=== PATIENT | male | born 1940 | race Caucasian/White ===

== ENCOUNTER → 2016-04-26 | Outpatient (CLI) | payer MEDICARE ==
[~2016-04-26] MED LIST: /PANT40TA PO; ADV250INH INH; ATOR1TAB19 PO; BISO5TAB5 PO; COUM10TA PO; COUM7.5T PO; COUMADIN PO; DOCU100C PO; DOCU100T PO; FERR325T3 PO; FLUT1LOT; FLUT50SP; FURO20TA2 PO; K-TA10TA2 PO; LASI40TA PO; LEVO500T PO; LIPI10TA PO; LOSA50TA20 PO; META28.32 PO; METAMUCIL PO; MICR10CA PO; MIRA3350 PO; ONE50TAB PO; POTA20IN PO; SPIR1CAP INH; SPIR25TA2 PO; SPRIVIA INH; TYLE325T5 PO; VITAMIN PO; XOPEAER INH; [UNRECOGNIZED DRUG - OTHER] INH; coumadin PO
[2016-04-26 09:19] LABS: INR 2.83
== END ==
LOC: M LAB 08:28
PROVIDERS: ATTEND Internal Medicine Cardiovascular Disease
DX: I48.91 Unspecified atrial fibrillation (principal)

== ENCOUNTER → 2016-05-17 | Outpatient (CLI) | payer MEDICARE ==
[2016-05-17 08:11] LABS: INR 2.14
== END ==
LOC: M LAB 07:39
PROVIDERS: ATTEND Internal Medicine Cardiovascular Disease
DX: I48.91 Unspecified atrial fibrillation (principal)

== ENCOUNTER → 2016-05-24 | Outpatient (CLI) | payer MEDICARE ==
[2016-05-24 09:26] LABS: INR 2.49
== END ==
LOC: M LAB 08:04
PROVIDERS: ATTEND Nurse Practitioner Family
DX: I48.91 Unspecified atrial fibrillation (principal); Z51.81 Encounter for therapeutic drug level monitoring; Z79.01 Long term (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 of anticoagulants

== ENCOUNTER → 2016-06-07 | Outpatient (CLI) | payer MEDICARE ==
[2016-06-07 10:12] LABS: INR 2.6
== END ==
LOC: M LAB 09:26
PROVIDERS: ATTEND Nurse Practitioner Family
DX: Z51.81 Encounter for therapeutic drug level monitoring (principal); Z79.01 Long term (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 of anticoagulants

== ENCOUNTER → 2016-07-05 | Outpatient (CLI) | payer MEDICARE ==
[2016-07-05 09:51] LABS: INR 2.32
== END ==
LOC: M LAB 08:46
PROVIDERS: ATTEND Physician Assistant
DX: I48.91 Unspecified atrial fibrillation (principal)

== ENCOUNTER → 2016-07-17 | Outpatient (CLI) | payer MEDICARE ==
[2016-07-17 10:16] LABS: ALBUMIN 3.3 GM/DL (3.2-5.2); ALBUMIN/GLOBULIN RATIO 1.06 (1.00-1.93); ALKALINE PHOSPHATASE 48 U/L (45-117); ALT/SGPT 16 U/L (12-78); ANION GAP 7 MEQ/L (8-16); AST/SGOT 14 U/L (15-37); BILIRUBIN,TOTAL 0.3 MG/DL (0.2-1.0); BLOOD UREA NITROGEN 24 MG/DL (7-18); CALCIUM LEVEL 7.7 MG/DL (8.8-10.2); CARBON DIOXIDE LEVEL 28 MEQ/L (21-32); CHLORIDE LEVEL 106 MEQ/L (98-107); CHOLESTEROL LEVEL 144 MG/DL (<200); CREATININE FOR GFR 1.23 MG/DL (0.70-1.30); GLOMERULAR FILTRATION RATE > 60.0 (>42); GLUCOSE, FASTING 101 MG/DL (83-110); SODIUM LEVEL 141 MEQ/L (136-145); TOTAL PROTEIN 6.4 GM/DL (6.4-8.2); TRIGLYCERIDES LEVEL 134 MG/DL (<150)
== END ==
LOC: M LAB 09:22
PROVIDERS: ATTEND Physician Assistant
DX: I25.10 Atherosclerotic heart disease of native coronary artery without angina pectoris (principal)

== ENCOUNTER → 2016-08-02 | Outpatient (CLI) | payer MEDICARE ==
[2016-08-02 10:15] LABS: INR 3.05
== END ==
LOC: M LAB 09:32
PROVIDERS: ATTEND Nurse Practitioner Family
DX: Z51.81 Encounter for therapeutic drug level monitoring (principal); Z79.01 Long term (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 of anticoagulants

== ENCOUNTER → 2016-08-30 | Outpatient (CLI) | payer MEDICARE ==
[2016-08-30 08:47] LABS: INR 3.04
== END ==
LOC: M LAB 08:21
PROVIDERS: ATTEND Nurse Practitioner Family
DX: I48.91 Unspecified atrial fibrillation (principal); Z51.81 Encounter for therapeutic drug level monitoring; Z79.01 Long term (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 of anticoagulants

== ENCOUNTER → 2016-09-27 | Outpatient (CLI) | payer MEDICARE ==
[2016-09-27 08:08] LABS: MEAN CORPUSCULAR HEMOGLOBIN 31.9 pg (27.0-33.0); MEAN CORPUSCULAR HGB CONC 32.4 g/dl (32.0-36.5); MEAN CORPUSCULAR VOLUME 98.3 fl (80.0-96.0); RED CELL DISTRIBUTION WIDTH 14.6 % (11.5-14.5)
[2016-09-27 08:43] LABS: ALBUMIN 3.2 GM/DL (3.2-5.2); CALCIUM LEVEL 7.9 MG/DL (8.8-10.2); CREATININE FOR GFR 1.32 MG/DL (0.70-1.30); GLOMERULAR FILTRATION RATE 56.3 (>42); MAGNESIUM LEVEL 2.7 MG/DL (1.8-2.4); PHOSPHORUS LEVEL 3.3 MG/DL (2.5-4.9); POTASSIUM SERUM 4.2 MEQ/L (3.5-5.1)
== END ==
LOC: M LAB 07:37
PROVIDERS: ATTEND Physician Assistant
DX: I50.32 Chronic diastolic (congestive) heart failure (principal); I48.2 Chronic atrial fibrillation; Z95.2 Presence of prosthetic heart valve; Z51.81 Encounter for therapeutic drug level monitoring; Z79.01 Long term (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 of anticoagulants

== ENCOUNTER → 2016-09-27 | Outpatient (CLI) | payer MEDICARE ==
[2016-09-27 08:26] LABS: INR 3.13
== END ==
LOC: M LAB 07:39
PROVIDERS: ATTEND Nurse Practitioner Family
DX: Z51.81 Encounter for therapeutic drug level monitoring (principal); Z79.01 Long term (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 of anticoagulants; I48.91 Unspecified atrial fibrillation

== ENCOUNTER → 2016-10-25 | Outpatient (CLI) | payer MEDICARE ==
[~2016-10-25] MED LIST changes: +ASPI81TA21 PO; +ATOR1TAB21 PO; -DOCU100C PO; +DOCU100C16 PO; +ERGO500014 PO; +FLON1SPR; +FOLI1TAB4 PO; +FURO40TA2 PO; +LEVAINH INH; +LOSA25TA8 PO; +METO5TA; +NITR0.4S14 SL; +OMEP20CA3 PO; +OMEP40CA2 PO; +OPTI0.5D5 OS; +POTA1TAB14 PO; +PROAAER10 INH; +SPIR1AER INH; +VITA10006 PO; +VITA200028 PO; +VITMTA PO; -XOPEAER INH
[2016-10-25 10:49] LABS: INR 2.85
== END ==
LOC: M LAB 09:52
PROVIDERS: ATTEND Nurse Practitioner Family
DX: I48.91 Unspecified atrial fibrillation (principal); Z79.01 Long term (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 of anticoagulants

== ENCOUNTER 2016-11-17 17:10 | Inpatient (IN) | payer MEDICARE ==
[~2016-11-17] VITALS: Ht 182.9 cm; Wt 127.5 kg
[~2016-11-17 17:10] MED LIST changes: -ASPI81TA21 PO; -ATOR1TAB21 PO; -ERGO500014 PO; -FLON1SPR; -FOLI1TAB4 PO; -FURO40TA2 PO; -LOSA25TA8 PO; -METO5TA; -NITR0.4S14 SL; -OMEP20CA3 PO; -OMEP40CA2 PO; -OPTI0.5D5 OS; -POTA1TAB14 PO; -PROAAER10 INH; -SPIR1AER INH; -VITA10006 PO; -VITA200028 PO; -VITMTA PO
[2016-11-17] MEDS ORDERED: METO5TA (17:43)
[2016-11-17] MEDS ORDERED: NS 500 ML IV ONE (18:15)
[2016-11-17 18:29] LABS: BASO # 0.1 K/mm3 (0.0-0.2); BASO % 0.7 % (0.0-1.0); EOS # 0.2 K/mm3 (0.0-0.50); EOS % 2.4 % (0.0-3.0); LARGE UNSTAINED CELL # 0.1 K/mm3 (0.0-0.4); LARGE UNSTAINED CELL % 1.4 % (0.0-4.0); LYMPH % 11.1 % (24.0-44.0); MEAN CORPUSCULAR HEMOGLOBIN 31.8 pg (27.0-33.0); MEAN CORPUSCULAR HGB CONC 32.7 g/dl (32.0-36.5); MEAN CORPUSCULAR VOLUME 97.3 fl (80.0-96.0); MONO # 0.6 K/mm3 (0.0-0.8); MONO % 6.8 % (0.0-5.0); NEUTROPHILS # 6.3 K/mm3 (1.8-7.7); NEUTROPHILS % 77.6 % (36.0-66.0); PLATELET COUNT, AUTOMATED 285 k/mm3 (150-450); RED CELL DISTRIBUTION WIDTH 13.8 % (11.5-14.5); WHITE BLOOD COUNT 8.1 K/mm3 (4.0-10.0)
[2016-11-17 18:37] LABS: INR 3.24
--- NOTE | 2016-11-17 18:40 | REP ---
REASON: Renal failure. COMPARISON: Multiple, latest, 01/26/2015. The technique utilized in obtaining the radiograph has magnified the cardiac silhouette and accentuated the interstitial markings. There is global cardiomegaly status quo. There has been previous median sternotomy. There are chronic lung base changes. No acute patchy parenchymal opacities or pleural effusions have developed. There is no change in the osseous structures. IMPRESSION: Cardiomegaly and chronic changes without evidence of acute cardiopulmonary disease. Signed by Ganesh Jacobson DO 11/17/2016 07:52 P
[2016-11-17 18:47] LABS: CALCIUM LEVEL 8.5 MG/DL (8.8-10.2); CREATININE FOR GFR 3.05 MG/DL (0.70-1.30); GLOMERULAR FILTRATION RATE 21.4 (>42); POTASSIUM SERUM 3.4 MEQ/L (3.5-5.1)
[2016-11-17] MEDS ORDERED: ATOR1TAB21 PO (19:48)
[2016-11-17] MEDS ORDERED: POTA1TAB14 PO (19:51)
[2016-11-17] MEDS ORDERED: VITA10006 PO (19:52)
[2016-11-17] MEDS ORDERED: NITR0.4S14 SL (19:52)
[2016-11-17] MEDS ORDERED: VITMTA PO (19:52)
[2016-11-17] MEDS ORDERED: ASPI81TA21 PO (19:52)
[2016-11-17] MEDS ORDERED: OMEP20CA3 PO (19:53)
[2016-11-17] MEDS: ADVAIR HFA 115/21MCG INHALER INH SCH (21:00)
[2016-11-17] MEDS ORDERED: NS 1,000 ML IV SCH (21:20)
[2016-11-17] MEDS ORDERED: ONDANSETRON 4MG/2ML VIAL (J2405) IV PRN (21:30)
[2016-11-17] MEDS ORDERED: POTASSIUM CHLORIDE 10 MEQ SR TABLET PO ONE (21:30)
[2016-11-17] MEDS ORDERED: NITROGLYCERIN 0.4 MG SUBL TABLET SL PRN (21:30)
--- NOTE | 2016-11-17 21:41 | HPEPDOC ---
Medical History and Physical Date of Admission History and Physical PRIMARY CARE PROVIDER: Dr. Tiago Jo ATTENDING: Dr. Matteo Martin CHIEF COMPLAINT: Abnormal labs HISTORY OF PRESENT ILLNESS: This is a 76-year-old male past history of diastolic heart failure, hypertension , aortic stenosis status post aortic valve replacement as well as atrial fibrillation on Coumadin, chronic interstitial fibrosis, hypertension, BLANE not on CPAP who presents with notable abnormal labs. The patient has been having lower extremity edema which has been managed by his primary care physician. Patient states that he had his Lasix increased followed by addition of metolazone over the past 10 days. The patient states that the swelling is significantly improved. 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 Patient was then advised to go to the emergency department. Patient states he is urinating well. Denies any dysuria. No chest pain/ shortness of breath/palpitations. No nausea/vomiting/abdominal pain. PAST MEDICAL HISTORY: As per HPI PAST SURGICAL HISTORY: AVR, CAD status post PCI, tonsillectomy SOCIAL HISTORY: History of tobacco abuse 2 packs per day 30 years. Quit many years ago. No alcohol or illicit drug use. FAMILY HISTORY: Noncontributory ALLERGIES: Please see below. REVIEW OF SYSTEMS: HEENT: [Denies sore throat/headache] CARDIOVASCULAR: [Denies chest pain/palpitations] RESPIRATORY: [Denies shortness of breath/cough] GASTROINTESTINAL: [denies nausea/vomiting] GENITOURINARY: [Denies dysuria/urinary urgency]. MUSCULOSKELETAL: [Denies myalgias/arthralgias] NEUROLOGICAL: [Denies any focal weakness] HOME MEDICATIONS: Please see below. PHYSICAL EXAMINATION: Vitals: (see below) General: No acute distress, laying comfortably in bed. HEENT: Moist mucous membranes. Neck: No JVD or lymphadenopathy Cardiac: Irregularly irregular, No murmurs Pulm: Clear to auscultation b/l. No wheezing, rhonchi Abd: NT/ND + BS Ext: 1+ pitting edema bilateral lower extremities. No cyanosis. LABORATORY DATA: See below. IMAGING: Chest x-ray 11/17/16 IMPRESSION:Cardiomegaly and chronic changes without evidence of acute cardiopulmonary disease. MICROBIOLOGY: Please see below. ASSESSMENT/PLAN: 1. Acute renal failure secondary to diuretics as well as losartan. We will hold Lasix, metolazone, spironolactone. Gentle hydration. Continue to monitor renal function. Nephrology consulted. 2. History of diastolic heart failure- compensated. Diuretics on hold. 3. History of atrial fibrillation- on Coumadin. Supratherapeutic. Coumadin held at this time. Consider restarting if INR less than 3 tomorrow. 4. Hypertension- patient is relatively hypotensive on admission. Improved with hydration. Hold losartan and diuretics. 5. History of obstructive sleep apnea not on CPAP- states he'll be going for another sleep study soon. 6. Chronic anemia- no acute bleeding at this time. States he has a colonoscopy scheduled for Sunday with plan to bridge him to heparin prior to the colonoscopy. 7. 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 History of CAD status post PCI- on beta johnnie, aspirin, statin. ? If aspirin should be continued with his current anticoagulation. DVT prophylaxis- on Coumadin Patient followed by Dr. Martin starting 11/18/16 at 7 AM. Vital Signs Vital Signs Date Time Temp Pulse Resp B/P (MAP) Pulse Ox O2 Delivery O2 Flow Rate FiO2 11/17/16 20:10 60 16 99/47 (64) 96 Room Air 11/17/16 17:11 97.6 Laboratory Data Labs 24H Laboratory Tests 2 11/17/16 17:58: White Blood Count 8.1, Red Blood Count 2.98L, Hemoglobin 9.5L, Hematocrit 29.0L , Mean Corpuscular Volume 97.3H, Mean Corpuscular Hemoglobin 31.8, Mean Corpuscular Hemoglobin Concent 32.7, Red Cell Distribution Width 13.8, Platelet Count 285, Neutrophils (%) (Auto) 77.6H, Lymphocytes (%) (Auto) 11.1L, Monocytes (%) (Auto) 6.8H, Eosinophils (%) (Auto) 2.4, Basophils (%) (Auto) 0.7 , Neutrophils # (Auto) 6.3, Lymphocytes # (Auto) 1.0L, Monocytes # (Auto) 0.6, Eosinophils # (Auto) 0.2, Basophils # (Auto) 0.1, Large Unclassified Cells % 1.4 , Large Unclassified Cells # 0.1, Prothrombin Time 34.6H, Prothromb Time International Ratio 3.24, Activated Partial Thromboplast Time 47.9H, Anion Gap 13, Glomerular Filtration Rate 21.4L, Blood Urea Nitrogen 105H, Creatinine 3.05H , Sodium Level 137, Potassium Level 3.4L, Chloride Level 92L, Carbon Dioxide Level 32, Calcium Level 8.5L, Thyroid Stimulating Hormone (TSH) 5.870H 11/17/16 18:46: Urine Appearance CLEAR, Urine Color YELLOW, Urine pH 5.0, Urine Specific Avenue 1.012, Urine Protein NEGATIVE, Urine Glucose (UA) NEGATIVE, Urine Ketones NEGATIVE, Urine Urobilinogen 0.2, Urine Bilirubin NEGATIVE, Urine Leukocyte Esterase 1+H, Urine Blood NEGATIVE, Urine Nitrite NEGATIVE, Urine WBC (Auto) 6H, Urine RBC (Auto) 4H, Urine Hyaline Casts (Auto) 38, Urine Bacteria ( Auto) NEGATIVE, Urine Squamous Epithelial Cells 0, Urine Amorphous Sediment SMALLH, Urine Mucus (Auto) SMALL, Urine Sperm (Auto) CBC/BMP Laboratory Tests 11/17/16 17:58 Red Blood Count 2.98 L, Mean Corpuscular Volume 97.3 H, Mean Corpuscular Hemoglobin 31.8, Mean Corpuscular Hemoglobin Concent 32.7, Red Cell Distribution Width 13.8, Neutrophils (%) (Auto) 77.6 H, Lymphocytes (%) (Auto) 11.1 L, Monocytes (%) (Auto) 6.8 H, Eosinophils (%) (Auto) 2.4, Basophils (%) ( Auto) 0.7, Neutrophils # (Auto) 6.3, Lymphocytes # (Auto) 1.0 L, Monocytes # ( Auto) 0.6, Eosinophils # (Auto) 0.2, Basophils # (Auto) 0.1, Calcium Level 8.5 L Home Medications Scheduled Ascorbic Acid (Vitamin C) 1,000 Mg Tab, 1,000 MG PO DAILY Aspirin (Aspir-Low) 81 Mg Tab, 81 MG PO DAILY Atorvastatin Calcium (Atorvastatin Calcium) 20 Mg Tab, 20 MG PO QHS Bisoprolol Fumarate (Bisoprolol Fumarate) 5 Mg Tab, 5 MG PO QAM Ferrous Sulfate (Ferrous Sulfate) 325 Mg Tab, 325 MG PO BID Furosemide (Furosemide) 20 Mg Tab, 30 MG PO TID Losartan Potassium (Losartan Potassium) 50 Mg Tab, 50 MG PO QHS Multivitamins *[facility] STOCKED* (Thera M Plus *[facility] STOCKED*) 1 Tab Tab, 1 TAB PO DAILY Omeprazole (Omeprazole) 20 Mg Cap, 20 MG PO DAILY Polyethylene Glycol (Miralax) 1 Pow Pow, 17 GM PO DAILY Potassium Chloride (Potassium Chloride ER) 20 Meq Tab, 20 MEQ PO DAILY Salmeterol/Fluticasone (Advair Diskus 250-50 Mcg/Dose) 14 Puff/Inhaler Aerp, 1 PUFF INH BID Spironolactone (Spironolactone) 25 Mg Tab, 25 MG PO DAILY Tiotropium [place] Monohydrate (Spiriva Handihaler) 18 Mcg Cap, 18 MCG INH QHS Warfarin Sod (Coumadin) 10 Mg Tab, 10 MG PO 2XW SUNDAY AND THURSDAYS Warfarin Sod (Coumadin) 7.5 Mg Tab, 7.5 MG PO 5XW MON, WED, SUN, SAT, SUN Scheduled PRN Nitroglycerin (Nitroglycerin) 0.4 Mg Sub, 0.4 MG SL Q5MP PRN for CHEST PAIN Allergies Coded Allergies: No Known Drug Allergy (Unverified Allergy, Unknown, 07/24/12) NICOLE YAN MD Nov 17, 2016 21:41
[2016-11-17] MEDS: ATORVASTATIN 20 MG TAB PO SCH (22:46)
[2016-11-17 23:15] VITALS: BP 122/55
[2016-11-18] VITALS: BP 122/55
[2016-11-18 04:00] VITALS: BP 122/58
[2016-11-18] MEDS: TIOTROPIUM INHALER/CAPSULE (SPIRIVA) INH SCH (07:17)
[2016-11-18 07:35] LABS: MEAN CORPUSCULAR HEMOGLOBIN 33.1 pg (27.0-33.0); MEAN CORPUSCULAR HGB CONC 33.3 g/dl (32.0-36.5); MEAN CORPUSCULAR VOLUME 99.4 fl (80.0-96.0); RED CELL DISTRIBUTION WIDTH 13.9 % (11.5-14.5)
[2016-11-18 07:43] LABS: INR 3.68
[2016-11-18 07:57] LABS: ALBUMIN 3.3 GM/DL (3.2-5.2); ALBUMIN/GLOBULIN RATIO 0.92 (1.00-1.93); BILIRUBIN,TOTAL 0.2 MG/DL (0.2-1.0); CALCIUM LEVEL 8.7 MG/DL (8.8-10.2); CREATININE FOR GFR 2.03 MG/DL (0.70-1.30); GLOMERULAR FILTRATION RATE 34.3 (>42); POTASSIUM SERUM 3.5 MEQ/L (3.5-5.1); TOTAL PROTEIN 6.9 GM/DL (6.4-8.2)
[2016-11-18 08:00] VITALS: BP 111/56
[2016-11-18] MEDS ORDERED: POTASSIUM CHLORIDE 10 MEQ SR TABLET PO ONE (08:30)
[2016-11-18] MEDS: MIRALAX *UNIT DOSE* 17GM PACKET PO SCH (09:38)
[2016-11-18] MEDS: ASCORBIC ACID 500 MG TAB PO SCH (09:38)
[2016-11-18] MEDS: OMEPRAZOLE 20 MG CAP PO SCH (09:39)
[2016-11-18] MEDS: FERROUS SULFATE 325MG TAB PO SCH ×2 (09:39→21:37)
[2016-11-18] MEDS: ASPIRIN 81 MG ENTERIC TAB PO SCH (09:39)
[2016-11-18] MEDS: MULTIVITAMINS/MINERALS THERAP 1 TAB PO SCH (09:39)
[2016-11-18] MEDS: BISOPROLOL FUMARATE 5 MG TAB PO SCH (09:42)
[2016-11-18] MEDS: ADVAIR HFA 115/21MCG INHALER INH SCH ×2 (10:52→19:51)
--- NOTE | 2016-11-18 11:47 | IPN ---
DATE OF EXAM: 11/18/2016 SUBJECTIVE: Today, the patient tells me that he is feeling well. He tells me that he has not felt unwell throughout the last week. e denies chest pain, shortness of breath, fevers, chills, nausea, vomiting, or diarrhea. OBJECTIVE: Vital Signs: Temperature 97.5. Pulse 63, irregularly irregular. Respiratory rate 18. Blood pressure (BP) 122/58. Oxygen saturation 97% on room air. General: He is a very pleasant, obese, elderly, man sitting in a recliner. He does not appear to be in any acute distress whatsoever. HEENT: Cranial nerves II-XII grossly intact. He has moist mucous membranes. No elevation of central venous pressure (CVP). He does have enlarged neck. Cardiovascular Exam: S1, S2, irregularly irregular. Respiratory Exam: Clear to auscultation. Abdominal Exam: Grossly obese. Bowel sounds are present. The abdomen is soft. Extremities: He does have trace edema bilaterally. LABORATORY STUDIES: Today, WBC 7.0, hemoglobin 9.1, hematocrit 27.2, platelet count 234. Chemistry panel: Sodium 135, potassium 3.5, chloride 95, bicarbonate 31, BUN 94, down from 105, creatinine 2.0, down from 3.0. He had a TSH, which was mildly elevated at 5.7. INR is 3.6. It is mildly abnormal. IMAGING: The patient had a chest x-ray that revealed cardiomegaly and chronic changes without evidence of acute cardiopulmonary disease. ASSESSMENT AND PLAN: This is a 76-year-old man with acute on chronic kidney disease. PROBLEMS: 1. Acute on chronic kidney disease. The patient is on a diuretic and his diuretic has recently been titrated up with the addition of metolazone. It appears though he has been over diuresed. At this time, his diuretics have been held. He has been gently hydrated and his renal function is returning to his baseline. Creatinine is 2 today. His baseline appears to be approximately 1.2. We will continue him on metolazone and aldactone, as well as his angiotensin receptor johnnie (ARB). Nephrology has been consulted at the time of admission. 2. History of diastolic heart failure. The patient appears compensated. He does have bilateral peripheral edema. I suspect it may be related to chronic venous stasis. 3. Atrial fibrillation. He is on Coumadin. His international normalized ratio (INR) is supratherapeutic and thus, his Coumadin is being held. 4. Hypertension. His BP was soft at the time of admission. His antihypertensives. Some of them are on hold secondary to the kidney injury. We are gently hydrating him. 5. History of obstructive sleep apnea. The patient is noncompliant with continuous positive airway pressure (CPAP). He is scheduled to undergo a repeat sleep study soon. 6. Chronic anemia. He has a colonoscopy scheduled for on Sunday, and I suspect he will be able to be discharged prior to then and he will be able to make that appointment. 7. Aortic stenosis status post aortic valve replacement. 8. Coronary artery disease status post PCI. He is on aspirin, beta-johnnie and a statin. 9. Deep vein thrombosis (DVT) prophylaxis. He has a supratherapeutic INR. 10. Gastroesophageal reflux disease. He is on omeprazole. DISPOSITION: I suspect the patient may be able to be discharged as early as tomorrow.
[2016-11-18 12:00] VITALS: BP 123/56
[2016-11-18 12:17] LABS: MAGNESIUM LEVEL 3.2 MG/DL (1.8-2.4); PERCENT SATURATION 17.4 % (19.7-37.4)
[2016-11-18 16:00] VITALS: BP 143/65
[2016-11-18 20:00] VITALS: BP 149/67
[2016-11-18] MEDS: ATORVASTATIN 20 MG TAB PO SCH (21:37)
[2016-11-19] VITALS: BP 143/65
--- NOTE | 2016-11-19 02:31 | ECGEPIP ---
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
[2016-11-19 04:00] VITALS: BP 126/58
--- NOTE | 2016-11-19 05:28 | IPN ---
DATE OF SERVICE: 11/18/2016 Mr. Roy is seen this morning on his bedside. He is sitting in the chair and feels well. He was seen last evening due to acute renal failure. He has been receiving intravenous (IV) fluid. He reports eating well and denies any nausea, vomiting, dyspnea or chest pain. PHYSICAL EXAMINATION: Temperature 97.6 degrees Fahrenheit, heart rate 60 per minute and respiratory rate 18 per minute. Blood pressure 118/83 mmHg and oxygen saturation 97% on room air. Head is atraumatic. Neck is supple and without any jugular venous distention (JVD) or thyroid enlargement. He has mild hepatojugular reflux. Heart sounds are irregular with prosthetic valve sounds. Lungs sound clear to auscultation bilaterally. Abdomen: Soft and nontender and without palpable organomegaly. Bowel sounds normal. Extremities have no cyanosis or clubbing. He does have trace of ankle edema. Neurologically, he is awake, alert and oriented times three. Today's labs show sodium 135 and potassium 3.5. BUN 94 and creatinine 2.03. Chloride is 31. WBC count 7.0, hemoglobin 9.1 and hematocrit 27.3. PROBLEMS: 1. Acute renal failure superimposed on chronic kidney disease. Related to prerenal azotemia caused by over diuresis. The patient was given intravenous (IV) fluid. His oral intake is also adequate. I will stop his IV fluid in view of his prior history of congestive heart failure and atrial fibrillation. His diuretics will remain on hold for the next 24 hours. 2. Hypokalemia. Potassium is being replaced with oral potassium chloride 40 mEq. His magnesium level is also being checked. 3. Anemia most likely related to iron deficiency caused by chronic blood loss. Iron studies are being added. Depending upon his iron results, we will give him either IV iron or consider with Aranesp. At present, we will continue with oral iron supplement. 4. History of diastolic congestive heart failure and atrial fibrillation. His ventricular rate is well-controlled. Volume status is well-compensated. We will continue to hold his diuretics for next 24 hours.
[2016-11-19 05:34] LABS: MEAN CORPUSCULAR HEMOGLOBIN 33.1 pg (27.0-33.0); MEAN CORPUSCULAR HGB CONC 33.3 g/dl (32.0-36.5); MEAN CORPUSCULAR VOLUME 99.5 fl (80.0-96.0); RED CELL DISTRIBUTION WIDTH 13.4 % (11.5-14.5); WHITE BLOOD COUNT 6.9 K/mm3 (4.0-10.0)
[2016-11-19 05:46] LABS: CALCIUM LEVEL 8.5 MG/DL (8.8-10.2); CREATININE FOR GFR 1.52 MG/DL (0.70-1.30); GLOMERULAR FILTRATION RATE 47.8 (>42); POTASSIUM SERUM 3.7 MEQ/L (3.5-5.1)
[2016-11-19] MEDS: ADVAIR HFA 115/21MCG INHALER INH SCH ×2 (07:08→19:50)
[2016-11-19] MEDS: TIOTROPIUM INHALER/CAPSULE (SPIRIVA) INH SCH (07:08)
[2016-11-19 08:00] VITALS: BP 124/60
[2016-11-19 08:21] LABS: INR 3.5
[2016-11-19] MEDS: ASCORBIC ACID 500 MG TAB PO SCH (08:51)
[2016-11-19] MEDS: OMEPRAZOLE 20 MG CAP PO SCH (08:51)
[2016-11-19] MEDS: MULTIVITAMINS/MINERALS THERAP 1 TAB PO SCH (08:51)
[2016-11-19] MEDS: FERROUS SULFATE 325MG TAB PO SCH ×2 (08:51→21:15)
[2016-11-19] MEDS: ASPIRIN 81 MG ENTERIC TAB PO SCH (08:51)
[2016-11-19] MEDS: MIRALAX *UNIT DOSE* 17GM PACKET PO SCH (08:51)
[2016-11-19] MEDS: BISOPROLOL FUMARATE 5 MG TAB PO SCH (08:54)
--- NOTE | 2016-11-19 09:56 | CR ---
DATE OF CONSULTATION: 11/17/2016 REQUESTING: Beny Wall MD REASON FOR CONSULTATION: Acute renal failure. HISTORY OF PRESENT ILLNESS: Mr. Roy is 76-year-old gentleman with known history of diastolic congestive heart failure, hypertension, aortic stenosis, status post aortic valve replacement and atrial fibrillation. The patient and his report that he had worsening leg edema due to which his diuretic was increased by the primary physician with addition of metolazone. He did diurese; however, yesterday he had labs done by the cardiology office and his BUN was noticed to be above 90 and creatinine close to 3 due to which he was sent to the emergency room. His repeat labs in the emergency room showed about 100 mg of BUN and creatinine 3.0. He is admitted and a nephrology consultation was requested. The patient is seen in the evening of November 17. PAST MEDICAL AND SURGICAL HISTORY SIGNIFICANT FOR: 1. Longstanding atrial fibrillation. 2. Aortic stenosis, status post aortic valve replacement. 3. Hypertension. 4. Diastolic congestive heart failure. 5. History of obstructive sleep apnea on CPAP. 6. History of chronic interstitial fibrosis. 7. History of hyperlipidemia. 8. History of gastroesophageal reflux disease. 9. History of anemia. MEDICATIONS: Home medications include vitamin C 1000 mg daily, aspirin 81 mg daily, atorvastatin 20 mg daily, bisoprolol 5 mg daily, ferrous sulfate 325 mg twice a day, Lasix 30 mg three times a day, metolazone 2.5 mg daily for last week or 10 days, losartan 50 mg daily, multivitamin one tablet daily, omeprazole 20 mg daily, MiraLax one packet daily, potassium chloride 20 mEq daily, Advair discus 250/50 twice a day, spironolactone 25 mg daily, Spiriva inhaler 18 mcg daily, Coumadin 10 mg on Sunday and and 7.5 mg daily rest of the week. ALLERGIES: He has no known drug allergies. PERSONAL AND SOCIAL HISTORY: The patient is and lives with his . He quit smoking many years ago and did have history of two packs of smoking daily. There is no history of alcohol or drug use. FAMILY HISTORY: Negative for end-stage renal disease. REVIEW OF SYSTEMS: The patient denies any fever or chills. He reports not feeling well for the last couple of weeks. Initially had worsening leg edema and increasing shortness of breath. His leg edema has improved. However, he still did not feel very well. Ears, nose and throat are unremarkable. Cardiovascular system: Significant for history of atrial fibrillation and prior aortic valve replacement with metallic valve. He has been on chronic anticoagulation. GASTROINTESTINAL (GI) SYSTEM: Negative for nausea, vomiting or diarrhea. He denies any rectal bleeding or black colored stools. GENITOURINARY () SYSTEM: Negative for dysuria, hematuria or kidney stones. His baseline kidney function is about stage III. ENDOCRINE SYSTEM: Negative for diabetes or thyroid problems. HEMATOLOGICAL SYSTEM: Significant for anemia and chronic anticoagulation. PSYCHOSOCIAL SYSTEM: Negative for depression, anxiety. NEUROLOGICAL SYSTEM: Negative for seizures or stroke. SKIN: Negative for rash or ulcers. MUSCULOSKELETAL SYSTEM: Significant for increasing leg edema. He denies any significant arthritis. PHYSICAL EXAMINATION: The patient is awake and alert at the time of my visit. His is also present in the room. Temperature 97.5 degrees Fahrenheit, Heart rate 64 per minute and respiratory rate 18 per minute. Blood pressure 122/58 mmHg and oxygen saturation 97% on room air. HEAD: Atraumatic. Ears, nose and throat are unremarkable. NECK: Supple and without any jugular venous distension (JVD). There is no thyroid enlargement. HEART: Sounds are irregular with prosthetic valve click. LUNGS: Sound clear to auscultation bilaterally. ABDOMEN: Soft and nontender and without palpable organomegaly. Bowel sounds are normal. EXTREMITIES: Have trace of chronic edema on his ankles. There is no cyanosis or clubbing. SKIN: Has no rash or ulcers. NEUROLOGICAL: He is awake, alert and oriented times three. LABORATORY DATA: Sodium 137 and potassium 3.4. BUN 105 and creatinine 3.05. Glucose 120, calcium 8.5. Thyroid simulating hormone (TSH) level is 5.87. White blood count (WBC) 8.1, hemoglobin 9.5 and hematocrit 29.0. INR 3.24. Urinalysis showed 6 white blood cells and 4 red blood cells. There is no protein or blood on the dipstick. Chest x-ray done in the emergency room showed cardiomegaly with chronic changes and no evidence of effusion or infiltrate. PROBLEMS: 1. Acute renal failure superimposed on chronic kidney disease. The patient is known to have stage III of chronic kidney disease at baseline. His serum creatinine has been in the range of 1.3 mg/dL earlier this year. Now his kidney function has worsened significantly. Acute renal failure is related to over diuresis. The patient is receiving IV fluid at 60 per hour. His diuretics have already been stopped. Will need to use caution in giving him IV fluids as he had congestive heart failure with shortness of breath and increased leg edema for which he required increased diuretic dose. We will reevaluate him in the morning. 2. History of congestive heart failure and atrial fibrillation. His ventricular rate is well-controlled. At present, he is well compensated. His diuretics have been put on hold. He is receiving IV fluid and will have to monitor closely. 3. Anemia and possibility of gastrointestinal (GI) blood loss. He has been on chronic anticoagulation with INR 3.24. It is possible that he may have some low grade blood loss. We will add iron studies to his lab work. At present, there is no indication for transfusion and will have to monitor his complete blood count (CBC). 4. Hypokalemia is related to diuretics. We will replace his potassium with oral potassium chloride and recheck his electrolytes. Will also check his magnesium level. I thank you for involving me in the care of Mr. Roy. I will follow him along with you.
[2016-11-19] MEDS ORDERED: POTASSIUM CHLORIDE 10 MEQ SR TABLET PO ONE (12:00)
--- NOTE | 2016-11-19 12:37 | IPN ---
DATE: 11/19/2016 SUBJECTIVE: The patient feels well. He is asymptomatic as he has been throughout his entire presentation. OBJECTIVE: VITAL SIGNS: Temperature 98,1, pulse 70, respiratory rate 18, blood pressure 124/60, oxygen saturation 97% on room air. GENERAL: He is a pleasant, elderly man sitting on a couch. He does not appear to be in any acute distress. HEENT: Cranial nerves II-XII are grossly intact. Moist mucous membranes. CARDIOVASCULAR EXAM: S1, S2, regular. He has a mechanical S2. RESPIRATORY EXAM: Clear. ABDOMINAL EXAM: Obese. EXTREMITIES: No clubbing or cyanosis. There is 1+ edema bilaterally. LABORATORY STUDIES: WBC 6.9, hemoglobin 8.8, hematocrit 26.5, platelet count 232. Chemistry panel: Sodium 141, potassium 3.7, repleted, chloride 101, bicarbonate 32, BUN 75 down from a peak of 105, creatinine 1.5 down from a peak of 3. His iron level is low. TSH is slightly elevated. INR today is 3.5. No new imaging. ASSESSMENT AND PLAN: This is a 76-year-old man with acute on chronic kidney disease. PROBLEMS: 1. Acute on chronic kidney disease. Dr. John's help has been appreciated. His diuretics are on hold. His renal function is improving. He is no longer on IV fluids. We are replacing his potassium. 2. Chronic anemia. The patient has been undergoing an outpatient preparation for colonoscopy this coming Sunday. The patient follows with Dr. Barriga and as per Dr. Barriga, related to his mechanical aortic valve, he is not to be bridged with Lovenox. His international normalized ratio (INR) should be allowed to naturally come down and be started on a heparin drip when his INR is below 2.5. Once his INR is appropriately low, he can then undergo colonoscopy with Dr. Giles. Following the colonoscopy, he will have to be bridged once again on the heparin drip until his INR is therapeutic once again 2.5 to .5. The patient will remain inpatient for the duration of this. I suspect it will take a week and a half given his elevated INR today. I think the earliest he would be able to have a colonoscopy is Sunday, but I think it is more likely Sunday. I did discuss the case with Dr. Giles, and we confirmed the plan. 3. History of diastolic congestive heart failure. Appears fairly well compensated. He does have bilateral peripheral edema. It may be related to chronic venous stasis. 4. Atrial fibrillation. He is anticoagulated with Coumadin and will be anticoagulated as outlined above. 5. Hypertension. Some of his antihypertensives had been held at the time of admission. 6. Obstructive sleep apnea. He is noncompliant with continuous positive airway pressure (CPAP). He is scheduled to undergo a repeat sleep study in the near future. 7. Aortic stenosis, status post mechanical aortic valve. Anticoagulation as outlined above. 8. Coronary artery disease, status post percutaneous coronary intervention. He is on aspirin, beta johnnie and a statin. 9. Gastroesophageal reflux disease. He is on omeprazole. 10. Deep vein thrombosis (DVT) prophylaxis. He is therapeutic with Coumadin. DISPOSITION: The patient will likely be here for a week and a half until his colonoscopy is completed, can be bridged from a heparin drip back to Coumadin therapeutic. MTDD
[2016-11-19 12:51] VITALS: BP 143/65
[2016-11-19 18:00] VITALS: BP 118/60
--- NOTE | 2016-11-19 19:24 | IPN ---
DATE: 11/19/3016 Mr. Roy is seen this morning on his bedside. He is sitting in the chair at the time of my visit. He is feeling well and denies any complaints at this time. There is no dyspnea, chest pain, nausea or vomiting. On physical examination, temperature 97.7 degrees Fahrenheit, heart rate 70 per minute and respiratory rate 18 per minute. Blood pressure 143/65 mmHg and oxygen saturation 97% on room air. He weighed 126 kg today. Intake and output records from yesterday showed total intake 2100 and output 600 mL. Head is atraumatic. Neck is supple and without any significant jugular venous distention (JVD). There is no thyroid enlargement and trachea is midline. Ears, nose and throat are unremarkable. Heart exam reveals irregular rhythm with prosthetic valve sounds. There is no gallop. Lungs sound clear to auscultation bilaterally. Abdomen is soft, obese and nontender. Bowel sounds are normal and there is no palpable organomegaly. Extremities have no cyanosis or clubbing. Lower extremity edema is about 1+ around the ankles. Skin has no rash or ulcers. Neurologically, he is awake, alert and oriented times three. Today's labs show WBC count 6.9, hemoglobin 8.8 and hematocrit 26.5. Platelets 232. Sodium 141 and potassium 3.7. BUN 75 and creatinine 1.52. PROBLEMS: 1. Acute renal failure superimposed on chronic kidney disease. Acute renal failure was most likely caused by dehydration and has improved significantly since his diuretics were put on hold since admission. He remains off diuretics and will monitor for next 24 hours. At this point, his volume status remains well compensated. He is not receiving any more IV fluid. 2. Congestive heart failure. Volume status seems clinically well compensated. Diuretics will remain on hold. 3. Anemia. The patient does have worsening anemia with hemodilution. He also has mild iron deficiency. He is in need for colonoscopy and I agree for it. In view of his chronic anticoagulation, he will be bridged with heparin due to his prosthetic aortic valve and atrial fibrillation. We will continue to monitor his renal function and electrolytes.
[2016-11-19] MEDS: ATORVASTATIN 20 MG TAB PO SCH (21:15)
[2016-11-19 22:00] VITALS: BP 130/62
[2016-11-20 02:00] VITALS: BP 110/53
[2016-11-20 05:46] LABS: INR 3.08
[2016-11-20 05:50] LABS: CALCIUM LEVEL 8.8 MG/DL (8.8-10.2); CREATININE FOR GFR 1.46 MG/DL (0.70-1.30); GLOMERULAR FILTRATION RATE 50.1 (>42)
[2016-11-20 06:00] VITALS: BP 145/65
[2016-11-20 06:01] LABS: MEAN CORPUSCULAR HEMOGLOBIN 32.8 pg (27.0-33.0); MEAN CORPUSCULAR HGB CONC 32.9 g/dl (32.0-36.5); RED CELL DISTRIBUTION WIDTH 13.6 % (11.5-14.5); WHITE BLOOD COUNT 8.2 K/mm3 (4.0-10.0)
[2016-11-20] MEDS: TIOTROPIUM INHALER/CAPSULE (SPIRIVA) INH SCH (07:07)
[2016-11-20] MEDS: ADVAIR HFA 115/21MCG INHALER INH SCH ×2 (07:07→19:46)
[2016-11-20] MEDS ORDERED: FUROSEMIDE 40 MG TAB PO ONE (09:30)
[2016-11-20] MEDS: MIRALAX *UNIT DOSE* 17GM PACKET PO SCH (09:42)
[2016-11-20] MEDS: FERROUS SULFATE 325MG TAB PO SCH ×2 (09:43→20:21)
[2016-11-20] MEDS: OMEPRAZOLE 20 MG CAP PO SCH (09:43)
[2016-11-20] MEDS: ASPIRIN 81 MG ENTERIC TAB PO SCH (09:43)
[2016-11-20] MEDS: ASCORBIC ACID 500 MG TAB PO SCH (09:43)
[2016-11-20] MEDS: BISOPROLOL FUMARATE 5 MG TAB PO SCH (09:43)
[2016-11-20] MEDS: MULTIVITAMINS/MINERALS THERAP 1 TAB PO SCH (09:43)
[2016-11-20 10:00] VITALS: BP 131/93
[2016-11-20 14:00] VITALS: BP 147/66
--- NOTE | 2016-11-20 17:16 | IPN ---
DATE: 11/20/2016 SUBJECTIVE: The patient feels well. He has no complaints. He remains asymptomatic. He denies lightheadedness, dizziness, shortness of breath, or dyspnea on exertion. OBJECTIVE: VITAL SIGNS: Temperature 96.8, pulse 71, respiratory rate 16, blood pressure 145/65, oxygen saturation 95% on room air. GENERAL: He is a pleasant, elderly, obese, man sitting in a recliner. He does not appear to be in any acute distress whatsoever. HEENT: Cranial nerves II-XII are grossly intact. He has moist mucous membranes. No elevation in his central venous pressure (CVP). CARDIOVASCULAR EXAM: S1, S2, regular, he has a mechanical S2. RESPIRATORY EXAM: Clear. ABDOMINAL EXAM: Obese. Bowel sounds are present. Abdomen is soft. EXTREMITIES: No clubbing or cyanosis. There is 1+ edema bilaterally. LABORATORY STUDIES: WBC 8.2, hemoglobin 8.1, hematocrit 24.9, platelet count 218. Chemistry panel: Sodium 143, potassium 4.0, chloride 104, bicarbonate 31, BUN 65, creatinine 1.4. INR today is 3.0. No new imaging. ASSESSMENT AND PLAN: This is a 76-year-old man with acute on chronic kidney disease. 1. Acute on chronic kidney disease. Dr. John's help is appreciated. His diuretic has been restarted today. His presentation was most consistent with a prerenal azotemia secondary to overdiuresis. His electrolytes are being optimized. 2. Chronic anemia. The patient had been undergoing outpatient preparation for colonoscopy. As per Dr. Barriga and Dr. Giles, related to his mechanical aortic valve, he is not a candidate to be bridged with Lovenox. At this time, we are holding his Coumadin. Normally, his goal is to be therapeutic at 2.5 to 3.5. Once his INR has drifted down to less than 2.5, he should be started on a heparin drip. Once his INR is less than 1.5 or approaching 1.5, we should notify Dr. Giles and arrange for bowel preparation for colonoscopy the following day. When his INR is below 1.5, probably following this he should be resumed on a heparin drip and Coumadin and bridge him back to a therapeutic INR. The patient is on iron supplementation and will receive Aranesp via Dr. John. 3. Diastolic congestive heart failure. Appears fairly compensated. He does have bilateral peripheral edema, may be related to chronic venous stasis. 4. Atrial fibrillation. He is anticoagulated with Coumadin. He is rate controlled with bisoprolol. 5. Hypertension. His antihypertensives were held at the time of admission. Should he become hypertensive, could consider resuming these as he is no longer hypotensive. 6. Obstructive sleep apnea. He is noncompliant with continuous positive airway pressure (CPAP). He is scheduled to undergo a repeat outpatient sleep study in the near future. 7. Aortic stenosis status post mechanical aortic valve. Anticoagulation as outlined above. 8. Coronary artery disease. He is on an aspirin, statin, and a beta johnnie. 9. Gastroesophageal reflux disease. He is on omeprazole. 10. Deep venous thrombosis (DVT) prophylaxis. He is on Coumadin as outlined above.
--- NOTE | 2016-11-20 17:52 | IPN ---
DATE: 11/20/2016 Mr. Roy is seen this morning on his bedside. He is sitting in the chair and feels well. He denies any dyspnea, chest pain, nausea or vomiting. He has been ambulating and denies any dizziness. PHYSICAL EXAMINATION: Temperature 96.8 degrees Fahrenheit, heart rate 70 per minute and respiratory rate 16 per minute. Blood pressure 145/65 mmHg and oxygen saturation 95% on room air. His head is atraumatic. Neck is supple and without thyroid enlargement. His neck veins are mildly distended. There is no oral thrush or ulcers and pupils are equal and reactive to light. His heart sounds are irregular in rhythm with prosthetic valve sounds. Lungs have slightly diminished breath sounds at bases. Abdomen obese, soft and nontender. Extremities have no cyanosis or clubbing. He does have at least 1+ leg edema. Neurologically he is awake, alert and oriented times three. Today's labs showed WBC count 8.2, hemoglobin 7.7 and hematocrit 23.5. INR is 3.08. Sodium 143 and potassium 4.0. BUN 65 and creatinine 1.46. PROBLEMS: 1. Acute renal failure superimposed on chronic kidney disease. Significant improvement in kidney function is noted. He does have at least stage III of chronic kidney disease at baseline. He was over diuresed and has been off diuretics. 2. Congestive heart failure. The patient has diastolic congestive heart failure and has been off diuretics since admission. Now he has started to develop increasing leg edema once again. I am going to resume Lasix 40 mg once a day by mouth and will monitor closely. 3. Anemia. Most likely he has GI blood loss. He is going to have a colonoscopy done over the next few days. He will require bridge therapy for anticoagulation. He continues with iron supplement twice a day and a dose of Aranesp 200 mcg will be given.
[2016-11-20 18:00] VITALS: BP 148/64
[2016-11-20] MEDS: ATORVASTATIN 20 MG TAB PO SCH (20:21)
[2016-11-20 22:00] VITALS: BP 133/64
[2016-11-21 02:00] VITALS: BP 114/52
[2016-11-21 05:40] LABS: MEAN CORPUSCULAR HEMOGLOBIN 33.6 pg (27.0-33.0); MEAN CORPUSCULAR HGB CONC 33.4 g/dl (32.0-36.5); MEAN CORPUSCULAR VOLUME 100.5 fl (80.0-96.0); WHITE BLOOD COUNT 10.1 K/mm3 (4.0-10.0)
[2016-11-21 05:57] LABS: INR 2.21
[2016-11-21 06:00] VITALS: BP 137/68
[2016-11-21 06:10] LABS: CALCIUM LEVEL 9.1 MG/DL (8.8-10.2); CREATININE FOR GFR 1.46 MG/DL (0.70-1.30); GLOMERULAR FILTRATION RATE 50.1 (>42); POTASSIUM SERUM 3.3 MEQ/L (3.5-5.1)
[2016-11-21] MEDS ORDERED: POTASSIUM CHLORIDE 10 MEQ SR TABLET PO ONE (07:15)
[2016-11-21] MEDS: TIOTROPIUM INHALER/CAPSULE (SPIRIVA) INH SCH (08:23)
[2016-11-21] MEDS: ADVAIR HFA 115/21MCG INHALER INH SCH ×2 (08:23→19:45)
[2016-11-21] MEDS: ASCORBIC ACID 500 MG TAB PO SCH (08:34)
[2016-11-21] MEDS: ASPIRIN 81 MG ENTERIC TAB PO SCH (08:35)
[2016-11-21] MEDS: FERROUS SULFATE 325MG TAB PO SCH ×2 (08:35→21:07)
[2016-11-21] MEDS: MIRALAX *UNIT DOSE* 17GM PACKET PO SCH (08:35)
[2016-11-21] MEDS: MULTIVITAMINS/MINERALS THERAP 1 TAB PO SCH (08:35)
[2016-11-21] MEDS: FUROSEMIDE 40 MG TAB PO SCH (08:35)
[2016-11-21] MEDS: OMEPRAZOLE 20 MG CAP PO SCH (08:35)
[2016-11-21] MEDS: BISOPROLOL FUMARATE 5 MG TAB PO SCH (08:37)
[2016-11-21] MEDS ORDERED: DARBEPOETIN 300 MCG/0.6 ML *NON-DIALYSIS* SYRINGE (J0881) SC SCH ×2 (09:00→11:25)
[2016-11-21] MEDS ORDERED: DARBEPOETIN 100 MCG/0.5 ML *NON-DIALYSIS* SYRINGE (J0881) SC SCH (09:00)
[2016-11-21] MEDS ORDERED: HEPARIN SOD (PORCINE) 5000 UNITS/ML VIAL IV PRN (09:15)
[2016-11-21 10:00] VITALS: BP 120/80
[2016-11-21] MEDS: HEPARIN DRIP 25,000 UNITS in APPROPRIATE DILUENT 1 EA IV SCH (13:25)
[2016-11-21 14:00] VITALS: BP 120/58
--- NOTE | 2016-11-21 19:40 | IPN ---
DATE: 11/21/2016 Patient seen and examined. No acute events overnight. Denies any chest pain, pressure, or discomfort. Denies any shortness of breath, lightheadedness. Currently asymptomatic. VITAL SIGNS: Temperature 98.8, pulse 65, respirations 18, blood pressure 120/58, pulse oximetry 98% on room air. LABORATORY DATA: WBC 10.1, hemoglobin and hematocrit 8/24, platelets 231. Chemistry: Sodium 142, potassium 3.2, chloride 101, bicarbonate 32, BUN 54, creatinine 1.46. PHYSICAL EXAMINATION: GENERAL: Patient pleasant, obese, in no acute distress. HEENT: Normocephalic, atraumatic. Moist mucous membranes. Cranial nerves II-XII grossly intact. CARDIAC: Regular rate and rhythm. Normal S1, S2. ABDOMEN: Soft, nontender, obese. Positive bowel sounds. EXTREMITIES: Trace edema, bilateral lower extremities. ASSESSMENT AND PLAN: This is a 76-year-old male patient with underlying medical history of diastolic heart failure, hypertension, aortic stenosis with mechanical aortic valve replacement, atrial fibrillation, on Coumadin, chronic interstitial fibrosis, hypertension, obstructive sleep apnea, not on CPAP, presented with: 1. Acute on chronic kidney disease secondary to over-diuresis. Nephrology consulted. Laboratory consistent with prerenal azotemia from over-diuresis. Currently diuretics on hold. Will restart on Lasix 40 mg by mouth daily by nephrology. 2. Chronic anemia, getting preparation for colonoscopy, as per Dr. Barriga and Dr. Giles. Due to mechanical aortic valve, patient needs to be bridged on heparin drip. Not a candidate for bridging with Lovenox. Holding Coumadin. Patient started on heparin drip given INR is less than 2.5. Once INR is about 1.5, we will prep the patient for colonoscopy. Aranesp has been ordered by Dr. John. Followup hemoglobin and hematocrit. Transfuse as needed. 3. Chronic diastolic congestive heart failure. Continue Lasix. Strict intake and output, daily weight. 4. Edema possibly secondary to chronic venous stasis. 5. Atrial fibrillation. Patient on Coumadin. Coumadin has been on hold. Heparin drip. Continue bisoprolol. 6. Hypertension. Patient restarted on Lasix by nephrology. Continue on Zebeta. 7. Chronic obstructive pulmonary disease (COPD). Continue Advair and Spiriva nebulizer treatment. 8. Obstructive sleep apnea, noncompliant with CPAP. Repeat sleep study as outpatient. 9. Aortic stenosis with mechanical valve, on anticoagulation as outlined above. Heparin drip. Followup PT/PTT. 10. Coronary artery disease. Aspirin, statin, beta johnnie. 11. Gastroesophageal reflux disease (GERD). Continue proton pump inhibitor (PPI). 12. Deep vein thrombosis (DVT) prophylaxis. Patient on heparin drip at this point in time. DISPOSITION: Pending colonoscopy.
[2016-11-21] MEDS: POTASSIUM CHLORIDE 10 MEQ SR TABLET PO SCH (21:07)
[2016-11-21] MEDS: ATORVASTATIN 20 MG TAB PO SCH (21:07)
--- NOTE | 2016-11-21 21:54 | IPN ---
DATE: 11/21/2016 Mr. Roy is seen this morning on his bedside. He is sitting in the chair and denies any complaints. Yesterday Lasix was started due to increasing leg edema. The patient denies any dyspnea or chest pain. He has no nausea or vomiting. He is waiting for his coagulopathy to improve for possible colonoscopy during this hospitalization. PHYSICAL EXAMINATION: Temperature 97.7 degrees Fahrenheit, heart rate 72 per minute and respiratory rate 20 per minute. Blood pressure 137/68 mmHg and oxygen saturation 97% on room air. Intake and output records from yesterday showed total intake 1200 and output 2700. His weight is essentially unchanged. Head is atraumatic. Neck is supple and jugular venous distension (JVD) is not visible sitting upright. Lungs: Have slightly diminished breath sounds at bases. Heart: Sounds are irregular and prosthetic valve click is audible. Abdomen: Soft and nontender and without any palpable organomegaly. Bowel sounds are normal. Extremities: Have 2+ edema now extending up to mid calf area. There is no cyanosis or clubbing. Neurologically he is awake, alert and oriented times three. Skin is without any rash or ulcers. Today's labs show WBC count 10.1, hemoglobin 8.0 and hematocrit 24.0. Platelets 231. His INR is 2.21. Sodium 142 and potassium 3.3. BUN 54 and creatinine 1.46. PROBLEMS: 1. Acute renal failure superimposed on chronic kidney disease. His acute renal failure seems to have completely resolved. Serum creatinine has leveled off and this is probably close to his baseline kidney function. 2. Acute on chronic diastolic congestive heart failure. His diuretics have been on hold due to over diuresis and acute renal failure. Will resume Lasix 40 mg daily yesterday as he has developed increasing leg edema once again. He responded very well and will continue with the same. 3. Hypokalemia. This is related to diuretic use. The patient has been given 40 mg potassium chloride this morning and will continue with 20 mEq twice a day. Electrolytes will be checked again tomorrow morning. 4. Anemia with possible blood loss. No significant change for the last 2 days. The patient has been on chronic anticoagulation and possibly has low grade gastrointestinal (GI) bleed. He is going to have a colonoscopy and is waiting for bridge therapy. He has already been started on oral iron supplement. He was given Aranesp 200 mcg this morning.
[2016-11-21 22:00] VITALS: BP 124/61
[2016-11-22 02:00] VITALS: BP 152/70
[2016-11-22 06:00] VITALS: BP 118/57
[2016-11-22 08:03] LABS: MEAN CORPUSCULAR HEMOGLOBIN 33.3 pg (27.0-33.0); MEAN CORPUSCULAR VOLUME 100.9 fl (80.0-96.0); RED CELL DISTRIBUTION WIDTH 14.4 % (11.5-14.5)
[2016-11-22] MEDS: ADVAIR HFA 115/21MCG INHALER INH SCH ×2 (08:11→20:09)
[2016-11-22] MEDS: TIOTROPIUM INHALER/CAPSULE (SPIRIVA) INH SCH (08:11)
[2016-11-22] MEDS: MULTIVITAMINS/MINERALS THERAP 1 TAB PO SCH (08:17)
[2016-11-22] MEDS: OMEPRAZOLE 20 MG CAP PO SCH (08:17)
[2016-11-22 08:18] LABS: INR 1.67
[2016-11-22] MEDS: FUROSEMIDE 40 MG TAB PO SCH (08:18)
[2016-11-22] MEDS: ASCORBIC ACID 500 MG TAB PO SCH (08:18)
[2016-11-22] MEDS: MIRALAX *UNIT DOSE* 17GM PACKET PO SCH (08:18)
[2016-11-22] MEDS: FERROUS SULFATE 325MG TAB PO SCH ×2 (08:18→20:15)
[2016-11-22] MEDS: POTASSIUM CHLORIDE 10 MEQ SR TABLET PO SCH ×2 (08:18→20:15)
[2016-11-22] MEDS: ASPIRIN 81 MG ENTERIC TAB PO SCH (08:18)
[2016-11-22] MEDS: BISOPROLOL FUMARATE 5 MG TAB PO SCH (08:19)
[2016-11-22 09:20] LABS: CALCIUM LEVEL 8.8 MG/DL (8.8-10.2); CREATININE FOR GFR 1.54 MG/DL (0.70-1.30); GLOMERULAR FILTRATION RATE 47.1 (>42); POTASSIUM SERUM 3.6 MEQ/L (3.5-5.1)
[2016-11-22 10:00] VITALS: BP 129/62
[2016-11-22] MEDS: HEPARIN DRIP 25,000 UNITS in APPROPRIATE DILUENT 1 EA IV SCH (10:11)
[2016-11-22] MEDS ORDERED: MOM 30ML SUSPENSION UDC PO ONE (10:15)
[2016-11-22] MEDS ORDERED: SPIRONOLACTONE 25 MG TAB PO ONE (10:45)
[2016-11-22 14:00] VITALS: BP_SYST 126; BP_SYST 133; BP_DIAS 63; BP_DIAS 64
[2016-11-22] MEDS ORDERED: GOLYTELY SOLN 4000 ML BTL PO ONE (17:30)
[2016-11-22] MEDS: ATORVASTATIN 20 MG TAB PO SCH (20:14)
--- NOTE | 2016-11-22 21:14 | IPN ---
DATE: 11/22/2016 Patient seen and examined. No acute events overnight. Denies any fevers, chills, chest pain, pressure, or discomfort. Denies any melena. Denies any shortness of breath, nausea or vomiting. Tolerating oral. VITAL SIGNS: Temperature 98.1, pulse 65, respirations 16, blood pressure 133/63, pulse oximetry 96% on room air. LABORATORY DATA: WBC 9, hemoglobin and hematocrit 7.9/24, platelets 2381. Chemistry: Sodium 140, potassium 3.8, chloride 100, bicarbonate 30, BUN 47, creatinine 1.45. PHYSICAL EXAMINATION: GENERAL: Pleasant, obese, in no acute distress. HEENT: Normocephalic, atraumatic. Moist mucous membranes. Cranial nerves II-XII grossly intact. CARDIAC: Regular, S1, S2. Systolic murmur detected. ABDOMEN: Soft, nontender, obese. Positive bowel sounds. EXTREMITIES: Trace edema bilateral lower extremities. ASSESSMENT AND PLAN: This is a 76-year-old male patient with underlying medical history of diastolic heart failure, hypertension, aortic stenosis with mechanical valve replacement, atrial fibrillation on Coumadin, chronic interstitial fibrosis, hypertension, obstructive sleep apnea not on CPAP, presented with acute on chronic kidney disease due to over-diuresis. PROBLEMS: 1. Acute on chronic kidney disease due to over diureses. Nephrology has been consulted. Laboratory consistent with prerenal azotemia from over diuresis. Diuretics initially on hold currently. Restart Lasix and spironolactone by nephrology. Follow up kidney function. 2. Chronic anemia. Patient is getting preparation for colonoscopy, but according to Dr. Barriga and Dr. Giles, patient due to mechanical aortic valve needs to be bridged on heparin drip. Not a candidate for bridging with Lovenox. Holding Coumadin. Patient INR is 1.6. Will be ready for colonoscopy tomorrow. Will start heparin drip three hours prior to procedure. Aranesp has been ordered by Dr. John. Transfuse 1 unit packed red blood cells. Followup hemoglobin and hematocrit. 3. Chronic diastolic congestive heart failure. Lasix and spironolactone has been restarted by Dr. John. Strict intake and output, follow up renal function, daily weight. 4. Lower extremity edema with chronic venous stasis also. Supportive care, leg elevation. 5. Atrial fibrillation. Patient on Coumadin which has been on hold. Continue Heparin drip. Continue bisoprolol. 6. Hypertension. Patient on Lasix and spironolactone and bisoprolol. Monitor blood pressure. 7. Chronic obstructive pulmonary disease (COPD). Patient on Advair and Spiriva. Continue to monitor. Nebulizer treatment. 8. Obstructive sleep apnea, noncompliant with CPAP. Repeat sleep study as outpatient. Obstructive sleep apnea protocol. 9. Aortic stenosis with mechanical valve, on anticoagulation, outlined as above. Heparin drip. Followup PT/PTT. Restart Coumadin right after the procedure. 10. Coronary artery disease. Aspirin, statin, beta johnnie. 11. Gastroesophageal reflux disease (GERD). Continue proton pump inhibitor (PPI). 12. Deep vein thrombosis (DVT) prophylaxis. Patient on heparin drip. [place] heparin drip three hours prior to procedure. DISPOSITION: Pending colonoscopy and therapeutic INR.
[2016-11-22 22:00] VITALS: BP_SYST 144; BP_SYST 155; BP_DIAS 65; BP_DIAS 68
[2016-11-23] VITALS (7 sets, daily range): BP systolic 119–143; BP diastolic 58–75
[2016-11-23] MEDS ORDERED: GOLYTELY SOLN 4000 ML BTL PO ONE (05:30)
[2016-11-23] MEDS ORDERED: AMPICILLIN SOD 2 GM in D5W MINI-BAG PLUS 100 ML IV SCH (06:00)
[2016-11-23] MEDS ORDERED: GENTAMICIN 120 MG in D5W 50 ML IV SCH (06:00)
--- NOTE | 2016-11-23 06:39 | IPN ---
DATE: 11/22/2016 SUBJECTIVE: Mr. Roy is seen this morning on his bedside. He is sitting in the chair. He has been started on intravenous (IV) heparin drip and Coumadin has been stopped. There is a plan for colonoscopy due to ongoing gastrointestinal (GI) bleed. The patient denies any dyspnea or chest pain. He has no nausea, vomiting, fever or chills. PHYSICAL EXAMINATION: Temperature 98.3 degrees Fahrenheit, heart rate 72 per minute and respiratory rate 18 per minute. Blood pressure 126/64 mmHg and oxygen saturation 95% on room air. Head is atraumatic. Neck is supple and without any jugular venous distention (JVD) sitting upright or thyroid enlargement. Ears, nose and throat are unremarkable. Heart exam reveals irregular rhythm with prosthetic valve sounds. Lung sounds clear to auscultation bilaterally. Abdomen soft and nontender and without a palpable organomegaly. Bowel sounds are normal. Extremities have no cyanosis or clubbing. He has at least 1+ leg edema reaching up to midcalf area. LABORATORY DATA: Today's labs show WBC count 9.0, hemoglobin 7.9 and hematocrit 24.0. Platelets 238. His chemistry today showed a sodium level 140 and potassium 3.6. BUN 47 and creatinine 1.54. PROBLEMS: 1. Diastolic congestive heart failure. He is slightly decompensated. He has been started on Lasix 40 mg daily and I am going to add spironolactone 25 mg daily in view of hypokalemia. 2. Hypokalemia related to diuretic use. The patient is already on potassium chloride 20 mEq twice a day with improved potassium level. We are also adding spironolactone 25 mg daily. 3. Acute and chronic kidney disease. This is most likely his baseline kidney function with creatinine between 1.4-1.5 mg/dL. Electrolytes are stable and we will continue to monitor his kidney function while he is being prepped for colonoscopy. 4. Anemia and anticoagulation. The patient has been on chronic anticoagulation due to atrial fibrillation and prosthetic aortic valve. He is going to be transfused one unit of packed red blood cells (RBCs) today. He was given Aranesp 200 mcg yesterday.
[2016-11-23 06:44] LABS: INR 1.37
[2016-11-23 06:51] LABS: MEAN CORPUSCULAR HEMOGLOBIN 32.6 pg (27.0-33.0); RED CELL DISTRIBUTION WIDTH 14.6 % (11.5-14.5); WHITE BLOOD COUNT 8.3 K/mm3 (4.0-10.0)
[2016-11-23 07:12] LABS: CALCIUM LEVEL 8.6 MG/DL (8.8-10.2); CREATININE FOR GFR 1.51 MG/DL (0.70-1.30); GLOMERULAR FILTRATION RATE 48.2 (>42); POTASSIUM SERUM 3.2 MEQ/L (3.5-5.1)
[2016-11-23] MEDS ORDERED: POTASSIUM CHLORIDE 10 MEQ SR TABLET PO ONE (08:00)
[2016-11-23] MEDS: ADVAIR HFA 115/21MCG INHALER INH SCH ×2 (08:31→19:50)
[2016-11-23] MEDS: TIOTROPIUM INHALER/CAPSULE (SPIRIVA) INH SCH (08:31)
[2016-11-23 08:50] LABS: MAGNESIUM LEVEL 2.6 MG/DL (1.8-2.4)
[2016-11-23] MEDS: ASCORBIC ACID 500 MG TAB PO SCH (08:57)
[2016-11-23] MEDS: ASPIRIN 81 MG ENTERIC TAB PO SCH (08:57)
[2016-11-23] MEDS: OMEPRAZOLE 20 MG CAP PO SCH (08:57)
[2016-11-23] MEDS: POTASSIUM CHLORIDE 10 MEQ SR TABLET PO SCH ×2 (08:57→20:27)
[2016-11-23] MEDS: MULTIVITAMINS/MINERALS THERAP 1 TAB PO SCH (08:57)
[2016-11-23] MEDS: FERROUS SULFATE 325MG TAB PO SCH ×2 (08:58→20:27)
[2016-11-23] MEDS: SPIRONOLACTONE 25 MG TAB PO SCH (08:58)
[2016-11-23] MEDS: FUROSEMIDE 40 MG TAB PO SCH (08:58)
[2016-11-23] MEDS: BISOPROLOL FUMARATE 5 MG TAB PO SCH (08:58)
[2016-11-23] MEDS: MIRALAX *UNIT DOSE* 17GM PACKET PO SCH (08:59)
[2016-11-23] MEDS ORDERED: LIDOCAINE 2% INJ 100 MG/5 ML SDV (FOR ANES.) As Ordered ONE (09:59)
[2016-11-23] MEDS ORDERED: PROPOFOL 200 MG/20 ML VIAL As Ordered ONE ×4 (09:59→11:41)
[2016-11-23] MEDS ORDERED: PHENYLephrine HCL 500 MCG/5 ML (100MCG/ML) SYRINGE (J2370) As Ordered ONE (10:44)
[2016-11-23] MEDS ORDERED: UNASYN 1.5 GM VIAL As Ordered ONE (11:11)
[2016-11-23] MEDS ORDERED: GENTAMICIN SULF INJ 80MG/2ML VIAL (J1580) As Ordered ONE ×2 (11:12→11:14)
[2016-11-23] MEDS ORDERED: ePHEDrine SULFATE 25 MG/5 ML(5MG/ML) SYRINGE As Ordered ONE (11:16)
[2016-11-23] MEDS ORDERED: ONDANSETRON 4MG/2ML VIAL (J2405) As Ordered ONE (11:28)
--- NOTE | 2016-11-23 11:58 | ROOR ---
Patient Name: Ronal Roy Procedure Date: 11/23/2016 9:35 AM Date of : 1940 Age: 76 Gender: Male Note Status: Finalized Procedure: Upper GI endoscopy Indications: Unexplained iron deficiency anemia Providers: Dick HERBERT MD Referring MD: 2. Inpatient 2. Inpatient, ASHLEIGH POLO MD Requesting Provider: Medicines: Monitored Anesthesia Care Complications: No immediate complications. Procedure: Pre-Anesthesia Assessment: - The heart rate, respiratory rate, oxygen saturations, blood pressure, adequacy of pulmonary ventilation, and response to care were monitored throughout the procedure. The Endoscope was introduced through the mouth, and advanced to the second part of duodenum. The upper GI endoscopy was accomplished without difficulty. The patient tolerated the procedure well. Findings: Small Hiatal Hernia. The esophagus was normal. The stomach was normal. The examined duodenum was normal. Biopsies for histology were taken with a cold forceps for evaluation of celiac disease. Impression: - Small Hiatal Hernia. - Normal esophagus. - Normal stomach. - Normal examined duodenum. Biopsied. Recommendation: - Perform a colonoscopy. Dick Herbert MD Dick HERBERT MD 11/23/2016 11:58:30 AM This report has been signed electronically. Number of Addenda: 0 Note Initiated On: 11/23/2016 9:35 AM Estimated Blood Loss: Estimated blood loss: none. Estimated blood loss: none.
--- NOTE | 2016-11-23 12:06 | ROOR ---
Patient Name: Ronal Roy Procedure Date: 11/23/2016 9:36 AM Date of : 1940 Age: 76 Room: Main OR Gender: Male Note Status: Finalized Procedure: Colonoscopy Indications: High risk colon cancer surveillance: Personal history of colonic polyps Providers: Dick HERBERT MD Referring MD: 2. Inpatient 2. Inpatient, ASHLEIGH POLO MD Requesting Provider: Medicines: Monitored Anesthesia Care Complications: No immediate complications. Procedure: Pre-Anesthesia Assessment: - The heart rate, respiratory rate, oxygen saturations, blood pressure, adequacy of pulmonary ventilation, and response to care were monitored throughout the procedure. The Colonoscope was introduced through the anus and advanced to the cecum, identified by appendiceal orifice and ileocecal valve. The colonoscopy was performed without difficulty. The patient tolerated the procedure well. The quality of the bowel preparation was good. Findings: The perianal and digital rectal examinations were normal. A 5 mm polyp was found in the cecum. The polyp was sessile. The polyp was removed with a cold snare. Resection and retrieval were complete. Four sessile polyps were found in the proximal transverse colon and hepatic flexure. The polyps were 5 to 8 mm in size. These polyps were removed with a cold snare. Resection and retrieval were complete. To prevent bleeding after the polypectomy, three hemostatic clips were successfully placed. Two sessile polyps were found in the splenic flexure. The polyps were 5 to 6 mm in size. These polyps were removed with a cold snare. Resection and retrieval were complete. To prevent bleeding after the polypectomy, one hemostatic clip was successfully placed. There was no bleeding at the end of the procedure. Two sessile polyps were found in the sigmoid colon. The polyps were 5 to 6 mm in size. These polyps were removed with a cold snare. Resection and retrieval were complete. To prevent bleeding after the polypectomy, one hemostatic clip was successfully placed. Impression: - One 5 mm polyp in the cecum, removed with a cold snare. Resected and retrieved. - Four 5 to 8 mm polyps in the proximal transverse colon and at the hepatic flexure, removed with a cold snare. Resected and retrieved. 3 Clips were placed. - Two 5 to 6 mm polyps at the splenic flexure, removed with a cold snare. Resected and retrieved. 1 Clip was placed. - Two 5 to 6 mm polyps in the sigmoid colon, removed with a cold snare. Resected and retrieved. 1 Clip was placed. - Mild sigmoid diverticulosis. - The Colonoscopy was otherwise normal. Recommendation: - Await pathology results. - Telephone endoscopist for pathology results in 2 weeks. - Resume regular diet. - Resume heparin at prior dose today. Dick Herbert MD Dick HERBERT MD 11/23/2016 12:06:31 PM This report has been signed electronically. Number of Addenda: 0 Note Initiated On: 11/23/2016 9:36 AM Estimated Blood Loss: Estimated blood loss: none.
[2016-11-23] MEDS: HEPARIN DRIP 25,000 UNITS in APPROPRIATE DILUENT 1 EA IV SCH (13:13)
[2016-11-23] MEDS: ATORVASTATIN 20 MG TAB PO SCH (20:27)
[2016-11-23] MEDS: WARFARIN SOD 7.5 MG TAB PO SCH (20:27)
--- NOTE | 2016-11-23 22:17 | IPN ---
DATE: 11/23/2016 The patient seen and examined. The patient had pulled out his IV without realizing it with earlier, but has gotten better this morning. Currently alert and oriented times three. Underwent esophagogastroduodenoscopy (EGD) colonoscopy with polyps removed, but no bleeding source. Has received 1 unit of packed red blood cells (PRBC) today for a total of 2 units during this hospital stay. Denies any chest pain, pressure, discomfort, shortness of breath. VITAL SIGNS: Temperature 97.9, pulse 65, respirations 18, blood pressure 123/58, pulse oximetry 95% on room air. LABORATORY: White blood count (WBC) 8.3, hemoglobin and hematocrit 7.4/22.5. The patient lost significant blood from pulling on the IV without noticed. Platelets 240. Chemistry: Sodium 141, potassium 3.2, chloride 100, bicarbonate 35, BUN 36, creatine 1.5, magnesium 2.6, PHYSICAL EXAMINATION: GENERAL: The patient is comfort, in no acute distress. Alert and oriented times three. HEENT: Normocephalic, atraumatic. CARDIAC: Regular rate and rhythm. Soft systolic murmur detected, 05/29. ABDOMEN: Soft, nontender. PULMONARY: Bilaterally clear to auscultation. EXTREMITIES: Trace edema in bilateral lower extremities. ASSESSMENT AND PLAN: This is a 76-year-old male patient with underlying medical history of diastolic heart failure, hypertension, aortic stenosis with mechanical valve, atrial fibrillation on Coumadin, chronic interstitial fibrosis, hypertension, obstructive sleep apnea, not on CPAP, presented with acute on chronic renal failure due to over diuresis. PROBLEM: 1. Acute on chronic kidney disease due to over diuresis. Nephrology has been consulted. Laboratory consistent with prerenal azotemia, diuretic initially has been on hold, currently retarded Lasix and spironolactone by nephrology. Followup kidney function. 2. Chronic anemia. The patient is getting preparation for colonoscopy, status post colonoscopy and esophagogastroduodenoscopy (EGD) with polyps removed. No other bleeding source. As per Dr. Barriga, the patient will need to be bridged with heparin drip, not a candidate for Lovenox. The patient is currently on heparin drip. Coumadin has been restarted. Transfused a total of 2 units packed red blood cells during this hospital stay. The patient did lose significant blood from pulling out the IV from heparin drip. 3. Chronic diastolic congestive heart failure. The patient is on Lasix and spironolactone, restarted by Dr. John. Strict input and output, daily weight, followup kidney function. 4. Lower extremity edema with chronic venous stasis. Supportive care. Management as above, leg elevation. 5. Atrial fibrillation. The patient is on Coumadin. Heparin drip bridged to Coumadin. Continue bisoprolol. 6. Hypertension. Continue Lasix, spironolactone and bisoprolol. Monitor blood pressure. 7. Chronic obstructive pulmonary disease (COPD). Continue Advair and Spiriva nebulizer treatment. 8. Obstructive sleep apnea. Noncompliant with CPAP. Repeat sleep study needed as outpatient or as a protocol. 9. Aortic stenosis with mechanical valve on anticoagulation. Heparin drip bridged to Coumadin as this time. Followup PT/INR. Coumadin restarted. 10. Coronary artery disease. Aspirin, statin and beta johnnie. 11. Gastroesophageal reflux disease (GERD). Continue proton pump inhibitor (PPI). 12. Deep vein thrombosis (DVT) prophylaxis. Heparin drip bridged to Coumadin. DISPOSITION: Pending therapeutic INR.
[2016-11-24 02:00] VITALS: BP 133/64
[2016-11-24 06:00] VITALS: BP 157/73
[2016-11-24] MEDS ORDERED: HEPARIN 25,000 UNITS/250 ML D5W BAG (100 UNITS/ML) As Ordered ONE (06:09)
[2016-11-24] MEDS: HEPARIN DRIP 25,000 UNITS in APPROPRIATE DILUENT 1 EA IV SCH (06:18)
[2016-11-24 06:19] LABS: MEAN CORPUSCULAR HEMOGLOBIN 32.7 pg (27.0-33.0); MEAN CORPUSCULAR HGB CONC 33.5 g/dl (32.0-36.5); MEAN CORPUSCULAR VOLUME 97.6 fl (80.0-96.0); RED CELL DISTRIBUTION WIDTH 15.7 % (11.5-14.5); WHITE BLOOD COUNT 8.7 K/mm3 (4.0-10.0)
[2016-11-24 06:31] LABS: INR 1.27
[2016-11-24 06:38] LABS: CALCIUM LEVEL 8.8 MG/DL (8.8-10.2); CREATININE FOR GFR 1.34 MG/DL (0.70-1.30); GLOMERULAR FILTRATION RATE 55.3 (>42); MAGNESIUM LEVEL 2.7 MG/DL (1.8-2.4); POTASSIUM SERUM 3.7 MEQ/L (3.5-5.1)
[2016-11-24] MEDS: TIOTROPIUM INHALER/CAPSULE (SPIRIVA) INH SCH (07:44)
[2016-11-24] MEDS: ADVAIR HFA 115/21MCG INHALER INH SCH ×2 (07:45→19:15)
--- NOTE | 2016-11-24 08:12 | IPN ---
DATE OF SERVICE: 11/23/2016 Mr. Roy is seen this morning on his bedside. He is sitting in the chair receiving blood transfusion. He is scheduled for colonoscopy later today. The patient denies any dyspnea, chest pain, fever, chills, nausea or vomiting. PHYSICAL EXAMINATION: Temperature 98 degrees Fahrenheit, heart rate 82 per minute and respiratory rate 18 per minute. Blood pressure 148/90 mmHg and oxygen saturation 96% on room air. Head is atraumatic. Neck veins are not visible sitting upright. Ears, nose and throat are unremarkable. Heart sounds are irregular with prosthetic valve sounds. Lungs sound clear to auscultation bilaterally. Abdomen soft and nontender without palpable organomegaly. Extremities have 2+ leg edema up to mid calf area. Skin has no rash or ulcers. Neurologically, he is awake, alert and oriented times three. Today's labs show WBC count 8.3, hemoglobin 7.4 and hematocrit 22.5. Platelets 240. Sodium 141 and potassium 3.2. BUN is 36 and creatinine 1.51. PROBLEMS: 1. Diastolic congestive heart failure. Volume status remains slightly decompensated with leg edema. Spironolactone 25 mg daily was added yesterday. He also remains on Lasix 40 mg daily. His weight is essentially unchanged for the last 4 days. Today he is nothing by mouth and has received his bowel preparation. I will hold off on adjusting diuretics due to risk of dehydration. Will recheck tomorrow morning. 2. Acute on chronic kidney disease. Kidney function is stable at this level and this is most likely his baseline. 3. Hypokalemia related to diuretic use. Potassium-sparing diuretic has already been added since yesterday. He is also receiving potassium chloride 20 mEq twice a day and another dose of 40 mg has been given this morning. 4. Blood loss anemia. The patient is receiving two more units of packed red blood cells (RBCs) today. He is scheduled for colonoscopy today.
[2016-11-24] MEDS: MULTIVITAMINS/MINERALS THERAP 1 TAB PO SCH (09:15)
[2016-11-24] MEDS: FERROUS SULFATE 325MG TAB PO SCH ×2 (09:15→20:46)
[2016-11-24] MEDS: OMEPRAZOLE 20 MG CAP PO SCH (09:15)
[2016-11-24] MEDS: FUROSEMIDE 40 MG TAB PO SCH ×2 (09:15→20:46)
[2016-11-24] MEDS: SPIRONOLACTONE 25 MG TAB PO SCH (09:15)
[2016-11-24] MEDS: ASPIRIN 81 MG ENTERIC TAB PO SCH (09:15)
[2016-11-24] MEDS: POTASSIUM CHLORIDE 10 MEQ SR TABLET PO SCH ×2 (09:16→20:46)
[2016-11-24] MEDS: MIRALAX *UNIT DOSE* 17GM PACKET PO SCH (09:16)
[2016-11-24] MEDS: BISOPROLOL FUMARATE 5 MG TAB PO SCH (09:16)
[2016-11-24 14:00] VITALS: BP 139/63
[2016-11-24] MEDS: WARFARIN SOD 7.5 MG TAB PO SCH (16:19)
[2016-11-24 20:30] LABS: INR 1.29
[2016-11-24] MEDS: ATORVASTATIN 20 MG TAB PO SCH (20:46)
[2016-11-24 22:00] VITALS: BP 149/70
--- NOTE | 2016-11-24 22:08 | IPN ---
DATE: 11/24/2016 The patient seen and examined. No acute events overnight. Denies any chest pain, pressure or discomfort. Denies any fevers, chills, lightheadedness. Tolerating oral. VITAL SIGNS: Temperature 98.2, pulse 72, respirations 20, blood pressure 139/63, pulse oximetry 95% on room air. LABORATORY: White blood count (WBC) 8.7, hemoglobin and hematocrit 9.6/28.7, platelets 223. Chemistry: Sodium 141, potassium 3.7, chloride 103, bicarbonate 29, BUN 29, creatine 1.34. PHYSICAL EXAMINATION: GENERAL: The patient is alert and oriented times three. No acute distress. HEENT: Normocephalic, atraumatic. PULMONARY: Bilaterally clear to auscultation. CARDIAC: Regular rate and rhythm. Normal S1, S2. Systolic 2/6 murmur. ABDOMEN: Soft, nontender. Positive bowel sounds. EXTREMITIES: Trace edema in bilateral lower extremities. ASSESSMENT AND PLAN: This is a 76-year-old male patient with underlying medical history of diastolic heart failure, hypertension, aortic stenosis with mechanical valve, atrial fibrillation on Coumadin, chronic interstitial fibrosis, hypertension, obstructive sleep apnea, not on CPAP, presented with acute on chronic renal failure due to over diuresis. PROBLEM: 1. Acute on chronic kidney disease due to over diuresis. Nephrology has been consulted. Laboratory consistent with prerenal azotemia. Diuretic initially on hold, currently restarted back on Lasix and spironolactone by nephrology. Followup kidney function. 2. Chronic anemia. The patient is getting prepared for colonoscopy, status post colonoscopy and esophagogastroduodenoscopy (EGD). Colonoscopy with polyp removal. No active source of bleeding. The patient will need to be bridged back to Coumadin from heparin drip. Followup INR. PT and PTT. Received 2 units of packed red blood cell during this hospital stay. 3. Chronic diastolic congestive heart failure. The patient is on Lasix and spironolactone, as per nephrology. Strict input and output, daily weight, followup kidney function. 4. Lower extremity edema. Supportive care. Diuretic as above. Leg elevation. Strict input and output, daily weights. 5. Atrial fibrillation. The patient is on heparin drip bridging to Coumadin. Continue bisoprolol. 6. Hypertension. Continue Lasix, spironolactone and bisoprolol. Monitor blood pressure. 7. Chronic obstructive pulmonary disease (COPD). Continue Advair and Spiriva nebulizer treatment. 8. Obstructive sleep apnea. Noncompliant with CPAP. Repeat sleep study as needed as outpatient. Followup obstructive sleep apnea protocol. 9. Aortic stenosis with mechanical valve on anticoagulation. Heparin drip bridged to Coumadin. Followup INR. 10. Coronary artery disease. Continue aspirin, statin and beta johnnie. 11. Gastroesophageal reflux disease (GERD). Continue proton pump inhibitor (PPI). 12. Deep vein thrombosis (DVT) prophylaxis. Heparin drip bridging to Coumadin. DISPOSITION: Pending therapeutic INR.
[2016-11-25 02:00] VITALS: BP 134/60
[2016-11-25 06:00] VITALS: BP 137/65
[2016-11-25 06:25] LABS: INR 1.35; MEAN CORPUSCULAR HEMOGLOBIN 32.9 pg (27.0-33.0); MEAN CORPUSCULAR HGB CONC 33.3 g/dl (32.0-36.5); MEAN CORPUSCULAR VOLUME 98.8 fl (80.0-96.0); RED CELL DISTRIBUTION WIDTH 15.1 % (11.5-14.5); WHITE BLOOD COUNT 8.1 K/mm3 (4.0-10.0)
[2016-11-25 06:32] LABS: CALCIUM LEVEL 8.2 MG/DL (8.8-10.2); CREATININE FOR GFR 1.41 MG/DL (0.70-1.30); GLOMERULAR FILTRATION RATE 52.2 (>42); MAGNESIUM LEVEL 2.4 MG/DL (1.8-2.4)
[2016-11-25] MEDS: TIOTROPIUM INHALER/CAPSULE (SPIRIVA) INH SCH (08:37)
[2016-11-25] MEDS: ADVAIR HFA 115/21MCG INHALER INH SCH ×2 (08:37→19:16)
[2016-11-25] MEDS: FUROSEMIDE 40 MG TAB PO SCH ×2 (08:40→20:45)
[2016-11-25] MEDS: MIRALAX *UNIT DOSE* 17GM PACKET PO SCH (08:40)
[2016-11-25] MEDS: OMEPRAZOLE 20 MG CAP PO SCH (08:40)
[2016-11-25] MEDS: MULTIVITAMINS/MINERALS THERAP 1 TAB PO SCH (08:40)
[2016-11-25] MEDS: BISOPROLOL FUMARATE 5 MG TAB PO SCH (08:40)
[2016-11-25] MEDS: ASPIRIN 81 MG ENTERIC TAB PO SCH (08:40)
[2016-11-25] MEDS: SPIRONOLACTONE 25 MG TAB PO SCH (08:40)
[2016-11-25] MEDS: POTASSIUM CHLORIDE 10 MEQ SR TABLET PO SCH ×2 (08:40→20:46)
[2016-11-25] MEDS: FERROUS SULFATE 325MG TAB PO SCH ×2 (08:40→20:45)
[2016-11-25 10:00] VITALS: BP 144/63
[2016-11-25] MEDS: SENOKOT S TAB PO SCH ×2 (10:38→20:45)
[2016-11-25 11:46] LABS: INR 1.38
--- NOTE | 2016-11-25 13:15 | IPN ---
DATE OF SERVICE: 11/24/2016 SUBJECTIVE: The patient was seen and examined at the bedside today morning. He was sitting in the sofa. He denies any active complaints today. His renal function continues to improve. The patient has been restarted on heparin drip. The patient got the upper GI, endoscopy, and colonoscopy done yesterday. There was no active source of bleeding. However, multiple colonic polyps were removed. Pathology is still pending. REVIEW OF SYSTEMS: The patient denies any fever, chills, rigors, headache, nausea, vomiting, chest pain, shortness of breath, pain abdomen, or diarrhea. The patient still reports lower extremity edema. The rest of review of systems is negative. OBJECTIVE: Vital signs: Temperature is 97.7 degrees Fahrenheit, blood pressure is 157/73, pulse is 67, respiratory rate of 18, saturating 97% on room air. Intake and output: Urine output recorded is 350 mL so far today. Weight in the bed scale is 127.5 kg. PHYSICAL EXAMINATION: General: The patient is awake, alert, oriented times three, sitting in the sofa, in no apparent distress. Head and neck examination: Extraocular muscles intact. Pupils equally round and reactive to light. Mucous membranes are moist. Neck is supple. There is no jugular venous distention (JVD). Cardiovascular: The patient has a mechanical aortic valve click. Otherwise, no murmur, rub, and gallop Respiratory: Chest is clear to auscultation bilaterally. Bilateral equal air entry. No rales or rhonchi. Abdomen is soft, obese. Positive bowel sounds. Nontender. No ascites. No organomegaly. Musculoskeletal: The patient has 2+ edema of the bilateral lower extremities. Pulses are 2+. No clubbing or cyanosis. Central nervous system (CHIEF ARCHITECT): No focal neurologic deficit. Power is 5/5 in all extremities. Skin: No rashes or ulcers. Psychiatric: Normal mood and affect. LABORATORY RESULTS: CBC showed a WBC 8.7, hemoglobin 9.6, platelets are 223. PTT is 104. BMP showed sodium 141, potassium 3.7, chloride 103, bicarbonate 29, BUN 29, creatinine is 1.34, magnesium is 2.7. CURRENT INPATIENT MEDICATIONS: The patient's medications were all reviewed by me. His ampicillin and gentamicin have been stopped. Vitamin C was also stopped by me today. He is currently on heparin drip. He continues to be on Lasix 40 mg by mouth daily and spironolactone 25 mg by mouth daily. ASSESSMENT: A 76-year-old male with diastolic congestive heart failure, acute kidney injury superimposed on chronic kidney disease, and blood-loss anemia. PLAN: 1. Acute kidney injury superimposed on chronic kidney disease. The patient's renal function is improving. Creatinine is down to 1.3 now. Okay to continue the current dose of diuretics. 2. Decompensated diastolic congestive heart failure. The patient continues to have lower extremity edema. He is currently on Lasix 40 mg daily and spironolactone 25 mg daily. His bed scale weight continues to be the same. I am going to increase the Lasix dose to 40 mg by mouth twice a day. 3. Hypokalemia. It was secondary to aggressive diuresis. Potassium level is better now with the combination of spironolactone and potassium chloride 20 mEq by mouth twice a day. 4. Anemia. The patient got upper and lower GI endoscopy, which was negative for active bleeding. He has received 2 units of packed red blood cells (RBCs) during this admission. Hemoglobin is stable at 9.6. He also was receiving Aranesp 200 mcg subcutaneous. He got one dose on Sunday. Continue to monitor for now. The rest of the management is as per primary team. DISCHARGE PLANNING: It is okay to discharge the patient from nephrology standpoint when his international normalized ratio (INR) is therapeutic. He needs to followup in nephrology about 2 weeks after discharge from the hospital.
[2016-11-25 14:00] VITALS: BP 137/63
[2016-11-25] MEDS: WARFARIN SOD 5 MG TAB PO SCH (16:08)
[2016-11-25 17:42] LABS: INR 1.43
[2016-11-25] MEDS: HEPARIN DRIP 25,000 UNITS in APPROPRIATE DILUENT 1 EA IV SCH (17:53)
[2016-11-25 18:00] VITALS: BP 140/62
[2016-11-25] MEDS: ATORVASTATIN 20 MG TAB PO SCH (20:45)
[2016-11-25 22:00] VITALS: BP 153/72
--- NOTE | 2016-11-25 22:24 | IPN ---
DATE: 11/25/2016 The patient seen and examined. No acute events overnight. Denies any fevers, chills, chest pain, pressure or discomfort. VITAL SIGNS: Temperature 98, pulse 77, respirations 17, blood pressure 140/62, pulse oximetry 96% on room air. LABORATORY: White blood count (WBC) 8.1, hemoglobin and hematocrit 9.2/27.8, platelets 226. Chemistry: Sodium 143, potassium 4, chloride 104, bicarbonate 29, BUN 26, creatine 1.4. PHYSICAL EXAMINATION: GENERAL: The patient is obese, alert and oriented times three. No acute distress. HEENT: Normocephalic, atraumatic. PULMONARY: Bilaterally clear to auscultation. CARDIAC: Regular rate and rhythm. Normal S1, S2. Systolic 2/6 murmur. ABDOMEN: Soft, nontender. Positive bowel sounds. EXTREMITIES: Trace edema in bilateral lower extremities. ASSESSMENT AND PLAN: This is a 76-year-old male patient with underlying medical history of diastolic heart failure, hypertension, aortic stenosis with mechanical valve, atrial fibrillation on Coumadin, chronic interstitial fibrosis, hypertension, obstructive sleep apnea, not on CPAP, presented with acute on chronic renal failure due to over diuresis. PROBLEM: 1. Acute on chronic kidney disease due to over diuresis. Nephrology has been consulted. Laboratory consistent with prerenal azotemia. Diuretic initially on hold, currently restarted back on Lasix and spironolactone by nephrology. Kidney function has returned to baseline. 2. Chronic anemia. The patient is getting prepared for colonoscopy, status post colonoscopy and esophagogastroduodenoscopy (EGD) with polyp removal. No active source of bleeding. Per cardiology, the patient can be bridged back to Coumadin from heparin drip. Followup INR. Followup coagulation. Received 2 units of packed red blood cell during this hospital stay. 3. Chronic diastolic congestive heart failure. The patient is on Lasix and spironolactone, as per nephrology. Strict input and output, daily weight, followup kidney function. 4. Constipation. Continue current bowel regimen. 5. Lower extremity edema. Supportive care. Diuretic as above. Leg elevation. Strict input and output, daily weights. 6. Atrial fibrillation. The patient is on heparin drip bridging to Coumadin. Continue bisoprolol. 7. Hypertension. Continue Lasix, spironolactone and bisoprolol. Monitor blood pressure. 8. Chronic obstructive pulmonary disease (COPD). Continue Advair and Spiriva nebulizer treatment. 9. Obstructive sleep apnea. Noncompliant with CPAP. Will need outpatient repeat sleep study. Followup obstructive sleep apnea protocol. 10. Aortic stenosis with mechanical valve on anticoagulation. Heparin drip bridged to Coumadin. Followup coags. 11. Coronary artery disease. Continue aspirin, statin and beta johnnie. 12. Gastroesophageal reflux disease (GERD). Continue proton pump inhibitor (PPI). 13. Deep vein thrombosis (DVT) prophylaxis. Heparin drip bridging to Coumadin. DISPOSITION: Pending therapeutic INR.
[2016-11-26 02:00] VITALS: BP 154/70
[2016-11-26 06:00] VITALS: BP 146/67
[2016-11-26 06:12] LABS: MEAN CORPUSCULAR HEMOGLOBIN 32.9 pg (27.0-33.0); MEAN CORPUSCULAR HGB CONC 33.3 g/dl (32.0-36.5); MEAN CORPUSCULAR VOLUME 98.8 fl (80.0-96.0); RED CELL DISTRIBUTION WIDTH 15.1 % (11.5-14.5); WHITE BLOOD COUNT 8.3 K/mm3 (4.0-10.0)
[2016-11-26 06:30] LABS: INR 1.75
[2016-11-26 06:31] LABS: CALCIUM LEVEL 8.5 MG/DL (8.8-10.2); CREATININE FOR GFR 1.42 MG/DL (0.70-1.30); GLOMERULAR FILTRATION RATE 51.7 (>42); MAGNESIUM LEVEL 2.1 MG/DL (1.8-2.4)
[2016-11-26] MEDS: TIOTROPIUM INHALER/CAPSULE (SPIRIVA) INH SCH (08:12)
[2016-11-26] MEDS: ADVAIR HFA 115/21MCG INHALER INH SCH ×2 (08:13→19:28)
[2016-11-26] MEDS: MULTIVITAMINS/MINERALS THERAP 1 TAB PO SCH (08:42)
[2016-11-26] MEDS: ASPIRIN 81 MG ENTERIC TAB PO SCH (08:42)
[2016-11-26] MEDS: BISOPROLOL FUMARATE 5 MG TAB PO SCH (08:42)
[2016-11-26] MEDS: FERROUS SULFATE 325MG TAB PO SCH ×2 (08:42→20:38)
[2016-11-26] MEDS: MIRALAX *UNIT DOSE* 17GM PACKET PO SCH (08:42)
[2016-11-26] MEDS: SPIRONOLACTONE 25 MG TAB PO SCH (08:42)
[2016-11-26] MEDS: FUROSEMIDE 40 MG TAB PO SCH (08:42)
[2016-11-26] MEDS: OMEPRAZOLE 20 MG CAP PO SCH (08:42)
[2016-11-26] MEDS: POTASSIUM CHLORIDE 10 MEQ SR TABLET PO SCH ×2 (08:43→20:38)
[2016-11-26] MEDS: SENOKOT S TAB PO SCH ×2 (08:43→20:38)
[2016-11-26 10:00] VITALS: BP 141/63
--- NOTE | 2016-11-26 13:30 | IPN ---
DATE OF SERVICE: 11/26/2016 The patient seen and examined. No acute events overnight. Reported one small episode of blood-tinged sputum. Denies any chest pain, pressure, discomfort. Denies any fevers or chills. As per the patient, he occasionally has hemorrhoid bleeding, and he was passing particularly large stool this morning. VITAL SIGNS: Temperature 98.1, pulse 63, respirations 18, blood pressure 141/63, pulse oximetry 96% on room air. LABORATORY: White blood count (WBC) 8.3, hemoglobin and hematocrit 3.2 over 25, platelets 215. Chemistry: Sodium 140, potassium 4, chloride 104, bicarbonate 30, BUN 31, creatine 1.42. PHYSICAL EXAMINATION: GENERAL: The patient is alert and oriented times three. No acute distress. Obese. HEENT: Normocephalic, atraumatic. PULMONARY: Bilaterally clear to auscultation. CARDIAC: Regular rate and rhythm. Normal S1, S2. 2/6 systolic murmur. ABDOMEN: Soft, nontender. Positive bowel sounds. EXTREMITIES: Trace edema in bilateral lower extremities. ASSESSMENT AND PLAN: This is a 76-year-old male patient with underlying medical history of diastolic heart failure, hypertension, aortic stenosis and aortic valve, atrial fibrillation on Coumadin, chronic interstitial fibrosis, hypertension, obstructive sleep apnea, not on continuous positive airway pressure (CPAP), presented with acute on chronic renal failure due to overdiuresis. PROBLEMS: 1. Acute on chronic kidney disease due to overdiuresis. Nephrology has been consulted. Laboratory consistent with prerenal azotemia. Diuretic initially has been on hold, currently back on Lasix and spironolactone by nephrology. Adjustments per nephrology. Kidney function returned to baseline. 2. Chronic anemia. The patient is status post colonoscopy and esophagogastroduodenoscopy (EGD), as per the patient's director visual, Dr. Barriga, the patient will need to be bridged from heparin back to Coumadin. Followup international normalized ratio (INR). Received a total of 3 units of packed red blood cell during this hospital stay. 3. Chronic diastolic congestive heart failure. Compensated. Continue Lasix and spironolactone. Strict input and output, daily weights. Followup kidney function. 4. Constipation. Bowel regimen as prescribed. 5. Lower extremity edema. Supportive care. Diuretic as above. Leg elevation. Strict input and output, daily weights. 6. Atrial fibrillation. The patient on heparin drip, bridging to Coumadin. Continue bisoprolol. 7. Hypertension. Continue Lasix, spironolactone, and bisoprolol. Monitor blood pressure. 8. Chronic obstructive pulmonary disease (COPD). Continue Advair and Spiriva nebulizer treatment. 9. Obstructive sleep apnea. Noncompliant with CPAP. Will need outpatient repeat sleep studies. 10. Aortic stenosis with mechanical valve, on anticoagulation. Heparin bridged to Coumadin. Followup coags. 11. Coronary arterial disease. Aspirin, statin, beta blockers, and spironolactone. 12. Gastroesophageal reflux disease (GERD). Continue proton pump inhibitor (PPI). 13. Deep vein thrombosis (DVT) prophylaxis. Heparin drip bridging to Coumadin with a goal international normalized ratio (INR) of 1.5 to 3.5. DISPOSITION: Pending therapeutic INR.
[2016-11-26 14:00] VITALS: BP 126/60
[2016-11-26] MEDS: HEPARIN DRIP 25,000 UNITS in APPROPRIATE DILUENT 1 EA IV SCH (15:14)
[2016-11-26 15:23] LABS: INR 1.98
[2016-11-26] MEDS ORDERED: FUROSEMIDE 20 MG TAB PO SCH (17:00)
[2016-11-26] MEDS: WARFARIN SOD 5 MG TAB PO SCH (17:44)
--- NOTE | 2016-11-26 20:15 | IPN ---
DATE: 11/25/2016 SUBJECTIVE: Patient was seen and examined at the bedside today morning. He was sitting in the bed. No apparent distress. He continues to have on intravenous (IV) heparin drip. His Lasix dose was increased yesterday. He reports increased urine output at this time. REVIEW OF SYSTEMS: Patient denies any fevers, chills, rigors, headache, nausea, vomiting, chest pain, shortness of breath, pain in abdomen, constipation, or diarrhea. Patient does report persistent lower extremity edema. OBJECTIVE: Vital signs: Temperature is 98 degrees Fahrenheit, blood pressure is 144/63, pulse is 57, respiratory rate of 70, saturating 95% on room air. Intake and output: Urine output recorded is 1200 mL yesterday, 700 mL so far today since overnight. Weight in the bed scale is 128.7 kg, which is actually 1 kg above his weight yesterday. PHYSICAL EXAMINATION: GENERAL: Patient is awake, alert, oriented times three, sitting in the bed. No apparent distress. HEAD AND NECK: Extraocular muscles intact. Pupils equally round and reactive to light. Mucous membranes are moist. Neck is supple. There is no jugular venous distention (JVD). CARDIOVASCULAR: Patient has a prosthetic aortic valvular click. Otherwise no murmur, rub, or gallop. RESPIRATORY: Chest is clear to auscultation bilaterally. Bilateral equal air entry. No rales or rhonchi. ABDOMEN: Abdomen is soft, obese. Positive bowel sounds. No ascites. No organomegaly. MUSCULOSKELETAL: Patient has 2+ pitting edema of the bilateral lower extremities. Pulses are 2+. No cyanosis. SKIN: No rashes or ulcers. CENTRAL NERVOUS SYSTEM: Power is 5/5 in all extremities. No focal deficit at this time. LABORATORY REVIEW: CBC showed a WBC of 8.1, hemoglobin 9.2, platelets of 266. BMP showed sodium 143, potassium is 4, chloride 104, bicarbonate 29, BUN 26, creatinine is 1.4. CURRENT INPATIENT MEDICATIONS: Patient's medications were all reviewed by me. His Lasix dose was increased to 40 mg by mouth twice a day. There is no other change in the medications today apart from changes in warfarin dose, which has been increased to 10 mg by mouth daily, because his INR is still 1.38 today. ASSESSMENT: A 76-year-old male with diastolic congestive heart failure, acute kidney injury, and blood loss anemia. PLAN: 1. Acute kidney injury. Patient's creatinine is fluctuating around 1.3-1.4. Most likely it is close to his baseline. I will continue the diuresis at this time. 2. Diastolic congestive heart failure. Patient still has significant lower extremity edema. I increased his Lasix dose to 40 mg by mouth twice a day. Patient was taking a total of 90 mg Lasix daily at home. Continue the spironolactone 25 mg daily. Continue potassium 20 mEq by mouth twice a day. If patient does not respond well to current dose of Lasix, then his dose will be increased to 60 mg twice a day. 3. Blood loss anemia. His hemoglobin is stable at 9.2. Continue to monitor for now. Patient also gets Aranesp 200 mcg subcutaneous on Sunday as well.
[2016-11-26] MEDS: ATORVASTATIN 20 MG TAB PO SCH (20:38)
[2016-11-26 22:00] VITALS: BP 150/65
[2016-11-26 23:23] LABS: INR 1.94
[2016-11-27 02:00] VITALS: BP 161/72
[2016-11-27 05:57] LABS: MEAN CORPUSCULAR HEMOGLOBIN 32.5 pg (27.0-33.0); MEAN CORPUSCULAR HGB CONC 33.6 g/dl (32.0-36.5); MEAN CORPUSCULAR VOLUME 96.7 fl (80.0-96.0); RED CELL DISTRIBUTION WIDTH 15.7 % (11.5-14.5); WHITE BLOOD COUNT 8.7 K/mm3 (4.0-10.0)
[2016-11-27 06:00] VITALS: BP 125/69
[2016-11-27 06:05] LABS: INR 2.08
[2016-11-27 06:27] LABS: CALCIUM LEVEL 8.9 MG/DL (8.8-10.2); CREATININE FOR GFR 1.5 MG/DL (0.70-1.30); GLOMERULAR FILTRATION RATE 48.6 (>42); POTASSIUM SERUM 4.2 MEQ/L (3.5-5.1)
[2016-11-27] MEDS: TIOTROPIUM INHALER/CAPSULE (SPIRIVA) INH SCH (07:17)
[2016-11-27] MEDS: ADVAIR HFA 115/21MCG INHALER INH SCH (07:17)
[2016-11-27] MEDS: MIRALAX *UNIT DOSE* 17GM PACKET PO SCH (08:51)
[2016-11-27] MEDS: SPIRONOLACTONE 25 MG TAB PO SCH (08:51)
[2016-11-27] MEDS: MULTIVITAMINS/MINERALS THERAP 1 TAB PO SCH (08:51)
[2016-11-27] MEDS: ASPIRIN 81 MG ENTERIC TAB PO SCH (08:51)
[2016-11-27 08:52] VITALS: BP 128/68
[2016-11-27] MEDS: BISOPROLOL FUMARATE 5 MG TAB PO SCH (08:52)
[2016-11-27] MEDS: SENOKOT S TAB PO SCH (08:53)
[2016-11-27] MEDS: FERROUS SULFATE 325MG TAB PO SCH (08:53)
[2016-11-27] MEDS: OMEPRAZOLE 20 MG CAP PO SCH (08:53)
[2016-11-27] MEDS: POTASSIUM CHLORIDE 10 MEQ SR TABLET PO SCH (08:54)
[2016-11-27] MEDS ORDERED: FUROSEMIDE 40 MG TAB PO SCH (09:00)
[2016-11-27 10:00] VITALS: BP 130/63
--- NOTE | 2016-11-27 10:27 | IPN ---
DATE: 11/26/2016 SUBJECTIVE: The patient was seen and examined at the bedside today morning. He is sitting on the sofa, does not having active complaint. He continues to be on IV heparin drip. There is no significant change in the patient's weight despite twice a day dose of Lasix at this time. REVIEW OF SYSTEMS: The patient denies any fevers, chills, rigors, headache, nausea, vomiting, chest pain, shortness of breath, pain in abdomen, constipation, diarrhea and he reports persistent lower extremity edema. OBJECTIVE: VITAL SIGNS: Temperature is 98.1 degrees Fahrenheit, blood pressure is 141/63, pulse is 63, respiratory rate of 18, saturating 96% on room air. Intake and output: Urine output recorded is 1.8 liters yesterday, 1250 mL so far today since overnight. Weight in the bed scale is 128.5 kg, which is almost the same for the last three to four days. PHYSICAL EXAMINATION: The patient is awake, alert and oriented times three, sitting on a sofa in no apparent distress. HEAD AND NECK EXAM: Extraocular muscles intact. Pupils equally round and reactive to light. Mucous membranes are moist. Neck is supple. There is no jugular venous distension (JVD). CARDIOVASCULAR: S1, S2. Mechanically aortic valve click, otherwise no murmur, rub or gallop. RESPIRATORY: Chest is clear to auscultation bilaterally. Bilateral equal air entry. No rales or rhonchi. ABDOMEN: Soft, obese, positive bowel sounds. Nontender, no ascites, no organomegaly. MUSCULOSKELETAL : The patient has 2+ pitting edema at the bilateral lower extremities. Pulses are 2+. No clubbing or cyanosis. CENTRAL NERVOUS SYSTEM: No focal neurological deficit. Power is 5/5 in all extremities. PSYCHIATRIC: Normal mood and affect. LABORATORY REVIEW: Complete blood count (CBC) showed a white blood count (WBC) of 8.3, hemoglobin 8.3, platelets are 215. Basic metabolic panel (BMP) showed sodium of 140, potassium 4, chloride 104, bicarbonate is 30, BUN 31, creatine 1.42, it was 1.41 yesterday, calcium 8.5, magnesium 2.1 MICROBIOLOGY: Stool for occult blood is positive. CURRENT INPATIENT MEDICATIONS: The patient's medications were all reviewed by me. I have stopped his Lasix 40 mg twice a day and I have changed the dose to 60 mg twice a day now. There is no other change in the medications today. He continues to be on warfarin 10 mg by mouth daily. ASSESSMENT: 76-year-old male with diastolic congestive heart failure, acute kidney injury superimposed on chronic kidney disease and blood loss anemia. PLAN: 1. Acute kidney injury superimposed on chronic kidney disease. The patient's creatine has come down to 1.3 and has been fluctuating between 1.3 and 1.4. Continue the diuretics at this time. 2. Decompensated diastolic congestive heart failure. The patient still has significant 2+ lower extremity edema. He is responding well to the diuretics. However, he is not in negative fluid balance. I have increased the Lasix dose to 60 mg by mouth twice a day. 3. Blood loss anemia. The patient's endoscopies are negative, but his fecal occult blood testing is positive. His hemoglobin has dropped from 9.2 to 8.3. Continue to monitor complete blood count (CBC). If it drops below 9, then he would need a packed red blood cells (PRBC) transfusion.
[2016-11-27] MEDS ORDERED: SPIR25TA2 PO (11:33)
[2016-11-27] MEDS ORDERED: FURO40TA2 PO (11:33)
--- NOTE | 2016-11-27 13:22 | IPN ---
DATE: 11/27/2016 SUBJECTIVE: The patient was seen and examined at the bedside today morning. He is sitting on the sofa. He continues to be on IV heparin drip at this time. The patient's Lasix dose was increased yesterday. He made about 3.7 liters of urine. There is a slight bump in his creatinine from 1.4 to 1.5 today. REVIEW OF SYSTEMS: The patient denies any fevers, chills, rigors, headache, nausea, vomiting, chest pain, shortness of breath, pain in abdomen, constipation, diarrhea. He does report persistent lower extremity edema. The rest of the review of systems is negative. OBJECTIVE: VITAL SIGNS: Temperature is 98 degrees Fahrenheit, blood pressure is 130/63, pulse is 65, respiratory rate of 18, saturating 98% on room air. Intake and output: Urine output recorded is 3.7 liters yesterday, 1.7 liter so far today since overnight. Weight on the bed scale is 127.5 kg. PHYSICAL EXAMINATION: The patient is awake, alert and oriented times three, sitting on a sofa in no apparent distress. HEAD AND NECK EXAM: Extraocular muscles intact. Pupils equally round and reactive to light. Mucous membranes are moist. Neck is supple. There is no jugular venous distension (JVD). CARDIOVASCULAR: S1, S2. Regular rate. The patient has mechanical aortic valve click, otherwise no murmur, rub or gallop. RESPIRATORY: Chest is clear to auscultation bilaterally. Bilateral equal air entry. No rales or rhonchi. ABDOMEN: Soft, obese, nontender. Positive bowel sounds. MUSCULOSKELETAL : The patient has 2+ pitting edema at the bilateral lower extremities. Pulses are 2+. No clubbing or cyanosis. CENTRAL NERVOUS SYSTEM: No focal neurological deficit. Power is 5/5 in all extremities. PSYCHIATRIC: Normal mood and affect. LABORATORY REVIEW: Complete blood count (CBC) showed a white blood count (WBC) of 8.7, hemoglobin 9, platelets are 215. Basic metabolic panel (BMP) showed sodium of 140, potassium 4.2, chloride 104, bicarbonate is 30, BUN 29, creatine 1.5, it was 1.4 yesterday, calcium 8.9, magnesium 2. CURRENT INPATIENT MEDICATIONS: The patient's medications were all reviewed by me. His Lasix dose has been changed to 40 mg by mouth twice a day by the primary team. He continues to be on spironolactone 25 mg daily and potassium chloride 20 mEq by mouth twice a day. There is no other change in the medications at this time. ASSESSMENT: 76-year-old male with diastolic congestive heart failure, acute kidney injury superimposed on chronic kidney disease and blood loss anemia. PLAN: 1. Acute kidney injury superimposed on chronic kidney disease. The patient's creatine has fluctuating around 1.4; however, I see a small bump in the creatinine because of diuresis, it is up to 1.5 now. Primary team has already decreased the diuretic dose to 40 mg by mouth twice a day. 2. Decompensated diastolic congestive heart failure. The patient's diuretic dose has been decreased to 40 mg by mouth twice a day. He can go home on the current dose and the dose will be adjusted as an outpatient if needed. 3. Blood loss anemia. The patient's hemoglobin is stable at 9. No need for a blood transfusion at this time. The patient was given Aranesp during this admission. He will be followed up as an outpatient for any need to continue Aranesp or Procrit injections. DISCHARGE PLANNING: It is okay to discharge the patient from a nephrology standpoint, he needs to followup with nephrology within 2 weeks after discharge from the hospital. Plan of care was discussed with the hospitalist, Dr. Mell Arteaga.
--- NOTE | 2016-11-27 16:47 | DSES ---
DATE OF ADMISSION: 11/17/2016 DATE OF DISCHARGE: 11/27/2016 DUMPSTER OPERATOR: Dr. John and Dr. Ritchie XEROX MACHINE ASSEMBLER: Dr. Giles PRIMARY CARE PROVIDER: Dr. Tiago Jo FINAL DIAGNOSES: 1. Acute on chronic kidney disease. 2. Chronic anemia. 3. Colonic polyp. 4. Chronic diastolic congestive heart failure. 5. Constipation. 6. Lower extremity edema. 7. Atrial fibrillation. 8. Hypertension. 9. Chronic obstructive pulmonary disease (COPD). 10. Aortic stenosis. 11. Obstructive sleep apnea. 12. Coronary artery disease. 13. Gastroesophageal reflux disease (GERD). HISTORY OF PRESENT ILLNESS: This is a 76-year-old male patient with underlying medical history of diastolic congestive heart failure, hypertension, aortic stenosis status post aortic valve replacement as well as atrial fibrillation on Coumadin, chronic interstitial fibrosis, hypertension, obstructive sleep apnea not on continuous positive airway pressure (CPAP) who presented with abnormal laboratories. The patient has been having lower extremity edema which has been managed by primary care provider. The patient states that his Lasix has been increased followed by addition of metolazone over the past 10 days and he states that his swelling has significantly improved. The patient had gone sap consultant and had been sent to the laboratory to get his kidney function checked. The patient had been advised to come to the emergency room. The patient has been urinating well. He denies any dysuria, chest pain, pressure or discomfort, nausea, vomiting, abdominal pain. HOSPITAL COURSE: In the hospital, the patient was found to be in acute on chronic renal sufficiency. Diuretics have been on hold. IV fluids for gentle hydration were initially provided. The patient's kidney function returned to baseline. Nephrology was consulted for further management of diuretics and diuretics have been slowly added back to the patient's medication regimen. In the meantime, the patient does need an esophagogastroduodenoscopy (EGD) and colonoscopy for chronic anemia workup which has been planned prior to admission. Dr. Barriga has decided that given the patient's mechanical valve the patient needs to bridged with heparin and subsequently Coumadin was on hold. The patient placed on heparin drip once international normalized ratio (INR) is below 2.5 and the patient was scoped by Dr. Giles with EGD/colonoscopy with no active bleeding and found polyp that was taken. Pathology was sent. Subsequently, the patient was restarted on Coumadin, bridged from heparin back to Coumadin. Currently, INR is 2.08. Case discussed with Dr. Barriga who is comfortable sending the patient home with an INR above 2 to continue to take the Coumadin and recheck INR as outpatient. The patient has a goal INR of 2.5, but at home ranges from 2.1 to about 3.2. The patient currently tolerating oral, able to ambulate, in no acute distress, comfortable. VITAL SIGNS: Temperature 98, pulse 65, respiratory rate 18, blood pressure 130/63, pulse oximetry 98% on room air. GENERAL: The patient is obese, alert and oriented times three, in no acute distress. HEENT: Normocephalic, atraumatic. PULMONARY: Bilaterally clear to auscultation. CARDIAC: Regular rate and rhythm with normal S1, S2. A 2/6 systolic murmur. ABDOMEN: Soft, nontender. Positive bowel sounds. EXTREMITIES: Trace edema of bilateral lower extremities. LABORATORY DATA: WBC 8.7, hemoglobin and hematocrit 9/26.9, platelets 217. Chemistry: Sodium 140, potassium 4.2, chloride 104, bicarbonate 30, BUN 29, creatinine 1.5. DISCHARGE MEDICATIONS: - Lasix 40 mg by mouth twice a day - spironolactone 25 mg by mouth every morning - vitamin C 1000 mg by mouth daily - aspirin 81 mg by mouth daily - atorvastatin 20 mg by mouth at bedtime - bisoprolol 5 mg by mouth every morning - ferrous sulfate 325 mg by mouth twice a day - multivitamin one tablet by mouth daily - sublingual nitroglycerin 0.4 mg as needed - omeprazole 20 mg by mouth daily - MiraLAX 17 grams by mouth daily - potassium chloride 20 mEq by mouth daily - Advair Diskus 250/50 mcg combination twice a day - Spiriva 18 mcg inhalation at bedtime - Coumadin 10 mg by mouth twice a week and 7.5 mg by mouth five times a week DISCHARGE INSTRUCTIONS: The patient is instructed to followup with track vehicle repairer in 7-10 days and primary care provider in five days, check international normalized ratio (INR) with primary care provider, adjustment of diuretics as per track vehicle repairer, daily weight, and return to the hospital if symptoms worsen.
== END 2016-11-27 15:17 | disposition home or self-care (01) | DRG 682 ==
LOC: M ED 17:10 → M ED INP 21:20 → M PCU 23:09 → M MSPAV 11-19 12:48
PROVIDERS: ADMIT Internal Medicine; ATTEND Hospitalist
PROC: 30233N1 Transfusion of Nonautologous Red Blood Cells into Peripheral Vein, Percutaneous Approach (ICD-10-PCS; 2016-11-22)
PROC: 0DBL8ZX Excision of Transverse Colon, Via Natural or Artificial Opening Endoscopic, Diagnostic (ICD-10-PCS; 2016-11-23)
PROC: 0DBN8ZX Excision of Sigmoid Colon, Via Natural or Artificial Opening Endoscopic, Diagnostic (ICD-10-PCS; 2016-11-23)
PROC: 0DBH8ZX Excision of Cecum, Via Natural or Artificial Opening Endoscopic, Diagnostic (ICD-10-PCS; 2016-11-23)
PROC: 0DB98ZX Excision of Duodenum, Via Natural or Artificial Opening Endoscopic, Diagnostic (ICD-10-PCS; principal; 2016-11-23 09:40)
DX: N17.9 Acute kidney failure, unspecified (principal); I50.33 Acute on chronic diastolic (congestive) heart failure; I13.0 Hypertensive heart and chronic kidney disease with heart failure and stage 1 through stage 4 chronic kidney disease, or unspecified chronic kidney disease; I48.2 Chronic atrial fibrillation; K21.9 Gastro-esophageal reflux disease without esophagitis; I25.10 Atherosclerotic heart disease of native coronary artery without angina pectoris; G47.33 Obstructive sleep apnea (adult) (pediatric); I35.0 Nonrheumatic aortic (valve) stenosis; J44.9 Chronic obstructive pulmonary disease, unspecified; K59.00 Constipation, unspecified; D50.0 Iron deficiency anemia secondary to blood loss (chronic); Z79.01 Long term (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 of anticoagulants; Z95.2 Presence of prosthetic heart valve; J84.10 Pulmonary fibrosis, unspecified; Z79.899 Other long term (current) drug therapy; Z87.891 Personal history of nicotine dependence; E87.6 Hypokalemia; E78.5 Hyperlipidemia, unspecified; Z91.19 Patient's noncompliance with other medical treatment and regimen; K44.9 Diaphragmatic hernia without obstruction or gangrene; K57.30 Diverticulosis of large intestine without perforation or abscess without bleeding

== ENCOUNTER → 2016-11-17 | Outpatient (CLI) | payer MEDICARE ==
[2016-11-17 15:23] LABS: ALBUMIN 3.6 GM/DL (3.2-5.2); CALCIUM LEVEL 8.7 MG/DL (8.8-10.2); CREATININE FOR GFR 2.73 MG/DL (0.70-1.30); GLOMERULAR FILTRATION RATE 24.3 (>42); MAGNESIUM LEVEL 3.2 MG/DL (1.8-2.4); PHOSPHORUS LEVEL 4.7 MG/DL (2.5-4.9); POTASSIUM SERUM 3.7 MEQ/L (3.5-5.1)
== END ==
LOC: M LAB 14:24
PROVIDERS: ATTEND Physician Assistant
DX: I50.32 Chronic diastolic (congestive) heart failure (principal); I48.2 Chronic atrial fibrillation

== ENCOUNTER → 2016-11-28 | Outpatient (CLI) | payer MEDICARE ==
[~2016-11-28] MED LIST changes: +ASPI81TA21 PO; +ATOR1TAB21 PO; +ERGO500014 PO; +FLON1SPR; +FOLI1TAB4 PO; +FURO40TA2 PO; +LOSA25TA8 PO; +METO5TA; +NITR0.4S14 SL; +OMEP20CA3 PO; +OMEP40CA2 PO; +OPTI0.5D5 OS; +POTA1TAB14 PO; +PROAAER10 INH; +SPIR1AER INH; +VITA10006 PO; +VITA200028 PO; +VITMTA PO
[2016-11-28 12:32] LABS: INR 2.28
== END ==
LOC: M LAB 11:16
PROVIDERS: ATTEND Nurse Practitioner Family
DX: I48.91 Unspecified atrial fibrillation (principal); Z79.01 Long term (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 of anticoagulants; Z51.81 Encounter for therapeutic drug level monitoring

== ENCOUNTER → 2016-11-30 | Outpatient (CLI) | payer MEDICARE ==
[2016-11-30 10:47] LABS: INR 2.62
== END ==
LOC: M LAB 09:44
PROVIDERS: ATTEND Nurse Practitioner Family
DX: I48.91 Unspecified atrial fibrillation (principal); Z79.01 Long term (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 of anticoagulants

== ENCOUNTER → 2016-12-05 | Outpatient (CLI) | payer MEDICARE ==
[~2016-12-05] MED LIST changes: +E-Z-PAQUE 96% w/w SUSP 176GM BTL As Ordered ONE
--- NOTE | 2016-12-05 17:44 | REP ---
SMALL BOWEL FOLLOW THROUGH: The procedure was performed by EDMOND Blum under the direct supervision of the Dr. Peñaloza. All imaging was reviewed with Dr Peñaloza prior to dictation. Standard barium small bowel series was performed with multiple overhead radiographs. In addition, the small bowel was fluoroscopically examined. FINDINGS: The small bowel is normal in course and caliber. There are no intrinsic or extrinsic mass lesions identified. The transit time was approximately 15 minutes. The terminal ileum appeared normal under fluoroscopic examination. IMPRESSION: Unremarkable small bowel follow through. Fluoroscopy time was 55 seconds. Reviewed by EDMOND Zelaya 12/06/2016 08:05 AEdited and Signed by Tanmay Peñaloza MD 12/06/2016 05:01 P
== END ==
LOC: M RAD 10:15
PROVIDERS: ATTEND Internal Medicine Gastroenterology
DX: D62 Acute posthemorrhagic anemia (principal)

== ENCOUNTER → 2016-12-08 | Outpatient (REF) | payer MEDICARE ==
[~2016-12-08] MED LIST changes: -E-Z-PAQUE 96% w/w SUSP 176GM BTL As Ordered ONE
[2016-12-08 13:59] LABS: FOLATE 5.1 NG/ML (>5.4)
[2016-12-08 14:01] LABS: PERCENT SATURATION 32.5 % (19.7-50.0)
== END ==
LOC: M LAB REF 13:01
PROVIDERS: ATTEND Internal Medicine Nephrology
DX: D50.9 Iron deficiency anemia, unspecified (principal)

== ENCOUNTER → 2016-12-14 | Outpatient (CLI) | payer MEDICARE ==
[2016-12-14 10:07] LABS: INR 3.32
== END ==
LOC: M LAB 09:30
PROVIDERS: ATTEND Physician Assistant
DX: I48.91 Unspecified atrial fibrillation (principal); Z51.81 Encounter for therapeutic drug level monitoring; Z79.01 Long term (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 of anticoagulants

== ENCOUNTER → 2016-12-15 | Outpatient (REF) | payer MEDICARE | LOC: M LAB REF 16:53 | PROVIDERS: ATTEND Internal Medicine Nephrology | DX: D50.9 Iron deficiency anemia, unspecified (principal) ==

== ENCOUNTER 2016-12-20 14:08 | Observation (INO) | payer MEDICARE ==
[~2016-12-20] VITALS: Ht 188 cm; Wt 126.9 kg
[~2016-12-20 14:08] MED LIST changes: -ERGO500014 PO; -FLON1SPR; -FOLI1TAB4 PO; -LOSA25TA8 PO; -OMEP40CA2 PO; -OPTI0.5D5 OS; -PROAAER10 INH; -SPIR1AER INH; -VITA200028 PO
[2016-12-20] MEDS ORDERED: FOLI1TAB4 PO (14:18)
[2016-12-20] MEDS ORDERED: VITA200028 PO (14:18)
--- NOTE | 2016-12-20 15:16 | REP ---
CT Head without contrast HISTORY: Dizziness COMPARISON: None Areas of decreased attenuation are present in the periventricular white matter. This represents small-vessel ischemic disease. There is no intraparenchymal hemorrhage, acute infarct, mass or midline shift. The ventricular system and cortical sulci as well as subarachnoid space in the posterior fossa are dilated consistent with moderate volume loss. There is no extra cerebral collection. There is no fracture. The visualized sinuses are clear. IMPRESSION: 1. Small vessel ischemic disease. 2. Moderate volume loss. Signed by Davonte Louise MD 12/20/2016 03:08 P
[2016-12-20 15:39] LABS: BASO % 0.6 % (0.0-1.0); EOS # 0.2 K/mm3 (0.0-0.50); EOS % 2.5 % (0.0-3.0); LARGE UNSTAINED CELL # 0.1 K/mm3 (0.0-0.4); LARGE UNSTAINED CELL % 0.9 % (0.0-4.0); LYMPH # 0.6 K/mm3 (1.5-4.5); LYMPH % 7.5 % (24.0-44.0); MEAN CORPUSCULAR HEMOGLOBIN 30.9 pg (27.0-33.0); MEAN CORPUSCULAR HGB CONC 32.1 g/dl (32.0-36.5); MONO # 0.5 K/mm3 (0.0-0.8); MONO % 6.8 % (0.0-5.0); NEUTROPHILS # 5.7 K/mm3 (1.8-7.7); NEUTROPHILS % 81.5 % (36.0-66.0); PLATELET COUNT, AUTOMATED 279 k/mm3 (150-450)
[2016-12-20 15:46] LABS: INR 3.89
[2016-12-20 15:53] LABS: ANION GAP 7 MEQ/L (8-16); BLOOD UREA NITROGEN 38 MG/DL (7-18); CALCIUM LEVEL 8.9 MG/DL (8.8-10.2); CARBON DIOXIDE LEVEL 27 MEQ/L (21-32); CHLORIDE LEVEL 107 MEQ/L (98-107); CREATININE FOR GFR 1.46 MG/DL (0.70-1.30); GLOMERULAR FILTRATION RATE 50.1 (>42); GLUCOSE, FASTING 102 MG/DL (83-110); POTASSIUM SERUM 4.6 MEQ/L (3.5-5.1); SODIUM LEVEL 141 MEQ/L (136-145)
[2016-12-20] MEDS ORDERED: LOSA25TA8 PO (16:44)
[2016-12-20] MEDS ORDERED: PROAAER10 INH (16:44)
[2016-12-20] MEDS ORDERED: SPIR25TA2 PO (16:46)
[2016-12-20] MEDS ORDERED: FURO40TA2 PO (16:46)
[2016-12-20] MEDS ORDERED: ONDANSETRON 4MG/2ML VIAL (J2405) IV PRN (17:15)
[2016-12-20] MEDS ORDERED: ALBUTEROL 90 MCG/ACT 8GM HFA INHALER INH PRN (17:15)
[2016-12-20] MEDS ORDERED: ACETAMINOPHEN TAB 650MG DOSE (2X325MG) PO PRN (17:15)
[2016-12-20] MEDS ORDERED: FUROSEMIDE 40 MG/4 ML VIAL (J1940) IV ONE (17:45)
[2016-12-20] MEDS ORDERED: ERGO500014 PO (18:27)
[2016-12-20 20:15] VITALS: BP 155/69
[2016-12-20] MEDS: TIOTROPIUM INHALER/CAPSULE (SPIRIVA) INH SCH (21:00)
[2016-12-20] MEDS: ADVAIR HFA 115/21MCG INHALER INH SCH (21:19)
[2016-12-20] MEDS: FUROSEMIDE 40 MG TAB PO SCH (21:56)
[2016-12-20] MEDS: SENOKOT S TAB PO SCH (21:56)
[2016-12-20] MEDS: LOSARTAN 25 MG TAB PO SCH (21:56)
[2016-12-20] MEDS: FOLIC ACID 1 MG TAB PO SCH (21:57)
[2016-12-20] MEDS: FERROUS SULFATE 325MG TAB PO SCH (21:57)
[2016-12-20] MEDS: ATORVASTATIN 20 MG TAB PO SCH (21:57)
[2016-12-20 22:00] VITALS: BP 136/79
[2016-12-20 22:05] VITALS: BP 131/73
[2016-12-20 22:10] VITALS: BP 135/73
[2016-12-21 06:00] VITALS: BP 139/64
[2016-12-21 06:05] VITALS: BP 137/61
[2016-12-21 06:10] VITALS: BP 156/62
[2016-12-21 06:48] LABS: MEAN CORPUSCULAR HEMOGLOBIN 31.4 pg (27.0-33.0); MEAN CORPUSCULAR HGB CONC 33.3 g/dl (32.0-36.5); MEAN CORPUSCULAR VOLUME 94.3 fl (80.0-96.0); RED CELL DISTRIBUTION WIDTH 14.1 % (11.5-14.5); WHITE BLOOD COUNT 8.1 K/mm3 (4.0-10.0)
[2016-12-21 06:53] LABS: INR 3.12
[2016-12-21 06:59] LABS: CALCIUM LEVEL 8.5 MG/DL (8.8-10.2); CREATININE FOR GFR 1.38 MG/DL (0.70-1.30); GLOMERULAR FILTRATION RATE 53.5 (>42); MAGNESIUM LEVEL 2.6 MG/DL (1.8-2.4)
[2016-12-21] MEDS: ADVAIR HFA 115/21MCG INHALER INH SCH ×2 (07:13→20:43)
--- NOTE | 2016-12-21 07:38 | HPE ---
DATE OF ADMISSION: 12/20/2016 PRIMARY CARE PROVIDER: Tiago Jo MD TOOL AND DIE SUPERVISOR: Dick Giles M.D. CHIEF COMPLAINT: Weakness. HISTORY OF PRESENT ILLNESS: This is a 76-year-old male patient with underlying medical history of mechanical aortic valve replacement on Coumadin, coronary arterial disease with PCI, tonsillectomy, diastolic heart failure, chronic kidney disease (CKD), atrial fibrillation, chronic interstitial fibrosis, hypertension, obstructive sleep apnea not on CPAP recently discharged from the hospital with esophagogastroduodenoscopy (EGD) colonoscopy that was done showing to be negative. During the hospital stay, the patient received a total of 3 units of packed red blood cells, as well as acute on chronic renal insufficiency due to over diuresis. The patient was discharged from the hospital after esophagogastroduodenoscopy (EGD) and colonoscopy. Subsequently was following with Dr. Dick Giles with capsule endoscopy, was in the process of following with Dr. Tiago Jo today; in the process of visiting, the patient felt a bit weak this morning, a bit shaken with a similar symptom last time when the patient was anemic, subsequently came to the hospital found to have hemoglobin of 7.5. Subsequently, the patient was admitted. The patient is hemodynamically stable. Orthostatic negative. Currently, reported back to baseline before even transfused. Denies any shortness of breath, chest pain, pressure or discomfort. At baseline does have 1+ bilateral lower extremity edema. Denies any coughing, shortness of breath, urinary complaints, abdominal pain, nausea, vomiting, diarrhea. The patient at baseline is constipated making bowel movement every two to three days that is brown and dark, but otherwise does not have any diarrhea or melena. Recently, the patient had the capsule endoscopy done on Sunday. Unfortunately, Dr. Dick Giles is away on vacation. I called Dr. Batista, who has given the number to call to see if the capsule endoscopy report is available. The number is [phone]; will attempt to do so tomorrow. ALLERGIES: No known drug allergies. PAST MEDICAL HISTORY: 1. Chronic kidney disease (CKD) 2 Diastolic congestive heart failure (CHF). 3. Hypertension. 4. Aortic stenosis with mechanical aortic valve. 5. Atrial fibrillation on Coumadin 6. Chronic interstitial fibrosis. 7. Hypertension. 8. Sleep apnea, not on CPAP. 9. History of fecal occult positive. 10. History of anemia undergoing gastrointestinal (GI) work up. PAST SURGICAL HISTORY: 1. Aortic valve replacement. 2. Coronary artery disease with stent. 3. Tonsillectomy. SOCIAL HISTORY: The patient smokes two packs per day for 30 years, quit many years ago. No alcohol or illicit drug use FAMILY HISTORY: Noncontributory. ALLERGIES: No known drug allergies. REVIEW OF SYSTEMS: Report shakiness and weakness that has improved. HOME MEDICATIONS: - vitamin D 22656 units by mouth per week - nitroglycerin sublingual 0.4 mg as needed - Coumadin 7.5 mg five times a week and 10 mg twice a week - ProAir as needed - vitamin C 1000 mg by mouth daily - aspirin 81 mg by mouth daily - Lipitor 20 mg by mouth at bedtime (q.h.s.) - bisoprolol 5 mg by mouth daily - ferrous sulfate 325 mg by mouth twice a day - folic acid 1 mg by mouth daily - Lasix 40 mg by mouth twice a day - losartan 25 mg by mouth every p.m. - multivitamins one tablet by mouth daily - omeprazole 20 mg by mouth daily - MiraLAX by mouth daily - potassium chloride 20 mEq by mouth daily - Advair 250/50 mcg inhalation twice a day - spironolactone 25 mg by mouth daily - Spiriva 18 mcg inhalation daily. PHYSICAL EXAMINATION: VITAL SIGNS: Temperature 98.8, pulse 67, respirations 18, blood pressure (BP) 144/65, pulse oximetry 98% on room air. GENERAL: The patient is alert and oriented times three in no acute distress. HEENT: Normocephalic, atraumatic. PULMONARY: Bilateral clear to auscultation. CARDIAC: Regular rate and rhythm. Normal S1, S2, 3/6 systolic murmur. ABDOMEN: Soft and nontender. Positive bowel sounds. EXTREMITIES: 1+ edema bilateral lower extremities. LABORATORY: White blood count (WBC) 7, hemoglobin and hematocrit 7.5/23.3, platelets 278. Chemistry: Sodium 141, potassium 4.6, chloride 107, bicarbonate 27, BUN 38, creatine 1.45, cardiac enzymes negative times 1. INR 3.88. ASSESSMENT AND PLAN: This is a 79-year-old male patient with underlying medical history of diastolic congestive heart failure, hypertension, aortic stenosis with biomechanical aortic valve, atrial fibrillation on Coumadin, chronic interstitial fibrosis, hypertension, obstructive sleep apnea, chronic kidney disease (CKD), he is not CPAP at home, admitted for symptomatic anemia. PROBLEMS: 1. Symptomatic anemia. The patient had a full work up including esophagogastroduodenoscopy (EGD) and colonoscopy and had just had capsule endoscopy done on Sunday. Will attempt to get report. Continue proton pump inhibitor (PPI). Iron supplement, fully supplementation. Monitor hemoglobin and hematocrit. Transfuse 1 unit of packed red blood cells (PRBC). The patient's INR is supra-therapeutic. Will hold Coumadin today. 2. Supra-therapeutic INR. Will hold Coumadin 7.5 mg daily. 3. Chronic diastolic congestive heart failure compensated. Will give Lasix during transfusion. Continue Lasix and spironolactone. Strict input and output and daily weights. 4. Constipation. Continue bowel regimen. 5. Atrial fibrillation. The patient is on Coumadin. Will followup INR. Continue bisoprolol. 6. Aortic valve. Goal INR of 2.5 to 3.5. Holding Coumadin today. Will also restart Coumadin tomorrow. 7. Hypertension. Continue bisoprolol, spironolactone, Lasix and monitor blood pressure. Continue losartan. 8. Chronic obstructive pulmonary disease (COPD). Continue Advair and Spiriva nebulizer treatment. 9. Obstructive sleep apnea. Will monitor closely. Does not use CPAP yet. 10. Coronary arteria disease. Continue aspirin, statin and beta blockers, spirolactone and Lasix. Monitor blood pressure. 11. Gastroesophageal reflux disease (GERD). Continue proton pump inhibitor (PPI). 12. Deep vein thrombosis (DVT) prophylaxis on Coumadin with supra-therapeutic INR. DISPOSITION: Pending transfusion and will attempt to get capsule endoscopy report. The patient currently is hemodynamically stable, orthostatic negative. Will monitor the patient on medical surgical floor.
[2016-12-21 08:48] LABS: ALBUMIN 3.1 GM/DL (3.2-5.2)
[2016-12-21] MEDS ORDERED: OMEPRAZOLE 20 MG CAP PO SCH (09:00)
[2016-12-21] MEDS: MULTIVITAMINS/MINERALS THERAP 1 TAB PO SCH (10:06)
[2016-12-21] MEDS: FUROSEMIDE 40 MG TAB PO SCH ×2 (10:06→21:55)
[2016-12-21] MEDS: POTASSIUM CHLORIDE 10 MEQ SR TABLET PO SCH (10:07)
[2016-12-21] MEDS: SPIRONOLACTONE 25 MG TAB PO SCH (10:07)
[2016-12-21] MEDS: SENOKOT S TAB PO SCH ×2 (10:07→21:00)
[2016-12-21] MEDS: FERROUS SULFATE 325MG TAB PO SCH ×2 (10:07→21:55)
[2016-12-21] MEDS: MIRALAX *UNIT DOSE* 17GM PACKET PO SCH (10:07)
[2016-12-21] MEDS: BISOPROLOL FUMARATE 5 MG TAB PO SCH (10:08)
[2016-12-21] MEDS: ASCORBIC ACID 500 MG TAB PO SCH (10:08)
[2016-12-21] MEDS: ASPIRIN 81 MG ENTERIC TAB PO SCH (10:08)
[2016-12-21 14:00] VITALS: BP 140/63
[2016-12-21] MEDS ORDERED: WARFARIN SOD 7.5 MG TAB PO SCH (17:00)
[2016-12-21 18:50] LABS: CALCIUM LEVEL 8.6 MG/DL (8.8-10.2); CREATININE FOR GFR 1.4 MG/DL (0.70-1.30); GLOMERULAR FILTRATION RATE 52.6 (>42); POTASSIUM SERUM 4.4 MEQ/L (3.5-5.1)
[2016-12-21] MEDS: ATORVASTATIN 20 MG TAB PO SCH (21:55)
[2016-12-21] MEDS: LOSARTAN 25 MG TAB PO SCH (21:55)
[2016-12-21] MEDS: FOLIC ACID 1 MG TAB PO SCH (21:55)
[2016-12-21] MEDS: OMEPRAZOLE 20 MG CAP PO SCH (21:56)
[2016-12-21 22:00] VITALS: BP 164/78
[2016-12-22] MEDS: TIOTROPIUM INHALER/CAPSULE (SPIRIVA) INH SCH (05:06)
--- NOTE | 2016-12-22 05:57 | ECGEPIP ---
Stationary ECG Study [facility] - ED Test Date: 2016-12-20 Pat Name: YESSENIA BECK Department: Room: - Gender: M Aerodynamicist: SANDY : 1940 Requested By: Dudley Diaz Order Number: [id number] Reading MD: Dudley Wilson Measurements Intervals [place] Rate: 74 P: VT: 0 QRS: 9 QRSD: 121 T: 48 QT: 424 QTc: 471 Interpretive Statements ATRIAL FIBRILLATION MODERATE INTRAVENTRICULAR CONDUCTION DELAY NSTTW ABNORMALITIES SIMILAR TO 11/17/16 Electronically Signed On 12-22-2016 5:56:40 EDT by Dudley Wilson
[2016-12-22 06:00] VITALS: BP_SYST 146; BP_SYST 158; BP_SYST 161; BP_DIAS 65; BP_DIAS 76; BP_DIAS 77
[2016-12-22 06:52] LABS: MEAN CORPUSCULAR HEMOGLOBIN 31.5 pg (27.0-33.0); MEAN CORPUSCULAR HGB CONC 33.2 g/dl (32.0-36.5); MEAN CORPUSCULAR VOLUME 95.1 fl (80.0-96.0); RED CELL DISTRIBUTION WIDTH 14.5 % (11.5-14.5); WHITE BLOOD COUNT 7.9 K/mm3 (4.0-10.0)
[2016-12-22 06:58] LABS: INR 2.68
[2016-12-22 07:07] LABS: CALCIUM LEVEL 8.9 MG/DL (8.8-10.2); CREATININE FOR GFR 1.37 MG/DL (0.70-1.30); GLOMERULAR FILTRATION RATE 53.9 (>42); MAGNESIUM LEVEL 2.7 MG/DL (1.8-2.4)
[2016-12-22] MEDS: ADVAIR HFA 115/21MCG INHALER INH SCH (07:15)
[2016-12-22] MEDS ORDERED: COUM7.5T PO ×2 (08:34→10:42)
[2016-12-22] MEDS: ASCORBIC ACID 500 MG TAB PO SCH (08:45)
[2016-12-22] MEDS: ASPIRIN 81 MG ENTERIC TAB PO SCH (08:45)
[2016-12-22] MEDS: MIRALAX *UNIT DOSE* 17GM PACKET PO SCH (08:45)
[2016-12-22] MEDS: FERROUS SULFATE 325MG TAB PO SCH (08:45)
[2016-12-22] MEDS: POTASSIUM CHLORIDE 10 MEQ SR TABLET PO SCH (08:45)
[2016-12-22 08:46] VITALS: BP 146/65
[2016-12-22] MEDS: MULTIVITAMINS/MINERALS THERAP 1 TAB PO SCH (08:46)
[2016-12-22] MEDS: SPIRONOLACTONE 25 MG TAB PO SCH (08:46)
[2016-12-22] MEDS: BISOPROLOL FUMARATE 5 MG TAB PO SCH (08:46)
[2016-12-22] MEDS: FUROSEMIDE 40 MG TAB PO SCH (08:46)
[2016-12-22] MEDS: SENOKOT S TAB PO SCH (08:46)
[2016-12-22] MEDS: OMEPRAZOLE 20 MG CAP PO SCH (08:47)
[2016-12-22] MEDS ORDERED: VITAMIN D 50,000 UNITS CAPSULE (ERGOCALCIFEROL 1.25MG) PO SCH (09:00)
[2016-12-22] MEDS ORDERED: OMEP40CA2 PO (10:40)
--- NOTE | 2016-12-23 20:24 | DS.PDOC ---
Discharge Summary General Date of Admission Dec 20, 2016 at 17:11 Date of Discharge 12/22/2016 Attending Physician: MJ RICHARD MD Discharge Summary Primary Care Physician: Tiago Jo MD PROCEDURES PERFORMED DURING STAY: None. ADMITTING DIAGNOSES: 1. Symptomatic Anemia 2. Supra-therapeutic INR. 3. Chronic CHF. 4. Constipation, chronic 5. Atrial fibrillation 6. Mechanical Aortic Valve 7. Hypertension 8. COPD 9. CAD 10. GERD 11. BLANE DISCHARGE DIAGNOSES: 1. Symptomatic Anemia 2. Supra-therapeutic INR. 3. Chronic CHF. 4. Constipation, chronic 5. Atrial fibrillation 6. Mechanical Aortic Valve 7. Hypertension 8. COPD 9. CAD 10. GERD 11. BLANE COMPLICATIONS/CHIEF COMPLAINT: Weakness. Symptomatic Anemia. HISTORY OF PRESENT ILLNESS: Patient is a 76-year-old male with past medical history significant for aortic valve replacement on Coumadin, coronary artery disease, diastolic heart failure, chronic kidney disease, atrial fibrillation, hypertension, CPAP was recently discharged the hospital with EGD and colonoscopy that was done to be negative. During hospital stay patient received a total of 3 units of blood. Patient was discharged after procedures performed. Subsequently patient received a capsule endoscopy from Dr. Giles. Patient was in the process of following up with Dr. Jo, primary care doctor today. While visiting his primary care doctor the patient felt a bit weak shaken with similar symptoms the last time patient was anemic. Patient came to the hospital essentially found to have a hemoglobin was 7.5. Patient was then admitted under hospital service. Patient is highly hemodynamically stable at admission. In the ER patient had a type and screen performed. Patient was given 1 unit of blood. Patient was subsequently admitted to hospital service. CT of head did not reveal any acute changes. This was performed due to patient's weakness. HOSPITAL COURSE: While patient was admitted called Dr. Giles's office to obtain results of Colonoscopy. However the test was not resulted and Dr. Giles is unavailable at this time. Patient will have to follow up with this an outpatient setting. Patient was given 2 more units of blood. H&H was followed and remained stable. Patient's hemoglobin increased to 7.9 after first dose of blood from the ER. Then increased to 9.3 after receiving 2 units of blood. Patient's hemoglobin on discharge is 9.8. Patient's dose of Coumadin was held first night of admission due to supratherapeutic INR. Subsequent INR was within therapeutic range and Coumadin was continued. Patient did not have any signs of bleeding. Patient was on her symptomatic and weak. Denied any lightheadedness. DISCHARGE MEDICATIONS: Please see below. ALLERGIES: Please see below. PHYSICAL EXAMINATION ON DISCHARGE: VITAL SIGNS: Please see below. GENERAL: Alert. Orientated. Comfortable sitting up in his chair. HEENT: Atraumatic. No rhinorrhea. Extraocular muscles intact. NECK: No enlarged lymph nodes or masses. No JVD. CARDIOVASCULAR EXAMINATION: Systolic murmur 3 out of 6. RESPIRATORY EXAMINATION: Clear to auscultation bilaterally. No wheezing or rhonchi. ABDOMINAL EXAMINATION: Soft and nontender. Bowel sounds to auscultation. EXTREMITIES: +1 lower extremity edema. SKIN: No new rashes or lesions. NEUROLOGICAL EXAMINATION: Speech intact. PSYCHIATRIC EXAMINATION: Normal affect. LABORATORY DATA: Please see below. IMAGING:Head CT impression 1. Small vessel ischemic disease. 2. Moderate volume loss. PROGNOSIS: Stable. ACTIVITY: As tolerated. DIET: 2 g sodium diet DISCHARGE PLAN: Home DISPOSITION: Home, Self-Care. DISCHARGE INSTRUCTIONS: 1. Patient is to have PT/INR and CBC checked in the next 2 weeks on Sunday and . Results sent to Dr. Jo. 2. Patient is to follow-up with Dr. Jo, primary care doctor. 3. Patient is to follow-up with Dr. Giles. To obtain results of capsule endoscopy. 4. Decreased patient's warfarin dose to 7.5 mg daily. Stopped patient's omeprazole 20 mg and started patient on omeprazole 40 mg twice a day. DISCHARGE CONDITION: Stable TIME SPENT ON DISCHARGE: Greater than 30 minutes. Vital Signs/I&Os Vital Signs Date Time Temp Pulse Resp B/P (MAP) Pulse Ox O2 Delivery O2 Flow Rate FiO2 12/22/16 08:46 70 146/65 12/22/16 08:00 Room Air 12/22/16 06:00 96.2 20 96 I&O- Last 24 Hours up to 6 AM 12/23/16 05:59 Intake Total 360 ml Output Total 0 ml Balance 360 ml Laboratory Data Labs 24H Laboratory Tests 2 12/23/16 11:39: Lab Scanned Report Transfusion Record Discharge Medications Scheduled Ascorbic Acid (Vitamin C) 1,000 Mg Tab, 1,000 MG PO DAILY, (Reported) Aspirin (Aspir-Low) 81 Mg Tab, 81 MG PO DAILY, (Reported) Atorvastatin Calcium (Atorvastatin Calcium) 20 Mg Tab, 20 MG PO QHS, (Reported) Bisoprolol Fumarate (Bisoprolol Fumarate) 5 Mg Tab, 5 MG PO QAM, (Reported) Ergocalciferol (Ergocalciferol) 50,000 Unit Cap, 50,000 UNIT PO QWEEK, (Reported ) FRIDAYS Ferrous Sulfate (Ferrous Sulfate) 325 Mg Tab, 325 MG PO BID, (Reported) Folic Acid (Folic Acid) 1 Mg Tab, 1 MG PO QPM, (Reported) Furosemide (Furosemide) 40 Mg Tab, 40 MG PO BID, (Reported) Losartan Potassium (Losartan Potassium) 25 Mg Tab, 25 MG PO QPM, (Reported) Multivitamins *[facility] STOCKED* (Thera M Plus *[facility] STOCKED*) 1 Tab Tab, 1 TAB PO DAILY, (Reported) Omeprazole (Omeprazole) 40 Mg Cap, 40 MG PO BID Polyethylene Glycol (Miralax) 1 Pow Pow, 17 GM PO DAILY, (Reported) Potassium Chloride (Potassium Chloride ER) 20 Meq Tab, 20 MEQ PO DAILY, ( Reported) Salmeterol/Fluticasone (Advair Diskus 250-50 Mcg/Dose) 14 Puff/Inhaler Aerp, 1 PUFF INH BID, (Reported) Spironolactone (Spironolactone) 25 Mg Tab, 25 MG PO DAILY, (Reported) Tiotropium Clawson Monohydrate (Spiriva Handihaler) 18 Mcg Cap, 18 MCG INH QPM, (Reported) Warfarin Sod (Coumadin) 7.5 Mg Tab, 7.5 MG PO DAILY Everyday Scheduled PRN Albuterol Sulfate (Proair Hfa) 108 Mcg/Act Aer, 2 PUFF INH QID PRN for SHORTNESS OF BREATH, (Reported) Nitroglycerin (Nitroglycerin) 0.4 Mg Sub, 0.4 MG SL Q5MP PRN for CHEST PAIN, ( Reported) Allergies Coded Allergies: No Known Drug Allergy (Unverified Allergy, Unknown, 07/24/12) GME ATTESTATION GME ATTESTATION My preceptor for this patient encounter was physically present in the building during the encounter and was fully available. As needed, all aspects of the patient interview, examination, medical decision making process, and medical care plan development were reviewed and approved by the preceptor. Preceptor is aware and concurs with the plan as stated in the body of this note and will attest to such by his/her cosignature. YOUSUF MCRAE DO Dec 23, 2016 20:13 MJ RICHARD MD Dec 25, 2016 15:18
== END 2016-12-22 10:55 | disposition home or self-care (01) ==
LOC: M ED 14:08 → M ED INP 17:11 → M MS5PR 19:40
PROVIDERS: ADMIT Hospitalist; ATTEND Internal Medicine
DX: D64.9 Anemia, unspecified (principal); R79.1 Abnormal coagulation profile; I50.32 Chronic diastolic (congestive) heart failure; K59.00 Constipation, unspecified; I48.91 Unspecified atrial fibrillation; Z95.2 Presence of prosthetic heart valve; I25.10 Atherosclerotic heart disease of native coronary artery without angina pectoris; K21.9 Gastro-esophageal reflux disease without esophagitis; I10 Essential (primary) hypertension; J44.9 Chronic obstructive pulmonary disease, unspecified; G47.33 Obstructive sleep apnea (adult) (pediatric); N18.9 Chronic kidney disease, unspecified; Z79.01 Long term (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 of anticoagulants; Z79.82 Long term (current) use of aspirin; Z79.899 Other long term (current) drug therapy; Z98.61 Coronary angioplasty status; Z87.891 Personal history of nicotine dependence
CPT/HCPCS: 36415; 36430; 70450; 80048; 82040; 82550; 82553; 83735; 84484; 85014; 85018; 85025; 85027; 85610; 86850; 86900; 86901; 86920; 93005; 93041; 94640; 94760; 96374; 97161; 99285; G0378; J1940; P9016

== ENCOUNTER → 2016-12-26 | Outpatient (CLI) | payer MEDICARE ==
[~2016-12-26] MED LIST changes: +ERGO500014 PO; +FLON1SPR; +FOLI1TAB4 PO; +LOSA25TA8 PO; +OMEP40CA2 PO; +OPTI0.5D5 OS; +PROAAER10 INH; +SPIR1AER INH; +VITA200028 PO
[2016-12-26 10:15] LABS: MEAN CORPUSCULAR HEMOGLOBIN 31.7 pg (27.0-33.0); MEAN CORPUSCULAR HGB CONC 33.1 g/dl (32.0-36.5); MEAN CORPUSCULAR VOLUME 95.8 fl (80.0-96.0); RED CELL DISTRIBUTION WIDTH 14.7 % (11.5-14.5); WHITE BLOOD COUNT 7.5 K/mm3 (4.0-10.0)
[2016-12-26 10:20] LABS: INR 2.78
== END ==
LOC: M LAB 08:37
PROVIDERS: ATTEND Internal Medicine
DX: D64.9 Anemia, unspecified (principal); Z79.01 Long term (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 of anticoagulants

== ENCOUNTER → 2016-12-28 | Outpatient (CLI) | payer MEDICARE ==
[2016-12-28 08:20] LABS: MEAN CORPUSCULAR HEMOGLOBIN 31.2 pg (27.0-33.0); MEAN CORPUSCULAR VOLUME 97.5 fl (80.0-96.0); RED CELL DISTRIBUTION WIDTH 14.8 % (11.5-14.5); WHITE BLOOD COUNT 7.7 K/mm3 (4.0-10.0)
[2016-12-28 08:26] LABS: INR 3.15
== END ==
LOC: M LAB 07:54
PROVIDERS: ATTEND Internal Medicine
DX: D64.9 Anemia, unspecified (principal); Z79.01 Long term (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 of anticoagulants

== ENCOUNTER → 2017-01-01 | Outpatient (CLI) | payer MEDICARE ==
[2017-01-01 10:38] LABS: MEAN CORPUSCULAR HEMOGLOBIN 31.5 pg (27.0-33.0); MEAN CORPUSCULAR HGB CONC 32.4 g/dl (32.0-36.5); MEAN CORPUSCULAR VOLUME 97.1 fl (80.0-96.0); RED CELL DISTRIBUTION WIDTH 14.9 % (11.5-14.5)
[2017-01-01 10:45] LABS: INR 3.28
== END ==
LOC: M LAB 09:15
PROVIDERS: ATTEND Internal Medicine
DX: D64.9 Anemia, unspecified (principal); Z95.2 Presence of prosthetic heart valve

== ENCOUNTER 2017-01-04 16:56 | Observation (INO) | payer MEDICARE ==
[~2017-01-04] VITALS: Ht 182.9 cm; Wt 129.7 kg
[~2017-01-04 16:56] MED LIST changes: -FLON1SPR; -OPTI0.5D5 OS; -SPIR1AER INH
[2017-01-04 17:52] LABS: BASO % 0.7 % (0.0-1.0); EOS # 0.2 K/mm3 (0.0-0.50); EOS % 2.9 % (0.0-3.0); LARGE UNSTAINED CELL # 0.1 K/mm3 (0.0-0.4); LARGE UNSTAINED CELL % 1.2 % (0.0-4.0); LYMPH # 0.6 K/mm3 (1.5-4.5); LYMPH % 8.2 % (24.0-44.0); MEAN CORPUSCULAR HEMOGLOBIN 31.1 pg (27.0-33.0); MEAN CORPUSCULAR VOLUME 97.2 fl (80.0-96.0); MONO # 0.6 K/mm3 (0.0-0.8); MONO % 8.7 % (0.0-5.0); NEUTROPHILS # 5.5 K/mm3 (1.8-7.7); NEUTROPHILS % 78.3 % (36.0-66.0); PLATELET COUNT, AUTOMATED 225 k/mm3 (150-450); RED CELL DISTRIBUTION WIDTH 15.4 % (11.5-14.5)
[2017-01-04 17:57] LABS: INR 2.74
[2017-01-04 18:14] LABS: CALCIUM LEVEL 7.4 MG/DL (8.8-10.2); CREATININE FOR GFR 1.45 MG/DL (0.70-1.30); GLOMERULAR FILTRATION RATE 50.5 (>42); POTASSIUM SERUM 4.4 MEQ/L (3.5-5.1)
[2017-01-04] MEDS ORDERED: ACETAMINOPHEN TAB 650MG DOSE (2X325MG) PO PRN (20:00)
[2017-01-04] MEDS ORDERED: COUM7.5T PO (20:03)
[2017-01-04] MEDS ORDERED: OPTI0.5D5 OS (20:03)
[2017-01-04] MEDS ORDERED: FLON1SPR (20:03)
[2017-01-04] MEDS ORDERED: SPIR1AER INH (20:03)
[2017-01-04] MEDS ORDERED: OMEP40CA2 PO (20:03)
[2017-01-04] MEDS ORDERED: ALBUTEROL 90 MCG/ACT 8GM HFA INHALER INH PRN (20:15)
--- NOTE | 2017-01-04 20:46 | HPEPDOC ---
General Date of Admission Jan 04, 2017 at 19:59 Attending Physician: RAISSA MITCHELL DO Chief Complaint The patient is a 76-year-old male admitted with a reason for visit of Anemia. History of Present Illness PCP: Tiago Jo MD Patient is a 76 yo male with past medical history significant for anemia, mechanical aortic valve, HTN, COPD, CAD, GERD, and BLANE presents to the ER with anemia. Patient was recently admitted to [facility] for symptomatic anemia and was discharged 2 weeks ago. Patient was discharged to home with the plan of checking CBC and INR twice a week for 2 weeks with results sent to primary care doctor and director of research center respectively. Today he had CBC done and hgb was 8.5, which is down from 9.8 on discharge 12/22/16. Was sent over to emergency room by his PCP. Patient denies any symptoms. Before last admission patient had episode where he was getting in his car and became tired and weak. Nothing like that since discharge. Has some SOB but explains that this is chronic. Has not changed since discharge. Had some cough but explains he always has this and has not changed. He has had work up for GI bleed done by Dr. Giles. Patient has had a colonoscopy and EGD which had negative results. He also had a capsule endoscopy which were not conclusive for a bleed. Patient explains that it did not show active bleeding but some dark spots. Was told they could be old blood or from iron supplements. Has a scan scheduled for next 01/11/17 at [facility] for further workup to find the source of bleeding. Today patient denies any bleeding. No blood in his stool or dark tarry stools. Last bowel movement was this afternoon, regular for him. Color was dark brown. Has BM every 3 days or so. No lightheadedness, dizziness, weakness, chest pain, abdominal pain, nausea, vomiting, bloating, reflux. No new medications since discharge. Home Medications Scheduled (Spiriva Respimat) 1.25 Mcg/Act Aer, 1.25 MCG INH DAILY, (Reported) Ascorbic Acid (Vitamin C) 1,000 Mg Tab, 1,000 MG PO DAILY, (Reported) Aspirin (Aspir-Low) 81 Mg Tab, 81 MG PO DAILY, (Reported) Atorvastatin Calcium (Atorvastatin Calcium) 20 Mg Tab, 20 MG PO QHS, (Reported) Bisoprolol Fumarate (Bisoprolol Fumarate) 5 Mg Tab, 5 MG PO QAM, (Reported) Ergocalciferol (Ergocalciferol) 50,000 Unit Cap, 50,000 UNIT PO ASDIRECTED, ( Reported) SUNDAY AT DINNERTIME Ferrous Sulfate (Ferrous Sulfate) 325 Mg Tab, 325 MG PO BID, (Reported) Folic Acid (Folic Acid) 1 Mg Tab, 1 MG PO QPM, (Reported) Furosemide (Furosemide) 40 Mg Tab, 40 MG PO BID, (Reported) Losartan Potassium (Losartan Potassium) 25 Mg Tab, 25 MG PO QPM, (Reported) Multivitamins *[facility] STOCKED* (Thera M Plus *[facility] STOCKED*) 1 Tab Tab, 1 TAB PO DAILY, (Reported) Omeprazole (Omeprazole) 40 Mg Cap, 40 MG PO BID, (Reported) Polyethylene Glycol (Miralax) 1 Pow Pow, 17 GM PO DAILY, (Reported) Potassium Chloride (Potassium Chloride ER) 20 Meq Tab, 20 MEQ PO DAILY, ( Reported) Salmeterol/Fluticasone (Advair Diskus 250-50 Mcg/Dose) 14 Puff/Inhaler Aerp, 1 PUFF INH BID, (Reported) Spironolactone (Spironolactone) 25 Mg Tab, 25 MG PO DAILY, (Reported) Warfarin Sod (Coumadin) 7.5 Mg Tab, 7.5 MG PO QPM, (Reported) Scheduled PRN (Refresh Optive 0.5-0.9 %) 1 Aramis Aramis, 1 DROP OS DAILY PRN for DRY EYES, ( Reported) (Flonase Allergy Relief) 50 Mcg/Act Spr, 100 MCG NA DAILY PRN for NASAL CONGESTION, (Reported) Albuterol Sulfate (Proair Hfa) 108 Mcg/Act Aer, 2 PUFF INH QID PRN for SHORTNESS OF BREATH, (Reported) Nitroglycerin (Nitroglycerin) 0.4 Mg Sub, 0.4 MG SL NITRO PRN for CHEST PAIN, ( Reported) Allergies Coded Allergies: No Known Drug Allergy (Unverified Allergy, Unknown, 01/04/17) Past Medical History Medical History Anemia Mechanical heart valve, 2000 CAD, 1 stent placed CHF, echo 06/06. LVEF 60% HTN COPD GERD BLANE- does not wear CPAP Surgical History Cardiac stents x1 Heart valves, aortic Tonsillectomy, adenoidectomy Cataracts, bilaterally Social History Former smoker, quit 17 years ago, smoked 1 ppd for 50 years. Drinks etoh occasionally, at most 1 beer a week, 6 beers a month. No illegal or illicit drugs. No sick contacts. No recent travel. 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 Lives at home with . Review of Symptoms Other systems Gen: no fevers, chills, fatigue, malaise. HEENT: no headache, trauma. eye: No vision changes, blurry, double vision. ears: No hearing changes. Throat: no difficulty or painful swallowing. Chest: no chest pain or palpitations. Respiratory: Chronic SOB, cough. No change since last admission. Abdomen: No pain, N/v, diarrhea, constipation. Last BM today. : no dysuria, frequency. Extremity: No focal weakness. Neuro: No numbness or weakness. MSK: Some low back pain, chronic for a few months. No change. Skin: No new rashes or lesions. Physical Examination General Exam: Positive: Alert, Cooperative, No Acute Distress Eye Exam: Positive: PERRLA, Conjunctiva & lids normal, EOMI, Negative: Sclera icteric ENT Exam: Positive: Atraumatic Neck Exam: Positive: Supple, Negative: thyromegaly Chest Exam: Positive: Clear to auscultation, Negative: Rhonchi, Wheezing Heart Exam: Positive: Rate Normal, Murmurs (Systolic murmur 3/6 ) Abdomen Exam: Positive: Normal bowel sounds, Soft, Negative: Tenderness, Hepatospenomegaly Extremity Exam: Positive: Edema (Lower extremity edema +2, up to the knees bilaterally. ), Negative: Clubbing, Cyanosis Skin Exam: Positive: Nl turgor and temperature, Negative: Rash, Breakdown Neuro Exam: Positive: Normal Gait, Normal Speech Psych Exam: Positive: Mental status NL Vital Signs Vital Signs Date Time Temp Pulse Resp B/P (MAP) Pulse Ox O2 Delivery O2 Flow Rate FiO2 01/04/17 17:44 74 119/57 (77) 70 110/53 (72) 74 111/51 (71) 01/04/17 16:57 98.1 18 94 Room Air Laboratory Data Labs 24H Laboratory Tests 2 01/04/17 17:27: White Blood Count 7.0, Red Blood Count 2.74L, Hemoglobin 8.5L, Hematocrit 26.6L , Mean Corpuscular Volume 97.2H, Mean Corpuscular Hemoglobin 31.1, Mean Corpuscular Hemoglobin Concent 32.0, Red Cell Distribution Width 15.4H, Platelet Count 225, Neutrophils (%) (Auto) 78.3H, Lymphocytes (%) (Auto) 8.2L, Monocytes (%) (Auto) 8.7H, Eosinophils (%) (Auto) 2.9, Basophils (%) (Auto) 0.7 , Neutrophils # (Auto) 5.5, Lymphocytes # (Auto) 0.6L, Monocytes # (Auto) 0.6, Eosinophils # (Auto) 0.2, Basophils # (Auto) 0.0, Large Unclassified Cells % 1.2 , Large Unclassified Cells # 0.1, Prothrombin Time 30.2H, Prothromb Time International Ratio 2.74, Anion Gap 10, Glomerular Filtration Rate 50.5, Blood Urea Nitrogen 31H, Creatinine 1.45H, Sodium Level 144, Potassium Level 4.4, Chloride Level 108H, Carbon Dioxide Level 26, Calcium Level 7.4L CBC/BMP Laboratory Tests 01/04/17 17:27 Red Blood Count 2.74 L, Mean Corpuscular Volume 97.2 H, Mean Corpuscular Hemoglobin 31.1, Mean Corpuscular Hemoglobin Concent 32.0, Red Cell Distribution Width 15.4 H, Neutrophils (%) (Auto) 78.3 H, Lymphocytes (%) (Auto ) 8.2 L, Monocytes (%) (Auto) 8.7 H, Eosinophils (%) (Auto) 2.9, Basophils (%) ( Auto) 0.7, Neutrophils # (Auto) 5.5, Lymphocytes # (Auto) 0.6 L, Monocytes # ( Auto) 0.6, Eosinophils # (Auto) 0.2, Basophils # (Auto) 0.0, Calcium Level 7.4 L Assessment/Plan Acute on chronic anemia Patient has decreased hgb since discharge 2 weeks ago. Continued to drop. Hgb today 8.5 vs 9.8 on discharge. No signs of active bleeding. Patient is not symptomatic, no lightheadedness, dizziness. No episodes of feeling weak like previous admission. Not orthostatic in the ED. Patient consented for blood. Giving 2 units of packed red blood cells. Monitor patient's fluid status, I+O. Monitor patient's H+H every 6 hours. Stool occult blood ordered. Results of capsule endoscopy were inconclusive. Patient has scheduled scan outpatient next . Continue patient's omeprazole 40 mg BID. Was increased at last admission. Ordering iron studies, folate and B12. Patient is on ferrous sulfate. Continue while in hospital. Aortic, mechanical heart valve Patient had this placed in 1999. Is on Coumadin for anticoagulation. INR goal 2.5-3.5. Patient is therapeutic today. Takes 7.5 mg Warfarin daily. Monitor PT/INR. HTN Monitor patient's BP. Continue home medications Bisoprolol, Furosemide, Spironolactone, Lorsartan 25 mg . CHF Last echo 06/06. LVEF 60% Continue home medications Furosemide 40 mg BID, Spironolactone 25 mg daily. Monitor patient's I+O. Lower extremity edema, 2+ to knees bilaterally. COPD Continue Advair. Does not wear oxygen at home. History of CAD Patient has sublingual nitroglycerin at home, has not used recently. History of 1 stent. On Aspirin 81 mg. BLANE Patient does not wear CPAP. Too claustrophobic. GERD Continue patient's omeprazole 40 mg BID. Plan / VTE VTE Prophylaxis Ordered?: Yes (Home warfarin dose, 7.5 mg daily ) Plan Plan Admitted to med/surg for observation. Will be followed by Dr. Akbar 01/05/17. Disposition 2 gm sodium diet. GME ATTESTATION GME ATTESTATION My preceptor for this patient encounter was physically present in the building during the encounter and was fully available. As needed, all aspects of the patient interview, examination, medical decision making process, and medical care plan development were reviewed and approved by the preceptor. Preceptor is aware and concurs with the plan as stated in the body of this note and will attest to such by his/her cosignature. YOUSUF MCRAE DO Jan 04, 2017 20:24
[2017-01-04 20:50] VITALS: BP 145/69
[2017-01-04] MEDS ORDERED: LOSARTAN 25 MG TAB PO SCH (21:00)
[2017-01-04] MEDS ORDERED: ATORVASTATIN 20 MG TAB PO SCH (21:00)
[2017-01-04] MEDS: FERROUS SULFATE 325MG TAB PO SCH (22:00)
[2017-01-04] MEDS: OMEPRAZOLE 20 MG CAP PO SCH (22:00)
[2017-01-04 23:45] LABS: REASON FOR REVIEW COMPREHENSIVE REVIEW
[2017-01-05 00:09] LABS: PERCENT SATURATION 33.1 % (19.7-50.0)
[2017-01-05] MEDS: ADVAIR HFA 115/21MCG INHALER INH SCH ×2 (02:28→07:55)
[2017-01-05 06:00] VITALS: BP 144/66
[2017-01-05 07:05] LABS: BASO # 0.1 K/mm3 (0.0-0.2); BASO % 0.8 % (0.0-1.0); EOS # 0.2 K/mm3 (0.0-0.50); EOS % 2.8 % (0.0-3.0); LARGE UNSTAINED CELL # 0.1 K/mm3 (0.0-0.4); LARGE UNSTAINED CELL % 1.4 % (0.0-4.0); LYMPH # 0.6 K/mm3 (1.5-4.5); LYMPH % 8.9 % (24.0-44.0); MEAN CORPUSCULAR HGB CONC 33.3 g/dl (32.0-36.5); MEAN CORPUSCULAR VOLUME 95.9 fl (80.0-96.0); MONO # 0.6 K/mm3 (0.0-0.8); MONO % 8.3 % (0.0-5.0); NEUTROPHILS # 5.6 K/mm3 (1.8-7.7); NEUTROPHILS % 77.7 % (36.0-66.0); PLATELET COUNT, AUTOMATED 249 k/mm3 (150-450); RED CELL DISTRIBUTION WIDTH 15.7 % (11.5-14.5); WHITE BLOOD COUNT 7.2 K/mm3 (4.0-10.0)
[2017-01-05 07:08] LABS: INR 2.78
[2017-01-05 07:25] LABS: CALCIUM LEVEL 8.4 MG/DL (8.8-10.2); CREATININE FOR GFR 1.37 MG/DL (0.70-1.30); GLOMERULAR FILTRATION RATE 53.9 (>42); MAGNESIUM LEVEL 2.6 MG/DL (1.8-2.4)
[2017-01-05] MEDS ORDERED: BISOPROLOL FUMARATE 5 MG TAB PO SCH (09:00)
[2017-01-05] MEDS ORDERED: MULTIVITAMINS/MINERALS THERAP 1 TAB PO SCH (09:00)
[2017-01-05] MEDS ORDERED: ASPIRIN 81 MG ENTERIC TAB PO SCH (09:00)
[2017-01-05] MEDS ORDERED: FUROSEMIDE 40 MG TAB PO SCH (09:00)
[2017-01-05] MEDS ORDERED: ASCORBIC ACID 500 MG TAB PO SCH (09:00)
[2017-01-05] MEDS ORDERED: SPIRONOLACTONE 25 MG TAB PO SCH (09:00)
[2017-01-05] MEDS ORDERED: POTASSIUM CHLORIDE 10 MEQ SR TABLET PO SCH (09:00)
[2017-01-05 09:55] VITALS: BP 144/66
[2017-01-05] MEDS: FERROUS SULFATE 325MG TAB PO SCH (09:55)
[2017-01-05] MEDS: OMEPRAZOLE 20 MG CAP PO SCH (09:56)
[2017-01-05 12:47] LABS: FOLATE > 24.0 NG/ML (>5.4); VITAMIN B12 LEVEL 356 PG/ML (247-911)
--- NOTE | 2017-01-05 15:54 | DSES ---
DATE OF ADMISSION: 01/04/2017 DATE OF DISCHARGE: 01/05/2017 ATTENDING PHYSICIAN: Arlene Akbar MD PRIMARY CARE PROVIDER: Tiago Jo MD REFERRING PHYSICIAN: Tiago Jo MD CONSULTING PHYSICIANS: None. CONDITION ON DISCHARGE: Stable. FINAL DIAGNOSES: Acute on chronic anemia. PROCEDURES: None. HISTORY OF PRESENT ILLNESS: The patient is a 76-year-old male with a past medical history significant for anemia, mechanical aortic valve, hypertension, chronic obstructive pulmonary disease (COPD), coronary artery disease, obstructive sleep apnea and gastroesophageal reflux disease (GERD) who presented to the ER after he was found to have a low hemoglobin on CBC. The patient was discharged two weeks ago and was discharged with a hemoglobin of 9.8. On followup as an outpatient his hemoglobin was 8.5. The patient was subsequently sent to the emergency room for evaluation by his primary care provider. The patient denied any symptoms with negative orthostatic. The patient had previously received a workup by Dr. Giles where he had a colonoscopy and EGD, which did not reveal any significant source of his bleeding. The patient also had a capsular endoscopy which was also inconclusive for bleeding. The patient is scheduled to have a bleeding scan completed on , January 11, 2017 at [facility]. HOSPITAL COURSE: 1. Acute on chronic anemia. Presented with a hemoglobin of 8.5, down from his hemoglobin on discharge which was 9.8, symptomatically. The patient was asymptomatic. Denied any lightheadedness, dizziness, episodes of weakness or fatigue. Physical was nonrevealing. He had negative orthostatics in the emergency room. The patient received 2 units of packed red blood cells. His hemoglobin responded appropriately and has remained stable. The patient was advised to continue with his home medications, omeprazole 40 twice a day and to followup with his scheduled bleeding scan to be performed next . 2. 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 INR goal of 2.5 to 3.5. Has remained within therapeutic range. Continue with warfarin. 3. Hypertension. The patient's blood pressure remains well controlled. Will continue with home blood pressure medications, bisoprolol and furosemide, spironolactone and losartan. 4. Congestive heart failure (CHF). Previous echocardiogram completed in May 2013, which revealed an ejection fraction of 60%. The patient was continued with his home dose medication of furosemide, spironolactone. 5. Chronic obstructive pulmonary disease. No evidence of acute exacerbation. Continue with inhaled therapy from home. 6. History of coronary artery disease. Continue with home medications including aspirin. 7. Obstructive sleep apnea. The patient does not wear CPAP given claustrophobia. 8. Gastroesophageal reflux disease (GERD). Continue with patient's omeprazole. 9. Deep venous thrombosis (DVT) prophylaxis. (Sequential compression devices as well as on full anticoagulation with warfarin). DISCHARGE MEDICATIONS: The patient has been discharged home on the following medications: - albuterol 2 puffs inhaled four times a day as needed shortness of breath - ascorbic acid 1000 mg by mouth daily - aspirin 81 mg by mouth daily - atorvastatin 200 mg by mouth at bedtime - bisoprolol 5 mg by mouth every a.m. - ergocalciferol 50,000 units by mouth as directed - ferrous sulfate 325 mg by mouth twice a day - Flonase allergy relief 100 mcg in each nostril daily - folic acid 1 mg by mouth every p.m. - furosemide 40 mg by mouth twice a day - losartan 25 mg by mouth every p.m. - multivitamins one tablet by mouth daily - nitroglycerin 0.4 mg sublingual to be taken as needed chest pain - omeprazole 40 mg by mouth twice a day - MiraLAX 17 grams by mouth daily - potassium chloride 20 mEq by mouth daily - Refresh Optive one drop in each eye daily as needed dry eyes - Advair Diskus 250/50 mcg dose, one puff inhaled twice a day - Spiriva 1.25 mcg inhaled daily - spironolactone 25 mg by mouth daily - warfarin 7.5 mg by mouth every p.m. DISCHARGE INSTRUCTIONS: The patient has been advised to followup with his primary care provider and the bleeding scan within the next 7 days. He has been advised to remain compliant with the treatment plan and medications and to return to the emergency room if he experiences any problems. Time spent on discharge: Greater than 35 minutes.
[2017-01-05] MEDS ORDERED: WARFARIN SOD 7.5 MG TAB PO SCH (17:00)
[2017-01-05] MEDS ORDERED: VITAMIN D 50,000 UNITS CAPSULE (ERGOCALCIFEROL 1.25MG) PO SCH (18:00)
[2017-01-05] MEDS ORDERED: FOLIC ACID 1 MG TAB PO SCH (21:00)
== END 2017-01-05 12:28 | disposition home or self-care (01) ==
LOC: M ED 16:56 → M ED INP 19:59 → M MSPAV 20:53
PROVIDERS: ADMIT Internal Medicine; ATTEND Internal Medicine
DX: D64.9 Anemia, unspecified (principal); Z95.2 Presence of prosthetic heart valve; Z79.01 Long term (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 of anticoagulants; D53.9 Nutritional anemia, unspecified; I10 Essential (primary) hypertension; J44.9 Chronic obstructive pulmonary disease, unspecified; Z79.82 Long term (current) use of aspirin; Z79.899 Other long term (current) drug therapy; K21.9 Gastro-esophageal reflux disease without esophagitis
CPT/HCPCS: 36415; 36430; 80048; 82607; 82728; 82746; 83550; 83735; 85014; 85018; 85025; 85027; 85610; 86850; 86900; 86901; 86920; 94640; 99284; G0378; P9016

== ENCOUNTER → 2017-01-04 | Outpatient (CLI) | payer MEDICARE ==
[2017-01-04 09:51] LABS: MEAN CORPUSCULAR HGB CONC 33.1 g/dl (32.0-36.5); MEAN CORPUSCULAR VOLUME 96.8 fl (80.0-96.0); RED CELL DISTRIBUTION WIDTH 15.2 % (11.5-14.5); WHITE BLOOD COUNT 6.4 K/mm3 (4.0-10.0)
[2017-01-04 10:00] LABS: INR 2.81
== END ==
LOC: M LAB 08:50
PROVIDERS: ATTEND Internal Medicine
DX: Z51.81 Encounter for therapeutic drug level monitoring (principal); Z79.01 Long term (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 of anticoagulants; D64.9 Anemia, unspecified; Z95.2 Presence of prosthetic heart valve

== ENCOUNTER → 2017-01-08 | Outpatient (CLI) | payer MEDICARE ==
[~2017-01-08] MED LIST changes: +FLON1SPR; +OPTI0.5D5 OS; +SPIR1AER INH
[2017-01-08 14:17] LABS: INR 2.85
== END ==
LOC: M LAB 13:22
PROVIDERS: ATTEND Physician Assistant
DX: I48.91 Unspecified atrial fibrillation (principal)

== ENCOUNTER → 2017-01-15 | Outpatient (CLI) | payer MEDICARE ==
[2017-01-15 10:10] LABS: INR 2.58
== END ==
LOC: M LAB 09:10
PROVIDERS: ATTEND Nurse Practitioner Family
DX: I48.91 Unspecified atrial fibrillation (principal)

== ENCOUNTER → 2017-02-06 | Outpatient (CLI) | payer MEDICARE ==
[2017-02-06 11:35] LABS: INR 3.32
== END ==
LOC: M LAB 10:31
PROVIDERS: ATTEND Nurse Practitioner Family
DX: I48.91 Unspecified atrial fibrillation (principal)

== ENCOUNTER → 2017-03-01 | Outpatient (CLI) | payer MEDICARE ==
[2017-03-01 12:01] LABS: INR 2.27
== END ==
LOC: M LAB 11:03
PROVIDERS: ATTEND Nurse Practitioner Family
DX: Z51.81 Encounter for therapeutic drug level monitoring (principal); Z79.01 Long term (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 of anticoagulants; I48.91 Unspecified atrial fibrillation

== ENCOUNTER → 2017-03-12 | Outpatient (CLI) | payer MEDICARE ==
[2017-03-12 10:37] LABS: INR 3.15
== END ==
LOC: M LAB 09:50
PROVIDERS: ATTEND Physician Assistant
DX: I48.91 Unspecified atrial fibrillation (principal); Z51.81 Encounter for therapeutic drug level monitoring; Z79.01 Long term (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 of anticoagulants

== ENCOUNTER → 2017-03-12 | Outpatient (CLI) | payer MEDICARE ==
[2017-03-12 10:20] LABS: MEAN CORPUSCULAR HEMOGLOBIN 31.2 pg (27.0-33.0); MEAN CORPUSCULAR HGB CONC 31.9 g/dl (32.0-36.5); MEAN CORPUSCULAR VOLUME 97.7 fl (80.0-96.0); PLATELET COUNT, AUTOMATED 197 10^3/uL (150-450); RED CELL DISTRIBUTION WIDTH 13.3 % (11.5-14.5); WHITE BLOOD COUNT 6.4 10^3/uL (4.0-10.0)
[2017-03-12 10:56] LABS: ALBUMIN 3.5 GM/DL (3.2-5.2); ALBUMIN/GLOBULIN RATIO 1.09 (1.00-1.93); BILIRUBIN,TOTAL 0.3 MG/DL (0.2-1.0); CALCIUM LEVEL 8.5 MG/DL (8.8-10.2); CREATININE FOR GFR 1.52 MG/DL (0.70-1.30); GLOMERULAR FILTRATION RATE 47.8 (>42); POTASSIUM SERUM 4.2 MEQ/L (3.5-5.1); TOTAL PROTEIN 6.7 GM/DL (6.4-8.2)
== END ==
LOC: M LAB 09:53
PROVIDERS: ATTEND Internal Medicine
DX: D64.9 Anemia, unspecified (principal); R73.01 Impaired fasting glucose; E78.5 Hyperlipidemia, unspecified; I48.91 Unspecified atrial fibrillation; Z51.81 Encounter for therapeutic drug level monitoring; Z79.01 Long term (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 of anticoagulants

== ENCOUNTER → 2017-03-13 | Outpatient (REF) | payer MEDICARE ==
[2017-03-13 14:21] LABS: REASON FOR REVIEW COMPREHENSIVE REVIEW
[2017-03-13 14:42] LABS: FERRITIN 38 NG/ML (26-388); PERCENT SATURATION 39.8 % (19.7-50.0); TOTAL IRON BINDING CAPACITY 349 UG/DL (250-450); TOTAL PROTEIN 6.9 GM/DL (6.4-8.2)
[2017-03-14 14:06] LABS: ALBUMIN 3.73 GM/DL (3.29-5.55); GAMMA GLOBULIN % 17.5 % (11.1-18.8)
== END ==
LOC: M LAB REF 13:39
PROVIDERS: ATTEND Internal Medicine Medical Oncology
DX: D64.9 Anemia, unspecified (principal)

== ENCOUNTER → 2017-04-03 | Outpatient (CLI) | payer MEDICARE ==
[2017-04-03 10:10] LABS: INR 2.93
== END ==
LOC: M LAB 09:12
PROVIDERS: ATTEND Physician Assistant
DX: Z51.81 Encounter for therapeutic drug level monitoring (principal); Z79.01 Long term (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 of anticoagulants; I48.91 Unspecified atrial fibrillation

== ENCOUNTER → 2017-04-19 | Outpatient (CLI) | payer MEDICARE ==
[2017-04-19 13:36] LABS: INR 3.53
== END ==
LOC: M LAB 12:00
DX: I48.2 Chronic atrial fibrillation (principal)
CPT/HCPCS: 85610

== ENCOUNTER → 2017-05-09 | Outpatient (CLI) | payer MEDICARE ==
[2017-05-09 09:44] LABS: INR 2.77; PROTHROMBIN TIME 30.5 SECONDS (12.4-14.5)
== END ==
LOC: M LAB 09:09
DX: I48.91 Unspecified atrial fibrillation (principal)
CPT/HCPCS: 85610

== ENCOUNTER → 2017-05-21 | Outpatient (CLI) | payer MEDICARE ==
[2017-05-21 11:03] LABS: INR 2.43; PROTHROMBIN TIME 27.4 SECONDS (12.4-14.5)
== END ==
LOC: M LAB 10:12
DX: I48.91 Unspecified atrial fibrillation (principal)
CPT/HCPCS: 85610

== ENCOUNTER → 2017-06-07 | Outpatient (CLI) | payer MEDICARE ==
[2017-06-07 09:35] LABS: INR 3.99
== END ==
LOC: M LAB 08:15
DX: I48.91 Unspecified atrial fibrillation (principal)
CPT/HCPCS: 85610

== ENCOUNTER → 2017-06-12 | Outpatient (CLI) | payer MEDICARE ==
[2017-06-12 09:34] LABS: INR 2.74; PROTHROMBIN TIME 30.2 SECONDS (12.4-14.5)
== END ==
LOC: M LAB 08:58
DX: I48.91 Unspecified atrial fibrillation (principal); Z79.01 Long term (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 of anticoagulants
CPT/HCPCS: 85610

== ENCOUNTER → 2017-06-19 | Outpatient (CLI) | payer MEDICARE ==
[2017-06-19 07:15] LABS: INR 2.79; PROTHROMBIN TIME 30.6 SECONDS (12.4-14.5)
== END ==
LOC: M LAB 06:50
DX: I48.91 Unspecified atrial fibrillation (principal)
CPT/HCPCS: 85610

== ENCOUNTER → 2017-07-02 | Outpatient (REF) | payer MEDICARE ==
[2017-07-04 08:06] LABS: ERYTHROPOIETIN 22.7 mIU/mL (2.6-18.5)
== END ==
LOC: M LAB REF 17:23
DX: D50.9 Iron deficiency anemia, unspecified (principal)
CPT/HCPCS: 82668

== ENCOUNTER → 2017-07-17 | Outpatient (CLI) | payer MEDICARE ==
[2017-07-17 10:56] LABS: INR 3.84; PROTHROMBIN TIME 39.7 SECONDS (12.4-14.5)
== END ==
LOC: M LAB 10:21
DX: I48.91 Unspecified atrial fibrillation (principal)
CPT/HCPCS: 85610

== ENCOUNTER → 2017-08-28 | Outpatient (CLI) | payer MEDICARE ==
[2017-08-28 10:22] LABS: INR 3.07; PROTHROMBIN TIME 33.1 SECONDS (12.4-14.5)
== END ==
LOC: M LAB 09:26
DX: I48.91 Unspecified atrial fibrillation (principal)
CPT/HCPCS: 85610

== ENCOUNTER → 2017-09-12 | Outpatient (CLI) | payer MEDICARE ==
[2017-09-12 08:58] LABS: INR 3.31; PROTHROMBIN TIME 35.2 SECONDS (12.4-14.5)
== END ==
LOC: M LAB 08:16
DX: I48.91 Unspecified atrial fibrillation (principal)
CPT/HCPCS: 85610

== ENCOUNTER → 2017-10-10 | Outpatient (CLI) | payer MEDICARE ==
[2017-10-10 09:19] LABS: INR 2.41; PROTHROMBIN TIME 27.2 SECONDS (12.4-14.5)
== END ==
LOC: M LAB 08:26
DX: I48.91 Unspecified atrial fibrillation (principal)
CPT/HCPCS: 85610

== ENCOUNTER → 2017-10-31 | Outpatient (REF) | payer MEDICARE ==
[2017-11-02 08:55] LABS: ERYTHROPOIETIN 50.8 mIU/mL (2.6-18.5)
== END ==
LOC: M LAB REF 17:46
DX: D46.4 Refractory anemia, unspecified (principal)
CPT/HCPCS: 82668

== ENCOUNTER → 2017-11-07 | Outpatient (CLI) | payer MEDICARE ==
[2017-11-07 09:40] LABS: INR 3.56; PROTHROMBIN TIME 36.4 SECONDS (12.1-14.4)
== END ==
LOC: M LAB 09:11
DX: I48.91 Unspecified atrial fibrillation (principal)
CPT/HCPCS: 85610

== ENCOUNTER → 2017-11-21 | Outpatient (CLI) | payer MEDICARE ==
[2017-11-21 11:37] LABS: INR 2.93; PROTHROMBIN TIME 31.2 SECONDS (12.1-14.4)
== END ==
LOC: M LAB 11:02
DX: Z51.81 Encounter for therapeutic drug level monitoring (principal); Z79.02 Long term (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 of antithrombotics/antiplatelets; I48.91 Unspecified atrial fibrillation
CPT/HCPCS: 85610

== ENCOUNTER → 2017-12-25 | Outpatient (CLI) | payer MEDICARE ==
[2017-12-25 10:55] LABS: INR 2.57; PROTHROMBIN TIME 28.1 SECONDS (12.1-14.4)
== END ==
LOC: M LAB 09:41
DX: I48.91 Unspecified atrial fibrillation (principal)
CPT/HCPCS: 85610

== ENCOUNTER → 2018-01-10 | Outpatient (CLI) | payer MEDICARE ==
[2018-01-10 10:42] LABS: INR 2.75; PROTHROMBIN TIME 29.7 SECONDS (12.1-14.4)
== END ==
LOC: M LAB 09:48
DX: I48.91 Unspecified atrial fibrillation (principal)
CPT/HCPCS: 85610

== ENCOUNTER → 2018-01-17 | Outpatient (CLI) | payer MEDICARE ==
[2018-01-17 11:26] LABS: PROTHROMBIN TIME 28.4 SECONDS (12.1-14.4)
== END ==
LOC: M LAB 10:11
DX: Z51.81 Encounter for therapeutic drug level monitoring (principal); Z79.01 Long term (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 of anticoagulants; I48.91 Unspecified atrial fibrillation
CPT/HCPCS: 36415

== ENCOUNTER 2018-02-10 15:47 | Inpatient (IN) | payer MEDICARE ==
[2018-02-10 17:12] LABS: BASO # 0.1 10^3/uL (0.0-0.2); BASO % 0.5 % (0.0-1.0); EOS # 0.1 10^3/uL (0.0-0.50); EOS % 0.5 % (0.0-3.0); HEMATOCRIT 25.3 % (42.0-52.0); HEMOGLOBIN 8.2 g/dl (13.5-17.5); IMMATURE GRANULOCYTE % 1.4 % (0-3.0); LYMPH # 0.7 10^3/uL (1.5-4.5); LYMPH % 6.3 % (24.0-44.0); MEAN CORPUSCULAR HEMOGLOBIN 32.3 pg (27.0-33.0); MEAN CORPUSCULAR HGB CONC 32.4 g/dl (32.0-36.5); MEAN CORPUSCULAR VOLUME 99.6 fl (80.0-96.0); MONO # 1.4 10^3/uL (0.0-0.8); MONO % 11.9 % (0.0-5.0); NEUTROPHILS # 9.4 10^3/uL (1.8-7.7); NEUTROPHILS % 79.4 % (36.0-66.0); PLATELET COUNT, AUTOMATED 225 10^3/uL (150-450); RED BLOOD COUNT 2.54 10^6/uL (4.30-6.10); RED CELL DISTRIBUTION WIDTH 16.2 % (11.5-14.5); WHITE BLOOD COUNT 11.8 10^3/uL (4.0-10.0)
[2018-02-10 17:15] LABS: INR 4.86; PROTHROMBIN TIME 46.7 SECONDS (12.1-14.4)
[2018-02-10 17:16] LABS: PARTIAL THROMBOPLASTIN TIME 58.1 SECONDS (25.4-37.6)
[2018-02-10 17:38] LABS: ALBUMIN 3.2 GM/DL (3.2-5.2); ALKALINE PHOSPHATASE 54 U/L (45-117); ALT/SGPT 19 U/L (12-78); ANION GAP 12 MEQ/L (8-16); AST/SGOT 16 U/L (7-37); BILIRUBIN,DIRECT < 0.1 MG/DL (0.0-0.2); BILIRUBIN,TOTAL 0.3 MG/DL (0.2-1.0); BLOOD UREA NITROGEN 108 MG/DL (7-18); CALCIUM LEVEL 8.1 MG/DL (8.8-10.2); CARBON DIOXIDE LEVEL 32 MEQ/L (21-32); CHLORIDE LEVEL 94 MEQ/L (98-107); CPK CREATINE PHOSPHOKINASE 71 U/L (39-308); CREATININE FOR GFR 2.21 MG/DL (0.70-1.30); FREE T4 0.97 NG/DL (0.76-1.46); GLUCOSE, FASTING 85 MG/DL (70-100); MAGNESIUM LEVEL 2.6 MG/DL (1.8-2.4); MB/CK RELATIVE INDEX 3.38 (< OR =4); POTASSIUM SERUM 3.5 MEQ/L (3.5-5.1); SODIUM LEVEL 138 MEQ/L (136-145); TOTAL PROTEIN 6.4 GM/DL (6.4-8.2); TROPONIN I < 0.02 NG/ML (< 0.10)
[2018-02-10 17:57] LABS: LACTIC ACID SEPSIS PROTOCOL 1.9 MMOL/L (0.4-2.0)
[2018-02-10] MEDS: NS 500 ML IV (18:36)
[2018-02-10 19:02] LABS: IMMEDIATE SPIN CROSSMATCH 1 1
[2018-02-10] MEDS ORDERED: ACETAMINOPHEN TAB 650MG DOSE (2X325MG) PO (21:30)
[2018-02-10] MEDS ORDERED: ONDANSETRON 4MG/2ML VIAL (J2405) IV (21:30)
[2018-02-10] MEDS ORDERED: ALBUTEROL 90 MCG/ACT 8GM HFA INHALER INH (21:30)
[2018-02-10] MEDS ORDERED: FLUTICASONE PROP 0.05% NASAL SPRAY 16 GM (FLONASE) (21:30)
[2018-02-10] MEDS ORDERED: NITROGLYCERIN 0.4 MG SUBL TABLET SL (21:45)
[2018-02-10] MEDS: ATORVASTATIN 20 MG TAB PO (23:11)
[2018-02-10] MEDS: FERROUS SULFATE 325MG TAB PO (23:11)
[2018-02-10] MEDS: FOLIC ACID 1 MG TAB PO (23:11)
[2018-02-10] MEDS: OMEPRAZOLE 20 MG CAP PO (23:11)
[2018-02-10] MEDS: TORSEMIDE 20 MG TAB PO (23:13)
[2018-02-10] MEDS: LOSARTAN 25 MG TAB PO (23:13)
[2018-02-11 06:32] LABS: HEMATOCRIT 27.7 % (42.0-52.0); MEAN CORPUSCULAR HEMOGLOBIN 31.6 pg (27.0-33.0); MEAN CORPUSCULAR HGB CONC 32.5 g/dl (32.0-36.5); MEAN CORPUSCULAR VOLUME 97.2 fl (80.0-96.0); PLATELET COUNT, AUTOMATED 217 10^3/uL (150-450); RED BLOOD COUNT 2.85 10^6/uL (4.30-6.10); RED CELL DISTRIBUTION WIDTH 16.9 % (11.5-14.5); WHITE BLOOD COUNT 10.7 10^3/uL (4.0-10.0)
[2018-02-11 06:43] LABS: INR 4.03; PROTHROMBIN TIME 40.2 SECONDS (12.1-14.4)
[2018-02-11 06:50] LABS: ANION GAP 10 MEQ/L (8-16); BLOOD UREA NITROGEN 105 MG/DL (7-18); CALCIUM LEVEL 9.1 MG/DL (8.8-10.2); CARBON DIOXIDE LEVEL 32 MEQ/L (21-32); CHLORIDE LEVEL 95 MEQ/L (98-107); CREATININE FOR GFR 2.21 MG/DL (0.70-1.30); GLUCOSE, FASTING 111 MG/DL (70-100); POTASSIUM SERUM 3.4 MEQ/L (3.5-5.1); SODIUM LEVEL 137 MEQ/L (136-145)
[2018-02-11] MEDS: TIOTROPIUM INHALER/CAPSULE (SPIRIVA) INH (06:59)
[2018-02-11] MEDS: ADVAIR HFA 115/21MCG INHALER INH ×2 (06:59→19:54)
[2018-02-11] MEDS: MULTIVITAMINS/MINERALS THERAP 1 TAB PO (08:48)
[2018-02-11] MEDS: ALLOPURINOL 300 MG TAB PO (08:48)
[2018-02-11] MEDS: OMEPRAZOLE 20 MG CAP PO ×2 (08:48→21:35)
[2018-02-11] MEDS: CALCIUM/VITAMIN D 500 MG TAB PO (08:48)
[2018-02-11] MEDS: MIRALAX *UNIT DOSE* 17GM PACKET PO (08:48)
[2018-02-11] MEDS: POTASSIUM CHLORIDE 10 MEQ SR TABLET PO ×2 (08:48→09:00)
[2018-02-11] MEDS: FERROUS SULFATE 325MG TAB PO ×2 (08:48→21:35)
[2018-02-11] MEDS ORDERED: SPIRONOLACTONE 25 MG TAB PO (09:00)
[2018-02-11] MEDS: BISOPROLOL FUMARATE 5 MG TAB PO (09:00)
[2018-02-11] MEDS ORDERED: NS 750 ML IV (17:30)
[2018-02-11 18:01] LABS: HEMATOCRIT 27.1 % (42.0-52.0); HEMOGLOBIN 8.8 g/dl (13.5-17.5)
[2018-02-11] MEDS: NS 500 ML IV (19:48)
[2018-02-11] MEDS: FOLIC ACID 1 MG TAB PO (21:35)
[2018-02-11] MEDS: ATORVASTATIN 20 MG TAB PO (21:35)
[2018-02-12 09:36] LABS: HEMATOCRIT 27.9 % (42.0-52.0); HEMOGLOBIN 8.9 g/dl (13.5-17.5); MEAN CORPUSCULAR HGB CONC 31.9 g/dl (32.0-36.5); MEAN CORPUSCULAR VOLUME 100.4 fl (80.0-96.0); PLATELET COUNT, AUTOMATED 207 10^3/uL (150-450); RED BLOOD COUNT 2.78 10^6/uL (4.30-6.10); RED CELL DISTRIBUTION WIDTH 17.2 % (11.5-14.5); WHITE BLOOD COUNT 8.8 10^3/uL (4.0-10.0)
[2018-02-12 09:46] LABS: INR 3.49; PROTHROMBIN TIME 35.8 SECONDS (12.1-14.4)
[2018-02-12 10:04] LABS: ALBUMIN 3.3 GM/DL (3.2-5.2); ALBUMIN/GLOBULIN RATIO 0.85 (1.00-1.93); ALKALINE PHOSPHATASE 58 U/L (45-117); ALT/SGPT 17 U/L (12-78); ANION GAP 8 MEQ/L (8-16); AST/SGOT 18 U/L (7-37); BILIRUBIN,TOTAL 0.3 MG/DL (0.2-1.0); BLOOD UREA NITROGEN 86 MG/DL (7-18); CALCIUM LEVEL 9.2 MG/DL (8.8-10.2); CARBON DIOXIDE LEVEL 31 MEQ/L (21-32); CHLORIDE LEVEL 100 MEQ/L (98-107); CREATININE FOR GFR 1.89 MG/DL (0.70-1.30); GLOMERULAR FILTRATION RATE 37.1 (>42); GLUCOSE, FASTING 126 MG/DL (70-100); POTASSIUM SERUM 3.5 MEQ/L (3.5-5.1); SODIUM LEVEL 139 MEQ/L (136-145); TOTAL PROTEIN 7.2 GM/DL (6.4-8.2)
[2018-02-12] MEDS: ADVAIR HFA 115/21MCG INHALER INH ×2 (10:23→21:47)
[2018-02-12] MEDS: OMEPRAZOLE 20 MG CAP PO ×2 (10:31→20:10)
[2018-02-12] MEDS: BISOPROLOL FUMARATE 5 MG TAB PO (10:31)
[2018-02-12] MEDS: POTASSIUM CHLORIDE 10 MEQ SR TABLET PO (10:32)
[2018-02-12] MEDS: ALLOPURINOL 300 MG TAB PO (10:32)
[2018-02-12] MEDS: MULTIVITAMINS/MINERALS THERAP 1 TAB PO (10:32)
[2018-02-12] MEDS: CALCIUM/VITAMIN D 500 MG TAB PO (10:33)
[2018-02-12] MEDS: MIRALAX *UNIT DOSE* 17GM PACKET PO (10:33)
[2018-02-12] MEDS: FERROUS SULFATE 325MG TAB PO ×2 (10:33→20:10)
[2018-02-12 11:36] LABS: IMMEDIATE SPIN CROSSMATCH 1 1
[2018-02-12] MEDS: TIOTROPIUM INHALER/CAPSULE (SPIRIVA) INH (15:15)
[2018-02-12] MEDS: TORSEMIDE 20 MG TAB PO (16:58)
[2018-02-12] MEDS: WARFARIN SOD 5 MG TAB PO (16:58)
[2018-02-12 17:21] LABS: HEMATOCRIT 29.1 % (42.0-52.0); HEMOGLOBIN 9.5 g/dl (13.5-17.5)
[2018-02-12] MEDS: FOLIC ACID 1 MG TAB PO (20:10)
[2018-02-12] MEDS: ATORVASTATIN 20 MG TAB PO (20:10)
[2018-02-13 05:59] LABS: HEMATOCRIT 29.7 % (42.0-52.0); HEMOGLOBIN 9.6 g/dl (13.5-17.5); MEAN CORPUSCULAR HEMOGLOBIN 31.9 pg (27.0-33.0); MEAN CORPUSCULAR HGB CONC 32.3 g/dl (32.0-36.5); MEAN CORPUSCULAR VOLUME 98.7 fl (80.0-96.0); PLATELET COUNT, AUTOMATED 212 10^3/uL (150-450); RED BLOOD COUNT 3.01 10^6/uL (4.30-6.10); RED CELL DISTRIBUTION WIDTH 16.8 % (11.5-14.5); WHITE BLOOD COUNT 11.2 10^3/uL (4.0-10.0)
[2018-02-13 06:12] LABS: INR 2.88; PROTHROMBIN TIME 30.8 SECONDS (12.1-14.4)
[2018-02-13 06:26] LABS: ANION GAP 7 MEQ/L (8-16); BLOOD UREA NITROGEN 62 MG/DL (7-18); CALCIUM LEVEL 8.9 MG/DL (8.8-10.2); CARBON DIOXIDE LEVEL 31 MEQ/L (21-32); CHLORIDE LEVEL 101 MEQ/L (98-107); CREATININE FOR GFR 1.77 MG/DL (0.70-1.30); GLUCOSE, FASTING 115 MG/DL (70-100); MAGNESIUM LEVEL 2.5 MG/DL (1.8-2.4); POTASSIUM SERUM 3.4 MEQ/L (3.5-5.1); SODIUM LEVEL 139 MEQ/L (136-145)
[2018-02-13] MEDS: ADVAIR HFA 115/21MCG INHALER INH (08:16)
[2018-02-13] MEDS: TIOTROPIUM INHALER/CAPSULE (SPIRIVA) INH (08:16)
[2018-02-13] MEDS: FERROUS SULFATE 325MG TAB PO (08:46)
[2018-02-13] MEDS: POTASSIUM CHLORIDE 10 MEQ SR TABLET PO ×2 (08:46→08:47)
[2018-02-13] MEDS: BISOPROLOL FUMARATE 5 MG TAB PO (08:46)
[2018-02-13] MEDS: ALLOPURINOL 300 MG TAB PO (08:46)
[2018-02-13] MEDS: OMEPRAZOLE 20 MG CAP PO (08:46)
[2018-02-13] MEDS: TORSEMIDE 20 MG TAB PO (08:46)
[2018-02-13] MEDS: MULTIVITAMINS/MINERALS THERAP 1 TAB PO (08:46)
[2018-02-13] MEDS: MIRALAX *UNIT DOSE* 17GM PACKET PO (08:47)
[2018-02-13] MEDS: CALCIUM/VITAMIN D 500 MG TAB PO (08:47)
== END 2018-02-13 12:01 | disposition home or self-care (01) | DRG 812 ==
LOC: M MSPAV 02-11 14:46 → M ED 15:47 → M ED INP 21:26
PROC: 30233N1 Transfusion of Nonautologous Red Blood Cells into Peripheral Vein, Percutaneous Approach (ICD-10-PCS; principal; 2018-02-10)
DX: D64.9 Anemia, unspecified (principal); I13.0 Hypertensive heart and chronic kidney disease with heart failure and stage 1 through stage 4 chronic kidney disease, or unspecified chronic kidney disease; I50.9 Heart failure, unspecified; R79.1 Abnormal coagulation profile; I95.1 Orthostatic hypotension; J44.9 Chronic obstructive pulmonary disease, unspecified; K59.09 Other constipation; I25.10 Atherosclerotic heart disease of native coronary artery without angina pectoris; I48.91 Unspecified atrial fibrillation; N18.9 Chronic kidney disease, unspecified; E78.5 Hyperlipidemia, unspecified; K21.9 Gastro-esophageal reflux disease without esophagitis; Z87.891 Personal history of nicotine dependence; Z79.51 Long term (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 of inhaled steroids; Z79.01 Long term (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 of anticoagulants; Z95.2 Presence of prosthetic heart valve; Z79.899 Other long term (current) drug therapy

== ENCOUNTER → 2018-02-20 | Outpatient (CLI) | payer MEDICARE ==
[2018-02-20 11:56] LABS: INR 3.53; PROTHROMBIN TIME 36.2 SECONDS (12.1-14.4)
== END ==
LOC: M LAB 10:55
DX: Z51.81 Encounter for therapeutic drug level monitoring (principal); Z79.01 Long term (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 of anticoagulants; Z95.2 Presence of prosthetic heart valve
CPT/HCPCS: 85610

== ENCOUNTER → 2018-03-06 | Outpatient (CLI) | payer MEDICARE ==
[2018-03-06 10:56] LABS: INR 3.42; PROTHROMBIN TIME 35.3 SECONDS (12.1-14.4)
== END ==
LOC: M LAB 10:08
DX: Z95.2 Presence of prosthetic heart valve (principal)
CPT/HCPCS: 85610

== ENCOUNTER → 2018-03-13 | Outpatient (CLI) | payer MEDICARE ==
[2018-03-13 10:35] LABS: INR 3.71; PROTHROMBIN TIME 37.6 SECONDS (12.1-14.4)
== END ==
LOC: M LAB 09:33
DX: Z95.2 Presence of prosthetic heart valve (principal); Z79.01 Long term (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 of anticoagulants
CPT/HCPCS: 85610

== ENCOUNTER → 2018-04-01 | Outpatient (CLI) | payer MEDICARE ==
[2018-04-01 10:08] LABS: INR 4.08; PROTHROMBIN TIME 40.6 SECONDS (12.1-14.4)
== END ==
LOC: M LAB 08:56
DX: Z51.81 Encounter for therapeutic drug level monitoring (principal); Z79.01 Long term (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 of anticoagulants; Z95.2 Presence of prosthetic heart valve
CPT/HCPCS: 85610

== ENCOUNTER → 2018-04-09 | Outpatient (CLI) | payer MEDICARE ==
[~2018-04-09] MED LIST changes: +CALC600T68 PO; +COUM1TAB17 PO; +DEMA20TA6 PO; +FOLI1TAB11 PO; -FOLI1TAB4 PO; +LOSA25TA14 PO; -LOSA25TA8 PO; +LOSA50TA88 PO; +METO25TA PO; +REFR0.5D8 OS; +SPIR-10 PO; -SPIR25TA2 PO; +TORS20TA2 PO; +WARF-21 PO; +ZYLO300T6 PO
[2018-04-09 11:02] LABS: INR 3.79; PROTHROMBIN TIME 38.3 SECONDS (12.1-14.4)
== END ==
LOC: M LAB 10:09
PROVIDERS: ATTEND Physician Assistant
DX: Z51.81 Encounter for therapeutic drug level monitoring (principal); Z79.01 Long term (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 of anticoagulants; Z95.2 Presence of prosthetic heart valve

== ENCOUNTER → 2018-05-29 | Outpatient (CLI) | payer MEDICARE ==
[2018-05-29 11:26] LABS: INR 2.71; PROTHROMBIN TIME 29.4 SECONDS (12.1-14.4)
== END ==
LOC: M LAB 10:30
PROVIDERS: ATTEND Physician Assistant
DX: Z95.2 Presence of prosthetic heart valve (principal); Z79.01 Long term (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 of anticoagulants

== ENCOUNTER → 2018-06-25 | Outpatient (CLI) | payer MEDICARE ==
[2018-06-25 10:40] LABS: INR 2.65; PROTHROMBIN TIME 28.8 SECONDS (12.1-14.4)
== END ==
LOC: M LAB 09:49
PROVIDERS: ATTEND Physician Assistant
DX: Z95.2 Presence of prosthetic heart valve (principal); Z79.01 Long term (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 of anticoagulants

== ENCOUNTER → 2018-07-23 | Outpatient (CLI) | payer MEDICARE ==
[~2018-07-23] MED LIST changes: -/PANT40TA PO; +PROT1TAB2 PO
[2018-07-23 11:25] LABS: INR 2.73; PROTHROMBIN TIME 29.5 SECONDS (12.1-14.4)
== END ==
LOC: M LAB 10:49
PROVIDERS: ATTEND Physician Assistant
DX: Z51.81 Encounter for therapeutic drug level monitoring (principal); Z95.2 Presence of prosthetic heart valve; Z79.01 Long term (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 of anticoagulants

== ENCOUNTER → 2018-08-20 | Outpatient (CLI) | payer MEDICARE ==
[~2018-08-20] MED LIST changes: +CALC1TAB8 PO; -CALC600T68 PO; -ERGO500014 PO; +VITA500045 PO
[2018-08-20 09:48] LABS: INR 2.6; PROTHROMBIN TIME 28.4 SECONDS (12.1-14.4)
== END ==
LOC: M LAB 09:19
PROVIDERS: ATTEND Physician Assistant
DX: Z95.2 Presence of prosthetic heart valve (principal); Z79.01 Long term (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 of anticoagulants

== ENCOUNTER → 2018-09-17 | Outpatient (CLI) | payer MEDICARE ==
[2018-09-17 10:15] LABS: INR 2.2; PROTHROMBIN TIME 24.9 SECONDS (12.1-14.4)
== END ==
LOC: M LAB 09:06
PROVIDERS: ATTEND Physician Assistant
DX: Z95.2 Presence of prosthetic heart valve (principal); Z79.01 Long term (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 of anticoagulants

== ENCOUNTER → 2018-10-01 | Outpatient (CLI) | payer MEDICARE ==
[2018-10-01 09:38] LABS: INR 3.23; PROTHROMBIN TIME 33.8 SECONDS (12.1-14.4)
== END ==
LOC: M LAB 08:04
PROVIDERS: ATTEND Physician Assistant
DX: Z95.2 Presence of prosthetic heart valve (principal)

== ENCOUNTER → 2018-10-21 | Outpatient (CLI) | payer MEDICARE ==
[~2018-10-21] MED LIST changes: +BISO5TAB14 PO; +OMEP1CAP73 PO; -OMEP20CA3 PO; -OMEP40CA2 PO; +OMEP40CA97 PO
[2018-10-21 09:37] LABS: INR 3.6; PROTHROMBIN TIME 35.9 SECONDS (11.8-14.0)
== END ==
LOC: M LAB 08:21
PROVIDERS: ATTEND Physician Assistant
DX: Z51.81 Encounter for therapeutic drug level monitoring (principal); Z79.01 Long term (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 of anticoagulants; Z95.2 Presence of prosthetic heart valve

== ENCOUNTER → 2018-11-04 | Outpatient (CLI) | payer MEDICARE ==
[2018-11-04 10:02] LABS: INR 3.65; PROTHROMBIN TIME 36.3 SECONDS (11.8-14.0)
== END ==
LOC: M LAB 09:01
PROVIDERS: ATTEND Physician Assistant
DX: Z79.01 Long term (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 of anticoagulants (principal); Z95.2 Presence of prosthetic heart valve

== ENCOUNTER → 2018-11-25 | Outpatient (CLI) | payer MEDICARE ==
[~2018-11-25] MED LIST changes: -BISO5TAB14 PO; -OMEP1CAP73 PO; +OMEP20CA4 PO; +OMEP40CA2 PO; -OMEP40CA97 PO
[2018-11-25 08:58] LABS: INR 3.52; PROTHROMBIN TIME 35.3 SECONDS (11.8-14.0)
== END ==
LOC: M LAB 08:16
PROVIDERS: ATTEND Physician Assistant
DX: Z95.2 Presence of prosthetic heart valve (principal); Z79.01 Long term (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 of anticoagulants

== ENCOUNTER → 2018-12-10 | Outpatient (CLI) | payer MEDICARE ==
[2018-12-10 09:53] LABS: INR 2.98; PROTHROMBIN TIME 30.9 SECONDS (11.8-14.0)
== END ==
LOC: M LAB 08:43
PROVIDERS: ATTEND Physician Assistant
DX: Z95.2 Presence of prosthetic heart valve (principal)

== ENCOUNTER → 2019-01-08 | Outpatient (CLI) | payer MEDICARE ==
[~2019-01-08] MED LIST changes: +BISO5TAB9 PO
[2019-01-08 10:20] LABS: INR 2.33; PROTHROMBIN TIME 25.4 SECONDS (11.8-14.0)
== END ==
LOC: M LAB 09:12
PROVIDERS: ATTEND Physician Assistant
DX: Z95.2 Presence of prosthetic heart valve (principal); Z79.01 Long term (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 of anticoagulants

== ENCOUNTER → 2019-01-22 | Outpatient (CLI) | payer MEDICARE ==
[2019-01-22 08:19] LABS: INR 2.44; PROTHROMBIN TIME 26.3 SECONDS (11.8-14.0)
== END ==
LOC: M LAB 07:45
PROVIDERS: ATTEND Physician Assistant
DX: Z95.2 Presence of prosthetic heart valve (principal)

== ENCOUNTER → 2019-02-05 | Outpatient (CLI) | payer MEDICARE ==
[~2019-02-05] MED LIST changes: -OMEP40CA2 PO; +OMEP40CA97 PO
[2019-02-05 11:28] LABS: INR 2.52
== END ==
LOC: M LAB 10:52
PROVIDERS: ATTEND Physician Assistant
DX: Z95.2 Presence of prosthetic heart valve (principal); Z79.01 Long term (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 of anticoagulants

== ENCOUNTER → 2019-02-19 | Outpatient (CLI) | payer MEDICARE ==
[2019-02-19 12:39] LABS: INR 2.64; PROTHROMBIN TIME 28.1 SECONDS (11.8-14.0)
== END ==
LOC: M LAB 11:44
PROVIDERS: ATTEND Physician Assistant
DX: Z51.81 Encounter for therapeutic drug level monitoring (principal); Z79.01 Long term (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 of anticoagulants; Z95.2 Presence of prosthetic heart valve

== ENCOUNTER → 2019-03-06 | Outpatient (CLI) | payer MEDICARE ==
[2019-03-06 11:56] LABS: INR 3.14; PROTHROMBIN TIME 32.2 SECONDS (11.8-14.0)
== END ==
LOC: M LAB 10:34
PROVIDERS: ATTEND Physician Assistant
DX: Z51.81 Encounter for therapeutic drug level monitoring (principal); Z79.01 Long term (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 of anticoagulants; Z95.2 Presence of prosthetic heart valve; I48.21 Permanent atrial fibrillation

== ENCOUNTER → 2019-04-01 | Outpatient (CLI) | payer MEDICARE ==
[~2019-04-01] MED LIST changes: +OMEP-172 PO; -OMEP20CA4 PO
[2019-04-01 11:37] LABS: INR 3.32; PROTHROMBIN TIME 33.7 SECONDS (11.8-14.0)
== END ==
LOC: M LAB 10:41
PROVIDERS: ATTEND Physician Assistant
DX: Z79.01 Long term (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 of anticoagulants (principal); Z95.2 Presence of prosthetic heart valve

== ENCOUNTER → 2019-04-29 | Outpatient (CLI) | payer MEDICARE ==
[2019-04-29 08:51] LABS: INR 4.2; PROTHROMBIN TIME 40.7 SECONDS (11.8-14.0)
== END ==
LOC: M LAB 08:01
PROVIDERS: ATTEND Physician Assistant
DX: Z51.81 Encounter for therapeutic drug level monitoring (principal); Z79.01 Long term (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 of anticoagulants; I48.21 Permanent atrial fibrillation

== ENCOUNTER → 2019-05-06 | Outpatient (CLI) | payer MEDICARE ==
[~2019-05-06] MED LIST changes: +BISO5TAB14 PO; -BISO5TAB9 PO; -OMEP-172 PO; +OMEP1CAP73 PO
[2019-05-06 08:26] LABS: INR 3.44; PROTHROMBIN TIME 34.7 SECONDS (11.8-14.0)
== END ==
LOC: M LAB 07:40
PROVIDERS: ATTEND Physician Assistant
DX: Z51.81 Encounter for therapeutic drug level monitoring (principal); Z79.01 Long term (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 of anticoagulants; I48.21 Permanent atrial fibrillation

== ENCOUNTER → 2019-05-27 | Outpatient (CLI) | payer MEDICARE ==
[2019-05-27 09:28] LABS: INR 3.36
== END ==
LOC: M LAB 08:33
PROVIDERS: ATTEND Physician Assistant
DX: Z51.81 Encounter for therapeutic drug level monitoring (principal); Z79.01 Long term (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 of anticoagulants; Z95.2 Presence of prosthetic heart valve

== ENCOUNTER → 2019-06-23 | Outpatient (CLI) | payer MEDICARE ==
[2019-06-23 09:11] LABS: INR 2.62; PROTHROMBIN TIME 27.9 SECONDS (11.8-14.0)
== END ==
LOC: M LAB 07:41
PROVIDERS: ATTEND Physician Assistant
DX: Z51.81 Encounter for therapeutic drug level monitoring (principal); Z79.01 Long term (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 of anticoagulants; I48.21 Permanent atrial fibrillation

== ENCOUNTER → 2019-07-16 | Outpatient (CLI) | payer MEDICARE ==
[2019-07-16 11:42] LABS: INR 2.71; PROTHROMBIN TIME 28.6 SECONDS (11.8-14.0)
== END ==
LOC: M LAB 10:47
PROVIDERS: ATTEND Physician Assistant
DX: Z51.81 Encounter for therapeutic drug level monitoring (principal); Z79.01 Long term (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 of anticoagulants; I48.21 Permanent atrial fibrillation

== ENCOUNTER → 2019-08-21 | Outpatient (CLI) | payer MEDICARE ==
[2019-08-21 09:46] LABS: INR 2.26; PROTHROMBIN TIME 24.7 SECONDS (11.8-14.0)
== END ==
LOC: M LAB 08:54
PROVIDERS: ATTEND Physician Assistant
DX: I48.21 Permanent atrial fibrillation (principal)

== ENCOUNTER → 2019-09-03 | Outpatient (CLI) | payer MEDICARE ==
[2019-09-03 10:07] LABS: INR 2.75
== END ==
LOC: M LAB 09:24
PROVIDERS: ATTEND Physician Assistant
DX: I48.21 Permanent atrial fibrillation (principal); Z79.01 Long term (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 of anticoagulants

== ENCOUNTER → 2019-09-29 | Outpatient (CLI) | payer MEDICARE ==
[~2019-09-29] MED LIST changes: -COUM7.5T PO; +COUM7.5T6 PO
[2019-09-29 11:48] LABS: INR 4.24
== END ==
LOC: M LAB 10:47
PROVIDERS: ATTEND Physician Assistant
DX: Z51.81 Encounter for therapeutic drug level monitoring (principal); Z79.01 Long term (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 of anticoagulants; I48.21 Permanent atrial fibrillation

== ENCOUNTER → 2019-10-14 | Outpatient (CLI) | payer MEDICARE ==
[2019-10-14 10:50] LABS: PROTHROMBIN TIME 48.7 SECONDS (11.8-14.0)
[2019-10-14 12:57] LABS: INR 5.26
== END ==
LOC: M LAB 09:46
PROVIDERS: ATTEND Physician Assistant
DX: I48.21 Permanent atrial fibrillation (principal); Z79.01 Long term (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 of anticoagulants

== ENCOUNTER → 2019-10-20 | Outpatient (CLI) | payer MEDICARE ==
[2019-10-20 09:26] LABS: INR 2.26; PROTHROMBIN TIME 24.8 SECONDS (11.8-14.0)
== END ==
LOC: M LAB 08:52
PROVIDERS: ATTEND Physician Assistant
DX: Z51.81 Encounter for therapeutic drug level monitoring (principal); Z79.01 Long term (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 of anticoagulants; I48.21 Permanent atrial fibrillation

== ENCOUNTER → 2019-10-27 | Outpatient (CLI) | payer MEDICARE ==
[2019-10-27 09:42] LABS: INR 2.91; PROTHROMBIN TIME 30.3 SECONDS (11.8-14.0)
== END ==
LOC: M LAB 09:01
PROVIDERS: ATTEND Physician Assistant
DX: I48.21 Permanent atrial fibrillation (principal)

== ENCOUNTER → 2019-11-10 | Outpatient (CLI) | payer MEDICARE ==
[2019-11-10 10:11] LABS: INR 2.53; PROTHROMBIN TIME 27.1 SECONDS (11.8-14.0)
== END ==
LOC: M LAB 09:22
PROVIDERS: ATTEND Physician Assistant
DX: I48.21 Permanent atrial fibrillation (principal); Z79.01 Long term (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 of anticoagulants

== ENCOUNTER → 2019-12-09 | Outpatient (CLI) | payer MEDICARE ==
[2020-01-27 10:48] LABS: INR 2.12; PROTHROMBIN TIME 24.2 SECONDS (12.5-14.3)
== END ==
LOC: M LAB 10:06
PROVIDERS: ATTEND Physician Assistant
DX: I48.21 Permanent atrial fibrillation (principal); Z79.01 Long term (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 of anticoagulants

== ENCOUNTER → 2019-12-23 | Outpatient (CLI) | payer MEDICARE ==
[2019-12-23 09:58] LABS: INR 1.97; PROTHROMBIN TIME 22.9 SECONDS (11.8-14.0)
== END ==
LOC: M LAB 08:13
PROVIDERS: ATTEND Physician Assistant
DX: Z51.81 Encounter for therapeutic drug level monitoring (principal); Z79.01 Long term (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 of anticoagulants; I48.21 Permanent atrial fibrillation

== ENCOUNTER → 2020-01-12 | Outpatient (CLI) | payer MEDICARE ==
[2020-01-12 09:58] LABS: INR 3.26
== END ==
LOC: M LAB 08:40
PROVIDERS: ATTEND Physician Assistant
DX: I48.21 Permanent atrial fibrillation (principal); Z79.01 Long term (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 of anticoagulants

== ENCOUNTER → 2020-02-10 | Outpatient (CLI) | payer MEDICARE ==
[2020-02-10 11:20] LABS: INR 2.26; PROTHROMBIN TIME 25.5 SECONDS (12.5-14.3)
== END ==
LOC: M LAB 09:32
PROVIDERS: ATTEND Physician Assistant
DX: I48.21 Permanent atrial fibrillation (principal); Z79.01 Long term (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 of anticoagulants

== ENCOUNTER → 2020-02-25 | Outpatient (CLI) | payer MEDICARE ==
[2020-02-25 08:35] LABS: INR 2.48; PROTHROMBIN TIME 27.4 SECONDS (12.5-14.3)
== END ==
LOC: M LAB 08:05
PROVIDERS: ATTEND Physician Assistant
DX: I48.0 Paroxysmal atrial fibrillation (principal)

== ENCOUNTER → 2020-03-25 | Outpatient (CLI) | payer MEDICARE ==
[2020-03-25 11:42] LABS: INR 3.38
== END ==
LOC: M LAB 10:54
PROVIDERS: ATTEND Physician Assistant
DX: I48.21 Permanent atrial fibrillation (principal); Z79.01 Long term (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 of anticoagulants

== ENCOUNTER → 2020-04-12 | Outpatient (CLI) | payer MEDICARE ==
[2020-04-12 10:34] LABS: INR 2.43
== END ==
LOC: M LAB 09:42
PROVIDERS: ATTEND Physician Assistant
DX: I48.21 Permanent atrial fibrillation (principal); Z79.01 Long term (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 of anticoagulants

== ENCOUNTER 2020-04-29 15:17 | Inpatient (IN) | payer MEDICARE ==
[~2020-04-29] VITALS: Ht 182.9 cm; Wt 107.2 kg
[2020-04-29] MEDS ORDERED: NALOXONE INJ 0.4MG/1ML VIAL (J2310 PER 1MG) IV STA ×2 (15:49→16:18)
[2020-04-29 16:07] LABS: BASO % 0.3 % (0.0-1.0); EOS % 0.1 % (0.0-3.0); HEMATOCRIT 35.8 % (42.0-52.0); HEMOGLOBIN 11.1 g/dl (13.5-17.5); LYMPH # 0.5 10^3/uL (1.5-5.0); LYMPH % 3.8 % (24.0-44.0); MEAN CORPUSCULAR HEMOGLOBIN 32.9 pg (27.0-33.0); MEAN CORPUSCULAR VOLUME 106.2 fl (80.0-96.0); MONO % 8.1 % (0.0-5.0); NEUTROPHILS # 11.1 10^3/uL (1.5-8.5); NEUTROPHILS % 86.9 % (36.0-66.0); PLATELET COUNT, AUTOMATED 177 10^3/uL (150-450); RED BLOOD COUNT 3.37 10^6/uL (4.30-6.10); WHITE BLOOD COUNT 12.8 10^3/uL (4.0-10.0)
--- NOTE | 2020-04-29 16:07 | REP ---
INDICATION: Altered Mental Status. COMPARISON: Comparison CT studies of the brain are reviewed from February 10, 2018 and December 20, 2016.. TECHNIQUE: Helical scanning is acquired. 5 mm axial images were reformatted. Coronal MPR images were generated. FINDINGS: Bone window settings demonstrate an intact bony calvarium. There is no evidence of skull fracture or incidental bony calvarial lesion. The visualized paranasal sinuses appear clear. No intraorbital abnormality is seen. On soft tissue window setting images; the lateral, third, and fourth ventricles are normal in size and position. Peñaloza-white differentiation pattern is normal above and below the tentorium. There are is no evidence of intracranial hemorrhage. No mass, edema, infarction, or midline shift is seen. No extra-axial fluid collection is appreciated. There is mild vascular calcification in the distal internal carotid arteries bilaterally. There is fullness in the right side of the posterior nasal cavity question nasal polyp. This area is not included in the field of view on previous brain CTs. There is generalized volume loss moderate in degree. IMPRESSION: Vascular calcification and generalized volume loss. Question right posterior nasal polyp. No acute intracranial abnormality.. <Electronically signed by Tony Apodaca > 04/29/20 [id number]
--- NOTE | 2020-04-29 16:08 | REP ---
INDICATION: Altered Mental Status. COMPARISON: Comparison study February 10, 2018. TECHNIQUE: Portable upright AP chest radiograph. FINDINGS: Median sternotomy wires are noted. Monitoring electrodes are seen. Cardiomegaly is again observed unchanged. Lungs are exposed at a somewhat lesser level of inspiration. Pulmonary vasculature is cephalized and somewhat indistinct. There is no evidence of pleural effusion or diffuse interstitial edema. No focal infiltrate is seen.. IMPRESSION: Cardiomegaly, cephalization and some vascular congestion suspected. Lesser level of inspiration. Prior sternotomy. No focal infiltrate.. <Electronically signed by Tony Apodaca > 04/29/20 [id number]
[2020-04-29 16:14] LABS: ABG BASE EXCESS -3.8 (-2.0-2.0); ABG HCO3 22.6 MEQ/L (22.0-26.0); ABG O2 SATURATION 97.3 % (95.0-99.0); ABG PARTIAL PRESSURE CO2 46.4 mmHg (35.0-45.0); ABG PARTIAL PRESSURE O2 96.7 mmHg (75.0-100.0); ABG STANDARD HCO3 21.3 MEQ/L (22.0-26.0); ABG pH (ARTERIAL) 7.305 UNITS (7.350-7.450)
[2020-04-29 16:22] LABS: INR 2.87; PROTHROMBIN TIME 30.7 SECONDS (12.5-14.3)
[2020-04-29 16:23] LABS: PARTIAL THROMBOPLASTIN TIME 43.8 SECONDS (24.2-38.5)
[2020-04-29 16:28] LABS: OSMOLALITY SERUM 316 MOSM/KG (280-301)
[2020-04-29 16:38] LABS: ACETAMINOPHEN LEVEL 29.8 UG/ML (10.0-30.0); ALBUMIN 3.8 GM/DL (3.2-5.2); ALT/SGPT 20 U/L (12-78); BILIRUBIN,DIRECT 0.2 MG/DL (0.0-0.2); BILIRUBIN,TOTAL 0.5 MG/DL (0.2-1.0); BLOOD UREA NITROGEN 58 MG/DL (7-18); CALCIUM LEVEL 8.4 MG/DL (8.8-10.2); CARBON DIOXIDE LEVEL 31 MEQ/L (21-32); CHLORIDE LEVEL 106 MEQ/L (98-107); CK-MB VALUE MASS 12.1 NG/ML (<3.6); CPK CREATINE PHOSPHOKINASE 556 U/L (39-308); CREATININE FOR GFR 2.15 MG/DL (0.70-1.30); ETHYL ALCOHOL (ETHANOL) 0.003 % (0.000-0.010); GLOMERULAR FILTRATION RATE 31.7 (>42); GLUCOSE, FASTING 121 MG/DL (70-100); MB/CK RELATIVE INDEX 2.18 (< OR =4); POTASSIUM SERUM 5.2 MEQ/L (3.5-5.1); SALICYLATE LEVEL < 1.7 MG/DL (5.0-30.0); SODIUM LEVEL 140 MEQ/L (136-145); TOTAL PROTEIN 7.3 GM/DL (6.4-8.2); TROPONIN I 0.02 NG/ML (< 0.10)
[2020-04-29] MEDS ORDERED: WARFARIN SOD 5MG TAB PO SCH (17:00)
[2020-04-29] MEDS ORDERED: NS 1,000 ML IV ONE (17:00)
[2020-04-29] MEDS ORDERED: GLUCAGON INJ 1MG VIAL SC PRN (19:00)
[2020-04-29] MEDS ORDERED: GLUCOSE 4GM CHEW TABLET PO PRN (19:00)
[2020-04-29] MEDS ORDERED: DEXTROSE 50% 50 ML SYRINGE IV PRN (19:00)
--- NOTE | 2020-04-29 19:32 | HPEPDOC ---
[facility] Medical History & Physical Date of Admission Apr 29, 2020 Date of Service: Apr 29, 2020 History and Physical CHIEF COMPLAINT: Unresponsive HISTORY OF PRESENT ILLNESS: Obtained from medical records 80-year-old male with history of mechanical aortic valve on chronic warfarin, hypertension, anemia, COPD, CAD, reflux, BLANE was brought in by ambulance after the patient was found unresponsive in his car by his after being up all night sleeping on his chair due to epistaxis and using Q-tips to stop the bleeding. Patient was found to be mumbling by EMS and incomprehensible. He had no tonic-clonic activity and remained confused and mumbling despite multiple Narcan's in the ER, CT of the head was negative for acute intracranial abnormality. Glucose was 121. Ammonia was normal at 15. He was afebrile chest x- ray was negative. Urine and urine tox screen are still pending. Hospitalist was called to admit for altered mental status. Mild rhabdomyolysis, leukocytosis. PAST MEDICAL HISTORY: Anemia. Mechanical aortic valve. 1999 CAD. One stent, CHF, EF of 60%, hypertension, COPD, gastroesophageal reflux, obstructive sleep apnea, no CPAP PAST SURGICAL HISTORY: Coronary artery stent 1. Aortic valve replacement, mechanical valve, tonsillectomy, adenoidectomy, bilateral cataract surgery SOCIAL HISTORY: , Lives with at home. Former smoker, 1 pack a day for 50 years. Occasional alcohol use, about 6 beers a month. No recreational drug use. 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 REVIEW OF SYSTEMS: Could not be obtained as patient is confused HOME MEDICATIONS: Please see below. PHYSICAL EXAMINATION: VITAL SIGNS: See below GENERAL APPEARANCE: No respiratory distress Has spontaneous movements, mumbling, not answering questions HEENT: Bilateral pinpoint pupils, not following commands. No JVD, no thyromegaly. Dry blood clots on bilateral nares. Dry mucous membranes CARDIOVASCULAR: S1, S2, irregularly irregular. Mechanical click at the aortic area LUNGS: Diminished bilateral crackles ABDOMEN: Obese, doughy positive bowel sounds 4 quadrants distended. No rebound, guarding EXTREMITIES: Chronic venous stasis changes, + pitting edema NEURO:. Face is symmetric, not following commands, mumbling incomprehensible in point pupils bilaterally. Unable to assess motor function due to altered mental status, not following commands. No posturing. DTRs intact. Negative Babinski LABORATORY DATA: See below. IMAGING: See below MICROBIOLOGY: Please see below. ASSESSMENT: 80-year-old male with history of mechanical aortic valve on chronic warfarin, hypertension, anemia, COPD, CAD, reflux, BLANE was brought in by ambulance after the patient was found unresponsive in his car by his after being up all night sleeping on his chair due to epistaxis and using Q-tips to stop the bleeding. Patient was found to be mumbling by EMS and incomprehensible. He had no tonic-clonic activity and remained confused and mumbling despite multiple Narcan's in the ER, CT of the head was negative for acute intracranial abnormality. Glucose was 121. Ammonia was normal at 15. He was afebrile chest x- ray was negative. Urine and urine tox screen are still pending. Hospitalist was called to admit for altered mental status. Mild rhabdomyolysis, leukocytosis. Syncope -CT head no acute intracranial abnormality, no hemorrhage -Telemetry -EKG A. fib, chronic, with ST depressions, troponin negative -Echocardiogram ordered -Repeat CT head at 6 AM on 04/30/2020 to rule out CVA/hemorrhage -Neurochecks every 4 hourly -EEG and prolactin level -Ammonia level was normal -Patient has respiratory acidosis with repeat ABG pending Epistaxis -No recurrent episode -Keep O2 sat greater than 90% -May resume patient's warfarin due to Mechanical aortic valve Acute metabolic encephalopathy -Mild rhabdomyolysis With acute and chronic renal failure , status post syncope at home -Ammonia level normal -respiratory acidosis will be reevaluated with repeat ABG -No improvement with Narcan -CT head negative for acute CVA or hemorrhage -Neurochecks every 4 hourly -Recheck CT head in the morning. Rule out CVA and hemorrhage -Chest x-ray has no infection despite slight leukocytosis awaiting UA -May need to start on antibiotics if The patient becomes febrile or UA suspicious for UTI -Check pro calcitonin. if elevated, Empiric antibiotics are to be started -EEG in the morning and check prolactin level, rule out seizures -seizure and aspiration precautions -Swallow eval to rule out aspiration. Head of bed elevation -Unable to obtain MRI due to mechanical aortic valve Acute on chronic renal failure stage III -torsemide held for now since not in acute respiratory distress or hypoxic -cxr-cephalization -if bnp>1000, may need diuresis Respiratory acidosis -repeat abg pending -if worsens, may need pulm consult and bipap BLANE noncompliant w cpap -repeat abg -continuous pulse ox Mechanical aortic valve -resume warfarin inr goal 2.5-3.5 -hold if repeat ct head 04/30/20 show hemorrhage Uncontrolled hypertension -if no signs of aspiration, may give po meds -if needed, iv metoprolol or nitro paste for bp control Chronic anemia/ recent epistaxis -no acute need for rbc transfusion -monitor recurrent epistaxis Hypothyroidism -check thyroid profile COPD with chronic hypercarbia -recheck abg pending CAD status post stent -resume home meds if no aspiration signs Mild leukocytosis -no empiric abx -not septic -check procalcitonin, esr, crp, ua w reflex cs. Mild rhabdomyolysis -s/p syncope -received ivfluids, but cxr cephalization -if bnp<1000, may try ivfluids since acute on ckd3 code:full diet: npo except meds if no signs of aspiration aspiration precautions dvt prophylaxis: warfarin Vital Signs Vital Signs Date Time Temp Pulse Resp B/P (MAP) Pulse Ox O2 Delivery O2 Flow Rate FiO2 04/29/20 18:47 70 93 04/29/20 18:46 132/60 (84) 04/29/20 18:17 16 04/29/20 15:36 98.2 Room Air Laboratory Data Labs 24H Laboratory Tests 2 04/29/20 15:51: POC Troponin I (Misc) 0.02 04/29/20 15:57: POC Glucose (Misc Panel) 119H, POC Sodium (Misc Panel) 139, POC Potassium (Misc Panel) 5.1, POC Chloride (Misc Panel) 104, POC Total CO2 (Misc Panel) 29.0H, POC Blood Urea Nitrogen (Misc Panel 54H, POC Ionized Calcium (Misc Panel) 4.4L, POC Creatinine (Misc Panel) 2.2H, POC Hematocrit (Misc Panel) 36.0L, Blood Gas Bicarbonate Standard 21.3L, Arterial Blood pH 7.305L, Arterial Blood Partial Pressure CO2 46.4H, Arterial Blood Partial Pressure O2 96.7, Arterial Blood Total CO2 24.0, Arterial Blood HCO3 22.6, Arterial Blood Base Excess -3.8L, Arterial Blood Oxygen Saturation 97.3 04/29/20 15:58: Immature Granulocyte % (Auto) 0.8, Neutrophils (%) (Auto) 86.9H, Lymphocytes (%) (Auto) 3.8L, Monocytes (%) (Auto) 8.1H, Eosinophils (%) (Auto) 0.1, Basophils (%) (Auto) 0.3, Neutrophils # (Auto) 11.1H, Lymphocytes # (Auto) 0.5L, Monocytes # (Auto) 1.0H, Eosinophils # (Auto) 0.0, Basophils # (Auto) 0.0, Nucleated Red Blood Cells % (auto) 0.0, Prothrombin Time 30.7H, Prothromb Time International Ratio 2.87, Activated Partial Thromboplast Time 43.8H, Anion Gap 3L, Glomerular Filtration Rate 31.7L, Osmolality 316H, Lactic Acid Level 1.7, Calcium Level 8.4L, Total Bilirubin 0.5, Direct Bilirubin 0.2, Aspartate Amino Transf (AST/SGOT) 23, Alanine Aminotransferase (ALT/SGPT) 20, Alkaline Phosphatase 76, Ammonia 15, Total Creatine Kinase 556H, Creatine Kinase MB 12.1H, Creatine Kinase MB Relative Index 2.18, Troponin I 0.02, Total Protein 7.3, Albumin 3.8, Albumin/Globulin Ratio 1.1, Thyroid Stimulating Hormone (TSH) 12.500H, Salicy lates Level < 1.7L, Acetaminophen Level 29.8, Ethyl Alcohol Level 0.003 CBC/BMP Laboratory Tests 04/29/20 15:58 Microbiology Microbiology 04/29/20 Respiratory Virus Panel (PCR) ([facility]) - Final, Complete Home Medications Scheduled Allopurinol (Zyloprim) 300 Mg Tab, 300 MG PO DAILY Atorvastatin Calcium (Atorvastatin Calcium) 20 Mg Tab, 20 MG PO QHS Bisoprolol Fumarate (Bisoprolol Fumarate) 5 Mg Tab, 5 MG PO QAM Calcium Carbonate/Vitamin D3 (Calcium 600-Vit D3 400 Tablet) 1 Tab Tab, 1 TAB PO DAILY Ferrous Sulfate (Ferrous Sulfate) 325 Mg Tab, 325 MG PO BID Folic Acid (Folic Acid) 1 Mg Tab, 1 MG PO QPM Multivitamins (Thera M Plus Tablet) 1 Tab Tab, 1 TAB PO DAILY Omeprazole (Omeprazole) 40 Mg Cap, 40 MG PO BID Polyethylene Glycol 3350 (Miralax) 1 Pow Pow, 1 DOSE PO DAILY Potassium Chloride (Potassium Chloride) 20 Meq Tab, 20 MEQ PO DAILY Salmeterol/Fluticasone (Advair 250-50 Diskus) 14 Puff/Inhaler Aerp, 1 PUFF INH BID Spironolactone (Spironolactone) 25 Mg Tab, 25 MG PO DAILY Tiotropium Eugene (Spiriva Respimat) 1.25 Mcg/Act Aer, 1.25 MCG INH DAILY Torsemide (Demadex) 20 Mg Tab, 40 MG PO DAILY Warfarin Sodium (Coumadin) 5 Mg Tab, 5 MG PO 2XWK SUNDAY, SUNDAY Warfarin Sodium (Warfarin Sodium) 7.5 Mg Tab, 7.5 MG PO 5XW SUNDAY, SUNDAY, SUNDAY, SUNDAY, SUNDAY Scheduled PRN Albuterol Sulfate (Proair Hfa) 108 Mcg/Act Aer, 2 PUFF INH QID PRN for SHORTNESS OF BREATH Carboxymethylcellulose Sodium (Refresh Tears) 0.5 % Aramis, 1 DROP OS DAILY PRN for DRY EYES Fluticasone Propionate (Flonase Allergy Relief) 50 Mcg/Act Spr, 100 MCG NA DAILY PRN for NASAL CONGESTION Nitroglycerin (Nitroglycerin) 0.4 Mg Sub, 0.4 MG SL NITRO PRN for CHEST PAIN Allergies Coded Allergies: No Known Allergies (Unverified , 08/20/18) A-FIB/CHADSVASC A-FIB History Current/History of A-Fib/PAF?: Yes Current PO Anticoag Therapy: Yes Age/Risk Factor Scoring CHADSVASC: CHADSVASC Response (Comments) Value Age Risk Factor Age >/= 75 years old 2 Gender Risk Factor Male 0 Hx of CHF Yes 1 Hx of HTN Yes 1 Hx of Stroke/TIA/or VTE No 0 Hx of Diabetes No 0 Hx of Vascular Disease No 0 Total 4 Treatment Treatment ordered: Warfarin KELLEY VACA MD Apr 29, 2020 19:12
[2020-04-29] MEDS ORDERED: TORS20TA2 PO (19:34)
[2020-04-29] MEDS ORDERED: METO25TA PO (19:35)
[2020-04-29] MEDS ORDERED: POTA1TAB14 PO (19:35)
[2020-04-29 19:36] LABS: ABG BASE EXCESS -2.5 (-2.0-2.0); ABG HCO3 25.4 MEQ/L (22.0-26.0); ABG O2 SATURATION 93.2 % (95.0-99.0); ABG PARTIAL PRESSURE CO2 58.9 mmHg (35.0-45.0); ABG PARTIAL PRESSURE O2 71.2 mmHg (75.0-100.0); ABG STANDARD HCO3 22.3 MEQ/L (22.0-26.0); ABG TOTAL CO2 27.2 MEQ/L (23.0-31.0); ABG pH (ARTERIAL) 7.252 UNITS (7.350-7.450)
[2020-04-29] MEDS ORDERED: SINE25TA5 PO (19:36)
[2020-04-29] MEDS ORDERED: COQ1200C PO (19:36)
[2020-04-29] MEDS ORDERED: PT COMMENT (19:37)
[2020-04-29 20:07] LABS: C REACTIVE PROTEIN QUANTITATIV 1.02 MG/DL (0.00-0.30)
[2020-04-29 20:29] LABS: PROLACTIN 17.8 NG/ML (2.1-17.7)
[2020-04-29] MEDS ORDERED: ATORVASTATIN 20 MG TAB PO SCH (21:00)
[2020-04-29] MEDS: FERROUS SULFATE 325MG TAB PO SCH (21:00)
[2020-04-29] MEDS ORDERED: CEFEPIME HCL 2 GM in D5W MINI-BAG PLUS 50 ML IV SCH (22:30)
[2020-04-30] VITALS (22 sets, daily range): BP systolic 115–157; BP diastolic 56–67; O2SAT 98–99
[2020-04-30 00:03] LABS: CK-MB VALUE MASS 16.7 NG/ML (<3.6); MB/CK RELATIVE INDEX 2.24 (< OR =4); TROPONIN I 0.02 NG/ML (< 0.10)
[2020-04-30 00:15] LABS: ABG BASE EXCESS -0.2 (-2.0-2.0); ABG HCO3 28.8 MEQ/L (22.0-26.0); ABG O2 SATURATION 98.9 % (95.0-99.0); ABG PARTIAL PRESSURE O2 144.1 mmHg (75.0-100.0); ABG STANDARD HCO3 24.3 MEQ/L (22.0-26.0); ABG pH (ARTERIAL) 7.223 UNITS (7.350-7.450)
[2020-04-30 00:16] LABS: ABG PARTIAL PRESSURE CO2 71.5 mmHg (35.0-45.0)
[2020-04-30] MEDS: CEFEPIME HCL 1 GM in D5W MINI-BAG PLUS 50 ML IV SCH ×3 (00:50→22:29)
[2020-04-30] MEDS ORDERED: VANCOMYCIN HCL 1,000 MG, VIAL MATE ADAPTER 1 EACH in D5W 250 ML IV ONE (01:00)
[2020-04-30] MEDS ORDERED: FUROSEMIDE 100MG/10ML VIAL (J1940) IV ONE (01:00)
[2020-04-30] MEDS ORDERED: MIDAZOLAM INJ 2MG/2ML VIAL (J2250 PER 1MG) As Ordered ONE ×2 (01:04→01:05)
[2020-04-30] MEDS ORDERED: PROPOFOL 1,000 MG/100 ML VIAL As Ordered ONE (01:04)
[2020-04-30 01:18] LABS: AMPHETAMINES LEVEL URINE NEGATIVE (NEGATIVE); BARBITURATES URINE NEGATIVE (NEGATIVE); BENZODIAZEPINES URINE NEGATIVE (NEGATIVE); CANNABINOIDS URINE NEGATIVE (NEGATIVE); COCAINE METABOLITE URINE NEGATIVE (NEGATIVE); METHADONE URINE NEGATIVE (NEGATIVE); OPIATES URINE POSITIVE (NEGATIVE); PHENCYCLIDINE URINE NEGATIVE (NEGATIVE)
[2020-04-30] MEDS ORDERED: propofoL 1,000 MG in IV 1 EA IV SCH ×2 (01:20→13:20)
[2020-04-30] MEDS ORDERED: MIDAZOLAM INJ 2MG/2ML VIAL (J2250 PER 1MG) IV PRN (01:30)
[2020-04-30] MEDS: VANCOMYCIN HCL 1,000 MG, VIAL MATE ADAPTER 1 EACH in D5W 250 ML IV SCH ×2 (01:37→23:42)
[2020-04-30] MEDS ORDERED: CETACAINE SPRAY 5GM As Ordered ONE (01:55)
[2020-04-30 03:24] LABS: ABG BASE EXCESS 1.2 (-2.0-2.0); ABG HCO3 26.8 MEQ/L (22.0-26.0); ABG O2 SATURATION 97.3 % (95.0-99.0); ABG PARTIAL PRESSURE CO2 46.5 mmHg (35.0-45.0); ABG PARTIAL PRESSURE O2 91.1 mmHg (75.0-100.0); ABG STANDARD HCO3 25.6 MEQ/L (22.0-26.0); ABG TOTAL CO2 28.2 MEQ/L (23.0-31.0); ABG pH (ARTERIAL) 7.378 UNITS (7.350-7.450)
[2020-04-30] MEDS: PANTOPRAZOLE 40MG VIAL (C9113 PER 1) IV SCH (04:06)
[2020-04-30] MEDS: propofoL 1,000 MG in IV 1 EA IV SCH ×3 (05:54→19:49)
[2020-04-30] MEDS ORDERED: LEVOTHYROXINE 25MCG TABLET (0.025MG) PO SCH (06:00)
--- NOTE | 2020-04-30 06:50 | REPVR ---
PROCEDURE INFORMATION: Exam: CT Head Without Contrast Exam date and time: 04/30/2020 6:00 AM Age: 80 years old Clinical indication: Injury or trauma; Fall; Concussion/head injury; Consciousness not specified; Additional info: Fall on warfarin R/O ich AMS TECHNIQUE: Imaging protocol: Computed tomography of the head without contrast. Radiation optimization: All CT scans at this facility use at least one of these dose optimization techniques: automated exposure control; mA and/or kV adjustment per patient size (includes targeted exams where dose is matched to clinical indication); or iterative reconstruction. COMPARISON: CT Head without contrast 04/29/2020 3:47 PM FINDINGS: Brain: Symmetric caliber of the cortical sulci. Mild small vessel ischemic change. Dural calcifications. No acute post-traumatic brain injury. Cerebral ventricles: Normal configuration of the ventricles. Bones/joints: No acute calvarial injury. Paranasal sinuses: Low-grade mucoperiosteal disease in the sinuses. Mastoid air cells: No mastoid effusion. Vasculature: Vascular calcification. Soft tissues: No significant scalp hematoma. Nasopharynx: Fluid in the posterior nasopharynx. IMPRESSION: No acute post-traumatic brain injury. Electronically signed by: Steve Mcgraw On 04/30/2020 06:50:50 AM
[2020-04-30 07:17] LABS: HEMATOCRIT 32.9 % (42.0-52.0); MEAN CORPUSCULAR HEMOGLOBIN 32.5 pg (27.0-33.0); MEAN CORPUSCULAR HGB CONC 30.4 g/dl (32.0-36.5); MEAN CORPUSCULAR VOLUME 106.8 fl (80.0-96.0); PLATELET COUNT, AUTOMATED 165 10^3/uL (150-450); RED BLOOD COUNT 3.08 10^6/uL (4.30-6.10); WHITE BLOOD COUNT 11.3 10^3/uL (4.0-10.0)
[2020-04-30 07:32] LABS: INR 2.96; PROTHROMBIN TIME 31.5 SECONDS (12.5-14.3)
[2020-04-30 08:11] LABS: CALCIUM LEVEL 8.3 MG/DL (8.8-10.2); CK-MB VALUE MASS 18.1 NG/ML (<3.6); CREATININE FOR GFR 1.84 MG/DL (0.70-1.30); FREE THYROXINE INDEX 2.7 % (1.4-3.8); MB/CK RELATIVE INDEX 1.25 (< OR =4); POTASSIUM SERUM 4.6 MEQ/L (3.5-5.1); THYROID STIMULATING HORMONE 4.75 uIU/ML (0.358-3.740); THYROXINE (T4) 7.2 UG/DL (4.5-12.0); TROPONIN I 0.02 NG/ML (< 0.10)
--- NOTE | 2020-04-30 08:16 | CCN ---
CRITICAL CARE NOTE DATE: 04/30/2020 SUBJECTIVE: I was called to the emergency department to evaluate this 80-year-old male admitted earlier in the day, but remaining in the emergency department awaiting a bed placement. Apparently, based on my review of the notes, he was experiencing epistaxis and altered level of consciousness and was brought to the hospital. He is on chronic anticoagulation therapy for an aortic valve replacement. He was described on admission to be confused. On review of his electronic health record, he has obstructive lung disease related to a 50-pack year smoking history, coronary artery disease, aortic valvular replacement, obstructive sleep apnea syndrome, and hypertension. OBJECTIVE: GENERAL APPEARANCE: On my arrival, the patient is obtunded with twitching clonic movement. There is old blood from his nose and mouth. A BiPAP mask is in place. VITAL SIGNS: His temperature is 98, pulse rate 63, respirations 12 and noneffective, blood pressure 118/70. HEENT: Old blood is appreciated in his nose. His neck is quite thick. Pupils are pinpoint and nonreactive. Oropharynx is crowded with old blood in the retropharyngeal space. His jugular veins are difficult to appreciate. HEART: Sounds are distant. There is a prosthetic heart sound. RESPIRATORY: Breath sounds with diffuse rales bilaterally. Chest is symmetric and moves minimally with ineffective respiratory efforts. ABDOMEN: Soft and obesity. EXTREMITIES: Show gross edema and clonic activity. DIAGNOSTIC STUDIES: His white cell count is 12, hemoglobin 11.1, hematocrit 35.8, platelet count 177,000. Differential white cell count shows 86.9 neutrophils. The electrolytes are sodium 140, potassium 5.2, chloride 106, CO2 of 31, BUN 58, creatinine 2.15, glucose 121. His calcium is 8.4 and an albumin of 3.8. CPK of 556, MB fraction 2.18. His troponin on admission was 0.02. The procalcitonin was 17.8. TSH 12.5. B-type natriuretic peptide 3869. Arterial blood gas on admission showed a pH of 7.30, pCO2 of 46, pO2 of 96. Subsequently pH 7.25, pCO2 of 58, pO2 of 71. Now on BiLevel therapy, pH 7.22, pCO2 of 71, and pO2 of 144. IMAGING: Chest x-ray shows interstitial edema. IMPRESSION AND PLAN: The primarily problem requiring critical attention is acute hypoxic hypercarbic respiratory failure. The patient will require endotracheal tube intubation and mechanical ventilatory support. We will follow arterial blood gases thereafter. Pulmonary edema: I will give him a dose of Lasix and monitor urine output. A Boyle catheter has just been placed. Hypothyroidism: TSH is up but T4 is not. Chronic obstructive pulmonary disease (COPD): We will initiate beta-agonist therapy via nebulizer. Deep vein thrombosis (DVT) prophylaxis: The patient is on chronic anticoagulation therapy. Ulcer prophylaxis: Will be addressed with IV Protonix. The patient's condition is critical. Prognosis is guarded. CRITICAL CARE TIME: 146 minutes spent in the provision of bedside critical care and coordination, exclusive of any procedure time. MTDD
[2020-04-30] MEDS: IPRATROPIUM 0.5MG/ALBUTEROL 2.5MG INH SOL UD 3ML (DUONEB) NEB SCH ×4 (08:19→19:50)
[2020-04-30] MEDS: FERROUS SULFATE 325MG TAB PO SCH (09:00)
[2020-04-30] MEDS ORDERED: CALCIUM/VITAMIN D 500 MG TAB PO SCH (09:00)
[2020-04-30] MEDS ORDERED: MULTIVITAMINS/MINERALS THERAP 1 TAB PO SCH (09:00)
[2020-04-30] MEDS ORDERED: bisoproloL fumarate 5 MG TAB PO SCH (09:00)
[2020-04-30] MEDS ORDERED: allopurinoL 300 MG TAB PO SCH (09:00)
[2020-04-30] MEDS ORDERED: FOLIC ACID 1 MG TAB PO SCH (09:00)
--- NOTE | 2020-04-30 09:43 | RO ---
OPERATIVE NOTE DATE OF OPERATION: 04/30/2020 PREOPERATIVE DIAGNOSIS: Hypercarbia. POSTOPERATIVE DIAGNOSIS: Hypercarbia. PROCEDURE PERFORMED: Emergent endotracheal tube intubation. INDICATIONS FOR PROCEDURE: The patient was seen in the emergency department with ineffective respiratory efforts, worsening respiratory acidosis, and hypercarbia despite the use of noninvasive ventilation. A GlideScope was prepared and inserted into the patient's upper airway after 2 mg of Versed. Copious blood and secretions were suctioned free. The epiglottis was visualized, as were the vocal cords. A #8 endotracheal tube was placed through the vocal cords to a distance of 24 cm. The balloon was inflated, CO2 was appreciated on the monitor, and good bilateral breath sounds were auscultated. The tube was connected to a mechanical ventilator and a postprocedural chest x-ray is pending. There were no complications.
[2020-04-30] MEDS: CHLORHEXIDINE GLUCONATE 0.12 % 15ML UDC (PERIDEX ORAL RINSE) MT SCH ×2 (11:18→19:49)
[2020-04-30 12:52] LABS: CK-MB VALUE MASS 24.4 NG/ML (<3.6); MB/CK RELATIVE INDEX 1.13 (< OR =4); TROPONIN I 0.03 NG/ML (< 0.10)
--- NOTE | 2020-04-30 12:52 | IPNPDOC ---
Date Seen The patient was seen on 04/30/20. Progress Note SUBJECTIVE: Patient was intubated yesterday due to worsening. Acute hypercarbic respiratory failure from decompensated congestive heart failure and diuresed well with IV Lasix 80 mg with improvement in his creatinine. He is currently sedated and unable to obtain review of system no recurrent episodes of epistaxis but continues to have dried clots in his bilateral nares. , No fever or chills ove rnight but on broad-spectrum antibiotics day #2. OBJECTIVE: PHYSICAL EXAMINATION: VITAL SIGNS: See below Input and output input 795.5 mL output 05/29/1948, -1854 mL Weight 120.7 kg GENERAL APPEARANCE: Sedated with orogastric tube, endotracheal tube. HEENT: Bilateral pinpoint pupils,JVD, no thyromegaly. Dry blood clots on bilateral nares. Dry mucous membranes OG and ET tube CARDIOVASCULAR: S1, S2, irregularly irregular. LUNGS: Diminished bilateral crackles ABDOMEN: Obese, doughy positive bowel sounds 4 quadrants distended. No rebound, guarding EXTREMITIES: Chronic venous stasis changes, + pitting edema NEURO: Sedated, symmetric LABORATORY DATA: See below. IMAGING: See below MICROBIOLOGY: Please see below. ASSESSMENT: 80-year-old male with history of mechanical aortic valve on chronic warfarin, hypertension, anemia, COPD, CAD, reflux, BLANE was brought in by ambulance after the patient was found unresponsive in his car by his after being up all night sleeping on his chair due to epistaxis and using Q-tips to stop the bleeding. Patient was found to be mumbling by EMS and incomprehensible. He had no tonic-clonic activity and remained confused and mumbling despite multiple N arcan's in the ER, CT of the head was negative for acute intracranial abnormality. Glucose was 121. Ammonia was normal at 15. He was afebrile chest x- ray was negative. Urine and urine tox screen are still pending. Hospitalist was called to admit for altered mental status, found to be in decompensated congestive heart failure with acute hypercapnic respiratory failure requiring intubation and diuresis overnight. Acute CHF exacerbation with preserved systolic function/diastolic dysfunction -Complicated by acute respiratory acidosis and hypercapnic respiratory failure requiring intubation and mechanical ventilation on 04/29/2020 -Ventilatory management by architectural design lecturer -Diuresis well and remains in negative balance after giving Lasix 80 mg intravenously yesterday -On strict I's and O's, daily weights and fluid restriction Acute hypercarbic respiratory failure with acute Respiratory acidosis -Due to his decompensated congestive heart failure managed with diuresis -Currently intubated, and mechanically ventilated managed by architectural design lecturer Acute metabolic encephalopathy -Due to acute respiratory acidosis and hypercarbic respiratory failure from decompensated congestive heart failure with preserved systolic function -Currently sedated -On broad-spectrum IV antibiotics until culture results are final Acute on chronic kidney disease stage III -Due to congestive heart failure exacerbation on Lasix diuresis, strict I's and O's, daily weights and fluid restriction. Daily monitoring of BMP Epistaxis -No recurrent episode -Keep O2 sat greater than 90% -resumed patient's warfarin due to Mechanical aortic valve BLANE noncompliant w cpap Mechanical aortic valve -resumed warfarin inr goal 2.5-3.5 -CT head negative for acute hemorrhage Hypertension -Controlled -Sedated Chronic anemia/ recent epistaxis -no acute need for rbc transfusion -monitor recurrent epistaxis Hypothyroidism -T4 is normal. No need for supplementation COPD, compensated -Nebulizer -Currently intubated and vented CAD status post stent -Negative troponins overnight code:full diet: npo except meds if no signs of aspiration aspiration precautions VS, I&O, 24H, Fishbone Vital Signs/I&O Vital Signs Date Time Temp Pulse Resp B/P (MAP) Pulse Ox O2 Delivery O2 Flow Rate FiO2 04/30/20 11:57 61 99 Ventilator 04/30/20 11:55 125/60 (81) 04/30/20 11:00 98.8 22 40.0 04/30/20 08:15 40 I&O- Last 24 Hours up to 6 AM 04/30/20 05:59 Intake Total 1690 ml Output Total 1600 ml Balance 90 ml Laboratory Data 24H LABS Laboratory Tests 2 04/29/20 15:51: POC Troponin I (Misc) 0.02 04/29/20 15:57: POC Glucose (Misc Panel) 119H, POC Sodium (Misc Panel) 139, POC Potassium (Misc Panel) 5.1, POC Chloride (Misc Panel) 104, POC Total CO2 (Misc Panel) 29.0H, POC Blood Urea Nitrogen (Misc Panel 54H, POC Ionized Calcium (Misc Panel) 4.4L, POC Creatinine (Misc Panel) 2.2H, POC Hematocrit (Misc Panel) 36.0L, Blood Gas Bicarbonate Standard 21.3L, Arterial Blood pH 7.305L, Arterial Blood Partial Pressure CO2 46.4H, Arterial Blood Partial Pressure O2 96.7, Arterial Blood Total CO2 24.0, Arterial Blood HCO3 22.6, Arterial Blood Base Excess -3.8L, Arterial Blood Oxygen Saturation 97.3 04/29/20 15:58: Immature Granulocyte % (Auto) 0.8, Neutrophils (%) (Auto) 86.9H, Lymphocytes (%) (Auto) 3.8L, Monocytes (%) (Auto) 8.1H, Eosinophils (%) (Auto) 0.1, Basophils (%) (Auto) 0.3, Neutrophils # (Auto) 11.1H, Lymphocytes # (Auto) 0.5L, Monocytes # (Auto) 1.0H, Eosinophils # (Auto) 0.0, Basophils # (Auto) 0.0, Nucleated Red Blood Cells % (auto) 0.0, Prothrombin Time 30.7H, Prothromb Time International Ratio 2.87, Activated Partial Thromboplast Time 43.8H, Anion Gap 3L, Glomerular Filtration Rate 31.7L, Osmolality 316H, Lactic Acid Level 1.7, Calcium Level 8.4L, Total Bilirubin 0.5, Direct Bilirubin 0.2, Aspartate Amino Transf (AST/SGOT) 23, Alanine Aminotransferase (ALT/SGPT) 20, Alkaline Phosphatase 76, Ammonia 15, Total Creatine Kinase 556H, Creatine Kinase MB 12.1H, Creatine Kinase MB Relative Index 2.18, Troponin I 0.02, Total Protein 7.3, Albumin 3.8, Albumin/Globulin Ratio 1.1, Thyroid Stimulating Hormone (TSH) 12.500H, Salicylates Level < 1.7L, Acetaminophen Level 29.8, Ethyl Alcohol Level 0.003 04/29/20 19:27: Blood Gas Bicarbonate Standard 22.3, Arterial Blood pH 7.252L, Arterial Blood Partial Pressure CO2 58.9H, Arterial Blood Partial Pressure O2 71.2L, Arterial Blood Total CO2 27.2, Arterial Blood HCO3 25.4, Arterial Blood Base Excess - 2.5L, Arterial Blood Oxygen Saturation 93.2L 04/29/20 19:28: Erythrocyte Sedimentation Rate 59H, C-Reactive Protein, Quantitative 1.02H, [id number] Natriuretic Peptide 3869H, Procalcitonin <0.05, Free Thyroxine 1.00, Prolactin 17.8H 04/29/20 23:19: Total Creatine Kinase 746H, Creatine Kinase MB 16.7H, Creatine Kinase MB Relative Index 2.24, Troponin I 0.02 04/30/20 00:08: Blood Gas Bicarbonate Standard 24.3, Arterial Blood pH 7.223*L, Arterial Blood Partial Pressure CO2 71.5*H, Arterial Blood Partial Pressure O2 144.1H, Arterial Blood Total CO2 31.0, Arterial Blood HCO3 28.8H, Arterial Blood Base Excess - 0.2, Arterial Blood Oxygen Saturation 98.9 04/30/20 00:46: Urine Color YELLOW, Urine Appearance CLEAR, Urine pH 5.0, Urine Specific [place] 1.018, Urine Protein NEGATIVE, Urine Glucose (UA) NEGATIVE, Urine Ketones NEGATIVE, Urine Blood NEGATIVE, Urine Nitrite NEGATIVE, Urine Bilirubin NEGATIVE, Urine Urobilinogen 0.2, Urine Leukocyte Esterase NEGATIVE, Urine WBC (Auto) 1, Urine RBC (Auto) 0, Urine Hyaline Casts (Auto) 3, Urine Bacteria (Auto) NEGATIVE, Urine Squamous Epithelial Cells 0, Urine Sperm (Auto) , Urine Opiates Screen POSITIVEH, Urine Methadone Screen NEGATIVE, Urine Barbiturates Screen NEGATIVE, Urine Phencyclidine Screen NEGATIVE, Urine Amphetamines Screen NEGATIVE, Urine Benzodiazepines Screen NEGATIVE, Urine Cocaine Metabolite Screen NEGATIVE, Urine Cannabinoids Screen NEGATIVE 04/30/20 03:19: Blood Gas Bicarbonate Standard 25.6, Arterial Blood pH 7.378, Arterial Blood Partial Pressure CO2 46.5H, Arterial Blood Partial Pressure O2 91.1, Arterial Blood Total CO2 28.2, Arterial Blood HCO3 26.8H, Arterial Blood Base Excess 1.2, Arterial Blood Oxygen Saturation 97.3 04/30/20 07:09: Nucleated Red Blood Cells % (auto) 0.0, Prothrombin Time 31.5H, Prothromb Time I nternational Ratio 2.96, Anion Gap 6L, Glomerular Filtration Rate 38.0L, Calcium Level 8.3L, Total Creatine Kinase 1448#H, Creatine Kinase MB 18.1H, Creatine Kinase MB Relative Index 1.25, Troponin I 0.02, Thyroid Stimulating Hormone (TSH) 4.750H, Free Thyroxine Index 2.7, Thyroxine (T4) 7.2, Triiodothyronine (T3) Uptake 38 04/30/20 11:48: CBC/BMP Laboratory Tests 04/29/20 15:58 04/30/20 07:09 Microbiology Microbiology 04/29/20 Blood Culture, Received Pending 04/29/20 Blood Culture, Received Pending 04/29/20 Respiratory Virus Panel (PCR) ([facility]) - Final, Complete KELLEY VACA MD Apr 30, 2020 12:39
[2020-04-30] MEDS ORDERED: WARFARIN SOD 7.5MG TAB PO SCH (17:00)
[2020-04-30] MEDS: FUROSEMIDE 100MG/10ML VIAL (J1940) IV SCH (17:15)
[2020-04-30 18:51] LABS: CK-MB VALUE MASS 23.5 NG/ML (<3.6); TROPONIN I 0.04 NG/ML (< 0.10)
--- NOTE | 2020-04-30 21:31 | ECGEPIP ---
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
[2020-05-01] VITALS (45 sets, daily range): BP systolic 105–177; BP diastolic 54–110
[2020-05-01] MEDS: PANTOPRAZOLE 40MG VIAL (C9113 PER 1) IV SCH (01:47)
[2020-05-01] MEDS: propofoL 1,000 MG in IV 1 EA IV SCH ×4 (02:17→23:32)
[2020-05-01 05:37] LABS: HEMATOCRIT 31.7 % (42.0-52.0); MEAN CORPUSCULAR HEMOGLOBIN 33.6 pg (27.0-33.0); MEAN CORPUSCULAR HGB CONC 31.5 g/dl (32.0-36.5); MEAN CORPUSCULAR VOLUME 106.4 fl (80.0-96.0); PLATELET COUNT, AUTOMATED 162 10^3/uL (150-450); RED BLOOD COUNT 2.98 10^6/uL (4.30-6.10); WHITE BLOOD COUNT 12.5 10^3/uL (4.0-10.0)
[2020-05-01 05:51] LABS: INR 2.23; PROTHROMBIN TIME 25.2 SECONDS (12.5-14.3)
[2020-05-01 05:58] LABS: CALCIUM LEVEL 8.4 MG/DL (8.8-10.2); CREATININE FOR GFR 1.77 MG/DL (0.70-1.30); GLOMERULAR FILTRATION RATE 39.7 (>42); POTASSIUM SERUM 4.2 MEQ/L (3.5-5.1)
[2020-05-01] MEDS: SUCRALFATE SUSP 1GM/10ML UD PO SCH ×3 (06:00→18:05)
[2020-05-01 06:09] LABS: ABG BASE EXCESS -0.3 (-2.0-2.0); ABG HCO3 24.2 MEQ/L (22.0-26.0); ABG PARTIAL PRESSURE CO2 39.2 mmHg (35.0-45.0); ABG PARTIAL PRESSURE O2 116.1 mmHg (75.0-100.0); ABG STANDARD HCO3 24.2 MEQ/L (22.0-26.0); ABG TOTAL CO2 25.4 MEQ/L (23.0-31.0); ABG pH (ARTERIAL) 7.409 UNITS (7.350-7.450)
--- NOTE | 2020-05-01 07:55 | REP ---
INDICATION: ett COMPARISON: 04/29/2020 TECHNIQUE: Portable AP view of the chest FINDINGS: Endotracheal tube approaches the quynh and warrants re-evaluation. Nasogastric tube courses below the left hemidiaphragm in satisfactory position. Cardiac silhouette is stable. Bilateral interstitial prominence suggesting pulmonary vascular congestion is unchanged. New bibasilar opacities suggesting consolidations and possible small pleural effusions are now suspected/increased. No pneumothorax. IMPRESSION: 1. Endotracheal tube approaches the quynh. 2. Subtle increased bibasilar opacities suggesting areas of consolidation and possible small effusions now suggested. 3. Diffuse interstitial prominence raising the possibility of interstitial edema unchanged. <Electronically signed by Young Garcia > 05/01/20 [id number]
[2020-05-01] MEDS ORDERED: PANTOPRAZOLE 40MG VIAL (C9113 PER 1) IV ONE (08:00)
[2020-05-01] MEDS: IPRATROPIUM 0.5MG/ALBUTEROL 2.5MG INH SOL UD 3ML (DUONEB) NEB SCH ×4 (08:01→20:06)
[2020-05-01] MEDS: CHLORHEXIDINE GLUCONATE 0.12 % 15ML UDC (PERIDEX ORAL RINSE) MT SCH ×2 (09:16→22:09)
[2020-05-01] MEDS: PANTOPRAZOLE SODIUM 40 MG in D5W 50 ML IV SCH ×4 (09:16→22:27)
[2020-05-01] MEDS: FUROSEMIDE 100MG/10ML VIAL (J1940) IV SCH ×2 (09:17→17:02)
[2020-05-01] MEDS: CEFEPIME HCL 1 GM in D5W MINI-BAG PLUS 50 ML IV SCH ×2 (11:30→22:27)
--- NOTE | 2020-05-01 11:44 | IPNPDOC ---
Date Seen The patient was seen on 05/01/20. Progress Note SUBJECTIVE: Per nursing, patient continues to have bloody suction via the orogastric tube and tracheal tube. Hemoglobin remained stable. Patient's warfarin has been held and he has been placed on Protonix IV as well as Carafate via the orogastric tube. Per general surgery. Continue with supportive measures for now. No need to do an emergent EGD since hemoglobin and hematocrit and vital signs are stable Patient remains sedated and intubated, diuresed well overnight, but with slow elevation in total CK but creatinine remains at stage III. Unable to obtain review of systems the patient is sedated OBJECTIVE: PHYSICAL EXAMINATION: VITAL SIGNS: See below GEN. APPEARANCE: Sedated with orogastric tube with bloody drainage. Coffee- ground, endotracheal tube. HEENT: Bilateral pinpoint pupils,JVD, no thyromegaly. Dry blood clots on bilateral nares. Dry mucous membranes OG and ET tube CARDIOVASCULAR: S1, S2, irregularly irregular. , Not tachycardic LUNGS: Diminished ABDOMEN: Obese, doughy positive bowel sounds 4 quadrants distended. No rebound, guarding EXTREMITIES: Chronic venous stasis changes, + pitting edema NEURO: Sedated, symmetric LABORATORY DATA: See below. IMAGING: See below MICROBIOLOGY: Please see below. ASSESSMENT: 80-year-old male with history of mechanical aortic valve on chronic warfarin, hypertension, anemia, COPD, CAD, reflux, BLANE was brought in by ambulance after the patient was found unresponsive in his car by his after being up all night sleeping on his chair due to epistaxis and using Q-tips to stop the bleeding. Patient was found to be mumbling by EMS and incomprehensible. He had no tonic-clonic activity and remained confused and mumbling despite multiple Narcan's in the ER, CT of the head was negative for acute intracranial abnormality. Glucose was 121. Ammonia was normal at 15. He was afebrile chest x- ray was negative. Urine and urine tox screen are still pending. Hospitalist was called to admit for altered mental status, found to be in decompensated congestive heart failure with acute hypercapnic respiratory failure requiring intubation and diuresis overnight. Acute CHF exacerbation with preserved systolic function/diastolic dysfunction -Complicated by acute respiratory acidosis and hypercapnic respiratory failure requiring intubation and mechanical ventilation on 04/29/2020 -Ventilatory management by career portals teacher -Diuresis well and remains in negative balance -On IV Lasix 80 mg twice a day fluid restriction 2 L -On strict I's and O's, daily weights Acute hypercarbic respiratory failure with acute Respiratory acidosis -Due to his decompensated congestive heart failure managed with diuresis -Currently intubated, and mechanically ventilated managed by career portals teacher Acute GI bleed -In the setting of chronic warfarin for mechanical aortic valve. Patient's hemoglobin, hematocrit, as well as vital signs remained stable without any acute indication for emergent endoscopy. -If patient requires rbc transfusion, we'll need to consider reversing patient's warfarin. -For now. Patient has been off warfarin currently an IV Protonix drip and Carafate every 6 hours Acute metabolic encephalopathy -Due to acute respiratory acidosis and hypercarbic respiratory failure from decompensated congestive heart failure with preserved systolic function -Currently sedated -On broad-spectrum IV antibiotics until culture results are final Acute on chronic kidney disease stage III -Due to congestive heart failure exacerbation on Lasix diuresis, strict I's and O's, daily weights and fluid restriction. Daily monitoring of BMP Epistaxis -No recurrent episode -Keep O2 sat greater than 90% BLANE noncompliant w cpap Mechanical aortic valve -Held anticoagulation due to active GI bleed. No signs of acute anemia requiring rbc transfusion -CT head negative for acute hemorrhage Hypertension -Controlled -Sedated Chronic anemia/ recent epistaxis -no acute need for rbc transfusion -monitor recurrent epistaxis Hypothyroidism -T4 is normal. No need for supplementation COPD, compensated -Nebulizer -Currently intubated and vented CAD status post stent -Negative troponins code:full diet: npo orogastric tube. Nutrition is consulted VS, I&O, 24H, [facility] Vital Signs/I&O Vital Signs Date Time Temp Pulse Resp B/P (MAP) Pulse Ox O2 Delivery O2 Flow Rate FiO2 05/01/20 11:14 35 05/01/20 11:01 77 149/65 (93) 99 Ventilator 05/01/20 10:01 22 05/01/20 09:31 97.4 04/30/20 11:00 40.0 I&O- Last 24 Hours up to 6 AM 05/01/20 06:00 Intake Total 710.5 ml Output Total 3475 ml Balance -2764.5 ml Laboratory Data 24H LABS Laboratory Tests 2 04/30/20 11:48: Total Creatine Kinase 2158H, Creatine Kinase MB 24.4H, Creatine Kinase MB Relative Index 1.13, Troponin I 0.03# 04/30/20 17:53: Total Creatine Kinase 2357H, Creatine Kinase MB 23.5H, Creatine Kinase MB Relative Index 1.00, Troponin I 0.04# 04/30/20 17:55: Bedside Glucose (Misc Panel) 111H 04/30/20 23:52: Bedside Glucose (Misc Panel) 130H 05/01/20 04:55: Nucleated Red Blood Cells % (auto) 0.0, Prothrombin Time 25.2H, Prothromb Time International Ratio 2.23, Anion Gap 5L, Glomerular Filtration Rate 39.7L, Calcium Level 8.4L 05/01/20 05:58: Blood Gas Bicarbonate Standard 24.2, Arterial Blood pH 7.409, Arterial Blood Partial Pressure CO2 39.2, Arterial Blood Partial Pressure O2 116.1H, Arterial Blood Total CO2 25.4, Arterial Blood HCO3 24.2, Arterial Blood Base Excess -0.3, Arterial Blood Oxygen Saturation 98.0 CBC/BMP Laboratory Tests 05/01/20 04:55 Microbiology Microbiology 04/29/20 Blood Culture - Preliminary, Resulted No growth after 24 hours . All specim... 04/29/20 Blood Culture - Preliminary, Resulted No growth after 24 hours . All specim... 04/29/20 Respiratory Virus Panel (PCR) ([facility]) - Final, Complete KELLEY VACA MD May 01, 2020 11:44
[2020-05-01 12:38] LABS: HEMATOCRIT 33.4 % (42.0-52.0); HEMOGLOBIN 10.5 g/dl (13.5-17.5)
--- NOTE | 2020-05-01 16:07 | CCN ---
CRITICAL CARE NOTE DATE: 05/01/2020 SUBJECTIVE: The patient is seen in the intensive care unit intubated, mechanically ventilated, sedate with propofol, and critically ill. This is hospital day #, endotracheal tube day #2. There are some spontaneous breaths over the mechanically ventilated breaths. Nursing has noted bloody secretions in both the endotracheal tube and the nasogastric tube today. OBJECTIVE: VITAL SIGNS: At bedside, his temperature is 97, pulse rate 76, respirations 19, blood pressure 145/65, and oxygen saturation 98% on 40% FiO2. INTAKE AND OUTPUT: For the past 24 hours 1066 in and 4450 out; since midnight 568 in and 1825 out and he is diuresing well. GENERAL APPEARANCE: At bedside, he is ill-appearing. HEENT: His endotracheal tube is at 24 cm. Orogastric tube is in good position. Secretions are bloody. NECK: Supple. Jugular veins are distended. Carotid upstrokes sluggish. HEART: Sounds are irregular with a prosthetic heart sound. Breath sounds are coarse throughout with scattered rhonchi. ABDOMEN: Soft with intact bowel sounds right lower quadrant. EXTREMITIES: Show pulses x4. There is gross edema of the legs bilaterally. DIAGNOSTIC STUDIES: The white blood cell count is 12.5, hemoglobin is down to 10, hematocrit 31.7. Repeat hemoglobin showed 10.5 and 33.4. Platelet count is 162,000. Electrolytes are sodium 145, potassium 4.2, chloride 110, CO2 of 30, BUN 58, creatinine 1.77 down from 1.84, glucose 120, calcium 8.4. Arterial blood gas show a pH of 7.40, pCO2 of 39, pO2 of 116. Chest x-ray shows better aeration bilaterally and formal report is pending. MEDICATIONS: On medications review, this is day #3 of Cefepime and vancomycin. He is receiving Lasix 80 mg q. 12 hours. Coumadin has been held. There is a Protonix drip. ASSESSMENT AND PLAN: The primary problem requiring critical attention is acute hypoxic hypercarbic respiratory failure. Arterial blood gases are acceptable on the current ventilator settings. Given his fluid status and bleeding diathesis, I am not inclined to further wean him today. Pulmonary edema The patient is responding to diuretics. Mucosal hemorrhage - Hemoglobin and hematocrit are holding at this point. Surgery has been consulted and Coumadin has been stopped. Deep vein thrombosis (DVT) prophylaxis We will begin sequential hose. Ulcer prophylaxis is in place. Nutritional support Tube feedings could be considered if the bloody secretions are controlled. The patient's condition remains critical. Prognosis is guarded. I have reviewed and updated the intensive care unit (ICU) team. CRITICAL CARE TIME: 126 minutes was spent in the provision of bedside critical care and coordination, exclusive of any procedure times.
[2020-05-01 23:16] LABS: HEMATOCRIT 31.8 % (42.0-52.0); HEMOGLOBIN 9.9 g/dl (13.5-17.5)
[2020-05-02] VITALS (29 sets, daily range): BP systolic 125–187; BP diastolic 60–85; O2SAT 93
[2020-05-02] MEDS: SUCRALFATE SUSP 1GM/10ML UD PO SCH ×5 (00:26→23:52)
[2020-05-02] MEDS: VANCOMYCIN HCL 1,000 MG, VIAL MATE ADAPTER 1 EACH in D5W 250 ML IV SCH (00:27)
[2020-05-02] MEDS: PANTOPRAZOLE SODIUM 40 MG in D5W 50 ML IV SCH ×4 (03:58→19:38)
[2020-05-02 04:05] LABS: HEMOGLOBIN 10.6 g/dl (13.5-17.5); MEAN CORPUSCULAR HEMOGLOBIN 33.1 pg (27.0-33.0); MEAN CORPUSCULAR HGB CONC 31.2 g/dl (32.0-36.5); MEAN CORPUSCULAR VOLUME 106.3 fl (80.0-96.0); PLATELET COUNT, AUTOMATED 154 10^3/uL (150-450); WHITE BLOOD COUNT 16.9 10^3/uL (4.0-10.0)
[2020-05-02 04:31] LABS: CALCIUM LEVEL 8.1 MG/DL (8.8-10.2); CREATININE FOR GFR 1.58 MG/DL (0.70-1.30); GLOMERULAR FILTRATION RATE 45.3 (>42); POTASSIUM SERUM 3.7 MEQ/L (3.5-5.1)
[2020-05-02 06:10] LABS: ABG BASE EXCESS 1.9 (-2.0-2.0); ABG HCO3 25.9 MEQ/L (22.0-26.0); ABG O2 SATURATION 98.4 % (95.0-99.0); ABG PARTIAL PRESSURE CO2 37.8 mmHg (35.0-45.0); ABG PARTIAL PRESSURE O2 116.9 mmHg (75.0-100.0); ABG STANDARD HCO3 26.2 MEQ/L (22.0-26.0); ABG pH (ARTERIAL) 7.453 UNITS (7.350-7.450)
[2020-05-02] MEDS: propofoL 1,000 MG in IV 1 EA IV SCH (06:35)
[2020-05-02] MEDS: IPRATROPIUM 0.5MG/ALBUTEROL 2.5MG INH SOL UD 3ML (DUONEB) NEB SCH ×2 (07:20→11:14)
[2020-05-02 07:37] LABS: INR 1.83; PROTHROMBIN TIME 21.6 SECONDS (12.5-14.3)
--- NOTE | 2020-05-02 09:12 | REP ---
INDICATION: ett COMPARISON: 05/01/2020 TECHNIQUE: Portable AP view of the chest FINDINGS: Endotracheal tube appears to be approximately 2.5 cm above the quynh. Nasogastric tube courses below left hemidiaphragm. Stable cardiomegaly. Lung ken demonstrate indistinct pulmonary vasculature, cephalization, and increased interstitial markings along with bibasilar opacities suggesting atelectasis and pleural fluid. Differential diagnosis includes CHF and pneumonia. IMPRESSION: Nonspecific findings similar to prior examination. Differential diagnosis includes CHF and pneumonia. <Electronically signed by Young Garcia > 05/02/20 [id number]
[2020-05-02] MEDS: CHLORHEXIDINE GLUCONATE 0.12 % 15ML UDC (PERIDEX ORAL RINSE) MT SCH (09:21)
[2020-05-02 10:56] LABS: CALCIUM LEVEL 8.2 MG/DL (8.8-10.2); CK-MB VALUE MASS 1.3 NG/ML (<3.6); CREATININE FOR GFR 1.46 MG/DL (0.70-1.30); GLOMERULAR FILTRATION RATE 49.6 (>42); MB/CK RELATIVE INDEX 0.3 (< OR =4); POTASSIUM SERUM 3.6 MEQ/L (3.5-5.1); TROPONIN I 0.04 NG/ML (< 0.10)
--- NOTE | 2020-05-02 11:26 | IPNPDOC ---
Date Seen The patient was seen on 05/02/20. Progress Note SUBJECTIVE: remains sedated and intubated, unable to obtain ROS. off AC due to bloody OG tube, off lasix due to hypernatremia. hemoglobin and blood pressure stable. will start on OG tube feeds to prevent further dehydration. OBJECTIVE: PHYSICAL EXAMINATION: VITAL SIGNS: See below GEN. APPEARANCE: Sedated with orogastric tube with bloody drainage, subsided. HEENT: no thyromegaly. Dry blood clots on bilateral nares. Dry mucous membranes OG and ET tube CARDIOVASCULAR: S1, S2, irregularly irregular. , Not tachycardic LUNGS: Diminished ABDOMEN: Obese, doughy positive bowel sounds 4 quadrants distended. No rebound, guarding EXTREMITIES: Chronic venous stasis changes, + pitting edema NEURO: Sedated, symmetric LABORATORY DATA: See below. IMAGING: See below MICROBIOLOGY: Please see below. ASSESSMENT: 80-year-old male with history of mechanical aortic valve on chronic warfarin, hypertension, anemia, COPD, CAD, reflux, BLANE was brought in by ambulance after the patient was found unresponsive in his car by his after being up all night sleeping on his chair due to epistaxis and using Q-tips to stop the bleeding. Patient was found to be mumbling by EMS and incomprehensible. He had no tonic-clonic activity and remained confused and mumbling despite multiple Narcan's in the ER, CT of the head was negative for acute intracranial abnormality. Glucose was 121. Ammonia was normal at 15. He was afebrile chest x- ray was negative. Urine and urine tox screen are still pending. Hospitalist was called to admit for altered mental status, found to be in decompensated congestive heart failure with acute hypercapnic respiratory failure requiring intubation and diuresis overnight. Acute CHF exacerbation with preserved systolic function/diastolic dysfunction -Complicated by acute respiratory acidosis, hypoxic, adn hypercapnic respiratory failure requiring intubation and mechanical ventilation on 04/29/2020 -Ventilatory management by edi coordinator -diuresed well but iv lasix discontinued due to hypernatremia -On strict I's and O's, daily weights Acute hypercarbic and hypoxic respiratory failure with acute Respiratory acidosis -Due to his decompensated congestive heart failure -s/p lasix now held due to hypernatremia -Currently intubated, and mechanically ventilated managed by edi coordinator Acute GI bleed -In the setting of chronic warfarin for mechanical aortic valve. -Patient's hemoglobin, hematocrit, as well as vital signs remained stable without any acute indication for emergent endoscopy. -If patient requires rbc transfusion, we'll need to consider reversing patient's warfarin. -For now. Patient has been off warfarin currently an IV Protonix drip and Carafate every 6 hours -per surgery Dr. Zavala, hold off on EGD and treat conservatively with protonix gtt since hemoglobin and vitals are stable without persistent bleed and not needing rbc transfusion yet. -continue to monitor hgb and hematocrit. Acute metabolic encephalopathy -Due to acute respiratory acidosis , hypoxia and hypercarbic respiratory failure -due to decompensated congestive heart failure with preserved systolic function -Currently sedated -On broad-spectrum IV antibiotics Acute on chronic kidney disease stage III -Due to congestive heart failure exacerbation on Lasix diuresis, strict I's and O's, daily weights and fluid restriction. Daily monitoring of BMP ?Pneumonia -Bilateral infiltrates persistent on CXR , diuresed for the past 3 days but with increased wbc low grade temp 100.0 -on day #3 vancomycine and cefepime -obtain ET tube culture and sensitivity Epistaxis -No recurrent episode -Keep O2 sat greater than 90% BLANE noncompliant w cpap Mechanical aortic valve -Held anticoagulation due to active GI bleed. No signs of acute anemia requiring rbc transfusion -CT head negative for acute hemorrhage Hypertension -Controlled -Sedated Chronic anemia/ recent epistaxis/bloody OG tube GI bleed -no acute need for rbc transfusion -monitor recurrent epistaxis Hypothyroidism -T4 is normal. No need for supplementation COPD, compensated -Nebulizer -Currently intubated and vented CAD status post stent -Negative troponins code:full diet: npo orogastric tube. Nutrition is consulted. will need to start tube feedings. VS, I&O, 24H, [facility] Vital Signs/I&O Vital Signs Date Time Temp Pulse Resp B/P (MAP) Pulse Ox O2 Delivery O2 Flow Rate FiO2 05/02/20 10:01 89 22 140/63 (88) 97 Ventilator 40 05/02/20 08:00 97.0 04/30/20 11:00 40.0 I&O- Last 24 Hours up to 6 AM 05/02/20 06:00 Intake Total 996.0 ml Output Total 2825 ml Balance -1829.0 ml Laboratory Data 24H LABS Laboratory Tests 2 05/01/20 11:39: Bedside Glucose (Misc Panel) 153H 05/01/20 18:21: Bedside Glucose (Misc Panel) 143H 05/01/20 22:58: Vancomycin Level Trough 10.5 05/02/20 00:07: Bedside Glucose (Misc Panel) 137H 05/02/20 03:59: Nucleated Red Blood Cells % (auto) 0.0, Prothrombin Time 21.6H, Prothromb Time International Ratio 1.83, Anion Gap 5L, Glomerular Filtration Rate 45.3, Calcium Level 8.1L 05/02/20 05:27: Bedside Glucose (Misc Panel) 133H 05/02/20 05:43: Blood Gas Bicarbonate Standard 26.2H, Arterial Blood pH 7.453H, Arterial Blood Partial Pressure CO2 37.8, Arterial Blood Partial Pressure O2 116.9H, Arterial Blood Total CO2 27.0, Arterial Blood HCO3 25.9, Arterial Blood Base Excess 1.9, Arterial Blood Oxygen Saturation 98.4 05/02/20 09:48: CBC/BMP Laboratory Tests 05/01/20 11:55 05/01/20 22:58 05/02/20 03:59 Microbiology Microbiology 04/29/20 Blood Culture - Preliminary, Resulted No Growth after 48 hours. All Specime... 04/29/20 Blood Culture - Preliminary, Resulted No Growth after 48 hours. All Specime... 04/29/20 Respiratory Virus Panel (PCR) ([facility]) - Final, Complete KELLEY VACA MD May 02, 2020 11:12
[2020-05-02] MEDS: CEFEPIME HCL 1 GM in D5W MINI-BAG PLUS 50 ML IV SCH ×2 (11:55→22:13)
[2020-05-02 13:05] LABS: HEMATOCRIT 32.6 % (42.0-52.0); HEMOGLOBIN 9.9 g/dl (13.5-17.5)
[2020-05-02] MEDS ORDERED: VANCOMYCIN HCL 750 MG, VIAL MATE ADAPTER 1 EACH in D5W 250 ML IV SCH (17:00)
[2020-05-02] MEDS: NITROGLYCERIN 2% OINT 1 GM *U/D* PKT TOP SCH ×2 (17:28→22:13)
[2020-05-02] MEDS: hydrALAZINE 20MG/ML 1ML VIAL (J0360 PER 20MG) IV PRN (17:29)
[2020-05-02] MEDS ORDERED: VANCOMYCIN HCL 500 MG in D5W MINI-BAG PLUS 100 ML IV SCH (18:00)
[2020-05-02] MEDS ORDERED: FUROSEMIDE 100MG/10ML VIAL (J1940) IV ONE (18:00)
--- NOTE | 2020-05-02 18:09 | REP ---
INDICATION: sob COMPARISON: 05/02/2020 at 8:55 a.m. TECHNIQUE: Portable AP view of the chest FINDINGS: The mediastinum and cardiac silhouette are stable with cardiomegaly again suggested. Endotracheal tube and nasogastric tube have been removed. The lung ken demonstrate suspected increasing bibasilar opacities (left greater than right) along with increased interstitial markings. IMPRESSION: Endotracheal and nasogastric tube have been removed. Findings suggest increased basilar opacities (left greater than right). Differential diagnosis includes multifocal pneumonia as well as possible CHF <Electronically signed by Young Garcia > 05/02/20 [id number]
[2020-05-02 18:19] LABS: CALCIUM LEVEL 8.4 MG/DL (8.8-10.2); CREATININE FOR GFR 1.36 MG/DL (0.70-1.30); GLOMERULAR FILTRATION RATE 53.8 (>42); POTASSIUM SERUM 3.7 MEQ/L (3.5-5.1)
[2020-05-03] VITALS (16 sets, daily range): BP systolic 141–171; BP diastolic 65–107
[2020-05-03] MEDS: PANTOPRAZOLE SODIUM 40 MG in D5W 50 ML IV SCH ×2 (00:22→04:28)
[2020-05-03 00:24] LABS: CALCIUM LEVEL 9.2 MG/DL (8.8-10.2); CREATININE FOR GFR 1.42 MG/DL (0.70-1.30); GLOMERULAR FILTRATION RATE 51.2 (>42); POTASSIUM SERUM 3.4 MEQ/L (3.5-5.1)
[2020-05-03 00:25] LABS: HEMATOCRIT 32.7 % (42.0-52.0); HEMOGLOBIN 10.1 g/dl (13.5-17.5)
[2020-05-03] MEDS: NITROGLYCERIN 2% OINT 1 GM *U/D* PKT TOP SCH ×6 (01:16→22:26)
[2020-05-03] MEDS: KCL 10MEQ/100ML SWI (KRUN) 10 MEQ in IV 1 EA IV SCH ×5 (01:19→12:32)
[2020-05-03 01:22] LABS: ABG BASE EXCESS 3.3 (-2.0-2.0); ABG HCO3 26.3 MEQ/L (22.0-26.0); ABG O2 SATURATION 97.9 % (95.0-99.0); ABG PARTIAL PRESSURE CO2 34.3 mmHg (35.0-45.0); ABG PARTIAL PRESSURE O2 105.5 mmHg (75.0-100.0); ABG STANDARD HCO3 27.4 MEQ/L (22.0-26.0); ABG TOTAL CO2 27.3 MEQ/L (23.0-31.0); ABG pH (ARTERIAL) 7.502 UNITS (7.350-7.450)
[2020-05-03] MEDS: hydrALAZINE 20MG/ML 1ML VIAL (J0360 PER 20MG) IV PRN ×2 (02:17→09:41)
[2020-05-03] MEDS: SUCRALFATE SUSP 1GM/10ML UD PO SCH ×4 (05:37→23:56)
[2020-05-03 06:02] LABS: HEMOGLOBIN 10.1 g/dl (13.5-17.5); MEAN CORPUSCULAR HEMOGLOBIN 32.9 pg (27.0-33.0); MEAN CORPUSCULAR HGB CONC 30.6 g/dl (32.0-36.5); MEAN CORPUSCULAR VOLUME 107.5 fl (80.0-96.0); PLATELET COUNT, AUTOMATED 168 10^3/uL (150-450); RED BLOOD COUNT 3.07 10^6/uL (4.30-6.10)
[2020-05-03 06:33] LABS: CALCIUM LEVEL 8.9 MG/DL (8.8-10.2); CREATININE FOR GFR 1.35 MG/DL (0.70-1.30); GLOMERULAR FILTRATION RATE 54.3 (>42); POTASSIUM SERUM 3.2 MEQ/L (3.5-5.1)
[2020-05-03 06:41] LABS: INR 1.68; PROTHROMBIN TIME 20.1 SECONDS (12.5-14.3)
--- NOTE | 2020-05-03 07:15 | ECHO ---
DATE OF PROCEDURE: 04/30/2020 Age: 80 Gender: Male Height: 72 inches Weight: 266 pounds Body surface area: 2.4 m2 PATIENT LOCATION: Inpatient PCU, Room 3217. REFERRING PHYSICIAN: Antionette Nix MD INDICATIONS: Syncope. Prosthetic aortic valve. Atrial fibrillation. MEASUREMENTS: 2D Measurements: RV 5.6 cm LV 5.0 cm Septum 1.4 cm Posterior wall 1.3 cm Aortic Root 3.5 cm LA 6.2 cm LVEF 75% Doppler Measurements: AV 3.16 m/s LVOT 0.97 m/s LVOT diameter 2.1 cm Mean AV systolic gradient 26 mmHg Dimensionless index 0.29 MV-E 120 Early mitral deceleration time 180 msec E prime medial 6, E prime lateral 10 Average E/E prime ratio 15/PCWP - 20 mmHg PV 1.1 m/s Pulmonary artery acceleration time 92 msec RVSP 65 mmHg IVC 2.5 cm COMMENTS: Underlying atrial fibrillation with controlled ventricular response. No intraventricular conduction disturbance. Occasional isolated PVCs. Technically challenging study in light of the patients body habitus, but diagnostically useful information was still obtained. M-mode and two-dimensional echocardiography was performed with pulse, continuous wave, color flow, and tissue Doppler studies. Mild symmetrical left ventricular wall thickening with hyperkinetic wall motion. Grossly dilated left atrium with current estimated mean left atrial pressure that was at least mildly increased. Prominently dilated right heart chambers with right ventricular free wall hypokinesis and Doppler evidence of severe pulmonary hypertension. Prominently dilated IVC with absent respiratory collapse in keeping with right heart failure. Normal aortic dimensions. Mechanical prosthetic aortic valve with appropriate function. Mild degenerative changes of the mitral valve apparatus with adequate leaflet excursion and no posterior systolic buckling, but at least moderate insufficiency. Normal appearing tricuspid valve with at least moderate insufficiency. No apparent intracardiac mass or pericardial effusion. MTDD
[2020-05-03] MEDS: PANTOPRAZOLE 40MG VIAL (C9113 PER 1) IV SCH ×2 (09:34→22:18)
--- NOTE | 2020-05-03 09:52 | CCN ---
CRITICAL CARE NOTE DATE: 05/02/2020 The patient is seen in the intensive care unit, intubated, mechanically ventilated, critically ill, this is hospital day #4, endotracheal tube day #4. Over the past 24 hours, bleeding from his nasogastric (NG) tube and endogastric (EG) tube has subsided. At bedside, his temperature is 97, maximum temperature (T-max) for the past 24 hours 100, pulse rate 89, respirations 22, blood pressure 140/63, oxygen saturation of 97% is the result of 40% oxygen. His intake and output for the past 24 hours: 926 in, 3125 out, since midnight 695 in, 500 out. At bedside, he is ill-appearing, somewhat cachectic, his oral mucosa is pink. The endotracheal tube is at 24 cm. Orogastric tube is draining bilious material. There is no stridor, no adenopathy. Heart sounds are irregularly irregular with a prosthetic sound. Breath sounds are coarse expiratory phase, somewhat prolonged. Abdomen is soft. Extremities show decreased tone consistent with sedation. DIAGNOSTIC STUDIES: His white cell count is 16.9, hemoglobin is 10.6, hematocrit 34, platelet count 154,000. Electrolytes are sodium 149, potassium 3.6, chloride 112, CO2 32, BUN 44, creatinine down to 1.46, glucose 135, his CPK is 439, beta natriuretic peptide remains elevated at 5000. Chest x-ray was reviewed and the tubes and lines are in good position, there is no new infiltrate. On review of medications, this is day #3 of cefepime, day #3 of vancomycin, he is on a propofol drip. The primary problems requiring critical attention is: Hypoxic respiratory failure. Given his response to diuretics, his gas exchange has improved, will proceed with weaning and attempt to extubate to an aerosol mask. Pulmonary edema. The beta natriuretic peptide is still quite elevated. He is likely to need additional diuresis. Mucosal hemorrhage. Hemoglobin and hematocrit seems better. The bleeding appears to have resolved with conservative therapy. Deep venous thrombosis (DVT) prophylaxis is being addressed now with sequential hose until his bleeding diathesis can be sorted out. Ulcer prophylaxis is being addressed with Protonix. 97 minutes was spent in the provision of bedside critical care and coordination among services in the intensive care unit (ICU) team exclusive of any time for procedures.
--- NOTE | 2020-05-03 10:02 | IPNPDOC ---
Date Seen The patient was seen on 05/03/20. Progress Note SUBJECTIVE: extubated 05/02/20 but aspiration risk. no hematemesis or recurrent epistaxis. still confused. unable to do ROS. OBJECTIVE: PHYSICAL EXAMINATION: VITAL SIGNS: See below GEN. APPEARANCE: aaox1 person only. confused. no respiratory distress HEENT: no thyromegaly. Dry blood clots on bilateral nares. Dry mucous membranes chapped lips with dried blood on his lips CARDIOVASCULAR: S1, S2, irregularly irregular, Not tachycardic LUNGS: Diminished rhonchi ABDOMEN: Obese, doughy positive bowel sounds 4 quadrants distended. No rebound, guarding EXTREMITIES: Chronic venous stasis changes, 2+ pitting edema b/l NEURO: aaox 1, face is symmetric, tongue midline, too weak and confused to fol low commands, but with purposeful movements. negative babinski. LABORATORY DATA: See below. IMAGING: See below MICROBIOLOGY: Please see below. ASSESSMENT: 80-year-old male with history of mechanical aortic valve on chronic warfarin, hypertension, anemia, COPD, CAD, reflux, BLANE was brought in by ambulance after the patient was found unresponsive in his car by his after being up all night sleeping on his chair due to epistaxis and using Q-tips to stop the bleeding. Patient was found to be mumbling by EMS and incomprehensible. He had no tonic-clonic activity and remained confused and mumbling despite multiple Narcan's in the ER, CT of the head was negative for acute intracranial abno rmality. Glucose was 121. Ammonia was normal at 15. He was afebrile chest x-ray was negative. Urine and urine tox screen are still pending. Hospitalist was called to admit for altered mental status, found to be in decompensated congestive heart failure with acute hypercapnic respiratory failure requiring intubation and diuresis overnight. Acute CHF exacerbation with preserved systolic function/diastolic dysfunction -Complicated by acute respiratory acidosis, hypoxic, and hypercapnic respiratory failure requiring intubation and mechanical ventilation on 04/29/2020 -s/p intubation on admission -extubated 05/02/20 -still fluid overloaded, but npo for now due to aspiration risk. -iv lasix bid. monitor for hypernatremia -On strict I's and O's, daily weights Acute hypercarbic and hypoxic respiratory failure with acute Respiratory acidosis -Due to his decompensated congestive heart failure -resolved with intubation and mechanical ventilation -exutbated 05/02/20 Acute metabolic encephalopathy -s/p extubation -secondary to pna and chf -since off warfarin for gi bleed, concern for cva due to mechanical aortic valve -check stat ct head w/o contrast -continue abx until negative cultures finalized Acute GI bleed -In the setting of chronic warfarin for mechanical aortic valve. -Patient's hemoglobin, hematocrit, as well as vital signs remained stable without any acute indication for emergent endoscopy. -For now. Patient has been off warfarin -on ppi and carafate -per surgery Dr. Zavala, hold off on EGD and treat conservatively -speech eval today for aspiration risk Hypokalemia -iv supplement due to npo for speech eval for aspiration Acute on chronic kidney disease stage III -Due to congestive heart failure exacerbation on Lasix diuresis, strict I's and O's, daily weights and fluid restriction. Daily monitoring of BMP ?Pneumonia -Bilateral infiltrates persistent on CXR , diuresed -on day #4 vancomycine and cefepime -awaiting sputum culture-if negative dc abx. Epistaxis -No recurrent episode -Keep O2 sat greater than 90% BLANE noncompliant w cpap Mechanical aortic valve -Held anticoagulation due to active GI bleed. No signs of acute anemia requiring rbc transfusion -CT head negative for acute hemorrhage on admission -repeat stat ct w/o contrast since confused w/o ac to rule out cva Hypertension -unControlled -await speech eval before resuming po meds -nitro ointment q4hrs Chronic anemia/ recent epistaxis/bloody OG tube GI bleed -no acute need for rbc transfusion -monitor recurrent epistaxis Hypothyroidism -T4 is normal. No need for supplementation COPD, compensated -Nebulizer CAD status post stent -Negative troponins code:full aru screen compression stockings for now until gi bleed stable. VS, I&O, 24H, Fishbone Vital Signs/I&O Vital Signs Date Time Temp Pulse Resp B/P (MAP) Pulse Ox O2 Delivery O2 Flow Rate FiO2 05/03/20 09:41 171/77 05/03/20 06:01 91 26 96 Nasal Cannula 2.0 05/03/20 04:01 97.8 05/02/20 17:13 40 I&O- Last 24 Hours up to 6 AM 05/03/20 06:00 Intake Total 923 ml Output Total 3725 ml Balance -2802 ml Laboratory Data 24H LABS Laboratory Tests 2 05/02/20 17:38: Anion Gap 6L, Glomerular Filtration Rate 53.8, Calcium Level 8.4L 05/02/20 23:51: Anion Gap 2L, Glomerular Filtration Rate 51.2, Calcium Level 9.2, Whole Blood Ionized Calcium 4.4L, Magnesium Level 3.0H 05/03/20 00:19: Bedside Glucose (Misc Panel) 145H 05/03/20 01:06: Blood Gas Bicarbonate Standard 27.4H, Arterial Blood pH 7.502H, Arterial Blood Partial Pressure CO2 34.3L, Arterial Blood Partial Pressure O2 105.5H, Arterial Blood Total CO2 27.3, Arterial Blood HCO3 26.3H, Arterial Blood Base Excess 3.3H, Arterial Blood Oxygen Saturation 97.9 05/03/20 05:45: Nucleated Red Blood Cells % (auto) 0.0, Prothrombin Time 20.1H, Prothromb Time International Ratio 1.68, Bedside Glucose (Misc Panel) 116H, Anion Gap 7L, Glomerular Filtration Rate 54.3, Calcium Level 8.9 CBC/BMP Laboratory Tests 05/02/20 12:50 05/02/20 17:38 05/02/20 23:51 05/03/20 05:45 Microbiology Microbiology 05/02/20 Gram Stain - Final, Resulted 05/02/20 Sputum Culture, Resulted Pending 04/29/20 Blood Culture - Preliminary, Resulted No Growth after 72 hours. All specime... 04/29/20 Blood Culture - Preliminary, Resulted No Growth after 72 hours. All specime... 04/29/20 Respiratory Virus Panel (PCR) ([facility]) - Final, Complete KELLEY VACA MD May 03, 2020 10:02
--- NOTE | 2020-05-03 10:31 | REP ---
INDICATION: off warfarin mechanical aortic valve gibleed ams COMPARISON: 04/30/2020 TECHNIQUE: Axial noncontrast images from the skull base to the thoracic inlet with coronal reformations. This CT examination was performed using the following dose reduction techniques: Automated exposure control, adjustment of mA and/or kv according to the patient's size, and use of iterative reconstruction technique. FINDINGS: Age-related atrophy and microvascular ischemic changes are appreciated. The ventricles and sulci are symmetric. Peñaloza-white differentiation is maintained. There is no evidence for acute intracranial hemorrhage, mass/mass effect, pathology or infarction. No extra-axial fluid collection. Calvarium is intact. Paranasal sinuses and mastoid air cells are clear. IMPRESSION: Age related atrophy and microvascular ischemic changes. No acute intracranial hemorrhage, infarction, or mass/mass effect. <Electronically signed by Young Garcia > 05/03/20 1024
[2020-05-03] MEDS: CEFEPIME HCL 1 GM in D5W MINI-BAG PLUS 50 ML IV SCH (11:19)
[2020-05-03 12:17] LABS: HEMATOCRIT 34.3 % (42.0-52.0); HEMOGLOBIN 10.4 g/dl (13.5-17.5)
[2020-05-03] MEDS: KCL 40MEQ IN D5/0.45NS 1000ML 1,000 ML IV SCH (14:19)
[2020-05-03 17:16] LABS: CALCIUM LEVEL 8.9 MG/DL (8.8-10.2); CREATININE FOR GFR 1.25 MG/DL (0.70-1.30); GLOMERULAR FILTRATION RATE 59.3 (>42); POTASSIUM SERUM 3.4 MEQ/L (3.5-5.1)
[2020-05-03] MEDS: VANCOMYCIN HCL 1,000 MG, VIAL MATE ADAPTER 1 EACH in D5W 250 ML IV SCH (17:39)
[2020-05-03] MEDS: VANCOMYCIN HCL 500 MG in D5W MINI-BAG PLUS 100 ML IV SCH (19:44)
[2020-05-04] VITALS: BP 162/68
[2020-05-04] MEDS: CEFEPIME HCL 1 GM in D5W MINI-BAG PLUS 50 ML IV SCH ×3 (00:05→22:47)
[2020-05-04 00:18] LABS: HEMATOCRIT 32.8 % (42.0-52.0)
[2020-05-04] MEDS: NITROGLYCERIN 2% OINT 1 GM *U/D* PKT TOP SCH ×6 (02:57→21:41)
[2020-05-04 04:00] VITALS: BP 160/52
[2020-05-04 05:59] LABS: HEMATOCRIT 33.3 % (42.0-52.0); HEMOGLOBIN 10.1 g/dl (13.5-17.5); MEAN CORPUSCULAR HEMOGLOBIN 33.1 pg (27.0-33.0); MEAN CORPUSCULAR HGB CONC 30.3 g/dl (32.0-36.5); MEAN CORPUSCULAR VOLUME 109.2 fl (80.0-96.0); PLATELET COUNT, AUTOMATED 190 10^3/uL (150-450); RED BLOOD COUNT 3.05 10^6/uL (4.30-6.10); WHITE BLOOD COUNT 11.7 10^3/uL (4.0-10.0)
[2020-05-04] MEDS: SUCRALFATE SUSP 1GM/10ML UD PO SCH ×3 (06:00→17:52)
[2020-05-04 06:18] LABS: INR 1.84; PROTHROMBIN TIME 21.6 SECONDS (12.5-14.3)
[2020-05-04 06:25] LABS: CALCIUM LEVEL 9.1 MG/DL (8.8-10.2); CREATININE FOR GFR 1.33 MG/DL (0.70-1.30); GLOMERULAR FILTRATION RATE 55.2 (>42); POTASSIUM SERUM 3.7 MEQ/L (3.5-5.1)
[2020-05-04 08:00] VITALS: BP 166/77
[2020-05-04] MEDS ORDERED: PREVNAR 13 VACCINE SYRINGE IM ONE (09:00)
[2020-05-04] MEDS: KCL 40MEQ IN D5/0.45NS 1000ML 1,000 ML IV SCH (09:30)
[2020-05-04] MEDS: PANTOPRAZOLE 40MG VIAL (C9113 PER 1) IV SCH ×2 (09:30→21:23)
[2020-05-04] MEDS ORDERED: LIDOCAINE 1% MDV 20ML VIAL As Ordered ONE (11:30)
[2020-05-04 12:00] VITALS: BP 160/75
[2020-05-04 12:59] LABS: HEMATOCRIT 34.8 % (42.0-52.0); HEMOGLOBIN 10.7 g/dl (13.5-17.5)
[2020-05-04 16:00] VITALS: BP 150/62
[2020-05-04] MEDS: VANCOMYCIN HCL 1,000 MG, VIAL MATE ADAPTER 1 EACH in D5W 250 ML IV SCH (18:07)
--- NOTE | 2020-05-04 18:40 | REP ---
PROCEDURE NAME: PICC LINE INSERTION W/SITERITE CLINICAL INFORMATION: TPN. COMPARISON: None. PROCEDURE DESCRIPTION: The procedure was performed by EDMOND Gonzales, under the direct supervision of Dr. Peñaloza. The risks and benefits of the procedure were explained to the patient and an informed consent was obtained both verbally and written. Directly prior to the start of the procedure a formal time-out was completed in the procedure room. The left basilic vein was localized using ultrasound guidance. The skin was prepped and draped in sterile fashion. One mL of 1% lidocaine 10 mg/mL was used as a local anesthetic. Using ultrasound guidance the left basilic vein was cannulated, and a 0.018 guidewire was inserted and advanced to the level of SVC using fluoroscopic guidance. The needle was removed and a 5.5 Mosotho dilator and peel-away sheath was inserted over the guidewire. A 5.5 Mosotho dual lumen catheter was cut to a length of 50 cm. The dilator was removed and the catheter was inserted over the guidewire with the tip ending at the level of the SVC. The peel-away sheath was removed and the catheter was flushed with heparinized saline as per hospital protocol. The catheter was affixed to the skin and a sterile dressing was applied. The patient tolerated the procedure well and there were no immediate complications. CONCLUSION: PICC line insertion into the left basilic vein. 0.1 minutes of fluoroscopy time was utilized for this procedure. Some fluoroscopic images are performed with last image hold technology. These images require no additional radiation. <Electronically signed by Jessica Villanueva > 05/04/20 [id number] <Electronically signed by Tanmay Peñaloza > 05/04/20 1836
[2020-05-04] MEDS: VANCOMYCIN HCL 500 MG in D5W MINI-BAG PLUS 100 ML IV SCH (19:50)
[2020-05-04 20:00] VITALS: BP 148/64
[2020-05-04] MEDS: SODIUM CHLORIDE 0.9% INJ 10 ML SYR IV SCH (21:23)
--- NOTE | 2020-05-04 22:57 | IPNPDOC ---
Subjective Date Seen The patient was seen on 05/04/20. Subjective Chief Complaint/HPI Mr. Roy is a 80 year old male with mechanical aortic valve who is here with acute hypoxic, hypercapnic respiratory failure and AMS. He was extubated on 05/02/2020. This morning, he was lethargic, but denied any chest pain or shortness of breath. Objective Physical Examination General Exam: Positive: Cooperative; Negative: Alert Eye Exam: Negative: Sclera icteric Chest Exam: Positive: Rhonchi, Diminished Heart Exam: Positive: Rate Normal, Irregular Rhythm Abdomen Exam: Positive: Normal bowel sounds, Soft Extremity Exam: Positive: Edema (Bilatera pitting) Psych Exam: Negative: Mental status NL Assessment /Plan Assessment Mr. Roy is a 80 year old male with mechanical aortic valve who is here with acute hypoxic, hypercapnic respiratory failure and AMS. He has weaned down to 1L of NC. Still confused this morning. Otherwise, continues with TPN as NPO due to bleed from OG tube and lethargy. Pending ability to restart diet and restart Warfarin Plan/VTE VTE Prophylaxis Ordered?: Yes Plan 1. Acute hypoxic and hypercapnic respiratory failure -Due to acute CHF exacerbation -Extubated on 05/02/20 2. Acute CHF exacerbation -Preserved systolic function/Diastolic dysfunction -I/O's and daily weights -Lasix held for hypernatremia 3. Hypernatremia -May be from dehydration -Unable to tolerate oral diet -On TPN -Monitor BMP 4. Acute GI bleed -In the setting of chronic warfarin for mechanical aortic valve -H&H has been stable off of warfarin -On PPI and Carafate 5. Acute metabolic encephalopathy -Secondary to PNA and CHF -No safe diet due to the lethargy. 6. Pneumonia -CXR demonstrates bilateral infiltrates -On Vancomycin and Cefepime 7. Hypokalemia -Has not tolerate oral diet -IV supplement 8. Acute on chronic kidney disease stage III -Due to CHF on Lasix -I&O's and daily weights -Monitor BMP 9. Mechanical aortic valve -Anticoagulation held due to GI bleed -Will need to restart anticoagulation when available 10. DVT ppx -No chemical ppx due to GI bleed Disposition: Will need rehab when medical stable. Pending resolution of bleed, restarting diet, and restarting warfarin. VS, I&O, 24H, Fishbone Vital Signs/I&O Vital Signs Date Time Temp Pulse Resp B/P (MAP) Pulse Ox O2 Delivery O2 Flow Rate FiO2 05/04/20 21:41 181/85 05/04/20 20:00 97.7 60 20 93 Nasal Cannula 1.0 05/02/20 17:13 40 I&O- Last 24 Hours up to 6 AM 05/04/20 06:00 Intake Total 1300 ml Output Total 2050 ml Balance -750 ml Laboratory Data 24H LABS Laboratory Tests 2 05/04/20 00:31: Bedside Glucose (Misc Panel) 109 05/04/20 05:28: Nucleated Red Blood Cells % (auto) 0.0, Prothrombin Time 21.6H, Prothromb Time International Ratio 1.84, Anion Gap 4L, Glomerular Filtration Rate 55.2, Calcium Level 9.1 05/04/20 13:12: Bedside Glucose (Misc Panel) 113H 05/04/20 16:54: Vancomycin Level Trough 15.3 05/04/20 17:12: Bedside Glucose (Misc Panel) 105 CBC/BMP Laboratory Tests 05/03/20 23:45 05/04/20 05:28 05/04/20 12:47 Microbiology Microbiology 05/02/20 Gram Stain - Final, Complete 05/02/20 Sputum Culture - Final, Complete Staphylococcus Aureus 04/29/20 Blood Culture - Preliminary, Resulted No Growth after 72 hours. All specime... 04/29/20 Blood Culture - Preliminary, Resulted No Growth after 72 hours. All specime... 04/29/20 Respiratory Virus Panel (PCR) ([facility]) - Final, Complete TRINY FRAZIER DO May 04, 2020 22:57
[2020-05-05] VITALS: BP 154/78
[2020-05-05] MEDS: NITROGLYCERIN 2% OINT 1 GM *U/D* PKT TOP SCH ×6 (02:38→22:39)
[2020-05-05] MEDS: KCL 40MEQ IN D5/0.45NS 1000ML 1,000 ML IV SCH (02:38)
[2020-05-05 03:09] LABS: HEMATOCRIT 33.5 % (42.0-52.0); HEMOGLOBIN 10.1 g/dl (13.5-17.5)
[2020-05-05 04:00] VITALS: BP 142/82
[2020-05-05] MEDS: SUCRALFATE SUSP 1GM/10ML UD PO SCH ×4 (06:00→13:58)
[2020-05-05] MEDS: SODIUM CHLORIDE 0.9% INJ 10 ML SYR IV SCH ×2 (06:09→17:21)
[2020-05-05 06:44] LABS: HEMATOCRIT 33.6 % (42.0-52.0); MEAN CORPUSCULAR HEMOGLOBIN 32.7 pg (27.0-33.0); MEAN CORPUSCULAR HGB CONC 29.8 g/dl (32.0-36.5); MEAN CORPUSCULAR VOLUME 109.8 fl (80.0-96.0); PLATELET COUNT, AUTOMATED 187 10^3/uL (150-450); RED BLOOD COUNT 3.06 10^6/uL (4.30-6.10); WHITE BLOOD COUNT 10.7 10^3/uL (4.0-10.0)
[2020-05-05 07:03] LABS: CALCIUM LEVEL 9.2 MG/DL (8.8-10.2); CREATININE FOR GFR 1.45 MG/DL (0.70-1.30)
[2020-05-05 07:07] LABS: INR 2.24; PROTHROMBIN TIME 25.3 SECONDS (12.5-14.3)
[2020-05-05 07:22] VITALS: BP 157/74
[2020-05-05] MEDS: PANTOPRAZOLE 40MG VIAL (C9113 PER 1) IV SCH ×2 (08:17→20:24)
[2020-05-05] MEDS: D5W 1,000 ML IV SCH ×3 (08:17→22:19)
[2020-05-05] MEDS ORDERED: SLF 3 ML SYR IV PRN (09:15)
[2020-05-05] MEDS: CEFEPIME HCL 1 GM in D5W MINI-BAG PLUS 50 ML IV SCH ×2 (10:56→22:38)
[2020-05-05] MEDS: SLF 3 ML SYR IV SCH ×2 (10:57→22:09)
[2020-05-05 12:00] VITALS: BP 141/72
[2020-05-05 12:38] LABS: HEMOGLOBIN 10.2 g/dl (13.5-17.5)
[2020-05-05 13:11] LABS: CALCIUM LEVEL 9.3 MG/DL (8.8-10.2); CREATININE FOR GFR 1.42 MG/DL (0.70-1.30); GLOMERULAR FILTRATION RATE 51.2 (>42)
[2020-05-05 16:00] VITALS: BP 158/73
[2020-05-05 16:32] LABS: CALCIUM LEVEL 8.6 MG/DL (8.8-10.2); CREATININE FOR GFR 1.41 MG/DL (0.70-1.30); GLOMERULAR FILTRATION RATE 51.6 (>42); POTASSIUM SERUM 3.9 MEQ/L (3.5-5.1)
[2020-05-05 18:06] LABS: CREATININE,RANDOM URINE 80.3 MG/DL
[2020-05-05] MEDS: VANCOMYCIN HCL 1,000 MG, VIAL MATE ADAPTER 1 EACH in D5W 250 ML IV SCH (18:10)
[2020-05-05] MEDS ORDERED: D5W 500 ML IV ONE (18:30)
--- NOTE | 2020-05-05 19:16 | IPNPDOC ---
Subjective Date Seen The patient was seen on 05/05/20. Subjective Chief Complaint/HPI Mr. Roy is a 80 year old male with mechanical aortic valve who is here with acute hypoxic, hypercapnic respiratory failure and AMS. He was extubated on 05/02/2020. This morning, he was lethargic, but denied any chest pain or dyspnea. Hyponatremic continue to worsen despite D5W. Consulted nephrology, recommendations appreciated. Objective Physical Examination General Exam: Positive: Cooperative; Negative: Alert Eye Exam: Negative: Sclera icteric Chest Exam: Positive: Rhonchi, Diminished Heart Exam: Positive: Rate Normal, Irregular Rhythm Abdomen Exam: Positive: Normal bowel sounds, Soft Extremity Exam: Positive: Edema (Bilatera pitting) Psych Exam: Negative: Mental status NL Assessment /Plan Assessment Mr. Roy is a 80 year old male with mechanical aortic valve who is here with acute hypoxic, hypercapnic respiratory failure and AMS. He has weaned down to 1L of NC. Still confused this morning. Otherwise, continues with NPO due to bleed from OG tube and lethargy. Pending ability to restart diet and restart Warfarin. Otherwise, patient is hypernatremic despite D5W. Nephrology consulted, recommendations appreciated. Patient has a 9L free water deficit. Plan/VTE VTE Prophylaxis Ordered?: Yes Plan 1. Acute hypoxic and hypercapnic respiratory failure -Due to acute CHF exacerbation -Extubated on 05/02/20 2. Acute CHF exacerbation -Preserved systolic function/Diastolic dysfunction -I/O's and daily weights -Lasix held for hypernatremia 3. Hypernatremia -Nephrology consulted, recommendations appreciated -Patient is 9L free water behind -On D5W and frequent BMP checks 4. Acute GI bleed -In the setting of chronic warfarin for mechanical aortic valve -H&H has been stable off of warfarin -On PPI and Carafate 5. Acute metabolic encephalopathy -Secondary to PNA and CHF -No safe diet due to the lethargy. 6. Pneumonia -CXR demonstrates bilateral infiltrates -On Vancomycin and Cefepime 7. Hypokalemia -Has not tolerate oral diet -IV supplement 8. Acute on chronic kidney disease stage III -Due to CHF on Lasix -I&O's and daily weights -Monitor BMP 9. Mechanical aortic valve -Anticoagulation held due to GI bleed -Will need to restart anticoagulation when available 10. DVT ppx -No chemical ppx due to GI bleed Disposition: Will need rehab when medical stable. Pending resolution of hypernatremia, bleed, restarting diet, and restarting warfarin. [facility]O, [facility] Vital Signs Date Time Temp Pulse Resp B/P (MAP) Pulse Ox O2 Delivery O2 Flow Rate FiO2 05/05/20 17:20 158/73 05/05/20 16:00 99.3 86 22 94 Nasal Cannula 1.0 05/02/20 17:13 40 I&O- Last 24 Hours up to 6 AM 05/05/20 06:00 Intake Total 740 ml Output Total 2300 ml Balance -1560 ml Laboratory Data 24H LABS Laboratory Tests 2 05/05/20 02:54: Bedside Glucose (Misc Panel) 110 05/05/20 06:19: Nucleated Red Blood Cells % (auto) 0.0, Prothrombin Time 25.3H, Prothromb Time International Ratio 2.24, Anion Gap 1L, Glomerular Filtration Rate 50.0, Calcium Level 9.2 05/05/20 12:06: Anion Gap 2L, Glomerular Filtration Rate 51.2, Calcium Level 9.3 05/05/20 15:31: Anion Gap 4L, Glomerular Filtration Rate 51.6, Calcium Level 8.6L 05/05/20 17:23: Urine Random Creatinine 80.3, Urine Random Sodium 22, Urine Random Chloride 19, Vancomycin Level Trough 13.2 CBC/BMP Laboratory Tests 05/05/20 03:00 05/05/20 06:19 05/05/20 12:06 05/05/20 15:31 Microbiology Microbiology 05/02/20 Gram Stain - Final, Complete 05/02/20 Sputum Culture - Final, Complete Staphylococcus Aureus 04/29/20 Blood Culture - Final, Complete NO GROWTH AFTER 5 DAYS 04/29/20 Blood Culture - Final, Complete NO GROWTH AFTER 5 DAYS 04/29/20 Respiratory Virus Panel (PCR) ([facility]) - Final, Complete TRINY FRAZIER DO May 05, 2020 19:16
[2020-05-05 20:00] VITALS: BP 139/90
[2020-05-05] MEDS: VANCOMYCIN HCL 500 MG in D5W MINI-BAG PLUS 100 ML IV SCH (20:24)
[2020-05-05 21:20] LABS: CALCIUM LEVEL 8.5 MG/DL (8.8-10.2); CREATININE FOR GFR 1.44 MG/DL (0.70-1.30); GLOMERULAR FILTRATION RATE 50.4 (>42); POTASSIUM SERUM 3.7 MEQ/L (3.5-5.1)
[2020-05-06] VITALS: BP 163/70
[2020-05-06 00:27] LABS: HEMATOCRIT 33.2 % (42.0-52.0); HEMOGLOBIN 10.1 g/dl (13.5-17.5)
[2020-05-06 00:49] LABS: CALCIUM LEVEL 8.5 MG/DL (8.8-10.2); CREATININE FOR GFR 1.36 MG/DL (0.70-1.30); GLOMERULAR FILTRATION RATE 53.8 (>42); POTASSIUM SERUM 3.7 MEQ/L (3.5-5.1)
[2020-05-06] MEDS: D5W 1,000 ML IV SCH ×3 (02:28→17:32)
[2020-05-06] MEDS: NITROGLYCERIN 2% OINT 1 GM *U/D* PKT TOP SCH ×6 (03:11→20:51)
[2020-05-06 04:00] VITALS: BP 140/73
[2020-05-06] MEDS: SODIUM CHLORIDE 0.9% INJ 10 ML SYR IV SCH ×2 (05:55→17:39)
[2020-05-06] MEDS: SLF 3 ML SYR IV SCH ×3 (05:55→20:51)
[2020-05-06 06:25] LABS: HEMATOCRIT 33.1 % (42.0-52.0); HEMOGLOBIN 10.1 g/dl (13.5-17.5); MEAN CORPUSCULAR HEMOGLOBIN 33.7 pg (27.0-33.0); MEAN CORPUSCULAR HGB CONC 30.5 g/dl (32.0-36.5); MEAN CORPUSCULAR VOLUME 110.3 fl (80.0-96.0); PLATELET COUNT, AUTOMATED 165 10^3/uL (150-450); WHITE BLOOD COUNT 10.5 10^3/uL (4.0-10.0)
[2020-05-06 06:34] LABS: INR 2.42; PROTHROMBIN TIME 26.8 SECONDS (12.5-14.3)
[2020-05-06 06:47] LABS: CALCIUM LEVEL 8.2 MG/DL (8.8-10.2); CREATININE FOR GFR 1.34 MG/DL (0.70-1.30); GLOMERULAR FILTRATION RATE 54.7 (>42); POTASSIUM SERUM 3.8 MEQ/L (3.5-5.1)
[2020-05-06 07:57] VITALS: BP 162/68
[2020-05-06] MEDS ORDERED: KCL 20MEQ IN 100ML SWI (KRUN) 20 MEQ in IV 1 EA IV ONE ×2 (08:00)
[2020-05-06 09:00] LABS: ALBUMIN 2.5 GM/DL (3.2-5.2); BILIRUBIN,DIRECT 0.4 MG/DL (0.0-0.2); BILIRUBIN,TOTAL 0.9 MG/DL (0.2-1.0); TOTAL PROTEIN 5.8 GM/DL (6.4-8.2)
[2020-05-06] MEDS ORDERED: DESMOPRESSIN ACETATE 0.1 MG TAB PO SCH (09:00)
[2020-05-06] MEDS: PANTOPRAZOLE 40MG VIAL (C9113 PER 1) IV SCH ×2 (09:38→20:49)
[2020-05-06] MEDS: ceFAZolin SOD 2 GM in IV 1 EA IV SCH ×2 (09:38→17:38)
[2020-05-06 10:49] LABS: CALCIUM LEVEL 8.3 MG/DL (8.8-10.2); CREATININE FOR GFR 1.29 MG/DL (0.70-1.30); GLOMERULAR FILTRATION RATE 57.2 (>42); POTASSIUM SERUM 3.7 MEQ/L (3.5-5.1)
[2020-05-06 11:10] LABS: VANCOMYCIN LEVEL TROUGH 15.9 UG/ML (10.0-20.0)
[2020-05-06 11:59] VITALS: BP 149/67
--- NOTE | 2020-05-06 12:22 | IPNPDOC ---
Subjective Date Seen The patient was seen on 05/06/20. Subjective Chief Complaint/HPI Mr. Roy is a 80 year old male with mechanical aortic valve who is here with acute hypoxic, hypercapnic respiratory failure and AMS. He was extubated on 05/02/2020. Nephrology has been managing fluids, sodium is now moving in the right direction. This morning, he appeared more awake. Speech swallow therapy felt more comfortable trying a bedside cookie swallow. Otherwise when I spoke with the patient, denied any chest pain or dyspnea. He felt hungry and felt ready to eat. If he remains more awake, speech swallow to try bedside cookie swallow evaluation. Otherwise, if he becomes lethargic, we'll try again tomorrow. Objective Physical Examination General Exam: Positive: Alert, Cooperative Eye Exam: Negative: Sclera icteric Chest Exam: Positive: Rhonchi, Diminished Heart Exam: Positive: Rate Normal, Irregular Rhythm Abdomen Exam: Positive: Normal bowel sounds, Soft Extremity Exam: Positive: Edema (Bilatera pitting) Psych Exam: Positive: Mood NL Assessment /Plan Assessment Mr. Roy is a 80 year old male with mechanical aortic valve who is here with acute hypoxic, hypercapnic respiratory failure and AMS. He has weaned down to 1L of NC. Still confused this morning. Otherwise, continues with NPO due to bleed from OG tube and lethargy. Pending ability to restart diet and restart Warfarin. This morning he appears more awake. Pending recommendations from speech/swallow therapy. Otherwise, patient is hypernatremic despite D5W. Nephrology consulted, recommendations appreciated. Patient has a 9L free water deficit. Nephrology has been managing patient's fluids and sodium is moving the right direction. Plan/VTE VTE Prophylaxis Ordered?: Yes Plan 1. Acute hypoxic and hypercapnic respiratory failure -Due to acute CHF exacerbation -Extubated on 05/02/20 2. Acute CHF exacerbation -Preserved systolic function/Diastolic dysfunction -I/O's and daily weights -Lasix held for hypernatremia 3. Hypernatremia -Nephrology consulted, recommendations appreciated -Patient is 9L free water behind -On D5W and frequent BMP checks 4. Acute GI bleed -In the setting of chronic warfarin for mechanical aortic valve -H&H has been stable off of warfarin -On PPI and Carafate 5. Acute metabolic encephalopathy -Secondary to PNA and CHF -No safe diet due to the lethargy. 6. Pneumonia -CXR demonstrates bilateral infiltrates -On Vancomycin and Cefepime 7. Hypokalemia -Has not tolerate oral diet -IV supplement 8. Acute on chronic kidney disease stage III -Due to CHF on Lasix -I&O's and daily weights -Monitor BMP 9. Mechanical aortic valve -Anticoagulation held due to GI bleed -Will need to restart anticoagulation when available 10. DVT ppx -No chemical ppx due to GI bleed Disposition: Will need rehab when medical stable. Pending resolution of hypernatremia and bleed. Also pending diet and warfarin dosing. VS, I&O, 24H, Fishbone Vital Signs/I&O Vital Signs Date Time Temp Pulse Resp B/P (MAP) Pulse Ox O2 Delivery O2 Flow Rate FiO2 05/06/20 11:59 98.5 58 20 149/67 (94) 94 05/06/20 07:57 Nasal Cannula 1.0 05/02/20 17:13 40 I&O- Last 24 Hours up to 6 AM 05/06/20 06:00 Intake Total 4290 ml Output Total 1900 ml Balance 2390 ml Laboratory Data 24H LABS Laboratory Tests 2 05/05/20 15:31: Anion Gap 4L, Glomerular Filtration Rate 51.6, Calcium Level 8.6L 05/05/20 17:23: Urine Random Creatinine 80.3, Urine Random Sodium 22, Urine Random Chloride 19, Vancomycin Level Trough 13.2 05/05/20 20:00: Anion Gap 4L, Glomerular Filtration Rate 50.4, Calcium Level 8.5L 05/05/20 22:46: Urine Random Osmolality 581 05/06/20 00:17: Anion Gap 1L, Glomerular Filtration Rate 53.8, Calcium Level 8.5L 05/06/20 06:01: Anion Gap 5L, Glomerular Filtration Rate 54.7, Calcium Level 8.2L, Nucleated Red Blood Cells % (auto) 0.0, Prothrombin Time 26.8H, Prothromb Time International Ratio 2.42, Osmolality 337H, Total Bilirubin 0.9, Direct Bilirubin 0.4H, Aspartate Amino Transf (AST/SGOT) 30, Alanine Aminotransferase (ALT/SGPT) 29, Alkaline Phosphatase 49, Total Protein 5.8L, Albumin 2.5L, Albumin/Globulin Ratio 0.8 05/06/20 09:56: Anion Gap 5L, Glomerular Filtration Rate 57.2, Calcium Level 8.3L, Vancomycin Level Trough 15.9 05/06/20 10:08: Urine Random Osmolality 589, Urine Random Sodium 27 CBC/BMP Laboratory Tests 05/05/20 15:31 05/05/20 20:00 05/06/20 00:17 05/06/20 06:01 05/06/20 09:56 Microbiology Microbiology 05/02/20 Gram Stain - Final, Complete 05/02/20 Sputum Culture - Final, Complete Staphylococcus Aureus 04/29/20 Blood Culture - Final, Complete NO GROWTH AFTER 5 DAYS 04/29/20 Blood Culture - Final, Complete NO GROWTH AFTER 5 DAYS 04/29/20 Respiratory Virus Panel (PCR) ([facility]) - Final, Complete TRINY FRAZIER DO May 06, 2020 12:22
[2020-05-06] MEDS ORDERED: BARIUM SULFATE 700 MG TABLET (E-Z-DISK) As Ordered ONE (12:40)
[2020-05-06] MEDS ORDERED: VARIBAR PUDDING 40% w/v 230ML TUBE As Ordered ONE (12:41)
[2020-05-06] MEDS ORDERED: E-Z-PAQUE 96% w/w SUSP 176GM BTL As Ordered ONE (12:42)
[2020-05-06] MEDS ORDERED: VARIBAR NECTAR 40% w/v 240ML SUSP BTL As Ordered ONE (12:42)
--- NOTE | 2020-05-06 14:42 | CR ---
INPATIENT CONSULTATION DATE: 05/05/2020 REQUESTING PHYSICIAN: Ino Campa D.O. REASON FOR CONSULTATION: Management of severe hypernatremia. HISTORY OF PRESENT ILLNESS: Mr. Ronal Roy is a 80-year-old male with a past medical history of coronary artery disease, congestive heart failure, hypertension, chronic kidney disease, who initially presented to the hospital on April 29, 2020 after he was found to be unresponsive in his car by his . At that time, he was having epistaxis. He was initially admitted under the hospitalist service with syncope, epistaxis and metabolic encephalopathy and acute renal failure superimposed on chronic kidney disease stage 3. He was given I.V. fluid hydration. Later on, patient developed acute hypoxic and hypercapnic respiratory failure with CHF. He was intubated in the ICU. He was diuresed aggressively with I.V. diuretics. Patient's creatinine on arrival was 2.1, which had improved to 1.25 on May 03, 2020. He was given I.V. diuretics up until May 02, however, his sodium level started getting worse. He developed hypernatremia with a sodium of 161 today morning. Medical team started the patient on I.V. D5W, however despite that, his sodium went up to 162. Nephrology service was called for further help in the management of this patient. The patient needed my immediate attention. I emergently saw the patient at the bedside. History was obtained from the medical team and from patient's chart. He is unable to provide any history at this time. He is very confused and obtunded. I was told by the nursing staff that he has not been eating any food for the last 3 or 4 days. PAST MEDICAL HISTORY: Past medical history of chronic kidney disease stage 3, history of coronary artery disease; status post stent, history of aortic valve replacement, heart failure with preserved ejection fraction, COPD, gastroesophageal reflux disease, and recent congestive heart failure, and he was in the ICU a few days ago. PAST SURGICAL HISTORY: Status post coronary artery stenting, status post aortic valve replacement, status post tonsillectomy, adenoidectomy, bilateral cataract surgery. FAMILY HISTORY: No significant family history of end-stage renal disease. SOCIAL HISTORY: Patient lives at home with his . He is a former smoker. There is no significant history of illicit drug abuse. ALLERGIES: No known drug allergies. REVIEW OF SYSTEMS: I was unable to do any reliable review of systems. PHYSICAL EXAMINATION: VITAL SIGNS: Temperature 98.2 degrees Fahrenheit, blood pressure 157/74, pulse 72, respiratory rate 22, saturating 92% on nasal cannula at 1 liter. HEAD/NECK: Pupils are equally round and reactive to light. Mucous membranes are very dry. Neck is supple. There is no JVD. CARDIOVASCULAR: S1, S2, regular rate. No edema of the bilateral lower extremities. RESPIRATORY: Chest is clear to auscultation bilaterally. Bilateral equal air entry. No rales or rhonchi. ABDOMEN: Soft, positive bowel sounds, nontender. No organomegaly. GENITOURINARY: She has an indwelling Boyle catheter. MUSCULOSKELETAL: No clubbing or cyanosis. Pulses are 2+. ESCALATOR OPERATOR: Patient is very confused and obtunded and drowsy. He answers one or two questions and he is unable to communicate or follow other commands. LABORATORY REVIEW: CBC showed WBC 10.7, hemoglobin 10, platelets 187,000. Urine; random creatinine 80.3, sodium 22, chloride 19. Fractional excretion of sodium is less than 1%. BMP showed sodium 164, potassium 3.9, chloride 130, bicarb 30, BUN 49, creatinine 1.41, glucose 145, calcium 8.6. Vancomycin trough is 13.2. MICROBIOLOGY: Sputum grew Staph Aureus on May 02. CURRENT INPATIENT MEDICATIONS: Patient's medications were all reviewed by myself. Patient is currently on I.V. Cefepime. I gave him a bolus of D5W 500 cc. He was getting D5W at 150 cc an hour, I increased the rate to 175 cc an hour. He continues to be on I.V. Vancomycin as well. He is getting Heparin subcutaneously, Protonix 40 mg I.V. twice a day. He is supposed to be on Carafate, but he is not taking it because of n.p.o. status, and I have stopped that. ASSESSMENT AND PLAN: 1. Severe hypernatremia: Patient's fractional excretion of sodium is less than 1%. He has not been eating or drinking anything for the last three days. He was also being given diuretics. I think it is secondary to combination of use of diuretics and decreased oral intake. Patient has total 9 liter free water deficit. As mentioned above, he was given I.V. D5W bolus and his I.V. fluid rate has been increased. I would try to replete at least half of his fluid over the next 24 hours and the rest of the half over the next 48 to 72 hours. I am also going to check his urine osmolality right now and in the morning to make sure that patient does not have diabetes insipidus. 2. Chronic kidney disease stage 3: Patient's best creatinine was 1.2 two days ago. At this point, creatinine has bumped up to 1.4, which I think is secondary to volume depletion and I am hoping that his renal function should improve back to baseline with I.V. Dextrose water infusion. 3. Heart failure with preserved ejection fraction, diastolic dysfunction: Patient's Lasix was held two days ago. He is hypernatremic. He does not have any signs of fluid overload. He is clinically dry at this time. 4. Metabolic encephalopathy: I think it is a combination of electrolyte abnormalities and recent ICU stay and intubation. If he is unable to eat after correction of hypernatremia, I am going to start him on TPN. He already has PICC line placed. 5. Recent pneumonia: Patient is currently on Vancomycin and Cefepime. The rest of the management is as per medical team. Thank you for involving me in the care of this patient. I shall be happy to follow the patient along with you tomorrow morning.
[2020-05-06 14:58] LABS: CALCIUM LEVEL 8.6 MG/DL (8.8-10.2); CREATININE FOR GFR 1.32 MG/DL (0.70-1.30); GLOMERULAR FILTRATION RATE 55.7 (>42); POTASSIUM SERUM 3.8 MEQ/L (3.5-5.1)
[2020-05-06 16:00] VITALS: BP 167/79
--- NOTE | 2020-05-06 17:12 | REP ---
INDICATION: evaluate swallowing ability. COMPARISON: None. TECHNIQUE: The procedure was performed by Jessica Villanueva [facility], under the direct supervision of Dr. Peñaloza. The procedure was performed with Nela Powers, from speech pathology present. 5 ml aliquots of nectar, thin pudding, and honey thick consistency barium was administered. FINDINGS: Aspiration was visualized with both on honey and nectar thick consistency barium. The detailed report of this examination will be provided by speech pathology. IMPRESSION: Aspiration was visualized with both honey and nectar thick consistency barium, a detailed report will be provided by speech pathology. 1.6 minutes of fluoroscopy time was utilized for this procedure. Some fluoroscopic images are performed with last image hold technology. These images require no additional radiation <Electronically signed by Jessica Villanueva > 05/06/20 1345 <Electronically signed by Tanmay Peñaloza > 05/06/20 [id number]
[2020-05-06 19:12] LABS: CALCIUM LEVEL 8.5 MG/DL (8.8-10.2); CREATININE FOR GFR 1.28 MG/DL (0.70-1.30); GLOMERULAR FILTRATION RATE 57.7 (>42); POTASSIUM SERUM 3.7 MEQ/L (3.5-5.1)
[2020-05-06 20:00] VITALS: BP 152/70
--- NOTE | 2020-05-06 20:15 | IPNPDOC ---
Subjective Date Seen The patient was seen on 05/06/20. Subjective Chief Complaint/HPI Pt was admitted yesterday for severe hypernatremia. Pt is awake and responds to questions, better than yesterday, however continues to be confused. Nursing staff reports no overnight events. General: Reports: ROS Unobtainable Objective Physical Examination General Exam: Positive: Cooperative (pt still appears lethargic, however, he is more alert than yesterday and no longer obtunded) Eye Exam: Positive: Conjunctiva & lids normal ENT Exam: Positive: Atraumatic Chest Exam: Positive: Clear to auscultation, Normal air movement; Negative: Rales, Rhonchi, Wheezing, Diminished Heart Exam: Positive: Rate Normal, Regular Rhythm Abdomen Exam: Positive: Normal bowel sounds, Soft Extremity Exam: Negative: Edema Psych Exam: Negative: Mental status NL, Mood NL Assessment /Plan Assessment # Severe hypernatremia: Pt's sodium is improving as free water deficit is being replaced with D5W. However, pt's urine osmolality remains under 600. Therefore, pt was given desmopressin 0.1 mg PO bid. Although, pt's hypernatremia is likely secondary to extreme dehydration from decreased oral intake and diuretic use. # Chronic kidney disease stage 3: Patient's creatinine is trending back to pt's baseline of 1.2. # Heart failure with preserved ejection fraction, diastolic dysfunction: continue to hold pt's lasix, pt is clinically dry and has a FWD of 5L at this time. # Metabolic encephalopathy: Pt is doing a lot better today. Still appears confused. Will continue to correct underlying hypernatremia and continue to monitor resulting encephalopathy. # Recent pneumonia: started on cefazolin today, being managed by medical team. Plan/VTE VTE Prophylaxis Ordered?: No GME ATTESTATION My faculty preceptor for this patient encounter was physically present during the encounter and was fully available. All aspects of the patient interview, examination, medical decision making process, and medical care plan development were reviewed and approved by the faculty preceptor. The faculty preceptor is aware and concurs with the plan as stated in the body of this note and will attest to such by his/her cosignature. VS, I&O, 24H, Fishbone Vital Signs/I&O Vital Signs Date Time Temp Pulse Resp B/P (MAP) Pulse Ox O2 Delivery O2 Flow Rate FiO2 05/06/20 17:38 167/69 05/06/20 16:00 98.3 71 20 92 Room Air 05/06/20 07:57 1.0 05/02/20 17:13 40 I&O- Last 24 Hours up to 6 AM 05/06/20 05:59 Intake Total 4290 ml Output Total 2050 ml Balance 2240 ml Laboratory Data 24H LABS Laboratory Tests 2 05/05/20 20:00: Anion Gap 4L, Glomerular Filtration Rate 50.4, Calcium Level 8.5L 05/05/20 22:46: Urine Random Osmolality 581 05/06/20 00:17: Anion Gap 1L, Glomerular Filtration Rate 53.8, Calcium Level 8.5L 05/06/20 06:01: Anion Gap 5L, Glomerular Filtration Rate 54.7, Calcium Level 8.2L, Nucleated Red Blood Cells % (auto) 0.0, Prothrombin Time 26.8H, Prothromb Time International Ratio 2.42, Osmolality 337H, Total Bilirubin 0.9, Direct Bilirubin 0.4H, Aspartate Amino Transf (AST/SGOT) 30, Alanine Aminotransferase (ALT/SGPT) 29, Alkaline Phosphatase 49, Total Protein 5.8L, Albumin 2.5L, Albumin/Globulin Ratio 0.8 05/06/20 09:56: Anion Gap 5L, Glomerular Filtration Rate 57.2, Calcium Level 8.3L, Vancomycin Level Trough 15.9 05/06/20 10:08: Urine Random Osmolality 589, Urine Random Sodium 27 05/06/20 14:04: Anion Gap 3L, Glomerular Filtration Rate 55.7, Calcium Level 8.6L 05/06/20 14:50: Bedside Glucose (Misc Panel) 103 05/06/20 17:28: Bedside Glucose (Misc Panel) 120H 05/06/20 18:35: Anion Gap 3L, Glomerular Filtration Rate 57.7, Calcium Level 8.5L CBC/BMP Laboratory Tests 05/05/20 20:00 05/06/20 00:17 05/06/20 06:01 05/06/20 09:56 05/06/20 14:04 05/06/20 18:35 Microbiology Microbiology 05/02/20 Gram Stain - Final, Complete 05/02/20 Sputum Culture - Final, Complete Staphylococcus Aureus 04/29/20 Blood Culture - Final, Complete NO GROWTH AFTER 5 DAYS 04/29/20 Blood Culture - Final, Complete NO GROWTH AFTER 5 DAYS 04/29/20 Respiratory Virus Panel (PCR) ([facility]) - Final, Complete Attending Note Attending Note Hypernatremia Metabolic encephalopathy Aspiration and pneumonia Failed swallow Eval CHF Cont D5W. If TPN is started then special formula low sodium TPN will be ordered. Abx for pneumonia. No diuretics. 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 Melchor Ritchie DO May 06, 2020 20:15 JODEE RITCHIE MD May 09, 2020 15:23
[2020-05-06] MEDS: DESMOPRESSIN ACETATE 1 MCG in NS 50 ML IV SCH (21:01)
[2020-05-06 22:26] LABS: CALCIUM LEVEL 8.1 MG/DL (8.8-10.2); CREATININE FOR GFR 1.32 MG/DL (0.70-1.30); GLOMERULAR FILTRATION RATE 55.7 (>42); POTASSIUM SERUM 3.9 MEQ/L (3.5-5.1)
[2020-05-07] VITALS: BP 105/57
[2020-05-07] MEDS: ceFAZolin SOD 2 GM in IV 1 EA IV SCH ×3 (02:45→18:44)
[2020-05-07] MEDS: NITROGLYCERIN 2% OINT 1 GM *U/D* PKT TOP SCH ×6 (02:47→22:25)
[2020-05-07 04:00] VITALS: BP 166/71
[2020-05-07] MEDS: SODIUM CHLORIDE 0.9% INJ 10 ML SYR IV SCH ×3 (05:18→22:23)
[2020-05-07 05:37] LABS: HEMATOCRIT 33.6 % (42.0-52.0); HEMOGLOBIN 10.1 g/dl (13.5-17.5); MEAN CORPUSCULAR HGB CONC 30.1 g/dl (32.0-36.5); MEAN CORPUSCULAR VOLUME 109.8 fl (80.0-96.0); PLATELET COUNT, AUTOMATED 160 10^3/uL (150-450); RED BLOOD COUNT 3.06 10^6/uL (4.30-6.10); WHITE BLOOD COUNT 11.3 10^3/uL (4.0-10.0)
[2020-05-07 05:49] LABS: INR 2.52; PROTHROMBIN TIME 27.8 SECONDS (12.5-14.3)
[2020-05-07 06:16] LABS: CALCIUM LEVEL 8.1 MG/DL (8.8-10.2); CREATININE FOR GFR 1.25 MG/DL (0.70-1.30); GLOMERULAR FILTRATION RATE 59.3 (>42); POTASSIUM SERUM 3.7 MEQ/L (3.5-5.1)
[2020-05-07] MEDS: SLF 3 ML SYR IV SCH ×3 (06:16→22:25)
[2020-05-07 08:00] VITALS: BP 138/80
[2020-05-07] MEDS: PANTOPRAZOLE 40MG VIAL (C9113 PER 1) IV SCH ×2 (08:44→22:23)
[2020-05-07] MEDS: D5W 1,000 ML IV SCH ×2 (08:45→11:56)
[2020-05-07 09:07] LABS: OSMOLALITY URINE 604 MOSM/KG (500-800)
[2020-05-07] MEDS: DESMOPRESSIN ACETATE 1 MCG in NS 50 ML IV SCH ×2 (09:18→22:23)
[2020-05-07 09:35] LABS: SODIUM,RANDOM URINE 50 MEQ/L
[2020-05-07 12:00] VITALS: BP 151/75
[2020-05-07] MEDS ORDERED: KCL 20MEQ IN 100ML SWI (KRUN) 20 MEQ in IV 1 EA IV ONE ×4 (12:00→22:15)
--- NOTE | 2020-05-07 12:37 | IPNPDOC ---
Subjective Date Seen The patient was seen on 05/07/20. Subjective Chief Complaint/HPI Mr. Roy is a 80 year old male with mechanical aortic valve who is here with acute hypoxic, hypercapnic respiratory failure and AMS. He was extubated on 05/02/2020. Yesterday, he did not have a safe diet. Will try again today with speech/swallow. Otherwise, this morning, he is feeling more fatigued. If he is still not safe to have a diet, we will need to start TPN. Objective Physical Examination General Exam: Positive: Cooperative (pt still appears lethargic, however, he is more alert than yesterday and no longer obtunded) Eye Exam: Positive: Conjunctiva & lids normal ENT Exam: Positive: Atraumatic Chest Exam: Positive: Clear to auscultation, Normal air movement; Negative: Rales, Rhonchi, Wheezing, Diminished Heart Exam: Positive: Rate Normal, Regular Rhythm Abdomen Exam: Positive: Normal bowel sounds, Soft Extremity Exam: Negative: Edema Psych Exam: Positive: Other (fatigued) Assessment /Plan Assessment Mr. Roy is a 80 year old male with mechanical aortic valve who is here with acute hypoxic, hypercapnic respiratory failure and AMS. He has weaned down to 1L of NC. Still confused this morning. Otherwise, continues with NPO due to bleed from OG tube and lethargy. Pending ability to restart diet and restart Warfarin. This morning he appears more awake. Pending recommendations from speech/swallow therapy. Otherwise, patient is hypernatremic despite D5W. Nephrology consulted, recommendations appreciated. Patient has a 9L free water deficit. Nephrology has been managing patient's fluids and sodium is moving the right direction. Changed antibiotics to cefazolin since sputum culture grew MSSA. Otherwise, waiting to see if patient has a safe diet. If no safe diet, will need to start TPN Plan/VTE VTE Prophylaxis Ordered?: Yes Plan 1. Acute hypoxic and hypercapnic respiratory failure -Due to acute CHF exacerbation -Extubated on 05/02/20 2. Acute CHF exacerbation -Preserved systolic function/Diastolic dysfunction -I/O's and daily weights -Lasix held for hypernatremia 3. Hypernatremia -Nephrology consulted, recommendations appreciated -Patient is 9L free water behind -On D5W and frequent BMP checks 4. Acute GI bleed -In the setting of chronic warfarin for mechanical aortic valve -H&H has been stable off of warfarin -On PPI and Carafate 5. Acute metabolic encephalopathy -Secondary to PNA and CHF -No safe diet due to the lethargy. 6. Pneumonia -CXR demonstrates bilateral infiltrates -Sputum culture grew MSSA -Switch antibiotics to Cefazolin 7. Hypokalemia -Has not tolerate oral diet -IV supplement 8. Acute on chronic kidney disease stage III -Due to CHF on Lasix -I&O's and daily weights -Monitor BMP 9. Mechanical aortic valve -Anticoagulation held due to GI bleed -Will need to restart anticoagulation when available 10. DVT ppx -No chemical ppx due to GI bleed. SCD and TEDs Disposition: Will need rehab when medical stable. Pending resolution of hypernatremia and bleed. Also pending diet and warfarin dosing. If no safe diet today, then would need to start TPN VS, I&O, 24H, Fishbone Vital Signs/I&O Vital Signs Date Time Temp Pulse Resp B/P (MAP) Pulse Ox O2 Delivery O2 Flow Rate FiO2 05/07/20 10:56 138/80 05/07/20 08:00 97.8 65 20 92 Room Air 05/06/20 07:57 1.0 05/02/20 17:13 40 I&O- Last 24 Hours up to 6 AM 05/07/20 05:59 Intake Total 1825 ml Output Total 1800 ml Balance 25 ml Laboratory Data 24H LABS Laboratory Tests 2 05/06/20 14:04: Anion Gap 3L, Glomerular Filtration Rate 55.7, Calcium Level 8.6L 05/06/20 14:50: Bedside Glucose (Misc Panel) 103 05/06/20 17:28: Bedside Glucose (Misc Panel) 120H 05/06/20 18:35: Anion Gap 3L, Glomerular Filtration Rate 57.7, Calcium Level 8.5L 05/06/20 21:43: Urine Random Osmolality 595 05/06/20 21:49: Anion Gap 4L, Glomerular Filtration Rate 55.7, Calcium Level 8.1L 05/07/20 05:20: Anion Gap 5L, Glomerular Filtration Rate 59.3, Calcium Level 8.1L, Nucleated Red Blood Cells % (auto) 0.0, Prothrombin Time 27.8H, Prothromb Time International Ratio 2.52 05/07/20 08:50: Urine Random Osmolality 604, Urine Random Sodium 50 CBC/BMP Laboratory Tests 05/06/20 14:04 05/06/20 18:35 05/06/20 21:49 05/07/20 05:20 Microbiology Microbiology 05/02/20 Gram Stain - Final, Complete 05/02/20 Sputum Culture - Final, Complete Staphylococcus Aureus 04/29/20 Blood Culture - Final, Complete NO GROWTH AFTER 5 DAYS 04/29/20 Blood Culture - Final, Complete NO GROWTH AFTER 5 DAYS 04/29/20 Respiratory Virus Panel (PCR) ([facility]) - Final, Complete TRINY FRAZIER DO May 07, 2020 12:37
[2020-05-07 13:17] LABS: ALBUMIN 2.4 GM/DL (3.2-5.2); BLOOD UREA NITROGEN 32 MG/DL (7-18); CALCIUM LEVEL 8.7 MG/DL (8.8-10.2); CARBON DIOXIDE LEVEL 28 MEQ/L (21-32); CHLORIDE LEVEL 123 MEQ/L (98-107); GLOMERULAR FILTRATION RATE > 60.0 (>42); GLUCOSE, FASTING 116 MG/DL (70-100); PHOSPHORUS LEVEL 3.4 MG/DL (2.5-4.9); POTASSIUM SERUM 3.9 MEQ/L (3.5-5.1); SODIUM LEVEL 156 MEQ/L (136-145)
[2020-05-07 13:42] LABS: ALBUMIN 2.7 GM/DL (3.2-5.2); PHOSPHORUS LEVEL 3.2 MG/DL (2.5-4.9)
--- NOTE | 2020-05-07 14:17 | REP ---
INDICATION: Crackles in lungs. COMPARISON: 05/02/2020. TECHNIQUE: SINGLE PORTABLE AP VIEW OF THE CHEST WAS PERFORMED. FINDINGS: Cardiomegaly persists. The mediastinal silhouette is unchanged. Multiple sternal wires are present. Bibasilar infiltrates have improved with mild residual. Left arm PICC line is visualized with the tip at the junction of the superior vena cava and right atrium. IMPRESSION: Improved bibasilar infiltrates. Minimal bibasilar residual. <Electronically signed by Tanmay Peñaloza > 05/07/20 [id number]
[2020-05-07 16:00] VITALS: BP 148/79
[2020-05-07] MEDS ORDERED: AMINO AC/ELECTROLYTE/DEX/CALC 2,000 ML IV SCH (18:00)
[2020-05-07] MEDS ORDERED: FAT EMULSION IV 20% 500 ML IV SCH (18:00)
[2020-05-07] MEDS ORDERED: HumaLOG INSULIN (NovoLOG) PER UNIT SC SCH (18:00)
[2020-05-07 19:59] LABS: CREATININE FOR GFR 3.32 MG/DL (0.70-1.30); GLOMERULAR FILTRATION RATE 19.2 (>42); POTASSIUM SERUM 3.4 MEQ/L (3.5-5.1)
[2020-05-07 20:00] VITALS: BP 145/81
[2020-05-07 22:06] LABS: ALBUMIN 2.4 GM/DL (3.2-5.2); BLOOD UREA NITROGEN 33 MG/DL (7-18); CALCIUM LEVEL 8.4 MG/DL (8.8-10.2); CARBON DIOXIDE LEVEL 27 MEQ/L (21-32); CHLORIDE LEVEL 123 MEQ/L (98-107); CREATININE FOR GFR 1.17 MG/DL (0.70-1.30); GLOMERULAR FILTRATION RATE > 60.0 (>42); GLUCOSE, FASTING 119 MG/DL (70-100); PHOSPHORUS LEVEL 3.2 MG/DL (2.5-4.9); POTASSIUM SERUM 3.9 MEQ/L (3.5-5.1); SODIUM LEVEL 154 MEQ/L (136-145)
--- NOTE | 2020-05-07 23:03 | IPN ---
NEPHROLOGY PROGRESS NOTE DATE: 05/07/2020 SUBJECTIVE: Patient was seen and examined at the bedside today morning. He is slightly drowsy today as compared with yesterday. He failed the swallow evaluation yesterday. Barium swallow showed that he was aspirating. Most of his oral medications have been stopped. I switched his DDAVP to I.V. injections. He continues to be on I.V. D5W; rate was decreased because he has been started on DDAVP and I suspect that his urine output will drop. He still remains hypernatremic despite being on I.V. D5 for the last two days. OBJECTIVE: VITAL SIGNS: Temperature 97.5 degrees Fahrenheit, blood pressure 151/75, pulse 69, respiratory rate 20, saturating 93% on room air. INTAKE AND OUTPUT: Urine output recorded as 1.4 liters yesterday and 1.7 liters so far today since overnight. Weight in the bed scale is 108.2 kg. PHYSICAL EXAMINATION: GENERAL: Patient is awake, alert, oriented x2, laying in bed, in no respiratory distress. HEAD/NECK: Extraocular muscles intact. Pupils equally round and reactive to light. He has crusting on his upper lip. He is not wearing nasal cannula today. Tongue is still very dry. Neck is supple. There is no JVD. CARDIOVASCULAR: S1, S2, regular rate. No edema of the bilateral lower extremities. RESPIRATORY: Chest is clear to auscultation bilaterally. Bilateral equal air entry. No rales or rhonchi. ABDOMEN: Soft, positive bowel sounds, nontender. No organomegaly. GENITOURINARY: He has an indwelling Boyle catheter. MUSCULOSKELETAL: No clubbing or cyanosis. Pulses are 2+. ARTIST COLOR SEPARATION: He is slightly drowsy today. He opens up eyes and answers few questions. LABORATORY REVIEW: CBC showed WBC 11.3, hemoglobin 10.1, platelets 160,000. INR 2.5. Urine osmolality today morning 604. BMP latest one showed sodium 156, potassium 3.9, chloride 123, bicarb 28, BUN 32, creatinine 1.2. Calcium 8.7. IMAGING: A chest x-ray was done today, which showed improved bibasilar infiltrate, minimal bibasilar residue. Esophageal x-ray was done yesterday, which showed aspiration was visualized in both honey and nectar thick consistency barium. CURRENT INPATIENT MEDICATIONS: Patient's medications were all reviewed by myself. He was started on Cefazolin 2 grams I.V. every 8 hours. He continues to be on D5W at 125 cc an hour. He was started on Desmopressin 1 mcg I.V. twice a day. He was given a dose of KCl 20 mEq I.V. times one dose. He is on Protonix 40 mg I.V. twice a day. No other significant change in the medications today as compared with yesterday. ASSESSMENT AND PLAN: 1. Hypernatremia: It is secondary to patient's inability to drink anything. He was also on diuretics up until May 02. Patient is also making a lot of urine and he is not adequately concentrating his urine. Urine osmolality has been persistently less than 600 for the last three labs. After starting Desmopressin, his osmolality is slightly better. I will check his osmolality level tomorrow as well. Continue the D5W at this time. 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 2. Hypokalemia: Patient was given a dose of I.V. potassium chloride. 3. Acute renal failure superimposed on chronic kidney disease: Patient's creatinine has improved to 1.2 with I.V. fluid hydration. 4. Nutrition: Patient has failed swallow evaluation. He will need to start total parenteral nutrition. I would start him on special formula nutrition with low sodium tomorrow morning. 5. Congestive heart failure with diastolic dysfunction: Patient's diuretics are on hold because of volume depletion and hypernatremia. 6. Pneumonia: Patient is on Cefazolin. Chest x-ray is improving.
[2020-05-08] VITALS (7 sets, daily range): BP systolic 127–145; BP diastolic 58–67
[2020-05-08] MEDS: ceFAZolin SOD 2 GM in IV 1 EA IV SCH ×3 (03:00→18:23)
[2020-05-08] MEDS: NITROGLYCERIN 2% OINT 1 GM *U/D* PKT TOP SCH ×6 (03:01→21:33)
[2020-05-08 05:31] LABS: HEMATOCRIT 32.3 % (42.0-52.0); MEAN CORPUSCULAR HEMOGLOBIN 33.3 pg (27.0-33.0); MEAN CORPUSCULAR VOLUME 107.7 fl (80.0-96.0); PLATELET COUNT, AUTOMATED 155 10^3/uL (150-450); WHITE BLOOD COUNT 10.6 10^3/uL (4.0-10.0)
[2020-05-08] MEDS: D5W 1,000 ML IV SCH (05:35)
[2020-05-08] MEDS: SLF 3 ML SYR IV SCH ×3 (05:38→21:33)
[2020-05-08 05:41] LABS: INR 2.55
[2020-05-08 05:48] LABS: BLOOD UREA NITROGEN 34 MG/DL (7-18); CALCIUM LEVEL 8.6 MG/DL (8.8-10.2); CARBON DIOXIDE LEVEL 28 MEQ/L (21-32); CHLORIDE LEVEL 120 MEQ/L (98-107); CREATININE FOR GFR 1.19 MG/DL (0.70-1.30); GLOMERULAR FILTRATION RATE > 60.0 (>42); GLUCOSE, FASTING 113 MG/DL (70-100); POTASSIUM SERUM 3.9 MEQ/L (3.5-5.1); SODIUM LEVEL 152 MEQ/L (136-145)
[2020-05-08] MEDS: DESMOPRESSIN ACETATE 1 MCG in NS 50 ML IV SCH ×2 (10:00→21:32)
[2020-05-08] MEDS: PANTOPRAZOLE 40MG VIAL (C9113 PER 1) IV SCH ×2 (10:00→21:32)
[2020-05-08 11:19] LABS: BLOOD UREA NITROGEN 31 MG/DL (7-18); CALCIUM LEVEL 7.9 MG/DL (8.8-10.2); CARBON DIOXIDE LEVEL 28 MEQ/L (21-32); CHLORIDE LEVEL 121 MEQ/L (98-107); CREATININE FOR GFR 1.15 MG/DL (0.70-1.30); GLOMERULAR FILTRATION RATE > 60.0 (>42); GLUCOSE, FASTING 100 MG/DL (70-100); POTASSIUM SERUM 4.1 MEQ/L (3.5-5.1); SODIUM LEVEL 153 MEQ/L (136-145)
[2020-05-08] MEDS ORDERED: D5W 1000ML IV ONE (13:00)
--- NOTE | 2020-05-08 14:43 | IPNPDOC ---
Subjective Date Seen The patient was seen on 05/08/20. Subjective Chief Complaint/HPI Patient and nursing staff report no acute events overnight. Patient was seen at bedside and is able to follow directions. He appears to be less confused than yesterday however, continues to remain lethargic. General: Reports: ROS Unobtainable Objective Physical Examination General Exam: Positive: Cooperative (pt still appears lethargic, however, he is more alert than yesterday and no longer obtunded) Eye Exam: Positive: Conjunctiva & lids normal ENT Exam: Positive: Atraumatic Chest Exam: Positive: Clear to auscultation, Normal air movement; Negative: Rales, Rhonchi, Wheezing, Diminished Heart Exam: Positive: Rate Normal, Regular Rhythm Abdomen Exam: Positive: Normal bowel sounds, Soft Extremity Exam: Negative: Edema Psych Exam: Positive: Other (fatigued) Assessment /Plan Assessment # Hypernatremia: Patient's urine osmolality continues to be less than 600. If the next urine osmolality remains less than 600. Then the patient will be started on chlorothiazide (IV, since pt has poor oral intake and swallow) for nephrogenic diabetes insipidus. # Hypokalemia: Resolved. Mixed IV fluid 500 mL bolus will be given before starting the TPN. # Acute renal failure on chronic kidney disease: Patient's creatinine continues to improve on with I.V. fluid hydration. However, IV fluid will be stopped after another mixed IV fluid 500 mL bolus is given due to starting TPN. # Nutrition: Patient has failed swallow evaluation. TPN has been ordered. # Congestive heart failure with diastolic dysfunction: Continue to hold diuretics due to volume repletion and hypernatremia. # Pneumonia: Patient is on Cefazolin. Chest x-ray continues to show signs of improvement. Plan/VTE VTE Prophylaxis Ordered?: Yes VS, I&O, 24H, Fishbone Vital Signs/I&O Vital Signs Date Time Temp Pulse Resp B/P (MAP) Pulse Ox O2 Delivery O2 Flow Rate FiO2 05/08/20 12:00 97.7 73 22 144/67 (92) 93 Room Air 05/06/20 07:57 1.0 05/02/20 17:13 40 I&O- Last 24 Hours up to 6 AM 05/08/20 06:00 Intake Total 2350 ml Output Total 1750 ml Balance 600 ml Laboratory Data 24H LABS Laboratory Tests 2 05/07/20 16:32: Bedside Glucose (Misc Panel) 120H 05/07/20 18:53: Anion Gap 11, Glomerular Filtration Rate 19.2L, Calcium Level 7.0#L 05/07/20 20:52: Bedside Glucose (Misc Panel) 108 05/07/20 21:27: Anion Gap 4L, Glomerular Filtration Rate > 60.0, Calcium Level 8.4#L, Phosphorus Level 3.2, Albumin 2.4L 05/08/20 05:16: Nucleated Red Blood Cells % (auto) 0.0, Prothrombin Time 28.0H, Prothromb Time International Ratio 2.55, Anion Gap 4L, Glomerular Filtration Rate > 60.0, Calcium Level 8.6L 05/08/20 10:33: Anion Gap 4L, Glomerular Filtration Rate > 60.0, Calcium Level 7.9L 05/08/20 12:26: Bedside Glucose (Misc Panel) 104 CBC/BMP Laboratory Tests 05/07/20 18:53 05/07/20 21:27 05/08/20 05:16 05/08/20 10:33 Microbiology Microbiology 05/02/20 Gram Stain - Final, Complete 05/02/20 Sputum Culture - Final, Complete Staphylococcus Aureus 04/29/20 Blood Culture - Final, Complete NO GROWTH AFTER 5 DAYS 04/29/20 Blood Culture - Final, Complete NO GROWTH AFTER 5 DAYS 04/29/20 Respiratory Virus Panel (PCR) ([facility]) - Final, Complete GME ATTESTATION GME ATTESTATION My faculty preceptor for this patient encounter was physically present during the encounter and was fully available. All aspects of the patient interview, examination, medical decision making process, and medical care plan development were reviewed and approved by the faculty preceptor. The faculty preceptor is aw are and concurs with the plan as stated in the body of this note and will attest to such by his/her cosignature. Attending Note Attending Note PErsistent Hypernatremia Inability to swallow. Pneumonia Metabolic encephalopathy D5W switched to TPN with low sodium. cont DDAVP. DDAVP to be stopped once sodium improves to normal. Melchor Ritchie DO May 08, 2020 14:43 JODEE RITCHIE MD May 09, 2020 16:26
--- NOTE | 2020-05-08 15:14 | IPNPDOC ---
Subjective Date Seen The patient was seen on 05/08/20. Subjective Chief Complaint/HPI Mr. Roy is a 80 year old male with mechanical aortic valve who is here with acute hypoxic, hypercapnic respiratory failure and AMS. He was extubated on 05/02/2020. No safe diet at this time. Nephrology has started TPN. When I saw patient this morning, he was very lethargic and sleepy, but arousable. Denies chest pain. Dyspnea not any worse then prior Objective Physical Examination General Exam: Positive: Cooperative (pt still lethargic, but arousable) Eye Exam: Positive: Conjunctiva & lids normal ENT Exam: Positive: Atraumatic Chest Exam: Positive: Clear to auscultation, Normal air movement; Negative: Rales, Rhonchi, Wheezing, Diminished Heart Exam: Positive: Rate Normal, Regular Rhythm Abdomen Exam: Positive: Normal bowel sounds, Soft Extremity Exam: Negative: Edema Psych Exam: Positive: Other (fatigued) Assessment /Plan Assessment Mr. Roy is a 80 year old male with mechanical aortic valve who is here with acute hypoxic, hypercapnic respiratory failure and AMS. He has weaned down to 1L of NC. Still confused this morning. Otherwise, continues with NPO due to bleed from OG tube and lethargy. Pending ability to restart diet and restart Warfarin. This morning he appears more awake. Pending recommendations from speech/swallow therapy. Otherwise, patient is hypernatremic despite D5W. Nephrology consulted, recommendations appreciated. Patient has a 9L free water deficit. Nephrology has been managing patient's fluids and sodium is moving the right direction. Changed antibiotics to cefazolin since sputum culture grew MSSA. Otherwise, waiting to see if patient has a safe diet. Currently no safe diet. On TPN Plan/VTE VTE Prophylaxis Ordered?: Yes Plan 1. Acute hypoxic and hypercapnic respiratory failure -Due to acute CHF exacerbation -Extubated on 05/02/20 2. Acute CHF exacerbation -Preserved systolic function/Diastolic dysfunction -I/O's and daily weights -Lasix held for hypernatremia 3. Hypernatremia -Nephrology consulted, recommendations appreciated -Patient is 9L free water behind -On D5W and frequent BMP checks 4. Acute GI bleed -In the setting of chronic warfarin for mechanical aortic valve -H&H has been stable off of warfarin -On PPI and Carafate 5. Acute metabolic encephalopathy -Secondary to PNA and CHF -No safe diet -On TPN 6. Pneumonia -CXR demonstrates bilateral infiltrates -Sputum culture grew MSSA -Switch antibiotics to Cefazolin 7. Hypokalemia -Has not tolerate oral diet -IV supplement 8. Acute on chronic kidney disease stage III -Due to CHF on Lasix -I&O's and daily weights -Monitor BMP 9. Mechanical aortic valve -Anticoagulation held due to GI bleed -Will need to restart anticoagulation when available 10. DVT ppx -No chemical ppx due to GI bleed. SCD and TEDs Disposition: Will need rehab when medical stable. Pending resolution of hypernatremia and bleed. Also pending diet and warfarin dosing. Currently no safe diet, on TPN VS, I&O, 24H, Fishbone Vital Signs/I&O Vital Signs Date Time Temp Pulse Resp B/P (MAP) Pulse Ox O2 Delivery O2 Flow Rate FiO2 05/08/20 14:38 144/67 05/08/20 12:00 97.7 73 22 93 Room Air 05/06/20 07:57 1.0 05/02/20 17:13 40 I&O- Last 24 Hours up to 6 AM 05/08/20 06:00 Intake Total 2350 ml Output Total 1750 ml Balance 600 ml Laboratory Data 24H LABS Laboratory Tests 2 05/07/20 16:32: Bedside Glucose (Misc Panel) 120H 05/07/20 18:53: Anion Gap 11, Glomerular Filtration Rate 19.2L, Calcium Level 7.0#L 05/07/20 20:52: Bedside Glucose (Misc Panel) 108 05/07/20 21:27: Anion Gap 4L, Glomerular Filtration Rate > 60.0, Calcium Level 8.4#L, Phosphorus Level 3.2, Albumin 2.4L 05/08/20 05:16: Nucleated Red Blood Cells % (auto) 0.0, Prothrombin Time 28.0H, Prothromb Time International Ratio 2.55, Anion Gap 4L, Glomerular Filtration Rate > 60.0, Calcium Level 8.6L 05/08/20 10:33: Anion Gap 4L, Glomerular Filtration Rate > 60.0, Calcium Level 7.9L 05/08/20 12:26: Bedside Glucose (Misc Panel) 104 05/08/20 14:40: CBC/BMP Laboratory Tests 05/07/20 18:53 05/07/20 21:27 05/08/20 05:16 05/08/20 10:33 Microbiology Microbiology 05/02/20 Gram Stain - Final, Complete 05/02/20 Sputum Culture - Final, Complete Staphylococcus Aureus 04/29/20 Blood Culture - Final, Complete NO GROWTH AFTER 5 DAYS 04/29/20 Blood Culture - Final, Complete NO GROWTH AFTER 5 DAYS 04/29/20 Respiratory Virus Panel (PCR) ([facility]) - Final, Complete TRINY FRAZIER DO May 08, 2020 15:14
[2020-05-08 15:31] LABS: OSMOLALITY URINE 626 MOSM/KG (500-800)
[2020-05-08 15:33] LABS: SODIUM,RANDOM URINE 63 MEQ/L
[2020-05-08 15:40] LABS: BLOOD UREA NITROGEN 31 MG/DL (7-18); CALCIUM LEVEL 8.2 MG/DL (8.8-10.2); CARBON DIOXIDE LEVEL 29 MEQ/L (21-32); CHLORIDE LEVEL 118 MEQ/L (98-107); CREATININE FOR GFR 1.14 MG/DL (0.70-1.30); GLOMERULAR FILTRATION RATE > 60.0 (>42); GLUCOSE, FASTING 106 MG/DL (70-100); POTASSIUM SERUM 3.9 MEQ/L (3.5-5.1); SODIUM LEVEL 152 MEQ/L (136-145)
[2020-05-08] MEDS: HumaLOG INSULIN (NovoLOG) PER UNIT SC SCH (18:00)
[2020-05-08] MEDS ORDERED: SODIUM ACETATE IV SCH ×5 (18:00)
[2020-05-08] MEDS ORDERED: [UNRECOGNIZED DRUG - OTHER] IV SCH ×5 (18:00)
[2020-05-08] MEDS ORDERED: FAT EMULSION IV 20% 500 ML IV SCH (18:00)
[2020-05-08] MEDS ORDERED: MAGNESIUM SULFATE IV SCH ×5 (18:00)
[2020-05-08] MEDS ORDERED: POTASSIUM PHOSPHATE IV SCH ×5 (18:00)
[2020-05-08] MEDS: SODIUM CHLORIDE 0.9% INJ 10 ML SYR IV SCH (18:24)
[2020-05-08 19:14] LABS: BLOOD UREA NITROGEN 28 MG/DL (7-18); CALCIUM LEVEL 7.5 MG/DL (8.8-10.2); CARBON DIOXIDE LEVEL 27 MEQ/L (21-32); CHLORIDE LEVEL 121 MEQ/L (98-107); CREATININE FOR GFR 1.05 MG/DL (0.70-1.30); GLOMERULAR FILTRATION RATE > 60.0 (>42); GLUCOSE, FASTING 79 MG/DL (70-100); SODIUM LEVEL 153 MEQ/L (136-145)
[2020-05-08 22:07] LABS: BLOOD UREA NITROGEN 29 MG/DL (7-18); CALCIUM LEVEL 8.6 MG/DL (8.8-10.2); CARBON DIOXIDE LEVEL 27 MEQ/L (21-32); CHLORIDE LEVEL 119 MEQ/L (98-107); CREATININE FOR GFR 1.11 MG/DL (0.70-1.30); GLOMERULAR FILTRATION RATE > 60.0 (>42); GLUCOSE, FASTING 130 MG/DL (70-100); POTASSIUM SERUM 3.8 MEQ/L (3.5-5.1); SODIUM LEVEL 150 MEQ/L (136-145)
[2020-05-09] VITALS: BP 144/62
[2020-05-09] MEDS: HumaLOG INSULIN (NovoLOG) PER UNIT SC SCH ×4 (00:18→18:00)
[2020-05-09] MEDS: ceFAZolin SOD 2 GM in IV 1 EA IV SCH ×3 (01:46→18:04)
[2020-05-09] MEDS: NITROGLYCERIN 2% OINT 1 GM *U/D* PKT TOP SCH ×6 (01:47→21:24)
[2020-05-09 02:23] LABS: BLOOD UREA NITROGEN 30 MG/DL (7-18); CALCIUM LEVEL 8.4 MG/DL (8.8-10.2); CARBON DIOXIDE LEVEL 26 MEQ/L (21-32); CHLORIDE LEVEL 120 MEQ/L (98-107); CREATININE FOR GFR 1.06 MG/DL (0.70-1.30); GLOMERULAR FILTRATION RATE > 60.0 (>42); GLUCOSE, FASTING 114 MG/DL (70-100); POTASSIUM SERUM 3.6 MEQ/L (3.5-5.1); SODIUM LEVEL 150 MEQ/L (136-145)
[2020-05-09 04:00] VITALS: BP 150/64
[2020-05-09] MEDS: SLF 3 ML SYR IV SCH ×3 (06:07→23:49)
[2020-05-09] MEDS: SODIUM CHLORIDE 0.9% INJ 10 ML SYR IV SCH ×2 (06:07→18:05)
[2020-05-09 06:16] LABS: HEMATOCRIT 33.1 % (42.0-52.0); MEAN CORPUSCULAR HGB CONC 30.2 g/dl (32.0-36.5); MEAN CORPUSCULAR VOLUME 109.2 fl (80.0-96.0); PLATELET COUNT, AUTOMATED 159 10^3/uL (150-450); RED BLOOD COUNT 3.03 10^6/uL (4.30-6.10); WHITE BLOOD COUNT 9.9 10^3/uL (4.0-10.0)
[2020-05-09 06:20] LABS: INR 1.93; PROTHROMBIN TIME 22.5 SECONDS (12.5-14.3)
[2020-05-09 06:34] LABS: BLOOD UREA NITROGEN 30 MG/DL (7-18); CARBON DIOXIDE LEVEL 28 MEQ/L (21-32); CHLORIDE LEVEL 118 MEQ/L (98-107); CREATININE FOR GFR 1.06 MG/DL (0.70-1.30); GLOMERULAR FILTRATION RATE > 60.0 (>42); GLUCOSE, FASTING 122 MG/DL (70-100); POTASSIUM SERUM 3.7 MEQ/L (3.5-5.1); SODIUM LEVEL 150 MEQ/L (136-145)
[2020-05-09 08:00] VITALS: BP 127/57
[2020-05-09] MEDS: DESMOPRESSIN ACETATE 1 MCG in NS 50 ML IV SCH ×2 (08:47→21:18)
[2020-05-09] MEDS: PANTOPRAZOLE 40MG VIAL (C9113 PER 1) IV SCH ×2 (08:47→21:18)
[2020-05-09 12:00] VITALS: BP 130/78
--- NOTE | 2020-05-09 14:22 | IPNPDOC ---
Subjective Date Seen The patient was seen on 05/09/20. Subjective Chief Complaint/HPI Mr. Roy is a 80 year old male with mechanical aortic valve who is here with acute hypoxic, hypercapnic respiratory failure and AMS. He was extubated on 05/02/2020. No safe diet at this time. Nephrology has started TPN. When seen this morning, he appears more awake. His speech is not back to normal, and some words are difficult to understand, but he appears better than yesterday. He denies any chest pain or worsening dyspnea. Objective Physical Examination General Exam: Positive: Cooperative (pt still lethargic, but arousable) Eye Exam: Positive: Conjunctiva & lids normal ENT Exam: Positive: Atraumatic Chest Exam: Positive: Clear to auscultation, Normal air movement; Negative: Rales, Rhonchi, Wheezing, Diminished Heart Exam: Positive: Rate Normal, Regular Rhythm Abdomen Exam: Positive: Normal bowel sounds, Soft Extremity Exam: Negative: Edema Psych Exam: Positive: Other (fatigued) Assessment /Plan Assessment Mr. Roy is a 80 year old male with mechanical aortic valve who is here with acute hypoxic, hypercapnic respiratory failure and AMS. He has weaned down to 1L of NC. Still confused this morning. Otherwise, continues with NPO due to bleed from OG tube and lethargy. Pending ability to restart diet and restart Warfarin. This morning he appears more awake. Pending recommendations from speech/swallow therapy. Otherwise, patient is hypernatremic despite D5W. Nephrology consulted, recommendations appreciated. Patient has a 9L free water deficit. Nephrology has been managing patient's fluids and sodium is moving the right direction. Changed antibiotics to cefazolin since sputum culture grew MSSA. Otherwise, waiting to see if patient has a safe diet. Currently no safe diet. On TPN Plan/VTE VTE Prophylaxis Ordered?: Yes Plan 1. Acute hypoxic and hypercapnic respiratory failure -Due to acute CHF exacerbation -Extubated on 05/02/20 2. Acute CHF exacerbation -Preserved systolic function/diastolic dysfunction -I/O's and daily weights -Lasix held for hypernatremia 3. Hypernatremia -Nephrology consulted, recommendations appreciated -Patient is 9L free water behind -Resolving 4. Acute GI bleed -In the setting of chronic warfarin for mechanical aortic valve -H&H has been stable off of warfarin -On PPI and Carafate 5. Acute metabolic encephalopathy -Secondary to PNA and CHF -No safe diet -On TPN 6. Pneumonia -CXR demonstrates bilateral infiltrates -Sputum culture grew MSSA -Switch antibiotics to Cefazolin 7. Hypokalemia -Has not tolerate oral diet -IV supplement 8. Acute on chronic kidney disease stage III -Due to CHF on Lasix -I&O's and daily weights -Monitor BMP 9. Mechanical aortic valve -Anticoagulation held due to GI bleed -Will need to restart anticoagulation when available 10. DVT ppx -No chemical ppx due to GI bleed. SCD and TEDs Disposition: Will need rehab when medical stable. Pending resolution of hypernatremia and bleed. Also pending diet and warfarin dosing. Currently no safe diet, on TPN VS, I&O, 24H, Fishbone Vital Signs/I&O Vital Signs Date Time Temp Pulse Resp B/P (MAP) Pulse Ox O2 Delivery O2 Flow Rate FiO2 05/09/20 14:04 130/78 05/09/20 12:00 97.5 89 19 97 Room Air 05/06/20 07:57 1.0 I&O- Last 24 Hours up to 6 AM 05/09/20 06:00 Intake Total 1150.25 ml Output Total 1950 ml Balance -799.75 ml Laboratory Data 24H LABS Laboratory Tests 2 05/08/20 14:40: Urine Random Osmolality 626, Urine Random Sodium 63, Anion Gap 5L, Glomerular Filtration Rate > 60.0, Calcium Level 8.2L 05/08/20 17:09: Bedside Glucose (Misc Panel) 86 05/08/20 18:33: Anion Gap 5L, Glomerular Filtration Rate > 60.0, Calcium Level 7.5L 05/08/20 21:37: Anion Gap 4L, Glomerular Filtration Rate > 60.0, Calcium Level 8.6L 05/08/20 23:21: Bedside Glucose (Misc Panel) 118H 05/09/20 01:54: Anion Gap 4L, Glomerular Filtration Rate > 60.0, Calcium Level 8.4L 05/09/20 05:41: Anion Gap 4L, Glomerular Filtration Rate > 60.0, Calcium Level 8.0L, Nucleated Red Blood Cells % (auto) 0.0, Prothrombin Time 22.5H, Prothromb Time International Ratio 1.93 05/09/20 05:52: Bedside Glucose (Misc Panel) 120H 05/09/20 09:36: Osmolality 316H 05/09/20 12:06: Bedside Glucose (Misc Panel) 111H CBC/BMP Laboratory Tests 05/08/20 14:40 05/08/20 18:33 05/08/20 21:37 05/09/20 01:54 05/09/20 05:41 Microbiology Microbiology 05/02/20 Gram Stain - Final, Complete 05/02/20 Sputum Culture - Final, Complete Staphylococcus Aureus 04/29/20 Blood Culture - Final, Complete NO GROWTH AFTER 5 DAYS 04/29/20 Blood Culture - Final, Complete NO GROWTH AFTER 5 DAYS 04/29/20 Respiratory Virus Panel (PCR) ([facility]) - Final, Complete TRINY FRAZIER DO May 09, 2020 14:21
[2020-05-09 16:00] VITALS: BP 128/48
[2020-05-09] MEDS ORDERED: FAT EMULSION IV 20% 500 ML IV SCH (18:00)
[2020-05-09] MEDS ORDERED: POTASSIUM PHOSPHATE IV SCH ×4 (18:00)
[2020-05-09] MEDS ORDERED: [UNRECOGNIZED DRUG - OTHER] IV SCH ×4 (18:00)
[2020-05-09] MEDS ORDERED: MAGNESIUM SULFATE IV SCH ×4 (18:00)
[2020-05-09 20:00] VITALS: BP 159/72
[2020-05-10] VITALS: BP 150/58
[2020-05-10] MEDS: ceFAZolin SOD 2 GM in IV 1 EA IV SCH ×3 (02:49→16:49)
[2020-05-10] MEDS: NITROGLYCERIN 2% OINT 1 GM *U/D* PKT TOP SCH ×6 (02:50→21:03)
[2020-05-10 04:00] VITALS: BP 146/67
[2020-05-10 04:49] LABS: HEMOGLOBIN 9.8 g/dl (13.5-17.5); MEAN CORPUSCULAR HEMOGLOBIN 32.8 pg (27.0-33.0); MEAN CORPUSCULAR HGB CONC 30.6 g/dl (32.0-36.5); PLATELET COUNT, AUTOMATED 168 10^3/uL (150-450); RED BLOOD COUNT 2.99 10^6/uL (4.30-6.10); WHITE BLOOD COUNT 9.3 10^3/uL (4.0-10.0)
[2020-05-10 05:05] LABS: INR 1.18; PROTHROMBIN TIME 15.2 SECONDS (12.5-14.3)
[2020-05-10 05:17] LABS: BLOOD UREA NITROGEN 27 MG/DL (7-18); CALCIUM LEVEL 7.9 MG/DL (8.8-10.2); CARBON DIOXIDE LEVEL 25 MEQ/L (21-32); CHLORIDE LEVEL 120 MEQ/L (98-107); CREATININE FOR GFR 0.92 MG/DL (0.70-1.30); GLOMERULAR FILTRATION RATE > 60.0 (>42); GLUCOSE, FASTING 140 MG/DL (70-100); POTASSIUM SERUM 3.6 MEQ/L (3.5-5.1); SODIUM LEVEL 151 MEQ/L (136-145)
[2020-05-10] MEDS: HumaLOG INSULIN (NovoLOG) PER UNIT SC SCH ×4 (06:00→17:46)
[2020-05-10] MEDS: SLF 3 ML SYR IV SCH ×3 (06:25→21:02)
[2020-05-10] MEDS: SODIUM CHLORIDE 0.9% INJ 10 ML SYR IV SCH ×2 (06:52→17:47)
[2020-05-10 08:00] VITALS: BP 157/68
[2020-05-10] MEDS: PANTOPRAZOLE 40MG VIAL (C9113 PER 1) IV SCH ×2 (08:28→21:02)
[2020-05-10] MEDS ORDERED: D5W 500 ML IV ONE ×2 (08:30→20:15)
[2020-05-10 12:00] VITALS: BP 124/57
[2020-05-10] MEDS: SALIVA SUBSTITUTE(MOUTHKOTE) BTL MT SCH ×3 (13:00→21:02)
[2020-05-10 16:00] VITALS: BP 111/57
[2020-05-10] MEDS ORDERED: FAT EMULSION IV 20% 500 ML IV SCH (18:00)
[2020-05-10] MEDS ORDERED: MAGNESIUM SULFATE IV SCH ×6 (18:00)
[2020-05-10] MEDS ORDERED: POTASSIUM PHOSPHATE IV SCH ×6 (18:00)
[2020-05-10] MEDS ORDERED: [UNRECOGNIZED DRUG - OTHER] IV SCH ×6 (18:00)
--- NOTE | 2020-05-10 18:41 | IPNPDOC ---
Subjective Date Seen The patient was seen on 05/10/20. Subjective Chief Complaint/HPI Mr. Roy is a 80 year old male with mechanical aortic valve who is here with acute hypoxic, hypercapnic respiratory failure and AMS. He was extubated on 05/02/2020. No safe diet at this time. Nephrology has started TPN. This morning, he appears stronger. Denies chest pain or dyspnea. Voice is still horse. Objective Physical Examination General Exam: Positive: Cooperative (pt still appears lethargic, however, he is more alert than yesterday and no longer obtunded) Eye Exam: Positive: Conjunctiva & lids normal ENT Exam: Positive: Atraumatic Chest Exam: Positive: Clear to auscultation, Normal air movement; Negative: Rales, Rhonchi, Wheezing, Diminished Heart Exam: Positive: Rate Normal, Regular Rhythm Abdomen Exam: Positive: Normal bowel sounds, Soft Extremity Exam: Negative: Edema Neuro Exam: Negative: Normal Speech (voice hoarse) Psych Exam: Positive: Mood NL Assessment /Plan Assessment Mr. Roy is a 80 year old male with mechanical aortic valve who is here with acute hypoxic, hypercapnic respiratory failure and AMS. He has weaned down to 1L of NC. Still confused this morning. Otherwise, continues with NPO due to bleed from OG tube and lethargy. Pending ability to restart diet and restart Warfarin. This morning he appears more awake. Pending recommendations from speech/swallow therapy. Otherwise, patient is hypernatremic despite D5W. Nephrology consulted, recommendations appreciated. Patient has a 9L free water deficit. Nephrology has been managing patient's fluids and sodium is moving the right direction. Changed antibiotics to cefazolin since sputum culture grew MSSA. Otherwise, waiting to see if patient has a safe diet. Currently no safe diet. On TPN Plan/VTE VTE Prophylaxis Ordered?: Yes Plan 1. Acute hypoxic and hypercapnic respiratory failure -Due to acute CHF exacerbation -Extubated on 05/02/20 2. Acute CHF exacerbation -Preserved systolic function/diastolic dysfunction -I/O's and daily weights -Lasix held for hypernatremia 3. Hypernatremia -Nephrology consulted, recommendations appreciated -Patient is 9L free water behind -Resolving 4. Acute GI bleed -In the setting of chronic warfarin for mechanical aortic valve -H&H has been stable off of warfarin -On PPI and Carafate 5. Acute metabolic encephalopathy -Secondary to PNA and CHF -No safe diet -On TPN 6. Pneumonia -CXR demonstrates bilateral infiltrates -Sputum culture grew MSSA -Switch antibiotics to Cefazolin 7. Hypokalemia -Has not tolerate oral diet -IV supplement 8. Acute on chronic kidney disease stage III -Due to CHF on Lasix -I&O's and daily weights -Monitor BMP 9. Mechanical aortic valve -Anticoagulation held due to GI bleed -Will need to restart anticoagulation when available 10. DVT ppx -No chemical ppx due to GI bleed. SCD and TEDs Disposition: Will need rehab when medical stable. Pending resolution of hypernatremia and bleed. Also pending diet and warfarin dosing. Currently no safe diet, on TPN. When he can swallow may be the safest time to restart warfarin. Concerns about oral bleeding and choking on blood. VS, I&O, 24H, Fishbone Vital Signs/I&O Vital Signs Date Time Temp Pulse Resp B/P (MAP) Pulse Ox O2 Delivery O2 Flow Rate FiO2 05/10/20 17:48 138/72 05/10/20 16:00 98.3 60 22 95 Room Air 05/10/20 12:00 1.0 I&O- Last 24 Hours up to 6 AM 05/10/20 06:00 Intake Total 1400 ml Output Total 1075 ml Balance 325 ml Laboratory Data 24H LABS Laboratory Tests 2 05/09/20 23:47: Bedside Glucose (Misc Panel) 120H 05/10/20 04:33: Nucleated Red Blood Cells % (auto) 0.0, Prothrombin Time 15.2H, Prothromb Time International Ratio 1.18, Anion Gap 6L, Glomerular Filtration Rate > 60.0, Calcium Level 7.9L, Phosphorus Level 3.0 05/10/20 06:35: Bedside Glucose (Misc Panel) 130H 05/10/20 08:33: Urine Random Osmolality 651 05/10/20 13:11: Bedside Glucose (Misc Panel) 133H 05/10/20 17:06: Bedside Glucose (Misc Panel) 129H CBC/BMP Laboratory Tests 05/10/20 04:33 Microbiology Microbiology 05/02/20 Gram Stain - Final, Complete 05/02/20 Sputum Culture - Final, Complete Staphylococcus Aureus TRINY FRAZIER 18, 2021 18:41
[2020-05-10 20:00] VITALS: BP 152/67
[2020-05-10 21:36] LABS: MAGNESIUM LEVEL 2.4 MG/DL (1.8-2.4); PHOSPHORUS LEVEL 2.7 MG/DL (2.5-4.9)
--- NOTE | 2020-05-10 23:03 | IPN ---
NEPHROLOGY PROGRESS NOTE DATE: 05/10/2020 SUBJECTIVE: Ronal was seen and examined this morning at the bedside. Nursing staff reports no acute overnight events. The patient answers most questions appropriately. He is able to tell me his name. He thinks that the year is 2019 and that Julianna is president. He denies shortness of breath. He continues on TPN and has not had a repeat swallow evaluation yet this week. His speech is stills somewhat difficult to comprehend. PHYSICAL EXAMINATION: VITAL SIGNS: Temperature 98.4, pulse 59, respiratory rate 20, blood pressure 124/57, saturating 95% on one liter nasal cannula. INTAKE AND OUTPUT: Intake yesterday was reported as 690 which I believe must be incorrect as TPN was running at 100 mL per hour. His urine output was recorded as 1,375. Weight in the bed scale today is 108.5 kg. GENERAL APPEARANCE: The patient is seen lying in bed awake and alert. He answers simple questions appropriately including his name, his location, and thinks the year is 2019. Speech is somewhat garbled. He makes eye contact. HEENT: Mucous membranes are very dry with thick secretions. NECK: Supple. Nasal cannula is in place. Jugular veins are not elevated. HEART: Bradycardic and irregular, S1, S2. There is no leg edema. LUNGS: Symmetric air entry bilaterally. No crackles or rales. There is no accessory muscle use. He is comfortable on nasal cannula. ABDOMEN: Soft. GENITOURINARY: Indwelling Boyle catheter. NEUROLOGICAL: He is cooperative with the physical exam and answers most simple questions appropriately. LABORATORY STUDIES: Labs today show sodium 151, potassium 3.6, bicarbonate 25, BUN 27, creatinine 0.9, phosphorous 3.0, hemoglobin 9.8. INPATIENT MEDICATIONS: The patient's medications were reviewed by myself. He is ordered for a d5w 500 mL bolus this morning and another 500 mL bolus in the evening. His DDAVP remains on hold. He continues on TPN. His insulin was adjusted by the primary service. The remainder of medications are unchanged from prior. PROBLEMS: 1. Hypernatremia - The patient has a free water deficit of about 4 liters. He is written for TPN with low sodium (hypotonic). I have also given him d5w over the course of the day, one liter in total. His DDAVP is on hold. His urine osmolality is concentrated at 650. 2. Hypokalemia he is receiving potassium supplementation with the TPN. 3. History of systolic and diastolic congestive heart failure his diuretics are on hold. He has a free water deficit. Continue with hypotonic fluid at this time. 4. Nutrition the patient remains n.p.o. His mentation has improved this week. He should have a repeat swallow evaluation. For the present time, new orders are written for a special formula TPN.
[2020-05-11] VITALS (7 sets, daily range): BP systolic 133–156; BP diastolic 61–70
[2020-05-11] MEDS: NITROGLYCERIN 2% OINT 1 GM *U/D* PKT TOP SCH ×6 (01:45→22:07)
[2020-05-11] MEDS: ceFAZolin SOD 2 GM in IV 1 EA IV SCH ×3 (01:45→18:26)
[2020-05-11] MEDS: SODIUM CHLORIDE 0.9% INJ 10 ML SYR IV SCH ×2 (05:08→18:24)
[2020-05-11] MEDS: SLF 3 ML SYR IV SCH ×3 (05:09→22:07)
[2020-05-11] MEDS: HumaLOG INSULIN (NovoLOG) PER UNIT SC SCH ×4 (06:00→18:22)
[2020-05-11 06:16] LABS: HEMOGLOBIN 9.8 g/dl (13.5-17.5); MEAN CORPUSCULAR HEMOGLOBIN 33.2 pg (27.0-33.0); MEAN CORPUSCULAR HGB CONC 31.6 g/dl (32.0-36.5); MEAN CORPUSCULAR VOLUME 105.1 fl (80.0-96.0); PLATELET COUNT, AUTOMATED 172 10^3/uL (150-450); RED BLOOD COUNT 2.95 10^6/uL (4.30-6.10); WHITE BLOOD COUNT 9.6 10^3/uL (4.0-10.0)
[2020-05-11 06:27] LABS: INR 1.22; PROTHROMBIN TIME 15.7 SECONDS (12.5-14.3)
[2020-05-11 06:38] LABS: BLOOD UREA NITROGEN 29 MG/DL (7-18); CALCIUM LEVEL 8.3 MG/DL (8.8-10.2); CARBON DIOXIDE LEVEL 25 MEQ/L (21-32); CHLORIDE LEVEL 116 MEQ/L (98-107); CREATININE FOR GFR 0.89 MG/DL (0.70-1.30); GLOMERULAR FILTRATION RATE > 60.0 (>42); GLUCOSE, FASTING 109 MG/DL (70-100); POTASSIUM SERUM 3.8 MEQ/L (3.5-5.1); SODIUM LEVEL 145 MEQ/L (136-145)
[2020-05-11] MEDS: PANTOPRAZOLE 40MG VIAL (C9113 PER 1) IV SCH ×2 (07:54→22:06)
[2020-05-11] MEDS: SALIVA SUBSTITUTE(MOUTHKOTE) BTL MT SCH ×4 (07:54→22:07)
[2020-05-11] MEDS ORDERED: BISACODYL 10 MG SUPP PR PRN (10:00)
[2020-05-11] MEDS ORDERED: FLEET ENEMA PR PRN (10:00)
--- NOTE | 2020-05-11 13:02 | IPNPDOC ---
Date Seen The patient was seen on 05/11/20. Progress Note SUBJECTIVE: Repeat swallow evaluation today. afebrile. denies sob, cp,pressure, cough productive of sputum. no bowel movement. still on tpn due to aspiration risk. sodium 145 today. OBJECTIVE: PHYSICAL EXAMINATION: VITAL SIGNS: See below GEN. APPEARANCE: aaox2 person and place. able to say [facility] and his name, but did not know the date. no respiratory distress HEENT: no thyromegaly. Dry mucous membranes CARDIOVASCULAR: S1, S2, irregularly irregular, Not tachycardic LUNGS: Diminished ABDOMEN: Obese, doughy positive bowel sounds 4 quadrants distended. No rebound, guarding EXTREMITIES: Chronic venous stasis changes, + pitting edema b/l LABORATORY DATA: See below. IMAGING: See below MICROBIOLOGY: Please see below. ASSESSMENT: 80-year-old male with history of mechanical aortic valve on chronic warfarin, hypertension, anemia, COPD, CAD, reflux, BLANE was brought in by ambulance after the patient was found unresponsive in his car by his after being up all night sleeping on his chair due to epistaxis and using Q-tips to stop the bleeding. Patient was found to be mumbling by EMS and incomprehensible. He had no tonic-clonic activity and remained confused and mumbling despite multiple Narcan's in the ER, CT of the head was negative for acute intracranial abnorm ality. Glucose was 121. Ammonia was normal at 15. He was afebrile chest x-ray was negative. Urine and urine tox screen are still pending. Hospitalist was called to admit for altered mental status, found to be in decompensated congestive heart failure with acute hypercapnic respiratory failure requiring intubation, mechanical ventilation, s/p extubation 05/02/20. Acute CHF exacerbation with preserved systolic function/diastolic dysfunction -Complicated by acute respiratory acidosis, hypoxic, and hypercapnic respiratory failure requiring intubation and mechanical ventilation on 04/29/2020 -s/p intubation on admission -extubated 05/02/20 -On strict I's and O's, daily weights -on no diuretics due to severe water deficit from npo status from aspiration risk. -nephrology consulted for fluid balance mgt. -on TPN. sodium improved Acute hypercarbic and hypoxic respiratory failure with acute Respiratory acidosis, resolved -Due to his decompensated congestive heart failure -resolved with intubation and mechanical ventilation -extubated 05/02/20 Acute metabolic encephalopathy -s/p extubation -secondary to pna and chf -since off warfarin for gi bleed, concern for cva due to mechanical aortic valve -negative ct head w/o contrast -completing 14days abx for mssa pna Acute GI bleed -In the setting of chronic warfarin for mechanical aortic valve. -Patient's hemoglobin, hematocrit, as well as vital signs remained stable without any acute indication for emergent endoscopy. -For now. Patient has been off warfarin -on ppi and carafate -per surgery Dr. Zavala, hold off on EGD and treat conservatively -repeat speech eval today for aspiration risk Hypokalemia -resolved with supplementation Acute on chronic kidney disease stage III -Due to congestive heart failure exacerbation s/p Lasix diuresis -on strict I's and O's, daily weights -security guard consulted. MSSA Pneumonia -Bilateral infiltrates -s/p vancomycin and cefepime -on iv cefazolin -to complete a total of 14 days abx Epistaxis -No recurrent episode -Keep O2 sat greater than 90% BLANE noncompliant w cpap Mechanical aortic valve -Held anticoagulation due to active GI bleed. No signs of acute anemia requiring rbc transfusion -CT head negative for acute hemorrhage on admission -repeat stat ct w/o contrast negative Hypertension -stable Chronic anemia/ recent epistaxis/bloody OG tube GI bleed -no acute need for rbc transfusion -monitor recurrent epistaxis Hypothyroidism -T4 is normal. No need for supplementation COPD, compensated -Nebulizer CAD status post stent -Negative troponins code:full disposition: await speech eval. if fails again, will need a feeding tube. VS, I&O, 24H, [facility] Vital Signs/I&O Vital Signs Date Time Temp Pulse Resp B/P (MAP) Pulse Ox O2 Delivery O2 Flow Rate FiO2 05/11/20 07:15 97.6 66 18 135/61 (85) 93 Nasal Cannula 2.0 I&O- Last 24 Hours up to 6 AM 05/11/20 06:00 Intake Total 100 ml Output Total 1450 ml Balance -1350 ml Laboratory Data 24H LABS Laboratory Tests 2 05/10/20 08:33: Urine Random Osmolality 651 05/10/20 13:11: Bedside Glucose (Misc Panel) 133H 05/10/20 17:06: Bedside Glucose (Misc Panel) 129H 05/10/20 20:51: Phosphorus Level 2.7, Magnesium Level 2.4 05/11/20 00:13: Bedside Glucose (Misc Panel) 146H 05/11/20 05:04: Nucleated Red Blood Cells % (auto) 0.0, Prothrombin Time 15.7H, Prothromb Time International Ratio 1.22, Anion Gap 4L, Glomerular Filtration Rate > 60.0, Calcium Level 8.3L 05/11/20 05:11: Bedside Glucose (Misc Panel) 114H CBC/BMP Laboratory Tests 05/11/20 05:04 Microbiology Microbiology 05/02/20 Gram Stain - Final, Complete 05/02/20 Sputum Culture - Final, Complete Staphylococcus Aureus KELLEY VACA MD May 11, 2020 07:50
--- NOTE | 2020-05-11 17:27 | IPNPDOC ---
Subjective Date Seen The patient was seen on 05/11/20. Subjective Chief Complaint/HPI Pt seen and examined. Oriented to person and place. Still NPO. Speech is mumbled and hard to decipher. Nursing staff reports no overnight events. General: Reports: ROS Unobtainable Objective Physical Examination General Exam: Positive: Cooperative (pt still appears lethargic, however, he is more alert than yesterday and no longer obtunded), No Acute Distress Eye Exam: Positive: Conjunctiva & lids normal ENT Exam: Positive: Atraumatic Chest Exam: Positive: Clear to auscultation, Normal air movement; Negative: Rales, Rhonchi, Wheezing, Diminished Heart Exam: Positive: Rate Normal, Regular Rhythm Abdomen Exam: Positive: Normal bowel sounds, Soft Neuro Exam: Negative: Normal Speech (voice hoarse) Psych Exam: Positive: Mood NL Assessment /Plan Assessment # Hypernatremia due to osmotic diureses: Resolved and sodium within normal range however hemains NPO. Continue hypotonic TPN. New orders written. He is off DDAVP / D5w. # Hypokalemia: Potassium supplementation with the TPN. # History of systolic and diastolic congestive heart failure: Volume status is acceptable. Continue with hypotonic TPN at this time. Diuretics held. Will resume when indicated. # Nutrition: Pt is NPO. Repeat swallow evaluation and continue TPN in the meantime. Might need tube feeds. Plan/VTE VTE Prophylaxis Ordered?: No GME ATTESTATION My faculty preceptor for this patient encounter was physically present during the encounter and was fully available. All aspects of the patient interview, examination, medical decision making process, and medical care plan development were reviewed and approved by the faculty preceptor. The faculty preceptor is aware and concurs with the plan as stated in the body of this note and will attest to such by his/her cosignature. ATTENDING NOTE Now eunatremic. Still NPO. Continue hypotonic TPN. Orders written. Oriented x 2 at time of visit. Might need G-tube and tube feeds. Remains off diuretics and stable volume status. VS, I&O, 24H, Fishbone Vital Signs/I&O Vital Signs Date Time Temp Pulse Resp B/P (MAP) Pulse Ox O2 Delivery O2 Flow Rate FiO2 05/11/20 16:14 96.8 69 18 135/63 (87) 95 Room Air 05/11/20 07:15 2.0 I&O- Last 24 Hours up to 6 AM 05/11/20 06:00 Intake Total 100 ml Output Total 1450 ml Balance -1350 ml Laboratory Data 24H LABS Laboratory Tests 2 05/10/20 20:51: Phosphorus Level 2.7, Magnesium Level 2.4 05/11/20 00:13: Bedside Glucose (Misc Panel) 146H 05/11/20 05:04: Nucleated Red Blood Cells % (auto) 0.0, Prothrombin Time 15.7H, Prothromb Time International Ratio 1.22, Anion Gap 4L, Glomerular Filtration Rate > 60.0, Calcium Level 8.3L 05/11/20 05:11: Bedside Glucose (Misc Panel) 114H 05/11/20 11:16: Bedside Glucose (Misc Panel) 139H CBC/BMP Laboratory Tests 05/11/20 05:04 Microbiology Microbiology 05/02/20 Gram Stain - Final, Complete 05/02/20 Sputum Culture - Final, Complete Staphylococcus Aureus Melchor Ritchie DO May 11, 2020 17:27 OSIEL BAKER DO May 16, 2020 15:31
[2020-05-11] MEDS ORDERED: [UNRECOGNIZED DRUG - OTHER] IV SCH ×4 (18:00)
[2020-05-11] MEDS ORDERED: MAGNESIUM SULFATE IV SCH ×4 (18:00)
[2020-05-11] MEDS ORDERED: FAT EMULSION IV 20% 500 ML IV SCH (18:00)
[2020-05-11] MEDS ORDERED: POTASSIUM PHOSPHATE IV SCH ×4 (18:00)
[2020-05-12] MEDS: SODIUM CHLORIDE 0.9% INJ 10 ML SYR IV PRN ×2 (00:58→21:29)
[2020-05-12] MEDS: HumaLOG INSULIN (NovoLOG) PER UNIT SC SCH ×4 (00:58→18:07)
[2020-05-12] MEDS: NITROGLYCERIN 2% OINT 1 GM *U/D* PKT TOP SCH ×6 (01:02→21:31)
[2020-05-12] MEDS: ceFAZolin SOD 2 GM in IV 1 EA IV SCH ×3 (01:02→18:07)
[2020-05-12 05:35] LABS: HEMATOCRIT 30.1 % (42.0-52.0); HEMOGLOBIN 9.6 g/dl (13.5-17.5); MEAN CORPUSCULAR HEMOGLOBIN 33.3 pg (27.0-33.0); MEAN CORPUSCULAR HGB CONC 31.9 g/dl (32.0-36.5); MEAN CORPUSCULAR VOLUME 104.5 fl (80.0-96.0); PLATELET COUNT, AUTOMATED 172 10^3/uL (150-450); RED BLOOD COUNT 2.88 10^6/uL (4.30-6.10); WHITE BLOOD COUNT 11.2 10^3/uL (4.0-10.0)
[2020-05-12 06:00] VITALS: BP 140/85
[2020-05-12 06:05] LABS: BLOOD UREA NITROGEN 31 MG/DL (7-18); CALCIUM LEVEL 8.2 MG/DL (8.8-10.2); CARBON DIOXIDE LEVEL 26 MEQ/L (21-32); CHLORIDE LEVEL 116 MEQ/L (98-107); CREATININE FOR GFR 0.93 MG/DL (0.70-1.30); GLOMERULAR FILTRATION RATE > 60.0 (>42); GLUCOSE, FASTING 118 MG/DL (70-100); POTASSIUM SERUM 3.7 MEQ/L (3.5-5.1); SODIUM LEVEL 145 MEQ/L (136-145)
[2020-05-12 06:07] LABS: INR 1.23; PROTHROMBIN TIME 15.8 SECONDS (12.5-14.3)
[2020-05-12] MEDS: SODIUM CHLORIDE 0.9% INJ 10 ML SYR IV SCH ×2 (06:44→18:05)
[2020-05-12] MEDS: SLF 3 ML SYR IV SCH ×3 (06:45→21:29)
[2020-05-12] MEDS: SALIVA SUBSTITUTE(MOUTHKOTE) BTL MT SCH ×4 (09:09→21:28)
[2020-05-12] MEDS: PANTOPRAZOLE 40MG VIAL (C9113 PER 1) IV SCH ×2 (09:09→21:28)
--- NOTE | 2020-05-12 12:04 | IPNPDOC ---
Date Seen The patient was seen on 05/12/20. Progress Note SUBJECTIVE: still requiring 2 person assistance, but slightly improved upper body strength in pulling himself up from bed. no fever or chills, but increased wbc. swallow-eval -still w dysphagia/aspiration. on TPN managed by nephrology w normal sodium. no mental status changes. denies cough and sob. c/o generalized weakness, but cooperative w PT. no c/o dizziness or lightheadedness when he got up from bed. no recurrent epistaxis or hematemesis since off warfarin for mechanical aortic valve. OBJECTIVE: PHYSICAL EXAMINATION: VITAL SIGNS: See below GEN. APPEARANCE: aaox2 person and place. no respiratory distress no conversational dyspnea HEENT: no thyromegaly. moist mucous membranes CARDIOVASCULAR: S1, S2, irregularly irregular, Not tachycardic LUNGS: Diminished ABDOMEN: Obese, doughy positive bowel sounds 4 quadrants distended. No rebound, guarding.dove w clear yellow urine EXTREMITIES: Chronic venous stasis changes, + pitting edema b/l LABORATORY DATA: See below. IMAGING: See below MICROBIOLOGY: Please see below. ASSESSMENT: 80-year-old male with history of mechanical aortic valve on chronic warfarin, hypertension, anemia, COPD, CAD, reflux, BLANE was brought in by ambulance after the patient was found unresponsive in his car by his after being up all night sleeping on his chair due to epistaxis and using Q-tips to stop the bleeding. Patient was found to be mumbling by EMS and incomprehensible. He had no tonic-clonic activity and remained confused and mumbling despite multiple Narcan's in the ER, CT of the head was negative for acute intracranial abnormal ity. Glucose was 121. Ammonia was normal at 15. He was afebrile chest x-ray was negative. Urine and urine tox screen are still pending. Hospitalist was called to admit for altered mental status, found to be in decompensated congestive heart failure with acute hypercapnic respiratory failure requiring intubation, mechanical ventilation, s/p extubation 05/02/20. Acute CHF exacerbation with preserved systolic function/diastolic dysfunction -Complicated by acute respiratory acidosis, hypoxic, and hypercapnic respiratory failure requiring intubation and mechanical ventilation on 04/29/2020 -s/p intubation on admission -extubated 05/02/20 -On strict I's and O's, daily weights -on no diuretics due to severe water deficit from npo status from aspiration risk. -nephrology consulted for fluid balance mgt. -on TPN. sodium normal 145 Acute hypercarbic and hypoxic respiratory failure with acute Respiratory acidosis, resolved -Due to his decompensated congestive heart failure -resolved with intubation and mechanical ventilation -extubated 05/02/20 Acute metabolic encephalopathy,resolved -s/p extubation -secondary to pna and chf -since off warfarin for gi bleed, concern for cva due to mechanical aortic valve -negative ct head w/o contrast -completing 14days abx for mssa pna Acute GI bleed -In the setting of chronic warfarin for mechanical aortic valve. -Patient's hemoglobin, hematocrit, as well as vital signs remained stable without any acute indication for emergent endoscopy. -For now. Patient has been off warfarin -on ppi and carafate -per surgery Dr. Zavala, hold off on EGD and treat conservatively -start on heparin iv gtt w/o bolus and monitor h&h Hypokalemia -resolved with supplementation Acute on chronic kidney disease stage III -Due to congestive heart failure exacerbation s/p Lasix diuresis -on strict I's and O's, daily weights -rubber gasket inspector trimmer consulted. MSSA Pneumonia -Bilateral infiltrates -s/p vancomycin and cefepime -on iv cefazolin -to complete a total of 14 days abx Epistaxis -No recurrent episode -Keep O2 sat greater than 90% BLANE noncompliant w cpap Mechanical aortic valve -Held anticoagulation with warfarin on admission due to epistaxis and bloody coffee ground suctioning via OG tube when intubated and ventilated from possible GI bleed. -CT head negative for acute hemorrhage on admission -repeat stat ct w/o contrast negative -will start on iv heparin gtt and monitor h&h Hypertension -stable Chronic anemia/ recent epistaxis/bloody OG tube GI bleed -no acute need for rbc transfusion -monitor recurrent epistaxis while iv heparin gtt started Hypothyroidism -T4 is normal. No need for supplementation COPD, compensated -Nebulizer CAD status post stent -Negative troponins code:full VS, I&O, 24H, Fishbone Vital Signs/I&O Vital Signs Date Time Temp Pulse Resp B/P (MAP) Pulse Ox O2 Delivery O2 Flow Rate FiO2 05/12/20 10:40 127/53 05/12/20 06:00 99.0 54 18 94 05/11/20 16:33 Room Air 05/11/20 07:15 2.0 I&O- Last 24 Hours up to 6 AM 05/12/20 06:00 Intake Total 2430 ml Output Total 1800 ml Balance 630 ml Laboratory Data 24H LABS Laboratory Tests 2 05/11/20 17:19: Bedside Glucose (Misc Panel) 126H 05/11/20 23:47: Bedside Glucose (Misc Panel) 122H 05/12/20 05:08: Nucleated Red Blood Cells % (auto) 0.0, Prothrombin Time 15.8H, Prothromb Time International Ratio 1.23, Anion Gap 3L, Glomerular Filtration Rate > 60.0, Calcium Level 8.2L 05/12/20 06:01: Bedside Glucose (Misc Panel) 155H CBC/BMP Laboratory Tests 05/12/20 05:08 Microbiology Microbiology 05/02/20 Gram Stain - Final, Complete 05/02/20 Sputum Culture - Final, Complete Staphylococcus Aureus KELLEY VACA MD May 12, 2020 12:04
[2020-05-12] MEDS ORDERED: HEPARIN SOD (PORCINE) 5000UNITS/ML 1ML VIAL/SYRINGE IV PRN (12:15)
--- NOTE | 2020-05-12 13:29 | IPN ---
PROGRESS NOTE DATE: 05/12/2020 SUBJECTIVE: Ronal is seen and examined this morning at the bedside. I found him to be quite oriented and conversational today. He was able to tell me the name of the hospital, the year, he inquired regarding the election news and he was cooperative with the physical exam. He still continues on TPN and has dysphagia and aspiration with swallow evaluation. PHYSICAL EXAMINATION: VITAL SIGNS: Temperature 99, pulse 54, respiratory rate 18, blood pressure 140/85, saturating 94% on room air. INTAKE AND OUTPUT: Intake yesterday was 2,430. Urine output was 1,550. Weight in the bed scale today is 108.7 kg. GENERAL: The patient was seen awake, alert, oriented x2, in no apparent distress. HEENT: Extraocular muscles intact. Tongue is very dry. Mucous membranes are gummy. HEART: Heart sounds are bradycardic. There is trace peripheral edema. LUNGS: Lungs sounds are symmetric without crackle or rale. He is seen on room air. There is no tachypnea nor accessory muscle use. ABDOMEN: Soft and nontender. GENITOURINARY: Shows indwelling Boyle catheter. MUSCULOSKELETAL: He moves all four extremities on command. There is no clubbing or cyanosis. LABORATORY STUDIES: Sodium 145, potassium 3.7, chloride 116, BUN 31, creatinine 0.9, Magnesium 2.4, phosphorous 2.7, hemoglobin 9.6, platelets 172,000. INPATIENT MEDICATIONS: The patient's medications were reviewed by myself. He is in for special formula TPN. His insulin was adjusted by the primary service. He was started on Heparin drip by the primary team. PROBLEMS: 1. Status post hypernatremia: Sodium level in the past two days has stabilized at 145 with special formula hypotonic TPN. He is no longer requiring D5W and his DDAVP was likewise discontinued several days ago. We will continue with the TPN until the patient is able to tolerate p.o. At this point, I feel he still needs special order TPN, so nephrology will continue to follow him for the time-being. 2. Hypokalemia: He was receiving adequate potassium supplementation with the TPN in the form of potassium phosphate. 3. History of systolic and diastolic congestive heart failure: His diuretics have been on hold since April. His free water deficit has resolved. He is saturating while on room air. His salt levels have stabilized. Diuretics will be resumed when indicated. 4. Status post metabolic encephalopathy: His mentation has been improving on a daily basis and was multifactorial and due to critical illness, pneumonia, congestive heart failure, ventilator dependent respiratory failure and severe and significant hypernatremia. He is going to need extensive rehabilitation and may need PEG tube if he can not pass swallow eval. MTDD
[2020-05-12 14:00] VITALS: BP 117/51
[2020-05-12 14:15] LABS: INR 1.17; PROTHROMBIN TIME 15.1 SECONDS (12.5-14.3)
[2020-05-12] MEDS: HEPARIN DRIP 25,000 UNITS in IV 1 EA IV SCH (14:51)
[2020-05-12] MEDS ORDERED: POTASSIUM PHOSPHATE IV SCH ×6 (18:00)
[2020-05-12] MEDS ORDERED: MAGNESIUM SULFATE IV SCH ×6 (18:00)
[2020-05-12] MEDS ORDERED: FAT EMULSION IV 20% 500 ML IV SCH (18:00)
[2020-05-12] MEDS ORDERED: [UNRECOGNIZED DRUG - OTHER] IV SCH ×6 (18:00)
[2020-05-12 19:46] VITALS: BP 111/67
[2020-05-13] MEDS: HumaLOG INSULIN (NovoLOG) PER UNIT SC SCH ×4 (00:07→18:00)
[2020-05-13] MEDS: NITROGLYCERIN 2% OINT 1 GM *U/D* PKT TOP SCH ×5 (02:25→18:35)
[2020-05-13] MEDS: ceFAZolin SOD 2 GM in IV 1 EA IV SCH ×3 (02:25→18:30)
[2020-05-13 05:11] LABS: HEMATOCRIT 31.2 % (42.0-52.0); HEMOGLOBIN 9.9 g/dl (13.5-17.5); MEAN CORPUSCULAR HEMOGLOBIN 32.7 pg (27.0-33.0); MEAN CORPUSCULAR HGB CONC 31.7 g/dl (32.0-36.5); PLATELET COUNT, AUTOMATED 189 10^3/uL (150-450); RED BLOOD COUNT 3.03 10^6/uL (4.30-6.10)
[2020-05-13 05:15] VITALS: BP 147/60
[2020-05-13 05:26] LABS: INR 1.22; PROTHROMBIN TIME 15.7 SECONDS (12.5-14.3)
[2020-05-13] MEDS: SODIUM CHLORIDE 0.9% INJ 10 ML SYR IV SCH ×2 (06:00→18:00)
[2020-05-13] MEDS: SLF 3 ML SYR IV SCH ×3 (06:13→22:00)
[2020-05-13] MEDS: HEPARIN DRIP 25,000 UNITS in IV 1 EA IV SCH ×3 (06:15→21:23)
[2020-05-13 06:34] LABS: BLOOD UREA NITROGEN 24 MG/DL (7-18); CALCIUM LEVEL 8.6 MG/DL (8.8-10.2); CARBON DIOXIDE LEVEL 24 MEQ/L (21-32); CHLORIDE LEVEL 111 MEQ/L (98-107); CREATININE FOR GFR 0.91 MG/DL (0.70-1.30); GLOMERULAR FILTRATION RATE > 60.0 (>42); GLUCOSE, FASTING 110 MG/DL (70-100); NT-PRO BNP 938 PG/ML (<450); POTASSIUM SERUM 3.8 MEQ/L (3.5-5.1); SODIUM LEVEL 143 MEQ/L (136-145)
[2020-05-13 06:52] LABS: PARTIAL THROMBOPLASTIN TIME 191.6 SECONDS (24.2-38.5)
[2020-05-13 10:00] VITALS: BP 152/54
--- NOTE | 2020-05-13 10:09 | REP ---
INDICATION: left arm edema r/o dvt COMPARISON: None. TECHNIQUE: Peñaloza scale and color Doppler evaluation left upper extremity using linear high frequency transducer. FINDINGS: Ultrasound examination of the left upper extremity demonstrates normal compressibility, flow and wave patterns in response to respiration and augmentation. There is no evidence for deep venous thrombosis. PICC line identified extending into the basilic vein. IMPRESSION: No evidence for deep venous thrombosis. <Electronically signed by Young Garcia > 05/13/20 [id number]
[2020-05-13] MEDS: SALIVA SUBSTITUTE(MOUTHKOTE) BTL MT SCH ×4 (10:18→21:25)
[2020-05-13] MEDS: PANTOPRAZOLE 40MG VIAL (C9113 PER 1) IV SCH ×2 (10:21→21:25)
--- NOTE | 2020-05-13 11:55 | IPNPDOC ---
Date Seen The patient was seen on 05/13/20. Progress Note SUBJECTIVE: persistent dysphagia, slow to speak but w/o expressive or receptive aphasia. restarted oniv heparin gtt to monitor for bleeding either gi or epistaxis to get pt back on warfarin for mechanical aortic valve prophylaxis. low grade temp 100, but denies any new symptoms still w cough. OBJECTIVE: PHYSICAL EXAMINATION: VITAL SIGNS: See below GEN. APPEARANCE:slow to speak. face is symmetric appropriate aaox2 person and place only appropriate clotted blood in philtrum and left nares. no respiratory distress HEENT: no thyromegaly. drymucous membranes CARDIOVASCULAR: S1, S2, irregularly irregular, Not tachycardic LUNGS: Diminished ABDOMEN: Obese, doughy positive bowel sounds 4 quadrants distended. No rebound, guarding.dove w clear yellow urine EXTREMITIES: Chronic venous stasis changes, + pitting edema b/l LABORATORY DATA: See below. IMAGING: See below MICROBIOLOGY: Please see below. ASSESSMENT: 80-year-old male with history of mechanical aortic valve on chronic warfarin, hypertension, anemia, COPD, CAD, reflux, BLANE was brought in by ambulance after the patient was found unresponsive in his car by his after being up all night sleeping on his chair due to epistaxis and using Q-tips to stop the bleeding. Patient was found to be mumbling by EMS and incomprehensible. He had no tonic-clonic activity and remained confused and mumbling despite multiple Narcan's in the ER, CT of the head was negative for acute intracranial abnormality. Glucose was 121. Ammonia was normal at 15. He was afebrile chest x- ray was negative. Urine and urine tox screen are still pending. Hospitalist was called to admit for altered mental status, found to be in decompensated conges tive heart failure with acute hypercapnic respiratory failure requiring intubation, mechanical ventilation, s/p extubation 05/02/20. Acute CHF exacerbation with preserved systolic function/diastolic dysfunction Acute hypercarbic and hypoxic respiratory failure with acute Respiratory acidosis s/p intubation/extubation/mechanical ventilation Acute metabolic encephalopathy,resolved Acute GI bleed-In the setting of chronic warfarin for mechanical aortic valve. Hypernatremia/Dehydration Dysphagia Aspiration MSSA Pneumonia Epistaxis BLANE noncompliant w cpap Acute blood loss from epistaxis and gi loss Mechanical aortic valve Hypertension Hypothyroidism COPD, compensated CAD status post stent acute metabolic encephalopathy PLAN: to complete 14days abx for MSSA PNA, still on TPN managed by nephrology. still dysphagic and aspiration risk. repeat CT head to r/o CVA. back on heparin to bridge w warfarin to target inr 2.5 to 3.5 if no recurrent epistaxis or gi bleed. hemoglobin stable. ARU screen. still w dove. VS, I&O, 24H, Fishbone Vital Signs/I&O Vital Signs Date Time Temp Pulse Resp B/P (MAP) Pulse Ox O2 Delivery O2 Flow Rate FiO2 05/13/20 10:00 97.4 57 34 152/54 (86) 99 Room Air 05/11/20 07:15 2.0 I&O- Last 24 Hours up to 6 AM 05/13/20 06:00 Intake Total 2730 ml Output Total 1450 ml Balance 1280 ml Laboratory Data 24H LABS Laboratory Tests 2 05/12/20 11:54: Bedside Glucose (Misc Panel) 112H 05/12/20 13:29: Prothrombin Time 15.1H, Prothromb Time International Ratio 1.17, Activated Partial Thromboplast Time 30.0 05/12/20 16:50: Bedside Glucose (Misc Panel) 116H 05/12/20 21:05: Activated Partial Thromboplast Time 48.6H 05/12/20 23:46: Bedside Glucose (Misc Panel) 111H 05/13/20 05:03: Nucleated Red Blood Cells % (auto) 0.0, Prothrombin Time 15.7H, Prothromb Time International Ratio 1.22, Activated Partial Thromboplast Time 191.6*H, Anion Gap 8, Glomerular Filtration Rate > 60.0, Calcium Level 8.6L, TX-Rgr-L-Type Natriuretic Peptide 938H 05/13/20 05:53: Bedside Glucose (Misc Panel) 106 CBC/BMP Laboratory Tests 05/13/20 05:03 KELLEY VACA MD May 13, 2020 11:55
--- NOTE | 2020-05-13 12:56 | REP ---
INDICATION: mechanical aortic valve off warfarin, ams r/o cva. COMPARISON: Comparison is made with multiple prior studies dated May 03, 2020, April 30, 2020, and February 10, 2018.. TECHNIQUE: Helical scanning is acquired. 5 mm axial images were reformatted. Coronal MPR images were generated. FINDINGS: Bone window settings demonstrate an intact bony calvarium. There is no evidence of skull fracture or incidental bony calvarial lesion. The visualized paranasal sinuses appear clear. No intraorbital abnormality is seen. On soft tissue window setting images; the lateral, third, and fourth ventricles are normal in size and position. Peñaloza-white differentiation pattern is normal above and below the tentorium. There are is no evidence of intracranial hemorrhage. No mass, edema, infarction, or midline shift is seen. No extra-axial fluid collection is appreciated. Fairly extensive vascular calcifications again noted at the skull base. There is generalized volume loss as before. Minimal small vessel changes are noted. IMPRESSION: Mild small vessel changes vascular calcification and generalized volume loss again noted. No acute intracranial abnormality.. <Electronically signed by Tony Apodaca > 05/13/20 1020
[2020-05-13 13:24] VITALS: BP 147/54
--- NOTE | 2020-05-13 15:54 | IPN ---
PROGRESS NOTE DATE: 05/13/2020 SUBJECTIVE: Ronal is seen and examined this morning at the bedside. Nursing staff reports he was oriented times two this morning. He seems to wax and wane. He remains dysphagic and continues on total parenteral nutrition (TPN). Has not been requiring any oxygen and denies any complaints when I see him. Had low-grade fever of 100.0 early this morning. Temperature current 96.8, pulse 70, respiratory rate 34, blood pressure 147/54, saturating 99% on room air. Intake yesterday was 1989. Urine output was 1450. Weight in the bed scale today is 10.5 kg. General: Patient is seen lying in bed, elderly male in no apparent distress. Makes eye contact. Tongue is dry. Neck is supple. Jugular veins are not elevated. Heart sounds are irregular. There is trace peripheral edema. Lungs show anterior auscultation only. Symmetric breath sounds, diminished at the bases. Abdomen is obese and soft. He does not grimace to palpation. Genitourinary shows indwelling Boyle catheter. Neurologic: His mentation waxes and wanes. He is oriented times two at the time of my visit. LABORATORY DATA: Sodium 143, potassium 3.8, bicarbonate 24, BUN 24, creatinine 0.9. BNP 938. Hemoglobin 9.9, platelets 189. Head CT this morning shows no acute abnormality. Duplex of the left arm is negative for deep venous thrombosis (DVT). INPATIENT MEDICATIONS: Orders for TPN are written. His remainder of medications show heparin drip which was adjusted by the primary service, insulin which was adjusted by the primary service, and no other medications changes the past 24 hours. PROBLEMS: 1. Chronic Right heart failure. Echocardiogram from April 30 reviewed. Patient's hypernatremia has resolved. In terms of nutrition, he remains wholly TPN dependent. I added a brain natriuretic peptide (BNP) on to the labs today, and it is 950. Will likely need to resume maintenance diuretic over the next couple of days. He is not yet taking PO. 2. Status post hypernatremia. Patient's severe hypernatremia has resolved and not recurred for the past 3 days. He is on special ordered TPN, which is hypotonic. I would continue the same for now, and his orders are reformulated daily based on his electrolytes. 3. Metabolic encephalopathy. Patient's mentation has improved this week as compared to prior. On most days when I see him, he is at least oriented times two. His electrolyte abnormalities have significantly improved, but he is still TPN dependent and dysphagic. Primary team got an up-to-date head CT. His orders for TPN are re-written. His Boyle can be discontinued with postvoid check. MTDD
[2020-05-13] MEDS ORDERED: POTASSIUM PHOSPHATE IV SCH ×4 (18:00)
[2020-05-13] MEDS ORDERED: MAGNESIUM SULFATE IV SCH ×4 (18:00)
[2020-05-13] MEDS ORDERED: [UNRECOGNIZED DRUG - OTHER] IV SCH ×4 (18:00)
[2020-05-13] MEDS ORDERED: FAT EMULSION IV 20% 500 ML IV SCH (18:00)
--- NOTE | 2020-05-13 18:06 | IPNPDOC ---
Subjective Date Seen The patient was seen on 05/13/20. Subjective Chief Complaint/HPI Pt seen and examined. He was somnolent. Could not answer questions. Nursing staff denied any overnight events. Remains NPO. General: Reports: ROS Unobtainable Objective Physical Examination General Exam: Positive: No Acute Distress (somnolent) Eye Exam: Positive: Conjunctiva & lids normal, Other Eye Symptoms (could not open eyes to command) ENT Exam: Positive: Atraumatic Chest Exam: Positive: Clear to auscultation, Normal air movement; Negative: Rales, Rhonchi, Wheezing, Diminished Heart Exam: Positive: Rate Normal, Regular Rhythm Abdomen Exam: Positive: Normal bowel sounds, Soft Neuro Exam: Negative: Normal Speech (voice hoarse, garbled speech at times) Psych Exam: Positive: Mood NL Assessment /Plan Assessment # S/p hypernatremia: Patient's severe hypernatremia has resolved, continue special ordered TPN (hypotonic) as placed today (orders are reformulated daily, based on his electrolytes). # Chronic Right heart failure: volume status acceptable. Not presently on diure tic. # Metabolic encephalopathy: Patient's mentation is waxing and waning. Has periods when he is more alert per nurse. Remains NPO and on TPN. May require peg placement. Electrolyte abnormalities have resolved. Plan/VTE VTE Prophylaxis Ordered?: Yes (SCDs) GME ATTESTATION My faculty preceptor for this patient encounter was physically present during the encounter and was fully available. All aspects of the patient interview, examination, medical decision making process, and medical care plan development were reviewed and approved by the faculty preceptor. The faculty preceptor is aware and concurs with the plan as stated in the body of this note and will attest to such by his/her cosignature. ATTENDING NOTE Pt seen and examined. Discussed with hospitalist. Remains on TPN and orders written. Electrolytes acceptable. VS, I&O, 24H, Fishbone Vital Signs/I&O Vital Signs Date Time Temp Pulse Resp B/P (MAP) Pulse Ox O2 Delivery O2 Flow Rate FiO2 05/13/20 14:56 147/54 05/13/20 13:24 96.8 70 40 95 Room Air 05/11/20 07:15 2.0 l I&O- Last 24 Hours up to 6 AM 05/13/20 06:00 Intake Total 2730 ml Output Total 1450 ml Balance 1280 ml Laboratory Data 24H LABS Laboratory Tests 2 05/12/20 21:05: Activated Partial Thromboplast Time 48.6H 05/12/20 23:46: Bedside Glucose (Misc Panel) 111H 05/13/20 05:03: Activated Partial Thromboplast Time 191.6*H, Nucleated Red Blood Cells % (auto) 0.0, Prothrombin Time 15.7H, Prothromb Time International Ratio 1.22, Anion Gap 8, Glomerular Filtration Rate > 60.0, Calcium Level 8.6L, VS-Mtf-F-Type Natriuretic Peptide 938H 05/13/20 05:53: Bedside Glucose (Misc Panel) 106 05/13/20 12:07: Bedside Glucose (Misc Panel) 120H 05/13/20 14:27: Activated Partial Thromboplast Time 100.1H CBC/BMP Laboratory Tests 05/13/20 05:03 Melchor Ritchie DO May 13, 2020 18:06 OSIEL BAKER DO May 25, 2020 11:36
[2020-05-13 22:00] VITALS: BP 138/64
[2020-05-14] MEDS: NITROGLYCERIN 2% OINT 1 GM *U/D* PKT TOP SCH ×7 (02:00→22:01)
[2020-05-14 03:16] VITALS: BP 130/90
[2020-05-14] MEDS: ceFAZolin SOD 2 GM in IV 1 EA IV SCH ×3 (03:24→17:08)
[2020-05-14] MEDS: SODIUM CHLORIDE 0.9% INJ 10 ML SYR IV SCH ×2 (05:29→17:11)
[2020-05-14] MEDS: HumaLOG INSULIN (NovoLOG) PER UNIT SC SCH ×4 (05:53→17:10)
[2020-05-14] MEDS: SLF 3 ML SYR IV SCH ×3 (05:54→21:58)
[2020-05-14 05:56] LABS: HEMOGLOBIN 9.2 g/dl (13.5-17.5); MEAN CORPUSCULAR HEMOGLOBIN 32.6 pg (27.0-33.0); MEAN CORPUSCULAR HGB CONC 31.7 g/dl (32.0-36.5); MEAN CORPUSCULAR VOLUME 102.8 fl (80.0-96.0); PLATELET COUNT, AUTOMATED 204 10^3/uL (150-450); RED BLOOD COUNT 2.82 10^6/uL (4.30-6.10); WHITE BLOOD COUNT 9.7 10^3/uL (4.0-10.0)
[2020-05-14 06:00] VITALS: BP 144/69
[2020-05-14 06:10] LABS: INR 1.17; PROTHROMBIN TIME 15.2 SECONDS (12.5-14.3)
[2020-05-14 06:12] LABS: PARTIAL THROMBOPLASTIN TIME 95.5 SECONDS (24.2-38.5)
[2020-05-14 06:14] LABS: BLOOD UREA NITROGEN 22 MG/DL (7-18); CALCIUM LEVEL 8.2 MG/DL (8.8-10.2); CARBON DIOXIDE LEVEL 25 MEQ/L (21-32); CHLORIDE LEVEL 111 MEQ/L (98-107); CREATININE FOR GFR 0.79 MG/DL (0.70-1.30); GLOMERULAR FILTRATION RATE > 60.0 (>42); GLUCOSE, FASTING 123 MG/DL (70-100); POTASSIUM SERUM 3.8 MEQ/L (3.5-5.1); SODIUM LEVEL 143 MEQ/L (136-145)
[2020-05-14] MEDS: HEPARIN DRIP 25,000 UNITS in IV 1 EA IV SCH ×3 (08:14→11:21)
[2020-05-14] MEDS: PANTOPRAZOLE 40MG VIAL (C9113 PER 1) IV SCH ×2 (09:20→21:58)
[2020-05-14] MEDS: SALIVA SUBSTITUTE(MOUTHKOTE) BTL MT SCH ×5 (09:20→21:58)
[2020-05-14 10:32] LABS: MAGNESIUM LEVEL 2.1 MG/DL (1.8-2.4); PHOSPHORUS LEVEL 3.3 MG/DL (2.5-4.9)
--- NOTE | 2020-05-14 11:28 | IPNPDOC ---
Date Seen The patient was seen on 05/14/20. Progress Note SUBJECTIVE: still an aspiration risk, unable to give oral intake. on tpn. no fever chills. still coughs w shite sputum. no epistaxis or coffee ground emesis. denies brbpr or black stools since iv heparin started. unable to take warfarin due to aspiration risk OBJECTIVE: PHYSICAL EXAMINATION: VITAL SIGNS: See below GEN. APPEARANCE:no distress no pallor or cyanosis HEENT: no thyromegaly. drymucous membranes dried blood in philtrum CARDIOVASCULAR: S1, S2, irregularly irregular, Not tachycardic LUNGS: Diminished ABDOMEN: Obese, doughy positive bowel sounds 4 quadrants distended. No rebound, guarding.dove w clear yellow urine EXTREMITIES: Chronic venous stasis changes, + pitting edema b/l LABORATORY DATA: See below. IMAGING: See below MICROBIOLOGY: Please see below. ASSESSMENT: 80-year-old male with history of mechanical aortic valve on chronic warfarin, hypertension, anemia, COPD, CAD, reflux, BLANE was brought in by ambulance after the patient was found unresponsive in his car by his after being up all night sleeping on his chair due to epistaxis and using Q-tips to stop the bleeding. Patient was found to be mumbling by EMS and incomprehensible. He had no tonic-clonic activity and remained confused and mumbling despite multiple Narcan's in the ER, CT of the head was negative for acute intracranial abnormality. Glucose was 121. Ammonia was normal at 15. He was afebrile chest x- ray was negative. Urine and urine tox screen are still pending. Hospitalist was called to admit for altered mental status, found to be in decompensated congestive heart failure with acute hypercapnic respiratory failure requiring intubation, mechanical ventilation, s/p extubation 05/02/20. Acute CHF exacerbation with preserved systolic function/diastolic dysfunction Acute hypercarbic and hypoxic respiratory failure with acute Respiratory acidosis s/p intubation/extubation/mechanical ventilation Acute metabolic encephalopathy,resolved Acute GI bleed-In the setting of chronic warfarin for mechanical aortic valve. Hypernatremia/Dehydration Dysphagia Aspiration MSSA Pneumonia Epistaxis BLANE noncompliant w cpap Acute blood loss from epistaxis and gi loss Mechanical aortic valve Hypertension Hypothyroidism COPD, compensated CAD status post stent acute metabolic encephalopathy PLAN: still on TPN due to aspiration risk. will need to discuss PEG tube w vs tpn for another week and recheck swallow eval next sunday. pt will need to resume warfarin. repeat ct head no cva . will need aru once medically stable nephrology corrected pt's water deficit with normal sodium. VS, I&O, 24H, Fishbone Vital Signs/I&O Vital Signs Date Time Temp Pulse Resp B/P (MAP) Pulse Ox O2 Delivery O2 Flow Rate FiO2 05/14/20 09:28 150/63 05/14/20 06:00 97.8 76 28 96 Room Air 05/11/20 07:15 2.0 I&O- Last 24 Hours up to 6 AM 05/14/20 06:00 Intake Total 0 ml Output Total 1175 ml Balance -1175 ml Laboratory Data 24H LABS Laboratory Tests 2 05/13/20 12:07: Bedside Glucose (Misc Panel) 120H 05/13/20 14:27: Activated Partial Thromboplast Time 100.1H 05/13/20 17:50: Bedside Glucose (Misc Panel) 122H 05/13/20 21:43: Activated Partial Thromboplast Time 89.8H 05/14/20 03:23: Bedside Glucose (Misc Panel) 123H 05/14/20 05:28: Nucleated Red Blood Cells % (auto) 0.0, Prothrombin Time 15.2H, Prothromb Time International Ratio 1.17, Activated Partial Thromboplast Time 95.5H, Anion Gap 7L, Glomerular Filtration Rate > 60.0, Calcium Level 8.2L, Phosphorus Level 3.3, Magnesium Level 2.1 05/14/20 05:48: Bedside Glucose (Misc Panel) 116H 05/14/20 11:23: Bedside Glucose (Misc Panel) 125H CBC/BMP Laboratory Tests 05/14/20 05:28 KELLEY VACA MD May 14, 2020 11:28
[2020-05-14 13:12] VITALS: BP 119/45
[2020-05-14] MEDS: WARFARIN SOD 5MG TAB PO SCH (17:09)
[2020-05-14] MEDS ORDERED: MAGNESIUM SULFATE IV SCH ×6 (18:00)
[2020-05-14] MEDS ORDERED: [UNRECOGNIZED DRUG - OTHER] IV SCH ×6 (18:00)
[2020-05-14] MEDS ORDERED: POTASSIUM PHOSPHATE IV SCH ×6 (18:00)
[2020-05-14] MEDS ORDERED: FAT EMULSION IV 20% 500 ML IV SCH (18:00)
--- NOTE | 2020-05-14 20:37 | IPN ---
PROGRESS NOTE DATE: 05/14/2020 SUBJECTIVE: Ronal was seen and examined this morning at the bedside. I found him oriented x1 at the time of my visit. He continues on room air. He continues on TPN and he is not taking oral intake. His electrolytes remain stable. Nursing staff denies any acute events. PHYSICAL EXAMINATION: VITAL SIGNS: Temperature 97.8, pulse 76, respiratory rate 16, blood pressure 119/45, saturating 95% on room air. INTAKE AND OUTPUT: Intake yesterday was 740. Urine output yesterday was 1,525. Weight in the bed scale today is 108.7 kg. GENERAL: The patient is seen lying in bed, an elderly male, drowsy but arousable, only oriented to himself. HEENT: He does not make eye contact. Tongue is very dry. NECK: Supple. Jugular veins are not elevated. HEART: Heart sounds are irregular S1, S2. There is dependent edema in the sacrum, but no peripheral edema. LUNGS: Lung sounds are symmetric. There is no tachypnea. There is no crackle or rale. ABDOMEN: Obese and soft. He does not grimace to palpation. GENITOURINARY: Shows catheter with clear yellow urine. NEUROLOGIC: He is oriented only to person. He does not follow commands and his speech is mostly incoherent today. SKIN: Warm and dry. Normal turgor. LABORATORY STUDIES: Sodium 143, potassium 3.8, bicarbonate 25, BUN 22, creatinine 0.7. Magnesium 2.1, phosphorous 3.3, hemoglobin 9.2, platelets 204,000. INR 1.1. INPATIENT MEDICATIONS: Reviewed by myself. He continues on TPN and he was started on Coumadin 5 mg p.o. daily. The remainder of his medications are unchanged as compared to yesterday. PROBLEMS: 1. Failure to thrive with poor nutrition: The patient's mentation remains waxing and waning. He was only oriented x1 at the time of my visit. He continues on TPN and new orders are written for today. His electrolytes are all acceptable. 2. Chronic right heart failure: Echocardiogram from April 30 noted. Volume status remains compensated. He is on room air. He is currently not on any diuretic and we will keep an eye on his volume status. Continue daily weights and monitoring urine output. [facility]
[2020-05-14 22:00] VITALS: BP 124/57
[2020-05-15] MEDS: HumaLOG INSULIN (NovoLOG) PER UNIT SC SCH ×5 (01:13→23:25)
[2020-05-15] MEDS: ceFAZolin SOD 2 GM in IV 1 EA IV SCH ×3 (01:14→18:19)
[2020-05-15] MEDS: NITROGLYCERIN 2% OINT 1 GM *U/D* PKT TOP SCH ×6 (01:18→23:24)
[2020-05-15] MEDS: HEPARIN DRIP 25,000 UNITS in IV 1 EA IV SCH ×2 (03:36→15:53)
[2020-05-15 06:00] VITALS: BP 128/52
[2020-05-15] MEDS: SODIUM CHLORIDE 0.9% INJ 10 ML SYR IV SCH ×2 (06:00→18:00)
[2020-05-15] MEDS: SLF 3 ML SYR IV SCH ×3 (06:46→23:24)
[2020-05-15 06:50] LABS: HEMATOCRIT 29.2 % (42.0-52.0); HEMOGLOBIN 9.3 g/dl (13.5-17.5); MEAN CORPUSCULAR HEMOGLOBIN 32.9 pg (27.0-33.0); MEAN CORPUSCULAR HGB CONC 31.8 g/dl (32.0-36.5); MEAN CORPUSCULAR VOLUME 103.2 fl (80.0-96.0); PLATELET COUNT, AUTOMATED 204 10^3/uL (150-450); RED BLOOD COUNT 2.83 10^6/uL (4.30-6.10); WHITE BLOOD COUNT 8.4 10^3/uL (4.0-10.0)
[2020-05-15 06:58] LABS: INR 1.12; PROTHROMBIN TIME 14.7 SECONDS (12.5-14.3)
[2020-05-15 07:00] LABS: PARTIAL THROMBOPLASTIN TIME 78.5 SECONDS (24.2-38.5)
[2020-05-15 07:10] LABS: BLOOD UREA NITROGEN 22 MG/DL (7-18); CALCIUM LEVEL 8.5 MG/DL (8.8-10.2); CARBON DIOXIDE LEVEL 24 MEQ/L (21-32); CHLORIDE LEVEL 113 MEQ/L (98-107); CREATININE FOR GFR 0.83 MG/DL (0.70-1.30); GLOMERULAR FILTRATION RATE > 60.0 (>42); GLUCOSE, FASTING 92 MG/DL (70-100); SODIUM LEVEL 142 MEQ/L (136-145)
[2020-05-15] MEDS: SALIVA SUBSTITUTE(MOUTHKOTE) BTL MT SCH ×3 (09:56→18:20)
[2020-05-15] MEDS: PANTOPRAZOLE 40MG VIAL (C9113 PER 1) IV SCH ×2 (09:56→23:24)
[2020-05-15] MEDS ORDERED: FUROSEMIDE 40MG/4ML VIAL (J1940) IV ONE (11:15)
--- NOTE | 2020-05-15 12:01 | IPNPDOC ---
Date Seen The patient was seen on 05/15/20. Progress Note SUBJECTIVE: c/o nasal dryness. advanced to pureed diet with thickened liquids,resumed on warfarin with heparin iv gtt as bridge . denies sob despite tpn and heparin iv gtt. OBJECTIVE: PHYSICAL EXAMINATION: VITAL SIGNS: See below GEN. APPEARANCE:no distress aao to person. pleasant slow to follow commands but appropriate. speech is fluent HEENT: no thyromegaly. drymucous membranes dried blood in philtrum CARDIOVASCULAR: S1, S2, irregularly irregular, Not tachycardic LUNGS: Diminished ABDOMEN: Obese, doughy positive bowel sounds 4 quadrants distended. No rebound, guarding.dove w clear yellow urine EXTREMITIES: Chronic venous stasis changes, + pitting edema b/l LABORATORY DATA: See below. IMAGING: See below MICROBIOLOGY: Please see below. ASSESSMENT: 80-year-old male with history of mechanical aortic valve on chronic warfarin, hypertension, anemia, COPD, CAD, reflux, BLANE was brought in by ambulance after the patient was found unresponsive in his car by his after being up all night sleeping on his chair due to epistaxis and using Q-tips to stop the bleeding. Patient was found to be mumbling by EMS and incomprehensible. He had no tonic-clonic activity and remained confused and mumbling despite multiple Narcan's in the ER, CT of the head was negative for acute intracranial abnormality. Glucose was 121. Ammonia was normal at 15. He was afebrile chest x- ray was negative. Urine and urine tox screen are still pending. Hospitalist was called to admit for altered mental status, found to be in decompensated congestive heart failure with acute hypercapnic respiratory failure requiring intubation, mechanical ventilation, s/p extubation 05/02/20. Acute CHF exacerbation with preserved systolic function/diastolic dysfunction Acute hypercarbic and hypoxic respiratory failure with acute Respiratory acidosis s/p intubation/extubation/mechanical ventilation Acute metabolic encephalopathy,resolved Acute GI bleed-In the setting of chronic warfarin for mechanical aortic valve. Hypernatremia/Dehydration Dysphagia Aspiration MSSA Pneumonia Epistaxis BLANE noncompliant w cpap Acute blood loss from epistaxis and gi loss Mechanical aortic valve Hypertension Hypothyroidism COPD, compensated CAD status post stent acute metabolic encephalopathy PLAN: now on pureed diet w thickened liquids. still on tpn until able to tolerate full diet. po meds resumed. dc heparin iv gtt once inr 2.5, and continue to monitor for gi bleed or recurrent epistaxis. sodium stable. aru screen. activity as tolerated,but needing 2person assist right now. says she would want him home w home PT, but pt still unable to be independent onADLs. VS, I&O, 24H, Fishbone Vital Signs/I&O Vital Signs Date Time Temp Pulse Resp B/P (MAP) Pulse Ox O2 Delivery O2 Flow Rate FiO2 05/15/20 06:49 128/55 05/15/20 06:00 97.9 66 22 96 Room Air 05/11/20 07:15 2.0 I&O- Last 24 Hours up to 6 AM 05/15/20 06:00 Intake Total 1414 ml Output Total 1750 ml Balance -336 ml Laboratory Data 24H LABS Laboratory Tests 2 05/14/20 11:23: Bedside Glucose (Misc Panel) 125H 05/14/20 16:22: Bedside Glucose (Misc Panel) 111H 05/15/20 00:29: Bedside Glucose (Misc Panel) 293H 05/15/20 05:29: Prothrombin Time 14.7H, Prothromb Time International Ratio 1.12, Activated Partial Thromboplast Time 78.5H, Anion Gap 5L, Glomerular Filtration Rate > 60.0, Calcium Level 8.5L 05/15/20 05:30: Nucleated Red Blood Cells % (auto) 0.0 05/15/20 06:07: Bedside Glucose (Misc Panel) 104 CBC/BMP Laboratory Tests 05/15/20 05:29 05/15/20 05:30 KELLEY VACA MD May 15, 2020 08:10
[2020-05-15 14:00] VITALS: BP 147/64
[2020-05-15] MEDS ORDERED: WARFARIN SOD 5MG TAB PO ONE (17:00)
[2020-05-15] MEDS ORDERED: MAGNESIUM SULFATE IV SCH ×4 (18:00)
[2020-05-15] MEDS ORDERED: [UNRECOGNIZED DRUG - OTHER] IV SCH ×4 (18:00)
[2020-05-15] MEDS ORDERED: POTASSIUM PHOSPHATE IV SCH ×4 (18:00)
[2020-05-15] MEDS: WARFARIN SOD 5MG TAB PO SCH (18:22)
[2020-05-15 22:00] VITALS: BP 156/58
[2020-05-15 22:54] VITALS: BP 133/57
[2020-05-16] MEDS: ceFAZolin SOD 2 GM in IV 1 EA IV SCH ×3 (02:57→18:00)
[2020-05-16] MEDS: NITROGLYCERIN 2% OINT 1 GM *U/D* PKT TOP SCH ×3 (02:57→09:48)
[2020-05-16] MEDS: SODIUM CHLORIDE 0.9% INJ 10 ML SYR IV SCH ×2 (05:29→18:00)
[2020-05-16] MEDS: HumaLOG INSULIN (NovoLOG) PER UNIT SC SCH ×2 (05:52→12:52)
[2020-05-16] MEDS: SLF 3 ML SYR IV SCH ×3 (05:53→21:28)
[2020-05-16] MEDS: HEPARIN DRIP 25,000 UNITS in IV 1 EA IV SCH ×2 (05:55→21:24)
[2020-05-16 06:00] VITALS: BP 128/55
[2020-05-16 06:26] LABS: HEMATOCRIT 29.2 % (42.0-52.0); HEMOGLOBIN 9.2 g/dl (13.5-17.5); MEAN CORPUSCULAR HEMOGLOBIN 32.7 pg (27.0-33.0); MEAN CORPUSCULAR HGB CONC 31.5 g/dl (32.0-36.5); MEAN CORPUSCULAR VOLUME 103.9 fl (80.0-96.0); PLATELET COUNT, AUTOMATED 222 10^3/uL (150-450); RED BLOOD COUNT 2.81 10^6/uL (4.30-6.10)
[2020-05-16 06:38] LABS: INR 1.16; PROTHROMBIN TIME 15.1 SECONDS (12.5-14.3)
[2020-05-16 06:40] LABS: PARTIAL THROMBOPLASTIN TIME 92.2 SECONDS (24.2-38.5)
[2020-05-16 06:49] LABS: ALBUMIN 2.2 GM/DL (3.2-5.2); BLOOD UREA NITROGEN 22 MG/DL (7-18); CALCIUM LEVEL 8.5 MG/DL (8.8-10.2); CARBON DIOXIDE LEVEL 27 MEQ/L (21-32); CHLORIDE LEVEL 109 MEQ/L (98-107); CREATININE FOR GFR 0.92 MG/DL (0.70-1.30); GLOMERULAR FILTRATION RATE > 60.0 (>42); GLUCOSE, FASTING 117 MG/DL (70-100); PHOSPHORUS LEVEL 3.3 MG/DL (2.5-4.9); POTASSIUM SERUM 3.8 MEQ/L (3.5-5.1); SODIUM LEVEL 143 MEQ/L (136-145)
--- NOTE | 2020-05-16 09:09 | IPNPDOC ---
Date Seen The patient was seen on 05/16/20. Progress Note SUBJECTIVE: no new complaints. denies n/v/abd pain, tolerating his pureed diet thickened liquids, but not eating 100% yet so still on tpn. no c/o sob but w slight cough. no diarrhea. OBJECTIVE: PHYSICAL EXAMINATION: VITAL SIGNS: See below GEN. APPEARANCE:no no distress HEENT: no thyromegaly. no jvd CARDIOVASCULAR: S1, S2, irregularly irregular, Not tachycardic LUNGS: Diminished ABDOMEN: Obese, doughy positive bowel sounds 4 quadrants distended. No rebound, guarding.dove w clear yellow urine EXTREMITIES: Chronic venous stasis changes, + pitting edema b/l LABORATORY DATA: See below. IMAGING: See below MICROBIOLOGY: Please see below. ASSESSMENT: 80-year-old male with history of mechanical aortic valve on chronic warfarin, hypertension, anemia, COPD, CAD, reflux, BLANE was brought in by ambulance after the patient was found unresponsive in his car by his after being up all night sleeping on his chair due to epistaxis and using Q-tips to stop the bleeding. Patient was found to be mumbling by EMS and incomprehensible. He had no tonic-clonic activity and remained confused and mumbling despite multiple Narcan's in the ER, CT of the head was negative for acute intracranial abnormality. Glucose was 121. Ammonia was normal at 15. He was afebrile chest x- ray was negative. Urine and urine tox screen are still pending. Hospitalist was called to admit for altered mental status, found to be in decompensated congestive heart failure with acute hypercapnic respiratory failure requiring intubation, mechanical ventilation, s/p extubation 05/02/20. Acute CHF exacerbation with preserved systolic function/diastolic dysfunction Acute hypercarbic and hypoxic respiratory failure with acute Respiratory acidosis s/p intubation/extubation/mechanical ventilation Acute metabolic encephalopathy,resolved Acute GI bleed-In the setting of chronic warfarin for mechanical aortic valve. Hypernatremia/Dehydration Dysphagia Aspiration MSSA Pneumonia Epistaxis BLANE noncompliant w cpap Acute blood loss from epistaxis and gi loss Mechanical aortic valve Hypertension Hypothyroidism COPD, compensated CAD status post stent acute metabolic encephalopathy PLAN: nephrology managing fluid balance. tpn until taking 100% of his meals. heat curer consulted. repeat swallow eval to eval for thin liquids in a few days. aru screen still on heparin iv gtt until inr 2.5 with warfarin increased to 7.5daily. despite being off warfarin, no cva on ct head x 3. VS, I&O, 24H, Fishbone Vital Signs/I&O Vital Signs Date Time Temp Pulse Resp B/P (MAP) Pulse Ox O2 Delivery O2 Flow Rate FiO2 05/16/20 06:00 98.0 55 31 128/55 (79) 95 Room Air 05/11/20 07:15 2.0 I&O- Last 24 Hours up to 6 AM 05/16/20 06:00 Intake Total 2448 ml Output Total 2525 ml Balance -77 ml Laboratory Data 24H LABS Laboratory Tests 2 05/15/20 11:51: Bedside Glucose (Misc Panel) 103 05/15/20 17:49: Bedside Glucose (Misc Panel) 111H 05/15/20 23:01: Bedside Glucose (Misc Panel) 119H 05/16/20 05:35: Nucleated Red Blood Cells % (auto) 0.0, Prothrombin Time 15.1H, Prothromb Time International Ratio 1.16, Activated Partial Thromboplast Time 92.2H, Anion Gap 7L, Glomerular Filtration Rate > 60.0, Calcium Level 8.5L, Phosphorus Level 3.3, Albumin 2.2L 05/16/20 05:47: Bedside Glucose (Misc Panel) 133H CBC/BMP Laboratory Tests 05/16/20 05:35 KELLEY VACA MD May 16, 2020 09:05
[2020-05-16 09:38] LABS: NT-PRO BNP 534 PG/ML (<450)
[2020-05-16] MEDS: PANTOPRAZOLE 40MG VIAL (C9113 PER 1) IV SCH ×2 (09:39→21:28)
--- NOTE | 2020-05-16 10:11 | REP ---
INDICATION: sob. COMPARISON: 05/07/2020 TECHNIQUE: Portable FINDINGS: The technique utilized in obtaining the radiograph has magnified the cardiac silhouette and accentuated the interstitial markings. The interstitial markings have increased compared to the prior exam. Left lower lobe discoid opacities have developed. There is minimal right CP angle blunting. There is cardiomegaly accentuated by technique. Note is again made of previous median sternotomy. The tip of the PICC line catheter is unchanged and again seen in the superior vena cava. There is no change in the osseous structures. IMPRESSION: Mild interstitial edema is suspected upon chronic changes with bibasilar subsegmental atelectatic change and fibrotic change. <Electronically signed by Ganesh Jacobson > 05/16/20 1000
[2020-05-16] MEDS ORDERED: FUROSEMIDE 40MG/4ML VIAL (J1940) IV ONE (10:45)
--- NOTE | 2020-05-16 11:04 | IPN ---
PROGRESS NOTE DATE: 05/15/2020 Mr. Roy is seen this morning on his bedside. He is awake and able to answer some simple questions, though he does not seem to be fully oriented. He remains on total parenteral nutrition (TPN) due to inability to swallow. REVIEW OF SYSTEMS: Otherwise unremarkable and patient is not able to provide much information himself. PHYSICAL EXAMINATION: Temperature 97.9 degrees Fahrenheit, heart rate 66 per minute, respiratory rate 22 per minute, blood pressure 130/56 mmHg and oxygen saturation 96% on room air. INTAKE AND OUPUT: Records from yesterday are almost even. His weight is up by a couple of pounds to 110.4 kg. HEAD: Atraumatic. NECK: Supple. Jugular venous distention (JVD) is elevated, at least about 10 cm above sternal angle. HEART SOUNDS: Regular. LUNGS: Diminished breath sounds and basilar rales. ABDOMEN: Protuberant and nontender. Bowel sounds are normal. EXTREMITIES: Without any cyanosis or clubbing. NEUROLOGIC: He is awake and able to answer simple questions by saying yes or no. He does not seem to be fully oriented. LABORATORY DATA: Today's laboratories show WBC 8.4, hemoglobin 9.3 and hematocrit 29.2, platelets 204. Sodium 142, potassium 4.0, chloride 113, CO2 24, BUN 22, creatinine 0.83, glucose 92, calcium 8.5. PROBLEMS: 1. Congestive heart failure. His volume status is slightly decompensated. He has known history of right-sided heart failure. I am going to give him one dose of Lasix 40 mg intravenously today. We will use diuretic as needed for now. 2. Hypernatremia. Sodium level has corrected and remains stable. He is currently receiving hypotonic TPN. 3. Nutrition. Patient has not been able to swallow due to altered mentation and has been on TPN for just over a week. His TPN orders are being written. 4. Anemia. At present, anemia has been stable and does not need any adjunct intervention. 5. Hypertension. Blood pressure seems well-controlled. No changes are being made today.
--- NOTE | 2020-05-16 13:50 | IPN ---
PROGRESS NOTE DATE: 05/16/2020 SUBJECTIVE: Mr. Roy is seen this morning on his bedside. He is awake and able to have a conversation. Nursing staff reports that he was able to eat breakfast this morning with some assistance. The patient denies any nausea or vomiting. OBJECTIVE: VITAL SIGNS: Temperature 98 degrees Fahrenheit, heart rate 56 per minute, respiratory rate 18 per minute, blood pressure 143/62 mmHg, and oxygen saturation 95% on room air. INTAKE AND OUTPUT: From yesterday shows a negative fluid balance of about 850 mL. HEAD: Atraumatic. NECK: Supple. JVD is about 8-9 cm above the sternal angle. HEART: Sounds are regular. LUNGS: Diminished breath sounds at the bases. ABDOMEN: Soft and nontender. Bowel sounds are normal. EXTREMITIES: Without any cyanosis or clubbing. NEUROLOGIC: He seems to be much improved and able to have a conversation. LABORATORY DATA: Today's labs show a WBC count of 8.0, hemoglobin 9.2, and hematocrit 29.2. Sodium 143, potassium 3.8, CO2 of 27, BUN 22, and creatinine 0.92. Calcium 8.5 and phosphorus 3.3. BNP level is down to 534. PROBLEMS: 1. Congestive heart failure. Volume status has improved with intravenous Lasix one dose 40 mg given yesterday. I am going to give him one more dose of Lasix today 40 mg. 2. Hypertension. Blood pressure seems to be well-controlled. I am going to stop the nitroglycerin paste and we will monitor him closely. He is going to receive another dose of Lasix 40 mg today, which will help with his blood pressure also. 3. Nutrition. The patient is able to eat now and I am going to stop the total parenteral nutrition (TPN). 4. Hypernatremia. It was related to dehydration and has improved. His sodium level has remained normal for several days. TPN is being stopped and we will monitor his electrolytes over the next few days. He is not able to swallow very well and has been on thickened liquids, which might lead to hypernatremia again. In that situation, we will discuss further options. 5. Anemia. So far his anemia is stable and he does not need any urgent intervention.
[2020-05-16 14:00] VITALS: BP 122/55
[2020-05-16] MEDS ORDERED: WARFARIN SOD 7.5MG TAB PO SCH (17:00)
[2020-05-16] MEDS ORDERED: HumaLOG INSULIN (NovoLOG) PER UNIT SC SCH (18:00)
[2020-05-16] MEDS ORDERED: MAGNESIUM SULFATE IV SCH ×4 (18:00)
[2020-05-16] MEDS ORDERED: POTASSIUM PHOSPHATE IV SCH ×4 (18:00)
[2020-05-16] MEDS ORDERED: [UNRECOGNIZED DRUG - OTHER] IV SCH ×4 (18:00)
[2020-05-16 22:00] VITALS: BP 139/63
[2020-05-17] MEDS: ceFAZolin SOD 2 GM in IV 1 EA IV SCH ×2 (01:58→11:05)
[2020-05-17] MEDS: SODIUM CHLORIDE 0.9% INJ 10 ML SYR IV SCH ×2 (05:32→17:27)
[2020-05-17] MEDS: SLF 3 ML SYR IV SCH ×3 (05:33→21:29)
[2020-05-17 06:00] VITALS: BP 136/82
[2020-05-17 06:33] LABS: HEMATOCRIT 31.5 % (42.0-52.0); HEMOGLOBIN 9.9 g/dl (13.5-17.5); MEAN CORPUSCULAR HEMOGLOBIN 32.5 pg (27.0-33.0); MEAN CORPUSCULAR HGB CONC 31.4 g/dl (32.0-36.5); MEAN CORPUSCULAR VOLUME 103.3 fl (80.0-96.0); PLATELET COUNT, AUTOMATED 223 10^3/uL (150-450); RED BLOOD COUNT 3.05 10^6/uL (4.30-6.10)
[2020-05-17 06:40] LABS: INR 1.44; PROTHROMBIN TIME 17.9 SECONDS (12.5-14.3)
[2020-05-17 06:42] LABS: PARTIAL THROMBOPLASTIN TIME 102.2 SECONDS (24.2-38.5)
[2020-05-17 07:12] LABS: BLOOD UREA NITROGEN 23 MG/DL (7-18); CALCIUM LEVEL 8.6 MG/DL (8.8-10.2); CARBON DIOXIDE LEVEL 29 MEQ/L (21-32); CHLORIDE LEVEL 110 MEQ/L (98-107); CREATININE FOR GFR 0.87 MG/DL (0.70-1.30); GLOMERULAR FILTRATION RATE > 60.0 (>42); GLUCOSE, FASTING 92 MG/DL (70-100); POTASSIUM SERUM 3.9 MEQ/L (3.5-5.1); SODIUM LEVEL 144 MEQ/L (136-145)
[2020-05-17] MEDS: PANTOPRAZOLE 40MG VIAL (C9113 PER 1) IV SCH ×2 (08:44→21:28)
--- NOTE | 2020-05-17 10:15 | IPNPDOC ---
Date Seen The patient was seen on 05/17/20. Progress Note SUBJECTIVE: tolerating his pureed diet and thickened liquids w/o signs of aspiration. slow to feed himself w some dysmetria, but does well w assistance. tpn discontinued yesterday. heparin iv gtt w warfarin but still subtherapeutic inr for [facility] aortic valve. denies hematemesis, coffee ground emesis, n/v/ brbpr, melena. OBJECTIVE: PHYSICAL EXAMINATION: VITAL SIGNS: See below GEN. APPEARANCE:no no distress HEENT: no thyromegaly. no jvd no use of acc resp mm CARDIOVASCULAR: S1, S2, irregularly irregular, Not tachycardic LUNGS: Diminished no rales ABDOMEN: Obese, doughy positive bowel sounds 4 quadrants distended. No rebound, guarding.dove w clear yellow urine EXTREMITIES: Chronic venous stasis changes, + pitting edema b/l LABORATORY DATA: See below. IMAGING: See below MICROBIOLOGY: Please see below. ASSESSMENT: 80-year-old male with history of mechanical aortic valve on chronic warfarin, hypertension, anemia, COPD, CAD, reflux, BLANE was brought in by ambulance after the patient was found unresponsive in his car by his after being up all night sleeping on his chair due to epistaxis and using Q-tips to stop the bleeding. Patient was found to be mumbling by EMS and incomprehensible. He had no tonic-clonic activity and remained confused and mumbling despite multiple Narcan's in the ER, CT of the head was negative for acute intracranial abnormality. Glucose was 121. Ammonia was normal at 15. He was afebrile chest x- ray was negative. Urine and urine tox screen are still pending. Hospitalist was called to admit for altered mental status, found to be in decompensated congestive heart failure with acute hypercapnic respiratory failure requiring intubation, mechanical ventilation, s/p extubation 05/02/20. Acute CHF exacerbation with preserved systolic function/diastolic dysfunction Acute hypercarbic and hypoxic respiratory failure with acute Respiratory acidosis s/p intubation/extubation/mechanical ventilation -fluid balance managed by nephrology -off tpn -still on strict i/o daily weights Acute metabolic encephalopathy,resolved -treated for mssa abx Acute GI bleed-In the setting of chronic warfarin for mechanical aortic valve. -resolved -back on ac with iv heparin gtt bridged w warfarin, subtherapeutic Hypernatremia/Dehydration -managed by nephrology -resolved -off tpn Dysphagia/ Aspiration -on pureed diet and thickened liquids -repeat swallow eval MSSA Pneumonia -iv unasyn -afebrile no wbc Epistaxis -resolved BLANE noncompliant w cpap -chronic Acute blood loss from epistaxis and gi loss -stable hemoglobin Hypertension -controlled Hypothyroidism -on synthroid COPD, compensated -off prednisone CAD status post stent -no acute ischemic complaints ARU screen await repeat swallow eval to check if pt can tolerate thin liquids. VS, I&O, 24H, Fishbone Vital Signs/I&O Vital Signs Date Time Temp Pulse Resp B/P (MAP) Pulse Ox O2 Delivery O2 Flow Rate FiO2 05/17/20 06:00 97.3 73 24 136/82 (100) 96 Room Air 05/11/20 07:15 2.0 I&O- Last 24 Hours up to 6 AM 05/17/20 06:00 Intake Total 1653 ml Output Total 2825 ml Balance -1172 ml Laboratory Data 24H LABS Laboratory Tests 2 05/16/20 11:54: Bedside Glucose (Misc Panel) 117H 05/17/20 06:04: Nucleated Red Blood Cells % (auto) 0.0, Prothrombin Time 17.9H, Prothromb Time International Ratio 1.44, Activated Partial Thromboplast Time 102.2H, Anion Gap 5L, Glomerular Filtration Rate > 60.0, Calcium Level 8.6L CBC/BMP Laboratory Tests 05/17/20 06:04 KELLEY VACA MD May 17, 2020 09:32
[2020-05-17] MEDS: HEPARIN DRIP 25,000 UNITS in IV 1 EA IV SCH (11:03)
[2020-05-17 14:00] VITALS: BP 151/60
[2020-05-17] MEDS ORDERED: WARFARIN SOD 5MG TAB PO ONE (17:00)
--- NOTE | 2020-05-17 20:13 | IPN ---
NEPHROLOGY PROGRESS NOTE DATE: 05/17/2020 SUBJECTIVE: Mr. Roy is seen this morning on at his bedside. He is sitting in the bed awake and alert and talking normal. He reports eating well. His TPN was stopped yesterday and he was given a dose of Lasix. He denies any shortness of breath and oxygen saturation is 97% on room air. PHYSICAL EXAMINATION: VITAL SIGNS: Temperature 97 degrees Fahrenheit, heart rate 62 per minute, respiratory rate 20 per minute, blood pressure 136/82 mm of mercury and oxygen saturation is 96% on room air. INTAKE AND OUTPUT: Records show a negative fluid balance of about 600 mL over the last 24 hours. HEENT: His head is atraumatic. NECK: Supple and JVD minimally elevated now. HEART: Regular. LUNGS: Slightly diminished breath sounds at the bases. ABDOMEN: Soft and nontender and bowel sounds are normal. EXTREMITIES: Without any cyanosis or clubbing. LABORATORY STUDIES: Today's labs show a WBC count 8.0, hemoglobin 9.9 and hematocrit 31.5. Sodium 144, potassium 3.9, BUN 23 and creatinine 0.87. Glucose is 92 and calcium 8.6. PROBLEMS: 1. Congestive heart failure at present his volume status is very well compensated and I would not give him any more diuretics. He is on thickened liquids and is oral intake has been just barely adequate. TPN has already been stopped. 2. Hypernatremia his sodium level has been stable for the last several days. TPN has been stopped, and he will continue with a regular diet and normal oral fluid intake. 3. Nutrition - This patient is now eating well and TPN has already been stopped. PLAN: From a renal standpoint the patient is doing well and I am going to sign off. Please do not hesitate to call back should you need any further assistance.
[2020-05-17] MEDS: MIRALAX *UNIT DOSE* 17GM PACKET PO SCH (21:28)
[2020-05-17] MEDS: SENOKOT S TAB PO SCH (21:28)
[2020-05-17 22:00] VITALS: BP 137/54
[2020-05-18] MEDS: HEPARIN DRIP 25,000 UNITS in IV 1 EA IV SCH ×2 (01:54→16:38)
[2020-05-18 06:00] VITALS: BP 144/59
[2020-05-18] MEDS: SLF 3 ML SYR IV SCH (06:18)
[2020-05-18] MEDS: SODIUM CHLORIDE 0.9% INJ 10 ML SYR IV SCH ×2 (06:19→16:30)
[2020-05-18 07:20] LABS: HEMOGLOBIN 10.6 g/dl (13.5-17.5); MEAN CORPUSCULAR HEMOGLOBIN 32.4 pg (27.0-33.0); MEAN CORPUSCULAR HGB CONC 31.2 g/dl (32.0-36.5); PLATELET COUNT, AUTOMATED 220 10^3/uL (150-450); RED BLOOD COUNT 3.27 10^6/uL (4.30-6.10)
[2020-05-18 07:29] LABS: INR 2.03; PROTHROMBIN TIME 23.4 SECONDS (12.5-14.3)
[2020-05-18 07:51] LABS: BLOOD UREA NITROGEN 19 MG/DL (7-18); CALCIUM LEVEL 8.9 MG/DL (8.8-10.2); CARBON DIOXIDE LEVEL 28 MEQ/L (21-32); CHLORIDE LEVEL 108 MEQ/L (98-107); GLOMERULAR FILTRATION RATE > 60.0 (>42); GLUCOSE, FASTING 79 MG/DL (70-100); POTASSIUM SERUM 4.1 MEQ/L (3.5-5.1); SODIUM LEVEL 144 MEQ/L (136-145)
[2020-05-18 08:32] LABS: PARTIAL THROMBOPLASTIN TIME 175.2 SECONDS (24.2-38.5)
[2020-05-18] MEDS: SENOKOT S TAB PO SCH ×2 (08:57→20:12)
[2020-05-18] MEDS: MIRALAX *UNIT DOSE* 17GM PACKET PO SCH ×2 (08:57→20:12)
[2020-05-18] MEDS: PANTOPRAZOLE 40MG TAB (PROTONIX) PO SCH ×2 (08:58→20:12)
[2020-05-18 14:00] VITALS: BP 143/61
[2020-05-18 15:49] LABS: INR 2.17; PROTHROMBIN TIME 24.7 SECONDS (12.5-14.3)
[2020-05-18 15:51] LABS: PARTIAL THROMBOPLASTIN TIME 109.1 SECONDS (24.2-38.5)
--- NOTE | 2020-05-18 16:07 | IPNPDOC ---
Text Note Date of Service The patient was seen on 05/18/20. NOTE SUBJECTIVE: Swallowing is improving. Now on pureed diet with nectar thick liq. Able to swallow meds whole. Patient reports that he is feeling better getting stronger. PHYSICAL EXAMINATION: VITAL SIGNS: See below GEN. APPEARANCE: Sitting up in bed in no distress, alert and awake and oriented. HEENT: NC, AT, moist mucous membranes, anicteric eyes. NECK: no thyromegaly. no JVD CARDIOVASCULAR: S1, S2, irregularly irregular, Not tachycardic, no rub or murmur or gallop LUNGS: Diminished air entry overall, no added sounds. ABDOMEN: Obese, soft , nontender, not distended, bowel sounds positive, no organomegaly appreciated. EXTREMITIES: Chronic venous stasis changes, Trace edema LABORATORY DATA and radiology : Reviewed ASSESSMENT and PLAN: 80-year-old male with history of mechanical aortic valve on chronic warfarin, hypertension, anemia, COPD, CAD, reflux, BLANE was brought in by ambulance after the patient was found unresponsive in his car by his after being up all night sleeping on his chair due to epistaxis and using Q-tips to stop the bleeding. Patient was found to be mumbling by EMS and incomprehensible. He had no tonic-clonic activity and remained confused and mumbling despite multiple Narcan's in the ER, CT of the head was negative for acute intracranial abnormality. Glucose was 121. Ammonia was normal at 15. He was afebrile chest x- ray was negative. Urine and urine tox screen are still pending. Hospitalist was called to admit for altered mental status, found to be in decompensated congestive heart failure with acute hypercapnic respiratory failure requiring intubation, mechanical ventilation, s/p extubation 05/02/20. Acute CHF exacerbation with preserved systolic function/diastolic dysfunction fluid balance managed by nephrology off tpn still on strict i/o daily weights S/P Acute hypercarbic and hypoxic respiratory failure with acute Respiratory acidosis s/p intubation/extubation/mechanical ventilation due to COPD and BLANE with acute CHF Acute metabolic encephalopathy,resolved due to hypercarbia Acute GI bleed-In the setting of chronic warfarin for mechanical aortic valve. resolved back on ac with iv heparin gtt bridged w warfarin Hypernatremia/Dehydration managed by nephrology resolved off tpn Dysphagia/ Aspiration on pureed diet and thickened liquids repeat swallow eval MSSA Pneumonia finished Unasyn. Epistaxis resolved BLANE noncompliant w cpap chronic Acute blood loss from epistaxis and gi loss stable hemoglobin Hypertension controlled Hypothyroidism on synthroid COPD, compensated off prednisone CAD status post stent no acute ischemic complaints ARU screen await repeat swallow eval to check if pt can tolerate thin liquids. VS,Fishbone, I+O VS, Fishbone, I+O Laboratory Tests 05/18/20 06:27 Vital Signs Date Time Temp Pulse Resp B/P (MAP) Pulse Ox O2 Delivery O2 Flow Rate FiO2 05/18/20 14:00 97.5 69 18 143/61 (88) 94 Room Air I&O- Last 24 Hours up to 6 AM 05/18/20 06:00 Intake Total 1188 ml Output Total 1250 ml Balance -62 ml ALEX MORENO MD May 18, 2020 15:55
[2020-05-18] MEDS ORDERED: WARFARIN SOD 7.5MG TAB PO SCH (17:00)
[2020-05-18 22:00] VITALS: BP 148/64
[2020-05-19 04:26] LABS: HEMATOCRIT 32.7 % (42.0-52.0); HEMOGLOBIN 10.1 g/dl (13.5-17.5); MEAN CORPUSCULAR HGB CONC 30.9 g/dl (32.0-36.5); MEAN CORPUSCULAR VOLUME 103.5 fl (80.0-96.0); PLATELET COUNT, AUTOMATED 210 10^3/uL (150-450); RED BLOOD COUNT 3.16 10^6/uL (4.30-6.10); WHITE BLOOD COUNT 6.2 10^3/uL (4.0-10.0)
[2020-05-19 04:38] LABS: INR 2.6; PROTHROMBIN TIME 28.4 SECONDS (12.5-14.3)
[2020-05-19 04:39] LABS: PARTIAL THROMBOPLASTIN TIME 81.2 SECONDS (24.2-38.5)
[2020-05-19 04:55] LABS: BLOOD UREA NITROGEN 18 MG/DL (7-18); CALCIUM LEVEL 8.9 MG/DL (8.8-10.2); CARBON DIOXIDE LEVEL 32 MEQ/L (21-32); CHLORIDE LEVEL 107 MEQ/L (98-107); CREATININE FOR GFR 0.86 MG/DL (0.70-1.30); GLOMERULAR FILTRATION RATE > 60.0 (>42); GLUCOSE, FASTING 87 MG/DL (70-100); POTASSIUM SERUM 3.8 MEQ/L (3.5-5.1); SODIUM LEVEL 144 MEQ/L (136-145)
[2020-05-19] MEDS: SODIUM CHLORIDE 0.9% INJ 10 ML SYR IV SCH (05:43)
[2020-05-19 06:00] VITALS: BP 150/64
[2020-05-19 07:08] LABS: FERRITIN 117 NG/ML (26-388); IRON (FE) 44 UG/DL (65-175); PERCENT SATURATION 19.6 % (19.7-50.0); TOTAL IRON BINDING CAPACITY 224 UG/DL (250-450)
[2020-05-19] MEDS ORDERED: TIOTROPIUM INHALER/CAPSULE (SPIRIVA) INH SCH (08:00)
[2020-05-19] MEDS: MIRALAX *UNIT DOSE* 17GM PACKET PO SCH (09:09)
[2020-05-19] MEDS: PANTOPRAZOLE 40MG TAB (PROTONIX) PO SCH (09:09)
[2020-05-19] MEDS: SENOKOT S TAB PO SCH (09:10)
--- NOTE | 2020-05-19 10:29 | DS.PDOC ---
Discharge Summary General Date of Admission Apr 29, 2020 at 17:47 Date of Discharge 05/19/20 Discharge Summary PROCEDURES PERFORMED DURING STAY: [None]. DISCHARGE DIAGNOSES: Acute respiratory failure with hypercarbia Acute on chronic CHF exacerbation with preserved EF Acute metabolic encephalopathy Acute on chronic right heart failure Severe Pulmonary hypertension Valvular heart disease with moderate Mitral Regurgitation and mod TR. Mechanical Prosthetic Aortic Valve Chronic atrial fibrillation MSSA pneumonia Acute on Chronic anemia due to Epistaxis and GIB. Epistaxis Acute GIB Hypernatremia resolved Dysphagia. Acute urinary retention SECONDARY DIAGNOSIS: COPD BLANE untreated. CAD s/p stent x 1 Chronic CHF with preserved EF Hypertension Mechanical Aortic valve in 1999 HTN CKD stage 3 GERD Chronic Anemia. Hypothyroid Parkinsonism Gout Hiatal hernia EGD 2014 Colonic polyps, Tubulovillous adenomas, colonoscopy 2014 Diverticulosis, colonoscopy 2014 COMPLICATIONS/CHIEF COMPLAINT: Syncope. HOSPITAL COURSE: 80-year-old male with history of mechanical aortic valve on chronic warfarin, hypertension, anemia, COPD, CAD, reflux, BLANE was brought in by ambulance after the patient was found unresponsive in his car by his after being up all night sleeping on his chair due to epistaxis and using Q-tips to stop the bleeding. Patient was found to be mumbling by EMS and incomprehensible. He had no tonic-clonic activity and remained confused and mumbling despite multiple Narcan's in the ER, CT of the head was negative for acute intracranial abnormality. Glucose was 121. Ammonia was normal at 15. He was afebrile chest x- ray was negative. Hospitalist was called to admit for altered mental status. He was admitted for acute metabolic encephalopathy and found to have acute hypercarbic respiratory failure and decompensated congestive heart failure requiring intubation, mechanical ventilation, s/p extubation 05/02/20. Hospital course was complicated by MSSA pneumonia, Acute GIB , epistaxis, Hypernatremia and development of dysphagia. Patient is very weak and decompensated after prolonged hospitalization and is much below his baseline functional capacity. He was evaluated by PT/OT and reccomended continued rehab after discharge. Patient is being discharged to ARU for continued rehab. Acute CHF with preserved EF patient in Afib during echo so diastolic function could not be determined. now resolved . appears to be Euvolemic at present. strict i/o, daily weights All diuretics are on hold at present. Follow nephrology recommendations on restarting diuretics. S/P Acute hypercarbic and hypoxic respiratory failure with acute Respiratory acidosis s/p intubation/extubation/mechanical ventilation due to COPD and BLANE with acute CHF Acute metabolic encephalopathy,resolved due to hypercarbia Severe pulmonary hypertension with acute on chronic right heart failure all diuretics are on hold at present. Acute GI bleed-In the setting of chronic warfarin for mechanical aortic valve. resolved back on ac with warfarin INR goal 2.5 to 3.5 Hypernatremia/Dehydration due to poor oral intake and overdiuresis managed by nephrology resolved All diuretics are on hold at present. Dysphagia/ Aspiration on pureed diet and thickened liquids repeat swallow eval MSSA Pneumonia finished Unasyn. Epistaxis resolved BLANE noncompliant w cpap chronic Acute on Chronic anemia Acute blood loss anemia from epistaxis and gi loss stable hemoglobin will check iron profile, vit b12 and folate levels EGD and Colonoscopy done in 2017. Last seen Dr Silvana Rees in 2019 : Impression was Refractory normocytic to macrocytic anemia without nutritional deficiencies in the setting of chronic renal insufficiency, COPD, anticoagulation for mechanical heart valve, negative SPEP, and baseline erythropoietin 32 (elevated above reference, low with respect to possible MDS diagnosis). Needs to Follow again with Hematology after discharge. Restart iron and folic acid. Hypertension restart bisoprolol. Hypothyroidism on synthroid COPD, compensated off prednisone restart home inhalers advair, spiriva and albuterol prn. CAD status post stent no acute issues restart statin and bisoprolol Parkinson's disease restart sinemet. Acute urinary retention needed straight cath. Gout/ hyperuricemia restart allopurinol. DISCHARGE MEDICATIONS: Please see below. ALLERGIES: Please see below. PHYSICAL EXAMINATION ON DISCHARGE: VITAL SIGNS: Please see below. GEN. APPEARANCE: Sitting up in bed in no distress, alert and awake and oriented. HEENT: NC, AT, moist mucous membranes, anicteric eyes. NECK: no thyromegaly. no JVD CARDIOVASCULAR: S1, S2, irregularly irregular, Not tachycardic, systolic murmur present, click present or gallop LUNGS: Diminished air entry overall, no added sounds. ABDOMEN: Obese, soft , nontender, not distended, bowel sounds positive, no organomegaly appreciated. EXTREMITIES: Chronic venous stasis changes, Trace edema LABORATORY DATA: Please see below. ACTIVITY: [As tolerated]. DIET: Pureed with [place] thick liquids. DISCHARGE PLAN: ARU DISCHARGE INSTRUCTIONS: Follow up with Nephrology after discharge for CKD stage 3 Follow up with Hematology after discharge from ARU for chronic anemia Follow up with Cardiology after discharge. DISCHARGE CONDITION: [Stable]. TIME SPENT ON DISCHARGE: 35 minutes. Vital Signs/I&Os Vital Signs Date Time Temp Pulse Resp B/P (MAP) Pulse Ox O2 Delivery O2 Flow Rate FiO2 05/18/20 22:00 97.5 66 22 148/64 (92) 96 Room Air I&O- Last 24 Hours up to 6 AM 05/19/20 07:00 Intake Total 340 ml Output Total 1050 ml Balance -710 ml Laboratory Data Labs 24H Laboratory Tests 2 05/18/20 06:27: Nucleated Red Blood Cells % (auto) 0.0, Prothrombin Time 23.4H, Prothromb Time International Ratio 2.03, Activated Partial Thromboplast Time 175.2*H, Anion Gap 8, Glomerular Filtration Rate > 60.0, Calcium Level 8.9 05/18/20 15:19: Prothrombin Time 24.7H, Prothromb Time International Ratio 2.17, Activated Partial Thromboplast Time 109.1H 05/18/20 22:27: Activated Partial Thromboplast Time 72.4H 05/19/20 04:16: Nucleated Red Blood Cells % (auto) 0.0, Prothrombin Time 28.4H, Prothromb Time International Ratio 2.60, Activated Partial Thromboplast Time 81.2H, Anion Gap 5L, Glomerular Filtration Rate > 60.0, Calcium Level 8.9 CBC/BMP Laboratory Tests 05/18/20 06:27 05/19/20 04:16 Discharge Medications Scheduled Allopurinol (Zyloprim) 300 Mg Tab, 300 MG PO DAILY, (Reported) Atorvastatin Calcium (Atorvastatin Calcium) 20 Mg Tab, 20 MG PO QHS, (Reported) Bisoprolol Fumarate (Bisoprolol Fumarate) 5 Mg Tab, 5 MG PO QAM, (Reported) Calcium Carbonate/Vitamin D3 (Calcium 600-Vit D3 400 Tablet) 1 Tab Tab, 1 TAB PO DAILY, (Reported) Carbidopa/Levodopa (Sinemet 25-100 mg Tablet) 1 Each Tablet, 1 TAB PO TID, (Reported) Ferrous Sulfate (Ferrous Sulfate) 325 Mg Tab, 325 MG PO DAILY, (Reported) Folic Acid (Folic Acid) 1 Mg Tab, 1 MG PO QPM, (Reported) Metolazone (Metolazone) 2.5 Mg Tablet, 2.5 MG PO 1XWK, (Reported) SUNDAYS WITH EXTRA 20MEQ KCL Multivitamins (Thera M Plus Tablet) 1 Tab Tab, 1 TAB PO DAILY, (Reported) Omeprazole (Omeprazole) 40 Mg Cap, 40 MG PO BID, (Reported) Polyethylene Glycol 3350 (Miralax) 1 Pow Pow, 1 DOSE PO DAILY, (Reported) Potassium Chloride (Potassium Chloride) 20 Meq Tab, 20 MEQ PO DAILY, (Reported) Potassium Chloride (Potassium Chloride) 20 Meq Tablet.er, 20 MEQ PO 1XWK, (Reported) SUNDAYS WITH 2.5MG METOLAZONE Salmeterol/Fluticasone (Advair 250-50 Diskus) 14 Puff/Inhaler Aerp, 1 PUFF INH BID, (Reported) Spironolactone (Spironolactone) 25 Mg Tab, 25 MG PO DAILY, (Reported) Tiotropium [place] (Spiriva Respimat) 1.25 Mcg/Act Aer, 1.25 MCG INH DAILY, (Reported) Torsemide (Torsemide) 20 Mg Tablet, 40 MG PO BID, (Reported) Ubidecarenone (Co Q-10) 200 Mg Capsule, 200 MG PO DAILY, (Reported) Warfarin Sodium (Coumadin) 5 Mg Tab, 5 MG PO 4XWK, (Reported) SUN, YOAN, THUR, SAT Warfarin Sodium (Warfarin Sodium) 7.5 Mg Tab, 7.5 MG PO 3XW, (Reported) MWF Scheduled PRN Albuterol Sulfate (Proair Hfa) 108 Mcg/Act Aer, 2 PUFF INH QID PRN for SHORTNESS OF BREATH, (Reported) Carboxymethylcellulose Sodium (Refresh Tears) 0.5 % [place], 1 DROP OS DAILY PRN for DRY EYES, (Reported) Fluticasone Propionate (Flonase Allergy Relief) 50 Mcg/Act Spr, 100 MCG NA DAILY PRN for NASAL CONGESTION, (Reported) Nitroglycerin (Nitroglycerin) 0.4 Mg Sub, 0.4 MG SL NITRO PRN for CHEST PAIN, (Reported) Miscellaneous Medications [Pt Comment] , (Reported) MED LIST AND LAST DOSE OBTAINED FROM Allergies Coded Allergies: No Known Allergies (Unverified , 08/20/18) ALEX MORENO MD May 19, 2020 06:19
[2020-05-19] MEDS ORDERED: bisoproloL fumarate 5 MG TAB PO SCH (10:30)
[2020-05-19] MEDS ORDERED: ALBUTEROL 90 MCG/ACT 8GM HFA INHALER INH PRN (10:30)
[2020-05-19 11:28] VITALS: BP 146/66
[2020-05-19 12:11] LABS: FOLATE 15.7 NG/ML
[2020-05-19] MEDS ORDERED: TORS20TA2 PO (13:00)
== END 2020-05-19 14:17 | DRG 208 ==
LOC: M ED 15:17 → EDBD 15:17 → M ED INP 17:47 → M PCU 04-30 14:45 → M MSPAV 05-11 16:34
PROVIDERS: ADMIT General Practice; ATTEND Internal Medicine Nephrology
PROC: 5A1935Z Respiratory Ventilation, Less than 24 Consecutive Hours (ICD-10-PCS; principal; 2020-04-30)
PROC: 02HV33Z Insertion of Infusion Device into Superior Vena Cava, Percutaneous Approach (ICD-10-PCS; 2020-05-04)
DX: J96.02 Acute respiratory failure with hypercapnia (principal); G93.41 Metabolic encephalopathy; I50.43 Acute on chronic combined systolic (congestive) and diastolic (congestive) heart failure; J15.211 Pneumonia due to Methicillin susceptible Staphylococcus aureus; J81.1 Chronic pulmonary edema; M62.82 Rhabdomyolysis; N17.9 Acute kidney failure, unspecified; I13.0 Hypertensive heart and chronic kidney disease with heart failure and stage 1 through stage 4 chronic kidney disease, or unspecified chronic kidney disease; E87.2 Acidosis; K92.2 Gastrointestinal hemorrhage, unspecified; D68.32 Hemorrhagic disorder due to extrinsic circulating anticoagulants; E87.0 Hyperosmolality and hypernatremia; I48.20 Chronic atrial fibrillation, unspecified; D62 Acute posthemorrhagic anemia; J44.9 Chronic obstructive pulmonary disease, unspecified; I27.20 Pulmonary hypertension, unspecified; I08.1 Rheumatic disorders of both mitral and tricuspid valves; R04.0 Epistaxis; R13.10 Dysphagia, unspecified; R31.9 Hematuria, unspecified; I25.10 Atherosclerotic heart disease of native coronary artery without angina pectoris; Z95.2 Presence of prosthetic heart valve; K44.9 Diaphragmatic hernia without obstruction or gangrene; E03.9 Hypothyroidism, unspecified; G20 Parkinson's disease; M10.9 Gout, unspecified; K57.30 Diverticulosis of large intestine without perforation or abscess without bleeding; N18.30 Chronic kidney disease, stage 3 unspecified; Z79.01 Long term (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 of anticoagulants; G47.33 Obstructive sleep apnea (adult) (pediatric); Z79.899 Other long term (current) drug therapy; Z87.891 Personal history of nicotine dependence; Z91.19 Patient's noncompliance with other medical treatment and regimen; E87.6 Hypokalemia

== ENCOUNTER 2020-05-19 11:29 | Inpatient (IN) | payer MEDICARE ==
[~2020-05-19] VITALS: Ht 182.9 cm; Wt 110.4 kg
[~2020-05-19 11:29] MED LIST changes: +COQ1200C PO; +PT COMMENT; +SINE25TA5 PO
[2020-05-19] MEDS ORDERED: TORS20TA2 PO (13:00)
--- OUTSIDE RECORDS SUMMARY | 2020-05-19 14:28 | CCD | Continuity of Care Document ---
Author Author Ronal JO M.D. Organization Unknown Address [address] [address] Phone [phone] Care Team Providers Care Exercise Instruct Name Role Phone Lorenzo Haddad D.O. AUTM [phone] Anna Marie Barnes AUTM [phone] Problems Active Problems Provider Date Impaired fasting glycemia Tiago Jo M.D. Onset: Allergic rhinitis Tiago Jo M.D. Onset: 3 Chronic obstructive lung disease Tiago Jo M.D. Ons et: 02/05/2013 Atrial fibrillation Tiago Jo M.D. Onset: 3 Benign essential hypertension Tiago Jo M.D. Onset: 02/05/2013 Obstructive sleep apnea syndrome Tiago Jo M.D. Ons et: 02/05/2013 Chronic obstructive lung disease Tiago Jo M.D. Ons et: 01/25/2015 Essential hypertension Tiago Jo M.D. Onset: 2014 Social History Type Date Description Comments Sex Unknown ETOH Use Occasionally consumes beer Tobacco Use Start: Unknown End: Unknown Patient is a former smoker Quit 1999 Recreational Drug Use Denies Drug Use Allergies, Adverse Reactions, Alerts Active Allergies Reaction Severity Comments Date No Known Drug Allergy 2012 Medications Active Medications SIG Qnty Indications Ordering Provide r Date Albuterol Sulfate HFA 108(90Base) mcg/Act Aerosol Inhale 2 Puffs By Mouth Every 4 Hours as Needed For Sh ortness Of Breath 25.5units Tiago Jo M.D. 02/10/2020 Wixela Inhub 250-50mcg/Dose Aeroso l Inhale 1 Inhalation In The Morning And AT Night 180DisTiago Connor M.D. 08/28/2019 Shingrix 50mcg/0.5ML Suspension Re c as directed 1Tiago Parker M.D. 11/23/19 19 Polyethylene Glycol 3350 3350NF Po wder Dilute 1 Capful(17GM)Once Daily Disolved In 4-8 Oz Of Liquid 527Tiago Parker M.D. 10/29/2017 Spiriva Respimat 1.25mcg/Act Aeros ol Inhale 1 puff By Mouth Once Daily 12Jamaal Parker M.D. 05/10/2015 Potassium Chloride ER 20Meq Tablet s ER 1 by mouth qd 90taTiago Castillo M.D. 04/13/20 15 Nebulizer Compressor/Dualfilter/7' Tubin g/Aerosol T/Mthpiece Kit use for Xopenex neb treatments every 4 h ours as needed for sob or wheezing j44.9 COPD 1unTiago Bridges M.D. 04/13/2015 Flonase Allergy Relief 50mcg/Act Suspension 1-2 sprays 1-2 times daily each nostril daily 1Tiago Parker M.D. 10/14/2014 Ferrous Sulfate 325(65Fe) mg Table ts Take 1 Tablet By Mouth Twice A Day 180Tiago Khalil M.D. 07/03/2014 Bisoprolol Fumarate 5mg Tablets 1 by mouth every day 90tafrancesca Haddad D.O., FAAFP Metolazone 2.5mg Tablets (hold) one by mouth every sunday Unknown Carbidopa-Levodopa 25-100mg Tablet s 1/2 tab tid Anna Marie Barnes Omeprazole 40mg Capsules DR take 1 capsule by mouth twice a day 180capTiago Olguin M.D. Allopurinol 300mg Tablets 1 by mouth every day Unknown Atorvastatin Calcium 20mg Tablets take 1 tablet by mouth every day 90tafrancesca Haddad D.O., FAAFP Spironolactone 25mg Tablets take 1 tablet by mouth once daily 90tabs Tiago Jo M.D. Torsemide 20mg Tablets 1 tab po q am & 2 tabs q pm Tiago Jo M.D. Multi Vitamin Daily Tablets 1 by mouth every day otc OTC Unknown Folic Acid 1mg Tablets 1 by mouth every day Unknown Refresh Tears 0.5% Solution as directed Unknown Nitrostat 0.4mg Tablets Sub 1 sl every 5 min for chest pain. may take up to 3 doses at which point also seek medical attention. Unknown Warfarin Sodium Tablets as directed by cardiology Unknown Medications Administered in Office Medication SIG Qnty Indications Ordering Provider Date Injection (SC)/(Im) Injection Tiago Jo M.D. 02/05/2013 Immunizations CPT Code Status Date Vaccine Lot # [id number] Given 02/07/2017 Influenza Virus Vaccine, Quadrivalent, Slit Virus, Im Use 3Y & Up [id number] 91539 Given 04/13/2015 Influenza Vaccin e (Fluzone) 3Yrs Of Age Or Older Medicare Plans [id number] 67941 Given 03/23/2014 Influenza Vaccin e (Fluzone) 3Yrs Of Age Or Older Medicare Plans [id number] 66574 Given 10/16/2013 Zoster (Shingles) Vaccine [id number] Given 02/05/2013 Influenza Vaccin e (Fluzone) 3Yrs Of Age Or Older Medicare Plans [id number] Given 02/05/2013 Influenza Virus Vac. Split Virus Individuals 3 Years And Above [id number] Vital Signs Date Vital Result Comment 04/07/2020 1:54pm BP Systolic 122 mmHg BP Diastolic 66 mmHg Body Temperature 97.9 F Heart Rate 64 /min Respiratory Rate 18 /min Height 72 inches 6'0" [place] Body Weight 178 lb O2 % BldC Oximetry 97 % 02/17/2020 3:20pm BP Systolic 138 mmHg BP Diastolic 60 mmHg Body Temperature 97.3 F Heart Rate 58 /min Respiratory Rate 14 /min Height 72 inches 6'0" Weight 250.00 lb [place] Body Weight 178 lb BMI (Body Mass Index) 33.9 kg/m2 O2 % BldC Oximetry 97 % Results Test Acquired Date Facility Test Result H/L Range Note Basic Metabolic Panel 04/07/2020 [facility] Glu 87 mg/dL 70 - 110 1 BUN 41 mg/dL High 8 - 23 Creat 1.3 mg/dL High 0.7 - 1.2 BUN/Creatinine Ratio 30.6 CALC Co2 28.1 mmol/L 22.0 - 29.0 CA 9.0 mg/dL 8.6 - 10.2 Na 138 mmol/L 136 - 145 K 3.8 mmol/L 3.5 - 5.1 CL 98.2 mmol/L 98.0 - 107.0 Anion Gap 15 mmol/L eGFR 60 # Calc 2 eGFR Non-Afr. [place] 52 # Calc 3 CBC 04/07/2020 [facility] WBC 7.8 10E3/uL 4.1 - 10.9 RBC 3.45 10E6/uL Low 4.20 - 6.30 HGB 11.5 g/dL Low 12.0 - 18.0 HCT 34.7 % Low 37.0 - 51.0 MCV 100.6 fL High 80.0 - 97.0 MCH 33.3 pg High 26.0 - 32.0 MCHC 33.1 g/dL 31.0 - 36.0 PLT 205 10E3/uL 140 - 440 RDW-CV 16.1 % High 11.5 - 14.5 Lym% 9.2 % Low 10.0 - 58.5 Neut% 77.1 % 37.0 - 92.0 MXD% 13.7 % 0.1 - 24.0 Lym# 0.7 10E3/uL 0.6 - 4.1 Neut# 6.0 % 2.0 - 7.8 MXD# 1.1 10E3/uL 0.0 - 1.8 MPV 11.0 fL 9.0 - 13.0 Prothrombin Time/Inr 03/25/2020 [facility] ( [facility]) [phone] Prothrombin Time 35.0 seconds High 12.5-14.3 Inr 3.38 Normal 4 CBC 03/01/2020 [facility] WBC 6.7 10E3/uL 4.1 - 10.9 5 RBC 3.51 10E6/uL Low 4.20 - 6.30 HGB 11.4 g/dL Low 12.0 - 18.0 HCT 34.7 % Low 37.0 - 51.0 MCV 98.9 fL High 80.0 - 97.0 MCH 32.5 pg High 26.0 - 32.0 MCHC 32.9 g/dL 31.0 - 36.0 PLT 149 10E3/uL 140 - 440 RDW-CV 15.4 % High 11.5 - 14.5 Lym% 10.0 % 10.0 - 58.5 Neut% 75.8 % 37.0 - 92.0 MXD% 14.2 % 0.1 - 24.0 Lym# 0.7 10E3/uL 0.6 - 4.1 Neut# 5.0 % 2.0 - 7.8 MXD# 1.0 10E3/uL 0.0 - 1.8 MPV 10.9 fL 9.0 - 13.0 CMP 03/01/2020 [facility] Glu 98 mg/dL 70 - 110 BUN 35 mg/dL High 8 - 23 Creat 1.4 mg/dL High 0.7 - 1.2 BUN/Creatinine Ratio 24.6 CALC Na 138 mmol/L 136 - 145 K 4.3 mmol/L 3.5 - 5.1 CL 101.8 mmol/L 98.0 - 107.0 Co2 24.3 mmol/L 22.0 - 29.0 CA 9.1 mg/dL 8.6 - 10.2 TP 6.2 g/dL Low 6.6 - 8.7 Alb 3.7 g/dL 3.5 - 5.2 A/G Ratio 1.5 CALC Globulin 2.5 CALC Alp 66.3 U/L 40 - 129 Alt (SGPT) 2 U/L 0 - 41 Ast (Sgot) 15 U/L 0 - 40 Tbili 0.40 mg/dL 0.0 - 1.2 Osmolality-Calculated 284.0 CALC Anion Gap 16 mmol/L eGFR 55 # Calc 6 eGFR Non-Afr. [place] 47 # Calc 7 Lipid Panel 03/01/2020 [facility] Chol 140 mg/dL 0 - 200 Trig 110 mg/dL 35 - 200 HDL 32 mg/dL Low 35 - 55 LDL_C 86 Calc 75 - 129 Cho/HDL Ratio 4.4 CALC Prothrombin Time/Inr 02/25/2020 [facility] ( [facility]) [phone] Prothrombin Time 27.4 seconds High 12.5-14.3 Inr 2.48 Normal 8 CMP 02/17/2020 [facility] Glu 106 mg/dL 70 - 110 9 BUN 81 mg/dL High 8 - 23 Creat 1.9 mg/dL High 0.7 - 1.2 BUN/Creatinine Ratio 41.9 Calc Na 134 mmol/L Low 136 - 145 K 3.5 mmol/L 3.5 - 5.1 CL 89.1 mmol/L Low 98.0 - 107.0 Co2 28.1 mmol/L 22.0 - 29.0 CA 9.9 mg/dL 8.6 - 10.2 TP 7.6 g/dL 6.6 - 8.7 Alb 4.4 g/dL 3.5 - 5.2 A/G Ratio 1.4 Calc Globulin 3.2 Calc Alp 82.2 U/L 40 - 129 Alt (SGPT) 9 U/L 0 - 41 Ast (Sgot) 22 U/L 0 - 40 Tbili 0.84 mg/dL 0.0 - 1.2 Osmolality-Calculated 293.2 Calc Anion Gap 20 mmol/L eGFR 38 # Calc 10 eGFR Non-Afr. [place] 33 # Calc 11 CBC 02/17/2020 [facility] WBC 11.3 10E3/uL High 4.1 - 10.9 RBC 4.22 10E6/uL 4.20 - 6.30 HGB 13.8 g/dL 12.0 - 18.0 HCT 40.8 % 37.0 - 51.0 MCV 96.7 fL 80.0 - 97.0 MCH 32.7 pg High 26.0 - 32.0 MCHC 33.8 g/dL 31.0 - 36.0 PLT 186 10E3/uL 140 - 440 RDW-CV 14.7 % High 11.5 - 14.5 Lym% 8.0 % Low 10.0 - 58.5 Neut% 75.7 % 37.0 - 92.0 MXD% 16.3 % 0.1 - 24.0 Lym# 0.9 10E3/uL 0.6 - 4.1 Neut# 8.6 % High 2.0 - 7.8 MXD# 1.8 10E3/uL 0.0 - 1.8 MPV 12.4 fL 9.0 - 13.0 PT With Inr-Therapy 02/17/2020 [facility] Eryn sue Prothrombin Time-Therapy 43.0 International Normalized Ratio 3.6 Prothrombin Time/Inr 02/10/2020 [facility]) [phone] Prothrombin Time 25.5 seconds High 12.5-14.3 Inr 2.26 Normal 12 Prothrombin Time/Inr 01/12/2020 [facility]) [phone] Prothrombin Time 34.0 seconds High 12.5-14.3 Inr 3.26 Normal 13 CBC 12/30/2019 [facility] WBC 6.7 10E3/uL 4.1 - 10.9 RBC 3.50 10E6/uL Low 4.20 - 6.30 HGB 11.8 g/dL Low 12.0 - 18.0 HCT 34.8 % Low 37.0 - 51.0 MCV 99.4 fL High 80.0 - 97.0 MCH 33.7 pg High 26.0 - 32.0 MCHC 33.9 g/dL 31.0 - 36.0 PLT 157 10E3/uL 140 - 440 RDW-CV 14.8 % High 11.5 - 14.5 Lym% 9.4 % Low 10.0 - 58.5 Neut% 75.8 % 37.0 - 92.0 MXD% 14.8 % 0.1 - 24.0 Lym# 0.6 10E3/uL 0.6 - 4.1 Neut# 5.1 % 2.0 - 7.8 MXD# 1.0 10E3/uL 0.0 - 1.8 MPV 11.7 fL 9.0 - 13.0 Basic Metabolic Panel 12/30/2019 [facility] Glu 96 mg/dL 70 - 110 BUN 31 mg/dL High 8 - 23 Creat 1.4 mg/dL High 0.7 - 1.2 BUN/Creatinine Ratio 23.0 CALC Co2 23.0 mmol/L 22.0 - 29.0 CA 8.6 mg/dL 8.6 - 10.2 Na 139 mmol/L 136 - 145 K 4.4 mmol/L 3.5 - 5.1 CL 105.2 mmol/L 98.0 - 107.0 Anion Gap 15 mmol/L eGFR 55 # Calc 14 eGFR Non-Afr. [place] 47 # Calc 15 Laboratory test finding 12/25/2019 [facility] Occult Blood NEG Neg Prothrombin Time/Inr 12/23/2019 [facility]) [phone] Prothrombin Time 22.9 seconds High 11.8-14.0 Inr 1.97 Normal 16 Prothrombin Time/Inr 11/10/2019 [facility] ( [facility]) [phone] Prothrombin Time 27.1 seconds High 11.8-14.0 Inr 2.53 Normal 17 CBC 11/07/2019 [facility] WBC 6.4 10E3/uL 4.1 - 10.9 18 RBC 3.35 10E6/uL Low 4.20 - 6.30 HGB 11.2 g/dL Low 12.0 - 18.0 HCT 33.2 % Low 37.0 - 51.0 MCV 99.1 fL High 80.0 - 97.0 MCH 33.4 pg High 26.0 - 32.0 MCHC 33.7 g/dL 31.0 - 36.0 PLT 173 10E3/uL 140 - 440 RDW-CV 16.0 % High 11.5 - 14.5 Lym% 9.1 % Low 10.0 - 58.5 Neut% 73.1 % 37.0 - 92.0 MXD% 17.8 % 0.1 - 24.0 Lym# 0.6 10E3/uL 0.6 - 4.1 Neut# 4.7 % 2.0 - 7.8 MXD# 1.1 10E3/uL 0.0 - 1.8 MPV 10.5 fL 9.0 - 13.0 CMP 11/07/2019 [facility] Glu 103 mg/dL 70 - 110 BUN 28 mg/dL High 8 - 23 Creat 1.3 mg/dL High 0.7 - 1.2 BUN/Creatinine Ratio 22.4 CALC Na 139 mmol/L 136 - 145 K 3.8 mmol/L 3.5 - 5.1 CL 103.6 mmol/L 98.0 - 107.0 Co2 26.8 mmol/L 22.0 - 29.0 CA 8.5 mg/dL Low 8.6 - 10.2 TP 6.8 g/dL 6.6 - 8.7 Alb 3.9 g/dL 3.5 - 5.2 A/G Ratio 1.3 CALC Globulin 2.9 CALC Alp 75.9 U/L 40 - 129 Alt (SGPT) 11 U/L 0 - 41 Ast (Sgot) 16 U/L 0 - 40 Tbili 0.55 mg/dL 0.0 - 1.2 Osmolality-Calculated 284.0 CALC Anion Gap 13 mmol/L eGFR 60 # Calc 19 eGFR Non-Afr. [place] 52 # Calc 20 Lipid Panel 11/07/2019 [facility] Chol 156 mg/dL 0 - 200 Trig 118 mg/dL 35 - 200 HDL 35 mg/dL 35 - 55 LDL_C 97 Calc 75 - 129 Cho/HDL Ratio 4.4 Calc Prothrombin Time/Inr 10/27/2019 [facility] ( [facility]) [phone] Prothrombin Time 30.3 seconds High 11.8-14.0 Inr 2.91 Normal 21 Prothrombin Time/Inr 10/20/2019 [facility] ( [facility]) [phone] Prothrombin Time 24.8 seconds High 11.8-14.0 Inr 2.26 Normal 22 Prothrombin Time/Inr 10/14/2019 [facility] ( [facility]) [phone] Prothrombin Time 48.7 seconds High 11.8-14.0 Inr 5.26 Critical high 23 1 NORMAL RANGES Age WBC RBC HGB HCT MCV PLT Adult M 4.1-10.9 4.20-6.30 12.0-18.0 37.0-51.0 80-97 140-440 Adult F 4.1-10.9 4.04-5.48 12.0-18.0 37.0-51.0 80-97 140-440 0 -1 Yr 5.0-20.0 3.9-5.9 15-18 MV: 44 MV: 91 MV: 277 2-9 Yr. 6.0-17.0 3.8-5.4 11-13 MV: 37 MV: 78 MV: 300 10 Yrs. 5.0-13.0 3.8-5.4 12-15 MV: 39 MV: 80 MV: 250 NOTE: * FOR ADULT BLACK MALES AND FEMALES, NORMAL WBC IS 2.9-7.7 K/ML * FOR ADULT BLACK MALES AND FEMALES, NORMAL RBC,HGB, AND HCT IS 5% LESS SOURCE FOR DATA: [employer] 1800 OPERATION MANUAL( AUTOMATED BLOOD COUNTS AND DIFF.) APPENDIX B-3 CHRONIC KIDNEY DISEASE STAGING PER NKF: MALE GFR INTERPRETATION: 20-49 YRS: >60 mL/min Normal 50-59 YRS: >56 mL/min Normal 60-69 YRS: >49 mL/min Normal 70-79 YRS: >42 mL/min Normal 80 and above >35 mL/min Normal FEMALE GRF INTERPRETATION: 20-39 YRS: >60 mL/min Normal 40-49 YRS: >58 mL/min Normal 50-59 YRS: >51 mL/min Normal 60-69 YRS: >45 mL/min Normal 70-79 YRS: >39 mL/min Normal 80 and above >32 mL/min Normal 2 CKD-EPI 3 CKD-EPI 4 THERAPUTIC HUMAN INR VALUES INDICATIONS NORMAL RANGES PROPHYLAXIS/TREATMENT OF: VENOUS THROMBOSIS 2.0-3.0 PULMONARY EMBOLISM 2.0-3.0 PREVENTION OF SYSTEMIC EMBOLISM FROM: TISSUE HEART VALVES 2.0-3.0 ACUTE MYOCARDIAL INFARCTION 2.0-3.0 VALVULAR HEART DISEASE 2.0-3.0 ATRIAL FIBRILLATION 2.0-3.0 MECHANICAL VALVES(HIGH RISK) 2.5-3.5 RECURRENT MYOCARDIAL INFARCTION 2.5-3.5 5 NORMAL RANGES Age WBC RBC HGB HCT MCV PLT Adult M 4.1-10.9 4.20-6.30 12.0-18.0 37.0-51.0 80-97 140-440 Adult F 4.1-10.9 4.04-5.48 12.0-18.0 37.0-51.0 80-97 140-440 0 -1 Yr 5.0-20.0 3.9-5.9 15-18 MV: 44 MV: 91 MV: 277 2-9 Yr. 6.0-17.0 3.8-5.4 11-13 MV: 37 MV: 78 MV: 300 10 Yrs. 5.0-13.0 3.8-5.4 12-15 MV: 39 MV: 80 MV: 250 NOTE: * FOR ADULT BLACK MALES AND FEMALES, NORMAL WBC IS 2.9-7.7 K/ML * FOR ADULT BLACK MALES AND FEMALES, NORMAL RBC,HGB, AND HCT IS 5% LESS SOURCE FOR DATA: [employer] 1800 OPERATION MANUAL( AUTOMATED BLOOD COUNTS AND DIFF.) APPENDIX B-3 CHRONIC KIDNEY DISEASE STAGING PER NKF: MALE GFR INTERPRETATION: 20-49 YRS: >60 mL/min Normal 50-59 YRS: >56 mL/min Normal 60-69 YRS: >49 mL/min Normal 70-79 YRS: >42 mL/min Normal 80 and above >35 mL/min Normal FEMALE GRF INTERPRETATION: 20-39 YRS: >60 mL/min Normal 40-49 YRS: >58 mL/min Normal 50-59 YRS: >51 mL/min Normal 60-69 YRS: >45 mL/min Normal 70-79 YRS: >39 mL/min Normal 80 and above >32 mL/min NormalCLASSIFICATION CHOLESTEROL FOR ADULTS CHILDREN/ADOLESCENTS* DESIRABLE: <200 MG/DL <170 MG/DL BORDER-LINE HIGH RISK: 200-239 MG/DL 170-199 MG/DL HIGH RISK: >240 MG/DL >200 MG/DL CLASS. FOR PRIMARY LDL CHOL PREVENTION: LDL CHOL-CHILD/ADOLESCENTS* DESIRABLE: <130 MG/DL <110 MG/DL BORDERLINE-HIGH RISK: 130-159 MG/DL 110-129 MG/DL HIGH RISK: >160 MG/DL >130 MG/DL *CHILDREN AND ADOLESCENTS REPRESENTS INDIVIDUALA AGED 2-19 YEARS EXCLUSIVE. 6 CKD-EPI 7 CKD-EPI 8 THERAPUTIC HUMAN INR VALUES INDICATIONS NORMAL RANGES PROPHYLAXIS/TREATMENT OF: VENOUS THROMBOSIS 2.0-3.0 PULMONARY EMBOLISM 2.0-3.0 PREVENTION OF SYSTEMIC EMBOLISM FROM: TISSUE HEART VALVES 2.0-3.0 ACUTE MYOCARDIAL INFARCTION 2.0-3.0 VALVULAR HEART DISEASE 2.0-3.0 ATRIAL FIBRILLATION 2.0-3.0 MECHANICAL VALVES(HIGH RISK) 2.5-3.5 RECURRENT MYOCARDIAL INFARCTION 2.5-3.5 9 NORMAL RANGES Age WBC RBC HGB HCT MCV PLT Adult M 4.1-10.9 4.20-6.30 12.0-18.0 37.0-51.0 80-97 140-440 Adult F 4.1-10.9 4.04-5.48 12.0-18.0 37.0-51.0 80-97 140-440 0 -1 Yr 5.0-20.0 3.9-5.9 15-18 MV: 44 MV: 91 MV: 277 2-9 Yr. 6.0-17.0 3.8-5.4 11-13 MV: 37 MV: 78 MV: 300 10 Yrs. 5.0-13.0 3.8-5.4 12-15 MV: 39 MV: 80 MV: 250 NOTE: * FOR ADULT BLACK MALES AND FEMALES, NORMAL WBC IS 2.9-7.7 K/ML * FOR ADULT BLACK MALES AND FEMALES, NORMAL RBC,HGB, AND HCT IS 5% LESS SOURCE FOR DATA: [employer] 1800 OPERATION MANUAL( AUTOMATED BLOOD COUNTS AND DIFF.) APPENDIX B-3 CHRONIC KIDNEY DISEASE STAGING PER NKF: MALE GFR INTERPRETATION: 20-49 YRS: >60 mL/min Normal 50-59 YRS: >56 mL/min Normal 60-69 YRS: >49 mL/min Normal 70-79 YRS: >42 mL/min Normal 80 and above >35 mL/min Normal FEMALE GRF INTERPRETATION: 20-39 YRS: >60 mL/min Normal 40-49 YRS: >58 mL/min Normal 50-59 YRS: >51 mL/min Normal 60-69 YRS: >45 mL/min Normal 70-79 YRS: >39 mL/min Normal 80 and above >32 mL/min Normal 10 CKD-EPI 11 CKD-EPI 12 THERAPUTIC HUMAN INR VALUES INDICATIONS NORMAL RANGES PROPHYLAXIS/TREATMENT OF: VENOUS THROMBOSIS 2.0-3.0 PULMONARY EMBOLISM 2.0-3.0 PREVENTION OF SYSTEMIC EMBOLISM FROM: TISSUE HEART VALVES 2.0-3.0 ACUTE MYOCARDIAL INFARCTION 2.0-3.0 VALVULAR HEART DISEASE 2.0-3.0 ATRIAL FIBRILLATION 2.0-3.0 MECHANICAL VALVES(HIGH RISK) 2.5-3.5 RECURRENT MYOCARDIAL INFARCTION 2.5-3.5 13 THERAPUTIC HUMAN INR VALUES INDICATIONS NORMAL RANGES PROPHYLAXIS/TREATMENT OF: VENOUS THROMBOSIS 2.0-3.0 PULMONARY EMBOLISM 2.0-3.0 PREVENTION OF SYSTEMIC EMBOLISM FROM: TISSUE HEART VALVES 2.0-3.0 ACUTE MYOCARDIAL INFARCTION 2.0-3.0 VALVULAR HEART DISEASE 2.0-3.0 ATRIAL FIBRILLATION 2.0-3.0 MECHANICAL VALVES(HIGH RISK) 2.5-3.5 RECURRENT MYOCARDIAL INFARCTION 2.5-3.5 14 CKD-EPI 15 CKD-EPI 16 THERAPUTIC HUMAN INR VALUES INDICATIONS NORMAL RANGES PROPHYLAXIS/TREATMENT OF: VENOUS THROMBOSIS 2.0-3.0 PULMONARY EMBOLISM 2.0-3.0 PREVENTION OF SYSTEMIC EMBOLISM FROM: TISSUE HEART VALVES 2.0-3.0 ACUTE MYOCARDIAL INFARCTION 2.0-3.0 VALVULAR HEART DISEASE 2.0-3.0 ATRIAL FIBRILLATION 2.0-3.0 MECHANICAL VALVES(HIGH RISK) 2.5-3.5 RECURRENT MYOCARDIAL INFARCTION 2.5-3.5 17 THERAPUTIC HUMAN INR VALUES INDICATIONS NORMAL RANGES PROPHYLAXIS/TREATMENT OF: VENOUS THROMBOSIS 2.0-3.0 PULMONARY EMBOLISM 2.0-3.0 PREVENTION OF SYSTEMIC EMBOLISM FROM: TISSUE HEART VALVES 2.0-3.0 ACUTE MYOCARDIAL INFARCTION 2.0-3.0 VALVULAR HEART DISEASE 2.0-3.0 ATRIAL FIBRILLATION 2.0-3.0 MECHANICAL VALVES(HIGH RISK) 2.5-3.5 RECURRENT MYOCARDIAL INFARCTION 2.5-3.5 18 NORMAL RANGES Age WBC RBC HGB HCT MCV PLT Adult M 4.1-10.9 4.20-6.30 12.0-18.0 37.0-51.0 80-97 140-440 Adult F 4.1-10.9 4.04-5.48 12.0-18.0 37.0-51.0 80-97 140-440 0 -1 Yr 5.0-20.0 3.9-5.9 15-18 MV: 44 MV: 91 MV: 277 2-9 Yr. 6.0-17.0 3.8-5.4 11-13 MV: 37 MV: 78 MV: 300 10 Yrs. 5.0-13.0 3.8-5.4 12-15 MV: 39 MV: 80 MV: 250 NOTE: * FOR ADULT BLACK MALES AND FEMALES, NORMAL WBC IS 2.9-7.7 K/ML * FOR ADULT BLACK MALES AND FEMALES, NORMAL RBC,HGB, AND HCT IS 5% LESS SOURCE FOR DATA: [employer] 1800 OPERATION MANUAL( AUTOMATED BLOOD COUNTS AND DIFF.) APPENDIX B-3 CHRONIC KIDNEY DISEASE STAGING PER NKF: MALE GFR INTERPRETATION: 20-49 YRS: >60 mL/min Normal 50-59 YRS: >56 mL/min Normal 60-69 YRS: >49 mL/min Normal 70-79 YRS: >42 mL/min Normal 80 and above >35 mL/min Normal FEMALE GRF INTERPRETATION: 20-39 YRS: >60 mL/min Normal 40-49 YRS: >58 mL/min Normal 50-59 YRS: >51 mL/min Normal 60-69 YRS: >45 mL/min Normal 70-79 YRS: >39 mL/min Normal 80 and above >32 mL/min NormalCLASSIFICATION CHOLESTEROL FOR ADULTS CHILDREN/ADOLESCENTS* DESIRABLE: <200 MG/DL <170 MG/DL BORDER-LINE HIGH RISK: 200-239 MG/DL 170-199 MG/DL HIGH RISK: >240 MG/DL >200 MG/DL CLASS. FOR PRIMARY LDL CHOL PREVENTION: LDL CHOL-CHILD/ADOLESCENTS* DESIRABLE: <130 MG/DL <110 MG/DL BORDERLINE-HIGH RISK: 130-159 MG/DL 110-129 MG/DL HIGH RISK: >160 MG/DL >130 MG/DL *CHILDREN AND ADOLESCENTS REPRESENTS INDIVIDUALA AGED 2-19 YEARS EXCLUSIVE. 19 CKD-EPI 20 CKD-EPI 21 THERAPUTIC HUMAN INR VALUES INDICATIONS NORMAL RANGES PROPHYLAXIS/TREATMENT OF: VENOUS THROMBOSIS 2.0-3.0 PULMONARY EMBOLISM 2.0-3.0 PREVENTION OF SYSTEMIC EMBOLISM FROM: TISSUE HEART VALVES 2.0-3.0 ACUTE MYOCARDIAL INFARCTION 2.0-3.0 VALVULAR HEART DISEASE 2.0-3.0 ATRIAL FIBRILLATION 2.0-3.0 MECHANICAL VALVES(HIGH RISK) 2.5-3.5 RECURRENT MYOCARDIAL INFARCTION 2.5-3.5 22 THERAPUTIC HUMAN INR VALUES INDICATIONS NORMAL RANGES PROPHYLAXIS/TREATMENT OF: VENOUS THROMBOSIS 2.0-3.0 PULMONARY EMBOLISM 2.0-3.0 PREVENTION OF SYSTEMIC EMBOLISM FROM: TISSUE HEART VALVES 2.0-3.0 ACUTE MYOCARDIAL INFARCTION 2.0-3.0 VALVULAR HEART DISEASE 2.0-3.0 ATRIAL FIBRILLATION 2.0-3.0 MECHANICAL VALVES(HIGH RISK) 2.5-3.5 RECURRENT MYOCARDIAL INFARCTION 2.5-3.5 23 THERAPUTIC HUMAN INR VALUES INDICATIONS NORMAL RANGES PROPHYLAXIS/TREATMENT OF: VENOUS THROMBOSIS 2.0-3.0 PULMONARY EMBOLISM 2.0-3.0 PREVENTION OF SYSTEMIC EMBOLISM FROM: TISSUE HEART VALVES 2.0-3.0 ACUTE MYOCARDIAL INFARCTION 2.0-3.0 VALVULAR HEART DISEASE 2.0-3.0 ATRIAL FIBRILLATION 2.0-3.0 MECHANICAL VALVES(HIGH RISK) 2.5-3.5 RECURRENT MYOCARDIAL INFARCTION 2.5-3.5 Procedures Description No Information Available Medical Devices Description No Information Available Encounters Type Date Location Provider Dx Diagnosis Office Visit 04/07/2020 2:00p [facility] Tiago Jo M. D. N17.9 Acute kidney failure, unspecified Office Visit 02/17/2020 2:45p [facility] Tiago Jo M. D. R19.7 Diarrhea, unspecified Z79.01 intermediate card tender (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 of a nticoagulants Office Visit 12/30/2019 2:30p [facility] Tiago Jo M. D. D64.9 Anemia, unspecified I10 Essential (primary) hyperten tosiha Office Visit 11/26/2019 3:40p [facility] Tiago Jo M. D. I10 Essential (primary) hypertension E78.5 Hyperlipidemia, unspecified R73.01 Impaired fasting glucose I48.91 Unspecified atrial fibrillat ion J44.9 Chronic obstructive pulmonar y disease, unspecified G20 Parkinson's disease Assessments Date Code Description Provider 04/07/2020 N17.9 Acute kidney failure, unspecifie d Tiago Jo M.D. 03/08/2020 N17.9 Acute kidney failure, unspecifie d Tiago Jo M.D. 03/01/2020 I10 Essential (primary) hypertension Tiago Jo M.D. 03/01/2020 E78.[address], [address] [facility] 02/17/2020 R19.7 Diarrhea, unspecified Tiago Jo M.D. 02/17/2020 Z79.01 assisted (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 of antic oagulants Tiago Jo M.D. 12/30/2019 D64.9 Anemia, unspecified Ramiro Jo M.D. 12/30/2019 I10 Essential (primary) hypertension Tiago Jo M.D. 12/25/2019 D64.9 Anemia, unspecified Ramiro Jo M.D. 11/26/2019 I10 Essential (primary) hypertension Tiago Jo M.D. 11/26/2019 E78.5 Hyperlipidemia, unspecified [facility] Tiago huston M.D. 11/26/2019 R73.01 Impaired fasting glucose Tiago May M.D. 11/26/2019 I48.91 Unspecified atrial fibrillation Tiago Jo M.D. 11/26/2019 J44.9 Chronic obstructive pulmonary di sease, unspecified Tiago Jo M.D. 11/26/2019 G20 Parkinson's disease Ramiro Jo M.D. 11/07/2019 I10 Essential (primary) hypertension Tiago Jo M.D. 11/07/2019 E78.5 Hyperlipidemia, unspecified [facility] Tiago huston M.D. Plan of Treatment Future Appointment(s):* 05/31/2020 9:00 am - Laboratory [place] [facility] at [facility] * 06/09/2020 1:30 pm - Tiago Jo M.D. at [facility] Functional Status Description No Information Available Mental Status Description No Information Available Referrals Refer to Dr Reason for Referral Status Appt Date Dixie Moffett possible Parkinsons- eval and rx Sent 12/01/2019 [facility] [address] [id number] [phone]
--- OUTSIDE RECORDS SUMMARY | 2020-05-19 14:28 | CCD | Continuity of Care Document ---
Author Author Ronal JO M.D. Organization Unknown Address [address] [address] Phone [phone] Care Team Providers Care Hvac Operations Technician Name Role Phone Lorenzo Haddad D.O. AUTM [phone] Anna Marie Barnes AUTM [phone] Problems Active Problems Provider Date Impaired fasting [...] Anna Marie Barnes Omeprazole 40mg Capsules DR Take 1 Capsule By Mouth Twice A Day 180capTiago Olguin M.D. Allopurinol 300mg Tablets 1 [...] CPT Code Status Date Vaccine Lot # 35190 Given 02/07/2017 Influenza Virus Vaccine, Quadrivalent, Slit Virus, Im Use 3Y & Up [id number] 95323 Given 04/13/2015 Influenza Vaccin e (Fluzone) 3Yrs Of Age Or Older Medicare Plans [id number] Given 03/23/2014 Influenza Vaccin e (Fluzone) 3Yrs Of Age Or Older Medicare Plans [id number] 73454 Given 10/16/2013 Zoster (Shingles) Vaccine 39058 Given 02/05/2013 Influenza Vaccin e (Fluzone) 3Yrs Of Age Or Older Medicare Plans 48656 Given 02/05/2013 Influenza Virus Vac. Split Virus Individuals 3 Years And Above [id number] Vital Signs Date Vital Result Comment 04/07/2020 1:54pm BP Systolic 122 mmHg BP Diastolic 66 mmHg Body Temperature 97.9 F Heart Rate 64 /min Respiratory Rate 18 /min Height 72 inches 6'0" [place] Body Weight 178 lb O2 % BldC Oximetry 97 % 02/17/2020 3:20pm BP Systolic 138 mmHg BP Diastolic 60 mmHg Body Temperature 97.3 F Heart Rate 58 /min Respiratory Rate 14 /min Height 72 inches 6'0" Weight 250.00 lb [place] Body Weight 178 lb BMI (Body Mass [...] eGFR 60 # Calc 2 eGFR Non-Afr. Romanian 52 # Calc 3 CBC 04/07/2020 [facility]house [...] fL 9.0 - 13.0 Prothrombin Time/Inr 03/25/2020 [facility] ( [facility]) [phone] Prothrombin Time 35.0 seconds High 12.5-14.3 Inr [...] eGFR 55 # Calc 6 eGFR Non-Afr. Romanian 47 # Calc 7 Lipid Panel 03/01/2020 [facility] Chol 140 mg/dL 0 - 200 Trig 110 mg/dL 35 - 200 HDL 32 mg/dL Low 35 - 55 LDL_C 86 Calc 75 - 129 Cho/HDL Ratio 4.4 CALC Prothrombin Time/Inr 02/25/2020 [facility] ( [facility]) [phone] Prothrombin Time 27.4 seconds High 12.5-14.3 Inr [...] eGFR 38 # Calc 10 eGFR Non-Afr. Romanian 33 # Calc 11 CBC 02/17/2020 [facility] [...] 9.0 - 13.0 PT With Inr-Therapy 02/17/2020 [facility] Eryn sue Prothrombin Time-Therapy 43.0 International Normalized Ratio 3.6 Prothrombin Time/Inr 02/10/2020 [facility]) [phone] Prothrombin Time 25.5 seconds High 12.5-14.3 Inr 2.26 Normal 12 Prothrombin Time/Inr 01/12/2020 [facility]) [phone] Prothrombin Time 34.0 seconds High 12.5-14.3 Inr [...] eGFR 55 # Calc 14 eGFR Non-Afr. Romanian 47 # Calc 15 Laboratory test finding 12/25/2019 [facility] Occult Blood NEG Neg Prothrombin Time/Inr 12/23/2019 [facility]) [phone] Prothrombin Time 22.9 seconds High 11.8-14.0 Inr 1.97 Normal 16 Prothrombin Time/Inr 11/10/2019 [facility] ( [facility]) [phone] Prothrombin Time 27.1 seconds High 11.8-14.0 Inr [...] eGFR 60 # Calc 19 eGFR Non-Afr. Romanian 52 # Calc 20 Lipid Panel 11/07/2019 [facility] Chol 156 mg/dL 0 - 200 Trig 118 mg/dL 35 - 200 HDL 35 mg/dL 35 - 55 LDL_C 97 Calc 75 - 129 Cho/HDL Ratio 4.4 Calc Prothrombin Time/Inr 10/27/2019 [facility] ( [facility]) [phone] Prothrombin Time 30.3 seconds High 11.8-14.0 Inr 2.91 Normal 21 Prothrombin Time/Inr 10/20/2019 [facility] ( [facility]) [phone] Prothrombin Time 24.8 seconds High 11.8-14.0 Inr 2.26 Normal 22 Prothrombin Time/Inr 10/14/2019 [facility] ( [facility]) [phone] Prothrombin Time 48.7 seconds High 11.8-14.0 Inr [...] HCT IS 5% LESS SOURCE FOR DATA: [employer] 1800 OPERATION MANUAL( AUTOMATED BLOOD COUNTS AND [...] HCT IS 5% LESS SOURCE FOR DATA: [employer] 1800 OPERATION MANUAL( AUTOMATED BLOOD COUNTS AND [...] HCT IS 5% LESS SOURCE FOR DATA: [employer] 1800 OPERATION MANUAL( AUTOMATED BLOOD COUNTS AND [...] Provider Dx Diagnosis Office Visit 04/07/2020 2:00p [place] [facility] Tiago Jo M. D. N17.9 Acute kidney failure, unspecified Office Visit 02/17/2020 2:45p [place] [facility] Tiago Jo M. D. 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 D. D64.9 Anemia, unspecified I10 Essential (primary) hyperten toshia Office Visit 11/26/2019 3:40p [place] [facility] Tiago Jo M. D. I10 Essential [...] Tiago Jo M.D. 03/01/2020 E78.5 [facility], [facility] 02/17/2020 R19.7 Diarrhea, unspecified Tiago Jo M.D. 02/17/2020 Z79.01 correction (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 of antic oagulants Tiago Jo M.D. 12/30/2019 D64.9 Anemia, unspecified Ramiro Jo M.D. 12/30/2019 I10 Essential (primary) hypertension Tiago Jo M.D. 12/25/2019 D64.9 Anemia, unspecified Ramiro Jo M.D. 11/26/2019 I10 Essential (primary) hypertension Tiago Jo M.D. 11/26/2019 E78.5 Hyperlipidemia, unspecified [facility] Tiago huston M.D. 11/26/2019 R73.01 Impaired fasting glucose Tiago May M.D. 11/26/2019 I48.91 Unspecified atrial fibrillation Tiago Jo M.D. 11/26/2019 J44.9 Chronic obstructive pulmonary di sease, unspecified Tiago Jo M.D. 11/26/2019 G20 Parkinson's disease Ramiro Jo M.D. 11/07/2019 I10 Essential (primary) hypertension Tiago Jo M.D. 11/07/2019 E78.5 Hyperlipidemia, unspecified [facility] iTago huston M.D. Plan of Treatment Future Appointment(s):* 05/31/2020 9:00 am - Laboratory [place] Schedule at [facility] * 06/09/2020 1:30 pm - Tiago Jo M.D. at [facility] Functional Status Description No Information Available Mental Status Description No Information Available Referrals Refer to Dr Reason for Referral Status Appt Date Dixie Moffett possible Parkinsons- eval and rx Sent 12/01/2019 [facility] [address] [address] [phone]
--- OUTSIDE RECORDS SUMMARY | 2020-05-19 14:28 | CCD | Continuity of Care Document ---
Author Author Ronal JO M.D. Organization Unknown Address [address] [address] Phone [phone] Care Team Providers Care Tobacco Weigher Name Role Phone Lorenzo Haddad D.O. AUTM [phone] Anna Marie Barnes AUTM [phone] Problems Active Problems Provider Date Impaired fasting [...] sprays 1-2 times daily each nostril daily 1Tiaog Parker M.D. 10/14/2014 Ferrous Sulfate 325(65Fe) mg [...] CPT Code Status Date Vaccine Lot # 75581 Given 02/07/2017 Influenza Virus Vaccine, Quadrivalent, Slit Virus, Im Use 3Y & Up [id number] 11582 Given 04/13/2015 Influenza Vaccin e (Fluzone) 3Yrs Of Age Or Older Medicare Plans [id number] 79528 Given 03/23/2014 Influenza Vaccin e (Fluzone) 3Yrs Of Age Or Older Medicare Plans [id number] 24068 Given 10/16/2013 Zoster (Shingles) Vaccine 39818 Given 02/05/2013 Influenza Vaccin e (Fluzone) 3Yrs Of Age Or Older Medicare Plans 52531 Given 02/05/2013 Influenza Virus Vac. Split Virus Individuals 3 Years And Above [id number] Vital Signs Date Vital Result Comment 04/07/2020 1:54pm BP Systolic 122 mmHg BP Diastolic 66 mmHg Body Temperature 97.9 F Heart Rate 64 /min Respiratory Rate 18 /min Height 72 inches 6'0" [employer] Body Weight 178 lb O2 % BldC Oximetry 97 % 02/17/2020 3:20pm BP Systolic 138 mmHg BP Diastolic 60 mmHg Body Temperature 97.3 F Heart Rate 58 /min Respiratory Rate 14 /min Height 72 inches 6'0" Weight 250.00 lb [employer] Body Weight 178 lb BMI (Body Mass Index) 33.9 kg/m2 O2 % BldC Oximetry 97 % Results Test Acquired Date Facility Test Result H/L Range Note Prothrombin Time/Inr 04/12/2020 [facility] ( [facility]) [phone] Prothrombin Time 27.0 seconds High 12.5-14.3 Inr 2.43 Normal 1 Basic Metabolic Panel 04/07/2020 [facility]house Glu 87 mg/dL 70 - 110 2 BUN 41 mg/dL High 8 - 23 Creat 1.3 mg/dL High 0.7 - 1.2 BUN/Creatinine Ratio 30.6 CALC Co2 28.1 mmol/L 22.0 - 29.0 CA 9.0 mg/dL 8.6 - 10.2 Na 138 mmol/L 136 - 145 K 3.8 mmol/L 3.5 - 5.1 CL 98.2 mmol/L 98.0 - 107.0 Anion Gap 15 mmol/L eGFR 60 # Calc 3 eGFR Non-Afr. [place] Islander 52 # Calc 4 CBC 04/07/2020 [facility] WBC 7.8 10E3/uL 4.1 [...] fL 9.0 - 13.0 Prothrombin Time/Inr 03/25/2020 [facility] ( [facility]) [phone] Prothrombin Time 35.0 seconds High 12.5-14.3 Inr 3.38 Normal 5 CBC 03/01/2020 [facility] WBC 6.7 10E3/uL 4.1 - 10.9 6 RBC 3.51 10E6/uL Low 4.20 - 6.30 [...] Gap 16 mmol/L eGFR 55 # Calc 7 eGFR Non-Afr. [place] Island[place] 47 # Calc 8 Lipid Panel 03/01/2020 [facility] Chol 140 mg/dL 0 - 200 Trig 110 mg/dL 35 - 200 HDL 32 mg/dL Low 35 - 55 LDL_C 86 Calc 75 - 129 Cho/HDL Ratio 4.4 CALC Prothrombin Time/Inr 02/25/2020 [facility] ( [facility]) [phone] Prothrombin Time 27.4 seconds High 12.5-14.3 Inr 2.48 Normal 9 CMP 02/17/2020 [facility] Glu 106 mg/dL 70 - 110 10 BUN 81 mg/dL High 8 - 23 [...] Gap 20 mmol/L eGFR 38 # Calc 11 eGFR Non-Afr. [place] Island[place] 33 # Calc 12 CBC 02/17/2020 [facility] WBC 11.3 10E3/uL High [...] 9.0 - 13.0 PT With [facility]-Therapy [facility] Prothrombin Time-Therapy 43.0 International Normalized Ratio 3.6 Prothrombin Time/Inr 02/10/2020 [facility] ( [facility]) [phone] Prothrombin Time 25.5 seconds High 12.5-14.3 Inr 2.26 Normal 13 Prothrombin Time/Inr 01/12/2020 [facility] ( [facility]) [phone] Prothrombin Time 34.0 seconds High 12.5-14.3 Inr 3.26 Normal 14 CBC 12/30/2019 [facility] WBC 6.7 10E3/uL 4.1 [...] Gap 15 mmol/L eGFR 55 # Calc 15 eGFR Non-Afr. [place] Island[place] 47 # Calc 16 Laboratory test finding 12/25/2019 [facility] Occult Blood NEG Neg Prothrombin Time/Inr 12/23/2019 [facility] ( [facility]) [phone] Prothrombin Time 22.9 seconds High 11.8-14.0 Inr 1.97 Normal 17 Prothrombin Time/Inr 11/10/2019 [facility] ( [facility]) [phone] Prothrombin Time 27.1 seconds High 11.8-14.0 Inr 2.53 Normal 18 CBC 11/07/2019 [facility] WBC 6.4 10E3/uL 4.1 - 10.9 19 RBC 3.35 10E6/uL Low 4.20 - 6.30 [...] Gap 13 mmol/L eGFR 60 # Calc 20 eGFR Non-Afr. [place] Island[place] 52 # Calc 21 Lipid Panel 11/07/2019 [facility] Chol 156 mg/dL 0 - 200 Trig 118 mg/dL 35 - 200 HDL 35 mg/dL 35 - 55 LDL_C 97 Calc 75 - 129 Cho/HDL Ratio 4.4 Calc Prothrombin Time/Inr 10/27/2019 [facility] ( [facility]) [phone] Prothrombin Time 30.3 seconds High 11.8-14.0 Inr 2.91 Normal 22 Prothrombin Time/Inr 10/20/2019 [facility] ( [facility]) [phone] Prothrombin Time 24.8 seconds High 11.8-14.0 Inr 2.26 Normal 23 Prothrombin Time/Inr 10/14/2019 [facility] ( [facility]) [phone] Prothrombin Time 48.7 seconds High 11.8-14.0 Inr 5.26 Critical high 24 1 THERAPUTIC HUMAN INR VALUES INDICATIONS NORMAL RANGES PROPHYLAXIS/TREATMENT OF: VENOUS THROMBOSIS 2.0-3.0 PULMONARY EMBOLISM 2.0-3.0 PREVENTION OF SYSTEMIC EMBOLISM FROM: TISSUE HEART VALVES 2.0-3.0 ACUTE MYOCARDIAL INFARCTION 2.0-3.0 VALVULAR HEART DISEASE 2.0-3.0 ATRIAL FIBRILLATION 2.0-3.0 MECHANICAL VALVES(HIGH RISK) 2.5-3.5 RECURRENT MYOCARDIAL INFARCTION 2.5-3.5 2 NORMAL RANGES Age WBC RBC HGB HCT [...] HCT IS 5% LESS SOURCE FOR DATA: [employer] 1800 OPERATION MANUAL( AUTOMATED BLOOD COUNTS AND [...] Normal 80 and above >32 mL/min Normal 3 CKD-EPI 4 CKD-EPI 5 THERAPUTIC HUMAN INR VALUES INDICATIONS NORMAL RANGES PROPHYLAXIS/TREATMENT OF: VENOUS THROMBOSIS 2.0-3.0 PULMONARY EMBOLISM 2.0-3.0 PREVENTION OF SYSTEMIC EMBOLISM FROM: TISSUE HEART VALVES 2.0-3.0 ACUTE MYOCARDIAL INFARCTION 2.0-3.0 VALVULAR HEART DISEASE 2.0-3.0 ATRIAL FIBRILLATION 2.0-3.0 MECHANICAL VALVES(HIGH RISK) 2.5-3.5 RECURRENT MYOCARDIAL INFARCTION 2.5-3.5 6 NORMAL RANGES Age WBC RBC HGB HCT [...] HCT IS 5% LESS SOURCE FOR DATA: [employer] 1800 OPERATION MANUAL( AUTOMATED BLOOD COUNTS AND [...] ADOLESCENTS REPRESENTS INDIVIDUALA AGED 2-19 YEARS EXCLUSIVE. 7 CKD-EPI 8 CKD-EPI 9 THERAPUTIC HUMAN INR VALUES INDICATIONS NORMAL RANGES PROPHYLAXIS/TREATMENT OF: VENOUS THROMBOSIS 2.0-3.0 PULMONARY EMBOLISM 2.0-3.0 PREVENTION OF SYSTEMIC EMBOLISM FROM: TISSUE HEART VALVES 2.0-3.0 ACUTE MYOCARDIAL INFARCTION 2.0-3.0 VALVULAR HEART DISEASE 2.0-3.0 ATRIAL FIBRILLATION 2.0-3.0 MECHANICAL VALVES(HIGH RISK) 2.5-3.5 RECURRENT MYOCARDIAL INFARCTION 2.5-3.5 10 NORMAL RANGES Age WBC RBC HGB HCT [...] HCT IS 5% LESS SOURCE FOR DATA: [employer] 1800 OPERATION MANUAL( AUTOMATED BLOOD COUNTS AND [...] Normal 80 and above >32 mL/min Normal 11 CKD-EPI 12 CKD-EPI 13 THERAPUTIC HUMAN INR VALUES INDICATIONS NORMAL RANGES PROPHYLAXIS/TREATMENT OF: VENOUS THROMBOSIS 2.0-3.0 PULMONARY EMBOLISM 2.0-3.0 PREVENTION OF SYSTEMIC EMBOLISM FROM: TISSUE HEART VALVES 2.0-3.0 ACUTE MYOCARDIAL INFARCTION 2.0-3.0 VALVULAR HEART DISEASE 2.0-3.0 ATRIAL FIBRILLATION 2.0-3.0 MECHANICAL VALVES(HIGH RISK) 2.5-3.5 RECURRENT MYOCARDIAL INFARCTION 2.5-3.5 14 THERAPUTIC HUMAN INR VALUES INDICATIONS NORMAL RANGES PROPHYLAXIS/TREATMENT OF: VENOUS THROMBOSIS 2.0-3.0 PULMONARY EMBOLISM 2.0-3.0 PREVENTION OF SYSTEMIC EMBOLISM FROM: TISSUE HEART VALVES 2.0-3.0 ACUTE MYOCARDIAL INFARCTION 2.0-3.0 VALVULAR HEART DISEASE 2.0-3.0 ATRIAL FIBRILLATION 2.0-3.0 MECHANICAL VALVES(HIGH RISK) 2.5-3.5 RECURRENT MYOCARDIAL INFARCTION 2.5-3.5 15 CKD-EPI 16 CKD-EPI 17 THERAPUTIC HUMAN INR VALUES INDICATIONS NORMAL RANGES PROPHYLAXIS/TREATMENT OF: VENOUS THROMBOSIS 2.0-3.0 PULMONARY EMBOLISM 2.0-3.0 PREVENTION OF SYSTEMIC EMBOLISM FROM: TISSUE HEART VALVES 2.0-3.0 ACUTE MYOCARDIAL INFARCTION 2.0-3.0 VALVULAR HEART DISEASE 2.0-3.0 ATRIAL FIBRILLATION 2.0-3.0 MECHANICAL VALVES(HIGH RISK) 2.5-3.5 RECURRENT MYOCARDIAL INFARCTION 2.5-3.5 18 THERAPUTIC HUMAN INR VALUES INDICATIONS NORMAL RANGES PROPHYLAXIS/TREATMENT OF: VENOUS THROMBOSIS 2.0-3.0 PULMONARY EMBOLISM 2.0-3.0 PREVENTION OF SYSTEMIC EMBOLISM FROM: TISSUE HEART VALVES 2.0-3.0 ACUTE MYOCARDIAL INFARCTION 2.0-3.0 VALVULAR HEART DISEASE 2.0-3.0 ATRIAL FIBRILLATION 2.0-3.0 MECHANICAL VALVES(HIGH RISK) 2.5-3.5 RECURRENT MYOCARDIAL INFARCTION 2.5-3.5 19 NORMAL RANGES Age WBC RBC HGB HCT [...] HCT IS 5% LESS SOURCE FOR DATA: [employer] 1800 OPERATION MANUAL( AUTOMATED BLOOD COUNTS AND [...] ADOLESCENTS REPRESENTS INDIVIDUALA AGED 2-19 YEARS EXCLUSIVE. 20 CKD-EPI 21 CKD-EPI 22 THERAPUTIC HUMAN INR VALUES INDICATIONS NORMAL [...] VALVES(HIGH RISK) 2.5-3.5 RECURRENT MYOCARDIAL INFARCTION 2.5-3.5 24 THERAPUTIC HUMAN INR VALUES INDICATIONS NORMAL RANGES [...] Provider Dx Diagnosis Office Visit 04/07/2020 2:00p [place] [facility] Tiago Jo M. D. N17.9 Acute kidney failure, unspecified Office Visit 02/17/2020 2:45p [place] [facility] Tiago Jo M. D. 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 D. D64.9 Anemia, unspecified I10 Essential (primary) hyperten toshia Office Visit 11/26/2019 3:40p [place] [facility] Tiago Jo M. D. I10 Essential [...] Tiago Jo M.D. 03/01/2020 E78.5 [facility], [facility] 02/17/2020 R19.7 Diarrhea, unspecified Tiago Jo M.D. 02/17/2020 Z79.01 intermediate (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 of antic oagulants Tiago Jo M.D. 12/30/2019 D64.9 Anemia, unspecified Ramiro oJ M.D. 12/30/2019 I10 Essential (primary) hypertension Tiago Jo M.D. 12/25/2019 D64.9 Anemia, unspecified Ramiro Jo M.D. 11/26/2019 I10 Essential (primary) hypertension Tiago Jo M.D. 11/26/2019 E78.5 [facility]lipidemia, [facility] 11/26/2019 R73.01 Impaired fasting glucose Tiago May M.D. 11/26/2019 I48.91 Unspecified atrial fibrillation Tiago Jo M.D. 11/26/2019 J44.9 Chronic obstructive pulmonary di sease, unspecified Tiago Jo M.D. 11/26/2019 G20 Parkinson's disease Ramiro Jo M.D. 11/07/2019 I10 Essential (primary) hypertension Tiago Jo M.D. 11/07/2019 E78.5 Hyperlipidemia, unspecified [facility] Tiago huston M.D. Plan of Treatment Future Appointment(s):* 05/31/2020 9:00 am - Laboratory [place] Schedule at [facility] * 06/09/2020 1:30 pm - Tiago Jo M.D. at [facility] Functional Status Description No Information Available Mental Status Description No Information Available Referrals Refer to Dr Reason for Referral Status Appt Date Dixie Moffett possible Parkinsons- eval and rx Sent 12/01/2019 [facility] [address] [address] [phone]
--- OUTSIDE RECORDS SUMMARY | 2020-05-19 14:28 | CCD | Continuity of Care Document ---
Author Author Ronal DOAN PA-C Organization Unknown Address [address] [place] [address], [facility] [place] [address] Phone [phone] Care Team Providers Care Esthetician Facialist Name Role Phone Tiago Jo MD AUTM [phone] Eboni Doan-C AUTM [phone] Shar Turner MD AUTM [phone] Lorenzo Haddad DO AUTM [phone] Gay De León MD AUTM [phone] Rory Ritchie MD AUTM [phone] Silvana Rees MD AUTM [phone] Sharri Barnes AUTM [phone] Problems Active Problems Provider Date Chronic diastolic heart failure Eboni Doan PA-C Onset: 03/29/2011 Benign hypertensive heart disease with congestive card iac failure Eboni Doan PA-C Onset: 03/29/2011 Atrial fibrillation Eboni Doan PA-C Onset: 03/29/2011 Electrocardiogram abnormal Eboni Doan PA-C Onset: 03/29 Aortic valve disorder Eboni Doan PA-C Onset: 03/29/2011 Heart valve replacement Eboni Doan PA-C Onset: 03/29/20 11 Pure hypercholesterolemia Eboni Doan PA-C Onset: 2010 Obesity Eboni Doan, PA-C Onset: 03/29/2011 Obstructive sleep apnea syndrome Eboni Doan PA-C Onset: 03/29/2011 Chronic atrial fibrillation Eboni Doan PA-C Onset: 03/23 Patient post percutaneous transluminal coronary angiop lasty Eboni Doan PA-C Onset: 04/26/2016 Coronary atherosclerosis Eboni Doan PA-C Onset: 017 Dietary management surveillance Eboni Doan PA-C Onset: 02/20/2017 Chronic pulmonary heart disease Eboni Doan PA-C Onset: 02/20/2017 Mitral valve disorder Eboni Doan PA-C Onset: 08/24/2017 Social History Type Date Description Comments Sex Unknown Tobacco Use Start: Unknown End: Unknown Former Cigarette Smo ker Smoked for 30 years up to 1 1/2 ppd quit in 1999 ETOH Use Occasionally consumes alcohol Tobacco Use Start: Unknown End: Unknown Patient is a former smoker up to 1 1/2 ppd x40 yrs, quit 1998 Smoking Status Reviewed: 02/05/20 Patient is a former smoker up to 1 1/2 ppd x40 yrs, quit 1998 Exercise Type/Frequency Does yardwork three time s a week Exercise Type/Frequency Does housework 3 times a week Exercise Limitations Joint Pain knees Exercise Limitations Shortness Of Breath Exercise Limitations Back Pain Allergies, Adverse Reactions, Alerts Description No Known Drug Allergies Medications Active Medications SIG Qnty Indications Ordering Provide r Date Torsemide 20mg Tablets 2 by mouth twice a day Rory Ritchie MD 020 Klor-Con M20 20Meq Tablets ER 1 by mouth daily except 2 po mondays and fridays I50.32 Unknown 02/04/2020 Metolazone 2.5mg Tablets 1 tab by mouth mondays and fridays Rory Ritchie MD Carbidopa-Levodopa 25-100mg Tablet s 1/2 po tid Martina Barnes MD 02/04/2020 Warfarin Sodium 5mg Tablets 2-3 tablets by mouth or as directed 270tabs I48.2 Tony Ndiaye MD 01/05/20 20 Wixela Inhub 250-50mcg/Dose Aeroso l once daily as directed Unknown 08/05/[address] 1 by mouth every day Unknown 09/11/2018 Spiriva Respimat 1.25mcg/Act Aeros ol use as directed Unknown 02/28/2018 Allopurinol 300mg Tablets 1 by mouth every day Unknown 12/06/2017 Ferrous Sulfate 325(65Fe) mg Table ts 1 by mouth every day Rory Ritchie MD 018 Atorvastatin Calcium 20mg Tablets 1 by mouth every night at bedtime 90tabs Tony Ndiaye MD 08/23/2017 Calcium 500+D High Potency [id number] Tablets 1 by mouth daily Unknown 05/01/2017 Folic Acid 1mg Tablets 1 by mouth every day Unknown 02/19/2017 Nitroglycerin 0.4mg Tablets Sub 1 tab sl every 5 min times 3 doses as needed chest disc 25tabs I25.10 J jasen Ndiaye MD 04/25/2016 Proair HFA 108(90Base) mcg/Act Aer osol 2 puffs by mouth as needed Unknown 016 Refresh Optive Advanced 0.5-1-0.5% Solution 1-2 drops each eye as needed Mike De León MD 09/29/2015 Polyethylene Glycol 3350 Powder 17 grams by mouth daily in 4-8oz liquid twice daily Dick Landin MD 10/05/2014 Spironolactone 25mg Tablets 1 po daily 90tabs I50.32 Tony Ndiaye MD 07/02/2013 Fluticasone Propionate 50mcg/Act Suspension 1 spray each nostril daily prn Unknown 06/10/2008 Bisoprolol Fumarate 5mg Tablets 1 by mouth daily 90tabs I50.32 Tony Ndiaye MD 03/18/2008 I48.2 Multivitamins Tablets 1 PO D Davonte Marroquin MD Advair Diskus 250/50 Misc 1 inh po bid Tiago Jo MD Immunizations Description No Information Available Vital Signs Date Vital Result Comment 02/05/2020 1:28pm Weight 253.00 lb Home Weight 255lb Height 72 inches 6'0" BMI (Body Mass Index) 34.3 kg/m2 Heart Rate 60 /min Regular Respiratory Rate 16 /min BP Systolic Right Arm 118 mmHg sitting, large cuf f BP Diastolic Right Arm 68 mmHg sitting, large cu ff BP Systolic Left Arm 122 mmHg sitting BP Diastolic Left Arm 68 mmHg sitting 08/06/2019 11:06am Weight 277.00 lb Home Weight 274lb home weight Height 72 inches 6'0" BMI (Body Mass Index) 37.6 kg/m2 Heart Rate 60 /min Irregular Respiratory Rate 16 /min BP Systolic Right Arm 132 mmHg sitting, large cuf f BP Diastolic Right Arm 68 mmHg sitting, large cu ff BP Systolic Left Arm 128 mmHg sitting BP Diastolic Left Arm 68 mmHg sitting Results Test Acquired Date Facility Test Result H/L Range Note Prothrombin Time/Inr 04/12/2020 [facility] enter [phone] Prothrombin Time 27.0 seconds High 12.5-14.3 Inr 2.43 Normal 1 Prothrombin Time/Inr 03/25/2020 [facility] enter [phone] Prothrombin Time 35.0 seconds High 12.5-14.3 Inr 3.38 Normal 2 Prothrombin Time/Inr 02/25/2020 [facility] enter [phone] Prothrombin Time 27.4 seconds High 12.5-14.3 Inr 2.48 Normal 3 Prothrombin Time/Inr 02/10/2020 [facility] enter [phone] Prothrombin Time 25.5 seconds High 12.5-14.3 Inr 2.26 Normal 4 Prothrombin Time/Inr 01/12/2020 [facility] enter [phone] Prothrombin Time 34.0 seconds High 12.5-14.3 Inr 3.26 Normal 5 BMP 12/30/2019 [facility] (315)- - Calcium Ser/Plasma Mass/Vol 8.6 Sodium 139 Carbon Dioxide Ser/Plasm 23.0 Chloride Serum/Plasma 105.2 Potassium 4.4 Glucose 96 70-110 Blood Urea Nitrogen 31 High 8-23 Creatinine 1.4 High 0.7-1.2 G F R -- CBC without Differential 12/30/2019 [facility] (315)- - White Blood Count 6.7 4.1-10.9 Red Blood Count 3.50 Low 4.20-6.30 Platelets 157 140-440 Hemoglobin 11.8 Low 12.0-18.0 Hematocrit 34.8 Low 37.0-51.0 Prothrombin Time/Inr 12/23/2019 [facility] enter [phone] Prothrombin Time 22.9 seconds High 11.8-14.0 Inr 1.97 Normal 6 PT/Inr 12/09/2019 [facility] - not interfaced (315)- - P T 24.2 I N R 2.12 Prothrombin Time/Inr 12/09/2019 [facility] enter [phone] Prothrombin Time 24.2 seconds High 12.5-14.3 Inr 2.12 Normal 7 Prothrombin Time/Inr 11/10/2019 [facility] enter [phone] Prothrombin Time 27.1 seconds High 11.8-14.0 Inr 2.53 Normal 8 Lab Results 11/07/2019 [facility] CCD Impor t WBC 6.4 10E3/uL 4.1-10.9 9 RBC 3.35 10E6/uL Low 4.20-6.30 HGB 11.2 g/dL Low 12.0-18.0 HCT 33.2 % Low 37.0-51.0 MCV 99.1 fL High 80.0-97.0 MCH 33.4 pg High 26.0-32.0 MCHC 33.7 g/dL 31.0-36.0 PLT 173 10E3/uL 140-440 RDW-CV 16.0 % High 11.5-14.5 Lym% 9.1 % Low 10.0-58.5 Neut% 73.1 % 37.0-92.0 MXD% 17.8 % 0.1-24.0 Lym# 0.6 10E3/uL 0.6-4.1 Neut# 4.7 % 2.0-7.8 MXD# 1.1 10E3/uL 0.0-1.8 MPV 10.5 fL 9.0-13.0 Glu 103 mg/dL 70-110 BUN 28 mg/dL High 8-23 Creat 1.3 mg/dL High 0.7-1.2 BUN/Creatinine Ratio 22.4 CALC Na 139 mmol/L 136-145 K 3.8 mmol/L 3.5-5.1 CL 103.6 mmol/L 98.0-107.0 Co2 26.8 mmol/L 22.0-29.0 CA 8.5 mg/dL Low 8.6-10.2 TP 6.8 g/dL 6.6-8.7 Alb 3.9 g/dL 3.5-5.2 A/G Ratio 1.3 CALC Globulin 2.9 CALC Alp 75.9 U/L 40-129 Alt (SGPT) 11 U/L 0-41 Ast (Sgot) 16 U/L 0-40 Tbili 0.55 mg/dL 0.0-1.2 Osmolality-Calculated 284.0 CALC Anion Gap 13 mmol/L eGFR 60 # 10 eGFR Non-Afr. Zimbabwean 52 # 11 Chol 156 mg/dL 0-200 Trig 118 mg/dL 35-200 HDL 35 mg/dL 35-55 LDL_C 97 Calc 75-129 Cho/HDL Ratio 4.4 Calc Prothrombin Time/Inr 10/27/2019 [facility] enter [phone] Prothrombin Time 30.3 seconds High 11.8-14.0 Inr 2.91 Normal 12 Prothrombin Time/Inr 10/20/2019 [facility] [phone] Prothrombin Time 24.8 seconds High 11.8-14.0 Inr 2.26 Normal 13 Prothrombin Time/Inr 10/14/2019 [facility] [phone] Prothrombin Time 48.7 seconds High 11.8-14.0 Inr 5.26 Critical high 14 1 THERAPUTIC HUMAN INR VALUES INDICATIONS NORMAL RANGES PROPHYLAXIS/TREATMENT OF: VENOUS THROMBOSIS 2.0-3.0 PULMONARY EMBOLISM 2.0-3.0 PREVENTION OF SYSTEMIC EMBOLISM FROM: TISSUE HEART VALVES 2.0-3.0 ACUTE MYOCARDIAL INFARCTION 2.0-3.0 VALVULAR HEART DISEASE 2.0-3.0 ATRIAL FIBRILLATION 2.0-3.0 MECHANICAL VALVES(HIGH RISK) 2.5-3.5 RECURRENT MYOCARDIAL INFARCTION 2.5-3.5 2 THERAPUTIC HUMAN INR VALUES INDICATIONS NORMAL RANGES PROPHYLAXIS/TREATMENT OF: VENOUS THROMBOSIS 2.0-3.0 PULMONARY EMBOLISM 2.0-3.0 PREVENTION OF SYSTEMIC EMBOLISM FROM: TISSUE HEART VALVES 2.0-3.0 ACUTE MYOCARDIAL INFARCTION 2.0-3.0 VALVULAR HEART DISEASE 2.0-3.0 ATRIAL FIBRILLATION 2.0-3.0 MECHANICAL VALVES(HIGH RISK) 2.5-3.5 RECURRENT MYOCARDIAL INFARCTION 2.5-3.5 3 THERAPUTIC HUMAN INR VALUES INDICATIONS NORMAL RANGES PROPHYLAXIS/TREATMENT OF: VENOUS THROMBOSIS 2.0-3.0 PULMONARY EMBOLISM 2.0-3.0 PREVENTION OF SYSTEMIC EMBOLISM FROM: TISSUE HEART VALVES 2.0-3.0 ACUTE MYOCARDIAL INFARCTION 2.0-3.0 VALVULAR HEART DISEASE 2.0-3.0 ATRIAL FIBRILLATION 2.0-3.0 MECHANICAL VALVES(HIGH RISK) 2.5-3.5 RECURRENT MYOCARDIAL INFARCTION 2.5-3.5 4 THERAPUTIC HUMAN INR VALUES INDICATIONS NORMAL RANGES PROPHYLAXIS/TREATMENT OF: VENOUS THROMBOSIS 2.0-3.0 PULMONARY EMBOLISM 2.0-3.0 PREVENTION OF SYSTEMIC EMBOLISM FROM: TISSUE HEART VALVES 2.0-3.0 ACUTE MYOCARDIAL INFARCTION 2.0-3.0 VALVULAR HEART DISEASE 2.0-3.0 ATRIAL FIBRILLATION 2.0-3.0 MECHANICAL VALVES(HIGH RISK) 2.5-3.5 RECURRENT MYOCARDIAL INFARCTION 2.5-3.5 5 THERAPUTIC HUMAN INR VALUES INDICATIONS NORMAL RANGES PROPHYLAXIS/TREATMENT OF: VENOUS THROMBOSIS 2.0-3.0 PULMONARY EMBOLISM 2.0-3.0 PREVENTION OF SYSTEMIC EMBOLISM FROM: TISSUE HEART VALVES 2.0-3.0 ACUTE MYOCARDIAL INFARCTION 2.0-3.0 VALVULAR HEART DISEASE 2.0-3.0 ATRIAL FIBRILLATION 2.0-3.0 MECHANICAL VALVES(HIGH RISK) 2.5-3.5 RECURRENT MYOCARDIAL INFARCTION 2.5-3.5 6 THERAPUTIC HUMAN INR VALUES INDICATIONS NORMAL RANGES PROPHYLAXIS/TREATMENT OF: VENOUS THROMBOSIS 2.0-3.0 PULMONARY EMBOLISM 2.0-3.0 PREVENTION OF SYSTEMIC EMBOLISM FROM: TISSUE HEART VALVES 2.0-3.0 ACUTE MYOCARDIAL INFARCTION 2.0-3.0 VALVULAR HEART DISEASE 2.0-3.0 ATRIAL FIBRILLATION 2.0-3.0 MECHANICAL VALVES(HIGH RISK) 2.5-3.5 RECURRENT MYOCARDIAL INFARCTION 2.5-3.5 7 THERAPUTIC HUMAN INR VALUES INDICATIONS NORMAL RANGES PROPHYLAXIS/TREATMENT OF: VENOUS THROMBOSIS 2.0-3.0 PULMONARY EMBOLISM 2.0-3.0 PREVENTION OF SYSTEMIC EMBOLISM FROM: TISSUE HEART VALVES 2.0-3.0 ACUTE MYOCARDIAL INFARCTION 2.0-3.0 VALVULAR HEART DISEASE 2.0-3.0 ATRIAL FIBRILLATION 2.0-3.0 MECHANICAL VALVES(HIGH RISK) 2.5-3.5 RECURRENT MYOCARDIAL INFARCTION 2.5-3.5 8 THERAPUTIC HUMAN INR VALUES INDICATIONS NORMAL [...] HCT IS 5% LESS SOURCE FOR DATA: [employer] 1800 OPERATION MANUAL( AUTOMATED BLOOD COUNTS AND [...] ADOLESCENTS REPRESENTS INDIVIDUALA AGED 2-19 YEARS EXCLUSIVE. 10 CKD-EPI 11 CKD-EPI 12 THERAPUTIC HUMAN [...] RISK) 2.5-3.5 RECURRENT MYOCARDIAL INFARCTION 2.5-3.5 Procedures Date Code Description Status 03/25/2020 88112 Anticoagulant MGMT F or Patient Taking Warfarin, Inc Review & Intr Completed 02/26/2020 25080 Anticoagulant MGMT F or Patient Taking Warfarin, Inc Review & Intr Completed 02/10/2020 35043 Anticoagulant MGMT F or Patient Taking Warfarin, Inc Review & Intr Completed 02/05/2020 49415 ECG 12-Lead Completed 01/12/2020 07474 Anticoagulant MGMT F or Patient Taking Warfarin, Inc Review & Intr Completed 12/23/2019 22255 Anticoagulant MGMT F or Patient Taking Warfarin, Inc Review & Intr Completed 12/12/2019 47414 Anticoagulant MGMT F or Patient Taking Warfarin, Inc Review & Intr Completed 11/10/2019 95529 Anticoagulant MGMT F or Patient Taking Warfarin, Inc Review & Intr Completed 10/21/2019 00923 Anticoagulant MGMT F or Patient Taking Warfarin, Inc Review & Intr Completed 10/14/2019 09818 Anticoagulant MGMT F or Patient Taking Warfarin, Inc Review & Intr Completed Medical Devices Description No Information Available Encounters Type Date Location Provider Dx Diagnosis Office Visit 02/05/2020 1:00p Main Office Eboni Doan PA-C I25.1 0 Athscl heart disease of [place] coronary artery w/o ang pctrs Z95.5 Presence of coronary angiopl asty implant and graft I50.32 Chronic diastolic (congestiv e) heart failure I11.0 Hypertensive heart disease w ith heart failure I48.21 Permanent atrial fibrillatio n R94.31 Abnormal electrocardiogram [ ECG] [EKG] I35.0 Nonrheumatic aortic (valve) stenosis Z95.2 Presence of prosthetic heart valve I34.0 Nonrheumatic mitral (valve) insufficiency E78.00 Pure hypercholesterolemia, u nspecified I27.81 Cor pulmonale (chronic) G47.33 Obstructive sleep apnea (janice lt) (pediatric) Z71.3 Dietary counseling and surve illance Assessments Date Code Description Provider 03/25/2020 I48.21 Permanent atrial fibrillation Ponce Blue PA-C 03/25/2020 Z79.01 half-way (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 of antic oagulants Eboni Doan PA-C 03/25/2020 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 Eboni Doan PA-C 02/26/2020 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.01 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 (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 of 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 oagulants Eboni Vivasenow, PA-C 02/26/2020 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 Eboni E Ortegaenow, PA-C 02/10/2020 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 Eboni E Ortegaenow, PA-C 02/05/2020 I25.10 Atherosclerotic heart disease of [place] coronary artery with Eboni E Ortegaenow, PA-C 02/05/2020 Z95.5 Presence of coronary angioplasty implant and graft Eboni E Ortegaenow, PA-C 02/05/2020 I50.32 Chronic diastolic (congestive) h eart failure Eboni E Ortegaenow, PA-C 02/05/2020 I11.0 Hypertensive heart disease with heart failure Eboni E Ortegaenow, PA-C 02/05/2020 I48.21 Permanent atrial fibrillation Ponce Levineenow, PA-C 02/05/2020 R94.31 Abnormal electrocardiogram [ECG] [EKG] Eboni E Symenow, PA-C 02/05/2020 I35.0 Nonrheumatic aortic (valve) sten osis Eboni Reyna Symenow, PA-C 02/05/2020 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 Eboni E Ortegaenow, PA-C 02/05/2020 I34.0 Nonrheumatic mitral (valve) insu fficiency Eboni Beckw, PA-C 02/05/2020 E78.00 Pure hypercholesterolemia, unspe cified Eboni E Ortegaenow, PA-C 02/05/2020 I27.81 Cor pulmonale (chronic) Eboni Reyna S ymenow, PA-C 02/05/2020 G47.33 Obstructive sleep apnea (adult) (pediatric) Eboni E Ortegaenow, PA-C 02/05/2020 Z71.3 Dietary counseling and surveilla nce Eboni E Ortegaenow, PA-C 01/12/2020 I48.21 Permanent atrial fibrillation Ponce Levineenow, PA-C 01/12/2020 Z79.01 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 (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 of antic oagulants Eboni E Ortegaenow, PA-C 12/23/2019 Z79.01 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 (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 of antic oagulants FREDDY Connors 12/12/2019 I48.21 Permanent atrial fibrillation Ponce aysha Doan PA-C 12/12/2019 Z79.01 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 (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 of antic oagulants Eboni Doan PA-C 11/10/2019 I48.21 Permanent atrial fibrillation Ponce olmstead DEE DEE HiltonC 11/10/2019 Z79.01 half-way (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 of antic oagulants DEE DEE GaitanC 10/21/2019 I48.21 Permanent atrial fibrillation Ponce Gilliland FREDDY Doan-C 10/21/2019 Z79.01 half-way (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 of antic oagulants DEE DEE GaitanC 10/14/2019 Z79.01 half-way (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 of antic oagulants FREDDY Connors Plan of Treatment Future Appointment(s):* 08/10/2020 1:00 pm - Eboni Doan PA-C at Main Office 02/05/2020 - Eboni Doan PA-C* I25.10 Atherosclerotic heart disease of [place] coronary artery with * Z95.5 Presence of coronary angioplasty implant and graft * I50.32 Chronic diastolic (congestive) heart failure* Recommendations:* Follow a 2 grams sodium diet and 50 ounces fluid restriction per 24 hour and do daily weights. Call the office for weight gain of 3 lbs or more. * I11.0 Hypertensive heart disease with heart failure * I48.21 Permanent atrial fibrillation * R94.31 Abnormal electrocardiogram [ECG] [EKG] * I35.0 Nonrheumatic aortic (valve) stenosis* New Xrays:* US Echocardiogram Transthoracic W Doppler And Color Flow, Scheduled: 04/23/20 * Z95.2 Presence of prosthetic heart valve* New Xrays:* US Echocardiogram Transthoracic W Doppler And Color Flow, Scheduled: 04/23/20 * Recommendations:* You require antibiotics prior to any dental work and some surgical procedures. * I34.0 Nonrheumatic mitral (valve) insufficiency* New Xrays:* US Echocardiogram Transthoracic W Doppler And Color Flow, Scheduled: 04/23/20 * E78.00 Pure hypercholesterolemia, unspecified * I27.81 Cor pulmonale (chronic) * G47.33 Obstructive sleep apnea (adult) (pediatric) * Z71.3 Dietary counseling and surveillance* Recommendations:* Follow a low fat/low cholesterol diet and do as much aerobic exercise as you can tolerate. * All * Follow up:* 6 month follow up (per patient request). Request last lipids from PCP. Functional Status Functional Condition Comment Date Status Independent with all ADL's Activ e Mental Status Description No Information Available Referrals Description No Information Available
--- OUTSIDE RECORDS SUMMARY | 2020-05-19 14:29 | CCD | Continuity of Care Document ---
Author Author Ronal JO M.D. Organization Unknown Address [address] [address] Phone [phone] Care Team Providers Care Manager Port Name Role Phone Lorenzo Haddad D.O. AUTM [phone] Anna Marie Barnes AUTM [phone] Problems Active Problems Provider Date Impaired fasting [...] Shingrix 50mcg/0.5ML Suspension Re c as directed 1Tiaog Parker M.D. 11/23/19 19 Polyethylene Glycol 3350 [...] CPT Code Status Date Vaccine Lot # [id number] Given 02/07/2017 Influenza Virus Vaccine, Quadrivalent, Slit Virus, Im Use 3Y & Up [id number] Given 04/13/2015 Influenza Vaccin e (Fluzone) 3Yrs Of Age Or Older Medicare Plans [id number] 82737 Given 03/23/2014 Influenza Vaccin e (Fluzone) 3Yrs Of Age Or Older Medicare Plans [id number] 50031 Given 10/16/2013 Zoster (Shingles) Vaccine 97815 Given 02/05/2013 Influenza Vaccin e (Fluzone) 3Yrs Of Age Or Older Medicare Plans 48917 Given 02/05/2013 Influenza Virus Vac. Split Virus Individuals 3 Years And Above [id number] Vital Signs Date Vital Result Comment 04/07/2020 1:54pm BP Systolic 122 mmHg BP Diastolic 66 mmHg Body Temperature 97.9 F Heart Rate 64 /min Respiratory Rate 18 /min Height 72 inches 6'0" [place] Body Weight 178 lb O2 % BldC Oximetry 97 % 02/17/2020 3:20pm BP Systolic 138 mmHg BP Diastolic 60 mmHg Body Temperature 97.3 F Heart Rate 58 /min Respiratory Rate 14 /min Height 72 inches 6'0" Weight 250.00 lb [place] Body Weight 178 lb BMI (Body Mass [...] eGFR 60 # Calc 2 eGFR Non-Afr. Moldovan 52 # Calc 3 Prothrombin Time/Inr 03/25/2020 [facility] ( [facility]) [phone] Prothrombin Time 35.0 seconds High 12.5-14.3 Inr [...] eGFR 55 # Calc 6 eGFR Non-Afr. Moldovan 47 # Calc 7 Lipid Panel 03/01/2020 [facility] Chol 140 mg/dL 0 - 200 Trig 110 mg/dL 35 - 200 HDL 32 mg/dL Low 35 - 55 LDL_C 86 Calc 75 - 129 Cho/HDL Ratio 4.4 CALC Prothrombin Time/Inr 02/25/2020 [facility] ( [facility]) [phone] Prothrombin Time 27.4 seconds High 12.5-14.3 Inr [...] eGFR 38 # Calc 10 eGFR Non-Afr. Moldovan 33 # Calc 11 CBC 02/17/2020 [facility] [...] 9.0 - 13.0 PT With Inr-Therapy 02/17/2020 [facility] Prothrombin Time-Therapy 43.0 International Normalized Ratio 3.6 Prothrombin Time/Inr 02/10/2020 [facility] ( [facility]) [phone] Prothrombin Time 25.5 seconds High 12.5-14.3 Inr 2.26 Normal 12 Prothrombin Time/Inr 01/12/2020 [facility] ( [facility]) [phone] Prothrombin Time 34.0 seconds High 12.5-14.3 Inr [...] eGFR 55 # Calc 14 eGFR Non-Afr. Moldovan 47 # Calc 15 Laboratory test finding 12/25/2019 [facility] Occult Blood NEG Neg Prothrombin Time/Inr 12/23/2019 [facility] ( [facility]) [phone] Prothrombin Time 22.9 seconds High 11.8-14.0 Inr 1.97 Normal 16 Prothrombin Time/Inr 11/10/2019 [facility] ( [facility]) [phone] Prothrombin Time 27.1 seconds High 11.8-14.0 Inr [...] eGFR 60 # Calc 19 eGFR Non-Afr. Moldovan 52 # Calc 20 Lipid Panel 11/07/2019 [facility] Chol 156 mg/dL 0 - 200 Trig 118 mg/dL 35 - 200 HDL 35 mg/dL 35 - 55 LDL_C 97 Calc 75 - 129 Cho/HDL Ratio 4.4 Calc Prothrombin Time/Inr 10/27/2019 [facility]) [phone] Prothrombin Time 30.3 seconds High 11.8-14.0 Inr 2.91 Normal 21 Prothrombin Time/Inr 10/20/2019 [facility]) [phone] Prothrombin Time 24.8 seconds High 11.8-14.0 Inr 2.26 Normal 22 Prothrombin Time/Inr 10/14/2019 [facility]) [phone] Prothrombin Time 48.7 seconds High 11.8-14.0 Inr [...] HCT IS 5% LESS SOURCE FOR DATA: [place] 1800 OPERATION MANUAL( AUTOMATED BLOOD COUNTS AND [...] HCT IS 5% LESS SOURCE FOR DATA: [place] 1800 OPERATION MANUAL( AUTOMATED BLOOD COUNTS AND [...] HCT IS 5% LESS SOURCE FOR DATA: [place] 1800 OPERATION MANUAL( AUTOMATED BLOOD COUNTS AND [...] Provider Dx Diagnosis Office Visit 04/07/2020 2:00p [place] [facility] Tiago Jo M. D. N17.9 Acute kidney failure, unspecified Office Visit 02/17/2020 2:45p [facility] Tiago Jo M. D. R19.7 Diarrhea, unspecified Z79.01 alf (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 of a nticoagulants Office Visit 12/30/2019 2:30p [facility] Tiago Jo M. D. D64.9 Anemia, unspecified I10 Essential (primary) hyperten toshia Office Visit 11/26/2019 3:40p [facility] Tiago Jo M. D. I10 Essential [...] Tiago Jo M.D. 03/01/2020 E78.5 [facility], [facility] 02/17/2020 R19.7 Diarrhea, unspecified Tiago Jo M.D. 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 12/30/2019 D64.9 Anemia, unspecified Ramiro Jo M.D. 12/30/2019 I10 Essential (primary) hypertension Tiago Jo M.D. 12/25/2019 D64.9 Anemia, ofeliaified Ramiro Jo M.D. 11/26/2019 I10 Essential (primary) hypertension Tiago Jo M.D. 11/26/2019 E78.5 Hyperlipidemia, unspecified Tiago Doe M.D. 11/26/2019 R73.01 Impaired fasting glucose Tiago May M.D. 11/26/2019 I48.91 Unspecified atrial fibrillation Tiago Jo M.D. 11/26/2019 J44.9 Chronic obstructive pulmonary di sease, unspecified Tiago Jo M.D. 11/26/2019 G20 Parkinson's disease Ramiro Jo M.D. 11/07/2019 I10 Essential (primary) hypertension Tiago Jo M.D. 11/07/2019 E78.5 Hyperlipidemia, unspecified [facility] Tiago huston M.D. Plan of Treatment Future Appointment(s):* 05/31/2020 9:00 am - Laboratory [place] Schedule at [facility] * 06/09/2020 1:30 pm - Tiago oJ M.D. at [facility] Functional Status Description No Information Available Mental Status Description No Information Available Referrals Refer to Reason for Referral Status Appt Date Dixie Moffett possible Parkinsons- eval and rx Sent 12/01/2019 [facility] [address] [address] [phone]
--- OUTSIDE RECORDS SUMMARY | 2020-05-19 14:29 | CCD | Continuity of Care Document ---
Author Author Ronal JO M.D. Organization Unknown Address [address] [address] Phone [phone] Care Team Providers Care Tire And Tube Repairer Name Role Phone Lorenzo Haddad D.O. AUTM [phone] Anna Marie Barnes AUTM [phone] Problems Active Problems Provider Date Impaired fasting [...] CPT Code Status Date Vaccine Lot # 52894 Given 02/07/2017 Influenza Virus Vaccine, Quadrivalent, Slit Virus, Im Use 3Y & Up [id number] 76037 Given 04/13/2015 Influenza Vaccin e (Fluzone) 3Yrs Of Age Or Older Medicare Plans [id number] 02120 Given 03/23/2014 Influenza Vaccin e (Fluzone) 3Yrs Of Age Or Older Medicare Plans [id number] 01061 Given 10/16/2013 Zoster (Shingles) Vaccine 62622 Given 02/05/2013 Influenza Vaccin e (Fluzone) 3Yrs Of Age Or Older Medicare Plans 95445 Given 02/05/2013 Influenza Virus Vac. Split Virus Individuals 3 Years And Above [id number] Vital Signs Date Vital Result Comment 04/07/2020 1:54pm BP Systolic 122 mmHg BP Diastolic 66 mmHg Body Temperature 97.9 F Heart Rate 64 /min Respiratory Rate 18 /min Height 72 inches 6'0" [place] Body Weight 178 lb O2 % BldC Oximetry 97 % 02/17/2020 3:20pm BP Systolic 138 mmHg BP Diastolic 60 mmHg Body Temperature 97.3 F Heart Rate 58 /min Respiratory Rate 14 /min Height 72 inches 6'0" Weight 250.00 lb [place] Body Weight 178 lb BMI (Body Mass Index) 33.9 kg/m2 O2 % BldC Oximetry 97 % Results Test Acquired Date Facility Test Result H/L Range Note Prothrombin Time/Inr 03/25/2020 [facility] ( Interface) [phone] Prothrombin Time 35.0 seconds High 12.5-14.3 Inr 3.38 Normal 1 CBC 03/01/2020 [facility] WBC 6.7 10E3/uL 4.1 - 10.9 2 RBC 3.51 10E6/uL Low 4.20 - 6.30 [...] Gap 16 mmol/L eGFR 55 # Calc 3 eGFR Non-Afr. Croatian 47 # Calc 4 Lipid Panel 03/01/2020 [facility] Chol 140 mg/dL 0 - 200 Trig 110 mg/dL 35 - 200 HDL 32 mg/dL Low 35 - 55 LDL_C 86 Calc 75 - 129 Cho/HDL Ratio 4.4 CALC Prothrombin Time/Inr 02/25/2020 [facility] ( [facility]) [phone] Prothrombin Time 27.4 seconds High 12.5-14.3 Inr 2.48 Normal 5 CMP 02/17/2020 [facility] Glu 106 mg/dL 70 - 110 6 BUN 81 mg/dL High 8 - 23 [...] Gap 20 mmol/L eGFR 38 # Calc 7 eGFR Non-Afr. Croatian 33 # Calc 8 CBC 02/17/2020 [facility] WBC 11.3 10E3/uL High [...] 9.0 - 13.0 PT With In[facility]-Therapy [facility]-Therapy 43.0 International Normalized Ratio 3.6 Prothrombin Time/Inr 02/10/2020 [facility] ( Interface) [phone] Prothrombin Time 25.5 seconds High 12.5-14.3 Inr 2.26 Normal 9 Prothrombin Time/Inr 01/12/2020 [facility] ( Interface) [phone] Prothrombin Time 34.0 seconds High 12.5-14.3 Inr 3.26 Normal 10 CBC 12/30/2019 [facility] WBC 6.7 10E3/uL 4.1 [...] Gap 15 mmol/L eGFR 55 # Calc 11 eGFR Non-Afr. Croatian 47 # Calc 12 Laboratory test finding 12/25/2019 [facility] Occult Blood NEG Neg Prothrombin Time/Inr 12/23/2019 [facility] ( Interface) [phone] Prothrombin Time 22.9 seconds High 11.8-14.0 Inr 1.97 Normal 13 Prothrombin Time/Inr 11/10/2019 [facility] ( Interface) [phone] Prothrombin Time 27.1 seconds High 11.8-14.0 Inr 2.53 Normal 14 CBC 11/07/2019 [facility] WBC 6.4 10E3/uL 4.1 - 10.9 15 RBC 3.35 10E6/uL Low 4.20 - 6.30 [...] Gap 13 mmol/L eGFR 60 # Calc 16 eGFR Non-Afr. Croatian 52 # Calc 17 Lipid Panel 11/07/2019 [facility] Chol 156 mg/dL 0 - 200 Trig 118 mg/dL 35 - 200 HDL 35 mg/dL 35 - 55 LDL_C 97 Calc 75 - 129 Cho/HDL Ratio 4.4 Calc Prothrombin Time/Inr 10/27/2019 [facility] ( Interface) [phone] Prothrombin Time 30.3 seconds High 11.8-14.0 Inr 2.91 Normal 18 Prothrombin Time/Inr 10/20/2019 [facility] ( Interface) [phone] Prothrombin Time 24.8 seconds High 11.8-14.0 Inr 2.26 Normal 19 Prothrombin Time/Inr 10/14/2019 [facility] ( Interface) [phone] Prothrombin Time 48.7 seconds High 11.8-14.0 Inr 5.26 Critical high 20 1 THERAPUTIC HUMAN INR VALUES INDICATIONS NORMAL [...] HCT IS 5% LESS SOURCE FOR DATA: [employer] 1800 OPERATION MANUAL( AUTOMATED BLOOD COUNTS AND [...] ADOLESCENTS REPRESENTS INDIVIDUALA AGED 2-19 YEARS EXCLUSIVE. 3 CKD-EPI 4 CKD-EPI 5 THERAPUTIC HUMAN [...] Normal 80 and above >32 mL/min Normal 7 CKD-EPI 8 CKD-EPI 9 THERAPUTIC HUMAN INR VALUES INDICATIONS NORMAL RANGES PROPHYLAXIS/TREATMENT OF: VENOUS THROMBOSIS 2.0-3.0 PULMONARY EMBOLISM 2.0-3.0 PREVENTION OF SYSTEMIC EMBOLISM FROM: TISSUE HEART VALVES 2.0-3.0 ACUTE MYOCARDIAL INFARCTION 2.0-3.0 VALVULAR HEART DISEASE 2.0-3.0 ATRIAL FIBRILLATION 2.0-3.0 MECHANICAL VALVES(HIGH RISK) 2.5-3.5 RECURRENT MYOCARDIAL INFARCTION 2.5-3.5 10 THERAPUTIC HUMAN INR VALUES INDICATIONS NORMAL RANGES PROPHYLAXIS/TREATMENT OF: VENOUS THROMBOSIS 2.0-3.0 PULMONARY EMBOLISM 2.0-3.0 PREVENTION OF SYSTEMIC EMBOLISM FROM: TISSUE HEART VALVES 2.0-3.0 ACUTE MYOCARDIAL INFARCTION 2.0-3.0 VALVULAR HEART DISEASE 2.0-3.0 ATRIAL FIBRILLATION 2.0-3.0 MECHANICAL VALVES(HIGH RISK) 2.5-3.5 RECURRENT MYOCARDIAL INFARCTION 2.5-3.5 11 CKD-EPI 12 CKD-EPI 13 THERAPUTIC HUMAN [...] RISK) 2.5-3.5 RECURRENT MYOCARDIAL INFARCTION 2.5-3.5 15 NORMAL RANGES Age WBC RBC HGB HCT [...] ADOLESCENTS REPRESENTS INDIVIDUALA AGED 2-19 YEARS EXCLUSIVE. 16 CKD-EPI 17 CKD-EPI 18 THERAPUTIC HUMAN INR VALUES INDICATIONS NORMAL RANGES PROPHYLAXIS/TREATMENT OF: VENOUS THROMBOSIS 2.0-3.0 PULMONARY EMBOLISM 2.0-3.0 PREVENTION OF SYSTEMIC EMBOLISM FROM: TISSUE HEART VALVES 2.0-3.0 ACUTE MYOCARDIAL INFARCTION 2.0-3.0 VALVULAR HEART DISEASE 2.0-3.0 ATRIAL FIBRILLATION 2.0-3.0 MECHANICAL VALVES(HIGH RISK) 2.5-3.5 RECURRENT MYOCARDIAL INFARCTION 2.5-3.5 19 THERAPUTIC HUMAN INR VALUES INDICATIONS NORMAL RANGES PROPHYLAXIS/TREATMENT OF: VENOUS THROMBOSIS 2.0-3.0 PULMONARY EMBOLISM 2.0-3.0 PREVENTION OF SYSTEMIC EMBOLISM FROM: TISSUE HEART VALVES 2.0-3.0 ACUTE MYOCARDIAL INFARCTION 2.0-3.0 VALVULAR HEART DISEASE 2.0-3.0 ATRIAL FIBRILLATION 2.0-3.0 MECHANICAL VALVES(HIGH RISK) 2.5-3.5 RECURRENT MYOCARDIAL INFARCTION 2.5-3.5 20 THERAPUTIC HUMAN INR VALUES INDICATIONS NORMAL RANGES [...] Provider Dx Diagnosis Office Visit 04/07/2020 2:00p [place] [facility] Tiago Jo M. D. N17.9 Acute kidney failure, unspecified Office Visit 02/17/2020 2:45p [facility] [facility] Tiago Jo M. D. R19.7 Diarrhea, unspecified Z79.01 residential (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 of a nticoagulants Office Visit 12/30/2019 2:30p [place] [facility] Tiago Jo M. D. D64.9 Anemia, unspecified I10 Essential (primary) hyperten toshia Office Visit 11/26/2019 3:40p [place] Tiago Jo M. D. I10 Essential [...] Tiago Jo M.D. 03/01/2020 E78.5 Hyperlipidemia, unspecified [facility] Tiago huston M.D. 02/17/2020 R19.7 Diarrhea, unspecified Tiago Jo M.D. 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 12/30/2019 D64.9 Anemia, unspecified Ramiro Jo M.D. 12/30/2019 I10 Essential (primary) hypertension Tiago Jo M.D. 12/25/2019 D64.9 Anemia, unspecified Ramiro Jo M.D. 11/26/2019 I10 Essential (primary) hypertension Tiago Jo M.D. 11/26/2019 E78.5 Hyperlipidemia, unspecified [facility] Tiago huston M.D. 11/26/2019 R73.01 Impaired fasting glucose Tiago May M.D. 11/26/2019 I48.91 Unspecified atrial fibrillation Tiago Jo M.D. 11/26/2019 J44.9 Chronic obstructive pulmonary di sease, unspecified Tiago Jo M.D. 11/26/2019 G20 Parkinson's disease Ramiro Jo M.D. 11/07/2019 I10 Essential (primary) hypertension Tiago Jo M.D. 11/07/2019 E78.5 Hyperlipidemia, unspecified [facility] Tiago huston M.D. Plan of Treatment No Information Available Functional Status Description No Information Available Mental Status Description No Information Available Referrals Refer to Dr Reason for Referral Status Appt Date Dixie Moffett possible Parkinsons- eval and rx Sent 12/01/2019 [facility] [address] [place], [place] [id number] [phone]
--- OUTSIDE RECORDS SUMMARY | 2020-05-19 14:29 | CCD | Continuity of Care Document ---
Author Author Eduarda Tamir Ronal Webster Organization Unknown Address 3 [facility] [address] [place] [address] Phone [phone] Care Team Providers Care Baggage Security Checker Name Role Phone Lorenzo Haddad D.O. AUTM [phone] Anna Marie Barnes AUTM [phone] Problems Active Problems Provider Date Impaired fasting [...] SIG Qnty Indications Ordering Provide r Date Metolazone 2.5mg Tablets (Hold) one by mouth on Sunday and Sunday 30tabs Tiago Jo M. D. 02/17/2020 Albuterol Sulfate HFA 108(90Base) mcg/Act Aerosol Inhale 2 Puffs By Mouth Every 4 Hours as Needed For Sh ortness Of Breath 25.5unTiago Bridges M.D. 02/10/2020 Wixela Inhub 250-50mcg/Dose Aeroso l Inhale 1 Inhalation In The Morning And AT Night 180DisTiago Connor M.D. 08/28/2019 Shingrix 50mcg/0.5ML Suspension Re c as directed 1unTiago Bridges M.D. 11/23/19 19 Polyethylene Glycol 3350 3350NF Po wder Dilute 1 Capful(17GM)Once Daily Disolved In 4-8 Oz Of Liquid 527unTiago Bridges M.D. 10/29/2017 Spiriva Respimat 1.25mcg/Act Aeros ol Inhale 1 puff By Mouth Once Daily 12unJamaal Bridges M.D. 05/10/2015 Potassium Chloride ER 20Meq Tablet [...] 1 Tablet By Mouth Twice A Day 180taTiago Castillo M.D. 07/03/2014 Bisoprolol Fumarate 5mg Tablets 1 by mouth every day 90tafrancesca Haddad D.O., FAAFP Carbidopa-Levodopa 25-100mg Tablet s 1/2 tab tid [...] CPT Code Status Date Vaccine Lot # 79594 Given 02/07/2017 Influenza Virus Vaccine, Quadrivalent, Slit Virus, Im Use 3Y & Up [id number] 04756 Given 04/13/2015 Influenza Vaccin e (Fluzone) 3Yrs Of Age Or Older Medicare Plans [id number] 70245 Given 03/23/2014 Influenza Vaccin e (Fluzone) 3Yrs Of Age Or Older Medicare Plans [id number] 60234 Given 10/16/2013 Zoster (Shingles) Vaccine 03935 Given 02/05/2013 Influenza Vaccin e (Fluzone) 3Yrs Of Age Or Older Medicare Plans 49687 Given 02/05/2013 Influenza Virus Vac. Split Virus Individuals 3 Years And Above [id number] Vital Signs Date Vital Result Comment 02/17/2020 3:20pm BP Systolic 138 mmHg BP Diastolic 60 mmHg Body Temperature 97.3 F Heart Rate 58 /min Respiratory Rate 14 /min Height 72 inches 6'0" Weight 250.00 lb [place] Body Weight 178 lb BMI (Body Mass Index) 33.9 kg/m2 O2 % BldC Oximetry 97 % 12/30/2019 2:37pm BP Systolic 128 mmHg BP Diastolic 76 mmHg Body Temperature 98.3 F Heart Rate 68 /min Respiratory Rate 18 /min Height 72 inches 6'0" Weight 277.00 lb [place] Body Weight 178 lb BMI (Body Mass Index) 37.6 kg/m2 O2 % BldC Oximetry 94 % Results Test Acquired Date Facility Test Result H/L Range Note CBC 03/01/2020 [facility] WBC 6.7 10E3/uL 4.1 - 10.9 1 RBC 3.51 10E6/uL Low 4.20 - 6.30 [...] Gap 16 mmol/L eGFR 55 # Calc 2 eGFR Non-Afr. Nicaraguan 47 # Calc 3 Lipid Panel 03/01/2020 [facility] Chol 140 mg/dL 0 - 200 Trig 110 mg/dL 35 - 200 HDL 32 mg/dL Low 35 - 55 LDL_C 86 Calc 75 - 129 Cho/HDL Ratio 4.4 CALC Prothrombin Time/Inr 02/25/2020 [facility] ( [facility]) [phone] Prothrombin Time 27.4 seconds High 12.5-14.3 Inr 2.48 Normal 4 CMP 02/17/2020 [facility] Glu 106 mg/dL 70 - 110 5 BUN 81 mg/dL High 8 - 23 [...] Gap 20 mmol/L eGFR 38 # Calc 6 eGFR Non-Afr. Nicaraguan 33 # Calc 7 CBC 02/17/2020 [facility] WBC 11.3 10E3/uL High [...] 9.0 - 13.0 [facility] 43.0 International Normalized Ratio 3.6 Prothrombin Time/Inr 02/10/2020 [facility] ( Interface) [phone] Prothrombin Time 25.5 seconds High 12.5-14.3 Inr 2.26 Normal 8 Prothrombin Time/Inr 01/12/2020 [facility] ( Interface) [phone] Prothrombin Time 34.0 seconds High 12.5-14.3 Inr 3.26 Normal 9 Basic Metabolic Panel 12/30/2019 [facility] Glu 96 [...] Gap 15 mmol/L eGFR 55 # Calc 10 eGFR Non-Afr. Nicaraguan 47 # Calc 11 CBC 12/30/2019 [facility] WBC 6.7 10E3/uL 4.1 [...] 1.8 MPV 11.7 fL 9.0 - 13.0 Laboratory test finding 12/25/2019 [facility] Occult Blood NEG Neg Prothrombin Time/Inr 12/23/2019 [facility] ( Interface) [phone] Prothrombin Time 22.9 seconds High 11.8-14.0 Inr 1.97 Normal 12 Prothrombin Time/Inr 11/10/2019 [facility] ( Interface) [phone] Prothrombin Time 27.1 seconds High 11.8-14.0 Inr 2.53 Normal 13 CBC 11/07/2019 [facility] WBC 6.4 10E3/uL 4.1 - 10.9 14 RBC 3.35 10E6/uL Low 4.20 - 6.30 [...] Gap 13 mmol/L eGFR 60 # Calc 15 eGFR Non-Afr. Nicaraguan 52 # Calc 16 Lipid Panel 11/07/2019 [facility] Chol 156 mg/dL 0 - 200 Trig 118 mg/dL 35 - 200 HDL 35 mg/dL 35 - 55 LDL_C 97 Calc 75 - 129 Cho/HDL Ratio 4.4 Calc Prothrombin Time/Inr 10/27/2019 [facility]) [phone] Prothrombin Time 30.3 seconds High 11.8-14.0 Inr 2.91 Normal 17 Prothrombin Time/Inr 10/20/2019 [facility]) [phone] Prothrombin Time 24.8 seconds High 11.8-14.0 Inr 2.26 Normal 18 Prothrombin Time/Inr 10/14/2019 [facility]) [phone] Prothrombin Time 48.7 seconds High 11.8-14.0 Inr 5.26 Critical high 19 Prothrombin Time/Inr 09/29/2019 [facility]) [phone] Prothrombin Time 41.0 seconds High 11.8-14.0 Inr 4.24 Normal 20 Prothrombin Time/Inr 09/03/2019 [facility]) [phone] Prothrombin Time 29.0 seconds High 11.8-14.0 Inr 2.75 Normal 21 1 NORMAL RANGES Age WBC RBC HGB [...] HCT IS 5% LESS SOURCE FOR DATA: [employer] 1800 OPERATION MANUAL( AUTOMATED BLOOD COUNTS AND [...] ADOLESCENTS REPRESENTS INDIVIDUALA AGED 2-19 YEARS EXCLUSIVE. 2 CKD-EPI 3 CKD-EPI 4 THERAPUTIC HUMAN [...] HCT IS 5% LESS SOURCE FOR DATA: [employer] 1800 OPERATION MANUAL( AUTOMATED BLOOD COUNTS AND [...] Normal 80 and above >32 mL/min Normal 6 CKD-EPI 7 CKD-EPI 8 THERAPUTIC HUMAN INR VALUES INDICATIONS NORMAL RANGES PROPHYLAXIS/TREATMENT OF: VENOUS THROMBOSIS 2.0-3.0 PULMONARY EMBOLISM 2.0-3.0 PREVENTION OF SYSTEMIC EMBOLISM FROM: TISSUE HEART VALVES 2.0-3.0 ACUTE MYOCARDIAL INFARCTION 2.0-3.0 VALVULAR HEART DISEASE 2.0-3.0 ATRIAL FIBRILLATION 2.0-3.0 MECHANICAL VALVES(HIGH RISK) 2.5-3.5 RECURRENT MYOCARDIAL INFARCTION 2.5-3.5 9 THERAPUTIC HUMAN INR VALUES INDICATIONS NORMAL RANGES PROPHYLAXIS/TREATMENT OF: VENOUS THROMBOSIS 2.0-3.0 PULMONARY EMBOLISM 2.0-3.0 PREVENTION OF SYSTEMIC EMBOLISM FROM: TISSUE HEART VALVES 2.0-3.0 ACUTE MYOCARDIAL INFARCTION 2.0-3.0 VALVULAR HEART DISEASE 2.0-3.0 ATRIAL FIBRILLATION 2.0-3.0 MECHANICAL VALVES(HIGH RISK) 2.5-3.5 RECURRENT MYOCARDIAL INFARCTION 2.5-3.5 10 CKD-EPI 11 CKD-EPI 12 THERAPUTIC HUMAN [...] RISK) 2.5-3.5 RECURRENT MYOCARDIAL INFARCTION 2.5-3.5 14 NORMAL RANGES Age WBC RBC HGB HCT [...] ADOLESCENTS REPRESENTS INDIVIDUALA AGED 2-19 YEARS EXCLUSIVE. 15 CKD-EPI 16 CKD-EPI 17 THERAPUTIC HUMAN [...] VALVES(HIGH RISK) 2.5-3.5 RECURRENT MYOCARDIAL INFARCTION 2.5-3.5 21 THERAPUTIC HUMAN INR VALUES INDICATIONS NORMAL [...] Date Location Provider Dx Diagnosis Office Visit 02/17/2020 2:45p [place] [facility] Tiago Jo M. D. R19.7 Diarrhea, unspecified Z79.01 [facility] (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 of a nticoagulants Office Visit 12/30/2019 2:30p [place] [facility] Tiago Jo M. D. D64.9 Anemia, unspecified I10 Essential (primary) hyperten toshia Office Visit 11/26/2019 3:40p [place] [facility] Tiago Jo M. D. I10 Essential (primary) hypertension E78.5 Hyperlipidemia, unspecified R73.01 Impaired fasting glucose I48.91 Unspecified atrial fibrillat ion J44.9 Chronic obstructive pulmonar y disease, unspecified G20 Parkinson's disease Assessments Date Code Description Provider 03/01/2020 I10 Essential (primary) hypertension Tiago Jo M.D. 03/01/2020 E78.5 Hyperlipidemia, unspecified [facility] Tiago huston M.D. 02/17/2020 R19.7 Diarrhea, unspecified Tiago Jo M.D. 02/17/2020 Z79.01 [facility] (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 of antic oagulants Tiago Jo M.D. 12/30/2019 D64.9 Anemia, unspecified Ramiro Jo M.D. 12/30/2019 I10 Essential (primary) hypertension Tiago Jo M.D. 12/25/2019 D64.9 Anemia, unspecified Ramiro Jo M.D. 11/26/2019 I10 Essential (primary) hypertension Tiago Jo M.D. 11/26/2019 E78.5 Hyperlipidemia, [facility] 11/26/2019 R73.01 Impaired fasting glucose Tiago May M.D. 11/26/2019 I48.91 Unspecified atrial fibrillation Tiago Jo M.D. 11/26/2019 J44.9 Chronic obstructive pulmonary di sease, unspecified Tiago Jo M.D. 11/26/2019 G20 Parkinson's disease Ramiro Jo M.D. 11/07/2019 I10 Essential (primary) hypertension Tiago Jo M.D. 11/07/2019 E78.5 Hyperlipidemia, unspecified [facility] Tiago huston M.D. Plan of Treatment Future Appointment(s):* 03/08/2020 1:30 pm - Tiago Jo M.D. at [place] [facility] Functional Status Description No Information Available Mental Status Description No Information Available Referrals Refer to Dr Reason for Referral Status Appt Date Dixie Moffett possible Parkinsons- eval and rx Sent 12/01/2019 [facility] [address] [address] [phone]
--- OUTSIDE RECORDS SUMMARY | 2020-05-19 14:29 | CCD | Continuity of Care Document ---
Author Author Ronal JO M.D. Organization Unknown Address [address] [address] Phone [phone] Care Team Providers Care Design Eng Name Role Phone Lorenzo Haddad D.O. AUTM [phone] Anna Marie Barnes AUTM [phone] Problems Active Problems Provider Date Impaired fasting [...] CPT Code Status Date Vaccine Lot # 20941 Given 02/07/2017 Influenza Virus Vaccine, Quadrivalent, Slit Virus, Im Use 3Y & Up [id number] 68397 Given 04/13/2015 Influenza Vaccin e (Fluzone) 3Yrs Of Age Or Older Medicare Plans [id number] 73309 Given 03/23/2014 Influenza Vaccin e (Fluzone) 3Yrs Of Age Or Older Medicare Plans [id number] 16143 Given 10/16/2013 Zoster (Shingles) Vaccine 67399 Given 02/05/2013 Influenza Vaccin e (Fluzone) 3Yrs Of Age Or Older Medicare Plans 28096 Given 02/05/2013 Influenza Virus Vac. Split Virus Individuals 3 Years And Above [id number] Vital Signs Date Vital Result Comment 02/17/2020 3:20pm BP Systolic 138 mmHg BP Diastolic 60 mmHg Body Temperature 97.3 F Heart Rate 58 /min Respiratory Rate 14 /min Height 72 inches 6'0" Weight 250.00 lb [place] Body Weight 178 lb BMI (Body Mass Index) 33.9 kg/m2 O2 % BldC Oximetry 97 % 12/30/2019 2:37pm BP Systolic 128 mmHg BP Diastolic 76 mmHg Body Temperature 98.3 F Heart Rate 68 /min Respiratory Rate 18 /min Height 72 inches 6'0" Weight 277.00 lb [place] Body Weight 178 lb BMI (Body Mass [...] eGFR 55 # Calc 2 eGFR Non-Afr. Yemeni 47 # Calc 3 Lipid Panel 03/01/2020 [facility] Chol 140 mg/dL 0 - 200 Trig 110 mg/dL 35 - 200 HDL 32 mg/dL Low 35 - 55 LDL_C 86 Calc 75 - 129 Cho/HDL Ratio 4.4 CALC Prothrombin Time/Inr 02/25/2020 [facility] ( [facility]) [phone] Prothrombin Time 27.4 seconds High 12.5-14.3 Inr [...] eGFR 38 # Calc 6 eGFR Non-Afr. Yemeni 33 # Calc 7 CBC 02/17/2020 [facility] [...] 9.0 - 13.0 PT [facility]-Therapy 43.0 International Normalized Ratio 3.6 Prothrombin Time/Inr 02/10/2020 [facility] ( Interface) [phone] Prothrombin Time 25.5 seconds High 12.5-14.3 Inr 2.26 Normal 8 Prothrombin Time/Inr 01/12/2020 [facility] ( [facility]) [phone] Prothrombin Time 34.0 seconds High 12.5-14.3 Inr [...] eGFR 55 # Calc 10 eGFR Non-Afr. Yemeni 47 # Calc 11 CBC 12/30/2019 [facility] [...] 9.0 - 13.0 Laboratory test finding 12/25/2019 [facility] Occ[facility] Blood NEG Neg Prothrombin Time/Inr 12/23/2019 [facility] ( [facility]) [phone] Prothrombin Time 22.9 seconds High 11.8-14.0 Inr 1.97 Normal 12 Prothrombin Time/Inr 11/10/2019 [facility] ( [facility]) [phone] Prothrombin Time 27.1 seconds High 11.8-14.0 Inr [...] eGFR 60 # Calc 15 eGFR Non-Afr. Yemeni 52 # Calc 16 Lipid Panel 11/07/2019 [facility] Chol 156 mg/dL 0 - 200 Trig 118 mg/dL 35 - 200 HDL 35 mg/dL 35 - 55 LDL_C 97 Calc 75 - 129 Cho/HDL Ratio 4.4 Calc Prothrombin Time/Inr 10/27/2019 [facility] ( [facility]) [phone] Prothrombin Time 30.3 seconds High 11.8-14.0 Inr 2.91 Normal 17 Prothrombin Time/Inr 10/20/2019 [facility]) [phone] Prothrombin Time 24.8 seconds High 11.8-14.0 Inr 2.26 Normal 18 Prothrombin Time/Inr 10/14/2019 [facility] ( [facility]) [phone] Prothrombin Time 48.7 seconds High 11.8-14.0 Inr 5.26 Critical high 19 Prothrombin Time/Inr 09/29/2019 [facility]) [phone] Prothrombin Time 41.0 seconds High 11.8-14.0 Inr 4.24 Normal 20 1 NORMAL RANGES Age WBC RBC HGB [...] HCT IS 5% LESS SOURCE FOR DATA: [employer] 1800 OPERATION MANUAL( AUTOMATED BLOOD COUNTS AND [...] HCT IS 5% LESS SOURCE FOR DATA: [employer] 1800 OPERATION MANUAL( AUTOMATED BLOOD COUNTS AND [...] Date Location Provider Dx Diagnosis Office Visit 03/08/2020 1:30p [place] [facility] Tiago Jo M. D. N17.9 Acute kidney failure, unspecified Office Visit 02/17/2020 2:45p [place] [facility] Tiago Jo M. D. 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 D. D64.9 Anemia, unspecified I10 Essential (primary) hyperten toshia Office Visit 11/26/2019 3:40p [place] [facility] Tiago Jo M. D. I10 Essential (primary) hypertension E78.5 Hyperlipidemia, unspecified R73.01 Impaired fasting glucose I48.91 Unspecified atrial fibrillat ion J44.9 Chronic obstructive pulmonar y disease, unspecified G20 Parkinson's disease Assessments Date Code Description Provider 03/08/2020 N17.9 Acute kidney failure, unspecifie d Tiago Jo M.D. 03/01/2020 I10 Essential (primary) hypertension Tiago Jo M.D. 03/01/2020 E78.5 Hyperlipidemia, unspecified [facility] Tiago huston M.D. 02/17/2020 R19.7 Diarrhea, unspecified Tiago Jo M.D. 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 12/30/2019 D64.9 Anemia, unspecified Ramiro Jo M.D. 12/30/2019 I10 Essential (primary) hypertension Tiago Jo M.D. 12/25/2019 D64.9 Anemia, unspecified Ramiro Jo M.D. 11/26/2019 I10 Essential (primary) hypertension Tiago Jo M.D. 11/26/2019 E78.5 Hyperlipidemia, unspecified [facility] Tiago huston M.D. 11/26/2019 R73.01 Impaired fasting glucose Tiago May M.D. 11/26/2019 I48.91 Unspecified atrial fibrillation Tiago Jo M.D. 11/26/2019 J44.9 Chronic obstructive pulmonary di sease, unspecified Tiago Jo M.D. 11/26/2019 G20 Parkinson's disease Ramiro oJ M.D. 11/07/2019 I10 Essential (primary) hypertension Tiago Jo M.D. 11/07/2019 E78.5 Hyperlipidemia, unspecified [facility] Tiago huston M.D. Plan of Treatment No Information Available Functional Status Description No Information Available Mental Status Description No Information Available Referrals Refer to Dr Reason for Referral Status Appt Dixie Cortes possible Parkinsons- eval and rx Sent 12/01/2019 [facility] [address] [place], [place] [address] [phone]
--- OUTSIDE RECORDS SUMMARY | 2020-05-19 14:29 | CCD | Continuity of Care Document ---
Author Author Ronal JO M.D. Organization Unknown Address [address] [address] Phone [phone] Care Team Providers Care Lapel Baster Name Role Phone Lorenzo Haddad D.O. AUTM [phone] Anna Marie Barnes AUTM [phone] Problems Active Problems Provider Date Impaired fasting [...] CPT Code Status Date Vaccine Lot # [id number] Given 02/07/2017 Influenza Virus Vaccine, Quadrivalent, Slit Virus, Im Use 3Y & Up [id number] 29027 Given 04/13/2015 Influenza Vaccin e (Fluzone) 3Yrs Of Age Or Older Medicare Plans [id number] 34983 Given 03/23/2014 Influenza Vaccin e (Fluzone) 3Yrs Of Age Or Older Medicare Plans [id number] 66279 Given 10/16/2013 Zoster (Shingles) Vaccine 12469 Given 02/05/2013 Influenza Vaccin e (Fluzone) 3Yrs Of Age Or Older Medicare Plans 80442 Given 02/05/2013 Influenza Virus Vac. Split Virus Individuals 3 Years And Above [id number] Vital Signs Date Vital Result Comment 04/07/2020 1:54pm BP Systolic 122 mmHg BP Diastolic 66 mmHg Body Temperature 97.9 F Heart Rate 64 /min Respiratory Rate 18 /min Height 72 inches 6'0" [place] Body Weight 178 lb O2 % BldC Oximetry 97 % 02/17/2020 3:20pm BP Systolic 138 mmHg BP Diastolic 60 mmHg Body Temperature 97.3 F Heart Rate 58 /min Respiratory Rate 14 /min Height 72 inches 6'0" Weight 250.00 lb [place] Body Weight 178 lb BMI (Body Mass [...] eGFR 60 # Calc 2 eGFR Non-Afr. [place] 52 # Calc 3 CBC 04/07/2020 [facility]PA/Inhouse [...] fL 9.0 - 13.0 Prothrombin Time/Inr 03/25/2020 [facility] ( [facility]) [phone] Prothrombin Time 35.0 seconds High 12.5-14.3 Inr [...] eGFR 55 # Calc 6 eGFR Non-Afr. [place] 47 # Calc 7 Lipid Panel 03/01/2020 [facility]Inhouse Chol 140 mg/dL 0 - 200 Trig 110 mg/dL 35 - 200 HDL 32 mg/dL Low 35 - 55 LDL_C 86 Calc 75 - 129 Cho/HDL Ratio 4.4 CALC Prothrombin Time/Inr 02/25/2020 [facility] ( [facility]) [phone] Prothrombin Time 27.4 seconds High 12.5-14.3 Inr [...] eGFR 38 # Calc 10 eGFR Non-Afr. [place] 33 # Calc 11 CBC 02/17/2020 [facility]PA/Inhouse [...] 9.0 - 13.0 PT With Inr-Therapy 02/17/[address] [facility] sue Prothrombin Time-Therapy 43.0 International Normalized Ratio 3.6 Prothrombin Time/Inr 02/10/2020 [facility]) [phone] Prothrombin Time 25.5 seconds High 12.5-14.3 Inr 2.26 Normal 12 Prothrombin Time/Inr 01/12/2020 [facility]) [phone] Prothrombin Time 34.0 seconds High 12.5-14.3 Inr [...] eGFR 55 # Calc 14 eGFR Non-Afr. [place] 47 # Calc 15 Laboratory test finding 12/25/2019 [facility] Occult Blood NEG Neg Prothrombin Time/Inr 12/23/2019 [facility]) [phone] Prothrombin Time 22.9 seconds High 11.8-14.0 Inr 1.97 Normal 16 Prothrombin Time/Inr 11/10/2019 [facility] ( [facility]) [phone] Prothrombin Time 27.1 seconds High 11.8-14.0 Inr [...] eGFR 60 # Calc 19 eGFR Non-Afr. [place] 52 # Calc 20 Lipid Panel 11/07/2019 [facility]house Chol 156 mg/dL 0 - 200 Trig 118 mg/dL 35 - 200 HDL 35 mg/dL 35 - 55 LDL_C 97 Calc 75 - 129 Cho/HDL Ratio 4.4 Calc Prothrombin Time/Inr 10/27/2019 [facility] ( [facility]) [phone] Prothrombin Time 30.3 seconds High 11.8-14.0 Inr 2.91 Normal 21 Prothrombin Time/Inr 10/20/2019 [facility] ( [facility]) [phone] Prothrombin Time 24.8 seconds High 11.8-14.0 Inr 2.26 Normal 22 Prothrombin Time/Inr 10/14/2019 [facility] ( [facility]) [phone] Prothrombin Time 48.7 seconds High 11.8-14.0 Inr [...] HCT IS 5% LESS SOURCE FOR DATA: [employer] 1800 OPERATION MANUAL( AUTOMATED BLOOD COUNTS AND [...] HCT IS 5% LESS SOURCE FOR DATA: [employer] 1800 OPERATION MANUAL( AUTOMATED BLOOD COUNTS AND [...] HCT IS 5% LESS SOURCE FOR DATA: [employer] 1800 OPERATION MANUAL( AUTOMATED BLOOD COUNTS AND [...] Provider Dx Diagnosis Office Visit 04/07/2020 2:00p [place] [facility] Tiago Jo M. D. N17.9 Acute kidney failure, unspecified Office Visit 02/17/2020 2:45p [place] [facility] Tiago Jo M. D. 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 D. D64.9 Anemia, unspecified I10 Essential (primary) hyperten toshia Office Visit 11/26/2019 3:40p [place] [facility] Tiago Jo M. D. I10 Essential [...] Tiago Jo M.D. 03/01/2020 E78.5 Hyperlipidemia, [facility] 02/17/2020 R19.7 Diarrhea, unspecified Tiago Jo M.D. 02/17/2020 Z79.01 retirement (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 of antic oagulants Tiago Jo M.D. 12/30/2019 D64.9 Anemia, unspecified Ramiro Jo M.D. 12/30/2019 I10 Essential (primary) hypertension Tiago Jo M.D. 12/25/2019 D64.9 Anemia, unspecified Ramiro Jo M.D. 11/26/2019 I10 Essential (primary) hypertension Tiago Jo M.D. 11/26/2019 E78.5 Hyperlipidemia, unspecified [facility] Tiago huston M.D. 11/26/2019 R73.01 Impaired fasting glucose Tiago May M.D. 11/26/2019 I48.91 Unspecified atrial fibrillation Tiago Jo M.D. 11/26/2019 J44.9 Chronic obstructive pulmonary di sease, unspecified Tiago Jo M.D. 11/26/2019 G20 Parkinson's disease Ramiro Jo M.D. 11/07/2019 I10 Essential (primary) hypertension Tiago Jo M.D. 11/07/2019 E78.5 Hyperlipidemia, unspecified [facility] Tiago huston M.D. Plan of Treatment Future Appointment(s):* 05/31/2020 9:00 am - Laboratory [place] Schedule at [facility] * 06/09/2020 1:30 pm - Tiago Jo M.D. at [facility] Functional Status Description No Information Available Mental Status Description No Information Available Referrals Refer to Dr Reason for Referral Status Appt Date Dixie Moffett possible Parkinsons- eval and rx Sent 12/01/2019 [facility] [address] [address] [phone]
--- OUTSIDE RECORDS SUMMARY | 2020-05-19 14:30 | CCD | Continuity of Care Document ---
Author Author Eduarda Tamir Ronal Webster Organization Unknown Address 3 [facility] [address] [place] [address] Phone [phone] Care Team Providers Care Bolt Cutter Name Role Phone Lorenzo Haddad D.O. AUTM [phone] Anna Marie Barnes AUTM [phone] Problems Active Problems Provider Date Impaired fasting [...] CPT Code Status Date Vaccine Lot # 09242 Given 02/07/2017 Influenza Virus Vaccine, Quadrivalent, Slit Virus, Im Use 3Y & Up [id number] 27129 Given 04/13/2015 Influenza Vaccin e (Fluzone) 3Yrs Of Age Or Older Medicare Plans [id number] 13973 Given 03/23/2014 Influenza Vaccin e (Fluzone) 3Yrs Of Age Or Older Medicare Plans [id number] 88595 Given 10/16/2013 Zoster (Shingles) Vaccine 49368 Given 02/05/2013 Influenza Vaccin e (Fluzone) 3Yrs Of Age Or Older Medicare Plans 52169 Given 02/05/2013 Influenza Virus Vac. Split Virus Individuals 3 Years And Above [id number] Vital Signs Date Vital Result Comment 02/17/2020 3:20pm BP Systolic 138 mmHg BP Diastolic 60 mmHg Body Temperature 97.3 F Heart Rate 58 /min Respiratory Rate 14 /min Height 72 inches 6'0" Weight 250.00 lb [place] Body Weight 178 lb BMI (Body Mass Index) 33.9 kg/m2 O2 % BldC Oximetry 97 % 12/30/2019 2:37pm BP Systolic 128 mmHg BP Diastolic 76 mmHg Body Temperature 98.3 F Heart Rate 68 /min Respiratory Rate 18 /min Height 72 inches 6'0" Weight 277.00 lb [place] Body Weight 178 lb BMI (Body Mass Index) 37.6 kg/m2 O2 % BldC Oximetry 94 % Results Test Acquired Date Facility Test Result H/L Range Note Prothrombin Time/Inr 02/25/2020 [facility] ( [facility]) [phone] Prothrombin Time 27.4 seconds High 12.5-14.3 Inr 2.48 Normal 1 CMP 02/17/2020 [facility]house Glu 106 mg/dL 70 - 110 2 BUN 81 mg/dL High 8 - 23 [...] Gap 20 mmol/L eGFR 38 # Calc 3 eGFR Non-Afr. Cymro 33 # Calc 4 CBC 02/17/2020 [facility]house WBC 11.3 10E3/uL High [...] 9.0 - 13.0 PT With [facility] Pro[facility]rombin Time-Therapy 43.0 International Normalized Ratio 3.6 Prothrombin Time/Inr 02/10/2020 [facility] ( [facility]) [phone] Prothrombin Time 25.5 seconds High 12.5-14.3 Inr 2.26 Normal 5 Prothrombin Time/Inr 01/12/2020 [facility] ( [facility]) [phone] Prothrombin Time 34.0 seconds High 12.5-14.3 Inr 3.26 Normal 6 Basic Metabolic Panel 12/30/2019 [facility]Inhouse Glu 96 [...] Gap 15 mmol/L eGFR 55 # Calc 7 eGFR Non-Afr. Cymro 47 # Calc 8 CBC 12/30/2019 [facility] WBC 6.7 10E3/uL 4.1 [...] 9.0 - 13.0 Laboratory test finding 12/25/2019 [facility] Occult Blood NEG Neg Prothrombin Time/Inr 12/23/2019 [facility] ( [facility]) [phone] Prothrombin Time 22.9 seconds High 11.8-14.0 Inr 1.97 Normal 9 Prothrombin Time/Inr 11/10/2019 [facility] ( [facility]) [phone] Prothrombin Time 27.1 seconds High 11.8-14.0 Inr 2.53 Normal 10 CMP 11/07/2019 [facility] Glu 103 mg/dL 70 - 110 11 BUN 28 mg/dL High 8 - 23 [...] Gap 13 mmol/L eGFR 60 # Calc 12 eGFR Non-Afr. [place]ym[place] 52 # Calc 13 Lipid Panel 11/07/2019 [facility]house Chol 156 mg/dL 0 - 200 Trig 118 mg/dL 35 - 200 HDL 35 mg/dL 35 - 55 LDL_C 97 Calc 75 - 129 Cho/HDL Ratio 4.4 Calc CBC 11/07/2019 [facility]house WBC 6.4 10E3/uL 4.1 - 10.9 RBC 3.35 10E6/uL Low 4.20 - 6.30 [...] 1.8 MPV 10.5 fL 9.0 - 13.0 Prothrombin Time/Inr 10/27/2019 [facility]) [phone] Prothrombin Time 30.3 seconds High 11.8-14.0 Inr 2.91 Normal 14 Prothrombin Time/Inr 10/20/2019 [facility]) [phone] Prothrombin Time 24.8 seconds High 11.8-14.0 Inr 2.26 Normal 15 Prothrombin Time/Inr 10/14/2019 [facility] ( [facility]) [phone] Prothrombin Time 48.7 seconds High 11.8-14.0 Inr 5.26 Critical high 16 Prothrombin Time/Inr 09/29/2019 [facility]) [phone] Prothrombin Time 41.0 seconds High 11.8-14.0 Inr 4.24 Normal 17 Prothrombin Time/Inr 09/03/2019 [facility]) [phone] Prothrombin Time 29.0 seconds High 11.8-14.0 Inr 2.75 Normal 18 1 THERAPUTIC HUMAN INR VALUES INDICATIONS NORMAL [...] HCT IS 5% LESS SOURCE FOR DATA: [employer] 1800 OPERATION MANUAL( AUTOMATED BLOOD COUNTS AND [...] RISK) 2.5-3.5 RECURRENT MYOCARDIAL INFARCTION 2.5-3.5 7 CKD-EPI 8 CKD-EPI 9 THERAPUTIC HUMAN [...] RISK) 2.5-3.5 RECURRENT MYOCARDIAL INFARCTION 2.5-3.5 11 NORMAL RANGES Age WBC RBC HGB HCT [...] HCT IS 5% LESS SOURCE FOR DATA: [employer] 1800 OPERATION MANUAL( AUTOMATED BLOOD COUNTS AND [...] ADOLESCENTS REPRESENTS INDIVIDUALA AGED 2-19 YEARS EXCLUSIVE. 12 CKD-EPI 13 CKD-EPI 14 THERAPUTIC HUMAN INR VALUES INDICATIONS NORMAL RANGES PROPHYLAXIS/TREATMENT OF: VENOUS THROMBOSIS 2.0-3.0 PULMONARY EMBOLISM 2.0-3.0 PREVENTION OF SYSTEMIC EMBOLISM FROM: TISSUE HEART VALVES 2.0-3.0 ACUTE MYOCARDIAL INFARCTION 2.0-3.0 VALVULAR HEART DISEASE 2.0-3.0 ATRIAL FIBRILLATION 2.0-3.0 MECHANICAL VALVES(HIGH RISK) 2.5-3.5 RECURRENT MYOCARDIAL INFARCTION 2.5-3.5 15 THERAPUTIC HUMAN INR VALUES INDICATIONS NORMAL RANGES PROPHYLAXIS/TREATMENT OF: VENOUS THROMBOSIS 2.0-3.0 PULMONARY EMBOLISM 2.0-3.0 PREVENTION OF SYSTEMIC EMBOLISM FROM: TISSUE HEART VALVES 2.0-3.0 ACUTE MYOCARDIAL INFARCTION 2.0-3.0 VALVULAR HEART DISEASE 2.0-3.0 ATRIAL FIBRILLATION 2.0-3.0 MECHANICAL VALVES(HIGH RISK) 2.5-3.5 RECURRENT MYOCARDIAL INFARCTION 2.5-3.5 16 THERAPUTIC HUMAN INR VALUES INDICATIONS NORMAL [...] Provider Dx Diagnosis Office Visit 02/17/2020 2:45p [place] [facility] Tiago Jo M. D. R19.7 Diarrhea, unspecified Z79.01 half-way (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 of a nticoagulants Office Visit 12/30/2019 2:30p [place] [facility] Tiago Jo M. D. D64.9 Anemia, unspecified I10 Essential (primary) hyperten toshia Office Visit 11/26/2019 3:40p [place] [facility] Tiago Jo M. D. I10 Essential (primary) hypertension E78.5 Hyperlipidemia, unspecified R73.01 Impaired fasting glucose I48.91 Unspecified atrial fibrillat ion J44.9 Chronic obstructive pulmonar y disease, unspecified G20 Parkinson's disease Assessments Date Code Description Provider 02/17/2020 R19.7 Diarrhea, unspecified Tiago Jo M.D. 02/17/2020 Z79.01 half-way (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 of antic oagulants Tiago Jo M.D. 12/30/2019 D64.9 Anemia, unspecified Ramiro Jo M.D. 12/30/2019 I10 Essential (primary) hypertension Tiago Jo M.D. 12/25/2019 D64.9 Anemia, unspecified Ramiro Jo M.D. 11/26/2019 I10 Essential (primary) hypertension Tiago Jo M.D. 11/26/2019 E78.5 [facility], [facility] 11/26/2019 R73.01 Impaired fasting glucose Tiago May M.D. 11/26/2019 I48.91 Unspecified atrial fibrillation Tiago Jo M.D. 11/26/2019 J44.9 Chronic obstructive pulmonary di sease, unspecified Tiago Jo M.D. 11/26/2019 G20 Parkinson's disease Ramiro Jo M.D. 11/07/2019 I10 Essential (primary) hypertension Tiago Jo M.D. 11/07/2019 E78.5 [facility], [facility] Plan of Treatment Future Appointment(s):* 03/08/2020 1:30 pm - Tiago Jo M.D. at [facility] Functional Status Description No Information Available Mental Status Description No Information Available Referrals Refer to Dr Reason for Referral Status Appt Date Dixie Moffett possible Parkinsons- eval and rx Sent 12/01/2019 [facility] [address] [address] [phone]
--- OUTSIDE RECORDS SUMMARY | 2020-05-19 14:30 | CCD | Continuity of Care Document ---
Author Author Ronal DOAN PA-C Organization Unknown Address [address] [place] [address], [facility] [place] [address] Phone [phone] Care Team Providers Care Social Sciences Research Scientist Name Role Phone Tiago Jo MD AUTM [phone] Eboni Doan-C AUTM [phone] Shar Turner MD AUTM [phone] Lorenzo Haddad DO AUTM [phone] Gay De León MD AUTM [phone] Rory Ritchie MD AUTM [phone] Silvana Rees MD AUTM [phone] Sharri Barnes AUTM [phone] Problems Active Problems Provider Date Chronic diastolic heart failure Eboni Doan PA-C Onset: 03/29/2011 Benign hypertensive heart disease with congestive card iac failure Eboni Doan PA-C Onset: 03/29/2011 Atrial fibrillation Eboni Doan PA-C Onset: 03/29/2011 Electrocardiogram abnormal Eboni Doan PA-C Onset: 03/29 Aortic valve disorder Eboni Doan PA-C Onset: 03/29/2011 Heart valve replacement Eboni Doan PA-C Onset: 03/29/20 11 Pure hypercholesterolemia Eboin Doan PA-C Onset: 2010 Obesity Eboni Doan, [...] Ndiaye MD 08/23/2017 Calcium 500+D High Potency [id number] Tablets 1 by mouth daily Unknown 05/01/2017 [...] Result H/L Range Note Prothrombin Time/Inr 02/25/2020 [facility] [phone] Prothrombin Time 27.4 seconds High 12.5-14.3 Inr 2.48 Normal 1 Prothrombin Time/Inr 02/10/2020 [facility] enter [phone] Prothrombin Time 25.5 seconds High 12.5-14.3 Inr 2.26 Normal 2 Prothrombin Time/Inr 01/12/2020 [facility] enter [phone] Prothrombin Time 34.0 seconds High 12.5-14.3 Inr 3.26 Normal 3 BMP 12/30/2019 [facility] (315)- - Calcium [...] Hematocrit 34.8 Low 37.0-51.0 Prothrombin Time/Inr 12/23/2019 [facility] enter [phone] Prothrombin Time 22.9 seconds High 11.8-14.0 Inr 1.97 Normal 4 PT/Inr 12/09/2019 [facility] - not interfaced (315)- - P T 24.2 I N R 2.12 Prothrombin Time/Inr 12/09/2019 [facility] enter [phone] Prothrombin Time 24.2 seconds High 12.5-14.3 Inr 2.12 Normal 5 Prothrombin Time/Inr 11/10/2019 [facility] enter [phone] Prothrombin Time 27.1 seconds High 11.8-14.0 Inr 2.53 Normal 6 Lab Results 11/07/2019 [facility] CCD Impor t WBC 6.4 10E3/uL 4.1-10.9 7 RBC 3.35 10E6/uL Low 4.20-6.30 HGB 11.2 [...] Anion Gap 13 mmol/L eGFR 60 # 8 eGFR Non-Afr. [place] Islander 52 # 9 Chol 156 mg/dL 0-200 Trig 118 mg/dL 35-200 HDL 35 mg/dL 35-55 LDL_C 97 Calc 75-129 Cho/HDL Ratio 4.4 Calc Prothrombin Time/Inr 10/27/2019 [facility] enter [phone] Prothrombin Time 30.3 seconds High 11.8-14.0 Inr 2.91 Normal 10 Prothrombin Time/Inr 10/20/2019 [facility] enter [phone] Prothrombin Time 24.8 seconds High 11.8-14.0 Inr 2.26 Normal 11 Prothrombin Time/Inr 10/14/2019 [facility] enter [phone] Prothrombin Time 48.7 seconds High 11.8-14.0 Inr 5.26 Critical high 12 Prothrombin Time/Inr 09/29/2019 [facility] enter [phone] Prothrombin Time 41.0 seconds High 11.8-14.0 Inr 4.24 Normal 13 Renal Profile 09/04/2019 [facility] (315)- - Glucose 108 High 70-100 Blood Urea Nitrogen 26.1 High 5-21 Creatinine 1.21 0.6-1.5 GFR (Calculated) 58 Sodium 139.3 136-146 Potassium 3.76 3.5-5.3 Chloride 104.6 98-110 Carbon Dioxide 32.8 High 20-32 Calcium 8.15 Low 8.4-10.4 Phosphorus 2.83 Albumin 3.9 3.5-4.7 CBC without Differential 09/04/2019 [facility] (315)- - White Blood Count 8.1 4.3-10.9 Red Blood Count 3.93 Low 4.70-6.20 Platelets 256 130-400 Hemoglobin 12.8 Low 13.0-17.0 Hematocrit 38.3 Low 39.0-50.0 Laboratory test finding 09/04/2019 [facility] (315)- - Magnesium Level 2.17 Prothrombin Time/Inr 09/03/2019 [facility] enter [phone] Prothrombin Time 29.0 seconds High 11.8-14.0 Inr 2.75 Normal 14 1 THERAPUTIC HUMAN INR VALUES INDICATIONS [...] RISK) 2.5-3.5 RECURRENT MYOCARDIAL INFARCTION 2.5-3.5 7 NORMAL RANGES Age WBC RBC HGB HCT [...] HCT IS 5% LESS SOURCE FOR DATA: [employer] 1800 OPERATION MANUAL( AUTOMATED BLOOD COUNTS AND [...] ADOLESCENTS REPRESENTS INDIVIDUALA AGED 2-19 YEARS EXCLUSIVE. 8 CKD-EPI 9 CKD-EPI 10 THERAPUTIC HUMAN INR VALUES INDICATIONS NORMAL RANGES PROPHYLAXIS/TREATMENT OF: VENOUS THROMBOSIS 2.0-3.0 PULMONARY EMBOLISM 2.0-3.0 PREVENTION OF SYSTEMIC EMBOLISM FROM: TISSUE HEART VALVES 2.0-3.0 ACUTE MYOCARDIAL INFARCTION 2.0-3.0 VALVULAR HEART DISEASE 2.0-3.0 ATRIAL FIBRILLATION 2.0-3.0 MECHANICAL VALVES(HIGH RISK) 2.5-3.5 RECURRENT MYOCARDIAL INFARCTION 2.5-3.5 11 THERAPUTIC HUMAN INR VALUES INDICATIONS NORMAL RANGES PROPHYLAXIS/TREATMENT OF: VENOUS THROMBOSIS 2.0-3.0 PULMONARY EMBOLISM 2.0-3.0 PREVENTION OF SYSTEMIC EMBOLISM FROM: TISSUE HEART VALVES 2.0-3.0 ACUTE MYOCARDIAL INFARCTION 2.0-3.0 VALVULAR HEART DISEASE 2.0-3.0 ATRIAL FIBRILLATION 2.0-3.0 MECHANICAL VALVES(HIGH RISK) 2.5-3.5 RECURRENT MYOCARDIAL INFARCTION 2.5-3.5 12 THERAPUTIC HUMAN INR VALUES INDICATIONS NORMAL [...] INFARCTION 2.5-3.5 Procedures Date Code Description Status 02/10/2020 01409 Anticoagulant MGMT F or Patient Taking Warfarin, Inc Review & Intr Completed 02/05/2020 85683 ECG 12-Lead Completed 01/12/2020 48651 Anticoagulant MGMT F or Patient Taking Warfarin, Inc Review & Intr Completed 12/23/2019 32829 Anticoagulant MGMT F or Patient Taking Warfarin, Inc Review & Intr Completed 12/12/2019 29770 Anticoagulant MGMT F or Patient Taking Warfarin, Inc Review & Intr Completed 11/10/2019 13306 Anticoagulant MGMT F or Patient Taking Warfarin, Inc Review & Intr Completed 10/21/2019 10813 Anticoagulant MGMT F or Patient Taking Warfarin, Inc Review & Intr Completed 10/14/2019 55053 Anticoagulant MGMT F or Patient Taking Warfarin, Inc Review & Intr Completed 09/29/2019 08277 Anticoagulant MGMT F or Patient Taking Warfarin, Inc Review & Intr Completed 09/03/2019 07288 Anticoagulant MGMT F or Patient Taking Warfarin, Inc Review & Intr Completed Medical Devices Description No Information Available Encounters Type Date Location Provider Dx Diagnosis Office Visit 02/05/2020 1:00p Main Office Eboni Doan PA-C I25.1 0 Athscl heart disease of [place] coronary artery w/o ang pctrs Z95.5 Presence [...] surve illance Assessments Date Code Description Provider 02/10/2020 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 Eboni Reyna Symenow, PA-C 02/05/2020 I25.10 Atherosclerotic heart disease of [place] coronary artery with Eboni Doan, PA-C 02/05/2020 Z95.5 Presence of coronary angioplasty implant and graft Eboni Beckw, PA-C 02/05/2020 I50.32 Chronic diastolic (congestive) h eart failure Eboni Vivasenow, PA-C 02/05/2020 I11.0 Hypertensive heart disease with heart failure Eboni Reyna Symenow, PA-C 02/05/2020 I48.21 Permanent atrial fibrillation Ka aysha Reyna Symenow, PA-C 02/05/2020 R94.31 Abnormal electrocardiogram [ECG] [EKG] Eboni E Symenow, PA-C 02/05/2020 I35.0 Nonrheumatic aortic (valve) sten osis Eboni Reyna Symenow, PA-C 02/05/2020 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 Eboni Reyna Symenow, PA-C 02/05/2020 I34.0 Nonrheumatic mitral (valve) insu fficiency Eboni Reyna Symenow, PA-C 02/05/2020 E78.00 Pure hypercholesterolemia, unspe cified Eboni Reyna Symenow, PA-C 02/05/2020 I27.81 Cor pulmonale (chronic) Eboni Wang ymenow, PA-C 02/05/2020 G47.33 Obstructive sleep apnea (adult) (pediatric) Eboni Reyna Symenow, PA-C 02/05/2020 Z71.3 Dietary counseling and surveilla nce Eboni Reyna Symenow, PA-C 01/12/2020 I48.21 Permanent atrial fibrillation Ponce Gilliland Maverick, PA-C 01/12/2020 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.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 Eboni Doan PA-C 12/23/2019 Z79.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 FREDDY Connors 12/12/2019 I48.21 Permanent atrial fibrillation Ponce Gilliland Maverick PA-C 12/12/2019 Z79.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 Eboni Doan, PA-C 11/10/2019 I48.21 Permanent atrial fibrillation Ka aysha Reyna Maverick, PA-C 11/10/2019 Z79.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 Eboni Doan PA-C 10/21/2019 I48.21 Permanent atrial fibrillation Ka aysha Reyna Maverick, PA-C 10/21/2019 Z79.01 skilled nursing (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 of antic oagulants Eboni Doan PA-C 10/14/2019 Z79.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 FREDDY Connors 09/29/2019 Z79.01 skilled nursing (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 of antic oagulants FREDDY Gaitan-C 09/03/2019 I48.21 Permanent atrial fibrillation Ponce Gilliland Maverick PA-C 09/03/2019 Z79.01 skilled nursing (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 of antic oagulants Eboni Doan PA-C Plan of Treatment Future Appointment(s):* 08/10/2020 1:00 pm - Eboni Doan PA-C at Main Office 02/05/2020 - Eboni Doan PA-C* I25.10 Atherosclerotic heart disease of [place] coronary artery with * Z95.5 Presence of [...]
--- OUTSIDE RECORDS SUMMARY | 2020-05-19 14:30 | CCD | Continuity of Care Document ---
Author Author Eduarda Tamir Ronal Webster Organization Unknown Address 3 [facility] 3 [place] [address] Phone [phone] Care Team Providers Care Director Of Services Name Role Phone Lorenzo Haddad D.O. AUTM [phone] Anna Marie Barnes AUTM [phone] Problems Active Problems Provider Date Impaired fasting [...] CPT Code Status Date Vaccine Lot # 54810 Given 02/07/2017 Influenza Virus Vaccine, Quadrivalent, Slit Virus, Im Use 3Y & Up [id number] 79667 Given 04/13/2015 Influenza Vaccin e (Fluzone) 3Yrs Of Age Or Older Medicare Plans [id number] 01589 Given 03/23/2014 Influenza Vaccin e (Fluzone) 3Yrs Of Age Or Older Medicare Plans [id number] 57354 Given 10/16/2013 Zoster (Shingles) Vaccine 94534 Given 02/05/2013 Influenza Vaccin e (Fluzone) 3Yrs Of Age Or Older Medicare Plans 50919 Given 02/05/2013 Influenza Virus Vac. Split Virus Individuals 3 Years And Above [id number] Vital Signs Date Vital Result Comment 02/17/2020 3:20pm BP Systolic 138 mmHg BP Diastolic 60 mmHg Body Temperature 97.3 F Heart Rate 58 /min Respiratory Rate 14 /min Height 72 inches 6'0" Weight 250.00 lb [place] Body Weight 178 lb BMI (Body Mass Index) 33.9 kg/m2 O2 % BldC Oximetry 97 % 12/30/2019 2:37pm BP Systolic 128 mmHg BP Diastolic 76 mmHg Body Temperature 98.3 F Heart Rate 68 /min Respiratory Rate 18 /min Height 72 inches 6'0" Weight 277.00 lb [place] Body Weight 178 lb BMI (Body Mass [...] 1.8 MPV 10.9 fL 9.0 - 13.0 Prothrombin Time/Inr 02/25/2020 [facility] ( [facility]) [phone] Prothrombin Time 27.4 seconds High 12.5-14.3 Inr 2.48 Normal 2 CMP 02/17/2020 [facility] Glu 106 mg/dL 70 - 110 3 BUN 81 mg/dL High 8 - 23 [...] Gap 20 mmol/L eGFR 38 # Calc 4 eGFR Non-Afr. Brazilian 33 # Calc 5 CBC 02/17/2020 [facility] WBC 11.3 10E3/uL High [...] 9.0 - 13.0 PT With [facility]-The[facility] [facility]bin Time-Therapy 43.0 International Normalized Ratio 3.6 Prothrombin Time/Inr 02/10/2020 [facility] ( [facility]) [phone] Prothrombin Time 25.5 seconds High 12.5-14.3 Inr 2.26 Normal 6 Prothrombin Time/Inr 01/12/2020 [facility] ( [facility]) [phone] Prothrombin Time 34.0 seconds High 12.5-14.3 Inr 3.26 Normal 7 Basic Metabolic Panel 12/30/2019 [facility] Glu 96 [...] Gap 15 mmol/L eGFR 55 # Calc 8 eGFR Non-Afr. Brazilian 47 # Calc 9 CBC 12/30/2019 [facility] WBC 6.7 10E3/uL 4.1 [...] 9.0 - 13.0 Laboratory test finding 12/25/2019 [facility] Occult Blood NEG Neg Prothrombin Time/Inr 12/23/2019 [facility] ( [facility]) [phone] Prothrombin Time 22.9 seconds High 11.8-14.0 Inr 1.97 Normal 10 Prothrombin Time/Inr 11/10/2019 [facility] ( [facility]) [phone] Prothrombin Time 27.1 seconds High 11.8-14.0 Inr 2.53 Normal 11 CBC 11/07/2019 [facility] WBC 6.4 10E3/uL 4.1 - 10.9 12 RBC 3.35 10E6/uL Low 4.20 - 6.30 [...] Gap 13 mmol/L eGFR 60 # Calc 13 eGFR Non-Afr. Brazilian 52 # Calc 14 Lipid Panel 11/07/2019 [facility] Chol 156 mg/dL 0 - 200 Trig 118 mg/dL 35 - 200 HDL 35 mg/dL 35 - 55 LDL_C 97 Calc 75 - 129 Cho/HDL Ratio 4.4 Calc Prothrombin Time/Inr 10/27/2019 [facility] ( [facility]) [phone] Prothrombin Time 30.3 seconds High 11.8-14.0 Inr 2.91 Normal 15 Prothrombin Time/Inr 10/20/2019 [facility] ( [facility]) [phone] Prothrombin Time 24.8 seconds High 11.8-14.0 Inr 2.26 Normal 16 Prothrombin Time/Inr 10/14/2019 [facility] ( [facility]) [phone] Prothrombin Time 48.7 seconds High 11.8-14.0 Inr 5.26 Critical high 17 Prothrombin Time/Inr 09/29/2019 [facility] ( [facility]) [phone] Prothrombin Time 41.0 seconds High 11.8-14.0 Inr 4.24 Normal 18 Prothrombin Time/Inr 09/03/2019 [facility] ( [facility]) [phone] Prothrombin Time 29.0 seconds High 11.8-14.0 Inr 2.75 Normal 19 1 NORMAL RANGES Age WBC RBC HGB [...] REPRESENTS INDIVIDUALA AGED 2-19 YEARS EXCLUSIVE. 2 THERAPUTIC HUMAN INR VALUES INDICATIONS NORMAL RANGES PROPHYLAXIS/TREATMENT OF: VENOUS THROMBOSIS 2.0-3.0 PULMONARY EMBOLISM 2.0-3.0 PREVENTION OF SYSTEMIC EMBOLISM FROM: TISSUE HEART VALVES 2.0-3.0 ACUTE MYOCARDIAL INFARCTION 2.0-3.0 VALVULAR HEART DISEASE 2.0-3.0 ATRIAL FIBRILLATION 2.0-3.0 MECHANICAL VALVES(HIGH RISK) 2.5-3.5 RECURRENT MYOCARDIAL INFARCTION 2.5-3.5 3 NORMAL RANGES Age WBC RBC HGB HCT [...] HCT IS 5% LESS SOURCE FOR DATA: [employer] 1800 OPERATION MANUAL( AUTOMATED BLOOD COUNTS AND [...] Normal 80 and above >32 mL/min Normal 4 CKD-EPI 5 CKD-EPI 6 THERAPUTIC HUMAN INR VALUES INDICATIONS NORMAL [...] RISK) 2.5-3.5 RECURRENT MYOCARDIAL INFARCTION 2.5-3.5 8 CKD-EPI 9 CKD-EPI 10 THERAPUTIC HUMAN [...] RISK) 2.5-3.5 RECURRENT MYOCARDIAL INFARCTION 2.5-3.5 12 NORMAL RANGES Age WBC RBC HGB HCT [...] HCT IS 5% LESS SOURCE FOR DATA: [employer] 1800 OPERATION MANUAL( AUTOMATED BLOOD COUNTS AND [...] ADOLESCENTS REPRESENTS INDIVIDUALA AGED 2-19 YEARS EXCLUSIVE. 13 CKD-EPI 14 CKD-EPI 15 THERAPUTIC HUMAN INR VALUES INDICATIONS NORMAL [...] Provider Dx Diagnosis Office Visit 02/17/2020 2:45p [place] Tiago Jo M. D. R19.7 Diarrhea, unspecified Z79.01 senior living (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 of a nticoagulants Office Visit 12/30/2019 2:30p [facility] Tiago Jo M. D. D64.9 Anemia, unspecified I10 Essential (primary) hyperten toshia Office Visit 11/26/2019 3:40p [facility] Tiago Jo M. D. I10 Essential (primary) hypertension E78.5 Hyperlipidemia, unspecified R73.01 Impaired fasting glucose I48.91 Unspecified atrial fibrillat ion J44.9 Chronic obstructive pulmonar y disease, unspecified G20 Parkinson's disease Assessments Date Code Description Provider 02/17/2020 R19.7 Diarrhea, unspecified Tiago Jo M.D. 02/17/2020 Z79.01 senior living (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 of antic oagulants Tiago Jo M.D. 12/30/2019 D64.9 Anemia, unspecified Ramiro Jo M.D. 12/30/2019 I10 Essential (primary) hypertension Tiago Jo M.D. 12/25/2019 D64.9 Anemia, unspecified Ramiro Jo M.D. 11/26/2019 I10 Essential (primary) hypertension Tiago Jo M.D. 11/26/2019 E78.5 Hyperlipidemia, unspecified [facility] Tiago huston M.D. 11/26/2019 R73.01 Impaired fasting glucose Tiago May M.D. 11/26/2019 I48.91 Unspecified atrial fibrillation Tiago Jo M.D. 11/26/2019 J44.9 Chronic obstructive pulmonary di sease, unspecified Tiago Jo M.D. 11/26/2019 G20 Parkinson's disease Ramiro Jo M.D. 11/07/2019 I10 Essential (primary) hypertension Tiago Jo M.D. 11/07/2019 E78.5 Hyperlipidemia, unspecified [facility] Tiago huston M.D. Plan of Treatment Future Appointment(s):* 03/08/2020 1:30 pm - Tiago Jo M.D. at [facility] Functional Status Description No Information Available Mental Status Description No Information Available Referrals Refer to Reason for Referral Status Appt Date Dixie Moffett possible Parkinsons- eval and rx Sent 12/01/2019 [facility] [address] [place] [address] [phone]
--- OUTSIDE RECORDS SUMMARY | 2020-05-19 14:30 | CCD | Continuity of Care Document ---
Author Author Eduarda Tamir Ronal Webster Organization Unknown Address 3 [facility] 3 [place] [address] Phone [phone] Care Team Providers Care Retail Sales Associate Bilingual Name Role Phone Lorenzo Haddad D.O. AUTM [phone] Anna Marie Barnes AUTM [phone] Problems Active Problems Provider Date Impaired fasting glycemia Tiago Jo M.D. Onset: Allergic rhinitis Tiago Jo M.D. Onset: 3 Chronic obstructive lung disease Tiago oJ M.D. Ons et: 02/05/2013 Atrial fibrillation Tiago [...] CPT Code Status Date Vaccine Lot # 20191 Given 02/07/2017 Influenza Virus Vaccine, Quadrivalent, Slit Virus, Im Use 3Y & Up [id number] 17280 Given 04/13/2015 Influenza Vaccin e (Fluzone) 3Yrs Of Age Or Older Medicare Plans [id number] 13505 Given 03/23/2014 Influenza Vaccin e (Fluzone) 3Yrs Of Age Or Older Medicare Plans [id number] 16630 Given 10/16/2013 Zoster (Shingles) Vaccine 02208 Given 02/05/2013 Influenza Vaccin e (Fluzone) 3Yrs Of Age Or Older Medicare Plans 26205 Given 02/05/2013 Influenza Virus Vac. Split Virus Individuals 3 Years And Above [id number] Vital Signs Date Vital Result Comment 02/17/2020 3:20pm BP Systolic 138 mmHg BP Diastolic 60 mmHg Body Temperature 97.3 F Heart Rate 58 /min Respiratory Rate 14 /min Height 72 inches 6'0" Weight 250.00 lb [place] Body Weight 178 lb BMI (Body Mass Index) 33.9 kg/m2 O2 % BldC Oximetry 97 % 12/30/2019 2:37pm BP Systolic 128 mmHg BP Diastolic 76 mmHg Body Temperature 98.3 F Heart Rate 68 /min Respiratory Rate 18 /min Height 72 inches 6'0" Weight 277.00 lb [place] Body Weight 178 lb BMI (Body Mass [...] eGFR 55 # Calc 2 eGFR Non-Afr. Brazilian 47 # Calc 3 Lipid Panel 03/01/2020 [facility] Chol 140 mg/dL 0 - 200 Trig 110 mg/dL 35 - 200 HDL 32 mg/dL Low 35 - 55 LDL_C 86 Calc 75 - 129 Cho/HDL Ratio 4.4 CALC Prothrombin Time/Inr 02/25/2020 [facility] ( [facility]) [phone] Prothrombin Time 27.4 seconds High 12.5-14.3 Inr [...] eGFR 38 # Calc 6 eGFR Non-Afr. Brazilian 33 # Calc 7 CBC 02/17/2020 [facility] [...] 9.0 - 13.0 PT With [facility]-The[facility] 43.0 International Normalized Ratio 3.6 Prothrombin Time/Inr 02/10/2020 [facility] ( [facility]) [phone] Prothrombin Time 25.5 seconds High 12.5-14.3 Inr 2.26 Normal 8 Prothrombin Time/Inr 01/12/2020 [facility] ( [facility]) [phone] Prothrombin Time 34.0 seconds High 12.5-14.3 Inr [...] eGFR 55 # Calc 10 eGFR Non-Afr. Brazilian 47 # Calc 11 CBC 12/30/2019 [facility] [...] 9.0 - 13.0 Laboratory test finding 12/25/2019 [facility] Occult Blood NEG Neg Prothrombin Time/Inr 12/23/2019 [facility] ( [facility]) [phone] Prothrombin Time 22.9 seconds High 11.8-14.0 Inr 1.97 Normal 12 Prothrombin Time/Inr 11/10/2019 [facility] ( [facility]) [phone] Prothrombin Time 27.1 seconds High 11.8-14.0 Inr [...] eGFR 60 # Calc 15 eGFR Non-Afr. Brazilian 52 # Calc 16 Lipid Panel 11/07/2019 [facility] Chol 156 mg/dL 0 - 200 Trig 118 mg/dL 35 - 200 HDL 35 mg/dL 35 - 55 LDL_C 97 Calc 75 - 129 Cho/HDL Ratio 4.4 Calc Prothrombin Time/Inr 10/27/2019 [facility]) [phone] Prothrombin Time 30.3 seconds High 11.8-14.0 Inr 2.91 Normal 17 Prothrombin Time/Inr 10/20/2019 [facility]) [phone] Prothrombin Time 24.8 seconds High 11.8-14.0 Inr 2.26 Normal 18 Prothrombin Time/Inr 10/14/2019 [facility]) [phone] Prothrombin Time 48.7 seconds High 11.8-14.0 Inr 5.26 Critical high 19 Prothrombin Time/Inr 09/29/2019 [facility]) [phone] Prothrombin Time 41.0 seconds High 11.8-14.0 Inr 4.24 Normal 20 Prothrombin Time/Inr 09/03/2019 [facility]) [phone] Prothrombin Time 29.0 seconds High 11.8-14.0 Inr [...] HCT IS 5% LESS SOURCE FOR DATA: [employer] 1800 OPERATION MANUAL( AUTOMATED BLOOD COUNTS AND [...] HCT IS 5% LESS SOURCE FOR DATA: [employer] 1800 OPERATION MANUAL( AUTOMATED BLOOD COUNTS AND [...] Provider Dx Diagnosis Office Visit 02/17/2020 2:45p [place] [facility] Tiago Jo M. D. R19.7 Diarrhea, unspecified Z79.01 detention (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 of a nticoagulants Office Visit 12/30/2019 2:30p [place] [facility] Tiago Jo M. D. D64.9 Anemia, unspecified I10 Essential (primary) hyperten toshia Office Visit 11/26/2019 3:40p [place] [facility] Tiago Jo M. D. I10 Essential (primary) hypertension E78.5 Hyperlipidemia, unspecified R73.01 Impaired fasting glucose I48.91 Unspecified atrial fibrillat ion J44.9 Chronic obstructive pulmonar y disease, unspecified G20 Parkinson's disease Assessments Date Code Description Provider 02/17/2020 R19.7 Diarrhea, unspecified Tiago Jo M.D. 02/17/2020 Z79.01 detention (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 of antic oagulants Tiago Jo M.D. 12/30/2019 D64.9 Anemia, unspecified Ramiro Jo M.D. 12/30/2019 I10 Essential (primary) hypertension Tiago Jo M.D. 12/25/2019 D64.9 Anemia, unspecified Ramiro Jo M.D. 11/26/2019 I10 Essential (primary) hypertension Tiago Jo M.D. 11/26/2019 E78.5 Hyperlipidemia, unspecified [facility] Tiago huston M.D. 11/26/2019 R73.01 Impaired fasting glucose Tiago May M.D. 11/26/2019 I48.91 Unspecified atrial fibrillation Tiago Jo M.D. 11/26/2019 J44.9 Chronic obstructive pulmonary di sease, unspecified Tiago Jo M.D. 11/26/2019 G20 Parkinson's disease Ramiro Jo M.D. 11/07/2019 I10 Essential (primary) hypertension Tiago Jo M.D. 11/07/2019 E78.5 Hyperlipidemia, unspecified [facility] Tiago huston M.D. Plan of Treatment Future Appointment(s):* 03/08/2020 1:30 pm - Tiago Jo M.D. at [place] [facility] Functional Status Description No Information Available Mental Status Description No Information Available Referrals Refer to Dr Reason for Referral Status Appt Date Dixie Moffett possible Parkinsons- eval and rx Sent 12/01/2019 [facility] [address] [address] [phone]
--- OUTSIDE RECORDS SUMMARY | 2020-05-19 14:30 | CCD | Continuity of Care Document ---
Author Author Ronal DOAN PA-C Organization Unknown Address [address] [place] [address], [facility] [place] [address] Phone [phone] Care Team Providers Care Fairing Worker Name Role Phone Tiago Jo MD AUTM [phone] Eboni Doan-C AUTM [phone] Shar Turner MD AUTM [phone] Lorenzo Haddad DO AUTM [phone] Gay De León MD AUTM [phone] Rory Ritchie MD AUTM [phone] Silvana Rees MD AUTM [phone] Sharri Barnes AUTM [phone] Problems Active Problems Provider Date Chronic diastolic [...] PA-C Onset: 02/20/2017 Mitral valve disorder Eboni Dona PA-C Onset: 08/24/2017 Social History Type Date [...] Ndiaye MD 08/23/2017 Calcium 500+D High Potency [id number] Tablets 1 by mouth daily Unknown 05/01/2017 [...] Result H/L Range Note Prothrombin Time/Inr 02/25/2020 [facility] [employer] [facility] enter [phone] Prothrombin Time 27.4 seconds High 12.5-14.3 Inr 2.48 Normal 1 Prothrombin Time/Inr 02/10/2020 [facility] enter [phone] Prothrombin Time 25.5 seconds High 12.5-14.3 Inr 2.26 Normal 2 Prothrombin Time/Inr 01/12/2020 [facility] [employer] enter [phone] Prothrombin Time 34.0 seconds High 12.5-14.3 Inr [...] Hematocrit 34.8 Low 37.0-51.0 Prothrombin Time/Inr 12/23/2019 [facility] enter [phone] Prothrombin Time 22.9 seconds High 11.8-14.0 Inr 1.97 Normal 4 PT/Inr 12/09/2019 [facility] - not interfaced [phone] P T 24.2 I N R 2.12 Prothrombin Time/Inr 12/09/2019 [facility] enter [phone] Prothrombin Time 24.2 seconds High 12.5-14.3 Inr 2.12 Normal 5 Prothrombin Time/Inr 11/10/2019 [facility] [phone] Prothrombin Time 27.1 seconds High 11.8-14.0 Inr [...] mmol/L eGFR 60 # 8 eGFR Non-Afr. Nauruan 52 # 9 Chol 156 mg/dL 0-200 Trig 118 mg/dL 35-200 HDL 35 mg/dL 35-55 LDL_C 97 Calc 75-129 Cho/HDL Ratio 4.4 Calc Prothrombin Time/Inr 10/27/2019 [facility] enter [phone] Prothrombin Time 30.3 seconds High 11.8-14.0 Inr 2.91 Normal 10 Prothrombin Time/Inr 10/20/2019 [facility] enter [phone] Prothrombin Time 24.8 seconds High 11.8-14.0 Inr 2.26 Normal 11 Prothrombin Time/Inr 10/14/2019 [facility] enter [phone] Prothrombin Time 48.7 seconds High 11.8-14.0 Inr 5.26 Critical high 12 Prothrombin Time/Inr 09/29/2019 [facility] enter [phone] Prothrombin Time 41.0 seconds High 11.8-14.0 Inr [...] - Magnesium Level 2.17 Prothrombin Time/Inr 09/03/2019 [facility] enter [phone] Prothrombin Time 29.0 seconds High 11.8-14.0 Inr [...] HCT IS 5% LESS SOURCE FOR DATA: [employer] 1800 OPERATION MANUAL( AUTOMATED BLOOD COUNTS AND [...] 2.5-3.5 Procedures Date Code Description Status 02/10/2020 67596 Anticoagulant MGMT F or Patient Taking Warfarin, Inc Review & Intr Completed 02/05/2020 99301 ECG 12-Lead Completed 01/12/2020 84501 Anticoagulant MGMT F or Patient Taking Warfarin, Inc Review & Intr Completed 12/23/2019 56084 Anticoagulant MGMT F or Patient Taking Warfarin, Inc Review & Intr Completed 12/12/2019 46050 Anticoagulant MGMT F or Patient Taking Warfarin, Inc Review & Intr Completed 11/10/2019 10551 Anticoagulant MGMT F or Patient Taking Warfarin, Inc Review & Intr Completed 10/21/2019 75728 Anticoagulant MGMT F or Patient Taking Warfarin, Inc Review & Intr Completed 10/14/2019 84685 Anticoagulant MGMT F or Patient Taking Warfarin, Inc Review & Intr Completed 09/29/2019 43266 Anticoagulant MGMT F or Patient Taking Warfarin, Inc Review & Intr Completed 09/03/2019 87181 Anticoagulant MGMT F or Patient Taking Warfarin, Inc Review & Intr Completed Medical Devices Description No Information Available Encounters Type Date Location Provider Dx Diagnosis Office Visit 02/05/2020 1:00p Main Office Eboni Doan PA-C 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 Z95.5 Presence [...] PA-C 02/05/2020 I25.10 Atherosclerotic heart disease of [place] coronary artery with Eboni Doan, PA-C 02/05/2020 [...] fibrillation Ponce Gilliland Maverick, PA-C 01/12/2020 Z79.01 emt intermediate (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 of antic oagulants Eboni Doan PA-C 12/23/2019 Z79.01 emt intermediate (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 of antic oagulants FREDDY Connors 12/12/2019 I48.21 Permanent atrial fibrillation Ponce Gilliland Maverick PA-C 12/12/2019 Z79.01 emt intermediate (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 of antic oagulants Eboni Doan, PA-C 11/10/2019 I48.21 Permanent atrial fibrillation Ka aysha Reyna Maverick, PA-C 11/10/2019 Z79.01 emt intermediate (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 of antic oagulants Eboni Doan PA-C 10/21/2019 I48.21 Permanent atrial fibrillation Ka aysha Reyna Maverick, PA-C 10/21/2019 Z79.01 alf (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 of antic oagulants Eboni Doan PA-C 10/14/2019 Z79.01 emt intermediate (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 of antic oagulants FREDDY Connors 09/29/2019 Z79.01 alf (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 of antic oagulants FREDDY Gaitan-C 09/03/2019 I48.21 Permanent atrial fibrillation Ponce Gilliland Maverick PA-C 09/03/2019 Z79.01 alf (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 of antic oagulants Eboni Doan PA-C Plan of Treatment Future Appointment(s):* 08/10/2020 1:00 pm - Eboni Doan PA-C at Main Office 02/05/2020 - Eboni Doan PA-C* I25.10 Atherosclerotic heart disease of [place] coronary artery with * Z95.5 Presence of [...]
--- OUTSIDE RECORDS SUMMARY | 2020-05-19 14:31 | CCD | Continuity of Care Document ---
Author Author Ronal BARBOZA Organization Unknown Address [address] [place] [address] Phone [phone] Care Team Providers Care Overlock Sewing Machine Operator Name Role Phone Tiago Jo M.D. AUTM [phone] Problems Active Problems Provider Date Tremor Edwige Barnes M.D. Onset: 12/01/2019 Social History Type Date Description Comments Sex Unknown Allergies, Adverse Reactions, Alerts Description No Information Available Medications Active Medications SIG Qnty Indications Ordering Provide r Date Sinemet 25-100mg Tablets 1/2 tablet by mouth three times a day 45tabs Edwige Barnes M.D. 12/03 Immunizations Description No Information Available Vital Signs Description No Information Available Results Description No Information Available Procedures Date Code Description Status 02/19/2020 27904 EEG Recording Awake & Asleep Com pleted 02/19/2020 40091 EEG Recording Awake & Asleep Com pleted 12/13/2019 76662 MRI Spine Lumbar W/O Contrast Co mpleted 12/13/2019 55155 MRI Spine Lumbar W/O Contrast Co mpleted 12/13/2019 82166 MRI Brain W/O Contrast Completed 12/13/2019 97200 MRI Brain W/O Contrast Completed 12/08/2019 19566 Nerve Conduction 13+ Studies Com pleted 12/08/2019 84397 Needle Electromyography Complete , Five Or More Muscles Studied Completed 12/08/2019 65337 Needle Electromyography Complete , Five Or More Muscles Studied Completed Medical Devices Description No Information Available Encounters Type Date Location Provider Dx Diagnosis Office Visit 12/01/2019 2:00p Main office - [place] Edwige Barnes M.D. R26.2 Difficulty in walking, not elsewhere classified R20.2 Paresthesia of skin G20 Parkinson's disease M62.9 Disorder of muscle, unspecif ied Assessments Date Code Description Provider 02/19/2020 G25.0 Essential tremor Edwige Cameron, M .D. 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 12/13/2019 G20 Parkinson's disease MRI 12/13/2019 M62.9 Disorder of muscle, unspecified Martina Cameron, M.D. 12/13/2019 M62.9 Disorder of muscle, unspecified MRI 12/13/2019 R26.2 Difficulty in walking, not elsew here classified Martina Cameron, M.D. 12/13/2019 R26.2 Difficulty in walking, not elsew here classified MRI 12/13/2019 R20.2 Paresthesia of skin Martina Cameron, M.D. 12/13/2019 R20.2 Paresthesia of skin MRI 12/08/2019 R26.2 Difficulty in walking, not elsew here classified Martina Cameron, M.D. 12/08/2019 M54.5 Low back pain Martina Cameron, M.D . 12/08/2019 M54.16 Radiculopathy, lumbar region Abd ul Cameron, M.D. 12/08/2019 R20.2 Paresthesia of skin Martina Cameron, M.D. 12/08/2019 G60.9 Hereditary and idiopathic neurop athy, unspecified Martina Cameron, M.D. 12/01/2019 R26.2 Difficulty in walking, not elsew here classified Edwige Cameron, M.D. 12/01/2019 R20.2 Paresthesia of skin Edwige Cameron , M.D. 12/01/2019 G20 Parkinson's disease Edwige Cameron , M.D. 12/01/2019 M62.9 Disorder of muscle, unspecified Edwige Cameron, M.DKyleigh Plan of Treatment Future Appointment(s):* 02/23/2020 8:15 am - Edwige Barnes M.D. at Main office - [place] Functional Status Description No Information Available Mental Status Description No Information Available Referrals Description No Information Available
--- OUTSIDE RECORDS SUMMARY | 2020-05-19 14:31 | CCD | Continuity of Care Document ---
Author Author Ronal BARBOZA Organization Unknown Address [address] [place] [address] Phone [phone] Care Team Providers Care Punch Press Operator Name Role Phone Tiago Jo M.D. AUTM [phone] Problems Active Problems Provider Date Tremor Edwige [...] Information Available Procedures Date Code Description Status 12/13/2019 95023 MRI Spine Lumbar W/O Contrast Co mpleted 12/13/2019 70373 MRI Spine Lumbar W/O Contrast Co mpleted 12/13/2019 05703 MRI Brain W/O Contrast Completed 12/13/2019 80542 MRI Brain W/O Contrast Completed 12/08/2019 99192 Nerve Conduction 13+ Studies Com pleted 12/08/2019 97982 Needle Electromyography Complete , Five Or More Muscles Studied Completed 12/08/2019 63428 Needle Electromyography Complete , Five Or More Muscles Studied Completed Medical Devices Description No Information Available Encounters Type Date Location Provider Dx Diagnosis Office Visit 12/01/2019 2:00p [place] M.[place]. R26.2 Difficulty in walking, not elsewhere classified R20.2 Paresthesia of skin G20 Parkinson's disease M62.9 Disorder of muscle, unspecif ied Assessments Date Code Description Provider 12/13/2019 G20 Parkinson's disease Martina Barnes M.D. 12/13/2019 G20 Parkinson's disease MRI 12/13/2019 [...] 12/01/2019 M62.9 Disorder of muscle, unspecified Edwige Barnes M.D. Plan of Treatment Future Appointment(s):* 02/23/2020 8:15 am - Edwige Barnes M.D. at Main [facility] * 02/20/2020 11:00 am - [facility] at [facility] Functional Status Description No Information Available Mental Status Description No Information Available Referrals Description No Information Available
--- OUTSIDE RECORDS SUMMARY | 2020-05-19 14:31 | CCD | Continuity of Care Document ---
Author Author Ej/Ronal WALLACE Organization Unknown Address [address] [place] [address] Phone [phone] Care Team Providers Care Pond Tender Name Role Phone Tiago Jo M.D. AUTM [phone] Problems Active Problems Provider Date Tremor Edwige [...] Available Procedures Date Code Description Status 02/19/2020 73724 EEG Recording Awake & Asleep Com pleted 12/13/2019 21838 MRI Spine Lumbar W/O Contrast Co mpleted 12/13/2019 34138 MRI Spine Lumbar W/O Contrast Co mpleted 12/13/2019 83145 MRI Brain W/O Contrast Completed 12/13/2019 20000 MRI Brain W/O Contrast Completed 12/08/2019 45390 Nerve Conduction 13+ Studies Com pleted 12/08/2019 59721 Needle Electromyography Complete , Five Or More Muscles Studied Completed 12/08/2019 76421 Needle Electromyography Complete , Five Or More Muscles Studied Completed Medical Devices Description No Information Available Encounters Type Date Location Provider Dx Diagnosis Office Visit 12/01/2019 2:00p Main office - [place] Edwige Barnes M.D. 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 at Main office - [place] Functional Status Description No Information Available Mental Status Description No Information Available Referrals Description No Information Available
--- OUTSIDE RECORDS SUMMARY | 2020-05-19 14:31 | CCD | Continuity of Care Document ---
Author Author Ronal JO M.D. Organization Unknown Address [address] [address] Phone [phone] Care Team Providers Care Fish Hatchery Superintendent Name Role Phone Lorenzo Haddad D.O. AUTM [phone] Anna Marie Barnes AUTM [phone] Problems Active Problems Provider Date Impaired fasting [...] Shingrix 50mcg/0.5ML Suspension Re c as directed 1Taigo Parker M.D. 11/23/19 19 Polyethylene Glycol 3350 [...] CPT Code Status Date Vaccine Lot # [id number] Given 02/07/2017 Influenza Virus Vaccine, Quadrivalent, Slit Virus, Im Use 3Y & Up [id number] 06074 Given 04/13/2015 Influenza Vaccin e (Fluzone) 3Yrs Of Age Or Older Medicare Plans [id number] 96084 Given 03/23/2014 Influenza Vaccin e (Fluzone) 3Yrs Of Age Or Older Medicare Plans [id number] 95447 Given 10/16/2013 Zoster (Shingles) Vaccine 21256 Given 02/05/2013 Influenza Vaccin e (Fluzone) 3Yrs Of Age Or Older Medicare Plans 22113 Given 02/05/2013 Influenza Virus Vac. Split Virus Individuals 3 Years And Above [id number] Vital Signs Date Vital Result Comment 02/17/2020 3:20pm BP Systolic 138 mmHg BP Diastolic 60 mmHg Body Temperature 97.3 F Heart Rate 58 /min Respiratory Rate 14 /min Height 72 inches 6'0" Weight 250.00 lb [place] Body Weight 178 lb BMI (Body Mass Index) 33.9 kg/m2 O2 % BldC Oximetry 97 % 12/30/2019 2:37pm BP Systolic 128 mmHg BP Diastolic 76 mmHg Body Temperature 98.3 F Heart Rate 68 /min Respiratory Rate 18 /min Height 72 inches 6'0" Weight 277.00 lb [place] Body Weight 178 lb BMI (Body Mass Index) 37.6 kg/m2 O2 % BldC Oximetry 94 % Results Test Acquired Date Facility Test Result H/L Range Note Prothrombin Time/Inr 02/25/2020 [facility] ( [facility]) [phone] Prothrombin Time 27.4 seconds High 12.5-14.3 Inr [...] eGFR 38 # Calc 3 eGFR Non-Afr. [place]amese 33 # Calc 4 CBC 02/17/2020 [facility] [...] PT With [facility]-The[facility] [facility] Prothrombin Time-Therapy 43.0 International Normalized Ratio 3.6 Prothrombin Time/Inr 02/10/2020 [facility] ( [facility]) [phone] Prothrombin Time 25.5 seconds High 12.5-14.3 Inr 2.26 Normal 5 Prothrombin Time/Inr 01/12/2020 [facility] ( [facility]) [phone] Prothrombin Time 34.0 seconds High 12.5-14.3 Inr [...] eGFR 55 # Calc 7 eGFR Non-Afr. [place] 47 # Calc 8 CBC 12/30/2019 [facility] [...] 9.0 - 13.0 Laboratory test finding 12/25/2019 [facility] Occult Blood NEG Neg Prothrombin Time/Inr 12/23/2019 [facility] ( [facility]) [phone] Prothrombin Time 22.9 seconds High 11.8-14.0 Inr 1.97 Normal 9 Prothrombin Time/Inr 11/10/2019 [facility] ( [facility]) [phone] Prothrombin Time 27.1 seconds High 11.8-14.0 Inr [...] eGFR 60 # Calc 12 eGFR Non-Afr. [place] 52 # Calc 13 Lipid Panel 11/07/2019 [...] fL 9.0 - 13.0 Prothrombin Time/Inr 10/27/2019 [facility] ( [facility]) [phone] Prothrombin Time 30.3 seconds High 11.8-14.0 Inr 2.91 Normal 14 Prothrombin Time/Inr 10/20/2019 [facility] ( [facility]) [phone] Prothrombin Time 24.8 seconds High 11.8-14.0 Inr 2.26 Normal 15 Prothrombin Time/Inr 10/14/2019 [facility] ( [facility]) [phone] Prothrombin Time 48.7 seconds High 11.8-14.0 Inr 5.26 Critical high 16 Prothrombin Time/Inr 09/29/2019 [facility] ( [facility]) [phone] Prothrombin Time 41.0 seconds High 11.8-14.0 Inr 4.24 Normal 17 Prothrombin Time/Inr 09/03/2019 [facility] ( [facility]) [phone] Prothrombin Time 29.0 seconds High 11.8-14.0 Inr [...] HCT IS 5% LESS SOURCE FOR DATA: [employer] 1800 OPERATION MANUAL( AUTOMATED BLOOD COUNTS AND [...] HCT IS 5% LESS SOURCE FOR DATA: [employer] 1800 OPERATION MANUAL( AUTOMATED BLOOD COUNTS AND [...] Provider Dx Diagnosis Office Visit 02/17/2020 2:45p [place] [facility] Tiago Jo M. D. 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 D. D64.9 Anemia, unspecified I10 Essential (primary) hyperten toshia Office Visit 11/26/2019 3:40p [place] [facility] Tiago Jo M. D. I10 Essential (primary) hypertension E78.5 Hyperlipidemia, unspecified R73.01 Impaired fasting glucose I48.91 Unspecified atrial fibrillat ion J44.9 Chronic obstructive pulmonar y disease, unspecified G20 Parkinson's disease Assessments Date Code Description Provider 02/17/2020 R19.7 Diarrhea, unspecified Tiago Jo M.D. 02/17/2020 Z79.01 [facility] (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 of antic oagulants Tiago Jo M.D. 12/30/2019 D64.9 Anemia, unspecified Ramiro Jo M.D. 12/30/2019 I10 Essential (primary) hypertension Tiago Jo M.D. 12/25/2019 D64.9 Anemia, unspecified Ramiro Jo M.D. 11/26/2019 I10 Essential (primary) hypertension Tiago Jo M.D. 11/26/2019 E78.5 Hyperlipidemia, unspecified [facility] 11/26/2019 R73.01 Impaired fasting glucose Tiago May M.D. 11/26/2019 I48.91 Unspecified atrial fibrillation Tiago Jo M.D. 11/26/2019 J44.9 Chronic obstructive pulmonary di sease, unspecified Tiago Jo M.D. 11/26/2019 G20 Parkinson's disease Ramiro Jo M.D. 11/07/2019 I10 Essential (primary) hypertension Tiago Jo M.D. 11/07/2019 E78.5 Hyperlipidemia, unspecified [facility] Plan of Treatment Future Appointment(s):* 03/08/2020 1:30 pm - Tiago Jo M.D. at [place] Office * 03/01/2020 9:00 am - Laboratory [place] Schedule at [facility] Functional Status Description No Information Available Mental Status Description No Information Available Referrals Refer to Dr Reason for Referral Status Appt Date Dixie Moffett possible Parkinsons- eval and rx Sent 12/01/2019 [facility] [address] [address] [phone]
--- OUTSIDE RECORDS SUMMARY | 2020-05-19 14:31 | CCD | Continuity of Care Document ---
Author Author Ronal JO M.D. Organization Unknown Address [address] [address] Phone [phone] Care Team Providers Care Music Composer Name Role Phone Lorenzo Haddad D.O. AUTM [phone] Anna Marie Barnes AUTM [phone] Problems Active Problems Provider Date Impaired fasting [...] Ordering Provider Date Injection (SC)/(Im) Injection Tiago oJ M.D. 02/05/2013 Immunizations CPT Code Status Date Vaccine Lot # 12260 Given 02/07/2017 Influenza Virus Vaccine, Quadrivalent, Slit Virus, Im Use 3Y & Up [id number] 18585 Given 04/13/2015 Influenza Vaccin e (Fluzone) 3Yrs Of Age Or Older Medicare Plans [id number] 59648 Given 03/23/2014 Influenza Vaccin e (Fluzone) 3Yrs Of Age Or Older Medicare Plans [id number] 08748 Given 10/16/2013 Zoster (Shingles) Vaccine 19197 Given 02/05/2013 Influenza Vaccin e (Fluzone) 3Yrs Of Age Or Older Medicare Plans 89050 Given 02/05/2013 Influenza Virus Vac. Split Virus Individuals 3 Years And Above [id number] Vital Signs Date Vital Result Comment 02/17/2020 3:20pm BP Systolic 138 mmHg BP Diastolic 60 mmHg Body Temperature 97.3 F Heart Rate 58 /min Respiratory Rate 14 /min Height 72 inches 6'0" Weight 250.00 lb [place] Body Weight 178 lb BMI (Body Mass Index) 33.9 kg/m2 O2 % BldC Oximetry 97 % 12/30/2019 2:37pm BP Systolic 128 mmHg BP Diastolic 76 mmHg Body Temperature 98.3 F Heart Rate 68 /min Respiratory Rate 18 /min Height 72 inches 6'0" Weight 277.00 lb [place] Body Weight 178 lb BMI (Body Mass Index) 37.6 kg/m2 O2 % BldC Oximetry 94 % Results Test Acquired Date Facility Test Result H/L Range Note CMP 02/17/2020 [facility] Glu 106 mg/dL 70 - 110 1 BUN 81 mg/dL High 8 - 23 [...] Gap 20 mmol/L eGFR 38 # Calc 2 eGFR Non-Afr. Congolese 33 # Calc 3 CBC 02/17/2020 [facility] WBC 11.3 10E3/uL High [...] 9.0 - 13.0 PT [facility] Prothrombin Time-Therapy 43.0 International Normalized Ratio 3.6 Prothrombin Time/Inr 02/10/2020 [facility] ( [facility]) [phone] Prothrombin Time 25.5 seconds High 12.5-14.3 Inr 2.26 Normal 4 Prothrombin Time/Inr 01/12/2020 [facility] ( [facility]) [phone] Prothrombin Time 34.0 seconds High 12.5-14.3 Inr 3.26 Normal 5 Basic Metabolic Panel 12/30/2019 [facility] Glu 96 [...] Gap 15 mmol/L eGFR 55 # Calc 6 eGFR Non-Afr. Congolese 47 # Calc 7 CBC 12/30/2019 [facility] WBC 6.7 10E3/uL 4.1 [...] 9.0 - 13.0 Laboratory test finding 12/25/2019 [facility] Occult Blood NEG Neg Prothrombin Time/Inr 12/23/2019 [facility] ( [facility]) [phone] Prothrombin Time 22.9 seconds High 11.8-14.0 Inr 1.97 Normal 8 Prothrombin Time/Inr 11/10/2019 [facility] ( [facility]) [phone] Prothrombin Time 27.1 seconds High 11.8-14.0 Inr 2.53 Normal 9 CMP 11/07/2019 [facility] Glu 103 mg/dL 70 - 110 10 BUN 28 mg/dL High 8 - 23 [...] Gap 13 mmol/L eGFR 60 # Calc 11 eGFR Non-Afr. Congolese 52 # Calc 12 Lipid Panel 11/07/2019 [facility] Chol 156 mg/dL [...] fL 9.0 - 13.0 Prothrombin Time/Inr 10/27/2019 [facility] ( [facility]) [phone] Prothrombin Time 30.3 seconds High 11.8-14.0 Inr 2.91 Normal 13 Prothrombin Time/Inr 10/20/2019 [facility] ( [facility]) [phone] Prothrombin Time 24.8 seconds High 11.8-14.0 Inr 2.26 Normal 14 Prothrombin Time/Inr 10/14/2019 [facility] ( [facility]) [phone] Prothrombin Time 48.7 seconds High 11.8-14.0 Inr 5.26 Critical high 15 Prothrombin Time/Inr 09/29/2019 [facility] ( [facility]) [phone] Prothrombin Time 41.0 seconds High 11.8-14.0 Inr 4.24 Normal 16 Prothrombin Time/Inr 09/03/2019 [facility] ( [facility]) [phone] Prothrombin Time 29.0 seconds High 11.8-14.0 Inr 2.75 Normal 17 1 NORMAL RANGES Age WBC RBC HGB [...] HCT IS 5% LESS SOURCE FOR DATA: [employer] 1800 OPERATION MANUAL( AUTOMATED BLOOD COUNTS AND [...] RISK) 2.5-3.5 RECURRENT MYOCARDIAL INFARCTION 2.5-3.5 6 CKD-EPI 7 CKD-EPI 8 THERAPUTIC HUMAN [...] HCT IS 5% LESS SOURCE FOR DATA: [employer] 1800 OPERATION MANUAL( AUTOMATED BLOOD COUNTS AND [...] ADOLESCENTS REPRESENTS INDIVIDUALA AGED 2-19 YEARS EXCLUSIVE. 11 CKD-EPI 12 CKD-EPI 13 THERAPUTIC HUMAN [...] Provider Dx Diagnosis Office Visit 02/17/2020 2:45p [place] [facility] Tiago Jo M. D. 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 D. D64.9 Anemia, unspecified I10 Essential (primary) hyperten toshia Office Visit 11/26/2019 3:40p [place] [facility] Tiago Jo M. D. I10 Essential (primary) hypertension E78.5 Hyperlipidemia, unspecified R73.01 Impaired fasting glucose I48.91 Unspecified atrial fibrillat ion J44.9 Chronic obstructive pulmonar y disease, unspecified G20 Parkinson's disease Assessments Date Code Description Provider 02/17/2020 R19.7 Diarrhea, unspecified Tiago Jo M.D. 02/17/2020 Z79.01 group home (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 of antic oagulants Tiago Jo M.D. 12/30/2019 D64.9 Anemia, unspecified Ramiro Jo M.D. 12/30/2019 I10 Essential (primary) hypertension Tiago Jo M.D. 12/25/2019 D64.9 Anemia, unspecified Ramiro Jo M.D. 11/26/2019 I10 Essential (primary) hypertension Tiago Jo M.D. 11/26/2019 E78.5 Hyperlipidemia, unspecified [facility] Tiago huston M.D. 11/26/2019 R73.01 Impaired fasting glucose Tiago May M.D. 11/26/2019 I48.91 Unspecified atrial fibrillation Tiago Jo M.D. 11/26/2019 J44.9 Chronic obstructive pulmonary di sease, unspecified Tiago Jo M.D. 11/26/2019 G20 Parkinson's disease Ramiro Jo M.D. 11/07/2019 I10 Essential (primary) hypertension Tiago Jo M.D. 11/07/2019 E78.5 Hyperlipidemia, unspecified [facility] Tiago huston M.D. Plan of Treatment Future Appointment(s):* 03/08/2020 1:30 pm - Tiago Jo M.D. at [facility] * 03/01/2020 9:00 am - Laboratory [place] Schedule at [facility] Functional Status Description No Information Available Mental Status Description No Information Available Referrals Refer to Reason for Referral Status Appt Date Dixie Moffett possible Parkinsons- eval and rx Sent 12/01/2019 [facility] [address] [address] [phone]
--- OUTSIDE RECORDS SUMMARY | 2020-05-19 14:31 | CCD | Continuity of Care Document ---
Author Author Ronal BARNES M.D. Organization Unknown Address [address] [place] [address] Phone [phone] Care Team Providers Care Motorcycle Sales Associate Name Role Phone Tiago Jo M.D. AUTM [phone] Problems Active Problems Provider Date Tremor Edwige Barnes M.D. Onset: 12/01/2019 Social History Type Date Description Comments Sex Unknown Allergies, Adverse Reactions, Alerts Description No Information Available Medications Active Medications SIG Qnty Indications Ordering Provide r Date Sinemet 25-100mg Tablets 1 tablet by mouth three times a day 90tabs Edwige Barnes M.D. 12/04/2019 Immunizations Description No Information Available Vital Signs Description No Information Available Results Description No Information Available Procedures Date Code Description Status 02/20/2020 30202 Sympathetic Skin Responses Compl eted 02/20/2020 08602 Test Autonomic Nervous System, C ardiovagal Innervation Completed 02/19/2020 98268 EEG Recording Awake & Asleep Com pleted 02/19/2020 15506 EEG Recording Awake & Asleep Com pleted 12/13/2019 48007 MRI Spine Lumbar W/O Contrast Co mpleted 12/13/2019 94986 MRI Spine Lumbar W/O Contrast Co mpleted 12/13/2019 07185 MRI Brain W/O Contrast Completed 12/13/2019 07873 MRI Brain W/O Contrast Completed 12/08/2019 99793 Nerve Conduction 13+ Studies Com pleted 12/08/2019 82912 Needle Electromyography Complete , Five Or More Muscles Studied Completed 12/08/2019 39266 Needle Electromyography Complete , Five Or More Muscles Studied Completed Medical Devices Description No Information Available Encounters Type Date Location Provider Dx Diagnosis Office Visit 12/01/2019 2:00p Main office - [place] Edwige Cameron, M.D. R26.2 Difficulty in walking, not elsewhere classified R20.2 Paresthesia of skin G20 Parkinson's disease M62.9 Disorder of muscle, unspecif ied Assessments Date Code Description Provider 02/20/2020 G20 Parkinson's disease Ans/VS 02/20/2020 G60.8 Other hereditary and idiopathic neuropathies Ans/VS 02/19/2020 G25.0 Essential tremor Edwige Cameron, M [...] unspecified Edwige Barnes M.D. Plan of Treatment No Information Available Functional Status Description No Information Available Mental Status Description No Information Available Referrals Description No Information Available
--- OUTSIDE RECORDS SUMMARY | 2020-05-19 14:31 | CCD | Continuity of Care Document ---
Author Author Ej/Ronal WALLACE Organization Unknown Address [address] [place] [address] Phone [phone] Care Team Providers Care System Administrator Name Role Phone Tiago Jo M.D. AUTM [phone] Problems Active Problems Provider Date Tremor Edwige [...] Available Procedures Date Code Description Status 02/20/2020 04770 Sympathetic Skin Responses Compl eted 02/20/2020 77811 Sympathetic Skin Responses Compl eted 02/20/2020 99841 Test Autonomic Nervous System, C ardiovagal Innervation Completed 02/20/2020 71076 Test Autonomic Nervous System, C ardiovagal Innervation Completed 02/19/2020 48174 EEG Recording Awake & Asleep Com pleted 02/19/2020 85585 EEG Recording Awake & Asleep Com pleted 12/13/2019 18320 MRI Spine Lumbar W/O Contrast Co mpleted 12/13/2019 33081 MRI Spine Lumbar W/O Contrast Co mpleted 12/13/2019 89421 MRI Brain W/O Contrast Completed 12/13/2019 68241 MRI Brain W/O Contrast Completed 12/08/2019 44939 Nerve Conduction 13+ Studies Com pleted 12/08/2019 42351 Needle Electromyography Complete , Five Or More Muscles Studied Completed 12/08/2019 31558 Needle Electromyography Complete , Five Or More Muscles Studied Completed Medical Devices Description No Information Available Encounters Type Date Location Provider Dx Diagnosis Office Visit 02/23/2020 8:15a [place] M47.897 Other spondylosis, lumbosacral region G20 Parkinson's disease G60.9 Hereditary and idiopathic ne uropathy, unspecified R26.2 Difficulty in walking, not e lsewhere classified Office Visit 12/01/2019 2:00p Main office - [place] Edwige Barnes M.D. R26.2 Difficulty in walking, not elsewhere classified R20.2 Paresthesia of skin G20 Parkinson's disease M62.9 Disorder of muscle, unspecif ied Assessments Date Code Description Provider 02/23/2020 M47.897 Other spondylosis, lumbosacral r egion Edwige Barnes M.D. 02/23/2020 G20 Parkinson's disease Edwige Barnes M.D. 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 02/23/2020 R26.2 Difficulty in walking, not elsew here classified Edwige Barnes M.D. 02/20/2020 G20 Parkinson's disease Edwige Barnes M.D. 02/20/2020 G20 Parkinson's disease Ans/VS 02/20/2020 G60.8 Other hereditary and idiopathic neuropathies Edwige Barnes M.D. 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 12/13/2019 G20 Parkinson's disease MRI 12/13/2019 M62.9 Disorder of muscle, unspecified Martina Barnes M.D. 12/13/2019 M62.9 Disorder of muscle, unspecified MRI 12/13/2019 R26.2 Difficulty in walking, not elsew here classified Martina Barnes M.D. 12/13/2019 R26.2 Difficulty in walking, not [...] M62.9 Disorder of muscle, unspecified Edwige Cameron, M.D. Plan of Treatment No Information Available Functional Status Description No Information Available Mental Status Description No Information Available Referrals Description No Information Available
--- OUTSIDE RECORDS SUMMARY | 2020-05-19 14:31 | CCD | Continuity of Care Document ---
Author Author Ronal BARNES M.D. Organization Unknown Address [address] [place] [address] Phone [phone] Care Team Providers Care Sales Development Manager Name Role Phone Tiago Jo M.D. AUTM [phone] Problems Active Problems Provider Date Tremor Edwige [...] Available Procedures Date Code Description Status 02/20/2020 46902 Sympathetic Skin Responses Compl eted 02/20/2020 46786 Test Autonomic Nervous System, C ardiovagal Innervation Completed 02/19/2020 84866 EEG Recording Awake & Asleep Com pleted 02/19/2020 07419 EEG Recording Awake & Asleep Com pleted 12/13/2019 66292 MRI Spine Lumbar W/O Contrast Co mpleted 12/13/2019 77861 MRI Spine Lumbar W/O Contrast Co mpleted 12/13/2019 09051 MRI Brain W/O Contrast Completed 12/13/2019 76511 MRI Brain W/O Contrast Completed 12/08/2019 97838 Nerve Conduction 13+ Studies Com pleted 12/08/2019 67002 Needle Electromyography Complete , Five Or More Muscles Studied Completed 12/08/2019 40251 Needle Electromyography Complete , Five Or More Muscles Studied Completed Medical Devices Description No Information Available Encounters Type Date Location Provider Dx Diagnosis Office Visit 02/23/2020 8:15a [place] M.[place] M47.897 Other spondylosis, lumbosacral region G20 Parkinson's disease G60.9 Hereditary and idiopathic ne uropathy, unspecified R26.2 Difficulty in walking, not e lsewhere classified Office Visit 12/01/2019 2:00p [place] M.[place]. R26.2 Difficulty in walking, not [...] 12/13/2019 M62.9 Disorder of muscle, unspecified Martina CameronApolloDKyleigh 12/13/2019 M62.9 Disorder of muscle, unspecified MRI 12/13/2019 R26.2 Difficulty in walking, not elsew here classified Martina CameronApolloDKyleigh 12/13/2019 R26.2 Difficulty in walking, not elsew here classified MRI 12/13/2019 R20.2 Paresthesia of skin Martina CameronMayur jorgensen 12/13/2019 R20.2 Paresthesia of skin MRI 12/08/2019 R26.2 Difficulty in walking, not elsew here classified Martina Cameron, M.D. 12/08/2019 M54.5 Low back pain Martina Cameron, M.D . 12/08/2019 M54.16 Radiculopathy, lumbar region Abd ul Cameron, M.D. 12/08/2019 R20.2 Paresthesia of skin Martina Cameron, M.D. 12/08/2019 G60.9 Hereditary and idiopathic neurop athy, unspecified Martina Cameron, M.DKyleigh 12/01/2019 R26.2 Difficulty in walking, not elsew here classified Edwige Cameron, M.D. 12/01/2019 R20.2 Paresthesia of skin Edwige Cameron , M.DKyleigh 12/01/2019 G20 Parkinson's disease Edwige Cameron , M.DKyleigh 12/01/2019 M62.9 Disorder of muscle, unspecified Edwigeus Cameron M.D. Plan of Treatment No Information Available Functional Status Description No Information Available Mental Status Description No Information Available Referrals Description No Information Available
--- OUTSIDE RECORDS SUMMARY | 2020-05-19 14:33 | CCD ---
Author Author [facility] Organization [facility] Address Unknown Phone Unavailable Care Team Providers Care Certified Adaptive Physical Educator Name Role Phone KiranwMary Ellen PA Unavailable Unavailable Symenow, Mary Ellen Lyn PA Unavailable Unavailable Symenow, Mary Ellen Lyn PA Unavailable Unavailable Symenow, Mary Ellen Lyn PA Unavailable Unavailable Symenow, Mary Ellen Lyn PA Unavailable Unavailable Symenow, Mary Ellen Lyn PA Unavailable Unavailable Symenow, Mary Ellen Lyn PA Unavailable Unavailable Symenow, Mary Ellen Lyn PA Unavailable Unavailable Symenow, Mary Ellen Lyn PA Unavailable Unavailable Symenow, Mary Ellen Lny PA Unavailable Unavailable Symenow, Mary Ellen Lyn PA Unavailable Unavailable Symenow, Mary Ellen Lyn PA Unavailable Unavailable Symenow, Mary Ellen Lyn PA Unavailable Unavailable Symenow, Mary Ellen Lyn PA Unavailable Unavailable Symenow, Mary Ellen Lyn PA Unavailable Unavailable Symenow, Mary Ellen Lyn PA Unavailable Unavailable Symenow, Mary Ellen Lyn PA Unavailable Unavailable Symenow, Mary Ellen Lyn PA Unavailable Unavailable Symenow, Mary Ellen Lyn PA Unavailable Unavailable Symenow, Mary Ellen Lyn PA Unavailable Unavailable Symenow, Mary Ellen Lyn PA Unavailable Unavailable Symenow, Mary Ellen Lyn PA Unavailable Unavailable Symenow, Mary Ellen Lyn PA Unavailable Unavailable Symenow, Mary Ellen Lyn PA Unavailable Unavailable Symenow, Mary Ellen Lyn PA Unavailable Unavailable Symenow, Mary Ellen Eboni PA Unavailable Unavailable Symenow, Mary Ellen Eboni PA Unavailable Unavailable Symenow, Mary Ellen Eboni PA Unavailable Unavailable Symenow, Mary Ellen Eboni PA Unavailable Unavailable Symenow, Mary Ellen Eboni PA Unavailable Unavailable Symenow, Mary Ellen Eboni PA Unavailable Unavailable Symenow, Mary Ellen Eboni PA Unavailable Unavailable Symenow, Mary Ellen Eboni PA Unavailable Unavailable Symenow, Mary Ellen Eboni PA Unavailable Unavailable Symenow, Mary Ellen Eboni PA Unavailable Unavailable Symenow, Mary Ellen Eboni PA Unavailable Unavailable MERT, DARIN MD Unavailable Unavailable MERT, DARIN MD Unavailable Unavailable MERT, DARIN MD Unavailable Unavailable MERT, DARIN MD Unavailable Unavailable MERT, DARIN MD Unavailable Unavailable MERT, DARIN MD Unavailable Unavailable MERT, DARIN MD Unavailable Unavailable MERT, DARIN MD Unavailable Unavailable MERT, DARIN MD Unavailable Unavailable MERT, DARIN MD Unavailable Unavailable MERT, DARIN MD Unavailable Unavailable MERT, DARIN MD Unavailable Unavailable MERT, DARIN MD Unavailable Unavailable MERT, DARIN MD Unavailable Unavailable MERT, DARIN MD Unavailable Unavailable MERT, DARIN MD Unavailable Unavailable MERT, DARIN MD Unavailable Unavailable MERT, DARIN MD Unavailable Unavailable MERT, DARIN MD Unavailable Unavailable MERT, DARIN MD Unavailable Unavailable MERT, DARIN MD Unavailable Unavailable MERT, DARIN MD Unavailable Unavailable MERT, DARIN MD Unavailable Unavailable MRET, DARIN MD Unavailable Unavailable MERT, DARIN MD Unavailable Unavailable MERT, DARIN MD Unavailable Unavailable MERT, DARIN MD Unavailable Unavailable MERT, DARIN MD Unavailable Unavailable MERT, DARIN MD Unavailable Unavailable MERT, DARIN MD Unavailable Unavailable MERT, DARIN MD Unavailable Unavailable MERT, DARIN MD Unavailable Unavailable MERT, DARIN MD Unavailable Unavailable MERT, DARIN MD Unavailable Unavailable MERT, DARIN MD Unavailable Unavailable MERT, DARIN MD Unavailable Unavailable MERT, DARIN MD Unavailable Unavailable MERT, DARIN MD Unavailable Unavailable MERT, DARIN MD Unavailable Unavailable MERT, DARIN MD Unavailable Unavailable Solomon POLO MD Unavailable Unavailable Solomon POLO MD Unavailable Unavailable Solomon POLO MD Unavailable Unavailable Solomon POLO MD Unavailable Unavailable Solomon POLO MD Unavailable Unavailable Solomon POLO MD Unavailable Unavailable Solomon POLO MD Unavailable Unavailable Solomon POLO MD Unavailable Unavailable CHRIST H ASHLEIGH FAIRCHILD Unavailable Unavailable CHRIST H ASHLEIGH FAIRCHILD Unavailable Unavailable CHRIST H ASHLEIGH FAIRCHILD Unavailable Unavailable CHRIST H ASHLEIGH FAIRCHILD Unavailable Unavailable CHRIST H ASHLEIGH FAIRCHILD Unavailable Unavailable CHRIST H ASHLEIGH FAIRCHILD Unavailable Unavailable CHRIST H ASHLEIGH FAIRCHILD Unavailable Unavailable CHRIST H ASHLEIGH FAIRCHILD Unavailable Unavailable CHRIST H ASHLEIGH FAIRCHILD Unavailable Unavailable CHRIST H ASHLEIGH FAIRCHILD Unavailable Unavailable CHRIST, H ASHLEIGH FAIRCHILD Unavailable Unavailable CHRIST H ASHLEIGH FAIRCHILD Unavailable Unavailable CHRIST, H ASHLEIGH FAIRCHILD Unavailable Unavailable CHRIST H ASHLEIGH FAIRCHILD Unavailable Unavailable CHRIST H ASHLEIGH FAIRCHILD Unavailable Unavailable CHRIST H ASHLEIGH FAIRCHILD Unavailable Unavailable CHRIST H ASHLEIGH FAIRCHILD Unavailable Unavailable CHRSIT H ASHLEIGH FAIRCHILD Unavailable Unavailable CHRIST H ASHLEIGH FAIRCHILD Unavailable Unavailable CHRIST H ASHLEIGH FAIRCHILD Unavailable Unavailable CHRIST H ASHLEIGH FAIRCHILD Unavailable Unavailable Solomon POLO MD Unavailable Unavailable Solomon POLO MD Unavailable Unavailable Solomon POLO MD Unavailable Unavailable CHRIST H ASHLEIGH FAIRCHILD Unavailable Unavailable Solomon POLO MD Unavailable Unavailable Solomon POLO MD Unavailable Unavailable CHRIST H ASHLEIGH FAIRCHILD Unavailable Unavailable Solomon POLO MD Unavailable Unavailable Solomon POLO MD Unavailable Unavailable Solomon POLO MD Unavailable Unavailable Solomon POLO MD Unavailable Unavailable Solomon POLO MD Unavailable Unavailable Solomon POLO MD Unavailable Unavailable Solomon POLO MD Unavailable Unavailable Solomon POLO MD Unavailable Unavailable Solomon POLO MD Unavailable Unavailable Solomon POLO MD Unavailable Unavailable Solomon POLO MD Unavailable Unavailable Solomon POLO MD Unavailable Unavailable Solomon POLO MD Unavailable Unavailable Solomon POLO MD Unavailable Unavailable Solomon POLO MD Unavailable Unavailable Solomon POLO MD Unavailable Unavailable Solomon POLO MD Unavailable Unavailable Solomon POLO MD Unavailable Unavailable Solomon POLO MD Unavailable Unavailable Solomon POLO MD Unavailable Unavailable Solomon POLO MD Unavailable Unavailable Solomon POLO MD Unavailable Unavailable Solomon POLO MD Unavailable Unavailable Solomon POLO MD Unavailable Unavailable Solomon POLO MD Unavailable Unavailable Solomon POLO MD Unavailable Unavailable Solomon POLO MD Unavailable Unavailable Solomon POLO MD Unavailable Unavailable Solomon POLO MD Unavailable Unavailable Solomon POLO MD Unavailable Unavailable Solomon POLO MD Unavailable Unavailable Solomon POLO MD Unavailable Unavailable Solomon POLO MD Unavailable Unavailable Solomon POLO MD Unavailable Unavailable Solomon POLO MD Unavailable Unavailable Solomon POLO MD Unavailable Unavailable Solomon POLO MD Unavailable Unavailable Solomon POLO MD Unavailable Unavailable Solomon POLO MD Unavailable Unavailable Solomon POLO MD Unavailable Unavailable Re-disclosure Warning The records that you are about to access may contain information from federally-assisted alcohol or drug abuse programs. If such information is present, then the following federally mandated warning applies: This information has been disclosed to you from records protected by federal confidentiality rules (42 CFR part 2). The federal rules prohibit you from making any further disclosure of this information unless further disclosure is expressly permitted by the written consent of the person to whom it pertains or as otherwise permitted by 42 CFR part 2. A general authorization for the release of medical or other information is NOT sufficient for this purpose. The Federal rules restrict any use of the information to criminally investigate or prosecute any alcohol or drug abuse patient.The records that you are about to access may contain highly sensitive health information, the redisclosure of which is protected by Article 27-F of the [facility] Public Health law. If you continue you may have access to information: Regarding HIV / AIDS; Provided by facilities licensed or operated by the [facility] Office of Mental Health; or Provided by the [facility] Office for People With Developmental Disabilities. If such information is present, then the following [facility] mandated warning applies: This information has been disclosed to you from confidential records which are protected by state law. State law prohibits you from making any further disclosure of this information without the specific written consent of the person to whom it pertains, or as otherwise permitted by law. Any unauthorized further disclosure in violation of state law may result in a fine or half-way sentence or both. A general authorization for the release of medical or other information is NOT sufficient authorization for further disc losure. Family History Family Member Name Family Member Gender Family Member Status Date o f Status Description Data Source(s) Unknown Unknown Problem [facility] ([facility] Unknown Unknown Problem [facility] ([facility] ) mother Dx age 91 Encounters Encounter Providers Location Date Indications Data Source(s ) Outpatient Attender: ASHLEIGH POLO MD [place] [facility] 01:00:00 PM EST [facility] ([facility] Outpatient Attender: ASHLEIGH [place] [facility] 12:30:00 PM EST [facility] ([facility] Office Visit Attender: DARIN PAINTING MD Main [facility] 02/23/2020 07:15:00 AM EST [facility] ([facility] Outpatient Attender: ASHLEIGH POLO MD [place] [facility] 02:45:00 PM EDT [facility] ([facility] Outpatient Attender: Eboni HAYES Main Office 02/05/2020 01:00:00 PM EDT [facility] ([facility]) Outpatient Attender: ASHLEIGH POLO MD [place] [facility] 11/2019 02:30:00 PM EDT MED[facility] Outpatient Attender: DARIN PAINTING MD Main office - [facility] 12/01/2019 02:00:00 PM EDT [facility] ([facility] Outpatient Attender: ASHLEIGH POLO MD [place] [facility] 08/2019 03:40:00 PM EDT [facility] ([facility] Outpatient Attender: ASHLEIGH [place] [facility] 02:30:00 PM EDT [facility] ([facility] Outpatient Attender: Eboni HAYES Main Office 08/06/2019 11:30:00 AM EDT [facility] ([facility]) Medications Medication Brand Name Start Date Product Form Dose Route Admi nistrative Instructions Pharmacy Instructions Status Indications Reaction Description Data Source(s) Metolazone 2.5 MG Oral Tablet Metolazone ORAL acti ve [facility] ([facility] 60 ACTUAT Albuterol 0.09 MG/ACTUAT Metered Dose Inhaler Albu terol Sulfate HFA 02/10/2020 12:00:00 AM EDT RESPIRATORY active [facility] ([facility] torsemide 20 MG Oral Tablet Torsemide 02/04/2020 12:00:00 AM EDT ORAL active [facility] ([facility]) Carbidopa 25 MG / Levodopa 100 MG Oral Tablet Carbidopa-Levo dopa 02/04/2020 12:00:00 AM EDT ORAL active M EDENT ([facility]) Klor-Con M20 Klor-Con M20 02/04/2020 12:00:00 AM EDT ORAL active [facility] ([facility]) Metolazone 2.5 MG Oral Tablet Metolazone 02/04/2020 12:00:00 AM EDT ORAL active [facility] ([facility]) Warfarin Sodium 5 MG Oral Tablet Warfarin Sodium 01/05/2020 12:00:00 AM EDT ORAL active [facility] ([facility] Carbidopa 25 MG / Levodopa 100 MG Oral Tablet [Sinemet] Sine met 12/04/2019 12:00:00 AM EDT ORAL active M EDENT ([facility]) Wixela Inhub Wixela Inhub 08/28/2019 12:00:00 AM EDT active [facility] ([facility] Wixela Inhub Wixela Inhub 08/06/2019 12:00:00 AM EDT completed [facility] ([facility] Fluticasone propionate 0.5 MG/ML Topical Cream Fluticasone P ropionate 08/06/2019 12:00:00 AM EDT completed [facility] ([facility] Wixela Inhub Wixela Inhub 08/05/2019 12:00:00 AM EDT active [facility] ([facility]) Fluticasone propionate 0.5 MG/ML Topical Cream Fluticasone P ropionate 08/05/2019 12:00:00 AM EDT active [facility] ([facility]) Insurance Providers Payer name Policy type / Coverage type Policy ID Covered republican ID Covered republican's relationship to luz Policy Luz Plan Information AARP HE[employer] CARE OPTIONS [id number] SP [id number] MEDICARE [id number] SP [id number] AARP O [id number] S [id number] MEDICARE C [id number] S [id number] MEDICARE COMPLETE [id number] SP [id number] [facility] Part B [id number] Self [id number] BC/[facility] Part B [id number] Self [id number] [employer] Commercial [id number] Self [id number] [employer] BC/BS [facility] Part B [id number] Self [id number] BCBS Medicare Blue U/W Commercial [id number] Self [id number] [employer] Commercial [id number] Self [id number] MVP Commercial [id number] Self [id number] BC/BS [facility] Part B [id number] Self [id number] BC/BS [facility] Part B [id number] Self [id number] [employer] Commercial [id number] Self [id number] [employer] BC/BS [facility] Part B [id number] Self [id number] BCBS Medicare Blue U/W Commercial [id number] Self [id number] [employer] Commercial [id number] Self [id number] BC/BS [facility] Part B [id number] Self [id number] BC/BS [facility] Part B [id number] Self [id number] [employer] Commercial [id number] Self [id number] [employer] BC/BS [facility] Part B [id number] Self [id number] BCBS Medicare Blue U/W Commercial [id number] Self [id number] [employer] Commercial [id number] Self [id number] BC/BS [facility] Part B [id number] Self [id number] BC/BS [facility] Part B [id number] Self [id number] [employer] Commercial [id number] Self [id number] [employer] [facility] [id number] Self [id number] BCBS Medicare Blue U/W Commercial [id number] Self [id number] [employer] Commercial [id number] Self [id number] [facility] [id number] Self [id number] [facility] [id number] Self [id number] [employer] Commercial [id number] Self [id number] [employer] BC/BS [facility] Part B [id number] Self [id number] BCBS Medicare Blue U/W Commercial [id number] Self [id number] [employer] Commercial [id number] Self [id number] BC/BS [facility] Part B [id number] Self [id number] BC/BS [facility] Part B [id number] Self [id number] [employer] Commercial [id number] Self [id number] [employer] BC/BS [facility] Part B [id number] Self [id number] BCBS Medicare Blue U/W Commercial [id number] Self [id number] [employer] Commercial [id number] Self [id number] BC/BS [facility] Part B [id number] Self [id number] BC/BS [facility] Part B [id number] Self [id number] [employer] Commercial [id number] Self [id number] [employer] BC/BS [facility] Part B [id number] Self [id number] BCBS Medicare Blue U/W Commercial [id number] Self [id number] [employer] Commercial [id number] Self [id number] BC/BS [facility] Part B [id number] Self [id number] BC/BS [facility] Part B [id number] Self [id number] [employer] Commercial [id number] Self [id number] [employer] BC/BS [facility] Part B [id number] Self [id number] BCBS Medicare Blue U/W Commercial [id number] Self [id number] [employer] Commercial [id number] Self [id number] Medicare Blue Ppo Commercial [id number] Self [id number] [facility] Medicare Commercial [id number] Self [id number] MEDICARE COMPLETE [id number] SP [id number] MEDICARE COMPLETE-[facility] [id number] S [id number] MEDICARE [id number] SP [id number] MEDICARE COMPLETE [id number] SP [id number] BC/BS [facility] Part B [id number] Self [id number] BC/BS [facility] Part B [id number] Self [id number] [employer] Commercial [id number] Self [id number] [employer] BC/BS [facility] Part B [id number] Self [id number] BCBS Medicare Blue U/W Commercial [id number] Self [id number] [facility] Commercial [id number] Self [id number] Medicare Blue Ppo Commercial [id number] Self [id number] [facility] Medicare Commercial [id number] Self [id number] BC/BS [facility] Part B [id number] Self [id number] BC/BS [facility] Part B [id number] Self [id number] [employer] Commercial [id number] Self [id number] [employer] BC/BS [facility] Part B [id number] Self [id number] BCBS Medicare Blue U/W Commercial [id number] Self [id number] [facility] Commercial [id number] Self [id number] [facility] Commercial Self BCBS Medicare Blue U/W Commercial Self [employer] Commercial Self BC/BS [facility] Part B Self BC/BS [facility] Part B Self [employer] Commercial Self Excell[employer] BC/BS [facility] Part B Self [facility] MEDICARE [id number] Kandace [id number] [facility]-Medicare Solutions Commercial Self MEDICARE BLUE PPO 306 [id number] SP [id number] [facility] [id number] SP [id number] MEDICARE BLUE PPO 306 [id number] SP [id number] BCBS - Medicare Blue Ppo Commercial Self [employer]LL[employer] BCBS P [id number] S [id number] EX[employer] BCBS P [id number] S [id number] [employer] BCBS P UNAVAILABLE S UNAV AILABLE [id number] Problems, Conditions, and Diagnoses Code Display Name Description Problem Type Effective Dates Data Source(s) 43032329 Tremor Tremor Problem 12/01/2019 12:00:00 AM ED Jing SNYDER ([facility] ) Surgeries/Procedures Procedure Description Date Indications Data Source(s) Anticoagulant MGMT For Patient Taking Warfarin, Inc Review & Intr 03/25/2020 12:00:00 AM EST [facility] ([facility]) Anticoagulant MGMT For Patient Taking Warfarin, Inc Review & Intr 02/26/2020 12:00:00 AM EST [facility] ([facility]) TSTG ANS FUNCJ CARDIOVAGAL INNERVAJ PARASYMP 0 12:00:00 AM EDT MEDENT ([facility] ) TSTG ANS FUNCJ CARDIOVAGAL INNERVAJ PARASYMP 0 12:00:00 AM EDT MED[facility] ([facility] ) TESTING AUTONOMIC NERVOUS SYSTEM FUNCTION 02/20/2020 1 2:00:00 AM EDT MED[facility] ([facility] ) TESTING AUTONOMIC NERVOUS SYSTEM FUNCTION 02/20/2020 1 2:00:00 AM EDT MED[facility] ([facility] ) ELECTROENCEPHALOGRAM W/REC AWAKE&ASLEEP 02/19/2020 12: 00:00 AM EDT MED[facility] ([facility] ) ELECTROENCEPHALOGRAM W/REC AWAKE&ASLEEP 02/19/2020 12: 00:00 AM EDT MED[facility] ([facility] ) Anticoagulant MGMT For Patient Taking Warfarin, Inc Review & Intr 02/10/2020 12:00:00 AM EDT [facility] ([facility]) ECG ROUTINE ECG W/LEAST 12 LDS W/I&R 02/05/2020 12:00: 00 AM EDT [facility] ([facility]) Anticoagulant MGMT For Patient Taking Warfarin, Inc Review & Intr 01/12/2020 12:00:00 AM EDT [facility] ([facility]) Anticoagulant MGMT For Patient Taking Warfarin, Inc Review & Intr 12/23/2019 12:00:00 AM EDT [facility] ([facility]) MRI BRAIN BRAIN STEM W/O CONTRAST MATERIAL 12/13/2019 12:00:00 AM EDT MED[facility] ([facility] ) MRI BRAIN BRAIN STEM W/O CONTRAST MATERIAL 12/13/2019 12:00:00 AM EDT MED[facility] ([facility] ) MRI SPINAL CANAL LUMBAR W/O CONTRAST MATERIAL 12/13/19 20 12:00:00 AM EDT MED[facility] ([facility] ) MRI SPINAL CANAL LUMBAR W/O CONTRAST MATERIAL 12/13/19 12:00:00 AM EDT MED[facility] ([facility] ) Anticoagulant MGMT For Patient Taking Warfarin, Inc Review & Intr 12/12/2019 12:00:00 AM EDT [facility] ([facility]) Needle electromyography, each extremity, with related paraspinal areas, when performed, done with nerve conduction, amplitude and latency/velocity study; complete, five or more muscles studied, innervated by three or more nerves or four or more spinal levels (list separately in addition to the code for primary procedure). 12/08/2019 12:00:00 AM EDT MEDEN T ([facility], ) Needle electromyography, each extremity, with related paraspinal areas, when performed, done with nerve conduction, amplitude and latency/velocity study; complete, five or more muscles studied, innervated by three or more nerves or four or more spinal levels (list separately in addition to the code for primary procedure). 12/08/2019 12:00:00 AM EDT MEDEN T ([facility], ) 08102 Nerve conduction studies 13 or more studies NEW 201212/08/2019 12:00:00 AM EDT MED[facility] ([facility] ) Anticoagulant MGMT For Patient Taking Warfarin, Inc Review & Intr 11/10/2019 12:00:00 AM EDT [facility] ([facility]) Anticoagulant MGMT For Patient Taking Warfarin, Inc Review & Intr 10/21/2019 12:00:00 AM EDT [facility] ([facility]) Anticoagulant MGMT For Patient Taking Warfarin, Inc Review & Intr 10/14/2019 12:00:00 AM EDT [facility] ([facility]) Anticoagulant MGMT For Patient Taking Warfarin, Inc Review & Intr 09/29/2019 12:00:00 AM EDT [facility] ([facility]) Anticoagulant MGMT For Patient Taking Warfarin, Inc Review & Intr 09/03/2019 12:00:00 AM EDT [facility] ([facility]) Anticoagulant MGMT For Patient Taking Warfarin, Inc Review & Intr 08/21/2019 12:00:00 AM EDT [facility] ([facility]) ECG ROUTINE ECG W/LEAST 12 LDS W/I&R 08/06/2019 12:00: 00 AM EDT [facility] ([facility]) Anticoagulant MGMT For Patient Taking Warfarin, Inc Review & Intr 07/16/2019 12:00:00 AM EDT [facility] ([facility]) Anticoagulant MGMT For Patient Taking Warfarin, Inc Review & Intr 06/23/2019 12:00:00 AM EST [facility] ([facility]) Anticoagulant MGMT For Patient Taking Warfarin, Inc Review & Intr 05/28/2019 12:00:00 AM EST [facility] ([facility]) Anticoagulant MGMT For Patient Taking Warfarin, Inc Review & Intr 05/06/2019 12:00:00 AM EST [facility] ([facility]) Anticoagulant MGMT For Patient Taking Warfarin, Inc Review & Intr 04/29/2019 12:00:00 AM EST [facility] ([facility]) Anticoagulant MGMT For Patient Taking Warfarin, Inc Review & Intr 04/02/2019 12:00:00 AM EST [facility] ([facility]) Results ID Date Data Source [id number] 04/29/2020 05:38:00 PM EST [facility] Name Value Range Interpretation Code Description Data Annette rce(s) Supporting Document(s) SARS-CoV-2 (COVID 19) NEGATIVE - SARS-CoV-2 (COVID19) [facility] This lab was ordered by [facility] a nd reported by [facility]. ID Date Data Source [id number] 04/12/2020 09:51:00 AM EST [facility] [place] Value Range Interpretation Code Description Data Annette rce(s) Supporting Document(s) Prothrombin Time 27.0 s 12.5-14.3 [facility] ([facility]) Inr 2.43 [facility] ([facility]) THERAPUTIC HUMAN INR VALUES INDICATIONS NORMAL RANGES PROPHYLAXIS/TREATMENT OF: VENOUS THROMBOSIS 2.0-3.0 PULMONARY EMBOLISM 2.0-3.0 PREVENTION OF SYSTEMIC EMBOLISM FROM: TISSUE HEART VALVES 2.0-3.0 ACUTE MYOCARDIAL INFARCTION 2.0-3.0 VALVULAR HEART DISEASE 2.0-3.0 ATRIAL FIBRILLATION 2.0-3.0 MECHANICAL VALVES(HIGH RISK) 2.5-3.5 RECURRENT MYOCARDIAL INFARCTION 2.5-3.5 ID Date Data Source [id number] 04/12/2020 09:51:00 AM EST [facility] ([facility] Name Value Range Interpretation Code Description Data Annette rce(s) Supporting Document(s) Inr 2.43 Normal (applies to non-numeric resul ts) [facility] ([facility] THERAPUTIC HUMAN INR VALUES INDICATIONS NORMAL RANGES PROPHYLAXIS/TREATMENT OF: VENOUS THROMBOSIS 2.0-3.0 PULMONARY EMBOLISM 2.0-3.0 PREVENTION OF SYSTEMIC EMBOLISM FROM: TISSUE HEART VALVES 2.0-3.0 ACUTE MYOCARDIAL INFARCTION 2.0-3.0 VALVULAR HEART DISEASE 2.0-3.0 ATRIAL FIBRILLATION 2.0-3.0 MECHANICAL VALVES(HIGH RISK) 2.5-3.5 RECURRENT MYOCARDIAL INFARCTION 2.5-3.5 Prothrombin Time 27.0 s 12.5-14.3 Above high normal M [facility] ([facility] ID Date Data Source [id number] 04/07/2020 02:05:00 PM EST [facility] ([facility] Name Value Range Interpretation Code Description Data Annette e(s) Supporting Document(s) WBC 7.8 10E3/uL 4.1-10.9 [facility] ([facility] NORMAL RANGES Age WBC RBC HGB HCT [...] HCT IS 5% LESS SOURCE FOR DATA: Enlighted 1800 OPERATION MANUAL( AUTOMATED BLOOD COUNTS AND [...] Normal 80 and above >32 mL/min Normal HGB 11.5 g/dL 12.0-18.0 Below low normal [facility] ( [facility] NORMAL RANGES Age WBC RBC HGB HCT [...] HCT IS 5% LESS SOURCE FOR DATA: Enlighted 1800 OPERATION MANUAL( AUTOMATED BLOOD COUNTS AND [...] Normal 80 and above >32 mL/min Normal RBC 3.45 10E6/uL 4.20-6.30 Below low normal [facility] ([facility] NORMAL RANGES Age WBC RBC HGB HCT [...] HCT IS 5% LESS SOURCE FOR DATA: Enlighted 1800 OPERATION MANUAL( AUTOMATED BLOOD COUNTS AND [...] Normal 80 and above >32 mL/min Normal MCV 100.6 fL 80.0-97.0 Above high normal [facility] ([facility] NORMAL RANGES Age WBC RBC HGB HCT [...] HCT IS 5% LESS SOURCE FOR DATA: Enlighted 1800 OPERATION MANUAL( AUTOMATED BLOOD COUNTS AND [...] Normal 80 and above >32 mL/min Normal HCT 34.7 % 37.0-51.0 Below low normal [facility] ( [facility] NORMAL RANGES Age WBC RBC HGB HCT [...] HCT IS 5% LESS SOURCE FOR DATA: Enlighted 1800 OPERATION MANUAL( AUTOMATED BLOOD COUNTS AND [...] Normal 80 and above >32 mL/min Normal MCHC 33.1 g/dL 31.0-36.0 [facility] ([facility] NORMAL RANGES Age WBC RBC HGB HCT [...] HCT IS 5% LESS SOURCE FOR DATA: Enlighted 1800 OPERATION MANUAL( AUTOMATED BLOOD COUNTS AND [...] Normal 80 and above >32 mL/min Normal PLT 205 10E3/uL 140-440 [facility] NORMAL RANGES Age WBC RBC HGB HCT [...] HCT IS 5% LESS SOURCE FOR DATA: Enlighted 1800 OPERATION MANUAL( AUTOMATED BLOOD COUNTS AND [...] Normal 80 and above >32 mL/min Normal MCH 33.3 pg 26.0-32.0 Above high normal [facility] ([facility] NORMAL RANGES Age WBC RBC HGB HCT [...] Normal 80 and above >32 mL/min Normal RDW-CV 16.1 % 11.5-14.5 Above high normal [facility] ([facility] NORMAL RANGES Age WBC RBC HGB HCT [...] HCT IS 5% LESS SOURCE FOR DATA: Enlighted 1800 OPERATION MANUAL( AUTOMATED BLOOD COUNTS AND [...] Normal 80 and above >32 mL/min Normal Lym% 9.2 % 10.0-58.5 Below low normal [facility] ( [facility] NORMAL RANGES Age WBC RBC HGB HCT [...] HCT IS 5% LESS SOURCE FOR DATA: Enlighted 1800 OPERATION MANUAL( AUTOMATED BLOOD COUNTS AND [...] Normal 80 and above >32 mL/min Normal Neut% 77.1 % 37.0-92.0 [facility] ([facility] NORMAL RANGES Age WBC RBC HGB HCT [...] HCT IS 5% LESS SOURCE FOR DATA: Enlighted 1800 OPERATION MANUAL( AUTOMATED BLOOD COUNTS AND [...] Normal 80 and above >32 mL/min Normal MXD% 13.7 % 0.1-24.0 [facility] ([facility] NORMAL RANGES Age WBC RBC HGB HCT [...] HCT IS 5% LESS SOURCE FOR DATA: Enlighted 1800 OPERATION MANUAL( AUTOMATED BLOOD COUNTS AND [...] Normal 80 and above >32 mL/min Normal MXD# 1.1 10E3/uL 0.0-1.8 [facility] ([facility] NORMAL RANGES Age WBC RBC HGB HCT [...] HCT IS 5% LESS SOURCE FOR DATA: Enlighted 1800 OPERATION MANUAL( AUTOMATED BLOOD COUNTS AND [...] Normal 80 and above >32 mL/min Normal Neut# 6.0 % 2.0-7.8 [facility] ([facility] NORMAL RANGES Age WBC RBC HGB HCT [...] HCT IS 5% LESS SOURCE FOR DATA: Enlighted 1800 OPERATION MANUAL( AUTOMATED BLOOD COUNTS AND [...] Normal 80 and above >32 mL/min Normal Lym# 0.7 10E3/uL 0.6-4.1 [facility] ([facility] NORMAL RANGES Age WBC RBC HGB HCT [...] HCT IS 5% LESS SOURCE FOR DATA: Enlighted 1800 OPERATION MANUAL( AUTOMATED BLOOD COUNTS AND [...] Normal 80 and above >32 mL/min Normal MPV 11.0 fL 9.0-13.0 [facility] ([facility] NORMAL RANGES Age WBC RBC HGB HCT [...] HCT IS 5% LESS SOURCE FOR DATA: Enlighted 1800 OPERATION MANUAL( AUTOMATED BLOOD COUNTS AND [...] Normal 80 and above >32 mL/min Normal ID Date Data Source [id number] 04/07/2020 02:05:00 PM EST [facility] ([facility] Name Value Range Interpretation Code Description Data Annette rce(s) Supporting Document(s) BUN 41 mg/dL 8-23 Above high normal [facility] ([facility] NORMAL RANGES Age WBC RBC HGB HCT [...] HCT IS 5% LESS SOURCE FOR DATA: [employer] DYN 1800 OPERATION MANUAL( AUTOMATED BLOOD COUNTS [...] Normal 80 and above >32 mL/min Normal Glu 87 mg/dL 70-110 [facility] ([facility] NORMAL RANGES Age WBC RBC HGB HCT [...] HCT IS 5% LESS SOURCE FOR DATA: Enlighted 1800 OPERATION MANUAL( AUTOMATED BLOOD COUNTS AND [...] Normal 80 and above >32 mL/min Normal BUN/Creatinine Ratio 30.6 [facility]C [facility] NORMAL RANGES Age WBC RBC HGB HCT [...] HCT IS 5% LESS SOURCE FOR DATA: Enlighted 1800 OPERATION MANUAL( AUTOMATED BLOOD COUNTS AND [...] Normal 80 and above >32 mL/min Normal Creat 1.3 mg/dL 0.7-1.2 Above high normal [facility] ([facility] NORMAL RANGES Age WBC RBC HGB HCT [...] HCT IS 5% LESS SOURCE FOR DATA: Enlighted 1800 OPERATION MANUAL( AUTOMATED BLOOD COUNTS AND [...] Normal 80 and above >32 mL/min Normal CA 9.0 mg/dL 8.6-10.2 [facility] ([facility] NORMAL RANGES Age WBC RBC HGB HCT [...] HCT IS 5% LESS SOURCE FOR DATA: Enlighted 1800 OPERATION MANUAL( AUTOMATED BLOOD COUNTS AND [...] Normal 80 and above >32 mL/min Normal Co2 28.1 mmol/L 22.0-29.0 [facility] ([facility] NORMAL RANGES Age WBC RBC HGB HCT [...] HCT IS 5% LESS SOURCE FOR DATA: Enlighted 1800 OPERATION MANUAL( AUTOMATED BLOOD COUNTS AND [...] Normal 80 and above >32 mL/min Normal Na 138 mmol/L 136-145 [facility] ([facility] NORMAL RANGES Age WBC RBC HGB HCT [...] HCT IS 5% LESS SOURCE FOR DATA: Enlighted 1800 OPERATION MANUAL( AUTOMATED BLOOD COUNTS AND [...] Normal 80 and above >32 mL/min Normal K 3.8 mmol/L 3.5-5.1 [facility] ([facility] NORMAL RANGES Age WBC RBC HGB HCT [...] HCT IS 5% LESS SOURCE FOR DATA: Enlighted 1800 OPERATION MANUAL( AUTOMATED BLOOD COUNTS AND [...] Normal 80 and above >32 mL/min Normal Anion Gap 15 mmol/L [facility] NORMAL RANGES Age WBC RBC HGB HCT [...] HCT IS 5% LESS SOURCE FOR DATA: Enlighted 1800 OPERATION MANUAL( AUTOMATED BLOOD COUNTS AND [...] Normal 80 and above >32 mL/min Normal CL 98.2 mmol/L 98.0-107.0 [employer] ([facility] NORMAL RANGES Age WBC RBC HGB HCT [...] Normal 80 and above >32 mL/min Normal eGFR 60 # [facility] ( [facility] NORMAL RANGES Age WBC RBC HGB HCT [...] HCT IS 5% LESS SOURCE FOR DATA: Enlighted 1800 OPERATION MANUAL( AUTOMATED BLOOD COUNTS AND [...] Normal 80 and above >32 mL/min Normal eGFR Non-Afr. Welsh 52 # [facility] ([facility] NORMAL RANGES Age WBC RBC HGB HCT MCV PLT Adult M 4.1-10.9 4.20-6.30 12.0-18.0 37.0-51.0 80-97 140-440 Adult F 4.1-10.9 4.04-5.48 12.0-18.0 37.0-51.0 80- 140-440 0 -1 Yr 5.0-20.0 3.9-5.9 15-18 [...] HCT IS 5% LESS SOURCE FOR DATA: Enlighted 1800 OPERATION MANUAL( AUTOMATED BLOOD COUNTS AND [...] Normal 80 and above >32 mL/min Normal ID Date Data Source [id number] 03/25/2020 11:05:00 AM EST [facility] Name Value Range Interpretation Code Description Data Annette rce(s) Supporting Document(s) Inr 3.38 [facility] ([facility]) THERAPUTIC HUMAN INR VALUES INDICATIONS NORMAL RANGES PROPHYLAXIS/TREATMENT OF: VENOUS THROMBOSIS 2.0-3.0 PULMONARY EMBOLISM 2.0-3.0 PREVENTION OF SYSTEMIC EMBOLISM FROM: TISSUE HEART VALVES 2.0-3.0 ACUTE MYOCARDIAL INFARCTION 2.0-3.0 VALVULAR HEART DISEASE 2.0-3.0 ATRIAL FIBRILLATION 2.0-3.0 MECHANICAL VALVES(HIGH RISK) 2.5-3.5 RECURRENT MYOCARDIAL INFARCTION 2.5-3.5 Prothrombin Time 35.0 s 12.5-14.3 [facility] ([facility]) ID Date Data Source [id number] 03/25/2020 11:05:00 AM EST MED[facility] ([facility] Name Value Range Interpretation Code Description Data Annette rce(s) Supporting Document(s) Prothrombin Time 35.0 s 12.5-14.3 Above high normal M EDENT ([facility] Inr 3.38 Normal (applies to non-numeric resul ts) [facility] ([facility] THERAPUTIC HUMAN INR VALUES INDICATIONS NORMAL RANGES PROPHYLAXIS/TREATMENT OF: VENOUS THROMBOSIS 2.0-3.0 PULMONARY EMBOLISM 2.0-3.0 PREVENTION OF SYSTEMIC EMBOLISM FROM: TISSUE HEART VALVES 2.0-3.0 ACUTE MYOCARDIAL INFARCTION 2.0-3.0 VALVULAR HEART DISEASE 2.0-3.0 ATRIAL FIBRILLATION 2.0-3.0 MECHANICAL VALVES(HIGH RISK) 2.5-3.5 RECURRENT MYOCARDIAL INFARCTION 2.5-3.5 ID Date Data Source [id number] 03/01/2020 09:02:00 AM EST [facility] ([facility] Name Value Range Interpretation Code Description Data Annette [facility](s) Supporting Document(s) Chol 140 mg/dL 0-200 [facility] ([facility] NORMAL RANGES Age WBC RBC HGB HCT [...] HCT IS 5% LESS SOURCE FOR DATA: Enlighted 1800 OPERATION MANUAL( AUTOMATED BLOOD COUNTS AND [...] DESIRABLE: <130 MG/DL <110 MG/DL BORDERLINE-HIGH RISK: 130- 159 MG/DL 110-129 MG/DL HIGH RISK: >160 MG/DL >130 MG/DL *CHILDREN AND ADOLESCENTS REPRESENTS INDIVIDUALA AGED 2-19 YEARS EXCLUSIVE. Trig 110 mg/dL 35-200 [facility] ([facility] NORMAL RANGES Age WBC RBC HGB HCT [...] HCT IS 5% LESS SOURCE FOR DATA: Enlighted 1800 OPERATION MANUAL( AUTOMATED BLOOD COUNTS AND [...] DESIRABLE: <130 MG/DL <110 MG/DL BORDERLINE-HIGH RISK: 130- 159 MG/DL 110-129 MG/DL HIGH RISK: >160 MG/DL >130 MG/DL *CHILDREN AND ADOLESCENTS REPRESENTS INDIVIDUALA AGED 2-19 YEARS EXCLUSIVE. LDL_C 86 Calc 75-129 [facility] NORMAL RANGES Age WBC RBC HGB HCT [...] HCT IS 5% LESS SOURCE FOR DATA: Enlighted 1800 OPERATION MANUAL( AUTOMATED BLOOD COUNTS AND [...] DESIRABLE: <130 MG/DL <110 MG/DL BORDERLINE-HIGH RISK: 130- 159 MG/DL 110-129 MG/DL HIGH RISK: >160 MG/DL >130 MG/DL *CHILDREN AND ADOLESCENTS REPRESENTS INDIVIDUALA AGED 2-19 YEARS EXCLUSIVE. Cholesterol in HDL [Mass/volume] in Serum or Plasma 32 mg/dL 35-55 Below low normal [facility] ([facility] NORMAL RANGES Age WBC RBC HGB HCT [...] HCT IS 5% LESS SOURCE FOR DATA: Enlighted 1800 OPERATION MANUAL( AUTOMATED BLOOD COUNTS AND [...] DESIRABLE: <130 MG/DL <110 MG/DL BORDERLINE-HIGH RISK: 130- 159 MG/DL 110-129 MG/DL HIGH RISK: >160 MG/DL >130 MG/DL *CHILDREN AND ADOLESCENTS REPRESENTS INDIVIDUALA AGED 2-19 YEARS EXCLUSIVE. Cho/HDL Ratio 4.4 CALC [facility] ([facility] NORMAL RANGES Age WBC RBC HGB HCT [...] HCT IS 5% LESS SOURCE FOR DATA: Enlighted 1800 OPERATION MANUAL( AUTOMATED BLOOD COUNTS AND [...] DESIRABLE: <130 MG/DL <110 MG/DL BORDERLINE-HIGH RISK: 130- 159 MG/DL 110-129 MG/DL HIGH RISK: >160 MG/DL >130 MG/DL *CHILDREN AND ADOLESCENTS REPRESENTS INDIVIDUALA AGED 2-19 YEARS EXCLUSIVE. ID Date Data Source [id number] 03/01/2020 09:02:00 AM EST [facility] ([facility] Name Value Range Interpretation Code Description Data Annette rce(s) Supporting Document(s) BUN 35 mg/dL 8-23 Above high normal [facility] ([facility] NORMAL RANGES Age WBC RBC HGB HCT [...] DESIRABLE: <130 MG/DL <110 MG/DL BORDERLINE-HIGH RISK: 130- 159 MG/DL 110-129 MG/DL HIGH RISK: >160 MG/DL >130 MG/DL *CHILDREN AND ADOLESCENTS REPRESENTS INDIVIDUALA AGED 2-19 YEARS EXCLUSIVE. Glu 98 mg/dL 70-110 [facility] ([facility] NORMAL RANGES Age WBC RBC HGB HCT [...] HCT IS 5% LESS SOURCE FOR DATA: Enlighted 1800 OPERATION MANUAL( AUTOMATED BLOOD COUNTS AND [...] DESIRABLE: <130 MG/DL <110 MG/DL BORDERLINE-HIGH RISK: 130- 159 MG/DL 110-129 MG/DL HIGH RISK: >160 MG/DL >130 MG/DL *CHILDREN AND ADOLESCENTS REPRESENTS INDIVIDUALA AGED 2-19 YEARS EXCLUSIVE. BUN/Creatinine Ratio 24.6 CALC [facility] ([facility] NORMAL RANGES Age WBC RBC HGB HCT [...] HCT IS 5% LESS SOURCE FOR DATA: Enlighted 1800 OPERATION MANUAL( AUTOMATED BLOOD COUNTS AND [...] DESIRABLE: <130 MG/DL <110 MG/DL BORDERLINE-HIGH RISK: 130- 159 MG/DL 110-129 MG/DL HIGH RISK: >160 MG/DL >130 MG/DL *CHILDREN AND ADOLESCENTS REPRESENTS INDIVIDUALA AGED 2-19 YEARS EXCLUSIVE. Creat 1.4 mg/dL 0.7-1.2 Above high normal [facility] ([facility] NORMAL RANGES Age WBC RBC HGB HCT [...] HCT IS 5% LESS SOURCE FOR DATA: Enlighted 1800 OPERATION MANUAL( AUTOMATED BLOOD COUNTS AND [...] DESIRABLE: <130 MG/DL <110 MG/DL BORDERLINE-HIGH RISK: 130- 159 MG/DL 110-129 MG/DL HIGH RISK: >160 MG/DL >130 MG/DL *CHILDREN AND ADOLESCENTS REPRESENTS INDIVIDUALA AGED 2-19 YEARS EXCLUSIVE. Na 138 mmol/L 136-145 [facility] ([facility] NORMAL RANGES Age WBC RBC HGB HCT [...] HCT IS 5% LESS SOURCE FOR DATA: Enlighted 1800 OPERATION MANUAL( AUTOMATED BLOOD COUNTS AND [...] DESIRABLE: <130 MG/DL <110 MG/DL BORDERLINE-HIGH RISK: 130- 159 MG/DL 110-129 MG/DL HIGH RISK: >160 MG/DL >130 MG/DL *CHILDREN AND ADOLESCENTS REPRESENTS INDIVIDUALA AGED 2-19 YEARS EXCLUSIVE. K 4.3 mmol/L 3.5-5.1 [facility] ([facility] NORMAL RANGES Age WBC RBC HGB HCT [...] HCT IS 5% LESS SOURCE FOR DATA: Enlighted 1800 OPERATION MANUAL( AUTOMATED BLOOD COUNTS AND [...] DESIRABLE: <130 MG/DL <110 MG/DL BORDERLINE-HIGH RISK: 130- 159 MG/DL 110-129 MG/DL HIGH RISK: >160 MG/DL >130 MG/DL *CHILDREN AND ADOLESCENTS REPRESENTS INDIVIDUALA AGED 2-19 YEARS EXCLUSIVE. CL 101.8 mmol/L 98.0-107.0 [facility] ([facility] NORMAL RANGES Age WBC RBC HGB HCT [...] HCT IS 5% LESS SOURCE FOR DATA: [employer] DYN 1800 OPERATION MANUAL( AUTOMATED BLOOD COUNTS [...] DESIRABLE: <130 MG/DL <110 MG/DL BORDERLINE-HIGH RISK: 130- 159 MG/DL 110-129 MG/DL HIGH RISK: >160 MG/DL >130 MG/DL *CHILDREN AND ADOLESCENTS REPRESENTS INDIVIDUALA AGED 2-19 YEARS EXCLUSIVE. Co2 24.3 mmol/L 22.0-29.0 [facility] ([facility] NORMAL RANGES Age WBC RBC HGB HCT [...] HCT IS 5% LESS SOURCE FOR DATA: Enlighted 1800 OPERATION MANUAL( AUTOMATED BLOOD COUNTS AND [...] DESIRABLE: <130 MG/DL <110 MG/DL BORDERLINE-HIGH RISK: 130- 159 MG/DL 110-129 MG/DL HIGH RISK: >160 MG/DL >130 MG/DL *CHILDREN AND ADOLESCENTS REPRESENTS INDIVIDUALA AGED 2-19 YEARS EXCLUSIVE. TP 6.2 g/dL 6.6-8.7 Below low normal [facility] ( [facility] NORMAL RANGES Age WBC RBC HGB HCT [...] HCT IS 5% LESS SOURCE FOR DATA: Enlighted 1800 OPERATION MANUAL( AUTOMATED BLOOD COUNTS AND [...] DESIRABLE: <130 MG/DL <110 MG/DL BORDERLINE-HIGH RISK: 130- 159 MG/DL 110-129 MG/DL HIGH RISK: >160 MG/DL >130 MG/DL *CHILDREN AND ADOLESCENTS REPRESENTS INDIVIDUALA AGED 2-19 YEARS EXCLUSIVE. CA 9.1 mg/dL 8.6-10.2 [facility] ([facility] NORMAL RANGES Age WBC RBC HGB HCT [...] HCT IS 5% LESS SOURCE FOR DATA: Enlighted 1800 OPERATION MANUAL( AUTOMATED BLOOD COUNTS AND [...] DESIRABLE: <130 MG/DL <110 MG/DL BORDERLINE-HIGH RISK: 130- 159 MG/DL 110-129 MG/DL HIGH RISK: >160 MG/DL >130 MG/DL *CHILDREN AND ADOLESCENTS REPRESENTS INDIVIDUALA AGED 2-19 YEARS EXCLUSIVE. Alb 3.7 g/dL 3.5-5.2 [facility] ([facility] NORMAL RANGES Age WBC RBC HGB HCT [...] HCT IS 5% LESS SOURCE FOR DATA: Enlighted 1800 OPERATION MANUAL( AUTOMATED BLOOD COUNTS AND [...] DESIRABLE: <130 MG/DL <110 MG/DL BORDERLINE-HIGH RISK: 130- 159 MG/DL 110-129 MG/DL HIGH RISK: >160 MG/DL >130 MG/DL *CHILDREN AND ADOLESCENTS REPRESENTS INDIVIDUALA AGED 2-19 YEARS EXCLUSIVE. A/G Ratio 1.5 CALC [facility] ([facility] NORMAL RANGES Age WBC RBC HGB HCT [...] HCT IS 5% LESS SOURCE FOR DATA: Enlighted 1800 OPERATION MANUAL( AUTOMATED BLOOD COUNTS AND [...] DESIRABLE: <130 MG/DL <110 MG/DL BORDERLINE-HIGH RISK: 130- 159 MG/DL 110-129 MG/DL HIGH RISK: >160 MG/DL >130 MG/DL *CHILDREN AND ADOLESCENTS REPRESENTS INDIVIDUALA AGED 2-19 YEARS EXCLUSIVE. Alp 66.3 U/L 40-129 [facility] NORMAL RANGES Age WBC RBC HGB HCT [...] HCT IS 5% LESS SOURCE FOR DATA: Enlighted 1800 OPERATION MANUAL( AUTOMATED BLOOD COUNTS AND [...] DESIRABLE: <130 MG/DL <110 MG/DL BORDERLINE-HIGH RISK: 130- 159 MG/DL 110-129 MG/DL HIGH RISK: >160 MG/DL >130 MG/DL *CHILDREN AND ADOLESCENTS REPRESENTS INDIVIDUALA AGED 2-19 YEARS EXCLUSIVE. Globulin 2.5 CALC [facility] ([facility] NORMAL RANGES Age WBC RBC HGB HCT [...] HCT IS 5% LESS SOURCE FOR DATA: Enlighted 1800 OPERATION MANUAL( AUTOMATED BLOOD COUNTS AND [...] DESIRABLE: <130 MG/DL <110 MG/DL BORDERLINE-HIGH RISK: 130- 159 MG/DL 110-129 MG/DL HIGH RISK: >160 MG/DL >130 MG/DL *CHILDREN AND ADOLESCENTS REPRESENTS INDIVIDUALA AGED 2-19 YEARS EXCLUSIVE. Alt (SGPT) 2 U/L 0-41 [facility] ([facility] NORMAL RANGES Age WBC RBC HGB HCT [...] HCT IS 5% LESS SOURCE FOR DATA: Enlighted 1800 OPERATION MANUAL( AUTOMATED BLOOD COUNTS AND [...] DESIRABLE: <130 MG/DL <110 MG/DL BORDERLINE-HIGH RISK: 130- 159 MG/DL 110-129 MG/DL HIGH RISK: >160 MG/DL >130 MG/DL *CHILDREN AND ADOLESCENTS REPRESENTS INDIVIDUALA AGED 2-19 YEARS EXCLUSIVE. Ast (Sgot) 15 U/L 0-40 [facility] ([facility] NORMAL RANGES Age WBC RBC HGB HCT [...] HCT IS 5% LESS SOURCE FOR DATA: Enlighted 1800 OPERATION MANUAL( AUTOMATED BLOOD COUNTS AND [...] DESIRABLE: <130 MG/DL <110 MG/DL BORDERLINE-HIGH RISK: 130- 159 MG/DL 110-129 MG/DL HIGH RISK: >160 MG/DL >130 MG/DL *CHILDREN AND ADOLESCENTS REPRESENTS INDIVIDUALA AGED 2-19 YEARS EXCLUSIVE. Tbili 0.40 mg/dL 0.0-1.2 [facility] ([facility] NORMAL RANGES Age WBC RBC HGB HCT [...] HCT IS 5% LESS SOURCE FOR DATA: Enlighted 1800 OPERATION MANUAL( AUTOMATED BLOOD COUNTS AND [...] DESIRABLE: <130 MG/DL <110 MG/DL BORDERLINE-HIGH RISK: 130- 159 MG/DL 110-129 MG/DL HIGH RISK: >160 MG/DL >130 MG/DL *CHILDREN AND ADOLESCENTS REPRESENTS INDIVIDUALA AGED 2-19 YEARS EXCLUSIVE. Osmolality-Calculated 284.0 CALC [facility] ([facility] NORMAL RANGES Age WBC RBC HGB HCT [...] DESIRABLE: <130 MG/DL <110 MG/DL BORDERLINE-HIGH RISK: 130- 159 MG/DL 110-129 MG/DL HIGH RISK: >160 MG/DL >130 MG/DL *CHILDREN AND ADOLESCENTS REPRESENTS INDIVIDUALA AGED 2-19 YEARS EXCLUSIVE. eGFR 55 # [facility] ( [facility] NORMAL RANGES Age WBC RBC HGB HCT [...] HCT IS 5% LESS SOURCE FOR DATA: Enlighted 1800 OPERATION MANUAL( AUTOMATED BLOOD COUNTS AND [...] DESIRABLE: <130 MG/DL <110 MG/DL BORDERLINE-HIGH RISK: 130- 159 MG/DL 110-129 MG/DL HIGH RISK: >160 MG/DL >130 MG/DL *CHILDREN AND ADOLESCENTS REPRESENTS INDIVIDUALA AGED 2-19 YEARS EXCLUSIVE. Anion Gap 16 mmol/L [facility] ([facility] NORMAL RANGES Age WBC RBC HGB HCT [...] HCT IS 5% LESS SOURCE FOR DATA: Enlighted 1800 OPERATION MANUAL( AUTOMATED BLOOD COUNTS AND [...] DESIRABLE: <130 MG/DL <110 MG/DL BORDERLINE-HIGH RISK: 130- 159 MG/DL 110-129 MG/DL HIGH RISK: >160 MG/DL >130 MG/DL *CHILDREN AND ADOLESCENTS REPRESENTS INDIVIDUALA AGED 2-19 YEARS EXCLUSIVE. eGFR Non-Afr. Welsh 47 # [facility] ([facility] NORMAL RANGES Age WBC RBC HGB HCT [...] DESIRABLE: <130 MG/DL <110 MG/DL BORDERLINE-HIGH RISK: 130- 159 MG/DL 110-129 MG/DL HIGH RISK: >160 MG/DL >130 MG/DL *CHILDREN AND ADOLESCENTS REPRESENTS INDIVIDUALA AGED 2-19 YEARS EXCLUSIVE. ID Date Data Source [id number] 03/01/2020 09:02:00 AM EST [facility] ([facility] Name Value Range Interpretation Code Description Data Annette rce(s) Supporting Document(s) WBC 6.7 10E3/uL 4.1-10.9 [facility] NORMAL RANGES Age WBC RBC HGB HCT [...] HCT IS 5% LESS SOURCE FOR DATA: Enlighted 1800 OPERATION MANUAL( AUTOMATED BLOOD COUNTS AND [...] DESIRABLE: <130 MG/DL <110 MG/DL BORDERLINE-HIGH RISK: 130- 159 MG/DL 110-129 MG/DL HIGH RISK: >160 MG/DL >130 MG/DL *CHILDREN AND ADOLESCENTS REPRESENTS INDIVIDUALA AGED 2-19 YEARS EXCLUSIVE. RBC 3.51 10E6/uL 4.20-6.30 Below low normal [facility] ([facility] NORMAL RANGES Age WBC RBC HGB HCT [...] HCT IS 5% LESS SOURCE FOR DATA: Enlighted 1800 OPERATION MANUAL( AUTOMATED BLOOD COUNTS AND [...] DESIRABLE: <130 MG/DL <110 MG/DL BORDERLINE-HIGH RISK: 130- 159 MG/DL 110-129 MG/DL HIGH RISK: >160 MG/DL >130 MG/DL *CHILDREN AND ADOLESCENTS REPRESENTS INDIVIDUALA AGED 2-19 YEARS EXCLUSIVE. HGB 11.4 g/dL 12.0-18.0 Below low normal [facility] ( [facility] NORMAL RANGES Age WBC RBC HGB HCT [...] HCT IS 5% LESS SOURCE FOR DATA: Enlighted 1800 OPERATION MANUAL( AUTOMATED BLOOD COUNTS AND [...] DESIRABLE: <130 MG/DL <110 MG/DL BORDERLINE-HIGH RISK: 130- 159 MG/DL 110-129 MG/DL HIGH RISK: >160 MG/DL >130 MG/DL *CHILDREN AND ADOLESCENTS REPRESENTS INDIVIDUALA AGED 2-19 YEARS EXCLUSIVE. MCV 98.9 fL 80.0-97.0 Above high normal [facility] ([facility] NORMAL RANGES Age WBC RBC HGB HCT [...] HCT IS 5% LESS SOURCE FOR DATA: Enlighted 1800 OPERATION MANUAL( AUTOMATED BLOOD COUNTS AND [...] DESIRABLE: <130 MG/DL <110 MG/DL BORDERLINE-HIGH RISK: 130- 159 MG/DL 110-129 MG/DL HIGH RISK: >160 MG/DL >130 MG/DL *CHILDREN AND ADOLESCENTS REPRESENTS INDIVIDUALA AGED 2-19 YEARS EXCLUSIVE. HCT 34.7 % 37.0-51.0 Below low normal [facility] ( [facility] NORMAL RANGES Age WBC RBC HGB HCT [...] HCT IS 5% LESS SOURCE FOR DATA: Enlighted 1800 OPERATION MANUAL( AUTOMATED BLOOD COUNTS AND [...] DESIRABLE: <130 MG/DL <110 MG/DL BORDERLINE-HIGH RISK: 130- 159 MG/DL 110-129 MG/DL HIGH RISK: >160 MG/DL >130 MG/DL *CHILDREN AND ADOLESCENTS REPRESENTS INDIVIDUALA AGED 2-19 YEARS EXCLUSIVE. MCH 32.5 pg 26.0-32.0 Above high normal [facility] ([facility] NORMAL RANGES Age WBC RBC HGB HCT [...] HCT IS 5% LESS SOURCE FOR DATA: Enlighted 1800 OPERATION MANUAL( AUTOMATED BLOOD COUNTS AND [...] DESIRABLE: <130 MG/DL <110 MG/DL BORDERLINE-HIGH RISK: 130- 159 MG/DL 110-129 MG/DL HIGH RISK: >160 MG/DL >130 MG/DL *CHILDREN AND ADOLESCENTS REPRESENTS INDIVIDUALA AGED 2-19 YEARS EXCLUSIVE. MCHC 32.9 g/dL 31.0-36.0 [facility] ([facility] NORMAL RANGES Age WBC RBC HGB HCT [...] HCT IS 5% LESS SOURCE FOR DATA: Enlighted 1800 OPERATION MANUAL( AUTOMATED BLOOD COUNTS AND [...] DESIRABLE: <130 MG/DL <110 MG/DL BORDERLINE-HIGH RISK: 130- 159 MG/DL 110-129 MG/DL HIGH RISK: >160 MG/DL >130 MG/DL *CHILDREN AND ADOLESCENTS REPRESENTS INDIVIDUALA AGED 2-19 YEARS EXCLUSIVE. PLT 149 10E3/uL 140-440 [facility] ([facility] NORMAL RANGES Age WBC RBC HGB HCT [...] HCT IS 5% LESS SOURCE FOR DATA: Enlighted 1800 OPERATION MANUAL( AUTOMATED BLOOD COUNTS AND [...] DESIRABLE: <130 MG/DL <110 MG/DL BORDERLINE-HIGH RISK: 130- 159 MG/DL 110-129 MG/DL HIGH RISK: >160 MG/DL >130 MG/DL *CHILDREN AND ADOLESCENTS REPRESENTS INDIVIDUALA AGED 2-19 YEARS EXCLUSIVE. Neut% 75.8 % 37.0-92.0 [facility] ([facility] NORMAL RANGES Age WBC RBC HGB HCT [...] HCT IS 5% LESS SOURCE FOR DATA: Enlighted 1800 OPERATION MANUAL( AUTOMATED BLOOD COUNTS AND [...] DESIRABLE: <130 MG/DL <110 MG/DL BORDERLINE-HIGH RISK: 130- 159 MG/DL 110-129 MG/DL HIGH RISK: >160 MG/DL >130 MG/DL *CHILDREN AND ADOLESCENTS REPRESENTS INDIVIDUALA AGED 2-19 YEARS EXCLUSIVE. Lym% 10.0 % 10.0-58.5 [facility] ([facility] NORMAL RANGES Age WBC RBC HGB HCT [...] HCT IS 5% LESS SOURCE FOR DATA: Enlighted 1800 OPERATION MANUAL( AUTOMATED BLOOD COUNTS AND [...] DESIRABLE: <130 MG/DL <110 MG/DL BORDERLINE-HIGH RISK: 130- 159 MG/DL 110-129 MG/DL HIGH RISK: >160 MG/DL >130 MG/DL *CHILDREN AND ADOLESCENTS REPRESENTS INDIVIDUALA AGED 2-19 YEARS EXCLUSIVE. RDW-CV 15.4 % 11.5-14.5 Above high normal [facility] ([facility] NORMAL RANGES Age WBC RBC HGB HCT [...] DESIRABLE: <130 MG/DL <110 MG/DL BORDERLINE-HIGH RISK: 130- 159 MG/DL 110-129 MG/DL HIGH RISK: >160 MG/DL >130 MG/DL *CHILDREN AND ADOLESCENTS REPRESENTS INDIVIDUALA AGED 2-19 YEARS EXCLUSIVE. Lym# 0.7 10E3/uL 0.6-4.1 [facility] ([facility] NORMAL RANGES Age WBC RBC HGB HCT [...] HCT IS 5% LESS SOURCE FOR DATA: Enlighted 1800 OPERATION MANUAL( AUTOMATED BLOOD COUNTS AND [...] DESIRABLE: <130 MG/DL <110 MG/DL BORDERLINE-HIGH RISK: 130- 159 MG/DL 110-129 MG/DL HIGH RISK: >160 MG/DL >130 MG/DL *CHILDREN AND ADOLESCENTS REPRESENTS INDIVIDUALA AGED 2-19 YEARS EXCLUSIVE. MXD% 14.2 % 0.1-24.0 [facility] ([facility] NORMAL RANGES Age WBC RBC HGB HCT [...] HCT IS 5% LESS SOURCE FOR DATA: Enlighted 1800 OPERATION MANUAL( AUTOMATED BLOOD COUNTS AND [...] DESIRABLE: <130 MG/DL <110 MG/DL BORDERLINE-HIGH RISK: 130- 159 MG/DL 110-129 MG/DL HIGH RISK: >160 MG/DL >130 MG/DL *CHILDREN AND ADOLESCENTS REPRESENTS INDIVIDUALA AGED 2-19 YEARS EXCLUSIVE. MXD# 1.0 10E3/uL 0.0-1.8 [employer] ([facility] NORMAL RANGES Age WBC RBC HGB HCT [...] HCT IS 5% LESS SOURCE FOR DATA: [employer] DYN 1800 OPERATION MANUAL( AUTOMATED BLOOD COUNTS [...] DESIRABLE: <130 MG/DL <110 MG/DL BORDERLINE-HIGH RISK: 130- 159 MG/DL 110-129 MG/DL HIGH RISK: >160 MG/DL >130 MG/DL *CHILDREN AND ADOLESCENTS REPRESENTS INDIVIDUALA AGED 2-19 YEARS EXCLUSIVE. Neut# 5.0 % 2.0-7.8 [facility] ([facility] NORMAL RANGES Age WBC RBC HGB HCT [...] HCT IS 5% LESS SOURCE FOR DATA: Enlighted 1800 OPERATION MANUAL( AUTOMATED BLOOD COUNTS AND [...] DESIRABLE: <130 MG/DL <110 MG/DL BORDERLINE-HIGH RISK: 130- 159 MG/DL 110-129 MG/DL HIGH RISK: >160 MG/DL >130 MG/DL *CHILDREN AND ADOLESCENTS REPRESENTS INDIVIDUALA AGED 2-19 YEARS EXCLUSIVE. MPV 10.9 fL 9.0-13.0 [facility] NORMAL RANGES Age WBC RBC HGB HCT [...] HCT IS 5% LESS SOURCE FOR DATA: Enlighted 1800 OPERATION MANUAL( AUTOMATED BLOOD COUNTS AND [...] DESIRABLE: <130 MG/DL <110 MG/DL BORDERLINE-HIGH RISK: 130- 159 MG/DL 110-129 MG/DL HIGH RISK: >160 MG/DL >130 MG/DL *CHILDREN AND ADOLESCENTS REPRESENTS INDIVIDUALA AGED 2-19 YEARS EXCLUSIVE. ID Date Data Source [id number] 02/25/2020 08:11:00 AM EST [facility] ([facility]) Name Value Range Interpretation Code Description Data Annette rce(s) Supporting Document(s) Prothrombin Time 27.4 s 12.5-14.3 [facility] ([facility]) Inr 2.48 [facility] ([facility]) THERAPUTIC HUMAN INR VALUES INDICATIONS NORMAL RANGES PROPHYLAXIS/TREATMENT OF: VENOUS THROMBOSIS 2.0-3.0 PULMONARY EMBOLISM 2.0-3.0 PREVENTION OF SYSTEMIC EMBOLISM FROM: TISSUE HEART VALVES 2.0-3.0 ACUTE MYOCARDIAL INFARCTION 2.0-3.0 VALVULAR HEART DISEASE 2.0-3.0 ATRIAL FIBRILLATION 2.0-3.0 MECHANICAL VALVES(HIGH RISK) 2.5-3.5 RECURRENT MYOCARDIAL INFARCTION 2.5-3.5 ID Date Data Source [id number] 02/25/2020 08:11:00 AM EST [facility] ([facility] Name Value Range Interpretation Code Description Data Annette rce(s) Supporting Document(s) Prothrombin Time 27.4 s 12.5-14.3 Above high normal M [facility] ([facility] Inr 2.48 Normal (applies to non-numeric resul ts) [facility] ([facility] THERAPUTIC HUMAN INR VALUES INDICATIONS NORMAL RANGES PROPHYLAXIS/TREATMENT OF: VENOUS THROMBOSIS 2.0-3.0 PULMONARY EMBOLISM 2.0-3.0 PREVENTION OF SYSTEMIC EMBOLISM FROM: TISSUE HEART VALVES 2.0-3.0 ACUTE MYOCARDIAL INFARCTION 2.0-3.0 VALVULAR HEART DISEASE 2.0-3.0 ATRIAL FIBRILLATION 2.0-3.0 MECHANICAL VALVES(HIGH RISK) 2.5-3.5 RECURRENT MYOCARDIAL INFARCTION 2.5-3.5 ID Date Data Source [id number] 02/17/2020 03:19:00 PM EDT [facility] ([employer] [facility] Name Value Range Interpretation Code Description Data Annette rce(s) Supporting Document(s) INR in Platelet poor plasma by Coagulation assay 3.6 [facility] ([facility] Prothrombin Time-Therapy 43.0 MED[facility] T ([facility] ID Date Data Source [id number] 02/17/2020 03:19:00 PM EDT [facility] ([facility] Name Value Range Interpretation Code Description Data Annette rce(s) Supporting Document(s) WBC 11.3 10E3/uL 4.1-10.9 Above high normal [facility] T ([facility] NORMAL RANGES Age WBC RBC HGB HCT [...] HCT IS 5% LESS SOURCE FOR DATA: Enlighted 1800 OPERATION MANUAL( AUTOMATED BLOOD COUNTS AND [...] Normal 80 and above >32 mL/min Normal RBC 4.22 10E6/uL 4.20-6.30 [facility] ([facility] NORMAL RANGES Age WBC RBC HGB HCT [...] HCT IS 5% LESS SOURCE FOR DATA: Enlighted 1800 OPERATION MANUAL( AUTOMATED BLOOD COUNTS AND [...] Normal 80 and above >32 mL/min Normal HCT 40.8 % 37.0-51.0 [facility] ([facility] NORMAL RANGES Age WBC RBC HGB HCT [...] HCT IS 5% LESS SOURCE FOR DATA: Enlighted 1800 OPERATION MANUAL( AUTOMATED BLOOD COUNTS AND [...] Normal 80 and above >32 mL/min Normal HGB 13.8 g/dL 12.0-18.0 [facility] ([facility] NORMAL RANGES Age WBC RBC HGB HCT [...] HCT IS 5% LESS SOURCE FOR DATA: Enlighted 1800 OPERATION MANUAL( AUTOMATED BLOOD COUNTS AND [...] Normal 80 and above >32 mL/min Normal MCV 96.7 fL 80.0-97.0 [facility] ([facility] NORMAL RANGES Age WBC RBC HGB HCT [...] HCT IS 5% LESS SOURCE FOR DATA: Enlighted 1800 OPERATION MANUAL( AUTOMATED BLOOD COUNTS AND [...] Normal 80 and above >32 mL/min Normal MCH 32.7 pg 26.0-32.0 Above high normal [facility] ([facility] NORMAL RANGES Age WBC RBC HGB HCT [...] HCT IS 5% LESS SOURCE FOR DATA: Enlighted 1800 OPERATION MANUAL( AUTOMATED BLOOD COUNTS AND [...] Normal 80 and above >32 mL/min Normal PLT 186 10E3/uL 140-440 [facility] ([facility] NORMAL RANGES Age WBC RBC HGB HCT [...] HCT IS 5% LESS SOURCE FOR DATA: Enlighted 1800 OPERATION MANUAL( AUTOMATED BLOOD COUNTS AND [...] Normal 80 and above >32 mL/min Normal MCHC 33.8 g/dL 31.0-36.0 [facility] NORMAL RANGES Age WBC RBC HGB HCT [...] Normal 80 and above >32 mL/min Normal RDW-CV 14.7 % 11.5-14.5 Above high normal [facility] ([facility] NORMAL RANGES Age WBC RBC HGB HCT [...] HCT IS 5% LESS SOURCE FOR DATA: Enlighted 1800 OPERATION MANUAL( AUTOMATED BLOOD COUNTS AND [...] Normal 80 and above >32 mL/min Normal Lym% 8.0 % 10.0-58.5 Below low normal [facility] ( [facility] NORMAL RANGES Age WBC RBC HGB HCT [...] HCT IS 5% LESS SOURCE FOR DATA: Enlighted 1800 OPERATION MANUAL( AUTOMATED BLOOD COUNTS AND [...] Normal 80 and above >32 mL/min Normal Neut% 75.7 % 37.0-92.0 [facility] ([facility] NORMAL RANGES Age WBC RBC HGB HCT [...] HCT IS 5% LESS SOURCE FOR DATA: Enlighted 1800 OPERATION MANUAL( AUTOMATED BLOOD COUNTS AND [...] Normal 80 and above >32 mL/min Normal Lym# 0.9 10E3/uL 0.6-4.1 [facility] ([facility] NORMAL RANGES Age WBC RBC HGB HCT [...] HCT IS 5% LESS SOURCE FOR DATA: Enlighted 1800 OPERATION MANUAL( AUTOMATED BLOOD COUNTS AND [...] Normal 80 and above >32 mL/min Normal MXD% 16.3 % 0.1-24.0 [facility] ([facility] NORMAL RANGES Age WBC RBC HGB HCT [...] HCT IS 5% LESS SOURCE FOR DATA: Enlighted 1800 OPERATION MANUAL( AUTOMATED BLOOD COUNTS AND [...] Normal 80 and above >32 mL/min Normal Neut# 8.6 % 2.0-7.8 Above high normal [facility] ([facility] NORMAL RANGES Age WBC RBC HGB HCT [...] HCT IS 5% LESS SOURCE FOR DATA: Enlighted 1800 OPERATION MANUAL( AUTOMATED BLOOD COUNTS AND [...] Normal 80 and above >32 mL/min Normal MXD# 1.8 10E3/uL 0.0-1.8 [facility] ([facility] NORMAL RANGES Age WBC RBC HGB HCT [...] HCT IS 5% LESS SOURCE FOR DATA: Enlighted 1800 OPERATION MANUAL( AUTOMATED BLOOD COUNTS AND [...] Normal 80 and above >32 mL/min Normal MPV 12.4 fL 9.0-13.0 [facility] NORMAL RANGES Age WBC RBC HGB HCT [...] HCT IS 5% LESS SOURCE FOR DATA: Enlighted 1800 OPERATION MANUAL( AUTOMATED BLOOD COUNTS AND [...] Normal 80 and above >32 mL/min Normal ID Date Data Source [id number] 02/17/2020 03:19:00 PM EDT [facility] ([facility] Name Value Range Interpretation Code Description Data Annette rce(s) Supporting Document(s) Glu 106 mg/dL 70-110 [facility] NORMAL RANGES Age WBC RBC HGB HCT [...] HCT IS 5% LESS SOURCE FOR DATA: [employer] DYN 1800 OPERATION MANUAL( AUTOMATED BLOOD COUNTS [...] Normal 80 and above >32 mL/min Normal BUN 81 mg/dL 8-23 Above high normal [facility] ([facility] NORMAL RANGES Age WBC RBC HGB HCT [...] HCT IS 5% LESS SOURCE FOR DATA: Enlighted 1800 OPERATION MANUAL( AUTOMATED BLOOD COUNTS AND [...] Normal 80 and above >32 mL/min Normal Creat 1.9 mg/dL 0.7-1.2 Above high normal [facility] ([facility] NORMAL RANGES Age WBC RBC HGB HCT [...] HCT IS 5% LESS SOURCE FOR DATA: Enlighted 1800 OPERATION MANUAL( AUTOMATED BLOOD COUNTS AND [...] Normal 80 and above >32 mL/min Normal BUN/Creatinine Ratio 41.9 Calc [facility] ([facility] NORMAL RANGES Age WBC RBC HGB HCT [...] HCT IS 5% LESS SOURCE FOR DATA: Enlighted 1800 OPERATION MANUAL( AUTOMATED BLOOD COUNTS AND [...] Normal 80 and above >32 mL/min Normal Na 134 mmol/L 136-145 Below low normal [facility] ( [facility] NORMAL RANGES Age WBC RBC HGB HCT [...] HCT IS 5% LESS SOURCE FOR DATA: Enlighted 1800 OPERATION MANUAL( AUTOMATED BLOOD COUNTS AND [...] Normal 80 and above >32 mL/min Normal K 3.5 mmol/L 3.5-5.1 [facility] ([facility] NORMAL RANGES Age WBC RBC HGB HCT [...] HCT IS 5% LESS SOURCE FOR DATA: Enlighted 1800 OPERATION MANUAL( AUTOMATED BLOOD COUNTS AND [...] Normal 80 and above >32 mL/min Normal CA 9.9 mg/dL 8.6-10.2 [facility] ([facility] NORMAL RANGES Age WBC RBC HGB HCT [...] HCT IS 5% LESS SOURCE FOR DATA: Enlighted 1800 OPERATION MANUAL( AUTOMATED BLOOD COUNTS AND [...] Normal 80 and above >32 mL/min Normal CL 89.1 mmol/L 98.0-107.0 Below low normal [facility] ([facility] NORMAL RANGES Age WBC RBC HGB HCT [...] HCT IS 5% LESS SOURCE FOR DATA: Enlighted 1800 OPERATION MANUAL( AUTOMATED BLOOD COUNTS AND [...] Normal 80 and above >32 mL/min Normal Co2 28.1 mmol/L 22.0-29.0 [facility] ([facility] NORMAL RANGES Age WBC RBC HGB HCT [...] HCT IS 5% LESS SOURCE FOR DATA: Enlighted 1800 OPERATION MANUAL( AUTOMATED BLOOD COUNTS AND [...] Normal 80 and above >32 mL/min Normal A/G Ratio 1.4 Calc [facility] NORMAL RANGES Age WBC RBC HGB HCT [...] Normal 80 and above >32 mL/min Normal Alb 4.4 g/dL 3.5-5.2 [facility] NORMAL RANGES Age WBC RBC HGB HCT [...] HCT IS 5% LESS SOURCE FOR DATA: Enlighted 1800 OPERATION MANUAL( AUTOMATED BLOOD COUNTS AND [...] Normal 80 and above >32 mL/min Normal TP 7.6 g/dL 6.6-8.7 [facility] ([facility] NORMAL RANGES Age WBC RBC HGB HCT [...] HCT IS 5% LESS SOURCE FOR DATA: Enlighted 1800 OPERATION MANUAL( AUTOMATED BLOOD COUNTS AND [...] Normal 80 and above >32 mL/min Normal Globulin 3.2 Calc [facility] ([facility] NORMAL RANGES Age WBC RBC HGB HCT [...] HCT IS 5% LESS SOURCE FOR DATA: Enlighted 1800 OPERATION MANUAL( AUTOMATED BLOOD COUNTS AND [...] Normal 80 and above >32 mL/min Normal Alp 82.2 U/L 40-129 [facility] NORMAL RANGES Age WBC RBC HGB HCT [...] HCT IS 5% LESS SOURCE FOR DATA: Enlighted 1800 OPERATION MANUAL( AUTOMATED BLOOD COUNTS AND [...] Normal 80 and above >32 mL/min Normal Alt (SGPT) 9 U/L 0-41 [facility] ([facility] NORMAL RANGES Age WBC RBC HGB HCT [...] HCT IS 5% LESS SOURCE FOR DATA: Enlighted 1800 OPERATION MANUAL( AUTOMATED BLOOD COUNTS AND [...] Normal 80 and above >32 mL/min Normal Tbili 0.84 mg/dL 0.0-1.2 [facility] ([facility] NORMAL RANGES Age WBC RBC HGB HCT [...] HCT IS 5% LESS SOURCE FOR DATA: Enlighted 1800 OPERATION MANUAL( AUTOMATED BLOOD COUNTS AND [...] Normal 80 and above >32 mL/min Normal Ast (Sgot) 22 U/L 0-40 [facility] NORMAL RANGES Age WBC RBC HGB HCT [...] HCT IS 5% LESS SOURCE FOR DATA: Enlighted 1800 OPERATION MANUAL( AUTOMATED BLOOD COUNTS AND [...] Normal 80 and above >32 mL/min Normal Osmolality-Calculated 293.2 Calc [facility] ([facility] NORMAL RANGES Age WBC RBC HGB HCT [...] HCT IS 5% LESS SOURCE FOR DATA: Enlighted 1800 OPERATION MANUAL( AUTOMATED BLOOD COUNTS AND [...] Normal 80 and above >32 mL/min Normal Anion Gap 20 mmol/L [facility] ([facility] NORMAL RANGES Age WBC RBC HGB HCT [...] HCT IS 5% LESS SOURCE FOR DATA: Enlighted 1800 OPERATION MANUAL( AUTOMATED BLOOD COUNTS AND [...] Normal 80 and above >32 mL/min Normal eGFR 38 # [facility] ( [facility] NORMAL RANGES Age WBC RBC HGB HCT [...] Normal 80 and above >32 mL/min Normal eGFR Non-Afr. Welsh 33 # [facility] ([facility] NORMAL RANGES Age WBC RBC HGB HCT [...] HCT IS 5% LESS SOURCE FOR DATA: Enlighted 1800 OPERATION MANUAL( AUTOMATED BLOOD COUNTS AND [...] Normal 80 and above >32 mL/min Normal ID Date Data Source [id number] 02/10/2020 10:05:00 AM EDT [facility] ([facility]) Name Value Range Interpretation Code Description Data Annette rce(s) Supporting Document(s) Prothrombin Time 25.5 s 12.5-14.3 [facility] ([facility]) Inr 2.26 [facility] ([facility]) THERAPUTIC HUMAN INR VALUES INDICATIONS NORMAL RANGES PROPHYLAXIS/TREATMENT OF: VENOUS THROMBOSIS 2.0-3.0 PULMONARY EMBOLISM 2.0-3.0 PREVENTION OF SYSTEMIC EMBOLISM FROM: TISSUE HEART VALVES 2.0-3.0 ACUTE MYOCARDIAL INFARCTION 2.0-3.0 VALVULAR HEART DISEASE 2.0-3.0 ATRIAL FIBRILLATION 2.0-3.0 MECHANICAL VALVES(HIGH RISK) 2.5-3.5 RECURRENT MYOCARDIAL INFARCTION 2.5-3.5 ID Date Data Source [id number] 02/10/2020 10:05:00 AM EDT [facility] ([facility] Name Value Range Interpretation Code Description Data Annette rce(s) Supporting Document(s) Prothrombin Time 25.5 s 12.5-14.3 Above high normal M [facility] ([facility] Inr 2.26 Normal (applies to non-numeric resul ts) [facility] ([facility] THERAPUTIC HUMAN INR VALUES INDICATIONS NORMAL RANGES PROPHYLAXIS/TREATMENT OF: VENOUS THROMBOSIS 2.0-3.0 PULMONARY EMBOLISM 2.0-3.0 PREVENTION OF SYSTEMIC EMBOLISM FROM: TISSUE HEART VALVES 2.0-3.0 ACUTE MYOCARDIAL INFARCTION 2.0-3.0 VALVULAR HEART DISEASE 2.0-3.0 ATRIAL FIBRILLATION 2.0-3.0 MECHANICAL VALVES(HIGH RISK) 2.5-3.5 RECURRENT MYOCARDIAL INFARCTION 2.5-3.5 ID Date Data Source [id number] 01/12/2020 08:57:00 AM EDT [facility] [place] Range Interpretation Code Description Data Annette rce(s) Supporting Document(s) Inr 3.26 [facility] ([facility]) THERAPUTIC HUMAN INR VALUES INDICATIONS NORMAL RANGES PROPHYLAXIS/TREATMENT OF: VENOUS THROMBOSIS 2.0-3.0 PULMONARY EMBOLISM 2.0-3.0 PREVENTION OF SYSTEMIC EMBOLISM FROM: TISSUE HEART VALVES 2.0-3.0 ACUTE MYOCARDIAL INFARCTION 2.0-3.0 VALVULAR HEART DISEASE 2.0-3.0 ATRIAL FIBRILLATION 2.0-3.0 MECHANICAL VALVES(HIGH RISK) 2.5-3.5 RECURRENT MYOCARDIAL INFARCTION 2.5-3.5 Prothrombin Time 34.0 s 12.5-14.3 [facility] [place] Data Source [id number] 01/12/2020 08:57:00 AM EDT [facility] ([facility] Name Value Range Interpretation Code Description Data Annette rce(s) Supporting Document(s) Prothrombin Time 34.0 s 12.5-14.3 Above high normal M [facility] ([facility] Inr 3.26 Normal (applies to non-numeric resul ts) [facility] ([facility] THERAPUTIC HUMAN INR VALUES INDICATIONS NORMAL RANGES PROPHYLAXIS/TREATMENT OF: VENOUS THROMBOSIS 2.0-3.0 PULMONARY EMBOLISM 2.0-3.0 PREVENTION OF SYSTEMIC EMBOLISM FROM: TISSUE HEART VALVES 2.0-3.0 ACUTE MYOCARDIAL INFARCTION 2.0-3.0 VALVULAR HEART DISEASE 2.0-3.0 ATRIAL FIBRILLATION 2.0-3.0 MECHANICAL VALVES(HIGH RISK) 2.5-3.5 RECURRENT MYOCARDIAL INFARCTION 2.5-3.5 ID Date Data Source [id number] 12/30/2019 02:49:00 PM EDT [facility] ([facility] Name Value Range Interpretation Code Description Data Annette rce(s) Supporting Document(s) Glu 96 mg/dL 70-110 [facility] NORMAL RANGES Age WBC RBC HGB HCT [...] HCT IS 5% LESS SOURCE FOR DATA: Enlighted 1800 [employer]PER[employer] MANUAL( AUTOMATED BLOOD COUNTS AND [...] Normal 80 and above >32 mL/min Normal BUN 31 mg/dL 8-23 Above high normal [facility] ([facility] NORMAL RANGES Age WBC RBC HGB HCT [...] HCT IS 5% LESS SOURCE FOR DATA: Enlighted 1800 OPERATION MANUAL( AUTOMATED BLOOD COUNTS AND [...] Normal 80 and above >32 mL/min Normal Creat 1.4 mg/dL 0.7-1.2 Above high normal [facility] ([facility] NORMAL RANGES Age WBC RBC HGB HCT [...] HCT IS 5% LESS SOURCE FOR DATA: Enlighted 1800 OPERATION MANUAL( AUTOMATED BLOOD COUNTS AND [...] Normal 80 and above >32 mL/min Normal BUN/Creatinine Ratio 23.0 [facility] NORMAL RANGES Age WBC RBC HGB HCT [...] HCT IS 5% LESS SOURCE FOR DATA: Enlighted 1800 OPERATION MANUAL( AUTOMATED BLOOD COUNTS AND [...] Normal 80 and above >32 mL/min Normal CA 8.6 mg/dL 8.6-10.2 [facility] NORMAL RANGES Age WBC RBC HGB HCT [...] HCT IS 5% LESS SOURCE FOR DATA: Enlighted 1800 OPERATION MANUAL( AUTOMATED BLOOD COUNTS AND [...] Normal 80 and above >32 mL/min Normal Co2 23.0 mmol/L 22.0-29.0 [facility] ([facility] NORMAL RANGES Age WBC RBC HGB HCT [...] HCT IS 5% LESS SOURCE FOR DATA: Enlighted 1800 OPERATION MANUAL( AUTOMATED BLOOD COUNTS AND [...] Normal 80 and above >32 mL/min Normal Na 139 mmol/L 136-145 [facility] ([facility] NORMAL RANGES Age WBC RBC HGB HCT [...] HCT IS 5% LESS SOURCE FOR DATA: Enlighted 1800 OPERATION MANUAL( AUTOMATED BLOOD COUNTS AND [...] Normal 80 and above >32 mL/min Normal K 4.4 mmol/L 3.5-5.1 [facility] ([facility] NORMAL RANGES Age WBC RBC HGB HCT [...] HCT IS 5% LESS SOURCE FOR DATA: Enlighted 1800 OPERATION MANUAL( AUTOMATED BLOOD COUNTS AND [...] Normal 80 and above >32 mL/min Normal CL 105.2 mmol/L 98.0-107.0 [facility] ([facility] NORMAL RANGES Age WBC RBC HGB HCT [...] HCT IS 5% LESS SOURCE FOR DATA: Enlighted 1800 OPERATION MANUAL( AUTOMATED BLOOD COUNTS AND [...] Normal 80 and above >32 mL/min Normal Anion Gap 15 mmol/L [facility] NORMAL RANGES Age WBC RBC HGB HCT [...] HCT IS 5% LESS SOURCE FOR DATA: Enlighted 1800 OPERATION MANUAL( AUTOMATED BLOOD COUNTS AND [...] Normal 80 and above >32 mL/min Normal eGFR 55 # [facility] ( [facility] CKD-EPI eGFR Non-Afr. Welsh 47 # [facility] ([facility] CKD-EPI ID Date Data Source [id number] 12/30/2019 02:49:00 PM EDT [facility] ([facility] Name Value Range Interpretation Code Description Data Annette rce(s) Supporting Document(s) WBC 6.7 10E3/uL 4.1-10.9 [facility] ([facility] NORMAL RANGES Age WBC RBC HGB HCT [...] HCT IS 5% LESS SOURCE FOR DATA: Enlighted 1800 OPERATION MANUAL( AUTOMATED BLOOD COUNTS AND [...] Normal 80 and above >32 mL/min Normal RBC 3.50 10E6/uL 4.20-6.30 Below low normal [facility] ([facility] NORMAL RANGES Age WBC RBC HGB HCT [...] HCT IS 5% LESS SOURCE FOR DATA: Enlighted 1800 OPERATION MANUAL( AUTOMATED BLOOD COUNTS AND [...] Normal 80 and above >32 mL/min Normal HGB 11.8 g/dL 12.0-18.0 Below low normal [facility] ( [facility] NORMAL RANGES Age WBC RBC HGB HCT [...] HCT IS 5% LESS SOURCE FOR DATA: Enlighted 1800 OPERATION MANUAL( AUTOMATED BLOOD COUNTS AND [...] Normal 80 and above >32 mL/min Normal HCT 34.8 % 37.0-51.0 Below low normal [facility] ( [facility] NORMAL RANGES Age WBC RBC HGB HCT [...] HCT IS 5% LESS SOURCE FOR DATA: Enlighted 1800 OPERATION MANUAL( AUTOMATED BLOOD COUNTS AND [...] Normal 80 and above >32 mL/min Normal MCV 99.4 fL 80.0-97.0 Above high normal [facility] ([facility] NORMAL RANGES Age WBC RBC HGB HCT [...] HCT IS 5% LESS SOURCE FOR DATA: Enlighted 1800 OPERATION MANUAL( AUTOMATED BLOOD COUNTS AND [...] Normal 80 and above >32 mL/min Normal MCH 33.7 pg 26.0-32.0 Above high normal [facility] ([facility] NORMAL RANGES Age WBC RBC HGB HCT [...] HCT IS 5% LESS SOURCE FOR DATA: Enlighted 1800 OPERATION MANUAL( AUTOMATED BLOOD COUNTS AND [...] Normal 80 and above >32 mL/min Normal MCHC 33.9 g/dL 31.0-36.0 [facility] NORMAL RANGES Age WBC RBC HGB HCT [...] HCT IS 5% LESS SOURCE FOR DATA: Enlighted 1800 OPERATION MANUAL( AUTOMATED BLOOD COUNTS AND [...] Normal 80 and above >32 mL/min Normal PLT 157 10E3/uL 140-440 [facility] NORMAL RANGES Age WBC RBC HGB HCT [...] HCT IS 5% LESS SOURCE FOR DATA: Enlighted 1800 OPERATION MANUAL( AUTOMATED BLOOD COUNTS AND [...] Normal 80 and above >32 mL/min Normal RDW-CV 14.8 % 11.5-14.5 Above high normal [facility] ([facility] NORMAL RANGES Age WBC RBC HGB HCT [...] HCT IS 5% LESS SOURCE FOR DATA: [employer] DYN 1800 OPERATION MANUAL( AUTOMATED BLOOD COUNTS [...] Normal 80 and above >32 mL/min Normal Neut% 75.8 % 37.0-92.0 [facility] ([facility] NORMAL RANGES Age WBC RBC HGB HCT [...] HCT IS 5% LESS SOURCE FOR DATA: Enlighted 1800 OPERATION MANUAL( AUTOMATED BLOOD COUNTS AND [...] Normal 80 and above >32 mL/min Normal Lym% 9.4 % 10.0-58.5 Below low normal [facility] ( [facility] NORMAL RANGES Age WBC RBC HGB HCT [...] HCT IS 5% LESS SOURCE FOR DATA: Enlighted 1800 OPERATION MANUAL( AUTOMATED BLOOD COUNTS AND [...] Normal 80 and above >32 mL/min Normal MXD% 14.8 % 0.1-24.0 [facility] ([facility] NORMAL RANGES Age WBC RBC HGB HCT [...] HCT IS 5% LESS SOURCE FOR DATA: Enlighted 1800 OPERATION MANUAL( AUTOMATED BLOOD COUNTS AND [...] Normal 80 and above >32 mL/min Normal Lym# 0.6 10E3/uL 0.6-4.1 [facility] ([facility] NORMAL RANGES Age WBC RBC HGB HCT [...] HCT IS 5% LESS SOURCE FOR DATA: Enlighted 1800 OPERATION MANUAL( AUTOMATED BLOOD COUNTS AND [...] Normal 80 and above >32 mL/min Normal Neut# 5.1 % 2.0-7.8 [facility] ([facility] NORMAL RANGES Age WBC RBC HGB HCT [...] HCT IS 5% LESS SOURCE FOR DATA: Enlighted 1800 OPERATION MANUAL( AUTOMATED BLOOD COUNTS AND [...] Normal 80 and above >32 mL/min Normal MXD# 1.0 10E3/uL 0.0-1.8 [facility] ([facility] NORMAL RANGES Age WBC RBC HGB HCT [...] HCT IS 5% LESS SOURCE FOR DATA: Enlighted 1800 OPERATION MANUAL( AUTOMATED BLOOD COUNTS AND [...] Normal 80 and above >32 mL/min Normal MPV 11.7 fL 9.0-13.0 [facility] NORMAL RANGES Age WBC RBC HGB HCT [...] HCT IS 5% LESS SOURCE FOR DATA: Enlighted 1800 OPERATION MANUAL( AUTOMATED BLOOD COUNTS AND [...] Normal 80 and above >32 mL/min Normal ID Date Data Source [id number] 12/30/2019 01:32:00 PM EDT [facility] ([facility]) Name Value Range Interpretation Code Description Data Annette rce(s) Supporting Document(s) Platelets 157 140-440 [facility] ([facility]) White Blood Count 6.7 4.1-10.9 [facility] ([facility]) Red Blood Count 3.50 4.20-6.30 [facility] ([facility]) Hemoglobin 11.8 12.0-18.0 [facility] ([facility]) Hematocrit 34.8 37.0-51.0 [facility] ([facility]) ID Date Data Source [id number] 12/30/2019 01:32:00 PM EDT [facility] ([facility]) Name Value Range Interpretation Code Description Data Annette rce(s) Supporting Document(s) Calcium [Mass/volume] in Serum or Plasma 8.6 [facility] ([facility]) Sodium 139 [facility] ([facility]) Carbon dioxide, total [Moles/volume] in Serum or Plasma 23.0 [facility] ([facility]) Chloride [Moles/volume] in Serum or Plasma 105.2 [facility] ([facility]) Potassium [Moles/volume] in Serum or Plasma 4.4 [facility] ([facility]) Glomerular filtration rate/1.73 sq M.pre dicted [Volume Rate/Area] in Serum or Plasma by Creatinine-based formula (MDRD) Laboratory test result [facility] ([facility]) Creatinine 1.4 0.7-1.2 [facility] ([facility]) Blood Urea Nitrogen 31 8-23 [facility] ([facility]) Glucose 96 70-110 [facility] ([facility]) ID Date Data Source [id number] 12/25/2019 11:20:00 AM EDT [facility] ([facility] Name Value Range Interpretation Code Description Data Annette rce(s) Supporting Document(s) Occult Blood Laboratory test result [facility] ([facility] ID Date Data Source [id number] 12/23/2019 08:23:00 AM EDT [facility] ([facility] Name Value Range Interpretation Code Description Data Annette rce(s) Supporting Document(s) Prothrombin Time 22.9 s 11.8-14.0 [facility] ([facility] Inr 1.97 [facility] ([facility]) THERAPUTIC HUMAN INR VALUES INDICATIONS NORMAL RANGES PROPHYLAXIS/TREATMENT OF: VENOUS THROMBOSIS 2.0-3.0 PULMONARY EMBOLISM 2.0-3.0 PREVENTION OF SYSTEMIC EMBOLISM FROM: TISSUE HEART VALVES 2.0-3.0 ACUTE MYOCARDIAL INFARCTION 2.0-3.0 VALVULAR HEART DISEASE 2.0-3.0 ATRIAL FIBRILLATION 2.0-3.0 MECHANICAL VALVES(HIGH RISK) 2.5-3.5 RECURRENT MYOCARDIAL INFARCTION 2.5-3.5 ID Date Data Source [id number] 12/23/2019 08:23:00 AM EDT [facility] ([facility] Name Value Range Interpretation Code Description Data Annette rce(s) Supporting Document(s) Prothrombin Time 22.9 s 11.8-14.0 Above high normal M [facility] ([facility] Inr 1.97 Normal (applies to non-numeric resul ts) [facility] ([facility] THERAPUTIC HUMAN INR VALUES INDICATIONS NORMAL RANGES PROPHYLAXIS/TREATMENT OF: VENOUS THROMBOSIS 2.0-3.0 PULMONARY EMBOLISM 2.0-3.0 PREVENTION OF SYSTEMIC EMBOLISM FROM: TISSUE HEART VALVES 2.0-3.0 ACUTE MYOCARDIAL INFARCTION 2.0-3.0 VALVULAR HEART DISEASE 2.0-3.0 ATRIAL FIBRILLATION 2.0-3.0 MECHANICAL VALVES(HIGH RISK) 2.5-3.5 RECURRENT MYOCARDIAL INFARCTION 2.5-3.5 ID Date Data Source [id number] 12/09/2019 03:30:00 PM EDT [facility] ([facility] Name Value Range Interpretation Code Description Data Annette rce(s) Supporting Document(s) P T 24.2 [facility] ([facility]) I N R 2.12 [facility] ([facility]) ID Date Data Source [id number] 12/09/2019 10:15:00 AM EDT [facility] ([facility] Name Value Range Interpretation Code Description Data Annette rce(s) Supporting Document(s) Prothrombin Time 24.2 s 12.5-14.3 [facility] ([facility] Inr 2.12 [facility] ([facility]) THERAPUTIC HUMAN INR VALUES INDICATIONS NORMAL RANGES PROPHYLAXIS/TREATMENT OF: VENOUS THROMBOSIS 2.0-3.0 PULMONARY EMBOLISM 2.0-3.0 PREVENTION OF SYSTEMIC EMBOLISM FROM: TISSUE HEART VALVES 2.0-3.0 ACUTE MYOCARDIAL INFARCTION 2.0-3.0 VALVULAR HEART DISEASE 2.0-3.0 ATRIAL FIBRILLATION 2.0-3.0 MECHANICAL VALVES(HIGH RISK) 2.5-3.5 RECURRENT MYOCARDIAL INFARCTION 2.5-3.5 ID Date Data Source [id number] 11/10/2019 09:30:00 AM EDT [facility] ([facility] Name Value Range Interpretation Code Description Data Annette rce(s) Supporting Document(s) Prothrombin Time 27.1 s 11.8-14.0 [facility] ([facility] Inr 2.53 [facility] ([facility]) THERAPUTIC HUMAN INR VALUES INDICATIONS NORMAL RANGES PROPHYLAXIS/TREATMENT OF: VENOUS THROMBOSIS 2.0-3.0 PULMONARY EMBOLISM 2.0-3.0 PREVENTION OF SYSTEMIC EMBOLISM FROM: TISSUE HEART VALVES 2.0-3.0 ACUTE MYOCARDIAL INFARCTION 2.0-3.0 VALVULAR HEART DISEASE 2.0-3.0 ATRIAL FIBRILLATION 2.0-3.0 MECHANICAL VALVES(HIGH RISK) 2.5-3.5 RECURRENT MYOCARDIAL INFARCTION 2.5-3.5 ID Date Data Source [id number] 11/10/2019 09:30:00 AM EDT [facility] ([facility] Name Value Range Interpretation Code Description Data Annette rce(s) Supporting Document(s) Prothrombin Time 27.1 s 11.8-14.0 Above high normal M [facility] ([facility] Inr 2.53 Normal (applies to non-numeric resul ts) [facility] ([facility] THERAPUTIC HUMAN INR VALUES INDICATIONS NORMAL RANGES PROPHYLAXIS/TREATMENT OF: VENOUS THROMBOSIS 2.0-3.0 PULMONARY EMBOLISM 2.0-3.0 PREVENTION OF SYSTEMIC EMBOLISM FROM: TISSUE HEART VALVES 2.0-3.0 ACUTE MYOCARDIAL INFARCTION 2.0-3.0 VALVULAR HEART DISEASE 2.0-3.0 ATRIAL FIBRILLATION 2.0-3.0 MECHANICAL VALVES(HIGH RISK) 2.5-3.5 RECURRENT MYOCARDIAL INFARCTION 2.5-3.5 ID Date Data Source [id number] 11/07/2019 09:43:00 AM EDT [facility] ([facility]) Name Value Range Interpretation Code Description Data Annette rce(s) Supporting Document(s) RBC 3.35 10E6/uL 4.-630 [facility] ([facility]) NORMAL RANGES Age WBC RBC HGB HCT [...] HCT IS 5% LESS SOURCE FOR DATA: Enlighted 1800 OPERATION MANUAL( AUTOMATED BLOOD COUNTS AND [...] ADOLESCENTS REPRESENTS INDIVIDUALA AGED 2-19 YEARS EXCLUSIVE. WBC 6.4 10E3/uL 4.1-10.9 [facility] ([facility]) NORMAL RANGES Age WBC RBC HGB HCT [...] HCT IS 5% LESS SOURCE FOR DATA: Enlighted 1800 OPERATION MANUAL( AUTOMATED BLOOD COUNTS AND [...] ADOLESCENTS REPRESENTS INDIVIDUALA AGED 2-19 YEARS EXCLUSIVE. HGB 11.2 g/dL 12.0-18.0 [facility] ([facility]) NORMAL RANGES Age WBC RBC HGB HCT [...] HCT IS 5% LESS SOURCE FOR DATA: Enlighted 1800 OPERATION MANUAL( AUTOMATED BLOOD COUNTS AND [...] ADOLESCENTS REPRESENTS INDIVIDUALA AGED 2-19 YEARS EXCLUSIVE. HCT 33.2 % 37.0-51.0 [facility] ([facility]) NORMAL RANGES Age WBC RBC HGB HCT [...] HCT IS 5% LESS SOURCE FOR DATA: Enlighted 1800 OPERATION MANUAL( AUTOMATED BLOOD COUNTS AND [...] ADOLESCENTS REPRESENTS INDIVIDUALA AGED 2-19 YEARS EXCLUSIVE. MCV 99.1 fL 80.0-97.0 [facility] ([facility]) NORMAL RANGES Age WBC RBC HGB HCT [...] HCT IS 5% LESS SOURCE FOR DATA: Enlighted 1800 OPERATION MANUAL( AUTOMATED BLOOD COUNTS AND [...] ADOLESCENTS REPRESENTS INDIVIDUALA AGED 2-19 YEARS EXCLUSIVE. MCHC 33.7 g/dL 31.0-36.0 [facility] ([facility]) NORMAL RANGES Age WBC RBC HGB HCT [...] HCT IS 5% LESS SOURCE FOR DATA: Enlighted 1800 OPERATION MANUAL( AUTOMATED BLOOD COUNTS AND [...] ADOLESCENTS REPRESENTS INDIVIDUALA AGED 2-19 YEARS EXCLUSIVE. MCH 33.4 pg 26.0-32.0 [facility] ([facility]) NORMAL RANGES Age WBC RBC HGB HCT [...] HCT IS 5% LESS SOURCE FOR DATA: Enlighted 1800 OPERATION MANUAL( AUTOMATED BLOOD COUNTS AND [...] ADOLESCENTS REPRESENTS INDIVIDUALA AGED 2-19 YEARS EXCLUSIVE. PLT 173 10E3/uL 140-440 [facility] ([facility]) NORMAL RANGES Age WBC RBC HGB HCT [...] HCT IS 5% LESS SOURCE FOR DATA: Enlighted 1800 OPERATION MANUAL( AUTOMATED BLOOD COUNTS AND [...] ADOLESCENTS REPRESENTS INDIVIDUALA AGED 2-19 YEARS EXCLUSIVE. Lym% 9.1 % 10.0-58.5 [facility] ([facility]) NORMAL RANGES Age WBC RBC HGB HCT [...] HCT IS 5% LESS SOURCE FOR DATA: Enlighted 1800 OPERATION MANUAL( AUTOMATED BLOOD COUNTS AND [...] ADOLESCENTS REPRESENTS INDIVIDUALA AGED 2-19 YEARS EXCLUSIVE. RDW-CV 16.0 % 11.5-14.5 [facility] ([facility]) NORMAL RANGES Age WBC RBC HGB HCT [...] HCT IS 5% LESS SOURCE FOR DATA: Enlighted 1800 OPERATION MANUAL( AUTOMATED BLOOD COUNTS AND [...] ADOLESCENTS REPRESENTS INDIVIDUALA AGED 2-19 YEARS EXCLUSIVE. Lym# 0.6 10E3/uL 0.6-4.1 [facility] ([facility]) NORMAL RANGES Age WBC RBC HGB HCT [...] HCT IS 5% LESS SOURCE FOR DATA: Enlighted 1800 OPERATION MANUAL( AUTOMATED BLOOD COUNTS AND [...] ADOLESCENTS REPRESENTS INDIVIDUALA AGED 2-19 YEARS EXCLUSIVE. Neut% 73.1 % 37.0-92.0 [facility] ([facility]) NORMAL RANGES Age WBC RBC HGB HCT [...] HCT IS 5% LESS SOURCE FOR DATA: Enlighted 1800 OPERATION MANUAL( AUTOMATED BLOOD COUNTS AND [...] ADOLESCENTS REPRESENTS INDIVIDUALA AGED 2-19 YEARS EXCLUSIVE. MXD% 17.8 % 0.1-24.0 [facility] ([facility]) NORMAL RANGES Age WBC RBC HGB HCT [...] HCT IS 5% LESS SOURCE FOR DATA: Enlighted 1800 OPERATION MANUAL( AUTOMATED BLOOD COUNTS AND [...] ADOLESCENTS REPRESENTS INDIVIDUALA AGED 2-19 YEARS EXCLUSIVE. Neutrophils [#/volume] in [place] by Manual count 4.7 % 2.0-7.8 [facility] ([facility]) NORMAL RANGES Age WBC RBC HGB HCT [...] HCT IS 5% LESS SOURCE FOR DATA: Enlighted 1800 OPERATION MANUAL( AUTOMATED BLOOD COUNTS AND [...] DESIRABLE: <130 MG/DL <110 MG/DL BORDERLINE-HIGH RISK: 130- 159 MG/DL 110-129 MG/DL HIGH RISK: >160 MG/DL >130 MG/DL *CHILDREN AND ADOLESCENTS REPRESENTS INDIVIDUALA AGED 2-19 YEARS EXCLUSIVE. MXD# 1.1 10E3/uL 0.0-1.8 [facility] ([facility]) NORMAL RANGES Age WBC RBC HGB HCT [...] HCT IS 5% LESS SOURCE FOR DATA: Enlighted 1800 OPERATION MANUAL( AUTOMATED BLOOD COUNTS AND [...] DESIRABLE: <130 MG/DL <110 MG/DL BORDERLINE-HIGH RISK: 130- 159 MG/DL 110-129 MG/DL HIGH RISK: >160 MG/DL >130 MG/DL *CHILDREN AND ADOLESCENTS REPRESENTS INDIVIDUALA AGED 2-19 YEARS EXCLUSIVE. Platelet mean volume [Entitic volume] in Blood by Kathy 10.5 f L 9.0-13.0 [facility] ([facility]) NORMAL RANGES Age WBC RBC HGB HCT [...] HCT IS 5% LESS SOURCE FOR DATA: Enlighted 1800 OPERATION MANUAL( AUTOMATED BLOOD COUNTS AND [...] ADOLESCENTS REPRESENTS INDIVIDUALA AGED 2-19 YEARS EXCLUSIVE. Glu 103 mg/dL 70-110 [facility] ([facility]) NORMAL RANGES Age WBC RBC HGB HCT [...] HCT IS 5% LESS SOURCE FOR DATA: Enlighted 1800 OPERATION MANUAL( AUTOMATED BLOOD COUNTS AND [...] ADOLESCENTS REPRESENTS INDIVIDUALA AGED 2-19 YEARS EXCLUSIVE. BUN 28 mg/dL 8- [facility]) NORMAL RANGES Age WBC RBC HGB HCT [...] ADOLESCENTS REPRESENTS INDIVIDUALA AGED 2-19 YEARS EXCLUSIVE. Na 139 mmol/L 136-145 [facility] ([facility]) NORMAL RANGES Age WBC RBC HGB HCT [...] HCT IS 5% LESS SOURCE FOR DATA: Enlighted 1800 OPERATION MANUAL( AUTOMATED BLOOD COUNTS AND [...] ADOLESCENTS REPRESENTS INDIVIDUALA AGED 2-19 YEARS EXCLUSIVE. Creat 1.3 mg/dL 0.7-1.2 [facility] ([facility]) NORMAL RANGES Age WBC RBC HGB HCT [...] HCT IS 5% LESS SOURCE FOR DATA: Enlighted 1800 OPERATION MANUAL( AUTOMATED BLOOD COUNTS AND [...] ADOLESCENTS REPRESENTS INDIVIDUALA AGED 2-19 YEARS EXCLUSIVE. Urea nitrogen/Creatinine [Mass Ratio] in Serum or Plasma 22.4 CALC [facility] ([facility]) NORMAL RANGES Age WBC RBC HGB HCT [...] HCT IS 5% LESS SOURCE FOR DATA: [employer] DYN 1800 OPERATION MANUAL( AUTOMATED BLOOD COUNTS [...] ADOLESCENTS REPRESENTS INDIVIDUALA AGED 2-19 YEARS EXCLUSIVE. K 3.8 mmol/L 3.5-5.1 [facility] ([facility]) NORMAL RANGES Age WBC RBC HGB HCT [...] HCT IS 5% LESS SOURCE FOR DATA: Enlighted 1800 OPERATION MANUAL( AUTOMATED BLOOD COUNTS AND [...] ADOLESCENTS REPRESENTS INDIVIDUALA AGED 2-19 YEARS EXCLUSIVE. CL 103.6 mmol/L 98.0-107.0 [facility] ([facility]) NORMAL RANGES Age WBC RBC HGB HCT [...] HCT IS 5% LESS SOURCE FOR DATA: Enlighted 1800 OPERATION MANUAL( AUTOMATED BLOOD COUNTS AND [...] ADOLESCENTS REPRESENTS INDIVIDUALA AGED 2-19 YEARS EXCLUSIVE. TP 6.8 g/dL 6.6-8.7 [facility] ([facility]) NORMAL RANGES Age WBC RBC HGB HCT [...] HCT IS 5% LESS SOURCE FOR DATA: [employer] DYN 1800 OPERATION MANUAL( AUTOMATED BLOOD COUNTS [...] ADOLESCENTS REPRESENTS INDIVIDUALA AGED 2-19 YEARS EXCLUSIVE. Co2 26.8 mmol/L 22.0-29.0 [facility] ([facility]) NORMAL RANGES Age WBC RBC HGB HCT [...] HCT IS 5% LESS SOURCE FOR DATA: Enlighted 1800 OPERATION MANUAL( AUTOMATED BLOOD COUNTS AND [...] ADOLESCENTS REPRESENTS INDIVIDUALA AGED 2-19 YEARS EXCLUSIVE. CA 8.5 mg/dL 8.6-10.2 [facility] ([facility]) NORMAL RANGES Age WBC RBC HGB HCT [...] HCT IS 5% LESS SOURCE FOR DATA: Enlighted 1800 OPERATION MANUAL( AUTOMATED BLOOD COUNTS AND [...] ADOLESCENTS REPRESENTS INDIVIDUALA AGED 2-19 YEARS EXCLUSIVE. Alb 3.9 g/dL 3.5-5.2 [facility] ([facility]) NORMAL RANGES Age WBC RBC HGB HCT [...] HCT IS 5% LESS SOURCE FOR DATA: Enlighted 1800 OPERATION MANUAL( AUTOMATED BLOOD COUNTS AND [...] ADOLESCENTS REPRESENTS INDIVIDUALA AGED 2-19 YEARS EXCLUSIVE. A/G Ratio 1.3 CALC [facility] ([facility] [place]) NORMAL RANGES Age WBC RBC HGB HCT [...] HCT IS 5% LESS SOURCE FOR DATA: Enlighted 1800 OPERATION MANUAL( AUTOMATED BLOOD COUNTS AND [...] ADOLESCENTS REPRESENTS INDIVIDUALA AGED 2-19 YEARS EXCLUSIVE. Alp 75.9 U/L 40-129 [facility] ([facility]) NORMAL RANGES Age WBC RBC HGB HCT [...] HCT IS 5% LESS SOURCE FOR DATA: Enlighted 1800 OPERATION MANUAL( AUTOMATED BLOOD COUNTS AND [...] ADOLESCENTS REPRESENTS INDIVIDUALA AGED 2-19 YEARS EXCLUSIVE. Alanine aminotransferase [Enzymatic activity/volume] in Seru m or Plasma 11 U/L 0-41 [facility] ([facility]) NORMAL RANGES Age WBC RBC HGB HCT [...] HCT IS 5% LESS SOURCE FOR DATA: Enlighted 1800 OPERATION MANUAL( AUTOMATED BLOOD COUNTS AND [...] ADOLESCENTS REPRESENTS INDIVIDUALA AGED 2-19 YEARS EXCLUSIVE. Globulin [Mass/volume] in Serum by calculation 2.9 CALC [facility] ([facility]) NORMAL RANGES Age WBC RBC HGB HCT [...] HCT IS 5% LESS SOURCE FOR DATA: Enlighted 1800 OPERATION MANUAL( AUTOMATED BLOOD COUNTS AND [...] DESIRABLE: <130 MG/DL <110 MG/DL BORDERLINE-HIGH RISK: 130- 159 MG/DL 110-129 MG/DL HIGH RISK: >160 MG/DL >130 MG/DL *CHILDREN AND ADOLESCENTS REPRESENTS INDIVIDUALA AGED 2-19 YEARS EXCLUSIVE. Osmolality-Calculated 284.0 CALC [facility] ([facility]) NORMAL RANGES Age WBC RBC HGB HCT [...] HCT IS 5% LESS SOURCE FOR DATA: Enlighted 1800 OPERATION MANUAL( AUTOMATED BLOOD COUNTS AND [...] DESIRABLE: <130 MG/DL <110 MG/DL BORDERLINE-HIGH RISK: 130- 159 MG/DL 110-129 MG/DL HIGH RISK: >160 MG/DL >130 MG/DL *CHILDREN AND ADOLESCENTS REPRESENTS INDIVIDUALA AGED 2-19 YEARS EXCLUSIVE. Aspartate aminotransferase [Enzymatic activity/volume] in Serum or Plasma 16 U/L 0-40 [facility] ([facility]) NORMAL RANGES Age WBC RBC HGB HCT [...] HCT IS 5% LESS SOURCE FOR DATA: Enlighted 1800 OPERATION MANUAL( AUTOMATED BLOOD COUNTS AND [...] ADOLESCENTS REPRESENTS INDIVIDUALA AGED 2-19 YEARS EXCLUSIVE. Tbili 0.55 mg/dL 0.0-1.2 [facility] ([facility]) NORMAL RANGES Age WBC RBC HGB HCT [...] HCT IS 5% LESS SOURCE FOR DATA: Enlighted 1800 OPERATION MANUAL( AUTOMATED BLOOD COUNTS AND [...] ADOLESCENTS REPRESENTS INDIVIDUALA AGED 2-19 YEARS EXCLUSIVE. Anion gap in Serum or Plasma 13 mmol/L [facility] ([facility]) NORMAL RANGES Age WBC RBC HGB HCT [...] HCT IS 5% LESS SOURCE FOR DATA: Enlighted 1800 OPERATION MANUAL( AUTOMATED BLOOD COUNTS AND [...] ADOLESCENTS REPRESENTS INDIVIDUALA AGED 2-19 YEARS EXCLUSIVE. eGFR 60 # [facility] ( [facility]) NORMAL RANGES Age WBC RBC HGB HCT [...] HCT IS 5% LESS SOURCE FOR DATA: Enlighted 1800 OPERATION MANUAL( AUTOMATED BLOOD COUNTS AND [...] ADOLESCENTS REPRESENTS INDIVIDUALA AGED 2-19 YEARS EXCLUSIVE. eGFR Non-Afr. Welsh 52 # [facility] ([facility]) NORMAL RANGES Age WBC RBC HGB HCT [...] HCT IS 5% LESS SOURCE FOR DATA: Enlighted 1800 OPERATION MANUAL( AUTOMATED BLOOD COUNTS AND [...] ADOLESCENTS REPRESENTS INDIVIDUALA AGED 2-19 YEARS EXCLUSIVE. Chol 156 mg/dL 0-200 [facility] ([facility]) NORMAL RANGES Age WBC RBC HGB HCT [...] HCT IS 5% LESS SOURCE FOR DATA: Enlighted 1800 OPERATION MANUAL( AUTOMATED BLOOD COUNTS AND [...] ADOLESCENTS REPRESENTS INDIVIDUALA AGED 2-19 YEARS EXCLUSIVE. LDL_C 97 Calc 75-129 [facility] ([facility]iology [facility]) NORMAL RANGES Age WBC RBC HGB HCT [...] HCT IS 5% LESS SOURCE FOR DATA: [employer] DYN 1800 OPERATION MANUAL( AUTOMATED BLOOD COUNTS [...] ADOLESCENTS REPRESENTS INDIVIDUALA AGED 2-19 YEARS EXCLUSIVE. Trig 118 mg/dL 35-200 [facility] ([facility]) NORMAL RANGES Age WBC RBC HGB HCT [...] HCT IS 5% LESS SOURCE FOR DATA: Enlighted 1800 OPERATION MANUAL( AUTOMATED BLOOD COUNTS AND [...] ADOLESCENTS REPRESENTS INDIVIDUALA AGED 2-19 YEARS EXCLUSIVE. Cholesterol in HDL [Mass/volume] in Serum or Plasma 35 mg/dL 35-55 [facility] ([facility]) NORMAL RANGES Age WBC RBC HGB HCT [...] HCT IS 5% LESS SOURCE FOR DATA: Enlighted 1800 OPERATION MANUAL( AUTOMATED BLOOD COUNTS AND [...] DESIRABLE: <130 MG/DL <110 MG/DL BORDERLINE-HIGH RISK: 130- 159 MG/DL 110-129 MG/DL HIGH RISK: >160 MG/DL >130 MG/DL *CHILDREN AND ADOLESCENTS REPRESENTS INDIVIDUALA AGED 2-19 YEARS EXCLUSIVE. Cho/HDL Ratio 4.4 Calc [facility] ([facility]) NORMAL RANGES Age WBC RBC HGB HCT [...] HCT IS 5% LESS SOURCE FOR DATA: Enlighted 1800 OPERATION MANUAL( AUTOMATED BLOOD COUNTS AND [...] DESIRABLE: <130 MG/DL <110 MG/DL BORDERLINE-HIGH RISK: 130- 159 MG/DL 110-129 MG/DL HIGH RISK: >160 MG/DL >130 MG/DL *CHILDREN AND ADOLESCENTS REPRESENTS INDIVIDUALA AGED 2-19 YEARS EXCLUSIVE. ID Date Data Source [id number] 11/07/2019 09:43:00 AM EDT [facility] ([facility] Name Value Range Interpretation Code Description Data Annette rce(s) Supporting Document(s) Chol 156 mg/dL 0-200 [facility] ([facility] NORMAL RANGES Age WBC RBC HGB HCT [...] HCT IS 5% LESS SOURCE FOR DATA: Enlighted 1800 OPERATION MANUAL( AUTOMATED BLOOD COUNTS AND [...] DESIRABLE: <130 MG/DL <110 MG/DL BORDERLINE-HIGH RISK: 130- 159 MG/DL 110-129 MG/DL HIGH RISK: >160 MG/DL >130 MG/DL *CHILDREN AND ADOLESCENTS REPRESENTS INDIVIDUALA AGED 2-19 YEARS EXCLUSIVE. Trig 118 mg/dL 35-200 [facility] ([facility] NORMAL RANGES Age WBC RBC HGB HCT [...] HCT IS 5% LESS SOURCE FOR DATA: [employer] DYN 1800 OPERATION MANUAL( AUTOMATED BLOOD COUNTS [...] DESIRABLE: <130 MG/DL <110 MG/DL BORDERLINE-HIGH RISK: 130- 159 MG/DL 110-129 MG/DL HIGH RISK: >160 MG/DL >130 MG/DL *CHILDREN AND ADOLESCENTS REPRESENTS INDIVIDUALA AGED 2-19 YEARS EXCLUSIVE. Cholesterol in HDL [Mass/volume] in Serum or Plasma 35 mg/dL 35-55 [facility] ([facility] NORMAL RANGES Age WBC RBC HGB HCT [...] HCT IS 5% LESS SOURCE FOR DATA: Enlighted 1800 OPERATION MANUAL( AUTOMATED BLOOD COUNTS AND [...] DESIRABLE: <130 MG/DL <110 MG/DL BORDERLINE-HIGH RISK: 130- 159 MG/DL 110-129 MG/DL HIGH RISK: >160 MG/DL >130 MG/DL *CHILDREN AND ADOLESCENTS REPRESENTS INDIVIDUALA AGED 2-19 YEARS EXCLUSIVE. LDL_C 97 Calc 75-129 [facility] ([facility] NORMAL RANGES Age WBC RBC HGB HCT [...] HCT IS 5% LESS SOURCE FOR DATA: Enlighted 1800 OPERATION MANUAL( AUTOMATED BLOOD COUNTS AND [...] DESIRABLE: <130 MG/DL <110 MG/DL BORDERLINE-HIGH RISK: 130- 159 MG/DL 110-129 MG/DL HIGH RISK: >160 MG/DL >130 MG/DL *CHILDREN AND ADOLESCENTS REPRESENTS INDIVIDUALA AGED 2-19 YEARS EXCLUSIVE. Cho/HDL Ratio 4.4 Calc [employer] ([facility] NORMAL RANGES Age WBC RBC HGB HCT [...] HCT IS 5% LESS SOURCE FOR DATA: [employer] DYN 1800 OPERATION MANUAL( AUTOMATED BLOOD COUNTS [...] DESIRABLE: <130 MG/DL <110 MG/DL BORDERLINE-HIGH RISK: 130- 159 MG/DL 110-129 MG/DL HIGH RISK: >160 MG/DL >130 MG/DL *CHILDREN AND ADOLESCENTS REPRESENTS INDIVIDUALA AGED 2-19 YEARS EXCLUSIVE. ID Date Data Source [id number] 11/07/2019 09:43:00 AM EDT [facility] ([facility] Name Value Range Interpretation Code Description Data Annette rce(s) Supporting Document(s) BUN 28 mg/dL 8-23 Above high normal [facility] ([facility] NORMAL RANGES Age WBC RBC HGB HCT [...] HCT IS 5% LESS SOURCE FOR DATA: Enlighted 1800 OPERATION MANUAL( AUTOMATED BLOOD COUNTS AND [...] DESIRABLE: <130 MG/DL <110 MG/DL BORDERLINE-HIGH RISK: 130- 159 MG/DL 110-129 MG/DL HIGH RISK: >160 MG/DL >130 MG/DL *CHILDREN AND ADOLESCENTS REPRESENTS INDIVIDUALA AGED 2-19 YEARS EXCLUSIVE. Glu 103 mg/dL 70-110 L[facility] ([facility] NORMAL RANGES Age WBC RBC HGB HCT [...] HCT IS 5% LESS SOURCE FOR DATA: Enlighted 1800 OPERATION MANUAL( AUTOMATED BLOOD COUNTS AND [...] DESIRABLE: <130 MG/DL <110 MG/DL BORDERLINE-HIGH RISK: 130- 159 MG/DL 110-129 MG/DL HIGH RISK: >160 MG/DL >130 MG/DL *CHILDREN AND ADOLESCENTS REPRESENTS INDIVIDUALA AGED 2-19 YEARS EXCLUSIVE. Creat 1.3 mg/dL 0.7-1.2 Above high normal [facility] ([facility] NORMAL RANGES Age WBC RBC HGB HCT [...] HCT IS 5% LESS SOURCE FOR DATA: Enlighted 1800 OPERATION MANUAL( AUTOMATED BLOOD COUNTS AND [...] DESIRABLE: <130 MG/DL <110 MG/DL BORDERLINE-HIGH RISK: 130- 159 MG/DL 110-129 MG/DL HIGH RISK: >160 MG/DL >130 MG/DL *CHILDREN AND ADOLESCENTS REPRESENTS INDIVIDUALA AGED 2-19 YEARS EXCLUSIVE. Na 139 mmol/L 136-145 [facility] ([facility] NORMAL RANGES Age WBC RBC HGB HCT [...] HCT IS 5% LESS SOURCE FOR DATA: Enlighted 1800 OPERATION MANUAL( AUTOMATED BLOOD COUNTS AND [...] DESIRABLE: <130 MG/DL <110 MG/DL BORDERLINE-HIGH RISK: 130- 159 MG/DL 110-129 MG/DL HIGH RISK: >160 MG/DL >130 MG/DL *CHILDREN AND ADOLESCENTS REPRESENTS INDIVIDUALA AGED 2-19 YEARS EXCLUSIVE. BUN/Creatinine Ratio 22.4 CALC [facility] ([facility] NORMAL RANGES Age WBC RBC HGB HCT [...] HCT IS 5% LESS SOURCE FOR DATA: Enlighted 1800 OPERATION MANUAL( AUTOMATED BLOOD COUNTS AND [...] DESIRABLE: <130 MG/DL <110 MG/DL BORDERLINE-HIGH RISK: 130- 159 MG/DL 110-129 MG/DL HIGH RISK: >160 MG/DL >130 MG/DL *CHILDREN AND ADOLESCENTS REPRESENTS INDIVIDUALA AGED 2-19 YEARS EXCLUSIVE. K 3.8 mmol/L 3.5-5.1 [facility] ([facility] NORMAL RANGES Age WBC RBC HGB HCT [...] HCT IS 5% LESS SOURCE FOR DATA: Enlighted 1800 OPERATION MANUAL( AUTOMATED BLOOD COUNTS AND [...] DESIRABLE: <130 MG/DL <110 MG/DL BORDERLINE-HIGH RISK: 130- 159 MG/DL 110-129 MG/DL HIGH RISK: >160 MG/DL >130 MG/DL *CHILDREN AND ADOLESCENTS REPRESENTS INDIVIDUALA AGED 2-19 YEARS EXCLUSIVE. CL 103.6 mmol/L 98.0-107.0 [facility] NORMAL RANGES Age WBC RBC HGB HCT [...] HCT IS 5% LESS SOURCE FOR DATA: Enlighted 1800 OPERATION MANUAL( AUTOMATED BLOOD COUNTS AND [...] DESIRABLE: <130 MG/DL <110 MG/DL BORDERLINE-HIGH RISK: 130- 159 MG/DL 110-129 MG/DL HIGH RISK: >160 MG/DL >130 MG/DL *CHILDREN AND ADOLESCENTS REPRESENTS INDIVIDUALA AGED 2-19 YEARS EXCLUSIVE. Co2 26.8 mmol/L 22.0-29.0 [facility] ([facility] NORMAL RANGES Age WBC RBC HGB HCT [...] HCT IS 5% LESS SOURCE FOR DATA: Enlighted 1800 OPERATION MANUAL( AUTOMATED BLOOD COUNTS AND [...] DESIRABLE: <130 MG/DL <110 MG/DL BORDERLINE-HIGH RISK: 130- 159 MG/DL 110-129 MG/DL HIGH RISK: >160 MG/DL >130 MG/DL *CHILDREN AND ADOLESCENTS REPRESENTS INDIVIDUALA AGED 2-19 YEARS EXCLUSIVE. TP 6.8 g/dL 6.6-8.7 [facility] ([facility] NORMAL RANGES Age WBC RBC HGB HCT [...] HCT IS 5% LESS SOURCE FOR DATA: Enlighted 1800 OPERATION MANUAL( AUTOMATED BLOOD COUNTS AND [...] DESIRABLE: <130 MG/DL <110 MG/DL BORDERLINE-HIGH RISK: 130- 159 MG/DL 110-129 MG/DL HIGH RISK: >160 MG/DL >130 MG/DL *CHILDREN AND ADOLESCENTS REPRESENTS INDIVIDUALA AGED 2-19 YEARS EXCLUSIVE. CA 8.5 mg/dL 8.6-10.2 Below low normal [facility] ( [facility] NORMAL RANGES Age WBC RBC HGB HCT [...] HCT IS 5% LESS SOURCE FOR DATA: Enlighted 1800 OPERATION MANUAL( AUTOMATED BLOOD COUNTS AND [...] DESIRABLE: <130 MG/DL <110 MG/DL BORDERLINE-HIGH RISK: 130- 159 MG/DL 110-129 MG/DL HIGH RISK: >160 MG/DL >130 MG/DL *CHILDREN AND ADOLESCENTS REPRESENTS INDIVIDUALA AGED 2-19 YEARS EXCLUSIVE. Alb 3.9 g/dL 3.5-5.2 [facility] ([facility] NORMAL RANGES Age WBC RBC HGB HCT [...] HCT IS 5% LESS SOURCE FOR DATA: [employer] DYN 1800 OPERATION MANUAL( AUTOMATED BLOOD COUNTS [...] DESIRABLE: <130 MG/DL <110 MG/DL BORDERLINE-HIGH RISK: 130- 159 MG/DL 110-129 MG/DL HIGH RISK: >160 MG/DL >130 MG/DL *CHILDREN AND ADOLESCENTS REPRESENTS INDIVIDUALA AGED 2-19 YEARS EXCLUSIVE. A/G Ratio 1.3 CALC [facility] ([facility] NORMAL RANGES Age WBC RBC HGB HCT [...] HCT IS 5% LESS SOURCE FOR DATA: Enlighted 1800 OPERATION MANUAL( AUTOMATED BLOOD COUNTS AND [...] DESIRABLE: <130 MG/DL <110 MG/DL BORDERLINE-HIGH RISK: 130- 159 MG/DL 110-129 MG/DL HIGH RISK: >160 MG/DL >130 MG/DL *CHILDREN AND ADOLESCENTS REPRESENTS INDIVIDUALA AGED 2-19 YEARS EXCLUSIVE. Alp 75.9 U/L 40-129 [facility] ([facility] NORMAL RANGES Age WBC RBC HGB HCT [...] HCT IS 5% LESS SOURCE FOR DATA: Enlighted 1800 OPERATION MANUAL( AUTOMATED BLOOD COUNTS AND [...] DESIRABLE: <130 MG/DL <110 MG/DL BORDERLINE-HIGH RISK: 130- 159 MG/DL 110-129 MG/DL HIGH RISK: >160 MG/DL >130 MG/DL *CHILDREN AND ADOLESCENTS REPRESENTS INDIVIDUALA AGED 2-19 YEARS EXCLUSIVE. Globulin 2.9 CALC [employer] ([facility] NORMAL RANGES Age WBC RBC HGB HCT [...] HCT IS 5% LESS SOURCE FOR DATA: Enlighted 1800 OPERATION MANUAL( AUTOMATED BLOOD COUNTS AND [...] DESIRABLE: <130 MG/DL <110 MG/DL BORDERLINE-HIGH RISK: 130- 159 MG/DL 110-129 MG/DL HIGH RISK: >160 MG/DL >130 MG/DL *CHILDREN AND ADOLESCENTS REPRESENTS INDIVIDUALA AGED 2-19 YEARS EXCLUSIVE. Alt (SGPT) 11 U/L 0-41 [facility] NORMAL RANGES Age WBC RBC HGB HCT [...] HCT IS 5% LESS SOURCE FOR DATA: Enlighted 1800 OPERATION MANUAL( AUTOMATED BLOOD COUNTS AND [...] DESIRABLE: <130 MG/DL <110 MG/DL BORDERLINE-HIGH RISK: 130- 159 MG/DL 110-129 MG/DL HIGH RISK: >160 MG/DL >130 MG/DL *CHILDREN AND ADOLESCENTS REPRESENTS INDIVIDUALA AGED 2-19 YEARS EXCLUSIVE. Tbili 0.55 mg/dL 0.0-1.2 [facility] ([facility] NORMAL RANGES Age WBC RBC HGB HCT [...] HCT IS 5% LESS SOURCE FOR DATA: [employer] DYN 1800 OPERATION MANUAL( AUTOMATED BLOOD COUNTS [...] DESIRABLE: <130 MG/DL <110 MG/DL BORDERLINE-HIGH RISK: 130- 159 MG/DL 110-129 MG/DL HIGH RISK: >160 MG/DL >130 MG/DL *CHILDREN AND ADOLESCENTS REPRESENTS INDIVIDUALA AGED 2-19 YEARS EXCLUSIVE. Ast (Sgot) 16 U/L 0-40 [facility] NORMAL RANGES Age WBC RBC HGB HCT [...] HCT IS 5% LESS SOURCE FOR DATA: Enlighted 1800 OPERATION MANUAL( AUTOMATED BLOOD COUNTS AND [...] DESIRABLE: <130 MG/DL <110 MG/DL BORDERLINE-HIGH RISK: 130- 159 MG/DL 110-129 MG/DL HIGH RISK: >160 MG/DL >130 MG/DL *CHILDREN AND ADOLESCENTS REPRESENTS INDIVIDUALA AGED 2-19 YEARS EXCLUSIVE. Osmolality-Calculated 284.0 CALC [facility] ([facility] NORMAL RANGES Age WBC RBC HGB HCT [...] HCT IS 5% LESS SOURCE FOR DATA: Enlighted 1800 OPERATION MANUAL( AUTOMATED BLOOD COUNTS AND [...] DESIRABLE: <130 MG/DL <110 MG/DL BORDERLINE-HIGH RISK: 130- 159 MG/DL 110-129 MG/DL HIGH RISK: >160 MG/DL >130 MG/DL *CHILDREN AND ADOLESCENTS REPRESENTS INDIVIDUALA AGED 2-19 YEARS EXCLUSIVE. Anion Gap 13 mmol/L [facility] NORMAL RANGES Age WBC RBC HGB HCT [...] HCT IS 5% LESS SOURCE FOR DATA: Enlighted 1800 OPERATION MANUAL( AUTOMATED BLOOD COUNTS AND [...] DESIRABLE: <130 MG/DL <110 MG/DL BORDERLINE-HIGH RISK: 130- 159 MG/DL 110-129 MG/DL HIGH RISK: >160 MG/DL >130 MG/DL *CHILDREN AND ADOLESCENTS REPRESENTS INDIVIDUALA AGED 2-19 YEARS EXCLUSIVE. eGFR 60 # [facility] ( [facility] NORMAL RANGES Age WBC RBC HGB HCT [...] HCT IS 5% LESS SOURCE FOR DATA: Enlighted 1800 OPERATION MANUAL( AUTOMATED BLOOD COUNTS AND [...] DESIRABLE: <130 MG/DL <110 MG/DL BORDERLINE-HIGH RISK: 130- 159 MG/DL 110-129 MG/DL HIGH RISK: >160 MG/DL >130 MG/DL *CHILDREN AND ADOLESCENTS REPRESENTS INDIVIDUALA AGED 2-19 YEARS EXCLUSIVE. eGFR Non-Afr. Welsh 52 # [facility] ([facility] NORMAL RANGES Age WBC RBC HGB HCT [...] HCT IS 5% LESS SOURCE FOR DATA: Enlighted 1800 OPERATION MANUAL( AUTOMATED BLOOD COUNTS AND [...] DESIRABLE: <130 MG/DL <110 MG/DL BORDERLINE-HIGH RISK: 130- 159 MG/DL 110-129 MG/DL HIGH RISK: >160 MG/DL >130 MG/DL *CHILDREN AND ADOLESCENTS REPRESENTS INDIVIDUALA AGED 2-19 YEARS EXCLUSIVE. ID Date Data Source [id number] 11/07/2019 09:43:00 AM EDT [facility] ([facility] Name Value Range Interpretation Code Description Data Annette rce(s) Supporting Document(s) WBC 6.4 10E3/uL 4.1-10.9 [facility] ([facility] NORMAL RANGES Age WBC RBC HGB HCT [...] HCT IS 5% LESS SOURCE FOR DATA: Enlighted 1800 OPERATION MANUAL( AUTOMATED BLOOD COUNTS AND [...] DESIRABLE: <130 MG/DL <110 MG/DL BORDERLINE-HIGH RISK: 130- 159 MG/DL 110-129 MG/DL HIGH RISK: >160 MG/DL >130 MG/DL *CHILDREN AND ADOLESCENTS REPRESENTS INDIVIDUALA AGED 2-19 YEARS EXCLUSIVE. RBC 3.35 10E6/uL 4.20-6.30 Below low normal [facility] ([facility] NORMAL RANGES Age WBC RBC HGB HCT [...] HCT IS 5% LESS SOURCE FOR DATA: Enlighted 1800 OPERATION MANUAL( AUTOMATED BLOOD COUNTS AND [...] DESIRABLE: <130 MG/DL <110 MG/DL BORDERLINE-HIGH RISK: 130- 159 MG/DL 110-129 MG/DL HIGH RISK: >160 MG/DL >130 MG/DL *CHILDREN AND ADOLESCENTS REPRESENTS INDIVIDUALA AGED 2-19 YEARS EXCLUSIVE. HGB 11.2 g/dL 12.0-18.0 Below low normal [facility] ( [facility] NORMAL RANGES Age WBC RBC HGB HCT [...] HCT IS 5% LESS SOURCE FOR DATA: Enlighted 1800 OPERATION MANUAL( AUTOMATED BLOOD COUNTS AND [...] DESIRABLE: <130 MG/DL <110 MG/DL BORDERLINE-HIGH RISK: 130- 159 MG/DL 110-129 MG/DL HIGH RISK: >160 MG/DL >130 MG/DL *CHILDREN AND ADOLESCENTS REPRESENTS INDIVIDUALA AGED 2-19 YEARS EXCLUSIVE. HCT 33.2 % 37.0-51.0 Below low normal [facility] ( [facility] NORMAL RANGES Age WBC RBC HGB HCT [...] DESIRABLE: <130 MG/DL <110 MG/DL BORDERLINE-HIGH RISK: 130- 159 MG/DL 110-129 MG/DL HIGH RISK: >160 MG/DL >130 MG/DL *CHILDREN AND ADOLESCENTS REPRESENTS INDIVIDUALA AGED 2-19 YEARS EXCLUSIVE. MCV 99.1 fL 80.0-97.0 Above high normal [facility] ([facility] NORMAL RANGES Age WBC RBC HGB HCT [...] HCT IS 5% LESS SOURCE FOR DATA: Enlighted 1800 OPERATION MANUAL( AUTOMATED BLOOD COUNTS AND [...] DESIRABLE: <130 MG/DL <110 MG/DL BORDERLINE-HIGH RISK: 130- 159 MG/DL 110-129 MG/DL HIGH RISK: >160 MG/DL >130 MG/DL *CHILDREN AND ADOLESCENTS REPRESENTS INDIVIDUALA AGED 2-19 YEARS EXCLUSIVE. MCH 33.4 pg 26.0-32.0 Above high normal [facility] ([facility] NORMAL RANGES Age WBC RBC HGB HCT [...] HCT IS 5% LESS SOURCE FOR DATA: Enlighted 1800 OPERATION MANUAL( AUTOMATED BLOOD COUNTS AND [...] DESIRABLE: <130 MG/DL <110 MG/DL BORDERLINE-HIGH RISK: 130- 159 MG/DL 110-129 MG/DL HIGH RISK: >160 MG/DL >130 MG/DL *CHILDREN AND ADOLESCENTS REPRESENTS INDIVIDUALA AGED 2-19 YEARS EXCLUSIVE. MCHC 33.7 g/dL 31.0-36.0 [facility] ([facility] NORMAL RANGES Age WBC RBC HGB HCT [...] HCT IS 5% LESS SOURCE FOR DATA: [employer] DYN 1800 OPERATION MANUAL( AUTOMATED BLOOD COUNTS [...] DESIRABLE: <130 MG/DL <110 MG/DL BORDERLINE-HIGH RISK: 130- 159 MG/DL 110-129 MG/DL HIGH RISK: >160 MG/DL >130 MG/DL *CHILDREN AND ADOLESCENTS REPRESENTS INDIVIDUALA AGED 2-19 YEARS EXCLUSIVE. RDW-CV 16.0 % 11.5-14.5 Above high normal [facility] ([facility] NORMAL RANGES Age WBC RBC HGB HCT [...] HCT IS 5% LESS SOURCE FOR DATA: Enlighted 1800 OPERATION MANUAL( AUTOMATED BLOOD COUNTS AND [...] DESIRABLE: <130 MG/DL <110 MG/DL BORDERLINE-HIGH RISK: 130- 159 MG/DL 110-129 MG/DL HIGH RISK: >160 MG/DL >130 MG/DL *CHILDREN AND ADOLESCENTS REPRESENTS INDIVIDUALA AGED 2-19 YEARS EXCLUSIVE. PLT 173 10E3/uL 140-440 [facility] ([facility] NORMAL RANGES Age WBC RBC HGB HCT [...] HCT IS 5% LESS SOURCE FOR DATA: Enlighted 1800 OPERATION MANUAL( AUTOMATED BLOOD COUNTS AND [...] DESIRABLE: <130 MG/DL <110 MG/DL BORDERLINE-HIGH RISK: 130- 159 MG/DL 110-129 MG/DL HIGH RISK: >160 MG/DL >130 MG/DL *CHILDREN AND ADOLESCENTS REPRESENTS INDIVIDUALA AGED 2-19 YEARS EXCLUSIVE. MXD% 17.8 % 0.1-24.0 [facility] ([facility] NORMAL RANGES Age WBC RBC HGB HCT [...] HCT IS 5% LESS SOURCE FOR DATA: Enlighted 1800 OPERATION MANUAL( AUTOMATED BLOOD COUNTS AND [...] DESIRABLE: <130 MG/DL <110 MG/DL BORDERLINE-HIGH RISK: 130- 159 MG/DL 110-129 MG/DL HIGH RISK: >160 MG/DL >130 MG/DL *CHILDREN AND ADOLESCENTS REPRESENTS INDIVIDUALA AGED 2-19 YEARS EXCLUSIVE. Neut% 73.1 % 37.0-92.0 [facility] ([facility] NORMAL RANGES Age WBC RBC HGB HCT [...] HCT IS 5% LESS SOURCE FOR DATA: Enlighted 1800 OPERATION MANUAL( AUTOMATED BLOOD COUNTS AND [...] DESIRABLE: <130 MG/DL <110 MG/DL BORDERLINE-HIGH RISK: 130- 159 MG/DL 110-129 MG/DL HIGH RISK: >160 MG/DL >130 MG/DL *CHILDREN AND ADOLESCENTS REPRESENTS INDIVIDUALA AGED 2-19 YEARS EXCLUSIVE. Lym% 9.1 % 10.0-58.5 Below low normal [facility] ( [facility] NORMAL RANGES Age WBC RBC HGB HCT [...] HCT IS 5% LESS SOURCE FOR DATA: Enlighted 1800 OPERATION MANUAL( AUTOMATED BLOOD COUNTS AND [...] DESIRABLE: <130 MG/DL <110 MG/DL BORDERLINE-HIGH RISK: 130- 159 MG/DL 110-129 MG/DL HIGH RISK: >160 MG/DL >130 MG/DL *CHILDREN AND ADOLESCENTS REPRESENTS INDIVIDUALA AGED 2-19 YEARS EXCLUSIVE. Lym# 0.6 10E3/uL 0.6-4.1 [facility] ([facility] NORMAL RANGES Age WBC RBC HGB HCT [...] HCT IS 5% LESS SOURCE FOR DATA: Enlighted 1800 OPERATION MANUAL( AUTOMATED BLOOD COUNTS AND [...] DESIRABLE: <130 MG/DL <110 MG/DL BORDERLINE-HIGH RISK: 130- 159 MG/DL 110-129 MG/DL HIGH RISK: >160 MG/DL >130 MG/DL *CHILDREN AND ADOLESCENTS REPRESENTS INDIVIDUALA AGED 2-19 YEARS EXCLUSIVE. Neut# 4.7 % 2.0-7.8 [facility] ([facility] NORMAL RANGES Age WBC RBC HGB HCT [...] HCT IS 5% LESS SOURCE FOR DATA: Enlighted 1800 OPERATION MANUAL( AUTOMATED BLOOD COUNTS AND [...] DESIRABLE: <130 MG/DL <110 MG/DL BORDERLINE-HIGH RISK: 130- 159 MG/DL 110-129 MG/DL HIGH RISK: >160 MG/DL >130 MG/DL *CHILDREN AND ADOLESCENTS REPRESENTS INDIVIDUALA AGED 2-19 YEARS EXCLUSIVE. MXD# 1.1 10E3/uL 0.0-1.8 [facility] ([facility] NORMAL RANGES Age WBC RBC HGB HCT [...] HCT IS 5% LESS SOURCE FOR DATA: Enlighted 1800 OPERATION MANUAL( AUTOMATED BLOOD COUNTS AND [...] DESIRABLE: <130 MG/DL <110 MG/DL BORDERLINE-HIGH RISK: 130- 159 MG/DL 110-129 MG/DL HIGH RISK: >160 MG/DL >130 MG/DL *CHILDREN AND ADOLESCENTS REPRESENTS INDIVIDUALA AGED 2-19 YEARS EXCLUSIVE. MPV 10.5 fL 9.0-13.0 [facility] ([facility] NORMAL RANGES Age WBC RBC HGB HCT [...] HCT IS 5% LESS SOURCE FOR DATA: Enlighted 1800 OPERATION MANUAL( AUTOMATED BLOOD COUNTS AND [...] DESIRABLE: <130 MG/DL <110 MG/DL BORDERLINE-HIGH RISK: 130- 159 MG/DL 110-129 MG/DL HIGH RISK: >160 MG/DL >130 MG/DL *CHILDREN AND ADOLESCENTS REPRESENTS INDIVIDUALA AGED 2-19 YEARS EXCLUSIVE. ID Date Data Source [id number] 10/27/2019 09:17:00 AM EDT LILL[facility] ([facility]) Name Value Range Interpretation Code Description Data Annette rce(s) Supporting Document(s) Prothrombin Time 30.3 s 11.8-14.0 [facility] ([facility]) Inr 2.91 [facility] ([facility]) THERAPUTIC HUMAN INR VALUES INDICATIONS NORMAL RANGES PROPHYLAXIS/TREATMENT OF: VENOUS THROMBOSIS 2.0-3.0 PULMONARY EMBOLISM 2.0-3.0 PREVENTION OF SYSTEMIC EMBOLISM FROM: TISSUE HEART VALVES 2.0-3.0 ACUTE MYOCARDIAL INFARCTION 2.0-3.0 VALVULAR HEART DISEASE 2.0-3.0 ATRIAL FIBRILLATION 2.0-3.0 MECHANICAL VALVES(HIGH RISK) 2.5-3.5 RECURRENT MYOCARDIAL INFARCTION 2.5-3.5 ID Date Data Source [id number] 10/27/2019 09:17:00 AM EDT [facility] ([facility] Name Value Range Interpretation Code Description Data Annette rce(s) Supporting Document(s) Prothrombin Time 30.3 s 11.8-14.0 Above high normal M [facility] ([facility] Inr 2.91 Normal (applies to non-numeric resul ts) [facility] ([facility] THERAPUTIC HUMAN INR VALUES INDICATIONS NORMAL RANGES PROPHYLAXIS/TREATMENT OF: VENOUS THROMBOSIS 2.0-3.0 PULMONARY EMBOLISM 2.0-3.0 PREVENTION OF SYSTEMIC EMBOLISM FROM: TISSUE HEART VALVES 2.0-3.0 ACUTE MYOCARDIAL INFARCTION 2.0-3.0 VALVULAR HEART DISEASE 2.0-3.0 ATRIAL FIBRILLATION 2.0-3.0 MECHANICAL VALVES(HIGH RISK) 2.5-3.5 RECURRENT MYOCARDIAL INFARCTION 2.5-3.5 ID Date Data Source [id number] 10/20/2019 08:58:00 AM EDT [facility] ([facility]) Name Value Range Interpretation Code Description Data Annette rce(s) Supporting Document(s) Prothrombin Time 24.8 s 11.8-14.0 [facility] ([facility]) Inr 2.26 [facility] ([facility]) THERAPUTIC HUMAN INR VALUES INDICATIONS NORMAL RANGES PROPHYLAXIS/TREATMENT OF: VENOUS THROMBOSIS 2.0-3.0 PULMONARY EMBOLISM 2.0-3.0 PREVENTION OF SYSTEMIC EMBOLISM FROM: TISSUE HEART VALVES 2.0-3.0 ACUTE MYOCARDIAL INFARCTION 2.0-3.0 VALVULAR HEART DISEASE 2.0-3.0 ATRIAL FIBRILLATION 2.0-3.0 MECHANICAL VALVES(HIGH RISK) 2.5-3.5 RECURRENT MYOCARDIAL INFARCTION 2.5-3.5 ID Date Data Source [id number] 10/20/2019 08:58:00 AM EDT [facility] ([facility] Name Value Range Interpretation Code Description Data Annette rce(s) Supporting Document(s) Inr 2.26 Normal (applies to non-numeric resul ts) [facility] ([facility] THERAPUTIC HUMAN INR VALUES INDICATIONS NORMAL RANGES PROPHYLAXIS/TREATMENT OF: VENOUS THROMBOSIS 2.0-3.0 PULMONARY EMBOLISM 2.0-3.0 PREVENTION OF SYSTEMIC EMBOLISM FROM: TISSUE HEART VALVES 2.0-3.0 ACUTE MYOCARDIAL INFARCTION 2.0-3.0 VALVULAR HEART DISEASE 2.0-3.0 ATRIAL FIBRILLATION 2.0-3.0 MECHANICAL VALVES(HIGH RISK) 2.5-3.5 RECURRENT MYOCARDIAL INFARCTION 2.5-3.5 Prothrombin Time 24.8 s 11.8-14.0 Above high normal M [facility] ([facility] ID Date Data Source [id number] 10/14/2019 09:55:00 AM EDT [facility] ([facility] Name Value Range Interpretation Code Description Data Annette rce(s) Supporting Document(s) Prothrombin Time 48.7 s 11.8-14.0 Above high normal M [facility] ([facility] Inr 5.26 Above upper panic limits [facility] ([facility] THERAPUTIC HUMAN INR VALUES INDICATIONS NORMAL RANGES PROPHYLAXIS/TREATMENT OF: VENOUS THROMBOSIS 2.0-3.0 PULMONARY EMBOLISM 2.0-3.0 PREVENTION OF SYSTEMIC EMBOLISM FROM: TISSUE HEART VALVES 2.0-3.0 ACUTE MYOCARDIAL INFARCTION 2.0-3.0 VALVULAR HEART DISEASE 2.0-3.0 ATRIAL FIBRILLATION 2.0-3.0 MECHANICAL VALVES(HIGH RISK) 2.5-3.5 RECURRENT MYOCARDIAL INFARCTION 2.5-3.5 ID Date Data Source [id number] 10/14/2019 09:55:00 AM EDT [facility] ([facility]) Name Value Range Interpretation Code Description Data Annette rce(s) Supporting Document(s) Prothrombin Time 48.7 s 11.8-14.0 [facility] ([facility]) Inr 5.26 Above upper panic limits [facility]EN T ([facility]) THERAPUTIC HUMAN INR VALUES INDICATIONS NORMAL RANGES PROPHYLAXIS/TREATMENT OF: VENOUS THROMBOSIS 2.0-3.0 PULMONARY EMBOLISM 2.0-3.0 PREVENTION OF SYSTEMIC EMBOLISM FROM: TISSUE HEART VALVES 2.0-3.0 ACUTE MYOCARDIAL INFARCTION 2.0-3.0 VALVULAR HEART DISEASE 2.0-3.0 ATRIAL FIBRILLATION 2.0-3.0 MECHANICAL VALVES(HIGH RISK) 2.5-3.5 RECURRENT MYOCARDIAL INFARCTION 2.5-3.5 ID Date Data Source [id number] 09/29/2019 10:58:00 AM EDT [facility] ([facility] Name Value Range Interpretation Code Description Data Annette rce(s) Supporting Document(s) Prothrombin Time 41.0 s 11.8-14.0 Above high normal M [facility] ([facility] Inr 4.24 Normal (applies to non-numeric resul ts) [facility] ([facility] THERAPUTIC HUMAN INR VALUES INDICATIONS NORMAL RANGES PROPHYLAXIS/TREATMENT OF: VENOUS THROMBOSIS 2.0-3.0 PULMONARY EMBOLISM 2.0-3.0 PREVENTION OF SYSTEMIC EMBOLISM FROM: TISSUE HEART VALVES 2.0-3.0 ACUTE MYOCARDIAL INFARCTION 2.0-3.0 VALVULAR HEART DISEASE 2.0-3.0 ATRIAL FIBRILLATION 2.0-3.0 MECHANICAL VALVES(HIGH RISK) 2.5-3.5 RECURRENT MYOCARDIAL INFARCTION 2.5-3.5 ID Date Data Source [id number] 09/29/2019 10:58:00 AM EDT [facility] ([facility]) Name Value Range Interpretation Code Description Data Annette rce(s) Supporting Document(s) Prothrombin Time 41.0 s 11.8-14.0 [facility] ([facility]) Inr 4.24 [facility] ([facility]) THERAPUTIC HUMAN INR VALUES INDICATIONS NORMAL RANGES PROPHYLAXIS/TREATMENT OF: VENOUS THROMBOSIS 2.0-3.0 PULMONARY EMBOLISM 2.0-3.0 PREVENTION OF SYSTEMIC EMBOLISM FROM: TISSUE HEART VALVES 2.0-3.0 ACUTE MYOCARDIAL INFARCTION 2.0-3.0 VALVULAR HEART DISEASE 2.0-3.0 ATRIAL FIBRILLATION 2.0-3.0 MECHANICAL VALVES(HIGH RISK) 2.5-3.5 RECURRENT MYOCARDIAL INFARCTION 2.5-3.5 ID Date Data Source [id number] 09/04/2019 03:40:00 PM EDT [facility] ([facility]) Name Value Range Interpretation Code Description Data Annette rce(s) Supporting Document(s) Magnesium Level 2.17 [facility] ([facility] [place]) ID Date Data Source [id number] 09/04/2019 03:40:00 PM EDT [facility] ([facility]) Name Value Range Interpretation Code Description Data Annette rce(s) Supporting Document(s) White Blood Count 8.1 4.3-10.9 [facility] ([facility]) Hemoglobin 12.8 13.0-17.0 [facility] ([facility] [place]) Platelets 256 130-400 [facility] [place] Red Blood Count 3.93 4.70-6.20 [facility] ([facility]) Hematocrit 38.3 39.0-50.0 [facility] ([facility] [place]) ID Date Data Source [id number] 09/04/2019 03:40:00 PM EDT [facility] ([facility]) Name Value Range Interpretation Code Description Data Annette rce(s) Supporting Document(s) Blood Urea Nitrogen 26.1 5-21 [facility] ([facility]) Glucose 108 70-100 [facility] ([facility] [place] Creatinine 1.21 0.6-1.5 [facility] ([facility] [place]) Sodium 139.3 136-146 [facility] [place] Glomerular filtration rate/1.73 sq M.pre dicted [Volume Rate/Area] in Serum or Plasma by Creatinine-based formula (MDRD) 58 [facility] ([facility] [place]) Potassium 3.76 3.5-5.3 [facility] [place] Chloride 104.6 98-110 [facility] [place] Carbon Dioxide 32.8 20-32 [facility] ([facility] [place]) Phosphorus 2.83 [facility] ([facility] [place]) Calcium 8.15 8.4-10.4 [facility] ([facility] [place] Albumin 3.9 3.5-4.7 [facility] ([facility] [place] ID Date Data Source [id number] 09/03/2019 09:35:00 AM EDT [facility] ([facility] Name Value Range Interpretation Code Description Data Annette rce(s) Supporting Document(s) Prothrombin Time 29.0 s 11.8-14.0 Above high normal M [facility] ([facility] Inr 2.75 Normal (applies to non-numeric resul ts) [facility] ([facility] THERAPUTIC HUMAN INR VALUES INDICATIONS NORMAL RANGES PROPHYLAXIS/TREATMENT OF: VENOUS THROMBOSIS 2.0-3.0 PULMONARY EMBOLISM 2.0-3.0 PREVENTION OF SYSTEMIC EMBOLISM FROM: TISSUE HEART VALVES 2.0-3.0 ACUTE MYOCARDIAL INFARCTION 2.0-3.0 VALVULAR HEART DISEASE 2.0-3.0 ATRIAL FIBRILLATION 2.0-3.0 MECHANICAL VALVES(HIGH RISK) 2.5-3.5 RECURRENT MYOCARDIAL INFARCTION 2.5-3.5 ID Date Data Source [id number] 09/03/2019 09:35:00 AM EDT [facility] ([facility] Name Value Range Interpretation Code Description Data Annette rce(s) Supporting Document(s) Prothrombin Time 29.0 s 11.8-14.0 [facility] Inr 2.75 [facility] ([facility] THERAPUTIC HUMAN INR VALUES INDICATIONS NORMAL RANGES PROPHYLAXIS/TREATMENT OF: VENOUS THROMBOSIS 2.0-3.0 PULMONARY EMBOLISM 2.0-3.0 PREVENTION OF SYSTEMIC EMBOLISM FROM: TISSUE HEART VALVES 2.0-3.0 ACUTE MYOCARDIAL INFARCTION 2.0-3.0 VALVULAR HEART DISEASE 2.0-3.0 ATRIAL FIBRILLATION 2.0-3.0 MECHANICAL VALVES(HIGH RISK) 2.5-3.5 RECURRENT MYOCARDIAL INFARCTION 2.5-3.5 ID Date Data Source [id number] 08/21/2019 09:15:00 AM EDT [facility] ([facility] Name Value Range Interpretation Code Description Data Annette rce(s) Supporting Document(s) Inr 2.26 Normal (applies to non-numeric resul ts) [facility] ([facility] THERAPUTIC HUMAN INR VALUES INDICATIONS NORMAL RANGES PROPHYLAXIS/TREATMENT OF: VENOUS THROMBOSIS 2.0-3.0 PULMONARY EMBOLISM 2.0-3.0 PREVENTION OF SYSTEMIC EMBOLISM FROM: TISSUE HEART VALVES 2.0-3.0 ACUTE MYOCARDIAL INFARCTION 2.0-3.0 VALVULAR HEART DISEASE 2.0-3.0 ATRIAL FIBRILLATION 2.0-3.0 MECHANICAL VALVES(HIGH RISK) 2.5-3.5 RECURRENT MYOCARDIAL INFARCTION 2.5-3.5 Prothrombin Time 24.7 s 11.8-14.0 Above high normal M [facility] ([facility] ID Date Data Source [id number] 08/21/2019 09:15:00 AM EDT [facility] ([facility]) Name Value Range Interpretation Code Description Data Annette rce(s) Supporting Document(s) Prothrombin Time 24.7 s 11.8-14.0 [facility] ([facility]) Inr 2.26 [facility] ([facility]) THERAPUTIC HUMAN INR VALUES INDICATIONS NORMAL RANGES PROPHYLAXIS/TREATMENT OF: VENOUS THROMBOSIS 2.0-3.0 PULMONARY EMBOLISM 2.0-3.0 PREVENTION OF SYSTEMIC EMBOLISM FROM: TISSUE HEART VALVES 2.0-3.0 ACUTE MYOCARDIAL INFARCTION 2.0-3.0 VALVULAR HEART DISEASE 2.0-3.0 ATRIAL FIBRILLATION 2.0-3.0 MECHANICAL VALVES(HIGH RISK) 2.5-3.5 RECURRENT MYOCARDIAL INFARCTION 2.5-3.5 ID Date Data Source [id number] 08/06/2019 02:57:00 PM EDT [facility] ([facility] Name Value Range Interpretation Code Description Data Annette rce(s) Supporting Document(s) WBC 7.7 10E3/uL 4.1-10.9 [facility] ([facility] CLASSIFICATION CHOLESTEROL FO R ADULTS CHILDREN/ADOLESCENTS* DESIRABLE: <200 MG/DL <170 MG/DL BORDER-LINE HIGH RISK: 200-239 MG/DL 170-199 MG/DL HIGH RISK: >240 MG/DL >200 MG/DL CLASS. FOR PRIMARY LDL CHOL PREVENTION: LDL CHOL-CHILD/ADOLESCENTS* DESIRABLE: <130 MG/DL <110 MG/DL BORDERLINE-HIGH RISK: 130-159 MG/DL 110-129 MG/DL HIGH RISK: >160 MG/DL >130 MG/DL *CHILDREN AND ADOLESCENTS REPRESENTS INDIVIDUALA AGED 2-19 YEARS EXCLUSIVE. CHRONIC KIDNEY DISEASE STAGING PER NKF: MALE [...] mL/min Normal 80 and above >32 mL/min NormalNORMAL RANGES Age WBC RBC HGB HCT MCV PLT Adult M 4.1-10.9 4.20-6.30 12.0-18.0 37.0-51.0 80-97 140-440 Adult F 4.1-10.9 4.04-5.48 12.0-18.0 37.0-51.0 80-97 140-440 0- 1 Yr 5.0-20.0 3.9-5.9 15-18 MV: 44 MV: 91 MV: 277 2-9 Yr. 6.0-17.0 3.8-5.4 11-13 MV: 37 MV: 78 MV: 300 10 Yrs. 5.0-13.0 3.8-5.4 12-15 MV: 39 MV: 80 MV: 250 NOTE: * FOR ADULT BLACK MALES AND FEMALES, NORMAL WBC IS 2.9-7.7 K/ML * FOR ADULT BLACK MALES AND FEMALES, NORMAL RBC,HGB, AND HCT IS 5% LESS SOURCE FOR DATA: [employer] DYN 1800 OPERATION MANUAL( AUTOMATED BLOOD COUNTS AND DIFF.) APPENDIX B-3 RBC 3.88 10E6/uL 4.20-6.30 Below low normal [facility] ([facility] CLASSIFICATION CHOLESTEROL FO R ADULTS CHILDREN/ADOLESCENTS* DESIRABLE: <200 MG/DL <170 MG/DL BORDER-LINE HIGH RISK: 200-239 MG/DL 170-199 MG/DL HIGH RISK: >240 MG/DL >200 MG/DL CLASS. FOR PRIMARY LDL CHOL PREVENTION: LDL CHOL-CHILD/ADOLESCENTS* DESIRABLE: <130 MG/DL <110 MG/DL BORDERLINE-HIGH RISK: 130-159 MG/DL 110-129 MG/DL HIGH RISK: >160 MG/DL >130 MG/DL *CHILDREN AND ADOLESCENTS REPRESENTS INDIVIDUALA AGED 2-19 YEARS EXCLUSIVE. CHRONIC KIDNEY DISEASE STAGING PER NKF: MALE [...] mL/min Normal 80 and above >32 mL/min NormalNORMAL RANGES Age WBC RBC HGB HCT MCV PLT Adult M 4.1-10.9 4.20-6.30 12.0-18.0 37.0-51.0 80-97 140-440 Adult F 4.1-10.9 4.04-5.48 12.0-18.0 37.0-51.0 80-97 140-440 0- 1 Yr 5.0-20.0 3.9-5.9 15-18 MV: 44 MV: 91 MV: 277 2-9 Yr. 6.0-17.0 3.8-5.4 11-13 MV: 37 MV: 78 MV: 300 10 Yrs. 5.0-13.0 3.8-5.4 12-15 MV: 39 MV: 80 MV: 250 NOTE: * FOR ADULT BLACK MALES AND FEMALES, NORMAL WBC IS 2.9-7.7 K/ML * FOR ADULT BLACK MALES AND FEMALES, NORMAL RBC,HGB, AND HCT IS 5% LESS SOURCE FOR DATA: [employer] 1800 OPERATION MANUAL( AUTOMATED BLOOD COUNTS AND DIFF.) APPENDIX B-3 MCV 96.9 fL 80.0-97.0 [facility] ([facility] CLASSIFICATION CHOLESTEROL FO R ADULTS CHILDREN/ADOLESCENTS* DESIRABLE: <200 MG/DL <170 MG/DL BORDER-LINE HIGH RISK: 200-239 MG/DL 170-199 MG/DL HIGH RISK: >240 MG/DL >200 MG/DL CLASS. FOR PRIMARY LDL CHOL PREVENTION: LDL CHOL-CHILD/ADOLESCENTS* DESIRABLE: <130 MG/DL <110 MG/DL BORDERLINE-HIGH RISK: 130-159 MG/DL 110-129 MG/DL HIGH RISK: >160 MG/DL >130 MG/DL *CHILDREN AND ADOLESCENTS REPRESENTS INDIVIDUALA AGED 2-19 YEARS EXCLUSIVE. CHRONIC KIDNEY DISEASE STAGING PER NKF: MALE [...] mL/min Normal 80 and above >32 mL/min NormalNORMAL RANGES Age WBC RBC HGB HCT MCV PLT Adult M 4.1-10.9 4.20-6.30 12.0-18.0 37.0-51.0 80-97 140-440 Adult F 4.1-10.9 4.04-5.48 12.0-18.0 37.0-51.0 80-97 140-440 0- 1 Yr 5.0-20.0 3.9-5.9 15-18 MV: 44 MV: [...] AUTOMATED BLOOD COUNTS AND DIFF.) APPENDIX B-3 MCH 32.2 pg 26.0-32.0 Above high normal [facility] ([facility] CLASSIFICATION CHOLESTEROL FO R ADULTS CHILDREN/ADOLESCENTS* DESIRABLE: <200 MG/DL <170 MG/DL BORDER-LINE HIGH RISK: 200-239 MG/DL 170-199 MG/DL HIGH RISK: >240 MG/DL >200 MG/DL CLASS. FOR PRIMARY LDL CHOL PREVENTION: LDL CHOL-CHILD/ADOLESCENTS* DESIRABLE: <130 MG/DL <110 MG/DL BORDERLINE-HIGH RISK: 130-159 MG/DL 110-129 MG/DL HIGH RISK: >160 MG/DL >130 MG/DL *CHILDREN AND ADOLESCENTS REPRESENTS INDIVIDUALA AGED 2-19 YEARS EXCLUSIVE. CHRONIC KIDNEY DISEASE STAGING PER NKF: MALE [...] mL/min Normal 80 and above >32 mL/min NormalNORMAL RANGES Age WBC RBC HGB HCT MCV PLT Adult M 4.1-10.9 4.20-6.30 12.0-18.0 37.0-51.0 80-97 140-440 Adult F 4.1-10.9 4.04-5.48 12.0-18.0 37.0-51.0 80-97 140-440 0- 1 Yr 5.0-20.0 3.9-5.9 15-18 MV: 44 MV: 91 MV: 277 2-9 Yr. 6.0-17.0 3.8-5.4 11-13 MV: 37 MV: 78 MV: 300 10 Yrs. 5.0-13.0 3.8-5.4 12-15 MV: 39 MV: 80 MV: 250 NOTE: * FOR ADULT BLACK MALES AND FEMALES, NORMAL WBC IS 2.9-7.7 K/ML * FOR ADULT BLACK MALES AND FEMALES, NORMAL RBC,HGB, AND HCT IS 5% LESS SOURCE FOR DATA: [employer] 1800 OPERATION MANUAL( AUTOMATED BLOOD COUNTS AND DIFF.) APPENDIX B-3 HGB 12.5 g/dL 12.0-18.0 [facility] CLASSIFICATION CHOLESTEROL FO R ADULTS CHILDREN/ADOLESCENTS* DESIRABLE: <200 MG/DL <170 MG/DL BORDER-LINE HIGH RISK: 200-239 MG/DL 170-199 MG/DL HIGH RISK: >240 MG/DL >200 MG/DL CLASS. FOR PRIMARY LDL CHOL PREVENTION: LDL CHOL-CHILD/ADOLESCENTS* DESIRABLE: <130 MG/DL <110 MG/DL BORDERLINE-HIGH RISK: 130-159 MG/DL 110-129 MG/DL HIGH RISK: >160 MG/DL >130 MG/DL *CHILDREN AND ADOLESCENTS REPRESENTS INDIVIDUALA AGED 2-19 YEARS EXCLUSIVE. CHRONIC KIDNEY DISEASE STAGING PER NKF: MALE [...] mL/min Normal 80 and above >32 mL/min NormalNORMAL RANGES Age WBC RBC HGB HCT MCV PLT Adult M 4.1-10.9 4.20-6.30 12.0-18.0 37.0-51.0 80-97 140-440 Adult F 4.1-10.9 4.04-5.48 12.0-18.0 37.0-51.0 80-97 140-440 0- 1 Yr 5.0-20.0 3.9-5.9 15-18 MV: 44 MV: 91 MV: 277 2-9 Yr. 6.0-17.0 3.8-5.4 11-13 MV: 37 MV: 78 MV: 300 10 Yrs. 5.0-13.0 3.8-5.4 12-15 MV: 39 MV: 80 MV: 250 NOTE: * FOR ADULT BLACK MALES AND FEMALES, NORMAL WBC IS 2.9-7.7 K/ML * FOR ADULT BLACK MALES AND FEMALES, NORMAL RBC,HGB, AND HCT IS 5% LESS SOURCE FOR DATA: [employer] DYN 1800 OPERATION MANUAL( AUTOMATED BLOOD COUNTS AND DIFF.) APPENDIX B-3 HCT 37.6 % 37.0-51.0 [facility] ([facility] CLASSIFICATION CHOLESTEROL FO R ADULTS CHILDREN/ADOLESCENTS* DESIRABLE: <200 MG/DL <170 MG/DL BORDER-LINE HIGH RISK: 200-239 MG/DL 170-199 MG/DL HIGH RISK: >240 MG/DL >200 MG/DL CLASS. FOR PRIMARY LDL CHOL PREVENTION: LDL CHOL-CHILD/ADOLESCENTS* DESIRABLE: <130 MG/DL <110 MG/DL BORDERLINE-HIGH RISK: 130-159 MG/DL 110-129 MG/DL HIGH RISK: >160 MG/DL >130 MG/DL *CHILDREN AND ADOLESCENTS REPRESENTS INDIVIDUALA AGED 2-19 YEARS EXCLUSIVE. CHRONIC KIDNEY DISEASE STAGING PER NKF: MALE [...] mL/min Normal 80 and above >32 mL/min NormalNORMAL RANGES Age WBC RBC HGB HCT MCV PLT Adult M 4.1-10.9 4.20-6.30 12.0-18.0 37.0-51.0 80-97 140-440 Adult F 4.1-10.9 4.04-5.48 12.0-18.0 37.0-51.0 80-97 140-440 0- 1 Yr 5.0-20.0 3.9-5.9 15-18 MV: 44 MV: [...] AUTOMATED BLOOD COUNTS AND DIFF.) APPENDIX B-3 MCHC 33.2 g/dL 31.0-36.0 [facility] ([facility] CLASSIFICATION CHOLESTEROL FO R ADULTS CHILDREN/ADOLESCENTS* DESIRABLE: <200 MG/DL <170 MG/DL BORDER-LINE HIGH RISK: 200-239 MG/DL 170-199 MG/DL HIGH RISK: >240 MG/DL >200 MG/DL CLASS. FOR PRIMARY LDL CHOL PREVENTION: LDL CHOL-CHILD/ADOLESCENTS* DESIRABLE: <130 MG/DL <110 MG/DL BORDERLINE-HIGH RISK: 130-159 MG/DL 110-129 MG/DL HIGH RISK: >160 MG/DL >130 MG/DL *CHILDREN AND ADOLESCENTS REPRESENTS INDIVIDUALA AGED 2-19 YEARS EXCLUSIVE. CHRONIC KIDNEY DISEASE STAGING PER NKF: MALE [...] mL/min Normal 80 and above >32 mL/min NormalNORMAL RANGES Age WBC RBC HGB HCT MCV PLT Adult M 4.1-10.9 4.20-6.30 12.0-18.0 37.0-51.0 80-97 140-440 Adult F 4.1-10.9 4.04-5.48 12.0-18.0 37.0-51.0 80-97 140-440 0- 1 Yr 5.0-20.0 3.9-5.9 15-18 MV: 44 MV: [...] AUTOMATED BLOOD COUNTS AND DIFF.) APPENDIX B-3 PLT 165 10E3/uL 140-440 [facility] ([facility] CLASSIFICATION CHOLESTEROL FO R ADULTS CHILDREN/ADOLESCENTS* DESIRABLE: <200 MG/DL <170 MG/DL BORDER-LINE HIGH RISK: 200-239 MG/DL 170-199 MG/DL HIGH RISK: >240 MG/DL >200 MG/DL CLASS. FOR PRIMARY LDL CHOL PREVENTION: LDL CHOL-CHILD/ADOLESCENTS* DESIRABLE: <130 MG/DL <110 MG/DL BORDERLINE-HIGH RISK: 130-159 MG/DL 110-129 MG/DL HIGH RISK: >160 MG/DL >130 MG/DL *CHILDREN AND ADOLESCENTS REPRESENTS INDIVIDUALA AGED 2-19 YEARS EXCLUSIVE. CHRONIC KIDNEY DISEASE STAGING PER NKF: MALE [...] mL/min Normal 80 and above >32 mL/min NormalNORMAL RANGES Age WBC RBC HGB HCT MCV PLT Adult M 4.1-10.9 4.20-6.30 12.0-18.0 37.0-51.0 80-97 140-440 Adult F 4.1-10.9 4.04-5.48 12.0-18.0 37.0-51.0 80-97 140-440 0- 1 Yr 5.0-20.0 3.9-5.9 15-18 MV: 44 MV: 91 MV: 277 2-9 Yr. 6.0-17.0 3.8-5.4 11-13 MV: 37 MV: 78 MV: 300 10 Yrs. 5.0-13.0 3.8-5.4 12-15 MV: 39 MV: 80 MV: 250 NOTE: * FOR ADULT BLACK MALES AND FEMALES, NORMAL WBC IS 2.9-7.7 K/ML * FOR ADULT BLACK MALES AND FEMALES, NORMAL RBC,HGB, AND HCT IS 5% LESS SOURCE FOR DATA: [employer] DYN 1800 OPERATION MANUAL( AUTOMATED BLOOD COUNTS AND DIFF.) APPENDIX B-3 RDW-CV 13.9 % 11.5-14.5 [facility] CLASSIFICATION CHOLESTEROL FO R ADULTS CHILDREN/ADOLESCENTS* DESIRABLE: <200 MG/DL <170 MG/DL BORDER-LINE HIGH RISK: 200-239 MG/DL 170-199 MG/DL HIGH RISK: >240 MG/DL >200 MG/DL CLASS. FOR PRIMARY LDL CHOL PREVENTION: LDL CHOL-CHILD/ADOLESCENTS* DESIRABLE: <130 MG/DL <110 MG/DL BORDERLINE-HIGH RISK: 130-159 MG/DL 110-129 MG/DL HIGH RISK: >160 MG/DL >130 MG/DL *CHILDREN AND ADOLESCENTS REPRESENTS INDIVIDUALA AGED 2-19 YEARS EXCLUSIVE. CHRONIC KIDNEY DISEASE STAGING PER NKF: MALE [...] mL/min Normal 80 and above >32 mL/min NormalNORMAL RANGES Age WBC RBC HGB HCT MCV PLT Adult M 4.1-10.9 4.20-6.30 12.0-18.0 37.0-51.0 80-97 140-440 Adult F 4.1-10.9 4.04-5.48 12.0-18.0 37.0-51.0 80-97 140-440 0- 1 Yr 5.0-20.0 3.9-5.9 15-18 MV: 44 MV: 91 MV: 277 2-9 Yr. 6.0-17.0 3.8-5.4 11-13 MV: 37 MV: 78 MV: 300 10 Yrs. 5.0-13.0 3.8-5.4 12-15 MV: 39 MV: 80 MV: 250 NOTE: * FOR ADULT BLACK MALES AND FEMALES, NORMAL WBC IS 2.9-7.7 K/ML * FOR ADULT BLACK MALES AND FEMALES, NORMAL RBC,HGB, AND HCT IS 5% LESS SOURCE FOR DATA: [employer] 1800 OPERATION MANUAL( AUTOMATED BLOOD COUNTS AND DIFF.) APPENDIX B-3 MXD% 13.3 % 0.1-24.0 [facility] ([facility] CLASSIFICATION CHOLESTEROL FO R ADULTS CHILDREN/ADOLESCENTS* DESIRABLE: <200 MG/DL <170 MG/DL BORDER-LINE HIGH RISK: 200-239 MG/DL 170-199 MG/DL HIGH RISK: >240 MG/DL >200 MG/DL CLASS. FOR PRIMARY LDL CHOL PREVENTION: LDL CHOL-CHILD/ADOLESCENTS* DESIRABLE: <130 MG/DL <110 MG/DL BORDERLINE-HIGH RISK: 130-159 MG/DL 110-129 MG/DL HIGH RISK: >160 MG/DL >130 MG/DL *CHILDREN AND ADOLESCENTS REPRESENTS INDIVIDUALA AGED 2-19 YEARS EXCLUSIVE. CHRONIC KIDNEY DISEASE STAGING PER NKF: MALE [...] mL/min Normal 80 and above >32 mL/min NormalNORMAL RANGES Age WBC RBC HGB HCT MCV PLT Adult M 4.1-10.9 4.20-6.30 12.0-18.0 37.0-51.0 80-97 140-440 Adult F 4.1-10.9 4.04-5.48 12.0-18.0 37.0-51.0 80-97 140-440 0- 1 Yr 5.0-20.0 3.9-5.9 15-18 MV: 44 MV: 91 MV: 277 2-9 Yr. 6.0-17.0 3.8-5.4 11-13 MV: 37 MV: 78 MV: 300 10 Yrs. 5.0-13.0 3.8-5.4 12-15 MV: 39 MV: 80 MV: 250 NOTE: * FOR ADULT BLACK MALES AND FEMALES, NORMAL WBC IS 2.9-7.7 K/ML * FOR ADULT BLACK MALES AND FEMALES, NORMAL RBC,HGB, AND HCT IS 5% LESS SOURCE FOR DATA: [employer] OPERATION MANUAL( AUTOMATED BLOOD COUNTS AND DIFF.) APPENDIX B-3 Lym% 10.4 % 10.0-58.5 [facility] ([facility] CLASSIFICATION CHOLESTEROL FO R ADULTS CHILDREN/ADOLESCENTS* DESIRABLE: <200 MG/DL <170 MG/DL BORDER-LINE HIGH RISK: 200-239 MG/DL 170-199 MG/DL HIGH RISK: >240 MG/DL >200 MG/DL CLASS. FOR PRIMARY LDL CHOL PREVENTION: LDL CHOL-CHILD/ADOLESCENTS* DESIRABLE: <130 MG/DL <110 MG/DL BORDERLINE-HIGH RISK: 130-159 MG/DL 110-129 MG/DL HIGH RISK: >160 MG/DL >130 MG/DL *CHILDREN AND ADOLESCENTS REPRESENTS INDIVIDUALA AGED 2-19 YEARS EXCLUSIVE. CHRONIC KIDNEY DISEASE STAGING PER NKF: MALE [...] mL/min Normal 80 and above >32 mL/min NormalNORMAL RANGES Age WBC RBC HGB HCT MCV PLT Adult M 4.1-10.9 4.20-6.30 12.0-18.0 37.0-51.0 80-97 140-440 Adult F 4.1-10.9 4.04-5.48 12.0-18.0 37.0-51.0 80-97 140-440 0- 1 Yr 5.0-20.0 3.9-5.9 15-18 MV: 44 MV: 91 MV: 277 2-9 Yr. 6.0-17.0 3.8-5.4 11-13 MV: 37 MV: 78 MV: 300 10 Yrs. 5.0-13.0 3.8-5.4 12-15 MV: 39 MV: 80 MV: 250 NOTE: * FOR ADULT BLACK MALES AND FEMALES, NORMAL WBC IS 2.9-7.7 K/ML * FOR ADULT BLACK MALES AND FEMALES, NORMAL RBC,HGB, AND HCT IS 5% LESS SOURCE FOR DATA: [employer] OPERATION MANUAL( AUTOMATED BLOOD COUNTS AND DIFF.) APPENDIX B-3 Neut% 76.3 % 37.0-92.0 [facility] CLASSIFICATION CHOLESTEROL FO R ADULTS CHILDREN/ADOLESCENTS* DESIRABLE: <200 MG/DL <170 MG/DL BORDER-LINE HIGH RISK: 200-239 MG/DL 170-199 MG/DL HIGH RISK: >240 MG/DL >200 MG/DL CLASS. FOR PRIMARY LDL CHOL PREVENTION: LDL CHOL-CHILD/ADOLESCENTS* DESIRABLE: <130 MG/DL <110 MG/DL BORDERLINE-HIGH RISK: 130-159 MG/DL 110-129 MG/DL HIGH RISK: >160 MG/DL >130 MG/DL *CHILDREN AND ADOLESCENTS REPRESENTS INDIVIDUALA AGED 2-19 YEARS EXCLUSIVE. CHRONIC KIDNEY DISEASE STAGING PER NKF: MALE [...] mL/min Normal 80 and above >32 mL/min NormalNORMAL RANGES Age WBC RBC HGB HCT MCV PLT Adult M 4.1-10.9 4.20-6.30 12.0-18.0 37.0-51.0 80-97 140-440 Adult F 4.1-10.9 4.04-5.48 12.0-18.0 37.0-51.0 80-97 140-440 0- 1 Yr 5.0-20.0 3.9-5.9 15-18 MV: 44 MV: [...] AUTOMATED BLOOD COUNTS AND DIFF.) APPENDIX B-3 Lym# 0.8 10E3/uL 0.6-4.1 [facility] ([facility] CLASSIFICATION CHOLESTEROL FO R ADULTS CHILDREN/ADOLESCENTS* DESIRABLE: <200 MG/DL <170 MG/DL BORDER-LINE HIGH RISK: 200-239 MG/DL 170-199 MG/DL HIGH RISK: >240 MG/DL >200 MG/DL CLASS. FOR PRIMARY LDL CHOL PREVENTION: LDL CHOL-CHILD/ADOLESCENTS* DESIRABLE: <130 MG/DL <110 MG/DL BORDERLINE-HIGH RISK: 130-159 MG/DL 110-129 MG/DL HIGH RISK: >160 MG/DL >130 MG/DL *CHILDREN AND ADOLESCENTS REPRESENTS INDIVIDUALA AGED 2-19 YEARS EXCLUSIVE. CHRONIC KIDNEY DISEASE STAGING PER NKF: MALE [...] mL/min Normal 80 and above >32 mL/min NormalNORMAL RANGES Age WBC RBC HGB HCT MCV PLT Adult M 4.1-10.9 4.20-6.30 12.0-18.0 37.0-51.0 80-97 140-440 Adult F 4.1-10.9 4.04-5.48 12.0-18.0 37.0-51.0 80-97 140-440 0- 1 Yr 5.0-20.0 3.9-5.9 15-18 MV: 44 MV: 91 MV: 277 2-9 Yr. 6.0-17.0 3.8-5.4 11-13 MV: 37 MV: 78 MV: 300 10 Yrs. 5.0-13.0 3.8-5.4 12-15 MV: 39 MV: 80 MV: 250 NOTE: * FOR ADULT BLACK MALES AND FEMALES, NORMAL WBC IS 2.9-7.7 K/ML * FOR ADULT BLACK MALES AND FEMALES, NORMAL RBC,HGB, AND HCT IS 5% LESS SOURCE FOR DATA: [employer] 1800 OPERATION MANUAL( AUTOMATED BLOOD COUNTS AND DIFF.) APPENDIX B-3 Neut# 5.9 % 2.0-7.8 [facility] ([facility] CLASSIFICATION CHOLESTEROL FO R ADULTS CHILDREN/ADOLESCENTS* DESIRABLE: <200 MG/DL <170 MG/DL BORDER-LINE HIGH RISK: 200-239 MG/DL 170-199 MG/DL HIGH RISK: >240 MG/DL >200 MG/DL CLASS. FOR PRIMARY LDL CHOL PREVENTION: LDL CHOL-CHILD/ADOLESCENTS* DESIRABLE: <130 MG/DL <110 MG/DL BORDERLINE-HIGH RISK: 130-159 MG/DL 110-129 MG/DL HIGH RISK: >160 MG/DL >130 MG/DL *CHILDREN AND ADOLESCENTS REPRESENTS INDIVIDUALA AGED 2-19 YEARS EXCLUSIVE. CHRONIC KIDNEY DISEASE STAGING PER NKF: MALE [...] mL/min Normal 80 and above >32 mL/min NormalNORMAL RANGES Age WBC RBC HGB HCT MCV PLT Adult M 4.1-10.9 4.20-6.30 12.0-18.0 37.0-51.0 80-97 140-440 Adult F 4.1-10.9 4.04-5.48 12.0-18.0 37.0-51.0 80-97 140-440 0- 1 Yr 5.0-20.0 3.9-5.9 15-18 MV: 44 MV: 91 MV: 277 2-9 Yr. 6.0-17.0 3.8-5.4 11-13 MV: 37 MV: 78 MV: 300 10 Yrs. 5.0-13.0 3.8-5.4 12-15 MV: 39 MV: 80 MV: 250 NOTE: * FOR ADULT BLACK MALES AND FEMALES, NORMAL WBC IS 2.9-7.7 K/ML * FOR ADULT BLACK MALES AND FEMALES, NORMAL RBC,HGB, AND HCT IS 5% LESS SOURCE FOR DATA: [employer] 1800 OPERATION MANUAL( AUTOMATED BLOOD COUNTS AND DIFF.) APPENDIX B-3 MXD# 1.0 10E3/uL 0.0-1.8 [facility] ([facility] CLASSIFICATION CHOLESTEROL FO R ADULTS CHILDREN/ADOLESCENTS* DESIRABLE: <200 MG/DL <170 MG/DL BORDER-LINE HIGH RISK: 200-239 MG/DL 170-199 MG/DL HIGH RISK: >240 MG/DL >200 MG/DL CLASS. FOR PRIMARY LDL CHOL PREVENTION: LDL CHOL-CHILD/ADOLESCENTS* DESIRABLE: <130 MG/DL <110 MG/DL BORDERLINE-HIGH RISK: 130-159 MG/DL 110-129 MG/DL HIGH RISK: >160 MG/DL >130 MG/DL *CHILDREN AND ADOLESCENTS REPRESENTS INDIVIDUALA AGED 2-19 YEARS EXCLUSIVE. CHRONIC KIDNEY DISEASE STAGING PER NKF: MALE [...] mL/min Normal 80 and above >32 mL/min NormalNORMAL RANGES Age WBC RBC HGB HCT MCV PLT Adult M 4.1-10.9 4.20-6.30 12.0-18.0 37.0-51.0 80-97 140-440 Adult F 4.1-10.9 4.04-5.48 12.0-18.0 37.0-51.0 80-97 140-440 0- 1 Yr 5.0-20.0 3.9-5.9 15-18 MV: 44 MV: [...] AUTOMATED BLOOD COUNTS AND DIFF.) APPENDIX B-3 MPV 11.5 fL 9.0-13.0 [facility] CLASSIFICATION CHOLESTEROL FO R ADULTS CHILDREN/ADOLESCENTS* DESIRABLE: <200 MG/DL <170 MG/DL BORDER-LINE HIGH RISK: 200-239 MG/DL 170-199 MG/DL HIGH RISK: >240 MG/DL >200 MG/DL CLASS. FOR PRIMARY LDL CHOL PREVENTION: LDL CHOL-CHILD/ADOLESCENTS* DESIRABLE: <130 MG/DL <110 MG/DL BORDERLINE-HIGH RISK: 130-159 MG/DL 110-129 MG/DL HIGH RISK: >160 MG/DL >130 MG/DL *CHILDREN AND ADOLESCENTS REPRESENTS INDIVIDUALA AGED 2-19 YEARS EXCLUSIVE. CHRONIC KIDNEY DISEASE STAGING PER NKF: MALE [...] mL/min Normal 80 and above >32 mL/min NormalNORMAL RANGES Age WBC RBC HGB HCT MCV PLT Adult M 4.1-10.9 4.20-6.30 12.0-18.0 37.0-51.0 80-97 140-440 Adult F 4.1-10.9 4.04-5.48 12.0-18.0 37.0-51.0 80-97 140-440 0- 1 Yr 5.0-20.0 3.9-5.9 15-18 MV: 44 MV: 91 MV: 277 2-9 Yr. 6.0-17.0 3.8-5.4 11-13 MV: 37 MV: 78 MV: 300 10 Yrs. 5.0-13.0 3.8-5.4 12-15 MV: 39 MV: 80 MV: 250 NOTE: * FOR ADULT BLACK MALES AND FEMALES, NORMAL WBC IS 2.9-7.7 K/ML * FOR ADULT BLACK MALES AND FEMALES, NORMAL RBC,HGB, AND HCT IS 5% LESS SOURCE FOR DATA: [employer] OPERATION MANUAL( AUTOMATED BLOOD COUNTS AND DIFF.) APPENDIX B-3 ID Date Data Source [id number] 08/06/2019 02:57:00 PM EDT [facility] ([facility] Name Value Range Interpretation Code Description Data Annette rce(s) Supporting Document(s) Chol 166 mg/dL 0-200 [facility] ([facility] CLASSIFICATION CHOLESTEROL FO R ADULTS CHILDREN/ADOLESCENTS* DESIRABLE: <200 MG/DL <170 MG/DL BORDER-LINE HIGH RISK: 200-239 MG/DL 170-199 MG/DL HIGH RISK: >240 MG/DL >200 MG/DL CLASS. FOR PRIMARY LDL CHOL PREVENTION: LDL CHOL-CHILD/ADOLESCENTS* DESIRABLE: <130 MG/DL <110 MG/DL BORDERLINE-HIGH RISK: 130-159 MG/DL 110-129 MG/DL HIGH RISK: >160 MG/DL >130 MG/DL *CHILDREN AND ADOLESCENTS REPRESENTS INDIVIDUALA AGED 2-19 YEARS EXCLUSIVE. CHRONIC KIDNEY DISEASE STAGING PER NKF: MALE [...] mL/min Normal 80 and above >32 mL/min NormalNORMAL RANGES Age WBC RBC HGB HCT MCV PLT Adult M 4.1-10.9 4.20-6.30 12.0-18.0 37.0-51.0 80-97 140-440 Adult F 4.1-10.9 4.04-5.48 12.0-18.0 37.0-51.0 80-97 140-440 0- 1 Yr 5.0-20.0 3.9-5.9 15-18 MV: 44 MV: [...] AUTOMATED BLOOD COUNTS AND DIFF.) APPENDIX B-3 Trig 129 mg/dL 35-200 [facility] CLASSIFICATION CHOLESTEROL FO R ADULTS CHILDREN/ADOLESCENTS* DESIRABLE: <200 MG/DL <170 MG/DL BORDER-LINE HIGH RISK: 200-239 MG/DL 170-199 MG/DL HIGH RISK: >240 MG/DL >200 MG/DL CLASS. FOR PRIMARY LDL CHOL PREVENTION: LDL CHOL-CHILD/ADOLESCENTS* DESIRABLE: <130 MG/DL <110 MG/DL BORDERLINE-HIGH RISK: 130-159 MG/DL 110-129 MG/DL HIGH RISK: >160 MG/DL >130 MG/DL *CHILDREN AND ADOLESCENTS REPRESENTS INDIVIDUALA AGED 2-19 YEARS EXCLUSIVE. CHRONIC KIDNEY DISEASE STAGING PER NKF: MALE [...] mL/min Normal 80 and above >32 mL/min NormalNORMAL RANGES Age WBC RBC HGB HCT MCV PLT Adult M 4.1-10.9 4.20-6.30 12.0-18.0 37.0-51.0 80-97 140-440 Adult F 4.1-10.9 4.04-5.48 12.0-18.0 37.0-51.0 80-97 140-440 0- 1 Yr 5.0-20.0 3.9-5.9 15-18 MV: 44 MV: 91 MV: 277 2-9 Yr. 6.0-17.0 3.8-5.4 11-13 MV: 37 MV: 78 MV: 300 10 Yrs. 5.0-13.0 3.8-5.4 12-15 MV: 39 MV: 80 MV: 250 NOTE: * FOR ADULT BLACK MALES AND FEMALES, NORMAL WBC IS 2.9-7.7 K/ML * FOR ADULT BLACK MALES AND FEMALES, NORMAL RBC,HGB, AND HCT IS 5% LESS SOURCE FOR DATA: [employer] 1800 OPERATION MANUAL( AUTOMATED BLOOD COUNTS AND DIFF.) APPENDIX B-3 Cho/HDL Ratio 4.8 CALC [employer] ([facility] CLASSIFICATION CHOLESTEROL FO R ADULTS CHILDREN/ADOLESCENTS* DESIRABLE: <200 MG/DL <170 MG/DL BORDER-LINE HIGH RISK: 200-239 MG/DL 170-199 MG/DL HIGH RISK: >240 MG/DL >200 MG/DL CLASS. FOR PRIMARY LDL CHOL PREVENTION: LDL CHOL-CHILD/ADOLESCENTS* DESIRABLE: <130 MG/DL <110 MG/DL BORDERLINE-HIGH RISK: 130-159 MG/DL 110-129 MG/DL HIGH RISK: >160 MG/DL >130 MG/DL *CHILDREN AND ADOLESCENTS REPRESENTS INDIVIDUALA AGED 2-19 YEARS EXCLUSIVE. CHRONIC KIDNEY DISEASE STAGING PER NKF: MALE [...] mL/min Normal 80 and above >32 mL/min NormalNORMAL RANGES Age WBC RBC HGB HCT MCV PLT Adult M 4.1-10.9 4.20-6.30 12.0-18.0 37.0-51.0 80-97 140-440 Adult F 4.1-10.9 4.04-5.48 12.0-18.0 37.0-51.0 80-97 140-440 0- 1 Yr 5.0-20.0 3.9-5.9 15-18 MV: 44 MV: 91 MV: 277 2-9 Yr. 6.0-17.0 3.8-5.4 11-13 MV: 37 MV: 78 MV: 300 10 Yrs. 5.0-13.0 3.8-5.4 12-15 MV: 39 MV: 80 MV: 250 NOTE: * FOR ADULT BLACK MALES AND FEMALES, NORMAL WBC IS 2.9-7.7 K/ML * FOR ADULT BLACK MALES AND FEMALES, NORMAL RBC,HGB, AND HCT IS 5% LESS SOURCE FOR DATA: [employer] 1800 OPERATION MANUAL( AUTOMATED BLOOD COUNTS AND DIFF.) APPENDIX B-3 LDL_C 106 Calc 75-129 [facility] CLASSIFICATION CHOLESTEROL FO R ADULTS CHILDREN/ADOLESCENTS* DESIRABLE: <200 MG/DL <170 MG/DL BORDER-LINE HIGH RISK: 200-239 MG/DL 170-199 MG/DL HIGH RISK: >240 MG/DL >200 MG/DL CLASS. FOR PRIMARY LDL CHOL PREVENTION: LDL CHOL-CHILD/ADOLESCENTS* DESIRABLE: <130 MG/DL <110 MG/DL BORDERLINE-HIGH RISK: 130-159 MG/DL 110-129 MG/DL HIGH RISK: >160 MG/DL >130 MG/DL *CHILDREN AND ADOLESCENTS REPRESENTS INDIVIDUALA AGED 2-19 YEARS EXCLUSIVE. CHRONIC KIDNEY DISEASE STAGING PER NKF: MALE [...] mL/min Normal 80 and above >32 mL/min NormalNORMAL RANGES Age WBC RBC HGB HCT MCV PLT Adult M 4.1-10.9 4.20-6.30 12.0-18.0 37.0-51.0 80-97 140-440 Adult F 4.1-10.9 4.04-5.48 12.0-18.0 37.0-51.0 80-97 140-440 0- 1 Yr 5.0-20.0 3.9-5.9 15-18 MV: 44 MV: 91 MV: 277 2-9 Yr. 6.0-17.0 3.8-5.4 11-13 MV: 37 MV: 78 MV: 300 10 Yrs. 5.0-13.0 3.8-5.4 12-15 MV: 39 MV: 80 MV: 250 NOTE: * FOR ADULT BLACK MALES AND FEMALES, NORMAL WBC IS 2.9-7.7 K/ML * FOR ADULT BLACK MALES AND FEMALES, NORMAL RBC,HGB, AND HCT IS 5% LESS SOURCE FOR DATA: [employer] 1800 OPERATION MANUAL( AUTOMATED BLOOD COUNTS AND DIFF.) APPENDIX B-3 Cholesterol in HDL [Mass/volume] in Serum or Plasma 35 mg/dL 35-55 [facility] ([facility] CLASSIFICATION CHOLESTEROL FO R ADULTS CHILDREN/ADOLESCENTS* DESIRABLE: <200 MG/DL <170 MG/DL BORDER-LINE HIGH RISK: 200-239 MG/DL 170-199 MG/DL HIGH RISK: >240 MG/DL >200 MG/DL CLASS. FOR PRIMARY LDL CHOL PREVENTION: LDL CHOL-CHILD/ADOLESCENTS* DESIRABLE: <130 MG/DL <110 MG/DL BORDERLINE-HIGH RISK: 130-159 MG/DL 110-129 MG/DL HIGH RISK: >160 MG/DL >130 MG/DL *CHILDREN AND ADOLESCENTS REPRESENTS INDIVIDUALA AGED 2-19 YEARS EXCLUSIVE. CHRONIC KIDNEY DISEASE STAGING PER NKF: MALE [...] mL/min Normal 80 and above >32 mL/min NormalNORMAL RANGES Age WBC RBC HGB HCT MCV PLT Adult M 4.1-10.9 4.20-6.30 12.0-18.0 37.0-51.0 80-97 140-440 Adult F 4.1-10.9 4.04-5.48 12.0-18.0 37.0-51.0 80-97 140-440 0- 1 Yr 5.0-20.0 3.9-5.9 15-18 MV: 44 MV: 91 MV: 277 2-9 Yr. 6.0-17.0 3.8-5.4 11-13 MV: 37 MV: 78 MV: 300 10 Yrs. 5.0-13.0 3.8-5.4 12-15 MV: 39 MV: 80 MV: 250 NOTE: * FOR ADULT BLACK MALES AND FEMALES, NORMAL WBC IS 2.9-7.7 K/ML * FOR ADULT BLACK MALES AND FEMALES, NORMAL RBC,HGB, AND HCT IS 5% LESS SOURCE FOR DATA: [employer] 1800 OPERATION MANUAL( AUTOMATED BLOOD COUNTS AND DIFF.) APPENDIX B-3 ID Date Data Source [id number] 08/06/2019 02:57:00 PM EDT [facility] ([facility] Name Value Range Interpretation Code Description Data Annette rce(s) Supporting Document(s) BUN 35 mg/dL 8-23 Above high normal [facility] ([facility] CLASSIFICATION CHOLESTEROL FO R ADULTS CHILDREN/ADOLESCENTS* DESIRABLE: <200 MG/DL <170 MG/DL BORDER-LINE HIGH RISK: 200-239 MG/DL 170-199 MG/DL HIGH RISK: >240 MG/DL >200 MG/DL CLASS. FOR PRIMARY LDL CHOL PREVENTION: LDL CHOL-CHILD/ADOLESCENTS* DESIRABLE: <130 MG/DL <110 MG/DL BORDERLINE-HIGH RISK: 130-159 MG/DL 110-129 MG/DL HIGH RISK: >160 MG/DL >130 MG/DL *CHILDREN AND ADOLESCENTS REPRESENTS INDIVIDUALA AGED 2-19 YEARS EXCLUSIVE. CHRONIC KIDNEY DISEASE STAGING PER NKF: MALE [...] mL/min Normal 80 and above >32 mL/min NormalNORMAL RANGES Age WBC RBC HGB HCT MCV PLT Adult M 4.1-10.9 4.20-6.30 12.0-18.0 37.0-51.0 80-97 140-440 Adult F 4.1-10.9 4.04-5.48 12.0-18.0 37.0-51.0 80-97 140-440 0- 1 Yr 5.0-20.0 3.9-5.9 15-18 MV: 44 MV: [...] AUTOMATED BLOOD COUNTS AND DIFF.) APPENDIX B-3 Glu 108 mg/dL 70-110 [facility] CLASSIFICATION CHOLESTEROL FO R ADULTS CHILDREN/ADOLESCENTS* DESIRABLE: <200 MG/DL <170 MG/DL BORDER-LINE HIGH RISK: 200-239 MG/DL 170-199 MG/DL HIGH RISK: >240 MG/DL >200 MG/DL CLASS. FOR PRIMARY LDL CHOL PREVENTION: LDL CHOL-CHILD/ADOLESCENTS* DESIRABLE: <130 MG/DL <110 MG/DL BORDERLINE-HIGH RISK: 130-159 MG/DL 110-129 MG/DL HIGH RISK: >160 MG/DL >130 MG/DL *CHILDREN AND ADOLESCENTS REPRESENTS INDIVIDUALA AGED 2-19 YEARS EXCLUSIVE. CHRONIC KIDNEY DISEASE STAGING PER NKF: MALE [...] mL/min Normal 80 and above >32 mL/min NormalNORMAL RANGES Age WBC RBC HGB HCT MCV PLT Adult M 4.1-10.9 4.20-6.30 12.0-18.0 37.0-51.0 80-97 140-440 Adult F 4.1-10.9 4.04-5.48 12.0-18.0 37.0-51.0 80-97 140-440 0- 1 Yr 5.0-20.0 3.9-5.9 15-18 MV: 44 MV: [...] AUTOMATED BLOOD COUNTS AND DIFF.) APPENDIX B-3 Creat 1.4 mg/dL 0.7-1.2 Above high normal [facility] ([facility] CLASSIFICATION CHOLESTEROL FO R ADULTS CHILDREN/ADOLESCENTS* DESIRABLE: <200 MG/DL <170 MG/DL BORDER-LINE HIGH RISK: 200-239 MG/DL 170-199 MG/DL HIGH RISK: >240 MG/DL >200 MG/DL CLASS. FOR PRIMARY LDL CHOL PREVENTION: LDL CHOL-CHILD/ADOLESCENTS* DESIRABLE: <130 MG/DL <110 MG/DL BORDERLINE-HIGH RISK: 130-159 MG/DL 110-129 MG/DL HIGH RISK: >160 MG/DL >130 MG/DL *CHILDREN AND ADOLESCENTS REPRESENTS INDIVIDUALA AGED 2-19 YEARS EXCLUSIVE. CHRONIC KIDNEY DISEASE STAGING PER NKF: MALE [...] mL/min Normal 80 and above >32 mL/min NormalNORMAL RANGES Age WBC RBC HGB HCT MCV PLT Adult M 4.1-10.9 4.20-6.30 12.0-18.0 37.0-51.0 80-97 140-440 Adult F 4.1-10.9 4.04-5.48 12.0-18.0 37.0-51.0 80-97 140-440 0- 1 Yr 5.0-20.0 3.9-5.9 15-18 MV: 44 MV: 91 MV: 277 2-9 Yr. 6.0-17.0 3.8-5.4 11-13 MV: 37 MV: 78 MV: 300 10 Yrs. 5.0-13.0 3.8-5.4 12-15 MV: 39 MV: 80 MV: 250 NOTE: * FOR ADULT BLACK MALES AND FEMALES, NORMAL WBC IS 2.9-7.7 K/ML * FOR ADULT BLACK MALES AND FEMALES, NORMAL RBC,HGB, AND HCT IS 5% LESS SOURCE FOR DATA: [employer] 1800 OPERATION MANUAL( AUTOMATED BLOOD COUNTS AND DIFF.) APPENDIX B-3 K 4.5 mmol/L 3.5-5.1 [facility] CLASSIFICATION CHOLESTEROL FO R ADULTS CHILDREN/ADOLESCENTS* DESIRABLE: <200 MG/DL <170 MG/DL BORDER-LINE HIGH RISK: 200-239 MG/DL 170-199 MG/DL HIGH RISK: >240 MG/DL >200 MG/DL CLASS. FOR PRIMARY LDL CHOL PREVENTION: LDL CHOL-CHILD/ADOLESCENTS* DESIRABLE: <130 MG/DL <110 MG/DL BORDERLINE-HIGH RISK: 130-159 MG/DL 110-129 MG/DL HIGH RISK: >160 MG/DL >130 MG/DL *CHILDREN AND ADOLESCENTS REPRESENTS INDIVIDUALA AGED 2-19 YEARS EXCLUSIVE. CHRONIC KIDNEY DISEASE STAGING PER NKF: MALE [...] mL/min Normal 80 and above >32 mL/min NormalNORMAL RANGES Age WBC RBC HGB HCT MCV PLT Adult M 4.1-10.9 4.20-6.30 12.0-18.0 37.0-51.0 80-97 140-440 Adult F 4.1-10.9 4.04-5.48 12.0-18.0 37.0-51.0 80-97 140-440 0- 1 Yr 5.0-20.0 3.9-5.9 15-18 MV: 44 MV: [...] AUTOMATED BLOOD COUNTS AND DIFF.) APPENDIX B-3 BUN/Creatinine Ratio 25.6 CALC [facility] ([facility] CLASSIFICATION CHOLESTEROL FO R ADULTS CHILDREN/ADOLESCENTS* DESIRABLE: <200 MG/DL <170 MG/DL BORDER-LINE HIGH RISK: 200-239 MG/DL 170-199 MG/DL HIGH RISK: >240 MG/DL >200 MG/DL CLASS. FOR PRIMARY LDL CHOL PREVENTION: LDL CHOL-CHILD/ADOLESCENTS* DESIRABLE: <130 MG/DL <110 MG/DL BORDERLINE-HIGH RISK: 130-159 MG/DL 110-129 MG/DL HIGH RISK: >160 MG/DL >130 MG/DL *CHILDREN AND ADOLESCENTS REPRESENTS INDIVIDUALA AGED 2-19 YEARS EXCLUSIVE. CHRONIC KIDNEY DISEASE STAGING PER NKF: MALE [...] mL/min Normal 80 and above >32 mL/min NormalNORMAL RANGES Age WBC RBC HGB HCT MCV PLT Adult M 4.1-10.9 4.20-6.30 12.0-18.0 37.0-51.0 80-97 140-440 Adult F 4.1-10.9 4.04-5.48 12.0-18.0 37.0-51.0 80-97 140-440 0- 1 Yr 5.0-20.0 3.9-5.9 15-18 MV: 44 MV: 91 MV: 277 2-9 Yr. 6.0-17.0 3.8-5.4 11-13 MV: 37 MV: 78 MV: 300 10 Yrs. 5.0-13.0 3.8-5.4 12-15 MV: 39 MV: 80 MV: 250 NOTE: * FOR ADULT BLACK MALES AND FEMALES, NORMAL WBC IS 2.9-7.7 K/ML * FOR ADULT BLACK MALES AND FEMALES, NORMAL RBC,HGB, AND HCT IS 5% LESS SOURCE FOR DATA: [employer] 1800 OPERATION MANUAL( AUTOMATED BLOOD COUNTS AND DIFF.) APPENDIX B-3 Na 139 mmol/L 136-145 [facility] ([facility] CLASSIFICATION CHOLESTEROL FO R ADULTS CHILDREN/ADOLESCENTS* DESIRABLE: <200 MG/DL <170 MG/DL BORDER-LINE HIGH RISK: 200-239 MG/DL 170-199 MG/DL HIGH RISK: >240 MG/DL >200 MG/DL CLASS. FOR PRIMARY LDL CHOL PREVENTION: LDL CHOL-CHILD/ADOLESCENTS* DESIRABLE: <130 MG/DL <110 MG/DL BORDERLINE-HIGH RISK: 130-159 MG/DL 110-129 MG/DL HIGH RISK: >160 MG/DL >130 MG/DL *CHILDREN AND ADOLESCENTS REPRESENTS INDIVIDUALA AGED 2-19 YEARS EXCLUSIVE. CHRONIC KIDNEY DISEASE STAGING PER NKF: MALE [...] mL/min Normal 80 and above >32 mL/min NormalNORMAL RANGES Age WBC RBC HGB HCT MCV PLT Adult M 4.1-10.9 4.20-6.30 12.0-18.0 37.0-51.0 80-97 140-440 Adult F 4.1-10.9 4.04-5.48 12.0-18.0 37.0-51.0 80-97 140-440 0- 1 Yr 5.0-20.0 3.9-5.9 15-18 MV: 44 MV: 91 MV: 277 2-9 Yr. 6.0-17.0 3.8-5.4 11-13 MV: 37 MV: 78 MV: 300 10 Yrs. 5.0-13.0 3.8-5.4 12-15 MV: 39 MV: 80 MV: 250 NOTE: * FOR ADULT BLACK MALES AND FEMALES, NORMAL WBC IS 2.9-7.7 K/ML * FOR ADULT BLACK MALES AND FEMALES, NORMAL RBC,HGB, AND HCT IS 5% LESS SOURCE FOR DATA: [employer] 1800 OPERATION MANUAL( AUTOMATED BLOOD COUNTS AND DIFF.) APPENDIX B-3 CA 9.3 mg/dL 8.6-10.2 [facility] CLASSIFICATION CHOLESTEROL FO R ADULTS CHILDREN/ADOLESCENTS* DESIRABLE: <200 MG/DL <170 MG/DL BORDER-LINE HIGH RISK: 200-239 MG/DL 170-199 MG/DL HIGH RISK: >240 MG/DL >200 MG/DL CLASS. FOR PRIMARY LDL CHOL PREVENTION: LDL CHOL-CHILD/ADOLESCENTS* DESIRABLE: <130 MG/DL <110 MG/DL BORDERLINE-HIGH RISK: 130-159 MG/DL 110-129 MG/DL HIGH RISK: >160 MG/DL >130 MG/DL *CHILDREN AND ADOLESCENTS REPRESENTS INDIVIDUALA AGED 2-19 YEARS EXCLUSIVE. CHRONIC KIDNEY DISEASE STAGING PER NKF: MALE [...] mL/min Normal 80 and above >32 mL/min NormalNORMAL RANGES Age WBC RBC HGB HCT MCV PLT Adult M 4.1-10.9 4.20-6.30 12.0-18.0 37.0-51.0 80-97 140-440 Adult F 4.1-10.9 4.04-5.48 12.0-18.0 37.0-51.0 80-97 140-440 0- 1 Yr 5.0-20.0 3.9-5.9 15-18 MV: 44 MV: [...] AUTOMATED BLOOD COUNTS AND DIFF.) APPENDIX B-3 Co2 24.5 mmol/L 22.0-29.0 [facility] ([facility] CLASSIFICATION CHOLESTEROL FO R ADULTS CHILDREN/ADOLESCENTS* DESIRABLE: <200 MG/DL <170 MG/DL BORDER-LINE HIGH RISK: 200-239 MG/DL 170-199 MG/DL HIGH RISK: >240 MG/DL >200 MG/DL CLASS. FOR PRIMARY LDL CHOL PREVENTION: LDL CHOL-CHILD/ADOLESCENTS* DESIRABLE: <130 MG/DL <110 MG/DL BORDERLINE-HIGH RISK: 130-159 MG/DL 110-129 MG/DL HIGH RISK: >160 MG/DL >130 MG/DL *CHILDREN AND ADOLESCENTS REPRESENTS INDIVIDUALA AGED 2-19 YEARS EXCLUSIVE. CHRONIC KIDNEY DISEASE STAGING PER NKF: MALE [...] mL/min Normal 80 and above >32 mL/min NormalNORMAL RANGES Age WBC RBC HGB HCT MCV PLT Adult M 4.1-10.9 4.20-6.30 12.0-18.0 37.0-51.0 80-97 140-440 Adult F 4.1-10.9 4.04-5.48 12.0-18.0 37.0-51.0 80-97 140-440 0- 1 Yr 5.0-20.0 3.9-5.9 15-18 MV: 44 MV: 91 MV: 277 2-9 Yr. 6.0-17.0 3.8-5.4 11-13 MV: 37 MV: 78 MV: 300 10 Yrs. 5.0-13.0 3.8-5.4 12-15 MV: 39 MV: 80 MV: 250 NOTE: * FOR ADULT BLACK MALES AND FEMALES, NORMAL WBC IS 2.9-7.7 K/ML * FOR ADULT BLACK MALES AND FEMALES, NORMAL RBC,HGB, AND HCT IS 5% LESS SOURCE FOR DATA: [employer] 1800 OPERATION MANUAL( AUTOMATED BLOOD COUNTS AND DIFF.) APPENDIX B-3 CL 101.9 mmol/L 98.0-107.0 [facility] ([facility] CLASSIFICATION CHOLESTEROL FO R ADULTS CHILDREN/ADOLESCENTS* DESIRABLE: <200 MG/DL <170 MG/DL BORDER-LINE HIGH RISK: 200-239 MG/DL 170-199 MG/DL HIGH RISK: >240 MG/DL >200 MG/DL CLASS. FOR PRIMARY LDL CHOL PREVENTION: LDL CHOL-CHILD/ADOLESCENTS* DESIRABLE: <130 MG/DL <110 MG/DL BORDERLINE-HIGH RISK: 130-159 MG/DL 110-129 MG/DL HIGH RISK: >160 MG/DL >130 MG/DL *CHILDREN AND ADOLESCENTS REPRESENTS INDIVIDUALA AGED 2-19 YEARS EXCLUSIVE. CHRONIC KIDNEY DISEASE STAGING PER NKF: MALE [...] mL/min Normal 80 and above >32 mL/min NormalNORMAL RANGES Age WBC RBC HGB HCT MCV PLT Adult M 4.1-10.9 4.20-6.30 12.0-18.0 37.0-51.0 80-97 140-440 Adult F 4.1-10.9 4.04-5.48 12.0-18.0 37.0-51.0 80-97 140-440 0- 1 Yr 5.0-20.0 3.9-5.9 15-18 MV: 44 MV: [...] AUTOMATED BLOOD COUNTS AND DIFF.) APPENDIX B-3 TP 7.0 g/dL 6.6-8.7 [facility] CLASSIFICATION CHOLESTEROL FO R ADULTS CHILDREN/ADOLESCENTS* DESIRABLE: <200 MG/DL <170 MG/DL BORDER-LINE HIGH RISK: 200-239 MG/DL 170-199 MG/DL HIGH RISK: >240 MG/DL >200 MG/DL CLASS. FOR PRIMARY LDL CHOL PREVENTION: LDL CHOL-CHILD/ADOLESCENTS* DESIRABLE: <130 MG/DL <110 MG/DL BORDERLINE-HIGH RISK: 130-159 MG/DL 110-129 MG/DL HIGH RISK: >160 MG/DL >130 MG/DL *CHILDREN AND ADOLESCENTS REPRESENTS INDIVIDUALA AGED 2-19 YEARS EXCLUSIVE. CHRONIC KIDNEY DISEASE STAGING PER NKF: MALE [...] mL/min Normal 80 and above >32 mL/min NormalNORMAL RANGES Age WBC RBC HGB HCT MCV PLT Adult M 4.1-10.9 4.20-6.30 12.0-18.0 37.0-51.0 80-97 140-440 Adult F 4.1-10.9 4.04-5.48 12.0-18.0 37.0-51.0 80-97 140-440 0- 1 Yr 5.0-20.0 3.9-5.9 15-18 MV: 44 MV: [...] AUTOMATED BLOOD COUNTS AND DIFF.) APPENDIX B-3 Alb 4.1 g/dL 3.5-5.2 [facility] CLASSIFICATION CHOLESTEROL FO R ADULTS CHILDREN/ADOLESCENTS* DESIRABLE: <200 MG/DL <170 MG/DL BORDER-LINE HIGH RISK: 200-239 MG/DL 170-199 MG/DL HIGH RISK: >240 MG/DL >200 MG/DL CLASS. FOR PRIMARY LDL CHOL PREVENTION: LDL CHOL-CHILD/ADOLESCENTS* DESIRABLE: <130 MG/DL <110 MG/DL BORDERLINE-HIGH RISK: 130-159 MG/DL 110-129 MG/DL HIGH RISK: >160 MG/DL >130 MG/DL *CHILDREN AND ADOLESCENTS REPRESENTS INDIVIDUALA AGED 2-19 YEARS EXCLUSIVE. CHRONIC KIDNEY DISEASE STAGING PER NKF: MALE [...] mL/min Normal 80 and above >32 mL/min NormalNORMAL RANGES Age WBC RBC HGB HCT MCV PLT Adult M 4.1-10.9 4.20-6.30 12.0-18.0 37.0-51.0 80-97 140-440 Adult F 4.1-10.9 4.04-5.48 12.0-18.0 37.0-51.0 80-97 140-440 0- 1 Yr 5.0-20.0 3.9-5.9 15-18 MV: 44 MV: 91 MV: 277 2-9 Yr. 6.0-17.0 3.8-5.4 11-13 MV: 37 MV: 78 MV: 300 10 Yrs. 5.0-13.0 3.8-5.4 12-15 MV: 39 MV: 80 MV: 250 NOTE: * FOR ADULT BLACK MALES AND FEMALES, NORMAL WBC IS 2.9-7.7 K/ML * FOR ADULT BLACK MALES AND FEMALES, NORMAL RBC,HGB, AND HCT IS 5% LESS SOURCE FOR DATA: [employer] 1800 OPERATION MANUAL( AUTOMATED BLOOD COUNTS AND DIFF.) APPENDIX B-3 A/G Ratio 1.4 CALC [facility] ([facility] CLASSIFICATION CHOLESTEROL FO R ADULTS CHILDREN/ADOLESCENTS* DESIRABLE: <200 MG/DL <170 MG/DL BORDER-LINE HIGH RISK: 200-239 MG/DL 170-199 MG/DL HIGH RISK: >240 MG/DL >200 MG/DL CLASS. FOR PRIMARY LDL CHOL PREVENTION: LDL CHOL-CHILD/ADOLESCENTS* DESIRABLE: <130 MG/DL <110 MG/DL BORDERLINE-HIGH RISK: 130-159 MG/DL 110-129 MG/DL HIGH RISK: >160 MG/DL >130 MG/DL *CHILDREN AND ADOLESCENTS REPRESENTS INDIVIDUALA AGED 2-19 YEARS EXCLUSIVE. CHRONIC KIDNEY DISEASE STAGING PER NKF: MALE [...] mL/min Normal 80 and above >32 mL/min NormalNORMAL RANGES Age WBC RBC HGB HCT MCV PLT Adult M 4.1-10.9 4.20-6.30 12.0-18.0 37.0-51.0 80-97 140-440 Adult F 4.1-10.9 4.04-5.48 12.0-18.0 37.0-51.0 80-97 140-440 0- 1 Yr 5.0-20.0 3.9-5.9 15-18 MV: 44 MV: 91 MV: 277 2-9 Yr. 6.0-17.0 3.8-5.4 11-13 MV: 37 MV: 78 MV: 300 10 Yrs. 5.0-13.0 3.8-5.4 12-15 MV: 39 MV: 80 MV: 250 NOTE: * FOR ADULT BLACK MALES AND FEMALES, NORMAL WBC IS 2.9-7.7 K/ML * FOR ADULT BLACK MALES AND FEMALES, NORMAL RBC,HGB, AND HCT IS 5% LESS SOURCE FOR DATA: [employer] 1800 OPERATION MANUAL( AUTOMATED BLOOD COUNTS AND DIFF.) APPENDIX B-3 Globulin 2.9 CALC [facility] CLASSIFICATION CHOLESTEROL FO R ADULTS CHILDREN/ADOLESCENTS* DESIRABLE: <200 MG/DL <170 MG/DL BORDER-LINE HIGH RISK: 200-239 MG/DL 170-199 MG/DL HIGH RISK: >240 MG/DL >200 MG/DL CLASS. FOR PRIMARY LDL CHOL PREVENTION: LDL CHOL-CHILD/ADOLESCENTS* DESIRABLE: <130 MG/DL <110 MG/DL BORDERLINE-HIGH RISK: 130-159 MG/DL 110-129 MG/DL HIGH RISK: >160 MG/DL >130 MG/DL *CHILDREN AND ADOLESCENTS REPRESENTS INDIVIDUALA AGED 2-19 YEARS EXCLUSIVE. CHRONIC KIDNEY DISEASE STAGING PER NKF: MALE [...] mL/min Normal 80 and above >32 mL/min NormalNORMAL RANGES Age WBC RBC HGB HCT MCV PLT Adult M 4.1-10.9 4.20-6.30 12.0-18.0 37.0-51.0 80-97 140-440 Adult F 4.1-10.9 4.04-5.48 12.0-18.0 37.0-51.0 80-97 140-440 0- 1 Yr 5.0-20.0 3.9-5.9 15-18 MV: 44 MV: [...] AUTOMATED BLOOD COUNTS AND DIFF.) APPENDIX B-3 Alp 74.9 U/L 40-129 [facility] ([facility] CLASSIFICATION CHOLESTEROL FO R ADULTS CHILDREN/ADOLESCENTS* DESIRABLE: <200 MG/DL <170 MG/DL BORDER-LINE HIGH RISK: 200-239 MG/DL 170-199 MG/DL HIGH RISK: >240 MG/DL >200 MG/DL CLASS. FOR PRIMARY LDL CHOL PREVENTION: LDL CHOL-CHILD/ADOLESCENTS* DESIRABLE: <130 MG/DL <110 MG/DL BORDERLINE-HIGH RISK: 130-159 MG/DL 110-129 MG/DL HIGH RISK: >160 MG/DL >130 MG/DL *CHILDREN AND ADOLESCENTS REPRESENTS INDIVIDUALA AGED 2-19 YEARS EXCLUSIVE. CHRONIC KIDNEY DISEASE STAGING PER NKF: MALE [...] mL/min Normal 80 and above >32 mL/min NormalNORMAL RANGES Age WBC RBC HGB HCT MCV PLT Adult M 4.1-10.9 4.20-6.30 12.0-18.0 37.0-51.0 80-97 140-440 Adult F 4.1-10.9 4.04-5.48 12.0-18.0 37.0-51.0 80-97 140-440 0- 1 Yr 5.0-20.0 3.9-5.9 15-18 MV: 44 MV: 91 MV: 277 2-9 Yr. 6.0-17.0 3.8-5.4 11-13 MV: 37 MV: 78 MV: 300 10 Yrs. 5.0-13.0 3.8-5.4 12-15 MV: 39 MV: 80 MV: 250 NOTE: * FOR ADULT BLACK MALES AND FEMALES, NORMAL WBC IS 2.9-7.7 K/ML * FOR ADULT BLACK MALES AND FEMALES, NORMAL RBC,HGB, AND HCT IS 5% LESS SOURCE FOR DATA: [employer] DYN 1800 OPERATION MANUAL( AUTOMATED BLOOD COUNTS AND DIFF.) APPENDIX B-3 Alt (SGPT) 10 U/L 0-41 [facility] ([facility] CLASSIFICATION CHOLESTEROL FO R ADULTS CHILDREN/ADOLESCENTS* DESIRABLE: <200 MG/DL <170 MG/DL BORDER-LINE HIGH RISK: 200-239 MG/DL 170-199 MG/DL HIGH RISK: >240 MG/DL >200 MG/DL CLASS. FOR PRIMARY LDL CHOL PREVENTION: LDL CHOL-CHILD/ADOLESCENTS* DESIRABLE: <130 MG/DL <110 MG/DL BORDERLINE-HIGH RISK: 130-159 MG/DL 110-129 MG/DL HIGH RISK: >160 MG/DL >130 MG/DL *CHILDREN AND ADOLESCENTS REPRESENTS INDIVIDUALA AGED 2-19 YEARS EXCLUSIVE. CHRONIC KIDNEY DISEASE STAGING PER NKF: MALE [...] mL/min Normal 80 and above >32 mL/min NormalNORMAL RANGES Age WBC RBC HGB HCT MCV PLT Adult M 4.1-10.9 4.20-6.30 12.0-18.0 37.0-51.0 80-97 140-440 Adult F 4.1-10.9 4.04-5.48 12.0-18.0 37.0-51.0 80-97 140-440 0- 1 Yr 5.0-20.0 3.9-5.9 15-18 MV: 44 MV: 91 MV: 277 2-9 Yr. 6.0-17.0 3.8-5.4 11-13 MV: 37 MV: 78 MV: 300 10 Yrs. 5.0-13.0 3.8-5.4 12-15 MV: 39 MV: 80 MV: 250 NOTE: * FOR ADULT BLACK MALES AND FEMALES, NORMAL WBC IS 2.9-7.7 K/ML * FOR ADULT BLACK MALES AND FEMALES, NORMAL RBC,HGB, AND HCT IS 5% LESS SOURCE FOR DATA: [employer] DYN 1800 OPERATION MANUAL( AUTOMATED BLOOD COUNTS AND DIFF.) APPENDIX B-3 Osmolality-Calculated 286.9 [facility] ([facility] CLASSIFICATION CHOLESTEROL FO R ADULTS CHILDREN/ADOLESCENTS* DESIRABLE: <200 MG/DL <170 MG/DL BORDER-LINE HIGH RISK: 200-239 MG/DL 170-199 MG/DL HIGH RISK: >240 MG/DL >200 MG/DL CLASS. FOR PRIMARY LDL CHOL PREVENTION: LDL CHOL-CHILD/ADOLESCENTS* DESIRABLE: <130 MG/DL <110 MG/DL BORDERLINE-HIGH RISK: 130-159 MG/DL 110-129 MG/DL HIGH RISK: >160 MG/DL >130 MG/DL *CHILDREN AND ADOLESCENTS REPRESENTS INDIVIDUALA AGED 2-19 YEARS EXCLUSIVE. CHRONIC KIDNEY DISEASE STAGING PER NKF: MALE [...] mL/min Normal 80 and above >32 mL/min NormalNORMAL RANGES Age WBC RBC HGB HCT MCV PLT Adult M 4.1-10.9 4.20-6.30 12.0-18.0 37.0-51.0 80-97 140-440 Adult F 4.1-10.9 4.04-5.48 12.0-18.0 37.0-51.0 80-97 140-440 0- 1 Yr 5.0-20.0 3.9-5.9 15-18 MV: 44 MV: 91 MV: 277 2-9 Yr. 6.0-17.0 3.8-5.4 11-13 MV: 37 MV: 78 MV: 300 10 Yrs. 5.0-13.0 3.8-5.4 12-15 MV: 39 MV: 80 MV: 250 NOTE: * FOR ADULT BLACK MALES AND FEMALES, NORMAL WBC IS 2.9-7.7 K/ML * FOR ADULT BLACK MALES AND FEMALES, NORMAL RBC,HGB, AND HCT IS 5% LESS SOURCE FOR DATA: [employer] 1800 OPERATION MANUAL( AUTOMATED BLOOD COUNTS AND DIFF.) APPENDIX B-3 Ast (Sgot) 16 U/L 0-40 [facility] CLASSIFICATION CHOLESTEROL FO R ADULTS CHILDREN/ADOLESCENTS* DESIRABLE: <200 MG/DL <170 MG/DL BORDER-LINE HIGH RISK: 200-239 MG/DL 170-199 MG/DL HIGH RISK: >240 MG/DL >200 MG/DL CLASS. FOR PRIMARY LDL CHOL PREVENTION: LDL CHOL-CHILD/ADOLESCENTS* DESIRABLE: <130 MG/DL <110 MG/DL BORDERLINE-HIGH RISK: 130-159 MG/DL 110-129 MG/DL HIGH RISK: >160 MG/DL >130 MG/DL *CHILDREN AND ADOLESCENTS REPRESENTS INDIVIDUALA AGED 2-19 YEARS EXCLUSIVE. CHRONIC KIDNEY DISEASE STAGING PER NKF: MALE [...] mL/min Normal 80 and above >32 mL/min NormalNORMAL RANGES Age WBC RBC HGB HCT MCV PLT Adult M 4.1-10.9 4.20-6.30 12.0-18.0 37.0-51.0 80-97 140-440 Adult F 4.1-10.9 4.04-5.48 12.0-18.0 37.0-51.0 80-97 140-440 0- 1 Yr 5.0-20.0 3.9-5.9 15-18 MV: 44 MV: 91 MV: 277 2-9 Yr. 6.0-17.0 3.8-5.4 11-13 MV: 37 MV: 78 MV: 300 10 Yrs. 5.0-13.0 3.8-5.4 12-15 MV: 39 MV: 80 MV: 250 NOTE: * FOR ADULT BLACK MALES AND FEMALES, NORMAL WBC IS 2.9-7.7 K/ML * FOR ADULT BLACK MALES AND FEMALES, NORMAL RBC,HGB, AND HCT IS 5% LESS SOURCE FOR DATA: [employer] 1800 OPERATION MANUAL( AUTOMATED BLOOD COUNTS AND DIFF.) APPENDIX B-3 Tbili 0.39 mg/dL 0.0-1.2 [facility] ([facility] CLASSIFICATION CHOLESTEROL FO R ADULTS CHILDREN/ADOLESCENTS* DESIRABLE: <200 MG/DL <170 MG/DL BORDER-LINE HIGH RISK: 200-239 MG/DL 170-199 MG/DL HIGH RISK: >240 MG/DL >200 MG/DL CLASS. FOR PRIMARY LDL CHOL PREVENTION: LDL CHOL-CHILD/ADOLESCENTS* DESIRABLE: <130 MG/DL <110 MG/DL BORDERLINE-HIGH RISK: 130-159 MG/DL 110-129 MG/DL HIGH RISK: >160 MG/DL >130 MG/DL *CHILDREN AND ADOLESCENTS REPRESENTS INDIVIDUALA AGED 2-19 YEARS EXCLUSIVE. CHRONIC KIDNEY DISEASE STAGING PER NKF: MALE [...] mL/min Normal 80 and above >32 mL/min NormalNORMAL RANGES Age WBC RBC HGB HCT MCV PLT Adult M 4.1-10.9 4.20-6.30 12.0-18.0 37.0-51.0 80-97 140-440 Adult F 4.1-10.9 4.04-5.48 12.0-18.0 37.0-51.0 80-97 140-440 0- 1 Yr 5.0-20.0 3.9-5.9 15-18 MV: 44 MV: [...] AUTOMATED BLOOD COUNTS AND DIFF.) APPENDIX B-3 Anion Gap 18 mmol/L [facility] CLASSIFICATION CHOLESTEROL FO R ADULTS CHILDREN/ADOLESCENTS* DESIRABLE: <200 MG/DL <170 MG/DL BORDER-LINE HIGH RISK: 200-239 MG/DL 170-199 MG/DL HIGH RISK: >240 MG/DL >200 MG/DL CLASS. FOR PRIMARY LDL CHOL PREVENTION: LDL CHOL-CHILD/ADOLESCENTS* DESIRABLE: <130 MG/DL <110 MG/DL BORDERLINE-HIGH RISK: 130-159 MG/DL 110-129 MG/DL HIGH RISK: >160 MG/DL >130 MG/DL *CHILDREN AND ADOLESCENTS REPRESENTS INDIVIDUALA AGED 2-19 YEARS EXCLUSIVE. CHRONIC KIDNEY DISEASE STAGING PER NKF: MALE [...] mL/min Normal 80 and above >32 mL/min NormalNORMAL RANGES Age WBC RBC HGB HCT MCV PLT Adult M 4.1-10.9 4.20-6.30 12.0-18.0 37.0-51.0 80-97 140-440 Adult F 4.1-10.9 4.04-5.48 12.0-18.0 37.0-51.0 80-97 140-440 0- 1 Yr 5.0-20.0 3.9-5.9 15-18 MV: 44 MV: 91 MV: 277 2-9 Yr. 6.0-17.0 3.8-5.4 11-13 MV: 37 MV: 78 MV: 300 10 Yrs. 5.0-13.0 3.8-5.4 12-15 MV: 39 MV: 80 MV: 250 NOTE: * FOR ADULT BLACK MALES AND FEMALES, NORMAL WBC IS 2.9-7.7 K/ML * FOR ADULT BLACK MALES AND FEMALES, NORMAL RBC,HGB, AND HCT IS 5% LESS SOURCE FOR DATA: [employer] 1800 OPERATION MANUAL( AUTOMATED BLOOD COUNTS AND DIFF.) APPENDIX B-3 eGFR 55 # MEDENT ( [facility] CLASSIFICATION CHOLESTEROL FO R ADULTS CHILDREN/ADOLESCENTS* DESIRABLE: <200 MG/DL <170 MG/DL BORDER-LINE HIGH RISK: 200-239 MG/DL 170-199 MG/DL HIGH RISK: >240 MG/DL >200 MG/DL CLASS. FOR PRIMARY LDL CHOL PREVENTION: LDL CHOL-CHILD/ADOLESCENTS* DESIRABLE: <130 MG/DL <110 MG/DL BORDERLINE-HIGH RISK: 130-159 MG/DL 110-129 MG/DL HIGH RISK: >160 MG/DL >130 MG/DL *CHILDREN AND ADOLESCENTS REPRESENTS INDIVIDUALA AGED 2-19 YEARS EXCLUSIVE. CHRONIC KIDNEY DISEASE STAGING PER NKF: MALE [...] mL/min Normal 80 and above >32 mL/min NormalNORMAL RANGES Age WBC RBC HGB HCT MCV PLT Adult M 4.1-10.9 4.20-6.30 12.0-18.0 37.0-51.0 80-97 140-440 Adult F 4.1-10.9 4.04-5.48 12.0-18.0 37.0-51.0 80-97 140-440 0- 1 Yr 5.0-20.0 3.9-5.9 15-18 MV: 44 MV: 91 MV: 277 2-9 Yr. 6.0-17.0 3.8-5.4 11-13 MV: 37 MV: 78 MV: 300 10 Yrs. 5.0-13.0 3.8-5.4 12-15 MV: 39 MV: 80 MV: 250 NOTE: * FOR ADULT BLACK MALES AND FEMALES, NORMAL WBC IS 2.9-7.7 K/ML * FOR ADULT BLACK MALES AND FEMALES, NORMAL RBC,HGB, AND HCT IS 5% LESS SOURCE FOR DATA: [employer]ed 1800 OPERATION MANUAL( AUTOMATED BLOOD COUNTS AND DIFF.) APPENDIX B-3 eGFR Non-Afr. Welsh 47 # [facility] ([facility] CLASSIFICATION CHOLESTEROL FO R ADULTS CHILDREN/ADOLESCENTS* DESIRABLE: <200 MG/DL <170 MG/DL BORDER-LINE HIGH RISK: 200-239 MG/DL 170-199 MG/DL HIGH RISK: >240 MG/DL >200 MG/DL CLASS. FOR PRIMARY LDL CHOL PREVENTION: LDL CHOL-CHILD/ADOLESCENTS* DESIRABLE: <130 MG/DL <110 MG/DL BORDERLINE-HIGH RISK: 130-159 MG/DL 110-129 MG/DL HIGH RISK: >160 MG/DL >130 MG/DL *CHILDREN AND ADOLESCENTS REPRESENTS INDIVIDUALA AGED 2-19 YEARS EXCLUSIVE. CHRONIC KIDNEY DISEASE STAGING PER NKF: MALE [...] mL/min Normal 80 and above >32 mL/min NormalNORMAL RANGES Age WBC RBC HGB HCT MCV PLT Adult M 4.1-10.9 4.20-6.30 12.0-18.0 37.0-51.0 80-97 140-440 Adult F 4.1-10.9 4.04-5.48 12.0-18.0 37.0-51.0 80-97 140-440 0- 1 Yr 5.0-20.0 3.9-5.9 15-18 MV: 44 MV: [...] AUTOMATED BLOOD COUNTS AND DIFF.) APPENDIX B-3 ID Date Data Source [id number] 07/16/2019 10:56:00 AM EDT LILLIAN ([facility]) Name Value Range Interpretation Code Description Data Annette rce(s) Supporting Document(s) Inr 2.71 LILLIAN (Cardiology A [facility] of [facility]) THERAPUTIC HUMAN INR VALUES INDICATIONS NORMAL RANGES PROPHYLAXIS/TREATMENT OF: VENOUS THROMBOSIS 2.0-3.0 PULMONARY EMBOLISM 2.0-3.0 PREVENTION OF SYSTEMIC EMBOLISM FROM: TISSUE HEART VALVES 2.0-3.0 ACUTE MYOCARDIAL INFARCTION 2.0-3.0 VALVULAR HEART DISEASE 2.0-3.0 ATRIAL FIBRILLATION 2.0-3.0 MECHANICAL VALVES(HIGH RISK) 2.5-3.5 RECURRENT MYOCARDIAL INFARCTION 2.5-3.5 Prothrombin Time 28.6 s 11.8-14.0 MEDENT ([facility]) ID Date Data Source [id number] 07/16/2019 10:56:00 AM EDT MEDENT ([facility] Name Value Range Interpretation Code Description Data Annette rce(s) Supporting Document(s) Prothrombin Time 28.6 s 11.8-14.0 Above high normal M EDENT ([facility] Inr 2.71 Normal (applies to non-numeric resul ts) MEDENT ([facility] THERAPUTIC HUMAN INR VALUES INDICATIONS NORMAL RANGES PROPHYLAXIS/TREATMENT OF: VENOUS THROMBOSIS 2.0-3.0 PULMONARY EMBOLISM 2.0-3.0 PREVENTION OF SYSTEMIC EMBOLISM FROM: TISSUE HEART VALVES 2.0-3.0 ACUTE MYOCARDIAL INFARCTION 2.0-3.0 VALVULAR HEART DISEASE 2.0-3.0 ATRIAL FIBRILLATION 2.0-3.0 MECHANICAL VALVES(HIGH RISK) 2.5-3.5 RECURRENT MYOCARDIAL INFARCTION 2.5-3.5 ID Date Data Source [id number] 06/23/2019 07:50:00 AM EST MEDENT ([facility]) Name Value Range Interpretation Code Description Data Annette rce(s) Supporting Document(s) Inr 2.62 MEDENT (Cardiology A [facility]) THERAPUTIC HUMAN INR VALUES INDICATIONS NORMAL RANGES PROPHYLAXIS/TREATMENT OF: VENOUS THROMBOSIS 2.0-3.0 PULMONARY EMBOLISM 2.0-3.0 PREVENTION OF SYSTEMIC EMBOLISM FROM: TISSUE HEART VALVES 2.0-3.0 ACUTE MYOCARDIAL INFARCTION 2.0-3.0 VALVULAR HEART DISEASE 2.0-3.0 ATRIAL FIBRILLATION 2.0-3.0 MECHANICAL VALVES(HIGH RISK) 2.5-3.5 RECURRENT MYOCARDIAL INFARCTION 2.5-3.5 Prothrombin Time 27.9 s 11.8-14.0 MEDENT ([facility]) ID Date Data Source [id number] 05/27/2019 08:42:00 AM EST MEDENT (Cardi ology [facility]) Name Value Range Interpretation Code Description Data Annette rce(s) Supporting Document(s) Prothrombin Time 34.0 s 11.8-14.0 [facility] ([facility]) Inr 3.36 MEDENT ([facility]) THERAPUTIC HUMAN INR VALUES INDICATIONS NORMAL RANGES PROPHYLAXIS/TREATMENT OF: VENOUS THROMBOSIS 2.0-3.0 PULMONARY EMBOLISM 2.0-3.0 PREVENTION OF SYSTEMIC EMBOLISM FROM: TISSUE HEART VALVES 2.0-3.0 ACUTE MYOCARDIAL INFARCTION 2.0-3.0 VALVULAR HEART DISEASE 2.0-3.0 ATRIAL FIBRILLATION 2.0-3.0 MECHANICAL VALVES(HIGH RISK) 2.5-3.5 RECURRENT MYOCARDIAL INFARCTION 2.5-3.5 ID Date Data Source [id number] 05/06/2019 11:09:00 AM EST [facility] ([facility]) Name Value Range Interpretation Code Description Data Annette rce(s) Supporting Document(s) Magnesium Level 2.25 [facility] ([facility]) ID Date Data Source [id number] 05/06/2019 11:09:00 AM EST [facility] ([facility]) Name Value Range Interpretation Code Description Data Annette rce(s) Supporting Document(s) White Blood Count 7.4 5.0-10.0 MEDENT (Card iology [facility]) Red Blood Count 3.73 4.70-6.10 MEDENT (Cardio logy [facility]) Platelets 231 172-450 MEDENT ([facility]iology [facility]) Hematocrit 37.0 42.0-52.0 MEDENT (Cardiology [facility]) Hemoglobin 12.0 14.0-18.0 MEDENT (Cardiology [facility]) ID Date Data Source [id number] 05/06/2019 11:09:00 AM EST [facility] ([facility]) Name Value Range Interpretation Code Description Data Annette rce(s) Supporting Document(s) Glucose 111 70-100 MEDENT ([facility]) Blood Urea Nitrogen 27.9 5-21 MEDENT (Ca rdiology [facility]) Sodium 140.3 136-146 MEDENT ([facility]iology [facility]) Glomerular filtration rate/1.73 sq M.pre dicted [Volume Rate/Area] in Serum or Plasma by Creatinine-based formula (MDRD) 51 MEDENT ([facility]) Creatinine 1.34 0.6-1.5 MEDENT ([facility]) Chloride 100.4 98-110 MEDENT (Cardiology A [facility]) Potassium 3.85 3.5-5.3 MEDENT ([facility]) Carbon Dioxide 31.8 20-32 MEDENT (Cardiol ogy [facility]) Albumin 4.2 3.5-4.7 [facility] Phosphorus 3.12 MEDENT ([facility]) Calcium 9.49 8.4-10.4 MEDENT ([facility]iology [facility]) ID Date Data Source [id number] 05/06/2019 07:48:00 AM EST [facility] ([facility] Name Value Range Interpretation Code Description Data Annette rce(s) Supporting Document(s) Prothrombin Time 34.7 s 11.8-14.0 [facility] ([facility]) Inr 3.44 MED[facility] ([facility] THERAPUTIC HUMAN INR VALUES INDICATIONS NORMAL RANGES PROPHYLAXIS/TREATMENT OF: VENOUS THROMBOSIS 2.0-3.0 PULMONARY EMBOLISM 2.0-3.0 PREVENTION OF SYSTEMIC EMBOLISM FROM: TISSUE HEART VALVES 2.0-3.0 ACUTE MYOCARDIAL INFARCTION 2.0-3.0 VALVULAR HEART DISEASE 2.0-3.0 ATRIAL FIBRILLATION 2.0-3.0 MECHANICAL VALVES(HIGH RISK) 2.5-3.5 RECURRENT MYOCARDIAL INFARCTION 2.5-3.5 ID Date Data Source [id number] 04/29/2019 08:11:00 AM EST [facility] ([facility] Name Value Range Interpretation Code Description Data Annette rce(s) Supporting Document(s) Prothrombin Time 40.7 s 11.8-14.0 [facility] ([facility]) Inr 4.20 [facility] ([facility] THERAPUTIC HUMAN INR VALUES INDICATIONS NORMAL RANGES PROPHYLAXIS/TREATMENT OF: VENOUS THROMBOSIS 2.0-3.0 PULMONARY EMBOLISM 2.0-3.0 PREVENTION OF SYSTEMIC EMBOLISM FROM: TISSUE HEART VALVES 2.0-3.0 ACUTE MYOCARDIAL INFARCTION 2.0-3.0 VALVULAR HEART DISEASE 2.0-3.0 ATRIAL FIBRILLATION 2.0-3.0 MECHANICAL VALVES(HIGH RISK) 2.5-3.5 RECURRENT MYOCARDIAL INFARCTION 2.5-3.5 ID Date Data Source [id number] 04/29/2019 08:11:00 AM EST MEDENT ([facility] Name Value Range Interpretation Code Description Data Annette rce(s) Supporting Document(s) Inr 4.20 Normal (applies to non-numeric resul ts) MEDENT ([facility] THERAPUTIC HUMAN INR VALUES INDICATIONS NORMAL RANGES PROPHYLAXIS/TREATMENT OF: VENOUS THROMBOSIS 2.0-3.0 PULMONARY EMBOLISM 2.0-3.0 PREVENTION OF SYSTEMIC EMBOLISM FROM: TISSUE HEART VALVES 2.0-3.0 ACUTE MYOCARDIAL INFARCTION 2.0-3.0 VALVULAR HEART DISEASE 2.0-3.0 ATRIAL FIBRILLATION 2.0-3.0 MECHANICAL VALVES(HIGH RISK) 2.5-3.5 RECURRENT MYOCARDIAL INFARCTION 2.5-3.5 Prothrombin Time 40.7 s 11.8-14.0 Above high normal M EDENT ([facility] ID Date Data Source [id number] 04/01/2019 10:53:00 AM EST MEDENT ([facility]) Name Value Range Interpretation Code Description Data Annette rce(s) Supporting Document(s) Inr 3.32 [facility] THERAPUTIC HUMAN INR VALUES INDICATIONS NORMAL RANGES PROPHYLAXIS/TREATMENT OF: VENOUS THROMBOSIS 2.0-3.0 PULMONARY EMBOLISM 2.0-3.0 PREVENTION OF SYSTEMIC EMBOLISM FROM: TISSUE HEART VALVES 2.0-3.0 ACUTE MYOCARDIAL INFARCTION 2.0-3.0 VALVULAR HEART DISEASE 2.0-3.0 ATRIAL FIBRILLATION 2.0-3.0 MECHANICAL VALVES(HIGH RISK) 2.5-3.5 RECURRENT MYOCARDIAL INFARCTION 2.5-3.5 Prothrombin Time 33.7 s 11.8-14.0 [facility] ([facility]) Procedure Social History Code Duration Value Status Description Data Source(s ) Smoking 02/05/2020 12:00:00 AM EDT Patient is a former smoker completed Patient is a former smoker MEDENT ([facility]) Vital Signs ID Date Data Source [id number] Name Value Range Interpretation Code Description Data Source(s) Oxygen saturation in Arterial blood by Pulse oximetry 97 % 97 % [facility] ([facility] [place] body weight 178 [lb_av] 178 [lb_av] MEDEN T ([facility] Body height 72 [in_i] 72 [in_i] MEDENT ([facility] 6'0" Respiratory rate 18 /min 18 /min MEDENT ( [facility] Heart rate 64 /min 64 /min MED[facility] ([facility] Body temperature 97.9 [degF] 97.9 [degF] MED[facility] ([facility] Diastolic blood pressure 66 mm[Hg] 66 mm[Hg] MED[facility] ([facility] Systolic blood pressure 122 mm[Hg] 122 mm[Hg] M EDENT ([facility] Oxygen saturation in Arterial blood by Pulse oximetry 97 % 97 % MED[facility] ([facility] Body mass index (BMI) [Ratio] 33.9 kg/m2 33.9 k g/m2 MED[facility] ([facility] [place] body weight 178 [lb_av] 178 [lb_av] MEDEN T ([facility] Body weight 250.00 [lb_av] 250.00 [lb_av] MEDEN T ([facility] Body height 72 [in_i] 72 [in_i] MEDENT ([facility] 6'0" Respiratory rate 14 /min 14 /min MEDENT ( [facility] Heart rate 58 /min 58 /min MED[facility] ([facility] Body temperature 97.3 [degF] 97.3 [degF] MED[facility] ([facility] Diastolic blood pressure 60 mm[Hg] 60 mm[Hg] MED[facility] ([facility] Systolic blood pressure 138 mm[Hg] 138 mm[Hg] M EDENT ([facility] Diastolic blood pressure 68 mm[Hg] 68 mm[Hg] MEDENT ([facility]) sitting Systolic blood pressure 122 mm[Hg] 122 mm[Hg] M EDENT ([facility]) sitting Diastolic blood pressure 68 mm[Hg] 68 mm[Hg] MEDENT ([facility]) sitting, large cuff Systolic blood pressure 118 mm[Hg] 118 mm[Hg] M EDENT ([facility]) sitting, large cuff Body height 72 [in_i] 72 [in_i] MEDENT ([facility]i [facility]) 6'0" Body weight 253.00 [lb_av] 253.00 [lb_av] MEDEN T ([facility]) Respiratory rate 16 /min 16 /min MEDENT ( [facility]) Heart rate 60 /min 60 /min MEDENT ([facility]io [facility]) Regular Body mass index (BMI) [Ratio] 34.3 kg/m2 34.3 k g/m2 MEDENT ([facility]) Body weight 125.647 kg 125.647 [facility] Body mass index (BMI) [Ratio] 37.6 kg/m2 37.6 k g/m2 [facility] Body weight 277.00 [lb_av] 277.00 [lb_av] MEDEN T ([facility]) Body height 72 [in_i] 72 [in_i] [facility] ([facility]) 6'0" Diastolic blood pressure 62 mm[Hg] 62 mm[Hg] [facility] ([facility]) Systolic blood pressure 152 mm[Hg] 152 mm[Hg] [facility] Body mass index (BMI) [Ratio] 37.6 kg/m2 37.6 k g/m2 MEDENT ([facility] [place] body weight 178 [lb_av] 178 [lb_av] MEDEN T ([facility] Body weight 277.00 [lb_av] 277.00 [lb_av] MEDEN T ([facility] Body height 72 [in_i] 72 [in_i] MEDENT ([facility] 6'0" Respiratory rate 18 /min 18 /min MEDENT ( [facility] Heart rate 68 /min 68 /min MEDENT ([facility] Body temperature 98.3 [degF] 98.3 [degF] MEDENT ([facility] Diastolic blood pressure 76 mm[Hg] 76 mm[Hg] MEDENT ([facility] Systolic blood pressure 128 mm[Hg] 128 mm[Hg] M EDENT ([facility] Oxygen saturation in Arterial blood by Pulse oximetry 94 % 94 % MEDENT ([facility] Oxygen saturation in Arterial blood by Pulse oximetry 98 % 98 % MEDENT ([facility] Body mass index (BMI) [Ratio] 36.9 kg/m2 36.9 k g/m2 MEDENT ([facility] [place] body weight 178 [lb_av] 178 [lb_av] MEDEN T ([facility] Body weight 272.00 [lb_av] 272.00 [lb_av] MEDEN T ([facility] Body height 72 [in_i] 72 [in_i] MEDENT ([facility] 6'0" Respiratory rate 18 /min 18 /min MEDENT ( [facility] Heart rate 60 /min 60 /min MEDENT ([facility] Body temperature 97.9 [degF] 97.9 [degF] MEDENT ([facility] Diastolic blood pressure 58 mm[Hg] 58 mm[Hg] MEDENT ([facility] Systolic blood pressure 130 mm[Hg] 130 mm[Hg] M EDENT ([facility] Oxygen saturation in Arterial blood by Pulse oximetry 96 % 96 % MEDENT ([facility] Body mass index (BMI) [Ratio] 37.3 kg/m2 37.3 k g/m2 MEDENT ([facility] Body weight 275.00 [lb_av] 275.00 [lb_av] MEDEN T ([facility] Body height 72 [in_i] 72 [in_i] MEDENT ([facility] 6'0" Respiratory rate 18 /min 18 /min MEDENT ( [facility] Heart rate 52 /min 52 /min MEDENT ([facility] Body temperature 97.3 [degF] 97.3 [degF] MEDENT ([facility] Diastolic blood pressure 66 mm[Hg] 66 mm[Hg] MEDENT ([facility] Systolic blood pressure 126 mm[Hg] 126 mm[Hg] M EDENT ([facility] Diastolic blood pressure 68 mm[Hg] 68 mm[Hg] MEDENT ([facility]) sitting Systolic blood pressure 128 mm[Hg] 128 mm[Hg] M EDENT ([facility]) sitting Diastolic blood pressure 68 mm[Hg] 68 mm[Hg] MEDENT ([facility]) sitting, large cuff Systolic blood pressure 132 mm[Hg] 132 mm[Hg] M EDENT ([facility]) sitting, large cuff Respiratory rate 16 /min 16 /min MEDENT ( [facility]) Heart rate 60 /min 60 /min MEDENT ([facility]io [facility]y [facility]) Irregular Body mass index (BMI) [Ratio] 37.6 kg/m2 37.6 k g/m2 MEDENT ([facility]) Body height 72 [in_i] 72 [in_i] MEDENT ([facility]i [facility]) 6'0" Body weight 277.00 [lb_av] 277.00 [lb_av] NAVYA T ([facility])
[2020-05-19 14:43] VITALS: BP 152/66
[2020-05-19] MEDS ORDERED: ACETAMINOPHEN TAB 650MG DOSE (2X325MG) PO PRN (16:30)
[2020-05-19] MEDS ORDERED: NITROGLYCERIN 0.4 MG SUBL TABLET SL PRN (16:30)
[2020-05-19] MEDS ORDERED: BISACODYL 10 MG SUPP PR PRN (16:30)
[2020-05-19] MEDS ORDERED: WARFARIN SOD 3MG TAB PO SCH (17:00)
[2020-05-19] MEDS: SUCRALFATE 1 GM TAB PO SCH ×2 (17:30→20:26)
[2020-05-19] MEDS: IPRATROPIUM 0.5MG/ALBUTEROL 2.5MG INH SOL UD 3ML (DUONEB) NEB SCH (19:57)
[2020-05-19 20:00] VITALS: BP 126/78
[2020-05-19] MEDS: ADVAIR HFA 230/21MCG INHALER INH SCH (20:00)
[2020-05-19] MEDS: DOCUSATE SODIUM 100MG CAPSULE PO SCH (20:26)
[2020-05-19] MEDS: FLUTICASONE PROP 0.05% NASAL SPRAY 16 GM (FLONASE) NARES SCH (20:26)
[2020-05-19] MEDS: ATORVASTATIN 20 MG TAB PO SCH (20:26)
[2020-05-19] MEDS: OMEPRAZOLE 20 MG CAP PO SCH (20:26)
[2020-05-19] MEDS: SENNA 8.6 MG TAB (SENOKOT) PO SCH (20:26)
[2020-05-19] MEDS: SINEMET 25-100 MG TAB PO SCH (20:26)
[2020-05-19] MEDS: REMEDY PHYTOPLEX Z-GUARD PASTE 113GM TUBE (FROM STOREROOM PRODUCT) TOP SCH (20:27)
[2020-05-20 06:06] VITALS: BP 150/72
[2020-05-20] MEDS: TIOTROPIUM INHALER/CAPSULE (SPIRIVA) INH SCH (07:18)
[2020-05-20] MEDS: ADVAIR HFA 230/21MCG INHALER INH SCH ×2 (07:19→20:07)
[2020-05-20] MEDS: IPRATROPIUM 0.5MG/ALBUTEROL 2.5MG INH SOL UD 3ML (DUONEB) NEB SCH ×4 (07:19→20:00)
[2020-05-20] MEDS: REMEDY PHYTOPLEX Z-GUARD PASTE 113GM TUBE (FROM STOREROOM PRODUCT) TOP SCH ×3 (09:00→21:13)
[2020-05-20] MEDS: OMEPRAZOLE 20 MG CAP PO SCH ×2 (09:13→21:13)
[2020-05-20] MEDS: SINEMET 25-100 MG TAB PO SCH ×3 (09:13→21:13)
[2020-05-20] MEDS: FOLIC ACID 1 MG TAB PO SCH (09:13)
[2020-05-20] MEDS: CALCIUM/VITAMIN D 500 MG TAB PO SCH (09:13)
[2020-05-20] MEDS: allopurinoL 300 MG TAB PO SCH (09:13)
--- NOTE | 2020-05-20 09:13 | HPEPDOC ---
Development Specialist Note DATE OF ADMISSION: 05-19-20 DATE OF SERVICE: 05-19-20 TIME OF ADMISSION: Please refer to physician's admission order. SOURCE OF ADMISSION INFORMATION: [facility] record and patient CHIEF COMPLAINT: metabolic encephalopathy HISTORY OF PRESENT ILLNESS: 80M pmh mechanical aortic valve on Coumadin, CAD with one stent, HTN, Parkinsons disease, chronic anemia, COPD, CAD, BLANE (not on CPAP) who was found unresponsive at home following and presented to [facility] ED on 04-29-20 where he was found to have respiratory acidosis with hypercarbia due to CHF exacerbation. He was placed on ventilator, placed on broad spectrum antibiotics, and diuresed. He had a GI bleed which was treated conservatively with PPI and Carafate. He was extubated 05-02-20 and diagnosed with a multifocal pneumonia with sputum cultures growing MSSA. He was kept NPO and received TPN for, followed closely by renal for volume status, AMINA, and hypernatremia. He cognition improved and he was evaluated by AIR CREW OFFICER who placed him on a puree diet with nectar thickened liquids. He was placed on a heparin drip and transitioned back to Warfarin with no worsening anemia. He was noted to be very weak in therapy requiring assistance in mobility and ADLs and deemed medically appropriate for discharge to ARU on 05-19-20. REVIEW OF SYSTEMS: The following is a completed review of systems and has been reviewed. Review of systems otherwise unremarkable. PAIN: Patient self reports no pain EYES: No recent vision changes EARS, NOSE, & THROAT: + dysphagia CARDIOVASCULAR: Denies chest pain or palpitations PULMONARY: Denies shortness of breath GASTROINTESTINAL: Denies constipation/diarrhea GENITOURINARY: denies dysuria MUSCULOSKELETAL: generalized weakness NEUROLOGICAL: +bilat UE tremor HEMATOLOGICAL: denies easy bruising SKIN: denies rash PSYCHIATRIC: Unremarkable All other review of systems found to be negative. PAST MEDICAL HISTORY: as per HPI PAST SURGICAL HISTORY: As per HPI and tonsillectomy, adenoidectomy, bilat cataract surgery ALLERGIES: Please see below. MEDICATIONS: Please see below. SOCIAL HISTORY: Former smoker, occasional ETOH, no illicit drugs DIET: puree and nectar thickened liquid PHYSICAL EXAMINATION: VITAL SIGNS: Please see below. GENERAL: Pleasant and cooperative. No acute distress. HEENT: PERRL. Extraocular movements intact. Clear conjunctiva CARDIOVASCULAR: Regular rate and rhythm. No murmurs, rubs, or gallops LUNGS: Clear to auscultation bilaterally. No wheezes. No rhonchi ABDOMEN: Soft, nontender, nondistended. Positive bowel sounds. Normal active bowel sounds NEUROLOGICAL: Alert and oriented times three. Cranial nerves II through XII grossly intact. Sensation grossly intact EXTREMITIES: 5\5 strength bilateral upper extremities. 5\5 strength right lower extremity. 5/5 strength in left lower extremity. SKIN: sacral erythema LABORATORY DATA: Please see below. IMAGING:[Imaging documentation personally reviewed by record]. FUNCTIONAL STATUS: Premorbid: Independent with all activities of daily life as well as mobility On Admission: Mod-Max assist for bed mobility, functional transfers, dressing, toileting GOALS: Mod-I household distances ambulation with RW, functional transfers, dressing, toileting, supervision for bathing ASSESSMENT:80-year-old M with past medical history of Aortic stenosis with mechanical valve who presents status post hypoxic hypercapnic respiratory failure requiring ventilation and CHF exacerbation PLAN: 1. Rehab- PT/TO advance mobility and ADLs, strengthen/stretch/maintain ROM all 4 limbs -AIR CREW OFFICER- cookie swallow ordered for tomorrow, c/u puree and nectar for now 2. Neuro- hx of Parkinsons with Sinemet held during acute care stay contributing to mobility impairments, will resume -recent metabolic encephalopathy, avoid deliriogenic meds, and monitor for electrolye abnormalities 3. cardiac- mechanical aortic valve s/p heparin bridge, c/u coumadin goal INR 2.5-3.5, monitor for GI bleed -chronic diastolic CHF with recent exacerbation, c/u diuretic, renal following to assist -HTN c/u BP meds, medicine consulted to assist in overall management 4. Resp- s/p IV antibiotics for MSSA PNA, c/u breathing treatments -hx of COPD and BLANE, 02 ordered goal 88-92% 5. GI- hx of GI bleed, c/u sucralfate and omeprazole BID 6. DVT ppx- on warfarin 7. Pain-tylenol prn 8. renal- recent AMINA, resolved, however renal agrees to follow patient on ARU to monitor 8. Dispo- TBD POST ADMISSION PHYSICIAN EVALUATION: Medical and functional status: Description of medical status, medical assessment: As above. Rehabilitation diagnosis and current and prior cold morbid medical conditions as above. Risk of complications and plans to mitigate them as above. Description of functional status current status is as above. Prior status as above. Status compared to preadmission: There are no clinically significant differences between the patient's current status and the information described on the preadmission screening document. Treatment plan anticipated: Treatment plan is as described above. Required disciplines including physical therapy, occupational therapy, others as noted above. Intensity of services: 3 hours a day, 6 days a week. Special considerations: There are no specific special or safety considerations that would likely preclude immediate implementation of an intensive rehabilitation program or subsequently influence the plan of care ATTESTATION: Considering all the information above, it is my best judgment that this patient requires intensive rehabilitation therapy as described above and an inpatient hospital environment due to the complexity of nursing, medical, and rehabilitation needs required by the patient. Furthermore, this patient can reasonably be expected to participate in an benefit from an inpatient rehabilitation stay with an interdisciplinary team approach to the delivery of rehabilitation care under the direction and supervision of rehabilitation physician PROGNOSIS: good ESTIMATED LENGTH OF STAY:14-18 days. PROJECTED DISCHARGE DESTINATION: Home with family support and any durable medical equipment required to increase functional safety and mobility. TIME SPENT COUNSELING AND COORDINATING INITIAL CARE: Greater than 70 minutes. Vital Signs Vital Sign - Last 24 Hours 05/19/20 05/19/20 05/19/20 05/19/20 14:43 20:00 20:01 20:01 Temp 97.2 97.8 Pulse 55 57 73 74 Resp 17 18 17 16 B/P (MAP) 152/66 (94) 126/78 (94) Pulse Ox 93 96 O2 Delivery Room Air Room Air 05/20/20 06:06 Temp 98.0 Pulse 65 Resp 18 B/P (MAP) 150/72 (98) Pulse Ox 94 O2 Delivery Room Air Home Medications Scheduled Allopurinol (Zyloprim) 300 Mg Tab, 300 MG PO DAILY, (Reported) Atorvastatin Calcium (Atorvastatin Calcium) 20 Mg Tab, 20 MG PO QHS, (Reported) Bisoprolol Fumarate (Bisoprolol Fumarate) 5 Mg Tab, 5 MG PO QAM, (Reported) Calcium Carbonate/Vitamin D3 (Calcium 600-Vit D3 400 Tablet) 1 Tab Tab, 1 TAB PO DAILY, (Reported) Carbidopa/Levodopa (Sinemet 25-100 mg Tablet) 1 Each Tablet, 1 TAB PO TID, (Reported) Ferrous Sulfate (Ferrous Sulfate) 325 Mg Tab, 325 MG PO DAILY, (Reported) Folic Acid (Folic Acid) 1 Mg Tab, 1 MG PO QPM, (Reported) Multivitamins (Thera M Plus Tablet) 1 Tab Tab, 1 TAB PO DAILY, (Reported) Omeprazole (Omeprazole) 40 Mg Cap, 40 MG PO BID, (Reported) Polyethylene Glycol 3350 (Miralax) 1 Pow Pow, 1 DOSE PO DAILY, (Reported) Salmeterol/Fluticasone (Advair 250-50 Diskus) 14 Puff/Inhaler Aerp, 1 PUFF INH BID, (Reported) Spironolactone (Spironolactone) 25 Mg Tab, 25 MG PO DAILY, (Reported) Tiotropium [place] (Spiriva Respimat) 1.25 Mcg/Act Aer, 1.25 MCG INH DAILY, (Reported) Torsemide (Torsemide) 20 Mg Tablet, 20 MG PO DAILY Ubidecarenone (Co Q-10) 200 Mg Capsule, 200 MG PO DAILY, (Reported) Warfarin Sodium (Coumadin) 5 Mg Tab, 5 MG PO 4XWK, (Reported) SUN, YOAN, CANDY, SAT Warfarin Sodium (Warfarin Sodium) 7.5 Mg Tab, 7.5 MG PO 3XW, (Reported) MWF Scheduled PRN Albuterol Sulfate (Proair Hfa) 108 Mcg/Act Aer, 2 PUFF INH QID PRN for SHORTNESS OF BREATH, (Reported) Carboxymethylcellulose Sodium (Refresh Tears) 0.5 % Aramis, 1 DROP OS DAILY PRN for DRY EYES, (Reported) Fluticasone Propionate (Flonase Allergy Relief) 50 Mcg/Act Spr, 100 MCG NA DAILY PRN for NASAL CONGESTION, (Reported) Nitroglycerin (Nitroglycerin) 0.4 Mg Sub, 0.4 MG SL NITRO PRN for CHEST PAIN, (Reported) Allergies Coded Allergies: No Known Allergies (Unverified , 08/20/18) A-FIB/CHADSVASC A-FIB History Current/History of A-Fib/PAF?: Yes Current PO Anticoag Therapy: Yes BRIAN LOPEZ MD May 20, 2020 09:13
[2020-05-20] MEDS: TORSEMIDE 20 MG TAB PO SCH (09:14)
[2020-05-20] MEDS: SUCRALFATE 1 GM TAB PO SCH ×4 (09:14→21:13)
[2020-05-20] MEDS: FERROUS GLUCONATE 324 MG TAB PO SCH (09:14)
[2020-05-20] MEDS: bisoproloL fumarate 5 MG TAB PO SCH (09:14)
[2020-05-20] MEDS: DOCUSATE SODIUM 100MG CAPSULE PO SCH ×2 (09:14→21:13)
[2020-05-20] MEDS: MULTIVITAMINS/MINERALS THERAP 1 TAB PO SCH (09:14)
[2020-05-20] MEDS: FLUTICASONE PROP 0.05% NASAL SPRAY 16 GM (FLONASE) NARES SCH ×2 (09:16→21:12)
[2020-05-20 10:05] LABS: BASO # 0.1 10^3/uL (0.0-0.2); BASO % 1.2 % (0.0-1.0); EOS # 0.2 10^3/uL (0.0-0.5); EOS % 3.9 % (0.0-3.0); HEMATOCRIT 35.4 % (42.0-52.0); HEMOGLOBIN 11.2 g/dl (13.5-17.5); LYMPH # 0.6 10^3/uL (1.5-5.0); LYMPH % 10.9 % (24.0-44.0); MEAN CORPUSCULAR HEMOGLOBIN 33.1 pg (27.0-33.0); MEAN CORPUSCULAR HGB CONC 31.6 g/dl (32.0-36.5); MEAN CORPUSCULAR VOLUME 104.7 fl (80.0-96.0); MONO # 0.8 10^3/uL (0.0-0.8); MONO % 13.2 % (0.0-5.0); NEUTROPHILS # 4.1 10^3/uL (1.5-8.5); NEUTROPHILS % 70.3 % (36.0-66.0); PLATELET COUNT, AUTOMATED 228 10^3/uL (150-450); RED BLOOD COUNT 3.38 10^6/uL (4.30-6.10); WHITE BLOOD COUNT 5.9 10^3/uL (4.0-10.0)
[2020-05-20 10:22] LABS: INR 3.42; PROTHROMBIN TIME 35.3 SECONDS (12.5-14.3)
[2020-05-20 10:33] LABS: ALBUMIN 2.9 GM/DL (3.2-5.2); ALT/SGPT 15 U/L (12-78); BILIRUBIN,TOTAL 0.4 MG/DL (0.2-1.0); BLOOD UREA NITROGEN 17 MG/DL (7-18); CALCIUM LEVEL 9.2 MG/DL (8.8-10.2); CARBON DIOXIDE LEVEL 31 MEQ/L (21-32); CHLORIDE LEVEL 107 MEQ/L (98-107); CREATININE FOR GFR 1.04 MG/DL (0.70-1.30); GLOMERULAR FILTRATION RATE > 60.0 (>42); GLUCOSE, FASTING 125 MG/DL (70-100); POTASSIUM SERUM 3.9 MEQ/L (3.5-5.1); SODIUM LEVEL 142 MEQ/L (136-145); TOTAL PROTEIN 6.6 GM/DL (6.4-8.2)
[2020-05-20 14:00] VITALS: BP 167/73
--- NOTE | 2020-05-20 16:15 | IPNPDOC ---
Subjective Date Seen The patient was seen on 05/20/20. Subjective Chief Complaint/HPI Does not have any complaints this morning. No acute events overnight. No fever or chills. Alert and oriented x 3 Objective Physical Examination General Exam: Positive: Alert, Cooperative, No Acute Distress Eye Exam: Positive: PERRLA, Conjunctiva & lids normal, EOMI; Negative: Sclera icteric ENT Exam: Positive: Atraumatic, Mucous membr. moist/pink, Pharynx Normal Neck Exam: Positive: Supple; Negative: JVD, thyromegaly Chest Exam: Positive: Normal air movement, Other (some bibasal crackles. ) Heart Exam: Positive: Rate Normal, Irregular Rhythm, Normal S1, Normal S2, Murmurs; Negative: Rubs Abdomen Exam: Positive: Normal bowel sounds, Soft; Negative: Tenderness Extremity Exam: Negative: Clubbing, Cyanosis, Edema Neuro Exam: Positive: Normal Speech, Normal Tone Assessment /Plan Assessment 80-year-old male with history of mechanical aortic valve on chronic warfarin, hypertension, anemia, COPD, CAD, reflux, BLANE was brought in by ambulance after the patient was found unresponsive in his car by his after being up all night sleeping on his chair due to epistaxis and using Q-tips to stop the bleeding. Patient was found to be mumbling by EMS and incomprehensible. He had no tonic-clonic activity and remained confused and mumbling despite multiple Narcan's in the ER, CT of the head was negative for acute intracranial abnormality. Glucose was 121. Ammonia was normal at 15. He was afebrile chest x- ray was negative. He was admitted to the hospital on 04/29/20 for acute metabolic encephalopathy and found to have acute hypercarbic respiratory failure and decompensated congestive heart failure requiring intubation, mechanical ventilation, s/p extubation 05/02/20. Hospital course was complicated by MSSA pneumonia, Acute GIB , epistaxis, Hypernatremia and development of dysphagia. Patient is very weak and decompensated after prolonged hospitalization and is much below his baseline functional capacity. Patient was discharged to ARU to continue with Rehab. Generalized muscular deconditioning from prolonged hospitalization Gait instability. PT/OT as per ARU Dysphagia/ Aspiration on pureed diet and thickened liquids repeat swallow eval Chronic CHF with preserved EF patient in Afib during echo so diastolic function could not be determined. Appears to be Euvolemic at present. strict i/o, daily weights Restart Torsemide 20 mg daily Follow nephrology recommendations for further diuretics S/P Acute hypercarbic and hypoxic respiratory failure with acute Respiratory acidosis s/p intubation/extubation/mechanical ventilation due to COPD and BLANE with acute CHF Severe pulmonary hypertension with chronic right heart failure Discussed with Nephro will slowly restart diuretics. will restart on torsemide 20 mg daily. S/p MSSA Pneumonia finished Unasyn. GI bleed-In the setting of chronic warfarin for mechanical aortic valve. resolved back on ac with warfarin INR goal 2.5 to 3.5 Hypernatremia/Dehydration due to poor oral intake and overdiuresis resolved will restart diuretics slowly as needed. BLANE noncompliant w cpap chronic Hypertension bisoprolol. Hypothyroidism synthroid COPD, compensated off prednisone inhalers advair, spiriva and albuterol prn. CAD status post stent no acute issues statin and bisoprolol Parkinson's disease Sinemet. Acute urinary retention Now resolved. Did not need straight cath Gout/ hyperuricemia allopurinol. Acute on Chronic anemia Acute blood loss anemia from epistaxis and gi loss stable hemoglobin iron profile, vit b12 and folate levels do not show any deficiency. EGD and Colonoscopy done in 2017. Last seen Dr Silvana Rees in 2019 : Impression was Refractory normocytic to macrocytic anemia without nutritional deficiencies in the setting of chronic renal insufficiency, COPD, anticoagulation for mechanical heart valve, negative SPEP, and baseline erythropoietin 32 (elevated above reference, low with respect to possible MDS diagnosis). Restart iron and folic acid. Follow up with Hematology on discharge. Plan/VTE VTE Prophylaxis Ordered?: Yes VS, I&O, 24H, Fishbone Vital Signs/I&O Vital Signs Date Time Temp Pulse Resp B/P (MAP) Pulse Ox O2 Delivery O2 Flow Rate FiO2 05/20/20 06:06 98.0 65 18 150/72 (98) 94 Room Air I&O- Last 24 Hours up to 6 AM 05/20/20 06:00 Intake Total 315 ml Output Total 1100 ml Balance -785 ml ALEX MORENO MD May 20, 2020 08:21
[2020-05-20] MEDS ORDERED: WARFARIN SOD 4MG TAB PO SCH (17:00)
--- NOTE | 2020-05-20 18:40 | IPN ---
PROGRESS NOTE DATE: 05/20/2020 Mr. Roy is seen today in acute rehabilitation floor. He was transferred from medical floor to rehabilitation. He was followed for hypernatremia, acute kidney injury and nutrition needs, taking his feeds by mouth without any significant problems; however, remains on thickened liquids. He denies any nausea, vomiting, dyspnea or chest pain. His diuretics that were on hold are now gradually being resumed and Dr. Hall has already restarted torsemide 20 mg daily. I was requested to follow him for need for his diuretics, as he does have history of congestive heart failure and recent history of acute kidney injury and hypernatremia. PHYSICAL EXAMINATION: Patient is sitting in the chair and feels comfortable. He was talking to his on the phone. Temperature 98 degrees Fahrenheit, heart rate 65 per minute, respiratory rate 18 per minute, blood pressure 150/72 mmHg, oxygen saturation 94% on room air. HEAD: Atraumatic. NECK: Supple and jugular venous distention (JVD) not elevated sitting upright. LUNGS: Clear to auscultation. HEART SOUNDS: Regular. ABDOMEN: Soft and nontender. Bowel sounds are normal. EXTREMITIES: Without any cyanosis or clubbing. There is only trace extremity edema and he is wearing compression stockings. LABORATORY DATA: Today's laboratories show WBC 5.9, hemoglobin 11. 2, hematocrit 35.4, platelets 228. Sodium 142, potassium 3.9, chloride 107, CO2 31, BUN 17, creatinine 1.04. Total protein 6.6, albumin 2.8. His liver function tests (LFTs) are within normal limits. PROBLEMS: 1. Hypernatremia. His sodium level has remained normal although his diuretics have been resumed. Torsemide 20 mg daily is appropriate. Patient is on fluid restriction, which will be continued. 2. Diastolic congestive heart failure. His volume status is well-compensated at present and he is on torsemide 20 mg daily along with fluid restriction. No changes are needed at this time. 3. Acute kidney injury (AMINA). His kidney function has recovered and remains stable. Electrolytes are within normal range. All in all, from a medical standpoint and renal standpoint, patient is doing well and we will continue to follow him as needed.
[2020-05-20 20:00] VITALS: BP 144/74
[2020-05-20] MEDS: ATORVASTATIN 20 MG TAB PO SCH (21:13)
[2020-05-20] MEDS: SENNA 8.6 MG TAB (SENOKOT) PO SCH (21:13)
[2020-05-21 06:00] VITALS: BP 143/66
[2020-05-21] MEDS: FOLIC ACID 1 MG TAB PO SCH (07:45)
[2020-05-21] MEDS: FERROUS GLUCONATE 324 MG TAB PO SCH (07:45)
[2020-05-21] MEDS: CALCIUM/VITAMIN D 500 MG TAB PO SCH (07:45)
[2020-05-21] MEDS: SUCRALFATE 1 GM TAB PO SCH ×4 (07:45→20:57)
[2020-05-21] MEDS: bisoproloL fumarate 5 MG TAB PO SCH (07:45)
[2020-05-21] MEDS: TORSEMIDE 20 MG TAB PO SCH (07:45)
[2020-05-21] MEDS: MULTIVITAMINS/MINERALS THERAP 1 TAB PO SCH (07:45)
[2020-05-21] MEDS: allopurinoL 300 MG TAB PO SCH (07:45)
[2020-05-21] MEDS: OMEPRAZOLE 20 MG CAP PO SCH ×2 (07:45→20:58)
[2020-05-21] MEDS: REMEDY PHYTOPLEX Z-GUARD PASTE 113GM TUBE (FROM STOREROOM PRODUCT) TOP SCH ×3 (07:46→20:59)
[2020-05-21] MEDS: SINEMET 25-100 MG TAB PO SCH ×3 (07:46→20:58)
[2020-05-21] MEDS: FLUTICASONE PROP 0.05% NASAL SPRAY 16 GM (FLONASE) NARES SCH ×2 (07:46→20:58)
[2020-05-21] MEDS: DOCUSATE SODIUM 100MG CAPSULE PO SCH ×2 (07:46→20:57)
[2020-05-21 07:56] LABS: INR 3.02
[2020-05-21] MEDS: IPRATROPIUM 0.5MG/ALBUTEROL 2.5MG INH SOL UD 3ML (DUONEB) NEB SCH ×3 (08:00→19:45)
[2020-05-21] MEDS: ADVAIR HFA 230/21MCG INHALER INH SCH ×2 (08:51→19:44)
[2020-05-21] MEDS: TIOTROPIUM INHALER/CAPSULE (SPIRIVA) INH SCH (08:52)
--- NOTE | 2020-05-21 09:47 | IPNPDOC ---
PM&R Progress Note DATE OF SERVICE: May 21, 2020 [employer] Progress Note Subjective Patient seen in his room waiting for the cookie swallow. He reports he is feeling well overall. REVIEW OF SYSTEMS: The following is a completed review of systems and has been reviewed. Review of systems otherwise unremarkable. PAIN: Patient self reports no pain EYES: No recent vision changes EARS, NOSE, & THROAT: + dysphagia CARDIOVASCULAR: Denies chest pain or palpitations PULMONARY: Denies shortness of breath GASTROINTESTINAL: Denies constipation/diarrhea GENITOURINARY: denies dysuria MUSCULOSKELETAL: generalized weakness NEUROLOGICAL: +bilat UE tremor HEMATOLOGICAL: denies easy bruising SKIN: denies rash PSYCHIATRIC: Unremarkable All other review of systems found to be negative. PHYSICAL EXAMINATION: VITAL SIGNS: Please see below. GENERAL: Pleasant and cooperative. No acute distress. HEENT: PERRL. Extraocular movements intact. Clear conjunctiva CARDIOVASCULAR: Regular rate and rhythm. No murmurs, rubs, or gallops LUNGS: Clear to auscultation bilaterally. No wheezes. No rhonchi ABDOMEN: Soft, nontender, nondistended. Positive bowel sounds. Normal active bowel sounds NEUROLOGICAL: Alert and oriented times three. Cranial nerves II through XII grossly intact. Sensation grossly intact EXTREMITIES: 5\5 strength bilateral upper extremities. 5\5 strength right lower extremity. 5/5 strength in left lower extremity. SKIN: sacral erythema ASSESSMENT:80-year-old M with past medical history of Aortic stenosis with mechanical valve who presents status post hypoxic hypercapnic respiratory failu re requiring ventilation and CHF exacerbation PLAN: 1. 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 Neuro- hx of Parkinsons with Sinemet held during acute care stay contributing to mobility impairments, will resume -recent metabolic encephalopathy, avoid deliriogenic meds, and monitor for electrolye abnormalities 3. cardiac- mechanical aortic valve s/p heparin bridge, c/u coumadin goal INR 2.5-3.5, monitor for GI bleed -chronic diastolic CHF with recent exacerbation, c/u diuretic, renal following to assist -HTN c/u BP meds, medicine consulted to assist in overall management 4. Resp- s/p IV antibiotics for MSSA PNA, c/u breathing treatments -hx of COPD and BLANE, 02 ordered goal 88-92% 5. GI- hx of GI bleed, c/u sucralfate and omeprazole BID 6. DVT ppx- on warfarin 7. Pain-tylenol prn 8. renal- recent AMINA, resolved, however renal agrees to follow patient on ARU to monitor 8. Dispo- TBD Allergies Coded Allergies: No Known Allergies (Unverified , 08/20/18) Vital Signs Vital Signs Date Time Temp Pulse Resp B/P (MAP) Pulse Ox O2 Delivery O2 Flow Rate FiO2 05/21/20 07:45 72 143/66 05/21/20 06:00 97.1 18 96 Room Air Laboratory Data Labs 24H Laboratory Tests 2 05/21/20 07:05: Prothrombin Time 32.0H, Prothromb Time International Ratio 3.02 Current Medications Current Medications Current Medications Medications (Trade) Dose Ordered Sig/Yeyo Route PRN Reason Start Time Stop Time Status Last Admin Dose Admin Acetaminophen (Tylenol Tab) 650 mg Q4HP PRN PO fever/MILD PAIN (PS 1-4) 05/19/20 16:30 Albuterol/ Ipratropium (Duoneb (Ipr 0.5mg/Alb 2.5mg)) 3 ml RQID NEB 05/19/20 20:00 05/20/20 15:00 Allopurinol (Zyloprim) 300 mg DAILY PO 05/20/20 09:00 05/21/20 07:45 Atorvastatin Calcium (Lipitor) 20 mg QHS PO 05/19/20 21:00 05/20/20 21:13 Bisacodyl (Dulcolax Suppository) 10 mg DAILYPRN PRN OR CONSTIPATION 05/19/20 16:30 Bisoprolol Fumarate (Zebeta) 5 mg DAILY PO 05/20/20 09:00 05/21/20 07:45 Calcium/Vitamin D (Oscal D) 500 mg DAILY PO 05/20/20 09:00 05/21/20 07:45 Carbidopa/Levodopa (Sinemet 25/100) 1 tab TID PO 05/19/20 21:00 05/21/20 07:46 Docusate Sodium (Colace) 100 mg BID PO 05/19/20 21:00 05/20/20 21:13 Ferrous Gluconate (Fergon) 324 mg DAILY PO 05/20/20 09:00 05/21/20 07:45 Fluticasone Propionate (Flonase 0.05% Nasal [place]) 1 spray BID NARES 05/19/20 21:00 05/21/20 07:46 Folic Acid (Folic Acid) 1 mg DAILY PO 05/20/20 09:00 05/21/20 07:45 Multivitamins (Theragram-M) 1 tab DAILY PO 05/20/20 09:00 05/21/20 07:45 Nitroglycerin (Nitrostat (1/ 150)) 0.4 mg Q5MP PRN SL CHEST PAIN 05/19/20 16:30 Omeprazole (PriLOSEC) 40 mg BID PO 05/19/20 21:00 05/21/20 07:45 Salmeterol Xinafoate/ Fluticasone (Advair Hfa ) 2 puff BID INH 05/19/20 21:00 05/21/20 08:51 Senna (Senokot) 1 tab QHS PO 05/19/20 21:00 05/20/20 21:13 Sucralfate (Carafate) 1 gm ACHS PO 05/19/20 17:30 05/21/20 07:45 Tiotropium [place] (Spiriva Handihaler) 1 inhalation DAILY@08 INH 05/20/20 08:00 05/21/20 08:52 Torsemide (Demadex) 20 mg DAILY PO 05/20/20 09:00 05/21/20 07:45 Warfarin Sodium (Coumadin) 4 mg DAILY@17 PO 05/20/20 17:00 05/20/20 16:59 Warfarin Sodium (Coumadin) 6 mg DAILY@17 PO 05/19/20 17:00 05/20/20 11:43 DC 05/19/20 17:30 BRIAN LOPEZ MD May 21, 2020 09:47
[2020-05-21] MEDS: VANICREAM MOISTURIZING SKIN CREAM 113GM TUBE TOP SCH ×2 (13:30→20:59)
[2020-05-21 14:00] VITALS: BP 140/66
[2020-05-21] MEDS ORDERED: BARIUM SULFATE 700 MG TABLET (E-Z-DISK) As Ordered ONE (14:09)
[2020-05-21] MEDS ORDERED: VARIBAR PUDDING 40% w/v 230ML TUBE As Ordered ONE (14:09)
[2020-05-21] MEDS ORDERED: VARIBAR NECTAR 40% w/v 240ML SUSP BTL As Ordered ONE (14:09)
[2020-05-21] MEDS ORDERED: E-Z-PAQUE 96% w/w SUSP 176GM BTL As Ordered ONE (14:09)
--- NOTE | 2020-05-21 14:59 | REP ---
INDICATION: dysphagia. COMPARISON: None. TECHNIQUE: The procedure was performed by EDMOND Gonzales, under the direct supervision of Dr. Apodaca. The procedure was performed with Nela Powers from speech pathology present. 5 ml aliquots of thin, pudding, mixed fruit, soft food, nectar thick and pill consistency barium was administered. FINDINGS: No aspiration or penetration was visualized during the exam. The detailed report of this examination will be provided by speech pathology. IMPRESSION: Unremarkable cookie swallow, a detailed report will be provided by speech pathology. 2.0 minutes of fluoroscopy time was utilized for this procedure. Some fluoroscopic images are performed with last image hold technology. These images require no additional radiation <Electronically signed by Jessica Villanueva > 05/21/20 [id number] <Electronically signed by Tony Apodaca > 05/21/20 [id number]
[2020-05-21] MEDS: WARFARIN SOD 5MG TAB PO SCH (16:31)
[2020-05-21 20:00] VITALS: BP 138/70
[2020-05-21] MEDS: SENNA 8.6 MG TAB (SENOKOT) PO SCH (20:57)
[2020-05-21] MEDS: ATORVASTATIN 20 MG TAB PO SCH (20:58)
[2020-05-22 05:25] VITALS: BP 152/67
[2020-05-22] MEDS: ADVAIR HFA 230/21MCG INHALER INH SCH ×2 (07:19→21:41)
[2020-05-22] MEDS: TIOTROPIUM INHALER/CAPSULE (SPIRIVA) INH SCH (07:19)
[2020-05-22] MEDS: IPRATROPIUM 0.5MG/ALBUTEROL 2.5MG INH SOL UD 3ML (DUONEB) NEB SCH ×4 (07:22→20:00)
[2020-05-22 08:10] LABS: BASO # 0.1 10^3/uL (0.0-0.2); BASO % 0.8 % (0.0-1.0); EOS # 0.3 10^3/uL (0.0-0.5); EOS % 3.8 % (0.0-3.0); HEMOGLOBIN 10.6 g/dl (13.5-17.5); LYMPH # 0.7 10^3/uL (1.5-5.0); LYMPH % 10.2 % (24.0-44.0); MEAN CORPUSCULAR HEMOGLOBIN 32.9 pg (27.0-33.0); MEAN CORPUSCULAR HGB CONC 32.1 g/dl (32.0-36.5); MEAN CORPUSCULAR VOLUME 102.5 fl (80.0-96.0); MONO % 14.5 % (0.0-5.0); NEUTROPHILS # 4.6 10^3/uL (1.5-8.5); NEUTROPHILS % 69.8 % (36.0-66.0); PLATELET COUNT, AUTOMATED 177 10^3/uL (150-450); RED BLOOD COUNT 3.22 10^6/uL (4.30-6.10); WHITE BLOOD COUNT 6.6 10^3/uL (4.0-10.0)
[2020-05-22 08:25] LABS: BLOOD UREA NITROGEN 17 MG/DL (7-18); CALCIUM LEVEL 8.7 MG/DL (8.8-10.2); CARBON DIOXIDE LEVEL 27 MEQ/L (21-32); CHLORIDE LEVEL 103 MEQ/L (98-107); CREATININE FOR GFR 1.03 MG/DL (0.70-1.30); GLOMERULAR FILTRATION RATE > 60.0 (>42); GLUCOSE, FASTING 83 MG/DL (70-100); SODIUM LEVEL 140 MEQ/L (136-145)
[2020-05-22 08:31] LABS: INR 3.2; PROTHROMBIN TIME 33.5 SECONDS (12.5-14.3)
[2020-05-22] MEDS: CALCIUM/VITAMIN D 500 MG TAB PO SCH (08:49)
[2020-05-22] MEDS: TORSEMIDE 20 MG TAB PO SCH (08:49)
[2020-05-22] MEDS: FERROUS GLUCONATE 324 MG TAB PO SCH (08:49)
[2020-05-22] MEDS: DOCUSATE SODIUM 100MG CAPSULE PO SCH ×2 (08:49→20:37)
[2020-05-22] MEDS: SINEMET 25-100 MG TAB PO SCH ×3 (08:49→20:38)
[2020-05-22] MEDS: FOLIC ACID 1 MG TAB PO SCH (08:49)
[2020-05-22] MEDS: bisoproloL fumarate 5 MG TAB PO SCH (08:49)
[2020-05-22] MEDS: MULTIVITAMINS/MINERALS THERAP 1 TAB PO SCH (08:49)
[2020-05-22] MEDS: OMEPRAZOLE 20 MG CAP PO SCH ×2 (08:49→20:38)
[2020-05-22] MEDS: allopurinoL 300 MG TAB PO SCH (08:49)
[2020-05-22] MEDS: VANICREAM MOISTURIZING SKIN CREAM 113GM TUBE TOP SCH ×2 (08:50→20:39)
[2020-05-22] MEDS: FLUTICASONE PROP 0.05% NASAL SPRAY 16 GM (FLONASE) NARES SCH ×2 (08:50→20:38)
[2020-05-22] MEDS: SUCRALFATE 1 GM TAB PO SCH ×4 (08:52→20:38)
[2020-05-22] MEDS: REMEDY PHYTOPLEX Z-GUARD PASTE 113GM TUBE (FROM STOREROOM PRODUCT) TOP SCH ×3 (08:55→20:39)
[2020-05-22 14:00] VITALS: BP 134/78
[2020-05-22] MEDS: WARFARIN SOD 5MG TAB PO SCH (16:14)
[2020-05-22 20:00] VITALS: BP 141/63
[2020-05-22] MEDS: SENNA 8.6 MG TAB (SENOKOT) PO SCH (20:38)
[2020-05-22] MEDS: ATORVASTATIN 20 MG TAB PO SCH (20:38)
--- NOTE | 2020-05-22 23:22 | IPN ---
NEPHROLOGY PROGRESS NOTE DATE: 05/22/2020 SUBJECTIVE: The patient was seen and examined at the bedside today morning in the Rehab Unit. He is awake and alert. He denies any active complaints. He continues to be on low dose diuretics. Sodium level is within the acceptable range. He got a cookie swallow test done yesterday which was found to be normal. There was no aspiration noted. OBJECTIVE: VITAL SIGNS: Temperature is 98.7 degrees Fahrenheit, blood pressure 134/78, pulse is 74, respiratory rate of 18, saturating 94% on room air. INTAKE AND OUTPUT: There is no urine output recorded. He is having some incontinent voids. Weight in the bed scale is not available. PHYSICAL EXAMINATION: GENERAL APPEARANCE: The patient is awake, alert, oriented x2, laying in bed in no apparent distress. HEAD AND NECK: Extraocular muscles intact. Pupils are equally round and reactive to light. Mucous membranes are moist. Neck is supple. There is no jugular venous distention. CARDIOVASCULAR: S1, S2, regular rate. EXTREMITIES: Trace edema of the bilateral lower extremities. RESPIRATORY: Chest is clear to auscultation bilaterally. Bilaterally currently no rales or rhonchi. ABDOMEN: Soft, positive bowel sounds, nontender, no organomegaly. MUSCULOSKELETAL: No clubbing, no cyanosis. Pulses are 2+. LAB REVIEW: CBC showed a white blood cell count of 6.6, hemoglobin 10.6, platelet count 177. BMP showed sodium 140, potassium 4, chloride 103, bicarbonate 27, BUN 17, creatinine is 1.03. IMAGING: Cookie swallow test was done yesterday which showed unremarkable swallowing. CURRENT INPATIENT MEDICATIONS: The patient's medications were all reviewed by myself. She continues to be on Torsemide 20 mg p.o. daily. No other significant change in the medications today as compared with yesterday. ASSESSMENT AND PLAN: 1. Lower extremity edema it is controlled with the current dose of Torsemide. Volume status is optimized. 2. Hypernatremia it has resolved now. The patient does not have any difficulty with swallowing. His cookie swallow test was normal yesterday. 3. Chronic diastolic congestive heart failure - continue Torsemide 20 mg p.o. daily. Continue Bisoprolol 5 mg p.o. daily. 4. Chronic gout secondary to chronic kidney disease - continue Allopurinol 300 mg p.o. daily.
[2020-05-23 05:31] VITALS: BP 139/70
[2020-05-23] MEDS: IPRATROPIUM 0.5MG/ALBUTEROL 2.5MG INH SOL UD 3ML (DUONEB) NEB SCH ×4 (07:10→20:15)
[2020-05-23] MEDS: TIOTROPIUM INHALER/CAPSULE (SPIRIVA) INH SCH (07:10)
[2020-05-23] MEDS: ADVAIR HFA 230/21MCG INHALER INH SCH ×2 (07:10→20:15)
[2020-05-23] MEDS: CALCIUM/VITAMIN D 500 MG TAB PO SCH (07:34)
[2020-05-23] MEDS: MULTIVITAMINS/MINERALS THERAP 1 TAB PO SCH (07:34)
[2020-05-23] MEDS: OMEPRAZOLE 20 MG CAP PO SCH ×2 (07:34→20:46)
[2020-05-23] MEDS: allopurinoL 300 MG TAB PO SCH (07:34)
[2020-05-23] MEDS: FERROUS GLUCONATE 324 MG TAB PO SCH (07:35)
[2020-05-23] MEDS: SINEMET 25-100 MG TAB PO SCH ×3 (07:35→20:45)
[2020-05-23] MEDS: TORSEMIDE 20 MG TAB PO SCH (07:35)
[2020-05-23] MEDS: DOCUSATE SODIUM 100MG CAPSULE PO SCH ×2 (07:35→20:45)
[2020-05-23] MEDS: FOLIC ACID 1 MG TAB PO SCH (07:35)
[2020-05-23] MEDS: bisoproloL fumarate 5 MG TAB PO SCH (07:35)
[2020-05-23] MEDS: SUCRALFATE 1 GM TAB PO SCH ×4 (07:35→20:45)
[2020-05-23] MEDS: REMEDY PHYTOPLEX Z-GUARD PASTE 113GM TUBE (FROM STOREROOM PRODUCT) TOP SCH ×3 (07:37→20:46)
[2020-05-23] MEDS: VANICREAM MOISTURIZING SKIN CREAM 113GM TUBE TOP SCH ×2 (07:37→20:46)
[2020-05-23] MEDS: FLUTICASONE PROP 0.05% NASAL SPRAY 16 GM (FLONASE) NARES SCH ×2 (07:37→20:46)
[2020-05-23 08:17] LABS: INR 3.56; PROTHROMBIN TIME 36.4 SECONDS (12.5-14.3)
[2020-05-23 14:00] VITALS: BP 130/62
[2020-05-23] MEDS: WARFARIN SOD 4MG TAB PO SCH (16:32)
[2020-05-23 20:00] VITALS: BP 142/68
[2020-05-23] MEDS: ATORVASTATIN 20 MG TAB PO SCH (20:45)
[2020-05-23] MEDS: SENNA 8.6 MG TAB (SENOKOT) PO SCH (20:45)
[2020-05-24 06:00] VITALS: BP 135/71
[2020-05-24 07:05] LABS: BASO # 0.1 10^3/uL (0.0-0.2); BASO % 0.9 % (0.0-1.0); EOS # 0.2 10^3/uL (0.0-0.5); EOS % 2.9 % (0.0-3.0); HEMATOCRIT 31.4 % (42.0-52.0); HEMOGLOBIN 9.9 g/dl (13.5-17.5); LYMPH # 0.5 10^3/uL (1.5-5.0); LYMPH % 7.7 % (24.0-44.0); MEAN CORPUSCULAR HEMOGLOBIN 32.2 pg (27.0-33.0); MEAN CORPUSCULAR HGB CONC 31.5 g/dl (32.0-36.5); MEAN CORPUSCULAR VOLUME 102.3 fl (80.0-96.0); MONO # 0.8 10^3/uL (0.0-0.8); MONO % 11.5 % (0.0-5.0); NEUTROPHILS % 75.9 % (36.0-66.0); PLATELET COUNT, AUTOMATED 168 10^3/uL (150-450); RED BLOOD COUNT 3.07 10^6/uL (4.30-6.10); WHITE BLOOD COUNT 6.5 10^3/uL (4.0-10.0)
[2020-05-24 07:26] LABS: BLOOD UREA NITROGEN 15 MG/DL (7-18); CALCIUM LEVEL 8.4 MG/DL (8.8-10.2); CARBON DIOXIDE LEVEL 30 MEQ/L (21-32); CHLORIDE LEVEL 103 MEQ/L (98-107); CREATININE FOR GFR 1.11 MG/DL (0.70-1.30); GLOMERULAR FILTRATION RATE > 60.0 (>42); GLUCOSE, FASTING 91 MG/DL (70-100); POTASSIUM SERUM 3.6 MEQ/L (3.5-5.1); SODIUM LEVEL 141 MEQ/L (136-145)
[2020-05-24 07:33] LABS: INR 3.17; PROTHROMBIN TIME 33.2 SECONDS (12.5-14.3)
[2020-05-24] MEDS: IPRATROPIUM 0.5MG/ALBUTEROL 2.5MG INH SOL UD 3ML (DUONEB) NEB SCH ×4 (07:43→19:35)
[2020-05-24] MEDS: ADVAIR HFA 230/21MCG INHALER INH SCH ×2 (07:43→19:35)
[2020-05-24] MEDS: TIOTROPIUM INHALER/CAPSULE (SPIRIVA) INH SCH (07:43)
[2020-05-24] MEDS: SINEMET 25-100 MG TAB PO SCH ×3 (08:51→20:56)
[2020-05-24] MEDS: allopurinoL 300 MG TAB PO SCH (08:51)
[2020-05-24] MEDS: MULTIVITAMINS/MINERALS THERAP 1 TAB PO SCH (08:51)
[2020-05-24] MEDS: CALCIUM/VITAMIN D 500 MG TAB PO SCH (08:52)
[2020-05-24] MEDS: TORSEMIDE 20 MG TAB PO SCH (08:52)
[2020-05-24] MEDS: bisoproloL fumarate 5 MG TAB PO SCH (08:52)
[2020-05-24] MEDS: OMEPRAZOLE 20 MG CAP PO SCH ×2 (08:52→20:56)
[2020-05-24] MEDS: FERROUS GLUCONATE 324 MG TAB PO SCH (08:52)
[2020-05-24] MEDS: FOLIC ACID 1 MG TAB PO SCH (08:52)
[2020-05-24] MEDS: DOCUSATE SODIUM 100MG CAPSULE PO SCH ×2 (08:52→20:56)
[2020-05-24] MEDS: SUCRALFATE 1 GM TAB PO SCH ×4 (09:03→20:56)
[2020-05-24] MEDS: FLUTICASONE PROP 0.05% NASAL SPRAY 16 GM (FLONASE) NARES SCH ×2 (09:05→20:55)
[2020-05-24] MEDS: VANICREAM MOISTURIZING SKIN CREAM 113GM TUBE TOP SCH ×2 (09:17→20:56)
[2020-05-24] MEDS: REMEDY PHYTOPLEX Z-GUARD PASTE 113GM TUBE (FROM STOREROOM PRODUCT) TOP SCH ×3 (09:20→20:56)
--- NOTE | 2020-05-24 11:17 | IPNPDOC ---
PM&R Progress Note DATE OF SERVICE: May 24, 2020 Wardrobe Attendant Progress Note Subjective Patient seen in his room stating he feels much stronger and is hoping to go home soon. He denies any enw chest pain, worsening arm tremor, or difficulty ezra thing. REVIEW OF SYSTEMS: The following is a completed review of systems and has been reviewed. Review of systems otherwise unremarkable. PAIN: Patient self reports no pain EYES: No recent vision changes EARS, NOSE, & THROAT: + dysphagia CARDIOVASCULAR: Denies chest pain or palpitations PULMONARY: Denies shortness of breath GASTROINTESTINAL: Denies constipation/diarrhea GENITOURINARY: denies dysuria MUSCULOSKELETAL: generalized weakness NEUROLOGICAL: +bilat UE tremor HEMATOLOGICAL: denies easy bruising SKIN: denies rash PSYCHIATRIC: Unremarkable All other review of systems found to be negative. PHYSICAL EXAMINATION: VITAL SIGNS: Please see below. GENERAL: Pleasant and cooperative. No acute distress. HEENT: PERRL. Extraocular movements intact. Clear conjunctiva CARDIOVASCULAR: Regular rate and rhythm. No murmurs, rubs, or gallops LUNGS: Clear to auscultation bilaterally. No wheezes. No rhonchi ABDOMEN: Soft, nontender, nondistended. Positive bowel sounds. Normal active bowel sounds NEUROLOGICAL: Alert and oriented times three. Cranial nerves II through XII grossly intact. Sensation grossly intact EXTREMITIES: 5\5 strength bilateral upper extremities. 5\5 strength right lower extremity. 5/5 strength in left lower extremity. SKIN: sacral erythema ASSESSMENT:80-year-old M with past medical history of Aortic stenosis with mechanical valve who presents status post hypoxic hypercapnic respiratory failure requiring ventilation and CHF exacerbation PLAN: 1. 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 Neuro- hx of Parkinsons with Sinemet held during acute care stay contributing to mobility impairments, will resume -recent metabolic encephalopathy, avoid deliriogenic meds, and monitor for electrolye abnormalities 3. cardiac- mechanical aortic valve s/p heparin bridge, c/u Coumadin goal INR 2.5-3.5, monitor for GI bleed -chronic diastolic CHF with recent exacerbation, c/u diuretic, renal following to assist -HTN c/u BP meds, medicine consulted to assist in overall management 4. Resp- s/p IV antibiotics for MSSA PNA, c/u breathing treatments -hx of COPD and BLANE, 02 ordered goal 88-92% 5. GI- hx of GI bleed, c/u sucralfate and omeprazole BID 6. DVT ppx- on warfarin 7. Pain-tylenol prn 8. renal- recent AMINA, resolved, however renal agrees to follow patient on ARU to monitor 8. Dispo- TBD Allergies Coded Allergies: No Known Allergies (Unverified , 08/20/18) Vital Signs Vital Signs Date Time Temp Pulse Resp B/P (MAP) Pulse Ox O2 Delivery O2 Flow Rate FiO2 05/24/20 08:52 80 130/70 05/24/20 06:00 97.9 20 96 Room Air Laboratory Data CBC/BMP Laboratory Tests 05/24/20 06:29 Labs 24H Laboratory Tests 2 05/24/20 06:29: Immature Granulocyte % (Auto) 1.1, Neutrophils (%) (Auto) 75.9H, Lymphocytes (%) (Auto) 7.7L, Monocytes (%) (Auto) 11.5H, Eosinophils (%) (Auto) 2.9, Basophils (%) (Auto) 0.9, Neutrophils # (Auto) 5.0, Lymphocytes # (Auto) 0.5L, Monocytes # (Auto) 0.8, Eosinophils # (Auto) 0.2, Basophils # (Auto) 0.1, Nucleated Red Blood Cells % (auto) 0.0, Prothrombin Time 33.2H, Prothromb Time International Ratio 3.17, Anion Gap 8, Glomerular Filtration Rate > 60.0, Calcium Level 8.4L Current Medications Current Medications Current Medications Medications (Trade) Dose Ordered Sig/Yeyo Route PRN Reason Start Time Stop Time Status Last Admin Dose Admin Acetaminophen (Tylenol Tab) 650 mg Q4HP PRN PO fever/MILD PAIN (PS 1-4) 05/19/20 16:30 Albuterol/ Ipratropium (Duoneb (Ipr 0.5mg/Alb 2.5mg)) 3 ml RQID NEB 05/19/20 20:00 05/24/20 11:11 Allopurinol (Zyloprim) 300 mg DAILY PO 05/20/20 09:00 05/24/20 08:51 Atorvastatin Calcium (Lipitor) 20 mg QHS PO 05/19/20 21:00 05/23/20 20:45 Bisacodyl (Dulcolax Suppository) 10 mg DAILYPRN PRN [place] CONSTIPATION 05/19/20 16:30 Bisoprolol Fumarate (Zebeta) 5 mg DAILY PO 05/20/20 09:00 05/24/20 08:52 Calcium/Vitamin D (Oscal D) 500 mg DAILY PO 05/20/20 09:00 05/24/20 08:52 Carbidopa/Levodopa (Sinemet 25/100) 1 tab TID PO 05/19/20 21:00 05/24/20 08:51 Docusate Sodium (Colace) 100 mg BID PO 05/19/20 21:00 05/24/20 08:52 Emollient Cream (Vanicream) bilat arms and legs BID TOP 05/21/20 13:30 05/24/20 09:17 Ferrous Gluconate (Fergon) 324 mg DAILY PO 05/20/20 09:00 05/24/20 08:52 Fluticasone Propionate (Flonase 0.05% Nasal [place]) 1 spray BID NARES 05/19/20 21:00 05/24/20 09:05 Folic Acid (Folic Acid) 1 mg DAILY PO 05/20/20 09:00 05/24/20 08:52 Multivitamins (Theragram-M) 1 tab DAILY PO 05/20/20 09:00 05/24/20 08:51 Nitroglycerin (Nitrostat (1/ 150)) 0.4 mg Q5MP PRN SL CHEST PAIN 05/19/20 16:30 Omeprazole (PriLOSEC) 40 mg BID PO 05/19/20 21:00 05/24/20 08:52 Salmeterol Xinafoate/ Fluticasone (Advair Hfa 230/ 21) 2 puff BID INH 05/19/20 21:00 05/24/20 07:43 Senna (Senokot) 1 tab QHS PO 05/19/20 21:00 05/23/20 20:45 Sucralfate (Carafate) 1 gm ACHS PO 05/19/20 17:30 05/24/20 09:03 Tiotropium [place] (Spiriva Handihaler) 1 inhalation DAILY@08 INH 05/20/20 08:00 2/1/21 07:43 Torsemide (Demadex) 20 mg DAILY PO 05/20/20 09:00 05/24/20 08:52 Warfarin Sodium (Coumadin) 4 mg DAILY@17 PO 05/20/20 17:00 05/21/20 09:46 DC 05/20/20 16:59 Warfarin Sodium (Coumadin) 4 mg DAILY@17 PO 05/23/20 17:00 05/23/20 16:32 Warfarin Sodium (Coumadin) 5 mg DAILY@17 PO 05/21/20 17:00 05/23/20 09:54 DC 05/22/20 16:14 Warfarin Sodium (Coumadin) 6 mg DAILY@17 PO 05/19/20 17:00 05/20/20 11:43 DC 05/19/20 17:30 BRIAN LOPEZ MD May 24, 2020 11:17
--- NOTE | 2020-05-24 12:36 | IPN ---
PROGRESS NOTE DATE: 05/24/2020 SUBJECTIVE: Patient was seen and examined at the bedside today morning in the rehab unit. He was sitting up on the sofa. He denies any active complaints. He reports that his lower extremity edema is getting better. His labs were all reviewed. Renal function is stable. Electrolytes are within the acceptable range. OBJECTIVE: VITAL SIGNS: Temperature is 97.9 degrees Fahrenheit, blood pressure is 135/71, pulse is 80, respiratory 20, saturating 96% on room air. INTAKE AND OUTPUT: Urine output recorded as 1 liter yesterday, 275 ml so far today since overnight. Weight on the bed scale was 113.3 kg yesterday. PHYSICAL EXAMINATION: GENERAL: The patient is awake, alert and oriented x3, sitting up on the sofa, in no apparent distress. HEAD AND NECK: Extraocular movements are intact. Pupils equally round and reactive to light. Mucous membranes are moist. Neck is supple. There is no JVD. CARDIOVASCULAR: S1 and S2, regular rate. There is 1+ edema of the bilateral lower extremities up to mid garcia. RESPIRATORY: Chest is clear to auscultation bilaterally. Bilateral equal air entry. No rales or rhonchi. ABDOMEN: Soft, positive bowel sounds. Nontender. No organomegaly. MUSCULOSKELETAL: No clubbing or cyanosis. Pulses are 2+. LABORATORY DATA: CBC showed a WBC of 6.5, hemoglobin of 9.9, platelets of 168,000. BMP showed a sodium of 141, potassium 3.6, chloride 103, bicarbonate 30, BUN 15, creatinine is 1.1. CURRENT INPATIENT MEDICATIONS: The patient's medications were all reviewed by myself. He continues to be on torsemide 20 mg p.o. daily, no other significant change in the medications today as compared with yesterday. ASSESSMENT AND PLAN: 1. Lower extremity edema. It is stable and improving with torsemide 20 mg p.o. daily, continue current dose. 2. Chronic diastolic congestive heart failure, volume status is optimized with torsemide as mentioned above. Continue current dose of Bisoprolol 5 mg daily. 3. Chronic kidney disease Stage II. Renal function is stable. Creatinine has been fluctuating between 1 to 1.1. 4. Disposition: The patient's renal function and electrolytes are within the acceptable range. Nephrology Service is going to sign out off at this moment. Patient will need to follow with Nephrology Office after discharge from the hospital. Please call Nephrology for any help in the management of this patient during this hospitalization.
[2020-05-24 14:00] VITALS: BP 150/65
[2020-05-24] MEDS: WARFARIN SOD 4MG TAB PO SCH (17:20)
[2020-05-24 20:00] VITALS: BP 145/66
[2020-05-24] MEDS: SENNA 8.6 MG TAB (SENOKOT) PO SCH (20:55)
[2020-05-24] MEDS: ATORVASTATIN 20 MG TAB PO SCH (20:55)
[2020-05-25 06:00] VITALS: BP 143/56
[2020-05-25 07:26] LABS: INR 2.62; PROTHROMBIN TIME 28.6 SECONDS (12.5-14.3)
[2020-05-25] MEDS: ADVAIR HFA 230/21MCG INHALER INH SCH ×2 (07:40→19:57)
[2020-05-25] MEDS: IPRATROPIUM 0.5MG/ALBUTEROL 2.5MG INH SOL UD 3ML (DUONEB) NEB SCH ×4 (07:40→19:57)
[2020-05-25] MEDS: TIOTROPIUM INHALER/CAPSULE (SPIRIVA) INH SCH (07:40)
[2020-05-25] MEDS: MULTIVITAMINS/MINERALS THERAP 1 TAB PO SCH (08:53)
[2020-05-25] MEDS: TORSEMIDE 20 MG TAB PO SCH ×3 (08:53→20:38)
[2020-05-25] MEDS: FERROUS GLUCONATE 324 MG TAB PO SCH (08:53)
[2020-05-25] MEDS: CALCIUM/VITAMIN D 500 MG TAB PO SCH (08:53)
[2020-05-25] MEDS: allopurinoL 300 MG TAB PO SCH (08:53)
[2020-05-25] MEDS: OMEPRAZOLE 20 MG CAP PO SCH ×2 (08:53→20:38)
[2020-05-25] MEDS: SINEMET 25-100 MG TAB PO SCH ×3 (08:53→20:37)
[2020-05-25] MEDS: FOLIC ACID 1 MG TAB PO SCH (08:53)
[2020-05-25] MEDS: FLUTICASONE PROP 0.05% NASAL SPRAY 16 GM (FLONASE) NARES SCH ×2 (08:54→20:39)
[2020-05-25] MEDS: bisoproloL fumarate 5 MG TAB PO SCH (08:54)
[2020-05-25] MEDS: REMEDY PHYTOPLEX Z-GUARD PASTE 113GM TUBE (FROM STOREROOM PRODUCT) TOP SCH ×3 (08:55→20:39)
[2020-05-25] MEDS: VANICREAM MOISTURIZING SKIN CREAM 113GM TUBE TOP SCH ×2 (08:56→20:39)
[2020-05-25] MEDS: DOCUSATE SODIUM 100MG CAPSULE PO SCH ×2 (08:58→20:38)
[2020-05-25] MEDS: SUCRALFATE 1 GM TAB PO SCH ×4 (09:03→20:37)
--- NOTE | 2020-05-25 10:32 | IPNPDOC ---
PM&R Progress Note DATE OF SERVICE: May 25, 2020 Patient Care Technician Progress Note Subjective Patient seen walking in therapy stating he feels well and notices his legs are more swollen. REVIEW OF SYSTEMS: The following is a completed review of systems and has been reviewed. Review of systems otherwise unremarkable. PAIN: Patient self reports no pain EYES: No recent vision changes EARS, NOSE, & THROAT: + dysphagia CARDIOVASCULAR: Denies chest pain or palpitations PULMONARY: Denies shortness of breath GASTROINTESTINAL: Denies constipation/diarrhea GENITOURINARY: denies dysuria MUSCULOSKELETAL: generalized weakness NEUROLOGICAL: +bilat UE tremor HEMATOLOGICAL: denies easy bruising SKIN: denies rash PSYCHIATRIC: Unremarkable All other review of systems found to be negative. PHYSICAL EXAMINATION: VITAL SIGNS: Please see below. GENERAL: Pleasant and cooperative. No acute distress. HEENT: PERRL. Extraocular movements intact. Clear conjunctiva CARDIOVASCULAR: Regular rate and rhythm. No murmurs, rubs, or gallops LUNGS: Clear to auscultation bilaterally. No wheezes. No rhonchi ABDOMEN: Soft, nontender, nondistended. Positive bowel sounds. Normal active bowel sounds NEUROLOGICAL: Alert and oriented times three. Cranial nerves II through XII grossly intact. Sensation grossly intact EXTREMITIES: 5\5 strength bilateral upper extremities. 5\5 strength right lower extremity. 5/5 strength in left lower extremity. bilat LE edema L>R SKIN: sacral erythema ASSESSMENT:80-year-old M with past medical history of Aortic stenosis with mechanical valve who presents status post hypoxic hypercapnic respiratory failure requiring ventilation and CHF exacerbation PLAN: 1. 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 Neuro- hx of Parkinsons with Sinemet held during acute care stay contributing to mobility impairments, will resume -recent metabolic encephalopathy, avoid deliriogenic meds, and monitor for electrolyte abnormalities 3. cardiac- mechanical aortic valve s/p heparin bridge, c/u Coumadin goal INR 2.5-3.5, monitor for GI bleed -chronic diastolic CHF with recent exacerbation, c/u diuretic will increase torsemide to 20 mg BID for worsening LE edema and fluid restrict with daily weights, renal following to assist -HTN c/u BP meds, medicine consulted to assist in overall management 4. Resp- s/p IV antibiotics for MSSA PNA, c/u breathing treatments -hx of COPD and BLANE, 02 ordered goal 88-92% 5. GI- hx of GI bleed, c/u sucralfate and omeprazole BID 6. DVT ppx- on warfarin -will order dopplers for bilat LE swelling 7. Pain-tylenol prn 8. renal- recent AMINA, resolved, however renal agrees to follow patient on ARU to monitor 8. Dispo- TBD Allergies Coded Allergies: No Known Allergies (Unverified , 08/20/18) Vital Signs Vital Signs Date Time Temp Pulse Resp B/P (MAP) Pulse Ox O2 Delivery O2 Flow Rate FiO2 05/25/20 08:54 80 140/60 05/25/20 06:00 98.0 18 96 Room Air Laboratory Data Labs 24H Laboratory Tests 2 05/25/20 06:58: Prothrombin Time 28.6H, Prothromb Time International Ratio 2.62 Current Medications Current Medications Current Medications Medications (Trade) Dose Ordered Sig/Yeyo Route PRN Reason Start Time Stop Time Status Last Admin Dose Admin Acetaminophen (Tylenol Tab) 650 mg Q4HP PRN PO fever/MILD PAIN (PS 1-4) 05/19/20 16:30 Albuterol/ Ipratropium (Duoneb (Ipr 0.5mg/Alb 2.5mg)) 3 ml RQID NEB 05/19/20 20:00 05/24/20 16:11 Allopurinol (Zyloprim) 300 mg DAILY PO 05/20/20 09:00 05/25/20 08:53 Atorvastatin Calcium (Lipitor) 20 mg QHS PO 05/19/20 21:00 05/24/20 20:55 Bisacodyl (Dulcolax Suppository) 10 mg DAILYPRN PRN [place] CONSTIPATION 05/19/20 16:30 Bisoprolol Fumarate (Zebeta) 5 mg DAILY PO 05/20/20 09:00 05/25/20 08:54 Calcium/Vitamin D (Oscal D) 500 mg DAILY PO 05/20/20 09:00 05/25/20 08:53 Carbidopa/Levodopa (Sinemet 25/100) 1 tab TID PO 05/19/20 21:00 05/25/20 08:53 Docusate Sodium (Colace) 100 mg BID PO 05/19/20 21:00 05/24/20 20:56 Emollient Cream (Vanicream) bilat arms and legs BID TOP 05/21/20 13:30 05/25/20 08:56 Ferrous Gluconate (Fergon) 324 mg DAILY PO 05/20/20 09:00 05/25/20 08:53 Fluticasone Propionate (Flonase 0.05% Nasal [place]) 1 spray BID NARES 05/19/20 21:00 05/25/20 08:54 Folic Acid (Folic Acid) 1 mg DAILY PO 05/20/20 09:00 05/25/20 08:53 Multivitamins (Theragram-M) 1 tab DAILY PO 05/20/20 09:00 05/25/20 08:53 Nitroglycerin (Nitrostat (1/ 150)) 0.4 mg Q5MP PRN SL CHEST PAIN 05/19/20 16:30 Omeprazole (PriLOSEC) 40 mg BID PO 05/19/20 21:00 05/25/20 08:53 Salmeterol Xinafoate/ Fluticasone (Advair Hfa / ) 2 puff BID INH 05/19/20 21:00 05/25/20 07:40 Senna (Senokot) 1 tab QHS PO 05/19/20 21:00 05/24/20 20:55 Sucralfate (Carafate) 1 gm ACHS PO 05/19/20 17:30 05/25/20 09:03 Tiotropium [place] (Spiriva Handihaler) 1 inhalation DAILY@08 INH 05/20/20 08:00 05/25/20 07:40 Torsemide (Demadex) 20 mg BID PO 05/25/20 17:30 UNV Torsemide (Demadex) 20 mg DAILY PO 05/20/20 09:00 05/25/20 10:29 DC 05/25/20 08:53 Warfarin Sodium (Coumadin) 4 mg DAILY@17 PO 05/20/20 17:00 05/21/20 09:46 DC 05/20/20 16:59 Warfarin Sodium (Coumadin) 4 mg DAILY@17 PO 05/23/20 17:00 05/25/20 09:36 DC 05/24/20 17:20 Warfarin Sodium (Coumadin) 5 mg DAILY@17 PO 05/21/20 17:00 05/23/20 09:54 DC 05/22/20 16:14 Warfarin Sodium (Coumadin) 5 mg DAILY@17 PO 05/25/20 17:00 Warfarin Sodium (Coumadin) 6 mg DAILY@17 PO 05/19/20 17:00 05/20/20 11:43 DC 05/19/20 17:30 BRIAN LOPEZ MD May 25, 2020 10:32
[2020-05-25 14:00] VITALS: BP 142/60
--- NOTE | 2020-05-25 16:38 | REP ---
INDICATION: swelling COMPARISON: None. TECHNIQUE: Real time compression and duplex Doppler interrogation of the bilateral lower extremity deep venous system is performed. FINDINGS: Bilaterally, the common femoral, superficial femoral and popliteal veins are fully compressible with transducer pressure and demonstrate normal spontaneous and phasic flow, without evidence of deep venous thrombosis. IMPRESSION: No evidence of deep venous thrombosis of the bilateral lower extremity femoral popliteal venous system. <Electronically signed by Tanmay Peñaloza > 05/25/20 1021
[2020-05-25] MEDS ORDERED: WARFARIN SOD 5MG TAB PO SCH (17:00)
[2020-05-25 20:00] VITALS: BP 146/67
[2020-05-25] MEDS: ATORVASTATIN 20 MG TAB PO SCH (20:38)
[2020-05-25] MEDS: SENNA 8.6 MG TAB (SENOKOT) PO SCH (20:38)
[2020-05-26 06:00] VITALS: BP 140/72
[2020-05-26 07:22] LABS: BASO # 0.1 10^3/uL (0.0-0.2); BASO % 0.8 % (0.0-1.0); EOS # 0.2 10^3/uL (0.0-0.5); EOS % 3.1 % (0.0-3.0); HEMATOCRIT 32.5 % (42.0-52.0); HEMOGLOBIN 10.4 g/dl (13.5-17.5); LYMPH # 0.6 10^3/uL (1.5-5.0); LYMPH % 9.5 % (24.0-44.0); MEAN CORPUSCULAR HEMOGLOBIN 32.8 pg (27.0-33.0); MEAN CORPUSCULAR VOLUME 102.5 fl (80.0-96.0); MONO # 0.7 10^3/uL (0.0-0.8); MONO % 11.4 % (0.0-5.0); NEUTROPHILS # 4.7 10^3/uL (1.5-8.5); NEUTROPHILS % 73.6 % (36.0-66.0); PLATELET COUNT, AUTOMATED 165 10^3/uL (150-450); RED BLOOD COUNT 3.17 10^6/uL (4.30-6.10); WHITE BLOOD COUNT 6.4 10^3/uL (4.0-10.0)
[2020-05-26 07:32] LABS: INR 2.32
[2020-05-26] MEDS: TIOTROPIUM INHALER/CAPSULE (SPIRIVA) INH SCH (07:32)
[2020-05-26] MEDS: ADVAIR HFA 230/21MCG INHALER INH SCH ×2 (07:32→21:50)
[2020-05-26] MEDS: IPRATROPIUM 0.5MG/ALBUTEROL 2.5MG INH SOL UD 3ML (DUONEB) NEB SCH ×4 (07:32→21:45)
[2020-05-26 07:48] LABS: BLOOD UREA NITROGEN 15 MG/DL (7-18); CALCIUM LEVEL 8.7 MG/DL (8.8-10.2); CARBON DIOXIDE LEVEL 32 MEQ/L (21-32); CHLORIDE LEVEL 103 MEQ/L (98-107); CREATININE FOR GFR 1.09 MG/DL (0.70-1.30); GLOMERULAR FILTRATION RATE > 60.0 (>42); GLUCOSE, FASTING 92 MG/DL (70-100); POTASSIUM SERUM 3.3 MEQ/L (3.5-5.1); SODIUM LEVEL 143 MEQ/L (136-145)
[2020-05-26] MEDS: CALCIUM/VITAMIN D 500 MG TAB PO SCH (08:17)
[2020-05-26] MEDS: FERROUS GLUCONATE 324 MG TAB PO SCH (08:17)
[2020-05-26] MEDS: SUCRALFATE 1 GM TAB PO SCH ×4 (08:17→21:16)
[2020-05-26] MEDS: allopurinoL 300 MG TAB PO SCH (08:17)
[2020-05-26] MEDS: SINEMET 25-100 MG TAB PO SCH ×3 (08:17→21:16)
[2020-05-26] MEDS: TORSEMIDE 20 MG TAB PO SCH ×2 (08:17→16:37)
[2020-05-26] MEDS: FOLIC ACID 1 MG TAB PO SCH (08:17)
[2020-05-26] MEDS: bisoproloL fumarate 5 MG TAB PO SCH (08:17)
[2020-05-26] MEDS: OMEPRAZOLE 20 MG CAP PO SCH ×2 (08:17→21:16)
[2020-05-26] MEDS: MULTIVITAMINS/MINERALS THERAP 1 TAB PO SCH (08:17)
[2020-05-26] MEDS: DOCUSATE SODIUM 100MG CAPSULE PO SCH ×2 (08:18→21:16)
[2020-05-26] MEDS: FLUTICASONE PROP 0.05% NASAL SPRAY 16 GM (FLONASE) NARES SCH ×2 (08:18→21:00)
[2020-05-26] MEDS: REMEDY PHYTOPLEX Z-GUARD PASTE 113GM TUBE (FROM STOREROOM PRODUCT) TOP SCH ×3 (08:18→21:00)
[2020-05-26] MEDS: VANICREAM MOISTURIZING SKIN CREAM 113GM TUBE TOP SCH ×2 (08:19→21:00)
[2020-05-26] MEDS ORDERED: POTASSIUM CHLORIDE 10 MEQ SR TABLET PO ONE (09:15)
[2020-05-26 14:00] VITALS: BP 135/76
--- NOTE | 2020-05-26 15:17 | IPNPDOC ---
PM&R Progress Note DATE OF SERVICE: May 26, 2020 Psych Tech Progress Note Subjective Patient seen in his room with his following family training and they both feel comfortable with him going home Sunday. REVIEW OF SYSTEMS: The following is a completed review of systems and has been reviewed. Review of systems otherwise unremarkable. PAIN: Patient self reports no pain EYES: No recent vision changes EARS, NOSE, & THROAT: + dysphagia CARDIOVASCULAR: Denies chest pain or palpitations PULMONARY: Denies shortness of breath GASTROINTESTINAL: Denies constipation/diarrhea GENITOURINARY: denies dysuria MUSCULOSKELETAL: generalized weakness NEUROLOGICAL: +bilat UE tremor HEMATOLOGICAL: denies easy bruising SKIN: denies rash PSYCHIATRIC: Unremarkable All other review of systems found to be negative. PHYSICAL EXAMINATION: VITAL SIGNS: Please see below. GENERAL: Pleasant and cooperative. No acute distress. HEENT: PERRL. Extraocular movements intact. Clear conjunctiva CARDIOVASCULAR: Regular rate and rhythm. No murmurs, rubs, or gallops LUNGS: Clear to auscultation bilaterally. No wheezes. No rhonchi ABDOMEN: Soft, nontender, nondistended. Positive bowel sounds. Normal active bowel sounds NEUROLOGICAL: Alert and oriented times three. Cranial nerves II through XII grossly intact. Sensation grossly intact EXTREMITIES: 5\5 strength bilateral upper extremities. 5\5 strength right lower extremity. 5/5 strength in left lower extremity. bilat LE edema L>R (improving) SKIN: sacral erythema ASSESSMENT:80-year-old M with past medical history of Aortic stenosis with mechanical valve who presents status post hypoxic hypercapnic respiratory failure requiring ventilation and CHF exacerbation PLAN: 1. 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 Neuro- hx of Parkinsons with Sinemet held during acute care stay contributing to mobility impairments, will resume -recent metabolic encephalopathy, avoid deliriogenic meds, and monitor for electrolyte abnormalities 3. cardiac- mechanical aortic valve s/p heparin bridge, c/u Coumadin goal INR 2.5-3.5, monitor for GI bleed -chronic diastolic CHF with recent exacerbation, c/u diuretic torsemide to 20 mg BID for worsening LE edema and fluid restrict with daily weights, renal following to assist- edema improving -HTN c/u BP meds, medicine consulted to assist in overall management 4. Resp- s/p IV antibiotics for MSSA PNA, c/u breathing treatments -hx of COPD and BLANE, 02 ordered goal 88-92% 5. GI- hx of GI bleed, c/u sucralfate and omeprazole BID 6. DVT ppx- on warfarin -dopplers negative, edema improving 7. Pain-tylenol prn 8. renal- recent AMINA, resolved, fu with renal outpatient 8. Dispo- 05-28-20 to home, progressing towards goals Allergies Coded Allergies: No Known Allergies (Unverified , 08/20/18) Vital Signs Vital Signs Date Time Temp Pulse Resp B/P (MAP) Pulse Ox O2 Delivery O2 Flow Rate FiO2 05/26/20 14:00 98.2 87 19 135/76 (95) 95 Room Air Laboratory Data CBC/BMP Laboratory Tests 05/26/20 06:41 Labs 24H Laboratory Tests 2 05/26/20 06:41: Immature Granulocyte % (Auto) 1.6, Neutrophils (%) (Auto) 73.6H, Lymphocytes (%) (Auto) 9.5L, Monocytes (%) (Auto) 11.4H, Eosinophils (%) (Auto) 3.1H, Basophils (%) (Auto) 0.8, Neutrophils # (Auto) 4.7, Lymphocytes # (Auto) 0.6L, Monocytes # (Auto) 0.7, Eosinophils # (Auto) 0.2, Basophils # (Auto) 0.1, Nucleated Red Blood Cells % (auto) 0.0, Prothrombin Time 26.0H, Prothromb Time International Ratio 2.32, Anion Gap 8, Glomerular Filtration Rate > 60.0, Calcium Level 8.7L Current Medications Current Medications Current Medications Medications (Trade) Dose Ordered Sig/Yeyo Route PRN Reason Start Time Stop Time Status Last Admin Dose Admin Acetaminophen (Tylenol Tab) 650 mg Q4HP PRN PO fever/MILD PAIN (PS 1-4) 05/19/20 16:30 Albuterol/ Ipratropium (Duoneb (Ipr 0.5mg/Alb 2.5mg)) 3 ml RQID NEB 05/19/20 20:00 05/26/20 14:34 Allopurinol (Zyloprim) 300 mg DAILY PO 05/20/20 09:00 05/26/20 08:17 Atorvastatin Calcium (Lipitor) 20 mg QHS PO 05/19/20 21:00 05/25/20 20:38 Bisacodyl (Dulcolax Suppository) 10 mg DAILYPRN PRN [place] CONSTIPATION 05/19/20 16:30 Bisoprolol Fumarate (Zebeta) 5 mg DAILY PO 05/20/20 09:00 05/26/20 08:17 Calcium/Vitamin D (Oscal D) 500 mg DAILY PO 05/20/20 09:00 05/26/20 08:17 Carbidopa/Levodopa (Sinemet 25/100) 1 tab TID PO 05/19/20 21:00 05/26/20 08:17 Docusate Sodium (Colace) 100 mg BID PO 05/19/20 21:00 05/25/20 20:38 Emollient Cream (Vanicream) bilat arms and legs BID TOP 05/21/20 13:30 05/26/20 08:19 Ferrous Gluconate (Fergon) 324 mg DAILY PO 05/20/20 09:00 05/26/20 08:17 Fluticasone Propionate (Flonase 0.05% Nasal [place]) 1 spray BID NARES 05/19/20 21:00 05/26/20 08:18 Folic Acid (Folic Acid) 1 mg DAILY PO 05/20/20 09:00 05/26/20 08:17 Multivitamins (Theragram-M) 1 tab DAILY PO 05/20/20 09:00 05/26/20 08:17 Nitroglycerin (Nitrostat (1/ 150)) 0.4 mg Q5MP PRN SL CHEST PAIN 05/19/20 16:30 Omeprazole (PriLOSEC) 40 mg BID PO 05/19/20 21:00 05/26/20 08:17 Potassium Chloride (Micro-K Extencaps) 10 meq DAILY PO 05/27/20 09:00 Salmeterol Xinafoate/ Fluticasone (Advair Hfa ) 2 puff BID INH 05/19/20 21:00 05/26/20 07:32 Senna (Senokot) 1 tab QHS PO 05/19/20 21:00 05/25/20 20:38 Sucralfate (Carafate) 1 gm ACHS PO 05/19/20 17:30 05/26/20 12:19 Tiotropium [place] (Spiriva Handihaler) 1 inhalation DAILY@08 INH 05/20/20 08:00 05/26/20 07:32 Torsemide (Demadex) 20 mg BID PO 05/25/20 17:30 05/26/20 00:49 DC 05/25/20 20:38 Torsemide (Demadex) 20 mg BID@0730,1730 PO 05/26/20 07:30 05/26/20 08:17 Torsemide (Demadex) 20 mg DAILY PO 05/20/20 09:00 05/25/20 10:29 DC 05/25/20 08:53 Warfarin Sodium (Coumadin) 4 mg DAILY@17 PO 05/20/20 17:00 05/21/20 09:46 DC 05/20/20 16:59 Warfarin Sodium (Coumadin) 4 mg DAILY@17 PO 05/23/20 17:00 05/25/20 09:36 DC 05/24/20 17:20 Warfarin Sodium (Coumadin) 5 mg DAILY@17 PO 05/21/20 17:00 05/23/20 09:54 DC 05/22/20 16:14 Warfarin Sodium (Coumadin) 5 mg DAILY@17 PO 05/25/20 17:00 05/26/20 09:08 DC 05/25/20 16:22 Warfarin Sodium (Coumadin) 6 mg DAILY@17 PO 05/19/20 17:00 05/20/20 11:43 DC 05/19/20 17:30 Warfarin Sodium (Coumadin) 6 mg DAILY@17 PO 05/26/20 17:00 BRIAN LOPEZ MD May 26, 2020 15:17
[2020-05-26] MEDS: WARFARIN SOD 3MG TAB PO SCH (16:37)
[2020-05-26 20:00] VITALS: BP 126/60
[2020-05-26] MEDS: SENNA 8.6 MG TAB (SENOKOT) PO SCH (21:16)
[2020-05-26] MEDS: ATORVASTATIN 20 MG TAB PO SCH (21:16)
[2020-05-27 05:12] VITALS: BP 155/70
[2020-05-27 06:59] LABS: INR 2.53; PROTHROMBIN TIME 27.8 SECONDS (12.5-14.3)
[2020-05-27 07:07] LABS: BLOOD UREA NITROGEN 16 MG/DL (7-18); CALCIUM LEVEL 9.1 MG/DL (8.8-10.2); CARBON DIOXIDE LEVEL 34 MEQ/L (21-32); CHLORIDE LEVEL 101 MEQ/L (98-107); CREATININE FOR GFR 1.19 MG/DL (0.70-1.30); GLOMERULAR FILTRATION RATE > 60.0 (>42); GLUCOSE, FASTING 95 MG/DL (70-100); POTASSIUM SERUM 3.3 MEQ/L (3.5-5.1); SODIUM LEVEL 139 MEQ/L (136-145)
[2020-05-27] MEDS: FERROUS GLUCONATE 324 MG TAB PO SCH (08:44)
[2020-05-27] MEDS: SUCRALFATE 1 GM TAB PO SCH ×4 (08:44→20:23)
[2020-05-27] MEDS: SINEMET 25-100 MG TAB PO SCH ×3 (08:44→20:23)
[2020-05-27] MEDS: MULTIVITAMINS/MINERALS THERAP 1 TAB PO SCH (08:44)
[2020-05-27] MEDS: CALCIUM/VITAMIN D 500 MG TAB PO SCH (08:44)
[2020-05-27] MEDS: bisoproloL fumarate 5 MG TAB PO SCH (08:44)
[2020-05-27] MEDS: FOLIC ACID 1 MG TAB PO SCH (08:44)
[2020-05-27] MEDS: OMEPRAZOLE 20 MG CAP PO SCH ×2 (08:44→20:23)
[2020-05-27] MEDS: FLUTICASONE PROP 0.05% NASAL SPRAY 16 GM (FLONASE) NARES SCH ×2 (08:45→20:23)
[2020-05-27] MEDS: REMEDY PHYTOPLEX Z-GUARD PASTE 113GM TUBE (FROM STOREROOM PRODUCT) TOP SCH ×3 (08:45→20:23)
[2020-05-27] MEDS: allopurinoL 300 MG TAB PO SCH (08:45)
[2020-05-27] MEDS: TORSEMIDE 20 MG TAB PO SCH ×2 (08:45→16:41)
[2020-05-27] MEDS: DOCUSATE SODIUM 100MG CAPSULE PO SCH ×2 (08:45→20:23)
[2020-05-27] MEDS: VANICREAM MOISTURIZING SKIN CREAM 113GM TUBE TOP SCH ×2 (08:46→20:23)
[2020-05-27] MEDS ORDERED: POTASSIUM CHLORIDE 10 MEQ SR TABLET PO SCH (09:00)
[2020-05-27] MEDS ORDERED: POTASSIUM CHLORIDE 10 MEQ SR TABLET PO ONE ×2 (09:15→12:00)
--- NOTE | 2020-05-27 09:15 | IPNPDOC ---
PM&R Progress Note Video Journalist Progress Note DATE OF ADMISSION: May 19, 2020 at 14:17 INPATIENT REHABILITATION ADMISSION DAY: # SUBJECTIVE: Patient is a -year-old with . ALLERGIES: See Below MEDICATIONS: Reviewed, see below. OBJECTIVE: VITAL SIGNS: Please see below. PHYSICAL EXAMINATION: GENERAL: [Cachectic, well developed, sitting up in bed, no acute distress]. HEENT: [Normocephalic, atraumatic]. [No facial droop]. [Poor dentition, missing teeth. PERRL, EOMI]. CARDIOVASCULAR: [S1, S2, irregular rate]. [No lower limb edema or calf tenderness]. LUNGS: [Decreased breath sounds, coarse throughout]. ABDOMEN: [Soft, nontender, nondistended. Normoactive bowel sounds throughout]. MUSCULOSKELETAL: MMT: /5 strength proximally bilateral shoulder abduction, forward flexion and bilateral hip flexion. /5 strength bilateral elbow flexion, knee flexion, /5 bilateral elbow extension and knee extension. /5 purchasing and claims supervisor, dorsiflexion, plantar flexion. NEUROLOGICAL: [Alert and oriented times three]. [Answers all question appropriately]. SKIN: . LABORATORY DATA: Reviewed. Please see below. MICROBIOLOGY: Please see below. IMAGING: ASSESSMENT AND PLAN: 1. . 2. . 3. . TIME SPENT: Chart Review, examination and documentation minutes. Allergies Coded Allergies: No Known Allergies (Unverified , 08/20/18) Vital Signs Vital Signs Date Time Temp Pulse Resp B/P (MAP) Pulse Ox O2 Delivery O2 Flow Rate FiO2 05/27/20 08:44 75 155/70 05/27/20 05:12 98.3 19 95 Room Air Laboratory Data CBC/BMP Laboratory Tests 05/27/20 06:23 Labs 24H Laboratory Tests 2 05/27/20 06:23: Prothrombin Time 27.8H, Prothromb Time International Ratio 2.53, Anion Gap 4L, Glomerular Filtration Rate > 60.0, Calcium Level 9.1 Current Medications Current Medications Current Medications Medications (Trade) Dose Ordered Sig/Yeyo Route PRN Reason Start Time Stop Time Status Last Admin Dose Admin Acetaminophen (Tylenol Tab) 650 mg Q4HP PRN PO fever/MILD PAIN (PS 1-4) 05/19/20 16:30 Albuterol/ Ipratropium (Duoneb (Ipr 0.5mg/Alb 2.5mg)) 3 ml RQID NEB 05/19/20 20:00 05/26/20 21:45 Allopurinol (Zyloprim) 300 mg DAILY PO 05/20/20 09:00 05/27/20 08:45 Atorvastatin Calcium (Lipitor) 20 mg QHS PO 05/19/20 21:00 05/26/20 21:16 Bisacodyl (Dulcolax Suppository) 10 mg DAILYPRN PRN MD CONSTIPATION 05/19/20 16:30 Bisoprolol Fumarate (Zebeta) 5 mg DAILY PO 05/20/20 09:00 05/27/20 08:44 Calcium/Vitamin D (Oscal D) 500 mg DAILY PO 05/20/20 09:00 05/27/20 08:44 Carbidopa/Levodopa (Sinemet 25/100) 1 tab TID PO 05/19/20 21:00 05/27/20 08:44 Docusate Sodium (Colace) 100 mg BID PO 05/19/20 21:00 05/26/20 21:16 Emollient Cream (Vanicream) bilat arms and legs BID TOP 05/21/20 13:30 05/27/20 08:46 Ferrous Gluconate (Fergon) 324 mg DAILY PO 05/20/20 09:00 05/27/20 08:44 Fluticasone Propionate (Flonase 0.05% Nasal [employer]) 1 spray BID NARES 05/19/20 21:00 05/27/20 08:45 Folic Acid (Folic Acid) 1 mg DAILY PO 05/20/20 09:00 05/27/20 08:44 Multivitamins (Theragram-M) 1 tab DAILY PO 05/20/20 09:00 05/27/20 08:44 Nitroglycerin (Nitrostat (1/ 150)) 0.4 mg Q5MP PRN SL CHEST PAIN 05/19/20 16:30 Omeprazole (PriLOSEC) 40 mg BID PO 05/19/20 21:00 05/27/20 08:44 Potassium Chloride 10 meq/ IV Miscellaneous Supplies 100 ml @ 100 mls/hr Q1H IV 05/27/20 10:00 05/27/20 09:10 DC Potassium Chloride (Micro-K Extencaps) 10 meq DAILY PO 05/27/20 09:00 05/27/20 09:10 DC 2/4/21 08:45 Potassium Chloride (Micro-K Extencaps) 20 meq DAILY PO 05/28/20 09:00 UNV Salmeterol Xinafoate/ Fluticasone (Advair Hfa ) 2 puff BID INH 05/19/20 21:00 05/26/20 21:50 Senna (Senokot) 1 tab QHS PO 05/19/20 21:00 05/26/20 21:16 Sucralfate (Carafate) 1 gm ACHS PO 05/19/20 17:30 05/27/20 08:44 Tiotropium [place] (Spiriva Handihaler) 1 inhalation DAILY@08 INH 05/20/20 08:00 05/26/20 07:32 Torsemide (Demadex) 20 mg BID PO 05/25/20 17:30 05/26/20 00:49 DC 05/25/20 20:38 Torsemide (Demadex) 20 mg BID@0730,1730 PO 05/26/20 07:30 05/27/20 08:45 Torsemide (Demadex) 20 mg DAILY PO 05/20/20 09:00 05/25/20 10:29 DC 05/25/20 08:53 Warfarin Sodium (Coumadin) 4 mg DAILY@17 PO 05/20/20 17:00 05/21/20 09:46 DC 05/20/20 16:59 Warfarin Sodium (Coumadin) 4 mg DAILY@17 PO 05/23/20 17:00 05/25/20 09:36 DC 05/24/20 17:20 Warfarin Sodium (Coumadin) 5 mg DAILY@17 PO 05/21/20 17:00 05/23/20 09:54 DC 05/22/20 16:14 Warfarin Sodium (Coumadin) 5 mg DAILY@17 PO 05/25/20 17:00 05/26/20 09:08 DC 05/25/20 16:22 Warfarin Sodium (Coumadin) 6 mg DAILY@17 PO 05/19/20 17:00 05/20/20 11:43 DC 05/19/20 17:30 Warfarin Sodium (Coumadin) 6 mg DAILY@17 PO 05/26/20 17:00 05/26/20 16:37 BRIAN LOPEZ MD May 27, 2020 09:15
[2020-05-27] MEDS ORDERED: KCL 10MEQ/100ML SWI (KRUN) 10 MEQ in IV 1 EA IV SCH (10:00)
[2020-05-27] MEDS: IPRATROPIUM 0.5MG/ALBUTEROL 2.5MG INH SOL UD 3ML (DUONEB) NEB SCH ×4 (10:44→19:49)
[2020-05-27] MEDS: ADVAIR HFA 230/21MCG INHALER INH SCH ×2 (11:27→19:49)
[2020-05-27] MEDS: TIOTROPIUM INHALER/CAPSULE (SPIRIVA) INH SCH (11:27)
[2020-05-27 14:00] VITALS: BP 142/68
[2020-05-27] MEDS: WARFARIN SOD 3MG TAB PO SCH (16:41)
[2020-05-27 20:00] VITALS: BP 123/58
[2020-05-27] MEDS: SENNA 8.6 MG TAB (SENOKOT) PO SCH (20:23)
[2020-05-27] MEDS: ATORVASTATIN 20 MG TAB PO SCH (20:23)
[2020-05-27] MEDS ORDERED: NITR0.4S14 SL (21:11)
[2020-05-27] MEDS ORDERED: ATOR1TAB21 PO (21:11)
[2020-05-27] MEDS ORDERED: BISO5TAB14 PO (21:11)
[2020-05-27] MEDS ORDERED: PROAAER10 INH (21:11)
[2020-05-27] MEDS ORDERED: ZYLO300T6 PO (21:11)
[2020-05-27] MEDS ORDERED: SPIR-10 PO (21:11)
[2020-05-27] MEDS ORDERED: OMEP40CA97 PO (21:11)
[2020-05-27] MEDS ORDERED: SPIR1AER INH (21:11)
[2020-05-27] MEDS ORDERED: ADV250INH INH (21:11)
[2020-05-27] MEDS ORDERED: POTA10CA32 PO (21:12)
[2020-05-27] MEDS ORDERED: TORS20TA2 PO (21:12)
[2020-05-27] MEDS ORDERED: SINE25TA5 PO (21:12)
[2020-05-27] MEDS ORDERED: JANT3TAB PO (21:12)
[2020-05-28 05:06] VITALS: BP 147/67
[2020-05-28 06:50] LABS: BASO # 0.1 10^3/uL (0.0-0.2); BASO % 0.9 % (0.0-1.0); EOS # 0.2 10^3/uL (0.0-0.5); EOS % 2.9 % (0.0-3.0); HEMATOCRIT 32.6 % (42.0-52.0); HEMOGLOBIN 10.2 g/dl (13.5-17.5); LYMPH # 0.7 10^3/uL (1.5-5.0); LYMPH % 10.5 % (24.0-44.0); MEAN CORPUSCULAR HEMOGLOBIN 32.2 pg (27.0-33.0); MEAN CORPUSCULAR HGB CONC 31.3 g/dl (32.0-36.5); MEAN CORPUSCULAR VOLUME 102.8 fl (80.0-96.0); MONO # 0.8 10^3/uL (0.0-0.8); MONO % 11.6 % (0.0-5.0); NEUTROPHILS % 72.8 % (36.0-66.0); PLATELET COUNT, AUTOMATED 155 10^3/uL (150-450); RED BLOOD COUNT 3.17 10^6/uL (4.30-6.10); WHITE BLOOD COUNT 6.9 10^3/uL (4.0-10.0)
[2020-05-28 07:05] LABS: INR 2.81; PROTHROMBIN TIME 30.2 SECONDS (12.5-14.3)
[2020-05-28 07:22] LABS: BLOOD UREA NITROGEN 17 MG/DL (7-18); CALCIUM LEVEL 8.9 MG/DL (8.8-10.2); CARBON DIOXIDE LEVEL 32 MEQ/L (21-32); CHLORIDE LEVEL 101 MEQ/L (98-107); GLOMERULAR FILTRATION RATE > 60.0 (>42); GLUCOSE, FASTING 98 MG/DL (70-100); POTASSIUM SERUM 3.7 MEQ/L (3.5-5.1); SODIUM LEVEL 141 MEQ/L (136-145)
[2020-05-28] MEDS: TIOTROPIUM INHALER/CAPSULE (SPIRIVA) INH SCH (07:35)
[2020-05-28] MEDS: IPRATROPIUM 0.5MG/ALBUTEROL 2.5MG INH SOL UD 3ML (DUONEB) NEB SCH ×2 (07:35→11:11)
[2020-05-28] MEDS: ADVAIR HFA 230/21MCG INHALER INH SCH (07:35)
[2020-05-28] MEDS: OMEPRAZOLE 20 MG CAP PO SCH (08:30)
[2020-05-28] MEDS: SINEMET 25-100 MG TAB PO SCH (08:31)
[2020-05-28] MEDS: DOCUSATE SODIUM 100MG CAPSULE PO SCH (08:31)
[2020-05-28] MEDS: MULTIVITAMINS/MINERALS THERAP 1 TAB PO SCH (08:31)
[2020-05-28] MEDS: allopurinoL 300 MG TAB PO SCH (08:31)
[2020-05-28] MEDS: FOLIC ACID 1 MG TAB PO SCH (08:32)
[2020-05-28] MEDS: TORSEMIDE 20 MG TAB PO SCH (08:32)
[2020-05-28] MEDS: SUCRALFATE 1 GM TAB PO SCH ×2 (08:32→11:36)
[2020-05-28] MEDS: CALCIUM/VITAMIN D 500 MG TAB PO SCH (08:32)
[2020-05-28 08:33] VITALS: BP 147/67
[2020-05-28] MEDS: FERROUS GLUCONATE 324 MG TAB PO SCH (08:33)
[2020-05-28] MEDS: FLUTICASONE PROP 0.05% NASAL SPRAY 16 GM (FLONASE) NARES SCH (08:33)
[2020-05-28] MEDS: bisoproloL fumarate 5 MG TAB PO SCH (08:33)
[2020-05-28] MEDS: REMEDY PHYTOPLEX Z-GUARD PASTE 113GM TUBE (FROM STOREROOM PRODUCT) TOP SCH (08:33)
[2020-05-28] MEDS: VANICREAM MOISTURIZING SKIN CREAM 113GM TUBE TOP SCH (08:35)
[2020-05-28] MEDS ORDERED: POTASSIUM CHLORIDE 10 MEQ SR TABLET PO SCH (09:00)
[2020-05-28 10:08] VITALS: BP 147/67
== END 2020-05-28 13:34 | disposition home health service (06) | DRG 948 ==
LOC: M PM&R 14:17
PROVIDERS: ADMIT Physical Medicine & Rehabilitation; ATTEND Physical Medicine & Rehabilitation
DX: R53.1 Weakness (principal); I50.32 Chronic diastolic (congestive) heart failure; Z74.09 Other reduced mobility; Z74.1 Need for assistance with personal care; I25.10 Atherosclerotic heart disease of native coronary artery without angina pectoris; I11.0 Hypertensive heart disease with heart failure; G20 Parkinson's disease; D64.9 Anemia, unspecified; J44.9 Chronic obstructive pulmonary disease, unspecified; G47.33 Obstructive sleep apnea (adult) (pediatric); Z79.01 Long term (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 of anticoagulants; Z95.2 Presence of prosthetic heart valve; R13.10 Dysphagia, unspecified; R25.1 Tremor, unspecified; Z98.41 Cataract extraction status, right eye; Z98.42 Cataract extraction status, left eye; I35.0 Nonrheumatic aortic (valve) stenosis; Z79.899 Other long term (current) drug therapy; M10.30 Gout due to renal impairment, unspecified site

== ENCOUNTER → 2020-05-31 | Outpatient (REF) | payer MEDICARE ==
[~2020-05-31] MED LIST changes: +JANT3TAB PO; +POTA10CA32 PO
[2020-05-31 16:31] LABS: INR 3.31; PROTHROMBIN TIME 34.4 SECONDS (12.5-14.3)
== END ==
LOC: M SHH 14:22
PROVIDERS: ATTEND Physical Medicine & Rehabilitation
DX: I48.91 Unspecified atrial fibrillation (principal)

== ENCOUNTER → 2020-06-07 | Outpatient (REF) | payer MEDICARE ==
[~2020-06-07] MED LIST changes: +CARB25TA9 PO; +OMEP-221 PO; +POTA10TA17 PO; +WARF-23 PO; +WARF-58 PO
[2020-06-07 15:11] LABS: INR 4.36; PROTHROMBIN TIME 42.7 SECONDS (12.5-14.3)
== END ==
LOC: M LAB REF 14:00
PROVIDERS: ATTEND Physician Assistant
DX: I48.21 Permanent atrial fibrillation (principal); Z79.01 Long term (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 of anticoagulants

== ENCOUNTER 2020-06-10 01:29 | Inpatient (IN) | payer MEDICARE ==
[~2020-06-10] VITALS: Ht 182.9 cm; Wt 108.4 kg
[~2020-06-10 01:29] MED LIST changes: -CARB25TA9 PO; -OMEP-221 PO; -POTA10TA17 PO; -WARF-23 PO; -WARF-58 PO
--- OUTSIDE RECORDS SUMMARY | 2020-06-10 01:54 | CCD | Continuity of Care Document ---
Author Author Ronal DOAN PA-C Organization Unknown Address [id number] [place] [address], [facility] [place] [address] Phone [phone] Care Team Providers Care Channel Cementer Name Role Phone Tiago Jo MD AUTM [phone] Eboni DoanC AUTM [phone] Shar Turner MD AUTM [phone] Lorenzo Haddad DO AUTM [phone] Gay De León MD AUTM [phone] Rory Ritchie MD AUTM [phone] Silvana Rees MD AUTM [phone] Sharri Barnes AUTM [phone] Problems Active Problems Provider Date Chronic diastolic [...] Eboni Doan PA-C Onset: 2010 Obesity Eboni Doan PA-C Onset: 03/29/2011 Obstructive sleep apnea syndrome [...] SIG Qnty Indications Ordering Provide r Date Warfarin Sodium 3mg Tablets 2-3 tablets by mouth daily. 270tabs Tony Ndiaye MD 06/03/2020 Torsemide 20mg Tablets 2 by mouth twice a day Rory Ritchie MD 020 Klor-Con M20 20Meq Tablets ER Take one tab qam and qhs I50.32 Unknown 02/04/2020 Metolazone 2.5mg Tablets 1 [...] 1 by mouth every day Unknown 12/06/2017 Atorvastatin Calcium 20mg Tablets 1 by mouth every night at bedtime 90tabs Tony Ndiaye MD 08/23/2017 Ferrous Sulfate 325(65Fe) mg Table ts 1 by mouth every day Rory Ritchie MD 018 Calcium 500+D High Potency 112-178st-Fswu Tablets 1 by mouth daily Unknown 05/01/2017 [...] 1 by mouth daily 90tabs I50.32 Tony Nidaye MD 03/18/2008 I48.2 Multivitamins Tablets 1 PO [...] Test Result H/L Range Note Prothrombin Time/Inr 06/07/2020 [facility] enter [phone] Prothrombin Time 42.7 seconds High 12.5-14.3 Inr 4.36 Normal 1 Prothrombin Time/Inr 05/31/2020 [facility] enter [phone] Prothrombin Time 34.4 seconds High 12.5-14.3 Inr 3.31 Normal 2 Prothrombin Time/Inr 04/12/2020 [facility] enter [phone] Prothrombin Time 27.0 seconds High 12.5-14.3 Inr 2.43 Normal 3 Prothrombin Time/Inr 03/25/2020 [facility] enter [phone] Prothrombin Time 35.0 seconds High 12.5-14.3 Inr 3.38 Normal 4 Prothrombin Time/Inr 02/25/2020 [facility] enter [phone] Prothrombin Time 27.4 seconds High 12.5-14.3 Inr 2.48 Normal 5 Prothrombin Time/Inr 02/10/2020 [facility] enter [phone] Prothrombin Time 25.5 seconds High 12.5-14.3 Inr 2.26 Normal 6 Prothrombin Time/Inr 01/12/2020 [facility] enter [phone] Prothrombin Time 34.0 seconds High 12.5-14.3 Inr 3.26 Normal 7 BMP 12/30/2019 [facility] (315)- - Calcium [...] Hematocrit 34.8 Low 37.0-51.0 Prothrombin Time/Inr 12/23/2019 [facility] enter [phone] Prothrombin Time 22.9 seconds High 11.8-14.0 Inr 1.97 Normal 8 PT/Inr 12/09/2019 [facility] - not interfaced (315)- - P T 24.2 I N R 2.12 Prothrombin Time/Inr 12/09/2019 [facility] enter [phone] Prothrombin Time 24.2 seconds High 12.5-14.3 Inr 2.12 Normal 9 1 THERAPUTIC HUMAN INR VALUES INDICATIONS NORMAL [...] INFARCTION 2.5-3.5 Procedures Date Code Description Status 06/08/2020 61274 Anticoagulant MGMT F or Patient Taking Warfarin, Inc Review & Intr Completed 06/01/2020 80026 Anticoagulant MGMT F or Patient Taking Warfarin, Inc Review & Intr Completed 04/13/2020 08241 Anticoagulant MGMT F or Patient Taking Warfarin, Inc Review & Intr Completed 03/25/2020 21426 Anticoagulant MGMT F or Patient Taking Warfarin, Inc Review & Intr Completed 02/26/2020 23283 Anticoagulant MGMT F or Patient Taking Warfarin, Inc Review & Intr Completed 02/10/2020 07302 Anticoagulant MGMT F or Patient Taking Warfarin, Inc Review & Intr Completed 02/05/2020 54836 ECG 12-Lead Completed 01/12/2020 33252 Anticoagulant MGMT F or Patient Taking Warfarin, Inc Review & Intr Completed 12/23/2019 17959 Anticoagulant MGMT F or Patient Taking Warfarin, Inc Review & Intr Completed 12/12/2019 03418 Anticoagulant MGMT F or Patient Taking Warfarin, Inc Review & Intr Completed Medical Devices Description No Information Available Encounters Type Date Location Provider Dx Diagnosis Office Visit 02/05/2020 1:00p Main Office Eboni Doan PA-C I25.1 0 Athscl heart disease of [place] coronary artery w/o ang pctrs Z95.5 Presence [...] surve illance Assessments Date Code Description Provider 06/08/2020 I48.21 Permanent atrial fibrillation Ka aysha Reyna Symenow, PA-C 06/08/2020 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 Eboni E Symenow, PA-C 06/08/2020 Z95.5 Presence of coronary angioplasty implant and graft Eboni E Symenow, PA-C 06/08/2020 Z79.01 USP (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 of antic oagulants Eboni E Symenow, PA-C 06/01/2020 I48.21 Permanent atrial fibrillation Ka aysha Reyna Symenow, PA-C 06/01/2020 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 Eboni E Symenow, PA-C 06/01/2020 Z95.5 Presence of coronary angioplasty implant and graft Eboni E Symenow, PA-C 06/01/2020 Z79.01 USP (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 of antic oagulants Eboni E Symenow, PA-C 04/13/2020 Z79.01 USP (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 of antic oagulants Eboni E Symenow, PA-C 04/13/2020 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 Eboni E Symenow, PA-C 03/25/2020 I48.21 Permanent atrial fibrillation Ponce Gilliland Symenow, PA-C 03/25/2020 Z79.01 intermediate card tender (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 of antic oagulants Eboni E Symenow, PA-C 03/25/2020 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 Eboni E Symenow, PA-C 02/26/2020 Z79.01 intermediate card tender (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 of antic oagulants Eboni E Symenow, PA-C 02/26/2020 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 Eboni E Symenow, PA-C 02/10/2020 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 Eboni E Symenow, PA-C 02/05/2020 I25.10 Atherosclerotic heart disease of [place] coronary artery with Eboni E Symenow, PA-C 02/05/2020 Z95.5 Presence of coronary angioplasty implant and graft Eboni E Symenow, PA-C 02/05/2020 I50.32 Chronic diastolic (congestive) h eart failure Eboni E Symenow, PA-C 02/05/2020 I11.0 Hypertensive heart disease with heart failure Eboni Doan, PA-C 02/05/2020 I48.21 Permanent atrial fibrillation Ponce Gilliland Maverick, PA-C 02/05/2020 R94.31 Abnormal electrocardiogram [ECG] [EKG] Eboni Axel Doan, PA-C 02/05/2020 I35.0 Nonrheumatic aortic (valve) sten osis Eboni Doan, PA-C 02/05/2020 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 Eboni Doan, PA-C 02/05/2020 I34.0 Nonrheumatic mitral (valve) insu fficiency Eboni Doan, PA-C 02/05/2020 E78.00 Pure hypercholesterolemia, unspe cified Eboni Doan, PA-C 02/05/2020 I27.81 Cor pulmonale (chronic) Eboni davidson, PA-C 02/05/2020 G47.33 Obstructive sleep apnea (adult) (pediatric) Eboni Doan, PA-C 02/05/2020 Z71.3 Dietary counseling and surveilla nce Eboni Doan, PA-C 01/12/2020 I48.21 Permanent atrial fibrillation Ponce Gilliland Maverick, PA-C 01/12/2020 Z79.01 intermediate card tender (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 of antic oagulants Eboni Doan PA-C 12/23/2019 Z79.01 USP (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 of antic oagulants FREDDY Connors 12/12/2019 I48.21 Permanent atrial fibrillation Ponce Gilliland Maverick, PA-C 12/12/2019 Z79.01 intermediate card tender (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 of antic oagulants DEE DEE GaitanC Plan of Treatment Future Appointment(s):* 08/10/2020 1:00 pm - Eboni Doan PA-C at Main Office 02/05/2020 - Eboni Doan PA-C* I25.10 Atherosclerotic heart disease of [place] coronary artery with * Z95.5 Presence of [...]
--- OUTSIDE RECORDS SUMMARY | 2020-06-10 01:55 | CCD ---
Continuity of Care Document (CCD) Created on: 06/01/2020 Manuela, Ronal Carbajal External Reference #: [id number] : [id number] Sex: Male Author Organization Unknown Address Unknown Phone Unavailable Care Team Providers Care Optic Fibre Drawer Name Role Phone Tiago Jo MD AUTM [phone] Eboni Temple PA-C AUTM [phone] Shar Turner MD AUTM [phone] Lorenzo Haddad DO AUTM [phone] Gay De León MD AUTM [phone] Rory Ritchei MD AUTM [phone] Silvana Rees MD AUTM [phone] Sharri Barnes AUTM [phone] Problems Active Problems Provider Date Chronic diastolic heart failure Eboni Temple PA-C Onset: 03/29/2011 Benign hypertensive heart disease with congestive card iac failure Eboni Temple, PA-C Onset: 03/29/2011 Atrial fibrillation Eboni Temple, PA-C Onset: 03/29/2011 Electrocardiogram abnormal Eboni Temple PA-C Onset: 03/29 Aortic valve disorder Ebonigenevieve Temple, PA-C Onset: 03/29/2011 Heart valve replacement Eboni Temple, PA-C Onset: 03/29/20 11 Pure hypercholesterolemia Ebonigenevieve Temple, PA-C Onset: 2010 Obesity Ebonigenevieve Temple, PA-C Onset: 03/29/2011 Obstructive sleep apnea syndrome Eboni Temple, PA-C Onset: 03/29/2011 Chronic atrial fibrillation Ebonigenevieve Temple, PA-C Onset: 03/23 Patient post percutaneous transluminal coronary angiop lasty Ebonigenevieve Temple PA-C Onset: 04/26/2016 Coronary atherosclerosis Eboni Temple PA-C Onset: 017 Dietary management surveillance Eboni Temple PA-C Onset: 02/20/2017 Chronic pulmonary heart disease Eboni Temple PA-C Onset: 02/20/2017 Mitral valve disorder Eboni Temple PA-C Onset: 08/24/2017 Social History Type Date [...] Ndiaye MD 08/23/2017 Calcium 500+D High Potency [id number]-Swes Tablets 1 by mouth daily Unknown 05/01/2017 [...] 03/18/2008 I48.2 Multivitamins Tablets 1 PO D tammiy Davonte Romero MD Advair Diskus 250/50 Misc 1 inh [...] Test Result H/L Range Note Prothrombin Time/Inr 05/31/2020 [facility] enter [phone] Prothrombin Time 34.4 seconds High 12.5-14.3 Inr 3.31 Normal 1 Prothrombin Time/Inr 04/12/2020 [facility] enter [phone] Prothrombin Time 27.0 seconds High 12.5-14.3 Inr 2.43 Normal 2 Prothrombin Time/Inr 03/25/2020 [facility] enter [phone] Prothrombin Time 35.0 seconds High 12.5-14.3 Inr 3.38 Normal 3 Prothrombin Time/Inr 02/25/2020 [facility] enter [phone] Prothrombin Time 27.4 seconds High 12.5-14.3 Inr 2.48 Normal 4 Prothrombin Time/Inr 02/10/2020 [facility] enter [phone] Prothrombin Time 25.5 seconds High 12.5-14.3 Inr 2.26 Normal 5 Prothrombin Time/Inr 01/12/2020 [facility] enter [phone] Prothrombin Time 34.0 seconds High 12.5-14.3 Inr 3.26 Normal 6 BMP 12/30/2019 [facility] (315)- - Calcium [...] Hematocrit 34.8 Low 37.0-51.0 Prothrombin Time/Inr 12/23/2019 [facility] enter [phone] Prothrombin Time 22.9 seconds High 11.8-14.0 Inr 1.97 Normal 7 PT/Inr 12/09/2019 [facility] - not interfaced (315)- - P T 24.2 I N R 2.12 Prothrombin Time/Inr 12/09/2019 [facility] enter [phone] Prothrombin Time 24.2 seconds High 12.5-14.3 Inr 2.12 Normal 8 1 THERAPUTIC HUMAN INR VALUES INDICATIONS NORMAL [...] INFARCTION 2.5-3.5 Procedures Date Code Description Status 04/13/2020 99442 Anticoagulant MGMT F or Patient Taking Warfarin, Inc Review & Intr Completed 03/25/2020 54468 Anticoagulant MGMT F or Patient Taking Warfarin, Inc Review & Intr Completed 02/26/2020 56100 Anticoagulant MGMT F or Patient Taking Warfarin, Inc Review & Intr Completed 02/10/2020 51388 Anticoagulant MGMT F or Patient Taking Warfarin, Inc Review & Intr Completed 02/05/2020 71763 ECG 12-Lead Completed 01/12/2020 48114 Anticoagulant MGMT F or Patient Taking Warfarin, Inc Review & Intr Completed 12/23/2019 79742 Anticoagulant MGMT F or Patient Taking Warfarin, Inc Review & Intr Completed 12/12/2019 36604 Anticoagulant MGMT F or Patient Taking Warfarin, Inc Review & Intr Completed Medical Devices Description No Information Available Encounters Type Date Location Provider Dx Diagnosis Office Visit 02/05/2020 1:00p Main Office Eboni Temple PA-C I25.1 0 Athscl 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/o ang pctrs Z95.5 Presence [...] surve illance Assessments Date Code Description Provider 04/13/2020 Z79.01 paediatrician (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 of antic oagulants DEE DEE GaitanC 04/13/2020 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 DEE DEE GaitanC 03/25/2020 I48.21 Permanent atrial fibrillation Ka DEE DEE BlueC 03/25/2020 Z79.01 senior care (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 of antic oagulants DEE DEE GaitanC 03/25/2020 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 FREDDY Gaitan-C 02/26/2020 Z79.01 senior care (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 of antic oagulants Eboni Temple PA-C 02/26/2020 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 Eboni Temple PA-C 02/10/2020 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 DEE DEE GaitanC 02/05/2020 I25.10 Atherosclerotic 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ith DEE DEE GaitanC 02/05/2020 Z95.5 Presence of coronary angioplasty implant and graft Eboni Temple, PA-C 02/05/2020 I50.32 Chronic diastolic (congestive) h eart failure Eboni Temple, PA-C 02/05/2020 I11.0 Hypertensive heart disease with heart failure Eboni Temple, PA-C 02/05/2020 I48.21 Permanent atrial fibrillation Ka aysha Genevieve Temple, PA-C 02/05/2020 R94.31 Abnormal electrocardiogram [ECG] [EKG] Eboni Temple, PA-C 02/05/2020 I35.0 Nonrheumatic aortic (valve) sten osis Eboni Temple, PA-C 02/05/2020 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 Eboni Temple, PA-C 02/05/2020 I34.0 Nonrheumatic mitral (valve) insu fficiency Eboni Temple, PA-C 02/05/2020 E78.00 Pure hypercholesterolemia, unspe cified Eboni Temple, PA-C 02/05/2020 I27.81 Cor pulmonale (chronic) Eboni davidson, PA-C 02/05/2020 G47.33 Obstructive sleep apnea (adult) (pediatric) Eboni Temple, PA-C 02/05/2020 Z71.3 Dietary counseling and surveilla lelo Temple, PA-C 01/12/2020 I48.21 Permanent atrial fibrillation Ka aysha Temple PA-C 01/12/2020 Z79.01 senior care (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 of antic oagulants Eboni Temple PA-C 12/23/2019 Z79.01 paediatrician (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 of antic oagulants FREDDY Connors 12/12/2019 I48.21 Permanent atrial fibrillation Ka aysha Temple, PA-C 12/12/2019 Z79.01 paediatrician (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 of antic oagulants Eboni Temple PA-C Plan of Treatment Future Appointment(s):* 08/10/2020 1:00 pm - Eboni Temple PA-C at Main Office 02/05/2020 - Eboni E Symenow, PA-C* I25.10 Atherosclerotic 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ith * Z95.5 Presence of [...]
--- OUTSIDE RECORDS SUMMARY | 2020-06-10 01:55 | CCD | Continuity of Care Document ---
Author Author Ronal DOAN PA-C Organization Unknown Address [address] [place] [address], [facility] [address] Phone [phone] Care Team Providers Care Cath Laboratory Technician Name Role Phone Tiago Jo MD AUTM [phone] Eboni DoanC AUTM [phone] Shar Turner MD AUTM [phone] Lorenzo Haddad DO AUTM [phone] Gay De León MD AUTM [phone] Rory Ritchie MD AUTM [phone] Silvana Rees MD AUTM [phone] Sharri Barnes AUTM [phone] Problems Active Problems Provider Date Chronic diastolic heart failure Eboni Doan PA-C Onset: 03/29/2011 Benign hypertensive heart disease with congestive card iac failure Eboni Doan PA-C Onset: 03/29/2011 Atrial fibrillation Eboni Doan PA-C Onset: 03/29/2011 Electrocardiogram abnormal Eboni Doan PA-C Onset: 03/29 Aortic valve disorder Eboni Doan PA-C Onset: 03/29/2011 Heart valve replacement Eboni Doan PA-C Onset: 03/29/20 11 Pure hypercholesterolemia Ebnoi Doan PA-C Onset: 2010 Obesity Eboni Doan [...] Ritchie MD 018 Calcium 500+D High Potency 585-750so-Amre Tablets 1 by mouth daily Unknown 05/01/2017 [...] Result H/L Range Note Prothrombin Time/Inr 06/07/2020 [facility] enter [phone] Prothrombin Time 42.7 seconds High 12.5-14.3 Inr 4.36 Normal 1 Prothrombin Time/Inr 05/31/2020 [facility] enter [phone] Prothrombin Time 34.4 seconds High 12.5-14.3 Inr 3.31 Normal 2 Prothrombin Time/Inr 04/12/2020 [facility] enter [phone] Prothrombin Time 27.0 seconds High 12.5-14.3 Inr 2.43 Normal 3 Prothrombin Time/Inr 03/25/2020 [facility] enter [phone] Prothrombin Time 35.0 seconds High 12.5-14.3 Inr 3.38 Normal 4 Prothrombin Time/Inr 02/25/2020 [facility] enter [phone] Prothrombin Time 27.4 seconds High 12.5-14.3 Inr 2.48 Normal 5 Prothrombin Time/Inr 02/10/2020 [facility] enter [phone] Prothrombin Time 25.5 seconds High 12.5-14.3 Inr 2.26 Normal 6 Prothrombin Time/Inr 01/12/2020 [facility] enter [phone] Prothrombin Time 34.0 seconds High 12.5-14.3 Inr [...] Hematocrit 34.8 Low 37.0-51.0 Prothrombin Time/Inr 12/23/2019 [facility] enter [phone] Prothrombin Time 22.9 seconds High 11.8-14.0 Inr 1.97 Normal 8 PT/Inr 12/09/2019 [facility] - not interfaced (315)- - P T 24.2 I N R 2.12 Prothrombin Time/Inr 12/09/2019 [facility] enter [phone] Prothrombin Time 24.2 seconds High 12.5-14.3 Inr [...] INFARCTION 2.5-3.5 Procedures Date Code Description Status 06/01/2020 56157 Anticoagulant MGMT F or Patient Taking Warfarin, Inc Review & Intr Completed 04/13/2020 38867 Anticoagulant MGMT F or Patient Taking Warfarin, Inc Review & Intr Completed 03/25/2020 72857 Anticoagulant MGMT F or Patient Taking Warfarin, Inc Review & Intr Completed 02/26/2020 37690 Anticoagulant MGMT F or Patient Taking Warfarin, Inc Review & Intr Completed 02/10/2020 35402 Anticoagulant MGMT F or Patient Taking Warfarin, Inc Review & Intr Completed 02/05/2020 60039 ECG 12-Lead Completed 01/12/2020 47815 Anticoagulant MGMT F or Patient Taking Warfarin, Inc Review & Intr Completed 12/23/2019 08417 Anticoagulant MGMT F or Patient Taking Warfarin, Inc Review & Intr Completed 12/12/2019 59791 Anticoagulant MGMT F or Patient Taking Warfarin, Inc Review & Intr Completed Medical Devices Description No Information Available Encounters Type Date Location Provider Dx Diagnosis Office Visit 02/05/2020 1:00p Main Office Eboni Doan PA-C I25.1 0 Athscl 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/o ang pctrs Z95.5 Presence [...] surve illance Assessments Date Code Description Provider 06/01/2020 I48.21 Permanent atrial fibrillation Ponce Blue PA-C 06/01/2020 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 Eboni E Symenow, PA-C 06/01/2020 Z95.5 Presence of coronary angioplasty implant and graft Eboni E Symenow, PA-C 06/01/2020 Z79.01 group home (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 of antic oagulants Eboni E Symenow, PA-C 04/13/2020 Z79.01 exterminator (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 of antic oagulants Eboni E Symenow, PA-C 04/13/2020 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 Eboni E Symenow, PA-C 03/25/2020 I48.21 Permanent atrial fibrillation Ka te Axel Symenow, PA-C 03/25/2020 Z79.01 exterminator (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 of antic oagulants Eboni E Symenow, PA-C 03/25/2020 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 Eboni E Symenow, PA-C 02/26/2020 Z79.01 exterminator (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 of antic oagulants Eboni E Symenow, PA-C 02/26/2020 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 Eboni E Symenow, PA-C 02/10/2020 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 Eboni E Symenow, PA-C 02/05/2020 I25.10 Atherosclerotic 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ith Eboni E Symenow, PA-C 02/05/2020 Z95.5 Presence of coronary angioplasty implant and graft Eboni E Symenow, PA-C 02/05/2020 I50.32 Chronic diastolic (congestive) h eart failure Eboni E Symenow, PA-C 02/05/2020 I11.0 Hypertensive heart disease with heart failure Eboni E Symenow, PA-C 02/05/2020 I48.21 Permanent atrial fibrillation Ponce Gilliland Symenow, PA-C 02/05/2020 R94.31 Abnormal electrocardiogram [ECG] [EKG] Eboni E Symenow, PA-C 02/05/2020 I35.0 Nonrheumatic aortic (valve) sten osis Eboni E Symenow, PA-C 02/05/2020 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 DEED EE GaitanC 02/05/2020 I34.0 Nonrheumatic mitral (valve) insu fficiency DEE DEE GaitanC 02/05/2020 E78.00 Pure hypercholesterolemia, unspe cified FREDDY Gaitan-C 02/05/2020 I27.81 Cor pulmonale (chronic) DEE DEE CampbellC 02/05/2020 G47.33 Obstructive sleep apnea (adult) (pediatric) DEE DEE GaitanC 02/05/2020 Z71.3 Dietary counseling and surveilla nce DEE DEE GaitanC 01/12/2020 I48.21 Permanent atrial fibrillation DEE DEE ShepherdC 01/12/2020 Z79.01 group home (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 of antic oagulants DEE DEE GaitanC 12/23/2019 Z79.01 group home (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 of antic oagulants FREDDY Connors 12/12/2019 I48.21 Permanent atrial fibrillation DEE DEE ShepherdC 12/12/2019 Z79.01 exterminator (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 of antic oagulants Eboni Doan PA-C Plan of Treatment Future Appointment(s):* 08/10/2020 1:00 pm - Eboni Doan PA-C at Main Office 02/05/2020 - Eboni Doan PA-C* I25.10 Atherosclerotic 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ith * Z95.5 Presence of [...]
--- OUTSIDE RECORDS SUMMARY | 2020-06-10 01:55 | CCD | Continuity of Care Document ---
Author Author Ronal DOAN PA-C Organization Unknown Address [address] [place] [address], [facility] [place] [address] Phone [phone] Care Team Providers Care Storeroom Attendant Name Role Phone Tiago Jo MD AUTM [phone] Eboni DoanC AUTM [phone] Shar Turner MD AUTM [phone] Lorenzo Haddad DO AUTM [phone] Gay De León MD AUTM [phone] Rory Ritchie MD AUTM [phone] Silvana Rees MD AUTM [phone] Sharri Barnes AUTM [phone] Problems Active Problems Provider Date Chronic diastolic [...] Ndiaye MD 08/23/2017 Calcium 500+D High Potency 381-260kg-Qmfy Tablets 1 by mouth daily Unknown 05/01/2017 [...] Result H/L Range Note Prothrombin Time/Inr 05/31/2020 [facility] enter [phone] Prothrombin Time 34.4 seconds High 12.5-14.3 Inr 3.31 Normal 1 Prothrombin Time/Inr 04/12/2020 [facility] enter [phone] Prothrombin Time 27.0 seconds High 12.5-14.3 Inr 2.43 Normal 2 Prothrombin Time/Inr 03/25/2020 [facility] enter [phone] Prothrombin Time 35.0 seconds High 12.5-14.3 Inr 3.38 Normal 3 Prothrombin Time/Inr 02/25/2020 [facility] enter [phone] Prothrombin Time 27.4 seconds High 12.5-14.3 Inr 2.48 Normal 4 Prothrombin Time/Inr 02/10/2020 [facility] enter [phone] Prothrombin Time 25.5 seconds High 12.5-14.3 Inr 2.26 Normal 5 Prothrombin Time/Inr 01/12/2020 [facility] enter [phone] Prothrombin Time 34.0 seconds High 12.5-14.3 Inr [...] Hematocrit 34.8 Low 37.0-51.0 Prothrombin Time/Inr 12/23/2019 [facility] enter [phone] Prothrombin Time 22.9 seconds High 11.8-14.0 Inr 1.97 Normal 7 PT/Inr 12/09/2019 [facility] - not interfaced (315)- - P T 24.2 I N R 2.12 Prothrombin Time/Inr 12/09/2019 [facility] enter [phone] Prothrombin Time 24.2 seconds High 12.5-14.3 Inr [...] 2.5-3.5 Procedures Date Code Description Status 06/01/2020 02879 Anticoagulant MGMT F or Patient Taking Warfarin, Inc Review & Intr Completed 04/13/2020 56497 Anticoagulant MGMT F or Patient Taking Warfarin, Inc Review & Intr Completed 03/25/2020 02385 Anticoagulant MGMT F or Patient Taking Warfarin, Inc Review & Intr Completed 02/26/2020 76048 Anticoagulant MGMT F or Patient Taking Warfarin, Inc Review & Intr Completed 02/10/2020 12289 Anticoagulant MGMT F or Patient Taking Warfarin, Inc Review & Intr Completed 02/05/2020 44132 ECG 12-Lead Completed 01/12/2020 24206 Anticoagulant MGMT F or Patient Taking Warfarin, Inc Review & Intr Completed 12/23/2019 79343 Anticoagulant MGMT F or Patient Taking Warfarin, Inc Review & Intr Completed 12/12/2019 01361 Anticoagulant MGMT F or Patient Taking Warfarin, Inc Review & Intr Completed Medical Devices Description No Information Available Encounters Type Date Location Provider Dx Diagnosis Office Visit 02/05/2020 1:00p Main Office Eboni Doan PA-C 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 Z95.5 Presence [...] Description Provider 06/01/2020 I48.21 Permanent atrial fibrillation Ka aysha Doan PA-C 06/01/2020 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 Eboni Doan PA-C 06/01/2020 Z95.5 Presence of coronary angioplasty implant and graft DEE DEE GaitanC 06/01/2020 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.01 team psychologist (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 of antic oagulants DEE DEE GaitanC 04/13/2020 Z79.01 custodial (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 of antic oagulants DEE DEE GaitanC 04/13/2020 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 DEE DEE GaitanC 03/25/2020 I48.21 Permanent atrial fibrillation Ka te DEE DEE HiltonC 03/25/2020 Z79.01 custodial (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 of antic oagulants Eboni Vivasenow, PA-C 03/25/2020 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 Eboni E Symenow, PA-C 02/26/2020 Z79.01 team psychologist (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 of antic oagulants Eboni Reyna Symenow, PA-C 02/26/2020 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 Eboni E Symenow, PA-C 02/10/2020 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 Eboni E Symenow, PA-C 02/05/2020 I25.10 Atherosclerotic heart disease of [place] coronary artery with Eboni E Symenow, PA-C 02/05/2020 Z95.5 Presence of coronary angioplasty implant and graft Eboni E Kiranw, PA-C 02/05/2020 I50.32 Chronic diastolic (congestive) h eart failure Eboni E Symenow, PA-C 02/05/2020 I11.0 Hypertensive heart disease with heart failure Eboni E Symenow, PA-C 02/05/2020 I48.21 Permanent atrial fibrillation Ka te E Symenow, PA-C 02/05/2020 R94.31 Abnormal electrocardiogram [ECG] [EKG] Eboni E Symenow, PA-C 02/05/2020 I35.0 Nonrheumatic aortic (valve) sten osis Eboni E Symenow, PA-C 02/05/2020 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 Eboni E Symenow, PA-C 02/05/2020 I34.0 Nonrheumatic mitral (valve) insu fficiency Eboni E Symenow, PA-C 02/05/2020 E78.00 Pure hypercholesterolemia, unspe cified Eboni E Symenow, PA-C 02/05/2020 I27.81 Cor pulmonale (chronic) Eboni E S ymenow, PA-C 02/05/2020 G47.33 Obstructive sleep apnea (adult) (pediatric) Eboni E Symenow, PA-C 02/05/2020 Z71.3 Dietary counseling and surveilla nce Eboni E Symenow, PA-C 01/12/2020 I48.21 Permanent atrial fibrillation Ka te E Symenow, PA-C 01/12/2020 Z79.01 custodial (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 of antic oagulants Eboni Doan PA-C 12/23/2019 Z79.01 custodial (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 of antic oagulants FREDDY Connors 12/12/2019 I48.21 Permanent atrial fibrillation Ponce Blue PA-C 12/12/2019 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
--- OUTSIDE RECORDS SUMMARY | 2020-06-10 01:57 | CCD ---
Author Author [facility] Organization [facility] Address Unknown Phone Unavailable Care Team Providers Care Barometers Calibrator Name Role Phone KiranwMary Ellen PA Unavailable [...] Unavailable MERT, DARIN MD Unavailable Unavailable MERT, DARNI MD Unavailable Unavailable MERT, DARIN MD Unavailable [...] is protected by Article 27-F of the [facility] Public Health law. If you continue you may have access to information: Regarding HIV / AIDS; Provided by facilities licensed or operated by the [facility] Office of Mental Health; or Provided by the [facility] Office for People With Developmental Disabilities. If such information is present, then the following [facility] mandated warning applies: This information has been [...] law may result in a fine or prison sentence or both. A general authorization for the release of medical or other information is NOT sufficient authorization for further disc losure. Family History Family Member Name Family Member Gender Family Member Status Date o f Status Description Data Source(s) Unknown Unknown Problem [facility] ([facility] Unknown Unknown Problem [facility] ([facility] ) mother Dx age 91 Encounters Encounter Providers Location Date Indications Data Source(s ) Outpatient Attender: ASHLEIGH POLO MD [place] Office 01:00:00 PM EST [facility] ([facility] Outpatient Attender: ASHLEIGH [place] Office 12:30:00 PM EST [facility] ([facility] Office Visit Attender: DARIN PAINTING MD Main [facility] 02/23/2020 07:15:00 AM EST [facility] ([facility] Outpatient Attender: ASHLEIGH [place] Office 02:45:00 PM EDT MED[facility] ([facility] Outpatient Attender: Eboni HAYES Main Office 02/05/2020 01:00:00 PM EDT [facility] ([facility]) Outpatient Attender: ASHLEIGH [place] Office 11/2019 02:30:00 PM EDT MED[facility] ([facility] Outpatient Attender: DARIN PAINTING MD Main office - [facility] 12/01/2019 02:00:00 PM EDT [facility] ([facility]) Outpatient Attender: ASHLEIGH POLO MD [place] Office 08/2019 03:40:00 PM EDT MED[facility] ([facility] Outpatient Attender: ASHLEIGH [place] Office 02:30:00 PM EDT MED[facility] ([facility] Outpatient Attender: Eboni HAYES Main Office 08/06/2019 11:30:00 AM EDT [facility] ([facility]) Medications Medication Brand Name Start Date Product Form Dose Route Admi nistrative Instructions Pharmacy Instructions Status Indications Reaction Description Data Source(s) Warfarin Sodium 3 MG Oral Tablet Warfarin Sodium 06/03/2020 12:00:00 AM EST ORAL active [facility] ([facility]) Metolazone 2.5 MG Oral Tablet Metolazone ORAL acti ve [facility] ([facility] 60 ACTUAT Albuterol 0.09 MG/ACTUAT Metered Dose Inhaler Albu terol Sulfate HFA 02/10/2020 12:00:00 AM EDT RESPIRATORY active [facility] ([facility] torsemide 20 MG Oral Tablet Torsemide 02/04/2020 12:00:00 AM EDT ORAL active [facility] ([facility]) Carbidopa 25 MG / Levodopa 100 MG Oral Tablet Carbidopa-Levo dopa 02/04/2020 12:00:00 AM EDT ORAL active M EDENT ([facility]) Klor-Con M20 Klor-Con M20 02/04/2020 12:00:00 AM EDT active [facility] ([facility]) Metolazone 2.5 MG Oral Tablet Metolazone 02/04/2020 12:00:00 AM EDT ORAL active [facility] ([facility]) Warfarin Sodium 5 MG Oral Tablet Warfarin Sodium 01/05/2020 12:00:00 AM EDT ORAL active [facility] ([facility]) Carbidopa 25 MG / Levodopa 100 MG Oral Tablet [Sinemet] Sine met 12/04/2019 12:00:00 AM EDT ORAL active M EDENT ([facility]) Wixela Inhub Wixela Inhub 08/28/2019 12:00:00 AM EDT active [facility] ([facility] Wixela Inhub Wixela Inhub 08/06/2019 12:00:00 AM EDT completed [facility] ([facility] Fluticasone propionate 0.5 MG/ML Topical Cream Fluticasone P ropionate 08/06/2019 12:00:00 AM EDT completed [facility] ([facility] Wixela Inhub Wixela Inhub 08/05/2019 12:00:00 AM EDT active [facility] ([facility]) Fluticasone propionate 0.5 MG/ML Topical Cream Fluticasone P ropionate 08/05/2019 12:00:00 AM EDT active [facility] ([facility]) Insurance Providers Payer name Policy type / Coverage type Policy ID Covered alliance party ID Covered alliance party's relationship to luz Policy Luz Plan Information AARP HE[employer] CARE OPTIONS [id number] SP [id number] MEDICARE [id number] SP [id number] [id number] AARP O [id number] S [id number] MEDICARE C [id number] S [id number] MEDICARE COMPLETE [id number] SP [id number] BC/BS Of [facility] Part B [id number] Self [id number] BC/BS Of [facility] Part B [id number] Self [id number] [employer] Commercial [id number] Self [id number] Excellus BC/BS Of [facility] Part B [id number] Self [id number] BCBS Medicare Blue U/W Commercial [id number] Self [id number] [employer] Commercial [id number] Self [id number] MVP Commercial [id number] Self [id number] BC/BS Of [facility] Part B [id number] Self [id number] [facility] Part B [id number] Self [id number] [employer] Commercial [id number] Self [id number] Excellus BC/BS Of [facility] Part B [id number] Self [id number] BCBS Medicare Blue U/W Commercial [id number] Self [id number] [employer] Commercial [id number] Self [id number] BC/BS Of [facility] Part B [id number] Self [id number] BC/BS Of [facility] Part B [id number] Self [id number] [employer] Commercial [id number] Self [id number] Excell[employer] [facility] Part B [id number] Self [id number] BCBS Medicare Blue U/W Commercial [id number] Self [id number] [employer] Commercial [id number] Self [id number] BC/BS Of [facility] Part B [id number] Self [id number] BC/[facility] Part B [id number] Self [id number] [employer] Commercial [id number] Self [id number] [employer] BC/[facility] Part B [id number] Self [id number] BCBS Medicare Blue U/W Commercial [id number] Self [id number] [employer] Commercial [id number] Self [id number] BC/BS [facility] Part B [id number] Self [id number] BC/[facility] Part B [id number] Self [id number] [employer] Commercial [id number] Self [id number] [employer] BC/BS Of [facility] Part B [id number] Self [id number] BCBS Medicare Blue U/W Commercial [id number] Self [id number] [employer] Commercial [id number] Self [id number] BC/BS Of [facility] Part B [id number] Self [id number] BC/BS Of [facility] Part B [id number] Self [id number] [employer] Commercial [id number] Self [id number] [employer] BC/BS Of [facility] Part B [id number] Self [id number] BCBS Medicare Blue U/W Commercial [id number] Self [id number] [employer] Commercial [id number] Self [id number] BC/BS Of [facility] Part B [id number] Self [id number] BC/BS Of [facility] Part B [id number] Self [id number] [employer] Commercial [id number] Self [id number] [employer] BC/BS Of [facility] Part B [id number] Self [id number] BCBS Medicare Blue U/W Commercial [id number] Self [id number] [employer] Commercial [id number] Self [id number] BC/BS Of [facility] Part B [id number] Self [id number] BC/BS Of [facility] Part B [id number] Self [id number] [employer] Commercial [id number] Self [id number] [employer] BC/BS Of [facility] Part B [id number] Self [id number] BCBS Medicare Blue U/W Commercial [id number] Self [id number] [employer] Commercial [id number] Self [id number] Medicare Blue Ppo Commercial [id number] Self [id number] [facility] Medicare Commercial [id number] Self [id number] MEDICARE COMPLETE [id number] SP [id number] MEDICARE COMPLETE[facility] O [id number] S [id number] MEDICARE [id number] SP [id number] MEDICARE COMPLETE [id number] SP [id number] BC/BS Of [facility] B [id number] Self [id number] BC/BS Of [facility] B [id number] Self [id number] [employer] Commercial [id number] Self [id number] Excell[employer] BC/BS Of [facility] Part B [id number] Self [id number] BCBS Medicare Blue U/W Commercial [id number] Self [id number] [facility] Commercial [id number] Self [id number] Medicare Blue Ppo Commercial [id number] Self [id number] [facility] Medicare Commercial [id number] Self [id number] BC/BS Of [facility] B [id number] Self [id number] BC/BS Of [facility] B [id number] Self [id number] [employer] Commercial [id number] Self [id number] Excell[employer] BC/BS Of [facility] Part B [id number] Self [id number] BCBS Medicare Blue U/W Commercial [id number] Self [id number] [facility] Commercial [id number] Self [id number] [facility] Commercial Self BCBS Medicare Blue U/W Commercial Self MVP Commercial Self BC/BS Of [facility] Part B Self BC/BS Of [facility] B Self [employer] Commercial Self Excellus BC/BS Of [facility] B Self [facility] MEDICARE [id number] [facility] [id number] [facility]-[employer] Commercial Self MEDICARE BLUE PPO 306 [id number] SP [id number] [facility] [id number] SP [id number] MEDICARE BLUE PPO 306 [id number] SP [id number] BCBS - Medicare Blue Ppo Commercial Self EXCELLUS BCBS P [id number] S VYM [employer] BCBS P [id number] S [id number] [employer] BCBS P UNAVAILABLE S UNAV AILABLE [id number] Problems, Conditions, and Diagnoses Code Display Name Description Problem Type Effective Dates Data Source(s) 42104367 Tremor Tremor Problem 12/01/2019 12:00:00 AM ED T MEDENT ([facility] ) Surgeries/Procedures Procedure Description Date Indications Data Source(s) Anticoagulant MGMT For Patient Taking Warfarin, Inc Review & Intr 06/08/2020 12:00:00 AM EST [facility] ([place]) Anticoagulant MGMT For Patient Taking Warfarin, Inc Review & Intr 06/01/2020 12:00:00 AM EST [facility] ([facility]) Anticoagulant MGMT For Patient Taking Warfarin, Inc Review & Intr 04/13/2020 12:00:00 AM EST [facility] ([facility]) Anticoagulant MGMT For Patient Taking Warfarin, Inc Review & Intr 03/25/2020 12:00:00 AM EST MED[facility] ([facility] [facility]) Anticoagulant MGMT For Patient Taking Warfarin, Inc Review & Intr 02/26/2020 12:00:00 AM EST MED[facility] ([facility]) TSTG ANS FUNCJ CARDIOVAGAL INNERVAJ PARASYMP 0 12:00:00 AM EDT MEDENT ([facility] ) TSTG ANS FUNCJ CARDIOVAGAL INNERVAJ PARASYMP 0 12:00:00 AM EDT MED[facility] ([facility] ) TESTING AUTONOMIC NERVOUS SYSTEM FUNCTION 02/20/2020 1 2:00:00 AM EDT MED[facility] ([facility] ) TESTING AUTONOMIC NERVOUS SYSTEM FUNCTION 02/20/2020 1 2:00:00 AM EDT MED[facility] ([facility] ) ELECTROENCEPHALOGRAM W/REC AWAKE&ASLEEP 02/19/2020 12: 00:00 AM EDT MED[facility] ([facility] ) ELECTROENCEPHALOGRAM W/REC AWAKE&ASLEEP 02/19/2020 12: 00:00 AM EDT MED[facility] ([facility] ) Anticoagulant MGMT For Patient Taking Warfarin, Inc Review & Intr 02/10/2020 12:00:00 AM EDT MED[facility] ([facility]) ECG ROUTINE ECG W/LEAST 12 LDS W/I&R 02/05/2020 12:00: 00 AM EDT [facility] ([facility]) Anticoagulant MGMT For Patient Taking Warfarin, Inc Review & Intr 01/12/2020 12:00:00 AM EDT MED[facility] ([place] [facility]) Anticoagulant MGMT For Patient Taking Warfarin, Inc Review & Intr 12/23/2019 12:00:00 AM EDT MED[facility] ([facility] [facility]) MRI BRAIN BRAIN STEM W/O CONTRAST MATERIAL 12/13/2019 12:00:00 AM EDT MED[facility] ([facility] MRI BRAIN BRAIN STEM W/O CONTRAST MATERIAL 12/13/2019 12:00:00 AM EDT MED[facility] ([facility] MRI SPINAL CANAL LUMBAR W/O CONTRAST MATERIAL 12/13/19 12:00:00 AM EDT MED[facility] ([facility] MRI SPINAL CANAL LUMBAR W/O CONTRAST MATERIAL 12/13/19 12:00:00 AM EDT MED[facility] ([facility] ) Anticoagulant MGMT For Patient Taking Warfarin, Inc Review & Intr 12/12/2019 12:00:00 AM EDT MED[facility] ([facility]) Needle electromyography, each extremity, with related paraspinal areas, when performed, done with nerve conduction, amplitude and latency/velocity study; complete, five or more muscles studied, innervated by three or more nerves or four or more spinal levels (list separately in addition to the code for primary procedure). 12/08/2019 12:00:00 AM EDT MEDEN T ([facility] ) Needle electromyography, each extremity, with related paraspinal areas, when performed, done with nerve conduction, amplitude and latency/velocity study; complete, five or more muscles studied, innervated by three or more nerves or four or more spinal levels (list separately in addition to the code for primary procedure). 12/08/2019 12:00:00 AM EDT MEDEN T ([facility] ) [address]36 Nerve conduction studies 13 or more studies NEW 201212/08/2019 12:00:00 AM EDT MED[facility] ([facility] Anticoagulant MGMT For Patient Taking Warfarin, Inc Review & Intr 11/10/2019 12:00:00 AM EDT [facility] ([facility] [facility]) Anticoagulant MGMT For Patient Taking Warfarin, Inc Review & Intr 10/21/2019 12:00:00 AM EDT MED[facility] ([facility] [facility]) Anticoagulant MGMT For Patient Taking Warfarin, Inc Review & Intr 10/14/2019 12:00:00 AM EDT MED[facility] ([place] [facility]) Anticoagulant MGMT For Patient Taking Warfarin, Inc Review & Intr 09/29/2019 12:00:00 AM EDT MED[facility] ([place] [facility] [facility]) Anticoagulant MGMT For Patient Taking Warfarin, Inc Review & Intr 09/03/2019 12:00:00 AM EDT [facility] ([facility] [facility]) Anticoagulant MGMT For Patient Taking Warfarin, Inc Review & Intr 08/21/2019 12:00:00 AM EDT [facility] ([facility] [facility]) ECG ROUTINE ECG W/LEAST 12 LDS W/I&R 08/06/2019 12:00: 00 AM EDT [facility] ([facility]) Anticoagulant MGMT For Patient Taking Warfarin, Inc Review & Intr 07/16/2019 12:00:00 AM EDT [facility] ([facility]) Anticoagulant MGMT For Patient Taking Warfarin, Inc Review & Intr 06/23/2019 12:00:00 AM EST [facility] ([place] [facility]) Anticoagulant MGMT For Patient Taking Warfarin, Inc Review & Intr 05/28/2019 12:00:00 AM EST [facility] ([facility] [facility]) Anticoagulant MGMT For Patient Taking Warfarin, Inc Review & Intr 05/06/2019 12:00:00 AM EST [facility] ([facility] [facility]) Anticoagulant MGMT For Patient Taking Warfarin, Inc Review & Intr 04/29/2019 12:00:00 AM EST [facility] ([facility]) Results ID Date Data Source [id number] 06/07/2020 09:20:00 AM EST [facility] Name Value Range Interpretation Code Description Data Annette rce(s) Supporting Document(s) Prothrombin Time 42.7 s 12.5-14.3 [facility] ([facility]) Inr 4.36 [facility] ([facility]) THERAPUTIC HUMAN INR VALUES INDICATIONS NORMAL RANGES PROPHYLAXIS/TREATMENT OF: VENOUS THROMBOSIS 2.0-3.0 PULMONARY EMBOLISM 2.0-3.0 PREVENTION OF SYSTEMIC EMBOLISM FROM: TISSUE HEART VALVES 2.0-3.0 ACUTE MYOCARDIAL INFARCTION 2.0-3.0 VALVULAR HEART DISEASE 2.0-3.0 ATRIAL FIBRILLATION 2.0-3.0 MECHANICAL VALVES(HIGH RISK) 2.5-3.5 RECURRENT MYOCARDIAL INFARCTION 2.5-3.5 ID Date Data Source [id number] 05/31/2020 12:40:00 PM EST MED[facility] ([facility]) Name Value Range Interpretation Code Description Data Annette rce(s) Supporting Document(s) Inr 3.31 [facility] ([facility] THERAPUTIC HUMAN INR VALUES INDICATIONS NORMAL RANGES PROPHYLAXIS/TREATMENT OF: VENOUS THROMBOSIS 2.0-3.0 PULMONARY EMBOLISM 2.0-3.0 PREVENTION OF SYSTEMIC EMBOLISM FROM: TISSUE HEART VALVES 2.0-3.0 ACUTE MYOCARDIAL INFARCTION 2.0-3.0 VALVULAR HEART DISEASE 2.0-3.0 ATRIAL FIBRILLATION 2.0-3.0 MECHANICAL VALVES(HIGH RISK) 2.5-3.5 RECURRENT MYOCARDIAL INFARCTION 2.5-3.5 Prothrombin Time 34.4 s 12.5-14.3 MED[facility] ([facility]) ID Date Data Source [id number] 04/29/2020 05:38:00 PM EST [facility] Name Value Range Interpretation Code Description Data Annette rce(s) Supporting Document(s) SARS-CoV-2 (COVID 19) NEGATIVE - SARS-CoV-2 (COVID19) [facility] This lab was ordered by [facility] a nd reported by [facility]. ID Date Data Source [id number] 04/12/2020 09:51:00 AM EST MEDENT ([facility]) Name Value Range Interpretation Code Description Data Annette rce(s) Supporting Document(s) Prothrombin Time 27.0 s 12.5-14.3 [facility] ([facility]) Inr 2.43 [facility] ([facility]) THERAPUTIC HUMAN INR VALUES INDICATIONS NORMAL RANGES PROPHYLAXIS/TREATMENT OF: VENOUS THROMBOSIS 2.0-3.0 PULMONARY EMBOLISM 2.0-3.0 PREVENTION OF SYSTEMIC EMBOLISM FROM: TISSUE HEART VALVES 2.0-3.0 ACUTE MYOCARDIAL INFARCTION 2.0-3.0 VALVULAR HEART DISEASE 2.0-3.0 ATRIAL FIBRILLATION 2.0-3.0 MECHANICAL VALVES(HIGH RISK) 2.5-3.5 RECURRENT MYOCARDIAL INFARCTION 2.5-3.5 ID Date Data Source [id number] 04/12/2020 09:51:00 AM EST [facility] ([facility] Name Value Range Interpretation Code Description Data Annette rce(s) Supporting Document(s) Inr 2.43 Normal (applies to non-numeric resul ts) MED[facility] ([facility] THERAPUTIC HUMAN INR VALUES INDICATIONS NORMAL RANGES PROPHYLAXIS/TREATMENT OF: VENOUS THROMBOSIS 2.0-3.0 PULMONARY EMBOLISM 2.0-3.0 PREVENTION OF SYSTEMIC EMBOLISM FROM: TISSUE HEART VALVES 2.0-3.0 ACUTE MYOCARDIAL INFARCTION 2.0-3.0 VALVULAR HEART DISEASE 2.0-3.0 ATRIAL FIBRILLATION 2.0-3.0 MECHANICAL VALVES(HIGH RISK) 2.5-3.5 RECURRENT MYOCARDIAL INFARCTION 2.5-3.5 Prothrombin Time 27.0 s 12.5-14.3 Above high normal M EDRENATA ([facility] ID Date Data Source [id number] 04/07/2020 02:05:00 PM EST MEDENT ([facility] Name Value Range Interpretation Code Description Data [facility](s) Supporting Document(s) WBC 7.8 10E3/uL 4.1-10.9 MED[facility] ([facility] NORMAL RANGES Age WBC [...] HCT IS 5% LESS SOURCE FOR DATA: [employer] 1800 OPERATION MANUAL( AUTOMATED BLOOD COUNTS AND [...] HGB 11.5 g/dL 12.0-18.0 Below low normal [facility] ( [facility] [...] HCT IS 5% LESS SOURCE FOR DATA: [employer] 1800 OPERATION MANUAL( AUTOMATED BLOOD COUNTS AND [...] RBC 3.45 10E6/uL 4.20-6.30 Below low normal [facility] NORMAL [...] HCT IS 5% LESS SOURCE FOR DATA: [employer] 1800 OPERATION MANUAL( AUTOMATED BLOOD COUNTS AND [...] MCV 100.6 fL 80.0-97.0 Above high normal MEDENT (Family [...] HCT IS 5% LESS SOURCE FOR DATA: [employer] 1800 OPERATION MANUAL( AUTOMATED BLOOD COUNTS AND [...] HCT 34.7 % 37.0-51.0 Below low normal [facility] ( [facility] [...] HCT IS 5% LESS SOURCE FOR DATA: [employer] 1800 OPERATION MANUAL( AUTOMATED BLOOD COUNTS AND [...] >32 mL/min Normal MCHC 33.1 g/dL 31.0-36.0 [facility] ([facility] NORMAL RANGES [...] HCT IS 5% LESS SOURCE FOR DATA: [employer] 1800 OPERATION MANUAL( AUTOMATED BLOOD COUNTS AND [...] >32 mL/min Normal PLT 205 10E3/uL 140-440 [facility] ([facility] NORMAL RANGES Age WBC RBC HGB [...] HCT IS 5% LESS SOURCE FOR DATA: [employer] 1800 OPERATION MANUAL( AUTOMATED BLOOD COUNTS AND [...] MCH 33.3 pg 26.0-32.0 Above high normal [facility] ([facility] NORMAL RANGES Age [...] RDW-CV 16.1 % 11.5-14.5 Above high normal [facility] ([facility] NORMAL [...] HCT IS 5% LESS SOURCE FOR DATA: [employer] 1800 OPERATION MANUAL( AUTOMATED BLOOD COUNTS AND [...] Lym% 9.2 % 10.0-58.5 Below low normal [facility] ( [facility] NORMAL RANGES [...] HCT IS 5% LESS SOURCE FOR DATA: [employer] 1800 OPERATION MANUAL( AUTOMATED BLOOD COUNTS AND [...] >32 mL/min Normal Neut% 77.1 % 37.0-92.0 [facility] ([facility] NORMAL RANGES [...] HCT IS 5% LESS SOURCE FOR DATA: [employer] 1800 OPERATION MANUAL( AUTOMATED BLOOD COUNTS AND [...] >32 mL/min Normal MXD% 13.7 % 0.1-24.0 [facility] ([facility] NORMAL RANGES [...] HCT IS 5% LESS SOURCE FOR DATA: [employer] 1800 OPERATION MANUAL( AUTOMATED BLOOD COUNTS AND [...] mL/min Normal MXD# 1.1 10E3/uL 0.0-1.8 [facility] ([facility] NORMAL RANGES Age WBC [...] HCT IS 5% LESS SOURCE FOR DATA: [employer] 1800 OPERATION MANUAL( AUTOMATED BLOOD COUNTS AND [...] >32 mL/min Normal Neut# 6.0 % 2.0-7.8 [facility] NORMAL RANGES Age [...] HCT IS 5% LESS SOURCE FOR DATA: [employer] 1800 OPERATION MANUAL( AUTOMATED BLOOD COUNTS AND [...] >32 mL/min Normal Lym# 0.7 10E3/uL 0.6-4.1 LILLIAN ([facility] NORMAL RANGES Age WBC [...] HCT IS 5% LESS SOURCE FOR DATA: [employer] 1800 OPERATION MANUAL( AUTOMATED BLOOD COUNTS AND [...] >32 mL/min Normal MPV 11.0 fL 9.0-13.0 LILLIAN ([facility] NORMAL RANGES Age WBC RBC [...] HCT IS 5% LESS SOURCE FOR DATA: [employer] 1800 OPERATION MANUAL( AUTOMATED BLOOD COUNTS AND [...] >32 mL/min Normal ID Date Data Source [id number] 04/07/2020 02:05:00 PM EST MEDENT (Famil y [...] HCT IS 5% LESS SOURCE FOR DATA: [employer] 1800 OPERATION MANUAL( AUTOMATED BLOOD COUNTS [...] >32 mL/min Normal Glu 87 mg/dL 70-110 [facility] ([facility] NORMAL RANGES Age [...] HCT IS 5% LESS SOURCE FOR DATA: [employer] 1800 OPERATION MANUAL( AUTOMATED BLOOD COUNTS AND [...] >32 mL/min Normal BUN/Creatinine Ratio 30.6 CALC Neema ([facility] NORMAL RANGES Age WBC [...] HCT IS 5% LESS SOURCE FOR DATA: [employer] 1800 OPERATION MANUAL( AUTOMATED BLOOD COUNTS AND [...] HCT IS 5% LESS SOURCE FOR DATA: [employer] 1800 OPERATION MANUAL( AUTOMATED BLOOD COUNTS AND [...] >32 mL/min Normal CA 9.0 mg/dL 8.6-10.2 [facility] ([facility] [...] HCT IS 5% LESS SOURCE FOR DATA: [employer] 1800 OPERATION MANUAL( AUTOMATED BLOOD COUNTS AND [...] >32 mL/min Normal Co2 28.1 mmol/L 22.0-29.0 [facility] ([facility] NORMAL RANGES Age WBC [...] HCT IS 5% LESS SOURCE FOR DATA: [employer] 1800 OPERATION MANUAL( AUTOMATED BLOOD COUNTS AND [...] >32 mL/min Normal Na 138 mmol/L 136-145 [facility] ([facility] NORMAL RANGES Age [...] HCT IS 5% LESS SOURCE FOR DATA: [employer] 1800 OPERATION MANUAL( AUTOMATED BLOOD COUNTS AND [...] >32 mL/min Normal K 3.8 mmol/L 3.5-5.1 [facility] ([facility] NORMAL RANGES [...] HCT IS 5% LESS SOURCE FOR DATA: [employer] 1800 OPERATION MANUAL( AUTOMATED BLOOD COUNTS AND [...] >32 mL/min Normal Anion Gap 15 mmol/L [facility] ([facility] NORMAL RANGES Age WBC RBC [...] HCT IS 5% LESS SOURCE FOR DATA: [employer] 1800 OPERATION MANUAL( AUTOMATED BLOOD COUNTS AND [...] >32 mL/min Normal CL 98.2 mmol/L 98.0-107.0 Neema ([facility] NORMAL RANGES Age [...] above >32 mL/min Normal eGFR 60 # LILLIAN ( [facility] NORMAL RANGES Age [...] HCT IS 5% LESS SOURCE FOR DATA: [employer] 1800 OPERATION MANUAL( AUTOMATED BLOOD COUNTS AND [...] and above >32 mL/min Normal eGFR Non-Afr. Equatorial Guinean 52 # MEDENT ([facility] [...] HCT IS 5% LESS SOURCE FOR DATA: [employer] 1800 OPERATION MANUAL( AUTOMATED BLOOD COUNTS AND [...] >32 mL/min Normal ID Date Data Source [id number] 03/25/2020 11:05:00 AM EST MEDENT ([facility]) Name Value Range Interpretation Code Description Data Annette rce(s) Supporting Document(s) Prothrombin Time 35.0 s 12.5-14.3 [facility] ([facility]) Inr 3.38 MEDENT (Cardiology A [facility]) THERAPUTIC HUMAN INR VALUES INDICATIONS NORMAL RANGES PROPHYLAXIS/TREATMENT OF: VENOUS THROMBOSIS 2.0-3.0 PULMONARY EMBOLISM 2.0-3.0 PREVENTION OF SYSTEMIC EMBOLISM FROM: TISSUE HEART VALVES 2.0-3.0 ACUTE MYOCARDIAL INFARCTION 2.0-3.0 VALVULAR HEART DISEASE 2.0-3.0 ATRIAL FIBRILLATION 2.0-3.0 MECHANICAL VALVES(HIGH RISK) 2.5-3.5 RECURRENT MYOCARDIAL INFARCTION 2.5-3.5 ID Date Data Source [id number] 03/25/2020 11:05:00 AM EST MEDENT ([facility] Name Value Range Interpretation Code Description Data Annette rce(s) Supporting Document(s) Prothrombin Time 35.0 s 12.5-14.3 Above high normal M EDENT ([facility] Inr 3.38 Normal (applies to non-numeric resul ts) MEDRENATA ([facility] THERAPUTIC HUMAN INR VALUES INDICATIONS NORMAL RANGES PROPHYLAXIS/TREATMENT OF: VENOUS THROMBOSIS 2.0-3.0 PULMONARY EMBOLISM 2.0-3.0 PREVENTION OF SYSTEMIC EMBOLISM FROM: TISSUE HEART VALVES 2.0-3.0 ACUTE MYOCARDIAL INFARCTION 2.0-3.0 VALVULAR HEART DISEASE 2.0-3.0 ATRIAL FIBRILLATION 2.0-3.0 MECHANICAL VALVES(HIGH RISK) 2.5-3.5 RECURRENT MYOCARDIAL INFARCTION 2.5-3.5 ID Date Data Source [id number] 03/01/2020 09:02:00 AM EST LILLIAN ([facility] Name Value Range Interpretation Code Description Data Annette rce(s) Supporting Document(s) Chol 140 mg/dL 0-200 [facility] NORMAL RANGES Age [...] HCT IS 5% LESS SOURCE FOR DATA: [employer] 1800 OPERATION MANUAL( AUTOMATED BLOOD COUNTS [...] HCT IS 5% LESS SOURCE FOR DATA: [employer] 1800 OPERATION MANUAL( AUTOMATED BLOOD COUNTS AND [...] 2-19 YEARS EXCLUSIVE. LDL_C 86 Calc 75-129 LILLIAN ([facility] NORMAL RANGES Age WBC RBC [...] HCT IS 5% LESS SOURCE FOR DATA: [employer] 1800 OPERATION MANUAL( AUTOMATED BLOOD COUNTS AND [...] HCT IS 5% LESS SOURCE FOR DATA: [employer] 1800 OPERATION MANUAL( AUTOMATED BLOOD COUNTS AND [...] 2-19 YEARS EXCLUSIVE. Cho/HDL Ratio 4.4 CALC MEDENT ([facility] NORMAL RANGES Age WBC RBC [...] HCT IS 5% LESS SOURCE FOR DATA: [employer] 1800 OPERATION MANUAL( AUTOMATED BLOOD COUNTS AND [...] 2-19 YEARS EXCLUSIVE. ID Date Data Source [id number] 03/01/2020 09:02:00 AM EST MEDENT (Famil y [...] HCT IS 5% LESS SOURCE FOR DATA: [employer] 1800 OPERATION MANUAL( AUTOMATED BLOOD COUNTS [...] 2-19 YEARS EXCLUSIVE. Glu 98 mg/dL 70-110 [facility] ([facility] [...] HCT IS 5% LESS SOURCE FOR DATA: [employer] 1800 OPERATION MANUAL( AUTOMATED BLOOD COUNTS AND [...] 2-19 YEARS EXCLUSIVE. BUN/Creatinine Ratio 24.6 CALC [facility] ([facility] NORMAL RANGES Age WBC [...] HCT IS 5% LESS SOURCE FOR DATA: [employer] 1800 OPERATION MANUAL( AUTOMATED BLOOD COUNTS AND [...] HCT IS 5% LESS SOURCE FOR DATA: [employer] 1800 OPERATION MANUAL( AUTOMATED BLOOD COUNTS AND [...] 2-19 YEARS EXCLUSIVE. Na 138 mmol/L 136-145 [facility] ([facility] [...] HCT IS 5% LESS SOURCE FOR DATA: [employer] 1800 OPERATION MANUAL( AUTOMATED BLOOD COUNTS AND [...] 2-19 YEARS EXCLUSIVE. K 4.3 mmol/L 3.5-5.1 [facility] ([facility] [...] HCT IS 5% LESS SOURCE FOR DATA: [employer] 1800 OPERATION MANUAL( AUTOMATED BLOOD COUNTS AND [...] 2-19 YEARS EXCLUSIVE. CL 101.8 mmol/L 98.0-107.0 [facility] ([facility] NORMAL RANGES Age WBC RBC HGB [...] HCT IS 5% LESS SOURCE FOR DATA: [employer] 1800 OPERATION MANUAL( AUTOMATED BLOOD COUNTS AND [...] 2-19 YEARS EXCLUSIVE. Co2 24.3 mmol/L 22.0-29.0 [facility] ([facility] NORMAL RANGES Age WBC [...] HCT IS 5% LESS SOURCE FOR DATA: [employer] 1800 OPERATION MANUAL( AUTOMATED BLOOD COUNTS AND [...] TP 6.2 g/dL 6.6-8.7 Below low normal [facility] ( [facility] NORMAL RANGES Age [...] HCT IS 5% LESS SOURCE FOR DATA: [employer] 1800 OPERATION MANUAL( AUTOMATED BLOOD COUNTS AND [...] 2-19 YEARS EXCLUSIVE. CA 9.1 mg/dL 8.6-10.2 [facility] ([facility] [...] HCT IS 5% LESS SOURCE FOR DATA: [employer] 1800 OPERATION MANUAL( AUTOMATED BLOOD COUNTS [...] HCT IS 5% LESS SOURCE FOR DATA: [employer] 1800 OPERATION MANUAL( AUTOMATED BLOOD COUNTS AND [...] 2-19 YEARS EXCLUSIVE. A/G Ratio 1.5 CALC LILLIAN ([facility] NORMAL RANGES Age [...] HCT IS 5% LESS SOURCE FOR DATA: [employer] 1800 OPERATION MANUAL( AUTOMATED BLOOD COUNTS AND [...] 2-19 YEARS EXCLUSIVE. Alp 66.3 U/L 40-129 [facility] ([facility] [...] HCT IS 5% LESS SOURCE FOR DATA: [employer] 1800 OPERATION MANUAL( AUTOMATED BLOOD COUNTS AND [...] HCT IS 5% LESS SOURCE FOR DATA: [employer] 1800 OPERATION MANUAL( AUTOMATED BLOOD COUNTS AND [...] YEARS EXCLUSIVE. Alt (SGPT) 2 U/L 0-41 [facility] ([facility] NORMAL RANGES Age WBC [...] HCT IS 5% LESS SOURCE FOR DATA: [employer] 1800 OPERATION MANUAL( AUTOMATED BLOOD COUNTS AND [...] YEARS EXCLUSIVE. Ast (Sgot) 15 U/L 0-40 [facility] ([facility] NORMAL RANGES Age WBC [...] HCT IS 5% LESS SOURCE FOR DATA: [employer] 1800 OPERATION MANUAL( AUTOMATED BLOOD COUNTS AND [...] HCT IS 5% LESS SOURCE FOR DATA: [employer] 1800 OPERATION MANUAL( AUTOMATED BLOOD COUNTS AND [...] IS 5% LESS SOURCE FOR DATA: HUB[employer] 1800 OPERATION MANUAL( AUTOMATED BLOOD COUNTS AND [...] HCT IS 5% LESS SOURCE FOR DATA: [employer] 1800 OPERATION MANUAL( AUTOMATED BLOOD COUNTS AND [...] HCT IS 5% LESS SOURCE FOR DATA: [employer] 1800 OPERATION MANUAL( AUTOMATED BLOOD COUNTS AND [...] INDIVIDUALA AGED 2-19 YEARS EXCLUSIVE. eGFR Non-Afr. Equatorial Guinean 47 # MEDENT ([facility] [...] 2-19 YEARS EXCLUSIVE. ID Date Data Source [id number] 03/01/2020 09:02:00 AM EST LILLIAN ([facility] Name Value Range Interpretation Code Description Data Annette rce(s) Supporting Document(s) WBC 6.7 10E3/uL 4.1-10.9 MEDENT ([facility] NORMAL RANGES Age WBC [...] HCT IS 5% LESS SOURCE FOR DATA: [employer] 1800 OPERATION MANUAL( AUTOMATED BLOOD COUNTS AND [...] RBC 3.51 10E6/uL 4.20-6.30 Below low normal [facility] ([facility] NORMAL RANGES Age [...] HCT IS 5% LESS SOURCE FOR DATA: [employer] 1800 OPERATION MANUAL( AUTOMATED BLOOD COUNTS AND [...] HGB 11.4 g/dL 12.0-18.0 Below low normal [facility] ( [facility] [...] HCT IS 5% LESS SOURCE FOR DATA: [employer] 1800 OPERATION MANUAL( AUTOMATED BLOOD COUNTS AND [...] HCT IS 5% LESS SOURCE FOR DATA: [employer] 1800 OPERATION MANUAL( AUTOMATED BLOOD COUNTS AND [...] HCT 34.7 % 37.0-51.0 Below low normal [facility] ( [facility] NORMAL RANGES Age [...] HCT IS 5% LESS SOURCE FOR DATA: [employer] 1800 OPERATION MANUAL( AUTOMATED BLOOD COUNTS AND [...] MCH 32.5 pg 26.0-32.0 Above high normal [facility] ([facility] NORMAL [...] HCT IS 5% LESS SOURCE FOR DATA: [employer] 1800 OPERATION MANUAL( AUTOMATED BLOOD COUNTS AND [...] HCT IS 5% LESS SOURCE FOR DATA: [employer] 1800 OPERATION MANUAL( AUTOMATED BLOOD COUNTS AND [...] 2-19 YEARS EXCLUSIVE. PLT 149 10E3/uL 140-440 [facility] ([facility] NORMAL RANGES Age WBC RBC HGB [...] HCT IS 5% LESS SOURCE FOR DATA: [employer] 1800 OPERATION MANUAL( AUTOMATED BLOOD COUNTS AND [...] 2-19 YEARS EXCLUSIVE. Neut% 75.8 % 37.0-92.0 [facility] ([facility] [...] HCT IS 5% LESS SOURCE FOR DATA: [employer] 1800 OPERATION MANUAL( AUTOMATED BLOOD COUNTS AND [...] HCT IS 5% LESS SOURCE FOR DATA: [employer] 1800 OPERATION MANUAL( AUTOMATED BLOOD COUNTS AND [...] RDW-CV 15.4 % 11.5-14.5 Above high normal [facility] ([facility] NORMAL [...] 2-19 YEARS EXCLUSIVE. Lym# 0.7 10E3/uL 0.6-4.1 [facility] ([facility] NORMAL RANGES Age WBC [...] HCT IS 5% LESS SOURCE FOR DATA: [employer] 1800 OPERATION MANUAL( AUTOMATED BLOOD COUNTS AND [...] HCT IS 5% LESS SOURCE FOR DATA: [employer] 1800 OPERATION MANUAL( AUTOMATED BLOOD COUNTS AND [...] 2-19 YEARS EXCLUSIVE. MXD# 1.0 10E3/uL 0.0-1.8 MEDOkeyko ([facility] NORMAL RANGES Age WBC [...] HCT IS 5% LESS SOURCE FOR DATA: [employer] 1800 OPERATION MANUAL( AUTOMATED BLOOD COUNTS [...] 2-19 YEARS EXCLUSIVE. Neut# 5.0 % 2.0-7.8 [facility] ([facility] [...] HCT IS 5% LESS SOURCE FOR DATA: [employer] 1800 OPERATION MANUAL( AUTOMATED BLOOD COUNTS AND [...] 2-19 YEARS EXCLUSIVE. MPV 10.9 fL 9.0-13.0 [facility] ([facility] [...] HCT IS 5% LESS SOURCE FOR DATA: [employer] 1800 OPERATION MANUAL( AUTOMATED BLOOD COUNTS AND [...] 2-19 YEARS EXCLUSIVE. ID Date Data Source [id number] 02/25/2020 08:11:00 AM EST MEDENT ([facility]) Name Value Range Interpretation Code Description Data Annette rce(s) Supporting Document(s) Prothrombin Time 27.4 s 12.5-14.3 MEDENT ([facility]) Inr 2.48 MEDENT (Cardiology A [facility]) THERAPUTIC HUMAN INR VALUES INDICATIONS NORMAL RANGES PROPHYLAXIS/TREATMENT OF: VENOUS THROMBOSIS 2.0-3.0 PULMONARY EMBOLISM 2.0-3.0 PREVENTION OF SYSTEMIC EMBOLISM FROM: TISSUE HEART VALVES 2.0-3.0 ACUTE MYOCARDIAL INFARCTION 2.0-3.0 VALVULAR HEART DISEASE 2.0-3.0 ATRIAL FIBRILLATION 2.0-3.0 MECHANICAL VALVES(HIGH RISK) 2.5-3.5 RECURRENT MYOCARDIAL INFARCTION 2.5-3.5 ID Date Data Source [id number] 02/25/2020 08:11:00 AM EST MEDENT ([facility] Name Value Range Interpretation Code Description Data Annette rce(s) Supporting Document(s) Prothrombin Time 27.4 s 12.5-14.3 Above high normal M EDENT ([facility] Inr 2.48 Normal (applies to non-numeric resul ts) MEDENT ([facility] THERAPUTIC HUMAN INR VALUES INDICATIONS NORMAL RANGES PROPHYLAXIS/TREATMENT OF: VENOUS THROMBOSIS 2.0-3.0 PULMONARY EMBOLISM 2.0-3.0 PREVENTION OF SYSTEMIC EMBOLISM FROM: TISSUE HEART VALVES 2.0-3.0 ACUTE MYOCARDIAL INFARCTION 2.0-3.0 VALVULAR HEART DISEASE 2.0-3.0 ATRIAL FIBRILLATION 2.0-3.0 MECHANICAL VALVES(HIGH RISK) 2.5-3.5 RECURRENT MYOCARDIAL INFARCTION 2.5-3.5 ID Date Data Source [id number] 02/17/2020 03:19:00 PM EDT MEDENT ([employer] [facility] Name Value Range Interpretation Code Description Data Annette rce(s) Supporting Document(s) INR in Platelet poor plasma by Coagulation assay 3.6 MEDENT ([facility] Prothrombin Time-Therapy 43.0 MEDEN T ([facility] ID Date Data Source [id number] 02/17/2020 03:19:00 PM EDT MEDENT ([employer] [facility] Name Value Range Interpretation Code Description Data Annette rce(s) Supporting Document(s) WBC 11.3 10E3/uL 4.1-10.9 Above high normal MEDEN T ([employer] [facility] NORMAL RANGES Age WBC RBC [...] HCT IS 5% LESS SOURCE FOR DATA: [employer] 1800 OPERATION MANUAL( AUTOMATED BLOOD COUNTS AND [...] >32 mL/min Normal RBC 4.22 10E6/uL 4.20-6.30 [facility] ([facility] NORMAL RANGES Age WBC RBC [...] HCT IS 5% LESS SOURCE FOR DATA: [employer] 1800 OPERATION MANUAL( AUTOMATED BLOOD COUNTS AND [...] >32 mL/min Normal HCT 40.8 % 37.0-51.0 [facility] ([facility] [...] HCT IS 5% LESS SOURCE FOR DATA: [employer] 1800 OPERATION MANUAL( AUTOMATED BLOOD COUNTS AND [...] HCT IS 5% LESS SOURCE FOR DATA: [employer] 1800 OPERATION MANUAL( AUTOMATED BLOOD COUNTS AND [...] >32 mL/min Normal MCV 96.7 fL 80.0-97.0 LILLIAN ([facility] NORMAL RANGES [...] HCT IS 5% LESS SOURCE FOR DATA: [employer] 1800 OPERATION MANUAL( AUTOMATED BLOOD COUNTS AND [...] MCH 32.7 pg 26.0-32.0 Above high normal [facility] ([facility] NORMAL RANGES Age [...] HCT IS 5% LESS SOURCE FOR DATA: [employer] 1800 OPERATION MANUAL( AUTOMATED BLOOD COUNTS AND [...] >32 mL/min Normal PLT 186 10E3/uL 140-440 [facility] ([facility] NORMAL RANGES Age WBC RBC HGB [...] HCT IS 5% LESS SOURCE FOR DATA: [employer] 1800 OPERATION MANUAL( AUTOMATED BLOOD COUNTS AND [...] >32 mL/min Normal MCHC 33.8 g/dL 31.0-36.0 [facility] ([facility] NORMAL RANGES Age WBC RBC HGB [...] HCT IS 5% LESS SOURCE FOR DATA: [employer] 1800 OPERATION MANUAL( AUTOMATED BLOOD COUNTS AND [...] RDW-CV 14.7 % 11.5-14.5 Above high normal [facility] ([facility] NORMAL RANGES Age [...] Lym% 8.0 % 10.0-58.5 Below low normal [facility] ( [facility] [...] HCT IS 5% LESS SOURCE FOR DATA: [employer] 1800 OPERATION MANUAL( AUTOMATED BLOOD COUNTS AND [...] >32 mL/min Normal Neut% 75.7 % 37.0-92.0 [facility] ([facility] [...] HCT IS 5% LESS SOURCE FOR DATA: [employer] 1800 OPERATION MANUAL( AUTOMATED BLOOD COUNTS AND [...] >32 mL/min Normal Lym# 0.9 10E3/uL 0.6-4.1 [facility] ([facility] NORMAL RANGES Age WBC [...] HCT IS 5% LESS SOURCE FOR DATA: [employer] 1800 OPERATION MANUAL( AUTOMATED BLOOD COUNTS AND [...] >32 mL/min Normal MXD% 16.3 % 0.1-24.0 LILLIAN ([facility] NORMAL RANGES [...] HCT IS 5% LESS SOURCE FOR DATA: [employer] 1800 OPERATION MANUAL( AUTOMATED BLOOD COUNTS AND [...] HCT IS 5% LESS SOURCE FOR DATA: [employer] 1800 OPERATION MANUAL( AUTOMATED BLOOD COUNTS AND [...] >32 mL/min Normal MXD# 1.8 10E3/uL 0.0-1.8 [facility] ([facility] NORMAL RANGES Age WBC [...] HCT IS 5% LESS SOURCE FOR DATA: [employer] 1800 OPERATION MANUAL( AUTOMATED BLOOD COUNTS AND [...] >32 mL/min Normal MPV 12.4 fL 9.0-13.0 [facility] ([facility] NORMAL RANGES [...] HCT IS 5% LESS SOURCE FOR DATA: [employer] 1800 OPERATION MANUAL( AUTOMATED BLOOD COUNTS AND [...] >32 mL/min Normal ID Date Data Source [id number] 02/17/2020 03:19:00 PM EDT MEDENT ([facility] Name Value Range Interpretation Code Description Data Annette rce(s) Supporting Document(s) Glu 106 mg/dL 70-110 [facility] NORMAL RANGES Age WBC RBC [...] BUN 81 mg/dL 8-23 Above high normal [facility] ([facility] NORMAL RANGES [...] HCT IS 5% LESS SOURCE FOR DATA: [employer] 1800 OPERATION MANUAL( AUTOMATED BLOOD COUNTS AND [...] HCT IS 5% LESS SOURCE FOR DATA: [employer] 1800 OPERATION MANUAL( AUTOMATED BLOOD COUNTS AND [...] >32 mL/min Normal BUN/Creatinine Ratio 41.9 Calc [facility] ([facility] NORMAL RANGES Age WBC [...] HCT IS 5% LESS SOURCE FOR DATA: [employer] 1800 OPERATION MANUAL( AUTOMATED BLOOD COUNTS AND [...] Na 134 mmol/L 136-145 Below low normal [facility] ( [facility] [...] HCT IS 5% LESS SOURCE FOR DATA: [employer] 1800 OPERATION MANUAL( AUTOMATED BLOOD COUNTS AND [...] >32 mL/min Normal K 3.5 mmol/L 3.5-5.1 [facility] ([facility] NORMAL RANGES Age WBC [...] HCT IS 5% LESS SOURCE FOR DATA: [employer] 1800 OPERATION MANUAL( AUTOMATED BLOOD COUNTS AND [...] >32 mL/min Normal CA 9.9 mg/dL 8.6-10.2 MEDENT ([facility], [...] HCT IS 5% LESS SOURCE FOR DATA: [employer] 1800 OPERATION MANUAL( AUTOMATED BLOOD COUNTS AND [...] CL 89.1 mmol/L 98.0-107.0 Below low normal MEDENT ([facility] NORMAL RANGES Age WBC RBC [...] HCT IS 5% LESS SOURCE FOR DATA: [employer] 1800 OPERATION MANUAL( AUTOMATED BLOOD COUNTS AND [...] >32 mL/min Normal Co2 28.1 mmol/L 22.0-29.0 [facility] ([facility] NORMAL RANGES Age WBC RBC HGB [...] HCT IS 5% LESS SOURCE FOR DATA: [employer] 1800 OPERATION MANUAL( AUTOMATED BLOOD COUNTS AND [...] >32 mL/min Normal A/G Ratio 1.4 Calc [facility] ([facility] NORMAL RANGES Age [...] HCT IS 5% LESS SOURCE FOR DATA: [employer] 1800 OPERATION MANUAL( AUTOMATED BLOOD COUNTS AND [...] >32 mL/min Normal Alb 4.4 g/dL 3.5-5.2 [facility] ([facility] NORMAL RANGES Age WBC RBC HGB HCT MCV PLT Adult M 4.1-10.9 4.20-6.30 12.0-18.0 37.0-51.0 80- 140-440 Adult F 4.1-10.9 4.04-5.48 12.0-18.0 37.0-51.0 [...] >32 mL/min Normal TP 7.6 g/dL 6.6-8.7 [facility] ([facility] NORMAL RANGES Age WBC RBC [...] HCT IS 5% LESS SOURCE FOR DATA: [employer] 1800 OPERATION MANUAL( AUTOMATED BLOOD COUNTS AND [...] mL/min Normal Globulin 3.2 Calc MEDENT ([facility] NORMAL RANGES Age [...] HCT IS 5% LESS SOURCE FOR DATA: [employer] 1800 OPERATION MANUAL( AUTOMATED BLOOD COUNTS AND [...] >32 mL/min Normal Alp 82.2 U/L 40-129 LILLIAN ([facility] NORMAL RANGES Age [...] HCT IS 5% LESS SOURCE FOR DATA: [employer] 1800 OPERATION MANUAL( AUTOMATED BLOOD COUNTS AND [...] mL/min Normal Alt (SGPT) 9 U/L 0-41 [facility] ([facility] NORMAL RANGES Age [...] HCT IS 5% LESS SOURCE FOR DATA: [employer] 1800 OPERATION MANUAL( AUTOMATED BLOOD COUNTS AND [...] >32 mL/min Normal Tbili 0.84 mg/dL 0.0-1.2 [facility] ([facility] NORMAL RANGES Age [...] HCT IS 5% LESS SOURCE FOR DATA: [employer] 1800 OPERATION MANUAL( AUTOMATED BLOOD COUNTS AND [...] mL/min Normal Ast (Sgot) 22 U/L 0-40 [facility] [facility] NORMAL RANGES Age WBC [...] HCT IS 5% LESS SOURCE FOR DATA: [employer] 1800 OPERATION MANUAL( AUTOMATED BLOOD COUNTS AND [...] mL/min Normal Osmolality-Calculated 293.2 Calc MED ENT ([facility] NORMAL RANGES Age [...] HCT IS 5% LESS SOURCE FOR DATA: [employer] 1800 OPERATION MANUAL( AUTOMATED BLOOD COUNTS AND [...] >32 mL/min Normal Anion Gap 20 mmol/L [facility] NORMAL RANGES Age WBC RBC [...] HCT IS 5% LESS SOURCE FOR DATA: [employer] 1800 OPERATION MANUAL( AUTOMATED BLOOD COUNTS AND [...] mL/min Normal eGFR 38 # MEDENT ( [facility] NORMAL RANGES Age WBC RBC [...] HCT IS 5% LESS SOURCE FOR DATA: [employer] 1800 OPERATION MANUAL( AUTOMATED BLOOD COUNTS AND [...] and above >32 mL/min Normal eGFR Non-Afr. Equatorial [place]an 33 # MEDENT ([facility] [...] HCT IS 5% LESS SOURCE FOR DATA: [employer] 1800 OPERATION MANUAL( AUTOMATED BLOOD COUNTS AND [...] >32 mL/min Normal ID Date Data Source [id number] 02/10/2020 10:05:00 AM EDT MEDENT ([facility]) Name Value Range Interpretation Code Description Data Annette rce(s) Supporting Document(s) Prothrombin Time 25.5 s 12.5-14.3 MEDENT (Cardi ology [facility]) Inr 2.26 MEDENT (Cardiology A [facility]) THERAPUTIC HUMAN INR VALUES INDICATIONS NORMAL RANGES PROPHYLAXIS/TREATMENT OF: VENOUS THROMBOSIS 2.0-3.0 PULMONARY EMBOLISM 2.0-3.0 PREVENTION OF SYSTEMIC EMBOLISM FROM: TISSUE HEART VALVES 2.0-3.0 ACUTE MYOCARDIAL INFARCTION 2.0-3.0 VALVULAR HEART DISEASE 2.0-3.0 ATRIAL FIBRILLATION 2.0-3.0 MECHANICAL VALVES(HIGH RISK) 2.5-3.5 RECURRENT MYOCARDIAL INFARCTION 2.5-3.5 ID Date Data Source [id number] 02/10/2020 10:05:00 AM EDT MEDENT ([facility] Name Value Range Interpretation Code Description Data Annette rce(s) Supporting Document(s) Prothrombin Time 25.5 s 12.5-14.3 Above high normal M EDENT ([facility] Inr 2.26 Normal (applies to non-numeric resul ts) MEDENT ([facility] THERAPUTIC HUMAN INR VALUES INDICATIONS NORMAL RANGES PROPHYLAXIS/TREATMENT OF: VENOUS THROMBOSIS 2.0-3.0 PULMONARY EMBOLISM 2.0-3.0 PREVENTION OF SYSTEMIC EMBOLISM FROM: TISSUE HEART VALVES 2.0-3.0 ACUTE MYOCARDIAL INFARCTION 2.0-3.0 VALVULAR HEART DISEASE 2.0-3.0 ATRIAL FIBRILLATION 2.0-3.0 MECHANICAL VALVES(HIGH RISK) 2.5-3.5 RECURRENT MYOCARDIAL INFARCTION 2.5-3.5 ID Date Data Source [id number] 01/12/2020 08:57:00 AM EDT MEDENT ([facility]) Name Value Range Interpretation Code Description Data Annette rce(s) Supporting Document(s) Prothrombin Time 34.0 s 12.5-14.3 MED[facility] ([facility]) Inr 3.26 MEDENT (Cardiology A [facility]) THERAPUTIC HUMAN INR VALUES INDICATIONS NORMAL RANGES PROPHYLAXIS/TREATMENT OF: VENOUS THROMBOSIS 2.0-3.0 PULMONARY EMBOLISM 2.0-3.0 PREVENTION OF SYSTEMIC EMBOLISM FROM: TISSUE HEART VALVES 2.0-3.0 ACUTE MYOCARDIAL INFARCTION 2.0-3.0 VALVULAR HEART DISEASE 2.0-3.0 ATRIAL FIBRILLATION 2.0-3.0 MECHANICAL VALVES(HIGH RISK) 2.5-3.5 RECURRENT MYOCARDIAL INFARCTION 2.5-3.5 ID Date Data Source [id number] 01/12/2020 08:57:00 AM EDT MEDENT ([facility] Name Value Range Interpretation Code Description Data Annette rce(s) Supporting Document(s) Prothrombin Time 34.0 s 12.5-14.3 Above high normal M EDENT ([facility] Inr 3.26 Normal (applies to non-numeric resul ts) MEDENT ([facility] THERAPUTIC HUMAN INR VALUES INDICATIONS NORMAL RANGES PROPHYLAXIS/TREATMENT OF: VENOUS THROMBOSIS 2.0-3.0 PULMONARY EMBOLISM 2.0-3.0 PREVENTION OF SYSTEMIC EMBOLISM FROM: TISSUE HEART VALVES 2.0-3.0 ACUTE MYOCARDIAL INFARCTION 2.0-3.0 VALVULAR HEART DISEASE 2.0-3.0 ATRIAL FIBRILLATION 2.0-3.0 MECHANICAL VALVES(HIGH RISK) 2.5-3.5 RECURRENT MYOCARDIAL INFARCTION 2.5-3.5 ID Date Data Source [id number] 12/30/2019 02:49:00 PM EDT LILLIAN ([facility] Name Value Range Interpretation Code Description Data Annette rce(s) Supporting Document(s) Glu 96 mg/dL 70-110 LILLIAN ([facility] marcia [facility] NORMAL RANGES Age WBC RBC HGB [...] HCT IS 5% LESS SOURCE FOR DATA: [employer] 1800 OPERATION MANUAL( AUTOMATED BLOOD COUNTS AND [...] BUN 31 mg/dL 8-23 Above high normal [facility] ([facility] NORMAL RANGES Age WBC [...] HCT IS 5% LESS SOURCE FOR DATA: [employer] 1800 OPERATION MANUAL( AUTOMATED BLOOD COUNTS AND [...] HCT IS 5% LESS SOURCE FOR DATA: [employer] 1800 OPERATION MANUAL( AUTOMATED BLOOD COUNTS [...] above >32 mL/min Normal BUN/Creatinine Ratio 23.0 CALC Neema ([facility] NORMAL RANGES Age [...] HCT IS 5% LESS SOURCE FOR DATA: [employer] 1800 OPERATION MANUAL( AUTOMATED BLOOD COUNTS AND [...] >32 mL/min Normal CA 8.6 mg/dL 8.6-10.2 [facility] NORMAL RANGES Age [...] HCT IS 5% LESS SOURCE FOR DATA: [employer] 1800 OPERATION MANUAL( AUTOMATED BLOOD COUNTS AND [...] >32 mL/min Normal Co2 23.0 mmol/L 22.0-29.0 [facility] ([facility] NORMAL RANGES Age WBC [...] HCT IS 5% LESS SOURCE FOR DATA: [employer] 1800 OPERATION MANUAL( AUTOMATED BLOOD COUNTS AND [...] >32 mL/min Normal Na 139 mmol/L 136-145 [facility] ([facility] NORMAL RANGES Age [...] HCT IS 5% LESS SOURCE FOR DATA: [employer] 1800 OPERATION MANUAL( AUTOMATED BLOOD COUNTS AND [...] >32 mL/min Normal K 4.4 mmol/L 3.5-5.1 MEDRENATA ([facility] NORMAL RANGES Age [...] HCT IS 5% LESS SOURCE FOR DATA: [employer] 1800 OPERATION MANUAL( AUTOMATED BLOOD COUNTS AND [...] >32 mL/min Normal CL 105.2 mmol/L 98.0-107.0 [facility] ([facility] NORMAL RANGES Age WBC [...] HCT IS 5% LESS SOURCE FOR DATA: [employer] 1800 OPERATION MANUAL( AUTOMATED BLOOD COUNTS AND [...] >32 mL/min Normal Anion Gap 15 mmol/L [facility] NORMAL RANGES Age WBC RBC [...] HCT IS 5% LESS SOURCE FOR DATA: [employer] 1800 OPERATION MANUAL( AUTOMATED BLOOD COUNTS AND [...] mL/min Normal eGFR 55 # MEDENT ( [facility] CKD-EPI eGFR Non-Afr. [place]an 47 # MEDRENATA ([facility] CKD-EPI ID Date Data Source [id number] 12/30/2019 02:49:00 PM EDT LILLIAN ([facility] Name Value Range Interpretation Code Description Data Annette rce(s) Supporting Document(s) WBC 6.7 10E3/uL 4.1-10.9 LILLIAN ([facility] NORMAL RANGES Age WBC [...] HCT IS 5% LESS SOURCE FOR DATA: [employer] 1800 OPERATION MANUAL( AUTOMATED BLOOD COUNTS AND [...] RBC 3.50 10E6/uL 4.20-6.30 Below low normal [facility] ([facility] NORMAL RANGES Age [...] HCT IS 5% LESS SOURCE FOR DATA: [employer] 1800 OPERATION MANUAL( AUTOMATED BLOOD COUNTS AND [...] HGB 11.8 g/dL 12.0-18.0 Below low normal [facility] ( [facility] [...] HCT IS 5% LESS SOURCE FOR DATA: [employer] 1800 OPERATION MANUAL( AUTOMATED BLOOD COUNTS AND [...] HCT 34.8 % 37.0-51.0 Below low normal [facility] ( [facility] [...] HCT IS 5% LESS SOURCE FOR DATA: [employer] 1800 OPERATION MANUAL( AUTOMATED BLOOD COUNTS AND [...] HCT IS 5% LESS SOURCE FOR DATA: [employer] 1800 OPERATION MANUAL( AUTOMATED BLOOD COUNTS AND [...] MCH 33.7 pg 26.0-32.0 Above high normal [facility] ([facility] NORMAL [...] HCT IS 5% LESS SOURCE FOR DATA: [employer] 1800 OPERATION MANUAL( AUTOMATED BLOOD COUNTS AND [...] >32 mL/min Normal MCHC 33.9 g/dL 31.0-36.0 [facility] ([facility] [...] HCT IS 5% LESS SOURCE FOR DATA: [employer] 1800 OPERATION MANUAL( AUTOMATED BLOOD COUNTS [...] >32 mL/min Normal PLT 157 10E3/uL 140-440 [facility] ([facility] NORMAL RANGES Age WBC RBC HGB [...] HCT IS 5% LESS SOURCE FOR DATA: [employer] 1800 OPERATION MANUAL( AUTOMATED BLOOD COUNTS AND [...] RDW-CV 14.8 % 11.5-14.5 Above high normal [facility] ([facility] NORMAL RANGES Age [...] HCT IS 5% LESS SOURCE FOR DATA: [employer] 1800 OPERATION MANUAL( AUTOMATED BLOOD COUNTS AND [...] >32 mL/min Normal Neut% 75.8 % 37.0-92.0 [facility] ([facility] NORMAL RANGES [...] HCT IS 5% LESS SOURCE FOR DATA: [employer] 1800 OPERATION MANUAL( AUTOMATED BLOOD COUNTS [...] Lym% 9.4 % 10.0-58.5 Below low normal [facility] ( [facility] NORMAL RANGES Age [...] HCT IS 5% LESS SOURCE FOR DATA: [employer] 1800 OPERATION MANUAL( AUTOMATED BLOOD COUNTS AND [...] >32 mL/min Normal MXD% 14.8 % 0.1-24.0 [facility] ([facility] NORMAL RANGES [...] HCT IS 5% LESS SOURCE FOR DATA: [employer] 1800 OPERATION MANUAL( AUTOMATED BLOOD COUNTS AND [...] >32 mL/min Normal Lym# 0.6 10E3/uL 0.6-4.1 [facility] ([facility] NORMAL RANGES Age WBC [...] HCT IS 5% LESS SOURCE FOR DATA: [employer] 1800 OPERATION MANUAL( AUTOMATED BLOOD COUNTS AND [...] >32 mL/min Normal Neut# 5.1 % 2.0-7.8 [facility] ([facility] [...] HCT IS 5% LESS SOURCE FOR DATA: [employer] 1800 OPERATION MANUAL( AUTOMATED BLOOD COUNTS AND [...] mL/min Normal MXD# 1.0 10E3/uL 0.0-1.8 LILLIAN ([facility] NORMAL RANGES Age WBC [...] HCT IS 5% LESS SOURCE FOR DATA: [employer] 1800 OPERATION MANUAL( AUTOMATED BLOOD COUNTS AND [...] >32 mL/min Normal MPV 11.7 fL 9.0-13.0 [facility] ([facility] [...] HCT IS 5% LESS SOURCE FOR DATA: [employer] 1800 OPERATION MANUAL( AUTOMATED BLOOD COUNTS AND [...] >32 mL/min Normal ID Date Data Source [id number] 12/30/2019 01:32:00 PM EDT MEDENT ([facility]i [facility]y [facility]) Name Value Range Interpretation Code Description Data Annette rce(s) Supporting Document(s) White Blood Count 6.7 4.1-10.9 MEDENT (Card iology [facility]) Red Blood Count 3.50 4.20-6.30 MEDENT (Cardio logy [facility]) Platelets 157 140-440 MEDENT (Cardiology A ssociates [facility]) Hemoglobin 11.8 12.0-18.0 MEDENT ([facility]) Hematocrit 34.8 37.0-51.0 MEDENT ([facility]) ID Date Data Source [id number] 12/30/2019 01:32:00 PM EDT MEDENT ([facility]i [facility]) Name Value Range Interpretation Code Description Data Annette rce(s) Supporting Document(s) Calcium [Mass/volume] in Serum or Plasma 8.6 MEDENT ([facility]) Sodium 139 MEDENT (Cardiology A ssociates [facility]) Carbon dioxide, total [Moles/volume] in Serum or Plasma 23.0 MEDENT ([facility]) Chloride [Moles/volume] in Serum or Plasma 105.2 MEDENT ([facility]) Glucose 96 70-110 MEDENT (Cardiology A ssociates [facility]) Potassium [Moles/volume] in Serum or Plasma 4.4 MEDENT ([facility]) Blood Urea Nitrogen 31 8-23 MEDENT (Ca rdiology [facility]) Glomerular filtration rate/1.73 sq M.pre dicted [Volume Rate/Area] in Serum or Plasma by Creatinine-based formula (MDRD) Laboratory test result MEDENT ([facility]) Creatinine 1.4 0.7-1.2 MEDENT ([facility]) ID Date Data Source [id number] 12/25/2019 11:20:00 AM EDT MEDENT ([facility] Name Value Range Interpretation Code Description Data Annette rce(s) Supporting Document(s) Occult Blood Laboratory test result MEDENT ([facility] ID Date Data Source [id number] 12/23/2019 08:23:00 AM EDT MEDENT ([facility]) Name Value Range Interpretation Code Description Data Annette rce(s) Supporting Document(s) Prothrombin Time 22.9 s 11.8-14.0 MED[facility] ([facility]) Inr 1.97 MEDENT (Cardiology A [facility] of [facility]) THERAPUTIC HUMAN INR VALUES INDICATIONS NORMAL RANGES PROPHYLAXIS/TREATMENT OF: VENOUS THROMBOSIS 2.0-3.0 PULMONARY EMBOLISM 2.0-3.0 PREVENTION OF SYSTEMIC EMBOLISM FROM: TISSUE HEART VALVES 2.0-3.0 ACUTE MYOCARDIAL INFARCTION 2.0-3.0 VALVULAR HEART DISEASE 2.0-3.0 ATRIAL FIBRILLATION 2.0-3.0 MECHANICAL VALVES(HIGH RISK) 2.5-3.5 RECURRENT MYOCARDIAL INFARCTION 2.5-3.5 ID Date Data Source [id number] 12/23/2019 08:23:00 AM EDT MEDENT ([facility] Name Value Range Interpretation Code Description Data Annette rce(s) Supporting Document(s) Prothrombin Time 22.9 s 11.8-14.0 Above high normal M EDENT ([facility] Inr 1.97 Normal (applies to non-numeric resul ts) MEDENT ([facility] THERAPUTIC HUMAN INR VALUES INDICATIONS NORMAL RANGES PROPHYLAXIS/TREATMENT OF: VENOUS THROMBOSIS 2.0-3.0 PULMONARY EMBOLISM 2.0-3.0 PREVENTION OF SYSTEMIC EMBOLISM FROM: TISSUE HEART VALVES 2.0-3.0 ACUTE MYOCARDIAL INFARCTION 2.0-3.0 VALVULAR HEART DISEASE 2.0-3.0 ATRIAL FIBRILLATION 2.0-3.0 MECHANICAL VALVES(HIGH RISK) 2.5-3.5 RECURRENT MYOCARDIAL INFARCTION 2.5-3.5 ID Date Data Source [id number] 12/09/2019 03:30:00 PM EDT MEDENT ([facility]) Name Value Range Interpretation Code Description Data Annette rce(s) Supporting Document(s) P T 24.2 MEDENT (Cardiology A [facility]) I N R 2.12 MEDENT (Cardiology A [facility]) ID Date Data Source [id number] 12/09/2019 10:15:00 AM EDT MEDENT ([facility]) Name Value Range Interpretation Code Description Data Annette rce(s) Supporting Document(s) Prothrombin Time 24.2 s 12.5-14.3 MEDENT ([facility]) Inr 2.12 MEDENT ([facility]) THERAPUTIC HUMAN INR VALUES INDICATIONS NORMAL RANGES PROPHYLAXIS/TREATMENT OF: VENOUS THROMBOSIS 2.0-3.0 PULMONARY EMBOLISM 2.0-3.0 PREVENTION OF SYSTEMIC EMBOLISM FROM: TISSUE HEART VALVES 2.0-3.0 ACUTE MYOCARDIAL INFARCTION 2.0-3.0 VALVULAR HEART DISEASE 2.0-3.0 ATRIAL FIBRILLATION 2.0-3.0 MECHANICAL VALVES(HIGH RISK) 2.5-3.5 RECURRENT MYOCARDIAL INFARCTION 2.5-3.5 ID Date Data Source [id number] 11/10/2019 09:30:00 AM EDT MEDENT ([facility]) Name Value Range Interpretation Code Description Data Annette rce(s) Supporting Document(s) Prothrombin Time 27.1 s 11.8-14.0 MEDENT ([facility]) Inr 2.53 MEDENT ([facility]) THERAPUTIC HUMAN INR VALUES INDICATIONS NORMAL RANGES PROPHYLAXIS/TREATMENT OF: VENOUS THROMBOSIS 2.0-3.0 PULMONARY EMBOLISM 2.0-3.0 PREVENTION OF SYSTEMIC EMBOLISM FROM: TISSUE HEART VALVES 2.0-3.0 ACUTE MYOCARDIAL INFARCTION 2.0-3.0 VALVULAR HEART DISEASE 2.0-3.0 ATRIAL FIBRILLATION 2.0-3.0 MECHANICAL VALVES(HIGH RISK) 2.5-3.5 RECURRENT MYOCARDIAL INFARCTION 2.5-3.5 ID Date Data Source [id number] 11/10/2019 09:30:00 AM EDT MEDENT ([facility] Name Value Range Interpretation Code Description Data Annette rce(s) Supporting Document(s) Prothrombin Time 27.1 s 11.8-14.0 Above high normal M EDENT ([facility] Inr 2.53 Normal (applies to non-numeric resul ts) MEDENT ([facility] THERAPUTIC HUMAN INR VALUES INDICATIONS NORMAL RANGES PROPHYLAXIS/TREATMENT OF: VENOUS THROMBOSIS 2.0-3.0 PULMONARY EMBOLISM 2.0-3.0 PREVENTION OF SYSTEMIC EMBOLISM FROM: TISSUE HEART VALVES 2.0-3.0 ACUTE MYOCARDIAL INFARCTION 2.0-3.0 VALVULAR HEART DISEASE 2.0-3.0 ATRIAL FIBRILLATION 2.0-3.0 MECHANICAL VALVES(HIGH RISK) 2.5-3.5 RECURRENT MYOCARDIAL INFARCTION 2.5-3.5 ID Date Data Source [id number] 11/07/2019 09:43:00 AM EDT MEDRENATA ([facility]) Name Value Range Interpretation Code Description Data Annette rce(s) Supporting Document(s) RBC 3.35 10E6/uL 4.20-6.30 [facility] ([facility] y [facility]) NORMAL RANGES Age WBC RBC HGB HCT [...] HCT IS 5% LESS SOURCE FOR DATA: [employer] 1800 OPERATION MANUAL( AUTOMATED BLOOD COUNTS AND [...] 6.4 10E3/uL 4.1-10.9 MEDENT ([facility]) NORMAL RANGES Age WBC RBC HGB HCT [...] HCT IS 5% LESS SOURCE FOR DATA: [employer] 1800 OPERATION MANUAL( AUTOMATED BLOOD COUNTS AND [...] 11.2 g/dL 12.0-18.0 MEDENT ([facility] [place]) NORMAL [...] HCT IS 5% LESS SOURCE FOR DATA: [employer] 1800 OPERATION MANUAL( AUTOMATED BLOOD COUNTS AND [...] 2-19 YEARS EXCLUSIVE. HCT 33.2 % 37.0-51.0 [facility] ([facility]iology A [facility]) NORMAL RANGES Age WBC RBC HGB HCT [...] HCT IS 5% LESS SOURCE FOR DATA: [employer] 1800 OPERATION MANUAL( AUTOMATED BLOOD COUNTS [...] fL 80.0-97.0 MEDENT ([facility]iology [facility]) NORMAL RANGES Age WBC RBC HGB HCT [...] HCT IS 5% LESS SOURCE FOR DATA: [employer] 1800 OPERATION MANUAL( AUTOMATED BLOOD COUNTS AND [...] g/dL 31.0-36.0 MEDENT ([facility]) NORMAL RANGES Age WBC RBC HGB HCT [...] HCT IS 5% LESS SOURCE FOR DATA: [employer] 1800 OPERATION MANUAL( AUTOMATED BLOOD COUNTS AND [...] pg 26.0-32.0 MEDENT ([facility]) NORMAL RANGES Age WBC RBC HGB HCT [...] HCT IS 5% LESS SOURCE FOR DATA: [employer] 1800 OPERATION MANUAL( AUTOMATED BLOOD COUNTS [...] 2-19 YEARS EXCLUSIVE. PLT 173 10E3/uL 140-440 MEDRENATA ([facility]) NORMAL RANGES Age WBC RBC HGB HCT [...] HCT IS 5% LESS SOURCE FOR DATA: [employer] 1800 OPERATION MANUAL( AUTOMATED BLOOD COUNTS AND [...] 2-19 YEARS EXCLUSIVE. Lym% 9.1 % 10.0-58.5 MEDENT ([facility]) NORMAL RANGES Age WBC RBC HGB HCT [...] HCT IS 5% LESS SOURCE FOR DATA: [employer] 1800 OPERATION MANUAL( AUTOMATED BLOOD COUNTS AND [...] 16.0 % 11.5-14.5 MEDENT (Cardiology A [facility]ates [facility]) NORMAL RANGES Age WBC RBC HGB HCT [...] HCT IS 5% LESS SOURCE FOR DATA: [employer] 1800 OPERATION MANUAL( AUTOMATED BLOOD COUNTS AND [...] 0.6 10E3/uL 0.6-4.1 MEDENT ([facility]) NORMAL RANGES Age WBC RBC HGB HCT [...] HCT IS 5% LESS SOURCE FOR DATA: [employer] 1800 OPERATION MANUAL( AUTOMATED BLOOD COUNTS AND [...] % 37.0-92.0 MEDENT ([facility]) NORMAL RANGES Age WBC RBC HGB HCT [...] HCT IS 5% LESS SOURCE FOR DATA: [employer] 1800 OPERATION MANUAL( AUTOMATED BLOOD COUNTS AND [...] % 0.1-24.0 MEDENT ([facility]) NORMAL RANGES Age WBC RBC HGB HCT [...] HCT IS 5% LESS SOURCE FOR DATA: [employer] 1800 OPERATION MANUAL( AUTOMATED BLOOD COUNTS AND [...] Semen by Manual count 4.7 % 2.0-7.8 MEDENT ([facility]) NORMAL RANGES Age WBC RBC HGB HCT [...] HCT IS 5% LESS SOURCE FOR DATA: [employer] 1800 OPERATION MANUAL( AUTOMATED BLOOD COUNTS AND [...] MXD# 1.1 10E3/uL 0.0-1.8 MEDENT ([facility]) NORMAL RANGES Age WBC RBC HGB HCT [...] HCT IS 5% LESS SOURCE FOR DATA: [employer] 1800 OPERATION MANUAL( AUTOMATED BLOOD COUNTS AND [...] Blood by Kathy 10.5 f L 9.0-13.0 [facility] ([facility]) NORMAL RANGES Age WBC RBC HGB HCT [...] HCT IS 5% LESS SOURCE FOR DATA: [employer] 1800 OPERATION MANUAL( AUTOMATED BLOOD COUNTS AND [...] mg/dL 70-110 MEDENT ([facility]) NORMAL RANGES Age WBC RBC HGB HCT [...] HCT IS 5% LESS SOURCE FOR DATA: [employer] 1800 OPERATION MANUAL( AUTOMATED BLOOD COUNTS AND [...] AGED 2-19 YEARS EXCLUSIVE. BUN 28 mg/dL 8-23 [facility] ([facility]iology [facility]) NORMAL RANGES Age WBC RBC HGB HCT [...] HCT IS 5% LESS SOURCE FOR DATA: [employer] 1800 OPERATION MANUAL( AUTOMATED BLOOD COUNTS AND [...] Na 139 mmol/L 136-145 MEDENT ([facility]) NORMAL RANGES Age WBC RBC HGB HCT [...] HCT IS 5% LESS SOURCE FOR DATA: [employer] 1800 OPERATION MANUAL( AUTOMATED BLOOD COUNTS AND [...] mg/dL 0.7-1.2 MEDENT ([facility]) NORMAL RANGES Age WBC RBC HGB HCT [...] HCT IS 5% LESS SOURCE FOR DATA: [employer] 1800 OPERATION MANUAL( AUTOMATED BLOOD COUNTS AND [...] Plasma 22.4 CALC MEDENT ([facility]) NORMAL RANGES Age WBC RBC HGB HCT [...] 3.8 mmol/L 3.5-5.1 MEDENT ([facility]) NORMAL RANGES Age WBC RBC HGB HCT [...] HCT IS 5% LESS SOURCE FOR DATA: [employer] 1800 OPERATION MANUAL( AUTOMATED BLOOD COUNTS AND [...] mmol/L 98.0-107.0 MEDENT ([facility]iolo gy [facility]) NORMAL RANGES Age WBC RBC HGB HCT [...] HCT IS 5% LESS SOURCE FOR DATA: [employer] 1800 OPERATION MANUAL( AUTOMATED BLOOD COUNTS AND [...] 6.8 g/dL 6.6-8.7 MEDENT ([facility]iology A [facility]) NORMAL RANGES Age WBC RBC HGB HCT [...] HCT IS 5% LESS SOURCE FOR DATA: [employer] 1800 OPERATION MANUAL( AUTOMATED BLOOD COUNTS AND [...] 26.8 mmol/L 22.0-29.0 MEDENT ([facility]) NORMAL RANGES Age WBC RBC HGB HCT [...] HCT IS 5% LESS SOURCE FOR DATA: [employer] 1800 OPERATION MANUAL( AUTOMATED BLOOD COUNTS AND [...] 2-19 YEARS EXCLUSIVE. CA 8.5 mg/dL 8.6-10.2 MEDENT ([facility]) NORMAL RANGES Age WBC RBC HGB HCT [...] HCT IS 5% LESS SOURCE FOR DATA: [employer] 1800 OPERATION MANUAL( AUTOMATED BLOOD COUNTS AND [...] 2-19 YEARS EXCLUSIVE. Alb 3.9 g/dL 3.5-5.2 [facility] ([facility]iology A [facility] of [facility]) NORMAL RANGES Age WBC RBC HGB HCT [...] HCT IS 5% LESS SOURCE FOR DATA: [employer] 1800 OPERATION MANUAL( AUTOMATED BLOOD COUNTS [...] HCT IS 5% LESS SOURCE FOR DATA: [employer] 1800 OPERATION MANUAL( AUTOMATED BLOOD COUNTS AND [...] U/L 40-129 [facility] (Cardiology A [facility] of [facility]) NORMAL RANGES Age WBC RBC HGB HCT [...] HCT IS 5% LESS SOURCE FOR DATA: [employer] 1800 OPERATION MANUAL( AUTOMATED BLOOD COUNTS AND [...] Seru m or Plasma 11 U/L 0-41 [facility] ([facility]) NORMAL RANGES Age WBC RBC HGB HCT [...] HCT IS 5% LESS SOURCE FOR DATA: [employer] 1800 OPERATION MANUAL( AUTOMATED BLOOD COUNTS AND [...] calculation 2.9 CALC [facility] ([facility]) NORMAL RANGES Age WBC RBC HGB HCT [...] HCT IS 5% LESS SOURCE FOR DATA: [employer] 1800 OPERATION MANUAL( AUTOMATED BLOOD COUNTS AND [...] EXCLUSIVE. Osmolality-Calculated 284.0 CALC [facility] ([facility]) NORMAL RANGES Age WBC RBC HGB HCT [...] HCT IS 5% LESS SOURCE FOR DATA: [employer] 1800 OPERATION MANUAL( AUTOMATED BLOOD COUNTS [...] in Serum or Plasma 16 U/L 0-40 [facility] ([employer] s of [facility]) NORMAL RANGES Age WBC RBC HGB HCT [...] HCT IS 5% LESS SOURCE FOR DATA: [employer] 1800 OPERATION MANUAL( AUTOMATED BLOOD COUNTS AND [...] 0.55 mg/dL 0.0-1.2 [facility] ([facility]) NORMAL RANGES Age WBC RBC HGB HCT [...] HCT IS 5% LESS SOURCE FOR DATA: [employer] 1800 OPERATION MANUAL( AUTOMATED BLOOD COUNTS AND [...] or Plasma 13 mmol/L [facility] ([facility]) NORMAL RANGES Age WBC RBC HGB HCT [...] HCT IS 5% LESS SOURCE FOR DATA: [employer] 1800 OPERATION MANUAL( AUTOMATED BLOOD COUNTS AND [...] 60 # [facility] ( [facility]) NORMAL RANGES Age WBC RBC HGB HCT [...] HCT IS 5% LESS SOURCE FOR DATA: [employer] 1800 OPERATION MANUAL( AUTOMATED BLOOD COUNTS AND [...] INDIVIDUALA AGED 2-19 YEARS EXCLUSIVE. eGFR Non-Afr. [place] 52 # MED[facility] ([facility]) NORMAL RANGES Age WBC RBC HGB HCT [...] HCT IS 5% LESS SOURCE FOR DATA: [employer] 1800 OPERATION MANUAL( AUTOMATED BLOOD COUNTS AND [...] 2-19 YEARS EXCLUSIVE. Chol 156 mg/dL 0-200 [facility] ([facility] A [facility]) NORMAL RANGES Age WBC RBC HGB HCT [...] HCT IS 5% LESS SOURCE FOR DATA: [employer] 1800 OPERATION MANUAL( AUTOMATED BLOOD COUNTS AND [...] YEARS EXCLUSIVE. LDL_C 97 Calc 75-129 [facility] ([facility]iology A [facility]) NORMAL RANGES Age WBC RBC HGB HCT [...] HCT IS 5% LESS SOURCE FOR DATA: [employer] 1800 OPERATION MANUAL( AUTOMATED BLOOD COUNTS [...] mg/dL 35-200 [facility] ([facility]) NORMAL RANGES Age WBC RBC HGB HCT [...] HCT IS 5% LESS SOURCE FOR DATA: [employer] 1800 OPERATION MANUAL( AUTOMATED BLOOD COUNTS AND [...] Plasma 35 mg/dL 35-55 [facility] ([facility]) NORMAL RANGES Age WBC RBC HGB HCT [...] HCT IS 5% LESS SOURCE FOR DATA: [employer] 1800 OPERATION MANUAL( AUTOMATED BLOOD COUNTS AND [...] 4.4 Calc [facility] (Cardiolo gy [facility]) NORMAL RANGES Age WBC RBC HGB HCT [...] HCT IS 5% LESS SOURCE FOR DATA: [employer] 1800 OPERATION MANUAL( AUTOMATED BLOOD COUNTS [...] 2-19 YEARS EXCLUSIVE. ID Date Data Source [id number] 11/07/2019 09:43:00 AM EDT MED[facility] (Famil y [...] HCT IS 5% LESS SOURCE FOR DATA: [employer] 1800 OPERATION MANUAL( AUTOMATED BLOOD COUNTS AND [...] 2-19 YEARS EXCLUSIVE. Trig 118 mg/dL 35-200 [facility] ([facility] [...] HCT IS 5% LESS SOURCE FOR DATA: [employer] 1800 OPERATION MANUAL( AUTOMATED BLOOD COUNTS AND [...] HCT IS 5% LESS SOURCE FOR DATA: [employer] 1800 OPERATION MANUAL( AUTOMATED BLOOD COUNTS AND [...] 2-19 YEARS EXCLUSIVE. Cho/HDL Ratio 4.4 Calc Neema ([facility] NORMAL RANGES Age WBC RBC HGB [...] HCT IS 5% LESS SOURCE FOR DATA: [employer] 1800 OPERATION MANUAL( AUTOMATED BLOOD COUNTS [...] 2-19 YEARS EXCLUSIVE. ID Date Data Source [id number] 11/07/2019 09:43:00 AM EDT MED[facility] (Famil y [...] HCT IS 5% LESS SOURCE FOR DATA: [employer] 1800 OPERATION MANUAL( AUTOMATED BLOOD COUNTS AND [...] YEARS EXCLUSIVE. Glu 103 mg/dL 70-110 LILLIAN ([facility] NORMAL RANGES [...] HCT IS 5% LESS SOURCE FOR DATA: [employer] 1800 OPERATION MANUAL( AUTOMATED BLOOD COUNTS AND [...] HCT IS 5% LESS SOURCE FOR DATA: [employer] 1800 OPERATION MANUAL( AUTOMATED BLOOD COUNTS AND [...] HCT IS 5% LESS SOURCE FOR DATA: [employer] 1800 OPERATION MANUAL( AUTOMATED BLOOD COUNTS AND [...] 2-19 YEARS EXCLUSIVE. BUN/Creatinine Ratio 22.4 CALC [facility] ([facility] NORMAL RANGES Age [...] HCT IS 5% LESS SOURCE FOR DATA: [employer] 1800 OPERATION MANUAL( AUTOMATED BLOOD COUNTS AND [...] 2-19 YEARS EXCLUSIVE. K 3.8 mmol/L 3.5-5.1 [facility] ([facility] [...] HCT IS 5% LESS SOURCE FOR DATA: [employer] 1800 OPERATION MANUAL( AUTOMATED BLOOD COUNTS AND [...] 2-19 YEARS EXCLUSIVE. CL 103.6 mmol/L 98.0-107.0 MED[facility]ENATA ([facility] NORMAL [...] HCT IS 5% LESS SOURCE FOR DATA: [employer] 1800 OPERATION MANUAL( AUTOMATED BLOOD COUNTS AND [...] 2-19 YEARS EXCLUSIVE. Co2 26.8 mmol/L 22.0-29.0 [facility] ([facility] NORMAL RANGES Age WBC RBC HGB [...] HCT IS 5% LESS SOURCE FOR DATA: [employer] 1800 OPERATION MANUAL( AUTOMATED BLOOD COUNTS AND [...] 2-19 YEARS EXCLUSIVE. TP 6.8 g/dL 6.6-8.7 [facility] ([facility] [...] HCT IS 5% LESS SOURCE FOR DATA: [employer] 1800 OPERATION MANUAL( AUTOMATED BLOOD COUNTS AND [...] HCT IS 5% LESS SOURCE FOR DATA: [employer] 1800 OPERATION MANUAL( AUTOMATED BLOOD COUNTS AND [...] 2-19 YEARS EXCLUSIVE. Alb 3.9 g/dL 3.5-5.2 [facility] ([facility] [...] HCT IS 5% LESS SOURCE FOR DATA: [employer] 1800 OPERATION MANUAL( AUTOMATED BLOOD COUNTS [...] HCT IS 5% LESS SOURCE FOR DATA: [employer] 1800 OPERATION MANUAL( AUTOMATED BLOOD COUNTS AND [...] HCT IS 5% LESS SOURCE FOR DATA: [employer] 1800 OPERATION MANUAL( AUTOMATED BLOOD COUNTS AND [...] AGED 2-19 YEARS EXCLUSIVE. Globulin 2.9 CALC [facility] ([facility] [...] HCT IS 5% LESS SOURCE FOR DATA: [employer] 1800 OPERATION MANUAL( AUTOMATED BLOOD COUNTS [...] YEARS EXCLUSIVE. Alt (SGPT) 11 U/L 0-41 [facility] NORMAL RANGES Age WBC [...] HCT IS 5% LESS SOURCE FOR DATA: [employer] 1800 OPERATION MANUAL( AUTOMATED BLOOD COUNTS AND [...] 2-19 YEARS EXCLUSIVE. Tbili 0.55 mg/dL 0.0-1.2 [facility] ([facility] [...] HCT IS 5% LESS SOURCE FOR DATA: [employer] 1800 OPERATION MANUAL( AUTOMATED BLOOD COUNTS AND [...] YEARS EXCLUSIVE. Ast (Sgot) 16 U/L 0-40 [facility] ([facility] NORMAL RANGES Age WBC [...] HCT IS 5% LESS SOURCE FOR DATA: [employer] 1800 OPERATION MANUAL( AUTOMATED BLOOD COUNTS [...] HCT IS 5% LESS SOURCE FOR DATA: [employer] 1800 OPERATION MANUAL( AUTOMATED BLOOD COUNTS AND [...] 2-19 YEARS EXCLUSIVE. Anion Gap 13 mmol/L [facility] ([facility] [...] HCT IS 5% LESS SOURCE FOR DATA: [employer] 1800 OPERATION MANUAL( AUTOMATED BLOOD COUNTS AND [...] HCT IS 5% LESS SOURCE FOR DATA: [employer] 1800 OPERATION MANUAL( AUTOMATED BLOOD COUNTS [...] INDIVIDUALA AGED 2-19 YEARS EXCLUSIVE. eGFR Non-Afr. [place] 52 # [facility] ([facility] [...] HCT IS 5% LESS SOURCE FOR DATA: [employer] 1800 OPERATION MANUAL( AUTOMATED BLOOD COUNTS AND [...] 2-19 YEARS EXCLUSIVE. ID Date Data Source [id number] 11/07/2019 09:43:00 AM EDT [facility] ([facility] Name Value Range Interpretation Code Description Data Annette rce(s) Supporting Document(s) WBC 6.4 10E3/uL 4.1-10.9 MED[facility]ENATA ([facility] NORMAL RANGES Age WBC [...] HCT IS 5% LESS SOURCE FOR DATA: [employer] 1800 OPERATION MANUAL( AUTOMATED BLOOD COUNTS AND [...] RBC 3.35 10E6/uL 4.20-6.30 Below low normal [facility] ([facility] NORMAL [...] HCT IS 5% LESS SOURCE FOR DATA: [employer] 1800 OPERATION MANUAL( AUTOMATED BLOOD COUNTS AND [...] HCT IS 5% LESS SOURCE FOR DATA: [employer] 1800 OPERATION MANUAL( AUTOMATED BLOOD COUNTS AND [...] HCT 33.2 % 37.0-51.0 Below low normal [facility] ( [facility] NORMAL RANGES Age [...] HCT IS 5% LESS SOURCE FOR DATA: [employer] 1800 OPERATION MANUAL( AUTOMATED BLOOD COUNTS AND [...] MCV 99.1 fL 80.0-97.0 Above high normal [facility] ([facility] NORMAL [...] HCT IS 5% LESS SOURCE FOR DATA: [employer] 1800 OPERATION MANUAL( AUTOMATED BLOOD COUNTS AND [...] HCT IS 5% LESS SOURCE FOR DATA: [employer] 1800 OPERATION MANUAL( AUTOMATED BLOOD COUNTS AND [...] 2-19 YEARS EXCLUSIVE. MCHC 33.7 g/dL 31.0-36.0 [facility] ([facility] [...] RDW-CV 16.0 % 11.5-14.5 Above high normal [facility] ([facility] NORMAL [...] HCT IS 5% LESS SOURCE FOR DATA: [employer] 1800 OPERATION MANUAL( AUTOMATED BLOOD COUNTS AND [...] 2-19 YEARS EXCLUSIVE. PLT 173 10E3/uL 140-440 [facility] ([facility] NORMAL RANGES Age WBC [...] HCT IS 5% LESS SOURCE FOR DATA: [employer] 1800 OPERATION MANUAL( AUTOMATED BLOOD COUNTS AND [...] 2-19 YEARS EXCLUSIVE. MXD% 17.8 % 0.1-24.0 [facility] ([facility] [...] HCT IS 5% LESS SOURCE FOR DATA: [employer] 1800 OPERATION MANUAL( AUTOMATED BLOOD COUNTS AND [...] HCT IS 5% LESS SOURCE FOR DATA: [employer] 1800 OPERATION MANUAL( AUTOMATED BLOOD COUNTS AND [...] Lym% 9.1 % 10.0-58.5 Below low normal [facility] ( [facility] NORMAL RANGES Age WBC RBC [...] HCT IS 5% LESS SOURCE FOR DATA: [employer] 1800 OPERATION MANUAL( AUTOMATED BLOOD COUNTS AND [...] 2-19 YEARS EXCLUSIVE. Lym# 0.6 10E3/uL 0.6-4.1 MED[facility] ([facility] [employer] NORMAL RANGES Age WBC RBC HGB [...] HCT IS 5% LESS SOURCE FOR DATA: [employer] 1800 OPERATION MANUAL( AUTOMATED BLOOD COUNTS AND [...] 2-19 YEARS EXCLUSIVE. Neut# 4.7 % 2.0-7.8 [facility] ([facility] [...] HCT IS 5% LESS SOURCE FOR DATA: [employer] 1800 OPERATION MANUAL( AUTOMATED BLOOD COUNTS AND [...] YEARS EXCLUSIVE. MXD# 1.1 10E3/uL 0.0-1.8 LILLIAN ([facility] NORMAL RANGES Age WBC [...] HCT IS 5% LESS SOURCE FOR DATA: [employer] 1800 OPERATION MANUAL( AUTOMATED BLOOD COUNTS AND [...] 2-19 YEARS EXCLUSIVE. MPV 10.5 fL 9.0-13.0 [facility] ([facility] NORMAL RANGES [...] HCT IS 5% LESS SOURCE FOR DATA: [employer] 1800 OPERATION MANUAL( AUTOMATED BLOOD COUNTS [...] 2-19 YEARS EXCLUSIVE. ID Date Data Source [id number] 10/27/2019 09:17:00 AM EDT MED[facility]ATA ([facility]) Name Value Range Interpretation Code Description Data Annette rce(s) Supporting Document(s) Prothrombin Time 30.3 s 11.8-14.0 [facility] ([facility]) Inr 2.91 [facility] (Cardiology A [facility]) THERAPUTIC HUMAN INR VALUES INDICATIONS NORMAL RANGES PROPHYLAXIS/TREATMENT OF: VENOUS THROMBOSIS 2.0-3.0 PULMONARY EMBOLISM 2.0-3.0 PREVENTION OF SYSTEMIC EMBOLISM FROM: TISSUE HEART VALVES 2.0-3.0 ACUTE MYOCARDIAL INFARCTION 2.0-3.0 VALVULAR HEART DISEASE 2.0-3.0 ATRIAL FIBRILLATION 2.0-3.0 MECHANICAL VALVES(HIGH RISK) 2.5-3.5 RECURRENT MYOCARDIAL INFARCTION 2.5-3.5 ID Date Data Source [id number] 10/27/2019 09:17:00 AM EDT MED[facility] ([facility] Name Value Range Interpretation Code Description Data Annette rce(s) Supporting Document(s) Prothrombin Time 30.3 s 11.8-14.0 Above high normal M EDENT ([facility] Inr 2.91 Normal (applies to non-numeric resul ts) [facility] ([facility] THERAPUTIC HUMAN INR VALUES INDICATIONS NORMAL RANGES PROPHYLAXIS/TREATMENT OF: VENOUS THROMBOSIS 2.0-3.0 PULMONARY EMBOLISM 2.0-3.0 PREVENTION OF SYSTEMIC EMBOLISM FROM: TISSUE HEART VALVES 2.0-3.0 ACUTE MYOCARDIAL INFARCTION 2.0-3.0 VALVULAR HEART DISEASE 2.0-3.0 ATRIAL FIBRILLATION 2.0-3.0 MECHANICAL VALVES(HIGH RISK) 2.5-3.5 RECURRENT MYOCARDIAL INFARCTION 2.5-3.5 ID Date Data Source [id number] 10/20/2019 08:58:00 AM EDT [facility] ([facility]) Name Value Range Interpretation Code Description Data Annette rce(s) Supporting Document(s) Prothrombin Time 24.8 s 11.8-14.0 [facility] ([facility]) Inr 2.26 [facility] ([facility] THERAPUTIC HUMAN INR VALUES INDICATIONS NORMAL RANGES PROPHYLAXIS/TREATMENT OF: VENOUS THROMBOSIS 2.0-3.0 PULMONARY EMBOLISM 2.0-3.0 PREVENTION OF SYSTEMIC EMBOLISM FROM: TISSUE HEART VALVES 2.0-3.0 ACUTE MYOCARDIAL INFARCTION 2.0-3.0 VALVULAR HEART DISEASE 2.0-3.0 ATRIAL FIBRILLATION 2.0-3.0 MECHANICAL VALVES(HIGH RISK) 2.5-3.5 RECURRENT MYOCARDIAL INFARCTION 2.5-3.5 ID Date Data Source [id number] 10/20/2019 08:58:00 AM EDT [facility] ([facility] Name Value Range Interpretation Code Description Data Annette rce(s) Supporting Document(s) Inr 2.26 Normal (applies to non-numeric resul ts) [facility] ([facility] THERAPUTIC HUMAN INR VALUES INDICATIONS NORMAL RANGES PROPHYLAXIS/TREATMENT OF: VENOUS THROMBOSIS 2.0-3.0 PULMONARY EMBOLISM 2.0-3.0 PREVENTION OF SYSTEMIC EMBOLISM FROM: TISSUE HEART VALVES 2.0-3.0 ACUTE MYOCARDIAL INFARCTION 2.0-3.0 VALVULAR HEART DISEASE 2.0-3.0 ATRIAL FIBRILLATION 2.0-3.0 MECHANICAL VALVES(HIGH RISK) 2.5-3.5 RECURRENT MYOCARDIAL INFARCTION 2.5-3.5 Prothrombin Time 24.8 s 11.8-14.0 Above high normal M EDENT ([facility] ID Date Data Source [id number] 10/14/2019 09:55:00 AM EDT MED[facility] ([facility] Name Value Range Interpretation Code Description Data Annette rce(s) Supporting Document(s) Prothrombin Time 48.7 s 11.8-14.0 Above high normal M EDENT ([facility] Inr 5.26 Above upper panic limits MED[facility] ([facility] THERAPUTIC HUMAN INR VALUES INDICATIONS NORMAL RANGES PROPHYLAXIS/TREATMENT OF: VENOUS THROMBOSIS 2.0-3.0 PULMONARY EMBOLISM 2.0-3.0 PREVENTION OF SYSTEMIC EMBOLISM FROM: TISSUE HEART VALVES 2.0-3.0 ACUTE MYOCARDIAL INFARCTION 2.0-3.0 VALVULAR HEART DISEASE 2.0-3.0 ATRIAL FIBRILLATION 2.0-3.0 MECHANICAL VALVES(HIGH RISK) 2.5-3.5 RECURRENT MYOCARDIAL INFARCTION 2.5-3.5 ID Date Data Source [id number] 10/14/2019 09:55:00 AM EDT [facility] Name Value Range Interpretation Code Description Data Annette rce(s) Supporting Document(s) Prothrombin Time 48.7 s 11.8-14.0 [facility] (Cardi ology [facility]) Inr 5.26 Above upper panic limits MEDEN T ([facility]) THERAPUTIC HUMAN INR VALUES INDICATIONS NORMAL RANGES PROPHYLAXIS/TREATMENT OF: VENOUS THROMBOSIS 2.0-3.0 PULMONARY EMBOLISM 2.0-3.0 PREVENTION OF SYSTEMIC EMBOLISM FROM: TISSUE HEART VALVES 2.0-3.0 ACUTE MYOCARDIAL INFARCTION 2.0-3.0 VALVULAR HEART DISEASE 2.0-3.0 ATRIAL FIBRILLATION 2.0-3.0 MECHANICAL VALVES(HIGH RISK) 2.5-3.5 RECURRENT MYOCARDIAL INFARCTION 2.5-3.5 ID Date Data Source [id number] 09/29/2019 10:58:00 AM EDT MED[facility] ([facility] Name Value Range Interpretation Code Description Data Annette rce(s) Supporting Document(s) Prothrombin Time 41.0 s 11.8-14.0 Above high normal M EDENT ([facility] Inr 4.24 Normal (applies to non-numeric resul ts) [facility] ([facility] THERAPUTIC HUMAN INR VALUES INDICATIONS NORMAL RANGES PROPHYLAXIS/TREATMENT OF: VENOUS THROMBOSIS 2.0-3.0 PULMONARY EMBOLISM 2.0-3.0 PREVENTION OF SYSTEMIC EMBOLISM FROM: TISSUE HEART VALVES 2.0-3.0 ACUTE MYOCARDIAL INFARCTION 2.0-3.0 VALVULAR HEART DISEASE 2.0-3.0 ATRIAL FIBRILLATION 2.0-3.0 MECHANICAL VALVES(HIGH RISK) 2.5-3.5 RECURRENT MYOCARDIAL INFARCTION 2.5-3.5 ID Date Data Source [id number] 09/29/2019 10:58:00 AM EDT [facility] Name Value Range Interpretation Code Description Data Annette rce(s) Supporting Document(s) Prothrombin Time 41.0 s 11.8-14.0 [facility] (Cardi ology [facility]) Inr 4.24 [facility] ([facility] THERAPUTIC HUMAN INR VALUES INDICATIONS NORMAL RANGES PROPHYLAXIS/TREATMENT OF: VENOUS THROMBOSIS 2.0-3.0 PULMONARY EMBOLISM 2.0-3.0 PREVENTION OF SYSTEMIC EMBOLISM FROM: TISSUE HEART VALVES 2.0-3.0 ACUTE MYOCARDIAL INFARCTION 2.0-3.0 VALVULAR HEART DISEASE 2.0-3.0 ATRIAL FIBRILLATION 2.0-3.0 MECHANICAL VALVES(HIGH RISK) 2.5-3.5 RECURRENT MYOCARDIAL INFARCTION 2.5-3.5 ID Date Data Source [id number] 09/04/2019 03:40:00 PM EDT [facility] ([facility]i [facility]y [facility]) Name Value Range Interpretation Code Description Data Annette rce(s) Supporting Document(s) Magnesium Level 2.17 [facility] ([facility] [place]) ID Date Data Source [id number] 09/04/2019 03:40:00 PM EDT [facility] ([facility]i [facility]y [facility]) Name Value Range Interpretation Code Description Data Annette rce(s) Supporting Document(s) White Blood Count 8.1 4.3-10.9 [facility] (Card iology [facility]) Hemoglobin 12.8 13.0-17.0 [facility] ([facility]) Platelets 256 130-400 [facility] ([facility]iology [facility]) Red Blood Count 3.93 4.70-6.20 [facility] ([facility]io logy [facility]) Hematocrit 38.3 39.0-50.0 [facility] ([facility] [place]) ID Date Data Source [id number] 09/04/2019 03:40:00 PM EDT [facility] ([facility]i [facility]y [facility]) Name Value Range Interpretation Code Description Data Annette rce(s) Supporting Document(s) Blood Urea Nitrogen 26.1 5-21 MED[facility] (Ca rdiology [facility]) Glucose 108 70-100 MED[facility] (Cardiology A ssociates [...] 32.8 20-32 [facility] ([facility]iol ogy [facility]) Phosphorus 2.83 [facility] ([facility] [place]) Calcium 8.15 8.4-10.4 [facility] ([facility] [place]) Albumin 3.9 3.5-4.7 [facility] ([facility] [place]) ID Date Data Source [id number] 09/03/2019 09:35:00 AM EDT [facility] ([facility] Name Value Range Interpretation Code Description Data Annette rce(s) Supporting Document(s) Prothrombin Time 29.0 s 11.8-14.0 Above high normal M EDENT ([facility] Inr 2.75 Normal (applies to non-numeric resul ts) [facility] ([facility] THERAPUTIC HUMAN INR VALUES INDICATIONS NORMAL RANGES PROPHYLAXIS/TREATMENT OF: VENOUS THROMBOSIS 2.0-3.0 PULMONARY EMBOLISM 2.0-3.0 PREVENTION OF SYSTEMIC EMBOLISM FROM: TISSUE HEART VALVES 2.0-3.0 ACUTE MYOCARDIAL INFARCTION 2.0-3.0 VALVULAR HEART DISEASE 2.0-3.0 ATRIAL FIBRILLATION 2.0-3.0 MECHANICAL VALVES(HIGH RISK) 2.5-3.5 RECURRENT MYOCARDIAL INFARCTION 2.5-3.5 ID Date Data Source [id number] 09/03/2019 09:35:00 AM EDT MED[facility] ([facility]) Name Value Range Interpretation Code Description Data Annette rce(s) Supporting Document(s) Prothrombin Time 29.0 s 11.8-14.0 [facility] ([facility]) Inr 2.75 [facility] (Cardiology A [facility]) THERAPUTIC HUMAN INR VALUES INDICATIONS NORMAL RANGES PROPHYLAXIS/TREATMENT OF: VENOUS THROMBOSIS 2.0-3.0 PULMONARY EMBOLISM 2.0-3.0 PREVENTION OF SYSTEMIC EMBOLISM FROM: TISSUE HEART VALVES 2.0-3.0 ACUTE MYOCARDIAL INFARCTION 2.0-3.0 VALVULAR HEART DISEASE 2.0-3.0 ATRIAL FIBRILLATION 2.0-3.0 MECHANICAL VALVES(HIGH RISK) 2.5-3.5 RECURRENT MYOCARDIAL INFARCTION 2.5-3.5 ID Date Data Source [id number] 08/21/2019 09:15:00 AM EDT MED[facility] ([facility] Name Value Range Interpretation Code Description Data Annette rce(s) Supporting Document(s) Inr 2.26 Normal (applies to non-numeric resul ts) [facility] ([facility] THERAPUTIC HUMAN INR VALUES INDICATIONS NORMAL RANGES PROPHYLAXIS/TREATMENT OF: VENOUS THROMBOSIS 2.0-3.0 PULMONARY EMBOLISM 2.0-3.0 PREVENTION OF SYSTEMIC EMBOLISM FROM: TISSUE HEART VALVES 2.0-3.0 ACUTE MYOCARDIAL INFARCTION 2.0-3.0 VALVULAR HEART DISEASE 2.0-3.0 ATRIAL FIBRILLATION 2.0-3.0 MECHANICAL VALVES(HIGH RISK) 2.5-3.5 RECURRENT MYOCARDIAL INFARCTION 2.5-3.5 Prothrombin Time 24.7 s 11.8-14.0 Above high normal M EDENT ([facility] ID Date Data Source [id number] 08/21/2019 09:15:00 AM EDT [facility] ([facility]) Name Value Range Interpretation Code Description Data Annette rce(s) Supporting Document(s) Prothrombin Time 24.7 s 11.8-14.0 [facility] ([facility]) Inr 2.26 [facility] (Cardiology A [facility]) THERAPUTIC HUMAN INR VALUES INDICATIONS NORMAL RANGES PROPHYLAXIS/TREATMENT OF: VENOUS THROMBOSIS 2.0-3.0 PULMONARY EMBOLISM 2.0-3.0 PREVENTION OF SYSTEMIC EMBOLISM FROM: TISSUE HEART VALVES 2.0-3.0 ACUTE MYOCARDIAL INFARCTION 2.0-3.0 VALVULAR HEART DISEASE 2.0-3.0 ATRIAL FIBRILLATION 2.0-3.0 MECHANICAL VALVES(HIGH RISK) 2.5-3.5 RECURRENT MYOCARDIAL INFARCTION 2.5-3.5 ID Date Data Source [id number] 08/06/2019 02:57:00 PM EDT [facility] ([facility] Name Value Range Interpretation Code Description Data Annette rce(s) Supporting Document(s) WBC 7.7 10E3/uL 4.1-10.9 [facility] ([facility] CLASSIFICATION CHOLESTEROL FO R ADULTS [...] 140-440 Adult F 4.1-10.9 4.04-5.48 12.0-18.0 37.0-51.0 -97 140-440 0- 1 Yr 5.0-20.0 3.9-5.9 15-18 [...] RBC 3.88 10E6/uL 4.20-6.30 Below low normal [facility] ([facility] CLASSIFICATION CHOLESTEROL FO [...] HCT IS 5% LESS SOURCE FOR DATA: [employer] 1800 OPERATION MANUAL( AUTOMATED BLOOD COUNTS AND [...] APPENDIX B-3 HGB 12.5 g/dL 12.0-18.0 [facility] CLASSIFICATION CHOLESTEROL FO [...] HCT IS 5% LESS SOURCE FOR DATA: [employer] 1800 OPERATION MANUAL( AUTOMATED BLOOD COUNTS AND [...] HCT IS 5% LESS SOURCE FOR DATA: [employer] 1800 OPERATION MANUAL( AUTOMATED BLOOD COUNTS [...] DIFF.) APPENDIX B-3 PLT 165 10E3/uL 140-440 [facility] CLASSIFICATION CHOLESTEROL FO R ADULTS [...] HCT IS 5% LESS SOURCE FOR DATA: [employer] 1800 OPERATION MANUAL( AUTOMATED BLOOD COUNTS AND DIFF.) APPENDIX B-3 RDW-CV 13.9 % 11.5-14.5 [facility] CLASSIFICATION CHOLESTEROL FO [...] HCT IS 5% LESS SOURCE FOR DATA: [employer] 1800 OPERATION MANUAL( AUTOMATED BLOOD COUNTS AND [...] HCT IS 5% LESS SOURCE FOR DATA: [employer] 1800 OPERATION MANUAL( AUTOMATED BLOOD COUNTS AND DIFF.) APPENDIX B-3 Lym% 10.4 % 10.0-58.5 [facility] CLASSIFICATION CHOLESTEROL FO R ADULTS [...] HCT IS 5% LESS SOURCE FOR DATA: [employer] 1800 OPERATION MANUAL( AUTOMATED BLOOD COUNTS AND DIFF.) APPENDIX B-3 Neut% 76.3 % 37.0-92.0 [facility] CLASSIFICATION CHOLESTEROL FO [...] DIFF.) APPENDIX B-3 Lym# 0.8 10E3/uL 0.6-4.1 [facility] ([facility] CLASSIFICATION CHOLESTEROL FO R ADULTS [...] HCT IS 5% LESS SOURCE FOR DATA: [employer] 1800 OPERATION MANUAL( AUTOMATED BLOOD COUNTS AND DIFF.) APPENDIX B-3 Neut# 5.9 % 2.0-7.8 [facility] CLASSIFICATION CHOLESTEROL FO [...] HCT IS 5% LESS SOURCE FOR DATA: [employer] 1800 OPERATION MANUAL( AUTOMATED BLOOD COUNTS AND DIFF.) APPENDIX B-3 MXD# 1.0 10E3/uL 0.0-1.8 [facility] ([facility] CLASSIFICATION CHOLESTEROL FO R ADULTS [...] DIFF.) APPENDIX B-3 MPV 11.5 fL 9.0-13.0 [facility] CLASSIFICATION CHOLESTEROL FO [...] HCT IS 5% LESS SOURCE FOR DATA: [employer] 1800 OPERATION MANUAL( AUTOMATED BLOOD COUNTS AND DIFF.) APPENDIX B-3 ID Date Data Source [id number] 08/06/2019 02:57:00 PM EDT MED[facility] ([facility] Name Value Range Interpretation Code Description Data Annette rce(s) Supporting Document(s) Chol 166 mg/dL 0-200 [facility] ([facility] CLASSIFICATION [...] B-3 Trig 129 mg/dL 35-200 [facility] ([facility] CLASSIFICATION [...] HCT IS 5% LESS SOURCE FOR DATA: [employer] 1800 OPERATION MANUAL( AUTOMATED BLOOD COUNTS AND DIFF.) APPENDIX B-3 Cho/HDL Ratio 4.8 CALC MED[facility] ([facility] CLASSIFICATION CHOLESTEROL FO R ADULTS CHILDREN/ADOLESCENTS* [...] HCT IS 5% LESS SOURCE FOR DATA: [employer] 1800 OPERATION MANUAL( AUTOMATED BLOOD COUNTS AND DIFF.) APPENDIX B-3 LDL_C 106 Calc 75-129 [facility] CLASSIFICATION CHOLESTEROL FO [...] HCT IS 5% LESS SOURCE FOR DATA: [employer] 1800 OPERATION MANUAL( AUTOMATED BLOOD COUNTS AND [...] 140-440 Adult F 4.1-10.9 4.04-5.48 12.0-18.0 37.0-51.0 80 140-440 0- 1 Yr 5.0-20.0 3.9-5.9 15-18 [...] HCT IS 5% LESS SOURCE FOR DATA: [employer] 1800 OPERATION MANUAL( AUTOMATED BLOOD COUNTS AND DIFF.) APPENDIX B-3 ID Date Data Source [id number] 08/06/2019 02:57:00 PM EDT [facility] (Famil y [...] DIFF.) APPENDIX B-3 Glu 108 mg/dL 70-110 [facility] ([facility] CLASSIFICATION [...] Creat 1.4 mg/dL 0.7-1.2 Above high normal [facility] ([facility] CLASSIFICATION CHOLESTEROL FO [...] HCT IS 5% LESS SOURCE FOR DATA: [employer] 1800 OPERATION MANUAL( AUTOMATED BLOOD COUNTS AND DIFF.) APPENDIX B-3 K 4.5 mmol/L 3.5-5.1 [facility] ([facility] CLASSIFICATION CHOLESTEROL FO R [...] HCT IS 5% LESS SOURCE FOR DATA: [employer] 1800 OPERATION MANUAL( AUTOMATED BLOOD COUNTS AND DIFF.) APPENDIX B-3 BUN/Creatinine Ratio 25.6 CALC MED[facility] ([facility] CLASSIFICATION CHOLESTEROL FO R [...] DIFF.) APPENDIX B-3 Na 139 mmol/L 136-145 [facility] ([facility] CLASSIFICATION CHOLESTEROL FO R ADULTS [...] HCT IS 5% LESS SOURCE FOR DATA: [employer] 1800 OPERATION MANUAL( AUTOMATED BLOOD COUNTS AND DIFF.) APPENDIX B-3 CA 9.3 mg/dL 8.6-10.2 [facility] ([facility] CLASSIFICATION [...] APPENDIX B-3 Co2 24.5 mmol/L 22.0-29.0 [facility] ([facility] CLASSIFICATION CHOLESTEROL FO R ADULTS [...] DIFF.) APPENDIX B-3 CL 101.9 mmol/L 98.0-107.0 [facility] ([facility] CLASSIFICATION CHOLESTEROL FO R ADULTS CHILDREN/ADOLESCENTS* [...] DIFF.) APPENDIX B-3 TP 7.0 g/dL 6.6-8.7 [facility] ([facility] [...] HCT IS 5% LESS SOURCE FOR DATA: [employer] 1800 OPERATION MANUAL( AUTOMATED BLOOD COUNTS AND DIFF.) APPENDIX B-3 Alb 4.1 g/dL 3.5-5.2 [facility] ([facility] CLASSIFICATION [...] F 4.1-10.9 4.04-5.48 12.0-18.0 37.0-51.0 80- 140-440 0- 1 Yr 5.0-20.0 3.9-5.9 15-18 [...] HCT IS 5% LESS SOURCE FOR DATA: [employer] 1800 OPERATION MANUAL( AUTOMATED BLOOD COUNTS AND DIFF.) APPENDIX B-3 A/G Ratio 1.4 CALC [facility] CLASSIFICATION CHOLESTEROL FO R ADULTS [...] HCT IS 5% LESS SOURCE FOR DATA: [employer] 1800 OPERATION MANUAL( AUTOMATED BLOOD COUNTS AND DIFF.) APPENDIX B-3 Globulin 2.9 CALC [facility] ([facility] CLASSIFICATION CHOLESTEROL FO R [...] DIFF.) APPENDIX B-3 Alp 74.9 U/L 40-129 [facility] ([facility] CLASSIFICATION CHOLESTEROL FO [...] APPENDIX B-3 Alt (SGPT) 10 U/L 0-41 [facility] ([facility] CLASSIFICATION CHOLESTEROL FO R ADULTS [...] HCT IS 5% LESS SOURCE FOR DATA: [employer] 1800 OPERATION MANUAL( AUTOMATED BLOOD COUNTS AND [...] APPENDIX B-3 Ast (Sgot) 16 U/L 0-40 [facility] CLASSIFICATION CHOLESTEROL FO R [...] HCT IS 5% LESS SOURCE FOR DATA: [employer] 1800 OPERATION MANUAL( AUTOMATED BLOOD COUNTS AND DIFF.) APPENDIX B-3 Tbili 0.39 mg/dL 0.0-1.2 [facility] ([facility] CLASSIFICATION CHOLESTEROL FO R ADULTS [...] DIFF.) APPENDIX B-3 Anion Gap 18 mmol/L [facility] ([facility] [...] HCT IS 5% LESS SOURCE FOR DATA: [employer] 1800 OPERATION MANUAL( AUTOMATED BLOOD COUNTS AND DIFF.) APPENDIX B-3 eGFR 55 # [facility] ( [facility] CLASSIFICATION CHOLESTEROL FO R [...] HCT IS 5% LESS SOURCE FOR DATA: [employer] 1800 OPERATION MANUAL( AUTOMATED BLOOD COUNTS AND DIFF.) APPENDIX B-3 eGFR Non-Afr. [place] 47 # [facility] ([facility] [...] DIFF.) APPENDIX B-3 ID Date Data Source [id number] 07/16/2019 10:56:00 AM EDT LILLIAN ([facility]) Name Value Range Interpretation Code Description Data Annette rce(s) Supporting Document(s) Inr 2.71 DIMITRYENT ([facility]iology [facility]) THERAPUTIC HUMAN INR VALUES INDICATIONS NORMAL RANGES PROPHYLAXIS/TREATMENT OF: VENOUS THROMBOSIS 2.0-3.0 PULMONARY EMBOLISM 2.0-3.0 PREVENTION OF SYSTEMIC EMBOLISM FROM: TISSUE HEART VALVES 2.0-3.0 ACUTE MYOCARDIAL INFARCTION 2.0-3.0 VALVULAR HEART DISEASE 2.0-3.0 ATRIAL FIBRILLATION 2.0-3.0 MECHANICAL VALVES(HIGH RISK) 2.5-3.5 RECURRENT MYOCARDIAL INFARCTION 2.5-3.5 Prothrombin Time 28.6 s 11.8-14.0 [facility] ([facility]) ID Date Data Source [id number] 07/16/2019 10:56:00 AM EDT [facility] ([facility] Name Value Range Interpretation Code Description Data Annette rce(s) Supporting Document(s) Prothrombin Time 28.6 s 11.8-14.0 Above high normal M EDENT ([facility] Inr 2.71 Normal (applies to non-numeric resul ts) [facility] ([facility] THERAPUTIC HUMAN INR VALUES INDICATIONS NORMAL RANGES PROPHYLAXIS/TREATMENT OF: VENOUS THROMBOSIS 2.0-3.0 PULMONARY EMBOLISM 2.0-3.0 PREVENTION OF SYSTEMIC EMBOLISM FROM: TISSUE HEART VALVES 2.0-3.0 ACUTE MYOCARDIAL INFARCTION 2.0-3.0 VALVULAR HEART DISEASE 2.0-3.0 ATRIAL FIBRILLATION 2.0-3.0 MECHANICAL VALVES(HIGH RISK) 2.5-3.5 RECURRENT MYOCARDIAL INFARCTION 2.5-3.5 ID Date Data Source [id number] 06/23/2019 07:50:00 AM EST [facility] ([facility]) Name Value Range Interpretation Code Description Data Annette rce(s) Supporting Document(s) Inr 2.62 [facility] (Cardiology A [facility]) THERAPUTIC HUMAN INR VALUES INDICATIONS NORMAL RANGES PROPHYLAXIS/TREATMENT OF: VENOUS THROMBOSIS 2.0-3.0 PULMONARY EMBOLISM 2.0-3.0 PREVENTION OF SYSTEMIC EMBOLISM FROM: TISSUE HEART VALVES 2.0-3.0 ACUTE MYOCARDIAL INFARCTION 2.0-3.0 VALVULAR HEART DISEASE 2.0-3.0 ATRIAL FIBRILLATION 2.0-3.0 MECHANICAL VALVES(HIGH RISK) 2.5-3.5 RECURRENT MYOCARDIAL INFARCTION 2.5-3.5 Prothrombin Time 27.9 s 11.8-14.0 [facility] ([facility]) ID Date Data Source [id number] 05/27/2019 08:42:00 AM EST [facility] ([facility]) Name Value Range Interpretation Code Description Data Annette rce(s) Supporting Document(s) Prothrombin Time 34.0 s 11.8-14.0 [facility] ([facility]) Inr 3.36 [facility] ([facility]) THERAPUTIC HUMAN INR VALUES INDICATIONS NORMAL RANGES PROPHYLAXIS/TREATMENT OF: VENOUS THROMBOSIS 2.0-3.0 PULMONARY EMBOLISM 2.0-3.0 PREVENTION OF SYSTEMIC EMBOLISM FROM: TISSUE HEART VALVES 2.0-3.0 ACUTE MYOCARDIAL INFARCTION 2.0-3.0 VALVULAR HEART DISEASE 2.0-3.0 ATRIAL FIBRILLATION 2.0-3.0 MECHANICAL VALVES(HIGH RISK) 2.5-3.5 RECURRENT MYOCARDIAL INFARCTION 2.5-3.5 ID Date Data Source [id number] 05/06/2019 11:09:00 AM EST [facility] ([facility]) Name Value Range Interpretation Code Description Data Annette rce(s) Supporting Document(s) Magnesium Level 2.25 [facility] ([facility]) ID Date Data Source [id number] 05/06/2019 11:09:00 AM EST [facility] ([facility]) Name Value Range Interpretation Code Description Data Annette rce(s) Supporting Document(s) White Blood Count 7.4 5.0-10.0 [facility] ([facility]ology [facility]) Red Blood Count 3.73 4.70-6.10 [facility] (Cardio logy [facility]) Platelets 231 172-450 [facility] ([facility]) Hematocrit 37.0 42.0-52.0 [facility] (Cardiology [facility]) Hemoglobin 12.0 14.0-18.0 [facility] (Cardiology [facility]) ID Date Data Source [id number] 05/06/2019 11:09:00 AM EST [facility] ([facility]) Name Value Range Interpretation Code Description Data Annette rce(s) Supporting Document(s) Glucose 111 70-100 [facility] (Cardiology A [facility]) Blood Urea Nitrogen 27.9 5-21 [facility] (Ca rdiology [facility]) Sodium 140.3 136-146 [facility] (Cardiology [facility]) Glomerular filtration rate/1.73 sq M.pre dicted [Volume Rate/Area] in Serum or Plasma by Creatinine-based formula (MDRD) 51 [facility] (Cardiology [facility]) Creatinine 1.34 0.6-1.5 [facility] (Cardiology [facility]) Chloride 100.4 98-110 [facility] ([facility]iology [facility]) Potassium 3.85 3.5-5.3 [facility] (Cardiology A [facility]) Carbon Dioxide 31.8 20-32 [facility] (Cardiol ogy [facility]) Albumin 4.2 3.5-4.7 [facility] (Cardiology A [facility]) Phosphorus 3.12 [facility] (Cardiology [facility]) Calcium 9.49 8.4-10.4 [facility] (Cardiology [facility]) ID Date Data Source [id number] 05/06/2019 07:48:00 AM EST [facility] ([facility]) Name Value Range Interpretation Code Description Data Annette rce(s) Supporting Document(s) Prothrombin Time 34.7 s 11.8-14.0 [facility] ([facility]) Inr 3.44 [facility] (Cardiology A [facility]) THERAPUTIC HUMAN INR VALUES INDICATIONS NORMAL RANGES PROPHYLAXIS/TREATMENT OF: VENOUS THROMBOSIS 2.0-3.0 PULMONARY EMBOLISM 2.0-3.0 PREVENTION OF SYSTEMIC EMBOLISM FROM: TISSUE HEART VALVES 2.0-3.0 ACUTE MYOCARDIAL INFARCTION 2.0-3.0 VALVULAR HEART DISEASE 2.0-3.0 ATRIAL FIBRILLATION 2.0-3.0 MECHANICAL VALVES(HIGH RISK) 2.5-3.5 RECURRENT MYOCARDIAL INFARCTION 2.5-3.5 ID Date Data Source [id number] 04/29/2019 08:11:00 AM EST [facility] ([facility]) Name Value Range Interpretation Code Description Data Annette rce(s) Supporting Document(s) Prothrombin Time 40.7 s 11.8-14.0 [facility] ([facility]) Inr 4.20 [facility] (Cardiology A [facility]) THERAPUTIC HUMAN INR VALUES INDICATIONS NORMAL RANGES PROPHYLAXIS/TREATMENT OF: VENOUS THROMBOSIS 2.0-3.0 PULMONARY EMBOLISM 2.0-3.0 PREVENTION OF SYSTEMIC EMBOLISM FROM: TISSUE HEART VALVES 2.0-3.0 ACUTE MYOCARDIAL INFARCTION 2.0-3.0 VALVULAR HEART DISEASE 2.0-3.0 ATRIAL FIBRILLATION 2.0-3.0 MECHANICAL VALVES(HIGH RISK) 2.5-3.5 RECURRENT MYOCARDIAL INFARCTION 2.5-3.5 ID Date Data Source [id number] 04/29/2019 08:11:00 AM EST [facility] ([facility] Name Value Range Interpretation Code Description Data Annette rce(s) Supporting Document(s) Inr 4.20 Normal (applies to non-numeric resul ts) MED[facility] ([facility] THERAPUTIC HUMAN INR VALUES INDICATIONS NORMAL RANGES PROPHYLAXIS/TREATMENT OF: VENOUS THROMBOSIS 2.0-3.0 PULMONARY EMBOLISM 2.0-3.0 PREVENTION OF SYSTEMIC EMBOLISM FROM: TISSUE HEART VALVES 2.0-3.0 ACUTE MYOCARDIAL INFARCTION 2.0-3.0 VALVULAR HEART DISEASE 2.0-3.0 ATRIAL FIBRILLATION 2.0-3.0 MECHANICAL VALVES(HIGH RISK) 2.5-3.5 RECURRENT MYOCARDIAL INFARCTION 2.5-3.5 Prothrombin Time 40.7 s 11.8-14.0 Above high normal M EDRENATA ([facility] Procedure Social History Code Duration Value Status Description Data Source(s ) Smoking 02/05/2020 12:00:00 AM EDT Patient is a former smoker completed Patient is a former smoker [facility] ([facility]) Vital Signs ID Date Data Source [id number] Name Value Range Interpretation Code Description Data Source(s) Oxygen saturation in Arterial blood by Pulse oximetry 97 % 97 % [facility] ([facility] [place] body weight 178 [lb_av] 178 [lb_av] MEDEN T ([facility] Body height 72 [in_i] 72 [in_i] [facility] ([facility] 6'0" Respiratory rate 18 /min 18 /min MEDRENATA ( [facility] Heart rate 64 /min 64 /min MEDRENATA ([facility] Body temperature 97.9 [degF] 97.9 [degF] [facility] ([facility] Diastolic blood pressure 66 mm[Hg] 66 mm[Hg] [facility] ([facility] Systolic blood pressure 122 mm[Hg] 122 mm[Hg] M EDENT ([facility] Oxygen saturation in Arterial blood by Pulse oximetry 97 % 97 % [facility] ([facility] Body mass index (BMI) [Ratio] 33.9 kg/m2 33.9 k g/m2 [facility] ([facility] [place] body weight 178 [lb_av] 178 [lb_av] MEDEN T ([facility] Body weight 250.00 [lb_av] 250.00 [lb_av] MEDEN T ([facility] Body height 72 [in_i] 72 [in_i] [facility] ([facility] 6'0" Respiratory rate 14 /min 14 /min MED[facility] ( [facility] Heart rate 58 /min 58 /min [facility] ([facility] Body temperature 97.3 [degF] 97.3 [degF] [facility] ([facility] Diastolic blood pressure 60 mm[Hg] 60 mm[Hg] [facility] ([facility] Systolic blood pressure 138 mm[Hg] 138 mm[Hg] EDENT ([facility] Diastolic blood pressure 68 mm[Hg] 68 mm[Hg] [facility] ([facility]) sitting Systolic blood pressure 122 mm[Hg] 122 mm[Hg] M EDENT ([facility]) sitting Diastolic blood pressure 68 mm[Hg] 68 mm[Hg] [facility] ([facility]) sitting, large cuff Systolic blood pressure 118 mm[Hg] 118 mm[Hg] M EDENT ([facility]) sitting, large cuff Respiratory rate 16 /min 16 /min [facility] ( [facility]) Heart rate 60 /min 60 /min [facility] (Cardio [facility]y [facility]) Regular Body mass index (BMI) [Ratio] 34.3 kg/m2 34.3 k g/m2 [facility] ([facility]) Body height 72 [in_i] 72 [in_i] MED[facility] ([facility]i [facility]y [facility]) 6'0" Body weight 253.00 [lb_av] 253.00 [lb_av] MEDEN T ([facility]) Body weight 125.647 kg 125.647 kg MED[facility] ([facility]) Body mass index (BMI) [Ratio] 37.6 kg/m2 37.6 k g/m2 [facility] ([facility]) Body weight 277.00 [lb_av] 277.00 [lb_av] MEDEN T ([facility]) Body height 72 [in_i] 72 [in_i] MED[facility] ([facility]) 6'0" Diastolic blood pressure 62 mm[Hg] 62 mm[Hg] [facility] ([facility]) Systolic blood pressure 152 mm[Hg] 152 mm[Hg] M EDENT ([facility]) Body mass index (BMI) [Ratio] 37.6 kg/m2 37.6 k g/m2 [facility] ([facility] [place] body weight 178 [lb_av] 178 [lb_av] MEDEN T ([facility] Body weight 277.00 [lb_av] 277.00 [lb_av] MEDEN T ([facility] Body height 72 [in_i] 72 [in_i] MED[facility] ([facility] 6'0" Respiratory rate 18 /min 18 /min MED[facility] ( [facility] Heart rate 68 /min 68 /min [facility] ([facility] Body temperature 98.3 [degF] 98.3 [degF] [facility] ([facility] Diastolic blood pressure 76 mm[Hg] 76 mm[Hg] [facility] ([facility] Systolic blood pressure 128 mm[Hg] 128 mm[Hg] M EDENT ([facility] Oxygen saturation in Arterial blood by Pulse oximetry 94 % 94 % [facility] ([facility] Oxygen saturation in Arterial blood by Pulse oximetry 98 % 98 % [facility] ([facility] Body mass index (BMI) [Ratio] 36.9 kg/m2 36.9 k g/m2 [facility] ([facility] [place] body weight 178 [lb_av] 178 [lb_av] MEDEN T ([facility] Body weight 272.00 [lb_av] 272.00 [lb_av] MEDEN T ([facility] Body height 72 [in_i] 72 [in_i] MED[facility] ([facility] 6'0" Respiratory rate 18 /min 18 /min [facility] ( [facility] Heart rate 60 /min 60 /min [facility] ([facility] Body temperature 97.9 [degF] 97.9 [degF] [facility] ([facility] Diastolic blood pressure 58 mm[Hg] 58 mm[Hg] [facility] ([facility] Systolic blood pressure 130 mm[Hg] 130 mm[Hg] M EDENT ([facility] Oxygen saturation in Arterial blood by Pulse oximetry 96 % 96 % [facility] ([facility] Body mass index (BMI) [Ratio] 37.3 kg/m2 37.3 k g/m2 [facility] ([facility] Body weight 275.00 [lb_av] 275.00 [lb_av] MEDEN T ([facility] Body height 72 [in_i] 72 [in_i] MED[facility] ([facility] 6'0" Respiratory rate 18 /min 18 /min [facility] ( [facility] Heart rate 52 /min 52 /min [facility] ([facility] Body temperature 97.3 [degF] 97.3 [degF] [facility] ([facility] Diastolic blood pressure 66 mm[Hg] 66 mm[Hg] [facility] ([facility] Systolic blood pressure 126 mm[Hg] 126 mm[Hg] M EDENT ([facility] Diastolic blood pressure 68 mm[Hg] 68 mm[Hg] [facility] ([facility]) sitting Systolic blood pressure 128 mm[Hg] 128 mm[Hg] M EDENT ([facility]) sitting Diastolic blood pressure 68 mm[Hg] 68 mm[Hg] [facility] ([facility]) sitting, large cuff Systolic blood pressure 132 mm[Hg] 132 mm[Hg] M EDENT ([facility]) sitting, large cuff Respiratory rate 16 /min 16 /min [facility] ( [facility]) Heart rate 60 /min 60 /min [facility] ([facility]io [facility]) Irregular Body mass index (BMI) [Ratio] 37.6 kg/m2 37.6 k g/m2 [facility] ([facility]) Body height 72 [in_i] 72 [in_i] [facility] ([facility]i [facility]) 6'0" Body weight 277.00 [lb_av] 277.00 [lb_av] DIMITRYEN T ([facility])
[2020-06-10 02:24] LABS: BASO # 0.1 10^3/uL (0.0-0.2); BASO % 0.6 % (0.0-1.0); EOS # 0.1 10^3/uL (0.0-0.5); EOS % 0.4 % (0.0-3.0); HEMOGLOBIN 8.2 g/dl (13.5-17.5); LYMPH # 0.8 10^3/uL (1.5-5.0); LYMPH % 6.1 % (24.0-44.0); MEAN CORPUSCULAR HGB CONC 31.5 g/dl (32.0-36.5); MEAN CORPUSCULAR VOLUME 101.6 fl (80.0-96.0); MONO % 7.5 % (2.0-8.0); NEUTROPHILS % 84.2 % (36.0-66.0); PLATELET COUNT, AUTOMATED 229 10^3/uL (150-450); RED BLOOD COUNT 2.56 10^6/uL (4.30-6.10)
[2020-06-10 02:29] LABS: INR 3.34; PROTHROMBIN TIME 34.6 SECONDS (12.5-14.3)
[2020-06-10 02:32] LABS: BLOOD UREA NITROGEN 79 MG/DL (7-18); CALCIUM LEVEL 8.4 MG/DL (8.8-10.2); CARBON DIOXIDE LEVEL 29 MEQ/L (21-32); CHLORIDE LEVEL 103 MEQ/L (98-107); CREATININE FOR GFR 1.86 MG/DL (0.70-1.30); GLOMERULAR FILTRATION RATE 37.5 (>42); GLUCOSE, FASTING 117 MG/DL (70-100); POTASSIUM SERUM 3.6 MEQ/L (3.5-5.1); SODIUM LEVEL 142 MEQ/L (136-145)
[2020-06-10] MEDS ORDERED: NS 500 ML IV ONE (02:45)
--- NOTE | 2020-06-10 02:51 | REPVR ---
PROCEDURE INFORMATION: Exam: XR Chest, 1 View Exam date and time: 06/10/2020 2:42 AM Age: 80 years old Clinical indication: Other: Ruddy TECHNIQUE: Imaging protocol: XR of the chest Views: 1 view. COMPARISON: 1. CR PORTABLE CHEST X-RAY 2020-05-16 09:29 2. LA PORTABLE CHEST X-RAY 2020-05-07 14:00 3. CR PORTABLE CHEST X-RAY 2020-05-02 17:23 FINDINGS: Tubes, catheters and devices: There are sternal wires consistent with a previous sternotomy incision. Lungs: Dependent subsegmental pulmonary atelectasis. Pleural spaces: Unremarkable. No pleural effusion. No pneumothorax. Heart/Mediastinum: Unremarkable. No cardiomegaly. Bones/joints: Unremarkable. IMPRESSION: Dependent subsegmental pulmonary atelectasis. Electronically signed by: Dick Crespo On 06/10/2020 02:51:42 AM
[2020-06-10 02:57] LABS: CPK CREATINE PHOSPHOKINASE 21 U/L (39-308)
--- OUTSIDE RECORDS SUMMARY | 2020-06-10 03:05 | CCD ---
Author Author [facility] Organization [facility] Address Unknown Phone Unavailable Care Team Providers Care Supervisor [employer] Name Role Phone KiranwMary Ellen PA Unavailable [...] Unavailable Unavailable Solomon POLO MD Unavailable Unavailable Soolmon POOL MD Unavailable Unavailable Solomon POLO MD Unavailable Unavailable Solomon POLO MD Unavailable Unavailable Solomon POLO MD Unavailable Unavailable CHRIST H ASHLEIGH FAIRCHILD Unavailable Unavailable CHRIST H ASHLEIGH FAIRCHILD Unavailable Unavailable CHRIST H ASHLEIGH FAIRCHILD Unavailable Unavailable CHIRST H ASHLEIGH FAIRCHILD Unavailable Unavailable CHRIST H [...] is protected by Article 27-F of the [facility] Public Health law. If you continue you may have access to information: Regarding HIV / AIDS; Provided by facilities licensed or operated by the [facility] Office of Mental Health; or Provided by the [facility] Office for People With Developmental Disabilities. If such information is present, then the following [facility] mandated warning applies: This information [...] law may result in a fine or chcf sentence or both. A general authorization for the release of medical or other information is NOT sufficient authorization for further disc losure. Family History Family Member Name Family Member Gender Family Member Status Date o f Status Description Data Source(s) Unknown Unknown Problem [facility] ([facility] Unknown Unknown Problem [facility] ([facility] ) mother Dx age 91 Encounters Encounter Providers Location Date Indications Data Source(s ) Outpatient Attender: ASHLEIGH POLO MD [place] Office 01:00:00 PM EST [facility] ([facility] Outpatient Attender: ASHLEIGH [place] [facility] 12:30:00 PM EST [facility] ([facility] Office Visit Attender: DARIN PAINTING MD [facility] 02/23/2020 07:15:00 AM EST MED[facility] ([facility] Outpatient Attender: ASHLEIGH [place] Office 02:45:00 PM EDT MEDENT ([facility] Outpatient Attender: Eboni HAYES Main Office 02/05/2020 01:00:00 PM EDT MED[facility] ([facility]) Outpatient Attender: ASHLEIGH [place] Office 11/2019 02:30:00 PM EDT MEDENT ([facility] Outpatient Attender: DARIN PAINTING MD Main office - [facility] n 12/01/2019 02:00:00 PM EDT MED[facility] ([facility] Outpatient Attender: ASHLEIGH POLO MD [place] Office 08/2019 03:40:00 PM EDT MEDENT ([facility] Outpatient Attender: ASHLEIGH [place] Office 02:30:00 PM EDT MEDENT ([facility] Outpatient Attender: Eboni HAYES Main Office 08/06/2019 11:30:00 AM EDT MEDENT ([facility]) Medications Medication Brand Name Start Date Product Form Dose Route Admi nistrative Instructions Pharmacy Instructions Status Indications Reaction Description Data Source(s) Warfarin Sodium 3 MG Oral Tablet Warfarin Sodium 06/03/2020 12:00:00 AM EST ORAL active MED[facility] ([facility] Metolazone 2.5 MG Oral Tablet Metolazone ORAL acti ve MED[facility] ([facility] 60 ACTUAT Albuterol 0.09 MG/ACTUAT Metered Dose Inhaler Albu terol Sulfate HFA 02/10/2020 12:00:00 AM EDT RESPIRATORY active MED[facility] ([facility] torsemide 20 MG Oral Tablet Torsemide 02/04/2020 12:00:00 AM EDT ORAL active MED[facility] ([facility]) Carbidopa 25 MG / Levodopa 100 MG Oral Tablet Carbidopa-Levo dopa 02/04/2020 12:00:00 AM EDT ORAL active M EDENT ([facility]) Klor-Con M20 Klor-Con M20 02/04/2020 12:00:00 AM EDT active MED[facility] ([facility]) Metolazone 2.5 MG Oral Tablet Metolazone 02/04/2020 12:00:00 AM EDT ORAL active [facility] ([facility]) Warfarin Sodium 5 MG Oral Tablet Warfarin Sodium 01/05/2020 12:00:00 AM EDT ORAL active [facility] ([facility]) Carbidopa 25 MG / Levodopa 100 MG Oral Tablet [Sinemet] Sine met 12/04/2019 12:00:00 AM EDT ORAL active M EDENT ([facility]) Wixela Inhub Wixela Inhub 08/28/2019 12:00:00 AM EDT active MED[facility] ([facility] Wixela Inhub Wixela Inhub 08/06/2019 12:00:00 AM EDT completed MED[facility] ([facility] Fluticasone propionate 0.5 MG/ML Topical Cream Fluticasone P ropionate 08/06/2019 12:00:00 AM EDT completed [facility] ([facility] Wixela Inhub Wixela Inhub 08/05/2019 12:00:00 AM EDT active MED[facility] ([facility]) Fluticasone propionate 0.5 MG/ML Topical Cream Fluticasone P ropionate 08/05/2019 12:00:00 AM EDT active MED[facility] ([facility]) Insurance Providers Payer name Policy type / Coverage type Policy ID Covered constitution party ID Covered constitution party's relationship to luz Policy Luz Plan Information AARP HE[employer] CARE OPTIONS [id number] SP [id number] MEDICARE [id number] SP [id number] [id number] AARP O [id number] S [id number] MEDICARE C [id number] S [id number] MEDICARE COMPLETE [id number] SP [id number] BC/BS Of [facility] Part B [id number] Self [id number] BC/BS Of [facility] Part B [id number] Self [id number] [employer] Commercial [id number] Self [id number] Excellus BC/BS Of [facility] Part B [id number] Self [id number] BCBS Medicare Blue U/W Commercial [id number] Self [id number] [employer] Commercial [id number] Self [id number] MVP Commercial [id number] Self [id number] BC/BS Of [facility] Part B [id number] Self [id number] BC/BS Of [facility] Part B [id number] Self [id number] [employer] Commercial [id number] Self [id number] Excellus BC/BS Of [facility] Part B [id number] Self [id number] BCBS Medicare Blue U/W Commercial [id number] Self [id number] [employer] in [employer] Commercial [id number] Self [id number] BC/BS Of [facility] Part B [id number] Self [id number] BC/BS Of [facility] Part B [id number] Self [id number] [employer] Commercial [id number] Self [id number] Excellus BC/BS Of [facility] Part B [id number] Self [id number] BCBS Medicare Blue U/W Commercial [id number] Self [id number] [employer] in [employer] Commercial [id number] Self [id number] BC/BS Of [facility] Part B [id number] Self [id number] BC/BS Of [facility] Part B [id number] Self [id number] [employer] Commercial [id number] Self [id number] Excell[employer] BC/BS Of [facility] Part B [id number] Self [id number] BCBS Medicare Blue U/W Commercial [id number] Self [id number] [employer] Commercial [id number] Self [id number] BC/BS Of [facility] Part B [id number] Self [id number] BC/BS Of [facility] Part B [id number] Self [id number] [employer] Commercial [id number] Self [id number] Excell[employer] BC/BS Of [facility] Part B [id number] Self [id number] BCBS Medicare Blue U/W Commercial [id number] Self [id number] [employer] Commercial [id number] Self [id number] BC/BS Of [facility] Part B [id number] Self [id number] BC/BS Of [facility] Part B [id number] Self [id number] [employer] Commercial [id number] Self [id number] [employer] BC/BS Of [facility] Part B [id number] Self [id number] BCBS Medicare Blue U/W Commercial [id number] Self [id number] [employer] in [employer] Commercial [id number] Self [id number] BC/BS Of [facility] Part B [id number] Self [id number] BC/BS Of [facility] Part B [id number] Self [id number] [employer] Commercial [id number] Self [id number] [employer] BC/BS Of [facility] Part B [id number] Self [id number] BCBS Medicare Blue U/W Commercial [id number] Self [id number] [employer] in [employer] Commercial [id number] Self [id number] BC/BS Of [facility] Part B [id number] Self [id number] BC/BS Of [facility] Part B [id number] Self [id number] [employer] Commercial [id number] Self [id number] [employer] BC/BS Of [facility] Part B [id number] Self [id number] BCBS Medicare Blue U/W Commercial [id number] Self [id number] [employer] in [employer] Commercial [id number] Self [id number] Medicare Blue Ppo Commercial [id number] Self [id number] [facility] Medicare Commercial [id number] Self [id number] MEDICARE COMPLETE [id number] SP [id number] MEDICARE COMPLETE-[facility] O [id number] S [id number] MEDICARE [id number] SP [id number] MEDICARE COMPLETE [id number] SP [id number] BC/BS Of [facility] B [id number] Self [id number] BC/BS Of [facility] B [id number] Self [id number] [employer] Commercial [id number] Self [id number] [employer] BC/BS Of [facility] Part B [id number] Self [id number] BCBS Medicare Blue U/W Commercial [id number] Self [id number] [facility]-Med[employer]are [employer] Commercial [id number] Self [id number] Medicare Blue Ppo Commercial [id number] Self [id number] [facility] Medicare Commercial [id number] Self [id number] BC/BS Of [facility] B [id number] Self [id number] BC/BS Of [facility] B [id number] Self [id number] [employer] Commercial [id number] Self [id number] Excell[employer] BC/BS Of [facility] Part B [id number] Self [id number] BCBS Medicare Blue U/W Commercial [id number] Self [id number] [facility]-[employer] Commercial [id number] Self [id number] [facility]-[employer] Commercial Self BCBS Medicare Blue U/W Commercial Self MVP Commercial Self BC/BS Of [facility] Part B Self BC/BS Of [facility] B Self [employer] Commercial Self Excellus BC/BS Of [facility] B Self [facility] MEDICARE [id number] Kandace [id number] [facility]-Medicare Solutions Commercial Self MEDICARE BLUE PPO 306 [id number] SP [id number] [facility] [id number] SP [id number] MEDICARE BLUE PPO 306 [id number] SP [id number] BCBS - Medicare Blue Ppo Commercial Self EXCELLUS BCBS P [id number] S VYM EXCELLUS BCBS P [id number] S [id number] [employer] BCBS P UNAVAILABLE S UNAV AILABLE [id number] Problems, Conditions, and Diagnoses Code Display Name Description Problem Type Effective Dates Data Source(s) 88602847 Tremor Tremor Problem 12/01/2019 12:00:00 AM ED T MEDENT ([facility] ) Surgeries/Procedures Procedure Description Date Indications Data Source(s) Anticoagulant MGMT For Patient Taking Warfarin, Inc Review & Intr 06/08/2020 12:00:00 AM EST MEDENT ([facility] Anticoagulant MGMT For Patient Taking Warfarin, Inc Review & Intr 06/01/2020 12:00:00 AM EST MED[facility] ([facility]) Anticoagulant MGMT For Patient Taking Warfarin, Inc Review & Intr 04/13/2020 12:00:00 AM EST [facility] ([facility]) Anticoagulant MGMT For Patient Taking Warfarin, Inc Review & Intr 03/25/2020 12:00:00 AM EST [facility] ([facility]) Anticoagulant MGMT For Patient Taking Warfarin, Inc Review & Intr 02/26/2020 12:00:00 AM EST [facility] ([facility]) TSTG ANS FUNCJ CARDIOVAGAL INNERVAJ PARASYMP 0 12:00:00 AM EDT MEDENT ([facility] ) TSTG ANS FUNCJ CARDIOVAGAL INNERVAJ PARASYMP 0 12:00:00 AM EDT MED[facility] ([facility] ) TESTING AUTONOMIC NERVOUS SYSTEM FUNCTION 02/20/2020 1 2:00:00 AM EDT MED[facility] ([facility] ) TESTING AUTONOMIC NERVOUS SYSTEM FUNCTION 02/20/2020 1 2:00:00 AM EDT MEDENT ([facility] ) ELECTROENCEPHALOGRAM W/REC AWAKE&ASLEEP 02/19/2020 12: 00:00 AM EDT MED[facility] ([facility] ) ELECTROENCEPHALOGRAM W/REC AWAKE&ASLEEP 02/19/2020 12: 00:00 AM EDT MED[facility] ([facility] ) Anticoagulant MGMT For Patient Taking Warfarin, Inc Review & Intr 02/10/2020 12:00:00 AM EDT [facility] ([facility] ECG ROUTINE ECG W/LEAST 12 LDS W/I&R 02/05/2020 12:00: 00 AM EDT [facility] ([facility]) Anticoagulant MGMT For Patient Taking Warfarin, Inc Review & Intr 01/12/2020 12:00:00 AM EDT MED[facility] ([facility]) Anticoagulant MGMT For Patient Taking Warfarin, Inc Review & Intr 12/23/2019 12:00:00 AM EDT MED[facility] ([facility]) MRI BRAIN BRAIN STEM W/O CONTRAST MATERIAL 12/13/2019 12:00:00 AM EDT MED[facility] ([facility] MRI BRAIN BRAIN STEM W/O CONTRAST MATERIAL 12/13/2019 12:00:00 AM EDT MEDENT ([facility] MRI SPINAL CANAL LUMBAR W/O CONTRAST MATERIAL 12/13/19 12:00:00 AM EDT MEDENT ([facility] ) MRI SPINAL CANAL LUMBAR W/O CONTRAST MATERIAL 12/13/19 12:00:00 AM EDT MED[facility] ([facility] ) Anticoagulant MGMT For Patient Taking Warfarin, Inc Review & Intr 12/12/2019 12:00:00 AM EDT MED[facility] ([facility]) Needle electromyography, each extremity, with related paraspinal areas, when performed, done with nerve conduction, amplitude and latency/velocity study; complete, five or more muscles studied, innervated by three or more nerves or four or more spinal levels (list separately in addition to the code for primary procedure). 12/08/2019 12:00:00 AM EDT MEDEN T ([facility] ) Needle electromyography, each extremity, with related paraspinal areas, when performed, done with nerve conduction, amplitude and latency/velocity study; complete, five or more muscles studied, innervated by three or more nerves or four or more spinal levels (list separately in addition to the code for primary procedure). 12/08/2019 12:00:00 AM EDT MEDEN T ([facility] ) 33846 Nerve conduction studies 13 or more studies NEW 201212/08/2019 12:00:00 AM EDT MED[facility] ([facility] Anticoagulant MGMT For Patient Taking Warfarin, Inc Review & Intr 11/10/2019 12:00:00 AM EDT [facility] ([facility]) Anticoagulant MGMT For Patient Taking Warfarin, Inc Review & Intr 10/21/2019 12:00:00 AM EDT [facility] ([facility]) Anticoagulant MGMT For Patient Taking Warfarin, Inc Review & Intr 10/14/2019 12:00:00 AM EDT MED[facility] ([facility]) Anticoagulant MGMT For Patient Taking Warfarin, Inc Review & Intr 09/29/2019 12:00:00 AM EDT MED[facility] ([facility]) Anticoagulant MGMT For Patient Taking Warfarin, Inc Review & Intr 09/03/2019 12:00:00 AM EDT MED[facility] ([facility]) Anticoagulant MGMT For Patient Taking Warfarin, Inc Review & Intr 08/21/2019 12:00:00 AM EDT MED[facility] ([facility]) ECG ROUTINE ECG W/LEAST 12 LDS W/I&R 08/06/2019 12:00: 00 AM EDT [facility] ([facility]) Anticoagulant MGMT For Patient Taking Warfarin, Inc Review & Intr 07/16/2019 12:00:00 AM EDT [facility] ([facility]) Anticoagulant MGMT For Patient Taking Warfarin, Inc Review & Intr 06/23/2019 12:00:00 AM EST [facility] ([facility]) Anticoagulant MGMT For Patient Taking Warfarin, Inc Review & Intr 05/28/2019 12:00:00 AM EST [facility] ([facility]) Anticoagulant MGMT For Patient Taking Warfarin, Inc Review & Intr 05/06/2019 12:00:00 AM EST [facility] ([facility]) Anticoagulant MGMT For Patient Taking Warfarin, Inc Review & Intr 04/29/2019 12:00:00 AM EST [facility] ([facility]) Results ID Date Data Source [id number] 06/07/2020 09:20:00 AM EST [facility] Name Value Range Interpretation Code Description Data Annette rce(s) Supporting Document(s) Prothrombin Time 42.7 s 12.5-14.3 [facility] ([facility]) Inr 4.36 [facility] ([facility]) THERAPUTIC HUMAN INR VALUES INDICATIONS NORMAL RANGES PROPHYLAXIS/TREATMENT OF: VENOUS THROMBOSIS 2.0-3.0 PULMONARY EMBOLISM 2.0-3.0 PREVENTION OF SYSTEMIC EMBOLISM FROM: TISSUE HEART VALVES 2.0-3.0 ACUTE MYOCARDIAL INFARCTION 2.0-3.0 VALVULAR HEART DISEASE 2.0-3.0 ATRIAL FIBRILLATION 2.0-3.0 MECHANICAL VALVES(HIGH RISK) 2.5-3.5 RECURRENT MYOCARDIAL INFARCTION 2.5-3.5 ID Date Data Source [id number] 05/31/2020 12:40:00 PM EST [facility] ([facility]) Name Value Range Interpretation Code Description Data Annette rce(s) Supporting Document(s) Inr 3.31 MED[facility] ([facility] THERAPUTIC HUMAN INR VALUES INDICATIONS NORMAL RANGES PROPHYLAXIS/TREATMENT OF: VENOUS THROMBOSIS 2.0-3.0 PULMONARY EMBOLISM 2.0-3.0 PREVENTION OF SYSTEMIC EMBOLISM FROM: TISSUE HEART VALVES 2.0-3.0 ACUTE MYOCARDIAL INFARCTION 2.0-3.0 VALVULAR HEART DISEASE 2.0-3.0 ATRIAL FIBRILLATION 2.0-3.0 MECHANICAL VALVES(HIGH RISK) 2.5-3.5 RECURRENT MYOCARDIAL INFARCTION 2.5-3.5 Prothrombin Time 34.4 s 12.5-14.3 [facility] ([facility]) ID Date Data Source [id number] 04/29/2020 05:38:00 PM EST [facility] Name Value Range Interpretation Code Description Data Annette rce(s) Supporting Document(s) SARS-CoV-2 (COVID 19) NEGATIVE - SARS-CoV-2 (COVID19) [facility] This lab was ordered by [facility] a nd reported by [facility]. ID Date Data Source [id number] 04/12/2020 09:51:00 AM EST MED[facility] ([facility]) Name Value Range Interpretation Code Description Data Annette rce(s) Supporting Document(s) Prothrombin Time 27.0 s 12.5-14.3 [facility] ([facility]) Inr 2.43 MED[facility] ([facility]) THERAPUTIC HUMAN INR VALUES INDICATIONS NORMAL RANGES PROPHYLAXIS/TREATMENT OF: VENOUS THROMBOSIS 2.0-3.0 PULMONARY EMBOLISM 2.0-3.0 PREVENTION OF SYSTEMIC EMBOLISM FROM: TISSUE HEART VALVES 2.0-3.0 ACUTE MYOCARDIAL INFARCTION 2.0-3.0 VALVULAR HEART DISEASE 2.0-3.0 ATRIAL FIBRILLATION 2.0-3.0 MECHANICAL VALVES(HIGH RISK) 2.5-3.5 RECURRENT MYOCARDIAL INFARCTION 2.5-3.5 ID Date Data Source [id number] 04/12/2020 09:51:00 AM EST [facility] ([facility] Name Value Range Interpretation Code Description Data Annette rce(s) Supporting Document(s) Inr 2.43 Normal (applies to non-numeric resul ts) MED[facility] ([facility] THERAPUTIC HUMAN INR VALUES INDICATIONS NORMAL RANGES PROPHYLAXIS/TREATMENT OF: VENOUS THROMBOSIS 2.0-3.0 PULMONARY EMBOLISM 2.0-3.0 PREVENTION OF SYSTEMIC EMBOLISM FROM: TISSUE HEART VALVES 2.0-3.0 ACUTE MYOCARDIAL INFARCTION 2.0-3.0 VALVULAR HEART DISEASE 2.0-3.0 ATRIAL FIBRILLATION 2.0-3.0 MECHANICAL VALVES(HIGH RISK) 2.5-3.5 RECURRENT MYOCARDIAL INFARCTION 2.5-3.5 Prothrombin Time 27.0 s 12.5-14.3 Above high normal M EDRENATA ([facility] ID Date Data Source [id number] 04/07/2020 02:05:00 PM EST MEDENT ([facility] Name Value Range Interpretation Code Description Data [facility](s) Supporting Document(s) WBC 7.8 10E3/uL 4.1-10.9 MED[facility] ([facility] NORMAL RANGES Age WBC [...] HCT IS 5% LESS SOURCE FOR DATA: [employer] 1800 OPERATION MANUAL( AUTOMATED BLOOD COUNTS AND [...] HGB 11.5 g/dL 12.0-18.0 Below low normal [facility] NORMAL [...] HCT IS 5% LESS SOURCE FOR DATA: [employer] 1800 OPERATION MANUAL( AUTOMATED BLOOD COUNTS AND [...] RBC 3.45 10E6/uL 4.20-6.30 Below low normal [facility] NORMAL RANGES [...] HCT IS 5% LESS SOURCE FOR DATA: [employer] 1800 OPERATION MANUAL( AUTOMATED BLOOD COUNTS AND [...] HCT IS 5% LESS SOURCE FOR DATA: [employer] 1800 OPERATION MANUAL( AUTOMATED BLOOD COUNTS AND [...] HCT 34.7 % 37.0-51.0 Below low normal [facility] ( [facility] NORMAL [...] HCT IS 5% LESS SOURCE FOR DATA: [employer] 1800 OPERATION MANUAL( AUTOMATED BLOOD COUNTS AND [...] >32 mL/min Normal MCHC 33.1 g/dL 31.0-36.0 [facility] ([facility] NORMAL [...] HCT IS 5% LESS SOURCE FOR DATA: [employer] 1800 OPERATION MANUAL( AUTOMATED BLOOD COUNTS AND [...] >32 mL/min Normal PLT 205 10E3/uL 140-440 [facility] ([facility] NORMAL RANGES Age WBC RBC HGB [...] HCT IS 5% LESS SOURCE FOR DATA: [employer] 1800 OPERATION MANUAL( AUTOMATED BLOOD COUNTS AND [...] MCH 33.3 pg 26.0-32.0 Above high normal [facility] ([facility] NORMAL RANGES Age WBC [...] RDW-CV 16.1 % 11.5-14.5 Above high normal [facility] NORMAL RANGES [...] HCT IS 5% LESS SOURCE FOR DATA: [employer] 1800 OPERATION MANUAL( AUTOMATED BLOOD COUNTS AND [...] Lym% 9.2 % 10.0-58.5 Below low normal [facility] ( [facility] NORMAL [...] HCT IS 5% LESS SOURCE FOR DATA: [employer] 1800 OPERATION MANUAL( AUTOMATED BLOOD COUNTS AND [...] >32 mL/min Normal Neut% 77.1 % 37.0-92.0 [facility] ([facility] NORMAL [...] HCT IS 5% LESS SOURCE FOR DATA: [employer] 1800 OPERATION MANUAL( AUTOMATED BLOOD COUNTS AND [...] >32 mL/min Normal MXD% 13.7 % 0.1-24.0 [facility] ([facility] NORMAL [...] HCT IS 5% LESS SOURCE FOR DATA: [employer] 1800 OPERATION MANUAL( AUTOMATED BLOOD COUNTS AND [...] MXD# 1.1 10E3/uL 0.0-1.8 [facility] ([facility] NORMAL RANGES Age WBC [...] HCT IS 5% LESS SOURCE FOR DATA: [employer] 1800 OPERATION MANUAL( AUTOMATED BLOOD COUNTS AND [...] >32 mL/min Normal Neut# 6.0 % 2.0-7.8 [facility] NORMAL RANGES Age [...] HCT IS 5% LESS SOURCE FOR DATA: [employer] 1800 OPERATION MANUAL( AUTOMATED BLOOD COUNTS AND [...] mL/min Normal Lym# 0.7 10E3/uL 0.6-4.1 [facility] ([facility] NORMAL RANGES Age WBC [...] HCT IS 5% LESS SOURCE FOR DATA: [employer] 1800 OPERATION MANUAL( AUTOMATED BLOOD COUNTS AND [...] mL/min Normal MPV 11.0 fL 9.0-13.0 [facility] NORMAL RANGES Age WBC [...] HCT IS 5% LESS SOURCE FOR DATA: [employer] 1800 OPERATION MANUAL( AUTOMATED BLOOD COUNTS AND [...] >32 mL/min Normal ID Date Data Source [id number] 04/07/2020 02:05:00 PM EST MEDENT (Famil y [...] HCT IS 5% LESS SOURCE FOR DATA: [employer] DYN 1800 OPERATION MANUAL( AUTOMATED BLOOD COUNTS [...] >32 mL/min Normal Glu 87 mg/dL 70-110 [facility] NORMAL RANGES Age [...] HCT IS 5% LESS SOURCE FOR DATA: [employer] 1800 OPERATION MANUAL( AUTOMATED BLOOD COUNTS AND [...] >32 mL/min Normal BUN/Creatinine Ratio 30.6 CALC [employer] ([facility] NORMAL RANGES Age [...] HCT IS 5% LESS SOURCE FOR DATA: [employer] 1800 OPERATION MANUAL( AUTOMATED BLOOD COUNTS AND [...] HCT IS 5% LESS SOURCE FOR DATA: [employer] 1800 OPERATION MANUAL( AUTOMATED BLOOD COUNTS AND [...] >32 mL/min Normal CA 9.0 mg/dL 8.6-10.2 [facility] ([facility] NORMAL [...] HCT IS 5% LESS SOURCE FOR DATA: [employer] 1800 OPERATION MANUAL( AUTOMATED BLOOD COUNTS AND [...] >32 mL/min Normal Co2 28.1 mmol/L 22.0-29.0 [facility] ([facility] NORMAL RANGES Age WBC [...] HCT IS 5% LESS SOURCE FOR DATA: [employer] 1800 OPERATION MANUAL( AUTOMATED BLOOD COUNTS AND [...] >32 mL/min Normal Na 138 mmol/L 136-145 [facility] ([facility] NORMAL RANGES Age [...] HCT IS 5% LESS SOURCE FOR DATA: [employer] 1800 OPERATION MANUAL( AUTOMATED BLOOD COUNTS AND [...] >32 mL/min Normal K 3.8 mmol/L 3.5-5.1 [facility] ([facility] NORMAL [...] HCT IS 5% LESS SOURCE FOR DATA: [employer] 1800 OPERATION MANUAL( AUTOMATED BLOOD COUNTS AND [...] >32 mL/min Normal Anion Gap 15 mmol/L [facility] ([facility] NORMAL RANGES Age WBC [...] HCT IS 5% LESS SOURCE FOR DATA: [employer] 1800 OPERATION MANUAL( AUTOMATED BLOOD COUNTS AND [...] >32 mL/min Normal CL 98.2 mmol/L 98.0-107.0 [employer] ([facility] NORMAL RANGES Age WBC [...] mL/min Normal eGFR 60 # LILLIAN ( [facility] NORMAL RANGES Age WBC [...] HCT IS 5% LESS SOURCE FOR DATA: [employer] 1800 OPERATION MANUAL( AUTOMATED BLOOD COUNTS AND [...] and above >32 mL/min Normal eGFR Non-Afr. Senegalese 52 # [facility] ([facility] [...] HCT IS 5% LESS SOURCE FOR DATA: [employer] 1800 OPERATION MANUAL( AUTOMATED BLOOD COUNTS AND [...] >32 mL/min Normal ID Date Data Source [id number] 03/25/2020 11:05:00 AM EST [facility] ([facility]) Name Value Range Interpretation Code Description Data Annette rce(s) Supporting Document(s) Prothrombin Time 35.0 s 12.5-14.3 [facility] ([facility]) Inr 3.38 [facility] (Cardiology [facility]) THERAPUTIC HUMAN INR VALUES INDICATIONS NORMAL RANGES PROPHYLAXIS/TREATMENT OF: VENOUS THROMBOSIS 2.0-3.0 PULMONARY EMBOLISM 2.0-3.0 PREVENTION OF SYSTEMIC EMBOLISM FROM: TISSUE HEART VALVES 2.0-3.0 ACUTE MYOCARDIAL INFARCTION 2.0-3.0 VALVULAR HEART DISEASE 2.0-3.0 ATRIAL FIBRILLATION 2.0-3.0 MECHANICAL VALVES(HIGH RISK) 2.5-3.5 RECURRENT MYOCARDIAL INFARCTION 2.5-3.5 ID Date Data Source [id number] 03/25/2020 11:05:00 AM EST MED[facility] ([facility] Name Value Range Interpretation Code Description Data Annette rce(s) Supporting Document(s) Prothrombin Time 35.0 s 12.5-14.3 Above high normal M EDENT ([facility] Inr 3.38 Normal (applies to non-numeric resul ts) MEDRENATA ([facility] THERAPUTIC HUMAN INR VALUES INDICATIONS NORMAL RANGES PROPHYLAXIS/TREATMENT OF: VENOUS THROMBOSIS 2.0-3.0 PULMONARY EMBOLISM 2.0-3.0 PREVENTION OF SYSTEMIC EMBOLISM FROM: TISSUE HEART VALVES 2.0-3.0 ACUTE MYOCARDIAL INFARCTION 2.0-3.0 VALVULAR HEART DISEASE 2.0-3.0 ATRIAL FIBRILLATION 2.0-3.0 MECHANICAL VALVES(HIGH RISK) 2.5-3.5 RECURRENT MYOCARDIAL INFARCTION 2.5-3.5 ID Date Data Source [id number] 03/01/2020 09:02:00 AM EST LILLIAN ([facility] Name Value Range Interpretation Code Description Data Annette rce(s) Supporting Document(s) Chol 140 mg/dL 0-200 [facility] NORMAL RANGES Age WBC [...] HCT IS 5% LESS SOURCE FOR DATA: [employer] DYN 1800 OPERATION MANUAL( AUTOMATED BLOOD COUNTS [...] HCT IS 5% LESS SOURCE FOR DATA: [employer] 1800 OPERATION MANUAL( AUTOMATED BLOOD COUNTS AND [...] YEARS EXCLUSIVE. LDL_C 86 Calc 75-129 [facility] ([facility] NORMAL RANGES Age WBC [...] HCT IS 5% LESS SOURCE FOR DATA: [employer] 1800 OPERATION MANUAL( AUTOMATED BLOOD COUNTS AND [...] HCT IS 5% LESS SOURCE FOR DATA: [employer] 1800 OPERATION MANUAL( AUTOMATED BLOOD COUNTS AND [...] Cho/HDL Ratio 4.4 CALC [facility] ([facility] NORMAL RANGES Age WBC [...] HCT IS 5% LESS SOURCE FOR DATA: [employer] 1800 OPERATION MANUAL( AUTOMATED BLOOD COUNTS AND [...] 2-19 YEARS EXCLUSIVE. ID Date Data Source [id number] 03/01/2020 09:02:00 AM EST MEDENT (Famil y [...] HCT IS 5% LESS SOURCE FOR DATA: [employer] DYN 1800 OPERATION MANUAL( AUTOMATED BLOOD COUNTS [...] 2-19 YEARS EXCLUSIVE. Glu 98 mg/dL 70-110 [facility] ([facility] NORMAL [...] HCT IS 5% LESS SOURCE FOR DATA: [employer] 1800 OPERATION MANUAL( AUTOMATED BLOOD COUNTS AND [...] 2-19 YEARS EXCLUSIVE. BUN/Creatinine Ratio 24.6 CALC [facility] ([facility] NORMAL RANGES Age [...] HCT IS 5% LESS SOURCE FOR DATA: [employer] 1800 OPERATION MANUAL( AUTOMATED BLOOD COUNTS AND [...] HCT IS 5% LESS SOURCE FOR DATA: [employer] 1800 OPERATION MANUAL( AUTOMATED BLOOD COUNTS AND [...] 2-19 YEARS EXCLUSIVE. Na 138 mmol/L 136-145 [facility] ([facility] NORMAL [...] HCT IS 5% LESS SOURCE FOR DATA: [employer] 1800 OPERATION MANUAL( AUTOMATED BLOOD COUNTS AND [...] 2-19 YEARS EXCLUSIVE. K 4.3 mmol/L 3.5-5.1 [facility] ([facility] NORMAL [...] HCT IS 5% LESS SOURCE FOR DATA: [employer] 1800 OPERATION MANUAL( AUTOMATED BLOOD COUNTS AND [...] 2-19 YEARS EXCLUSIVE. CL 101.8 mmol/L 98.0-107.0 [facility] ([facility] [employer], [facility] NORMAL RANGES Age WBC RBC HGB [...] HCT IS 5% LESS SOURCE FOR DATA: [employer] 1800 OPERATION MANUAL( AUTOMATED BLOOD COUNTS AND [...] 2-19 YEARS EXCLUSIVE. Co2 24.3 mmol/L 22.0-29.0 [facility] ([facility] NORMAL RANGES Age WBC [...] HCT IS 5% LESS SOURCE FOR DATA: [employer] 1800 OPERATION MANUAL( AUTOMATED BLOOD COUNTS AND [...] TP 6.2 g/dL 6.6-8.7 Below low normal [facility] ( [facility] NORMAL RANGES Age WBC [...] HCT IS 5% LESS SOURCE FOR DATA: [employer] 1800 OPERATION MANUAL( AUTOMATED BLOOD COUNTS AND [...] 2-19 YEARS EXCLUSIVE. CA 9.1 mg/dL 8.6-10.2 [facility] ([facility] NORMAL [...] HCT IS 5% LESS SOURCE FOR DATA: [employer] DYN 1800 OPERATION MANUAL( AUTOMATED BLOOD COUNTS [...] HCT IS 5% LESS SOURCE FOR DATA: [employer] 1800 OPERATION MANUAL( AUTOMATED BLOOD COUNTS AND [...] YEARS EXCLUSIVE. A/G Ratio 1.5 CALC [facility] ([facility] NORMAL RANGES Age [...] HCT IS 5% LESS SOURCE FOR DATA: [employer] 1800 OPERATION MANUAL( AUTOMATED BLOOD COUNTS AND [...] 2-19 YEARS EXCLUSIVE. Alp 66.3 U/L 40-129 [facility] ([facility] NORMAL [...] HCT IS 5% LESS SOURCE FOR DATA: [employer] 1800 OPERATION MANUAL( AUTOMATED BLOOD COUNTS AND [...] HCT IS 5% LESS SOURCE FOR DATA: [employer] 1800 OPERATION MANUAL( AUTOMATED BLOOD COUNTS AND [...] YEARS EXCLUSIVE. Alt (SGPT) 2 U/L 0-41 [facility] ([facility] NORMAL RANGES Age [...] HCT IS 5% LESS SOURCE FOR DATA: [employer] 1800 OPERATION MANUAL( AUTOMATED BLOOD COUNTS AND [...] YEARS EXCLUSIVE. Ast (Sgot) 15 U/L 0-40 [facility] NORMAL RANGES Age [...] HCT IS 5% LESS SOURCE FOR DATA: [employer] 1800 OPERATION MANUAL( AUTOMATED BLOOD COUNTS AND [...] HCT IS 5% LESS SOURCE FOR DATA: [employer] 1800 OPERATION MANUAL( AUTOMATED BLOOD COUNTS AND [...] IS 5% LESS SOURCE FOR DATA: [employer] 1800 OPERATION MANUAL( AUTOMATED BLOOD COUNTS AND [...] HCT IS 5% LESS SOURCE FOR DATA: [employer] 1800 OPERATION MANUAL( AUTOMATED BLOOD COUNTS AND [...] HCT IS 5% LESS SOURCE FOR DATA: [employer] 1800 OPERATION MANUAL( AUTOMATED BLOOD COUNTS AND [...] INDIVIDUALA AGED 2-19 YEARS EXCLUSIVE. eGFR Non-Afr. Senegalese 47 # [facility] ([facility] [...] 2-19 YEARS EXCLUSIVE. ID Date Data Source [id number] 03/01/2020 09:02:00 AM EST LILLIAN ([facility] Name Value Range Interpretation Code Description Data Annette rce(s) Supporting Document(s) WBC 6.7 10E3/uL 4.1-10.9 [facility] ([facility] NORMAL RANGES Age [...] HCT IS 5% LESS SOURCE FOR DATA: [employer] 1800 OPERATION MANUAL( AUTOMATED BLOOD COUNTS AND [...] RBC 3.51 10E6/uL 4.20-6.30 Below low normal [facility] ([facility] NORMAL RANGES Age WBC [...] HCT IS 5% LESS SOURCE FOR DATA: [employer] 1800 OPERATION MANUAL( AUTOMATED BLOOD COUNTS AND [...] HGB 11.4 g/dL 12.0-18.0 Below low normal [facility] ( [facility] NORMAL [...] HCT IS 5% LESS SOURCE FOR DATA: [employer] 1800 OPERATION MANUAL( AUTOMATED BLOOD COUNTS AND [...] HCT IS 5% LESS SOURCE FOR DATA: [employer] 1800 OPERATION MANUAL( AUTOMATED BLOOD COUNTS AND [...] HCT 34.7 % 37.0-51.0 Below low normal [facility] ( [facility] NORMAL RANGES Age WBC [...] HCT IS 5% LESS SOURCE FOR DATA: [employer] 1800 OPERATION MANUAL( AUTOMATED BLOOD COUNTS AND [...] MCH 32.5 pg 26.0-32.0 Above high normal [facility] ([facility] NORMAL RANGES [...] HCT IS 5% LESS SOURCE FOR DATA: [employer] 1800 OPERATION MANUAL( AUTOMATED BLOOD COUNTS AND [...] HCT IS 5% LESS SOURCE FOR DATA: [employer] 1800 OPERATION MANUAL( AUTOMATED BLOOD COUNTS AND [...] 2-19 YEARS EXCLUSIVE. PLT 149 10E3/uL 140-440 [facility] ([facility] NORMAL RANGES Age WBC RBC HGB [...] HCT IS 5% LESS SOURCE FOR DATA: [employer] 1800 OPERATION MANUAL( AUTOMATED BLOOD COUNTS AND [...] 2-19 YEARS EXCLUSIVE. Neut% 75.8 % 37.0-92.0 [facility] ([facility] NORMAL [...] HCT IS 5% LESS SOURCE FOR DATA: [employer] 1800 OPERATION MANUAL( AUTOMATED BLOOD COUNTS AND [...] HCT IS 5% LESS SOURCE FOR DATA: [employer] 1800 OPERATION MANUAL( AUTOMATED BLOOD COUNTS AND [...] RDW-CV 15.4 % 11.5-14.5 Above high normal [facility] ([facility] NORMAL RANGES [...] 2-19 YEARS EXCLUSIVE. Lym# 0.7 10E3/uL 0.6-4.1 [facility] ([facility] NORMAL RANGES Age WBC [...] HCT IS 5% LESS SOURCE FOR DATA: [employer] 1800 OPERATION MANUAL( AUTOMATED BLOOD COUNTS AND [...] HCT IS 5% LESS SOURCE FOR DATA: [employer] 1800 OPERATION MANUAL( AUTOMATED BLOOD COUNTS AND [...] 2-19 YEARS EXCLUSIVE. MXD# 1.0 10E3/uL 0.0-1.8 [employer] ([facility] NORMAL RANGES Age WBC [...] HCT IS 5% LESS SOURCE FOR DATA: [employer] DYN 1800 OPERATION MANUAL( AUTOMATED BLOOD COUNTS [...] 2-19 YEARS EXCLUSIVE. Neut# 5.0 % 2.0-7.8 [facility] ([facility] NORMAL [...] HCT IS 5% LESS SOURCE FOR DATA: [employer] 1800 OPERATION MANUAL( AUTOMATED BLOOD COUNTS AND [...] 2-19 YEARS EXCLUSIVE. MPV 10.9 fL 9.0-13.0 [facility] ([facility] NORMAL [...] HCT IS 5% LESS SOURCE FOR DATA: [employer] 1800 OPERATION MANUAL( AUTOMATED BLOOD COUNTS AND [...] 2-19 YEARS EXCLUSIVE. ID Date Data Source [id number] 02/25/2020 08:11:00 AM EST MEDENT ([facility]) Name Value Range Interpretation Code Description Data Annette rce(s) Supporting Document(s) Prothrombin Time 27.4 s 12.5-14.3 [facility] ([facility]) Inr 2.48 [facility] ([facility]) THERAPUTIC HUMAN INR VALUES INDICATIONS NORMAL RANGES PROPHYLAXIS/TREATMENT OF: VENOUS THROMBOSIS 2.0-3.0 PULMONARY EMBOLISM 2.0-3.0 PREVENTION OF SYSTEMIC EMBOLISM FROM: TISSUE HEART VALVES 2.0-3.0 ACUTE MYOCARDIAL INFARCTION 2.0-3.0 VALVULAR HEART DISEASE 2.0-3.0 ATRIAL FIBRILLATION 2.0-3.0 MECHANICAL VALVES(HIGH RISK) 2.5-3.5 RECURRENT MYOCARDIAL INFARCTION 2.5-3.5 ID Date Data Source [id number] 02/25/2020 08:11:00 AM EST [facility] ([facility] Name Value Range Interpretation Code Description Data Annette rce(s) Supporting Document(s) Prothrombin Time 27.4 s 12.5-14.3 Above high normal M [facility] ([facility] Inr 2.48 Normal (applies to non-numeric resul ts) [facility] ([facility] THERAPUTIC HUMAN INR VALUES INDICATIONS NORMAL RANGES PROPHYLAXIS/TREATMENT OF: VENOUS THROMBOSIS 2.0-3.0 PULMONARY EMBOLISM 2.0-3.0 PREVENTION OF SYSTEMIC EMBOLISM FROM: TISSUE HEART VALVES 2.0-3.0 ACUTE MYOCARDIAL INFARCTION 2.0-3.0 VALVULAR HEART DISEASE 2.0-3.0 ATRIAL FIBRILLATION 2.0-3.0 MECHANICAL VALVES(HIGH RISK) 2.5-3.5 RECURRENT MYOCARDIAL INFARCTION 2.5-3.5 ID Date Data Source [id number] 02/17/2020 03:19:00 PM EDT [facility] ([employer] [facility] Name Value Range Interpretation Code Description Data Annette rce(s) Supporting Document(s) INR in Platelet poor plasma by Coagulation assay 3.6 [facility] ([employer] [facility] Prothrombin Time-Therapy 43.0 MEDEN T ([facility] ID Date Data Source [id number] 02/17/2020 03:19:00 PM EDT [facility] ([employer] [facility] Name Value Range Interpretation Code Description Data Annette rce(s) Supporting Document(s) WBC 11.3 10E3/uL 4.1-10.9 Above high normal MEDEN T ([employer] [facility] NORMAL RANGES Age WBC RBC [...] HCT IS 5% LESS SOURCE FOR DATA: [employer] 1800 OPERATION MANUAL( AUTOMATED BLOOD COUNTS AND [...] >32 mL/min Normal RBC 4.22 10E6/uL 4.20-6.30 [facility] ([facility] NORMAL RANGES Age WBC [...] HCT IS 5% LESS SOURCE FOR DATA: [employer] 1800 OPERATION MANUAL( AUTOMATED BLOOD COUNTS AND [...] >32 mL/min Normal HCT 40.8 % 37.0-51.0 [facility] ([facility] NORMAL [...] HCT IS 5% LESS SOURCE FOR DATA: [employer] 1800 OPERATION MANUAL( AUTOMATED BLOOD COUNTS AND [...] HCT IS 5% LESS SOURCE FOR DATA: [employer] 1800 OPERATION MANUAL( AUTOMATED BLOOD COUNTS AND [...] HCT IS 5% LESS SOURCE FOR DATA: [employer] 1800 OPERATION MANUAL( AUTOMATED BLOOD COUNTS AND [...] MCH 32.7 pg 26.0-32.0 Above high normal [facility] ([facility] NORMAL RANGES Age WBC [...] HCT IS 5% LESS SOURCE FOR DATA: [employer] 1800 OPERATION MANUAL( AUTOMATED BLOOD COUNTS AND [...] >32 mL/min Normal PLT 186 10E3/uL 140-440 [facility] ([facility] NORMAL RANGES Age WBC RBC HGB [...] HCT IS 5% LESS SOURCE FOR DATA: [employer] 1800 OPERATION MANUAL( AUTOMATED BLOOD COUNTS AND [...] >32 mL/min Normal MCHC 33.8 g/dL 31.0-36.0 [facility] ([facility] [employer] NORMAL RANGES Age WBC RBC HGB [...] HCT IS 5% LESS SOURCE FOR DATA: [employer] 1800 OPERATION MANUAL( AUTOMATED BLOOD COUNTS AND [...] RDW-CV 14.7 % 11.5-14.5 Above high normal [facility] ([facility] NORMAL RANGES [...] Lym% 8.0 % 10.0-58.5 Below low normal [facility] ( [facility] NORMAL [...] HCT IS 5% LESS SOURCE FOR DATA: [employer] 1800 OPERATION MANUAL( AUTOMATED BLOOD COUNTS AND [...] >32 mL/min Normal Neut% 75.7 % 37.0-92.0 [facility] ([facility] NORMAL [...] HCT IS 5% LESS SOURCE FOR DATA: [employer] 1800 OPERATION MANUAL( AUTOMATED BLOOD COUNTS AND [...] >32 mL/min Normal Lym# 0.9 10E3/uL 0.6-4.1 [facility] ([facility] NORMAL RANGES Age WBC [...] HCT IS 5% LESS SOURCE FOR DATA: [employer] 1800 OPERATION MANUAL( AUTOMATED BLOOD COUNTS AND [...] HCT IS 5% LESS SOURCE FOR DATA: [employer] 1800 OPERATION MANUAL( AUTOMATED BLOOD COUNTS AND [...] HCT IS 5% LESS SOURCE FOR DATA: [employer] 1800 OPERATION MANUAL( AUTOMATED BLOOD COUNTS AND [...] >32 mL/min Normal MXD# 1.8 10E3/uL 0.0-1.8 [facility] NORMAL RANGES Age WBC [...] HCT IS 5% LESS SOURCE FOR DATA: [employer] 1800 OPERATION MANUAL( AUTOMATED BLOOD COUNTS AND [...] >32 mL/min Normal MPV 12.4 fL 9.0-13.0 [facility] ([facility] NORMAL RANGES [...] HCT IS 5% LESS SOURCE FOR DATA: [employer] 1800 OPERATION MANUAL( AUTOMATED BLOOD COUNTS AND [...] >32 mL/min Normal ID Date Data Source [id number] 02/17/2020 03:19:00 PM EDT [facility] ([facility] Name Value Range Interpretation Code Description Data Annette rce(s) Supporting Document(s) Glu 106 mg/dL 70-110 [facility] ([facility] NORMAL RANGES Age WBC [...] BUN 81 mg/dL 8-23 Above high normal [facility] ([facility] NORMAL RANGES Age WBC [...] HCT IS 5% LESS SOURCE FOR DATA: [employer] 1800 OPERATION MANUAL( AUTOMATED BLOOD COUNTS AND [...] HCT IS 5% LESS SOURCE FOR DATA: [employer] 1800 OPERATION MANUAL( AUTOMATED BLOOD COUNTS AND [...] >32 mL/min Normal BUN/Creatinine Ratio 41.9 Calc [facility] ([facility] NORMAL RANGES Age [...] HCT IS 5% LESS SOURCE FOR DATA: [employer] 1800 OPERATION MANUAL( AUTOMATED BLOOD COUNTS AND [...] Na 134 mmol/L 136-145 Below low normal [facility] ( [facility] NORMAL [...] HCT IS 5% LESS SOURCE FOR DATA: [employer] 1800 OPERATION MANUAL( AUTOMATED BLOOD COUNTS AND [...] >32 mL/min Normal K 3.5 mmol/L 3.5-5.1 [facility] NORMAL RANGES Age [...] HCT IS 5% LESS SOURCE FOR DATA: [employer] 1800 OPERATION MANUAL( AUTOMATED BLOOD COUNTS AND [...] HCT IS 5% LESS SOURCE FOR DATA: [employer] 1800 OPERATION MANUAL( AUTOMATED BLOOD COUNTS AND [...] 89.1 mmol/L 98.0-107.0 Below low normal [facility] ([facility] NORMAL RANGES Age WBC [...] HCT IS 5% LESS SOURCE FOR DATA: [employer] 1800 OPERATION MANUAL( AUTOMATED BLOOD COUNTS AND [...] >32 mL/min Normal Co2 28.1 mmol/L 22.0-29.0 [facility] ([facility] NORMAL RANGES Age WBC RBC HGB [...] HCT IS 5% LESS SOURCE FOR DATA: [employer] 1800 OPERATION MANUAL( AUTOMATED BLOOD COUNTS AND [...] >32 mL/min Normal A/G Ratio 1.4 Calc [facility] ([facility] NORMAL RANGES Age [...] HCT IS 5% LESS SOURCE FOR DATA: [employer] 1800 OPERATION MANUAL( AUTOMATED BLOOD COUNTS AND [...] >32 mL/min Normal Alb 4.4 g/dL 3.5-5.2 [facility] ([facility] NORMAL RANGES Age WBC [...] >32 mL/min Normal TP 7.6 g/dL 6.6-8.7 [facility] ([facility] NORMAL RANGES Age WBC [...] HCT IS 5% LESS SOURCE FOR DATA: [employer] 1800 OPERATION MANUAL( AUTOMATED BLOOD COUNTS AND [...] mL/min Normal Globulin 3.2 Calc [facility] ([facility] NORMAL RANGES Age WBC [...] HCT IS 5% LESS SOURCE FOR DATA: [employer] 1800 OPERATION MANUAL( AUTOMATED BLOOD COUNTS AND [...] mL/min Normal Alp 82.2 U/L 40-129 [facility] ([facility] NORMAL RANGES Age [...] HCT IS 5% LESS SOURCE FOR DATA: [employer] 1800 OPERATION MANUAL( AUTOMATED BLOOD COUNTS AND [...] mL/min Normal Alt (SGPT) 9 U/L 0-41 [facility] ([facility] NORMAL RANGES Age [...] HCT IS 5% LESS SOURCE FOR DATA: [employer] 1800 OPERATION MANUAL( AUTOMATED BLOOD COUNTS AND [...] >32 mL/min Normal Tbili 0.84 mg/dL 0.0-1.2 [facility] ([facility] NORMAL RANGES Age [...] HCT IS 5% LESS SOURCE FOR DATA: [employer] 1800 OPERATION MANUAL( AUTOMATED BLOOD COUNTS AND [...] mL/min Normal Ast (Sgot) 22 U/L 0-40 [facility] ([facility] NORMAL RANGES Age [...] HCT IS 5% LESS SOURCE FOR DATA: [employer] 1800 OPERATION MANUAL( AUTOMATED BLOOD COUNTS AND [...] mL/min Normal Osmolality-Calculated 293.2 Calc MED [facility] ([facility] NORMAL RANGES Age WBC [...] HCT IS 5% LESS SOURCE FOR DATA: [employer] 1800 OPERATION MANUAL( AUTOMATED BLOOD COUNTS AND [...] mL/min Normal Anion Gap 20 mmol/L [facility] ([facility] NORMAL RANGES Age WBC [...] HCT IS 5% LESS SOURCE FOR DATA: [employer] 1800 OPERATION MANUAL( AUTOMATED BLOOD COUNTS AND [...] mL/min Normal eGFR 38 # [facility] ( [facility] NORMAL RANGES Age WBC [...] HCT IS 5% LESS SOURCE FOR DATA: [employer] 1800 OPERATION MANUAL( AUTOMATED BLOOD COUNTS AND [...] and above >32 mL/min Normal eGFR Non-Afr. Senegalese 33 # [facility] ([facility] [...] HCT IS 5% LESS SOURCE FOR DATA: [employer] 1800 OPERATION MANUAL( AUTOMATED BLOOD COUNTS AND [...] >32 mL/min Normal ID Date Data Source [id number] 02/10/2020 10:05:00 AM EDT [facility] ([facility]) Name Value Range Interpretation Code Description Data Annette rce(s) Supporting Document(s) Prothrombin Time 25.5 s 12.5-14.3 [facility] ([facility]i [facility]) Inr 2.26 [facility] (Cardiology [facility]) THERAPUTIC HUMAN INR VALUES INDICATIONS NORMAL RANGES PROPHYLAXIS/TREATMENT OF: VENOUS THROMBOSIS 2.0-3.0 PULMONARY EMBOLISM 2.0-3.0 PREVENTION OF SYSTEMIC EMBOLISM FROM: TISSUE HEART VALVES 2.0-3.0 ACUTE MYOCARDIAL INFARCTION 2.0-3.0 VALVULAR HEART DISEASE 2.0-3.0 ATRIAL FIBRILLATION 2.0-3.0 MECHANICAL VALVES(HIGH RISK) 2.5-3.5 RECURRENT MYOCARDIAL INFARCTION 2.5-3.5 ID Date Data Source [id number] 02/10/2020 10:05:00 AM EDT [facility] ([facility] Name Value Range Interpretation Code Description Data Annette rce(s) Supporting Document(s) Prothrombin Time 25.5 s 12.5-14.3 Above high normal M [facility] ([facility] [facility] Inr 2.26 Normal (applies to non-numeric resul ts) MEDENT ([facility] THERAPUTIC HUMAN INR VALUES INDICATIONS NORMAL RANGES PROPHYLAXIS/TREATMENT OF: VENOUS THROMBOSIS 2.0-3.0 PULMONARY EMBOLISM 2.0-3.0 PREVENTION OF SYSTEMIC EMBOLISM FROM: TISSUE HEART VALVES 2.0-3.0 ACUTE MYOCARDIAL INFARCTION 2.0-3.0 VALVULAR HEART DISEASE 2.0-3.0 ATRIAL FIBRILLATION 2.0-3.0 MECHANICAL VALVES(HIGH RISK) 2.5-3.5 RECURRENT MYOCARDIAL INFARCTION 2.5-3.5 ID Date Data Source [id number] 01/12/2020 08:57:00 AM EDT [facility] ([facility]) Name Value Range Interpretation Code Description Data Annette rce(s) Supporting Document(s) Prothrombin Time 34.0 s 12.5-14.3 [facility] ([facility]) Inr 3.26 MED[facility] ([facility]) THERAPUTIC HUMAN INR VALUES INDICATIONS NORMAL RANGES PROPHYLAXIS/TREATMENT OF: VENOUS THROMBOSIS 2.0-3.0 PULMONARY EMBOLISM 2.0-3.0 PREVENTION OF SYSTEMIC EMBOLISM FROM: TISSUE HEART VALVES 2.0-3.0 ACUTE MYOCARDIAL INFARCTION 2.0-3.0 VALVULAR HEART DISEASE 2.0-3.0 ATRIAL FIBRILLATION 2.0-3.0 MECHANICAL VALVES(HIGH RISK) 2.5-3.5 RECURRENT MYOCARDIAL INFARCTION 2.5-3.5 ID Date Data Source [id number] 01/12/2020 08:57:00 AM EDT MEDENT ([facility] Name Value Range Interpretation Code Description Data Annette rce(s) Supporting Document(s) Prothrombin Time 34.0 s 12.5-14.3 Above high normal M EDENT ([facility] Inr 3.26 Normal (applies to non-numeric resul ts) MEDENT ([facility] THERAPUTIC HUMAN INR VALUES INDICATIONS NORMAL RANGES PROPHYLAXIS/TREATMENT OF: VENOUS THROMBOSIS 2.0-3.0 PULMONARY EMBOLISM 2.0-3.0 PREVENTION OF SYSTEMIC EMBOLISM FROM: TISSUE HEART VALVES 2.0-3.0 ACUTE MYOCARDIAL INFARCTION 2.0-3.0 VALVULAR HEART DISEASE 2.0-3.0 ATRIAL FIBRILLATION 2.0-3.0 MECHANICAL VALVES(HIGH RISK) 2.5-3.5 RECURRENT MYOCARDIAL INFARCTION 2.5-3.5 ID Date Data Source [id number] 12/30/2019 02:49:00 PM EDT LILLIAN ([facility] Name Value Range Interpretation Code Description Data Annette rce(s) Supporting Document(s) Glu 96 mg/dL 70-110 LILLIAN ([facility] NORMAL RANGES Age [...] HCT IS 5% LESS SOURCE FOR DATA: [employer] 1800 OPERATION MANUAL( AUTOMATED BLOOD COUNTS AND [...] BUN 31 mg/dL 8-23 Above high normal [facility] NORMAL RANGES Age [...] HCT IS 5% LESS SOURCE FOR DATA: [employer] 1800 OPERATION MANUAL( AUTOMATED BLOOD COUNTS AND [...] HCT IS 5% LESS SOURCE FOR DATA: [employer] DYN 1800 OPERATION MANUAL( AUTOMATED BLOOD COUNTS [...] >32 mL/min Normal BUN/Creatinine Ratio 23.0 CALC [employer] ([facility] NORMAL RANGES Age WBC RBC [...] HCT IS 5% LESS SOURCE FOR DATA: [employer] 1800 OPERATION MANUAL( AUTOMATED BLOOD COUNTS AND [...] >32 mL/min Normal CA 8.6 mg/dL 8.6-10.2 [facility] NORMAL RANGES Age [...] HCT IS 5% LESS SOURCE FOR DATA: [employer] 1800 OPERATION MANUAL( AUTOMATED BLOOD COUNTS AND [...] >32 mL/min Normal Co2 23.0 mmol/L 22.0-29.0 [facility] ([facility] NORMAL RANGES Age WBC [...] HCT IS 5% LESS SOURCE FOR DATA: [employer] 1800 OPERATION MANUAL( AUTOMATED BLOOD COUNTS AND [...] >32 mL/min Normal Na 139 mmol/L 136-145 [facility] ([facility] NORMAL RANGES Age [...] HCT IS 5% LESS SOURCE FOR DATA: [employer] 1800 OPERATION MANUAL( AUTOMATED BLOOD COUNTS AND [...] mL/min Normal K 4.4 mmol/L 3.5-5.1 MEDRENATA ([facility] NORMAL RANGES Age [...] HCT IS 5% LESS SOURCE FOR DATA: [employer] 1800 OPERATION MANUAL( AUTOMATED BLOOD COUNTS AND [...] >32 mL/min Normal CL 105.2 mmol/L 98.0-107.0 [facility] ([facility] NORMAL RANGES Age [...] HCT IS 5% LESS SOURCE FOR DATA: [employer] 1800 OPERATION MANUAL( AUTOMATED BLOOD COUNTS AND [...] >32 mL/min Normal Anion Gap 15 mmol/L [facility] NORMAL RANGES Age WBC [...] HCT IS 5% LESS SOURCE FOR DATA: [employer] 1800 OPERATION MANUAL( AUTOMATED BLOOD COUNTS AND [...] mL/min Normal eGFR 55 # MEDENT ( [facility] CKD-EPI eGFR Non-Afr. Senegalese 47 # MEDRENATA ([facility] CKD-EPI ID Date Data Source [id number] 12/30/2019 02:49:00 PM EDT LILLIAN ([facility] Name Value Range Interpretation Code Description Data Annette rce(s) Supporting Document(s) WBC 6.7 10E3/uL 4.1-10.9 LILLIAN ([facility] NORMAL RANGES Age WBC [...] HCT IS 5% LESS SOURCE FOR DATA: [employer] 1800 OPERATION MANUAL( AUTOMATED BLOOD COUNTS AND [...] RBC 3.50 10E6/uL 4.20-6.30 Below low normal [facility] ([facility] NORMAL RANGES Age WBC [...] HCT IS 5% LESS SOURCE FOR DATA: [employer] 1800 OPERATION MANUAL( AUTOMATED BLOOD COUNTS AND [...] HGB 11.8 g/dL 12.0-18.0 Below low normal [facility] ( [facility] NORMAL [...] HCT IS 5% LESS SOURCE FOR DATA: [employer] 1800 OPERATION MANUAL( AUTOMATED BLOOD COUNTS AND [...] HCT 34.8 % 37.0-51.0 Below low normal [facility] ( [facility] NORMAL [...] HCT IS 5% LESS SOURCE FOR DATA: [employer] 1800 OPERATION MANUAL( AUTOMATED BLOOD COUNTS AND [...] HCT IS 5% LESS SOURCE FOR DATA: [employer] 1800 OPERATION MANUAL( AUTOMATED BLOOD COUNTS AND [...] MCH 33.7 pg 26.0-32.0 Above high normal [facility] ([facility] NORMAL RANGES [...] HCT IS 5% LESS SOURCE FOR DATA: [employer] 1800 OPERATION MANUAL( AUTOMATED BLOOD COUNTS AND [...] >32 mL/min Normal MCHC 33.9 g/dL 31.0-36.0 [facility] ([facility] NORMAL [...] HCT IS 5% LESS SOURCE FOR DATA: [employer] DYN 1800 OPERATION MANUAL( AUTOMATED BLOOD COUNTS [...] >32 mL/min Normal PLT 157 10E3/uL 140-440 [facility] ([facility] NORMAL RANGES Age WBC RBC HGB [...] HCT IS 5% LESS SOURCE FOR DATA: [employer] 1800 OPERATION MANUAL( AUTOMATED BLOOD COUNTS AND [...] RDW-CV 14.8 % 11.5-14.5 Above high normal [facility] ([facility] NORMAL RANGES Age WBC [...] HCT IS 5% LESS SOURCE FOR DATA: [employer] 1800 OPERATION MANUAL( AUTOMATED BLOOD COUNTS AND [...] >32 mL/min Normal Neut% 75.8 % 37.0-92.0 [facility] ([facility] NORMAL [...] HCT IS 5% LESS SOURCE FOR DATA: [employer] DYN 1800 OPERATION MANUAL( AUTOMATED BLOOD COUNTS [...] Lym% 9.4 % 10.0-58.5 Below low normal [facility] ( [facility] NORMAL RANGES Age WBC [...] HCT IS 5% LESS SOURCE FOR DATA: [employer] 1800 OPERATION MANUAL( AUTOMATED BLOOD COUNTS AND [...] >32 mL/min Normal MXD% 14.8 % 0.1-24.0 [facility] ([facility] NORMAL [...] HCT IS 5% LESS SOURCE FOR DATA: [employer] 1800 OPERATION MANUAL( AUTOMATED BLOOD COUNTS AND [...] >32 mL/min Normal Lym# 0.6 10E3/uL 0.6-4.1 [facility] ([facility] NORMAL RANGES Age WBC [...] HCT IS 5% LESS SOURCE FOR DATA: [employer] 1800 OPERATION MANUAL( AUTOMATED BLOOD COUNTS AND [...] >32 mL/min Normal Neut# 5.1 % 2.0-7.8 [facility] ([facility] NORMAL [...] HCT IS 5% LESS SOURCE FOR DATA: [employer] 1800 OPERATION MANUAL( AUTOMATED BLOOD COUNTS AND [...] MXD# 1.0 10E3/uL 0.0-1.8 LILLIAN ([facility] NORMAL RANGES Age WBC [...] HCT IS 5% LESS SOURCE FOR DATA: [employer] 1800 OPERATION MANUAL( AUTOMATED BLOOD COUNTS AND [...] >32 mL/min Normal MPV 11.7 fL 9.0-13.0 [facility] ([facility] NORMAL [...] HCT IS 5% LESS SOURCE FOR DATA: [employer] 1800 OPERATION MANUAL( AUTOMATED BLOOD COUNTS AND [...] >32 mL/min Normal ID Date Data Source [id number] 12/30/2019 01:32:00 PM EDT MEDENT ([facility]) Name Value Range Interpretation Code Description Data Annette rce(s) Supporting Document(s) White Blood Count 6.7 4.1-10.9 [facility] ([facility]) Red Blood Count 3.50 4.20-6.30 [facility] ([facility]) Platelets 157 140-440 MED[facility] ([facility]) Hemoglobin 11.8 12.0-18.0 [facility] ([facility]) Hematocrit 34.8 37.0-51.0 [facility] ([facility]) ID Date Data Source [id number] 12/30/2019 01:32:00 PM EDT MEDENT ([facility]) Name Value Range Interpretation Code Description Data Annette rce(s) Supporting Document(s) Calcium [Mass/volume] in Serum or Plasma 8.6 [facility] ([facility]) Sodium 139 MED[facility] ([facility]) Carbon dioxide, total [Moles/volume] in Serum or Plasma 23.0 [facility] ([facility]) Chloride [Moles/volume] in Serum or Plasma 105.2 [facility] ([facility]) Glucose 96 70-110 [facility] ([facility]) Potassium [Moles/volume] in Serum or Plasma 4.4 [facility] ([facility]) Blood Urea Nitrogen 31 8-23 MED[facility] (Ca rdiology [facility]) Glomerular filtration rate/1.73 sq M.pre dicted [Volume Rate/Area] in Serum or Plasma by Creatinine-based formula (MDRD) Laboratory test result MEDENT ([facility]) Creatinine 1.4 0.7-1.2 [facility] ([facility]) ID Date Data Source [id number] 12/25/2019 11:20:00 AM EDT MEDENT ([facility] Name Value Range Interpretation Code Description Data Annette rce(s) Supporting Document(s) Occult Blood Laboratory test result MEDENT ([facility] ID Date Data Source [id number] 12/23/2019 08:23:00 AM EDT MEDENT ([facility]) Name Value Range Interpretation Code Description Data Annette rce(s) Supporting Document(s) Prothrombin Time 22.9 s 11.8-14.0 [facility] ([facility]) Inr 1.97 [facility] ([facility] THERAPUTIC HUMAN INR VALUES INDICATIONS NORMAL RANGES PROPHYLAXIS/TREATMENT OF: VENOUS THROMBOSIS 2.0-3.0 PULMONARY EMBOLISM 2.0-3.0 PREVENTION OF SYSTEMIC EMBOLISM FROM: TISSUE HEART VALVES 2.0-3.0 ACUTE MYOCARDIAL INFARCTION 2.0-3.0 VALVULAR HEART DISEASE 2.0-3.0 ATRIAL FIBRILLATION 2.0-3.0 MECHANICAL VALVES(HIGH RISK) 2.5-3.5 RECURRENT MYOCARDIAL INFARCTION 2.5-3.5 ID Date Data Source [id number] 12/23/2019 08:23:00 AM EDT MEDENT ([facility] Name Value Range Interpretation Code Description Data Annette rce(s) Supporting Document(s) Prothrombin Time 22.9 s 11.8-14.0 Above high normal M EDENT ([facility] Inr 1.97 Normal (applies to non-numeric resul ts) [facility]ENT ([facility] THERAPUTIC HUMAN INR VALUES INDICATIONS NORMAL RANGES PROPHYLAXIS/TREATMENT OF: VENOUS THROMBOSIS 2.0-3.0 PULMONARY EMBOLISM 2.0-3.0 PREVENTION OF SYSTEMIC EMBOLISM FROM: TISSUE HEART VALVES 2.0-3.0 ACUTE MYOCARDIAL INFARCTION 2.0-3.0 VALVULAR HEART DISEASE 2.0-3.0 ATRIAL FIBRILLATION 2.0-3.0 MECHANICAL VALVES(HIGH RISK) 2.5-3.5 RECURRENT MYOCARDIAL INFARCTION 2.5-3.5 ID Date Data Source [id number] 12/09/2019 03:30:00 PM EDT MEDENT ([facility]) Name Value Range Interpretation Code Description Data Annette rce(s) Supporting Document(s) P T 24.2 [facility] ([facility]) I N R 2.12 [facility] ([facility]) ID Date Data Source [id number] 12/09/2019 10:15:00 AM EDT MED[facility] ([facility]) Name Value Range Interpretation Code Description Data Annette rce(s) Supporting Document(s) Prothrombin Time 24.2 s 12.5-14.3 [facility] ([facility]) Inr 2.12 MED[facility] ([facility]) THERAPUTIC HUMAN INR VALUES INDICATIONS NORMAL RANGES PROPHYLAXIS/TREATMENT OF: VENOUS THROMBOSIS 2.0-3.0 PULMONARY EMBOLISM 2.0-3.0 PREVENTION OF SYSTEMIC EMBOLISM FROM: TISSUE HEART VALVES 2.0-3.0 ACUTE MYOCARDIAL INFARCTION 2.0-3.0 VALVULAR HEART DISEASE 2.0-3.0 ATRIAL FIBRILLATION 2.0-3.0 MECHANICAL VALVES(HIGH RISK) 2.5-3.5 RECURRENT MYOCARDIAL INFARCTION 2.5-3.5 ID Date Data Source [id number] 11/10/2019 09:30:00 AM EDT MEDENT ([facility]) Name Value Range Interpretation Code Description Data Annette rce(s) Supporting Document(s) Prothrombin Time 27.1 s 11.8-14.0 MED[facility] ([facility]) Inr 2.53 MEDENT ([facility]) THERAPUTIC HUMAN INR VALUES INDICATIONS NORMAL RANGES PROPHYLAXIS/TREATMENT OF: VENOUS THROMBOSIS 2.0-3.0 PULMONARY EMBOLISM 2.0-3.0 PREVENTION OF SYSTEMIC EMBOLISM FROM: TISSUE HEART VALVES 2.0-3.0 ACUTE MYOCARDIAL INFARCTION 2.0-3.0 VALVULAR HEART DISEASE 2.0-3.0 ATRIAL FIBRILLATION 2.0-3.0 MECHANICAL VALVES(HIGH RISK) 2.5-3.5 RECURRENT MYOCARDIAL INFARCTION 2.5-3.5 ID Date Data Source [id number] 11/10/2019 09:30:00 AM EDT MEDENT ([facility] Name Value Range Interpretation Code Description Data Annette rce(s) Supporting Document(s) Prothrombin Time 27.1 s 11.8-14.0 Above high normal M EDENT ([facility] Inr 2.53 Normal (applies to non-numeric resul ts) MEDENT ([facility] THERAPUTIC HUMAN INR VALUES INDICATIONS NORMAL RANGES PROPHYLAXIS/TREATMENT OF: VENOUS THROMBOSIS 2.0-3.0 PULMONARY EMBOLISM 2.0-3.0 PREVENTION OF SYSTEMIC EMBOLISM FROM: TISSUE HEART VALVES 2.0-3.0 ACUTE MYOCARDIAL INFARCTION 2.0-3.0 VALVULAR HEART DISEASE 2.0-3.0 ATRIAL FIBRILLATION 2.0-3.0 MECHANICAL VALVES(HIGH RISK) 2.5-3.5 RECURRENT MYOCARDIAL INFARCTION 2.5-3.5 ID Date Data Source [id number] 11/07/2019 09:43:00 AM EDT MEDRENATA ([facility]) Name Value Range Interpretation Code Description Data Annette rce(s) Supporting Document(s) RBC 3.35 10E6/uL 4.20-6.30 [facility]) NORMAL RANGES Age WBC RBC HGB [...] HCT IS 5% LESS SOURCE FOR DATA: [employer] 1800 OPERATION MANUAL( AUTOMATED BLOOD COUNTS AND [...] 6.4 10E3/uL 4.1-10.9 [facility] ([facility]) NORMAL RANGES Age WBC RBC HGB [...] HCT IS 5% LESS SOURCE FOR DATA: [employer] 1800 OPERATION MANUAL( AUTOMATED BLOOD COUNTS AND [...] HCT IS 5% LESS SOURCE FOR DATA: [employer] 1800 OPERATION MANUAL( AUTOMATED BLOOD COUNTS AND [...] 2-19 YEARS EXCLUSIVE. HCT 33.2 % 37.0-51.0 [facility]) NORMAL RANGES Age WBC RBC HGB [...] HCT IS 5% LESS SOURCE FOR DATA: [employer] DYN 1800 OPERATION MANUAL( AUTOMATED BLOOD COUNTS [...] fL 80.0-97.0 [facility] ([facility]) NORMAL RANGES Age WBC RBC HGB [...] HCT IS 5% LESS SOURCE FOR DATA: [employer] 1800 OPERATION MANUAL( AUTOMATED BLOOD COUNTS AND [...] g/dL 31.0-36.0 [facility] ([facility]) NORMAL RANGES Age WBC RBC HGB [...] HCT IS 5% LESS SOURCE FOR DATA: [employer] 1800 OPERATION MANUAL( AUTOMATED BLOOD COUNTS AND [...] pg 26.0-32.0 [facility] ([facility]) NORMAL RANGES Age WBC RBC HGB [...] HCT IS 5% LESS SOURCE FOR DATA: [employer] DYN 1800 OPERATION MANUAL( AUTOMATED BLOOD COUNTS [...] 173 10E3/uL 140-440 MEDRENATA ([facility]) NORMAL RANGES Age WBC RBC HGB [...] HCT IS 5% LESS SOURCE FOR DATA: [employer] 1800 OPERATION MANUAL( AUTOMATED BLOOD COUNTS AND [...] % 10.0-58.5 [facility] ([facility]) NORMAL RANGES Age WBC RBC HGB [...] HCT IS 5% LESS SOURCE FOR DATA: [employer] 1800 OPERATION MANUAL( AUTOMATED BLOOD COUNTS AND [...] 16.0 % 11.5-14.5 MEDENT ([facility]) NORMAL RANGES Age WBC RBC HGB HCT [...] HCT IS 5% LESS SOURCE FOR DATA: [employer] 1800 OPERATION MANUAL( AUTOMATED BLOOD COUNTS AND [...] 0.6 10E3/uL 0.6-4.1 [facility] ([facility]) NORMAL RANGES Age WBC RBC HGB [...] HCT IS 5% LESS SOURCE FOR DATA: [employer] 1800 OPERATION MANUAL( AUTOMATED BLOOD COUNTS AND [...] % 37.0-92.0 [facility] ([facility]) NORMAL RANGES Age WBC RBC HGB [...] HCT IS 5% LESS SOURCE FOR DATA: [employer] 1800 OPERATION MANUAL( AUTOMATED BLOOD COUNTS AND [...] % 0.1-24.0 [facility] ([facility]) NORMAL RANGES Age WBC RBC HGB [...] HCT IS 5% LESS SOURCE FOR DATA: [employer] 1800 OPERATION MANUAL( AUTOMATED BLOOD COUNTS AND [...] 4.7 % 2.0-7.8 [facility] ([facility]) NORMAL RANGES Age WBC RBC HGB [...] HCT IS 5% LESS SOURCE FOR DATA: [employer] 1800 OPERATION MANUAL( AUTOMATED BLOOD COUNTS AND [...] MXD# 1.1 10E3/uL 0.0-1.8 [facility] ([facility]) NORMAL RANGES Age WBC RBC HGB HCT [...] HCT IS 5% LESS SOURCE FOR DATA: [employer] 1800 OPERATION MANUAL( AUTOMATED BLOOD COUNTS AND [...] Blood by Kathy 10.5 f L 9.0-13.0 [facility] NORMAL RANGES Age WBC RBC HGB [...] HCT IS 5% LESS SOURCE FOR DATA: [employer] 1800 OPERATION MANUAL( AUTOMATED BLOOD COUNTS AND [...] mg/dL 70-110 [facility] ([facility]) NORMAL RANGES Age WBC RBC HGB [...] HCT IS 5% LESS SOURCE FOR DATA: [employer] 1800 OPERATION MANUAL( AUTOMATED BLOOD COUNTS AND [...] 2-19 YEARS EXCLUSIVE. BUN 28 mg/dL 8-23 [facility] ([facility]) NORMAL RANGES Age WBC RBC HGB [...] HCT IS 5% LESS SOURCE FOR DATA: [employer] 1800 OPERATION MANUAL( AUTOMATED BLOOD COUNTS AND [...] 139 mmol/L 136-145 [facility] ([facility]) NORMAL RANGES Age WBC RBC HGB [...] HCT IS 5% LESS SOURCE FOR DATA: [employer] 1800 OPERATION MANUAL( AUTOMATED BLOOD COUNTS AND [...] mg/dL 0.7-1.2 [facility] ([facility]) NORMAL RANGES Age WBC RBC HGB [...] HCT IS 5% LESS SOURCE FOR DATA: [employer] 1800 OPERATION MANUAL( AUTOMATED BLOOD COUNTS AND [...] Plasma 22.4 CALC MED[facility] ([facility]) NORMAL RANGES Age WBC RBC HGB [...] 3.8 mmol/L 3.5-5.1 [facility] ([facility]) NORMAL RANGES Age WBC RBC HGB [...] HCT IS 5% LESS SOURCE FOR DATA: [employer] 1800 OPERATION MANUAL( AUTOMATED BLOOD COUNTS AND [...] mmol/L 98.0-107.0 [facility] ([facility]) NORMAL RANGES Age WBC RBC HGB [...] HCT IS 5% LESS SOURCE FOR DATA: [employer] 1800 OPERATION MANUAL( AUTOMATED BLOOD COUNTS AND [...] 6.8 g/dL 6.6-8.7 [facility] ([facility]) NORMAL RANGES Age WBC RBC HGB HCT [...] HCT IS 5% LESS SOURCE FOR DATA: [employer] 1800 OPERATION MANUAL( AUTOMATED BLOOD COUNTS AND [...] 26.8 mmol/L 22.0-29.0 [facility] ([facility]) NORMAL RANGES Age WBC RBC HGB [...] HCT IS 5% LESS SOURCE FOR DATA: [employer] 1800 OPERATION MANUAL( AUTOMATED BLOOD COUNTS AND [...] mg/dL 8.6-10.2 [facility] ([facility]) NORMAL RANGES Age WBC RBC HGB [...] HCT IS 5% LESS SOURCE FOR DATA: [employer] 1800 OPERATION MANUAL( AUTOMATED BLOOD COUNTS AND [...] 2-19 YEARS EXCLUSIVE. Alb 3.9 g/dL 3.5-5.2 [facility]) NORMAL RANGES Age WBC RBC HGB [...] HCT IS 5% LESS SOURCE FOR DATA: [employer] DYN 1800 OPERATION MANUAL( AUTOMATED BLOOD COUNTS [...] HCT IS 5% LESS SOURCE FOR DATA: [employer] 1800 OPERATION MANUAL( AUTOMATED BLOOD COUNTS AND [...] U/L 40-129 [facility] ([facility]) NORMAL RANGES Age WBC RBC HGB [...] HCT IS 5% LESS SOURCE FOR DATA: [employer] 1800 OPERATION MANUAL( AUTOMATED BLOOD COUNTS AND [...] Plasma 11 U/L 0-41 [facility] ([facility]) NORMAL RANGES Age WBC RBC HGB HCT [...] HCT IS 5% LESS SOURCE FOR DATA: [employer] 1800 OPERATION MANUAL( AUTOMATED BLOOD COUNTS AND [...] calculation 2.9 CALC [facility] ([facility]) NORMAL RANGES Age WBC RBC HGB [...] HCT IS 5% LESS SOURCE FOR DATA: [employer] 1800 OPERATION MANUAL( AUTOMATED BLOOD COUNTS AND [...] Osmolality-Calculated 284.0 CALC [facility] ([facility]) NORMAL RANGES Age WBC RBC HGB [...] HCT IS 5% LESS SOURCE FOR DATA: [employer] DYN 1800 OPERATION MANUAL( AUTOMATED BLOOD COUNTS [...] Serum or Plasma 16 U/L 0-40 [facility] ([employer] [facility]) NORMAL RANGES Age WBC RBC HGB [...] HCT IS 5% LESS SOURCE FOR DATA: [employer] 1800 OPERATION MANUAL( AUTOMATED BLOOD COUNTS AND [...] 0.55 mg/dL 0.0-1.2 [facility] ([facility]) NORMAL RANGES Age WBC RBC HGB [...] HCT IS 5% LESS SOURCE FOR DATA: [employer] 1800 OPERATION MANUAL( AUTOMATED BLOOD COUNTS AND [...] or Plasma 13 mmol/L [facility] ([facility]) NORMAL RANGES Age WBC RBC HGB HCT [...] HCT IS 5% LESS SOURCE FOR DATA: [employer] 1800 OPERATION MANUAL( AUTOMATED BLOOD COUNTS AND [...] 60 # [facility] ( [facility]) NORMAL RANGES Age WBC RBC HGB [...] HCT IS 5% LESS SOURCE FOR DATA: [employer] 1800 OPERATION MANUAL( AUTOMATED BLOOD COUNTS AND [...] INDIVIDUALA AGED 2-19 YEARS EXCLUSIVE. eGFR Non-Afr. Senegalese 52 # [facility] ([facility]) NORMAL RANGES Age WBC RBC HGB [...] HCT IS 5% LESS SOURCE FOR DATA: [employer] 1800 OPERATION MANUAL( AUTOMATED BLOOD COUNTS AND [...] 2-19 YEARS EXCLUSIVE. Chol 156 mg/dL 0-200 [facility]) NORMAL RANGES Age WBC RBC HGB [...] HCT IS 5% LESS SOURCE FOR DATA: [employer] 1800 OPERATION MANUAL( AUTOMATED BLOOD COUNTS AND [...] Calc 75-129 [facility] ([facility]) NORMAL RANGES Age WBC RBC HGB [...] HCT IS 5% LESS SOURCE FOR DATA: [employer] DYN 1800 OPERATION MANUAL( AUTOMATED BLOOD COUNTS [...] mg/dL 35-200 [facility] ([facility]) NORMAL RANGES Age WBC RBC HGB [...] HCT IS 5% LESS SOURCE FOR DATA: [employer] 1800 OPERATION MANUAL( AUTOMATED BLOOD COUNTS AND [...] Plasma 35 mg/dL 35-55 [facility] ([facility]) NORMAL RANGES Age WBC RBC HGB HCT [...] HCT IS 5% LESS SOURCE FOR DATA: [employer] 1800 OPERATION MANUAL( AUTOMATED BLOOD COUNTS AND [...] 4.4 Calc [facility] ([facility]) NORMAL RANGES Age WBC RBC HGB [...] HCT IS 5% LESS SOURCE FOR DATA: [employer] DYN 1800 OPERATION MANUAL( AUTOMATED BLOOD COUNTS [...] 2-19 YEARS EXCLUSIVE. ID Date Data Source [id number] 11/07/2019 09:43:00 AM EDT MED[facility] (Famil y [...] HCT IS 5% LESS SOURCE FOR DATA: [employer] 1800 OPERATION MANUAL( AUTOMATED BLOOD COUNTS AND [...] 2-19 YEARS EXCLUSIVE. Trig 118 mg/dL 35-200 [facility] NORMAL [...] HCT IS 5% LESS SOURCE FOR DATA: [employer] 1800 OPERATION MANUAL( AUTOMATED BLOOD COUNTS AND [...] HCT IS 5% LESS SOURCE FOR DATA: [employer] 1800 OPERATION MANUAL( AUTOMATED BLOOD COUNTS AND [...] 2-19 YEARS EXCLUSIVE. Cho/HDL Ratio 4.4 Calc [employer] ([facility] NORMAL RANGES Age WBC [...] HCT IS 5% LESS SOURCE FOR DATA: [employer] DYN 1800 OPERATION MANUAL( AUTOMATED BLOOD COUNTS [...] 2-19 YEARS EXCLUSIVE. ID Date Data Source [id number] 11/07/2019 09:43:00 AM EDT [facility] (Famil y [...] HCT IS 5% LESS SOURCE FOR DATA: [employer] 1800 OPERATION MANUAL( AUTOMATED BLOOD COUNTS AND [...] HCT IS 5% LESS SOURCE FOR DATA: [employer] 1800 OPERATION MANUAL( AUTOMATED BLOOD COUNTS AND [...] HCT IS 5% LESS SOURCE FOR DATA: [employer] 1800 OPERATION MANUAL( AUTOMATED BLOOD COUNTS AND [...] HCT IS 5% LESS SOURCE FOR DATA: [employer] 1800 OPERATION MANUAL( AUTOMATED BLOOD COUNTS AND [...] 2-19 YEARS EXCLUSIVE. BUN/Creatinine Ratio 22.4 CALC [facility] ([facility] NORMAL RANGES Age WBC RBC [...] HCT IS 5% LESS SOURCE FOR DATA: [employer] 1800 OPERATION MANUAL( AUTOMATED BLOOD COUNTS AND [...] 2-19 YEARS EXCLUSIVE. K 3.8 mmol/L 3.5-5.1 [facility] ([facility] NORMAL [...] HCT IS 5% LESS SOURCE FOR DATA: [employer] 1800 OPERATION MANUAL( AUTOMATED BLOOD COUNTS AND [...] HCT IS 5% LESS SOURCE FOR DATA: [employer] 1800 OPERATION MANUAL( AUTOMATED BLOOD COUNTS AND [...] 2-19 YEARS EXCLUSIVE. Co2 26.8 mmol/L 22.0-29.0 [facility] ([facility] NORMAL RANGES Age WBC RBC HGB [...] HCT IS 5% LESS SOURCE FOR DATA: [employer] 1800 OPERATION MANUAL( AUTOMATED BLOOD COUNTS AND [...] 2-19 YEARS EXCLUSIVE. TP 6.8 g/dL 6.6-8.7 [facility] ([facility] NORMAL [...] HCT IS 5% LESS SOURCE FOR DATA: [employer] 1800 OPERATION MANUAL( AUTOMATED BLOOD COUNTS AND [...] HCT IS 5% LESS SOURCE FOR DATA: [employer] 1800 OPERATION MANUAL( AUTOMATED BLOOD COUNTS AND [...] 2-19 YEARS EXCLUSIVE. Alb 3.9 g/dL 3.5-5.2 [facility] ([facility] NORMAL [...] HCT IS 5% LESS SOURCE FOR DATA: [employer] DYN 1800 OPERATION MANUAL( AUTOMATED BLOOD COUNTS [...] HCT IS 5% LESS SOURCE FOR DATA: [employer] 1800 OPERATION MANUAL( AUTOMATED BLOOD COUNTS AND [...] HCT IS 5% LESS SOURCE FOR DATA: [employer] 1800 OPERATION MANUAL( AUTOMATED BLOOD COUNTS AND [...] HCT IS 5% LESS SOURCE FOR DATA: [employer] DYN 1800 OPERATION MANUAL( AUTOMATED BLOOD COUNTS [...] YEARS EXCLUSIVE. Alt (SGPT) 11 U/L 0-41 [facility] ([facility] NORMAL RANGES Age [...] HCT IS 5% LESS SOURCE FOR DATA: [employer] 1800 OPERATION MANUAL( AUTOMATED BLOOD COUNTS AND [...] 2-19 YEARS EXCLUSIVE. Tbili 0.55 mg/dL 0.0-1.2 [facility] ([facility] NORMAL [...] HCT IS 5% LESS SOURCE FOR DATA: [employer] 1800 OPERATION MANUAL( AUTOMATED BLOOD COUNTS AND [...] YEARS EXCLUSIVE. Ast (Sgot) 16 U/L 0-40 [facility] ([facility] NORMAL RANGES Age [...] HCT IS 5% LESS SOURCE FOR DATA: [employer] DYN 1800 OPERATION MANUAL( AUTOMATED BLOOD COUNTS [...] HCT IS 5% LESS SOURCE FOR DATA: [employer] 1800 OPERATION MANUAL( AUTOMATED BLOOD COUNTS AND [...] HCT IS 5% LESS SOURCE FOR DATA: [employer] 1800 OPERATION MANUAL( AUTOMATED BLOOD COUNTS AND [...] HCT IS 5% LESS SOURCE FOR DATA: [employer] DYN 1800 OPERATION MANUAL( AUTOMATED BLOOD COUNTS [...] INDIVIDUALA AGED 2-19 YEARS EXCLUSIVE. eGFR Non-Afr. Senegalese 52 # [facility] ([facility] [...] HCT IS 5% LESS SOURCE FOR DATA: [employer] 1800 OPERATION MANUAL( AUTOMATED BLOOD COUNTS AND [...] 2-19 YEARS EXCLUSIVE. ID Date Data Source [id number] 11/07/2019 09:43:00 AM EDT [facility] ([facility] Name Value Range Interpretation Code Description Data Annette rce(s) Supporting Document(s) WBC 6.4 10E3/uL 4.1-10.9 [facility] ([facility] NORMAL RANGES Age [...] HCT IS 5% LESS SOURCE FOR DATA: [employer] 1800 OPERATION MANUAL( AUTOMATED BLOOD COUNTS AND [...] RBC 3.35 10E6/uL 4.20-6.30 Below low normal [facility] ([facility] NORMAL RANGES [...] HCT IS 5% LESS SOURCE FOR DATA: [employer] 1800 OPERATION MANUAL( AUTOMATED BLOOD COUNTS AND [...] HCT IS 5% LESS SOURCE FOR DATA: [employer] 1800 OPERATION MANUAL( AUTOMATED BLOOD COUNTS AND [...] HCT 33.2 % 37.0-51.0 Below low normal [facility] ( [facility] NORMAL RANGES Age WBC [...] HCT IS 5% LESS SOURCE FOR DATA: [employer] 1800 OPERATION MANUAL( AUTOMATED BLOOD COUNTS AND [...] MCV 99.1 fL 80.0-97.0 Above high normal [facility] ([facility] NORMAL RANGES [...] HCT IS 5% LESS SOURCE FOR DATA: [employer] 1800 OPERATION MANUAL( AUTOMATED BLOOD COUNTS AND [...] HCT IS 5% LESS SOURCE FOR DATA: [employer] 1800 OPERATION MANUAL( AUTOMATED BLOOD COUNTS AND [...] 2-19 YEARS EXCLUSIVE. MCHC 33.7 g/dL 31.0-36.0 [facility] ([facility] NORMAL [...] RDW-CV 16.0 % 11.5-14.5 Above high normal [facility] ([facility] NORMAL RANGES [...] HCT IS 5% LESS SOURCE FOR DATA: [employer] 1800 OPERATION MANUAL( AUTOMATED BLOOD COUNTS AND [...] 2-19 YEARS EXCLUSIVE. PLT 173 10E3/uL 140-440 [facility] ([facility] NORMAL RANGES Age WBC [...] HCT IS 5% LESS SOURCE FOR DATA: [employer] 1800 OPERATION MANUAL( AUTOMATED BLOOD COUNTS AND [...] 2-19 YEARS EXCLUSIVE. MXD% 17.8 % 0.1-24.0 [facility] ([facility] NORMAL [...] HCT IS 5% LESS SOURCE FOR DATA: [employer] 1800 OPERATION MANUAL( AUTOMATED BLOOD COUNTS AND [...] HCT IS 5% LESS SOURCE FOR DATA: [employer] 1800 OPERATION MANUAL( AUTOMATED BLOOD COUNTS AND [...] Lym% 9.1 % 10.0-58.5 Below low normal [facility] ( [facility] NORMAL RANGES Age WBC [...] HCT IS 5% LESS SOURCE FOR DATA: [employer] 1800 OPERATION MANUAL( AUTOMATED BLOOD COUNTS AND [...] 2-19 YEARS EXCLUSIVE. Lym# 0.6 10E3/uL 0.6-4.1 [employer] ([facility] [facility] NORMAL RANGES Age WBC RBC HGB [...] HCT IS 5% LESS SOURCE FOR DATA: [employer] 1800 OPERATION MANUAL( AUTOMATED BLOOD COUNTS AND [...] 2-19 YEARS EXCLUSIVE. Neut# 4.7 % 2.0-7.8 [facility] ([facility] NORMAL [...] HCT IS 5% LESS SOURCE FOR DATA: [employer] 1800 OPERATION MANUAL( AUTOMATED BLOOD COUNTS AND [...] MXD# 1.1 10E3/uL 0.0-1.8 [facility] ([facility] NORMAL RANGES Age WBC [...] HCT IS 5% LESS SOURCE FOR DATA: [employer] 1800 OPERATION MANUAL( AUTOMATED BLOOD COUNTS AND [...] 2-19 YEARS EXCLUSIVE. MPV 10.5 fL 9.0-13.0 [facility] ([facility] NORMAL [...] HCT IS 5% LESS SOURCE FOR DATA: [employer] DYN 1800 OPERATION MANUAL( AUTOMATED BLOOD COUNTS [...] 2-19 YEARS EXCLUSIVE. ID Date Data Source [id number] 10/27/2019 09:17:00 AM EDT [facility] ([facility]) Name Value Range Interpretation Code Description Data Annette rce(s) Supporting Document(s) Prothrombin Time 30.3 s 11.8-14.0 [facility] ([facility]) Inr 2.91 [facility] ([facility]iology [facility]) THERAPUTIC HUMAN INR VALUES INDICATIONS NORMAL RANGES PROPHYLAXIS/TREATMENT OF: VENOUS THROMBOSIS 2.0-3.0 PULMONARY EMBOLISM 2.0-3.0 PREVENTION OF SYSTEMIC EMBOLISM FROM: TISSUE HEART VALVES 2.0-3.0 ACUTE MYOCARDIAL INFARCTION 2.0-3.0 VALVULAR HEART DISEASE 2.0-3.0 ATRIAL FIBRILLATION 2.0-3.0 MECHANICAL VALVES(HIGH RISK) 2.5-3.5 RECURRENT MYOCARDIAL INFARCTION 2.5-3.5 ID Date Data Source [id number] 10/27/2019 09:17:00 AM EDT [facility] ([facility] Name Value Range Interpretation Code Description Data Annette rce(s) Supporting Document(s) Prothrombin Time 30.3 s 11.8-14.0 Above high normal M [facility] ([facility] Inr 2.91 Normal (applies to non-numeric resul ts) [facility] ([facility] THERAPUTIC HUMAN INR VALUES INDICATIONS NORMAL RANGES PROPHYLAXIS/TREATMENT OF: VENOUS THROMBOSIS 2.0-3.0 PULMONARY EMBOLISM 2.0-3.0 PREVENTION OF SYSTEMIC EMBOLISM FROM: TISSUE HEART VALVES 2.0-3.0 ACUTE MYOCARDIAL INFARCTION 2.0-3.0 VALVULAR HEART DISEASE 2.0-3.0 ATRIAL FIBRILLATION 2.0-3.0 MECHANICAL VALVES(HIGH RISK) 2.5-3.5 RECURRENT MYOCARDIAL INFARCTION 2.5-3.5 ID Date Data Source [id number] 10/20/2019 08:58:00 AM EDT [facility] ([facility]) Name Value Range Interpretation Code Description Data Annette rce(s) Supporting Document(s) Prothrombin Time 24.8 s 11.8-14.0 [facility] ([facility]) Inr 2.26 [facility] THERAPUTIC HUMAN INR VALUES INDICATIONS NORMAL RANGES PROPHYLAXIS/TREATMENT OF: VENOUS THROMBOSIS 2.0-3.0 PULMONARY EMBOLISM 2.0-3.0 PREVENTION OF SYSTEMIC EMBOLISM FROM: TISSUE HEART VALVES 2.0-3.0 ACUTE MYOCARDIAL INFARCTION 2.0-3.0 VALVULAR HEART DISEASE 2.0-3.0 ATRIAL FIBRILLATION 2.0-3.0 MECHANICAL VALVES(HIGH RISK) 2.5-3.5 RECURRENT MYOCARDIAL INFARCTION 2.5-3.5 ID Date Data Source [id number] 10/20/2019 08:58:00 AM EDT [facility] ([facility] Name Value Range Interpretation Code Description Data Annette rce(s) Supporting Document(s) Inr 2.26 Normal (applies to non-numeric resul ts) [facility] ([facility] THERAPUTIC HUMAN INR VALUES INDICATIONS NORMAL RANGES PROPHYLAXIS/TREATMENT OF: VENOUS THROMBOSIS 2.0-3.0 PULMONARY EMBOLISM 2.0-3.0 PREVENTION OF SYSTEMIC EMBOLISM FROM: TISSUE HEART VALVES 2.0-3.0 ACUTE MYOCARDIAL INFARCTION 2.0-3.0 VALVULAR HEART DISEASE 2.0-3.0 ATRIAL FIBRILLATION 2.0-3.0 MECHANICAL VALVES(HIGH RISK) 2.5-3.5 RECURRENT MYOCARDIAL INFARCTION 2.5-3.5 Prothrombin Time 24.8 s 11.8-14.0 Above high normal M [facility] ([facility] ID Date Data Source [id number] 10/14/2019 09:55:00 AM EDT [facility] ([facility] Name Value Range Interpretation Code Description Data Annette rce(s) Supporting Document(s) Prothrombin Time 48.7 s 11.8-14.0 Above high normal M [facility] ([facility] Inr 5.26 Above upper panic limits [facility] ([facility] THERAPUTIC HUMAN INR VALUES INDICATIONS NORMAL RANGES PROPHYLAXIS/TREATMENT OF: VENOUS THROMBOSIS 2.0-3.0 PULMONARY EMBOLISM 2.0-3.0 PREVENTION OF SYSTEMIC EMBOLISM FROM: TISSUE HEART VALVES 2.0-3.0 ACUTE MYOCARDIAL INFARCTION 2.0-3.0 VALVULAR HEART DISEASE 2.0-3.0 ATRIAL FIBRILLATION 2.0-3.0 MECHANICAL VALVES(HIGH RISK) 2.5-3.5 RECURRENT MYOCARDIAL INFARCTION 2.5-3.5 ID Date Data Source [id number] 10/14/2019 09:55:00 AM EDT [facility] Name Value Range Interpretation Code Description Data Annette rce(s) Supporting Document(s) Prothrombin Time 48.7 s 11.8-14.0 [facility] (Cardi ology [facility]) Inr 5.26 Above upper panic limits [facility] ([facility]) THERAPUTIC HUMAN INR VALUES INDICATIONS NORMAL RANGES PROPHYLAXIS/TREATMENT OF: VENOUS THROMBOSIS 2.0-3.0 PULMONARY EMBOLISM 2.0-3.0 PREVENTION OF SYSTEMIC EMBOLISM FROM: TISSUE HEART VALVES 2.0-3.0 ACUTE MYOCARDIAL INFARCTION 2.0-3.0 VALVULAR HEART DISEASE 2.0-3.0 ATRIAL FIBRILLATION 2.0-3.0 MECHANICAL VALVES(HIGH RISK) 2.5-3.5 RECURRENT MYOCARDIAL INFARCTION 2.5-3.5 ID Date Data Source [id number] 09/29/2019 10:58:00 AM EDT [facility] ([facility] Name Value Range Interpretation Code Description Data Annette rce(s) Supporting Document(s) Prothrombin Time 41.0 s 11.8-14.0 Above high normal M [facility] ([facility] Inr 4.24 Normal (applies to non-numeric resul ts) [facility] ([facility] THERAPUTIC HUMAN INR VALUES INDICATIONS NORMAL RANGES PROPHYLAXIS/TREATMENT OF: VENOUS THROMBOSIS 2.0-3.0 PULMONARY EMBOLISM 2.0-3.0 PREVENTION OF SYSTEMIC EMBOLISM FROM: TISSUE HEART VALVES 2.0-3.0 ACUTE MYOCARDIAL INFARCTION 2.0-3.0 VALVULAR HEART DISEASE 2.0-3.0 ATRIAL FIBRILLATION 2.0-3.0 MECHANICAL VALVES(HIGH RISK) 2.5-3.5 RECURRENT MYOCARDIAL INFARCTION 2.5-3.5 ID Date Data Source [id number] 09/29/2019 10:58:00 AM EDT [facility] Name Value Range Interpretation Code Description Data Annette rce(s) Supporting Document(s) Prothrombin Time 41.0 s 11.8-14.0 [facility] (Cardi ology [facility]) Inr 4.24 [facility] THERAPUTIC HUMAN INR VALUES INDICATIONS NORMAL RANGES PROPHYLAXIS/TREATMENT OF: VENOUS THROMBOSIS 2.0-3.0 PULMONARY EMBOLISM 2.0-3.0 PREVENTION OF SYSTEMIC EMBOLISM FROM: TISSUE HEART VALVES 2.0-3.0 ACUTE MYOCARDIAL INFARCTION 2.0-3.0 VALVULAR HEART DISEASE 2.0-3.0 ATRIAL FIBRILLATION 2.0-3.0 MECHANICAL VALVES(HIGH RISK) 2.5-3.5 RECURRENT MYOCARDIAL INFARCTION 2.5-3.5 ID Date Data Source [id number] 09/04/2019 03:40:00 PM EDT [facility] ([facility]) Name Value Range Interpretation Code Description Data Annette rce(s) Supporting Document(s) Magnesium Level 2.17 [facility] ([facility]) ID Date Data Source [id number] 09/04/2019 03:40:00 PM EDT [facility] ([facility]) Name Value Range Interpretation Code Description Data Annette rce(s) Supporting Document(s) White Blood Count 8.1 4.3-10.9 [facility] ([facility]) Hemoglobin 12.8 13.0-17.0 [facility] ([facility]) Platelets 256 130-400 [facility] ([facility]) Red Blood Count 3.93 4.70-6.20 [facility] ([facility]) Hematocrit 38.3 39.0-50.0 [facility] ([facility]) ID Date Data Source [id number] 09/04/2019 03:40:00 PM EDT [facility] ([facility]) Name Value Range Interpretation Code Description Data Annette rce(s) Supporting Document(s) Blood Urea Nitrogen 26.1 5-21 [facility] (Ca [facility]diology [facility]) Glucose 108 70-100 [facility] (Cardiology A [...] 32.8 20-32 [facility] ([facility]) Phosphorus 2.83 [facility] ([facility]) Calcium 8.15 8.4-10.4 [facility] ([facility] [place] Albumin 3.9 3.5-4.7 [facility] ([facility] [place] ID Date Data Source [id number] 09/03/2019 09:35:00 AM EDT [facility] ([facility] Name Value Range Interpretation Code Description Data Annette rce(s) Supporting Document(s) Prothrombin Time 29.0 s 11.8-14.0 Above high normal M [facility] ([facility] Inr 2.75 Normal (applies to non-numeric resul ts) [facility] ([facility] THERAPUTIC HUMAN INR VALUES INDICATIONS NORMAL RANGES PROPHYLAXIS/TREATMENT OF: VENOUS THROMBOSIS 2.0-3.0 PULMONARY EMBOLISM 2.0-3.0 PREVENTION OF SYSTEMIC EMBOLISM FROM: TISSUE HEART VALVES 2.0-3.0 ACUTE MYOCARDIAL INFARCTION 2.0-3.0 VALVULAR HEART DISEASE 2.0-3.0 ATRIAL FIBRILLATION 2.0-3.0 MECHANICAL VALVES(HIGH RISK) 2.5-3.5 RECURRENT MYOCARDIAL INFARCTION 2.5-3.5 ID Date Data Source [id number] 09/03/2019 09:35:00 AM EDT [facility] ([facility]) Name Value Range Interpretation Code Description Data Annette rce(s) Supporting Document(s) Prothrombin Time 29.0 s 11.8-14.0 [facility] ([facility]) Inr 2.75 [facility] ([facility]) THERAPUTIC HUMAN INR VALUES INDICATIONS NORMAL RANGES PROPHYLAXIS/TREATMENT OF: VENOUS THROMBOSIS 2.0-3.0 PULMONARY EMBOLISM 2.0-3.0 PREVENTION OF SYSTEMIC EMBOLISM FROM: TISSUE HEART VALVES 2.0-3.0 ACUTE MYOCARDIAL INFARCTION 2.0-3.0 VALVULAR HEART DISEASE 2.0-3.0 ATRIAL FIBRILLATION 2.0-3.0 MECHANICAL VALVES(HIGH RISK) 2.5-3.5 RECURRENT MYOCARDIAL INFARCTION 2.5-3.5 ID Date Data Source [id number] 08/21/2019 09:15:00 AM EDT [facility] ([facility] Name Value Range Interpretation Code Description Data Annette rce(s) Supporting Document(s) Inr 2.26 Normal (applies to non-numeric resul ts) [facility] ([facility] THERAPUTIC HUMAN INR VALUES INDICATIONS NORMAL RANGES PROPHYLAXIS/TREATMENT OF: VENOUS THROMBOSIS 2.0-3.0 PULMONARY EMBOLISM 2.0-3.0 PREVENTION OF SYSTEMIC EMBOLISM FROM: TISSUE HEART VALVES 2.0-3.0 ACUTE MYOCARDIAL INFARCTION 2.0-3.0 VALVULAR HEART DISEASE 2.0-3.0 ATRIAL FIBRILLATION 2.0-3.0 MECHANICAL VALVES(HIGH RISK) 2.5-3.5 RECURRENT MYOCARDIAL INFARCTION 2.5-3.5 Prothrombin Time 24.7 s 11.8-14.0 Above high normal M [facility] ([facility] ID Date Data Source [id number] 08/21/2019 09:15:00 AM EDT [facility] ([facility]) Name Value Range Interpretation Code Description Data Annette rce(s) Supporting Document(s) Prothrombin Time 24.7 s 11.8-14.0 [facility] ([facility]) Inr 2.26 [facility] ([facility]) THERAPUTIC HUMAN INR VALUES INDICATIONS NORMAL RANGES PROPHYLAXIS/TREATMENT OF: VENOUS THROMBOSIS 2.0-3.0 PULMONARY EMBOLISM 2.0-3.0 PREVENTION OF SYSTEMIC EMBOLISM FROM: TISSUE HEART VALVES 2.0-3.0 ACUTE MYOCARDIAL INFARCTION 2.0-3.0 VALVULAR HEART DISEASE 2.0-3.0 ATRIAL FIBRILLATION 2.0-3.0 MECHANICAL VALVES(HIGH RISK) 2.5-3.5 RECURRENT MYOCARDIAL INFARCTION 2.5-3.5 ID Date Data Source [id number] 08/06/2019 02:57:00 PM EDT [facility] ([facility] Name Value Range Interpretation Code Description Data Annette rce(s) Supporting Document(s) WBC 7.7 10E3/uL 4.1-10.9 [facility] ([facility] CLASSIFICATION CHOLESTEROL FO R ADULTS [...] RBC 3.88 10E6/uL 4.20-6.30 Below low normal [facility] ([facility] CLASSIFICATION CHOLESTEROL [...] HCT IS 5% LESS SOURCE FOR DATA: [employer] 1800 OPERATION MANUAL( AUTOMATED BLOOD COUNTS AND [...] APPENDIX B-3 HGB 12.5 g/dL 12.0-18.0 [facility] CLASSIFICATION CHOLESTEROL FO [...] HCT IS 5% LESS SOURCE FOR DATA: [employer] 1800 OPERATION MANUAL( AUTOMATED BLOOD COUNTS AND [...] HCT IS 5% LESS SOURCE FOR DATA: [employer] DYN 1800 OPERATION MANUAL( AUTOMATED BLOOD COUNTS [...] DIFF.) APPENDIX B-3 PLT 165 10E3/uL 140-440 [facility] CLASSIFICATION CHOLESTEROL FO R ADULTS [...] HCT IS 5% LESS SOURCE FOR DATA: [employer] 1800 OPERATION MANUAL( AUTOMATED BLOOD COUNTS AND DIFF.) APPENDIX B-3 RDW-CV 13.9 % 11.5-14.5 [facility] CLASSIFICATION CHOLESTEROL FO [...] HCT IS 5% LESS SOURCE FOR DATA: [employer] 1800 OPERATION MANUAL( AUTOMATED BLOOD COUNTS AND [...] HCT IS 5% LESS SOURCE FOR DATA: [employer] 1800 OPERATION MANUAL( AUTOMATED BLOOD COUNTS AND DIFF.) APPENDIX B-3 Lym% 10.4 % 10.0-58.5 [facility] CLASSIFICATION CHOLESTEROL FO R ADULTS [...] HCT IS 5% LESS SOURCE FOR DATA: [employer] 1800 OPERATION MANUAL( AUTOMATED BLOOD COUNTS AND DIFF.) APPENDIX B-3 Neut% 76.3 % 37.0-92.0 [facility] CLASSIFICATION CHOLESTEROL FO [...] DIFF.) APPENDIX B-3 Lym# 0.8 10E3/uL 0.6-4.1 [facility] ([facility] CLASSIFICATION CHOLESTEROL FO R ADULTS [...] HCT IS 5% LESS SOURCE FOR DATA: [employer] DYN 1800 OPERATION MANUAL( AUTOMATED BLOOD COUNTS AND DIFF.) APPENDIX B-3 Neut# 5.9 % 2.0-7.8 [facility] CLASSIFICATION CHOLESTEROL FO [...] HCT IS 5% LESS SOURCE FOR DATA: [employer] 1800 OPERATION MANUAL( AUTOMATED BLOOD COUNTS AND DIFF.) APPENDIX B-3 MXD# 1.0 10E3/uL 0.0-1.8 [facility] CLASSIFICATION CHOLESTEROL FO R ADULTS [...] DIFF.) APPENDIX B-3 MPV 11.5 fL 9.0-13.0 [facility] CLASSIFICATION CHOLESTEROL FO [...] HCT IS 5% LESS SOURCE FOR DATA: [employer] 1800 OPERATION MANUAL( AUTOMATED BLOOD COUNTS AND DIFF.) APPENDIX B-3 ID Date Data Source [id number] 08/06/2019 02:57:00 PM EDT [facility] ([facility] Name Value Range [...] HCT IS 5% LESS SOURCE FOR DATA: [employer] DYN 1800 OPERATION MANUAL( AUTOMATED BLOOD COUNTS AND DIFF.) APPENDIX B-3 Cho/HDL Ratio 4.8 CALC [facility] ([facility] CLASSIFICATION CHOLESTEROL FO R [...] HCT IS 5% LESS SOURCE FOR DATA: [employer] DYN 1800 OPERATION MANUAL( AUTOMATED BLOOD COUNTS AND DIFF.) APPENDIX B-3 LDL_C 106 Calc 75-129 [facility] CLASSIFICATION CHOLESTEROL FO [...] HCT IS 5% LESS SOURCE FOR DATA: [employer] 1800 OPERATION MANUAL( AUTOMATED BLOOD COUNTS AND [...] HCT IS 5% LESS SOURCE FOR DATA: [employer] 1800 OPERATION MANUAL( AUTOMATED BLOOD COUNTS AND DIFF.) APPENDIX B-3 ID Date Data Source [id number] 08/06/2019 02:57:00 PM EDT [facility] (Famil y [...] Creat 1.4 mg/dL 0.7-1.2 Above high normal [facility] CLASSIFICATION CHOLESTEROL [...] HCT IS 5% LESS SOURCE FOR DATA: [employer] 1800 OPERATION MANUAL( AUTOMATED BLOOD COUNTS AND DIFF.) APPENDIX B-3 K 4.5 mmol/L 3.5-5.1 [facility] CLASSIFICATION CHOLESTEROL FO [...] HCT IS 5% LESS SOURCE FOR DATA: [employer] DYN 1800 OPERATION MANUAL( AUTOMATED BLOOD COUNTS AND DIFF.) APPENDIX B-3 BUN/Creatinine Ratio 25.6 CALC [facility] ([facility] CLASSIFICATION CHOLESTEROL FO R [...] DIFF.) APPENDIX B-3 Na 139 mmol/L 136-145 [facility] CLASSIFICATION CHOLESTEROL FO [...] HCT IS 5% LESS SOURCE FOR DATA: [employer] 1800 OPERATION MANUAL( AUTOMATED BLOOD COUNTS AND [...] Co2 24.5 mmol/L 22.0-29.0 [facility] ([facility] CLASSIFICATION CHOLESTEROL FO R ADULTS [...] DIFF.) APPENDIX B-3 CL 101.9 mmol/L 98.0-107.0 [facility] ([facility] CLASSIFICATION CHOLESTEROL FO R ADULTS CHILDREN/ADOLESCENTS* [...] DIFF.) APPENDIX B-3 TP 7.0 g/dL 6.6-8.7 [facility] ([facility] CLASSIFICATION CHOLESTEROL [...] HCT IS 5% LESS SOURCE FOR DATA: [employer] 1800 OPERATION MANUAL( AUTOMATED BLOOD COUNTS AND [...] HCT IS 5% LESS SOURCE FOR DATA: [employer] DYN 1800 OPERATION MANUAL( AUTOMATED BLOOD COUNTS AND DIFF.) APPENDIX B-3 A/G Ratio 1.4 [facility]C [facility] ([place] [facility] CLASSIFICATION CHOLESTEROL FO R ADULTS [...] HCT IS 5% LESS SOURCE FOR DATA: [employer] DYN 1800 OPERATION MANUAL( AUTOMATED BLOOD COUNTS AND DIFF.) APPENDIX B-3 Globulin 2.9 CALC MEDENT ([facility] CLASSIFICATION CHOLESTEROL FO R [...] APPENDIX B-3 Alp 74.9 U/L 40-129 [facility] ([facility] CLASSIFICATION CHOLESTEROL FO [...] APPENDIX B-3 Alt (SGPT) 10 U/L 0-41 [facility] ([facility] CLASSIFICATION CHOLESTEROL FO [...] HCT IS 5% LESS SOURCE FOR DATA: [employer] 1800 OPERATION MANUAL( AUTOMATED BLOOD COUNTS AND [...] APPENDIX B-3 Ast (Sgot) 16 U/L 0-40 [facility] CLASSIFICATION CHOLESTEROL FO [...] HCT IS 5% LESS SOURCE FOR DATA: [employer] 1800 OPERATION MANUAL( AUTOMATED BLOOD COUNTS AND DIFF.) APPENDIX B-3 Tbili 0.39 mg/dL 0.0-1.2 MEDENT ([facility] CLASSIFICATION CHOLESTEROL FO [...] DIFF.) APPENDIX B-3 Anion Gap 18 mmol/L [facility] ([facility] CLASSIFICATION CHOLESTEROL [...] HCT IS 5% LESS SOURCE FOR DATA: [employer] DYN 1800 OPERATION MANUAL( AUTOMATED BLOOD COUNTS [...] HCT IS 5% LESS SOURCE FOR DATA: [employer] 1800 OPERATION MANUAL( AUTOMATED BLOOD COUNTS AND DIFF.) APPENDIX B-3 eGFR Non-Afr. Senegalese 47 # MEDENT ([facility] [...] DIFF.) APPENDIX B-3 ID Date Data Source [id number] 07/16/2019 10:56:00 AM EDT LILLIAN ([facility]) Name Value Range Interpretation Code Description Data Annette rce(s) Supporting Document(s) Inr 2.71 DIMITRYENT ([facility]) THERAPUTIC HUMAN INR VALUES INDICATIONS NORMAL RANGES PROPHYLAXIS/TREATMENT OF: VENOUS THROMBOSIS 2.0-3.0 PULMONARY EMBOLISM 2.0-3.0 PREVENTION OF SYSTEMIC EMBOLISM FROM: TISSUE HEART VALVES 2.0-3.0 ACUTE MYOCARDIAL INFARCTION 2.0-3.0 VALVULAR HEART DISEASE 2.0-3.0 ATRIAL FIBRILLATION 2.0-3.0 MECHANICAL VALVES(HIGH RISK) 2.5-3.5 RECURRENT MYOCARDIAL INFARCTION 2.5-3.5 Prothrombin Time 28.6 s 11.8-14.0 MEDENT ([facility]) ID Date Data Source [id number] 07/16/2019 10:56:00 AM EDT MEDENT ([facility] Name Value Range Interpretation Code Description Data Annette rce(s) Supporting Document(s) Prothrombin Time 28.6 s 11.8-14.0 Above high normal M EDENT ([facility] Inr 2.71 Normal (applies to non-numeric resul ts) MEDENT ([facility] THERAPUTIC HUMAN INR VALUES INDICATIONS NORMAL RANGES PROPHYLAXIS/TREATMENT OF: VENOUS THROMBOSIS 2.0-3.0 PULMONARY EMBOLISM 2.0-3.0 PREVENTION OF SYSTEMIC EMBOLISM FROM: TISSUE HEART VALVES 2.0-3.0 ACUTE MYOCARDIAL INFARCTION 2.0-3.0 VALVULAR HEART DISEASE 2.0-3.0 ATRIAL FIBRILLATION 2.0-3.0 MECHANICAL VALVES(HIGH RISK) 2.5-3.5 RECURRENT MYOCARDIAL INFARCTION 2.5-3.5 ID Date Data Source [id number] 06/23/2019 07:50:00 AM EST MEDENT ([facility]) Name Value Range Interpretation Code Description Data Annette rce(s) Supporting Document(s) Inr 2.62 MEDENT ([facility]) THERAPUTIC HUMAN INR VALUES INDICATIONS NORMAL RANGES PROPHYLAXIS/TREATMENT OF: VENOUS THROMBOSIS 2.0-3.0 PULMONARY EMBOLISM 2.0-3.0 PREVENTION OF SYSTEMIC EMBOLISM FROM: TISSUE HEART VALVES 2.0-3.0 ACUTE MYOCARDIAL INFARCTION 2.0-3.0 VALVULAR HEART DISEASE 2.0-3.0 ATRIAL FIBRILLATION 2.0-3.0 MECHANICAL VALVES(HIGH RISK) 2.5-3.5 RECURRENT MYOCARDIAL INFARCTION 2.5-3.5 Prothrombin Time 27.9 s 11.8-14.0 [facility] ([facility]) ID Date Data Source [id number] 05/27/2019 08:42:00 AM EST MEDENT ([facility]) Name Value Range Interpretation Code Description Data Annette rce(s) Supporting Document(s) Prothrombin Time 34.0 s 11.8-14.0 [facility] Inr 3.36 MEDENT ([facility]) THERAPUTIC HUMAN INR VALUES INDICATIONS NORMAL RANGES PROPHYLAXIS/TREATMENT OF: VENOUS THROMBOSIS 2.0-3.0 PULMONARY EMBOLISM 2.0-3.0 PREVENTION OF SYSTEMIC EMBOLISM FROM: TISSUE HEART VALVES 2.0-3.0 ACUTE MYOCARDIAL INFARCTION 2.0-3.0 VALVULAR HEART DISEASE 2.0-3.0 ATRIAL FIBRILLATION 2.0-3.0 MECHANICAL VALVES(HIGH RISK) 2.5-3.5 RECURRENT MYOCARDIAL INFARCTION 2.5-3.5 ID Date Data Source [id number] 05/06/2019 11:09:00 AM EST [facility] Name Value Range Interpretation Code Description Data Annette rce(s) Supporting Document(s) Magnesium Level 2.25 [facility] ([facility]) ID Date Data Source [id number] 05/06/2019 11:09:00 AM EST [facility] Name Value Range Interpretation Code Description Data Annette rce(s) Supporting Document(s) White Blood Count 7.4 5.0-10.0 MEDENT ([facility] iology [facility]) Red Blood Count 3.73 4.70-6.10 MEDENT (Cardio logy [facility]) Platelets 231 172-450 MEDENT ([facility]) Hematocrit 37.0 42.0-52.0 MEDENT (Cardiology [facility]) Hemoglobin 12.0 14.0-18.0 MEDENT (Cardiology [facility]) ID Date Data Source [id number] 05/06/2019 11:09:00 AM EST [facility] Name Value Range Interpretation Code Description Data Annette rce(s) Supporting Document(s) Glucose 111 70-100 MEDENT ([facility]) Blood Urea Nitrogen 27.9 5-21 MEDENT ([facility]) Sodium 140.3 136-146 MEDENT ([facility]) Glomerular filtration rate/1.73 sq M.pre dicted [Volume Rate/Area] in Serum or Plasma by Creatinine-based formula (MDRD) 51 MEDENT ([facility] [facility]) Creatinine 1.34 0.6-1.5 MEDENT (Cardiology [facility]) Chloride 100.4 98-110 MED[facility] ([facility]) Potassium 3.85 3.5-5.3 MEDENT ([facility]) Carbon Dioxide 31.8 20-32 MEDENT (Cardiol ogy [facility]) Albumin 4.2 3.5-4.7 MEDENT ([facility]) Phosphorus 3.12 MEDENT (Cardiology [facility]) Calcium 9.49 8.4-10.4 MEDENT ([facility]) ID Date Data Source [id number] 05/06/2019 07:48:00 AM EST MED[facility] ([facility]) Name Value Range Interpretation Code Description Data Annette rce(s) Supporting Document(s) Prothrombin Time 34.7 s 11.8-14.0 MED[facility] ([facility]) Inr 3.44 MEDENT ([facility]) THERAPUTIC HUMAN INR VALUES INDICATIONS NORMAL RANGES PROPHYLAXIS/TREATMENT OF: VENOUS THROMBOSIS 2.0-3.0 PULMONARY EMBOLISM 2.0-3.0 PREVENTION OF SYSTEMIC EMBOLISM FROM: TISSUE HEART VALVES 2.0-3.0 ACUTE MYOCARDIAL INFARCTION 2.0-3.0 VALVULAR HEART DISEASE 2.0-3.0 ATRIAL FIBRILLATION 2.0-3.0 MECHANICAL VALVES(HIGH RISK) 2.5-3.5 RECURRENT MYOCARDIAL INFARCTION 2.5-3.5 ID Date Data Source [id number] 04/29/2019 08:11:00 AM EST MEDENT ([facility]) Name Value Range Interpretation Code Description Data Annette rce(s) Supporting Document(s) Prothrombin Time 40.7 s 11.8-14.0 MED[facility] ([facility]) Inr 4.20 MEDENT ([facility]) THERAPUTIC HUMAN INR VALUES INDICATIONS NORMAL RANGES PROPHYLAXIS/TREATMENT OF: VENOUS THROMBOSIS 2.0-3.0 PULMONARY EMBOLISM 2.0-3.0 PREVENTION OF SYSTEMIC EMBOLISM FROM: TISSUE HEART VALVES 2.0-3.0 ACUTE MYOCARDIAL INFARCTION 2.0-3.0 VALVULAR HEART DISEASE 2.0-3.0 ATRIAL FIBRILLATION 2.0-3.0 MECHANICAL VALVES(HIGH RISK) 2.5-3.5 RECURRENT MYOCARDIAL INFARCTION 2.5-3.5 ID Date Data Source [id number] 04/29/2019 08:11:00 AM EST MEDENT ([facility] Name Value Range Interpretation Code Description Data Annette rce(s) Supporting Document(s) Inr 4.20 Normal (applies to non-numeric resul ts) MEDENT ([facility] THERAPUTIC HUMAN INR VALUES INDICATIONS NORMAL RANGES PROPHYLAXIS/TREATMENT OF: VENOUS THROMBOSIS 2.0-3.0 PULMONARY EMBOLISM 2.0-3.0 PREVENTION OF SYSTEMIC EMBOLISM FROM: TISSUE HEART VALVES 2.0-3.0 ACUTE MYOCARDIAL INFARCTION 2.0-3.0 VALVULAR HEART DISEASE 2.0-3.0 ATRIAL FIBRILLATION 2.0-3.0 MECHANICAL VALVES(HIGH RISK) 2.5-3.5 RECURRENT MYOCARDIAL INFARCTION 2.5-3.5 Prothrombin Time 40.7 s 11.8-14.0 Above high normal M EDRENATA ([facility] Procedure Social History Code Duration Value Status Description Data Source(s ) Smoking 02/05/2020 12:00:00 AM EDT Patient is a former smoker completed Patient is a former smoker MEDENT ([facility]) Vital Signs ID Date Data Source UNK Name Value Range Interpretation Code Description Data Source(s) Oxygen saturation in Arterial blood by Pulse oximetry 97 % 97 % MEDENT ([facility] Eighty Eight body weight 178 [lb_av] 178 [lb_av] MEDEN T ([facility] Body height 72 [in_i] 72 [in_i] MEDENT ([facility] 6'0" Respiratory rate 18 /min 18 /min MEDRENATA ( [facility] Heart rate 64 /min 64 /min MEDRENATA ([facility] Body temperature 97.9 [degF] 97.9 [degF] MEDENT ([facility] Diastolic blood pressure 66 mm[Hg] 66 mm[Hg] MEDENT ([facility] Systolic blood pressure 122 mm[Hg] 122 mm[Hg] M EDENT ([facility] Oxygen saturation in Arterial blood by Pulse oximetry 97 % 97 % MEDENT ([facility] Body mass index (BMI) [Ratio] 33.9 kg/m2 33.9 k g/m2 MEDENT ([facility] Eighty Eight body weight 178 [lb_av] 178 [lb_av] MEDEN T ([facility] Body weight 250.00 [lb_av] 250.00 [lb_av] MEDEN T ([facility] Body height 72 [in_i] 72 [in_i] MEDENT ([facility] 6'0" Respiratory rate 14 /min 14 /min MEDENT ( [facility] Heart rate 58 /min 58 /min MEDENT ([facility] Body temperature 97.3 [degF] 97.3 [degF] MEDENT ([facility] Diastolic blood pressure 60 mm[Hg] 60 mm[Hg] MEDENT ([facility] Systolic blood pressure 138 mm[Hg] 138 mm[Hg] EDENT ([facility] Diastolic blood pressure 68 mm[Hg] 68 mm[Hg] MEDENT ([facility]) sitting Systolic blood pressure 122 mm[Hg] 122 mm[Hg] M EDENT ([facility]) sitting Diastolic blood pressure 68 mm[Hg] 68 mm[Hg] MEDENT ([facility]) sitting, large cuff Systolic blood pressure 118 mm[Hg] 118 mm[Hg] M EDENT ([facility]) sitting, large cuff Respiratory rate 16 /min 16 /min MEDENT ( [facility]) Heart rate 60 /min 60 /min MEDENT ([facility]io [facility]y [facility]) Regular Body mass index (BMI) [Ratio] 34.3 kg/m2 34.3 k g/m2 MEDENT ([facility]) Body height 72 [in_i] 72 [in_i] MEDENT ([facility]i [facility]) 6'0" Body weight 253.00 [lb_av] 253.00 [lb_av] MEDEN T ([facility]) Body weight 125.647 kg 125.647 kg MEDENT ([facility]) Body mass index (BMI) [Ratio] 37.6 kg/m2 37.6 k g/m2 MEDENT ([facility]) Body weight 277.00 [lb_av] 277.00 [lb_av] MEDEN T ([facility]) Body height 72 [in_i] 72 [in_i] MEDENT ([facility]) 6'0" Diastolic blood pressure 62 mm[Hg] 62 mm[Hg] MEDENT ([facility]) Systolic blood pressure 152 mm[Hg] 152 mm[Hg] M EDENT ([facility]) Body mass index (BMI) [Ratio] 37.6 kg/m2 37.6 k g/m2 MED[facility] ([facility] Eighty [place] body weight 178 [lb_av] 178 [lb_av] MEDEN T ([facility] Body weight 277.00 [lb_av] 277.00 [lb_av] MEDEN T ([facility] Body height 72 [in_i] 72 [in_i] MEDENT ([facility] 6'0" Respiratory rate [...] k g/m2 MED[facility] ([facility] [place] body weight 178 [lb_av] 178 [lb_av] MEDEN T ([facility] Body weight 272.00 [lb_av] 272.00 [lb_av] MEDEN T ([facility] Body height 72 [in_i] 72 [in_i] MEDENT ([facility] 6'0" Respiratory rate [...] Body height 72 [in_i] 72 [in_i] MEDENT ([facility] 6'0" Respiratory rate [...] mm[Hg] 68 mm[Hg] MEDENT ([facility]) sitting Systolic blood pressure 128 mm[Hg] 128 mm[Hg] M EDENT ([facility]) sitting Diastolic blood pressure 68 mm[Hg] 68 mm[Hg] MEDENT ([facility]) sitting, large cuff Systolic blood pressure 132 mm[Hg] 132 mm[Hg] M EDENT ([facility]) sitting, large cuff Respiratory rate 16 /min 16 /min MEDENT ( [facility]) Heart rate 60 /min 60 /min MEDENT (Cardio [facility]y [facility]) Irregular Body mass index (BMI) [Ratio] 37.6 kg/m2 37.6 k g/m2 MEDENT ([facility]) Body height 72 [in_i] 72 [in_i] MEDENT ([facility]i [facility]y [facility]) 6'0" Body weight 277.00 [lb_av] 277.00 [lb_av] DIMITRYEN T ([facility])
[2020-06-10] MEDS ORDERED: ZYLO300T6 PO (03:06)
[2020-06-10] MEDS ORDERED: TORS20TA2 PO ×2 (03:13→03:17)
[2020-06-10] MEDS ORDERED: ATOR1TAB21 PO (03:13)
[2020-06-10] MEDS ORDERED: OMEP-221 PO (03:13)
[2020-06-10] MEDS ORDERED: CARB25TA9 PO (03:13)
[2020-06-10] MEDS ORDERED: BISO5TAB14 PO (03:13)
[2020-06-10] MEDS ORDERED: SPIR1AER INH (03:13)
[2020-06-10] MEDS ORDERED: POTA10TA17 PO (03:13)
[2020-06-10] MEDS ORDERED: SPIR-10 PO (03:13)
[2020-06-10] MEDS ORDERED: ADV250INH INH (03:13)
[2020-06-10] MEDS ORDERED: WARF-58 PO (03:17)
[2020-06-10] MEDS ORDERED: WARF-23 PO (03:17)
[2020-06-10 04:05] LABS: FERRITIN 66 NG/ML (26-388); IRON (FE) 128 UG/DL (65-175); PERCENT SATURATION 49.4 % (19.7-50.0); TOTAL IRON BINDING CAPACITY 259 UG/DL (250-450)
[2020-06-10] MEDS ORDERED: NITROGLYCERIN 0.4 MG SUBL TABLET SL PRN (04:45)
[2020-06-10] MEDS ORDERED: FLUTICASONE PROP 0.05% NASAL SPRAY 16 GM (FLONASE) PRN (04:45)
[2020-06-10] MEDS ORDERED: ALBUTEROL 90 MCG/ACT 8GM HFA INHALER INH PRN (04:45)
[2020-06-10] MEDS ORDERED: NS 1,000 ML IV SCH (04:45)
--- OUTSIDE RECORDS SUMMARY | 2020-06-10 04:47 | CCD ---
Author Author [facility] Organization [facility] Address Unknown Phone Unavailable Care Team Providers Care Java Solutions Architect Name Role Phone KiranwMary Ellen PA Unavailable [...] Ellen Lyn PA Unavailable Unavailable Symenow, Mary Eleln Lyn PA Unavailable Unavailable Symenow, Mary Ellen [...] ASHLEIGH FAIRCHILD Unavailable Unavailable CHRIST H ASHLEIGH AFIRCHILD Unavailable Unavailable CHRIST H ASHLEIGH AFIRCHILD Unavailable Unavailable CHRIST H ASHLEIGH FAIRCHILD Unavailable [...] is protected by Article 27-F of the [place] Public Health law. If you continue you may have access to information: Regarding HIV / AIDS; Provided by facilities licensed or operated by the [facility] Office of Mental Health; or Provided by the [facility] Office for People With Developmental Disabilities. If such information is present, then the following [facility] mandated warning applies: This information has been [...] [facility]) Unknown Unknown Problem [facility] ([facility] ) mother Dx age 89 Encounters Encounter Providers Location Date Indications Data Source(s ) Outpatient Attender: ASHLEIGH POLO MD [place] Office 01:00:00 PM EST [facility] Outpatient Attender: ASHLEIGH [place] Office 12:30:00 PM EST [facility] ([facility] Office Visit Attender: DARIN PAINTING MD Main [facility] 02/23/2020 07:15:00 AM EST [facility] ([facility] Outpatient Attender: ASHLEIGH [place] Office 02:45:00 PM EDT MED[facility] ([facility] Outpatient Attender: Eboni HAYES Main Office 02/05/2020 01:00:00 PM EDT [facility] ([facility]) Outpatient Attender: ASHLEIGH [place] Office 11/2019 02:30:00 PM EDT MED[facility] ([facility] Outpatient Attender: DARIN PAINTING MD Main office - [facility] n 12/01/2019 02:00:00 PM EDT [facility] ([facility]) Outpatient Attender: ASHLEIGH POLO MD [place] Office 08/2019 03:40:00 PM EDT MED[facility] ([facility] Outpatient Attender: ASHLEIGH [place] Office 02:30:00 PM EDT MED[facility] ([facility] Outpatient Attender: Eboni HAYES Main Office 08/06/2019 11:30:00 AM EDT [facility] ([facility]) Medications Medication Brand Name Start Date Product Form Dose Route Admi nistrative Instructions Pharmacy Instructions Status Indications Reaction Description Data Source(s) Warfarin Sodium 3 MG Oral Tablet Warfarin Sodium 06/03/2020 12:00:00 AM EST ORAL active [facility] ([facility] Metolazone 2.5 MG Oral Tablet Metolazone ORAL acti ve [facility] ([facility] 60 ACTUAT Albuterol 0.09 MG/ACTUAT Metered Dose Inhaler Albu terol Sulfate HFA 02/10/2020 12:00:00 AM EDT RESPIRATORY active [facility] ([facility] torsemide 20 MG Oral Tablet Torsemide 02/04/2020 12:00:00 AM EDT ORAL active [facility] ([facility]) Carbidopa 25 MG / Levodopa 100 MG Oral Tablet Carbidopa-Levo dopa 02/04/2020 12:00:00 AM EDT ORAL active M EDENT ([facility]) Klor-Con M20 Klor-Con M20 02/04/2020 12:00:00 AM EDT active [facility] ([facility]) Metolazone 2.5 MG Oral Tablet Metolazone 02/04/2020 12:00:00 AM EDT ORAL active [facility] ([facility]) Warfarin Sodium 5 MG Oral Tablet Warfarin Sodium 01/05/2020 12:00:00 AM EDT ORAL active [facility] ([facility] Carbidopa 25 MG / Levodopa 100 MG Oral Tablet [Sinemet] Sine met 12/04/2019 12:00:00 AM EDT ORAL active M EDENT ([facility]) Wixela Inhub Wixela Inhub 08/28/2019 12:00:00 AM EDT active [facility] ([facility] Wixela Inhub Wixela Inhub 08/06/2019 12:00:00 AM EDT completed [facility] ([facility] Fluticasone propionate 0.5 MG/ML Topical Cream Fluticasone P ropionate 08/06/2019 12:00:00 AM EDT completed [facility] ([facility] Wixela Inhub Wixela Inhub 08/05/2019 12:00:00 AM EDT active [facility] ([facility]) Fluticasone propionate 0.5 MG/ML Topical Cream Fluticasone P ropionate 08/05/2019 12:00:00 AM EDT active [facility] ([facility]) Insurance Providers Payer name Policy type / Coverage type Policy ID Covered democrat ID Covered democrat's relationship to luz Policy Luz Plan Information AARP HEALTH CARE OPTIONS [id number] SP [id number] MEDICARE [id number] SP [id number] AARP O [id number] S [id number] MEDICARE C [id number] S [id number] MEDICARE COMPLETE [id number] SP [id number] BC/BS Of [facility] Part B [id number] Self [id number] BC/BS Of [facility] Part B [id number] Self [id number] [employer] Commercial [id number] Self [id number] Excellus BC/BS Of [facility] Part B [id number] Self [id number] BCBS Medicare Blue U/W Commercial [id number] Self [id number] [employer] Commercial [id number] Self [id number] MVP Commercial [id number] Self [id number] BC/BS Of [facility] Part B [id number] Self [id number] [facility] [id number] Self [id number] [employer] Commercial [id number] Self [id number] Excellus BC/BS Of [facility] Part B [id number] Self [id number] BCBS Medicare Blue U/W Commercial [id number] Self [id number] [employer] Commercial [id number] Self [id number] BC/BS Of [facility] Part B [id number] Self [id number] BC/BS Of [facility] Part B [id number] Self [id number] [employer] Commercial [id number] Self [id number] Excellus BC/BS [facility] Part B [id number] Self [id number] BCBS Medicare Blue U/W Commercial [id number] Self [id number] [employer] [facility] [employer] Commercial [id number] Self [id number] BC/BS Of [facility] Part B [id number] Self [id number] BC/BS [facility] Part B [id number] Self [id number] [employer] Commercial [id number] Self [id number] Excell[employer] BC/BS [facility] Part B [id number] Self [id number] BCBS Medicare Blue U/W Commercial [id number] Self [id number] [employer] Commercial [id number] Self [id number] BC/BS [facility] Part B [id number] Self [id number] BC/BS [facility] Part B [id number] Self [id number] [employer] Commercial [id number] Self [id number] Excellus BC/BS Of [facility] Part B [id number] Self [id number] BCBS Medicare Blue U/W Commercial [id number] Self [id number] [employer] Commercial [id number] Self [id number] BC/BS Of [facility] Part B [id number] Self [id number] BC/BS Of [facility] Part B [id number] Self [id number] [employer] Commercial [id number] Self [id number] Excellus BC/BS Of [facility] Part B [id number] Self [id number] BCBS Medicare Blue U/W Commercial [id number] Self [id number] [employer] Commercial [id number] Self [id number] BC/BS Of [facility] Part B [id number] Self [id number] BC/BS Of [facility] Part B [id number] Self [id number] [employer] Commercial [id number] Self [id number] [employer] BC/BS Of [facility] Part B [id number] Self [id number] BCBS Medicare Blue U/W Commercial [id number] Self [id number] [employer] [facility] [employer] Commercial [id number] Self [id number] BC/BS Of [facility] Part B [id number] Self [id number] BC/BS Of [facility] Part B [id number] Self [id number] [employer] Commercial [id number] Self [id number] [employer] BC/BS Of [facility] Part B [id number] Self [id number] BCBS Medicare Blue U/W Commercial [id number] Self [id number] [employer] Commercial [id number] Self [id number] Medicare Blue Ppo Commercial [id number] Self [id number] [facility] Medicare Commercial [id number] Self [id number] MEDICARE COMPLETE [id number] SP [id number] MEDICARE COMPLETE-[facility] O [id number] S [id number] MEDICARE [id number] SP [id number] MEDICARE COMPLETE [id number] SP [id number] BC/BS Of [facility] B [id number] Self [id number] BC/BS Of [facility] B [id number] Self [id number] [employer] Commercial [id number] Self [id number] Excell[employer] BC/BS Of [facility] Part B [id number] Self [id number] BCBS Medicare Blue U/W Commercial [id number] Self [id number] [facility] [employer] Commercial [id number] Self [id number] Medicare Blue Ppo Commercial [id number] Self [id number] [facility] Medicare Commercial [id number] Self [id number] BC/BS Of [facility] B [id number] Self [id number] BC/BS Of [facility] B [id number] Self [id number] [employer] Commercial [id number] Self [id number] Excellus BC/BS Of [facility] Part B [id number] Self [id number] BCBS Medicare Blue U/W Commercial [id number] Self [id number] [facility]-[employer] Commercial [id number] Self [id number] [facility]-[employer] Commercial Self BCBS Medicare Blue U/W Commercial Self MVP Commercial Self BC/BS Of [facility] Part B Self BC/BS Of [facility] B Self [employer] Commercial Self Excellus BC/BS Of [facility] B Self [facility] MEDICARE [id number] K[employer] [id number] [facility]-[employer] Commercial Self MEDICARE BLUE PPO 306 [id number] SP [id number] [facility] [id number] SP [id number] MEDICARE BLUE PPO 306 [id number] SP [id number] BCBS - Medicare Blue Ppo Commercial Self [employer]LLUS BCBS P [id number] S VYM [employer] BCBS P [id number] S [id number] [employer] BCBS P UNAVAILABLE S UNAV AILABLE [id number] Problems, Conditions, and Diagnoses Code Display Name Description Problem Type Effective Dates Data Source(s) 17620164 Tremor Tremor Problem 12/01/2019 12:00:00 AM ED T MEDENT ([facility] ) Surgeries/Procedures Procedure Description Date Indications Data Source(s) Anticoagulant MGMT For Patient Taking Warfarin, Inc Review & Intr 06/08/2020 12:00:00 AM EST [facility] ([facility] Anticoagulant MGMT For Patient Taking Warfarin, Inc Review & Intr 06/01/2020 12:00:00 AM EST [facility] ([facility]) Anticoagulant MGMT For Patient Taking Warfarin, Inc Review & Intr 04/13/2020 12:00:00 AM EST [facility] ([facility]) Anticoagulant MGMT For Patient Taking Warfarin, Inc Review & Intr 03/25/2020 12:00:00 AM EST [facility] ([facility]) Anticoagulant MGMT For Patient Taking Warfarin, Inc Review & Intr 02/26/2020 12:00:00 AM EST MED[facility] ([facility]) TSTG ANS FUNCJ CARDIOVAGAL INNERVAJ PARASYMP 0 12:00:00 AM EDT MEDENT ([facility] ) TSTG ANS FUNCJ CARDIOVAGAL INNERVAJ PARASYMP 0 12:00:00 AM EDT MED[facility] ([facility] ) TESTING AUTONOMIC NERVOUS SYSTEM FUNCTION 02/20/2020 1 2:00:00 AM EDT MED[facility] ([facility] ) TESTING AUTONOMIC NERVOUS SYSTEM FUNCTION 02/20/2020 1 2:00:00 AM EDT MED[facility] ([facility] ) ELECTROENCEPHALOGRAM W/REC AWAKE&ASLEEP 02/19/2020 12: 00:00 AM EDT MED[facility] ([facility] ) ELECTROENCEPHALOGRAM W/REC AWAKE&ASLEEP 02/19/2020 12: 00:00 AM EDT MEDENT ([facility] ) Anticoagulant MGMT For Patient Taking Warfarin, Inc Review & Intr 02/10/2020 12:00:00 AM EDT [facility] ([facility]) ECG ROUTINE ECG W/LEAST 12 LDS W/I&R 02/05/2020 12:00: 00 AM EDT [facility] ([facility]) Anticoagulant MGMT For Patient Taking Warfarin, Inc Review & Intr 01/12/2020 12:00:00 AM EDT MED[facility] ([facility]) Anticoagulant MGMT For Patient Taking Warfarin, Inc Review & Intr 12/23/2019 12:00:00 AM EDT [facility] ([facility]) MRI BRAIN BRAIN STEM W/O CONTRAST MATERIAL 12/13/2019 12:00:00 AM EDT MEDENT ([facility] ) MRI BRAIN BRAIN STEM W/O CONTRAST MATERIAL 12/13/2019 12:00:00 AM EDT MED[facility] ([facility] ) MRI SPINAL CANAL LUMBAR W/O CONTRAST MATERIAL 12/13/19 12:00:00 AM EDT MED[facility] ([facility] ) MRI SPINAL CANAL LUMBAR W/O CONTRAST MATERIAL 12/13/19 12:00:00 AM EDT MED[facility] ([facility] ) Anticoagulant MGMT For Patient Taking Warfarin, Inc Review & Intr 12/12/2019 12:00:00 AM EDT [facility] ([facility]) Needle electromyography, each extremity, with related paraspinal areas, when performed, done with nerve conduction, amplitude and latency/velocity study; complete, five or more muscles studied, innervated by three or more nerves or four or more spinal levels (list separately in addition to the code for primary procedure). 12/08/2019 12:00:00 AM EDT MEDEN T ([facility] ) Needle electromyography, each extremity, with related paraspinal areas, when performed, done with nerve conduction, amplitude and latency/velocity study; complete, five or more muscles studied, innervated by three or more nerves or four or more spinal levels (list separately in addition to the code for primary procedure). 12/08/2019 12:00:00 AM EDT MEDEN T ([facility], ) [address]41 Nerve conduction studies 13 or more studies NEW 201212/08/2019 12:00:00 AM EDT MED[facility] ([facility] ) Anticoagulant MGMT For Patient Taking Warfarin, Inc Review & Intr 11/10/2019 12:00:00 AM EDT [facility] ([facility]) Anticoagulant MGMT For Patient Taking Warfarin, Inc Review & Intr 10/21/2019 12:00:00 AM EDT [facility] ([facility]) Anticoagulant MGMT For Patient Taking Warfarin, Inc Review & Intr 10/14/2019 12:00:00 AM EDT [facility] ([facility]) Anticoagulant MGMT For Patient Taking Warfarin, Inc Review & Intr 09/29/2019 12:00:00 AM EDT [facility] ([facility]) Anticoagulant MGMT For Patient Taking Warfarin, Inc Review & Intr 09/03/2019 12:00:00 AM EDT [facility] ([facility]) Anticoagulant MGMT For Patient Taking Warfarin, Inc Review & Intr 08/21/2019 12:00:00 AM EDT [facility] ([facility]) ECG ROUTINE ECG W/LEAST 12 LDS W/I&R 08/06/2019 12:00: 00 AM EDT [facility] ([facility]) Anticoagulant MGMT For Patient Taking Warfarin, Inc Review & Intr 07/16/2019 12:00:00 AM EDT [facility] ([facility]) Anticoagulant MGMT For Patient Taking Warfarin, Inc Review & Intr 06/23/2019 12:00:00 AM EST [facility] ([facility]) Anticoagulant MGMT For Patient Taking Warfarin, Inc Review & Intr 05/28/2019 12:00:00 AM EST [facility] ([facility]) Anticoagulant MGMT For Patient Taking Warfarin, Inc Review & Intr 05/06/2019 12:00:00 AM EST [facility] ([facility]) Anticoagulant MGMT For Patient Taking Warfarin, Inc Review & Intr 04/29/2019 12:00:00 AM EST [facility] ([facility]) Results ID Date Data Source [id number] 06/07/2020 09:20:00 AM EST [facility] Name Value Range Interpretation Code Description Data Annette rce(s) Supporting Document(s) Prothrombin Time 42.7 s 12.5-14.3 [facility] ([facility]) Inr 4.36 [facility] ([facility]) THERAPUTIC HUMAN INR VALUES INDICATIONS NORMAL RANGES PROPHYLAXIS/TREATMENT OF: VENOUS THROMBOSIS 2.0-3.0 PULMONARY EMBOLISM 2.0-3.0 PREVENTION OF SYSTEMIC EMBOLISM FROM: TISSUE HEART VALVES 2.0-3.0 ACUTE MYOCARDIAL INFARCTION 2.0-3.0 VALVULAR HEART DISEASE 2.0-3.0 ATRIAL FIBRILLATION 2.0-3.0 MECHANICAL VALVES(HIGH RISK) 2.5-3.5 RECURRENT MYOCARDIAL INFARCTION 2.5-3.5 ID Date Data Source [id number] 05/31/2020 12:40:00 PM EST [facility] ([facility] Name Value Range Interpretation Code Description Data Annette rce(s) Supporting Document(s) Inr 3.31 MED[facility] ([facility] THERAPUTIC HUMAN INR VALUES INDICATIONS NORMAL RANGES PROPHYLAXIS/TREATMENT OF: VENOUS THROMBOSIS 2.0-3.0 PULMONARY EMBOLISM 2.0-3.0 PREVENTION OF SYSTEMIC EMBOLISM FROM: TISSUE HEART VALVES 2.0-3.0 ACUTE MYOCARDIAL INFARCTION 2.0-3.0 VALVULAR HEART DISEASE 2.0-3.0 ATRIAL FIBRILLATION 2.0-3.0 MECHANICAL VALVES(HIGH RISK) 2.5-3.5 RECURRENT MYOCARDIAL INFARCTION 2.5-3.5 Prothrombin Time 34.4 s 12.5-14.3 [facility] [place] ID Date Data Source [id number] 04/29/2020 05:38:00 PM EST [facility] Name Value Range Interpretation Code Description Data Annette rce(s) Supporting Document(s) SARS-CoV-2 (COVID 19) NEGATIVE - SARS-CoV-2 (COVID19) [facility] This lab was ordered by [facility] a nd reported by [facility]. ID Date Data Source [id number] 04/12/2020 09:51:00 AM EST [facility] ([facility] Name Value Range Interpretation Code Description Data Annette rce(s) Supporting Document(s) Prothrombin Time 27.0 s 12.5-14.3 [facility] [place] Inr 2.43 [facility] ([facility]) THERAPUTIC HUMAN INR VALUES INDICATIONS NORMAL RANGES PROPHYLAXIS/TREATMENT OF: VENOUS THROMBOSIS 2.0-3.0 PULMONARY EMBOLISM 2.0-3.0 PREVENTION OF SYSTEMIC EMBOLISM FROM: TISSUE HEART VALVES 2.0-3.0 ACUTE MYOCARDIAL INFARCTION 2.0-3.0 VALVULAR HEART DISEASE 2.0-3.0 ATRIAL FIBRILLATION 2.0-3.0 MECHANICAL VALVES(HIGH RISK) 2.5-3.5 RECURRENT MYOCARDIAL INFARCTION 2.5-3.5 ID Date Data Source [id number] 04/12/2020 09:51:00 AM EST [facility] ([facility] Name Value Range Interpretation Code Description Data Annette rce(s) Supporting Document(s) Inr 2.43 Normal (applies to non-numeric resul ts) MED[facility] ([facility] THERAPUTIC HUMAN INR VALUES INDICATIONS NORMAL RANGES PROPHYLAXIS/TREATMENT OF: VENOUS THROMBOSIS 2.0-3.0 PULMONARY EMBOLISM 2.0-3.0 PREVENTION OF SYSTEMIC EMBOLISM FROM: TISSUE HEART VALVES 2.0-3.0 ACUTE MYOCARDIAL INFARCTION 2.0-3.0 VALVULAR HEART DISEASE 2.0-3.0 ATRIAL FIBRILLATION 2.0-3.0 MECHANICAL VALVES(HIGH RISK) 2.5-3.5 RECURRENT MYOCARDIAL INFARCTION 2.5-3.5 Prothrombin Time 27.0 s 12.5-14.3 Above high normal M EDRENATA ([facility] ID Date Data Source [id number] 04/07/2020 02:05:00 PM EST MEDENT ([facility] Name Value Range Interpretation Code Description Data [facility](s) Supporting Document(s) WBC 7.8 10E3/uL 4.1-10.9 MED[facility] ([facility] NORMAL RANGES Age WBC [...] HCT IS 5% LESS SOURCE FOR DATA: [employer] 1800 OPERATION MANUAL( AUTOMATED BLOOD COUNTS AND [...] HGB 11.5 g/dL 12.0-18.0 Below low normal [facility] NORMAL [...] HCT IS 5% LESS SOURCE FOR DATA: [employer] 1800 OPERATION MANUAL( AUTOMATED BLOOD COUNTS AND [...] RBC 3.45 10E6/uL 4.20-6.30 Below low normal [facility] NORMAL RANGES [...] HCT IS 5% LESS SOURCE FOR DATA: [employer] 1800 OPERATION MANUAL( AUTOMATED BLOOD COUNTS AND [...] HCT IS 5% LESS SOURCE FOR DATA: [employer] 1800 OPERATION MANUAL( AUTOMATED BLOOD COUNTS AND [...] HCT 34.7 % 37.0-51.0 Below low normal [facility] NORMAL [...] HCT IS 5% LESS SOURCE FOR DATA: [employer] 1800 OPERATION MANUAL( AUTOMATED BLOOD COUNTS AND [...] >32 mL/min Normal MCHC 33.1 g/dL 31.0-36.0 [facility] ([facility] NORMAL RANGES [...] HCT IS 5% LESS SOURCE FOR DATA: [employer] 1800 OPERATION MANUAL( AUTOMATED BLOOD COUNTS AND [...] >32 mL/min Normal PLT 205 10E3/uL 140-440 [facility] ([facility] NORMAL RANGES Age WBC RBC HGB [...] HCT IS 5% LESS SOURCE FOR DATA: [employer] 1800 OPERATION MANUAL( AUTOMATED BLOOD COUNTS AND [...] MCH 33.3 pg 26.0-32.0 Above high normal [facility] NORMAL RANGES [...] RDW-CV 16.1 % 11.5-14.5 Above high normal [facility] NORMAL RANGES [...] HCT IS 5% LESS SOURCE FOR DATA: [employer] 1800 OPERATION MANUAL( AUTOMATED BLOOD COUNTS AND [...] Lym% 9.2 % 10.0-58.5 Below low normal [facility] ( [facility] NORMAL RANGES [...] HCT IS 5% LESS SOURCE FOR DATA: [employer] 1800 OPERATION MANUAL( AUTOMATED BLOOD COUNTS AND [...] >32 mL/min Normal Neut% 77.1 % 37.0-92.0 [facility] ([facility] NORMAL RANGES [...] HCT IS 5% LESS SOURCE FOR DATA: [employer] 1800 OPERATION MANUAL( AUTOMATED BLOOD COUNTS AND [...] >32 mL/min Normal MXD% 13.7 % 0.1-24.0 [facility] ([facility] NORMAL RANGES [...] HCT IS 5% LESS SOURCE FOR DATA: [employer] 1800 OPERATION MANUAL( AUTOMATED BLOOD COUNTS AND [...] mL/min Normal MXD# 1.1 10E3/uL 0.0-1.8 [facility] ([facility] NORMAL RANGES Age WBC [...] HCT IS 5% LESS SOURCE FOR DATA: [employer] 1800 OPERATION MANUAL( AUTOMATED BLOOD COUNTS AND [...] >32 mL/min Normal Neut# 6.0 % 2.0-7.8 [facility] NORMAL RANGES Age [...] HCT IS 5% LESS SOURCE FOR DATA: [employer] 1800 OPERATION MANUAL( AUTOMATED BLOOD COUNTS AND [...] mL/min Normal Lym# 0.7 10E3/uL 0.6-4.1 [facility] ([facility] NORMAL RANGES Age WBC [...] HCT IS 5% LESS SOURCE FOR DATA: [employer] 1800 OPERATION MANUAL( AUTOMATED BLOOD COUNTS AND [...] mL/min Normal MPV 11.0 fL 9.0-13.0 [facility] NORMAL RANGES Age WBC [...] HCT IS 5% LESS SOURCE FOR DATA: [employer] 1800 OPERATION MANUAL( AUTOMATED BLOOD COUNTS AND [...] >32 mL/min Normal ID Date Data Source [id number] 04/07/2020 02:05:00 PM EST MEDENT (Famil y [...] HCT IS 5% LESS SOURCE FOR DATA: SureSpeak DYN 1800 OPERATION MANUAL( AUTOMATED BLOOD COUNTS [...] >32 mL/min Normal Glu 87 mg/dL 70-110 [facility] NORMAL RANGES Age [...] HCT IS 5% LESS SOURCE FOR DATA: Innovacene 1800 OPERATION MANUAL( AUTOMATED BLOOD COUNTS AND [...] >32 mL/min Normal BUN/Creatinine Ratio 30.6 CALC aiHit ([facility] NORMAL RANGES [...] HCT IS 5% LESS SOURCE FOR DATA: Innovacene 1800 OPERATION MANUAL( AUTOMATED BLOOD COUNTS AND [...] HCT IS 5% LESS SOURCE FOR DATA: Innovacene 1800 OPERATION MANUAL( AUTOMATED BLOOD COUNTS AND [...] >32 mL/min Normal CA 9.0 mg/dL 8.6-10.2 [facility] ([facility] NORMAL [...] HCT IS 5% LESS SOURCE FOR DATA: Innovacene 1800 OPERATION MANUAL( AUTOMATED BLOOD COUNTS AND [...] >32 mL/min Normal Co2 28.1 mmol/L 22.0-29.0 [facility] ([facility] NORMAL RANGES Age WBC [...] HCT IS 5% LESS SOURCE FOR DATA: Innovacene 1800 OPERATION MANUAL( AUTOMATED BLOOD COUNTS AND [...] >32 mL/min Normal Na 138 mmol/L 136-145 [facility] ([facility] NORMAL RANGES [...] HCT IS 5% LESS SOURCE FOR DATA: Innovacene 1800 OPERATION MANUAL( AUTOMATED BLOOD COUNTS AND [...] >32 mL/min Normal K 3.8 mmol/L 3.5-5.1 [facility] ([facility] NORMAL RANGES [...] HCT IS 5% LESS SOURCE FOR DATA: Innovacene 1800 OPERATION MANUAL( AUTOMATED BLOOD COUNTS AND [...] >32 mL/min Normal Anion Gap 15 mmol/L [facility] ([facility] NORMAL RANGES Age WBC RBC [...] HCT IS 5% LESS SOURCE FOR DATA: Innovacene 1800 OPERATION MANUAL( AUTOMATED BLOOD COUNTS AND [...] >32 mL/min Normal CL 98.2 mmol/L 98.0-107.0 aiHit ([facility] NORMAL RANGES Age WBC [...] mL/min Normal eGFR 60 # LILLIAN ( [facility] NORMAL RANGES [...] HCT IS 5% LESS SOURCE FOR DATA: Innovacene 1800 OPERATION MANUAL( AUTOMATED BLOOD COUNTS AND [...] and above >32 mL/min Normal eGFR Non-Afr. Tu[place]uan 52 # MEDENT ([facility] [...] HCT IS 5% LESS SOURCE FOR DATA: Innovacene 1800 OPERATION MANUAL( AUTOMATED BLOOD COUNTS AND [...] >32 mL/min Normal ID Date Data Source [id number] 03/25/2020 11:05:00 AM EST MEDENT ([facility]) Name Value Range Interpretation Code Description Data Annette rce(s) Supporting Document(s) Prothrombin Time 35.0 s 12.5-14.3 [facility] ([facility]) Inr 3.38 MEDENT (Cardiology A [facility] [place]) THERAPUTIC HUMAN INR VALUES INDICATIONS NORMAL RANGES PROPHYLAXIS/TREATMENT OF: VENOUS THROMBOSIS 2.0-3.0 PULMONARY EMBOLISM 2.0-3.0 PREVENTION OF SYSTEMIC EMBOLISM FROM: TISSUE HEART VALVES 2.0-3.0 ACUTE MYOCARDIAL INFARCTION 2.0-3.0 VALVULAR HEART DISEASE 2.0-3.0 ATRIAL FIBRILLATION 2.0-3.0 MECHANICAL VALVES(HIGH RISK) 2.5-3.5 RECURRENT MYOCARDIAL INFARCTION 2.5-3.5 ID Date Data Source [id number] 03/25/2020 11:05:00 AM EST MEDENT ([facility] Name Value Range Interpretation Code Description Data Annette rce(s) Supporting Document(s) Prothrombin Time 35.0 s 12.5-14.3 Above high normal M EDENT ([facility] Inr 3.38 Normal (applies to non-numeric resul ts) MEDRENATA ([facility] THERAPUTIC HUMAN INR VALUES INDICATIONS NORMAL RANGES PROPHYLAXIS/TREATMENT OF: VENOUS THROMBOSIS 2.0-3.0 PULMONARY EMBOLISM 2.0-3.0 PREVENTION OF SYSTEMIC EMBOLISM FROM: TISSUE HEART VALVES 2.0-3.0 ACUTE MYOCARDIAL INFARCTION 2.0-3.0 VALVULAR HEART DISEASE 2.0-3.0 ATRIAL FIBRILLATION 2.0-3.0 MECHANICAL VALVES(HIGH RISK) 2.5-3.5 RECURRENT MYOCARDIAL INFARCTION 2.5-3.5 ID Date Data Source [id number] 03/01/2020 09:02:00 AM EST LILLIAN ([facility] Name Value Range Interpretation Code Description Data Annette rce(s) Supporting Document(s) Chol 140 mg/dL 0-200 [facility] NORMAL RANGES Age WBC [...] HCT IS 5% LESS SOURCE FOR DATA: SureSpeak DYN 1800 OPERATION MANUAL( AUTOMATED BLOOD COUNTS [...] HCT IS 5% LESS SOURCE FOR DATA: Innovacene 1800 OPERATION MANUAL( AUTOMATED BLOOD COUNTS AND [...] YEARS EXCLUSIVE. LDL_C 86 Calc 75-129 LILLIAN ([facility] NORMAL RANGES Age WBC [...] HCT IS 5% LESS SOURCE FOR DATA: Innovacene 1800 OPERATION MANUAL( AUTOMATED BLOOD COUNTS AND [...] HCT IS 5% LESS SOURCE FOR DATA: Innovacene 1800 OPERATION MANUAL( AUTOMATED BLOOD COUNTS AND [...] Cho/HDL Ratio 4.4 CALC MEDENT ([facility] NORMAL RANGES Age WBC [...] HCT IS 5% LESS SOURCE FOR DATA: Innovacene 1800 OPERATION MANUAL( AUTOMATED BLOOD COUNTS AND [...] 2-19 YEARS EXCLUSIVE. ID Date Data Source [id number] 03/01/2020 09:02:00 AM EST MEDENT (Famil y [...] HCT IS 5% LESS SOURCE FOR DATA: SureSpeak DYN 1800 OPERATION MANUAL( AUTOMATED BLOOD COUNTS [...] 2-19 YEARS EXCLUSIVE. Glu 98 mg/dL 70-110 [facility] ([facility] NORMAL [...] HCT IS 5% LESS SOURCE FOR DATA: Innovacene 1800 OPERATION MANUAL( AUTOMATED BLOOD COUNTS AND [...] 2-19 YEARS EXCLUSIVE. BUN/Creatinine Ratio 24.6 CALC [facility] ([facility] NORMAL RANGES [...] HCT IS 5% LESS SOURCE FOR DATA: Innovacene 1800 OPERATION MANUAL( AUTOMATED BLOOD COUNTS AND [...] HCT IS 5% LESS SOURCE FOR DATA: Innovacene 1800 OPERATION MANUAL( AUTOMATED BLOOD COUNTS AND [...] 2-19 YEARS EXCLUSIVE. Na 138 mmol/L 136-145 [facility] ([facility] NORMAL [...] HCT IS 5% LESS SOURCE FOR DATA: Innovacene 1800 OPERATION MANUAL( AUTOMATED BLOOD COUNTS AND [...] 2-19 YEARS EXCLUSIVE. K 4.3 mmol/L 3.5-5.1 [facility] ([facility] NORMAL [...] HCT IS 5% LESS SOURCE FOR DATA: Innovacene 1800 OPERATION MANUAL( AUTOMATED BLOOD COUNTS AND [...] 2-19 YEARS EXCLUSIVE. CL 101.8 mmol/L 98.0-107.0 [facility] ([facility] NORMAL RANGES Age WBC RBC HGB [...] HCT IS 5% LESS SOURCE FOR DATA: Innovacene 1800 OPERATION MANUAL( AUTOMATED BLOOD COUNTS AND [...] 2-19 YEARS EXCLUSIVE. Co2 24.3 mmol/L 22.0-29.0 [facility] ([facility] NORMAL RANGES Age WBC [...] HCT IS 5% LESS SOURCE FOR DATA: Innovacene 1800 OPERATION MANUAL( AUTOMATED BLOOD COUNTS AND [...] TP 6.2 g/dL 6.6-8.7 Below low normal [facility] ( [facility] NORMAL RANGES [...] HCT IS 5% LESS SOURCE FOR DATA: Innovacene 1800 OPERATION MANUAL( AUTOMATED BLOOD COUNTS AND [...] 2-19 YEARS EXCLUSIVE. CA 9.1 mg/dL 8.6-10.2 [facility] ([facility] NORMAL [...] HCT IS 5% LESS SOURCE FOR DATA: SureSpeak DYN 1800 OPERATION MANUAL( AUTOMATED BLOOD COUNTS [...] HCT IS 5% LESS SOURCE FOR DATA: Innovacene 1800 OPERATION MANUAL( AUTOMATED BLOOD COUNTS AND [...] YEARS EXCLUSIVE. A/G Ratio 1.5 CALC LILLIAN ([facility] NORMAL RANGES Age [...] HCT IS 5% LESS SOURCE FOR DATA: Innovacene 1800 OPERATION MANUAL( AUTOMATED BLOOD COUNTS AND [...] 2-19 YEARS EXCLUSIVE. Alp 66.3 U/L 40-129 [facility] ([facility] NORMAL [...] HCT IS 5% LESS SOURCE FOR DATA: Innovacene 1800 OPERATION MANUAL( AUTOMATED BLOOD COUNTS AND [...] HCT IS 5% LESS SOURCE FOR DATA: Innovacene 1800 OPERATION MANUAL( AUTOMATED BLOOD COUNTS AND [...] YEARS EXCLUSIVE. Alt (SGPT) 2 U/L 0-41 [facility] ([facility] NORMAL RANGES Age WBC RBC [...] HCT IS 5% LESS SOURCE FOR DATA: Innovacene 1800 OPERATION MANUAL( AUTOMATED BLOOD COUNTS AND [...] YEARS EXCLUSIVE. Ast (Sgot) 15 U/L 0-40 [facility] ([facility] NORMAL RANGES Age WBC RBC [...] HCT IS 5% LESS SOURCE FOR DATA: Innovacene 1800 OPERATION MANUAL( AUTOMATED BLOOD COUNTS AND [...] HCT IS 5% LESS SOURCE FOR DATA: Innovacene 1800 OPERATION MANUAL( AUTOMATED BLOOD COUNTS AND [...] IS 5% LESS SOURCE FOR DATA: HUBERT PROSimity 1800 OPERATION MANUAL( AUTOMATED BLOOD COUNTS AND [...] HCT IS 5% LESS SOURCE FOR DATA: Innovacene 1800 OPERATION MANUAL( AUTOMATED BLOOD COUNTS AND [...] HCT IS 5% LESS SOURCE FOR DATA: Innovacene 1800 OPERATION MANUAL( AUTOMATED BLOOD COUNTS AND [...] INDIVIDUALA AGED 2-19 YEARS EXCLUSIVE. eGFR Non-Afr. Tu[place]uan 47 # MEDENT ([facility] [...] 2-19 YEARS EXCLUSIVE. ID Date Data Source [id number] 03/01/2020 09:02:00 AM EST LILLIAN ([facility] Name Value Range Interpretation Code Description Data Annette rce(s) Supporting Document(s) WBC 6.7 10E3/uL 4.1-10.9 MEDENT ([facility] NORMAL RANGES Age WBC RBC [...] HCT IS 5% LESS SOURCE FOR DATA: Innovacene 1800 OPERATION MANUAL( AUTOMATED BLOOD COUNTS AND [...] RBC 3.51 10E6/uL 4.20-6.30 Below low normal [facility] ([facility] NORMAL RANGES [...] HCT IS 5% LESS SOURCE FOR DATA: Innovacene 1800 OPERATION MANUAL( AUTOMATED BLOOD COUNTS AND [...] HGB 11.4 g/dL 12.0-18.0 Below low normal [facility] ( [facility] NORMAL [...] HCT IS 5% LESS SOURCE FOR DATA: Innovacene 1800 OPERATION MANUAL( AUTOMATED BLOOD COUNTS AND [...] HCT IS 5% LESS SOURCE FOR DATA: Innovacene 1800 OPERATION MANUAL( AUTOMATED BLOOD COUNTS AND [...] HCT 34.7 % 37.0-51.0 Below low normal [facility] ( [facility] NORMAL RANGES [...] HCT IS 5% LESS SOURCE FOR DATA: Innovacene 1800 OPERATION MANUAL( AUTOMATED BLOOD COUNTS AND [...] MCH 32.5 pg 26.0-32.0 Above high normal [facility] ([facility] NORMAL RANGES [...] HCT IS 5% LESS SOURCE FOR DATA: Innovacene 1800 OPERATION MANUAL( AUTOMATED BLOOD COUNTS AND [...] HCT IS 5% LESS SOURCE FOR DATA: Innovacene 1800 OPERATION MANUAL( AUTOMATED BLOOD COUNTS AND [...] 2-19 YEARS EXCLUSIVE. PLT 149 10E3/uL 140-440 [facility] ([facility] NORMAL RANGES Age WBC RBC HGB [...] HCT IS 5% LESS SOURCE FOR DATA: Innovacene 1800 OPERATION MANUAL( AUTOMATED BLOOD COUNTS AND [...] 2-19 YEARS EXCLUSIVE. Neut% 75.8 % 37.0-92.0 [facility] ([facility] NORMAL [...] HCT IS 5% LESS SOURCE FOR DATA: Innovacene 1800 OPERATION MANUAL( AUTOMATED BLOOD COUNTS AND [...] HCT IS 5% LESS SOURCE FOR DATA: Innovacene 1800 OPERATION MANUAL( AUTOMATED BLOOD COUNTS AND [...] RDW-CV 15.4 % 11.5-14.5 Above high normal [facility] ([facility] NORMAL RANGES [...] 2-19 YEARS EXCLUSIVE. Lym# 0.7 10E3/uL 0.6-4.1 [facility] ([facility] NORMAL RANGES Age WBC [...] HCT IS 5% LESS SOURCE FOR DATA: Innovacene 1800 OPERATION MANUAL( AUTOMATED BLOOD COUNTS AND [...] HCT IS 5% LESS SOURCE FOR DATA: Innovacene 1800 OPERATION MANUAL( AUTOMATED BLOOD COUNTS AND [...] 2-19 YEARS EXCLUSIVE. MXD# 1.0 10E3/uL 0.0-1.8 [facility] ([facility] NORMAL RANGES Age WBC [...] HCT IS 5% LESS SOURCE FOR DATA: SureSpeak DYN 1800 OPERATION MANUAL( AUTOMATED BLOOD COUNTS [...] 2-19 YEARS EXCLUSIVE. Neut# 5.0 % 2.0-7.8 [facility] ([facility] NORMAL [...] HCT IS 5% LESS SOURCE FOR DATA: Innovacene 1800 OPERATION MANUAL( AUTOMATED BLOOD COUNTS AND [...] 2-19 YEARS EXCLUSIVE. MPV 10.9 fL 9.0-13.0 [facility] ([facility] NORMAL [...] HCT IS 5% LESS SOURCE FOR DATA: Innovacene 1800 OPERATION MANUAL( AUTOMATED BLOOD COUNTS AND [...] 2-19 YEARS EXCLUSIVE. ID Date Data Source [id number] 02/25/2020 08:11:00 AM EST MEDENT ([facility]) Name Value Range Interpretation Code Description Data Annette rce(s) Supporting Document(s) Prothrombin Time 27.4 s 12.5-14.3 MEDENT ([facility]) Inr 2.48 MEDENT (Cardiology A [facility] [place]) THERAPUTIC HUMAN INR VALUES INDICATIONS NORMAL RANGES PROPHYLAXIS/TREATMENT OF: VENOUS THROMBOSIS 2.0-3.0 PULMONARY EMBOLISM 2.0-3.0 PREVENTION OF SYSTEMIC EMBOLISM FROM: TISSUE HEART VALVES 2.0-3.0 ACUTE MYOCARDIAL INFARCTION 2.0-3.0 VALVULAR HEART DISEASE 2.0-3.0 ATRIAL FIBRILLATION 2.0-3.0 MECHANICAL VALVES(HIGH RISK) 2.5-3.5 RECURRENT MYOCARDIAL INFARCTION 2.5-3.5 ID Date Data Source [id number] 02/25/2020 08:11:00 AM EST MEDENT ([facility] Name Value Range Interpretation Code Description Data Annette rce(s) Supporting Document(s) Prothrombin Time 27.4 s 12.5-14.3 Above high normal M EDENT ([facility] Inr 2.48 Normal (applies to non-numeric resul ts) MEDENT ([facility] THERAPUTIC HUMAN INR VALUES INDICATIONS NORMAL RANGES PROPHYLAXIS/TREATMENT OF: VENOUS THROMBOSIS 2.0-3.0 PULMONARY EMBOLISM 2.0-3.0 PREVENTION OF SYSTEMIC EMBOLISM FROM: TISSUE HEART VALVES 2.0-3.0 ACUTE MYOCARDIAL INFARCTION 2.0-3.0 VALVULAR HEART DISEASE 2.0-3.0 ATRIAL FIBRILLATION 2.0-3.0 MECHANICAL VALVES(HIGH RISK) 2.5-3.5 RECURRENT MYOCARDIAL INFARCTION 2.5-3.5 ID Date Data Source [id number] 02/17/2020 03:19:00 PM EDT MEDENT ([employer] [facility] Name Value Range Interpretation Code Description Data Annette rce(s) Supporting Document(s) INR in Platelet poor plasma by Coagulation assay 3.6 MEDENT ([employer] [facility] Prothrombin Time-Therapy 43.0 MEDEN T ([facility] ID Date Data Source [id number] 02/17/2020 03:19:00 PM EDT MEDENT ([facility] [employer] [facility] Name Value Range Interpretation Code Description Data Annette rce(s) Supporting Document(s) WBC 11.3 10E3/uL 4.1-10.9 Above high normal MEDEN T ([employer] [facility] NORMAL RANGES Age WBC RBC [...] HCT IS 5% LESS SOURCE FOR DATA: Innovacene 1800 OPERATION MANUAL( AUTOMATED BLOOD COUNTS AND [...] >32 mL/min Normal RBC 4.22 10E6/uL 4.20-6.30 [facility] ([facility] NORMAL RANGES Age WBC [...] HCT IS 5% LESS SOURCE FOR DATA: Innovacene 1800 OPERATION MANUAL( AUTOMATED BLOOD COUNTS AND [...] >32 mL/min Normal HCT 40.8 % 37.0-51.0 [facility] ([facility] NORMAL [...] HCT IS 5% LESS SOURCE FOR DATA: Innovacene 1800 OPERATION MANUAL( AUTOMATED BLOOD COUNTS AND [...] HCT IS 5% LESS SOURCE FOR DATA: Innovacene 1800 OPERATION MANUAL( AUTOMATED BLOOD COUNTS AND [...] HCT IS 5% LESS SOURCE FOR DATA: Innovacene 1800 OPERATION MANUAL( AUTOMATED BLOOD COUNTS AND [...] MCH 32.7 pg 26.0-32.0 Above high normal [facility] ([facility] NORMAL RANGES [...] HCT IS 5% LESS SOURCE FOR DATA: Innovacene 1800 OPERATION MANUAL( AUTOMATED BLOOD COUNTS AND [...] >32 mL/min Normal PLT 186 10E3/uL 140-440 [facility] ([facility] NORMAL RANGES Age WBC RBC HGB [...] HCT IS 5% LESS SOURCE FOR DATA: Innovacene 1800 OPERATION MANUAL( AUTOMATED BLOOD COUNTS AND [...] >32 mL/min Normal MCHC 33.8 g/dL 31.0-36.0 [facility] NORMAL RANGES Age WBC RBC [...] HCT IS 5% LESS SOURCE FOR DATA: Innovacene 1800 OPERATION MANUAL( AUTOMATED BLOOD COUNTS AND [...] RDW-CV 14.7 % 11.5-14.5 Above high normal [facility] ([facility] NORMAL RANGES Age [...] Lym% 8.0 % 10.0-58.5 Below low normal [facility] ( [facility] NORMAL [...] HCT IS 5% LESS SOURCE FOR DATA: Innovacene 1800 OPERATION MANUAL( AUTOMATED BLOOD COUNTS AND [...] >32 mL/min Normal Neut% 75.7 % 37.0-92.0 [facility] ([facility] NORMAL [...] HCT IS 5% LESS SOURCE FOR DATA: Innovacene 1800 OPERATION MANUAL( AUTOMATED BLOOD COUNTS AND [...] >32 mL/min Normal Lym# 0.9 10E3/uL 0.6-4.1 [facility] ([facility] NORMAL RANGES Age WBC [...] HCT IS 5% LESS SOURCE FOR DATA: Innovacene 1800 OPERATION MANUAL( AUTOMATED BLOOD COUNTS AND [...] HCT IS 5% LESS SOURCE FOR DATA: Innovacene 1800 OPERATION MANUAL( AUTOMATED BLOOD COUNTS AND [...] HCT IS 5% LESS SOURCE FOR DATA: Innovacene 1800 OPERATION MANUAL( AUTOMATED BLOOD COUNTS AND [...] >32 mL/min Normal MXD# 1.8 10E3/uL 0.0-1.8 [facility] ([facility] NORMAL RANGES Age WBC [...] HCT IS 5% LESS SOURCE FOR DATA: Innovacene 1800 OPERATION MANUAL( AUTOMATED BLOOD COUNTS AND [...] >32 mL/min Normal MPV 12.4 fL 9.0-13.0 [facility] ([facility] NORMAL [...] HCT IS 5% LESS SOURCE FOR DATA: Innovacene 1800 OPERATION MANUAL( AUTOMATED BLOOD COUNTS AND [...] >32 mL/min Normal ID Date Data Source [id number] 02/17/2020 03:19:00 PM EDT MEDENT ([facility] Name Value Range Interpretation Code Description Data Annette rce(s) Supporting Document(s) Glu 106 mg/dL 70-110 [facility] ([facility] NORMAL RANGES Age WBC [...] BUN 81 mg/dL 8-23 Above high normal [facility] ([facility] NORMAL RANGES Age WBC [...] HCT IS 5% LESS SOURCE FOR DATA: Innovacene 1800 OPERATION MANUAL( AUTOMATED BLOOD COUNTS AND [...] HCT IS 5% LESS SOURCE FOR DATA: Innovacene 1800 OPERATION MANUAL( AUTOMATED BLOOD COUNTS AND [...] >32 mL/min Normal BUN/Creatinine Ratio 41.9 Calc [facility] ([facility] NORMAL RANGES [...] HCT IS 5% LESS SOURCE FOR DATA: Innovacene 1800 OPERATION MANUAL( AUTOMATED BLOOD COUNTS AND [...] Na 134 mmol/L 136-145 Below low normal [facility] ( [facility] NORMAL [...] HCT IS 5% LESS SOURCE FOR DATA: Innovacene 1800 OPERATION MANUAL( AUTOMATED BLOOD COUNTS AND [...] >32 mL/min Normal K 3.5 mmol/L 3.5-5.1 [facility] ([facility] NORMAL RANGES Age WBC RBC [...] HCT IS 5% LESS SOURCE FOR DATA: Innovacene 1800 OPERATION MANUAL( AUTOMATED BLOOD COUNTS AND [...] HCT IS 5% LESS SOURCE FOR DATA: Innovacene 1800 OPERATION MANUAL( AUTOMATED BLOOD COUNTS AND [...] Below low normal [facility] ([facility] NORMAL RANGES Age WBC [...] HCT IS 5% LESS SOURCE FOR DATA: Innovacene 1800 OPERATION MANUAL( AUTOMATED BLOOD COUNTS AND [...] >32 mL/min Normal Co2 28.1 mmol/L 22.0-29.0 [facility] ([facility] NORMAL RANGES Age WBC RBC HGB [...] HCT IS 5% LESS SOURCE FOR DATA: Innovacene 1800 OPERATION MANUAL( AUTOMATED BLOOD COUNTS AND [...] >32 mL/min Normal A/G Ratio 1.4 Calc [facility] ([facility] NORMAL RANGES Age [...] HCT IS 5% LESS SOURCE FOR DATA: Innovacene 1800 OPERATION MANUAL( AUTOMATED BLOOD COUNTS AND [...] >32 mL/min Normal Alb 4.4 g/dL 3.5-5.2 [facility] ([facility] NORMAL RANGES Age WBC [...] >32 mL/min Normal TP 7.6 g/dL 6.6-8.7 [facility] ([facility] NORMAL RANGES Age WBC [...] HCT IS 5% LESS SOURCE FOR DATA: Innovacene 1800 OPERATION MANUAL( AUTOMATED BLOOD COUNTS AND [...] mL/min Normal Globulin 3.2 Calc MEDENT ([facility] NORMAL RANGES Age [...] HCT IS 5% LESS SOURCE FOR DATA: Innovacene 1800 OPERATION MANUAL( AUTOMATED BLOOD COUNTS AND [...] mL/min Normal Alp 82.2 U/L 40-129 LILLIAN ([facility] NORMAL RANGES Age [...] HCT IS 5% LESS SOURCE FOR DATA: Innovacene 1800 OPERATION MANUAL( AUTOMATED BLOOD COUNTS AND [...] mL/min Normal Alt (SGPT) 9 U/L 0-41 [facility] ([facility] NORMAL RANGES [...] HCT IS 5% LESS SOURCE FOR DATA: Innovacene 1800 OPERATION MANUAL( AUTOMATED BLOOD COUNTS AND [...] >32 mL/min Normal Tbili 0.84 mg/dL 0.0-1.2 [facility] ([facility] NORMAL RANGES [...] HCT IS 5% LESS SOURCE FOR DATA: Innovacene 1800 OPERATION MANUAL( AUTOMATED BLOOD COUNTS AND [...] mL/min Normal Ast (Sgot) 22 U/L 0-40 [facility] ([facility] NORMAL RANGES Age WBC RBC [...] HCT IS 5% LESS SOURCE FOR DATA: Innovacene 1800 OPERATION MANUAL( AUTOMATED BLOOD COUNTS AND [...] mL/min Normal Osmolality-Calculated 293.2 Calc MED ENT ([facility] NORMAL RANGES [...] HCT IS 5% LESS SOURCE FOR DATA: Innovacene 1800 OPERATION MANUAL( AUTOMATED BLOOD COUNTS AND [...] mL/min Normal Anion Gap 20 mmol/L LILLIAN ([facility] NORMAL RANGES Age WBC [...] HCT IS 5% LESS SOURCE FOR DATA: Innovacene 1800 OPERATION MANUAL( AUTOMATED BLOOD COUNTS AND [...] 38 # MEDENT ( [facility] NORMAL RANGES Age WBC [...] HCT IS 5% LESS SOURCE FOR DATA: Innovacene 1800 OPERATION MANUAL( AUTOMATED BLOOD COUNTS AND [...] and above >32 mL/min Normal eGFR Non-Afr. Tu[place]uan 33 # MEDENT ([facility] [...] HCT IS 5% LESS SOURCE FOR DATA: Innovacene 1800 OPERATION MANUAL( AUTOMATED BLOOD COUNTS AND [...] >32 mL/min Normal ID Date Data Source [id number] 02/10/2020 10:05:00 AM EDT MEDENT ([facility]) Name Value Range Interpretation Code Description Data Annette rce(s) Supporting Document(s) Prothrombin Time 25.5 s 12.5-14.3 MEDENT ([facility]i [facility]) Inr 2.26 MEDENT (Cardiology A [facility] [place]) THERAPUTIC HUMAN INR VALUES INDICATIONS NORMAL RANGES PROPHYLAXIS/TREATMENT OF: VENOUS THROMBOSIS 2.0-3.0 PULMONARY EMBOLISM 2.0-3.0 PREVENTION OF SYSTEMIC EMBOLISM FROM: TISSUE HEART VALVES 2.0-3.0 ACUTE MYOCARDIAL INFARCTION 2.0-3.0 VALVULAR HEART DISEASE 2.0-3.0 ATRIAL FIBRILLATION 2.0-3.0 MECHANICAL VALVES(HIGH RISK) 2.5-3.5 RECURRENT MYOCARDIAL INFARCTION 2.5-3.5 ID Date Data Source [id number] 02/10/2020 10:05:00 AM EDT MEDENT ([facility] Name Value Range Interpretation Code Description Data Annette rce(s) Supporting Document(s) Prothrombin Time 25.5 s 12.5-14.3 Above high normal M EDENT ([facility] Inr 2.26 Normal (applies to non-numeric resul ts) MEDENT ([facility] THERAPUTIC HUMAN INR VALUES INDICATIONS NORMAL RANGES PROPHYLAXIS/TREATMENT OF: VENOUS THROMBOSIS 2.0-3.0 PULMONARY EMBOLISM 2.0-3.0 PREVENTION OF SYSTEMIC EMBOLISM FROM: TISSUE HEART VALVES 2.0-3.0 ACUTE MYOCARDIAL INFARCTION 2.0-3.0 VALVULAR HEART DISEASE 2.0-3.0 ATRIAL FIBRILLATION 2.0-3.0 MECHANICAL VALVES(HIGH RISK) 2.5-3.5 RECURRENT MYOCARDIAL INFARCTION 2.5-3.5 ID Date Data Source [id number] 01/12/2020 08:57:00 AM EDT [facility] ([facility]) Name Value Range Interpretation Code Description Data Annette rce(s) Supporting Document(s) Prothrombin Time 34.0 s 12.5-14.3 [facility] ([facility]) Inr 3.26 MEDENT ([facility]) THERAPUTIC HUMAN INR VALUES INDICATIONS NORMAL RANGES PROPHYLAXIS/TREATMENT OF: VENOUS THROMBOSIS 2.0-3.0 PULMONARY EMBOLISM 2.0-3.0 PREVENTION OF SYSTEMIC EMBOLISM FROM: TISSUE HEART VALVES 2.0-3.0 ACUTE MYOCARDIAL INFARCTION 2.0-3.0 VALVULAR HEART DISEASE 2.0-3.0 ATRIAL FIBRILLATION 2.0-3.0 MECHANICAL VALVES(HIGH RISK) 2.5-3.5 RECURRENT MYOCARDIAL INFARCTION 2.5-3.5 ID Date Data Source [id number] 01/12/2020 08:57:00 AM EDT MEDENT ([facility] Name Value Range Interpretation Code Description Data Annette rce(s) Supporting Document(s) Prothrombin Time 34.0 s 12.5-14.3 Above high normal M EDENT ([facility] Inr 3.26 Normal (applies to non-numeric resul ts) MEDENT ([facility] THERAPUTIC HUMAN INR VALUES INDICATIONS NORMAL RANGES PROPHYLAXIS/TREATMENT OF: VENOUS THROMBOSIS 2.0-3.0 PULMONARY EMBOLISM 2.0-3.0 PREVENTION OF SYSTEMIC EMBOLISM FROM: TISSUE HEART VALVES 2.0-3.0 ACUTE MYOCARDIAL INFARCTION 2.0-3.0 VALVULAR HEART DISEASE 2.0-3.0 ATRIAL FIBRILLATION 2.0-3.0 MECHANICAL VALVES(HIGH RISK) 2.5-3.5 RECURRENT MYOCARDIAL INFARCTION 2.5-3.5 ID Date Data Source [id number] 12/30/2019 02:49:00 PM EDT LILLIAN ([facility] Name Value Range Interpretation Code Description Data Annette rce(s) Supporting Document(s) Glu 96 mg/dL 70-110 LILLIAN ([facility] NORMAL RANGES [...] HCT IS 5% LESS SOURCE FOR DATA: [employer] 1800 OPERATION MANUAL( AUTOMATED BLOOD COUNTS AND [...] BUN 31 mg/dL 8-23 Above high normal [facility] NORMAL RANGES Age WBC [...] HCT IS 5% LESS SOURCE FOR DATA: Innov[employer] 1800 OPERATION MANUAL( AUTOMATED BLOOD COUNTS AND [...] HCT IS 5% LESS SOURCE FOR DATA: SureSpe[employer] DYN 1800 OPERATION MANUAL( AUTOMATED BLOOD COUNTS [...] >32 mL/min Normal BUN/Creatinine Ratio 23.0 CALC aiHit ([facility] NORMAL RANGES Age WBC RBC [...] HCT IS 5% LESS SOURCE FOR DATA: [employer] 1800 OPERATION MANUAL( AUTOMATED BLOOD COUNTS AND [...] >32 mL/min Normal CA 8.6 mg/dL 8.6-10.2 [facility] NORMAL RANGES Age [...] HCT IS 5% LESS SOURCE FOR DATA: [employer] 1800 OPERATION MANUAL( AUTOMATED BLOOD COUNTS AND [...] >32 mL/min Normal Co2 23.0 mmol/L 22.0-29.0 [facility] ([facility] NORMAL RANGES Age WBC [...] HCT IS 5% LESS SOURCE FOR DATA: [employer] 1800 OPERATION MANUAL( AUTOMATED BLOOD COUNTS AND [...] >32 mL/min Normal Na 139 mmol/L 136-145 [facility] ([facility] NORMAL RANGES [...] HCT IS 5% LESS SOURCE FOR DATA: [employer] 1800 OPERATION MANUAL( AUTOMATED BLOOD COUNTS AND [...] mL/min Normal K 4.4 mmol/L 3.5-5.1 MEDRENATA ([facility] NORMAL RANGES [...] HCT IS 5% LESS SOURCE FOR DATA: [employer] 1800 OPERATION MANUAL( AUTOMATED BLOOD COUNTS AND [...] >32 mL/min Normal CL 105.2 mmol/L 98.0-107.0 [facility] ([facility] NORMAL RANGES Age WBC [...] HCT IS 5% LESS SOURCE FOR DATA: [employer] 1800 OPERATION MANUAL( AUTOMATED BLOOD COUNTS AND [...] >32 mL/min Normal Anion Gap 15 mmol/L [facility] NORMAL RANGES Age WBC [...] HCT IS 5% LESS SOURCE FOR DATA: [employer] 1800 OPERATION MANUAL( AUTOMATED BLOOD COUNTS AND [...] 55 # MEDENT ( [facility] CKD-EPI eGFR Non-Afr. Tu[place]uan 47 # MEDRENATA ([facility] CKD-EPI ID Date Data Source [id number] 12/30/2019 02:49:00 PM EDT LILLIAN ([facility] Name Value Range Interpretation Code Description Data Annette rce(s) Supporting Document(s) WBC 6.7 10E3/uL 4.1-10.9 LILLIAN ([facility] NORMAL RANGES Age WBC [...] HCT IS 5% LESS SOURCE FOR DATA: [employer] 1800 OPERATION MANUAL( AUTOMATED BLOOD COUNTS AND [...] RBC 3.50 10E6/uL 4.20-6.30 Below low normal [facility] ([facility] NORMAL RANGES [...] HCT IS 5% LESS SOURCE FOR DATA: [employer] 1800 OPERATION MANUAL( AUTOMATED BLOOD COUNTS AND [...] HGB 11.8 g/dL 12.0-18.0 Below low normal [facility] ( [facility] NORMAL [...] HCT IS 5% LESS SOURCE FOR DATA: [employer] 1800 OPERATION MANUAL( AUTOMATED BLOOD COUNTS AND [...] HCT 34.8 % 37.0-51.0 Below low normal [facility] ( [facility] NORMAL [...] HCT IS 5% LESS SOURCE FOR DATA: [employer] 1800 OPERATION MANUAL( AUTOMATED BLOOD COUNTS AND [...] HCT IS 5% LESS SOURCE FOR DATA: [employer] 1800 OPERATION MANUAL( AUTOMATED BLOOD COUNTS AND [...] MCH 33.7 pg 26.0-32.0 Above high normal [facility] ([facility] NORMAL RANGES [...] HCT IS 5% LESS SOURCE FOR DATA: [employer] 1800 OPERATION MANUAL( AUTOMATED BLOOD COUNTS AND [...] >32 mL/min Normal MCHC 33.9 g/dL 31.0-36.0 [facility] ([facility] NORMAL [...] HCT IS 5% LESS SOURCE FOR DATA: Sure[employer] DYN 1800 OPERATION MANUAL( AUTOMATED BLOOD COUNTS [...] >32 mL/min Normal PLT 157 10E3/uL 140-440 [facility] ([facility] NORMAL RANGES Age WBC RBC HGB [...] HCT IS 5% LESS SOURCE FOR DATA: [employer] 1800 OPERATION MANUAL( AUTOMATED BLOOD COUNTS AND [...] RDW-CV 14.8 % 11.5-14.5 Above high normal [facility] ([facility] NORMAL RANGES [...] HCT IS 5% LESS SOURCE FOR DATA: [employer] 1800 OPERATION MANUAL( AUTOMATED BLOOD COUNTS AND [...] >32 mL/min Normal Neut% 75.8 % 37.0-92.0 [facility] ([facility] NORMAL RANGES [...] HCT IS 5% LESS SOURCE FOR DATA: [employer] DYN 1800 OPERATION MANUAL( AUTOMATED BLOOD COUNTS [...] Lym% 9.4 % 10.0-58.5 Below low normal [facility] ( [facility] NORMAL RANGES [...] HCT IS 5% LESS SOURCE FOR DATA: [employer] 1800 OPERATION MANUAL( AUTOMATED BLOOD COUNTS AND [...] >32 mL/min Normal MXD% 14.8 % 0.1-24.0 [facility] ([facility] NORMAL RANGES [...] HCT IS 5% LESS SOURCE FOR DATA: [employer] 1800 OPERATION MANUAL( AUTOMATED BLOOD COUNTS AND [...] >32 mL/min Normal Lym# 0.6 10E3/uL 0.6-4.1 [facility] ([facility] NORMAL RANGES Age WBC [...] HCT IS 5% LESS SOURCE FOR DATA: [employer] 1800 OPERATION MANUAL( AUTOMATED BLOOD COUNTS AND [...] >32 mL/min Normal Neut# 5.1 % 2.0-7.8 [facility] ([facility] NORMAL [...] HCT IS 5% LESS SOURCE FOR DATA: [employer] 1800 OPERATION MANUAL( AUTOMATED BLOOD COUNTS AND [...] mL/min Normal MXD# 1.0 10E3/uL 0.0-1.8 LILLIAN ([facility] NORMAL RANGES Age WBC [...] HCT IS 5% LESS SOURCE FOR DATA: [employer] 1800 OPERATION MANUAL( AUTOMATED BLOOD COUNTS AND [...] >32 mL/min Normal MPV 11.7 fL 9.0-13.0 [facility] ([facility] NORMAL [...] HCT IS 5% LESS SOURCE FOR DATA: [employer] 1800 OPERATION MANUAL( AUTOMATED BLOOD COUNTS AND [...] >32 mL/min Normal ID Date Data Source [id number] 12/30/2019 01:32:00 PM EDT MEDENT ([facility]) Name Value Range Interpretation Code Description Data Annette rce(s) Supporting Document(s) White Blood Count 6.7 4.1-10.9 [facility] ([facility]) Red Blood Count 3.50 4.20-6.30 MED[facility] ([facility]) Platelets 157 140-440 MED[facility] ([facility]) Hemoglobin 11.8 12.0-18.0 MED[facility] ([facility]) Hematocrit 34.8 37.0-51.0 [facility] ([facility]) ID Date Data Source [id number] 12/30/2019 01:32:00 PM EDT MEDENT ([facility]) Name Value Range Interpretation Code Description Data Annette rce(s) Supporting Document(s) Calcium [Mass/volume] in Serum or Plasma 8.6 [facility] ([facility]) Sodium 139 MED[facility] ([facility]) Carbon dioxide, total [Moles/volume] in Serum or Plasma 23.0 [facility] ([facility]) Chloride [Moles/volume] in Serum or Plasma 105.2 [facility] ([facility]) Glucose 96 70-110 MED[facility] ([facility]) Potassium [Moles/volume] in Serum or Plasma 4.4 [facility] ([facility]) Blood Urea Nitrogen 31 8-23 MED[facility] (Ca [facility]di[facility]) Glomerular filtration rate/1.73 sq M.pre dicted [Volume Rate/Area] in Serum or Plasma by Creatinine-based formula (MDRD) Laboratory test result MEDENT ([facility]) Creatinine 1.4 0.7-1.2 [facility] ([facility]) ID Date Data Source [id number] 12/25/2019 11:20:00 AM EDT MEDENT ([facility] Name Value Range Interpretation Code Description Data Annette rce(s) Supporting Document(s) Occult Blood Laboratory test result MEDENT ([facility] ID Date Data Source [id number] 12/23/2019 08:23:00 AM EDT MEDENT ([facility]) Name Value Range Interpretation Code Description Data Annette rce(s) Supporting Document(s) Prothrombin Time 22.9 s 11.8-14.0 [facility] ([facility]) Inr 1.97 MED[facility] ([facility]) THERAPUTIC HUMAN INR VALUES INDICATIONS NORMAL RANGES PROPHYLAXIS/TREATMENT OF: VENOUS THROMBOSIS 2.0-3.0 PULMONARY EMBOLISM 2.0-3.0 PREVENTION OF SYSTEMIC EMBOLISM FROM: TISSUE HEART VALVES 2.0-3.0 ACUTE MYOCARDIAL INFARCTION 2.0-3.0 VALVULAR HEART DISEASE 2.0-3.0 ATRIAL FIBRILLATION 2.0-3.0 MECHANICAL VALVES(HIGH RISK) 2.5-3.5 RECURRENT MYOCARDIAL INFARCTION 2.5-3.5 ID Date Data Source [id number] 12/23/2019 08:23:00 AM EDT MEDENT ([facility] Name Value Range Interpretation Code Description Data Annette rce(s) Supporting Document(s) Prothrombin Time 22.9 s 11.8-14.0 Above high normal M EDENT ([facility] Inr 1.97 Normal (applies to non-numeric resul ts) MED[facility] ([facility] THERAPUTIC HUMAN INR VALUES INDICATIONS NORMAL RANGES PROPHYLAXIS/TREATMENT OF: VENOUS THROMBOSIS 2.0-3.0 PULMONARY EMBOLISM 2.0-3.0 PREVENTION OF SYSTEMIC EMBOLISM FROM: TISSUE HEART VALVES 2.0-3.0 ACUTE MYOCARDIAL INFARCTION 2.0-3.0 VALVULAR HEART DISEASE 2.0-3.0 ATRIAL FIBRILLATION 2.0-3.0 MECHANICAL VALVES(HIGH RISK) 2.5-3.5 RECURRENT MYOCARDIAL INFARCTION 2.5-3.5 ID Date Data Source [id number] 12/09/2019 03:30:00 PM EDT MEDENT ([facility]) Name Value Range Interpretation Code Description Data Annette rce(s) Supporting Document(s) P T 24.2 MEDENT ([facility]) I N R 2.12 [facility] ([facility]) ID Date Data Source [id number] 12/09/2019 10:15:00 AM EDT [facility] ([facility] Name Value Range Interpretation Code Description Data Annette rce(s) Supporting Document(s) Prothrombin Time 24.2 s 12.5-14.3 [facility] [place] Inr 2.12 [facility] ([facility]) THERAPUTIC HUMAN INR VALUES INDICATIONS NORMAL RANGES PROPHYLAXIS/TREATMENT OF: VENOUS THROMBOSIS 2.0-3.0 PULMONARY EMBOLISM 2.0-3.0 PREVENTION OF SYSTEMIC EMBOLISM FROM: TISSUE HEART VALVES 2.0-3.0 ACUTE MYOCARDIAL INFARCTION 2.0-3.0 VALVULAR HEART DISEASE 2.0-3.0 ATRIAL FIBRILLATION 2.0-3.0 MECHANICAL VALVES(HIGH RISK) 2.5-3.5 RECURRENT MYOCARDIAL INFARCTION 2.5-3.5 ID Date Data Source [id number] 11/10/2019 09:30:00 AM EDT [facility] ([facility] Name Value Range Interpretation Code Description Data Annette rce(s) Supporting Document(s) Prothrombin Time 27.1 s 11.8-14.0 [facility] [place] Inr 2.53 [facility] ([facility]) THERAPUTIC HUMAN INR VALUES INDICATIONS NORMAL RANGES PROPHYLAXIS/TREATMENT OF: VENOUS THROMBOSIS 2.0-3.0 PULMONARY EMBOLISM 2.0-3.0 PREVENTION OF SYSTEMIC EMBOLISM FROM: TISSUE HEART VALVES 2.0-3.0 ACUTE MYOCARDIAL INFARCTION 2.0-3.0 VALVULAR HEART DISEASE 2.0-3.0 ATRIAL FIBRILLATION 2.0-3.0 MECHANICAL VALVES(HIGH RISK) 2.5-3.5 RECURRENT MYOCARDIAL INFARCTION 2.5-3.5 ID Date Data Source [id number] 11/10/2019 09:30:00 AM EDT MEDENT ([facility] Name Value Range Interpretation Code Description Data Annette rce(s) Supporting Document(s) Prothrombin Time 27.1 s 11.8-14.0 Above high normal M EDENT ([facility] Inr 2.53 Normal (applies to non-numeric resul ts) MED[facility] ([facility] THERAPUTIC HUMAN INR VALUES INDICATIONS NORMAL RANGES PROPHYLAXIS/TREATMENT OF: VENOUS THROMBOSIS 2.0-3.0 PULMONARY EMBOLISM 2.0-3.0 PREVENTION OF SYSTEMIC EMBOLISM FROM: TISSUE HEART VALVES 2.0-3.0 ACUTE MYOCARDIAL INFARCTION 2.0-3.0 VALVULAR HEART DISEASE 2.0-3.0 ATRIAL FIBRILLATION 2.0-3.0 MECHANICAL VALVES(HIGH RISK) 2.5-3.5 RECURRENT MYOCARDIAL INFARCTION 2.5-3.5 ID Date Data Source [id number] 11/07/2019 09:43:00 AM EDT MEDRENATA ([facility]) Name Value Range Interpretation Code Description Data Annette rce(s) Supporting Document(s) RBC 3.35 10E6/uL 4.20-6.30 [facility] ([facility]) NORMAL RANGES Age WBC RBC HGB HCT [...] HCT IS 5% LESS SOURCE FOR DATA: [employer] 1800 OPERATION MANUAL( AUTOMATED BLOOD COUNTS AND [...] 6.4 10E3/uL 4.1-10.9 MED[facility] ([facility]) NORMAL RANGES Age WBC RBC HGB HCT [...] HCT IS 5% LESS SOURCE FOR DATA: [employer] 1800 OPERATION MANUAL( AUTOMATED BLOOD COUNTS AND [...] HCT IS 5% LESS SOURCE FOR DATA: [employer] 1800 OPERATION MANUAL( AUTOMATED BLOOD COUNTS AND [...] 2-19 YEARS EXCLUSIVE. HCT 33.2 % 37.0-51.0 [facility] ([facility]) NORMAL RANGES Age WBC RBC HGB HCT [...] HCT IS 5% LESS SOURCE FOR DATA: [employer] DYN 1800 OPERATION MANUAL( AUTOMATED BLOOD COUNTS [...] fL 80.0-97.0 MEDENT ([facility]) NORMAL RANGES Age WBC RBC HGB HCT [...] HCT IS 5% LESS SOURCE FOR DATA: [employer] 1800 OPERATION MANUAL( AUTOMATED BLOOD COUNTS AND [...] g/dL 31.0-36.0 MED[facility] ([facility]) NORMAL RANGES Age WBC RBC HGB HCT [...] HCT IS 5% LESS SOURCE FOR DATA: [employer] 1800 OPERATION MANUAL( AUTOMATED BLOOD COUNTS AND [...] pg 26.0-32.0 MED[facility] ([facility]) NORMAL RANGES Age WBC RBC HGB HCT [...] HCT IS 5% LESS SOURCE FOR DATA: [employer] DYN 1800 OPERATION MANUAL( AUTOMATED BLOOD COUNTS [...] 173 10E3/uL 140-440 MEDRENATA ([facility]) NORMAL RANGES Age WBC RBC HGB HCT [...] HCT IS 5% LESS SOURCE FOR DATA: [employer] 1800 OPERATION MANUAL( AUTOMATED BLOOD COUNTS AND [...] % 10.0-58.5 MED[facility] ([facility]) NORMAL RANGES Age WBC RBC HGB HCT [...] HCT IS 5% LESS SOURCE FOR DATA: [employer] 1800 OPERATION MANUAL( AUTOMATED BLOOD COUNTS AND [...] 16.0 % 11.5-14.5 MEDENT ([facility]) NORMAL RANGES Age WBC RBC HGB HCT [...] HCT IS 5% LESS SOURCE FOR DATA: [employer]ene 1800 OPERATION MANUAL( AUTOMATED BLOOD COUNTS AND [...] 0.6 10E3/uL 0.6-4.1 MED[facility] ([facility]) NORMAL RANGES Age WBC RBC HGB HCT [...] HCT IS 5% LESS SOURCE FOR DATA: [employer] 1800 OPERATION MANUAL( AUTOMATED BLOOD COUNTS AND [...] % 37.0-92.0 MEDENT ([facility]) NORMAL RANGES Age WBC RBC HGB HCT [...] HCT IS 5% LESS SOURCE FOR DATA: [employer] 1800 OPERATION MANUAL( AUTOMATED BLOOD COUNTS AND [...] % 0.1-24.0 MED[facility] ([facility]) NORMAL RANGES Age WBC RBC HGB HCT [...] HCT IS 5% LESS SOURCE FOR DATA: [employer] 1800 OPERATION MANUAL( AUTOMATED BLOOD COUNTS AND [...] 4.7 % 2.0-7.8 MED[facility] ([facility]) NORMAL RANGES Age WBC RBC HGB HCT [...] HCT IS 5% LESS SOURCE FOR DATA: [employer] 1800 OPERATION MANUAL( AUTOMATED BLOOD COUNTS AND [...] MXD# 1.1 10E3/uL 0.0-1.8 MED[facility] ([facility]) NORMAL RANGES Age WBC RBC HGB HCT [...] HCT IS 5% LESS SOURCE FOR DATA: [employer] 1800 OPERATION MANUAL( AUTOMATED BLOOD COUNTS AND [...] Blood by Kathy 10.5 f L 9.0-13.0 [facility]) NORMAL RANGES Age WBC RBC HGB HCT [...] HCT IS 5% LESS SOURCE FOR DATA: [employer]ene 1800 OPERATION MANUAL( AUTOMATED BLOOD COUNTS AND [...] mg/dL 70-110 MED[facility] ([facility]) NORMAL RANGES Age WBC RBC HGB HCT [...] HCT IS 5% LESS SOURCE FOR DATA: [employer] 1800 OPERATION MANUAL( AUTOMATED BLOOD COUNTS AND [...] 2-19 YEARS EXCLUSIVE. BUN 28 mg/dL 8-23 [facility] ([facility]iology [facility]) NORMAL RANGES Age WBC RBC HGB HCT [...] HCT IS 5% LESS SOURCE FOR DATA: [employer]ene 1800 OPERATION MANUAL( AUTOMATED BLOOD COUNTS AND [...] 139 mmol/L 136-145 MED[facility] ([facility]) NORMAL RANGES Age WBC RBC HGB HCT [...] HCT IS 5% LESS SOURCE FOR DATA: [employer]ene 1800 OPERATION MANUAL( AUTOMATED BLOOD COUNTS AND [...] mg/dL 0.7-1.2 MED[facility] ([facility]) NORMAL RANGES Age WBC RBC HGB HCT [...] HCT IS 5% LESS SOURCE FOR DATA: [employer]ene 1800 OPERATION MANUAL( AUTOMATED BLOOD COUNTS AND [...] Plasma 22.4 CALC MEDENT ([facility]) NORMAL RANGES Age WBC RBC HGB HCT [...] 3.8 mmol/L 3.5-5.1 MED[facility] ([facility]) NORMAL RANGES Age WBC RBC HGB HCT [...] HCT IS 5% LESS SOURCE FOR DATA: [employer]ene 1800 OPERATION MANUAL( AUTOMATED BLOOD COUNTS AND [...] mmol/L 98.0-107.0 MED[facility] ([facility]) NORMAL RANGES Age WBC RBC HGB HCT [...] HCT IS 5% LESS SOURCE FOR DATA: [employer]ene 1800 OPERATION MANUAL( AUTOMATED BLOOD COUNTS AND [...] 6.8 g/dL 6.6-8.7 MED[facility] ([facility]) NORMAL RANGES Age WBC RBC HGB HCT [...] HCT IS 5% LESS SOURCE FOR DATA: [employer]ene 1800 OPERATION MANUAL( AUTOMATED BLOOD COUNTS AND [...] 26.8 mmol/L 22.0-29.0 [facility] ([facility]) NORMAL RANGES Age WBC RBC HGB HCT [...] HCT IS 5% LESS SOURCE FOR DATA: [employer]ene 1800 OPERATION MANUAL( AUTOMATED BLOOD COUNTS AND [...] mg/dL 8.6-10.2 [facility] ([facility]) NORMAL RANGES Age WBC RBC HGB HCT [...] HCT IS 5% LESS SOURCE FOR DATA: [employer]ene 1800 OPERATION MANUAL( AUTOMATED BLOOD COUNTS AND [...] 2-19 YEARS EXCLUSIVE. Alb 3.9 g/dL 3.5-5.2 [facility] ([facility]) NORMAL RANGES Age WBC RBC HGB HCT [...] HCT IS 5% LESS SOURCE FOR DATA: [employer] DYN 1800 OPERATION MANUAL( AUTOMATED BLOOD COUNTS [...] HCT IS 5% LESS SOURCE FOR DATA: [employer]ene 1800 OPERATION MANUAL( AUTOMATED BLOOD COUNTS AND [...] U/L 40-129 [facility] ([facility]) NORMAL RANGES Age WBC RBC HGB HCT [...] HCT IS 5% LESS SOURCE FOR DATA: [employer] 1800 OPERATION MANUAL( AUTOMATED BLOOD COUNTS AND [...] Plasma 11 U/L 0-41 [facility] ([facility]) NORMAL RANGES Age WBC RBC HGB HCT [...] HCT IS 5% LESS SOURCE FOR DATA: [employer]ene 1800 OPERATION MANUAL( AUTOMATED BLOOD COUNTS AND [...] calculation 2.9 CALC MED[facility] ([facility]) NORMAL RANGES Age WBC RBC HGB HCT [...] HCT IS 5% LESS SOURCE FOR DATA: [employer]ene 1800 OPERATION MANUAL( AUTOMATED BLOOD COUNTS AND [...] Osmolality-Calculated 284.0 CALC MED[facility] ([facility]) NORMAL RANGES Age WBC RBC HGB HCT [...] HCT IS 5% LESS SOURCE FOR DATA: [employer] DYN 1800 OPERATION MANUAL( AUTOMATED BLOOD COUNTS [...] Serum or Plasma 16 U/L 0-40 [facility] ([employer] [facility]) NORMAL RANGES Age WBC RBC HGB HCT [...] HCT IS 5% LESS SOURCE FOR DATA: [employer] 1800 OPERATION MANUAL( AUTOMATED BLOOD COUNTS AND [...] 0.55 mg/dL 0.0-1.2 [facility] ([facility]) NORMAL RANGES Age WBC RBC HGB HCT [...] HCT IS 5% LESS SOURCE FOR DATA: [employer] 1800 OPERATION MANUAL( AUTOMATED BLOOD COUNTS AND [...] or Plasma 13 mmol/L [facility] ([facility]) NORMAL RANGES Age WBC RBC HGB HCT [...] HCT IS 5% LESS SOURCE FOR DATA: [employer] 1800 OPERATION MANUAL( AUTOMATED BLOOD COUNTS AND [...] 60 # MED[facility] ( [facility]) NORMAL RANGES Age WBC RBC HGB HCT [...] HCT IS 5% LESS SOURCE FOR DATA: [employer] 1800 OPERATION MANUAL( AUTOMATED BLOOD COUNTS AND [...] INDIVIDUALA AGED 2-19 YEARS EXCLUSIVE. eGFR Non-Afr. [place] 52 # [facility] ([facility]) NORMAL RANGES Age WBC RBC HGB HCT [...] HCT IS 5% LESS SOURCE FOR DATA: [employer] 1800 OPERATION MANUAL( AUTOMATED BLOOD COUNTS AND [...] 2-19 YEARS EXCLUSIVE. Chol 156 mg/dL 0-200 [facility]) NORMAL RANGES Age WBC RBC HGB HCT [...] HCT IS 5% LESS SOURCE FOR DATA: [employer] 1800 OPERATION MANUAL( AUTOMATED BLOOD COUNTS AND [...] Calc 75-129 [facility] ([facility]) NORMAL RANGES Age WBC RBC HGB HCT [...] HCT IS 5% LESS SOURCE FOR DATA: [employer] DYN 1800 OPERATION MANUAL( AUTOMATED BLOOD COUNTS [...] mg/dL 35-200 [facility] ([facility]) NORMAL RANGES Age WBC RBC HGB HCT [...] HCT IS 5% LESS SOURCE FOR DATA: [employer] 1800 OPERATION MANUAL( AUTOMATED BLOOD COUNTS AND [...] Plasma 35 mg/dL 35-55 [facility] ([facility]) NORMAL RANGES Age WBC RBC HGB HCT [...] HCT IS 5% LESS SOURCE FOR DATA: Innovacene 1800 OPERATION MANUAL( AUTOMATED BLOOD COUNTS AND [...] 4.4 Calc [facility] ([facility]) NORMAL RANGES Age WBC RBC HGB HCT [...] HCT IS 5% LESS SOURCE FOR DATA: SureSpeak DYN 1800 OPERATION MANUAL( AUTOMATED BLOOD COUNTS [...] 2-19 YEARS EXCLUSIVE. ID Date Data Source [id number] 11/07/2019 09:43:00 AM EDT MEDENT (Famil y [...] HCT IS 5% LESS SOURCE FOR DATA: Innovacene 1800 OPERATION MANUAL( AUTOMATED BLOOD COUNTS AND [...] 2-19 YEARS EXCLUSIVE. Trig 118 mg/dL 35-200 [facility] NORMAL [...] HCT IS 5% LESS SOURCE FOR DATA: Innovacene 1800 OPERATION MANUAL( AUTOMATED BLOOD COUNTS AND [...] HCT IS 5% LESS SOURCE FOR DATA: Innovacene 1800 OPERATION MANUAL( AUTOMATED BLOOD COUNTS AND [...] 2-19 YEARS EXCLUSIVE. Cho/HDL Ratio 4.4 Calc aiHit ([facility] NORMAL RANGES Age WBC [...] HCT IS 5% LESS SOURCE FOR DATA: SureSpeak DYN 1800 OPERATION MANUAL( AUTOMATED BLOOD COUNTS [...] 2-19 YEARS EXCLUSIVE. ID Date Data Source [id number] 11/07/2019 09:43:00 AM EDT MEDENT (Famil y [...] HCT IS 5% LESS SOURCE FOR DATA: Innovacene 1800 OPERATION MANUAL( AUTOMATED BLOOD COUNTS AND [...] HCT IS 5% LESS SOURCE FOR DATA: Innovacene 1800 OPERATION MANUAL( AUTOMATED BLOOD COUNTS AND [...] HCT IS 5% LESS SOURCE FOR DATA: Innovacene 1800 OPERATION MANUAL( AUTOMATED BLOOD COUNTS AND [...] HCT IS 5% LESS SOURCE FOR DATA: Innovacene 1800 OPERATION MANUAL( AUTOMATED BLOOD COUNTS AND [...] 2-19 YEARS EXCLUSIVE. BUN/Creatinine Ratio 22.4 CALC [facility] ([facility] NORMAL RANGES Age WBC RBC [...] HCT IS 5% LESS SOURCE FOR DATA: Innovacene 1800 OPERATION MANUAL( AUTOMATED BLOOD COUNTS AND [...] 2-19 YEARS EXCLUSIVE. K 3.8 mmol/L 3.5-5.1 [facility] ([facility] NORMAL [...] HCT IS 5% LESS SOURCE FOR DATA: Innovacene 1800 OPERATION MANUAL( AUTOMATED BLOOD COUNTS AND [...] HCT IS 5% LESS SOURCE FOR DATA: Innovacene 1800 OPERATION MANUAL( AUTOMATED BLOOD COUNTS AND [...] 2-19 YEARS EXCLUSIVE. Co2 26.8 mmol/L 22.0-29.0 [facility] ([facility] NORMAL RANGES Age WBC RBC HGB [...] HCT IS 5% LESS SOURCE FOR DATA: Innovacene 1800 OPERATION MANUAL( AUTOMATED BLOOD COUNTS AND [...] 2-19 YEARS EXCLUSIVE. TP 6.8 g/dL 6.6-8.7 [facility] NORMAL [...] HCT IS 5% LESS SOURCE FOR DATA: Innovacene 1800 OPERATION MANUAL( AUTOMATED BLOOD COUNTS AND [...] HCT IS 5% LESS SOURCE FOR DATA: Innovacene 1800 OPERATION MANUAL( AUTOMATED BLOOD COUNTS AND [...] 2-19 YEARS EXCLUSIVE. Alb 3.9 g/dL 3.5-5.2 [facility] NORMAL [...] HCT IS 5% LESS SOURCE FOR DATA: SureSpeak DYN 1800 OPERATION MANUAL( AUTOMATED BLOOD COUNTS [...] HCT IS 5% LESS SOURCE FOR DATA: Innovacene 1800 OPERATION MANUAL( AUTOMATED BLOOD COUNTS AND [...] HCT IS 5% LESS SOURCE FOR DATA: Innovacene 1800 OPERATION MANUAL( AUTOMATED BLOOD COUNTS AND [...] HCT IS 5% LESS SOURCE FOR DATA: SureSpeak DYN 1800 OPERATION MANUAL( AUTOMATED BLOOD COUNTS [...] YEARS EXCLUSIVE. Alt (SGPT) 11 U/L 0-41 [facility] NORMAL RANGES Age WBC RBC [...] HCT IS 5% LESS SOURCE FOR DATA: Innovacene 1800 OPERATION MANUAL( AUTOMATED BLOOD COUNTS AND [...] 2-19 YEARS EXCLUSIVE. Tbili 0.55 mg/dL 0.0-1.2 [facility] ([facility] NORMAL [...] HCT IS 5% LESS SOURCE FOR DATA: Innovacene 1800 OPERATION MANUAL( AUTOMATED BLOOD COUNTS AND [...] YEARS EXCLUSIVE. Ast (Sgot) 16 U/L 0-40 [facility] NORMAL RANGES Age WBC RBC [...] HCT IS 5% LESS SOURCE FOR DATA: SureSpeak DYN 1800 OPERATION MANUAL( AUTOMATED BLOOD COUNTS [...] HCT IS 5% LESS SOURCE FOR DATA: Innovacene 1800 OPERATION MANUAL( AUTOMATED BLOOD COUNTS AND [...] HCT IS 5% LESS SOURCE FOR DATA: Innovacene 1800 OPERATION MANUAL( AUTOMATED BLOOD COUNTS AND [...] HCT IS 5% LESS SOURCE FOR DATA: SureSpeak DYN 1800 OPERATION MANUAL( AUTOMATED BLOOD COUNTS [...] INDIVIDUALA AGED 2-19 YEARS EXCLUSIVE. eGFR Non-Afr. [place] 52 # [facility] ([facility] [...] HCT IS 5% LESS SOURCE FOR DATA: Innovacene 1800 OPERATION MANUAL( AUTOMATED BLOOD COUNTS AND [...] 2-19 YEARS EXCLUSIVE. ID Date Data Source [id number] 11/07/2019 09:43:00 AM EDT MEDENT ([facility] Name Value Range Interpretation Code Description Data Annette rce(s) Supporting Document(s) WBC 6.4 10E3/uL 4.1-10.9 MED[facility] ([facility] NORMAL RANGES Age WBC RBC [...] HCT IS 5% LESS SOURCE FOR DATA: Innovacene 1800 OPERATION MANUAL( AUTOMATED BLOOD COUNTS AND [...] RBC 3.35 10E6/uL 4.20-6.30 Below low normal [facility] ([facility] NORMAL RANGES [...] HCT IS 5% LESS SOURCE FOR DATA: Innovacene 1800 OPERATION MANUAL( AUTOMATED BLOOD COUNTS AND [...] HCT IS 5% LESS SOURCE FOR DATA: Innovacene 1800 OPERATION MANUAL( AUTOMATED BLOOD COUNTS AND [...] HCT 33.2 % 37.0-51.0 Below low normal [facility] ( [facility] NORMAL RANGES [...] HCT IS 5% LESS SOURCE FOR DATA: Innovacene 1800 OPERATION MANUAL( AUTOMATED BLOOD COUNTS AND [...] MCV 99.1 fL 80.0-97.0 Above high normal [facility] ([facility] NORMAL RANGES [...] HCT IS 5% LESS SOURCE FOR DATA: Innovacene 1800 OPERATION MANUAL( AUTOMATED BLOOD COUNTS AND [...] HCT IS 5% LESS SOURCE FOR DATA: Innovacene 1800 OPERATION MANUAL( AUTOMATED BLOOD COUNTS AND [...] 2-19 YEARS EXCLUSIVE. MCHC 33.7 g/dL 31.0-36.0 [facility] NORMAL [...] RDW-CV 16.0 % 11.5-14.5 Above high normal [facility] ([facility] NORMAL RANGES [...] HCT IS 5% LESS SOURCE FOR DATA: Innovacene 1800 OPERATION MANUAL( AUTOMATED BLOOD COUNTS AND [...] 2-19 YEARS EXCLUSIVE. PLT 173 10E3/uL 140-440 [facility] ([facility] NORMAL RANGES Age WBC [...] HCT IS 5% LESS SOURCE FOR DATA: Innovacene 1800 OPERATION MANUAL( AUTOMATED BLOOD COUNTS AND [...] 2-19 YEARS EXCLUSIVE. MXD% 17.8 % 0.1-24.0 [facility] NORMAL [...] HCT IS 5% LESS SOURCE FOR DATA: Innovacene 1800 OPERATION MANUAL( AUTOMATED BLOOD COUNTS AND [...] HCT IS 5% LESS SOURCE FOR DATA: Innovacene 1800 OPERATION MANUAL( AUTOMATED BLOOD COUNTS AND [...] Lym% 9.1 % 10.0-58.5 Below low normal [facility] ( [facility] NORMAL RANGES Age WBC [...] HCT IS 5% LESS SOURCE FOR DATA: Innovacene 1800 OPERATION MANUAL( AUTOMATED BLOOD COUNTS AND [...] 2-19 YEARS EXCLUSIVE. Lym# 0.6 10E3/uL 0.6-4.1 [facility] NORMAL RANGES Age WBC RBC HGB [...] HCT IS 5% LESS SOURCE FOR DATA: Innovacene 1800 OPERATION MANUAL( AUTOMATED BLOOD COUNTS AND [...] 2-19 YEARS EXCLUSIVE. Neut# 4.7 % 2.0-7.8 [facility] ([facility] NORMAL [...] HCT IS 5% LESS SOURCE FOR DATA: Innovacene 1800 OPERATION MANUAL( AUTOMATED BLOOD COUNTS AND [...] YEARS EXCLUSIVE. MXD# 1.1 10E3/uL 0.0-1.8 LILLIAN ([facility] NORMAL RANGES Age WBC [...] HCT IS 5% LESS SOURCE FOR DATA: Innovacene 1800 OPERATION MANUAL( AUTOMATED BLOOD COUNTS AND [...] 2-19 YEARS EXCLUSIVE. MPV 10.5 fL 9.0-13.0 [facility] ([facility] NORMAL RANGES [...] HCT IS 5% LESS SOURCE FOR DATA: SureSpeak DYN 1800 OPERATION MANUAL( AUTOMATED BLOOD COUNTS [...] 2-19 YEARS EXCLUSIVE. ID Date Data Source [id number] 10/27/2019 09:17:00 AM EDT [facility] ([facility]) Name Value Range Interpretation Code Description Data Annette rce(s) Supporting Document(s) Prothrombin Time 30.3 s 11.8-14.0 MEDENT ([facility]) Inr 2.91 MED[facility] ([facility]iology [facility] [place]) THERAPUTIC HUMAN INR VALUES INDICATIONS NORMAL RANGES PROPHYLAXIS/TREATMENT OF: VENOUS THROMBOSIS 2.0-3.0 PULMONARY EMBOLISM 2.0-3.0 PREVENTION OF SYSTEMIC EMBOLISM FROM: TISSUE HEART VALVES 2.0-3.0 ACUTE MYOCARDIAL INFARCTION 2.0-3.0 VALVULAR HEART DISEASE 2.0-3.0 ATRIAL FIBRILLATION 2.0-3.0 MECHANICAL VALVES(HIGH RISK) 2.5-3.5 RECURRENT MYOCARDIAL INFARCTION 2.5-3.5 ID Date Data Source [id number] 10/27/2019 09:17:00 AM EDT MEDENT ([facility] Name Value Range Interpretation Code Description Data Annette rce(s) Supporting Document(s) Prothrombin Time 30.3 s 11.8-14.0 Above high normal M EDENT ([facility] Inr 2.91 Normal (applies to non-numeric resul ts) [facility] ([facility] THERAPUTIC HUMAN INR VALUES INDICATIONS NORMAL RANGES PROPHYLAXIS/TREATMENT OF: VENOUS THROMBOSIS 2.0-3.0 PULMONARY EMBOLISM 2.0-3.0 PREVENTION OF SYSTEMIC EMBOLISM FROM: TISSUE HEART VALVES 2.0-3.0 ACUTE MYOCARDIAL INFARCTION 2.0-3.0 VALVULAR HEART DISEASE 2.0-3.0 ATRIAL FIBRILLATION 2.0-3.0 MECHANICAL VALVES(HIGH RISK) 2.5-3.5 RECURRENT MYOCARDIAL INFARCTION 2.5-3.5 ID Date Data Source [id number] 10/20/2019 08:58:00 AM EDT MEDENT ([facility]) Name Value Range Interpretation Code Description Data Annette rce(s) Supporting Document(s) Prothrombin Time 24.8 s 11.8-14.0 MED[facility] ([facility]) Inr 2.26 [facility] THERAPUTIC HUMAN INR VALUES INDICATIONS NORMAL RANGES PROPHYLAXIS/TREATMENT OF: VENOUS THROMBOSIS 2.0-3.0 PULMONARY EMBOLISM 2.0-3.0 PREVENTION OF SYSTEMIC EMBOLISM FROM: TISSUE HEART VALVES 2.0-3.0 ACUTE MYOCARDIAL INFARCTION 2.0-3.0 VALVULAR HEART DISEASE 2.0-3.0 ATRIAL FIBRILLATION 2.0-3.0 MECHANICAL VALVES(HIGH RISK) 2.5-3.5 RECURRENT MYOCARDIAL INFARCTION 2.5-3.5 ID Date Data Source [id number] 10/20/2019 08:58:00 AM EDT MED[facility] ([facility] Name Value Range Interpretation Code Description Data Annette rce(s) Supporting Document(s) Inr 2.26 Normal (applies to non-numeric resul ts) [facility] ([facility] THERAPUTIC HUMAN INR VALUES INDICATIONS NORMAL RANGES PROPHYLAXIS/TREATMENT OF: VENOUS THROMBOSIS 2.0-3.0 PULMONARY EMBOLISM 2.0-3.0 PREVENTION OF SYSTEMIC EMBOLISM FROM: TISSUE HEART VALVES 2.0-3.0 ACUTE MYOCARDIAL INFARCTION 2.0-3.0 VALVULAR HEART DISEASE 2.0-3.0 ATRIAL FIBRILLATION 2.0-3.0 MECHANICAL VALVES(HIGH RISK) 2.5-3.5 RECURRENT MYOCARDIAL INFARCTION 2.5-3.5 Prothrombin Time 24.8 s 11.8-14.0 Above high normal M EDENT ([facility] ID Date Data Source [id number] 10/14/2019 09:55:00 AM EDT MEDENT ([facility] Name Value Range Interpretation Code Description Data Annette rce(s) Supporting Document(s) Prothrombin Time 48.7 s 11.8-14.0 Above high normal M EDENT ([facility] Inr 5.26 Above upper panic limits MED[facility] ([facility] THERAPUTIC HUMAN INR VALUES INDICATIONS NORMAL RANGES PROPHYLAXIS/TREATMENT OF: VENOUS THROMBOSIS 2.0-3.0 PULMONARY EMBOLISM 2.0-3.0 PREVENTION OF SYSTEMIC EMBOLISM FROM: TISSUE HEART VALVES 2.0-3.0 ACUTE MYOCARDIAL INFARCTION 2.0-3.0 VALVULAR HEART DISEASE 2.0-3.0 ATRIAL FIBRILLATION 2.0-3.0 MECHANICAL VALVES(HIGH RISK) 2.5-3.5 RECURRENT MYOCARDIAL INFARCTION 2.5-3.5 ID Date Data Source [id number] 10/14/2019 09:55:00 AM EDT [facility] ([facility]) Name Value Range Interpretation Code Description Data Annette rce(s) Supporting Document(s) Prothrombin Time 48.7 s 11.8-14.0 MEDENT (Cardi ology Associates [facility]) Inr 5.26 Above upper panic limits MEDEN T ([facility]) THERAPUTIC HUMAN INR VALUES INDICATIONS NORMAL RANGES PROPHYLAXIS/TREATMENT OF: VENOUS THROMBOSIS 2.0-3.0 PULMONARY EMBOLISM 2.0-3.0 PREVENTION OF SYSTEMIC EMBOLISM FROM: TISSUE HEART VALVES 2.0-3.0 ACUTE MYOCARDIAL INFARCTION 2.0-3.0 VALVULAR HEART DISEASE 2.0-3.0 ATRIAL FIBRILLATION 2.0-3.0 MECHANICAL VALVES(HIGH RISK) 2.5-3.5 RECURRENT MYOCARDIAL INFARCTION 2.5-3.5 ID Date Data Source [id number] 09/29/2019 10:58:00 AM EDT MEDENT ([facility] Name Value Range Interpretation Code Description Data Annette rce(s) Supporting Document(s) Prothrombin Time 41.0 s 11.8-14.0 Above high normal M EDENT ([facility] Inr 4.24 Normal (applies to non-numeric resul ts) [facility] ([facility] THERAPUTIC HUMAN INR VALUES INDICATIONS NORMAL RANGES PROPHYLAXIS/TREATMENT OF: VENOUS THROMBOSIS 2.0-3.0 PULMONARY EMBOLISM 2.0-3.0 PREVENTION OF SYSTEMIC EMBOLISM FROM: TISSUE HEART VALVES 2.0-3.0 ACUTE MYOCARDIAL INFARCTION 2.0-3.0 VALVULAR HEART DISEASE 2.0-3.0 ATRIAL FIBRILLATION 2.0-3.0 MECHANICAL VALVES(HIGH RISK) 2.5-3.5 RECURRENT MYOCARDIAL INFARCTION 2.5-3.5 ID Date Data Source [id number] 09/29/2019 10:58:00 AM EDT [facility] Name Value Range Interpretation Code Description Data Annette rce(s) Supporting Document(s) Prothrombin Time 41.0 s 11.8-14.0 MEDENT (Cardi ology Associates [facility]) Inr 4.24 [facility] ([facility] THERAPUTIC HUMAN INR VALUES INDICATIONS NORMAL RANGES PROPHYLAXIS/TREATMENT OF: VENOUS THROMBOSIS 2.0-3.0 PULMONARY EMBOLISM 2.0-3.0 PREVENTION OF SYSTEMIC EMBOLISM FROM: TISSUE HEART VALVES 2.0-3.0 ACUTE MYOCARDIAL INFARCTION 2.0-3.0 VALVULAR HEART DISEASE 2.0-3.0 ATRIAL FIBRILLATION 2.0-3.0 MECHANICAL VALVES(HIGH RISK) 2.5-3.5 RECURRENT MYOCARDIAL INFARCTION 2.5-3.5 ID Date Data Source [id number] 09/04/2019 03:40:00 PM EDT MED[facility] ([facility]i [facility]y [facility]) Name Value Range Interpretation Code Description Data Annette rce(s) Supporting Document(s) Magnesium Level 2.17 [facility] ([facility] [place]) ID Date Data Source [id number] 09/04/2019 03:40:00 PM EDT MED[facility] ([facility]i [facility]y [facility]) Name Value Range Interpretation Code Description Data Annette rce(s) Supporting Document(s) White Blood Count 8.1 4.3-10.9 MED[facility] (Card iology [facility]) Hemoglobin 12.8 13.0-17.0 [facility] ([facility]) Platelets 256 130-400 [facility] (Cardiology A [facility] of [facility]) Red Blood Count 3.93 4.70-6.20 [facility] ([facility]io [facility]y [facility]) Hematocrit 38.3 39.0-50.0 [facility] ([facility] [place]) ID Date Data Source [id number] 09/04/2019 03:40:00 PM EDT MED[facility] ([facility]i [facility]y [facility]) Name Value Range Interpretation Code Description Data Annette rce(s) Supporting Document(s) Blood Urea Nitrogen 26.1 5-21 MED[facility] (Ca rdiology [facility]) Glucose 108 70-100 MEDENT (Cardiology A ssociates [...] 32.8 20-32 [facility] ([facility]iol [facility]gy [facility]) Phosphorus 2.83 [facility] ([facility] [place]) Calcium 8.15 8.4-10.4 [facility] ([facility] [place]) Albumin 3.9 3.5-4.7 [facility] ([facility] [place]) ID Date Data Source [id number] 09/03/2019 09:35:00 AM EDT MEDENT ([facility] Name Value Range Interpretation Code Description Data Annette rce(s) Supporting Document(s) Prothrombin Time 29.0 s 11.8-14.0 Above high normal M EDENT ([facility] Inr 2.75 Normal (applies to non-numeric resul ts) [facility] ([facility] THERAPUTIC HUMAN INR VALUES INDICATIONS NORMAL RANGES PROPHYLAXIS/TREATMENT OF: VENOUS THROMBOSIS 2.0-3.0 PULMONARY EMBOLISM 2.0-3.0 PREVENTION OF SYSTEMIC EMBOLISM FROM: TISSUE HEART VALVES 2.0-3.0 ACUTE MYOCARDIAL INFARCTION 2.0-3.0 VALVULAR HEART DISEASE 2.0-3.0 ATRIAL FIBRILLATION 2.0-3.0 MECHANICAL VALVES(HIGH RISK) 2.5-3.5 RECURRENT MYOCARDIAL INFARCTION 2.5-3.5 ID Date Data Source [id number] 09/03/2019 09:35:00 AM EDT MED[facility] ([facility]) Name Value Range Interpretation Code Description Data Annette rce(s) Supporting Document(s) Prothrombin Time 29.0 s 11.8-14.0 [facility] ([facility]) Inr 2.75 MED[facility] ([facility]iology [facility] [place]) THERAPUTIC HUMAN INR VALUES INDICATIONS NORMAL RANGES PROPHYLAXIS/TREATMENT OF: VENOUS THROMBOSIS 2.0-3.0 PULMONARY EMBOLISM 2.0-3.0 PREVENTION OF SYSTEMIC EMBOLISM FROM: TISSUE HEART VALVES 2.0-3.0 ACUTE MYOCARDIAL INFARCTION 2.0-3.0 VALVULAR HEART DISEASE 2.0-3.0 ATRIAL FIBRILLATION 2.0-3.0 MECHANICAL VALVES(HIGH RISK) 2.5-3.5 RECURRENT MYOCARDIAL INFARCTION 2.5-3.5 ID Date Data Source [id number] 08/21/2019 09:15:00 AM EDT MED[facility] ([facility] Name Value Range Interpretation Code Description Data Annette rce(s) Supporting Document(s) Inr 2.26 Normal (applies to non-numeric resul ts) [facility] ([facility] THERAPUTIC HUMAN INR VALUES INDICATIONS NORMAL RANGES PROPHYLAXIS/TREATMENT OF: VENOUS THROMBOSIS 2.0-3.0 PULMONARY EMBOLISM 2.0-3.0 PREVENTION OF SYSTEMIC EMBOLISM FROM: TISSUE HEART VALVES 2.0-3.0 ACUTE MYOCARDIAL INFARCTION 2.0-3.0 VALVULAR HEART DISEASE 2.0-3.0 ATRIAL FIBRILLATION 2.0-3.0 MECHANICAL VALVES(HIGH RISK) 2.5-3.5 RECURRENT MYOCARDIAL INFARCTION 2.5-3.5 Prothrombin Time 24.7 s 11.8-14.0 Above high normal M EDENT ([facility] ID Date Data Source [id number] 08/21/2019 09:15:00 AM EDT MED[facility] ([facility]) Name Value Range Interpretation Code Description Data Annette rce(s) Supporting Document(s) Prothrombin Time 24.7 s 11.8-14.0 [facility] ([facility]) Inr 2.26 MED[facility] ([facility]iology [facility] [place]) THERAPUTIC HUMAN INR VALUES INDICATIONS NORMAL RANGES PROPHYLAXIS/TREATMENT OF: VENOUS THROMBOSIS 2.0-3.0 PULMONARY EMBOLISM 2.0-3.0 PREVENTION OF SYSTEMIC EMBOLISM FROM: TISSUE HEART VALVES 2.0-3.0 ACUTE MYOCARDIAL INFARCTION 2.0-3.0 VALVULAR HEART DISEASE 2.0-3.0 ATRIAL FIBRILLATION 2.0-3.0 MECHANICAL VALVES(HIGH RISK) 2.5-3.5 RECURRENT MYOCARDIAL INFARCTION 2.5-3.5 ID Date Data Source [id number] 08/06/2019 02:57:00 PM EDT MED[facility] ([facility] Name Value Range Interpretation Code Description Data Annette rce(s) Supporting Document(s) WBC 7.7 10E3/uL 4.1-10.9 MED[facility] ([facility] CLASSIFICATION CHOLESTEROL FO R [...] RBC 3.88 10E6/uL 4.20-6.30 Below low normal [facility] ([facility] CLASSIFICATION CHOLESTEROL FO [...] HCT IS 5% LESS SOURCE FOR DATA: Innovacene 1800 OPERATION MANUAL( AUTOMATED BLOOD COUNTS AND [...] APPENDIX B-3 HGB 12.5 g/dL 12.0-18.0 [facility] CLASSIFICATION CHOLESTEROL FO [...] HCT IS 5% LESS SOURCE FOR DATA: Innovacene 1800 OPERATION MANUAL( AUTOMATED BLOOD COUNTS AND [...] HCT IS 5% LESS SOURCE FOR DATA: SureSpeak DYN 1800 OPERATION MANUAL( AUTOMATED BLOOD COUNTS [...] DIFF.) APPENDIX B-3 PLT 165 10E3/uL 140-440 [facility] CLASSIFICATION CHOLESTEROL FO R [...] HCT IS 5% LESS SOURCE FOR DATA: Innovacene 1800 OPERATION MANUAL( AUTOMATED BLOOD COUNTS AND DIFF.) APPENDIX B-3 RDW-CV 13.9 % 11.5-14.5 [facility] CLASSIFICATION CHOLESTEROL FO [...] HCT IS 5% LESS SOURCE FOR DATA: Innovacene 1800 OPERATION MANUAL( AUTOMATED BLOOD COUNTS AND [...] HCT IS 5% LESS SOURCE FOR DATA: Innovacene 1800 OPERATION MANUAL( AUTOMATED BLOOD COUNTS AND DIFF.) APPENDIX B-3 Lym% 10.4 % 10.0-58.5 [facility] CLASSIFICATION CHOLESTEROL FO R [...] HCT IS 5% LESS SOURCE FOR DATA: Innovacene 1800 OPERATION MANUAL( AUTOMATED BLOOD COUNTS AND DIFF.) APPENDIX B-3 Neut% 76.3 % 37.0-92.0 [facility] CLASSIFICATION CHOLESTEROL FO [...] DIFF.) APPENDIX B-3 Lym# 0.8 10E3/uL 0.6-4.1 [facility] ([facility] CLASSIFICATION CHOLESTEROL FO R [...] HCT IS 5% LESS SOURCE FOR DATA: SureSpeak DYN 1800 OPERATION MANUAL( AUTOMATED BLOOD COUNTS AND DIFF.) APPENDIX B-3 Neut# 5.9 % 2.0-7.8 [facility] CLASSIFICATION CHOLESTEROL FO [...] HCT IS 5% LESS SOURCE FOR DATA: Innov[employer]ene 1800 OPERATION MANUAL( AUTOMATED BLOOD COUNTS AND DIFF.) APPENDIX B-3 MXD# 1.0 10E3/uL 0.0-1.8 [facility] CLASSIFICATION CHOLESTEROL FO R [...] DIFF.) APPENDIX B-3 MPV 11.5 fL 9.0-13.0 [facility] ([facility] CLASSIFICATION CHOLESTEROL FO [...] HCT IS 5% LESS SOURCE FOR DATA: Innov[employer]ene 1800 OPERATION MANUAL( AUTOMATED BLOOD COUNTS AND DIFF.) APPENDIX B-3 ID Date Data Source [id number] 08/06/2019 02:57:00 PM EDT MED[facility] ([facility] Name Value Range [...] HCT IS 5% LESS SOURCE FOR DATA: SureSpeak DYN 1800 OPERATION MANUAL( AUTOMATED BLOOD COUNTS AND DIFF.) APPENDIX B-3 Cho/HDL Ratio 4.8 CALC MED[facility] ([facility] CLASSIFICATION CHOLESTEROL FO R [...] HCT IS 5% LESS SOURCE FOR DATA: SureSpeak DYN 1800 OPERATION MANUAL( AUTOMATED BLOOD COUNTS AND DIFF.) APPENDIX B-3 LDL_C 106 Calc 75-129 [facility] CLASSIFICATION CHOLESTEROL FO [...] HCT IS 5% LESS SOURCE FOR DATA: Innov[employer]ene 1800 OPERATION MANUAL( AUTOMATED BLOOD COUNTS AND [...] HCT IS 5% LESS SOURCE FOR DATA: [employer]ene 1800 OPERATION MANUAL( AUTOMATED BLOOD COUNTS AND DIFF.) APPENDIX B-3 ID Date Data Source [id number] 08/06/2019 02:57:00 PM EDT MEDENT (Famil y [...] Creat 1.4 mg/dL 0.7-1.2 Above high normal [facility] CLASSIFICATION CHOLESTEROL [...] HCT IS 5% LESS SOURCE FOR DATA: [employer] 1800 OPERATION MANUAL( AUTOMATED BLOOD COUNTS AND DIFF.) APPENDIX B-3 K 4.5 mmol/L 3.5-5.1 [facility] CLASSIFICATION CHOLESTEROL FO R ADULTS [...] HCT IS 5% LESS SOURCE FOR DATA: [employer] DYN 1800 OPERATION MANUAL( AUTOMATED BLOOD COUNTS AND DIFF.) APPENDIX B-3 BUN/Creatinine Ratio 25.6 CALC [facility] ([facility] CLASSIFICATION CHOLESTEROL FO [...] DIFF.) APPENDIX B-3 Na 139 mmol/L 136-145 [facility] CLASSIFICATION CHOLESTEROL FO R ADULTS [...] HCT IS 5% LESS SOURCE FOR DATA: [employer] 1800 OPERATION MANUAL( AUTOMATED BLOOD COUNTS AND [...] APPENDIX B-3 Co2 24.5 mmol/L 22.0-29.0 MEDENT ([facility] CLASSIFICATION CHOLESTEROL FO R [...] DIFF.) APPENDIX B-3 CL 101.9 mmol/L 98.0-107.0 [facility] ([facility] CLASSIFICATION CHOLESTEROL FO R ADULTS CHILDREN/ADOLESCENTS* [...] DIFF.) APPENDIX B-3 TP 7.0 g/dL 6.6-8.7 [facility] CLASSIFICATION [...] HCT IS 5% LESS SOURCE FOR DATA: Innovacene 1800 OPERATION MANUAL( AUTOMATED BLOOD COUNTS AND [...] HCT IS 5% LESS SOURCE FOR DATA: SureSpeak DYN 1800 OPERATION MANUAL( AUTOMATED BLOOD COUNTS AND DIFF.) APPENDIX B-3 A/G Ratio 1.4 CALC MEDENT ([facility] CLASSIFICATION CHOLESTEROL FO R [...] HCT IS 5% LESS SOURCE FOR DATA: SureSpeak DYN 1800 OPERATION MANUAL( AUTOMATED BLOOD COUNTS AND DIFF.) APPENDIX B-3 Globulin 2.9 CALC MEDENT ([facility] CLASSIFICATION CHOLESTEROL FO [...] APPENDIX B-3 Alp 74.9 U/L 40-129 [facility] ([facility] CLASSIFICATION CHOLESTEROL FO [...] APPENDIX B-3 Alt (SGPT) 10 U/L 0-41 [facility] ([facility] CLASSIFICATION CHOLESTEROL FO R ADULTS [...] HCT IS 5% LESS SOURCE FOR DATA: Innovacene 1800 OPERATION MANUAL( AUTOMATED BLOOD COUNTS AND [...] APPENDIX B-3 Ast (Sgot) 16 U/L 0-40 [facility] CLASSIFICATION CHOLESTEROL FO R ADULTS [...] HCT IS 5% LESS SOURCE FOR DATA: Innovacene 1800 OPERATION MANUAL( AUTOMATED BLOOD COUNTS AND DIFF.) APPENDIX B-3 Tbili 0.39 mg/dL 0.0-1.2 MEDENT ([facility] CLASSIFICATION CHOLESTEROL FO R ADULTS [...] DIFF.) APPENDIX B-3 Anion Gap 18 mmol/L [facility] CLASSIFICATION [...] HCT IS 5% LESS SOURCE FOR DATA: SureSpeak DYN 1800 OPERATION MANUAL( AUTOMATED BLOOD COUNTS [...] HCT IS 5% LESS SOURCE FOR DATA: Innovacene 1800 OPERATION MANUAL( AUTOMATED BLOOD COUNTS AND DIFF.) APPENDIX B-3 eGFR Non-Afr. Tu[place] 47 # MEDENT ([facility] [...] DIFF.) APPENDIX B-3 ID Date Data Source [id number] 07/16/2019 10:56:00 AM EDT LILLIAN ([facility]) Name Value Range Interpretation Code Description Data Annette rce(s) Supporting Document(s) Inr 2.71 DIMITRYENT (Cardiology A ssociates of [facility]) THERAPUTIC HUMAN INR VALUES INDICATIONS NORMAL RANGES PROPHYLAXIS/TREATMENT OF: VENOUS THROMBOSIS 2.0-3.0 PULMONARY EMBOLISM 2.0-3.0 PREVENTION OF SYSTEMIC EMBOLISM FROM: TISSUE HEART VALVES 2.0-3.0 ACUTE MYOCARDIAL INFARCTION 2.0-3.0 VALVULAR HEART DISEASE 2.0-3.0 ATRIAL FIBRILLATION 2.0-3.0 MECHANICAL VALVES(HIGH RISK) 2.5-3.5 RECURRENT MYOCARDIAL INFARCTION 2.5-3.5 Prothrombin Time 28.6 s 11.8-14.0 MEDENT ([facility]) ID Date Data Source [id number] 07/16/2019 10:56:00 AM EDT MEDENT ([facility] Name Value Range Interpretation Code Description Data Annette rce(s) Supporting Document(s) Prothrombin Time 28.6 s 11.8-14.0 Above high normal M EDENT ([facility] Inr 2.71 Normal (applies to non-numeric resul ts) MEDENT ([facility] THERAPUTIC HUMAN INR VALUES INDICATIONS NORMAL RANGES PROPHYLAXIS/TREATMENT OF: VENOUS THROMBOSIS 2.0-3.0 PULMONARY EMBOLISM 2.0-3.0 PREVENTION OF SYSTEMIC EMBOLISM FROM: TISSUE HEART VALVES 2.0-3.0 ACUTE MYOCARDIAL INFARCTION 2.0-3.0 VALVULAR HEART DISEASE 2.0-3.0 ATRIAL FIBRILLATION 2.0-3.0 MECHANICAL VALVES(HIGH RISK) 2.5-3.5 RECURRENT MYOCARDIAL INFARCTION 2.5-3.5 ID Date Data Source [id number] 06/23/2019 07:50:00 AM EST MEDENT ([facility]) Name Value Range Interpretation Code Description Data Annette rce(s) Supporting Document(s) Inr 2.62 MEDENT (Cardiology [facility]) THERAPUTIC HUMAN INR VALUES INDICATIONS NORMAL RANGES PROPHYLAXIS/TREATMENT OF: VENOUS THROMBOSIS 2.0-3.0 PULMONARY EMBOLISM 2.0-3.0 PREVENTION OF SYSTEMIC EMBOLISM FROM: TISSUE HEART VALVES 2.0-3.0 ACUTE MYOCARDIAL INFARCTION 2.0-3.0 VALVULAR HEART DISEASE 2.0-3.0 ATRIAL FIBRILLATION 2.0-3.0 MECHANICAL VALVES(HIGH RISK) 2.5-3.5 RECURRENT MYOCARDIAL INFARCTION 2.5-3.5 Prothrombin Time 27.9 s 11.8-14.0 [facility] ([facility]) ID Date Data Source [id number] 05/27/2019 08:42:00 AM EST MEDENT ([facility]) Name Value Range Interpretation Code Description Data Annette rce(s) Supporting Document(s) Prothrombin Time 34.0 s 11.8-14.0 [facility] Inr 3.36 MEDENT ([facility] [place]) THERAPUTIC HUMAN INR VALUES INDICATIONS NORMAL RANGES PROPHYLAXIS/TREATMENT OF: VENOUS THROMBOSIS 2.0-3.0 PULMONARY EMBOLISM 2.0-3.0 PREVENTION OF SYSTEMIC EMBOLISM FROM: TISSUE HEART VALVES 2.0-3.0 ACUTE MYOCARDIAL INFARCTION 2.0-3.0 VALVULAR HEART DISEASE 2.0-3.0 ATRIAL FIBRILLATION 2.0-3.0 MECHANICAL VALVES(HIGH RISK) 2.5-3.5 RECURRENT MYOCARDIAL INFARCTION 2.5-3.5 ID Date Data Source [id number] 05/06/2019 11:09:00 AM EST [facility] ([facility]) Name Value Range Interpretation Code Description Data Annette rce(s) Supporting Document(s) Magnesium Level 2.25 MED[facility] ([facility]) ID Date Data Source [id number] 05/06/2019 11:09:00 AM EST [facility] ([facility] Name Value Range Interpretation Code Description Data Annette rce(s) Supporting Document(s) White Blood Count 7.4 5.0-10.0 MEDENT ([facility]) Red Blood Count 3.73 4.70-6.10 MEDENT (Cardio logy [facility]) Platelets 231 172-450 MEDENT ([facility]) Hematocrit 37.0 42.0-52.0 MEDENT (Cardiology [facility]) Hemoglobin 12.0 14.0-18.0 MEDENT (Cardiology [facility]) ID Date Data Source [id number] 05/06/2019 11:09:00 AM EST [facility] ([facility] Name Value Range Interpretation Code Description Data Annette rce(s) Supporting Document(s) Glucose 111 70-100 MEDENT ([facility]iology [facility]) Blood Urea Nitrogen 27.9 5-21 MEDENT ([facility]) Sodium 140.3 136-146 MEDENT ([facility]iology [facility]) Glomerular filtration rate/1.73 sq M.pre dicted [Volume Rate/Area] in Serum or Plasma by Creatinine-based formula (MDRD) 51 MEDENT ([address] [facility]) Creatinine 1.34 0.6-1.5 MEDENT (Cardiology [facility]) Chloride 100.4 98-110 MED[facility] ([facility]) Potassium 3.85 3.5-5.3 MEDENT ([facility]) Carbon Dioxide 31.8 20-32 MEDENT (Cardiol ogy [facility]) Albumin 4.2 3.5-4.7 MEDENT ([facility]iology [facility]) Phosphorus 3.12 MEDENT (Cardiology [facility]) Calcium 9.49 8.4-10.4 MEDENT ([facility]iology [facility]) ID Date Data Source [id number] 05/06/2019 07:48:00 AM EST MED[facility] ([facility] Name Value Range Interpretation Code Description Data Annette rce(s) Supporting Document(s) Prothrombin Time 34.7 s 11.8-14.0 [facility] [place] Inr 3.44 MED[facility] ([facility]) THERAPUTIC HUMAN INR VALUES INDICATIONS NORMAL RANGES PROPHYLAXIS/TREATMENT OF: VENOUS THROMBOSIS 2.0-3.0 PULMONARY EMBOLISM 2.0-3.0 PREVENTION OF SYSTEMIC EMBOLISM FROM: TISSUE HEART VALVES 2.0-3.0 ACUTE MYOCARDIAL INFARCTION 2.0-3.0 VALVULAR HEART DISEASE 2.0-3.0 ATRIAL FIBRILLATION 2.0-3.0 MECHANICAL VALVES(HIGH RISK) 2.5-3.5 RECURRENT MYOCARDIAL INFARCTION 2.5-3.5 ID Date Data Source [id number] 04/29/2019 08:11:00 AM EST MED[facility] ([facility] Name Value Range Interpretation Code Description Data Annette rce(s) Supporting Document(s) Prothrombin Time 40.7 s 11.8-14.0 [facility] [place] Inr 4.20 MED[facility] ([facility]) THERAPUTIC HUMAN INR VALUES INDICATIONS NORMAL RANGES PROPHYLAXIS/TREATMENT OF: VENOUS THROMBOSIS 2.0-3.0 PULMONARY EMBOLISM 2.0-3.0 PREVENTION OF SYSTEMIC EMBOLISM FROM: TISSUE HEART VALVES 2.0-3.0 ACUTE MYOCARDIAL INFARCTION 2.0-3.0 VALVULAR HEART DISEASE 2.0-3.0 ATRIAL FIBRILLATION 2.0-3.0 MECHANICAL VALVES(HIGH RISK) 2.5-3.5 RECURRENT MYOCARDIAL INFARCTION 2.5-3.5 ID Date Data Source [id number] 04/29/2019 08:11:00 AM EST MEDENT ([facility] Name Value Range Interpretation Code Description Data Annette rce(s) Supporting Document(s) Inr 4.20 Normal (applies to non-numeric resul ts) MEDENT ([facility] THERAPUTIC HUMAN INR VALUES INDICATIONS NORMAL RANGES PROPHYLAXIS/TREATMENT OF: VENOUS THROMBOSIS 2.0-3.0 PULMONARY EMBOLISM 2.0-3.0 PREVENTION OF SYSTEMIC EMBOLISM FROM: TISSUE HEART VALVES 2.0-3.0 ACUTE MYOCARDIAL INFARCTION 2.0-3.0 VALVULAR HEART DISEASE 2.0-3.0 ATRIAL FIBRILLATION 2.0-3.0 MECHANICAL VALVES(HIGH RISK) 2.5-3.5 RECURRENT MYOCARDIAL INFARCTION 2.5-3.5 Prothrombin Time 40.7 s 11.8-14.0 Above high normal M EDRENATA ([facility] Procedure Social History Code Duration Value Status Description Data Source(s ) Smoking 02/05/2020 12:00:00 AM EDT Patient is a former smoker completed Patient is a former smoker MEDENT ([facility]) Vital Signs ID Date Data Source [id number] Name Value Range Interpretation Code Description Data Source(s) Oxygen saturation in Arterial blood by Pulse oximetry 97 % 97 % MEDENT ([facility] A[place]or body weight 178 [lb_av] 178 [lb_av] MEDEN T ([facility] Body height 72 [in_i] 72 [in_i] MEDENT ([facility] 6'0" Respiratory rate 18 /min 18 /min MEDRENATA ( [facility] Heart rate 64 /min 64 /min MEDRENATA ([facility] Body temperature 97.9 [degF] 97.9 [degF] MEDENT ([facility] Diastolic blood pressure 66 mm[Hg] 66 mm[Hg] MED[facility] ([facility] Systolic blood pressure 122 mm[Hg] 122 mm[Hg] M EDENT ([facility] Oxygen saturation in Arterial blood by Pulse oximetry 97 % 97 % MEDENT ([facility] Body mass index (BMI) [Ratio] 33.9 kg/m2 33.9 k g/m2 MEDENT ([facility] Aynor body weight 178 [lb_av] 178 [lb_av] MEDEN T ([facility] Body weight 250.00 [lb_av] 250.00 [lb_av] MEDEN T ([facility] Body height 72 [in_i] 72 [in_i] MEDENT ([facility] 6'0" Respiratory rate 14 /min 14 /min MEDENT ( [facility] Heart rate 58 /min 58 /min MEDENT ([facility] Body temperature 97.3 [degF] 97.3 [degF] MEDENT ([facility] Diastolic blood pressure 60 mm[Hg] 60 mm[Hg] MEDENT ([facility] Systolic blood pressure 138 mm[Hg] 138 mm[Hg] EDENT ([facility] Diastolic blood pressure 68 mm[Hg] 68 mm[Hg] MEDENT ([facility]) sitting Systolic blood pressure 122 mm[Hg] 122 mm[Hg] M EDENT ([facility]) sitting Diastolic blood pressure 68 mm[Hg] 68 mm[Hg] MEDENT ([facility]) sitting, large cuff Systolic blood pressure 118 mm[Hg] 118 mm[Hg] M EDENT ([facility]) sitting, large cuff Respiratory rate 16 /min 16 /min MEDENT ( [facility]) Heart rate 60 /min 60 /min MEDENT ([facility]io [facility]y [facility]) Regular Body mass index (BMI) [Ratio] 34.3 kg/m2 34.3 k g/m2 MEDENT ([facility]) Body height 72 [in_i] 72 [in_i] MEDENT ([facility]i [facility]y [facility]) 6'0" Body weight 253.00 [lb_av] 253.00 [lb_av] MEDEN T ([facility]) Body weight 125.647 kg 125.647 kg MEDENT ([facility]) Body mass index (BMI) [Ratio] 37.6 kg/m2 37.6 k g/m2 MEDENT ([facility]) Body weight 277.00 [lb_av] 277.00 [lb_av] MEDEN T ([facility]) Body height 72 [in_i] 72 [in_i] MEDENT ([facility]) 6'0" Diastolic blood pressure 62 mm[Hg] 62 mm[Hg] MEDENT ([facility]) Systolic blood pressure 152 mm[Hg] 152 mm[Hg] M EDENT ([facility]) Body mass index (BMI) [Ratio] 37.6 kg/m2 37.6 k g/m2 MED[facility] ([facility] Aynor body weight 178 [lb_av] 178 [lb_av] MEDEN T ([facility] Body weight 277.00 [lb_av] 277.00 [lb_av] MEDEN T ([facility] Body height 72 [in_i] 72 [in_i] MEDENT ([facility] 6'0" Respiratory rate [...] k g/m2 MED[facility] ([facility] A[place] body weight 178 [lb_av] 178 [lb_av] MEDEN T ([facility] Body weight 272.00 [lb_av] 272.00 [lb_av] MEDEN T ([facility] Body height 72 [in_i] 72 [in_i] MEDENT ([facility] 6'0" Respiratory rate [...] height 72 [in_i] 72 [in_i] MEDENT ([facility] 6'0" Respiratory rate [...] mm[Hg] 68 mm[Hg] MEDENT ([facility]) sitting Systolic blood pressure 128 mm[Hg] 128 mm[Hg] M EDENT ([facility]) sitting Diastolic blood pressure 68 mm[Hg] 68 mm[Hg] MEDENT ([facility]) sitting, large cuff Systolic blood pressure 132 mm[Hg] 132 mm[Hg] M EDENT ([facility]) sitting, large cuff Respiratory rate 16 /min 16 /min MEDENT ( [facility]) Heart rate 60 /min 60 /min MEDENT (Cardio [facility]y [facility]) Irregular Body mass index (BMI) [Ratio] 37.6 kg/m2 37.6 k g/m2 MEDENT ([facility]) Body height 72 [in_i] 72 [in_i] MEDENT (Cardi [facility]logy [facility]) 6'0" Body weight 277.00 [lb_av] 277.00 [lb_av] DIMITRYEN T ([facility])
--- NOTE | 2020-06-10 05:42 | HPEPDOC ---
General Date of Admission Jun 10, 2020 at 04:32 Date of Service: Jun 10, 2020 Chief Complaint The patient is a 80-year-old male admitted with a reason for visit of Acute Renal Failure, Weakness. Source: Patient History of Present Illness Mr. Villeda is a 80 year old male who had critical care myopathy and recently discharged from ARU who presents with weakness. He was recently here from 04/29/2020 to 05/19/2020 for acute hypoxic hypercapnic respiratory failure 2/2 CHF exacerbation requiring ventilation. His course was complicated by acute GI bleed 2/2 warfarin for mechanical aortic valve. He was sent to ARU from 05/19/2020 to 05/28/2020. He did well at home on Sunday and Sunday. Sunday, he had diarrhea. He denies eating anything strange or different. he had 4 episodes of longoria colored large volume diarrhea. This morning, he was not doing well. He normally ambulates with a walker, but he had difficulty making it to his chair. He tried to get up around 10AM to 11AM, but was too weak to stand. He ended up sliding from his chair. Denies LOC or head strike. He was on the floor. They called his sister to come over to lift him to his chair. They were going to try to stay home, but it would have been too difficult with him having to urinate. They called for EMS. While here, he was found to have AMINA (baseline creatinine around 1, admission creatinine 1.86). Patient to be admitted for AMINA and weakness Home Medications Scheduled Allopurinol (Zyloprim) 300 Mg Tablet, 300 MG PO DAILY, (Reported) Atorvastatin Calcium (Atorvastatin Calcium) 20 Mg Tablet, 20 MG PO QHS, (Reported) Bisoprolol Fumarate (Bisoprolol Fumarate) 5 Mg Tablet, 5 MG PO DAILY, (Reported) Calcium Carbonate/Vitamin D3 (Calcium 600-Vit D3 400 Tablet) 1 Tab Tab, 1 TAB PO DAILY, (Reported) Carbidopa/Levodopa (Carbidopa-Levodopa 25-100 Tab) 1 Each Tablet, 1 TAB PO TID, (Reported) Ferrous Sulfate (Ferrous Sulfate) 325 Mg Tab, 325 MG PO DAILY, (Reported) Folic Acid (Folic Acid) 1 Mg Tab, 1 MG PO QPM, (Reported) Multivitamins (Thera M Plus Tablet) 1 Tab Tab, 1 TAB PO DAILY, (Reported) Omeprazole (Omeprazole) 40 Mg Capsule.dr, 40 MG PO BID, (Reported) Polyethylene Glycol 3350 (Miralax) 1 Pow Pow, 1 DOSE PO DAILY, (Reported) Potassium Chloride (Potassium Chloride) 10 Meq Tab.er.prt, 10 MEQ PO BID, (Reported) Salmeterol/Fluticasone (Advair 250-50 Diskus) 1 Each Blst.w.dev, 1 PUFF INH BID, (Reported) Spironolactone (Spironolactone) 25 Mg Tablet, 25 MG PO DAILY, (Reported) Tiotropium [place] (Spiriva Respimat) 4 Gm Mist.inhal, 1.25 MCG INH DAILY, (Reported) Torsemide (Torsemide) 20 Mg Tablet, 20 MG PO QPM, (Reported) Torsemide (Torsemide) 20 Mg Tablet, 40 MG PO QAM, (Reported) Ubidecarenone (Co Q-10) 200 Mg Capsule, 200 MG PO DAILY, (Reported) Warfarin Sodium (Warfarin Sodium) 3 Mg Tablet, 6 MG PO 2XW, (Reported) mon,and thur Warfarin Sodium (Warfarin Sodium) 5 Mg Tablet, 5 MG PO 5XW, (Reported) tue,wed,fri,sat,sun Scheduled PRN Albuterol Sulfate (Proair Hfa) 108 Mcg/Act Aer, 2 PUFF INH QID PRN for SHORTNESS OF BREATH Carboxymethylcellulose Sodium (Refresh Tears) 0.5 % Aramis, 1 DROP OS DAILY PRN for DRY EYES, (Reported) Fluticasone Propionate (Flonase Allergy Relief) 50 Mcg/Act Spr, 100 MCG NA DAILY PRN for NASAL CONGESTION, (Reported) Nitroglycerin (Nitroglycerin) 0.4 Mg Sub, 0.4 MG SL NITRO PRN for CHEST PAIN Allergies Coded Allergies: No Known Allergies (Unverified , 08/20/18) Past Medical History Medical History 1. Mechanical aortic valve on warfarin 2. CAD s/p stent 3. CHF 4. Hypertension 5. COPD 6. GERD 7. BLANE 8. History of GIB Surgical History 1. Coronary artery stent x1 2. Aortic valve replacement (mechanical) 3. Tonsillectomy 4. Adenoidectomy 5. Bilateral cataract surgery Family History Patient denies knowledge of medical history in parents Social History * Smoker: former Smoker (quit 20 years ago) Alcohol: other (1 beer a month) Drugs: denies A-FIB/CHADSVASC A-FIB History Current/History of A-Fib/PAF?: No Review of Systems Constitutional: Denies: Chills, Fever Eyes: Denies: Vision change ENT: Denies: Sore Throat Skin: Denies: Rash Pulmonary: Reports: Dyspnea (on exertion) Cardiovascular: Denies: Chest Pain, Lt Headedness Gastrointestinal: Reports: Diarrhea (Yesterday); Denies: Nausea, Abdominal Pain Genitourinary: Denies: Dysuria Hematologic: Denies: Bruising Neurological: Reports: Weakness Psych: Reports: Anxiety, Depression Physical Examination General Exam: Positive: Alert, Cooperative Eye Exam: Positive: EOMI; Negative: Sclera icteric ENT Exam: Positive: Atraumatic Neck Exam: Positive: Supple Chest Exam: Positive: Clear to auscultation; Negative: Rales, Rhonchi, Wheezing Heart Exam: Positive: Rate Normal, Irregular Rhythm Abdomen Exam: Positive: Normal bowel sounds, Soft; Negative: Tenderness Extremity Exam: Positive: Edema (bilateral pitting edema) Neuro Exam: Positive: Cranial Nerves 3-12 NL Psych Exam: Positive: Mental status NL, Mood NL Vital Signs Vital Signs Date Time Temp Pulse Resp B/P (MAP) Pulse Ox O2 Delivery O2 Flow Rate FiO2 06/10/20 03:45 66 16 135/60 (85) 98 Room Air 06/10/20 01:46 97.7 Laboratory Data Labs 24H Laboratory Tests 2 06/10/20 01:40: Immature Granulocyte % (Auto) 1.2, Neutrophils (%) (Auto) 84.2H, Lymphocytes (%) (Auto) 6.1L, Monocytes (%) (Auto) 7.5, Eosinophils (%) (Auto) 0.4, Basophils (%) (Auto) 0.6, Neutrophils # (Auto) 11.0H, Lymphocytes # (Auto) 0.8L, Monocytes # (Auto) 1.0H, Eosinophils # (Auto) 0.1, Basophils # (Auto) 0.1, Reticulocyte # (auto) 61.2, Nucleated Red Blood Cells % (auto) 0.0, Percent Reticulocyte Count 2.4H, Reticulocyte Hemoglobin Equivalent 36.6H, Prothrombin Time 34.6H, Prothromb Time International Ratio 3.34, Anion Gap 10, Glomerular Filtration Rate 37.5L, Calcium Level 8.4L, Iron Level 128, Total Iron Binding Capacity 259, Transferrin % Saturation 49.4, Ferritin 66, Total Creatine Kinase 21L CBC/BMP Laboratory Tests 06/10/20 01:40 Microbiology Microbiology 06/10/20 Respiratory Virus Panel (PCR) ([facility]) - Final, Complete Assessment/Plan Mr. Villeda is a 80 year old male who had critical care myopathy and recently discharged from ARU who presents with weakness. He has acute kidney injury which was suspected to be from dehydration from diarrhea. Oral mucosa appears dry, but he does have significant pitting edema. If he is dry, then his low hemoglobin may be even lower which may explain his weakness. Will give IVF and recheck CBC and BMP later this morning. If hemoglobin drops, he may need a transfusion. Otherwise will give fluid and hold Torsemide and Spironolactone. Will need to check PT/INR every day for warfain dosing. Will also order physical therapy for weakness Plan / VTE VTE Prophylaxis Ordered?: Yes Plan Plan 1. Acute kidney injury -Baseline creatinine around 1, creatinine on admission at 1.8 -Suspecting dehydration, oral mucosal dry -IVF and hold torsemide and spironolactone 2. Anemia -Baseline hemoglobin around 10. Admission hemoglobin around 8 -This may be hemoconcentrated. Will give IVF and recheck hemoglobin later in the morning. If drops, he may need a transfusion 3. Heart failure with preserved ejection fraction -EF of 75% on 04/29/2020. RVSP 65 -Hold torsemide and spironolactone due to AMINA from dehydration 4. Mechanical heart valve -Monitor INR daily -Order Warfarin after seeing INR results 5. Recent GI bleed -Continue omeprazole 40mg BID 6. DVT ppx -On Warfarin TRINY FRAZIER DO Jun 10, 2020 05:42
[2020-06-10 06:34] VITALS: BP 137/51
[2020-06-10] MEDS: TIOTROPIUM INHALER/CAPSULE (SPIRIVA) INH SCH ×2 (08:14→19:05)
[2020-06-10] MEDS: ADVAIR HFA 115/21MCG INHALER INH SCH ×2 (08:14→19:06)
[2020-06-10 08:41] LABS: HEMATOCRIT 23.3 % (42.0-52.0); HEMOGLOBIN 7.3 g/dl (13.5-17.5); MEAN CORPUSCULAR HEMOGLOBIN 32.4 pg (27.0-33.0); MEAN CORPUSCULAR HGB CONC 31.3 g/dl (32.0-36.5); MEAN CORPUSCULAR VOLUME 103.6 fl (80.0-96.0); PLATELET COUNT, AUTOMATED 200 10^3/uL (150-450); RED BLOOD COUNT 2.25 10^6/uL (4.30-6.10); WHITE BLOOD COUNT 9.9 10^3/uL (4.0-10.0)
[2020-06-10] MEDS: MIRALAX *UNIT DOSE* 17GM PACKET PO SCH (09:00)
--- NOTE | 2020-06-10 09:00 | REP ---
INDICATION: AMINA. COMPARISON: Comparison study is from 21 April 2014.. TECHNIQUE: Urinary tract sonography. FINDINGS: Scanning at the level of the urinary bladder shows no abnormality. Renal cortical echogenicity pattern is normal bilaterally and contours are smooth. There is no evidence of hydronephrosis, cyst, mass, or calculus in either kidney. The right kidney measures 10.8 x 4.7 x 4.7 cm. Left renal dimensions are 12.1 x 4.0 x 5.2 cm. IMPRESSION: Normal urinary tract sonography. <Electronically signed by Tony Apodaca > 06/10/20 0831
[2020-06-10 09:05] LABS: CALCIUM LEVEL 8.4 MG/DL (8.8-10.2); CREATININE FOR GFR 1.67 MG/DL (0.70-1.30); GLOMERULAR FILTRATION RATE 42.5 (>42); POTASSIUM SERUM 3.3 MEQ/L (3.5-5.1)
[2020-06-10] MEDS: OMEPRAZOLE 20 MG CAP PO SCH ×2 (09:06→20:55)
[2020-06-10] MEDS: allopurinoL 300 MG TAB PO SCH (09:06)
[2020-06-10] MEDS: POTASSIUM CHLORIDE 10 MEQ SR TABLET PO SCH ×2 (09:06→20:55)
[2020-06-10] MEDS: FERROUS SULFATE 325MG TAB PO SCH (09:06)
[2020-06-10] MEDS: MULTIVITAMINS/MINERALS THERAP 1 TAB PO SCH (09:06)
[2020-06-10] MEDS: SINEMET 25-100 MG TAB PO SCH ×3 (09:06→20:55)
[2020-06-10] MEDS: bisoproloL fumarate 5 MG TAB PO SCH (09:07)
--- NOTE | 2020-06-10 09:09 | IPN ---
PROGRESS NOTE DATE: 06/10/2020 SUBJECTIVE: Ronal is seen [facility]. He is admitted with acute kidney injury and weakness. He was unable to stand, he said his legs were too weak for him to get out of a chair, he had a recent hospitalization on for acute hypoxic hypercapnic respiratory failure from CHF, required a ventilator, had an upper GI bleed secondary to warfarin that is required for mechanical heart failure, he was in the ARU, was discharged on 05/28/2020. PAST MEDICAL HISTORY: Mechanical aortic heart failure on chronic anticoagulation therapy with warfarin, coronary artery disease with a history of a coronary artery stent, congestive heart failure with apparently preserved ejection fraction, hypertension heart disease, COPD, GERD, BLANE and recent GI bleed. PHYSICAL EXAMINATION: VITAL SIGNS: Blood pressure 135/75, pulse 72, respiratory rate is 17, 95% O2 saturation. GENERAL APPEARANCE: He is alert, conversant, in no distress. LUNGS: Clear. HEART: Regular rate and rhythm with a crisp prosthetic click, a 1/6 systolic ejection murmur. LUNGS: Clear. ABDOMEN: Soft, nontender. No masses. EXTREMITIES: No clubbing, cyanosis or edema. LABORATORY DATA: White count 13, hemoglobin is 8.2, platelets are 229,000, sodium 142, potassium is 3.6, BUN 79, creatinine is 1.8. INR 3.34. IMPRESSION: 1. Acute kidney injury. He is receiving normal saline at 100 per hour, I will change that to half normal saline with supplemental potassium after the current bag is infused, repeat labs are pending for today. 2. Mechanical aortic heart valve. INR is prolonged. Will hold his warfarin for today. He will need this ordered on a daily basis. 3. Coronary artery disease, continue his Bisoprolol 5 mg daily, Nitrostat p.r.n. 4. COPD, continue bronchodilator therapy. 5. History of gout, continue the Allopurinol 300 mg daily. 6. Hyperlipidemic, continue atorvastatin 20 mg daily. 7. History of GI bleed, acute blood loss anemia. He is on ferrous sulfate 325 mg daily, iron studies show sufficient iron with a reticulocyte hemoglobin equivalent that is elevated indicating adequate replacement. 8. Physical and Occupational Therapy have been consulted.
[2020-06-10] MEDS: KCL 20MEQ IN 0.45NS 1000ML 1,000 ML IV SCH ×2 (09:56→20:54)
[2020-06-10 10:39] LABS: FOLATE > 24.0 NG/ML; VITAMIN B12 LEVEL 402 PG/ML
[2020-06-10 11:55] LABS: MAGNESIUM LEVEL 2.2 MG/DL (1.8-2.4)
[2020-06-10 14:00] VITALS: BP 119/50
[2020-06-10] MEDS ORDERED: WARFARIN SOD 5MG TAB PO ONE (17:00)
[2020-06-10] MEDS: ATORVASTATIN 20 MG TAB PO SCH (20:54)
[2020-06-10] MEDS: FOLIC ACID 1 MG TAB PO SCH (20:54)
[2020-06-10 22:00] VITALS: BP 108/53
[2020-06-11] VITALS (13 sets, daily range): BP systolic 117–139; BP diastolic 44–57
[2020-06-11] MEDS: KCL 20MEQ IN 0.45NS 1000ML 1,000 ML IV SCH (05:43)
[2020-06-11 06:37] LABS: MEAN CORPUSCULAR HGB CONC 31.4 g/dl (32.0-36.5); MEAN CORPUSCULAR VOLUME 105.1 fl (80.0-96.0); PLATELET COUNT, AUTOMATED 170 10^3/uL (150-450); RED BLOOD COUNT 1.97 10^6/uL (4.30-6.10); WHITE BLOOD COUNT 7.7 10^3/uL (4.0-10.0)
[2020-06-11 06:52] LABS: HEMATOCRIT 20.7 % (42.0-52.0); HEMOGLOBIN 6.5 g/dl (13.5-17.5)
[2020-06-11 06:52] LABS: INR 4.72; PROTHROMBIN TIME 45.5 SECONDS (12.5-14.3)
[2020-06-11 06:56] LABS: CALCIUM LEVEL 8.5 MG/DL (8.8-10.2); CREATININE FOR GFR 1.34 MG/DL (0.70-1.30); GLOMERULAR FILTRATION RATE 54.7 (>42); POTASSIUM SERUM 3.7 MEQ/L (3.5-5.1)
[2020-06-11] MEDS: ADVAIR HFA 115/21MCG INHALER INH SCH ×2 (07:33→20:20)
[2020-06-11] MEDS: TIOTROPIUM INHALER/CAPSULE (SPIRIVA) INH SCH (07:34)
--- NOTE | 2020-06-11 08:13 | ECGEPIP ---
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
--- NOTE | 2020-06-11 09:27 | IPN ---
PROGRESS NOTE DATE: 06/11/2020 SUBJECTIVE: Ronal is anemic this morning. He is going to need some blood transfused. He is not having any chest pain or shortness of breath. There has been no sign of any active GI bleeding. He has a mechanical aortic heart valve on chronic anticoagulation. Congestive heart failure with preserved ejection fraction. OBJECTIVE: VITAL SIGNS: Blood pressure 119/48, pulse 71. GENERAL APPEARANCE: Alert, conversant, in no distress. HEENT: Unremarkable. LUNGS: Clear. HEART: Regular rate and rhythm with a crisp prosthetic click and a 1/6 systolic ejection murmur. ABDOMEN: Soft and nontender with no masses. Trace peripheral edema. LABORATORY DATA: White count 7.7, hemoglobin 6.5 (he has been receiving IV fluids), platelets 170,000. Sodium 143, potassium 3.7, BUN 51, creatinine 1.34. INR is 4.7. ASSESSMENT/PLAN: 1. Acute kidney injury. This is resolved. We are stopping intravenous (IV) fluids today. 2. Anemia secondary to hemodilution from IV fluids. No sign of active bleeding. Stool is being checked for occult blood. He is being transfused two units of packed red blood cells. 3. Mechanical aortic heart valve. INR is prolonged. Warfarin is held and daily INRs have been ordered. No active bleeding. 4. Coronary artery disease. Continue current regimen. 5. Hyperlipidemia. Continue atorvastatin. 6. Leg weakness. Physical and occupational therapy have been consulted.
[2020-06-11] MEDS: FERROUS SULFATE 325MG TAB PO SCH (11:21)
[2020-06-11] MEDS: MIRALAX *UNIT DOSE* 17GM PACKET PO SCH (11:21)
[2020-06-11] MEDS: POTASSIUM CHLORIDE 10 MEQ SR TABLET PO SCH ×2 (11:21→20:41)
[2020-06-11] MEDS: SINEMET 25-100 MG TAB PO SCH ×3 (11:21→20:41)
[2020-06-11] MEDS: allopurinoL 300 MG TAB PO SCH (11:21)
[2020-06-11] MEDS: MULTIVITAMINS/MINERALS THERAP 1 TAB PO SCH (11:21)
[2020-06-11] MEDS: OMEPRAZOLE 20 MG CAP PO SCH ×2 (11:22→20:41)
[2020-06-11] MEDS: bisoproloL fumarate 5 MG TAB PO SCH (11:25)
[2020-06-11] MEDS ORDERED: FUROSEMIDE 20MG/2ML VIAL (J1940) IV ONE (13:00)
[2020-06-11] MEDS: FOLIC ACID 1 MG TAB PO SCH (20:40)
[2020-06-11] MEDS: ATORVASTATIN 20 MG TAB PO SCH (20:40)
[2020-06-12 00:30] VITALS: BP 137/56
[2020-06-12] MEDS ORDERED: NYSTATIN 100,000 UNITS/GM TOPICAL PWD 15 GM TOP PRN (01:15)
[2020-06-12 01:30] VITALS: BP 139/57
[2020-06-12 06:00] VITALS: BP 124/55
[2020-06-12 06:06] LABS: MEAN CORPUSCULAR HEMOGLOBIN 32.7 pg (27.0-33.0); PLATELET COUNT, AUTOMATED 187 10^3/uL (150-450); RED BLOOD COUNT 2.45 10^6/uL (4.30-6.10)
[2020-06-12 06:22] LABS: INR 2.97; PROTHROMBIN TIME 31.6 SECONDS (12.5-14.3)
[2020-06-12 06:27] LABS: BLOOD UREA NITROGEN 32 MG/DL (7-18); CALCIUM LEVEL 8.6 MG/DL (8.8-10.2); CARBON DIOXIDE LEVEL 27 MEQ/L (21-32); CHLORIDE LEVEL 110 MEQ/L (98-107); CREATININE FOR GFR 1.17 MG/DL (0.70-1.30); GLOMERULAR FILTRATION RATE > 60.0 (>42); GLUCOSE, FASTING 93 MG/DL (70-100); SODIUM LEVEL 146 MEQ/L (136-145)
[2020-06-12] MEDS: ADVAIR HFA 115/21MCG INHALER INH SCH (07:23)
[2020-06-12] MEDS: TIOTROPIUM INHALER/CAPSULE (SPIRIVA) INH SCH (07:23)
[2020-06-12] MEDS: MULTIVITAMINS/MINERALS THERAP 1 TAB PO SCH (08:23)
[2020-06-12] MEDS: POTASSIUM CHLORIDE 10 MEQ SR TABLET PO SCH (08:23)
[2020-06-12] MEDS: FERROUS SULFATE 325MG TAB PO SCH (08:23)
[2020-06-12] MEDS: allopurinoL 300 MG TAB PO SCH (08:24)
[2020-06-12] MEDS: SINEMET 25-100 MG TAB PO SCH (08:24)
[2020-06-12] MEDS: OMEPRAZOLE 20 MG CAP PO SCH (08:24)
[2020-06-12] MEDS: MIRALAX *UNIT DOSE* 17GM PACKET PO SCH (08:24)
[2020-06-12 08:25] VITALS: BP 148/62
[2020-06-12] MEDS: bisoproloL fumarate 5 MG TAB PO SCH (08:25)
--- NOTE | 2020-06-12 09:13 | DSES ---
DISCHARGE SUMMARY DATE OF ADMISSION: 06/10/2020 DATE OF ANTICIPATED DISCHARGE: 06/12/2020 PRINCIPAL DIAGNOSES: Acute kidney injury. SECONDARY DIAGNOSES: 1. Anemia requiring transfused packed red blood cells. 2. Mechanical heart valve. 3. Excessive anticoagulation - resolved. 4. Coronary artery disease. 5. Hyperlipidemia. 6. Leg weakness. HISTORY: Patient is admitted with severe leg weakness and anemia, details in history and physical from admission. HOSPITAL COURSE: He was observed on [facility]. He became more anemic. He did not have any obvious bleeding. He was transfused 2 units of packed red blood cells. Hemoglobin climbed up to 8. He was seen by physical therapy, was able to get out of bed. The evening before admission, overnight, he was confused, trying to get out of bed, but this morning he is fully oriented, he knows his 's name, his phone number, his location, and we had a pleasant conversation. I think he was ing and will probably be better in his home environment. PHYSICAL EXAMINATION: Today: Vital signs are stable, blood pressure 148/62. He is alert and conversant. No facial droop or weakness. Lungs: Clear. Heart: Rhythm, crisp prosthetic click, 1/6 systolic ejection murmur. Abdomen: Soft, nontender, no masses. No peripheral edema. LABORATORIES: White count 9, hemoglobin 8, platelets 187, sodium 146, potassium 4, BUN 32, creatinine 1.1, glucose 93, INR 2.97. DISPOSITION: He is discharged home, improved, in stable condition. He will followup with his primary care provider, Tiago Jo, in a week. His activity is as tolerated. He is on a no added salt diet. MEDICATIONS ON DISCHARGE: Will continue to be: - albuterol two puffs four times a day as needed - Zyloprim/allopurinol 300 mg daily - atorvastatin 20 mg daily - bisoprolol 5 mg daily - calcium carbonate with vitamin D daily - Sinemet 25-100 one three times a day - ferrous sulfate 325 mg daily - Flonase spray one spray daily - folic acid 1 mg daily - multivitamin daily - Nitrostat as needed - omeprazole 40 mg twice a day - MiraLax a packet daily as needed - potassium chloride 10 mEq twice a day - Advair 250/50 one inhalation twice a day - spironolactone 25 mg daily - Spiriva inhaler 1.25 mcg daily - torsemide 20 mg daily - coenzyme Q10 daily He will resume his previous warfarin dose, he takes 6 mg twice a week, 5 mg five times a week, he should have his INR checked by Dr. Jo early next week, INR was excessively prolonged on admission and got up to around 4.5 before coming down to a therapeutic range. I recommended this be done either Sunday or Sunday at the latest. At the time of this dictation, there are no pending labs.
== END 2020-06-12 11:04 | disposition home or self-care (01) | DRG 683 ==
LOC: M ED 01:29 → M ED INP 04:32 → M MSPAV 06:34
PROVIDERS: ADMIT Internal Medicine; ATTEND Family Medicine
PROC: 30233N1 Transfusion of Nonautologous Red Blood Cells into Peripheral Vein, Percutaneous Approach (ICD-10-PCS; principal; 2020-06-11)
DX: N17.9 Acute kidney failure, unspecified (principal); I50.32 Chronic diastolic (congestive) heart failure; Z79.01 Long term (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 of anticoagulants; D64.9 Anemia, unspecified; I25.10 Atherosclerotic heart disease of native coronary artery without angina pectoris; E78.5 Hyperlipidemia, unspecified; Z79.899 Other long term (current) drug therapy; Z95.2 Presence of prosthetic heart valve; G47.33 Obstructive sleep apnea (adult) (pediatric); K21.9 Gastro-esophageal reflux disease without esophagitis; J44.9 Chronic obstructive pulmonary disease, unspecified; I11.0 Hypertensive heart disease with heart failure; Z98.41 Cataract extraction status, right eye; Z98.42 Cataract extraction status, left eye; Z87.891 Personal history of nicotine dependence

== ENCOUNTER → 2020-06-15 | Outpatient (CLI) | payer MEDICARE ==
[~2020-06-15] MED LIST changes: +CARB25TA9 PO; +OMEP-221 PO; +POTA10TA17 PO; +WARF-23 PO; +WARF-58 PO
--- NOTE | 2020-06-15 17:36 | REP ---
INDICATION: HEART FAILURE. COMPARISON: Comparison chest x-ray June 10, 2020. TECHNIQUE: Two views.. FINDINGS: Patient is status post prior median sternotomy. There is bibasilar platelike atelectasis, new on the right. No pleural effusion is seen. No focal infiltrate is seen. Heart is enlarged unchanged. There are degenerative changes in the thoracic spine. Calcific changes are seen in the aorta. IMPRESSION: Cardiomegaly prior sternotomy. Bibasilar discoid atelectasis. No pleural effusion or pulmonary edema seen.. <Electronically signed by Tony Apodaca > 06/15/20 [id number]
== END ==
LOC: M WUC 14:28
PROVIDERS: ATTEND Internal Medicine
DX: I51.7 Cardiomegaly (principal); J98.11 Atelectasis; I50.9 Heart failure, unspecified; I48.21 Permanent atrial fibrillation; Z79.01 Long term (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 of anticoagulants

== ENCOUNTER → 2020-06-15 | Outpatient (REF) | payer MEDICARE ==
[2020-06-15 14:04] LABS: INR 2.26; PROTHROMBIN TIME 25.5 SECONDS (12.5-14.3)
== END ==
LOC: M SHH 13:13
PROVIDERS: ATTEND Physician Assistant
DX: I48.21 Permanent atrial fibrillation (principal); Z79.01 Long term (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 of anticoagulants

== ENCOUNTER → 2020-06-29 | Outpatient (REF) | payer MEDICARE ==
[2020-06-29 13:40] LABS: INR 2.12; PROTHROMBIN TIME 24.2 SECONDS (12.5-14.3)
== END ==
LOC: M SHH 13:08
PROVIDERS: ATTEND Physician Assistant
DX: I48.21 Permanent atrial fibrillation (principal); Z79.01 Long term (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 of anticoagulants

== ENCOUNTER 2020-07-03 17:44 | Emergency (ER) | payer MEDICARE ==
[~2020-07-03] VITALS: Ht 182.9 cm; Wt 110.5 kg
[2020-07-03] MEDS ORDERED: TRANEXAMIC ACID 100 MG/ML 10ML VIAL ONE (18:15)
[2020-07-03 18:30] LABS: HEMATOCRIT 28.3 % (42.0-52.0); HEMOGLOBIN 8.9 g/dl (13.5-17.5); MEAN CORPUSCULAR HEMOGLOBIN 32.5 pg (27.0-33.0); MEAN CORPUSCULAR HGB CONC 31.4 g/dl (32.0-36.5); MEAN CORPUSCULAR VOLUME 103.3 fl (80.0-96.0); PLATELET COUNT, AUTOMATED 222 10^3/uL (150-450); RED BLOOD COUNT 2.74 10^6/uL (4.30-6.10); WHITE BLOOD COUNT 8.5 10^3/uL (4.0-10.0)
[2020-07-03 18:41] LABS: INR 2.31; PROTHROMBIN TIME 25.9 SECONDS (12.5-14.3)
[2020-07-03] MEDS ORDERED: NS 500 ML IV ONE (18:45)
[2020-07-03 19:16] LABS: CK-MB VALUE MASS < 1.0 NG/ML (<3.6); CPK CREATINE PHOSPHOKINASE 23 U/L (39-308); MB/CK RELATIVE INDEX 4.35 (< OR =4); TROPONIN I < 0.02 NG/ML (< 0.10)
[2020-07-03 20:24] VITALS: BP 130/61
--- NOTE | 2020-07-04 09:40 | ECGEPIP ---
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
== END 2020-07-03 20:26 | disposition home or self-care (01) ==
LOC: M ED 17:44
DX: I48.91 Unspecified atrial fibrillation (principal); R04.0 Epistaxis; I10 Essential (primary) hypertension; Z95.5 Presence of coronary angioplasty implant and graft; Z95.4 Presence of other heart-valve replacement; Z87.891 Personal history of nicotine dependence; Z79.02 Long term (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 of antithrombotics/antiplatelets; Z79.899 Other long term (current) drug therapy

== ENCOUNTER 2020-07-11 03:48 | Inpatient (IN) | payer MEDICARE ==
[2020-07-11] VITALS (12 sets, daily range): BP systolic 131–163; BP diastolic 44–73
[~2020-07-11] VITALS: Ht 182.9 cm; Wt 113.3 kg
[~2020-07-11 03:48] MED LIST changes: -REFR0.5D8 OS; +REFR0.5D8 OU
[2020-07-11 05:50] LABS: HEMATOCRIT 24.5 % (42.0-52.0); HEMOGLOBIN 7.6 g/dl (13.5-17.5); MEAN CORPUSCULAR HEMOGLOBIN 32.1 pg (27.0-33.0); MEAN CORPUSCULAR VOLUME 103.4 fl (80.0-96.0); PLATELET COUNT, AUTOMATED 229 10^3/uL (150-450); RED BLOOD COUNT 2.37 10^6/uL (4.30-6.10); WHITE BLOOD COUNT 9.5 10^3/uL (4.0-10.0)
[2020-07-11 06:01] LABS: INR 3.15; PROTHROMBIN TIME 33.1 SECONDS (12.5-14.3)
[2020-07-11 06:02] LABS: PARTIAL THROMBOPLASTIN TIME 54.4 SECONDS (24.2-38.5)
[2020-07-11 06:17] LABS: CALCIUM LEVEL 7.5 MG/DL (8.8-10.2); CREATININE FOR GFR 1.5 MG/DL (0.70-1.30); GLOMERULAR FILTRATION RATE 48.1 (>42)
[2020-07-11] MEDS ORDERED: PROAAER10 INH (07:50)
[2020-07-11] MEDS ORDERED: NITR0.4S14 SL (07:50)
[2020-07-11] MEDS: TIOTROPIUM INHALER/CAPSULE (SPIRIVA) INH SCH (08:00)
[2020-07-11] MEDS: ADVAIR HFA 115/21MCG INHALER INH SCH ×2 (09:00→20:08)
[2020-07-11] MEDS ORDERED: MOM 30ML SUSPENSION UDC PO PRN (09:45)
[2020-07-11] MEDS ORDERED: MAALOX 30 ML SUSP *UDC PO PRN (09:45)
[2020-07-11] MEDS ORDERED: ACETAMINOPHEN TAB 650MG DOSE (2X325MG) PO PRN (09:45)
--- NOTE | 2020-07-11 09:48 | HPEPDOC ---
[facility] Medical History & Physical Date of Admission Jul 11, 2020 Date of Service: Jul 11, 2020 History and Physical CHIEF COMPLAINT: epistaxis HISTORY OF PRESENT ILLNESS: 80-year-old male with a history of coronary artery d isease status post stenting, mechanical aortic valve on warfarin, CHF, hypertension, COPD, GERD, BLANE, as well as history of GI bleeding, presents with a 12 hour history of intractable epistaxis. She was last seen in the ER a week ago for the same complaint. The patient and reports significant epistaxis flowing down the back of the throat, draining staining his clothing. Patient denies chest pain, shortness of breath, nausea, vomiting, diarrhea, lightheadedness, weakness. Found to be anemic in the ER, hemoglobin 7.6, down from a recent hemoglobin check. According to patient, which was approximately 10. Epistaxis resolved spontaneously in the ED. Found to have a supratherapeutic INR of 3.5. As reviewed, temperature 3097.6. Heart rate 62. Respiratory 20. Blood pressure 101 44. Pulse ox 98% on room air. Labs reviewed. WBC 9.4. Hemoglobin 7.6. Hematocrit 25.0. Platelets 224. Sodium 140. K+ 4.0. Creatinine 1.50 (baseline below 1.0). Patient will be admitted to hospitalist service for observation secondary to recent epistaxis requiring blood transfusion. Patient was ordered 1 unit of packed red blood cells in the ER. PAST MEDICAL HISTORY: 1. Mechanical aortic valve on warfarin 2. CAD s/p stent 3. CHF 4. Hypertension 5. COPD 6. GERD 7. BLANE 8. History of GIB PAST SURGICAL HISTORY: 1. Coronary artery stent x1 2. Aortic valve replacement (mechanical) 3. Tonsillectomy 4. Adenoidectomy 5. Bilateral cataract surgery SOCIAL HISTORY: Former smoker Rare alcohol use Denies illicits FAMILY HISTORY: Reviewed with patient denies prior relevant family history ALLERGIES: Please see below. REVIEW OF SYSTEMS: A 10 point review of systems was conducted, relevant findings are noted in HPI. HOME MEDICATIONS: Please see below. PHYSICAL EXAMINATION: VITAL SIGNS: please see below General: NAD, comfortable HEENT: PERRLA, EOMI, sclerae clear Neck: supple, normal ROM, no JVD Respiratory: lungs CTAB, no wheeze, no rales, no crackles CVS: RRR, normal S1, S2, mechanical murmur has aortic valve replacement Abdo: soft, no masses, no hepatosplenomegaly, BS+, no rebound tenderness Extremities: 2+ pitting edema bilaterally MSK: no joint deformities, normal ROM Neuro: no focal neuro deficits, moving all 4 extremities, CN2-12 intact. Strength 5/5 in all 4 extremities. No nystagmus. Psych: calm, cooperative, AAO x 3 LABORATORY DATA: See below. MICROBIOLOGY: Please see below. ASSESSMENT: 80-year-old male with a history of coronary artery disease status post stenting, mechanical aortic valve on warfarin, CHF, hypertension, COPD, GERD, BLANE, as well as history of GI bleeding, presents with a 12 hour history of intractable epistaxis, with resulting acute blood loss anemia. PLAN: Acute blood loss anemia 2/2 epistaxis - resolved spontaneously in ER - Hgb 7.6. Ordered 1 unit pRBC in ER, rpaet Hgb 7.6 - ordered 2nd unit prbc - trend Hgb. - will d/w ENT, for eval in clinic AMINA - likely prerenal due to acute blood loss anemia, reduced PO intake - hold diuretics - will not give fluids for now as receiving 2 units pRBC - setting of HFpEF HFpEF - EF of 75% on 04/29/2020. RVSP 65 - resume home meds, bisoprolol - Hold torsemide and spironolactone due to AMINA - has f/u with Dr. Barriga 2 weeks Mechanical aortic valve - INR 3.15 - goal for aortic valve 2.0-3.0 - will hold coumadin tonight due to severe epistaxis, resume in AM - check INR in am Recent GIB - resume home dose omeprazole 40 mg bid DVT ppx: - warfarin Vital Signs Vital Signs Date Time Temp Pulse Resp B/P (MAP) Pulse Ox O2 Delivery O2 Flow Rate FiO2 07/11/20 04:20 07/11/20 03:48 97.9 70 20 96 Room Air Laboratory Data Labs 24H Laboratory Tests 2 07/11/20 05:34: Nucleated Red Blood Cells % (auto) 0.0, Prothrombin Time 33.1H, Prothromb Time International Ratio 3.15, Activated Partial Thromboplast Time 54.4H, Anion Gap 8, Glomerular Filtration Rate 48.1, Calcium Level 7.5L CBC/BMP Laboratory Tests 07/11/20 05:34 Home Medications Scheduled Allopurinol (Zyloprim) 300 Mg Tablet, 300 MG PO DAILY Atorvastatin Calcium (Atorvastatin Calcium) 20 Mg Tablet, 20 MG PO QHS Bisoprolol Fumarate (Bisoprolol Fumarate) 5 Mg Tablet, 5 MG PO DAILY Calcium Carbonate/Vitamin D3 (Calcium 600-Vit D3 400 Tablet) 1 Tab Tab, 1 TAB PO DAILY Carbidopa/Levodopa (Carbidopa-Levodopa 25-100 Tab) 1 Each Tablet, 1 TAB PO TID Ferrous Sulfate (Ferrous Sulfate) 325 Mg Tab, 325 MG PO DAILY Folic Acid (Folic Acid) 1 Mg Tab, 1 MG PO QPM Omeprazole (Omeprazole) 40 Mg Capsule.dr, 40 MG PO BID Polyethylene Glycol 3350 (Miralax) 1 Pow Pow, 1 DOSE PO DAILY Potassium Chloride (Potassium Chloride) 10 Meq Tab.er.prt, 10 MEQ PO BID Salmeterol/Fluticasone (Advair 250-50 Diskus) 1 Each Blst.w.dev, 1 PUFF INH BID Spironolactone (Spironolactone) 25 Mg Tablet, 25 MG PO DAILY Tiotropium [place] (Spiriva Respimat) 4 Gm Mist.inhal, 1.25 MCG INH DAILY Torsemide (Torsemide) 20 Mg Tablet, 40 MG PO BID Ubidecarenone (Co Q-10) 200 Mg Capsule, 200 MG PO DAILY Warfarin Sodium (Warfarin Sodium) 3 Mg Tablet, 6 MG PO 2XW mon,and thur Warfarin Sodium (Warfarin Sodium) 5 Mg Tablet, 5 MG PO 5XW tue,wed,fri,sat,sun Scheduled PRN Albuterol Sulfate (Proair Hfa) 8.5 Gm Hfa.aer.ad, 2 PUFF INH Q4H PRN for SOB/WHEEZING Carboxymethylcellulose Sodium (Refresh Tears) 0.5 % Aramis, 1 DROP OU DAILY PRN for DRY EYES Fluticasone Propionate (Flonase Allergy Relief) 50 Mcg/Act Spr, 100 MCG NA DAILY PRN for NASAL CONGESTION Nitroglycerin (Nitroglycerin) 0.4 Mg Tab.subl, 0.4 MG SL NITRO PRN for CHEST PAIN Allergies Coded Allergies: No Known Allergies (Unverified , 08/20/18) A-FIB/CHADSVASC A-FIB History Current/History of A-Fib/PAF?: No Current PO Anticoag Therapy: No BROOKE GERBER MD 21, 2021 09:48
[2020-07-11] MEDS ORDERED: ALBUTEROL 90 MCG/ACT 8GM HFA INHALER INH PRN (12:05)
[2020-07-11] MEDS ORDERED: NITROGLYCERIN 0.4 MG SUBL TABLET SL PRN (12:05)
[2020-07-11] MEDS ORDERED: FLUTICASONE PROP 0.05% NASAL SPRAY 16 GM (FLONASE) PRN (12:05)
[2020-07-11] MEDS: MIRALAX *UNIT DOSE* 17GM PACKET PO SCH (15:11)
[2020-07-11] MEDS: DOCUSATE SODIUM 100MG CAPSULE PO SCH ×2 (15:11→20:14)
[2020-07-11] MEDS: SINEMET 25-100 MG TAB PO SCH ×2 (15:11→20:15)
[2020-07-11] MEDS: allopurinoL 300 MG TAB PO SCH (15:11)
[2020-07-11] MEDS: SPIRONOLACTONE 25 MG TAB PO SCH (15:11)
[2020-07-11] MEDS: FERROUS SULFATE 325MG TAB PO SCH (15:11)
[2020-07-11] MEDS: CALCIUM/VITAMIN D 500 MG TAB PO SCH (15:11)
[2020-07-11] MEDS: bisoproloL fumarate 5 MG TAB PO SCH (15:12)
[2020-07-11] MEDS: TORSEMIDE 20 MG TAB PO SCH (17:15)
[2020-07-11 17:20] LABS: BASO # 0.1 10^3/uL (0.0-0.2); BASO % 0.7 % (0.0-1.0); EOS # 0.2 10^3/uL (0.0-0.5); EOS % 1.9 % (0.0-3.0); HEMOGLOBIN 7.6 g/dl (13.5-17.5); LYMPH # 0.5 10^3/uL (1.5-5.0); LYMPH % 5.6 % (24.0-44.0); MEAN CORPUSCULAR HEMOGLOBIN 32.1 pg (27.0-33.0); MEAN CORPUSCULAR HGB CONC 30.4 g/dl (32.0-36.5); MEAN CORPUSCULAR VOLUME 105.5 fl (80.0-96.0); MONO # 0.9 10^3/uL (0.0-0.8); MONO % 9.2 % (2.0-8.0); NEUTROPHILS # 7.6 10^3/uL (1.5-8.5); NEUTROPHILS % 81.3 % (36.0-66.0); PLATELET COUNT, AUTOMATED 224 10^3/uL (150-450); RED BLOOD COUNT 2.37 10^6/uL (4.30-6.10); WHITE BLOOD COUNT 9.4 10^3/uL (4.0-10.0)
[2020-07-11] MEDS: OMEPRAZOLE 20 MG CAP PO SCH (20:14)
[2020-07-11] MEDS: FOLIC ACID 1 MG TAB PO SCH (20:14)
[2020-07-11] MEDS: ATORVASTATIN 20 MG TAB PO SCH (20:14)
[2020-07-11] MEDS: POTASSIUM CHLORIDE 10 MEQ SR TABLET PO SCH (20:15)
[2020-07-12] VITALS (13 sets, daily range): BP systolic 114–171; BP diastolic 41–76
[2020-07-12 06:54] LABS: BASO # 0.1 10^3/uL (0.0-0.2); BASO % 0.8 % (0.0-1.0); EOS # 0.3 10^3/uL (0.0-0.5); EOS % 3.1 % (0.0-3.0); HEMATOCRIT 25.1 % (42.0-52.0); HEMOGLOBIN 7.7 g/dl (13.5-17.5); LYMPH # 0.7 10^3/uL (1.5-5.0); LYMPH % 6.4 % (24.0-44.0); MEAN CORPUSCULAR HEMOGLOBIN 32.1 pg (27.0-33.0); MEAN CORPUSCULAR HGB CONC 30.7 g/dl (32.0-36.5); MEAN CORPUSCULAR VOLUME 104.6 fl (80.0-96.0); MONO # 1.1 10^3/uL (0.0-0.8); MONO % 10.6 % (2.0-8.0); NEUTROPHILS % 77.9 % (36.0-66.0); PLATELET COUNT, AUTOMATED 232 10^3/uL (150-450); WHITE BLOOD COUNT 10.3 10^3/uL (4.0-10.0)
[2020-07-12 07:03] LABS: INR 2.62; PROTHROMBIN TIME 28.6 SECONDS (12.5-14.3)
[2020-07-12 07:13] LABS: BILIRUBIN,TOTAL 0.3 MG/DL (0.2-1.0); CALCIUM LEVEL 8.5 MG/DL (8.8-10.2); CREATININE FOR GFR 1.35 MG/DL (0.70-1.30); GLOMERULAR FILTRATION RATE 54.3 (>42); POTASSIUM SERUM 3.9 MEQ/L (3.5-5.1); TOTAL PROTEIN 6.6 GM/DL (6.4-8.2)
[2020-07-12] MEDS: TIOTROPIUM INHALER/CAPSULE (SPIRIVA) INH SCH (07:17)
[2020-07-12] MEDS: ADVAIR HFA 115/21MCG INHALER INH SCH ×2 (07:18→20:23)
[2020-07-12] MEDS: MIRALAX *UNIT DOSE* 17GM PACKET PO SCH (10:01)
[2020-07-12] MEDS: OMEPRAZOLE 20 MG CAP PO SCH ×2 (10:02→21:03)
[2020-07-12] MEDS: bisoproloL fumarate 5 MG TAB PO SCH (10:03)
[2020-07-12] MEDS: SINEMET 25-100 MG TAB PO SCH ×3 (10:04→21:03)
[2020-07-12] MEDS: CALCIUM/VITAMIN D 500 MG TAB PO SCH (10:04)
[2020-07-12] MEDS: TORSEMIDE 20 MG TAB PO SCH ×2 (10:05→16:30)
[2020-07-12] MEDS: POTASSIUM CHLORIDE 10 MEQ SR TABLET PO SCH ×2 (10:05→21:03)
[2020-07-12] MEDS: allopurinoL 300 MG TAB PO SCH (10:06)
[2020-07-12] MEDS: DOCUSATE SODIUM 100MG CAPSULE PO SCH ×2 (10:06→21:03)
[2020-07-12] MEDS: FERROUS SULFATE 325MG TAB PO SCH (10:06)
[2020-07-12] MEDS: SPIRONOLACTONE 25 MG TAB PO SCH (10:07)
[2020-07-12] MEDS ORDERED: TORSEMIDE 20 MG TAB PO ONE (16:35)
[2020-07-12] MEDS ORDERED: WARFARIN SOD 3MG TAB PO SCH (17:00)
--- NOTE | 2020-07-12 17:03 | IPNPDOC ---
Date Seen The patient was seen on 07/12/20. Progress Note SUBJECTIVE: patient seen and examined at bedside. Doing well. No further epistaxis. No acute events overnight. Hgb did not improve after 2 units. OBJECTIVE PHYSICAL EXAMINATION: VITAL SIGNS: please see below General: NAD, comfortable HEENT: PERRLA, EOMI, sclerae clear. Dried blood in nares, L > R. Neck: supple, normal ROM, no JVD Respiratory: lungs CTAB, no wheeze, no rales, no crackles CVS: RRR, normal S1, S2, mechanical murmur has aortic valve replacement Abdo: soft, no masses, no hepatosplenomegaly, BS+, no rebound tenderness Extremities: 2+ pitting edema bilaterally MSK: no joint deformities, normal ROM Neuro: no focal neuro deficits, moving all 4 extremities, CN2-12 intact. Stren gth 5/5 in all 4 extremities. No nystagmus. Psych: calm, cooperative, AAO x 3 LABORATORY DATA, IMAGING STUDIES, MICROBIOLOGY: Please see below. DVT prophylaxis ordered?: on warfarin ASSESSMENT AND PLAN: 80-year-old male with a history of coronary artery disease status post stenting, mechanical aortic valve on warfarin, CHF, hypertension, COPD, GERD, BLANE, as well as history of GI bleeding, presents with a 12 hour history of intractable epistaxis, with resulting acute blood loss anemia. PLAN: Acute blood loss anemia 2/2 epistaxis - resolved spontaneously in ER - Hgb 7.6 after 2 units, ordered additional 2 - repeat hgb persistently low - check peripheral smear, retic count. Echo to r/o hemolysis in setting of mechanical aortic valve - repeat CBC scheduled - ENT consult placed, D/w Dr. Santiago. - patient taken to ENT clinic, R nasal septum packed cauterized and packed with gel foam - saline nasal spray two sprays BID - follow up with ENT 1 month AMINA - likely prerenal due to acute blood loss anemia, reduced PO intake - hold diuretics - will not give fluids for now as receiving 2 units pRBC - setting of HFpEF HFpEF - EF of 75% on 04/29/2020. RVSP 65 - resume home meds, bisoprolol - resume torsemide, spironolactome - give 20mg lasix given extra volume from blood transfusion - has f/u with Dr. Barriga 2 weeks Mechanical aortic valve - INR 3.15 on arrival, repeat 2.5. - confirmed with Dr. Barriga, goal INR for mechanical aortic valve 2.5 - 3.5. - resume warfarin, s/p nasal packing by Dr. Santiago. Recent GIB - resume home dose omeprazole 40 mg bid DVT ppx: - warfarin VS, I&O, 24H, Fishbone Vital Signs/I&O Vital Signs Date Time Temp Pulse Resp B/P (MAP) Pulse Ox O2 Delivery O2 Flow Rate FiO2 07/12/20 16:27 98.0 71 18 137/56 97 Room Air I&O- Last 24 Hours up to 6 AM 07/12/20 06:00 Intake Total 2945 ml Output Total 2300 ml Balance 645 ml Laboratory Data 24H LABS Laboratory Tests 2 07/11/20 17:04: Immature Granulocyte % (Auto) 1.3, Neutrophils (%) (Auto) 81.3H, Lymphocytes (%) (Auto) 5.6L, Monocytes (%) (Auto) 9.2H, Eosinophils (%) (Auto) 1.9, Basophils (%) (Auto) 0.7, Neutrophils # (Auto) 7.6, Lymphocytes # (Auto) 0.5L, Monocytes # (Auto) 0.9H, Eosinophils # (Auto) 0.2, Basophils # (Auto) 0.1, Nucleated Red Blood Cells % (auto) 0.0 07/12/20 06:31: Immature Granulocyte % (Auto) 1.2, Neutrophils (%) (Auto) 77.9H, Lymphocytes (%) (Auto) 6.4L, Monocytes (%) (Auto) 10.6H, Eosinophils (%) (Auto) 3.1H, Basophils (%) (Auto) 0.8, Neutrophils # (Auto) 8.0, Lymphocytes # (Auto) 0.7L, Monocytes # (Auto) 1.1H, Eosinophils # (Auto) 0.3, Basophils # (Auto) 0.1, Nucleated Red Blood Cells % (auto) 0.0, Prothrombin Time 28.6H, Prothromb Time International Ratio 2.62, Anion Gap 5L, Glomerular Filtration Rate 54.3, Calcium Level 8.5L, Total Bilirubin 0.3, Aspartate Amino Transf (AST/SGOT) 10, Alanine Aminotransferase (ALT/SGPT) 7L, Alkaline Phosphatase 70, Total Protein 6.6, Albumin 3.0L, Albumin/Globulin Ratio 0.8 CBC/BMP Laboratory Tests 07/11/20 17:04 07/12/20 06:31 BROOKE GERBER MD Jul 12, 2020 17:03
[2020-07-12] MEDS ORDERED: FUROSEMIDE 20MG/2ML VIAL (J1940) IV ONE (19:00)
[2020-07-12 20:09] LABS: BASO # 0.1 10^3/uL (0.0-0.2); BASO % 0.7 % (0.0-1.0); EOS # 0.3 10^3/uL (0.0-0.5); HEMOGLOBIN 8.2 g/dl (13.5-17.5); LYMPH # 0.6 10^3/uL (1.5-5.0); LYMPH % 5.3 % (24.0-44.0); MEAN CORPUSCULAR HEMOGLOBIN 32.8 pg (27.0-33.0); MEAN CORPUSCULAR HGB CONC 31.5 g/dl (32.0-36.5); MONO # 1.2 10^3/uL (0.0-0.8); MONO % 11.9 % (2.0-8.0); NEUTROPHILS # 8.2 10^3/uL (1.5-8.5); PLATELET COUNT, AUTOMATED 255 10^3/uL (150-450); WHITE BLOOD COUNT 10.4 10^3/uL (4.0-10.0)
[2020-07-12] MEDS: SODIUM CHLORIDE NASAL 0.65% SPRAY BTL (OCEAN) SCH (21:00)
[2020-07-12] MEDS: FOLIC ACID 1 MG TAB PO SCH (21:03)
[2020-07-12] MEDS: ATORVASTATIN 20 MG TAB PO SCH (21:03)
[2020-07-13 06:00] VITALS: BP 134/62
[2020-07-13 06:18] LABS: BASO # 0.1 10^3/uL (0.0-0.2); BASO % 0.8 % (0.0-1.0); EOS # 0.4 10^3/uL (0.0-0.5); EOS % 3.4 % (0.0-3.0); HEMATOCRIT 25.6 % (42.0-52.0); LYMPH # 0.7 10^3/uL (1.5-5.0); LYMPH % 6.6 % (24.0-44.0); MEAN CORPUSCULAR HEMOGLOBIN 31.7 pg (27.0-33.0); MEAN CORPUSCULAR HGB CONC 31.3 g/dl (32.0-36.5); MEAN CORPUSCULAR VOLUME 101.6 fl (80.0-96.0); MONO # 1.2 10^3/uL (0.0-0.8); MONO % 11.5 % (2.0-8.0); NEUTROPHILS % 76.7 % (36.0-66.0); PLATELET COUNT, AUTOMATED 246 10^3/uL (150-450); RED BLOOD COUNT 2.52 10^6/uL (4.30-6.10); WHITE BLOOD COUNT 10.4 10^3/uL (4.0-10.0)
[2020-07-13 06:26] LABS: INR 2.43
[2020-07-13 06:46] LABS: ALBUMIN 2.9 GM/DL (3.2-5.2); BILIRUBIN,TOTAL 0.4 MG/DL (0.2-1.0); CALCIUM LEVEL 8.4 MG/DL (8.8-10.2); CREATININE FOR GFR 1.42 MG/DL (0.70-1.30); GLOMERULAR FILTRATION RATE 51.2 (>42); MAGNESIUM LEVEL 2.6 MG/DL (1.8-2.4); POTASSIUM SERUM 3.7 MEQ/L (3.5-5.1); TOTAL PROTEIN 6.1 GM/DL (6.4-8.2)
[2020-07-13] MEDS: TIOTROPIUM INHALER/CAPSULE (SPIRIVA) INH SCH (07:16)
[2020-07-13] MEDS: ADVAIR HFA 115/21MCG INHALER INH SCH ×2 (07:16→20:00)
[2020-07-13] MEDS: MIRALAX *UNIT DOSE* 17GM PACKET PO SCH (08:41)
[2020-07-13] MEDS: DOCUSATE SODIUM 100MG CAPSULE PO SCH ×2 (08:43→20:26)
[2020-07-13] MEDS: FERROUS SULFATE 325MG TAB PO SCH (08:43)
[2020-07-13] MEDS: SPIRONOLACTONE 25 MG TAB PO SCH (08:43)
[2020-07-13] MEDS: POTASSIUM CHLORIDE 10 MEQ SR TABLET PO SCH ×2 (08:43→20:27)
[2020-07-13] MEDS: OMEPRAZOLE 20 MG CAP PO SCH ×2 (08:44→20:27)
[2020-07-13] MEDS: CALCIUM/VITAMIN D 500 MG TAB PO SCH (08:44)
[2020-07-13] MEDS: bisoproloL fumarate 5 MG TAB PO SCH (08:45)
[2020-07-13] MEDS: TORSEMIDE 20 MG TAB PO SCH ×2 (08:45→16:35)
[2020-07-13] MEDS: allopurinoL 300 MG TAB PO SCH (08:45)
[2020-07-13] MEDS: SINEMET 25-100 MG TAB PO SCH ×3 (08:45→20:27)
[2020-07-13] MEDS: SODIUM CHLORIDE NASAL 0.65% SPRAY BTL (OCEAN) SCH ×2 (08:50→20:27)
--- NOTE | 2020-07-13 13:30 | IPNPDOC ---
Text Note Date of Service The patient was seen on 07/13/20. NOTE Subjective: Patient was seen and examined this morning at bedside. Says he is doing well he hasn't had any further episodes of nosebleeds. There is no acute overnight events reported to me. Hemoglobin appears stable and hasn't dropped further. Objective: Constitutional: Awake and alert, in no apparent distress ENT: Sclera are clear. Mucosa is moist. Dried blood in nares no active bleeding. Respiratory: Lungs CTA bilaterally. No respiratory distress. Cardiovascular: Mechanical murmur has aortic valve replacement. Regular rate and rhythm. Gastrointestinal: Abdomen is soft, non distended, non tender Musculoskeletal: 2+ pitting lower extremity edema patient tells me this is his baseline Neurologic: No focal neurological deficit. Mental Status: A&O x3, normal affect Assessment/plan: 80-year-old male with a history of coronary artery disease status post stenting, mechanical aortic valve on warfarin, CHF, hypertension, COPD, GERD, BLANE, as well as history of GI bleeding, presents with a 12 hour history of intractable epistaxis, with resulting acute blood loss anemia. His bleeding was cauterized by ENT. Unfortunately patient was also found to have hemolytic anemia. # hemolytic anemia: etiology unclear - Obtained stat echo and discussed results with Dr. Ndiaye it doesn't appear likely that the mechanical valve is causing the hemolysis. Recommended obtaining blood culture although there is no suspicion of endocarditis clinically as a precaution. - I consulted Dr. Champagne hematology can appreciate any recommendations. Reticulocyte count elevated. # Acute blood loss anemia 2/2 epistaxis - resolved spontaneously in ER - Hgb 7.6 after 4 units up to 8.0. Concern for hemylysis. - patient taken to ENT clinic [facility] nasal septum packed cauterized and packed with gel foam. follow up with ENT 1 month - saline nasal spray two sprays BID # AMINA: Stable likely prerenal due to acute blood loss anemia, reduced PO intake. Hold diuretics. # HFpEF: Not in exacerbation. EF of 75% on 04/29/2020. RVSP 65. resume home meds, bisoprolol. resume torsemide, spironolactome. has f/u Dr. Barriga 2 wks # Mechanical aortic valve: Goal 2.5-3.5. resume warfarin. Appears to be functioning well from echo read by Dr. Ndiaye # Recent GIB: resume home dose omeprazole 40 mg bid # DVT ppx: warfarin A Desi Hospitalist Bakari WALLACE I+O Bakari WALLACE I+O Laboratory Tests 07/12/20 19:50 07/13/20 05:42 Vital Signs Date Time Temp Pulse Resp B/P (MAP) Pulse Ox O2 Delivery O2 Flow Rate FiO2 07/13/20 08:45 76 125/52 07/13/20 06:00 98.0 20 98 Room Air I&O- Last 24 Hours up to 6 AM 07/13/20 06:00 Intake Total 2730 ml Output Total 1825 ml Balance 905 ml ANJALI NIX MD Jul 13, 2020 13:30
--- NOTE | 2020-07-13 13:39 | ECHO ---
DATE OF PROCEDURE: 07/13/2020 Age: 80 Gender: Male Height: 72 inches Weight: 249 pounds Body surface area: 2.34 m2 PATIENT LOCATION: Inpatient, [facility] Room 4222. REFERRING PHYSICIAN: Colton Weeks MD. INDICATION: Hemolytic anemia. Prosthetic aortic valve. MEASUREMENTS: 2D Measurements: RV 5.6 cm MV 5.4 cm Septum 1.4 cm Posterior wall 1.4 cm Aortic Root 3.4 cm LA 6.2 cm LVEF 75% Doppler Measurements: AV 3.44 m/s LVOT 0.94 m/s Mean AV systolic gradient 25 mmHg Dimensionless index 0.29 MV-E 99 Early mitral deceleration time 140 msec E prime medial 6.7, E prime lateral 14.3 Average E/E prime ratio 9/PCWP - 13 mmHg PV 1.0 m/s Pulmonary artery acceleration time 95 msec RVSP 56 mmHg IVC 2.5 cm COMMENTS: Underlying atrial fibrillation with controlled ventricular response. No intraventricular conduction disturbance. M-mode and two-dimensional echocardiography was performed with pulse, continuous wave, color flow, and tissue Doppler studies. Mild concentric left ventricular hypertrophy with hyperkinetic wall motion. Grossly dilated left atrium with current estimated mean left atrial pressure upper limits of normal. Prominently dilated right heart chambers with right ventricular free wall hypokinesis and at least moderately severe pulmonary hypertension., Prominently dilated IVC with reduced respiratory collapse in keeping with elevated central venous pressure. Normal aortic dimensions. Normal appearing mechanical prosthetic aortic valve without insufficiency. Degenerative changes of the mitral valve apparatus with adequate leaflet excursion and no posterior systolic buckling and mild mitral insufficiency. Normal appearing tricuspid valve with [id number] insufficiency. No apparent intracardiac mass or pericardial effusion. No change from study performed April 2020. A preliminary report of this study will be relayed directly to Dr. Weeks. CLEMENT
[2020-07-13 14:00] VITALS: BP 126/52
[2020-07-13 15:16] LABS: CREATININE,RANDOM URINE 55.8 MG/DL
[2020-07-13] MEDS ORDERED: WARFARIN SOD 5MG TAB PO SCH (17:00)
--- NOTE | 2020-07-13 18:51 | CR.PDOC ---
General Date of Consultation: Jul 13, 2020 Referring Provider: ANJALI NIX MD Attending Physician: ANJALI NIX MD Consultation REASON FOR CONSULTATION/CHIEF COMPLAINT: Anemia HISTORY OF PRESENT ILLNESS: 80-year-old, currently admitted for epistaxis and anemia. On admission, hemoglobin level 7.6. Transfused 4 units of packed red cell since admission with minimal improvement in hemoglobin level with most recent one today at 8G/DL. Hematology consulted for above. Patient was previously on follow-up with Dr. Silvana Rees deemed to have refractory anemia, etiology uncertain, but deemed likely multifactorial, transfusion dependent from . 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 Peripheral smear review 07/13/2020 showed moderate anisopoikilocytosis and spherocytes. ALLERGIES: Please see below. HOME MEDICATIONS: Please see below. PAST MEDICAL HISTORY: 1. Mechanical aortic valve on warfarin 2. CAD s/p stent 3. CHF 4. Hypertension 5. COPD 6. GERD 7. BLANE 8. History of GIB PAST SURGICAL HISTORY: 1. Coronary artery stent x1 2. Aortic valve replacement (mechanical) 3. Tonsillectomy 4. Adenoidectomy 5. Bilateral cataract surgery FAMILY HISTORY: Mother had bladder cancer. Maternal grandmother had an unknown type of cancer. SOCIAL HISTORY: . Former smoker. Occasional beer. REVIEW OF SYSTEMS: CONSTITUTIONAL: No fever. No night sweats. No weight loss. HEENT: No change in eyesight. CARDIOVASCULAR: No chest pain. Chronic bilateral lower extremity edema. RESPIRATORY: No shortness of breath. Chronic cough. GENITOURINARY: No urinary problems. MUSCULOSKELETAL: Reports low back pain. GASTROINTESTINAL: No abdominal pain. No nausea. No vomiting per. No melena. No rectal bleeding. SKIN: Easy bruising. NEUROLOGICAL: No headaches. No dizziness. HEMATOLOGIC/LYMPHATIC: No bleeding issues except for easy bruising. PHYSICAL EXAMINATION: VITAL SIGNS: Please see below. GENERAL APPEARANCE: Alert, comfortably seated on chair. Not in distress. HEENT: Pinkish conjunctiva, anicteric. RESPIRATORY: Fair air entry. No rales, rhonchi, no weighs. CARDIOVASCULAR: S1 S2 regular. ABDOMEN: Soft, nontender, no guarding. No palpable masses. EXTREMITIES: Bilateral lower extremity edema. Ecchymosis on upper extremities from presumably from blood drawing. NEUROLOGICAL: Alert. Answered questions appropriately. PSYCHIATRIC: Normal mood. LABORATORY DATA: Please see below. ASSESSMENT/PLAN: 80-year-old with chronic anemia since 2013 likely related to blood loss. Episodes of transfusion dependency. 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 Also has mild renal insufficiency. Peripheral smear review 07/13/2020 showed moderate anisopoikilocytosis and spherocytes. No definite evidence of hemolysis but will obtain haptoglobin and ARNEL. Would refer to GI service to rule out GI bleeding. Check soluble transferrin receptor, SPEP and serum immunofixation. Bone marrow aspiration and biopsy discussed with patient to rule out MDS. If patient is deemed stable for discharge shortly, will arrange workup of anemia as an outpatient. At this time, patient only needs blood transfusion support as needed. Thank you for referring Mr. Ronal Roy. Vital Signs/I&O Vital Signs Date Time Temp Pulse Resp B/P (MAP) Pulse Ox O2 Delivery O2 Flow Rate FiO2 07/13/20 14:00 97.3 63 20 126/52 (76) 95 Room Air I&O- Last 24 Hours up to 6 AM 07/13/20 06:00 Intake Total 2730 ml Output Total 1825 ml Balance 905 ml Laboratory Data Labs 24H Laboratory Tests 2 07/12/20 19:50: Immature Granulocyte % (Auto) 1.1, Neutrophils (%) (Auto) 78.0H, Lymphocytes (%) (Auto) 5.3L, Monocytes (%) (Auto) 11.9H, Eosinophils (%) (Auto) 3.0, Basophils (%) (Auto) 0.7, Neutrophils # (Auto) 8.2, Lymphocytes # (Auto) 0.6L, Monocytes # (Auto) 1.2H, Eosinophils # (Auto) 0.3, Basophils # (Auto) 0.1, Nucleated Red Blood Cells % (auto) 0.0 07/13/20 05:42: Immature Granulocyte % (Auto) 1.0, Neutrophils (%) (Auto) 76.7H, Lymphocytes (%) (Auto) 6.6L, Monocytes (%) (Auto) 11.5H, Eosinophils (%) (Auto) 3.4H, Basophils (%) (Auto) 0.8, Neutrophils # (Auto) 8.0, Lymphocytes # (Auto) 0.7L, Monocytes # (Auto) 1.2H, Eosinophils # (Auto) 0.4, Basophils # (Auto) 0.1, Nucleated Red Blood Cells % (auto) 0.0, Reticulocyte # (auto) 84.0H, Differential Slide Review Report, Peripheral Blood Smear Path Consult PERIPHERAL SMEAR, Percent Reticulocyte Count 3.3H, Reticulocyte Hemoglobin Equivalent 33.5, Prothrombin Time 27.0H, Prothromb Time International Ratio 2.43, Anion Gap 6L, Glomerular Filtration Rate 51.2, Calcium Level 8.4L, Magnesium Level 2.6H, Total Bilirubin 0.4, Aspartate Amino Transf (AST/SGOT) 12, Alanine Aminotransferase (ALT/SGPT) 8L, Alkaline Phosphatase 69, Lactate Dehydrogenase 200, NJ-Xdj-R-Type Natriuretic Peptide 2569H, Total Protein 6.1L, Albumin 2.9L, Albumin/Globulin Ratio 0.9 07/13/20 14:19: Urine Random Creatinine 55.8, Urine Random Sodium 57 CBC/BMP Laboratory Tests 07/12/20 19:50 07/13/20 05:42 Microbiology Microbiology 07/13/20 Blood Culture, Received Pending 07/13/20 Blood Culture, Received Pending Allergies Coded Allergies: No Known Allergies (Unverified , 08/20/18) Home Medications Scheduled Allopurinol (Zyloprim) 300 Mg Tablet, 300 MG PO DAILY, (Reported) Atorvastatin Calcium (Atorvastatin Calcium) 20 Mg Tablet, 20 MG PO QHS, (Reported) Bisoprolol Fumarate (Bisoprolol Fumarate) 5 Mg Tablet, 5 MG PO DAILY, (Reported) Calcium Carbonate/Vitamin D3 (Calcium 600-Vit D3 400 Tablet) 1 Tab Tab, 1 TAB PO DAILY, (Reported) Carbidopa/Levodopa (Carbidopa-Levodopa 25-100 Tab) 1 Each Tablet, 1 TAB PO TID, (Reported) Ferrous Sulfate (Ferrous Sulfate) 325 Mg Tab, 325 MG PO DAILY, (Reported) Folic Acid (Folic Acid) 1 Mg Tab, 1 MG PO QPM, (Reported) Omeprazole (Omeprazole) 40 Mg Capsule.dr, 40 MG PO BID, (Reported) Polyethylene Glycol 3350 (Miralax) 1 Pow Pow, 1 DOSE PO DAILY, (Reported) Potassium Chloride (Potassium Chloride) 10 Meq Tab.er.prt, 10 MEQ PO BID, (Reported) Salmeterol/Fluticasone (Advair 250-50 Diskus) 1 Each Blst.w.dev, 1 PUFF INH BID, (Reported) Spironolactone (Spironolactone) 25 Mg Tablet, 25 MG PO DAILY, (Reported) Tiotropium [place] (Spiriva Respimat) 4 Gm Mist.inhal, 1.25 MCG INH DAILY, (Reported) Torsemide (Torsemide) 20 Mg Tablet, 40 MG PO BID, (Reported) Ubidecarenone (Co Q-10) 200 Mg Capsule, 200 MG PO DAILY, (Reported) Warfarin Sodium (Warfarin Sodium) 3 Mg Tablet, 6 MG PO 2XW, (Reported) mon,and thur Warfarin Sodium (Warfarin Sodium) 5 Mg Tablet, 5 MG PO 5XW, (Reported) sun,sun,sun,sat,sun Scheduled PRN Albuterol Sulfate (Proair Hfa) 8.5 Gm Hfa.aer.ad, 2 PUFF INH Q4H PRN for SOB/WHEEZING, (Reported) Carboxymethylcellulose Sodium (Refresh Tears) 0.5 % Aramis, 1 DROP OU DAILY PRN for DRY EYES, (Reported) Fluticasone Propionate (Flonase Allergy Relief) 50 Mcg/Act Spr, 100 MCG NA DAILY PRN for NASAL CONGESTION, (Reported) Nitroglycerin (Nitroglycerin) 0.4 Mg Tab.subl, 0.4 MG SL NITRO PRN for CHEST PAIN, (Reported) ADDIS ALEXANDER MD Jul 13, 2020 18:51
[2020-07-13] MEDS: ATORVASTATIN 20 MG TAB PO SCH (20:26)
[2020-07-13] MEDS: FOLIC ACID 1 MG TAB PO SCH (20:26)
[2020-07-13 22:00] VITALS: BP 133/55
[2020-07-14 06:00] VITALS: BP 135/59
[2020-07-14] MEDS: TIOTROPIUM INHALER/CAPSULE (SPIRIVA) INH SCH (07:21)
[2020-07-14] MEDS: ADVAIR HFA 115/21MCG INHALER INH SCH (07:21)
[2020-07-14 07:25] LABS: IRON (FE) 24 UG/DL (65-175); PERCENT SATURATION 8.5 % (19.7-50.0); TOTAL IRON BINDING CAPACITY 281 UG/DL (250-450)
[2020-07-14 07:49] LABS: HEMATOCRIT 24.6 % (42.0-52.0); HEMOGLOBIN 7.7 g/dl (13.5-17.5); MEAN CORPUSCULAR HEMOGLOBIN 32.1 pg (27.0-33.0); MEAN CORPUSCULAR HGB CONC 31.3 g/dl (32.0-36.5); MEAN CORPUSCULAR VOLUME 102.5 fl (80.0-96.0); PLATELET COUNT, AUTOMATED 231 10^3/uL (150-450); WHITE BLOOD COUNT 9.4 10^3/uL (4.0-10.0)
[2020-07-14 07:56] LABS: BLOOD UREA NITROGEN 30 MG/DL (7-18); CALCIUM LEVEL 7.9 MG/DL (8.8-10.2); CARBON DIOXIDE LEVEL 33 MEQ/L (21-32); CHLORIDE LEVEL 106 MEQ/L (98-107); CREATININE FOR GFR 1.44 MG/DL (0.70-1.30); GLOMERULAR FILTRATION RATE 50.4 (>42); GLUCOSE, FASTING 99 MG/DL (70-100); POTASSIUM SERUM 3.6 MEQ/L (3.5-5.1); SODIUM LEVEL 143 MEQ/L (136-145)
[2020-07-14 08:22] LABS: FERRITIN 51 NG/ML (26-388)
[2020-07-14] MEDS: SODIUM CHLORIDE NASAL 0.65% SPRAY BTL (OCEAN) SCH (09:06)
[2020-07-14] MEDS: OMEPRAZOLE 20 MG CAP PO SCH (09:06)
[2020-07-14] MEDS: FERROUS SULFATE 325MG TAB PO SCH (09:06)
[2020-07-14] MEDS: MIRALAX *UNIT DOSE* 17GM PACKET PO SCH (09:06)
[2020-07-14] MEDS: CALCIUM/VITAMIN D 500 MG TAB PO SCH (09:06)
[2020-07-14] MEDS: SINEMET 25-100 MG TAB PO SCH (09:07)
[2020-07-14] MEDS: POTASSIUM CHLORIDE 10 MEQ SR TABLET PO SCH (09:07)
[2020-07-14] MEDS: DOCUSATE SODIUM 100MG CAPSULE PO SCH (09:07)
[2020-07-14] MEDS: TORSEMIDE 20 MG TAB PO SCH (09:07)
[2020-07-14] MEDS: allopurinoL 300 MG TAB PO SCH (09:07)
[2020-07-14] MEDS: SPIRONOLACTONE 25 MG TAB PO SCH (09:07)
[2020-07-14 09:09] VITALS: BP 123/48
[2020-07-14] MEDS: bisoproloL fumarate 5 MG TAB PO SCH (09:09)
[2020-07-14 11:12] LABS: ALBUMIN 3.03 GM/DL (3.29-5.55); ALBUMIN % 50.5 % (55.8-66.1); ALPHA-1-GLOBULIN % 7.1 % (2.9-4.9); ALPHA-1-GLOBULINS 0.43 GM/DL (0.17-0.41); ALPHA-2-GLOBULINS 0.66 GM/DL (0.42-0.99); BETA-1-GLOBULINS 0.43 GM/DL (0.28-0.60); BETA-1-GLOBULINS % 7.2 % (4.7-7.2); BETA-2-GLOBULINS 0.52 GM/DL (0.19-0.55); BETA-2-GLOBULINS % 8.6 % (3.2-6.5); GAMMA GLOBULIN % 15.6 % (11.1-18.8); GAMMA GLOBULINS 0.94 GM/DL (0.65-1.58)
--- NOTE | 2020-07-14 14:06 | DS.PDOC ---
Discharge Summary General Date of Admission Jul 12, 2020 at 16:36 Date of Discharge 07/14/20 Discharge Summary PROCEDURES PERFORMED DURING STAY: [None]. ADMITTING/DISCHARGE DIAGNOSES: Acute blood loss anemia secondary to epistaxis Acute kidney injury COMPLICATIONS/CHIEF COMPLAINT: Acute Blood Loss Anemia, Epistaxis. HISTORY OF PRESENT ILLNESS: From admitting physician H&P: 80-year-old male with a history of coronary artery disease status post stenting, mechanical aortic valve on warfarin, CHF, hypertension, COPD, GERD, BLANE, as well as history of GI bleeding, presents with a 12 hour history of intractable epistaxis. She was last seen in the ER a week ago for the same complaint. The patient and reports significant epistaxis flowing down the back of the throat, draining staining his clothing. Patient denies chest pain, shortness of breath, nausea, vomiting, diarrhea, lightheadedness, weakness. Found to be anemic in the ER, hemoglobin 7.6, down from a recent hemoglobin check. According to patient, which was approximately 10. Epistaxis resolved spontaneously in the ED. Found to have a [place]pton pratherapeutic INR of 3.5. As reviewed, temperature 3097.6. Heart rate 62. Respiratory 20. Blood pressure 101 44. Pulse ox 98% on room air. Labs reviewed. WBC 9.4. Hemoglobin 7.6. Hematocrit 25.0. Platelets 224. Sodium 140. K+ 4.0. Creatinine 1.50 (baseline below 1.0). Patient will be admitted to hospitalist service for observation secondary to recent epistaxis requiring blood transfusion. Patient was ordered 1 unit of packed red blood cells in the ER. HOSPITAL COURSE: 80-year-old male with a history of coronary artery disease status post stenting, mechanical aortic valve on warfarin, CHF, hypertension, COPD, GERD, BLAEN, as well as history of GI bleeding, presents with a 12 hour history of intractable epistaxis, with resulting acute blood loss anemia. His bleeding was cauterized by ENT. Unfortunately patient was also found to have hemolytic anemia. # Chronic anemia: etiology unclear. Consulted Dr. Champagne hematology. No definitive evidence of hemolysis. Hemoglobin has been stable now. Possibly iron deficiency could be related to blood loss. Patient to follow-up with Dr. Champagne [employer] after discharge to complete workup of anemia as an outpatient possibly may need bone marrow aspiration biopsy to rule out MDS. Referral to GI for a PCP for possible GI bleed. Obtained stat echo and discussed results with Dr. Ndiaye it doesn't appear likely that the mechanical valve is causing the hemolysis. Recommended obtaining blood culture although there is no suspicion of endocarditis clinically as a precaution and these have been negative to date. # Acute blood loss anemia 2/2 epistaxis. resolved spontaneously in ER. patient taken to ENT clinic [facility] nasal septum packed cauterized and packed with gel foam. follow up with ENT 1 month # AMINA: Stable likely prerenal due to acute blood loss anemia, reduced PO intake. Encouraged more oral hydration. # HFpEF: Not in exacerbation. EF of 75% on 04/29/2020. RVSP 65. resume home meds, bisoprolol. resume torsemide, spironolactome. has f/u Dr. Barriga 2 wks as scheduled. # Mechanical aortic valve: Goal 2.5-3.5. resume warfarin. Appears to be functioning well from echo read by Dr. Ndiaye # Recent GIB: resume home dose omeprazole 40 mg bid DISCHARGE MEDICATIONS: Please see below. ALLERGIES: Please see below. PHYSICAL EXAMINATION ON DISCHARGE: VITAL SIGNS: Please see below. Constitutional: Awake and alert, in no apparent distress ENT: Sclera are clear. Mucosa is moist. Dried blood in nares no active bleeding. Respiratory: Lungs CTA bilaterally. No respiratory distress. Cardiovascular: Mechanical murmur has aortic valve replacement. Regular rate and rhythm. Gastrointestinal: Abdomen is soft, non distended, non tender Musculoskeletal: 2+ pitting lower extremity edema patient tells me this is his baseline Neurologic: No focal neurological deficit. Mental Status: A&O x3, normal affect LABORATORY DATA: Please see below. IMAGING: See chart PROGNOSIS: Fair ACTIVITY: [As tolerated]. DIET: Low-salt diet DISPOSITION: Home DISCHARGE INSTRUCTIONS: Please follow up with your primary care physician within 1 week from discharge. If you do not have one, please follow up with us to schedule an appointment. Please keep all of your follow up appointments. Please call central to book your appointments with hospital specialists. Please take all your medications as prescribed. Please call/come to Clinic or go to the Emergency Department if - Temp >101, intractable Nausea/Vomiting, Diarrhea, Mouth sores, Headaches, Altered mental status, Seizures, sudden onset of swelling, bleeding, shortness of breath or chest pain. ITEMS TO FOLLOWUP ON ON OUTPATIENT: Follow-up with PCP within 5 days of discharge Follow-up with [employer] Dr. Champagne Follow-up with ENT in one month DISCHARGE CONDITION: [Stable]. TIME SPENT ON DISCHARGE: 45 minutes. Vital Signs/I&Os Vital Signs Date Time Temp Pulse Resp B/P (MAP) Pulse Ox O2 Delivery O2 Flow Rate FiO2 07/14/20 09:09 69 123/48 07/14/20 06:00 98.2 17 95 Room Air I&O- Last 24 Hours up to 6 AM 07/14/20 06:00 Intake Total 1580 ml Output Total 3425 ml Balance -1845 ml Laboratory Data Labs 24H Laboratory Tests 2 07/13/20 14:19: Urine Random Creatinine 55.8, Urine Random Sodium 57 07/14/20 06:38: Nucleated Red Blood Cells % (auto) 0.0 07/14/20 06:40: Anion Gap 4L, Glomerular Filtration Rate 50.4, Calcium Level 7.9L, Iron Level 24L, Total Iron Binding Capacity 281, Transferrin % Saturation 8.5L, Ferritin 51, Total Protein (PEP) 6.0L, Albumin (%) 50.5L, Dpwdd-4-Xvflnmbmc (%) 7.1H, Anvfy-7-Zokjleael (%) 11.0, Gamma Globulins (%) 15.6, Gvyym-5-Kdtitalmn 0.43H, A nbwe-5-Njwufcute 0.66, Gamma Globulins 0.94, Protein Electrophoresis Interpret SEE COMMENT, Albumin (PEP) 3.03L, Gbwd-8-Ijejcueb 0.43, Awpi-9-Ehhbnlrp (%) 7.2, Nkwl-3-Sxxflbcv 0.52, Jkgw-9-Jvonfqhu (%) 8.6H, Serum PEP Pathologist Review REV'D BY Roby CARDENAS, Immunofixation Pathologist REV'D BY Roby CARDENAS, Immunotype (Immunosubtraction) SEE COMMENT CBC/BMP Laboratory Tests 07/14/20 06:38 07/14/20 06:40 Microbiology Microbiology 07/13/20 Blood Culture - Preliminary, Resulted No growth after 24 hours . All specim... 07/13/20 Blood Culture - Preliminary, Resulted No growth after 24 hours . All specim... Discharge Medications Scheduled Allopurinol (Zyloprim) 300 Mg Tablet, 300 MG PO DAILY, (Reported) Atorvastatin Calcium (Atorvastatin Calcium) 20 Mg Tablet, 20 MG PO QHS, (Reported) Bisoprolol Fumarate (Bisoprolol Fumarate) 5 Mg Tablet, 5 MG PO DAILY, (Reported) Calcium Carbonate/Vitamin D3 (Calcium 600-Vit D3 400 Tablet) 1 Tab Tab, 1 TAB PO DAILY, (Reported) Carbidopa/Levodopa (Carbidopa-Levodopa 25-100 Tab) 1 Each Tablet, 1 TAB PO TID, (Reported) Ferrous Sulfate (Ferrous Sulfate) 325 Mg Tab, 325 MG PO DAILY, (Reported) Folic Acid (Folic Acid) 1 Mg Tab, 1 MG PO QPM, (Reported) Omeprazole (Omeprazole) 40 Mg Capsule.dr, 40 MG PO BID, (Reported) Polyethylene Glycol 3350 (Miralax) 1 Pow Pow, 1 DOSE PO DAILY, (Reported) Potassium Chloride (Potassium Chloride) 10 Meq Tab.er.prt, 10 MEQ PO BID, (Reported) Salmeterol/Fluticasone (Advair 250-50 Diskus) 1 Each Blst.w.dev, 1 PUFF INH BID, (Reported) Spironolactone (Spironolactone) 25 Mg Tablet, 25 MG PO DAILY, (Reported) Tiotropium [place] (Spiriva Respimat) 4 Gm Mist.inhal, 1.25 MCG INH DAILY, (Reported) Torsemide (Torsemide) 20 Mg Tablet, 40 MG PO BID, (Reported) Ubidecarenone (Co Q-10) 200 Mg Capsule, 200 MG PO DAILY, (Reported) Warfarin Sodium (Warfarin Sodium) 3 Mg Tablet, 6 MG PO 2XW, (Reported) mon,and thur Warfarin Sodium (Warfarin Sodium) 5 Mg Tablet, 5 MG PO 5XW, (Reported) tue,wed,fri,sat,sun Scheduled PRN Albuterol Sulfate (Proair Hfa) 8.5 Gm Hfa.aer.ad, 2 PUFF INH Q4H PRN for SOB/WHEEZING, (Reported) Carboxymethylcellulose Sodium (Refresh Tears) 0.5 % Aramis, 1 DROP OU DAILY PRN for DRY EYES, (Reported) Fluticasone Propionate (Flonase Allergy Relief) 50 Mcg/Act Spr, 100 MCG NA DAILY PRN for NASAL CONGESTION, (Reported) Nitroglycerin (Nitroglycerin) 0.4 Mg Tab.subl, 0.4 MG SL NITRO PRN for CHEST PAIN, (Reported) Allergies Coded Allergies: No Known Allergies (Unverified , 08/20/18) ANJALI NIX MD Jul 14, 2020 14:06
[2020-07-16 17:12] LABS: SOLUBLE TRANSFERRIN RECEPTOR 28.7 nmol/L (12.2-27.3)
== END 2020-07-14 14:57 | disposition home or self-care (01) | DRG 812 ==
LOC: M ED 03:48 → M ED INP 09:41 → ENRESERVDT 10:32 → ENRESERVTM 10:32 → M MSPAV 11:34 → OBSVTOIN 07-12 16:36
PROVIDERS: ADMIT Family Medicine; ATTEND Family Medicine
PROC: 30233N1 Transfusion of Nonautologous Red Blood Cells into Peripheral Vein, Percutaneous Approach (ICD-10-PCS; principal; 2020-07-12)
DX: D62 Acute posthemorrhagic anemia (principal); I50.32 Chronic diastolic (congestive) heart failure; N17.9 Acute kidney failure, unspecified; R04.0 Epistaxis; I25.10 Atherosclerotic heart disease of native coronary artery without angina pectoris; Z95.2 Presence of prosthetic heart valve; Z79.01 Long term (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 of anticoagulants; J44.9 Chronic obstructive pulmonary disease, unspecified; I11.0 Hypertensive heart disease with heart failure; K21.9 Gastro-esophageal reflux disease without esophagitis; G47.33 Obstructive sleep apnea (adult) (pediatric); Z79.899 Other long term (current) drug therapy; Z98.41 Cataract extraction status, right eye; Z98.42 Cataract extraction status, left eye; Z87.891 Personal history of nicotine dependence

== ENCOUNTER → 2020-07-19 | Outpatient (REF) | payer MEDICARE ==
[~2020-07-19] MED LIST changes: +ONETAB9 PO; +TORS10TA3 PO
[2020-07-19 18:59] LABS: PERCENT SATURATION 18.8 % (19.7-50.0)
== END ==
LOC: M LAB REF 16:57
PROVIDERS: ATTEND Internal Medicine Nephrology
DX: D50.0 Iron deficiency anemia secondary to blood loss (chronic) (principal)

== ENCOUNTER → 2020-07-20 | Outpatient (REF) | payer MEDICARE ==
[2020-07-20 13:29] LABS: INR 2.54; PROTHROMBIN TIME 27.9 SECONDS (12.5-14.3)
== END ==
LOC: M SHH 12:59
PROVIDERS: ATTEND Physician Assistant
DX: I48.21 Permanent atrial fibrillation (principal); Z79.01 Long term (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 of anticoagulants

== ENCOUNTER 2020-07-29 12:12 | Outpatient (CLI) | payer MEDICARE ==
[~2020-07-29] VITALS: Ht 182.9 cm; Wt 114.3 kg
[~2020-07-29 12:12] MED LIST changes: +ALBUTEROL SULFATE 2.5 MG/0.5 ML INH NEB SOLN INH PRN; +CARB-89 PO; +EPINEPHrine INJ 1 MG/ML 1ML AMP IM PRN; -SINE25TA5 PO; +diphenhydrAMINE 50MG/ML VIAL (J1200) IV PRN; +methylPREDNISolone 125MG 2ML VIAL IV PRN
[2020-07-29] MEDS ORDERED: diphenhydrAMINE 50MG/ML VIAL (J1200) IV ONE (12:30)
[2020-07-29] MEDS ORDERED: FERRIC CARBOXYMALTOSE INJ 750 MG, VIAL MATE ADAPTER 1 EACH in NS 250 ML IV ONE (12:30)
[2020-07-29] MEDS ORDERED: NS 1,000 ML IV SCH (12:30)
[2020-07-29 12:37] VITALS: BP 137/64
[2020-07-29 13:55] VITALS: BP 137/65
== END 2020-07-29 13:55 | disposition home or self-care (01) ==
LOC: M INFU 12:12
PROVIDERS: ATTEND Internal Medicine Nephrology
DX: D50.9 Iron deficiency anemia, unspecified (principal)
CPT/HCPCS: 96365; J1439

== ENCOUNTER → 2020-08-03 | Outpatient (REF) | payer MEDICARE ==
[~2020-08-03] MED LIST changes: -ALBUTEROL SULFATE 2.5 MG/0.5 ML INH NEB SOLN INH PRN; -EPINEPHrine INJ 1 MG/ML 1ML AMP IM PRN; -diphenhydrAMINE 50MG/ML VIAL (J1200) IV PRN; -methylPREDNISolone 125MG 2ML VIAL IV PRN
== END ==
LOC: M LAB REF 11:13
PROVIDERS: ATTEND Physician Assistant
DX: I48.21 Permanent atrial fibrillation (principal); Z79.01 Long term (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 of anticoagulants; Z53.9 Procedure and treatment not carried out, unspecified reason

== ENCOUNTER → 2020-08-03 | Outpatient (CLI) | payer MEDICARE ==
[2020-08-03 16:14] LABS: INR 3.11; PROTHROMBIN TIME 32.7 SECONDS (12.5-14.3)
== END ==
LOC: M LAB 14:45
PROVIDERS: ATTEND Physician Assistant
DX: I48.21 Permanent atrial fibrillation (principal); Z79.01 Long term (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 of anticoagulants

== ENCOUNTER 2020-08-05 11:34 | Outpatient (CLI) | payer MEDICARE ==
[~2020-08-05] VITALS: Ht 182.9 cm; Wt 114.0 kg
[~2020-08-05 11:34] MED LIST changes: +ALBUTEROL SULFATE 2.5 MG/0.5 ML INH NEB SOLN INH PRN; +EPINEPHrine INJ 1 MG/ML 1ML AMP IM PRN; +diphenhydrAMINE 50MG/ML VIAL (J1200) IV PRN; +methylPREDNISolone 125MG 2ML VIAL IV PRN
[2020-08-05] MEDS ORDERED: diphenhydrAMINE 50MG/ML VIAL (J1200) IV ONE (12:00)
[2020-08-05] MEDS ORDERED: NS 1,000 ML IV SCH (12:00)
[2020-08-05] MEDS ORDERED: FERRIC CARBOXYMALTOSE INJ 750 MG, VIAL MATE ADAPTER 1 EACH in NS 250 ML IV ONE (12:00)
[2020-08-05 12:13] VITALS: BP 136/62
[2020-08-05 13:30] VITALS: BP 127/61
== END 2020-08-05 13:30 | disposition home or self-care (01) ==
LOC: M INFU 11:34
PROVIDERS: ATTEND Internal Medicine Nephrology
DX: D50.9 Iron deficiency anemia, unspecified (principal)
CPT/HCPCS: 96365; J1439

== ENCOUNTER → 2020-08-24 | Outpatient (REF) | payer MEDICARE ==
[~2020-08-24] MED LIST changes: -ALBUTEROL SULFATE 2.5 MG/0.5 ML INH NEB SOLN INH PRN; -EPINEPHrine INJ 1 MG/ML 1ML AMP IM PRN; -diphenhydrAMINE 50MG/ML VIAL (J1200) IV PRN; -methylPREDNISolone 125MG 2ML VIAL IV PRN
[2020-08-24 12:43] LABS: INR 2.66
== END ==
LOC: M SHH 11:46
PROVIDERS: ATTEND Physician Assistant
DX: Z51.81 Encounter for therapeutic drug level monitoring (principal); Z79.01 Long term (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 of anticoagulants; I48.21 Permanent atrial fibrillation

== ENCOUNTER → 2020-09-19 | Outpatient (CLI) | payer MEDICARE | LOC: M LABSMTC 09:17 | PROVIDERS: ATTEND Anesthesiology | DX: Z01.812 Encounter for preprocedural laboratory examination (principal); Z20.822 Contact with and (suspected) exposure to COVID-19 ==

== ENCOUNTER → 2020-09-22 | Outpatient (CLI) | payer MEDICARE ==
[2020-09-22 10:41] LABS: INR 2.04; PROTHROMBIN TIME 23.5 SECONDS (12.5-14.3)
== END ==
LOC: M LAB 09:41
PROVIDERS: ATTEND Physician Assistant
DX: I48.21 Permanent atrial fibrillation (principal); Z79.01 Long term (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 of anticoagulants

== ENCOUNTER 2020-09-24 10:32 | Day surgery (SDC) | payer MEDICARE ==
[~2020-09-24] VITALS: Ht 182.9 cm; Wt 107.0 kg
[~2020-09-24 10:32] MED LIST changes: +LIDOCAINE 2% 100MG/5ML SDV (FOR ANES.) As Ordered ONE; +NS 1,000 ML IV ONE; +fentaNYL 100 MCG/2 ML INJECTION (J3010) As Ordered ONE; +propofoL 200 MG/20 ML VIAL As Ordered ONE; +propofoL 500 MG/50 ML VIAL As Ordered ONE
--- NOTE | 2020-09-24 13:02 | ROOR ---
Patient Name: Ronal Roy Procedure Date: 09/24/2020 12:45 PM Date of : 1940 Age: 80 Room: [facility] Gender: Male Note Status: Finalized Procedure: Upper GI endoscopy Indications: Iron deficiency anemia Providers: Dick Giles MD Referring MD: ASHLEIGH POLO MD Requesting Provider: Medicines: Monitored Anesthesia Care Complications: No immediate complications. Procedure: Pre-Anesthesia Assessment: - The heart rate, respiratory rate, oxygen saturations, blood pressure, adequacy of pulmonary ventilation, and response to care were monitored throughout the procedure. The Endoscope was introduced through the mouth, and advanced to the second part of duodenum. The upper GI endoscopy was accomplished without difficulty. The patient tolerated the procedure well. Findings: The esophagus was normal. The stomach was normal. The examined duodenum was normal. Impression: - Normal esophagus. - Normal stomach. - Normal examined duodenum. - No specimens collected. Recommendation: - Observe patient's clinical course. Procedure Code(s): --- Professional --- 62279, Esophagogastroduodenoscopy, flexible, transoral; diagnostic, including collection of specimen(s) by brushing or washing, when performed (separate procedure) Diagnosis Code(s): --- Professional --- D50.9, Iron deficiency anemia, unspecified CPT copyright 2019 [employer]. All rights reserved. The codes documented in this report are preliminary and upon facility maintenance mechanic review may be revised to meet current compliance requirements. Dick Giles MD Dick Giles MD 09/24/2020 1:01:41 PM Electronically signed by Dick Giles MD Number of Addenda: 0 Note Initiated On: 09/24/2020 12:45 PM Estimated Blood Loss: Estimated blood loss: none.
--- NOTE | 2020-09-24 13:20 | ROOR ---
Patient Name: Ronal Roy Procedure Date: 09/24/2020 12:46 PM Date of : 1940 Age: 80 Room: [facility] Gender: Male Note Status: Finalized Procedure: Colonoscopy Indications: Iron deficiency anemia Providers: Dick Giles MD Referring MD: ASHLEIGH POLO MD Requesting Provider: Medicines: Propofol per Anesthesia Complications: No immediate complications. Procedure: Pre-Anesthesia Assessment: - The heart rate, respiratory rate, oxygen saturations, blood pressure, adequacy of pulmonary ventilation, and response to care were monitored throughout the procedure. The Colonoscope was introduced through the anus with the intention of advancing to the cecum. The scope was advanced to the splenic flexure before the procedure was aborted. Medications were given. The quality of the bowel preparation was poor and 90 percent obscured. Findings: The perianal and digital rectal examinations were normal. (Colon Prep was POOR, Inadequate Visualisation) Impression: - Preparation of the colon was poor. - (Colon Prep was POOR, Inadequate Visualisation) - No specimens collected. Recommendation: - Repeat colonoscopy at the next available appointment because the bowel preparation was poor. - My office will call you to reschedule the procedure. - Resume Coumadin (warfarin) today and Lovenox (enoxaparin) today at prior doses. Refer to managing physician for further adjustment of therapy. Procedure Code(s): --- Professional --- 04901, 53, Colonoscopy, flexible; diagnostic, including collection of specimen(s) by brushing or washing, when performed (separate procedure) Diagnosis Code(s): --- Professional --- D50.9, Iron deficiency anemia, unspecified CPT copyright 2019 [employer]. All rights reserved. The codes documented in this report are preliminary and upon certified professional coder review may be revised to meet current compliance requirements. Dick Giles MD Dick Giles MD 09/24/2020 1:19:53 PM Electronically signed by Dick Giles MD Number of Addenda: 0 Note Initiated On: 09/24/2020 12:46 PM Estimated Blood Loss: Estimated blood loss: none.
[2020-09-24 13:45] VITALS: BP 162/80
== END 2020-09-24 14:03 | disposition home or self-care (01) ==
LOC: M OPP 10:32
PROVIDERS: ATTEND Internal Medicine Gastroenterology
DX: D50.9 Iron deficiency anemia, unspecified (principal); Z79.01 Long term (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 of anticoagulants; Z79.899 Other long term (current) drug therapy; Z86.010 Personal history of colon polyps; Z80.0 Family history of malignant neoplasm of digestive organs; Z95.5 Presence of coronary angioplasty implant and graft
CPT/HCPCS: 43235; 45378; J3010

== ENCOUNTER 2020-09-27 10:41 | Emergency (ER) | payer MEDICARE ==
[~2020-09-27] VITALS: Ht 182.9 cm; Wt 109.4 kg
[2020-09-27] MEDS ORDERED: NEOSPORIN TOP OINT 15GM TOP STA (15:23)
[2020-09-27 15:45] VITALS: BP 148/70
== END 2020-09-27 15:46 | disposition home or self-care (01) ==
LOC: M ED 10:41
DX: S31.133A Puncture wound of abdominal wall without foreign body, right lower quadrant without penetration into peritoneal cavity, initial encounter (principal); L76.22 Postprocedural hemorrhage of skin and subcutaneous tissue following other procedure; T80.89XA Other complications following infusion, transfusion and therapeutic injection, initial encounter; Y92.9 Unspecified place or not applicable; Y93.9 Activity, unspecified; Y99.9 Unspecified external cause status; J44.9 Chronic obstructive pulmonary disease, unspecified; N18.9 Chronic kidney disease, unspecified; K21.9 Gastro-esophageal reflux disease without esophagitis; G20 Parkinson's disease; Z79.899 Other long term (current) drug therapy; Z79.51 Long term (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 of inhaled steroids; Z95.5 Presence of coronary angioplasty implant and graft; Z51.81 Encounter for therapeutic drug level monitoring; Z79.01 Long term (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 of anticoagulants; I48.21 Permanent atrial fibrillation

== ENCOUNTER → 2020-09-27 | Outpatient (CLI) | payer MEDICARE ==
[~2020-09-27] MED LIST changes: -LIDOCAINE 2% 100MG/5ML SDV (FOR ANES.) As Ordered ONE; -NS 1,000 ML IV ONE; -fentaNYL 100 MCG/2 ML INJECTION (J3010) As Ordered ONE; -propofoL 200 MG/20 ML VIAL As Ordered ONE; -propofoL 500 MG/50 ML VIAL As Ordered ONE
[2020-09-27 09:28] LABS: INR 1.76; PROTHROMBIN TIME 20.9 SECONDS (12.5-14.3)
== END ==
LOC: M LAB 08:34
PROVIDERS: ATTEND Physician Assistant
DX: Z51.81 Encounter for therapeutic drug level monitoring (principal); Z79.01 Long term (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 of anticoagulants; I48.21 Permanent atrial fibrillation

== ENCOUNTER 2020-09-29 23:07 | Emergency (ER) | payer MEDICARE ==
[~2020-09-29] VITALS: Ht 182.9 cm; Wt 112.0 kg
[2020-09-30 01:42] LABS: BASO # 0.1 10^3/uL (0.0-0.2); BASO % 0.9 % (0.0-1.0); EOS # 0.3 10^3/uL (0.0-0.5); EOS % 2.9 % (0.0-3.0); HEMATOCRIT 36.3 % (42.0-52.0); HEMOGLOBIN 11.8 g/dl (13.5-17.5); LYMPH % 10.7 % (24.0-44.0); MEAN CORPUSCULAR HEMOGLOBIN 33.5 pg (27.0-33.0); MEAN CORPUSCULAR HGB CONC 32.5 g/dl (32.0-36.5); MEAN CORPUSCULAR VOLUME 103.1 fl (80.0-96.0); MONO # 1.2 10^3/uL (0.0-0.8); MONO % 12.9 % (2.0-8.0); NEUTROPHILS # 6.6 10^3/uL (1.5-8.5); NEUTROPHILS % 71.5 % (36.0-66.0); PLATELET COUNT, AUTOMATED 175 10^3/uL (150-450); RED BLOOD COUNT 3.52 10^6/uL (4.30-6.10); WHITE BLOOD COUNT 9.3 10^3/uL (4.0-10.0)
[2020-09-30 01:54] LABS: INR 2.02; PROTHROMBIN TIME 23.3 SECONDS (12.5-14.3)
[2020-09-30 01:55] LABS: PARTIAL THROMBOPLASTIN TIME 45.5 SECONDS (24.2-38.5)
[2020-09-30 02:20] LABS: ALBUMIN 3.6 GM/DL (3.2-5.2); BILIRUBIN,DIRECT 0.1 MG/DL (0.0-0.2); BILIRUBIN,TOTAL 0.3 MG/DL (0.2-1.0); TOTAL PROTEIN 7.2 GM/DL (6.4-8.2)
[2020-09-30 02:42] VITALS: BP 147/69
== END 2020-09-30 02:53 | disposition home or self-care (01) ==
LOC: M ED 23:14
DX: R04.0 Epistaxis (principal); I48.91 Unspecified atrial fibrillation; I50.9 Heart failure, unspecified; E78.5 Hyperlipidemia, unspecified; J44.9 Chronic obstructive pulmonary disease, unspecified; G47.33 Obstructive sleep apnea (adult) (pediatric); G20 Parkinson's disease; K21.9 Gastro-esophageal reflux disease without esophagitis; N18.30 Chronic kidney disease, stage 3 unspecified; M54.9 Dorsalgia, unspecified; Z85.828 Personal history of other malignant neoplasm of skin; Z79.01 Long term (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 of anticoagulants; Z79.899 Other long term (current) drug therapy

== ENCOUNTER → 2020-10-01 | Outpatient (CLI) | payer MEDICARE ==
[2020-10-01 10:26] LABS: INR 2.14; PROTHROMBIN TIME 24.4 SECONDS (12.5-14.3)
== END ==
LOC: M LAB 09:31
PROVIDERS: ATTEND Physician Assistant
DX: I48.21 Permanent atrial fibrillation (principal); Z79.01 Long term (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 of anticoagulants

== ENCOUNTER → 2020-10-06 | Outpatient (CLI) | payer MEDICARE ==
[2020-10-06 10:19] LABS: INR 2.63; PROTHROMBIN TIME 28.7 SECONDS (12.5-14.3)
== END ==
LOC: M LAB 08:56
PROVIDERS: ATTEND Physician Assistant
DX: Z51.81 Encounter for therapeutic drug level monitoring (principal); Z79.01 Long term (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 of anticoagulants; I48.21 Permanent atrial fibrillation

== ENCOUNTER → 2020-10-11 | Outpatient (CLI) | payer MEDICARE ==
[~2020-10-11] MED LIST changes: +OMEP40CA4 PO; -OMEP40CA97 PO
[2020-10-11 09:18] LABS: INR 2.62; PROTHROMBIN TIME 28.6 SECONDS (12.5-14.3)
== END ==
LOC: M LAB 08:19
PROVIDERS: ATTEND Physician Assistant
DX: I48.21 Permanent atrial fibrillation (principal); Z79.01 Long term (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 of anticoagulants

== ENCOUNTER → 2020-11-01 | Outpatient (CLI) | payer MEDICARE ==
[~2020-11-01] MED LIST changes: +ALLO300T2 PO
[2020-11-01 10:39] LABS: INR 2.01; PROTHROMBIN TIME 23.2 SECONDS (12.5-14.3)
== END ==
LOC: M LAB 09:07
PROVIDERS: ATTEND Physician Assistant
DX: I48.21 Permanent atrial fibrillation (principal); Z79.01 Long term (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 of anticoagulants

== ENCOUNTER → 2020-11-01 | Outpatient (REF) | payer MEDICARE | LOC: M LAB REF 17:04 | PROVIDERS: ATTEND Internal Medicine Nephrology | DX: N18.31 Chronic kidney disease, stage 3a (principal) ==

== ENCOUNTER 2020-11-13 15:52 | Emergency (ER) | payer MEDICARE ==
[~2020-11-13] VITALS: Ht 182.9 cm; Wt 100.0 kg
--- NOTE | 2020-11-13 18:36 | REPVR ---
PROCEDURE INFORMATION: Exam: XR Right Tibia and Fibula Exam date and time: 11/13/2020 6:05 PM Age: 80 years old Clinical indication: Injury or trauma; Fall; Swelling (edema); Lower leg; Right; Additional info: Pain/commode fell onto leg TECHNIQUE: Imaging protocol: XR Right tibia and fibula. Views: 2 views. COMPARISON: US Duplex, Ext LOWER veins, bilat 05/25/2020 3:59 PM FINDINGS: Bones/joints: Normal. Soft tissues: Normal. Vasculature: Atherosclerotic calcifications in the femoral, popliteal and infrapopliteal arteries. IMPRESSION: No acute findings. Electronically signed by: Eliceo Rosas On 11/13/2020 18:36:01 PM
[2020-11-13 18:58] VITALS: BP 173/82
== END 2020-11-13 19:15 | disposition home or self-care (01) ==
LOC: M ED 15:52
DX: S80.11XA Contusion of right lower leg, initial encounter (principal); X58.XXXA Exposure to other specified factors, initial encounter; Y92.9 Unspecified place or not applicable; Y93.89 Activity, other specified; Y99.9 Unspecified external cause status; I48.91 Unspecified atrial fibrillation; I50.9 Heart failure, unspecified; E78.5 Hyperlipidemia, unspecified; G20 Parkinson's disease; G47.33 Obstructive sleep apnea (adult) (pediatric); K21.9 Gastro-esophageal reflux disease without esophagitis; M54.9 Dorsalgia, unspecified; E66.9 Obesity, unspecified; Z79.01 Long term (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 of anticoagulants; Z79.899 Other long term (current) drug therapy

== ENCOUNTER 2020-11-15 13:21 | Outpatient (RCR) | payer MEDICARE ==
[~2020-11-15 13:21] MED LIST changes: -FLON1SPR; +FLON1SPR NARES
[2020-11-17] MEDS ORDERED: OXYB5TAB10 PO (21:58)
[2020-11-20] MEDS ORDERED: CALC1CAP31 PO (12:53)
[2020-11-20] MEDS ORDERED: OXYB5TAB10 PO (13:43)
== END 2020-11-20 ==
LOC: M PT 13:21
PROVIDERS: ATTEND Internal Medicine Nephrology
DX: R60.0 Localized edema (principal)

== ENCOUNTER → 2020-11-16 | Outpatient (CLI) | payer MEDICARE ==
[~2020-11-16] MED LIST changes: +FLON1SPR; -FLON1SPR NARES; +OXYB5TAB10 PO
[2020-11-16 12:11] LABS: INR 3.06; PROTHROMBIN TIME 32.3 SECONDS (12.5-14.3)
== END ==
LOC: M LAB 10:58
PROVIDERS: ATTEND Physician Assistant
DX: I48.21 Permanent atrial fibrillation (principal); Z79.01 Long term (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 of anticoagulants

== ENCOUNTER 2020-11-17 18:33 | Emergency (ER) | payer MEDICARE ==
[~2020-11-17] VITALS: Ht 182.9 cm; Wt 108.7 kg
[~2020-11-17 18:33] MED LIST changes: -OXYB5TAB10 PO
[2020-11-17 20:10] LABS: BASO # 0.1 10^3/uL (0.0-0.2); BASO % 0.6 % (0.0-1.0); EOS # 0.3 10^3/uL (0.0-0.5); EOS % 2.7 % (0.0-3.0); HEMATOCRIT 36.7 % (42.0-52.0); LYMPH # 0.6 10^3/uL (1.5-5.0); MEAN CORPUSCULAR HEMOGLOBIN 33.6 pg (27.0-33.0); MEAN CORPUSCULAR HGB CONC 32.7 g/dl (32.0-36.5); MEAN CORPUSCULAR VOLUME 102.8 fl (80.0-96.0); MONO # 1.2 10^3/uL (0.0-0.8); MONO % 11.6 % (2.0-8.0); NEUTROPHILS # 7.8 10^3/uL (1.5-8.5); NEUTROPHILS % 78.1 % (36.0-66.0); PLATELET COUNT, AUTOMATED 207 10^3/uL (150-450); RED BLOOD COUNT 3.57 10^6/uL (4.30-6.10)
[2020-11-17 20:21] LABS: PROTHROMBIN TIME 31.8 SECONDS (12.5-14.3)
[2020-11-17 20:22] LABS: PARTIAL THROMBOPLASTIN TIME 47.7 SECONDS (24.2-38.5)
[2020-11-17 20:51] LABS: CREATININE FOR GFR 1.71 MG/DL (0.70-1.30); GLOMERULAR FILTRATION RATE 41.3 (>42); POTASSIUM SERUM 3.7 MEQ/L (3.5-5.1)
[2020-11-17] MEDS ORDERED: oxyBUTYnin 5 MG TAB PO ONE (21:55)
[2020-11-17] MEDS ORDERED: OXYB5TAB10 PO (21:58)
[2020-11-17 22:15] VITALS: BP 164/71
== END 2020-11-17 22:30 | disposition home or self-care (01) ==
LOC: M ED 18:33
DX: R35.0 Frequency of micturition (principal); I25.10 Atherosclerotic heart disease of native coronary artery without angina pectoris; I50.9 Heart failure, unspecified; I10 Essential (primary) hypertension; J44.9 Chronic obstructive pulmonary disease, unspecified; N18.9 Chronic kidney disease, unspecified; G20 Parkinson's disease; Z95.2 Presence of prosthetic heart valve; Z79.01 Long term (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 of anticoagulants; Z79.899 Other long term (current) drug therapy

== ENCOUNTER 2020-11-20 10:23 | Inpatient (IN) | payer MEDICARE ==
[~2020-11-20] VITALS: Ht 182.9 cm; Wt 105.9 kg
[~2020-11-20 10:23] MED LIST changes: -FLON1SPR; +FLON1SPR NARES; +OXYB5TAB10 PO
[2020-11-20 11:02] LABS: BASO # 0.1 10^3/uL (0.0-0.2); BASO % 0.3 % (0.0-1.0); EOS # 0.1 10^3/uL (0.0-0.5); EOS % 0.4 % (0.0-3.0); HEMATOCRIT 35.3 % (42.0-52.0); HEMOGLOBIN 11.7 g/dl (13.5-17.5); LYMPH # 0.4 10^3/uL (1.5-5.0); LYMPH % 2.1 % (24.0-44.0); MEAN CORPUSCULAR HEMOGLOBIN 33.6 pg (27.0-33.0); MEAN CORPUSCULAR HGB CONC 33.1 g/dl (32.0-36.5); MEAN CORPUSCULAR VOLUME 101.4 fl (80.0-96.0); MONO # 2.1 10^3/uL (0.0-0.8); NEUTROPHILS # 16.5 10^3/uL (1.5-8.5); NEUTROPHILS % 85.7 % (36.0-66.0); PLATELET COUNT, AUTOMATED 198 10^3/uL (150-450); RED BLOOD COUNT 3.48 10^6/uL (4.30-6.10)
[2020-11-20 11:13] LABS: INR 3.94; PROTHROMBIN TIME 38.7 SECONDS (12.7-14.5)
[2020-11-20 11:14] LABS: PARTIAL THROMBOPLASTIN TIME 76.8 SECONDS (25.9-37.0)
[2020-11-20 11:23] LABS: ERYTHROCYTE SEDIMENTATION RATE 70 mm/hr (0-20)
[2020-11-20 11:25] LABS: ALBUMIN 3.3 GM/DL (3.2-5.2); BILIRUBIN,DIRECT 0.2 MG/DL (0.0-0.2); BILIRUBIN,TOTAL 0.9 MG/DL (0.2-1.0); C REACTIVE PROTEIN QUANTITATIV 5.57 MG/DL (0.00-0.30); CALCIUM LEVEL 8.7 MG/DL (8.8-10.2); CREATININE FOR GFR 1.54 MG/DL (0.70-1.30); GLOMERULAR FILTRATION RATE 46.6 (>42); POTASSIUM SERUM 3.9 MEQ/L (3.5-5.1)
[2020-11-20 11:27] LABS: WHITE BLOOD COUNT 19.2 10^3/uL (4.0-10.0)
--- NOTE | 2020-11-20 12:21 | REP ---
INDICATION: EVALUATION OF ABCESS. Patient fell 2 weeks ago striking this area and is on blood thinners. COMPARISON: None. TECHNIQUE: Ultrasound evaluation was performed in multiple projections. FINDINGS: There is a complex hypoechoic mass in the area of concern measuring 3.9 x 2.4 x 2.3 cm. IMPRESSION: Findings most consistent with a hematoma. <Electronically signed by Wally Zhang > 11/20/20 [id number]
--- NOTE | 2020-11-20 12:22 | REP ---
INDICATION: R/O DVT. COMPARISON: None. TECHNIQUE: Examination of the right lower extremity venous system was performed using color Doppler. FINDINGS: Examination of the deep venous system of the right lower extremity demonstrates no evidence of deep venous thrombosis. IMPRESSION: No evidence of DVT of the right lower extremity. <Electronically signed by Wally Zhang > 11/20/20 [id number]
[2020-11-20] MEDS ORDERED: CALC1CAP31 PO (12:53)
[2020-11-20 13:34] LABS: RSV AMPLIFICATION NEGATIVE (NEGATIVE)
--- NOTE | 2020-11-20 13:42 | REP ---
INDICATION: fever. COMPARISON: Two-view chest, 06/15/2020. TECHNIQUE: AP portable chest image was obtained. FINDINGS: There is cardiomegaly and pulmonary venous hypertension without congestive heart failure. Status post CABG surgery. There is calcific vascular disease of the thoracic aorta. There is linear atelectasis or scarring in both lung bases, not significantly changed. There are no pleural effusions. Status post median sternotomy. The upper abdominal bowel gas pattern is unremarkable. IMPRESSION: 1. Bibasilar atelectasis or scarring not significantly changed. 2. Cardiomegaly and pulmonary venous hypertension without congestive heart failure. 3. Status post median sternotomy and CABG surgery. <Electronically signed by Wally Zhang > 11/20/20 [id number]
[2020-11-20] MEDS ORDERED: OXYB5TAB10 PO (13:43)
[2020-11-20] MEDS ORDERED: HOME MED LIST COMPLETE! XX SCH (13:45)
[2020-11-20] MEDS ORDERED: VANCOMYCIN HCL 1,000 MG in IV FLUID PLACE HOLDER 1 EA IV ONE (14:15)
[2020-11-20] MEDS ORDERED: VANCOMYCIN HCL 1,000 MG, VIAL MATE ADAPTER 1 EACH in NS 250 ML IV ONE ×2 (15:00→16:00)
[2020-11-20] MEDS ORDERED: LIDOCAINE 2% 5ML JELLY UROJET TOP ONE (15:15)
[2020-11-20] MEDS ORDERED: ACETAMINOPHEN TAB 650MG DOSE (2X325MG) PO PRN (15:20)
--- NOTE | 2020-11-20 16:48 | HPEPDOC ---
[facility] Medical History & Physical Date of Admission Nov 20, 2020 Date of Service: Nov 20, 2020 Attending Physician: ARLENE AKBAR MD History and Physical CHIEF COMPLAINT: worsening urinary and stool incontinence HISTORY OF PRESENT ILLNESS: Ronal is 80M PMH Parkinson's, CAD s/p CABG, s/p mechanical valve replacement on warfarin, CKD who presented to ED w/ urinary and stool incontinence that began about 1wk ago and has been worsening. He was seen and evaluated in [facility] ED 11/17 for urinary frequency. Labs during that visit were normal, UA wnl, and pt discharged w/ recommendations in regards to lasix compliance. Today, he reports urinary frequency w/ incontinence and stool incontinence. He tells me he is incontinent and does not realize when he has soiled himself. Describes stool as formed, soft, w/out blood, w/out foul odor. Denies changes in diet. Pt appears to be intermittently drowsy during encounter and depends on his , Isaura, who is in the room to help answer questions regarding sx and medical hx. His tells me his abd and scrotum are also newly distended. Reports progressive visual changes, worsening generalized weakness w/out numbness/tingling or loss of sensation. Reports chronic low back pain w/out hx back surgery, trauma. Denies hx neuropathy, prostate issues. Denies fevers/chills, unintentional weight changes, chest pain, palpitations, SOB, cough. Denies abd pain, n/v, hematuria, penile discharge, hematochezia, changes in stool quality. PAST MEDICAL HISTORY: 1. Parkinsons disease 2. CAD 3. HTN 4. s/p Mechanical valve replacement 5. COPD 6. GERD 7. CKD 8. Skin CA 9. Iron deficiency PAST SURGICAL HISTORY: 1. CABG 2. Mechanical AV replacement 3. Tonsillectomy SOCIAL HISTORY: Marital status: Resides in: home Tobacco use: former smoker, quit 1999 ETOH: denies Illicit drug use: denies FAMILY HISTORY: Reviewed and noncontributory ALLERGIES: Please see below. REVIEW OF SYSTEMS: CONSTITUTIONAL: denies fevers/chills, unintentional weight changes, changes in diet, night sweats HEENT: visual changes. CARDIOVASCULAR: denies chest pain, palpitations RESPIRATORY: denies SOB, cough, wheezing GASTROINTESTINAL: abd distension. denies abd pain, constipation, n/v GENITOURINARY: increased urinary incontinence, urinary frequency, distended scrotum. denies hematuria SKIN: hematoma unchanged, worsening dry skin. denies new rashes/wounds MUSCULOSKELETAL: low back pain, normal ROM. denies joint pain, muscle aches NEUROLOGICAL: worsening weakness. unchanged resting tremor. denies numbness/tingling, loss of sensation, recent falls PSYCHIATRIC: denies depressed mood HEMATOLOGIC/LYMPHATIC: iron infusions due to deficiency, chronic lymphedema b/l LE HOME MEDICATIONS: Please see below. PHYSICAL EXAMINATION: VITAL SIGNS: Temperature 100.7, pulse 69, respiratory rate 18, blood pressure 149/85, pulse oximetry 96% on room air. GENERAL APPEARANCE: laying in stretcher, NAD, awake, intermittently drowsy HEENT: NC/AT, EOMI, dried blood on and around nares, dry mucous membranes, poor dentition CARDIOVASCULAR: normal heart sounds, RRR, no MRG LUNGS: CTA b/l, no WRR, no accessory muscles used ABDOMEN: hypoactive BS, soft, distended, nontender MUSCULOSKELETAL: normal ROM, no tender w/ palpation spinal processes EXTREMITIES: 3+ pitting edema b/l LE, 6cm hematoma ant RLE closed and intact w/out signs of infxn surrounding skin NEUROLOGICAL: no FND, resting tremor b/l UE, 5/5 strength w/ significantly increased weakness b/l LE, decreased rectal tone PSYCHIATRIC: AOx3, normal mood, flat affect LABORATORY DATA: See below. IMAGING: Vascular u/s (11/20/20): No evidence of DVT of the right lower extremity. RLE u/s (11/20/20): Findings most consistent with a hematoma. CXR (11/20/20): 1. Bibasilar atelectasis or scarring not significantly changed. 2. Cardiomegaly and pulmonary venous hypertension without congestive heart failure. 3. Status post median sternotomy and CABG surgery. MICROBIOLOGY: Please see below. ASSESSMENT/PLAN: 80M PMH Parkinsons, CKD, CAD s/p CABG, mechanical valve replacement w/ worsening urinary and stool incontinence found to have leukocytosis, b/l LE weakness, and decreased rectal tone, concerning for cauda equina syndrome, lumbar MRI pending. #Urinary and stool incontinence- possible cauda equina, secondary to abscess or infected hematoma Lumbar MRI pending Labs pending- Procalcitonin, BNP WBC 19.2, 85.7% neutrophils ESR 70 CRP 5.57 Lactic acid 1.4 Start Zosyn Start Vancomycin Condom catheter Monitor w/ labs #Possible UTI UA w/ reflex cx pending On abx (see above) #s/p Mechanical valve replacement On Warfarin, supratherapeutic- hold, pending lumbar MRI results to r/o spinal hematoma #Scrotal distension Scrotal u/s pending #CKD Pt's BUN/Cr and GFR appear to be at his baseline Follows closely w/ nephro (Dr. Ritchie) and PCP (Dr. Tiago Jo) Continue home meds #LE weakness Lumbar MRI pending PT/OT eval pending #Hematoma- stable Monitor for changes #Iron deficiency On iron supplement- hold, pending acute infxn Pt receives iron infusions PRN #Parkinsons Continue home meds #HTN Continue home meds #DVT Prophylaxis On Warfarin- hold, pending lumbar MRI results to r/o spinal hematoma CODE STATUS: DNR w/ trial of intubation DISPO: PCU OOB w/ nurse assist Regular diet Vital Signs Vital Signs Date Time Temp Pulse Resp B/P (MAP) Pulse Ox O2 Delivery O2 Flow Rate FiO2 11/20/20 14:15 69 148/118 (128) 83 11/20/20 10:39 100.7 Laboratory Data Labs 24H Laboratory Tests 2 11/20/20 10:48: Immature Granulocyte % (Auto) 0.5, Neutrophils (%) (Auto) 85.7H, Lymphocytes (%) (Auto) 2.1L, Monocytes (%) (Auto) 11.0H, Eosinophils (%) (Auto) 0.4, Basophils (%) (Auto) 0.3, Neutrophils # (Auto) 16.5H, Lymphocytes # (Auto) 0.4L, Monocytes # (Auto) 2.1H, Eosinophils # (Auto) 0.1, Basophils # (Auto) 0.1, Nucleated Red Blood Cells % (auto) 0.0, Erythrocyte Sedimentation Rate 70H, Prothrombin Time 38.7H, Prothromb Time International Ratio 3.94, Activated Partial Thromboplast Time 76.8H, Anion Gap 5L, Glomerular Filtration Rate 46.6, Lactic Acid Level 1.4, Calcium Level 8.7L, Total Bilirubin 0.9, Direct Bilirubin 0.2, Aspartate Amino Transf (AST/SGOT) 19, Alanine Aminotransferase (ALT/SGPT) 20, Alkaline Phosphatase 86, C-Reactive Protein, Quantitative 5.57H, Total Protein 7.0, Albumin 3.3, Albumin/Globulin Ratio 0.9 11/20/20 12:38: Coronavirus (COVID-19)(PCR) NEGATIVE, Influenza Type A (RT-PCR) NEGATIVE, Influenza Type B (RT-PCR) NEGATIVE, Respiratory Syncytial Virus (PCR) NEGATIVE CBC/BMP Laboratory Tests 11/20/20 10:48 Microbiology Microbiology 11/20/20 Blood Culture, Received Pending Home Medications Scheduled Atorvastatin Calcium (Atorvastatin Calcium) 20 Mg Tablet, 20 MG PO QHS Bisoprolol Fumarate (Bisoprolol Fumarate) 5 Mg Tablet, 5 MG PO DAILY Calcitriol (Calcitriol) 0.25 Mcg Capsule, 0.25 MCG PO 3XW MON, WED, FRI Calcium Carbonate/Vitamin D3 (Calcium 600-Vit D3 400 Tablet) 1 Tab Tab, 1 TAB PO DAILY Carbidopa/Levodopa (Carbidopa-Levodopa 25-100 Tab) 1 Each Tablet, 1.5 TAB PO TID Ferrous Sulfate (Ferrous Sulfate) 325 Mg Tab, 325 MG PO DAILY Folic Acid (Folic Acid) 1 Mg Tab, 1 MG PO QPM Multivit-Minerals/FA/Lycopene (One Daily For Men Tablet) 1 Each Tablet, 1 TAB PO DAILY Omeprazole (Omeprazole) 40 Mg Capsule.dr, 40 MG PO BID Oxybutynin Chloride (Oxybutynin Chloride) 5 Mg Tablet, 2.5 MG PO BID Polyethylene Glycol 3350 (Miralax) 1 Pow Pow, 17 GM PO DAILY MIX WITH WATER OR JUICE Potassium Chloride (Potassium Chloride) 10 Meq Tab.er.prt, 10 MEQ PO BID Salmeterol/Fluticasone (Advair 250-50 Diskus) 1 Each Blst.w.dev, 1 PUFF INH BID Spironolactone (Spironolactone) 25 Mg Tablet, 25 MG PO DAILY Tiotropium [place] (Spiriva Respimat) 4 Gm Mist.inhal, 1 PUFF INH DAILY Torsemide (Torsemide) 20 Mg Tablet, 60 MG PO BID Ubidecarenone (Co Q-10) 200 Mg Capsule, 200 MG PO DAILY Warfarin Sodium (Warfarin Sodium) 3 Mg Tablet, 6 MG PO 6XWK Sun,Mon, Tues, WEd,Fri, Sat Warfarin Sodium (Warfarin Sodium) 5 Mg Tablet, 5 MG PO 1XWK Thur allopurinoL (allopurinoL) 300 Mg Tablet, 300 MG PO DAILY Scheduled PRN Albuterol Sulfate (Proair Hfa) 8.5 Gm Hfa.aer.ad, 2 PUFF INH Q4H PRN for SOB/WHEEZING Carboxymethylcellulose Sodium (Refresh Tears) 0.5 % Aramis, 1 DROP OU DAILY PRN for DRY EYES Fluticasone Propionate (Flonase Allergy Relief) 50 Mcg/Act Spr, 1 SPRAY NARES DAILY PRN for NASAL CONGESTION Nitroglycerin (Nitroglycerin) 0.4 Mg Tab.subl, 0.4 MG SL NITRO PRN for CHEST PAIN Allergies Coded Allergies: No Known Allergies (Unverified , 09/16/20) A-FIB/CHADSVASC A-FIB History Current/History of A-Fib/PAF?: No GME ATTESTATION GME ATTESTATION My faculty preceptor for this patient encounter was physically present during the encounter and was fully available. All aspects of the patient interview, examination, medical decision making process, and medical care plan development were reviewed and approved by the faculty preceptor. The faculty preceptor is aware and concurs with the plan as stated in the body of this note and will attest to such by his/her cosignature. ATTENDING NOTE I, Arlene Akbar, have independently examined this patient and performed my own physical exam, as well as reviewed the documentation and edited where necessary. I have discussed in detail with the resident / student the findings and plan of treatment as documented by the resident / student and edited their note. I agree with their findings and treatment plan and have edited their documentation. I will continue to follow the patient during this hospital stay. Martha Duncan DO Nov 20, 2020 16:48 ARLENE AKBAR MD Nov 21, 2020 18:47
--- NOTE | 2020-11-20 17:52 | REP ---
INDICATION: swelling. COMPARISON: None. TECHNIQUE: Ultrasound images were obtained through the scrotum in multiple planes supplemented by color Doppler. FINDINGS: The right testis measures 3.8 x 3.1 x 1.8 cm. The head of the right epididymis measures 9 mm in thickness and contains an 8 mm in diameter cyst. 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 The left testis measures 3.9 x 2.8 x 2.1 cm. The head of left epididymis measures 7 mm in thickness. There is a large right hydrocele. There is a large right inguinal hernia containing fluid. There is a left varicocele. The right PSV/EDV is 3.8/1.7 cm/S. The resistive index is 0.60. The left PSV/EDV is 4.6/1.5 cm/S. The resistive index is 0.70. IMPRESSION: 1. Large right inguinal hernia containing fluid. 2. Large right hydrocele. 3. Left varicocele. 4. Cyst in the head of the right epididymis. 5. 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 <Electronically signed by Wally Zhang > 11/20/20 [id number]
--- NOTE | 2020-11-20 18:50 | REPVR ---
PROCEDURE INFORMATION: Exam: MR Lumbar Spine Without Contrast. Exam date and time: 11/20/2020 5:18 PM Age: 80 years old Clinical indication: Low back pain; Additional info: R/O cauda equina TECHNIQUE: Imaging protocol: Multiplanar magnetic resonance images of the lumbar spine without contrast. COMPARISON: RENAL US 06/10/2020 6:51 AM FINDINGS: Limitations: Evaluation is limited due to motion artifact. The patient was unable to complete the exam. Axial T2 weighted images were not performed. Vertebrae: No acute compression fracture is seen. Bone marrow signal is within normal limits. Spinal cord: The conus medullaris terminates at the T12-L1 level. There is no evidence of arachnoiditis or cauda equina compression. Discs/Spinal canal/Neural foramina: Mild degenerative changes of the lumbar spine are present. There is no significant spinal canal stenosis. No severe neural foraminal narrowing is identified. There is mild/moderate left neural foraminal narrowing at L5-S1 due to osteophytic ridging and facet arthropathy. Soft tissues: Subcutaneous edema is present in the lower back. IMPRESSION: 1. Limited examination of the lumbar spine 2. Mild degenerative changes of the lumbar spine. No cauda equina compression. Electronically signed by: Rush Mary On 11/20/2020 18:49:33 PM
[2020-11-20 20:15] VITALS: BP 148/67
[2020-11-20 20:19] LABS: C REACTIVE PROTEIN QUANTITATIV 11.5 MG/DL (0.00-0.30)
[2020-11-20] MEDS: PIPERACILLIN/TAZOBACTAM SOD 4.5 GM in D5W MINI-BAG PLUS 50 ML IV SCH (21:17)
[2020-11-21] VITALS: BP 123/60
[2020-11-21] MEDS: PIPERACILLIN/TAZOBACTAM SOD 4.5 GM in D5W MINI-BAG PLUS 50 ML IV SCH ×4 (02:19→20:49)
[2020-11-21 04:00] VITALS: BP 125/60
[2020-11-21 07:18] VITALS: BP 114/57
[2020-11-21 07:21] LABS: BASO # 0.1 10^3/uL (0.0-0.2); BASO % 0.3 % (0.0-1.0); HEMATOCRIT 34.2 % (42.0-52.0); HEMOGLOBIN 11.3 g/dl (13.5-17.5); LYMPH # 0.5 10^3/uL (1.5-5.0); LYMPH % 1.7 % (24.0-44.0); MONO # 2.3 10^3/uL (0.0-0.8); MONO % 8.6 % (2.0-8.0); NEUTROPHILS # 23.4 10^3/uL (1.5-8.5); NEUTROPHILS % 88.7 % (36.0-66.0); PLATELET COUNT, AUTOMATED 177 10^3/uL (150-450); RED BLOOD COUNT 3.32 10^6/uL (4.30-6.10)
[2020-11-21 07:36] LABS: WHITE BLOOD COUNT 26.4 10^3/uL (4.0-10.0)
[2020-11-21 08:01] LABS: ALBUMIN 2.9 GM/DL (3.2-5.2); BILIRUBIN,TOTAL 1.7 MG/DL (0.2-1.0); C REACTIVE PROTEIN QUANTITATIV 17.3 MG/DL (0.00-0.30); CALCIUM LEVEL 8.3 MG/DL (8.8-10.2); CREATININE FOR GFR 1.72 MG/DL (0.70-1.30); POTASSIUM SERUM 3.3 MEQ/L (3.5-5.1); TOTAL PROTEIN 6.4 GM/DL (6.4-8.2); VANCOMYCIN RANDOM 12.6 UG/ML
[2020-11-21] MEDS ORDERED: ALBUTEROL 90 MCG/ACT 8GM HFA INHALER INH PRN (08:05)
[2020-11-21] MEDS ORDERED: POTASSIUM CHLORIDE 10 MEQ SR TABLET PO ONE (08:05)
[2020-11-21] MEDS ORDERED: FLUTICASONE PROP 0.05% NASAL SPRAY 16 GM (FLONASE) NARES PRN (08:05)
[2020-11-21] MEDS ORDERED: NITROGLYCERIN 0.4 MG SUBL TABLET SL PRN (08:05)
[2020-11-21 08:43] LABS: INR 4.75; PROTHROMBIN TIME 44.7 SECONDS (12.7-14.5)
--- NOTE | 2020-11-21 08:58 | IPNPDOC ---
Text Note Date of Service The patient was seen on 11/21/20. NOTE Subjective: Patient is a 80-year-old male with a PMHx of Parkinson's, CAD s/p CABG, Mechanical AVR (on Warfarin), HTN, COPD, CKD3, Iron deficiency, GERD who presented to the emergency room with complaints of urinary and stool incontinence for about 1 week duration. Patient reported generalized weakness. Patient was admitted to the hospital service for further evaluation and treatment. Patient was seen and examined at the bedside. Patient was seen sitting up in chair, appears to be comfortable, not in any acute distress. Denies any chest pain, short of breath, palpitations, nausea, vomiting, abdominal pain. Patient reports that he is not experiencing any stool incontinence overnight. Denies any significant burning with urination. Objective: Vitals (See below) General: Sitting up in chair, appears comfortable, AAOx3 HEENT: NC, AT CVS: +S1S2 Lungs: Fair air entry b/l, no evidence of wheezing, rales or rhonchi Abdomen: Soft, ND, NT Extremities: 2+ pitting edema bilaterally at feet, chronic venous stasis changes, R leg with hematoma noted (no surrounding cellulitic changes) Imaging: Vascular US 11/20: No evidence of DVT of the right lower extremity. Extremity US 11/20: There is a complex hypoechoic mass in the area of concern measuring 3.9 x 2.4 x 2.3 cm - consistent with a hematoma CXR 11/20: 1. Bibasilar atelectasis or scarring not significantly changed. 2. Cardiomegaly and pulmonary venous hypertension without congestive heart failure. 3. Status post median sternotomy and CABG surgery. Lumbar MRI 11/20: 1. Limited examination of the lumbar spine 2. Mild degenerative changes of the lumbar spine. No cauda equina compression. Scrotal US 11/20: 1. Large right inguinal hernia containing fluid. 2. Large right hydrocele. 3. Left varicocele. 4. Cyst in the head of the right epididymis. 5. 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 Assessment and plan: Fever / Urinary frequency - likely 2/2 UTI - Patient has been afebrile overnight - Leukocytosis still remains elevated - CRP trending up - Blood / Urine cultures 11/20: Pending - c/w Vancomycin and Zosyn (Day #2) Stool incontinence / Urinary frequency - Patient has reported that he has not experience any further stool incontinence overnight - Imaging noted above; no evidence of Cauda equina - Will DC Stool softeners Generalized weakness - c/w PT and OT; may require rehab RLE hematoma - Will continue to follow H&H - Will ensure INR stays within therapeutic range CKD3 - Baseline Cr of ~1.5 - Will continue to follow Cr - Will avoid nephrotoxic medications - Follows with Nephrology as an outpatient Parkinson's - c/w Carbidopa / Levodopa CAD s/p CABG - Currently not on any anti-platelet therapy - c/w Bisoprolol / Warfarin (on Hold re: INR) Mechanical AVR - INR was supra-therapeutic yesterday - INR pending today - Will likely resume Warfarin Pulmonary HTN / Right sided heart failure - BNP elevated - ECHO 06/2020: Moderately severe pulmonary HTN - Spironolactone / Torsemide on hold currently; will consider resuming in 24 hours HTN - BP well controlled - c/w Bisoprolol DLP - c/w Atorvastatin COPD - No evidence of exacerbation - c/w inhaled therapy as ordered Overactive bladder - c/w Oxybutynin Iron deficiency - c/w Ferrous sulfate GERD - c/w Omeprazole DVT prophylaxis - INR was supra-therapeutic yesterday - pending today - Coumadin was held yesterday Disposition: - Pending clinical improvement VS,Bakari, I+O VS, Bakari, I+O Laboratory Tests 11/20/20 10:48 11/21/20 06:57 Vital Signs Date Time Temp Pulse Resp B/P (MAP) Pulse Ox O2 Delivery O2 Flow Rate FiO2 11/21/20 07:18 97.6 69 18 114/57 (76) 95 Room Air I&O- Last 24 Hours up to 6 AM 11/21/20 05:59 Intake Total 495 ml Output Total 625 ml Balance -130 ml AMPARO MADISON MD Nov 21, 2020 08:58
[2020-11-21] MEDS ORDERED: MIRALAX *UNIT DOSE* 17GM PACKET PO SCH (09:00)
[2020-11-21] MEDS ORDERED: PILL CUTTER 1 EACH XX PRN (09:00)
[2020-11-21] MEDS: ADVAIR HFA 115/21MCG INHALER INH SCH ×2 (09:04→20:22)
[2020-11-21] MEDS: TIOTROPIUM INHALER/CAPSULE (SPIRIVA) INH SCH (09:09)
[2020-11-21] MEDS: bisoproloL fumarate 5 MG TAB PO SCH (09:17)
[2020-11-21] MEDS: FERROUS SULFATE 325MG TAB PO SCH (09:17)
[2020-11-21] MEDS: OMEPRAZOLE 20 MG CAP PO SCH ×2 (09:17→20:49)
[2020-11-21] MEDS: SINEMET 25-100 MG TAB PO SCH ×3 (09:18→20:51)
[2020-11-21] MEDS: oxyBUTYnin 5 MG TAB PO SCH ×2 (09:19→20:50)
[2020-11-21 12:00] VITALS: BP 116/56
[2020-11-21 16:00] VITALS: BP 128/60
[2020-11-21] MEDS ORDERED: VANCOMYCIN HCL 750 MG, VIAL MATE ADAPTER 1 EACH in NS 250 ML IV SCH ×2 (17:00→18:00)
[2020-11-21 20:03] VITALS: BP 134/57
[2020-11-21] MEDS: ATORVASTATIN 20 MG TAB PO SCH (20:49)
[2020-11-21] MEDS: FOLIC ACID 1 MG TAB PO SCH (20:50)
[2020-11-22] VITALS: BP 136/63
[2020-11-22] MEDS: PIPERACILLIN/TAZOBACTAM SOD 4.5 GM in D5W MINI-BAG PLUS 50 ML IV SCH (02:09)
[2020-11-22 04:00] VITALS: BP 147/67
[2020-11-22 04:17] LABS: BASO # 0.1 10^3/uL (0.0-0.2); BASO % 0.4 % (0.0-1.0); EOS % 0.2 % (0.0-3.0); HEMATOCRIT 35.1 % (42.0-52.0); HEMOGLOBIN 11.4 g/dl (13.5-17.5); LYMPH # 0.4 10^3/uL (1.5-5.0); MEAN CORPUSCULAR HEMOGLOBIN 33.7 pg (27.0-33.0); MEAN CORPUSCULAR HGB CONC 32.5 g/dl (32.0-36.5); MEAN CORPUSCULAR VOLUME 103.8 fl (80.0-96.0); MONO # 1.3 10^3/uL (0.0-0.8); MONO % 7.5 % (2.0-8.0); NEUTROPHILS # 15.5 10^3/uL (1.5-8.5); NEUTROPHILS % 89.4 % (36.0-66.0); PLATELET COUNT, AUTOMATED 155 10^3/uL (150-450); RED BLOOD COUNT 3.38 10^6/uL (4.30-6.10); WHITE BLOOD COUNT 17.4 10^3/uL (4.0-10.0)
[2020-11-22 04:28] LABS: INR 4.53; PROTHROMBIN TIME 43.1 SECONDS (12.7-14.5)
[2020-11-22 04:55] LABS: CALCIUM LEVEL 8.5 MG/DL (8.8-10.2); CREATININE FOR GFR 1.78 MG/DL (0.70-1.30); GLOMERULAR FILTRATION RATE 39.4 (>42); MAGNESIUM LEVEL 2.3 MG/DL (1.8-2.4); POTASSIUM SERUM 3.5 MEQ/L (3.5-5.1)
[2020-11-22] MEDS: TIOTROPIUM INHALER/CAPSULE (SPIRIVA) INH SCH (08:23)
[2020-11-22] MEDS: ADVAIR HFA 115/21MCG INHALER INH SCH ×2 (08:23→19:28)
[2020-11-22 08:33] VITALS: BP 131/60
[2020-11-22] MEDS: OMEPRAZOLE 20 MG CAP PO SCH ×2 (08:48→20:47)
[2020-11-22] MEDS: bisoproloL fumarate 5 MG TAB PO SCH (08:49)
[2020-11-22] MEDS: FERROUS SULFATE 325MG TAB PO SCH (08:49)
[2020-11-22] MEDS: SINEMET 25-100 MG TAB PO SCH ×3 (08:49→20:47)
[2020-11-22] MEDS: oxyBUTYnin 5 MG TAB PO SCH ×2 (08:49→20:48)
[2020-11-22] MEDS ORDERED: CALCITRIOL 0.25 MCG CAP (S0169) PO SCH (09:00)
--- NOTE | 2020-11-22 09:09 | IPNPDOC ---
Text Note Date of Service The patient was seen on 11/22/20. NOTE S: Pt seen and examined at bedside. Reports improved sx overall w/out complaints or concerns. Denies urinary and stool incontinence. Reports improved scrotal distension. Denies chest pain, SOB, cough, abd pain, n/v. Denies dysuria. Pt interested in going home soon. O: GEN: NAD, sitting up in bed HEENT: NC/AT, EOMI, nares patent, moist mucous membranes CARDIO: normal heart sounds, irregular rhythm, regular rate, mechanical valve PULM: CTA b/l, no WRR, no accessory muscles used ABD: soft, nontender, nondistended : nondisteded scrotal area EXTREMITIES: hematoma ant RLE unchanged w/out surrounding signs of infxn, b/l LE 2+ pitting edema, chronic venous stasis IMAGING: Vascular US 11/20: No evidence of DVT of the right lower extremity. Extremity US 11/20: There is a complex hypoechoic mass in the area of concern measuring 3.9 x 2.4 x 2.3 cm - consistent with a hematoma CXR 11/20: 1. Bibasilar atelectasis or scarring not significantly changed. 2. Cardiomegaly and pulmonary venous hypertension without congestive heart failure. 3. Status post median sternotomy and CABG surgery. Lumbar MRI 11/20: 1. Limited examination of the lumbar spine 2. Mild degenerative changes of the lumbar spine. No cauda equina compression. Scrotal US 11/20: 1. Large right inguinal hernia containing fluid. 2. Large right hydrocele. 3. Left varicocele. 4. Cyst in the head of the right epididymis. 5. 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 A/P: 80M PMH Parkinson's, CAD s/p CABG, Mechanical AVR (on Warfarin), HTN, COPD, CKD3, Iron deficiency, GERD w/ improved stool and urinary incontinence and unco mplicated UTI on Vancomycin day2, Zosyn day2. Fever / Urinary frequency - likely 2/2 UTI - Leukocytosis trending down (26.4 on 11/21 to 17.4 on 11/22) - CRP trending up (23.0) - Urine cx (11/20) +E.coli - Blood cx (11/20) +gram neg rods - Blood cx (11/21) pending - Will start Augmentin; Will d/c Vancomycin and Zosyn Stool incontinence / Urinary frequency- improved - Imaging noted above; no evidence of Cauda equina Generalized weakness - c/w PT and OT; may require rehab RLE hematoma- unchanged - Will continue to follow H&H - Will ensure INR stays within therapeutic range CKD3- stable - Baseline Cr of ~1.5 - Will continue to follow Cr - Will avoid nephrotoxic medications - Follows with Nephrology as an outpatient Parkinson's - c/w Carbidopa / Levodopa CAD s/p CABG - Currently not on any anti-platelet therapy - c/w Bisoprolol - Warfarin on Hold (re: INR 4.53) Mechanical AVR -INR supra-therapeutic (4.53) -Hold Warfarin pending therapeutic INR Pulmonary HTN / Right sided heart failure - BNP 5848 - ECHO 06/2020: Moderately severe pulmonary HTN - Spironolactone / Torsemide on hold; consider resuming, pending Cr return to baseline HTN- well controlled - c/w Bisoprolol DLP - c/w Atorvastatin COPD - c/w inhaled therapy as ordered Overactive bladder - c/w Oxybutynin Iron deficiency - c/w Ferrous sulfate GERD - c/w Omeprazole DVT prophylaxis - Hold Warfarin- INR supra-therapeutic (4.53) DISPO: pending PT/OT eval OOB w/ nurse assist Regular diet VS,Fishbone, I+O VS, Fishbone, I+O Laboratory Tests 11/22/20 04:02 Vital Signs Date Time Temp Pulse Resp B/P (MAP) Pulse Ox O2 Delivery O2 Flow Rate FiO2 11/22/20 08:33 98.0 84 20 131/60 (83) 93 Room Air I&O- Last 24 Hours up to 6 AM 11/22/20 05:59 Intake Total 2730 ml Output Total 1750 ml Balance 980 ml GME ATTESTATION GME ATTESTATION My faculty preceptor for this patient encounter was physically present during the encounter and was fully available. All aspects of the patient interview, examination, medical decision making process, and medical care plan development were reviewed and approved by the faculty preceptor. The faculty preceptor is aware and concurs with the plan as stated in the body of this note and will attest to such by his/her cosignature. ATTENDING NOTE I, Arlene Madison, have independently examined this patient and performed my own physical exam, as well as reviewed the documentation and edited where necessary. I have discussed in detail with the resident / student the findings and plan of treatment as documented by the resident / student and edited their note. I agree with their findings and treatment plan and have edited their documentation. I will continue to follow the patient during this hospital stay. Martha Duncan DO Nov 22, 2020 09:09 ARLENE MADISON MD Nov 22, 2020 14:13
[2020-11-22] MEDS: AUGMENTIN 500 MG TAB PO SCH ×2 (10:11→20:46)
[2020-11-22 11:58] VITALS: BP 121/60
[2020-11-22 16:05] VITALS: BP 118/58
[2020-11-22 20:05] VITALS: BP 132/62
[2020-11-22] MEDS: ATORVASTATIN 20 MG TAB PO SCH (20:47)
[2020-11-22] MEDS: FOLIC ACID 1 MG TAB PO SCH (20:47)
[2020-11-23 00:05] VITALS: BP 129/60
[2020-11-23 04:05] VITALS: BP 135/65
[2020-11-23 04:08] LABS: BASO % 0.4 % (0.0-1.0); EOS # 0.1 10^3/uL (0.0-0.5); EOS % 1.5 % (0.0-3.0); HEMATOCRIT 31.7 % (42.0-52.0); HEMOGLOBIN 10.5 g/dl (13.5-17.5); LYMPH # 0.3 10^3/uL (1.5-5.0); LYMPH % 3.4 % (24.0-44.0); MEAN CORPUSCULAR HEMOGLOBIN 34.1 pg (27.0-33.0); MEAN CORPUSCULAR HGB CONC 33.1 g/dl (32.0-36.5); MEAN CORPUSCULAR VOLUME 102.9 fl (80.0-96.0); MONO # 1.3 10^3/uL (0.0-0.8); MONO % 13.2 % (2.0-8.0); NEUTROPHILS # 7.8 10^3/uL (1.5-8.5); NEUTROPHILS % 80.9 % (36.0-66.0); PLATELET COUNT, AUTOMATED 152 10^3/uL (150-450); RED BLOOD COUNT 3.08 10^6/uL (4.30-6.10); WHITE BLOOD COUNT 9.6 10^3/uL (4.0-10.0)
[2020-11-23 04:20] LABS: INR 3.49; PROTHROMBIN TIME 35.3 SECONDS (12.7-14.5)
[2020-11-23 04:42] LABS: CALCIUM LEVEL 8.2 MG/DL (8.8-10.2); CREATININE FOR GFR 1.51 MG/DL (0.70-1.30); GLOMERULAR FILTRATION RATE 47.7 (>42); MAGNESIUM LEVEL 2.6 MG/DL (1.8-2.4); POTASSIUM SERUM 3.2 MEQ/L (3.5-5.1)
[2020-11-23] MEDS: POTASSIUM CHLORIDE 10% LIQ 20 MEQ/15 ML UDC PO SCH ×2 (06:32→08:08)
[2020-11-23] MEDS: TIOTROPIUM INHALER/CAPSULE (SPIRIVA) INH SCH (07:26)
[2020-11-23] MEDS: ADVAIR HFA 115/21MCG INHALER INH SCH (07:26)
[2020-11-23 08:00] VITALS: BP 107/56
[2020-11-23] MEDS: oxyBUTYnin 5 MG TAB PO SCH (08:08)
[2020-11-23 08:09] VITALS: BP 110/56
[2020-11-23] MEDS: FERROUS SULFATE 325MG TAB PO SCH (08:09)
[2020-11-23] MEDS: bisoproloL fumarate 5 MG TAB PO SCH (08:09)
[2020-11-23] MEDS: SINEMET 25-100 MG TAB PO SCH (08:10)
[2020-11-23] MEDS: AUGMENTIN 500 MG TAB PO SCH (08:10)
[2020-11-23] MEDS: OMEPRAZOLE 20 MG CAP PO SCH (08:10)
[2020-11-23] MEDS ORDERED: META0.52 PO (11:34)
[2020-11-23] MEDS ORDERED: ACET1TAB55 PO (11:34)
[2020-11-23] MEDS ORDERED: AMOX500T2 PO (11:34)
[2020-11-23 12:09] LABS: CALCIUM LEVEL 8.4 MG/DL (8.8-10.2); CREATININE FOR GFR 1.34 MG/DL (0.70-1.30); GLOMERULAR FILTRATION RATE 54.7 (>42)
[2020-11-23 12:38] VITALS: BP 116/56
--- NOTE | 2020-11-23 14:40 | DS.PDOC ---
Discharge Summary General Date of Admission Nov 20, 2020 at 18:53 Date of Discharge 11/23/20 Attending Physician: ERROL CHAVEZ MD Discharge Summary PROCEDURES PERFORMED DURING STAY: None ADMITTING DIAGNOSES: 1. urinary and stool incontinence, UTI DISCHARGE DIAGNOSES: 1. urinary and stool incontinence, UTI COMPLICATIONS/CHIEF COMPLAINT: Weakness,Fever. HISTORY OF PRESENT ILLNESS: Ronal is 80M PMH Parkinson's, CAD s/p CABG, s/p mechanical valve replacement on warfarin, CKD who presented to ED w/ urinary and stool incontinence that began about 1wk ago and had been worsening. He was seen and evaluated in [facility] ED 11/17 for urinary frequency. Labs during that visit were normal, UA wnl, and pt discharged w/ recommendations in regards to lasix compliance. On current evaluation, he reported urinary frequency w/ incontinence and stool incontinence. He reported being incontinent without realizing he has soiled himself, rather than having a functional barrier. Described stool as formed, soft, w/out blood, w/out foul odor. Denied changes in diet. His reported abd and scrotum distension. Reported progressive visual changes, worsening generalized weakness w/out numbness/tingling or loss of sensation. Reported chronic low back pain w/out hx back surgery, trauma. Denied hx neuropathy. Denied fevers/chills, unintentional weight changes, chest pain, palpitations, SOB, cough. Denied abd pain, n/v, hematuria, penile discharge, hematochezia, changes in stool quality. Labs in ED significant for WBC 19.2, ESR 70, K+ 3.3, BUN 43, Cr 1.54, CRP 5.57, BNP 3155, INR 3.94. UA in ED significant for 3+ LE, 1+ bacteria; Urine cx +E. coli. Lumbar MRI negative for cauda equina. Other imaging in ED noted below. HOSPITAL COURSE: Pt started on Zosyn and Vancomycin for UTI, pending blood cx results. Pt found to have supratherapeutic INR and Warfarin was held, pending I NR return to therapeutic range. BUN and Cr elevated, and pt's torsemide and spironolactone held. Pt found to have large right fluid-filled inguinal hernia, large right hydrocele, and left varicocele on scrotal u/s. Pt reported improvement in scrotal distension w/out intervention. His urinary incontinence was managed w/ condom catheter. Pt reported improved urinary and stool incontinence and remained afebrile. Pt transitioned from Zosyn and Vancomycin to Augmentin for abx coverage. Pt's INR 3.49 and warfarin was resumed. PT evaluated him and recommended home w/ services. Upon d/c, BUN/Cr remain elevated but (most likely) at his baseline and pt's torsemide and spironolactone were not resumed. Pt advised f/u w/ nephrology for recommendations w/ regards to diuretic use. Pt reported continued urinary and stool incontinence and advised to f/u for chronic sx w/ PCP. DISCHARGE MEDICATIONS: Please see below. ALLERGIES: Please see below. PHYSICAL EXAMINATION ON DISCHARGE: VITAL SIGNS: Please see below. GENERAL: sitting up in bed, alert and awake, NAD HEENT: NC/AT, EOMI, nares patent, dry mucous membranes NECK: supple, no lymphadenopathy CARDIOVASCULAR EXAMINATION: mechanical valve, irregularly irregular rhythm, regular rate, no MRG RESPIRATORY EXAMINATION: CTA b/l, no WRR, no accessory muscles used ABDOMINAL EXAMINATION: hypoactive BS, soft, nontender, nondistended EXTREMITIES: no edema, normal ROM SKIN: hematoma ant RLE (closed, stable), chronic venous stasis changes b/l LE, no new rashes/abrasions/wounds NEUROLOGICAL EXAMINATION: no FND, parkinsonian facies PSYCHIATRIC EXAMINATION: AOx3, normal mood, flat affect LABORATORY DATA: Please see below. IMAGING: Vascular US 11/20: No evidence of DVT of the right lower extremity. Extremity US 11/20: There is a complex hypoechoic mass in the area of concern measuring 3.9 x 2.4 x 2.3 cm - consistent with a hematoma CXR 11/20: 1. Bibasilar atelectasis or scarring not significantly changed. 2. Cardiomegaly and pulmonary venous hypertension without congestive heart failure. 3. Status post median sternotomy and CABG surgery. Lumbar MRI 11/20: 1. Limited examination of the lumbar spine 2. Mild degenerative changes of the lumbar spine. No cauda equina compression. Scrotal US 11/20: 1. Large right inguinal hernia containing fluid. 2. Large right hydrocele. 3. Left varicocele. 4. Cyst in the head of the right epididymis. 5. 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 PROGNOSIS: good ACTIVITY: As tolerated w/ assist DIET: regular diet, fluid restriction pending diuretic resumption DISCHARGE PLAN: Home w/ PT services F/u Nephrology 1-2wks F/u PCP 1-2wks DISPOSITION: home w/ services DISCHARGE INSTRUCTIONS: 1. F/u nephrology, 1-2wks 2. F/u PCP, 1-2wks ITEMS TO FOLLOWUP ON ON OUTPATIENT: 1. Nephrology- resumption spironolactone and torsemide, pending BUN/Cr 2. PCP- management of chronic urinary and stool incontinence DISCHARGE CONDITION: Stable TIME SPENT ON DISCHARGE: 20 minutes. Vital Signs/I&Os Vital Signs Date Time Temp Pulse Resp B/P (MAP) Pulse Ox O2 Delivery O2 Flow Rate FiO2 11/23/20 08:09 75 110/56 11/23/20 08:00 97.5 18 94 Room Air I&O- Last 24 Hours up to 6 AM 11/23/20 05:59 Intake Total 1320 ml Output Total 1425 ml Balance -105 ml Laboratory Data Labs 24H Laboratory Tests 2 11/23/20 03:57: Immature Granulocyte % (Auto) 0.6, Neutrophils (%) (Auto) 80.9H, Lymphocytes (%) (Auto) 3.4L, Monocytes (%) (Auto) 13.2H, Eosinophils (%) (Auto) 1.5, Basophils (%) (Auto) 0.4, Neutrophils # (Auto) 7.8, Lymphocytes # (Auto) 0.3L, Monocytes # (Auto) 1.3H, Eosinophils # (Auto) 0.1, Basophils # (Auto) 0.0, Nucleated Red Blood Cells % (auto) 0.0, Prothrombin Time 35.3H, Prothromb Time International Ratio 3.49, Anion Gap 5L, Glomerular Filtration Rate 47.7, Calcium Level 8.2L, Magnesium Level 2.6H, C-Reactive Protein, Quantitative 17.00H 11/23/20 10:59: CBC/BMP Laboratory Tests 11/23/20 03:57 Microbiology Microbiology 11/21/20 Blood Culture - Preliminary, Resulted No Growth after 48 hours. All Specime... 11/21/20 Blood Culture - Preliminary, Resulted No Growth after 48 hours. All Specime... 11/20/20 Blood Culture - Final, Complete Escherichia Coli 11/20/20 Urine Culture - Final, Complete Escherichia Coli 11/20/20 Blood Culture - Preliminary, Resulted No Growth after 72 hours. All specime... Discharge Medications Scheduled Amoxicillin/Potassium Clav (Amox-Clav 500-125 mg Tablet) 1 Each Tablet, 500 MG PO Q12H Atorvastatin Calcium (Atorvastatin Calcium) 20 Mg Tablet, 20 MG PO QHS, (Reported) Bisoprolol Fumarate (Bisoprolol Fumarate) 5 Mg Tablet, 5 MG PO DAILY, (Reported) Calcitriol (Calcitriol) 0.25 Mcg Capsule, 0.25 MCG PO 3XW, (Reported) SUN, SUN, FRI Calcium Carbonate/Vitamin D3 (Calcium 600-Vit D3 400 Tablet) 1 Tab Tab, 1 TAB PO DAILY, (Reported) Carbidopa/Levodopa (Carbidopa-Levodopa 25-100 Tab) 1 Each Tablet, 1.5 TAB PO TID, (Reported) Ferrous Sulfate (Ferrous Sulfate) 325 Mg Tab, 325 MG PO DAILY, (Reported) Folic Acid (Folic Acid) 1 Mg Tab, 1 MG PO QPM, (Reported) Multivit-Minerals/FA/Lycopene (One Daily For Men Tablet) 1 Each Tablet, 1 TAB PO DAILY, (Reported) Omeprazole (Omeprazole) 40 Mg Capsule.dr, 40 MG PO BID, (Reported) Oxybutynin Chloride (Oxybutynin Chloride) 5 Mg Tablet, 2.5 MG PO BID, (Reported) Polyethylene Glycol 3350 (Miralax) 1 Pow Pow, 17 GM PO DAILY, (Reported) MIX WITH WATER OR JUICE Potassium Chloride (Potassium Chloride) 10 Meq Tab.er.prt, 10 MEQ PO BID, (Reported) Psyllium Husk (Metamucil) 0.4 Gm Capsule, 1 CAP PO BID Salmeterol/Fluticasone (Advair 250-50 Diskus) 1 Each Blst.w.dev, 1 PUFF INH BID, (Reported) Tiotropium Gibson (Spiriva Respimat) 4 Gm Mist.inhal, 1 PUFF INH DAILY, (Reported) Ubidecarenone (Co Q-10) 200 Mg Capsule, 200 MG PO DAILY, (Reported) Warfarin Sodium (Warfarin Sodium) 3 Mg Tablet, 6 MG PO 6XWK, (Reported) Sun,Mon, , Sun,Sun, Sat Warfarin Sodium (Warfarin Sodium) 5 Mg Tablet, 5 MG PO 1XWK, (Reported) Thur allopurinoL (allopurinoL) 300 Mg Tablet, 300 MG PO DAILY, (Reported) Scheduled PRN Acetaminophen (Acetaminophen) 325 Mg Tablet, 650 MG PO Q6HP PRN for MILD PAIN or TEMP > 101 Albuterol Sulfate (Proair Hfa) 8.5 Gm Hfa.aer.ad, 2 PUFF INH Q4H PRN for SOB/ WHEEZING, (Reported) Carboxymethylcellulose Sodium (Refresh Tears) 0.5 % Aramis, 1 DROP OU DAILY PRN for DRY EYES, (Reported) Fluticasone Propionate (Flonase Allergy Relief) 50 Mcg/Act Spr, 1 SPRAY NARES DAILY PRN for NASAL CONGESTION, (Reported) Nitroglycerin (Nitroglycerin) 0.4 Mg Tab.subl, 0.4 MG SL NITRO PRN for CHEST PAIN, (Reported) Allergies Coded Allergies: No Known Allergies (Unverified , 09/16/20) GME ATTESTATION My faculty preceptor for this patient encounter was physically present during the encounter and was fully available. All aspects of the patient interview, examination, medical decision making process, and medical care plan development were reviewed and approved by the faculty preceptor. The faculty preceptor is aware and concurs with the plan as stated in the body of this note and will attest to such by his/her cosignature. ATTENDING NOTE I personally examined the patient and discussed the investigative findings and plan with the resident and agree with the summary and plan as detailed above. Briefly, Mr. Roy is a 80M with Parkinson's, CAD s/p CABG, s/p mechanical valve replacement on warfarin and CKD who presented to ED w/ urinary and stool incontinence with noted scrotal swelling and was found to have a UTI a pansensitive E.coli UTI for which he was treated and will be completing an antibiotic course at home as well as an AMINA for which his diuretics were held with improvement with notification of nephrology where he will be seen in the outpatient setting shortly after discharge and will otherwise return to his GP for continued evaluation of his incontinence. Martha Duncan DO Nov 23, 2020 14:40 ERROL CHAVEZ MD Nov 24, 2020 07:20
== END 2020-11-23 16:37 | disposition home health service (06) | DRG 690 ==
LOC: M ED 10:23 → M ED INP 18:53 → ENRESERVDT 19:44 → ENRESERVTM 19:44 → M PCU 20:10
PROVIDERS: ADMIT Internal Medicine; ATTEND Internal Medicine
DX: N39.0 Urinary tract infection, site not specified (principal); G20 Parkinson's disease; I25.10 Atherosclerotic heart disease of native coronary artery without angina pectoris; I12.9 Hypertensive chronic kidney disease with stage 1 through stage 4 chronic kidney disease, or unspecified chronic kidney disease; Z95.5 Presence of coronary angioplasty implant and graft; J44.9 Chronic obstructive pulmonary disease, unspecified; K21.9 Gastro-esophageal reflux disease without esophagitis; N18.30 Chronic kidney disease, stage 3 unspecified; Z87.891 Personal history of nicotine dependence; E61.1 Iron deficiency; S80.11XA Contusion of right lower leg, initial encounter; Z79.01 Long term (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 of anticoagulants; Z20.822 Contact with and (suspected) exposure to COVID-19; Z66 Do not resuscitate; Z79.899 Other long term (current) drug therapy; R15.9 Full incontinence of feces; I27.29 Other secondary pulmonary hypertension; N32.81 Overactive bladder; X58.XXXA Exposure to other specified factors, initial encounter; Y92.9 Unspecified place or not applicable

== ENCOUNTER 2020-11-26 23:46 | Emergency (ER) | payer MEDICARE ==
[~2020-11-26] VITALS: Ht 182.9 cm; Wt 116.0 kg
[~2020-11-26 23:46] MED LIST changes: +ACET1TAB55 PO; +AMOX500T2 PO; +CALC1CAP31 PO; -CALC1TAB8 PO; +CALC600T67 PO; +LOSA25TA13 PO; -LOSA25TA14 PO; +LOSA50TA28 PO; -LOSA50TA88 PO; +META0.52 PO; -OMEP-221 PO; +OMEP40CA5 PO
[2020-11-27 01:38] LABS: BASO # 0.1 10^3/uL (0.0-0.2); BASO % 0.3 % (0.0-1.0); EOS # 0.1 10^3/uL (0.0-0.5); EOS % 0.2 % (0.0-3.0); HEMOGLOBIN 11.9 g/dl (13.5-17.5); LYMPH # 0.5 10^3/uL (1.5-5.0); LYMPH % 2.5 % (24.0-44.0); MEAN CORPUSCULAR HEMOGLOBIN 34.1 pg (27.0-33.0); MEAN CORPUSCULAR HGB CONC 33.1 g/dl (32.0-36.5); MEAN CORPUSCULAR VOLUME 103.2 fl (80.0-96.0); MONO # 1.8 10^3/uL (0.0-0.8); MONO % 8.4 % (2.0-8.0); NEUTROPHILS # 18.6 10^3/uL (1.5-8.5); NEUTROPHILS % 87.1 % (36.0-66.0); PLATELET COUNT, AUTOMATED 203 10^3/uL (150-450); RED BLOOD COUNT 3.49 10^6/uL (4.30-6.10)
[2020-11-27 02:01] LABS: WHITE BLOOD COUNT 21.3 10^3/uL (4.0-10.0)
[2020-11-27 02:15] LABS: CALCIUM LEVEL 8.4 MG/DL (8.8-10.2); CREATININE FOR GFR 1.4 MG/DL (0.70-1.30); INR 2.42; POTASSIUM SERUM 4.9 MEQ/L (3.5-5.1); PROTHROMBIN TIME 26.7 SECONDS (12.7-14.5)
[2020-11-27 02:17] LABS: RSV AMPLIFICATION NEGATIVE (NEGATIVE)
[2020-11-27 03:57] VITALS: BP 152/64
== END 2020-11-27 04:05 | disposition short-term general hospital (02) ==
LOC: M ED 23:46
DX: I62.00 Nontraumatic subdural hemorrhage, unspecified (principal); T45.515A Adverse effect of anticoagulants, initial encounter; G20 Parkinson's disease; Z95.4 Presence of other heart-valve replacement; I51.7 Cardiomegaly; I48.91 Unspecified atrial fibrillation; I45.9 Conduction disorder, unspecified; I25.10 Atherosclerotic heart disease of native coronary artery without angina pectoris; I10 Essential (primary) hypertension; N18.9 Chronic kidney disease, unspecified; J44.9 Chronic obstructive pulmonary disease, unspecified; K21.9 Gastro-esophageal reflux disease without esophagitis; Z95.1 Presence of aortocoronary bypass graft; Z87.891 Personal history of nicotine dependence; Z79.01 Long term (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 of anticoagulants; Z79.899 Other long term (current) drug therapy